=== PATIENT | female | born 1955 | race Caucasian/White ===

== ENCOUNTER 2016-10-14 13:31 | Inpatient (IN) ==
[2016-10-14] MEDS ORDERED: methylPREDNISolone 125 MG/2 ML VIAL IVP ONE (14:06)
[2016-10-14] MEDS ORDERED: Ipratropium/Albuterol Neb 3 ML IH ONE (14:06)
--- NOTE | 2016-10-14 14:07 | Emergency Department Note ---
Disposition Clinical Impression: Acute exacerbation of chronic obstructive airways disease, Hilar mass Disposition: Admitted As Inpatient Referrals: Lilibeth Templeton CNP [Primary Care Provider] - Forms: ED Satisfaction Letter SOB HPI - General Chief Complaint: ED Shortness of Breath/Dyspnea Stated Complaint: NOHELIA Time Seen by Provider: 10/14/16 13:41 Source: patient Limitations: no limitations Nursing Notes Reviewed: Yes Vital Signs Reviewed: Yes - History of Present Illness Patient is a 60-year-old female with a history of severe COPD chronic oxygen dependency is coming in for increased shortness of breath. She has had multiple episodes of acute bronchitis this year already she recently saw her PCP a week ago. She has oxygen at home nebulizer she still complaining of wheezing and shortness of breath. She has difficulty ambulating due to the dyspnea. She does continue to smoke minimally. She follows with pulmonology Dr. Corbin. She denies any fevers chills or productive sputum or hemoptysis. Nebulizers and rest oxygen all help exertion makes symptoms worse - Related Data Home Medications Medication Instructions Recorded Confirmed Cymbalta 02/15/16 02/15/16 TraZODone 02/15/16 Melatonin 05/02/16 Previous Rx's Medication Instructions Recorded Albuterol Neb [Proventil Neb] 2.5 mg IH QID 2 Days 05/02/16 Albuterol Sulfate [Albuterol 2 puff IH QID 2 Days 05/02/16 Inhaler] Levofloxacin [Levaquin] 750 mg PO DAILY #10 tablet 05/02/16 levoFLOXacin [Levaquin] 500 mg PO DAILY #7 tablet 05/22/16 predniSONE [PredniSONE] 20 mg PO TID #20 tablet 05/22/16 HYDROcodone/Acet 5/325 mg [Coldiron 1 - 2 tab PO Q6H PRN #15 tab 09/23/16 5-325 mg] Allergies Allergy/AdvReac Type Severity Reaction Status Date / Time No Known Allergies Allergy Verified 10/14/16 13:33 All systems ED: reviewed and negative except as stated. Constitutional: Reports: weakness. Denies: fever, chills Respiratory: Reports: dyspnea Past Medical History - Past Medical History Source: patient, old records reviewed, obtained from family, nursing notes reviewed Medical history: Reports: COPD Psychiatric history: Reports: anxiety, depression - Social History Smoking Status: Current every day smoker Smokeless Tobacco Status: No Alcohol use: Reports: none Drug use: Reports: none Physical Exam - General Limitations: no limitations General appearance: alert - Head Head exam: atraumatic, normocephalic, normal inspection - Eye Eye exam: Present: normal appearance, PERRL, EOMI - Expanded Eye Exam Pupils: Left: reactive - ENT ENT exam: normal exam, normal oropharynx, mucous membranes moist - Expanded ENT Exam External ear exam: Present: normal external inspection Mouth exam: Present: normal external inspection Teeth exam: Present: normal inspection Throat exam: Present: normal inspection - Neck Neck exam: Present: normal inspection, full ROM, trachea midline - Chest Chest inspection: Present: normal inspection, symmetric chest wall rise - Respiratory Respiratory exam: Present: respiratory distress (Mild tachypneic), wheezes ( Standard end expiratory), accessory muscle use, prolonged expiratory phase - Cardiovascular Cardiovascular exam: Present: regular rate, normal rhythm, normal heart sounds - Abdominal Exam Abdominal exam: Present: soft, Non-Tender. Absent: tenderness, distention, guarding, rebound, rigidity - Extremities Exam Extremities exam: Present: normal inspection, full ROM. Absent: tenderness, pedal edema - Expanded Upper Extremity Exam Shoulder exam: Present: normal inspection, full ROM Arm exam: Present: normal inspection, full ROM Elbow exam: Present: normal inspection, full ROM Forearm/Wrist exam: Present: normal inspection, full ROM Hand exam: Present: normal inspection, full ROM Vascular exam: Normal: capillary refill, radial pulse - Expanded Lower Extremity Exam Hip/Pelvis exam: Present: normal inspection, full ROM Upper leg exam: Present: normal inspection, full ROM Knee exam: Present: normal inspection, full ROM Lower leg exam: Present: normal inspection, full ROM Ankle exam: Present: normal inspection, full ROM Foot/toe exam: Present: normal inspection, full ROM Neurovascular/Tendon exam: Absent: motor deficit, sensory deficit, tendon deficit - Back Exam Back exam: Present: normal inspection, full ROM. Absent: tenderness - Neurological Exam Neurological exam: Present: alert, oriented X3 - Expanded Neurological Exam Patient oriented to: Present: person, place, time Coma Scale Eye Opening: Spontaneous Coma Scale Motor Response: Obeys Commands Coma Scale Verbal Response: Oriented Coma Scale Total: 15 - Psychiatric Psychiatric exam: Present: normal affect, normal mood - Skin Skin exam: Present: warm, dry, intact, normal color Course - Reevaluation(s) Reevaluation #1: Patient has a moderate response to nebulizers she is resting more comfortable at this time she is not And is able to speak in full sentences. He reviewed her CT scan for lung cancer screening 01/16/2016 which was negative. She had a persistent area in the right hilum. A CT scan today which does show a mass. I discussed with the patient this will need a biopsy. Time: 16:00 Vital Signs Temperature 98.2 F 10/14/16 13:33 Pulse Rate 106 10/14/16 13:33 Respiratory Rate 20 10/14/16 13:33 Blood Pressure 139/75 10/14/16 13:33 O2 Sat by Pulse Oximetry 95 10/14/16 13:33 Temperature 98.2 F 10/14/16 13:33 Pulse Rate 106 10/14/16 13:33 Respiratory Rate 24 10/14/16 14:14 Blood Pressure 164/94 10/14/16 14:14 O2 Sat by Pulse Oximetry 97 10/14/16 14:14 Oxygen Delivery Oxygen Delivery Room Air Shortness of Breath/Dyspnea - Lab Data Result diagrams: 10/14/16 14:26 10/14/16 14:26 Lab Results 10/14/16 10/14/16 10/14/16 Range/Units 14:26 14:26 14:26 WBC 15.5 H (4.3-11.1) K/mcL RBC 4.49 (3.82-4.97) M/mcL Hgb 13.3 (11.5-15.4) g/dL Hct 39.4 (35.3-44.9) % MCV 87.8 (83.0-100.0) fL MCH 29.6 (28.0-33.3) pg MCHC 33.8 (31.6-35.5) g/dL RDW 12.6 (11.5-14.5) % Plt Count 393 (140-400) K/mcL MPV 8.7 L (9.4-12.4) fL Immature Gran % 0.4 (0-4) % Seg Neutrophils % 67.8 % Lymphocytes % 23.7 % Monocytes % 7.0 % Eosinophils % 1.0 % Basophils % 0.1 % Neutrophils # 10.5 H (1.6-8.9) K/mcL Lymphocytes # 3.7 (0.6-4.6) K/mcL Monocytes # 1.1 (0.0-1.3) K/mcL Eosinophils # 0.2 (0.0-0.6) K/mcL Basophils # 0.0 (0.0-0.2) K/mcL Immature Plt Fraction 2.1 (1.1-6.1) % PT 10.1 (9.4-12.1) Seconds INR 0.9 APTT 22.9 L (26.0-36.0) Seconds Sodium 127 L (136-145) mEq/L Potassium 3.3 L (3.5-4.5) mEq/L Chloride 93 L (98-109) mEq/L Carbon Dioxide 25 (19-29) mEq/L BUN 7 (7-20) mg/dL Creatinine 0.64 (0.57-1.11) mg/dL Est GFR ( Amer) > 60 (> 60) Est GFR (Non-Af Amer) > 60 (> 60) BUN/Creatinine Ratio 11 (6-26) Glucose 95 (70-99) mg/dL Calculated Osmolality 262 L (280-300) Lactic Acid (0.5-2.2) mmol/L Calcium 8.8 (8.6-10.8) mg/dL Troponin I (0-0.03) ng/mL B-Natriuretic Peptide (0-100) pg/mL 10/14/16 10/14/16 10/14/16 Range/Units 14:26 14:26 14:26 WBC (4.3-11.1) K/mcL RBC (3.82-4.97) M/mcL Hgb (11.5-15.4) g/dL Hct (35.3-44.9) % MCV (83.0-100.0) fL MCH (28.0-33.3) pg MCHC (31.6-35.5) g/dL RDW (11.5-14.5) % Plt Count (140-400) K/mcL MPV (9.4-12.4) fL Immature Gran % (0-4) % Seg Neutrophils % % Lymphocytes % % Monocytes % % Eosinophils % % Basophils % % Neutrophils # (1.6-8.9) K/mcL Lymphocytes # (0.6-4.6) K/mcL Monocytes # (0.0-1.3) K/mcL Eosinophils # (0.0-0.6) K/mcL Basophils # (0.0-0.2) K/mcL Immature Plt Fraction (1.1-6.1) % PT (9.4-12.1) Seconds INR APTT (26.0-36.0) Seconds Sodium (136-145) mEq/L Potassium (3.5-4.5) mEq/L Chloride (98-109) mEq/L Carbon Dioxide (19-29) mEq/L BUN (7-20) mg/dL Creatinine (0.57-1.11) mg/dL Est GFR ( Amer) (> 60) Est GFR (Non-Af Amer) (> 60) BUN/Creatinine Ratio (6-26) Glucose (70-99) mg/dL Calculated Osmolality (280-300) Lactic Acid 0.7 (0.5-2.2) mmol/L Calcium (8.6-10.8) mg/dL Troponin I 0.00 (0-0.03) ng/mL B-Natriuretic Peptide 15 (0-100) pg/mL
[2016-10-14 14:38] LABS: Basophils % 0.1 %; Eosinophils # 0.2 K/mcL (0.0-0.6); Hematocrit 39.4 % (35.3-44.9); Hemoglobin 13.3 g/dL (11.5-15.4); Immature Granulocytes % 0.4 % (0-4); Immature Platelets 2.1 % (1.1-6.1); Lymphocytes # 3.7 K/mcL (0.6-4.6); Lymphocytes % 23.7 %; Mean Corpuscular HGB Conc 33.8 g/dL (31.6-35.5); Mean Corpuscular Hemoglobin 29.6 pg (28.0-33.3); Mean Corpuscular Volume 87.8 fL (83.0-100.0); Mean Platelet Volume 8.7 fL (9.4-12.4); Monocytes # 1.1 K/mcL (0.0-1.3); Neutrophils # 10.5 K/mcL (1.6-8.9); Platelet Count 393 K/mcL (140-400); Red Blood Count 4.49 M/mcL (3.82-4.97); Red Cell Distribution Width 12.6 % (11.5-14.5); Segmented Neutrophils % 67.8 %
[2016-10-14 14:42] LABS: INR 0.9; Prothrombin Time 10.1 Seconds (9.4-12.1)
[2016-10-14 14:45] LABS: Activated Partial Thrombo Time 22.9 Seconds (26.0-36.0)
[2016-10-14 14:49] LABS: BUN/Creatinine Ratio 11 (6-26); Blood Urea Nitrogen 7 mg/dL (7-20); Calcium 8.8 mg/dL (8.6-10.8); Carbon Dioxide 25 mEq/L (19-29); Chloride 93 mEq/L (98-109); Glucose 95 mg/dL (70-99); Osmolality,Calculated 262 (280-300); Potassium 3.3 mEq/L (3.5-4.5); Sodium 127 mEq/L (136-145); eGFR For African Americans > 60 (> 60); eGFR For Non-African Americans > 60 (> 60)
[2016-10-14] MEDS ORDERED: Levofloxacin 750 MG/150 ML 750 MG/150 ML BAG IVPB ONE (15:42)
[2016-10-14] MEDS ORDERED: Acetaminophen 325 MG TABLET PO PRN (17:04)
[2016-10-14] MEDS ORDERED: Naloxone 0.4 MG/ML INJ IVP PRN (17:04)
[2016-10-14] MEDS ORDERED: Nicotine 21 MG PATCH.TD24 TD STA (17:21)
--- NOTE | 2016-10-14 17:45 | Internal Med History&Physical ---
<Kylah Salinas M - Last Filed: 10/14/16 19:20> Date of Encounter: 10/14/16 Time of Encounter: 17:43 Assessment and Plan (1) Acute exacerbation of chronic obstructive airways disease Current visit: Yes Status: Acute Patient reports she's been having breathing trouble for several weeks now, and she's been treated with Levaquin for pneumonia as an outpatient. Yesterday she had increased shortness of breath. CXR shows right hilar enlargement progressed from May. CT Chest shows large right hilar mass. WBC elevated at 15.5. On exam, she is tachypnic with increased work of breathing. Solumedrol 125mg IVP given in ED, continue with 60mg IVP TID Levaquin daily duonebs QID albuterol nebulizer Q2hr PRN Budesonide/formotorol BID continue home dose of Spiriva Bipap and titrate O2 to maintain saturation > 92% (2) Acute and chronic respiratory failure Current visit: Yes Status: Acute Patient wears 2L oxygen at night and prn at home, she has increased oxygen requirements, and we are placing her on bipap for her increased work of breathing and tachypnea. ABG does not demonstrate significant abnormality. Treat her COPD exacerbation with steroids, breathing treatments and antibiotics. Titrate oxygen. Qualifiers: Respiratory failure complication: hypoxia Qualified Code(s): J96.21 - Acute and chronic respiratory failure with hypoxia (3) Hyponatremia Current visit: Yes Status: Acute sodium of 127, which is new for her. With new hilar mass seen on CT concern that hyponatremia is caused by malignancy. Will get urine chemistry to further evaluate. (4) Hilar mass Current visit: Yes Status: Acute CXR showed right hilar enlargement progressed from previous study in May. CT of the chest showed large right hilar mass measuring 5.3 x 3.6 concerning for malignancy with subcarinal adenopathy. Consult to pulmonology for possible biopsy, will need to be called in the morning. (5) Smoking Current visit: Yes Status: Acute Patient continues to smoke despite COPD diagnosis. Discussed smoking cessation and offered encouragement. Smoking cessation education and nicotine patch ordered. (6) DVT prophylaxis Current visit: Yes Status: Acute Internal Medicine - H&P: HPI Chief complaint: shortness of breath Admitted From: Emergency Dept Plans for Post Hospital Care: Home History of present illness: Ms. Strausbaugh is a 60 year old female pe, who presents to the emergency department today with worsening shortness of breath. Patient reports she has been having breathing troubles for several weeks now, and despite on nebulizer treatments she continues to feel worse today which prompted her to come to the emergency department. She reports occasional lightheadedness, occasional coughing, not very productive, occasional nausea. She denies any headache, chest pain, palpitations, vomiting, abdominal pain, diarrhea. She reports chills and sweats. Evaluation in emergency department revealed elevated white blood cell count of 15.5. Hyponatremia with sodium of 127 which is new. Lactate was normal at 0.7, troponin was normal 0.00, BNP was normal at 15. Chest x-ray showed right hilar enlargement which has progressed from May. CT of the chest showed large right hilar mass measuring 5.3 x 3.6 concerning for malignancy with subcarinal adenopathy. On exam, patient is tachypneic with increased work of breathing. She is alert and oriented, her lungs have scattered wheezes and rhonchi. Heart has regular rate and rhythm. Abdomen soft nontender positive bowel sounds. No peripheral edema. Past Med Surg Social Fam HX - Past Medical History Medical history: COPD Psychiatric history: anxiety, depression - Social History Smoking Status: Current every day smoker Smokeless Tobacco Status: No Alcohol use: none Drug use: none - Family History Sister Living Status: Still Living Hx Family Cancer: Yes (cervical cancer) Internal Medicine - H&P: Meds DULoxetine [Cymbalta] 30 mg PO HS 02/15/16 [History] Trazodone HCl 200 mg PO HS 02/15/16 [History] Melatonin/Pyridoxine HCl (B6) [Melatonin 3 mg Tablet] 3 mg PO HS 05/02/16 [ History] Albuterol Neb [Proventil Neb] 2.5 mg IH Q6H PRN 10/14/16 [History] Albuterol Sulfate [Albuterol Inhaler] 2 puff IH Q6H PRN 10/14/16 [History] BuPROPion XL (24 HR) [Wellbutrin XL] 150 mg PO DAILY 10/14/16 [History] Budesonide/Formoterol 160/4.5 [Symbicort 160/4.5] 2 puff IH BIDR 10/14/16 [ History] Oxygen 2 l .ROUTE AD 10/14/16 [History] Tiotropium [Spiriva] 18 mcg IH DAILY 10/14/16 [History] 3 Allergy/AdvReac Type Severity Reaction Status Date / Time No Known Allergies Allergy Verified 10/14/16 13:33 All Systems PM: A 10-system review of systems was performed and is negative for pertinent findings except as documented above in the HPI. - Constitutional Constitutional: chills, night sweats, no fever(s) - EENT Eyes: no change in vision, no discharge, no pain, no photophobia Ears: no ear discharge, no ear pain, no tinnitus Nose, mouth and throat: no dysphagia, no nasal discharge, no neck pain, no sore throat - Cardiovascular Cardiovascular ROS IM: dyspnea, lightheadedness, no chest pain, no diaphoresis, no palpitations, no syncope - Respiratory Respiratory: cough, dyspnea, wheezing, no excessive phlegm production - Gastrointestinal Gastrointestinal: nausea, no abdominal pain, no diarrhea, no hematemesis, no hematochezia, no melena, no vomiting - Genitourinary Genitourinary: no change in urinary stream, no dysuria, no flank pain, no hematuria - Musculoskeletal Musculoskeletal ROS IM: no numbness, no tingling - Integumentary Integumentary IM: no rash, no unusual bruising - Neurological Neurological ROS: no confusion, no convulsions, no focal weakness, no numbness, no tingling, no tremor(s) - Hematologic/Lymphatic Hematologic/Lymphatic: no easy bruising - Constitutional Vitals: Temp Pulse Resp BP Pulse Ox 98.2 F 91 18 158/85 93 10/14/16 13:33 10/14/16 16:30 10/14/16 17:13 10/14/16 17:13 10/14/16 16:30 General appearance: Present: mild distress, A&O X 3 - Head Head exam: Present: atraumatic, normocephalic - Eye Eye exam: Present: PERRL, conjuntiva pink, sclera anicteric Pupils: Present: PERRL - Neck Neck exam general surgery: Present: supple, trachea midline. Absent: lymphadenopathy - Respiratory Respiratory exam: Present: accessory muscle use, rhonchi, wheezes, tachypnea. Absent: rales - Cardiovascular Cardiovascular exam: Present: RRR, +S1, +S2. Absent: diastolic murmur, gallop, rubs, systolic murmur - GI/Abdominal GI/Abdominal exam: Present: normal bowel sounds, soft, no peritoneal signs. Absent: distended, tenderness - Extremities Exam Extremities exam: Present: warm, radial pulses palpable and symmetrical. Absent : calf tenderness, cyanotic, pedal edema - Neurological Exam Neurological exam: Present: CN II-XII intact, oriented X3, no focal deficits. Absent: facial droop, speech deficit - Skin Skin exam: Present: dry, intact Internal Med - H&P Results - Labs CBC & Chem 7: 10/14/16 14:26 10/14/16 14:26 Labs: All Lab Results (24 Hours) 10/14/16 10/14/16 10/14/16 Range/Units 14:26 14:26 14:26 WBC 15.5 H (4.3-11.1) K/mcL RBC 4.49 (3.82-4.97) M/mcL Hgb 13.3 (11.5-15.4) g/dL Hct 39.4 (35.3-44.9) % MCV 87.8 (83.0-100.0) fL MCH 29.6 (28.0-33.3) pg MCHC 33.8 (31.6-35.5) g/dL RDW 12.6 (11.5-14.5) % Plt Count 393 (140-400) K/mcL MPV 8.7 L (9.4-12.4) fL Immature Gran % 0.4 (0-4) % Seg Neutrophils % 67.8 % Lymphocytes % 23.7 % Monocytes % 7.0 % Eosinophils % 1.0 % Basophils % 0.1 % Neutrophils # 10.5 H (1.6-8.9) K/mcL Lymphocytes # 3.7 (0.6-4.6) K/mcL Monocytes # 1.1 (0.0-1.3) K/mcL Eosinophils # 0.2 (0.0-0.6) K/mcL Basophils # 0.0 (0.0-0.2) K/mcL Immature Plt Fraction 2.1 (1.1-6.1) % PT 10.1 (9.4-12.1) Seconds INR 0.9 APTT 22.9 L (26.0-36.0) Seconds Sodium 127 L (136-145) mEq/L Potassium 3.3 L (3.5-4.5) mEq/L Chloride 93 L (98-109) mEq/L Carbon Dioxide 25 (19-29) mEq/L BUN 7 (7-20) mg/dL Creatinine 0.64 (0.57-1.11) mg/dL Est GFR ( Amer) > 60 (> 60) Est GFR (Non-Af Amer) > 60 (> 60) BUN/Creatinine Ratio 11 (6-26) Glucose 95 (70-99) mg/dL Calculated Osmolality 262 L (280-300) Lactic Acid (0.5-2.2) mmol/L Calcium 8.8 (8.6-10.8) mg/dL Troponin I (0-0.03) ng/mL B-Natriuretic Peptide (0-100) pg/mL 10/14/16 10/14/16 10/14/16 Range/Units 14:26 14:26 14:26 WBC (4.3-11.1) K/mcL RBC (3.82-4.97) M/mcL Hgb (11.5-15.4) g/dL Hct (35.3-44.9) % MCV (83.0-100.0) fL MCH (28.0-33.3) pg MCHC (31.6-35.5) g/dL RDW (11.5-14.5) % Plt Count (140-400) K/mcL MPV (9.4-12.4) fL Immature Gran % (0-4) % Seg Neutrophils % % Lymphocytes % % Monocytes % % Eosinophils % % Basophils % % Neutrophils # (1.6-8.9) K/mcL Lymphocytes # (0.6-4.6) K/mcL Monocytes # (0.0-1.3) K/mcL Eosinophils # (0.0-0.6) K/mcL Basophils # (0.0-0.2) K/mcL Immature Plt Fraction (1.1-6.1) % PT (9.4-12.1) Seconds INR APTT (26.0-36.0) Seconds Sodium (136-145) mEq/L Potassium (3.5-4.5) mEq/L Chloride (98-109) mEq/L Carbon Dioxide (19-29) mEq/L BUN (7-20) mg/dL Creatinine (0.57-1.11) mg/dL Est GFR ( Amer) (> 60) Est GFR (Non-Af Amer) (> 60) BUN/Creatinine Ratio (6-26) Glucose (70-99) mg/dL Calculated Osmolality (280-300) Lactic Acid 0.7 (0.5-2.2) mmol/L Calcium (8.6-10.8) mg/dL Troponin I 0.00 (0-0.03) ng/mL B-Natriuretic Peptide 15 (0-100) pg/mL 10/14/16 Range/Units 17:18 WBC (4.3-11.1) K/mcL RBC (3.82-4.97) M/mcL Hgb (11.5-15.4) g/dL Hct (35.3-44.9) % MCV (83.0-100.0) fL MCH (28.0-33.3) pg MCHC (31.6-35.5) g/dL RDW (11.5-14.5) % Plt Count (140-400) K/mcL MPV (9.4-12.4) fL Immature Gran % (0-4) % Seg Neutrophils % % Lymphocytes % % Monocytes % % Eosinophils % % Basophils % % Neutrophils # (1.6-8.9) K/mcL Lymphocytes # (0.6-4.6) K/mcL Monocytes # (0.0-1.3) K/mcL Eosinophils # (0.0-0.6) K/mcL Basophils # (0.0-0.2) K/mcL Immature Plt Fraction (1.1-6.1) % PT (9.4-12.1) Seconds INR APTT (26.0-36.0) Seconds Sodium (136-145) mEq/L Potassium (3.5-4.5) mEq/L Chloride (98-109) mEq/L Carbon Dioxide (19-29) mEq/L BUN (7-20) mg/dL Creatinine (0.57-1.11) mg/dL Est GFR ( Amer) (> 60) Est GFR (Non-Af Amer) (> 60) BUN/Creatinine Ratio (6-26) Glucose (70-99) mg/dL Calculated Osmolality (280-300) Lactic Acid 0.7 (0.5-2.2) mmol/L Calcium (8.6-10.8) mg/dL Troponin I (0-0.03) ng/mL B-Natriuretic Peptide (0-100) pg/mL - Diagnostic Studies Chest x-ray Additional comments: Chest X-Ray 10/14/16 14:06 IMPRESSION: Right hilar enlargement progressed from 05/22/2016. RECOMMENDATION: Further evaluation with CT chest. D/ / Eduard Gutiérrez MD / Eduard Gutiérrez MD Interpreting Provider: Eduard Gutiérrez MD CT scan - chest Additional comments: Chest CT 10/14/16 14:55 IMPRESSION: Large right hilar mass measuring approximately 5.3 cm x 3.6 cm concerning for malignancy with subcarinal adenopathy. Linear mass seen extending away from the right hilar region into the right middle lobe measuring 3.2 cm x 1.1 cm. COPD. D/ / 10/14/2016 15:31:57 Eduard Lee MD / fili Interpreting Provider: Eduard Lee MD <Marisa New - Last Filed: 10/15/16 07:50> Date of Encounter: 10/14/16 Time of Encounter: 18:20 Internal Medicine - H&P: HPI History of present illness: Ms. Keenan is a 60 year old female All Systems PM: A 10-system review of systems was performed and is negative for pertinent findings except as documented above in the HPI. - Constitutional Vitals: Temp Pulse Resp BP Pulse Ox 97.8 F 95 18 177/83 96 10/15/16 07:11 10/15/16 07:11 10/15/16 07:11 10/15/16 07:11 10/15/16 07:11 Internal Med - H&P Results - Labs CBC & Chem 7: 10/15/16 05:06 10/15/16 05:06 Labs: Short CBC 10/15/16 Range/Units 05:06 WBC 4.1 L D (4.3-11.1) K/mcL Hgb 13.0 (11.5-15.4) g/dL Hct 36.9 (35.3-44.9) % Plt Count 318 (140-400) K/mcL Neutrophils # 3.4 (1.6-8.9) K/mcL BMP 10/15/16 05:06 Sodium 123 L Potassium 4.0 Chloride 90 L Carbon Dioxide 23 BUN 7 Creatinine 0.65 Glucose 123 H Calcium 8.9 Urine 10/14/16 Range/Units 18:40 Urine Color Yellow (Yellow) Urine Clarity Cloudy A (Clear) Urine pH 7.5 (5.0-8.0) pH Units Ur Specific [place] 1.020 (1.010-1.025) Urine Protein Negative (Neg-Trace) mg/dL Urine Glucose (UA) Normal (Normal) mg/dL - ABG Interpretation ABG results: 10/14/16 18:54 ABG pH 7.43 ABG pCO2 40 ABG pO2 88 ABG HCO3 26.5 ABG Total CO2 27.7 H ABG O2 Saturation 97 ABG Base Excess 2.0 - Attending Attestation Pt independently seen and examined at bedside. Admitted for acute exacerbation of COPD. Noted to have new right hilar mass concerning for malignancy and with associated Hyponatremia. Will obtain pulmonary evaluation for further evaluation and possible biopsy. continue systemic steroids, bronchodilator support, O2 supplementation, bipap support as needed. IV fluids, closely monitor hyponatremia. Case discussed with OMA Salinas, I agree with her documented findings, assessment, and plan except as listed above.
[2016-10-14] MEDS: Albuterol 2.5 MG/3 ML NEBULIZER IH PRN (18:05)
[2016-10-14 18:51] LABS: Bilirubin,Urine Negative (Negative); Blood,Urine Negative (Negative); Clarity,Urine Cloudy (Clear); Color,Urine Yellow (Yellow); Glucose,Urine (UA) Normal (Normal); Ketones,Urine Trace mg/dL (Negative); Leukocyte Esterase,Urine Negative (Negative); Nitrite,Urine Negative (Negative); PH,Urine 7.5 pH Units (5.0-8.0); Protein,Urine Negative (Neg-Trace); Urobilinogen,Urine Normal (Normal)
[2016-10-14 18:58] LABS: Amorphous Sediment,Urine Few (Few); Bacteria,Urine Many per hpf (None-Few); Squamous Epithelial Cell,Urine Few per lpf (None-Few); WBC,Urine 0-3 per hpf (0-3)
[2016-10-14 19:01] LABS: ABG HCO3 26.5 mEQ/L (21-27); ABG Oxygen Saturation 97 % (95-98); ABG PCO2 40 mmHg (35-45); ABG PH 7.43 pH Units (7.32-7.45); ABG PO2 88 mmHg (85-104); ABG TCO2 27.7 mEq/L (20-26); Blood Gas FiO2 30 %
[2016-10-14] MEDS ORDERED: *HR* LORazepam 2 MG/ML VIAL IVP PRN (19:19)
[2016-10-14] MEDS: traZODone 50 MG TABLET PO SCH (20:04)
[2016-10-14] MEDS: Budesonide/Formoterol 160/4.5 MDI IH SCH (22:01)
[2016-10-14] MEDS: Ipratropium/Albuterol Neb 3 ML IH SCH (22:01)
[2016-10-14] MEDS: methylPREDNISolone 125 MG/2 ML VIAL IVP SCH (23:43)
[2016-10-14] MEDS: *HR* Heparin 5,000 UNIT/ML VIAL SQ SCH (23:43)
[2016-10-15] MEDS: Ipratropium/Albuterol Neb 3 ML IH SCH ×5 (04:08→23:53)
[2016-10-15 05:20] LABS: Hematocrit 36.9 % (35.3-44.9); Immature Granulocytes % 0.2 % (0-4); Lymphocytes # 0.6 K/mcL (0.6-4.6); Lymphocytes % 13.8 %; Mean Corpuscular HGB Conc 35.2 g/dL (31.6-35.5); Mean Corpuscular Hemoglobin 30.8 pg (28.0-33.3); Mean Corpuscular Volume 87.4 fL (83.0-100.0); Mean Platelet Volume 8.7 fL (9.4-12.4); Monocytes # 0.1 K/mcL (0.0-1.3); Monocytes % 2.2 %; Neutrophils # 3.4 K/mcL (1.6-8.9); Platelet Count 318 K/mcL (140-400); Red Blood Count 4.22 M/mcL (3.82-4.97); Red Cell Distribution Width 12.4 % (11.5-14.5); Segmented Neutrophils % 83.8 %
[2016-10-15 05:38] LABS: BUN/Creatinine Ratio 11 (6-26); Blood Urea Nitrogen 7 mg/dL (7-20); Calcium 8.9 mg/dL (8.6-10.8); Carbon Dioxide 23 mEq/L (19-29); Chloride 90 mEq/L (98-109); Glucose 123 mg/dL (70-99); Osmolality,Calculated 255 (280-300); Sodium 123 mEq/L (136-145); eGFR For African Americans > 60 (> 60); eGFR For Non-African Americans > 60 (> 60)
[2016-10-15] MEDS: 0.9 % Sodium Chloride 1,000 ML IVC SCH (08:23)
[2016-10-15] MEDS: methylPREDNISolone 125 MG/2 ML VIAL IVP SCH ×2 (08:23→16:07)
[2016-10-15] MEDS: Levofloxacin 750 MG/150 ML 750 MG/150 ML BAG IVPB SCH (08:24)
[2016-10-15] MEDS: BuPROPion XL (24 HR) 150 MG TABLET PO SCH (08:24)
[2016-10-15] MEDS: *HR* Heparin 5,000 UNIT/ML VIAL SQ SCH ×2 (08:24→16:07)
[2016-10-15] MEDS ORDERED: Tiotropium 18 MCG inhalation IH SCH (09:00)
[2016-10-15] MEDS: Budesonide/Formoterol 160/4.5 MDI IH SCH ×2 (10:57→20:12)
--- NOTE | 2016-10-15 11:14 | Pulmonology Consult Note ---
Date of Encounter: 10/15/16 Time of Encounter: 10:45 Assessment and Plan (1) Acute exacerbation of chronic obstructive airways disease Current Visit: Yes Status: Acute Patient is being treated with COPD exacerbation and needs systemic steroid to be continued with empiric antibiotics and bronchodilators. Keep SPO2 around 90% . (2) Hilar mass Current Visit: Yes Status: Acute Patient stated this is first time she knows about the lung mass which is very suspicious for malignancies due to her strong history of smoking tobacco. I have discussed with primary team due to the COPD exacerbation it is recommended not to do any procedures and once her symptoms under control then it can be done even as outpatient. Please call when patient is ready to be discharged home to arrange this for her as outpatient. (3) Smoking Current Visit: Yes Status: Chronic Patient stated she will quit smoking. (4) Acute and chronic respiratory failure Current Visit: Yes Status: Acute Qualifiers: Respiratory failure complication: hypoxia Qualified Code(s): J96.21 - Acute and chronic respiratory failure with hypoxia History of Present Illness Consult date: 10/15/16 Requesting physician: Marisa New Reason for consult: COPD, lung mass Chief complaint: Shortness of breath History of present illness: This is a very pleasant 60-year-old female with significant history of advanced COPD and she is on long-term oxygen therapy at home, unfortunately should continue to smoke tobacco and she was having more shortness of breath with productive cough and sputum, but denies the any weight loss or fever or chills. She also denies any hemoptysis and was found to have a hilar mass and pulmonary was consulted. Patient also has broken her right upper extremity after she tripped on her oxygen think according to the patient. Past Med Surg Social Fam HX - Past Medical History Medical history: COPD Psychiatric history: anxiety, depression - Past Surgical History Surgical History: hysterectomy - Social History Smoking Status: Current every day smoker Packs per day: 1.5 Smokeless Tobacco Status: No Alcohol use: none Drug use: none - Family History Sister Living Status: Still Living Hx Family Cancer: Yes (cervical cancer) Medications and Allergies DULoxetine [Cymbalta] 30 mg PO HS 02/15/16 [History] Trazodone HCl 200 mg PO HS 02/15/16 [History] Melatonin/Pyridoxine HCl (B6) [Melatonin 3 mg Tablet] 3 mg PO HS 05/02/16 [ History] Albuterol Neb [Proventil Neb] 2.5 mg IH Q6H PRN 10/14/16 [History] Albuterol Sulfate [Albuterol Inhaler] 2 puff IH Q6H PRN 10/14/16 [History] BuPROPion XL (24 HR) [Wellbutrin XL] 150 mg PO DAILY 10/14/16 [History] Budesonide/Formoterol 160/4.5 [Symbicort 160/4.5] 2 puff IH BIDR 10/14/16 [ History] Oxygen 2 l .ROUTE AD 10/14/16 [History] Tiotropium [Spiriva] 18 mcg IH DAILY 10/14/16 [History] 3 Allergy/AdvReac Type Severity Reaction Status Date / Time No Known Allergies Allergy Verified 10/14/16 13:33 All Systems: A 10-system review of systems was performed and is negative for pertinent findings except as documented above in the HPI. Physical Examination Vital Signs: Vital Signs, Last 4 Hours Temp Pulse Resp BP Pulse Ox 10/15/16 11:05 97.0 F L 100 16 161/83 98 10/15/16 11:00 22 95 10/15/16 08:15 96 General appearance: other (Patient looks chronically ill) Eyes: nonicteric ENT: oropharynx dry Mallampati (class): 2 Neck: supple, no lymphadenopathy Effort: mildly labored Inspection: hyperextended Auscultation: bilateral: rales Percussion: bilateral: not dull Cardiovascular: regular rate and rhythm Gastrointestinal: normoactive bowel sounds, non-distended Integumentary: rash, erythema Extremities: no edema, other (Right lower extremity with limited range of motion from fracture) normal mental status, non-focal exam mood appropriate Results - Laboratory Findings CBC and BMP: 10/15/16 05:06 10/15/16 05:06 ABG ABG pH 7.43 pH Units (7.32-7.45) 10/14/16 18:54 ABG pCO2 40 mmHg (35-45) 10/14/16 18:54 ABG pO2 88 mmHg (85-104) 10/14/16 18:54 ABG O2 Saturation 97 % (95-98) 10/14/16 18:54 PT/INR, D-dimer PT 10.1 Seconds (9.4-12.1) 10/14/16 14:26 Abnormal lab findings: Abnormal lab results WBC 4.1 K/mcL (4.3-11.1) L D 10/15/16 05:06 MPV 8.7 fL (9.4-12.4) L 10/15/16 05:06 APTT 22.9 Seconds (26.0-36.0) L 10/14/16 14:26 ABG Total CO2 27.7 mEq/L (20-26) H 10/14/16 18:54 Sodium 123 mEq/L (136-145) L 10/15/16 05:06 Chloride 90 mEq/L (98-109) L 10/15/16 05:06 Glucose 123 mg/dL (70-99) H 10/15/16 05:06 Calculated Osmolality 255 (280-300) L 10/15/16 05:06 Urine Clarity Cloudy (Clear) A 10/14/16 18:40 Urine Ketones Trace mg/dL (Negative) H 10/14/16 18:40 Urine Bacteria Many per hpf (None-Few) H 10/14/16 18:40 - Diagnostic Findings CT scan - chest: report reviewed, image reviewed - Clinical Findings Intake & Output: Intake & Output 10/14/16 10/15/16 10/15/16 23:59 07:59 15:59 Intake Total 0 / 0 120 / 120 Output Total 100 / 100 Balance 0 / 0 20 / 20 Weight 66.723 kg Consult Discharge Plan - Plan Referrals: Lilibeth Templeton, CYBER ANALYST [Primary Care Provider] -
--- NOTE | 2016-10-15 14:18 | Internal Med Progress Note ---
Date of Encounter: 10/15/16 Time of Encounter: 09:30 - Assessment and plan (1) Hilar mass Current Visit: Yes Status: Acute Assessment and plan: Imaging consistent with 2 new lung masses-strongly suspicious for lung cancer. Right hilar mass 5.3 cm x 3.6 cm and right middle lobe mass 3.2 cm x 1.1 cm. Of note, chest CT from 01/16/16 unremarkable for masses. Pulmonology was brought on board recommended treating the patient for COPD exacerbation. She will follow up closely outpatient with pulmonology for biopsy at that time. ITS Impressions Chest X-Ray 10/14/16 14:06 IMPRESSION: Right hilar enlargement progressed from 05/22/2016. RECOMMENDATION: Further evaluation with CT chest. D/ / Eduard Gutiérrez MD / Eduard Gutiérrez MD Interpreting Provider: Eduard Gutiérrez MD Chest CT 10/14/16 14:55 IMPRESSION: Large right hilar mass measuring approximately 5.3 cm x 3.6 cm concerning for malignancy with subcarinal adenopathy. Linear mass seen extending away from the right hilar region into the right middle lobe measuring 3.2 cm x 1.1 cm. COPD. D/ / 10/14/2016 15:31:57 Eduard Lee MD / fili Interpreting Provider: Eduard Lee MD (2) Acute exacerbation of chronic obstructive airways disease Current Visit: Yes Status: Acute Assessment and plan: Patient's shortness of breath has improved slightly. She states that for the 2- 3 weeks prior to presentation, she had increased oxygen need at home. Continue bronchodilators, methylprednisolone, home Symbicort. Holding Spiriva at this time secondary to DuoNeb. Levofloxacin. Will add mucolytics given that she has a coarse, unproductive cough. ABGs unremarkable. She was offered BiPAP overnight but was intolerant. We even offered her IV benzos to try again but she refused stating she is extremely claustrophobic. (3) Acute and chronic respiratory failure Current Visit: Yes Status: Acute Assessment and plan: Patient sitting at home, she was on 2 L per nasal cannula at bedtime only but she states over the past 2-3 weeks prior to presentation, she has had the use 2- 3 L continuously at home. Currently, patient is on 2.5 L continuously. We attempted to apply BIPAP to her she was intolerant. Qualifiers: Respiratory failure complication: hypoxia Qualified Code(s): J96.21 - Acute and chronic respiratory failure with hypoxia (4) Hypertension Current Visit: Yes Status: Acute Assessment and plan: It does not appear as if the patient has a history of hypertension. She is not on antihypertensive medications at home. She has been hypertensive since arrival. Still treating COPD exacerbation, but will add amlodipine and evaluate her response (5) Leukocytosis Current Visit: Yes Status: Resolved Qualifiers: Leukocytosis type: unspecified Qualified Code(s): D72.829 - Elevated white blood cell count, unspecified (6) Hypokalemia Current Visit: Yes Status: Resolved (7) Hyponatremia Current Visit: Yes Status: Acute Assessment and plan: Improving. Associated with hypo-osmolarity likely related to decreased by mouth intake. We will continue to trend. (8) Smoking Current Visit: Yes Status: Chronic Assessment and plan: Patient stating she has stopped smoking. She appears anxious at this time regarding possible new diagnosis of lung cancer. She declined nicotine replacement therapy (9) DVT prophylaxis Current Visit: Yes Status: Acute Assessment and plan: Subcutaneous heparin - Subjective Interval history: Patient seen and examined. On examination, patient is sitting upright in bed conversing with her daughter and her . Patient stating she is still more short of breath than usual but states she is starting to feel better. She is endorsing a normal appetite. - Constitutional Vitals: Temp Pulse Resp BP Pulse Ox 97.0 F L 100 16 161/83 98 10/15/16 11:05 10/15/16 11:05 10/15/16 11:05 10/15/16 11:05 10/15/16 11:05 General appearance: Present: mild distress, A&O X 3, pleasant, answers questions appropriately - Head Head exam: Present: atraumatic, normocephalic - Eye Eye exam: Present: PERRL, conjuntiva pink, sclera anicteric Pupils: Present: PERRL - Neck Neck exam general surgery: Present: supple, trachea midline. Absent: lymphadenopathy - Respiratory Respiratory exam: Present: accessory muscle use, decreased breath sounds, prolonged expiratory phase, respiratory distress (Mild), rhonchi, wheezes. Absent: rales - Cardiovascular Cardiovascular exam: Present: RRR, +S1, +S2. Absent: diastolic murmur, gallop, rubs, systolic murmur - GI/Abdominal GI/Abdominal exam: Present: normal bowel sounds, soft, no peritoneal signs. Absent: distended, tenderness - Extremities Exam Extremities exam: Present: warm, radial pulses palpable and symmetrical. Absent : calf tenderness, cyanotic, pedal edema - Neurological Exam Neurological exam: Present: alert, CN II-XII intact, normal gait, oriented X3, no focal deficits, strengths equal and symetr throughout. Absent: pronater drift, facial droop, speech deficit - Skin Skin exam: Present: dry, intact, pallor, warm Internal Medicine: Result - Labs CBC & Chem 7: 10/15/16 05:06 10/15/16 05:06 Labs: Short CBC 10/15/16 Range/Units 05:06 WBC 4.1 L D (4.3-11.1) K/mcL Hgb 13.0 (11.5-15.4) g/dL Hct 36.9 (35.3-44.9) % Plt Count 318 (140-400) K/mcL Neutrophils # 3.4 (1.6-8.9) K/mcL BMP 10/15/16 05:06 Sodium 123 L Potassium 4.0 Chloride 90 L Carbon Dioxide 23 BUN 7 Creatinine 0.65 Glucose 123 H Calcium 8.9 Urine 10/14/16 Range/Units 18:40 Urine Color Yellow (Yellow) Urine Clarity Cloudy A (Clear) Urine pH 7.5 (5.0-8.0) pH Units Ur Specific Fence 1.020 (1.010-1.025) Urine Protein Negative (Neg-Trace) mg/dL Urine Glucose (UA) Normal (Normal) mg/dL - ABG Interpretation ABG results: ABG ABG pH 7.43 pH Units (7.32-7.45) 10/14/16 18:54 ABG pCO2 40 mmHg (35-45) 10/14/16 18:54 ABG pO2 88 mmHg (85-104) 10/14/16 18:54 ABG O2 Saturation 97 % (95-98) 10/14/16 18:54 PT/INR, D-dimer PT 10.1 Seconds (9.4-12.1) 10/14/16 14:26 - VTE Documentation of Mechanical Device: Graduated compression elastic hosiery Consult Discharge Plan - Plan Referrals: Lilibeth Templeton, STAKE SETTER [Primary Care Provider] -
[2016-10-15] MEDS: amLODIPine 5 MG TABLET PO SCH (16:08)
--- NOTE | 2016-10-15 17:11 | Electrocardiograph Report ---
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
[2016-10-15] MEDS: traZODone 50 MG TABLET PO SCH (20:21)
[2016-10-15] MEDS ORDERED: Simethicone 80 MG TAB.CHEW PO PRN (21:30)
[2016-10-16] MEDS: methylPREDNISolone 125 MG/2 ML VIAL IVP SCH ×4 (00:24→23:14)
[2016-10-16] MEDS: 0.9 % Sodium Chloride 1,000 ML IVC SCH ×2 (00:24→12:00)
[2016-10-16] MEDS: *HR* Heparin 5,000 UNIT/ML VIAL SQ SCH ×4 (00:24→23:14)
[2016-10-16] MEDS: Ipratropium/Albuterol Neb 3 ML IH SCH ×6 (03:24→23:29)
[2016-10-16 06:21] LABS: Hematocrit 37.2 % (35.3-44.9); Hemoglobin 12.7 g/dL (11.5-15.4); Immature Granulocytes % 0.3 % (0-4); Lymphocytes # 0.4 K/mcL (0.6-4.6); Lymphocytes % 5.8 %; Mean Corpuscular HGB Conc 34.1 g/dL (31.6-35.5); Mean Corpuscular Hemoglobin 29.9 pg (28.0-33.3); Mean Corpuscular Volume 87.5 fL (83.0-100.0); Mean Platelet Volume 8.9 fL (9.4-12.4); Monocytes # 0.3 K/mcL (0.0-1.3); Monocytes % 3.4 %; Platelet Count 367 K/mcL (140-400); Red Blood Count 4.25 M/mcL (3.82-4.97); Red Cell Distribution Width 12.4 % (11.5-14.5); Segmented Neutrophils % 90.5 %
[2016-10-16 06:27] LABS: Neutrophils # 6.9 K/mcL (1.6-8.9)
[2016-10-16 06:33] LABS: BUN/Creatinine Ratio 16 (6-26); Blood Urea Nitrogen 10 mg/dL (7-20); Calcium 8.7 mg/dL (8.6-10.8); Carbon Dioxide 24 mEq/L (19-29); Chloride 98 mEq/L (98-109); Glucose 133 mg/dL (70-99); Osmolality,Calculated 271 (280-300); eGFR For African Americans > 60 (> 60); eGFR For Non-African Americans > 60 (> 60)
[2016-10-16 06:34] LABS: Sodium 130 mEq/L (136-145)
[2016-10-16] MEDS: Levofloxacin 750 MG/150 ML 750 MG/150 ML BAG IVPB SCH (07:47)
[2016-10-16] MEDS: BuPROPion XL (24 HR) 150 MG TABLET PO SCH (07:48)
[2016-10-16] MEDS: amLODIPine 5 MG TABLET PO SCH (07:48)
[2016-10-16] MEDS: Budesonide/Formoterol 160/4.5 MDI IH SCH ×2 (08:14→20:04)
[2016-10-16] MEDS: Albuterol 2.5 MG/3 ML NEBULIZER IH PRN (14:16)
--- NOTE | 2016-10-16 15:26 | Internal Med Progress Note ---
Date of Encounter: 10/16/16 Time of Encounter: 15:23 - Assessment and plan (1) Acute exacerbation of chronic obstructive airways disease Current Visit: Yes Status: Acute Assessment and plan: Acute on chronic hypoxic respiratory failure secondary to acute COPD exacerbation likely secondary to acute bacterial bronchitis Continue Solu-Medrol IV, DuoNeb nebs, oxygen therapy Levaquin day 3 (2) Hilar mass Current Visit: Yes Status: Acute Assessment and plan: Imaging consistent with 2 new lung masses-strongly suspicious for lung cancer. Right hilar mass 5.3 cm x 3.6 cm and right middle lobe mass 3.2 cm x 1.1 cm. Of note, chest CT from 01/16/16 unremarkable for masses. Pulmonary recommended follow-up as an outpatient to consider biopsying one COPD exacerbation is properly controlled ITS Impressions Chest X-Ray 10/14/16 14:06 IMPRESSION: Right hilar enlargement progressed from 05/22/2016. RECOMMENDATION: Further evaluation with CT chest. D/ / Eduard Gutiérrez MD / Eduard Gutiérrez MD Interpreting Provider: Eduadr Gutiérrez MD Chest CT 10/14/16 14:55 IMPRESSION: Large right hilar mass measuring approximately 5.3 cm x 3.6 cm concerning for malignancy with subcarinal adenopathy. Linear mass seen extending away from the right hilar region into the right middle lobe measuring 3.2 cm x 1.1 cm. COPD. D/ / 10/14/2016 15:31:57 Eduard Lee MD / fili Interpreting Provider: Eduard Lee MD (3) Hyponatremia Current Visit: Yes Status: Acute Assessment and plan: Improving. Associated with hypo-osmolarity likely related to decreased by mouth intake. We will continue to trend. (4) Smoking Current Visit: Yes Status: Chronic Assessment and plan: Patient stating she has stopped smoking. She appears anxious at this time regarding possible new diagnosis of lung cancer. She declined nicotine replacement therapy (5) Acute and chronic respiratory failure Current Visit: Yes Status: Acute Assessment and plan: on 2 L per nasal cannula at bedtime only Qualifiers: Respiratory failure complication: hypoxia Qualified Code(s): J96.21 - Acute and chronic respiratory failure with hypoxia (6) Hypertension Current Visit: Yes Status: Acute Assessment and plan: added amlodipine a Qualifiers: Hypertension type: unspecified Qualified Code(s): I10 - Essential (primary ) hypertension (7) Leukocytosis Current Visit: Yes Status: Resolved Qualifiers: Leukocytosis type: unspecified Qualified Code(s): D72.829 - Elevated white blood cell count, unspecified (8) Hypokalemia Current Visit: Yes Status: Resolved Assessment and plan: repleted - Subjective Interval history: still feeling SOB, denies any CP, no fever, no abdominal pain , no dysuria, no diarrhea - Constitutional Vitals: Temp Pulse Resp BP Pulse Ox 98.3 F 61 16 156/68 96 10/16/16 14:52 10/16/16 14:52 10/16/16 14:52 10/16/16 14:52 10/16/16 14:52 General appearance: Present: mild distress, A&O X 3, pleasant, answers questions appropriately - Head Head exam: Present: atraumatic, normocephalic - Eye Eye exam: Present: PERRL, conjuntiva pink, sclera anicteric Pupils: Present: PERRL - Neck Neck exam general surgery: Present: supple, trachea midline. Absent: lymphadenopathy - Respiratory Respiratory exam: Present: decreased breath sounds (Very diminished breath sounds with mild diffuse wheezing), CTAB. Absent: accessory muscle use, rales, rhonchi, wheezes - Cardiovascular Cardiovascular exam: Present: RRR, +S1, +S2. Absent: diastolic murmur, gallop, rubs, systolic murmur - GI/Abdominal GI/Abdominal exam: Present: normal bowel sounds, soft, no peritoneal signs. Absent: distended, tenderness - Extremities Exam Extremities exam: Present: warm, radial pulses palpable and symmetrical. Absent : calf tenderness, cyanotic, pedal edema - Neurological Exam Neurological exam: Present: CN II-XII intact, oriented X3, no focal deficits. Absent: pronater drift, facial droop, speech deficit - Skin Skin exam: Present: dry, intact Internal Medicine: Result - Labs CBC & Chem 7: 10/16/16 05:49 10/16/16 05:49 Labs: Short CBC 10/16/16 Range/Units 05:49 WBC 7.6 D (4.3-11.1) K/mcL Hgb 12.7 (11.5-15.4) g/dL Hct 37.2 (35.3-44.9) % Plt Count 367 (140-400) K/mcL Neutrophils # 6.9 (1.6-8.9) K/mcL BMP 10/16/16 05:49 Sodium 130 L D Potassium 4.0 Chloride 98 Carbon Dioxide 24 BUN 10 Creatinine 0.64 Glucose 133 H Calcium 8.7 - ABG Interpretation ABG results: ABG ABG pH 7.43 pH Units (7.32-7.45) 10/14/16 18:54 ABG pCO2 40 mmHg (35-45) 10/14/16 18:54 ABG pO2 88 mmHg (85-104) 10/14/16 18:54 ABG O2 Saturation 97 % (95-98) 10/14/16 18:54 PT/INR, D-dimer PT 10.1 Seconds (9.4-12.1) 10/14/16 14:26 - VTE Documentation of Mechanical Device: Graduated compression elastic hosiery Consult Discharge Plan - Plan Referrals: Lilibeth Templeton, REGIONAL TELECOMMUNICATIONS SPECIALIST [Primary Care Provider] -
[2016-10-16] MEDS: traZODone 50 MG TABLET PO SCH (19:39)
[2016-10-17] MEDS: Ipratropium/Albuterol Neb 3 ML IH SCH ×2 (03:44→07:29)
[2016-10-17 06:15] LABS: BUN/Creatinine Ratio 13 (6-26); Blood Urea Nitrogen 9 mg/dL (7-20); Calcium 9.2 mg/dL (8.6-10.8); Carbon Dioxide 29 mEq/L (19-29); Chloride 96 mEq/L (98-109); Glucose 145 mg/dL (70-99); Osmolality,Calculated 273 (280-300); Potassium 3.8 mEq/L (3.5-4.5); Sodium 131 mEq/L (136-145); eGFR For African Americans > 60 (> 60); eGFR For Non-African Americans > 60 (> 60)
[2016-10-17 07:22] VITALS: BP 139/75
[2016-10-17] MEDS: Budesonide/Formoterol 160/4.5 MDI IH SCH (07:27)
[2016-10-17] MEDS: Levofloxacin 750 MG/150 ML 750 MG/150 ML BAG IVPB SCH (07:53)
[2016-10-17] MEDS: methylPREDNISolone 125 MG/2 ML VIAL IVP SCH (07:54)
[2016-10-17] MEDS: *HR* Heparin 5,000 UNIT/ML VIAL SQ SCH (07:54)
[2016-10-17] MEDS: BuPROPion XL (24 HR) 150 MG TABLET PO SCH (07:55)
[2016-10-17] MEDS: amLODIPine 5 MG TABLET PO SCH (07:55)
--- NOTE | 2016-10-17 08:08 | Discharge Summary ---
Date of Encounter: 10/17/16 Time of Encounter: 08:04 - Discharge Diagnosis (1) Acute exacerbation of chronic obstructive airways disease Priority: Primary Status: Acute Comments: Acute on chronic hypoxic respiratory failure secondary to acute COPD exacerbation likely secondary to acute bacterial bronchitis (2) Hilar mass Priority: Primary Status: Acute (3) Hyponatremia Priority: Secondary Status: Acute (4) Smoking Priority: Secondary Status: Chronic (5) Acute and chronic respiratory failure Priority: Primary Status: Acute Qualifiers: Respiratory failure complication: hypoxia Qualified Code(s): J96.21 - Acute and chronic respiratory failure with hypoxia (6) Hypertension Priority: Secondary Status: Acute Qualifiers: Hypertension type: unspecified Qualified Code(s): I10 - Essential (primary ) hypertension (7) Leukocytosis Priority: Secondary Status: Resolved Qualifiers: Leukocytosis type: unspecified Qualified Code(s): D72.829 - Elevated white blood cell count, unspecified (8) Hypokalemia Priority: Secondary Status: Resolved - Discharge Medications Prescriptions: amLODIPine [Norvasc] 5 mg PO DAILY #30 tab levoFLOXacin [Levaquin] 750 mg PO DAILY #3 tablet predniSONE [PredniSONE] 10 mg PO DAILY 20 Days Home Medications: DULoxetine [Cymbalta] 30 mg PO HS 02/15/16 [History] Trazodone HCl 200 mg PO HS 02/15/16 [History] Melatonin/Pyridoxine HCl (B6) [Melatonin 3 mg Tablet] 3 mg PO HS 05/02/16 [ History] Albuterol Neb [Proventil Neb] 2.5 mg IH Q6H PRN 10/14/16 [History] Albuterol Sulfate [Albuterol Inhaler] 2 puff IH Q6H PRN 10/14/16 [History] BuPROPion XL (24 HR) [Wellbutrin Xl] 150 mg PO DAILY 10/14/16 [History] Budesonide/Formoterol 160/4.5 [Symbicort 160/4.5] 2 puff IH BIDR 10/14/16 [ History] Oxygen 2 l .ROUTE AD 10/14/16 [History] Tiotropium [Spiriva] 18 mcg IH DAILY 10/14/16 [History] amLODIPine [Norvasc] 5 mg PO DAILY #30 tab 10/17/16 [Rx] levoFLOXacin [Levaquin] 750 mg PO DAILY #3 tablet 10/17/16 [Rx] predniSONE [PredniSONE] 10 mg PO DAILY 20 Days 10/17/16 [Rx] Allergies/Adverse Reactions: 3 Allergy/AdvReac Type Severity Reaction Status Date / Time No Known Allergies Allergy Verified 10/14/16 13:33 Date of admission: 10/14/16 18:14 Primary care physician: Lilibeth Templeton CNP - Patient Status Disposition: Home, Self-Care Condition: Fair Overall status at discharge: patient is progressing back to baseline - Discharge Instructions Follow Up With: Lilibeth Templeton CNP [Primary Care Provider] - Additional Instructions: Follow-up with primary care physician within the next 7 days. Complete prednisone taper, completed 3 more doses of Levaquin, continue oxygen therapy. Follow-up with pulmonary services within the next 2-3 weeks. Quit smoking - Diet and Activity Activity: increase activity as tolerated, wear oxygen at all times Diet: low fat, low cholesterol Hospital course: Ms. Keenan is a 60 year old female with a past medical history of chronic respiratory failure, COPD oxygen dependent using 2 L at home, tobacco use, depression and anxiety who presented to the emergency department with worsening shortness of breath. Patient reported she has been having breathing troubles for several weeks , and despite on nebulizer treatments she continued to feel worse which prompted her to come to the emergency department. She reported occasional lightheadedness, occasional coughing, not very productive, occasional nausea. Evaluation in emergency department revealed elevated white blood cell count of 15.5. Hyponatremia with sodium of 127 which is new. Lactate was normal at 0.7 , troponin was normal 0.00. Chest x-ray showed right hilar enlargement which has progressed from May. Imaging consistent with 2 new lung masses-strongly suspicious for lung cancer. Right hilar mass 5.3 cm x 3.6 cm and right middle lobe mass 3.2 cm x 1.1 cm. Of note, chest CT from 01/16/16 unremarkable for masses. The patient was started on Solu-Medrol and Levaquin. He improved clinically. Pulmonary consult was ordered. Pulmonary recommended follow-up as an outpatient to consider biopsy once COPD exacerbation is properly controlled. Time spent discussing smoking cessation with patient: 3 to 10 minutes - Time Spent with Patient Total time spent providing and/or coordinating discharge services: Greater than 30 minutes (40 min) - Constitutional Vitals: Temp Pulse Resp BP Pulse Ox 99.0 F 88 16 139/75 96 10/17/16 07:19 10/17/16 07:19 10/17/16 07:27 10/17/16 07:19 10/17/16 07:27 General appearance: Present: mild distress, A&O X 3, pleasant, answers questions appropriately - Head Head exam: Present: atraumatic, normocephalic - Eye Eye exam: Present: PERRL, conjuntiva pink, sclera anicteric Pupils: Present: PERRL - Neck Neck exam general surgery: Present: supple, trachea midline. Absent: lymphadenopathy - Respiratory Respiratory exam: Present: decreased breath sounds, CTAB. Absent: accessory muscle use, rales, rhonchi, wheezes - Cardiovascular Cardiovascular exam: Present: RRR, +S1, +S2. Absent: diastolic murmur, gallop, rubs, systolic murmur - GI/Abdominal GI/Abdominal exam: Present: normal bowel sounds, soft, no peritoneal signs. Absent: distended, tenderness - Extremities Exam Extremities exam: Present: warm, radial pulses palpable and symmetrical. Absent : calf tenderness, cyanotic, pedal edema - Neurological Exam Neurological exam: Present: CN II-XII intact, oriented X3, no focal deficits. Absent: pronater drift, facial droop, speech deficit - Skin Skin exam: Present: dry, intact - VTE Documentation of Mechanical Device: Graduated compression elastic hosiery
[2016-10-17] MEDS ORDERED: Nicotine 21 MG PATCH.TD24 TD SCH (10:15)
== END 2016-10-17 10:44 | disposition home or self-care (01) | DRG 190 ==
LOC: EMEROO 13:31 → 3BNU 13:31 → SUATTDRO 18:14
PROVIDERS: ADMIT Internal Medicine; ATTEND Internal Medicine

== ENCOUNTER 2016-11-06 12:13 | Observation (INO) ==
[~2016-11-06 12:13] MED LIST: *HR* Propofol 200 MG/20 ML VIAL IVP ONE; EPHEDrine 50 MG/ML VIAL IVP ONE; Lidocaine -MPF 2% 5 ML VIAL INFILT ONE; Ondansetron 4 MG/2 ML VIAL IVP ONE
--- NOTE | 2016-11-06 13:13 | History & Physical Report ---
Date of Encounter: 11/06/16 Time of Encounter: 13:00 24 Hour HP Update - Instructions Instructions: If the History and Physical is less than 30 days old and was completed prior to A.M. admission and or procedure and has NOT been updated on calendar day of procedure please complete this update prior to performing procedure. - Update Patient reports changes in Medical Condition: No Changes in examination, assessment, or condition: No Changes in Medication: No Preop tests/diagnostics Reviewed: Yes Surgery Remains Indicated: Yes Consent for Planned Operative Procedure(s) Verified: Yes
--- NOTE | 2016-11-06 13:29 | Anesthesia Evaluation PreOp ---
Date of Encounter: 11/06/16 Time of Encounter: 13:28 - Past History Planned Operation: EBUS Cardiac History: HTN Pulmonary History: Smoker, Pack/yr (1.5 ppd x 47 years), COPD (2 L NC), Other ( Hilar Mass, chronic resp failure with hypoxia) [employer] History: Other (Anxiety/depression) Other Medical History: Other (Chronic lumbar pain, ddd) : No Alcohol Use: none Drug use: opiates, other (Benzodiazapenes) Medications and Allergies DULoxetine [Cymbalta] 30 mg PO HS 02/15/16 [History] Trazodone HCl 200 mg PO HS 02/15/16 [History] Melatonin/Pyridoxine HCl (B6) [Melatonin 3 mg Tablet] 3 mg PO HS 05/02/16 [ History] Albuterol Neb [Proventil Neb] 2.5 mg IH Q6H PRN 10/14/16 [History] Albuterol Sulfate [Albuterol Inhaler] 2 puff IH Q6H PRN 10/14/16 [History] BuPROPion XL (24 HR) [Wellbutrin Xl] 150 mg PO DAILY 10/14/16 [History] Budesonide/Formoterol 160/4.5 [Symbicort 160/4.5] 2 puff IH BIDR 10/14/16 [ History] Oxygen 2 l .ROUTE AD 10/14/16 [History] Tiotropium [Spiriva] 18 mcg IH DAILY 10/14/16 [History] Nicotine Patch [Nicoderm] 21 mg TD DAILY #30 patch.td24 10/17/16 [Rx] amLODIPine [Norvasc] 5 mg PO DAILY #30 tab 10/17/16 [Rx] levoFLOXacin [Levaquin] 750 mg PO DAILY #3 tablet 10/17/16 [Rx] GuaiFENesin ER [Mucinex] 1,200 mg PO BID #20 tbbp.12hr 10/21/16 [Rx] predniSONE [PredniSONE] 10 mg PO DAILY #41 tablet 10/21/16 [Rx] 3 Allergy/AdvReac Type Severity Reaction Status Date / Time No Known Allergies Allergy Verified 10/14/16 13:33 - Meds/Allergy Pre-op Review Medications Reviewed: Yes Allergies Reviewed: Yes Beta Blockers on Current Med List: No Anesthesia Results - Labs Laboratory Tests 10/14/16 10/20/16 14:26 02:59 WBC 11.5 H Hgb 12.1 Hct 37.1 Plt Count 352 INR 0.9 - Imaging EKG: image reviewed (ST) Anesthesia Exam O2 Sat Height 1.55 m Weight 49.555 kg O2 Sat by Pulse Oximetry 99 Vital Signs Temp Pulse Resp BP Pulse Ox 98.7 F 106 22 131/84 99 11/06/16 13:24 11/06/16 13:24 11/06/16 13:24 11/06/16 13:11/06/16 13:24 Height: 5'1'' Weight: 109# NPO (# of Hours): > 8 hrs Pain Scale: 0 Pain Scale Used: Numeric (1 - 10) - HEENT Pupil (Motor): Pupils equal, EOMI Mallampati: II Teeth: Normal Oral Opening: Greater than 3 - [employer] LOC: Oriented [employer] Motor: Normal RUE, Normal LUE, Normal RLE, Normal LLE, Normal Face [employer] Sensory: Normal: RUE, LUE, RLE, LLE, Face - Cardiac Rhythm: Regular Murmur: None JVD: No Carotid Bruit: No - Pulmonary Breath Sounds: bilateral Clear Respiratory Effort: Symmetrical Anesthesia Assess/Plan ASA Score: 3 Modified Crystal Scale for Level of Consciousness: Cooperative, oriented, and tranquil Anesthetic Plan: General Autologous Blood: Yes Monitoring Plan: Standard Monitors Recovery Plan: PACU
[2016-11-06] MEDS ORDERED: Ringers Solution, Lactated 1,000 ML IVC SCH ×2 (13:45→15:15)
[2016-11-06] MEDS ORDERED: *HR* Midazolam HCl 2 MG/2 ML VIAL ONE (14:40)
[2016-11-06] MEDS ORDERED: *HR* FentaNYL (PF) 100 MCG/2 ML VIAL ONE (14:40)
[2016-11-06] MEDS ORDERED: *HR* EPINEPHrine 1 MG/10 ML SYRINGE INTRATRACH PRN (15:10)
[2016-11-06] MEDS ORDERED: *HR* EPINEPHrine 1 MG/10 ML SYRINGE ONE (15:10)
[2016-11-06] MEDS ORDERED: *HR* Promethazine 25 MG/ML VIAL IVP PRN (15:14)
[2016-11-06] MEDS ORDERED: Albuterol 2.5 MG/3 ML NEBULIZER IH ONE (15:14)
[2016-11-06] MEDS ORDERED: *HR* HYDROmorphone (PF) 1 MG/ML SYRINGE IVP PRN (15:14)
[2016-11-06] MEDS ORDERED: *HR* Labetalol 20 MG/4 ML SYRINGE IVP PRN (15:14)
[2016-11-06] MEDS ORDERED: Ondansetron 4 MG/2 ML VIAL IVP ONE (15:14)
--- NOTE | 2016-11-06 16:40 | Anesthesia Evaluation Post Op ---
Date of Encounter: 11/06/16 Time of Encounter: 16:34 - Vital Signs Vital Signs: Vital Signs/O2 Sat, Most Current Temp Pulse Resp BP Pulse Ox 98.1 F 64 20 166/88 94 11/06/16 16:00 11/06/16 16:00 11/06/16 16:00 11/06/16 16:00 11/06/16 16:00 - Lungs Lungs: Wheezes (patient being admitted by Dr. Corbin for SOB, hypoxia) - Airway Airway: Non-obstructed - Cardiovascular Regular Rate - Mental Status Mental Status: Alert & Oriented, Answers Appropriately - Pain Pain Scale: 0 Pain Scale used: Numeric (1 - 10) - Nausea Vomiting Nausea Vomiting: Not Present - Hydration Hydration: Tolerates oral liquids, Has not voided - Discharge PostOp Status: Transfer Patient to floor
[2016-11-06] MEDS ORDERED: *HR* HYDROcodone/Acet 5/325 mg TABLET PO PRN (18:43)
[2016-11-06] MEDS ORDERED: Naloxone 0.4 MG/ML INJ IVP PRN (18:43)
[2016-11-06] MEDS ORDERED: Ondansetron 4 MG/2 ML VIAL IVP PRN (18:43)
[2016-11-06] MEDS ORDERED: Acetaminophen 325 MG TABLET PO PRN (18:43)
[2016-11-06] MEDS ORDERED: Albuterol 2.5 MG/3 ML NEBULIZER IH PRN (18:46)
[2016-11-06] MEDS ORDERED: methylPREDNISolone 125 MG/2 ML VIAL IVP ONE (19:29)
[2016-11-06] MEDS: Ipratropium/Albuterol Neb 3 ML IH SCH ×2 (20:02→23:43)
[2016-11-06] MEDS: Budesonide/Formoterol 160/4.5 MDI IH SCH (20:07)
--- NOTE | 2016-11-06 20:41 | Internal Med History&Physical ---
<Kylah Salinas M - Last Filed: 11/06/16 20:34> Date of Encounter: 11/06/16 Time of Encounter: 20:34 Assessment and Plan (1) Shortness of breath Current visit: Yes Status: Acute Patient had shortness of breath following bronchoscopy. She is feeling better now, but does have wheezing and rhonchi on auscultation. Duonebs Q4hr, albuterol Q2hr PRN. titrate oxygen to maintain saturation > 92%. continuous pulse oximetry and telemetry. (2) COPD (chronic obstructive pulmonary disease) Current visit: Yes Status: Acute Patient with history of COPD and multiple recent admissions for exacerbations. Duoneb treatments Q4hr, albuterol nebulizer Q2hr PRN, continue home doses of COPD medications. titrate oxygen to maintain saturation > 92%. Qualifiers: COPD type: unspecified COPD Qualified Code(s): J44.9 - Chronic obstructive pulmonary disease, unspecified (3) Hilar mass Current visit: Yes Status: Chronic Patient had bronchoscopy and biopsy of hilar mass today by Dr. Corbin. Will have follow up with him as outpatient once pathology and cytology is back. (4) DVT prophylaxis Current visit: Yes Status: Acute sequential compression devices. Internal Medicine - H&P: HPI Chief complaint: bronchoscopy Admitted From: Direct Admit Plans for Post Hospital Care: Home History of present illness: Ms. Keenan is a 61 year old female with COPD, HTN, anxiety and hilar mass who was here today for planned bonchoscopy and biopsy of the hilar mass, and experienced shortness of breath post-procedure. She is being admitted for observation. On my exam, she reports feeling much better, with mild headache, but denies chest pain, palpitations, increased shortness of breath, cough, numbness or tingling, chills or sweats. On exam, she is alert and oriented, in no acute distress, lungs with wheezes bilaterally, heart with regular rate and rhythm. no peripheral edema. Past Med Surg Social Fam HX - Past Medical History Medical history: COPD, hypertension Psychiatric history: anxiety, depression - Past Surgical History Surgical History: hysterectomy - Social History Smoking Status: Former smoker Smokeless Tobacco Status: No Alcohol use: none Drug use: opiates, other - Family History Sister Living Status: Still Living Hx Family Cancer: Yes (cervical cancer) Internal Medicine - H&P: Meds DULoxetine [Cymbalta] 30 mg PO HS 02/15/16 [History] Trazodone HCl 200 mg PO HS 02/15/16 [History] Melatonin/Pyridoxine HCl (B6) [Melatonin 3 mg Tablet] 3 mg PO HS 05/02/16 [ History] Albuterol Neb [Proventil Neb] 2.5 mg IH Q6H PRN 10/14/16 [History] Albuterol Sulfate [Albuterol Inhaler] 2 puff IH Q6H PRN 10/14/16 [History] BuPROPion XL (24 HR) [Wellbutrin Xl] 150 mg PO DAILY 10/14/16 [History] Budesonide/Formoterol 160/4.5 [Symbicort 160/4.5] 2 puff IH BIDR 10/14/16 [ History] Oxygen 2 l .ROUTE AD 10/14/16 [History] Tiotropium [Spiriva] 18 mcg IH DAILY 10/14/16 [History] Nicotine Patch [Nicoderm] 21 mg TD DAILY #30 patch.td24 10/17/16 [Rx] amLODIPine [Norvasc] 5 mg PO DAILY #30 tab 10/17/16 [Rx] 3 Allergy/AdvReac Type Severity Reaction Status Date / Time No Known Allergies Allergy Verified 10/14/16 13:33 All Systems PM: A 10-system review of systems was performed and is negative for pertinent findings except as documented above in the HPI. - Constitutional Constitutional: no chills, no fever(s), no night sweats - EENT Eyes: no change in vision, no discharge, no pain, no photophobia Ears: no ear discharge, no ear pain, no tinnitus Nose, mouth and throat: no dysphagia, no nasal discharge, no neck pain, no sore throat - Cardiovascular Cardiovascular ROS IM: dyspnea, no chest pain, no diaphoresis, no lightheadedness, no palpitations, no syncope - Respiratory Respiratory: dyspnea, wheezing, no cough, no excessive phlegm production - Gastrointestinal Gastrointestinal: no abdominal pain, no diarrhea, no hematemesis, no hematochezia, no melena, no nausea, no vomiting - Genitourinary Genitourinary: no change in urinary stream, no dysuria, no flank pain, no hematuria - Musculoskeletal Musculoskeletal ROS IM: no numbness, no tingling - Integumentary Integumentary IM: no rash, no unusual bruising - Neurological Neurological ROS: headache(s), no confusion, no convulsions, no focal weakness, no numbness, no tingling, no tremor(s) - Hematologic/Lymphatic Hematologic/Lymphatic: no easy bruising - Constitutional Vitals: Temp Pulse Resp BP Pulse Ox 97.6 F 115 21 137/72 93 11/06/16 19:28 11/06/16 19:28 11/06/16 19:28 11/06/16 19:28 11/06/16 19:28 General appearance: Present: A&O X 3, pleasant, no acute distress - Head Head exam: Present: atraumatic, normocephalic - Eye Eye exam: Present: PERRL, conjuntiva pink, sclera anicteric Pupils: Present: PERRL - Neck Neck exam general surgery: Present: supple, trachea midline. Absent: lymphadenopathy - Respiratory Respiratory exam: Present: rhonchi, wheezes. Absent: accessory muscle use, rales - Cardiovascular Cardiovascular exam: Present: RRR, +S1, +S2. Absent: diastolic murmur, gallop, rubs, systolic murmur - GI/Abdominal GI/Abdominal exam: Present: normal bowel sounds, soft, no peritoneal signs. Absent: distended, tenderness - Extremities Exam Extremities exam: Present: warm, radial pulses palpable and symmetrical. Absent : calf tenderness, cyanotic, pedal edema - Neurological Exam Neurological exam: Present: CN II-XII intact, oriented X3, no focal deficits. Absent: pronater drift, facial droop, speech deficit - Skin Skin exam: Present: dry, intact Internal Med - H&P Results - Impressions ITS Impressions Chest X-Ray 11/06/16 15:55 IMPRESSION: 1. Known right hilar mass which appears to have increased over the interval. Otherwise, stable chest x-ray. D/ / Mark Wallace MD / Mark Wallace MD Interpreting Provider: Mark Wallace MD - Diagnostic Studies Chest x-ray Additional comments: Chest X-Ray 11/06/16 15:55 IMPRESSION: 1. Known right hilar mass which appears to have increased over the interval. Otherwise, stable chest x-ray. D/ / Mark Wallace MD / Mark Wallace MD Interpreting Provider: Mark Wallace MD <Marisa New - Last Filed: 11/06/16 23:23> Date of Encounter: 11/06/16 Time of Encounter: 23:20 Internal Medicine - H&P: HPI History of present illness: Ms. Keenan is a 61 year old female All Systems PM: A 10-system review of systems was performed and is negative for pertinent findings except as documented above in the HPI. - Constitutional Vitals: Temp Pulse Resp BP Pulse Ox 97.9 F 105 16 119/72 94 11/06/16 23:11 11/06/16 23:11 11/06/16 23:11 11/06/16 23:11 11/06/16 23:11 Internal Med - H&P Results - Impressions ITS Impressions Chest X-Ray 11/06/16 15:55 IMPRESSION: 1. Known right hilar mass which appears to have increased over the interval. Otherwise, stable chest x-ray. D/ / Mark Wallace MD / Mark Wallace MD Interpreting Provider: Mark Wallace MD - Attending Attestation Patient independently seen and examined at bedside. Admitted for observation s/p bronchoscopy for hilar mass. Patient has severe COPD and was noted to be in respiratory distress after her bronchoscopy which prompted her overnight observation. Patient reports of feeling better at this time and resting comfortably in bed. Will titrate oxygen therapy to maintain O2 saturation: 88%-92%. Case discussed with OMA Salinas, I agree with her documented findings, assessment, and plan except as listed above.
[2016-11-06] MEDS ORDERED: traZODone 50 MG TABLET PO SCH (21:00)
[2016-11-07] MEDS: Ipratropium/Albuterol Neb 3 ML IH SCH ×2 (03:52→07:45)
[2016-11-07 07:40] VITALS: BP 112/76
[2016-11-07] MEDS: Budesonide/Formoterol 160/4.5 MDI IH SCH (07:45)
[2016-11-07] MEDS ORDERED: Ipratropium/Albuterol Neb 3 ML IH SCH (08:00)
[2016-11-07 08:33] LABS: BUN/Creatinine Ratio 17 (6-26); Blood Urea Nitrogen 11 mg/dL (7-20); Carbon Dioxide 24 mEq/L (19-29); Chloride 98 mEq/L (98-109); Glucose 154 mg/dL (70-99); Osmolality,Calculated 274 (280-300); Potassium 4.3 mEq/L (3.5-4.5); Sodium 131 mEq/L (136-145); eGFR For African Americans > 60 (> 60); eGFR For Non-African Americans > 60 (> 60)
[2016-11-07] MEDS ORDERED: Tiotropium 18 MCG inhalation IH SCH (09:00)
[2016-11-07] MEDS ORDERED: Nicotine 21 MG PATCH.TD24 TD SCH (09:00)
[2016-11-07] MEDS ORDERED: BuPROPion XL (24 HR) 150 MG TABLET PO SCH (09:00)
[2016-11-07] MEDS ORDERED: amLODIPine 5 MG TABLET PO SCH (09:00)
--- NOTE | 2016-11-07 09:15 | Discharge Summary ---
Date of Encounter: 11/07/16 Time of Encounter: 09:12 - Discharge Diagnosis (1) Acute and chronic respiratory failure ([id number]) Priority: Primary Status: Acute Comments: with increased shortness of breath and O2 requirements following bronchoscopy. Symptoms significantly improved after receiving one-time dose Solu-Medrol and duo nebs. Clinically improved and back to baseline O2 requirements on day of discharge. Discussed with Dr. Aragon (Pulmonology) and okay to discharge with outpatient palm follow-up. Discharge home on steroid burst. Qualifiers: Respiratory failure complication: hypoxia Qualified Code(s): J96.21 - Acute and chronic respiratory failure with hypoxia (2) COPD (chronic obstructive pulmonary disease) Priority: Primary Status: Acute Comments: per hx. with acute on chronic respiratory failure after bronchoscopy as noted above. Continue home inhalers, nebs. Can follow up outpatient with PCP, pulmonology. Steroid burst at discharge. Qualifiers: COPD type: COPD with acute exacerbation Qualified Code(s): J44.1 - Chronic obstructive pulmonary disease with (acute) exacerbation (3) Hilar mass Priority: Primary Status: Acute Comments: s/p bronchoscopy and biopsy of hilar mass on 11/06/[address] Corbin. Plan for outpatient follow-up once pathology and cytology is back. - Discharge Medications Prescriptions: predniSONE [PredniSONE] 40 mg PO DAILY 5 Days #10 tablet Home Medications: DULoxetine [Cymbalta] 30 mg PO HS 02/15/16 [History] Trazodone HCl 200 mg PO HS 02/15/16 [History] Melatonin/Pyridoxine HCl (B6) [Melatonin 3 mg Tablet] 3 mg PO HS 05/02/16 [ History] Albuterol Neb [Proventil Neb] 2.5 mg IH Q6H PRN 10/14/16 [History] Albuterol Sulfate [Albuterol Inhaler] 2 puff IH Q6H PRN 10/14/16 [History] BuPROPion XL (24 HR) [Wellbutrin Xl] 150 mg PO DAILY 10/14/16 [History] Budesonide/Formoterol 160/4.5 [Symbicort 160/4.5] 2 puff IH BIDR 10/14/16 [ History] Oxygen 2 l .ROUTE AD 10/14/16 [History] Tiotropium [Spiriva] 18 mcg IH DAILY 10/14/16 [History] Nicotine Patch [Nicoderm] 21 mg TD DAILY #30 patch.td24 10/17/16 [Rx] amLODIPine [Norvasc] 5 mg PO DAILY #30 tab 10/17/16 [Rx] predniSONE [PredniSONE] 40 mg PO DAILY 5 Days #10 tablet 11/07/16 [Rx] Allergies/Adverse Reactions: 3 Allergy/AdvReac Type Severity Reaction Status Date / Time No Known Allergies Allergy Verified 10/14/16 13:33 Date of admission: 11/06/16 17:33 Primary care physician: Lilibeth Templeton CNP Discharging clinician: Heaven Perkins Anticipated date of discharge: 11/07/16 (38 minutes spent on discharge ) - Patient Status Disposition: Home, Self-Care Condition: Fair Functional capacity at discharge: independent ambulation Overall status at discharge: patient is back to baseline - Discharge Instructions Follow Up With: Lilibeth Templeton CNP [Primary Care Provider] - - Diet and Activity Activity: increase activity as tolerated Diet: advance to your usual diet Interval History: Seen and examined at bedside, patient is new to me information obtained from chart review and patient report. Patient says she feels much better this morning, she is back down to home O2 requirements at 2 L. Says she is short of breath but nothing worse than baseline. She is requesting to go home. Discussed case with on-call shoe parts caser who is okay with discharge and outpatient follow-up. Denies chest pain, no fevers or chills, after little throughout the night but none this morning. Hospital course: Ms. Keenan is a 61 year old female - Time Spent with Patient Total time spent providing and/or coordinating discharge services: Greater than 30 minutes (38 minutes) - Constitutional Vitals: Temp Pulse Resp BP Pulse Ox 98.4 F 98 16 112/76 95 11/07/16 07:37 11/07/16 07:37 11/07/16 07:47 11/07/16 07:37 11/07/16 07:47 General appearance: Present: A&O X 3, pleasant, no acute distress - Head Head exam: Present: atraumatic, normocephalic - Eye Eye exam: Present: PERRL, conjuntiva pink, sclera anicteric Pupils: Present: PERRL - Neck Neck exam general surgery: Present: supple, trachea midline. Absent: lymphadenopathy - Respiratory Respiratory exam: Present: decreased breath sounds, wheezes (Slight scattered wheezing and mild dyspnea when speaking). Absent: accessory muscle use, rales, rhonchi - Cardiovascular Cardiovascular exam: Present: RRR, +S1, +S2. Absent: diastolic murmur, gallop, rubs, systolic murmur - GI/Abdominal GI/Abdominal exam: Present: normal bowel sounds, soft, no peritoneal signs. Absent: distended, tenderness - Extremities Exam Extremities exam: Present: warm, radial pulses palpable and symmetrical. Absent : calf tenderness, cyanotic, pedal edema - Neurological Exam Neurological exam: Present: CN II-XII intact, oriented X3, no focal deficits. Absent: pronater drift, facial droop, speech deficit - Skin Skin exam: Present: dry, intact
[2016-11-07 09:16] LABS: Hematocrit 37.2 % (35.3-44.9); Hemoglobin 12.1 g/dL (11.5-15.4); Immature Granulocytes % 0.5 % (0-4); Lymphocytes # 0.7 K/mcL (0.6-4.6); Lymphocytes % 10.8 %; Mean Corpuscular HGB Conc 32.5 g/dL (31.6-35.5); Mean Corpuscular Hemoglobin 29.2 pg (28.0-33.3); Mean Corpuscular Volume 89.6 fL (83.0-100.0); Mean Platelet Volume 9.3 fL (9.4-12.4); Monocytes # 0.3 K/mcL (0.0-1.3); Neutrophils # 5.4 K/mcL (1.6-8.9); Platelet Count 324 K/mcL (140-400); Red Blood Count 4.15 M/mcL (3.82-4.97); Red Cell Distribution Width 12.6 % (11.5-14.5); Segmented Neutrophils % 84.7 %
[2016-11-07 12:20] LABS: Appearance of Body Fluid Cloudy (Clear); Source of Body Fluid RIGHT MIDDLE LOBE LU; Volume of Body Fluid 15 mL
== END 2016-11-07 10:45 | disposition home or self-care (01) ==
LOC: ENDPAV 12:13 → 3BNU 12:13
PROVIDERS: ADMIT Family Medicine; ATTEND Registered Nurse

== ENCOUNTER 2016-11-08 16:12 | Inpatient (IN) ==
[2016-11-08] MEDS ORDERED: Ipratropium/Albuterol Neb 3 ML IH ONE (16:21)
[2016-11-08] MEDS ORDERED: predniSONE 20 MG TABLET PO ONE (16:22)
[2016-11-08 16:40] LABS: Basophils % 0.1 %; Hematocrit 39.9 % (35.3-44.9); Hemoglobin 13.4 g/dL (11.5-15.4); Immature Granulocytes % 0.7 % (0-4); Lymphocytes # 0.6 K/mcL (0.6-4.6); Lymphocytes % 3.5 %; Mean Corpuscular HGB Conc 33.6 g/dL (31.6-35.5); Mean Corpuscular Hemoglobin 29.6 pg (28.0-33.3); Mean Corpuscular Volume 88.1 fL (83.0-100.0); Mean Platelet Volume 8.8 fL (9.4-12.4); Monocytes % 3.5 %; Platelet Count 354 K/mcL (140-400); Red Blood Count 4.53 M/mcL (3.82-4.97); Red Cell Distribution Width 12.7 % (11.5-14.5); Segmented Neutrophils % 92.2 %; VBG PH 7.45 pH Units (7.32-7.42)
[2016-11-08 16:41] LABS: Monocytes # 0.6 K/mcL (0.0-1.3)
[2016-11-08] MEDS ORDERED: Azithromycin 250 MG TABLET PO ONE (16:41)
--- NOTE | 2016-11-08 16:42 | Emergency Department Note ---
Disposition Clinical Impression: Acute exacerbation of chronic obstructive airways disease Pneumonia Qualifiers: Pneumonia type: due to unspecified organism Laterality: right Lung location: lower lobe of lung Qualified Code(s): J18.1 - Lobar pneumonia, unspecified organism Disposition: Admitted As Inpatient Condition: Undetermined Time of Disposition: 17:25 SOB HPI - General Chief Complaint: ED Shortness of Breath/Dyspnea Stated Complaint: NOHELIA Time Seen by Provider: 11/08/16 16:20 Source: patient Mode of arrival: wheelchair Limitations: no limitations Nursing Notes Reviewed: Yes Vital Signs Reviewed: Yes - History of Present Illness 61-year-old female with extensive history of COPD arrives to [facility] emergency department complaining of shortness of breath. The patient states this occurred roughly 3-4 days ago and is progressively worsened. The patient states she has been utilizing her nebulizer treatments at home and last used albuterol just prior to arrival. The patient states that she was recently discharged from [address] The patient states that she felt much better prior to discharge but began to complaining of dyspnea just as soon as she got home. The patient denies any associated chest pain but does admit to a large amount of coughing and sputum production. Pt Subjective Complaint: shortness of breath Onset (ago): day(s) (2) Severity: moderate Consistency/Duration: constant, gradually worsening Improves with: bronchodilators Worsens with: nothing Known history of: COPD Associated symptoms: Reports: cough, wheezing, sputum production Treatment prior to arrival: bronchodilator Cough present: Yes Cough Description: Involuntary, Productive Sputum production: Yes Sputum Amount: Small Sputum Color: White, Cream - Related Data Home oxygen amount: 2 liters Home Medications Medication Instructions Recorded Confirmed DULoxetine [Cymbalta] 30 mg PO HS 02/15/16 11/08/16 Trazodone HCl 200 mg PO HS 02/15/16 11/08/16 Melatonin/Pyridoxine HCl (B6) 3 mg PO HS 05/02/16 11/08/16 [Melatonin 3 mg Tablet] Albuterol Neb [Proventil Neb] 2.5 mg IH Q6H PRN 10/14/16 11/08/16 Albuterol Sulfate [Albuterol 2 puff IH Q6H PRN 10/14/16 11/08/16 Inhaler] Budesonide/Formoterol 160/4.5 2 puff IH BIDR 10/14/16 11/08/16 [Symbicort 160/4.5] Oxygen 2 l .ROUTE AD 10/14/16 11/08/16 Tiotropium [Spiriva] 18 mcg IH DAILY 10/14/16 11/08/16 Previous Rx's Medication Instructions Recorded Nicotine Patch [Nicoderm] 21 mg TD DAILY #30 patch.td24 10/17/16 amLODIPine [Norvasc] 5 mg PO DAILY #30 tab 10/17/16 predniSONE [PredniSONE] 40 mg PO DAILY 5 Days #10 tablet 11/07/16 Allergies Allergy/AdvReac Type Severity Reaction Status Date / Time No Known Allergies Allergy Verified 10/14/16 13:33 All systems ED: reviewed and negative except as stated. Constitutional: Denies: fever, chills, weakness, weight change Cardiovascular: Denies: chest pain, palpitations, dyspnea on exertion, edema, syncope Respiratory: Reports: dyspnea, wheezes, sputum production. Denies: cough, hemoptysis, stridor Gastrointestinal: Denies: abdominal pain, nausea, vomiting, diarrhea, constipation, hematemesis, melena, hematochezia Genitourinary: Denies: dysuria, frequency, hematuria, discharge Musculoskeletal: Denies: back pain, neck pain, arthralgia, myalgia Integumentary: Denies: rash, abrasion, lesions Past Medical History - Past Medical History Attestation: Yes The following information was validated with the patient. Source: patient Medical history: Reports: COPD, hypertension Surgical history: Reports: hysterectomy Psychiatric history: Reports: anxiety, depression - Social History Smoking Status: Former smoker Smokeless Tobacco Status: No Alcohol use: Reports: none Drug use: Reports: opiates, other Physical Exam - General Limitations: no limitations General appearance: alert, in distress (In moderate respiratory) - Head Head exam: atraumatic, normocephalic, normal inspection - ENT ENT exam: normal exam, normal oropharynx, mucous membranes moist - Neck Neck exam: Present: normal inspection, full ROM, trachea midline - Chest Chest inspection: Present: normal inspection, symmetric chest wall rise - Respiratory Respiratory exam: Present: wheezes (Mild bilateral with poor air movement), accessory muscle use - Cardiovascular Cardiovascular exam: Present: normal rhythm, tachycardia, normal heart sounds - Abdominal Exam Abdominal exam: Present: soft, Non-Tender. Absent: tenderness, distention, guarding, rebound, rigidity - Extremities Exam Extremities exam: Present: normal inspection, full ROM. Absent: tenderness, pedal edema - Back Exam Back exam: Present: normal inspection, full ROM. Absent: tenderness - Neurological Exam Neurological exam: Present: alert, oriented X3 - Skin Skin exam: Present: warm, dry, intact, normal color Course - Reevaluation(s) Reevaluation #1: Reevaluation after patient received breathing treatment with better lung movement and mild wheezing still noted. Patient is not as tachypneic and is well-appearing on visualization. She is answering all portions appropriately and speaking in full sentences at this time. Time: 16:48 Vital Signs Temperature 98.4 F 11/08/16 16:33 Pulse Rate 104 11/08/16 16:33 Respiratory Rate 20 11/08/16 16:33 Blood Pressure 151/104 11/08/16 16:33 O2 Sat by Pulse Oximetry 96 11/08/16 16:33 Temperature 97.4 F L 11/08/16 23:08 Pulse Rate 106 11/08/16 23:08 Respiratory Rate 18 11/08/16 23:08 Blood Pressure 115/69 11/08/16 23:08 O2 Sat by Pulse Oximetry 96 11/08/16 23:08 Oxygen Delivery Oxygen Delivery Nasal Cannula Shortness of Breath/Dyspnea - MDM Narrative Medical decision making narrative: Patient feeling much better after receiving aerosol nebulizer treatments. In addition the patient was given prednisone. The patient does have leukocytosis which is likely reactive associative prednisone but she does have a right opacity in the right lung base. We will begin the patient on cefepime as well as vancomycin with concern for possible age Given the fact that she was recently admitted to the hospital. We will admit the patient to the hospital at this time. Patient agrees to plan. Accepted by hospitalist CAR SALTER. - Lab Data Lab results reviewed: Yes I reviewed the patient's lab results. Result diagrams: 11/08/16 16:36 11/08/16 16:36 Lab Results 11/08/16 11/08/16 11/08/16 Range/Units 16:36 16:36 16:36 WBC 18.4 H D (4.3-11.1) K/mcL RBC 4.53 (3.82-4.97) M/mcL Hgb 13.4 (11.5-15.4) g/dL Hct 39.9 (35.3-44.9) % MCV 88.1 (83.0-100.0) fL MCH 29.6 (28.0-33.3) pg MCHC 33.6 (31.6-35.5) g/dL RDW 12.7 (11.5-14.5) % Plt Count 354 (140-400) K/mcL MPV 8.8 L (9.4-12.4) fL Immature Gran % 0.7 (0-4) % Seg Neutrophils % 92.2 % Lymphocytes % 3.5 % Monocytes % 3.5 % Eosinophils % 0.0 % Basophils % 0.1 % Neutrophils # 17.0 H (1.6-8.9) K/mcL Lymphocytes # 0.6 (0.6-4.6) K/mcL Monocytes # 0.6 (0.0-1.3) K/mcL Eosinophils # 0.0 (0.0-0.6) K/mcL Basophils # 0.0 (0.0-0.2) K/mcL VBG pH (7.32-7.42) pH Units VBG pCO2 (41-51) mmHg VBG pO2 (25-40) mmHg VBG HCO3 (21-27) mEq/L Sodium 128 L (136-145) mEq/L Potassium 4.0 (3.5-4.5) mEq/L Chloride 94 L (98-109) mEq/L Carbon Dioxide 23 (19-29) mEq/L BUN 11 (7-20) mg/dL Creatinine 0.65 (0.57-1.11) mg/dL Est GFR ( Amer) > 60 (> 60) Est GFR (Non-Af Amer) > 60 (> 60) BUN/Creatinine Ratio 17 (6-26) Glucose 113 H (70-99) mg/dL Calculated Osmolality 266 L (280-300) Calcium 9.2 (8.6-10.8) mg/dL Troponin I 0.01 (0-0.03) ng/mL 11/08/16 Range/Units 16:36 WBC (4.3-11.1) K/mcL RBC (3.82-4.97) M/mcL Hgb (11.5-15.4) g/dL Hct (35.3-44.9) % MCV (83.0-100.0) fL MCH (28.0-33.3) pg MCHC (31.6-35.5) g/dL RDW (11.5-14.5) % Plt Count (140-400) K/mcL MPV (9.4-12.4) fL Immature Gran % (0-4) % Seg Neutrophils % % Lymphocytes % % Monocytes % % Eosinophils % % Basophils % % Neutrophils # (1.6-8.9) K/mcL Lymphocytes # (0.6-4.6) K/mcL Monocytes # (0.0-1.3) K/mcL Eosinophils # (0.0-0.6) K/mcL Basophils # (0.0-0.2) K/mcL VBG pH 7.45 H (7.32-7.42) pH Units VBG pCO2 39 L (41-51) mmHg VBG pO2 60 H (25-40) mmHg VBG HCO3 27 (21-27) mEq/L Sodium (136-145) mEq/L Potassium (3.5-4.5) mEq/L Chloride (98-109) mEq/L Carbon Dioxide (19-29) mEq/L BUN (7-20) mg/dL Creatinine (0.57-1.11) mg/dL Est GFR ( Amer) (> 60) Est GFR (Non-Af Amer) (> 60) BUN/Creatinine Ratio (6-26) Glucose (70-99) mg/dL Calculated Osmolality (280-300) Calcium (8.6-10.8) mg/dL Troponin I (0-0.03) ng/mL - Radiology Data Radiology results reviewed: Yes I reviewed the patient's radiology results. - EKG Data EKG attestation: Yes I reviewed and interpreted this EKG. EKG results narrative: Heart rate 10 8 bpm. SD interval 150 ms. QTC 364. Normal axis. Sinus tachycardia. No ST elevation or ST depression noted. EKG similar in appearance to EKG from 10/18/2016. No acute changes noted. Attestation Statement - Attestation Attestation: I examined this patient and my medical decision-making was reviewed with the Resident Physician. I agree with the documented findings, disposition and treatment plan as described except to the extent set forth below. Female patient with COPD. Now with concern for COPD exacerbation. She is dyspneic on arrival. She is refusing BiPAP. She does have evidence of pneumonia. There is concern for hcap, antibiotics were initiated. Cultures were obtained. The patient was given bronchodilators and steroids. She will be admitted for further evaluation. I spent greater than 35 minutes of critical care time resuscitating this acutely ill patient suffering hypoxia and dyspnea. This is explained elbow procedures.
[2016-11-08 16:53] LABS: BUN/Creatinine Ratio 17 (6-26); Blood Urea Nitrogen 11 mg/dL (7-20); Calcium 9.2 mg/dL (8.6-10.8); Carbon Dioxide 23 mEq/L (19-29); Chloride 94 mEq/L (98-109); Glucose 113 mg/dL (70-99); Osmolality,Calculated 266 (280-300); Sodium 128 mEq/L (136-145); eGFR For African Americans > 60 (> 60); eGFR For Non-African Americans > 60 (> 60)
[2016-11-08] MEDS ORDERED: 0.9 % Sodium Chloride 500 ML IVC ONE ×2 (17:10→20:11)
[2016-11-08] MEDS ORDERED: Vancomycin 1,000 MG in D5% in Water 250 ML IVPB ONE (17:14)
[2016-11-08] MEDS ORDERED: Cefepime HCl 1,000 MG in D5% in Water (Mini-Bag+) 100 ML IVPB STA (17:15)
[2016-11-08] MEDS ORDERED: Albuterol Neb 1.25 MG/3 ML VIAL IH ONE (17:23)
[2016-11-08] MEDS ORDERED: Albuterol 2.5 MG/3 ML NEBULIZER ONE (17:55)
[2016-11-08] MEDS ORDERED: Albuterol 2.5 MG/3 ML NEBULIZER AER ONE (18:00)
[2016-11-08] MEDS ORDERED: Naloxone 0.4 MG/ML INJ IVP PRN (19:19)
[2016-11-08] MEDS ORDERED: traZODone 50 MG TABLET PO SCH (21:00)
--- NOTE | 2016-11-08 21:32 | Internal Med History&Physical ---
<Kylah Salinas M - Last Filed: 11/08/16 21:26> Date of Encounter: 11/08/16 Time of Encounter: 21:26 Assessment and Plan (1) Healthcare-associated pneumonia Current visit: Yes Status: Acute Patient recently hospitalized for bronchoscopy and biopsy of hilar mass, discharged yesterday. She presents today with increased shortness of breath, productive cough, chills, sweats. WBC up to 18.4 from 6 yesterday. CXR shows new opacity in right lung base. Treating as HCAP due to recent admission with Cefepime and Vanc. Sputum and blood cultures ordered. Legionella Ag ordered. IV fluids 0.9NS at 100mL/hr. Duoneb treatments QID. Albuterol nebulizer Q2hr PRN. Titrate O2 to maintain saturation. (2) Sepsis Current visit: Yes Status: Acute Patient with pneumonia, elevated WBC count of 18.4, tachypnea and tachycardia, meeting criteria for sepsis. Blood cultures, sputum cultures, legionella Ag ordered. Lactate ordered Patient given 1L bolus in ED. Will continue with another 500mL bolus followed by 0.9NS at 100mL/hr Broad spectrum antibiotics initiated with vanc and cefepime. Qualifiers: Sepsis type: sepsis due to unspecified organism Qualified Code(s): A41.9 - Sepsis, unspecified organism (3) Acute exacerbation of COPD with asthma Current visit: Yes Status: Acute Patient with increased shortness of breath and productive cough. She has baseline COPD. She has pneumonia, but also COPD exacerbation today. Duoneb treatments QID Albuterol nebulizer Q2PRN continue home doses of COPD medications Prednisone 60mg daily titrate oxygen to maintain saturation. (4) Acute and chronic respiratory failure ([id number]) Current visit: Yes Status: Acute Patient wears 2L of oxygen PRN and home, but has needed 24/7 oxygen and increased to 2.5 or 3 in order to feel comfortable. She has pneumonia and COPD exacerbation today. Will treat with antibiotics, duoneb treatments, steroids. Titrate oxygen to maintain saturation. Qualifiers: Respiratory failure complication: hypoxia Qualified Code(s): J96.21 - Acute and chronic respiratory failure with hypoxia (5) Hyponatremia Current visit: Yes Status: Acute Sodium of 128. She appears to be chronically hyponatremic, but this is worse than baseline. Concern for malignant cause given right hilar mass. Biopsy completed on Saturday, results are pending. Normal saline given, will recheck chemistry with morning labs. (6) DVT prophylaxis Current visit: Yes Status: Acute anti-embolic stockings Heparin SQ TID Internal Medicine - H&P: HPI Chief complaint: shortness of breath, cough Admitted From: Emergency Dept Plans for Post Hospital Care: Home History of present illness: Ms. Keenan is a 61 year old female with hypertension, COPD presents to emergency department today with complaints of increased shortness of breath and sputum production. She was discharged yesterday after having a bronchoscopy for a hilar mass. She reports that since her discharge she had increasing shortness of breath, increased oxygen requirements, productive cough, chills and sweats. She denies any nausea, vomiting, abdominal pain or diarrhea. She denies any chest pain, palpitations, headache or lightheadedness. Evaluation in the emergency department included a chest x-ray showed new opacity in the right lung base. EKG showed sinus tachycardia. White blood cell count was elevated at 18.4, while patient is on steroids her blood cell count yesterday was normal and this represents a significant increase. She was hyponatremic with sodium of 128 as well. Was negative at 0.01. She was tachypnic and tachycardic. On exam, patient alert and oriented. Heart has regular rhythm with tachycardic rate. lungs with scattered bilateral rhonchi and rales. She is mildly diaphoretic. Past Med Surg Social Fam HX - Past Medical History Medical history: COPD, hypertension Psychiatric history: anxiety, depression - Past Surgical History Surgical History: hysterectomy - Social History Smoking Status: Former smoker Smokeless Tobacco Status: No Alcohol use: none Drug use: opiates, other - Family History Sister Living Status: Still Living Hx Family Cardiac Disorders: Yes (HTN) Hx Family Cancer: Yes (cervical) Mother Living Status: Cause of : AAA Father Living Status: Cause of : HI Hx Family Cardiac Disorders: Yes Internal Medicine - H&P: Meds DULoxetine [Cymbalta] 30 mg PO HS 02/15/16 [History] Trazodone HCl 200 mg PO HS 02/15/16 [History] Melatonin/Pyridoxine HCl (B6) [Melatonin 3 mg Tablet] 3 mg PO HS 05/02/16 [ History] Albuterol Neb [Proventil Neb] 2.5 mg IH Q6H PRN 10/14/16 [History] Albuterol Sulfate [Albuterol Inhaler] 2 puff IH Q6H PRN 10/14/16 [History] Budesonide/Formoterol 160/4.5 [Symbicort 160/4.5] 2 puff IH BIDR 10/14/16 [ History] Oxygen 2 l .ROUTE AD 10/14/16 [History] Tiotropium [Spiriva] 18 mcg IH DAILY 10/14/16 [History] Nicotine Patch [Nicoderm] 21 mg TD DAILY #30 patch.td24 10/17/16 [Rx] amLODIPine [Norvasc] 5 mg PO DAILY #30 tab 10/17/16 [Rx] predniSONE [PredniSONE] 40 mg PO DAILY 5 Days #10 tablet 11/07/16 [Rx] 3 Allergy/AdvReac Type Severity Reaction Status Date / Time No Known Allergies Allergy Verified 10/14/16 13:33 All Systems PM: A 10-system review of systems was performed and is negative for pertinent findings except as documented above in the HPI. - Constitutional Constitutional: chills, no fever(s), no night sweats - EENT Eyes: no change in vision, no discharge, no pain, no photophobia Ears: no ear discharge, no ear pain, no tinnitus Nose, mouth and throat: no dysphagia, no nasal discharge, no neck pain, no sore throat - Cardiovascular Cardiovascular ROS IM: diaphoresis, dyspnea, dyspnea on exertion, no chest pain , no lightheadedness, no palpitations, no syncope - Respiratory Respiratory: cough, dyspnea, wheezing, chest congestion, excessive phlegm production - Gastrointestinal Gastrointestinal: no abdominal pain, no diarrhea, no hematemesis, no hematochezia, no melena, no nausea, no vomiting - Genitourinary Genitourinary: no change in urinary stream, no dysuria, no flank pain, no hematuria - Musculoskeletal Musculoskeletal ROS IM: no numbness, no tingling - Integumentary Integumentary IM: no rash, no unusual bruising - Neurological Neurological ROS: no confusion, no convulsions, no focal weakness, no numbness, no tingling, no tremor(s) - Hematologic/Lymphatic Hematologic/Lymphatic: no easy bruising - Constitutional Vitals: Temp Pulse Resp BP Pulse Ox 98.4 F 114 18 135/75 93 11/08/16 20:30 11/08/16 20:30 11/08/16 20:30 11/08/16 20:30 11/08/16 20:30 General appearance: Present: mild distress, A&O X 3, pleasant - Head Head exam: Present: atraumatic, normocephalic - Eye Eye exam: Present: PERRL, conjuntiva pink, sclera anicteric Pupils: Present: PERRL - Neck Neck exam general surgery: Present: supple, trachea midline. Absent: lymphadenopathy - Respiratory Respiratory exam: Present: rales, rhonchi, tachypnea. Absent: accessory muscle use, wheezes - Cardiovascular Cardiovascular exam: Present: RRR, +S1, +S2, tachycardia. Absent: diastolic murmur, gallop, rubs, systolic murmur - GI/Abdominal GI/Abdominal exam: Present: normal bowel sounds, soft, no peritoneal signs. Absent: distended, tenderness - Extremities Exam Extremities exam: Present: warm, radial pulses palpable and symmetrical. Absent : calf tenderness, cyanotic, pedal edema - Neurological Exam Neurological exam: Present: CN II-XII intact, oriented X3, no focal deficits. Absent: pronater drift, facial droop, speech deficit - Skin Skin exam: Present: diaphoretic, intact Internal Med - H&P Results - Labs CBC & Chem 7: 11/08/16 16:36 11/08/16 16:36 Labs: All Lab Results (24 Hours) 11/08/16 11/08/16 11/08/16 Range/Units 16:36 16:36 16:36 WBC 18.4 H D (4.3-11.1) K/mcL RBC 4.53 (3.82-4.97) M/mcL Hgb 13.4 (11.5-15.4) g/dL Hct 39.9 (35.3-44.9) % MCV 88.1 (83.0-100.0) fL MCH 29.6 (28.0-33.3) pg MCHC 33.6 (31.6-35.5) g/dL RDW 12.7 (11.5-14.5) % Plt Count 354 (140-400) K/mcL MPV 8.8 L (9.4-12.4) fL Immature Gran % 0.7 (0-4) % Seg Neutrophils % 92.2 % Lymphocytes % 3.5 % Monocytes % 3.5 % Eosinophils % 0.0 % Basophils % 0.1 % Neutrophils # 17.0 H (1.6-8.9) K/mcL Lymphocytes # 0.6 (0.6-4.6) K/mcL Monocytes # 0.6 (0.0-1.3) K/mcL Eosinophils # 0.0 (0.0-0.6) K/mcL Basophils # 0.0 (0.0-0.2) K/mcL VBG pH (7.32-7.42) pH Units VBG pCO2 (41-51) mmHg VBG pO2 (25-40) mmHg VBG HCO3 (21-27) mEq/L Sodium 128 L (136-145) mEq/L Potassium 4.0 (3.5-4.5) mEq/L Chloride 94 L (98-109) mEq/L Carbon Dioxide 23 (19-29) mEq/L BUN 11 (7-20) mg/dL Creatinine 0.65 (0.57-1.11) mg/dL Est GFR ( Amer) > 60 (> 60) Est GFR (Non-Af Amer) > 60 (> 60) BUN/Creatinine Ratio 17 (6-26) Glucose 113 H (70-99) mg/dL Calculated Osmolality 266 L (280-300) Calcium 9.2 (8.6-10.8) mg/dL Troponin I 0.01 (0-0.03) ng/mL 11/08/16 Range/Units 16:36 WBC (4.3-11.1) K/mcL RBC (3.82-4.97) M/mcL Hgb (11.5-15.4) g/dL Hct (35.3-44.9) % MCV (83.0-100.0) fL MCH (28.0-33.3) pg MCHC (31.6-35.5) g/dL RDW (11.5-14.5) % Plt Count (140-400) K/mcL MPV (9.4-12.4) fL Immature Gran % (0-4) % Seg Neutrophils % % Lymphocytes % % Monocytes % % Eosinophils % % Basophils % % Neutrophils # (1.6-8.9) K/mcL Lymphocytes # (0.6-4.6) K/mcL Monocytes # (0.0-1.3) K/mcL Eosinophils # (0.0-0.6) K/mcL Basophils # (0.0-0.2) K/mcL VBG pH 7.45 H (7.32-7.42) pH Units VBG pCO2 39 L (41-51) mmHg VBG pO2 60 H (25-40) mmHg VBG HCO3 27 (21-27) mEq/L Sodium (136-145) mEq/L Potassium (3.5-4.5) mEq/L Chloride (98-109) mEq/L Carbon Dioxide (19-29) mEq/L BUN (7-20) mg/dL Creatinine (0.57-1.11) mg/dL Est GFR ( Amer) (> 60) Est GFR (Non-Af Amer) (> 60) BUN/Creatinine Ratio (6-26) Glucose (70-99) mg/dL Calculated Osmolality (280-300) Calcium (8.6-10.8) mg/dL Troponin I (0-0.03) ng/mL - Diagnostic Studies Chest x-ray Additional comments: Chest X-Ray 11/08/16 16:21 IMPRESSION: Names as above concerning for infection. Recommend short interval follow-up. D/ / Lidya Armando MD / Lidya Armando MD Interpreting Provider: Lidya Armando MD <Everette Dick T - Last Filed: 11/08/16 23:43> Date of Encounter: 11/08/16 Internal Medicine - H&P: HPI History of present illness: Ms. Keenan is a 61 year old female All Systems PM: A 10-system review of systems was performed and is negative for pertinent findings except as documented above in the HPI. - Constitutional Vitals: Temp Pulse Resp BP Pulse Ox 97.4 F L 106 18 115/69 96 11/08/16 23:08 11/08/16 23:08 11/08/16 23:08 11/08/16 23:08 11/08/16 23:08 Internal Med - H&P Results - Labs CBC & Chem 7: 11/08/16 16:36 11/08/16 16:36 - Attending Attestation I have independently seen and examined this patient on 11/08/16 and reviewed plan of care with the [employer]/resident physician and the patient 61 F with COPD, Lung mass suspicious for CA< heavy tobacco use, recently discharged after management for COPDE and biopsy for lung mass represents with worsening cough with sputum production, shortness of breath. Exam; Afebrile, tachycardic, tachypneic, able to complete sentences, alert, awake and oriented X3. Chets exam revealed bilateral rhonchi. HS S1, S2, tachycardic, abdomen is soft and not tender, no pedal edema, she has a R arm sling. Labs and Imaging reviewed: leukocytosis with left shift, hypo-osmolar hyponatremia 128. CXR with new L and R opacities Assessment Presumed sepsis secondary to HCAP HCAP COPDE Hilar mass HTN Tobacco abuse Plan Continue cefepime/vancomycin Monitor Na q6h, patient received lots of saline in ER Duonebs/Prednisone po Send sputum culture, urine legionella/strep Ag Rest of details as in [facility] documentation
[2016-11-08] MEDS: 0.9 % Sodium Chloride 1,000 ML IVC SCH (21:41)
[2016-11-08] MEDS: Nicotine 21 MG PATCH.TD24 TD SCH (21:46)
[2016-11-08] MEDS ORDERED: Vancomycin 750 MG in D5% in Water 250 ML IVPB SCH (22:00)
[2016-11-08] MEDS: Ipratropium/Albuterol Neb 3 ML IH SCH (22:54)
[2016-11-08] MEDS: Budesonide/Formoterol 160/4.5 MDI IH SCH (22:54)
[2016-11-09] MEDS: *HR* Heparin 5,000 UNIT/ML VIAL SQ SCH ×3 (01:03→17:30)
[2016-11-09] MEDS: Cefepime HCl 1,000 MG in D5% in Water (Mini-Bag+) 100 ML IVPB SCH ×3 (03:41→21:40)
[2016-11-09] MEDS: Ipratropium/Albuterol Neb 3 ML IH SCH ×4 (04:03→23:12)
[2016-11-09 05:14] LABS: Basophils % 0.1 %; Hematocrit 35.1 % (35.3-44.9); Immature Granulocytes % 0.4 % (0-4); Lymphocytes # 1.1 K/mcL (0.6-4.6); Lymphocytes % 8.5 %; Mean Corpuscular Hemoglobin 29.5 pg (28.0-33.3); Mean Corpuscular Volume 89.3 fL (83.0-100.0); Mean Platelet Volume 9.7 fL (9.4-12.4); Monocytes # 0.7 K/mcL (0.0-1.3); Monocytes % 5.3 %; Neutrophils # 10.8 K/mcL (1.6-8.9); Platelet Count 308 K/mcL (140-400); Red Blood Count 3.93 M/mcL (3.82-4.97); Red Cell Distribution Width 12.6 % (11.5-14.5); Segmented Neutrophils % 85.7 %
[2016-11-09 05:25] LABS: Hemoglobin 11.6 g/dL (11.5-15.4)
[2016-11-09 05:29] LABS: BUN/Creatinine Ratio 14 (6-26); Blood Urea Nitrogen 8 mg/dL (7-20); Calcium 8.4 mg/dL (8.6-10.8); Carbon Dioxide 23 mEq/L (19-29); Chloride 97 mEq/L (98-109); Glucose 146 mg/dL (70-99); Osmolality,Calculated 269 (280-300); Potassium 3.7 mEq/L (3.5-4.5); Sodium 129 mEq/L (136-145); eGFR For African Americans > 60 (> 60); eGFR For Non-African Americans > 60 (> 60)
[2016-11-09] MEDS: Vancomycin 750 MG in D5% in Water 250 ML IVPB SCH ×2 (06:00→17:27)
[2016-11-09] MEDS: predniSONE 20 MG TABLET PO SCH (08:06)
[2016-11-09] MEDS: Nicotine 21 MG PATCH.TD24 TD SCH (08:07)
[2016-11-09] MEDS: amLODIPine 5 MG TABLET PO SCH (08:07)
[2016-11-09] MEDS: Albuterol 2.5 MG/3 ML NEBULIZER IH PRN ×2 (08:29→19:49)
[2016-11-09] MEDS: Budesonide/Formoterol 160/4.5 MDI IH SCH ×2 (08:29→19:49)
[2016-11-09] MEDS: Tiotropium 18 MCG inhalation IH SCH (08:34)
--- NOTE | 2016-11-09 09:48 | Internal Med Progress Note ---
<Julien Marsh - Last Filed: 11/09/16 14:12> Date of Encounter: 11/09/16 Time of Encounter: 09:15 - Assessment and plan (1) Healthcare-associated pneumonia Current Visit: Yes Status: Acute Assessment and plan: Present upon admission. Likely HCAP as patient has several admissions in the last month. Unknown pathogen at this point. Likely bacterial in origin. Patient was just discharged on 11/07 after broncoscopy to biopsy R hilar mass. CXR shows new opacity. WBC trending down to 12.6 from 18.4 yesterday. Legionella Ag pending. Sputum, blood cultures pending. Continue Vanc and Cefepime. (2) Sepsis Current Visit: Yes Status: Acute Assessment and plan: Secondary to HCAP Pt had elevated WBC, tachycardia, tachypnea. Continue abx Continue IV fluids lactic acid negative. Qualifiers: Sepsis type: sepsis due to unspecified organism Qualified Code(s): A41.9 - Sepsis, unspecified organism (3) Acute exacerbation of COPD with asthma Current Visit: Yes Status: Acute Assessment and plan: Hx of COPD Exacerbation likely secondary to pneumonia continue duonebs, nebulizer, Prednisone, home COPD meds titrate Oxygen to maintain saturation 88-92%. (4) Acute and chronic respiratory failure ([id number]) Current Visit: Yes Status: Acute Assessment and plan: Pt on 2L of oxygen PRn at home. has needed oxygen time clerk since admission. Pneumonia and COPD exacerbation causing respiratory failure. continue oxygen, treat underlyign cuase. Qualifiers: Respiratory failure complication: hypoxia Qualified Code(s): J96.21 - Acute and chronic respiratory failure with hypoxia (5) Hyponatremia Current Visit: Yes Status: Acute Assessment and plan: Some element of chronic hyponatremia concern for malignant cause with Hilar mass. continue normal saline. continue to monitor - Subjective Interval history: Patient reports feeling SOB. She was recently hospitalized 11/06 for broncoscopy for biopsy of hilar mass first noted on x ray on 05/22/16. Found to be enlarged on admission on 10/14. - Constitutional Vitals: Temp Pulse Resp BP Pulse Ox 98.4 F 91 18 146/76 92 11/09/16 06:53 11/09/16 06:53 11/09/16 08:32 11/09/16 06:53 11/09/16 08:32 General appearance: Present: A&O X 3, pleasant - Head Head exam: Present: atraumatic, normocephalic - Eye Eye exam: Present: PERRL, conjuntiva pink, sclera anicteric Pupils: Present: PERRL - Neck Neck exam general surgery: Present: supple, trachea midline - Respiratory Respiratory exam: Present: rales (basilar), rhonchi (corse throughout). Absent : accessory muscle use, wheezes - Cardiovascular Cardiovascular exam: Present: RRR, +S1, +S2. Absent: diastolic murmur, gallop, rubs, systolic murmur - GI/Abdominal GI/Abdominal exam: Present: normal bowel sounds, soft, no peritoneal signs. Absent: distended, tenderness - Extremities Exam Extremities exam: Present: warm. Absent: calf tenderness, cyanotic, pedal edema - Neurological Exam Neurological exam: Present: alert, oriented X3, no focal deficits. Absent: facial droop, speech deficit - Skin Skin exam: Present: dry, intact Internal Medicine: Result - Labs CBC & Chem 7: 11/09/16 04:15 11/09/16 04:15 Labs: Short CBC 11/09/16 Range/Units 04:15 WBC 12.6 H (4.3-11.1) K/mcL Hgb 11.6 D (11.5-15.4) g/dL Hct 35.1 L (35.3-44.9) % Plt Count 308 (140-400) K/mcL Neutrophils # 10.8 H (1.6-8.9) K/mcL BMP 11/09/16 04:15 Sodium 129 L Potassium 3.7 Chloride 97 L Carbon Dioxide 23 BUN 8 Creatinine 0.59 Glucose 146 H Calcium 8.4 L Consult Discharge Plan - Plan Referrals: Lilibeth Templeton, [employer] REPAIR SUPERVISOR [Primary Care Provider] - 11/12/16 9:45 am <Inderjit Wade - Last Filed: 11/09/16 16:52> Date of Encounter: 11/09/16 - Constitutional Vitals: Temp Pulse Resp BP Pulse Ox 98.6 F 102 22 135/62 90 11/09/16 15:22 11/09/16 15:22 11/09/16 15:53 11/09/16 15:22 11/09/16 15:53 Internal Medicine: Result - Labs CBC & Chem 7: 11/09/16 04:15 11/09/16 04:15 Labs: Short CBC 11/09/16 Range/Units 04:15 WBC 12.6 H (4.3-11.1) K/mcL Hgb 11.6 D (11.5-15.4) g/dL Hct 35.1 L (35.3-44.9) % Plt Count 308 (140-400) K/mcL Neutrophils # 10.8 H (1.6-8.9) K/mcL BMP 11/09/16 04:15 Sodium 129 L Potassium 3.7 Chloride 97 L Carbon Dioxide 23 BUN 8 Creatinine 0.59 Glucose 146 H Calcium 8.4 L - Attending Attestation I examined this patient and my medical decision-making was reviewed with the Resident Physician. I agree with the documented findings, disposition and treatment plan as described except to the extent set forth below. cont present management.
[2016-11-09] MEDS: 0.9 % Sodium Chloride 1,000 ML IVC SCH (12:27)
[2016-11-09] MEDS: Levofloxacin 750 MG/150 ML 750 MG/150 ML BAG IVPB SCH (18:55)
[2016-11-09] MEDS: traZODone 50 MG TABLET PO SCH (21:40)
[2016-11-10] MEDS: 0.9 % Sodium Chloride 1,000 ML IVC SCH ×3 (00:38→22:13)
[2016-11-10] MEDS: *HR* Heparin 5,000 UNIT/ML VIAL SQ SCH ×3 (00:38→18:17)
[2016-11-10] MEDS: Ipratropium/Albuterol Neb 3 ML IH SCH ×4 (03:39→23:18)
[2016-11-10] MEDS: Cefepime HCl 1,000 MG in D5% in Water (Mini-Bag+) 100 ML IVPB SCH ×3 (05:24→20:05)
[2016-11-10] MEDS: Vancomycin 750 MG in D5% in Water 250 ML IVPB SCH (05:26)
[2016-11-10 05:47] LABS: Basophils % 0.2 %; Eosinophils % 0.2 %; Hematocrit 36.5 % (35.3-44.9); Hemoglobin 12.4 g/dL (11.5-15.4); Lymphocytes # 1.8 K/mcL (0.6-4.6); Lymphocytes % 14.6 %; Mean Corpuscular Hemoglobin 30.2 pg (28.0-33.3); Mean Corpuscular Volume 88.8 fL (83.0-100.0); Mean Platelet Volume 10.1 fL (9.4-12.4); Monocytes # 0.8 K/mcL (0.0-1.3); Monocytes % 6.3 %; Neutrophils # 9.7 K/mcL (1.6-8.9); Platelet Count 319 K/mcL (140-400); Red Blood Count 4.11 M/mcL (3.82-4.97); Red Cell Distribution Width 12.8 % (11.5-14.5); Segmented Neutrophils % 77.7 %
[2016-11-10 05:57] LABS: BUN/Creatinine Ratio 12 (6-26); Blood Urea Nitrogen 7 mg/dL (7-20); Calcium 8.8 mg/dL (8.6-10.8); Carbon Dioxide 22 mEq/L (19-29); Chloride 98 mEq/L (98-109); Glucose 73 mg/dL (70-99); Osmolality,Calculated 269 (280-300); Potassium 3.5 mEq/L (3.5-4.5); Sodium 131 mEq/L (136-145); eGFR For African Americans > 60 (> 60); eGFR For Non-African Americans > 60 (> 60)
[2016-11-10] MEDS: Albuterol 2.5 MG/3 ML NEBULIZER IH PRN ×2 (08:09→19:41)
[2016-11-10] MEDS: Budesonide/Formoterol 160/4.5 MDI IH SCH ×2 (08:09→19:41)
[2016-11-10] MEDS: Tiotropium 18 MCG inhalation IH SCH (08:12)
--- NOTE | 2016-11-10 08:41 | Internal Med Progress Note ---
Date of Encounter: 11/10/16 Time of Encounter: 08:36 - Assessment and plan (1) Healthcare-associated pneumonia Current Visit: Yes Status: Acute Assessment and plan: Present upon admission. Likely HCAP as patient has several admissions in the last month. Unknown pathogen at this point. Likely bacterial in origin. Patient was just discharged on 11/07 after broncoscopy to biopsy R hilar mass. CXR shows new opacity. WBC trending down to 12.6 from 18.4 yesterday. Legionella Ag pending. Sputum, blood cultures pending. Continue Vanc and Cefepime. 11/10/2016. Date of antibiotics. Presently on vancomycin/cefepime/levofloxacin. Vancomycin trough level is subtherapeutic. 48 Hours of blood culture negative for MRSA. Plan: -We will discontinue vancomycin. -We will continue cefepime/levofloxacin -We will keep close observation. (2) Sepsis Current Visit: Yes Status: Acute Assessment and plan: Secondary to HCAP Pt had elevated WBC, tachycardia, tachypnea. Continue abx Continue IV fluids lactic acid negative. 11/10/2016. Sepsis is resolving. White count improvement. Patient underwent bronchoscopy/bronchoalveolar lavage/E because of a right hilar mass. Preliminary examination of the right hilar mass bronchoscopy was suggestive of malignancy. This with the reason why patient is having daily in response in her treatment. Qualifiers: Sepsis type: sepsis due to unspecified organism Qualified Code(s): A41.9 - Sepsis, unspecified organism (3) Hypertension Current Visit: No Status: Acute Assessment and plan: Blood pressure is very well controlled and will continue same medication. Qualifiers: Hypertension type: unspecified Qualified Code(s): I10 - Essential (primary ) hypertension (4) Smoking Current Visit: No Status: Chronic Assessment and plan: Patient is an active smoker. State that she is still smoking. Extensive smoking cessation counseling was done. Patient is not willing to quit smoking. (5) DVT prophylaxis Current Visit: Yes Status: Acute Assessment and plan: Heparin Medical decision making: This patient has a possibility of worsening in spite of being on appropriate medication due to the underlying comorbid conditions. - Subjective Interval history: Patient seen and examined. Chart reviewed. Patient is comfortably lying in the bed. Patient denies chest pain but complains of occasional shortness of breath. Patient is very breathless even upon in a sitting up position. - Constitutional Vitals: Temp Pulse Resp BP Pulse Ox 98.0 F 107 20 148/80 98 11/10/16 06:47 11/10/16 06:47 11/10/16 08:09 11/10/16 06:47 11/10/16 08:09 General appearance: Present: A&O X 3, pleasant - Head Head exam: Present: atraumatic, normocephalic - Eye Eye exam: Present: PERRL, conjuntiva pink, sclera anicteric Pupils: Present: PERRL - Neck Neck exam general surgery: Present: supple, trachea midline. Absent: lymphadenopathy - Respiratory Respiratory exam: Present: CTAB, rhonchi. Absent: accessory muscle use, rales, wheezes - Cardiovascular Cardiovascular exam: Present: RRR, +S1, +S2. Absent: diastolic murmur, gallop, rubs, systolic murmur - GI/Abdominal GI/Abdominal exam: Present: normal bowel sounds, soft, no peritoneal signs. Absent: distended, tenderness - Extremities Exam Extremities exam: Present: warm, radial pulses palpable and symmetrical. Absent : calf tenderness, cyanotic, pedal edema - Neurological Exam Neurological exam: Present: CN II-XII intact, oriented X3, no focal deficits. Absent: pronater drift, facial droop, speech deficit - Skin Skin exam: Present: dry, intact Internal Medicine: Result - Labs CBC & Chem 7: 11/10/16 04:43 11/10/16 04:43 Labs: Short CBC 11/10/16 Range/Units 04:43 WBC 12.5 H (4.3-11.1) K/mcL Hgb 12.4 (11.5-15.4) g/dL Hct 36.5 (35.3-44.9) % Plt Count 319 (140-400) K/mcL Neutrophils # 9.7 H (1.6-8.9) K/mcL BMP 11/10/16 04:43 Sodium 131 L Potassium 3.5 Chloride 98 Carbon Dioxide 22 BUN 7 Creatinine 0.60 Glucose 73 Calcium 8.8 Consult Discharge Plan - Plan Referrals: Lilibeth Templeton, YAM CURER [Primary Care Provider] - 11/12/16 9:45 am
[2016-11-10 10:27] LABS: ABG Base Excess 7.4 mEq/L (-2.0 to 3.0); ABG HCO3 31 mEq/L (21-27); ABG Oxygen Saturation 97 % (95-98); ABG PCO2 40 mmHg (35-45); ABG PO2 84 mmHg (85-104); ABG TCO2 32 mEq/L (20-26)
[2016-11-10 10:28] LABS: Blood Gas Modality NC
[2016-11-10] MEDS: Nicotine 21 MG PATCH.TD24 TD SCH (10:38)
[2016-11-10] MEDS: Levofloxacin 750 MG/150 ML 750 MG/150 ML BAG IVPB SCH (10:39)
[2016-11-10] MEDS: predniSONE 20 MG TABLET PO SCH (10:39)
[2016-11-10] MEDS: amLODIPine 5 MG TABLET PO SCH (10:40)
[2016-11-10] MEDS ORDERED: Aminoglycoside Consult 1 EACH MC ONE (13:13)
[2016-11-10] MEDS ORDERED: Vancomycin 1,000 MG in D5% in Water 250 ML IVPB SCH (16:00)
[2016-11-10] MEDS: traZODone 50 MG TABLET PO SCH (20:06)
[2016-11-11] MEDS: *HR* Heparin 5,000 UNIT/ML VIAL SQ SCH ×4 (00:42→23:29)
[2016-11-11] MEDS: Ipratropium/Albuterol Neb 3 ML IH SCH ×4 (04:01→22:47)
[2016-11-11] MEDS: Cefepime HCl 1,000 MG in D5% in Water (Mini-Bag+) 100 ML IVPB SCH ×3 (05:12→20:00)
[2016-11-11 06:49] LABS: Basophils % 0.2 %; Eosinophils % 0.2 %; Hematocrit 35.7 % (35.3-44.9); Hemoglobin 12.2 g/dL (11.5-15.4); Immature Granulocytes % 0.5 % (0-4); Lymphocytes # 1.8 K/mcL (0.6-4.6); Lymphocytes % 16.7 %; Mean Corpuscular HGB Conc 34.2 g/dL (31.6-35.5); Mean Corpuscular Hemoglobin 29.8 pg (28.0-33.3); Mean Corpuscular Volume 87.3 fL (83.0-100.0); Mean Platelet Volume 9.4 fL (9.4-12.4); Monocytes # 0.8 K/mcL (0.0-1.3); Neutrophils # 7.8 K/mcL (1.6-8.9); Platelet Count 358 K/mcL (140-400); Red Blood Count 4.09 M/mcL (3.82-4.97); Red Cell Distribution Width 12.5 % (11.5-14.5); Segmented Neutrophils % 74.4 %
[2016-11-11 07:06] LABS: Alanine Aminotransferase 13 Units/L (0-55); Albumin 2.5 g/dL (3.5-5.0); Albumin/Globulin Ratio 0.8 (1.1-2.2); Alkaline Phosphatase 70 Units/L (38-126); Aspartate Amino Transferase 10 Units/L (5-34); BUN/Creatinine Ratio 14 (6-26); Bilirubin,Total 0.5 mg/dL (0.2-1.2); Blood Urea Nitrogen 8 mg/dL (7-20); Calcium 8.8 mg/dL (8.6-10.8); Carbon Dioxide 28 mEq/L (19-29); Chloride 96 mEq/L (98-109); Globulin 3.1 g/dL (2.4-3.5); Glucose 91 mg/dL (70-99); Osmolality,Calculated 268 (280-300); Sodium 130 mEq/L (136-145); Total Protein 5.6 g/dL (6.0-8.3); eGFR For African Americans > 60 (> 60); eGFR For Non-African Americans > 60 (> 60)
[2016-11-11] MEDS: Tiotropium 18 MCG inhalation IH SCH (07:23)
[2016-11-11] MEDS: Albuterol 2.5 MG/3 ML NEBULIZER IH PRN ×2 (07:36→20:52)
[2016-11-11] MEDS: Budesonide/Formoterol 160/4.5 MDI IH SCH ×2 (07:36→20:53)
[2016-11-11] MEDS: 0.9 % Sodium Chloride 1,000 ML IVC SCH (08:13)
[2016-11-11] MEDS: Levofloxacin 750 MG/150 ML 750 MG/150 ML BAG IVPB SCH (08:14)
[2016-11-11] MEDS: Nicotine 21 MG PATCH.TD24 TD SCH (08:14)
[2016-11-11] MEDS: predniSONE 20 MG TABLET PO SCH (08:15)
[2016-11-11] MEDS: amLODIPine 5 MG TABLET PO SCH (08:15)
--- NOTE | 2016-11-11 16:19 | Internal Med Progress Note ---
Date of Encounter: 11/11/16 Time of Encounter: 16:16 - Assessment and plan (1) Healthcare-associated pneumonia Current Visit: Yes Status: Acute Assessment and plan: Present upon admission. Likely HCAP as patient has several admissions in the last month. Unknown pathogen at this point. Likely bacterial in origin. Patient was just discharged on 11/07 after broncoscopy to biopsy R hilar mass. CXR shows new opacity. WBC trending down to 12.6 from 18.4 yesterday. Legionella Ag pending. Sputum, blood cultures pending. Continue Vanc and Cefepime. 11/10/2016. Date of antibiotics. Presently on vancomycin/cefepime/levofloxacin. Vancomycin trough level is subtherapeutic. 48 Hours of blood culture negative for MRSA. Plan: -We will discontinue vancomycin. -We will continue cefepime/levofloxacin -We will keep close observation. 11/11/2016 Day 3 antibiotics. Presently on cefepime/levofloxacin. Blood culture still negative so far. We will continue present treatment. Close observation. We will get pulmonology opinion tomorrow. (2) Sepsis Current Visit: Yes Status: Acute Assessment and plan: Secondary to HCAP Pt had elevated WBC, tachycardia, tachypnea. Continue abx Continue IV fluids lactic acid negative. 11/10/2016. Sepsis is resolving. White count improvement. Patient underwent bronchoscopy/bronchoalveolar lavage/E because of a right hilar mass. Preliminary examination of the right hilar mass bronchoscopy was suggestive of malignancy. This with the reason why patient is having daily in response in her treatment. 11/11/2016 Likely source the source of sepsis is lung. Presently on antibiotics. Will continue same treatment. Qualifiers: Sepsis type: sepsis due to unspecified organism Qualified Code(s): A41.9 - Sepsis, unspecified organism (3) Hypertension Current Visit: No Status: Acute Assessment and plan: Blood pressure is very well controlled and will continue same medication. Qualifiers: Hypertension type: unspecified Qualified Code(s): I10 - Essential (primary ) hypertension (4) Smoking Current Visit: No Status: Chronic Assessment and plan: Patient is an active smoker. State that she is still smoking. Extensive smoking cessation counseling was done. Patient is not willing to quit smoking. (5) DVT prophylaxis Current Visit: Yes Status: Acute Assessment and plan: Heparin Medical decision making: This patient has a possibility of worsening in spite of being on appropriate medication due to the underlying comorbid conditions. - Subjective Interval history: Patient seen and examined. Chart reviewed. Patient is comfortably lying in the bed. Patient denies chest pain but complains of occasional shortness of breath. Patient is very breathless even upon in a sitting up position. 11/11/2016 Patient seen and examined. Chart reviewed. Multiple family members at the bedside. Discussed with them and get them updated regarding patient's condition. patient feels much better as compared to yesterday. - Constitutional Vitals: Temp Pulse Resp BP Pulse Ox 97.5 F L 81 20 141/72 94 11/11/16 15:47 11/11/16 15:47 11/11/16 15:47 11/11/16 15:47 11/11/16 15:47 General appearance: Present: A&O X 3, pleasant - Head Head exam: Present: atraumatic, normocephalic - Eye Eye exam: Present: PERRL, conjuntiva pink, sclera anicteric Pupils: Present: PERRL - Neck Neck exam general surgery: Present: supple, trachea midline. Absent: lymphadenopathy - Respiratory Respiratory exam: Present: CTAB. Absent: accessory muscle use, rales, rhonchi, wheezes - Cardiovascular Cardiovascular exam: Present: RRR, +S1, +S2. Absent: diastolic murmur, gallop, rubs, systolic murmur - GI/Abdominal GI/Abdominal exam: Present: normal bowel sounds, soft, no peritoneal signs. Absent: distended, tenderness - Extremities Exam Extremities exam: Present: warm, radial pulses palpable and symmetrical. Absent : calf tenderness, cyanotic, pedal edema - Neurological Exam Neurological exam: Present: CN II-XII intact, oriented X3, no focal deficits. Absent: pronater drift, facial droop, speech deficit - Skin Skin exam: Present: dry, intact Internal Medicine: Result - Labs CBC & Chem 7: 11/11/16 06:31 11/11/16 06:31 Labs: Short CBC 11/11/16 Range/Units 06:31 WBC 10.5 (4.3-11.1) K/mcL Hgb 12.2 (11.5-15.4) g/dL Hct 35.7 (35.3-44.9) % Plt Count 358 (140-400) K/mcL Neutrophils # 7.8 (1.6-8.9) K/mcL BMP 11/11/16 06:31 Sodium 130 L Potassium 3.0 L Chloride 96 L Carbon Dioxide 28 BUN 8 Creatinine 0.56 L Glucose 91 Calcium 8.8 Liver Function 11/11/16 Range/Units 06:31 Total Bilirubin 0.5 (0.2-1.2) mg/dL AST 10 (5-34) Units/L ALT 13 (0-55) Units/L Alkaline Phosphatase 70 (38-126) Units/L Albumin 2.5 L (3.5-5.0) g/dL - ABG Interpretation ABG results: ABG ABG pH 7.50 pH Units (7.32-7.45) H 11/10/16 10:22 ABG pCO2 40 mmHg (35-45) 11/10/16 10:22 ABG pO2 84 mmHg (85-104) L 11/10/16 10:22 ABG O2 Saturation 97 % (95-98) 11/10/16 10:22 Consult Discharge Plan - Plan Referrals: Lilibeth Templeton, SUPERVISING ARCHITECT [Primary Care Provider] - 11/12/16 9:45 am
[2016-11-11] MEDS: traZODone 50 MG TABLET PO SCH (19:59)
[2016-11-11] MEDS: Lactobacillus 1 EACH CAP.SPRINK PO SCH (19:59)
[2016-11-12] MEDS: Ipratropium/Albuterol Neb 3 ML IH SCH ×6 (00:14→20:32)
[2016-11-12] MEDS: Cefepime HCl 1,000 MG in D5% in Water (Mini-Bag+) 100 ML IVPB SCH ×3 (03:06→20:16)
[2016-11-12 04:10] LABS: Alanine Aminotransferase 13 Units/L (0-55); Albumin 2.6 g/dL (3.5-5.0); Albumin/Globulin Ratio 0.8 (1.1-2.2); Alkaline Phosphatase 70 Units/L (38-126); Aspartate Amino Transferase 9 Units/L (5-34); BUN/Creatinine Ratio 14 (6-26); Bilirubin,Total 0.4 mg/dL (0.2-1.2); Blood Urea Nitrogen 8 mg/dL (7-20); Calcium 8.9 mg/dL (8.6-10.8); Carbon Dioxide 28 mEq/L (19-29); Chloride 95 mEq/L (98-109); Globulin 3.1 g/dL (2.4-3.5); Glucose 116 mg/dL (70-99); Osmolality,Calculated 273 (280-300); Potassium 2.8 mEq/L (3.5-4.5); Sodium 132 mEq/L (136-145); Total Protein 5.7 g/dL (6.0-8.3); eGFR For African Americans > 60 (> 60); eGFR For Non-African Americans > 60 (> 60)
[2016-11-12 04:13] LABS: Basophils % 0.1 %; Eosinophils # 0.1 K/mcL (0.0-0.6); Eosinophils % 0.5 %; Hematocrit 36.9 % (35.3-44.9); Hemoglobin 12.3 g/dL (11.5-15.4); Lymphocytes # 2.1 K/mcL (0.6-4.6); Lymphocytes % 20.6 %; Mean Corpuscular HGB Conc 33.3 g/dL (31.6-35.5); Mean Corpuscular Hemoglobin 29.6 pg (28.0-33.3); Mean Corpuscular Volume 88.9 fL (83.0-100.0); Mean Platelet Volume 9.3 fL (9.4-12.4); Monocytes # 0.8 K/mcL (0.0-1.3); Monocytes % 7.9 %; Neutrophils # 7.3 K/mcL (1.6-8.9); Platelet Count 393 K/mcL (140-400); Red Blood Count 4.15 M/mcL (3.82-4.97); Red Cell Distribution Width 12.5 % (11.5-14.5); Segmented Neutrophils % 69.9 %
[2016-11-12] MEDS: Budesonide/Formoterol 160/4.5 MDI IH SCH ×2 (08:13→20:32)
[2016-11-12] MEDS ORDERED: Potassium Chloride Elixir 20 MEQ/15 ML UDC PO ONE ×2 (08:16→14:46)
[2016-11-12] MEDS: Tiotropium 18 MCG inhalation IH SCH (08:16)
[2016-11-12 08:27] LABS: Magnesium 1.7 mg/dL (1.6-2.6)
[2016-11-12] MEDS: Nicotine 21 MG PATCH.TD24 TD SCH (08:34)
[2016-11-12] MEDS: Levofloxacin 750 MG/150 ML 750 MG/150 ML BAG IVPB SCH (08:35)
[2016-11-12] MEDS: predniSONE 20 MG TABLET PO SCH (08:35)
[2016-11-12] MEDS: amLODIPine 5 MG TABLET PO SCH (08:35)
[2016-11-12] MEDS: Lactobacillus 1 EACH CAP.SPRINK PO SCH ×2 (08:35→20:16)
[2016-11-12] MEDS: *HR* Heparin 5,000 UNIT/ML VIAL SQ SCH ×3 (08:35→23:50)
--- NOTE | 2016-11-12 08:35 | Electrocardiograph Report ---
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
--- NOTE | 2016-11-12 08:41 | Pulmonology Consult Note ---
Date of Encounter: 11/12/16 Time of Encounter: 08:00 Assessment and Plan (1) Acute and chronic respiratory failure ([id number]) Current Visit: Yes Status: Acute Patient clinically is feeling much better and the acute component is improving and wean off FiO2 to keep SPO2 around 90%. Qualifiers: Respiratory failure complication: hypoxia Qualified Code(s): J96.21 - Acute and chronic respiratory failure with hypoxia (2) Acute exacerbation of chronic obstructive airways disease Current Visit: Yes Status: Resolved Patient is improving and from pulmonary standpoint she can be discharged home on taper steroid and Levaquin for 7-10 days. (3) Pneumonia Current Visit: Yes Status: Acute This is improving, however with underlying malignancy from the hilar mass there is evidence of postobstructive pneumonia and suspect without treatment for the malignancy, she will have recurrent problem. Qualifiers: Pneumonia type: due to Haemophilus influenzae Laterality: right Lung location: lower lobe of lung Qualified Code(s): J14 - Pneumonia due to Hemophilus influenzae (4) Hilar mass Current Visit: No Status: Acute I called the pathology department and cytology still pending immunostain and hopefully either later today or most likely tomorrow it will be finalized. History of Present Illness Consult date: 11/12/16 Requesting physician: Inderjit Wade Reason for consult: COPD, pneumonia History of present illness: This is a pleasant 61-year-old female with advanced COPD who recently had bronchoscopy for the lung mass, which is preliminary malignant and final pathology still pending immunostain. Patient stated she was having more shortness of breath and productive cough which needed to increase her baseline oxygen. After bronchoscopy she was hospitalized for observation and then returned to emergency department which showed by x-ray opacity in the right side of the lung. Patient is feeling much better today and she is asking if she can go home. She has improved on current antibiotics and treatment. She Past Med Surg Social Fam HX - Past Medical History Medical history: COPD, hypertension Psychiatric history: anxiety, depression - Past Surgical History Surgical History: hysterectomy - Social History Smoking Status: Former smoker Smokeless Tobacco Status: No Alcohol use: none Drug use: opiates, other - Family History Sister Living Status: Still Living Hx Family Cardiac Disorders: Yes (HTN) Hx Family Cancer: Yes (cervical) Mother Living Status: Cause of : AAA Father Living Status: Cause of : [place] Hx Family Cardiac Disorders: Yes Medications and Allergies DULoxetine [Cymbalta] 30 mg PO HS 02/15/16 [History] Trazodone HCl 200 mg PO HS 02/15/16 [History] Melatonin/Pyridoxine HCl (B6) [Melatonin 3 mg Tablet] 3 mg PO HS 05/02/16 [ History] Albuterol Neb [Proventil Neb] 2.5 mg IH Q6H PRN 10/14/16 [History] Albuterol Sulfate [Albuterol Inhaler] 2 puff IH Q6H PRN 10/14/16 [History] Budesonide/Formoterol 160/4.5 [Symbicort 160/4.5] 2 puff IH BIDR 10/14/16 [ History] Oxygen 2 l .ROUTE AD 10/14/16 [History] Tiotropium [Spiriva] 18 mcg IH DAILY 10/14/16 [History] Nicotine Patch [Nicoderm] 21 mg TD DAILY #30 patch.td24 10/17/16 [Rx] amLODIPine [Norvasc] 5 mg PO DAILY #30 tab 10/17/16 [Rx] predniSONE [PredniSONE] 40 mg PO DAILY 5 Days #10 tablet 11/07/16 [Rx] 3 Allergy/AdvReac Type Severity Reaction Status Date / Time No Known Allergies Allergy Verified 10/14/16 13:33 All Systems: A 10-system review of systems was performed and is negative for pertinent findings except as documented above in the HPI. Physical Examination Vital Signs: Vital Signs, Last 4 Hours Temp Pulse Resp BP Pulse Ox 11/12/16 08:13 18 95 11/12/16 06:24 98.3 F 106 18 134/78 91 11/12/16 05:13 98.2 F 102 17 142/74 94 General appearance: no acute distress, other (She looks chronically ill) Eyes: nonicteric ENT: oropharynx moist Mallampati (class): 2 Neck: supple, no lymphadenopathy Effort: mildly labored (On exertion) Inspection: hyperextended Auscultation: right: rales, bilateral: diminished breath sounds Percussion: bilateral: not dull Tactile fremitus: bilateral: normal Cardiovascular: regular rate and rhythm Gastrointestinal: normoactive bowel sounds, non-distended Extremities: no cyanosis, no edema normal mental status, non-focal exam mood appropriate Results - Laboratory Findings CBC and BMP: 11/12/16 03:39 11/12/16 03:39 ABG ABG pH 7.50 pH Units (7.32-7.45) H 11/10/16 10:22 ABG pCO2 40 mmHg (35-45) 11/10/16 10:22 ABG pO2 84 mmHg (85-104) L 11/10/16 10:22 ABG O2 Saturation 97 % (95-98) 11/10/16 10:22 Abnormal lab findings: Abnormal lab results MPV 9.3 fL (9.4-12.4) L 11/12/16 03:39 ABG pH 7.50 pH Units (7.32-7.45) H 11/10/16 10:22 ABG pO2 84 mmHg (85-104) L 11/10/16 10:22 ABG HCO3 31 mEq/L (21-27) H 11/10/16 10:22 ABG Total CO2 32 mEq/L (20-26) H 11/10/16 10:22 ABG Base Excess 7.4 mEq/L (-2.0 to 3.0) H 11/10/16 10:22 VBG pH 7.45 pH Units (7.32-7.42) H 11/08/16 16:36 VBG pCO2 39 mmHg (41-51) L 11/08/16 16:36 VBG pO2 60 mmHg (25-40) H 11/08/16 16:36 Sodium 132 mEq/L (136-145) L 11/12/16 03:39 Potassium 2.8 mEq/L (3.5-4.5) L 11/12/16 03:39 Chloride 95 mEq/L (98-109) L 11/12/16 03:39 Glucose 116 mg/dL (70-99) H 11/12/16 03:39 Calculated Osmolality 273 (280-300) L 11/12/16 03:39 Serum Total Protein 5.7 g/dL (6.0-8.3) L 11/12/16 03:39 Albumin 2.6 g/dL (3.5-5.0) L 11/12/16 03:39 Albumin/Globulin Ratio 0.8 (1.1-2.2) L 11/12/16 03:39 Vancomycin Trough 5.2 mcg/mL (10-20) L 11/10/16 04:43 - Microbiology Findings Microbiology Findings: Microbiology, Last 48 Hours 11/09/16 03:50 Sputum Culture - Final Sputum Haemophilus influenzae 11/08/16 19:48 Blood Culture - Preliminary Peripheral Venipuncture No growth. 11/08/16 19:42 Blood Culture - Preliminary Peripheral Venipuncture No growth. - Diagnostic Findings CT scan - chest: report reviewed, image reviewed - Clinical Findings Intake & Output: Intake & Output 11/11/16 11/12/16 11/12/16 23:59 07:59 15:59 Intake Total 600 / 600 100 / 100 Output Total 550 / 550 250 / 250 Balance 50 / 50 -150 / -150 Consult Discharge Plan - Plan Referrals: Lilibeth Templeton CNP [Primary Care Provider] - 11/19/16 1:45 pm
--- NOTE | 2016-11-12 08:49 | Electrocardiograph Report ---
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
--- NOTE | 2016-11-12 09:26 | Internal Med Progress Note ---
<Roberto Cardoso - Last Filed: 11/12/16 14:23> Date of Encounter: 11/12/16 Time of Encounter: 14:23 - Assessment and plan (1) Healthcare-associated pneumonia Current Visit: Yes Status: Acute Assessment and plan: Continue cefepime/levofloxacin day 4. sputum culture: Haemophilus Influenzae awaiting sensitivities. Blood culture negative continue to monitor respiratory status continue prednisone (2) Hilar mass Current Visit: Yes Status: Acute Assessment and plan: s/p bronchoscopy awaiting pathology results right hilar mass preliminary cytology of the lesion in suggests malignancy. (3) Sepsis Current Visit: Yes Status: Acute Assessment and plan: Secondary to HCAP Pt had elevated WBC, tachycardia, tachypnea. sputum positive for Haemophilus influenza continue current antibiotics Qualifiers: Sepsis type: sepsis due to unspecified organism Qualified Code(s): A41.9 - Sepsis, unspecified organism (4) Smoking Current Visit: Yes Status: Chronic Assessment and plan: patient states that she has stopped smoking and is on nicotine patches. continue nicotine patches. (5) DVT prophylaxis Current Visit: Yes Status: Acute Assessment and plan: Heparin (6) Hypertension Current Visit: Yes Status: Acute Assessment and plan: Blood pressure is very well controlled and will continue same medication. Qualifiers: Hypertension type: unspecified Qualified Code(s): I10 - Essential (primary ) hypertension - Subjective Interval history: Patient states her breathing has improved since admission. she denies chest pain , abdominal pain, nausea, vomiting. Patient reports cough with productive sputum. - Constitutional Vitals: Temp Pulse Resp BP Pulse Ox 98.3 F 106 18 134/78 95 11/12/16 06:24 11/12/16 06:24 11/12/16 08:13 11/12/16 06:24 11/12/16 08:13 General appearance: Present: A&O X 3, pleasant - Respiratory Additional comments: diminished breath sounds bilaterally, diffuse crackles bilaterally - Cardiovascular Cardiovascular exam: Present: RRR - GI/Abdominal GI/Abdominal exam: Present: normal bowel sounds, soft. Absent: distended, tenderness - Extremities Exam Extremities exam: Present: warm, radial pulses palpable and symmetrical. Absent : calf tenderness, cyanotic, pedal edema Internal Medicine: Result - Labs CBC & Chem 7: 11/12/16 03:39 11/12/16 03:39 Labs: Short CBC 11/12/16 Range/Units 03:39 WBC 10.4 (4.3-11.1) K/mcL Hgb 12.3 (11.5-15.4) g/dL Hct 36.9 (35.3-44.9) % Plt Count 393 (140-400) K/mcL Neutrophils # 7.3 (1.6-8.9) K/mcL BMP 11/12/16 03:39 Sodium 132 L Potassium 2.8 L Chloride 95 L Carbon Dioxide 28 BUN 8 Creatinine 0.57 Glucose 116 H Calcium 8.9 Liver Function 11/12/16 Range/Units 03:39 Total Bilirubin 0.4 (0.2-1.2) mg/dL AST 9 (5-34) Units/L ALT 13 (0-55) Units/L Alkaline Phosphatase 70 (38-126) Units/L Albumin 2.6 L (3.5-5.0) g/dL - ABG Interpretation ABG results: ABG ABG pH 7.50 pH Units (7.32-7.45) H 11/10/16 10:22 ABG pCO2 40 mmHg (35-45) 11/10/16 10:22 ABG pO2 84 mmHg (85-104) L 11/10/16 10:22 ABG O2 Saturation 97 % (95-98) 11/10/16 10:22 Consult Discharge Plan - Plan Referrals: Lilibeth Templeton CNP [Primary Care Provider] - 11/19/16 1:45 pm <Inderjit Wade - Last Filed: 11/12/16 19:17> Date of Encounter: 11/12/16 - Assessment and plan (1) Healthcare-associated pneumonia Current Visit: Yes Status: Acute (2) Sepsis Current Visit: Yes Status: Acute Qualifiers: Sepsis type: sepsis due to unspecified organism Qualified Code(s): A41.9 - Sepsis, unspecified organism (3) Hypertension Current Visit: Yes Status: Acute Qualifiers: Hypertension type: unspecified Qualified Code(s): I10 - Essential (primary ) hypertension (4) Smoking Current Visit: Yes Status: Chronic (5) DVT prophylaxis Current Visit: Yes Status: Acute - Constitutional Vitals: Temp Pulse Resp BP Pulse Ox 97.8 F 108 20 132/73 93 11/12/16 14:32 11/12/16 14:32 11/12/16 16:01 11/12/16 14:32 11/12/16 16:01 Internal Medicine: Result - Labs CBC & Chem 7: 11/12/16 03:39 11/12/16 15:50 Labs: Short CBC 11/12/16 Range/Units 03:39 WBC 10.4 (4.3-11.1) K/mcL Hgb 12.3 (11.5-15.4) g/dL Hct 36.9 (35.3-44.9) % Plt Count 393 (140-400) K/mcL Neutrophils # 7.3 (1.6-8.9) K/mcL BMP 11/12/16 11/12/16 03:39 15:50 Sodium 132 L Potassium 2.8 L 4.3 D Chloride 95 L Carbon Dioxide 28 BUN 8 Creatinine 0.57 Glucose 116 H Calcium 8.9 Liver Function 11/12/16 Range/Units 03:39 Total Bilirubin 0.4 (0.2-1.2) mg/dL AST 9 (5-34) Units/L ALT 13 (0-55) Units/L Alkaline Phosphatase 70 (38-126) Units/L Albumin 2.6 L (3.5-5.0) g/dL - ABG Interpretation ABG results: ABG ABG pH 7.50 pH Units (7.32-7.45) H 11/10/16 10:22 ABG pCO2 40 mmHg (35-45) 11/10/16 10:22 ABG pO2 84 mmHg (85-104) L 11/10/16 10:22 ABG O2 Saturation 97 % (95-98) 11/10/16 10:22 - Attending Attestation I examined this patient and my medical decision-making was reviewed with the Resident Physician. I agree with the documented findings, disposition and treatment plan as described except to the extent set forth below. We will follow recommendations from pulmonary.
--- NOTE | 2016-11-12 10:02 | Electrocardiograph Report ---
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
--- NOTE | 2016-11-12 10:02 | Electrocardiograph Report ---
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
[2016-11-12] MEDS: traZODone 50 MG TABLET PO SCH (20:16)
[2016-11-13] MEDS: Ipratropium/Albuterol Neb 3 ML IH SCH ×7 (00:11→23:40)
[2016-11-13 05:10] LABS: Basophils # 0.1 K/mcL (0.0-0.2); Basophils % 0.6 %; Eosinophils # 0.1 K/mcL (0.0-0.6); Eosinophils % 0.7 %; Hematocrit 42.8 % (35.3-44.9); Immature Granulocytes % 2.2 % (0-4); Lymphocytes # 3.1 K/mcL (0.6-4.6); Lymphocytes % 25.9 %; Mean Corpuscular HGB Conc 33.4 g/dL (31.6-35.5); Mean Corpuscular Hemoglobin 29.6 pg (28.0-33.3); Mean Corpuscular Volume 88.6 fL (83.0-100.0); Mean Platelet Volume 9.3 fL (9.4-12.4); Monocytes # 1.1 K/mcL (0.0-1.3); Monocytes % 9.2 %; Neutrophils # 7.4 K/mcL (1.6-8.9); Platelet Count 482 K/mcL (140-400); Red Blood Count 4.83 M/mcL (3.82-4.97); Red Cell Distribution Width 12.6 % (11.5-14.5); Segmented Neutrophils % 61.4 %
[2016-11-13 05:13] LABS: Hemoglobin 14.3 g/dL (11.5-15.4)
[2016-11-13 05:24] LABS: Alanine Aminotransferase 15 Units/L (0-55); Albumin 2.9 g/dL (3.5-5.0); Albumin/Globulin Ratio 0.8 (1.1-2.2); Alkaline Phosphatase 78 Units/L (38-126); Aspartate Amino Transferase 12 Units/L (5-34); BUN/Creatinine Ratio 12 (6-26); Bilirubin,Total 0.4 mg/dL (0.2-1.2); Blood Urea Nitrogen 7 mg/dL (7-20); Calcium 9.5 mg/dL (8.6-10.8); Carbon Dioxide 26 mEq/L (19-29); Chloride 94 mEq/L (98-109); Globulin 3.5 g/dL (2.4-3.5); Glucose 79 mg/dL (70-99); Osmolality,Calculated 267 (280-300); Potassium 4.2 mEq/L (3.5-4.5); Sodium 130 mEq/L (136-145); Total Protein 6.4 g/dL (6.0-8.3); eGFR For African Americans > 60 (> 60); eGFR For Non-African Americans > 60 (> 60)
[2016-11-13] MEDS: Budesonide/Formoterol 160/4.5 MDI IH SCH ×2 (07:42→20:29)
[2016-11-13] MEDS: Tiotropium 18 MCG inhalation IH SCH (07:43)
[2016-11-13] MEDS: *HR* Heparin 5,000 UNIT/ML VIAL SQ SCH ×2 (08:31→16:34)
[2016-11-13] MEDS: Lactobacillus 1 EACH CAP.SPRINK PO SCH ×2 (08:32→20:48)
[2016-11-13] MEDS: Nicotine 21 MG PATCH.TD24 TD SCH (08:32)
[2016-11-13] MEDS: predniSONE 20 MG TABLET PO SCH (08:32)
[2016-11-13] MEDS: amLODIPine 5 MG TABLET PO SCH (08:32)
[2016-11-13] MEDS: Cefepime HCl 1,000 MG in D5% in Water (Mini-Bag+) 100 ML IVPB SCH ×2 (08:33→16:35)
[2016-11-13] MEDS: Levofloxacin 750 MG/150 ML 750 MG/150 ML BAG IVPB SCH (08:33)
--- NOTE | 2016-11-13 18:12 | Internal Med Progress Note ---
Date of Encounter: 11/13/16 Time of Encounter: 12:00 - Assessment and plan (1) Healthcare-associated pneumonia Current Visit: Yes Status: Acute Assessment and plan: -Continue cefepime/levofloxacin day 5. -Sputum culture: Haemophilus Influenzae awaiting sensitivities. -Blood culture negative (2) Acute exacerbation of chronic obstructive airways disease Current Visit: Yes Status: Resolved Assessment and plan: -Secondary to the above. -Patient has completed a 5 day course of oral prednisone and will now be discontinued. (3) Hilar mass Current Visit: Yes Status: Acute Assessment and plan: -s/p bronchoscopy awaiting pathology results right hilar mass -preliminary cytology of the lesion in suggests malignancy. (4) Sepsis Current Visit: Yes Status: Resolved Assessment and plan: Secondary to HCAP; resolved. Qualifiers: Sepsis type: sepsis due to unspecified organism Qualified Code(s): A41.9 - Sepsis, unspecified organism (5) Hypertension Current Visit: Yes Status: Acute Assessment and plan: Blood pressure is very well controlled and will continue same medication. Qualifiers: Hypertension type: unspecified Qualified Code(s): I10 - Essential (primary ) hypertension (6) Smoking Current Visit: Yes Status: Chronic Assessment and plan: patient states that she has stopped smoking and is on nicotine patches. continue nicotine patches. (7) DVT prophylaxis Current Visit: Yes Status: Acute Assessment and plan: Subcutaneous heparin. - Subjective Interval history: Patient with no issues or complaints morning and no acute events overnight. - Constitutional Vitals: Temp Pulse Resp BP Pulse Ox 97.9 F 110 18 120/74 92 11/13/16 14:27 11/13/16 14:27 11/13/16 15:40 11/13/16 14:27 11/13/16 15:40 General appearance: Present: A&O X 3, pleasant - Respiratory Respiratory exam: Present: CTAB. Absent: accessory muscle use, rales, rhonchi, wheezes - Cardiovascular Cardiovascular exam: Present: RRR, +S1, +S2. Absent: diastolic murmur, gallop, rubs, systolic murmur Internal Medicine: Result - Labs CBC & Chem 7: 11/13/16 04:33 11/13/16 04:33 Labs: Short CBC 11/13/16 Range/Units 04:33 WBC 12.0 H (4.3-11.1) K/mcL Hgb 14.3 D (11.5-15.4) g/dL Hct 42.8 (35.3-44.9) % Plt Count 482 H (140-400) K/mcL Neutrophils # 7.4 (1.6-8.9) K/mcL BMP 11/13/16 04:33 Sodium 130 L Potassium 4.2 Chloride 94 L Carbon Dioxide 26 BUN 7 Creatinine 0.59 Glucose 79 Calcium 9.5 Liver Function 11/13/16 Range/Units 04:33 Total Bilirubin 0.4 (0.2-1.2) mg/dL AST 12 (5-34) Units/L ALT 15 (0-55) Units/L Alkaline Phosphatase 78 (38-126) Units/L Albumin 2.9 L (3.5-5.0) g/dL - ABG Interpretation ABG results: ABG ABG pH 7.50 pH Units (7.32-7.45) H 11/10/16 10:22 ABG pCO2 40 mmHg (35-45) 11/10/16 10:22 ABG pO2 84 mmHg (85-104) L 11/10/16 10:22 ABG O2 Saturation 97 % (95-98) 11/10/16 10:22 Consult Discharge Plan - Plan Referrals: Lilibeth Templeton CNP [Primary Care Provider] - 11/19/16 1:45 pm
[2016-11-13] MEDS: traZODone 50 MG TABLET PO SCH (20:47)
[2016-11-14] MEDS: *HR* Heparin 5,000 UNIT/ML VIAL SQ SCH ×3 (01:51→16:34)
[2016-11-14] MEDS: Cefepime HCl 1,000 MG in D5% in Water (Mini-Bag+) 100 ML IVPB SCH ×2 (01:51→08:51)
[2016-11-14] MEDS: Ipratropium/Albuterol Neb 3 ML IH SCH ×6 (04:12→23:29)
[2016-11-14] MEDS: Budesonide/Formoterol 160/4.5 MDI IH SCH ×2 (07:42→20:15)
[2016-11-14] MEDS: Tiotropium 18 MCG inhalation IH SCH (07:43)
[2016-11-14] MEDS: Nicotine 21 MG PATCH.TD24 TD SCH (08:52)
[2016-11-14] MEDS: Lactobacillus 1 EACH CAP.SPRINK PO SCH ×2 (08:52→20:29)
[2016-11-14] MEDS: amLODIPine 5 MG TABLET PO SCH (08:52)
[2016-11-14] MEDS: Levofloxacin 750 MG/150 ML 750 MG/150 ML BAG IVPB SCH (08:54)
[2016-11-14] MEDS: 0.9 % Sodium Chloride 1,000 ML IVC SCH (09:24)
[2016-11-14 09:32] LABS: Hematocrit 39.1 % (35.3-44.9); Hemoglobin 13.3 g/dL (11.5-15.4); Mean Corpuscular Hemoglobin 30.2 pg (28.0-33.3); Mean Corpuscular Volume 88.7 fL (83.0-100.0); Platelet Count 443 K/mcL (140-400); Red Blood Count 4.41 M/mcL (3.82-4.97); Red Cell Distribution Width 12.8 % (11.5-14.5)
[2016-11-14 09:44] LABS: BUN/Creatinine Ratio 15 (6-26); Blood Urea Nitrogen 9 mg/dL (7-20); Calcium 9.1 mg/dL (8.6-10.8); Carbon Dioxide 29 mEq/L (19-29); Chloride 93 mEq/L (98-109); Glucose 124 mg/dL (70-99); Osmolality,Calculated 266 (280-300); Potassium 3.6 mEq/L (3.5-4.5); Sodium 128 mEq/L (136-145); eGFR For African Americans > 60 (> 60); eGFR For Non-African Americans > 60 (> 60)
[2016-11-14 09:59] LABS: Lymphocytes # 2.5 K/mcL (0.6-4.6); Neutrophils # 12.4 K/mcL (1.6-8.9)
--- NOTE | 2016-11-14 17:34 | Internal Med Progress Note ---
Date of Encounter: 11/14/16 Time of Encounter: 10:00 - Assessment and plan (1) Healthcare-associated pneumonia Current Visit: Yes Status: Acute Assessment and plan: -Sputum culture: Haemophilus Influenzae. -Blood culture negative. -Cefepime/levofloxacin discontinued on day 5. -Patient has been started on Augmentin. (2) Acute exacerbation of chronic obstructive airways disease Current Visit: Yes Status: Resolved Assessment and plan: -Secondary to the above. (3) Hilar mass Current Visit: Yes Status: Acute Assessment and plan: -Patient found to have small cell carcinoma s/p pathology results of bronchoscopy of right hilar mass -Will consult hematology/oncology. (4) Sepsis Current Visit: Yes Status: Resolved Assessment and plan: Secondary to HCAP; resolved. Qualifiers: Sepsis type: Haemophilus influenzae Qualified Code(s): A41.3 - Sepsis due to Hemophilus influenzae (5) Hypertension Current Visit: Yes Status: Acute Assessment and plan: Blood pressure is very well controlled and will continue same medication. Qualifiers: Hypertension type: unspecified Qualified Code(s): I10 - Essential (primary ) hypertension (6) Smoking Current Visit: Yes Status: Chronic Assessment and plan: patient states that she has stopped smoking and is on nicotine patches. continue nicotine patches. (7) DVT prophylaxis Current Visit: Yes Status: Acute Assessment and plan: Subcutaneous heparin. - Subjective Interval history: Patient with no issues or complaints morning and no acute events overnight. - Constitutional Vitals: Temp Pulse Resp BP Pulse Ox 97.8 F 102 18 124/78 93 11/14/16 15:16 11/14/16 15:16 11/14/16 15:35 11/14/16 15:16 11/14/16 15:35 General appearance: Present: A&O X 3, pleasant - Respiratory Respiratory exam: Present: CTAB. Absent: accessory muscle use, rales, rhonchi, wheezes - Cardiovascular Cardiovascular exam: Present: RRR, +S1, +S2. Absent: diastolic murmur, gallop, rubs, systolic murmur Internal Medicine: Result - Labs CBC & Chem 7: 11/14/16 09:22 11/14/16 09:22 Labs: Short CBC 11/14/16 Range/Units 09:22 WBC 15.9 H (4.3-11.1) K/mcL Hgb 13.3 (11.5-15.4) g/dL Hct 39.1 (35.3-44.9) % Plt Count 443 H (140-400) K/mcL Neutrophils # 12.4 H (1.6-8.9) K/mcL BMP 11/14/16 09:22 Sodium 128 L Potassium 3.6 Chloride 93 L Carbon Dioxide 29 BUN 9 Creatinine 0.62 Glucose 124 H Calcium 9.1 - ABG Interpretation ABG results: ABG ABG pH 7.50 pH Units (7.32-7.45) H 11/10/16 10:22 ABG pCO2 40 mmHg (35-45) 11/10/16 10:22 ABG pO2 84 mmHg (85-104) L 11/10/16 10:22 ABG O2 Saturation 97 % (95-98) 11/10/16 10:22 - Impressions Impressions Chest X-Ray 11/14/16 11:29 IMPRESSION: 1. Slight increase in the right basilar lung infiltrate, with an associated right pleural effusion. This is likely related to atelectasis versus pneumonia. 2. There is a right hilar mass, concerning for malignancy until proven otherwise. D/ / 11/14/2016 12:17:12 Blu Avendano MD / Julieta Akins Interpreting Provider: Blu Avendano MD Consult Discharge Plan - Plan Referrals: Lilibeth Templeton CNP [Primary Care Provider] - 11/19/16 1:45 pm
[2016-11-14] MEDS: traZODone 50 MG TABLET PO SCH (20:29)
[2016-11-15] MEDS: *HR* Heparin 5,000 UNIT/ML VIAL SQ SCH ×3 (00:44→18:06)
[2016-11-15] MEDS: Ipratropium/Albuterol Neb 3 ML IH SCH ×6 (03:30→23:17)
[2016-11-15] MEDS: Budesonide/Formoterol 160/4.5 MDI IH SCH ×2 (07:31→19:28)
[2016-11-15] MEDS: Tiotropium 18 MCG inhalation IH SCH (07:33)
[2016-11-15] MEDS: Nicotine 21 MG PATCH.TD24 TD SCH (08:13)
[2016-11-15] MEDS: Lactobacillus 1 EACH CAP.SPRINK PO SCH ×2 (08:13→20:13)
[2016-11-15] MEDS: amLODIPine 5 MG TABLET PO SCH (08:13)
[2016-11-15 09:44] LABS: Hematocrit 39.2 % (35.3-44.9); Hemoglobin 13.2 g/dL (11.5-15.4); Mean Corpuscular HGB Conc 33.7 g/dL (31.6-35.5); Mean Corpuscular Hemoglobin 30.1 pg (28.0-33.3); Mean Corpuscular Volume 89.3 fL (83.0-100.0); Mean Platelet Volume 9.2 fL (9.4-12.4); Platelet Count 420 K/mcL (140-400); Red Blood Count 4.39 M/mcL (3.82-4.97)
[2016-11-15 09:57] LABS: BUN/Creatinine Ratio 14 (6-26); Blood Urea Nitrogen 9 mg/dL (7-20); Calcium 9.1 mg/dL (8.6-10.8); Carbon Dioxide 28 mEq/L (19-29); Chloride 92 mEq/L (98-109); Glucose 132 mg/dL (70-99); Osmolality,Calculated 269 (280-300); Sodium 129 mEq/L (136-145); eGFR For African Americans > 60 (> 60); eGFR For Non-African Americans > 60 (> 60)
[2016-11-15 10:27] LABS: Monocytes # 0.9 K/mcL (0.0-1.3); Neutrophils # 8.2 K/mcL (1.6-8.9)
[2016-11-15 10:30] LABS: Platelet Estimate Normal (Normal); Reactive Lymphocytes Present (Not Present)
--- NOTE | 2016-11-15 15:31 | Oncology Inp Consult Note ---
Date of Encounter: 11/15/16 Time of Encounter: 15:31 Assessment and Plan (1) Small cell 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 Status: Acute Assessment and plan: I personally reviewed Ms. Keenan's CT scans from 10/14/16, 11/10/16 as well as pathology report (bronchoscopy with FNA ) that is consistent with small cell lung cancer. I explained her and her family ( present at bedside) that the findings were consistent with extensive disease- SCLC based on the presence of multiple liver lesions consistent with metastatic disease. I explained her that her disease was not curable but treatable. Emotional support was provided. I explained her that the primary management of SCLC consist of combination chemotherapy ([place] based chemotherapy: carboplatinum-etoposide), and we briefly discussed options for second line such as immunotherapy ( ipi +- Nivolumab). I explained her that this is a very aggressive cancer, but usually responsive the chemotherapy, although unfortunately always recurs. I inquired whether or not she would be interested to hear more detail prognostic information, but she said that she was not sure and would like to think about it. She was instructed to let me know if at some point she is interested in discussing prognosis in more detailed. Family were present at the room during the discussion. She was pleasant, and looked calmed, although she anticipate that her mind would be racing over the night and wonder if she could get something to help her sleep tonight ( she reports that trazadone has been working well so far). - She expressed interest in pursuing treatment with chemotherapy. As per her request, I contacted Dr. Bird, from whom she has hear excellent recommendations. I discussed her case with Dr. Bird, and tentatively we plan to start chemotherapy tomorrow in the afternoon. - Labs reviewed. Renal function within normal parameters. Recommendations: - Planning to start palliative chemotherapy tomorrow afternoon. - Please start gentle IVF with NS 75-100 cc/h - Check serum uric acid - Start prophylactically Allopurinol 300 mg BID - Complete staging work up with brain MRI and CT abdomen/pelvis ( consider ativan PRN prior to brain MRI in view of reported history of severe anxiety during MRI done years ago) - May consider to increase trazodone to 250 mg QHS for management of anxiety/ insomnia - Will follow (2) Acute and chronic respiratory failure Status: Acute Assessment and plan: - Probably due to a combination of post obstructive PNA and small cell lung cancer. - Respiratory status still not back to baseline, still requiring continues supplemental oxygen. - Continue management of post obstructive PNA with antibiotics, as per primary team. Qualifiers: Respiratory failure complication: hypoxia Qualified Code(s): J96.21 - Acute and chronic respiratory failure with hypoxia - Data of Consult Requesting Physician: Ethan Batista Primary Care Provider: Lilibeth Templeton CNP - Consult Narrative Reason for consult: newly diagnosed SCLC History of present illness: Ms. Keenan is a 61 year old female with history of COPD on home oxygen, former smoker admitted due to respiratory complaints, and diagnosed with post- obstructive pna following outpatient bronchoscopy on 11/07/16. History was taken from the patient herself and her who were at bedside. Patient reports that she has been in the hospital 4 times during the last 2 months due to recurrent pneumonia. She reports a long history of COPD for what she used to require oxygen supplementation only at nights, but for the last couple of months has noticed worsening shortness of breath, requiring continues use of oxygen ( 2 LPM), worse with activity, with acute exacerbations in the course of the last 2 months that required hospital care for PNA. She reports improvement of her respiratory complaints at home with the use of nebs. On 05/22/16 she underwent a CXR due to shortness of breath that showed a new small right mid lung infiltrate thought to be due to PNA. A follow up XR showed interval decrease, but persistent abnormal findings. Subsequent a CT completed the same day ( 10/14/16) revealed a large right hilar mass measuring approximately 5.3 x 3.6 cm concerning for malignancy, along with a linear mass extending away from the right hilar region in the right middle lobe measuring 3.2 x 1.1 cm. There was not reported upper abdominal abnormalities. She was seen at the pulmonology department on 11/07 for a bronchoscopy, then stayed briefly under observation due to worsening respiratory distress. She had to return back to the ED after a short stay at home in view of worsening respirarory distress, and low grade fever. 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 CT findings were thought to be due to malignant post obstructive pneumonia. At that time, her CT ( 11/10) showed too liver lesions in both lobes consistent with metastatic disease. Her pathology from 11/07 from the right hilar mass (FNA) was reported as small cell lung cancer. She reports improvement of her constitutional symptoms, but still not back to her baseline. She is currently in [place] 3 LPM ( but used to use oxygen only at nights 2 months ago). Today she ambulate a few feet in her room. She denies chest pain, nausea, vomiting, diarrhea, constipation, recurrent fever , headaches, double vision, episodes of blindness, focal weakness, urinary complaints, or new bone/joint pain. Past Med Surg Social Fam HX - Past Medical History Medical history: COPD, hypertension Psychiatric history: anxiety, depression - Past Surgical History Surgical History: hysterectomy - Social History Smoking Status: Former smoker Smokeless Tobacco Status: No Alcohol use: none Drug use: opiates, other - Family History Sister Living Status: Still Living Hx Family Cardiac Disorders: Yes (HTN) Hx Family Cancer: Yes (cervical) Mother Living Status: Cause of : AAA Father Living Status: Cause of : [place] Hx Family Cardiac Disorders: Yes Medications and Allergies DULoxetine [Cymbalta] 30 mg PO HS 02/15/16 [History] Trazodone HCl 200 mg PO HS 02/15/16 [History] Melatonin/Pyridoxine HCl (B6) [Melatonin 3 mg Tablet] 3 mg PO HS 05/02/16 [ History] Albuterol Neb [Proventil Neb] 2.5 mg IH Q6H PRN 10/14/16 [History] Albuterol Sulfate [Albuterol Inhaler] 2 puff IH Q6H PRN 10/14/16 [History] Budesonide/Formoterol 160/4.5 [Symbicort 160/4.5] 2 puff IH BIDR 10/14/16 [ History] Oxygen 2 l .ROUTE AD 10/14/16 [History] Tiotropium [Spiriva] 18 mcg IH DAILY 10/14/16 [History] Nicotine Patch [Nicoderm] 21 mg TD DAILY #30 patch.td24 10/17/16 [Rx] amLODIPine [Norvasc] 5 mg PO DAILY #30 tab 10/17/16 [Rx] predniSONE [PredniSONE] 40 mg PO DAILY 5 Days #10 tablet 11/07/16 [Rx] 3 Allergy/AdvReac Type Severity Reaction Status Date / Time No Known Allergies Allergy Verified 10/14/16 13:33 Constitutional: Present: fatigue, malaise, weight loss. Absent: chills, headache(s), lethargy, weakness Eyes: Absent: blind spots, change in vision, diplopia, discharge Cardiovascular: Present: dyspnea, dyspnea on exertion. Absent: chest pain with activity, diaphoresis Respiratory: Present: dyspnea, dyspnea on exertion. Absent: hemoptysis, pain on inspiration Gastrointestinal: Absent: abdominal pain, constipation, hematemesis, hematochezia Genitourinary: Absent: breast pain Musculoskeletal: Absent: arthralgias, back pain, numbness Integumentary: Absent: photosensitivity, pruritus Neurological: Absent: abnormal hearing, behavioral changes, disequilibrium, focal weakness Psychiatric: Present: anxiety. Absent: behavioral changes, confusion Endocrine: Present: fatigue Hematologic/Lymphatic: Present: as per HPI Oncology - Exam - Constitutional Vitals: Temp Pulse Resp BP Pulse Ox 98.0 F 106 18 123/78 91 11/15/16 15:07 11/15/16 15:07 11/15/16 15:07 11/15/16 15:07 11/15/16 15:07 - Head Head exam: Present: normal inspection, normocephalic - Eye Eye exam: Present: EOMI, PERRL - ENT ENT exam: Present: normal exam, normal oropharynx - Neck Neck exam: Present: normal inspection. Absent: lymphadenopathy, tenderness, thyromegaly - Respiratory Respiratory exam: Present: prolonged expiratory phase, rales (bibasilar rales) - Cardiovascular Cardiovascular exam: Present: RRR. Absent: systolic murmur - GI/Abdominal GI/Abdominal exam: Present: soft. Absent: normal bowel sounds, organomegaly, rebound, rigid - Extremities Exam Extremities exam: Present: normal inspection. Absent: pedal edema, tenderness - Back Exam Back exam: Present: normal inspection. Absent: paraspinal tenderness - Neurological Exam Neurological exam: Present: alert, CN II-XII intact, oriented X3 - Psychiatric Psychiatric exam: Present: normal affect, normal mood. Absent: flat affect - Skin Skin exam: Present: normal color. Absent: cyanosis, diaphoretic Oncology - Results Labs: Short CBC 11/15/16 Range/Units 08:52 WBC 14.2 H (4.3-11.1) K/mcL Hgb 13.2 (11.5-15.4) g/dL Hct 39.2 (35.3-44.9) % Plt Count 420 H (140-400) K/mcL Neutrophils # 8.2 (1.6-8.9) K/mcL BMP 11/15/16 08:52 Sodium 129 L Potassium 4.0 Chloride 92 L Carbon Dioxide 28 BUN 9 Creatinine 0.65 Glucose 132 H Calcium 9.1 Consult Discharge Plan - Plan Referrals: Lilibeth Templeton, [employer] [Primary Care Provider] - 11/19/16 1:45 pm
--- NOTE | 2016-11-15 18:32 | Internal Med Progress Note ---
Date of Encounter: 11/15/16 Time of Encounter: 10:00 - Assessment and plan (1) Healthcare-associated pneumonia Current Visit: Yes Status: Acute Assessment and plan: -Sputum culture: Haemophilus Influenzae. -Blood culture negative. -Cefepime/levofloxacin discontinued on day 5. -Patient has been started on Augmentin. (2) Acute exacerbation of chronic obstructive airways disease Current Visit: Yes Status: Resolved Assessment and plan: -Secondary to the above. (3) Hilar mass Current Visit: Yes Status: Acute Assessment and plan: -Findings were consistent with extensive disease- SCLC based on the presence of multiple liver lesions consistent with metastatic disease -She expressed interest in pursuing treatment with chemotherapy; start chemotherapy tomorrow in the afternoon. Recommendations: - Planning to start palliative chemotherapy tomorrow afternoon. - Please start gentle IVF with NS 75-100 cc/h - Check serum uric acid - Start prophylactically Allopurinol 300 mg BID - Complete staging work up with brain MRI and CT abdomen/pelvis (4) Sepsis Current Visit: Yes Status: Resolved Assessment and plan: Secondary to HCAP; resolved. Qualifiers: Sepsis type: Haemophilus influenzae Qualified Code(s): A41.3 - Sepsis due to Hemophilus influenzae (5) Hypertension Current Visit: Yes Status: Acute Assessment and plan: Blood pressure is very well controlled and will continue same medication. Qualifiers: Hypertension type: unspecified Qualified Code(s): I10 - Essential (primary ) hypertension (6) Smoking Current Visit: Yes Status: Chronic Assessment and plan: patient states that she has stopped smoking and is on nicotine patches. continue nicotine patches. (7) DVT prophylaxis Current Visit: Yes Status: Acute Assessment and plan: Subcutaneous heparin. - Subjective Interval history: Patient with no issues or complaints morning and no acute events overnight. - Constitutional Vitals: Temp Pulse Resp BP Pulse Ox 98.0 F 106 16 123/78 92 11/15/16 15:07 11/15/16 15:07 11/15/16 15:13 11/15/16 15:07 11/15/16 15:13 General appearance: Present: A&O X 3, pleasant - Respiratory Respiratory exam: Present: CTAB. Absent: accessory muscle use, rales, rhonchi, wheezes - Cardiovascular Cardiovascular exam: Present: RRR, +S1, +S2. Absent: diastolic murmur, gallop, rubs, systolic murmur Internal Medicine: Result - Labs CBC & Chem 7: 11/15/16 08:52 11/15/16 08:52 Labs: Short CBC 11/15/16 Range/Units 08:52 WBC 14.2 H (4.3-11.1) K/mcL Hgb 13.2 (11.5-15.4) g/dL Hct 39.2 (35.3-44.9) % Plt Count 420 H (140-400) K/mcL Neutrophils # 8.2 (1.6-8.9) K/mcL BMP 11/15/16 08:52 Sodium 129 L Potassium 4.0 Chloride 92 L Carbon Dioxide 28 BUN 9 Creatinine 0.65 Glucose 132 H Calcium 9.1 - ABG Interpretation ABG results: ABG ABG pH 7.50 pH Units (7.32-7.45) H 11/10/16 10:22 ABG pCO2 40 mmHg (35-45) 11/10/16 10:22 ABG pO2 84 mmHg (85-104) L 11/10/16 10:22 ABG O2 Saturation 97 % (95-98) 11/10/16 10:22 - VTE Documentation of Mechanical Device: Graduated compression elastic hosiery Consult Discharge Plan - Plan Referrals: Lilibeth Templeton, OMA [Primary Care Provider] - 11/19/16 1:45 pm
[2016-11-15] MEDS: 0.9 % Sodium Chloride 1,000 ML IVC SCH (19:27)
[2016-11-15] MEDS: traZODone 50 MG TABLET PO SCH (20:13)
[2016-11-16] MEDS ORDERED: Famotidine 20 MG/2 ML VIAL IV PRN
[2016-11-16] MEDS ORDERED: Dexamethasone 10 MG/ML VIAL IV ONE
[2016-11-16] MEDS ORDERED: *HR* LORazepam 2 MG/ML VIAL IV PRN
[2016-11-16] MEDS ORDERED: Dexamethasone 10 MG/ML VIAL IV PRN
[2016-11-16] MEDS ORDERED: SODIUM CHLORIDE 0.9% IV SCH ×3
[2016-11-16] MEDS ORDERED: ETOPOSIDE IV SCH ×2
[2016-11-16] MEDS ORDERED: Prochlorperazine 10 MG/2 ML VIAL IV PRN
[2016-11-16] MEDS ORDERED: CARBOPLATIN IV SCH
[2016-11-16] MEDS: *HR* Heparin 5,000 UNIT/ML VIAL SQ SCH ×4 (00:47→23:07)
[2016-11-16] MEDS: Ipratropium/Albuterol Neb 3 ML IH SCH ×5 (04:02→20:28)
[2016-11-16] MEDS: Budesonide/Formoterol 160/4.5 MDI IH SCH ×2 (07:46→20:28)
[2016-11-16] MEDS: Lactobacillus 1 EACH CAP.SPRINK PO SCH ×2 (08:07→19:41)
[2016-11-16] MEDS: amLODIPine 5 MG TABLET PO SCH (08:07)
[2016-11-16] MEDS: Nicotine 21 MG PATCH.TD24 TD SCH (08:08)
[2016-11-16 09:34] LABS: Hematocrit 36.4 % (35.3-44.9); Hemoglobin 12.4 g/dL (11.5-15.4); Mean Corpuscular HGB Conc 34.1 g/dL (31.6-35.5); Mean Corpuscular Hemoglobin 29.7 pg (28.0-33.3); Mean Corpuscular Volume 87.1 fL (83.0-100.0); Mean Platelet Volume 8.7 fL (9.4-12.4); Platelet Count 370 K/mcL (140-400); Red Blood Count 4.18 M/mcL (3.82-4.97); Red Cell Distribution Width 12.7 % (11.5-14.5)
[2016-11-16 10:33] LABS: BUN/Creatinine Ratio 12 (6-26); Blood Urea Nitrogen 7 mg/dL (7-20); Calcium 8.8 mg/dL (8.6-10.8); Carbon Dioxide 25 mEq/L (19-29); Chloride 89 mEq/L (98-109); Glucose 103 mg/dL (70-99); Osmolality,Calculated 252 (280-300); Potassium 4.6 mEq/L (3.5-4.5); eGFR For African Americans > 60 (> 60); eGFR For Non-African Americans > 60 (> 60)
[2016-11-16 11:16] LABS: Sodium 122 mEq/L (136-145)
[2016-11-16 11:26] LABS: Lymphocytes # 2.2 K/mcL (0.6-4.6); Monocytes # 2.5 K/mcL (0.0-1.3); Platelet Clumps Few (Not Present); Platelet Estimate Normal (Normal); Reactive Lymphocytes Present (Not Present)
[2016-11-16] MEDS ORDERED: Ondansetron 4 MG/2 ML VIAL IVP PRN (11:49)
[2016-11-16] MEDS: Acetaminophen 325 MG TABLET PO PRN (12:03)
[2016-11-16] MEDS ORDERED: Lidocaine -MPF 1% 5 ML AMPUL INFILT ONE ×2 (13:10→13:18)
--- NOTE | 2016-11-16 14:18 | Oncology Inp Progress Note ---
Date of Encounter: 11/16/16 Time of Encounter: 14:10 (1) Small cell 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 Current Visit: Yes Status: Acute Assessment and plan: - There were not significant overnight events. Remains requiring supplemental oxygen. Hopefully her respiratory failure will improve with palliative chemotherapy that will be started today . Labs reviewed. Ok to proced with C1D1 of carbo and etoposide, next doses on Saturday and Sunday 11/19 and 11/20 respectively. - Continue IVF. - Monitor electrolytes and CBC daily. - Uric acid 1.9 mg/dl. Prophylactic allopurinol. - Start dexamethasone 8 mg daily for nausea prophylaxis, as well as Zofran PRN. (2) Acute and chronic respiratory failure Current Visit: No Status: Acute Assessment and plan: - Still requiring supplemental oxygen, not at her baseline. Probably due to a combination of obstructive PNA and underlying lung cancer. - I expect to see some improvement with the administration of chemotherapy. - Continue management of post obstructive PNA as per primary team. Qualifiers: Respiratory failure complication: hypoxia Qualified Code(s): J96.21 - Acute and chronic respiratory failure with hypoxia Oncology: Subj Interval history: Patient seen with at bedside. Denies significant overnight events or acute complaints. Still in supplemental oxygen. Planning for day 1 cycle 1 of chemotherapy today. Denies nausea, diarrhea, fever, chills. - Constitutional Vitals: Vital Signs Temp Pulse Resp BP Pulse Ox 11/16/16 11:41 20 95 11/16/16 10:35 98.2 F 108 18 113/73 95 11/16/16 07:45 18 96 11/16/16 07:09 98.4 F 104 18 125/75 96 11/16/16 04:04 98.3 F 109 18 127/81 94 11/16/16 04:02 19 96 11/15/16 23:43 98.6 F 110 16 110/66 94 11/15/16 23:17 18 94 11/15/16 19:30 18 95 11/15/16 19:12 98.0 F 101 18 121/76 95 11/15/16 15:13 16 92 11/15/16 15:07 98.0 F 106 18 123/78 91 Intake and Output 11/15/16 11/16/16 11/16/16 23:59 07:59 15:59 Intake Total 0 / 0 600 / 600 240 / 240 Output Total 1000 / 1000 Balance 0 / 0 600 / 600 -760 / -760 Intake: Oral 0 / 0 600 / 600 240 / 240 Output: Urine 1000 / 1000 Other: Meal Dinner Breakfast Percent of Meal Consumed 100% 75% Stool Size Small Moderate Stool Consistency formed formed Stool Color Brown Brown # Voids 2 Weight 50.439 kg Patient Weight 11/16/16 23:59 Weight 50.439 kg - Head Head exam: Present: normal inspection - Respiratory Respiratory exam: Present: prolonged expiratory phase. Absent: wheezes - Cardiovascular Cardiovascular exam: Present: +S1 - GI/Abdominal GI/Abdominal exam: Present: normal bowel sounds Oncology: Obj Data - Labs CBC & Chem 7: 11/16/16 09:19 11/16/16 09:19 Labs: Laboratory Results - last 24 hr 11/15/16 11/16/16 11/16/16 18:57 09:19 09:19 WBC 15.7 H RBC 4.18 Hgb 12.4 Hct 36.4 MCV 87.1 MCH 29.7 MCHC 34.1 RDW 12.7 Plt Count 370 MPV 8.7 L Seg Neutrophils % 66.0 Band Neutrophils % 4.0 Lymphocytes % 14.0 Monocytes % 16.0 Neutrophils # 11.0 H Lymphocytes # 2.2 Monocytes # 2.5 H Reactive Lymphocytes Present A Platelet Estimate Normal Clumped Platelets Few A Sodium 122 L D Potassium 4.6 H Chloride 89 L Carbon Dioxide 25 BUN 7 Creatinine 0.59 Est GFR ( Amer) > 60 Est GFR (Non-Af Amer) > 60 BUN/Creatinine Ratio 12 Glucose 103 H Calculated Osmolality 252 L Uric Acid 1.9 L Calcium 8.8 - Impressions Impressions Brain MRI 11/15/16 18:36 IMPRESSION: No intracranial metastases identified. Mild chronic white matter microvascular ischemic disease. D/ / Arnie Marrero MD / Arnie Marrero MD Interpreting Provider: Arnie Marrero MD Abdomen/Pelvis CT 11/15/16 23:45 IMPRESSION: 1. Motion artifact limits evaluation of the upper abdomen. 2. Innumerable low-density hepatic lesions are identified, largest measuring 3.4 cm in segment 4B, most compatible with metastatic disease. 3. Joanna hepatis and gastrohepatic lymphadenopathy, largest measuring 2.9 cm. 4. Nonspecific 13 mm left internal iliac lymph node. 5. Low-density filling defects are in noted in the gastric lumen and distal small bowel, possibly representing polypoid lesions. 6. Large stool burden noted throughout the colon. 7. Partial visualization of right hilar/mediastinal mass and right middle lobe/right lower lobe airspace opacities. D/ / 11/16/2016 07:19:16 Migel Armstrong MD / ang Interpreting Provider: Migel Armstrong MD - ABG Interpretation ABG results: ABG ABG pH 7.50 pH Units (7.32-7.45) H 11/10/16 10:22 ABG pCO2 40 mmHg (35-45) 11/10/16 10:22 ABG pO2 84 mmHg (85-104) L 11/10/16 10:22 ABG O2 Saturation 97 % (95-98) 11/10/16 10:22 Consult Discharge Plan - Plan Referrals: Lilibeth Templeton CNP [Primary Care Provider] - 11/19/16 1:45 pm
--- NOTE | 2016-11-16 15:36 | Event Note ---
Date of Encounter: 11/16/16 Time of Encounter: 08:00 Patient with small cell lung cancer with distant metastatic disease, recurrent infections and symptomatic with SOB in between episodes-planned to start C1 in- patient. She apperas clinically stable this AM on oxygen. Mild tachycardia with min exertion. bx diagnostics reviewed and Rx plan reviewed with patient and family in detail. She will begin C1 today in the hospital with carboplatin/ etoposide. Antiemetics for wkend written and day 2,3 early next wk. Monitor labs /tumor lysis through wkend. Discussed with hospital/oncologist Dr Mahajan
[2016-11-16] MEDS: 0.9 % Sodium Chloride 500 ML IVC SCH ×2 (15:48→22:52)
[2016-11-16] MEDS: 0.9 % Sodium Chloride 1,000 ML IVC SCH (16:37)
--- NOTE | 2016-11-16 17:31 | Internal Med Progress Note ---
Date of Encounter: 11/16/16 Time of Encounter: 10:00 - Assessment and plan (1) Small cell 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 Current Visit: Yes Status: Acute Assessment and plan: -Heme-Onc recommendations to start C1D1 of carbo and etoposide today; next doses on Saturday and Sunday 11/19 and 11/20 respectively. - Continue IVF, prophylactic allopurinol and to start dexamethasone 8 mg daily for nausea prophylaxis, as well as Zofran PRN. (2) Healthcare-associated pneumonia Current Visit: Yes Status: Acute Assessment and plan: -Sputum culture: Haemophilus Influenzae. -Blood culture negative. -Cefepime/levofloxacin discontinued on day 5. -Patient has also completed a 4 day course of Augmentin. (3) Acute exacerbation of chronic obstructive airways disease Current Visit: Yes Status: Resolved Assessment and plan: -Secondary to the above. -On baseline oxygen supplementation requirements. (4) Sepsis Current Visit: Yes Status: Resolved Qualifiers: Sepsis type: Haemophilus influenzae Qualified Code(s): A41.3 - Sepsis due to Hemophilus influenzae (5) Hypertension Current Visit: Yes Status: Acute Assessment and plan: Blood pressure is very well controlled and will continue same medication. Qualifiers: Hypertension type: unspecified Qualified Code(s): I10 - Essential (primary ) hypertension (6) Smoking Current Visit: Yes Status: Chronic Assessment and plan: patient states that she has stopped smoking and is on nicotine patches. continue nicotine patches. (7) DVT prophylaxis Current Visit: Yes Status: Acute Assessment and plan: Subcutaneous heparin. - Subjective Interval history: Patient with no issues or complaints morning and no acute events overnight. - Constitutional Vitals: Temp Pulse Resp BP Pulse Ox 98.2 F 103 20 146/78 96 11/16/16 14:48 11/16/16 14:48 11/16/16 16:09 11/16/16 14:48 11/16/16 16:09 General appearance: Present: A&O X 3, pleasant - Respiratory Respiratory exam: Present: CTAB. Absent: accessory muscle use, rales, rhonchi, wheezes - Cardiovascular Cardiovascular exam: Present: RRR, +S1, +S2. Absent: diastolic murmur, gallop, rubs, systolic murmur Internal Medicine: Result - Labs CBC & Chem 7: 11/16/16 09:19 11/16/16 09:19 Labs: Short CBC 11/16/16 Range/Units 09:19 WBC 15.7 H (4.3-11.1) K/mcL Hgb 12.4 (11.5-15.4) g/dL Hct 36.4 (35.3-44.9) % Plt Count 370 (140-400) K/mcL Neutrophils # 11.0 H (1.6-8.9) K/mcL BMP 11/16/16 09:19 Sodium 122 L D Potassium 4.6 H Chloride 89 L Carbon Dioxide 25 BUN 7 Creatinine 0.59 Glucose 103 H Calcium 8.8 - ABG Interpretation ABG results: ABG ABG pH 7.50 pH Units (7.32-7.45) H 11/10/16 10:22 ABG pCO2 40 mmHg (35-45) 11/10/16 10:22 ABG pO2 84 mmHg (85-104) L 11/10/16 10:22 ABG O2 Saturation 97 % (95-98) 11/10/16 10:22 - Impressions Impressions Brain MRI 11/15/16 18:36 IMPRESSION: No intracranial metastases identified. Mild chronic white matter microvascular ischemic disease. D/ / Arnie Marrero MD / Arnie Marrero MD Interpreting Provider: Arnie Marrero MD Abdomen/Pelvis CT 11/15/16 23:45 IMPRESSION: 1. Motion artifact limits evaluation of the upper abdomen. 2. Innumerable low-density hepatic lesions are identified, largest measuring 3.4 cm in segment 4B, most compatible with metastatic disease. 3. Joanna hepatis and gastrohepatic lymphadenopathy, largest measuring 2.9 cm. 4. Nonspecific 13 mm left internal iliac lymph node. 5. Low-density filling defects are in noted in the gastric lumen and distal small bowel, possibly representing polypoid lesions. 6. Large stool burden noted throughout the colon. 7. Partial visualization of right hilar/mediastinal mass and right middle lobe/right lower lobe airspace opacities. D/ / 11/16/2016 07:19:16 Migle Armstrong MD / ang Interpreting Provider: Migel Armstrong MD - VTE Documentation of Mechanical Device: Graduated compression elastic hosiery Consult Discharge Plan - Plan Referrals: Lilibeth Templeton, OMA [Primary Care Provider] - 11/19/16 1:45 pm
[2016-11-16] MEDS: traZODone 50 MG TABLET PO SCH (19:41)
[2016-11-16] MEDS ORDERED: Furosemide 40 MG/4 ML VIAL IVP ONE (20:29)
[2016-11-17] MEDS: Ipratropium/Albuterol Neb 3 ML IH SCH ×6 (00:06→20:19)
[2016-11-17] MEDS: 0.9 % Sodium Chloride 1,000 ML IVC SCH ×3 (06:08→19:57)
[2016-11-17] MEDS: Acetaminophen 325 MG TABLET PO PRN (06:50)
[2016-11-17] MEDS: Budesonide/Formoterol 160/4.5 MDI IH SCH ×2 (07:54→20:20)
[2016-11-17 09:00] LABS: Basophils % 0.2 %; Eosinophils % 0.1 %; Hematocrit 32.8 % (35.3-44.9); Hemoglobin 11.5 g/dL (11.5-15.4); Immature Platelets 2.2 % (1.1-6.1); Lymphocytes # 1.4 K/mcL (0.6-4.6); Lymphocytes % 12.6 %; Mean Corpuscular HGB Conc 35.1 g/dL (31.6-35.5); Mean Corpuscular Hemoglobin 30.5 pg (28.0-33.3); Mean Platelet Volume 8.9 fL (9.4-12.4); Monocytes # 0.8 K/mcL (0.0-1.3); Monocytes % 7.3 %; Neutrophils # 8.7 K/mcL (1.6-8.9); Platelet Count 376 K/mcL (140-400); Red Blood Count 3.77 M/mcL (3.82-4.97); Red Cell Distribution Width 12.6 % (11.5-14.5); Segmented Neutrophils % 75.8 %
[2016-11-17] MEDS: *HR* Heparin 5,000 UNIT/ML VIAL SQ SCH ×2 (09:00→16:08)
[2016-11-17] MEDS: Lactobacillus 1 EACH CAP.SPRINK PO SCH ×2 (09:00→19:56)
[2016-11-17] MEDS: Nicotine 21 MG PATCH.TD24 TD SCH (09:00)
[2016-11-17] MEDS: amLODIPine 5 MG TABLET PO SCH (09:00)
[2016-11-17 09:11] LABS: BUN/Creatinine Ratio 13 (6-26); Blood Urea Nitrogen 7 mg/dL (7-20); Calcium 8.6 mg/dL (8.6-10.8); Carbon Dioxide 25 mEq/L (19-29); Chloride 93 mEq/L (98-109); Glucose 121 mg/dL (70-99); Osmolality,Calculated 257 (280-300); Potassium 3.9 mEq/L (3.5-4.5); Sodium 124 mEq/L (136-145); eGFR For African Americans > 60 (> 60); eGFR For Non-African Americans > 60 (> 60)
--- NOTE | 2016-11-17 14:49 | Internal Med Progress Note ---
Date of Encounter: 11/17/16 Time of Encounter: 10:00 - Assessment and plan (1) Small cell 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 Current Visit: Yes Status: Acute Assessment and plan: -Heme-Onc recommendations to start C1D1 of carbo and etoposide 11/16; next doses on 11/18 and Sunday 11/19 and 11/20 respectively. - Continue IVF, prophylactic allopurinol and to start dexamethasone 8 mg daily for nausea prophylaxis, as well as Zofran PRN. (2) Healthcare-associated pneumonia Current Visit: Yes Status: Acute Assessment and plan: -Sputum culture: Haemophilus Influenzae. -Blood culture negative. -Patient completed a total of a 9 day course of IV and oral antibiotics. -Patient is now at baseline supplemental oxygen requirements. (3) Acute exacerbation of chronic obstructive airways disease Current Visit: Yes Status: Resolved Assessment and plan: -Secondary to the above. -On baseline oxygen supplementation requirements. (4) Sepsis Current Visit: Yes Status: Resolved Assessment and plan: Secondary to HCAP; resolved. Qualifiers: Sepsis type: Haemophilus influenzae Qualified Code(s): A41.3 - Sepsis due to Hemophilus influenzae (5) Hypertension Current Visit: Yes Status: Acute Assessment and plan: Blood pressure is very well controlled and will continue same medication. Qualifiers: Hypertension type: unspecified Qualified Code(s): I10 - Essential (primary ) hypertension (6) Smoking Current Visit: Yes Status: Chronic Assessment and plan: patient states that she has stopped smoking and is on nicotine patches. continue nicotine patches. (7) DVT prophylaxis Current Visit: Yes Status: Acute Assessment and plan: Subcutaneous heparin. - Subjective Interval history: Patient with no issues or complaints morning and no acute events overnight. - Constitutional Vitals: Temp Pulse Resp BP Pulse Ox 98.3 F 103 18 172/92 90 11/17/16 10:19 11/17/16 10:11/17/16 11:47 11/17/16 10:11/17/16 11:47 General appearance: Present: A&O X 3, pleasant - Respiratory Respiratory exam: Present: CTAB. Absent: accessory muscle use, rales, rhonchi, wheezes - Cardiovascular Cardiovascular exam: Present: RRR, +S1, +S2. Absent: diastolic murmur, gallop, rubs, systolic murmur Internal Medicine: Result - Labs CBC & Chem 7: 11/17/16 08:32 11/17/16 08:32 Labs: Short CBC 11/17/16 Range/Units 08:32 WBC 11.4 H (4.3-11.1) K/mcL Hgb 11.5 (11.5-15.4) g/dL Hct 32.8 L (35.3-44.9) % Plt Count 376 (140-400) K/mcL Neutrophils # 8.7 (1.6-8.9) K/mcL BMP 11/17/16 08:32 Sodium 124 L Potassium 3.9 Chloride 93 L Carbon Dioxide 25 BUN 7 Creatinine 0.54 L Glucose 121 H Calcium 8.6 - ABG Interpretation ABG results: ABG ABG pH 7.50 pH Units (7.32-7.45) H 11/10/16 10:22 ABG pCO2 40 mmHg (35-45) 11/10/16 10:22 ABG pO2 84 mmHg (85-104) L 11/10/16 10:22 ABG O2 Saturation 97 % (95-98) 11/10/16 10:22 - Impressions Impressions Abdomen/Pelvis CT 11/15/16 23:45 IMPRESSION: 1. Motion artifact limits evaluation of the upper abdomen. 2. Innumerable low-density hepatic lesions are identified, largest measuring 3.4 cm in segment 4B, most compatible with metastatic disease. 3. Joanna hepatis and gastrohepatic lymphadenopathy, largest measuring 2.9 cm. 4. Nonspecific 13 mm left internal iliac lymph node. 5. Indeterminate low-density filling defects are in noted in the gastric lumen and distal small bowel, possibly representing polypoid lesions. 6. Large stool burden noted throughout the colon. 7. Partial visualization of right hilar/mediastinal mass and right middle lobe/right lower lobe airspace opacities. D/ / 11/16/2016 07:19:16 Migel Armstrong MD / ang Interpreting Provider: Migel Armstrong MD - VTE Documentation of Mechanical Device: Graduated compression elastic hosiery Consult Discharge Plan - Plan Referrals: Lilibeth Templeton BRAILLE DUPLICATING MACHINE OPERATOR [Primary Care Provider] - 11/19/16 1:45 pm
[2016-11-17] MEDS: traZODone 50 MG TABLET PO SCH (19:56)
[2016-11-18] MEDS: *HR* Heparin 5,000 UNIT/ML VIAL SQ SCH ×3 (00:02→16:30)
[2016-11-18] MEDS: Ipratropium/Albuterol Neb 3 ML IH SCH ×7 (00:05→23:28)
[2016-11-18] MEDS: 0.9 % Sodium Chloride 1,000 ML IVC SCH ×2 (08:22→22:25)
[2016-11-18] MEDS: amLODIPine 5 MG TABLET PO SCH (08:23)
[2016-11-18] MEDS: Nicotine 21 MG PATCH.TD24 TD SCH (08:23)
[2016-11-18] MEDS: Lactobacillus 1 EACH CAP.SPRINK PO SCH ×2 (08:23→20:03)
[2016-11-18] MEDS: Budesonide/Formoterol 160/4.5 MDI IH SCH ×2 (09:05→20:19)
[2016-11-18] MEDS: ALPRAZolam 0.5 MG TABLET PO PRN (16:31)
--- NOTE | 2016-11-18 18:22 | Internal Med Progress Note ---
Date of Encounter: 11/18/16 Time of Encounter: 11:00 - Assessment and plan (1) Small cell 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 Current Visit: Yes Status: Acute Assessment and plan: -Heme-Onc recommendations to start C1D1 of carbo and etoposide 11/16; next doses on 11/18 and Sunday 11/19 and 11/20 respectively. - Continue IVF, prophylactic allopurinol and to start dexamethasone 8 mg daily for nausea prophylaxis, as well as Zofran PRN. (2) Healthcare-associated pneumonia Current Visit: Yes Status: Acute Assessment and plan: -Sputum culture: Haemophilus Influenzae. -Blood culture negative. -Patient completed a total of a 9 day course of IV and oral antibiotics. -Patient is now at baseline supplemental oxygen requirements. (3) Acute exacerbation of chronic obstructive airways disease Current Visit: Yes Status: Resolved Assessment and plan: -Secondary to the above. -On baseline oxygen supplementation requirements. (4) Sepsis Current Visit: Yes Status: Resolved Assessment and plan: Secondary to HCAP; resolved. Qualifiers: Sepsis type: Haemophilus influenzae Qualified Code(s): A41.3 - Sepsis due to Hemophilus influenzae (5) Hypertension Current Visit: Yes Status: Acute Assessment and plan: Blood pressure is very well controlled and will continue same medication. Qualifiers: Hypertension type: unspecified Qualified Code(s): I10 - Essential (primary ) hypertension (6) Smoking Current Visit: Yes Status: Chronic Assessment and plan: patient states that she has stopped smoking and is on nicotine patches. continue nicotine patches. (7) DVT prophylaxis Current Visit: Yes Status: Acute Assessment and plan: Subcutaneous heparin. - Subjective Interval history: Patient with no issues or complaints morning and no acute events overnight. - Constitutional Vitals: Temp Pulse Resp BP Pulse Ox 97.9 F 106 15 134/80 93 11/18/16 17:02 11/18/16 17:02 11/18/16 17:02 11/18/16 17:02 11/18/16 17:02 General appearance: Present: A&O X 3, pleasant - Respiratory Respiratory exam: Present: CTAB. Absent: accessory muscle use, rales, rhonchi, wheezes - Cardiovascular Cardiovascular exam: Present: RRR, +S1, +S2. Absent: diastolic murmur, gallop, rubs, systolic murmur Internal Medicine: Result - Labs CBC & Chem 7: 11/17/16 08:32 11/17/16 08:32 - ABG Interpretation ABG results: ABG ABG pH 7.50 pH Units (7.32-7.45) H 11/10/16 10:22 ABG pCO2 40 mmHg (35-45) 11/10/16 10:22 ABG pO2 84 mmHg (85-104) L 11/10/16 10:22 ABG O2 Saturation 97 % (95-98) 11/10/16 10:22 - VTE Documentation of Mechanical Device: Graduated compression elastic hosiery Consult Discharge Plan - Plan Referrals: Lilibeth Templeton, STRATEGIC ADVISOR [Primary Care Provider] - 11/19/16 1:45 pm
[2016-11-18] MEDS: traZODone 50 MG TABLET PO SCH (20:02)
[2016-11-19] MEDS ORDERED: Prochlorperazine 10 MG/2 ML VIAL IV PRN
[2016-11-19] MEDS ORDERED: Dexamethasone 10 MG/ML VIAL IV PRN
[2016-11-19] MEDS ORDERED: Famotidine 20 MG/2 ML VIAL IV PRN
[2016-11-19] MEDS ORDERED: *HR* LORazepam 2 MG/ML VIAL IV PRN
[2016-11-19] MEDS: *HR* Heparin 5,000 UNIT/ML VIAL SQ SCH ×4 (00:21→23:13)
[2016-11-19] MEDS: Ipratropium/Albuterol Neb 3 ML IH SCH ×6 (03:51→23:18)
[2016-11-19 05:36] LABS: Basophils % 0.2 %; Eosinophils % 0.1 %; Hemoglobin 10.7 g/dL (11.5-15.4); Immature Granulocytes % 1.1 % (0-4); Lymphocytes # 1.8 K/mcL (0.6-4.6); Lymphocytes % 16.5 %; Mean Corpuscular HGB Conc 33.4 g/dL (31.6-35.5); Mean Corpuscular Hemoglobin 30.1 pg (28.0-33.3); Mean Corpuscular Volume 90.1 fL (83.0-100.0); Mean Platelet Volume 9.1 fL (9.4-12.4); Monocytes # 0.3 K/mcL (0.0-1.3); Monocytes % 3.1 %; Neutrophils # 8.4 K/mcL (1.6-8.9); Platelet Count 320 K/mcL (140-400); Red Blood Count 3.55 M/mcL (3.82-4.97)
[2016-11-19 05:49] LABS: BUN/Creatinine Ratio 18 (6-26); Blood Urea Nitrogen 11 mg/dL (7-20); Calcium 8.5 mg/dL (8.6-10.8); Carbon Dioxide 23 mEq/L (19-29); Chloride 100 mEq/L (98-109); Glucose 165 mg/dL (70-99); Osmolality,Calculated 275 (280-300); Potassium 3.8 mEq/L (3.5-4.5); eGFR For African Americans > 60 (> 60); eGFR For Non-African Americans > 60 (> 60)
[2016-11-19 05:51] LABS: Sodium 131 mEq/L (136-145)
[2016-11-19] MEDS: ALPRAZolam 0.5 MG TABLET PO PRN (06:01)
[2016-11-19] MEDS: Budesonide/Formoterol 160/4.5 MDI IH SCH ×2 (08:06→19:49)
[2016-11-19] MEDS: Lactobacillus 1 EACH CAP.SPRINK PO SCH ×2 (08:31→20:22)
[2016-11-19] MEDS: Nicotine 21 MG PATCH.TD24 TD SCH (08:32)
[2016-11-19] MEDS: amLODIPine 5 MG TABLET PO SCH (08:32)
[2016-11-19] MEDS ORDERED: Dexamethasone 10 MG/ML VIAL IV SCH (13:00)
[2016-11-19] MEDS ORDERED: SODIUM CHLORIDE 0.9% IV SCH (13:30)
[2016-11-19] MEDS ORDERED: ETOPOSIDE IV SCH (13:30)
--- NOTE | 2016-11-19 18:33 | Internal Med Progress Note ---
Date of Encounter: 11/19/16 Time of Encounter: 10:00 - Assessment and plan (1) Small cell 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 Current Visit: Yes Status: Acute Assessment and plan: -Heme-Onc recommendations to start C1D1 of carbo and etoposide 11/16; next doses on 11/18 and Sunday 11/19 and 11/20 respectively. - Continue IVF, prophylactic allopurinol and to start dexamethasone 8 mg daily for nausea prophylaxis, as well as Zofran PRN. (2) Healthcare-associated pneumonia Current Visit: Yes Status: Acute Assessment and plan: -Sputum culture: Haemophilus Influenzae. -Blood culture negative. -Patient completed a total of a 9 day course of IV and oral antibiotics. -Patient is now at baseline supplemental oxygen requirements. (3) Acute exacerbation of chronic obstructive airways disease Current Visit: Yes Status: Resolved Assessment and plan: -Secondary to the above. -On baseline oxygen supplementation requirements. (4) Sepsis Current Visit: Yes Status: Resolved Assessment and plan: Secondary to HCAP; resolved. Qualifiers: Sepsis type: Haemophilus influenzae Qualified Code(s): A41.3 - Sepsis due to Hemophilus influenzae (5) Hypertension Current Visit: Yes Status: Acute Assessment and plan: Blood pressure is very well controlled and will continue same medication. Qualifiers: Hypertension type: unspecified Qualified Code(s): I10 - Essential (primary ) hypertension (6) Smoking Current Visit: Yes Status: Chronic Assessment and plan: patient states that she has stopped smoking and is on nicotine patches. continue nicotine patches. (7) DVT prophylaxis Current Visit: Yes Status: Acute Assessment and plan: Subcutaneous heparin. - Subjective Interval history: Patient with no issues or complaints morning and no acute events overnight. - Constitutional Vitals: Temp Pulse Resp BP Pulse Ox 97.4 F L 108 20 173/92 92 11/19/16 14:52 11/19/16 14:52 11/19/16 16:14 11/19/16 14:52 11/19/16 16:14 General appearance: Present: A&O X 3, pleasant - Respiratory Respiratory exam: Present: CTAB, wheezes (Expiratory wheezes). Absent: accessory muscle use, rales, rhonchi - Cardiovascular Cardiovascular exam: Present: RRR, +S1, +S2. Absent: diastolic murmur, gallop, rubs, systolic murmur Internal Medicine: Result - Labs CBC & Chem 7: 11/19/16 05:03 11/19/16 05:03 Labs: Short CBC 11/19/16 Range/Units 05:03 WBC 10.7 (4.3-11.1) K/mcL Hgb 10.7 L (11.5-15.4) g/dL Hct 32.0 L (35.3-44.9) % Plt Count 320 (140-400) K/mcL Neutrophils # 8.4 (1.6-8.9) K/mcL BMP 11/19/16 05:03 Sodium 131 L D Potassium 3.8 Chloride 100 Carbon Dioxide 23 BUN 11 Creatinine 0.62 Glucose 165 H Calcium 8.5 L - ABG Interpretation ABG results: ABG ABG pH 7.50 pH Units (7.32-7.45) H 11/10/16 10:22 ABG pCO2 40 mmHg (35-45) 11/10/16 10:22 ABG pO2 84 mmHg (85-104) L 11/10/16 10:22 ABG O2 Saturation 97 % (95-98) 11/10/16 10:22 - VTE Documentation of Mechanical Device: Graduated compression elastic hosiery Consult Discharge Plan - Plan Referrals: Lilibeth Templeton, IT RISK AND ASSURANCE SENIOR MANAGER [Primary Care Provider] -
[2016-11-19] MEDS: traZODone 50 MG TABLET PO SCH (20:33)
[2016-11-20] MEDS ORDERED: Dexamethasone 10 MG/ML VIAL IV PRN
[2016-11-20] MEDS ORDERED: SODIUM CHLORIDE 0.9% IV SCH
[2016-11-20] MEDS ORDERED: *HR* LORazepam 2 MG/ML VIAL IV PRN
[2016-11-20] MEDS ORDERED: Famotidine 20 MG/2 ML VIAL IV PRN
[2016-11-20] MEDS ORDERED: ETOPOSIDE IV SCH
[2016-11-20] MEDS ORDERED: Prochlorperazine 10 MG/2 ML VIAL IV PRN
[2016-11-20] MEDS: 0.9 % Sodium Chloride 1,000 ML IVC SCH (02:37)
[2016-11-20] MEDS: Ipratropium/Albuterol Neb 3 ML IH SCH ×3 (03:35→11:12)
[2016-11-20 04:12] LABS: Basophils % 0.1 %; Hematocrit 32.5 % (35.3-44.9); Hemoglobin 10.8 g/dL (11.5-15.4); Immature Granulocytes % 0.8 % (0-4); Lymphocytes # 1.1 K/mcL (0.6-4.6); Lymphocytes % 10.8 %; Mean Corpuscular HGB Conc 33.2 g/dL (31.6-35.5); Mean Corpuscular Hemoglobin 29.8 pg (28.0-33.3); Mean Corpuscular Volume 89.8 fL (83.0-100.0); Monocytes # 0.2 K/mcL (0.0-1.3); Neutrophils # 8.5 K/mcL (1.6-8.9); Platelet Count 327 K/mcL (140-400); Red Blood Count 3.62 M/mcL (3.82-4.97); Segmented Neutrophils % 86.3 %
[2016-11-20 04:25] LABS: BUN/Creatinine Ratio 19 (6-26); Blood Urea Nitrogen 10 mg/dL (7-20); Calcium 8.8 mg/dL (8.6-10.8); Carbon Dioxide 27 mEq/L (19-29); Chloride 99 mEq/L (98-109); Glucose 83 mg/dL (70-99); Osmolality,Calculated 272 (280-300); Potassium 4.3 mEq/L (3.5-4.5); Sodium 132 mEq/L (136-145); eGFR For African Americans > 60 (> 60); eGFR For Non-African Americans > 60 (> 60)
[2016-11-20] MEDS: Nicotine 21 MG PATCH.TD24 TD SCH (08:19)
[2016-11-20] MEDS: Lactobacillus 1 EACH CAP.SPRINK PO SCH (08:20)
[2016-11-20] MEDS: amLODIPine 5 MG TABLET PO SCH (08:20)
[2016-11-20] MEDS: *HR* Heparin 5,000 UNIT/ML VIAL SQ SCH (08:20)
[2016-11-20] MEDS: Budesonide/Formoterol 160/4.5 MDI IH SCH (08:50)
[2016-11-20 10:18] VITALS: BP 171/80
--- NOTE | 2016-11-20 11:35 | Discharge Summary ---
Date of Encounter: 11/20/16 Time of Encounter: 11:34 - Discharge Diagnosis (1) Acute exacerbation of chronic obstructive airways disease Priority: Primary Status: Resolved (2) Hyponatremia Priority: Secondary Status: Chronic (3) Smoking Priority: Secondary Status: Chronic (4) Acute and chronic respiratory failure Priority: Primary Status: Resolved Qualifiers: Respiratory failure complication: hypoxia Qualified Code(s): J96.21 - Acute and chronic respiratory failure with hypoxia (5) Hypertension Priority: Secondary Status: Chronic Qualifiers: Hypertension type: essential hypertension Qualified Code(s): I10 - Essential (primary) hypertension (6) Healthcare-associated pneumonia Priority: Primary Status: Resolved (7) Sepsis Priority: Primary Status: Resolved Qualifiers: Sepsis type: Haemophilus influenzae Qualified Code(s): A41.3 - Sepsis due to Hemophilus influenzae (8) Small cell 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 Priority: Primary Status: Acute - Discharge Medications Prescriptions: Ondansetron [Zofran ODT] 8 mg SL Q4HR PRN #20 tab.rapdis PRN Reason: Nausea Allopurinol [Zyloprim 300 MG] 300 mg PO DAILY #10 tablet ALPRAZolam [Xanax 0.5 MG Tablet] 0.5 mg PO BID PRN #10 tablet PRN Reason: Anxiety HydrOXYzine 25 mg PO HS #30 tablet Home Medications: DULoxetine [Cymbalta] 30 mg PO HS 02/15/16 [History] Trazodone HCl 200 mg PO HS 02/15/16 [History] Melatonin/Pyridoxine HCl (B6) [Melatonin 3 mg Tablet] 3 mg PO HS 05/02/16 [ History] Albuterol Neb [Proventil Neb] 2.5 mg IH Q6H PRN 10/14/16 [History] Albuterol Sulfate [Albuterol Inhaler] 2 puff IH Q6H PRN 10/14/16 [History] Budesonide/Formoterol 160/4.5 [Symbicort 160/4.5] 2 puff IH BIDR 10/14/16 [ History] Oxygen 2 l .ROUTE AD 10/14/16 [History] Tiotropium [Spiriva] 18 mcg IH DAILY 10/14/16 [History] Nicotine Patch [Nicoderm] 21 mg TD DAILY #30 patch.td24 10/17/16 [Rx] amLODIPine [Norvasc] 5 mg PO DAILY #30 tab 10/17/16 [Rx] ALPRAZolam [Xanax 0.5 MG Tablet] 0.5 mg PO BID PRN #10 tablet 11/20/16 [Rx] Allopurinol [Zyloprim 300 MG] 300 mg PO DAILY #10 tablet 11/20/16 [Rx] HydrOXYzine 25 mg PO HS #30 tablet 11/20/16 [Rx] Ondansetron [Zofran ODT] 8 mg SL Q4HR PRN #20 tab.rapdis 11/20/16 [Rx] Allergies/Adverse Reactions: 3 Allergy/AdvReac Type Severity Reaction Status Date / Time No Known Allergies Allergy Verified 10/14/16 13:33 Date of admission: 11/08/16 19:19 Primary care physician: Lilibeth Templeton CNP Consults: 11/15/16 11:03 Consult to Oncology [CONS] Routine Consulting Provider: [facility] Reason for Consult: New small cell carcenoma Call Completed: Yes 11/16/16 13:10 Consult to Invasive Line Access Team [CONS] Routine Reason for Consult: Picc Line Insertion Line Type: PICC 11/16/16 13:18 Consult to Invasive Line Access Team [CONS] Routine Reason for Consult: Picc Line Insertion Line Type: PICC Discharging clinician: Everette Dick Anticipated date of discharge: 11/20/16 - Patient Status Disposition: Home, Self-Care Condition: Fair Functional capacity at discharge: independent ambulation Overall status at discharge: patient is progressing back to baseline - Discharge Instructions Follow Up With: Linda Bird MD [Partnered Physician] - 12/13/16 2:40 pm Lilibeth Templeton CNP [Primary Care Provider] - 11/26/16 1:30 pm - Diet and Activity Activity: resume usual activities as tolerated, wear oxygen at all times Diet: low salt diet Interval History: See below Hospital course: Ms. Keenan is a 61 year old female who was admitted for management of sepsis secondary to healthcare associated pneumonia, acute on chronic hypoxic respiratory failure secondary to COPD exacerbation, pneumonia and newly diagnosed small cell carcinoma. She has a past medical history of hypertension , tobacco abuse and COPD. She is seen and evaluated at the bedside this morning. She denies new complaints and is requesting to be discharged home after having last dose of chemotherapy this morning. Her oxygen requirement is back to her baseline, and has sepsis has resolved. Today he started a on the first cycle of chemotherapy. I discussed with the oncologist, and they have an appointment to see the patient in 2 days time. Her blood pressure is a bit uncontrolled possibly secondary to high doses of dexamethasone which she received prior to her chemotherapy. Otherwise patient denies new complaints and is clinically stable to be discharged home. She has completed the 9 days course of IV antibiotics for pneumonia in-patient. She was also started on anxiolytics. She will be discharged home with family, follow up with Oncologist and PCP Resume all home meds 3 mins of tobacco cessation counseling done, NRT provided Time spent discussing smoking cessation with patient: 3 to 10 minutes - Time Spent with Patient Total time spent providing and/or coordinating discharge services: Greater than 30 minutes - Constitutional Vitals: Temp Pulse Resp BP Pulse Ox 98.0 F 107 16 171/80 96 11/20/16 10:17 11/20/16 10:17 11/20/16 11:14 11/20/16 10:11/20/16 11:14 General appearance: Present: A&O X 3, pleasant, no acute distress, answers questions appropriately - Head Head exam: Present: atraumatic, normocephalic - Eye Eye exam: Present: PERRL, conjuntiva pink, sclera anicteric Pupils: Present: PERRL - Neck Neck exam general surgery: Present: supple, trachea midline. Absent: lymphadenopathy - Respiratory Respiratory exam: Present: rhonchi - Cardiovascular Cardiovascular exam: Present: RRR, +S1, +S2. Absent: diastolic murmur, gallop, rubs, systolic murmur - GI/Abdominal GI/Abdominal exam: Present: normal bowel sounds, soft, no peritoneal signs. Absent: distended, tenderness - Extremities Exam Extremities exam: Present: warm, radial pulses palpable and symmetrical. Absent : calf tenderness, cyanotic, pedal edema - Neurological Exam Neurological exam: Present: alert, CN II-XII intact, oriented X3, no focal deficits. Absent: pronater drift, facial droop, speech deficit - Skin Skin exam: Present: dry, intact - VTE Documentation of Mechanical Device: Graduated compression elastic hosiery
[2016-11-20] MEDS ORDERED: Dexamethasone 10 MG/ML VIAL IV SCH (13:00)
== END 2016-11-20 15:30 | disposition home or self-care (01) | DRG 871 ==
LOC: 3ANU 16:12 → EMEROO 16:12 → 3ANU 18:35 → SUATTDRO 19:19
PROVIDERS: ADMIT Internal Medicine; ATTEND Internal Medicine

== ENCOUNTER 2016-12-14 17:47 | Inpatient (IN) ==
[2016-12-14] MEDS ORDERED: *HR* HYDROmorphone (PF) 1 MG/ML SYRINGE IVP ONE ×2 (18:16→20:46)
[2016-12-14] MEDS ORDERED: Ondansetron 4 MG/2 ML VIAL IVP ONE ×2 (18:16→20:46)
[2016-12-14 18:32] LABS: Eosinophils % 0.3 %; Hematocrit 28.4 % (35.3-44.9); Hemoglobin 9.3 g/dL (11.5-15.4); Immature Granulocytes % 0.7 % (0-4); Immature Platelets 1.8 % (1.1-6.1); Lymphocytes # 1.7 K/mcL (0.6-4.6); Lymphocytes % 15.8 %; Mean Corpuscular HGB Conc 32.7 g/dL (31.6-35.5); Mean Corpuscular Hemoglobin 30.2 pg (28.0-33.3); Mean Corpuscular Volume 92.2 fL (83.0-100.0); Mean Platelet Volume 8.8 fL (9.4-12.4); Monocytes % 0.3 %; Neutrophils # 8.7 K/mcL (1.6-8.9); Platelet Count 318 K/mcL (140-400); Red Blood Count 3.08 M/mcL (3.82-4.97); Red Cell Distribution Width 13.8 % (11.5-14.5); Segmented Neutrophils % 82.9 %
[2016-12-14 18:38] LABS: INR 1.1; Prothrombin Time 11.4 Seconds (9.4-12.1)
[2016-12-14 18:40] LABS: Activated Partial Thrombo Time 22.8 Seconds (26.0-36.0)
[2016-12-14] MEDS ORDERED: Ipratropium/Albuterol Neb 3 ML IH ONE ×2 (18:44→21:59)
[2016-12-14] MEDS ORDERED: methylPREDNISolone 125 MG/2 ML VIAL IVP ONE (18:44)
[2016-12-14 18:47] LABS: BUN/Creatinine Ratio 19 (6-26); Blood Urea Nitrogen 10 mg/dL (7-20); Calcium 8.3 mg/dL (8.6-10.8); Carbon Dioxide 27 mEq/L (19-29); Chloride 99 mEq/L (98-109); Glucose 91 mg/dL (70-99); Osmolality,Calculated 273 (280-300); Potassium 3.7 mEq/L (3.5-4.5); Sodium 132 mEq/L (136-145); eGFR For African Americans > 60 (> 60); eGFR For Non-African Americans > 60 (> 60)
--- NOTE | 2016-12-14 18:47 | Emergency Department Note ---
START Narrative - START START: I examined this patient and my medical decision-making was reviewed with the CAUSTIC STRENGTH INSPECTOR/PA/Advanced Practice Nurse/Resident Physician. I agree with the documented findings, disposition and treatment plan as described except to the extent set forth below. ED attending note: Patient seen with emergency medicine resident Dr. MADERA. We independently evaluated the patient. We independently had [id number] contact with the patient. Please see a copy of his note for details of the history and physical, evaluation, management and disposition of this emergency Department patient. Briefly: A 61-year-old female recently diagnosed 2 months ago with lung cancer presents tachycardic And hypotensive systolic of 95/77 with right basilar anterior lung pain patient has some shortness of breath she says that is different from her COPD worse with deep breaths sharp in her right lower rib cage. She is a smoker as well. Aside from acute coronary syndrome pulmonary embolism is needs to be ruled out patient will get a CT angiogram of her chest to exclude pulmonary embolism. Providing 45 minutes of critical care service for this patient. Disposition pending, admission anticipated. Patient was also given DuoNeb treatments for bilateral expiratory wheezes.
[2016-12-14 18:57] LABS: Platelet Estimate Normal (Normal)
--- NOTE | 2016-12-14 20:34 | Emergency Department Note ---
Disposition Clinical Impression: COPD exacerbation Chest pain Qualifiers: Chest pain type: chest pain on breathing Qualified Code(s): R07.1 - Chest pain on breathing Disposition: Admitted As Inpatient Condition: Fair Time of Disposition: 22:07 General Adult HPI - General Chief complaint: ED Abdominal Pain Stated complaint: right abdominal and flank pain Time Seen by Provider: 12/14/16 17:51 Source: patient, EMS Limitations: no limitations Nursing Notes Reviewed: Yes Vital Signs Reviewed: Yes - History of Present Illness HPI Narrative: Patient is a 61-year-old female who presents to [facility] ED with a chief complaint of right lower chest discomfort. States it started yesterday and has been worsening today. She has been a little more short of breath. Pain is worse with deep breaths. Patient diagnosed with lung cancer approximately 2 months ago. She has completed her second dose of chemotherapy which was administered on Saturday, Saturday, Saturday. Denies any nausea, vomiting, fever or chills. No recent cough. Patient does have COPD and has been using her nebulizer at home. States she gave herself a breathing treatment just prior to arrival. Onset (ago): day(s) Location: chest Radiation: non-radiation Pain Severity: moderate Pain Scale: 2 Consistency: constant Improves with: nothing Worsens with: nothing Associated symptoms: Reports: chest pain, shortness of breath, weakness. Denies : fever/chills Treatments Prior to Arrival: none - Related Data Home Medications Medication Instructions Recorded Confirmed DULoxetine [Cymbalta] 30 mg PO HS 02/15/16 12/14/16 Trazodone HCl 200 mg PO HS 02/15/16 12/14/16 Melatonin/Pyridoxine HCl (B6) 3 mg PO HS 05/02/16 12/14/16 [Melatonin 3 mg Tablet] Albuterol Neb [Proventil Neb] 2.5 mg IH Q6H PRN 10/14/16 12/14/16 Albuterol Sulfate [Albuterol 2 puff IH Q6H PRN 10/14/16 12/14/16 Inhaler] Budesonide/Formoterol 160/4.5 2 puff IH BIDR 10/14/16 12/14/16 [Symbicort 160/4.5] Oxygen 2 l .ROUTE AD 10/14/16 12/14/16 Tiotropium [Spiriva] 1 puff IH DAILY 10/14/16 12/14/16 Ascorbate Calcium [Vitamin C] 500 mg PO DAILY 12/14/16 12/14/16 predniSONE [PredniSONE] See Taper PO DAILY 12/14/16 12/14/16 Previous Rx's Medication Instructions Recorded HydrOXYzine 25 mg PO HS #30 tablet 11/20/16 Ondansetron [Zofran ODT] 8 mg SL Q4HR PRN #20 tab.rapdis 11/20/16 Dexamethasone [Decadron] 4 mg PO BID #30 tab 11/27/16 Magic Mouthwash [Magic Mouthwash 10 ml PO QID PRN #240 ml 11/27/16 BLM] LORazepam [Ativan] 0.5 mg PO BID #60 tablet 11/29/16 Allergies Allergy/AdvReac Type Severity Reaction Status Date / Time No Known Allergies Allergy Verified 12/14/16 17:49 All systems ED: reviewed and negative except as stated. Past Medical History - Past Medical History Attestation: Yes The following information was validated with the patient. Source: patient Medical history: Reports: cancer, COPD, hypertension Surgical history: Reports: hysterectomy Psychiatric history: Reports: anxiety, depression [employer]PERVISOR [employer] history: Reports: no SUPERVISOR [employer] history - Social History Smoking Status: Former smoker Smokeless Tobacco Status: No Alcohol use: Reports: none Drug use: Reports: none, opiates, other Physical Exam - General Limitations: no limitations General appearance: alert - Head Head exam: atraumatic, normocephalic, normal inspection - Eye Eye exam: Present: normal appearance, PERRL, EOMI - ENT ENT exam: normal exam, normal oropharynx, mucous membranes moist - Neck Neck exam: Present: normal inspection, full ROM, trachea midline - Chest Chest inspection: Present: normal inspection, symmetric chest wall rise - Respiratory Respiratory exam: Present: wheezes (Decreased breath sounds throughout with diffuse wheezes) - Cardiovascular Cardiovascular exam: Present: normal rhythm, tachycardia - Abdominal Exam Abdominal exam: Present: soft, Non-Tender. Absent: tenderness, distention, guarding, rebound, rigidity - Extremities Exam Extremities exam: Present: normal inspection, full ROM. Absent: tenderness, pedal edema - Back Exam Back exam: Present: normal inspection, full ROM. Absent: tenderness - Neurological Exam Neurological exam: Present: alert, oriented X3 - Psychiatric Psychiatric exam: Present: normal affect, normal mood - Skin Skin exam: Present: warm, dry, intact, normal color Course Course Narrative: Patient seen and examined. Right lower chest discomfort. Cardiopulmonary workup initiated. We will go ahead and do a CTA of the chest since patient is at high risk of having a pulmonary embolus and is tachycardic and hypoxemic. - Reevaluation(s) Reevaluation #1: Patient's lab work appears unremarkable. Her CTA of the chest negative for any acute abnormalities including pulmonary embolus. However due to patient's continued tachycardia and hypoxemia as well as diffuse wheezes, we will go ahead and admit for COPD exacerbation. Patient currently saturating 85-88% on 2 L. I discussed patient with hospitalist Dr. Haas and patient has been admitted. Time: 22:07 Vital Signs Temperature 98.4 F 12/14/16 17:51 Pulse Rate 104 12/14/16 17:51 Respiratory Rate 28 12/14/16 17:51 Blood Pressure 97/83 12/14/16 17:51 O2 Sat by Pulse Oximetry 93 12/14/16 17:51 Temperature 98.4 F 12/14/16 17:51 Pulse Rate 107 12/14/16 19:21 Respiratory Rate 19 12/14/16 19:37 Blood Pressure 129/74 12/14/16 19:37 O2 Sat by Pulse Oximetry 90 12/14/16 19:37 Oxygen Delivery Oxygen Delivery Nasal Cannula Medical Decision Making - Medical Records Medical records reviewed: Yes I reviewed the patient's medical records. - Lab Data Lab results reviewed: Yes I reviewed the patient's lab results. Result diagrams: 12/14/16 18:22 12/14/16 18:22 Lab Results 12/14/16 12/14/16 12/14/16 Range/Units 18:22 18:22 18:22 WBC 10.5 (4.3-11.1) K/mcL RBC 3.08 L (3.82-4.97) M/mcL Hgb 9.3 L (11.5-15.4) g/dL Hct 28.4 L (35.3-44.9) % MCV 92.2 (83.0-100.0) fL MCH 30.2 (28.0-33.3) pg MCHC 32.7 (31.6-35.5) g/dL RDW 13.8 (11.5-14.5) % Plt Count 318 (140-400) K/mcL MPV 8.8 L (9.4-12.4) fL Immature Gran % 0.7 (0-4) % Seg Neutrophils % 82.9 % Lymphocytes % 15.8 % Monocytes % 0.3 % Eosinophils % 0.3 % Basophils % 0.0 % Neutrophils # 8.7 (1.6-8.9) K/mcL Lymphocytes # 1.7 (0.6-4.6) K/mcL Monocytes # 0.0 (0.0-1.3) K/mcL Eosinophils # 0.0 (0.0-0.6) K/mcL Basophils # 0.0 (0.0-0.2) K/mcL Platelet Estimate Normal (Normal) Immature Plt Fraction 1.8 (1.1-6.1) % PT 11.4 (9.4-12.1) Seconds INR 1.1 APTT 22.8 L (26.0-36.0) Seconds Sodium 132 L (136-145) mEq/L Potassium 3.7 (3.5-4.5) mEq/L Chloride 99 (98-109) mEq/L Carbon Dioxide 27 (19-29) mEq/L BUN 10 (7-20) mg/dL Creatinine 0.53 L (0.57-1.11) mg/dL Est GFR ( Amer) > 60 (> 60) Est GFR (Non-Af Amer) > 60 (> 60) BUN/Creatinine Ratio 19 (6-26) Glucose 91 (70-99) mg/dL Calculated Osmolality 273 L (280-300) Calcium 8.3 L (8.6-10.8) mg/dL Troponin I (0-0.03) ng/mL 12/14/16 Range/Units 18:22 WBC (4.3-11.1) K/mcL RBC (3.82-4.97) M/mcL Hgb (11.5-15.4) g/dL Hct (35.3-44.9) % MCV (83.0-100.0) fL MCH (28.0-33.3) pg MCHC (31.6-35.5) g/dL RDW (11.5-14.5) % Plt Count (140-400) K/mcL MPV (9.4-12.4) fL Immature Gran % (0-4) % Seg Neutrophils % % Lymphocytes % % Monocytes % % Eosinophils % % Basophils % % Neutrophils # (1.6-8.9) K/mcL Lymphocytes # (0.6-4.6) K/mcL Monocytes # (0.0-1.3) K/mcL Eosinophils # (0.0-0.6) K/mcL Basophils # (0.0-0.2) K/mcL Platelet Estimate (Normal) Immature Plt Fraction (1.1-6.1) % PT (9.4-12.1) Seconds INR APTT (26.0-36.0) Seconds Sodium (136-145) mEq/L Potassium (3.5-4.5) mEq/L Chloride (98-109) mEq/L Carbon Dioxide (19-29) mEq/L BUN (7-20) mg/dL Creatinine (0.57-1.11) mg/dL Est GFR ( Amer) (> 60) Est GFR (Non-Af Amer) (> 60) BUN/Creatinine Ratio (6-26) Glucose (70-99) mg/dL Calculated Osmolality (280-300) Calcium (8.6-10.8) mg/dL Troponin I 0.00 (0-0.03) ng/mL - Radiology Data Radiology results reviewed: Yes I reviewed the patient's radiology results. Chest CTA 12/14/16 18:08 IMPRESSION: No evidence of acute pulmonary embolism. Mediastinal adenopathy and right hilar mass as detailed above. These appear to be slightly decreased in size from prior examination. New irregular nodular opacity in the right apex adjacent to a cystic space. This could represent acute airspace disease or possibly a metastatic lesion. Follow-up is recommended. The right lower lobe airway is now patent with significantly improved aeration in the right lower lobe. Compression fractures at T8 and T12 which are new from the prior examination performed 11/10/2016. Further evaluation with MRI is recommended. D/ / 12/14/2016 19:46:34 Alexander Damon MD / bcarter Interpreting Provider: Alexander Damon MD - EKG Data EKG #1 EKG attestation: Yes I reviewed and interpreted this EKG. EKG results narrative: EKG done at 1841 shows sinus tachycardia with a rate of [address] elevation or depression. Normal axis.
[2016-12-14] MEDS ORDERED: *HR* Morphine 2 MG/ML SYRINGE IVP ONE (23:39)
[2016-12-14] MEDS ORDERED: *HR* Morphine 2 MG/ML SYRINGE ONE (23:45)
[2016-12-15] MEDS ORDERED: Ondansetron 4 MG/2 ML VIAL IVP PRN (00:56)
[2016-12-15] MEDS ORDERED: Magic Mouthwash 10 ML UD Cup PO PRN (00:58)
[2016-12-15] MEDS ORDERED: NON-FORMULARY MEDICATION 1 EACH EACH (Oxygen [Oxygen] 2 L) SCH (01:00)
--- NOTE | 2016-12-15 01:20 | Internal Med History&Physical ---
Date of Encounter: 12/15/16 Time of Encounter: 01:18 Assessment and Plan (1) Chest pain Current visit: Yes Status: Acute muskloskletal in origin. Will check right side rib Xray to r/o rib fracture. lidoderm patch. Pain control with opiates. No PE on ct. Qualifiers: Qualified Code(s): R07.9 - Chest pain, unspecified (2) Lung cancer Current visit: Yes Status: Acute Small cell lung cancer, chemotherapy. Qualifiers: Qualified Code(s): C34.90 - Malignant neoplasm of unspecified part of unspecified bronchus or lung (3) Acute exacerbation of chronic obstructive airways disease Current visit: No Status: Resolved COPD with some increasing baseline cough. Will keep Patient on smolders of PO steroids and nebulizer treatment. Internal Medicine - H&P: HPI Chief complaint: chest pain History of present illness: Ms. Keenan is a 61 year old female with history of COPD on home oxygen, recently diagnosed small cell lung cancer presents to the emergency room today with a main component of chest pain. Since yesterday patient started having right to search chest pain worsens with movement coughing or deep inspiration. She does not recall any trauma. She denies any hemoptysis leg pain or tenderness. No prior history of DVD or pulmonary embolism. She has some increased cough but denies purulent sputum production. She has low-grade fever at home. CT scan in the emergency room showed no evidence of pulmonary embolism. Patient requiring large doses of opiate medications intravenously so has been admitted to hospital for pain control. Past Med Surg Social Fam HX - Past Medical History Medical history: cancer, COPD, hypertension Psychiatric history: anxiety, depression - Past Surgical History Surgical History: hysterectomy - Social History Smoking Status: Former smoker Smokeless Tobacco Status: No Alcohol use: none Drug use: none - Family History Sister Living Status: Still Living Hx Family Cardiac Disorders: Yes (HTN) Hx Family Cancer: Yes (cervical) Mother Living Status: Father Living Status: Hx Family Cardiac Disorders: Yes Internal Medicine - H&P: Meds DULoxetine [Cymbalta] 30 mg PO HS 02/15/16 [History] Trazodone HCl 200 mg PO HS 02/15/16 [History] Melatonin/Pyridoxine HCl (B6) [Melatonin 3 mg Tablet] 3 mg PO HS 05/02/16 [ History] Albuterol Neb [Proventil Neb] 2.5 mg IH Q6H PRN 10/14/16 [History] Albuterol Sulfate [Albuterol Inhaler] 2 puff IH Q6H PRN 10/14/16 [History] Budesonide/Formoterol 160/4.5 [Symbicort 160/4.5] 2 puff IH BIDR 10/14/16 [ History] Oxygen 2 l .ROUTE AD 10/14/16 [History] Tiotropium [Spiriva] 1 puff IH DAILY 10/14/16 [History] HydrOXYzine 25 mg PO HS #30 tablet 11/20/16 [Rx] Ondansetron [Zofran ODT] 8 mg SL Q4HR PRN #20 tab.rapdis 11/20/16 [Rx] Dexamethasone [Decadron] 4 mg PO BID #30 tab 11/27/16 [Rx] Magic Mouthwash [Magic Mouthwash BLM] 10 ml PO QID PRN #240 ml 11/27/16 [Rx] LORazepam [Ativan] 0.5 mg PO BID #60 tablet 11/29/16 [Rx] Ascorbate Calcium [Vitamin C] 500 mg PO DAILY 12/14/16 [History] predniSONE [PredniSONE] See Taper PO DAILY 12/14/16 [History] 3 Allergy/AdvReac Type Severity Reaction Status Date / Time No Known Allergies Allergy Verified 12/14/16 17:49 All Systems PM: A 10-system review of systems was performed and is negative for pertinent findings except as documented above in the HPI. Review of systems: 10 point review of systems is negative except for HPI - Constitutional Vitals: Temp Pulse Resp BP Pulse Ox 97.9 F 113 18 115/62 91 12/14/16 23:19 12/14/16 23:19 12/14/16 23:19 12/14/16 23:19 12/14/16 23:19 Exam: Gen.: patient is alert oriented times 3 not in distress cardiac: Normal S1, S2, no additional sounds or murmurs chest: slightly diminished air entry Abdomen: Soft, non-tender, non distended. No rebound lower extremity Lax calf muscles no swelling Neuro: no focal deficits Internal Med - H&P Results - Labs CBC & Chem 7: 12/14/16 18:22 12/14/16 18:22
[2016-12-15] MEDS: *HR* Morphine 2 MG/ML SYRINGE IVP PRN ×6 (02:44→19:02)
[2016-12-15] MEDS ORDERED: Ipratropium/Albuterol Neb 3 ML IH SCH (04:00)
[2016-12-15] MEDS ORDERED: Ipratropium/Albuterol Neb 3 ML IH PRN (04:43)
[2016-12-15] MEDS: *HR* Heparin 5,000 UNIT/ML VIAL SQ SCH ×2 (05:49→18:33)
[2016-12-15] MEDS: Famotidine 20 MG/2 ML VIAL IVP SCH ×2 (05:49→18:34)
[2016-12-15 06:10] LABS: Hematocrit 29.8 % (35.3-44.9); Hemoglobin 9.7 g/dL (11.5-15.4); Immature Granulocytes % 0.5 % (0-4); Lymphocytes # 0.2 K/mcL (0.6-4.6); Lymphocytes % 3.4 %; Mean Corpuscular HGB Conc 32.6 g/dL (31.6-35.5); Mean Corpuscular Hemoglobin 30.1 pg (28.0-33.3); Mean Corpuscular Volume 92.5 fL (83.0-100.0); Monocytes % 0.2 %; Platelet Count 339 K/mcL (140-400); Red Blood Count 3.22 M/mcL (3.82-4.97); Red Cell Distribution Width 13.6 % (11.5-14.5); Segmented Neutrophils % 95.9 %
[2016-12-15 06:23] LABS: BUN/Creatinine Ratio 21 (6-26); Blood Urea Nitrogen 12 mg/dL (7-20); Carbon Dioxide 31 mEq/L (19-29); Chloride 100 mEq/L (98-109); Glucose 129 mg/dL (70-99); Osmolality,Calculated 285 (280-300); Potassium 4.3 mEq/L (3.5-4.5); Sodium 137 mEq/L (136-145); eGFR For African Americans > 60 (> 60); eGFR For Non-African Americans > 60 (> 60)
[2016-12-15] MEDS ORDERED: GuaiFENesin Liq 200 MG/10 ML UDC PO PRN (07:33)
[2016-12-15] MEDS: Ipratropium/Albuterol Neb 3 ML IH SCH ×5 (08:02→23:53)
[2016-12-15] MEDS: Budesonide/Formoterol 160/4.5 MDI IH SCH ×2 (08:03→20:57)
--- NOTE | 2016-12-15 08:19 | Internal Med Progress Note ---
Date of Encounter: 12/15/16 Time of Encounter: 07:30 - Assessment and plan (1) Small cell 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 Current Visit: No Status: Acute Assessment and plan: Per patient history. She is undergoing chemotherapy. Follow up outpatient after discharge. (2) COPD exacerbation Current Visit: Yes Status: Acute Assessment and plan: Possible mild acute exacerbation. Lungs with wheezing and rhonchi throughout. Patient denies any change in her baseline need for oxygen. O2 sats are in the mid to high 90s on 2 L. Patient with moist sounding sometimes productive cough. Chest CTA without evidence for PE, mediastinal adenopathy and right hilar mass slightly decreased from prior exam, new irregular nodular opacity noted, possibly metastatic. Follow-up is recommended. Right lower lobe now patent significantly improved aeration. Compression fractures at T8 and T12 which are new from prior exam. Recommend further evaluation with MRI. Pt denies any known injury. DuoNeb nebs every 4 hours scheduled Symbicort inhaler 2 puffs twice daily Robitussin every 6 hours as needed Prednisone 40 mg daily Albuterol nebulizer treatments every 2 hours as needed Incentive spirometry (3) Chest pain Current Visit: Yes Status: Acute Assessment and plan: Pt with R lateral rib pain, worse with inspiration and movement. Right rib xray ordered and pending. Pt with 10/10 pain with movement. T8 and T10 compression fx noted on CTA. MRI ordered stat and pending. Compression fx could be cause of pts pain. Continue with pain medication MRI and rib xray ordered and pending. Incentive spirometry Plan as above. Qualifiers: Chest pain type: chest pain on breathing Qualified Code(s): R07.1 - Chest pain on breathing; R07.81 - Pleurodynia (4) DVT prophylaxis Current Visit: No Status: Acute Assessment and plan: Heparin SQ. - Time Spent With Patient less than 15 minutes - Subjective Interval history: Patient was seen and assessed at 7:30 AM. She is awake and alert and in good spirits. She reports feeling significantly better today. She is getting adequate pain control. Patient is concerned about going home today due to the very good possibility of increasing pain at home, as well as difficulty breathing. Patient most likely will stay overnight for pain control, breathing treatments, steroids etc. and will look at discharging her tomorrow. - Constitutional Vitals: Temp Pulse Resp BP Pulse Ox 98.6 F 110 18 145/78 95 12/15/16 07:27 12/15/16 07:27 12/15/16 07:27 12/15/16 07:27 12/15/16 07:27 General appearance: Present: mild distress, A&O X 3, pleasant, answers questions appropriately - Head Head exam: Present: atraumatic, normal inspection, normocephalic - Eye Eye exam: Present: normal appearance, conjuntiva pink, sclera anicteric - Neck Neck exam general surgery: Present: normal inspection, supple, trachea midline. Absent: lymphadenopathy, tenderness - Respiratory Respiratory exam: Present: chest wall tenderness, CTAB, rhonchi, wheezes. Absent: accessory muscle use, rales - Cardiovascular Cardiovascular exam: Present: RRR, +S1, +S2. Absent: diastolic murmur, gallop, rubs, systolic murmur - GI/Abdominal GI/Abdominal exam: Present: normal bowel sounds, soft, no peritoneal signs. Absent: distended, hepatomegaly, tenderness - Extremities Exam Extremities exam: Present: normal capillary refill, warm, radial pulses palpable and symmetrical. Absent: calf tenderness, cyanotic, pedal edema, tenderness - Neurological Exam Neurological exam: Present: alert, oriented X3, no focal deficits. Absent: facial droop, speech deficit - Skin Skin exam: Present: dry, intact, normal color, warm. Absent: rash Internal Medicine: Result - Labs CBC & Chem 7: 12/15/16 06:03 12/15/16 06:03 Labs: Short CBC 12/15/16 Range/Units 06:03 WBC 6.2 (4.3-11.1) K/mcL Hgb 9.7 L (11.5-15.4) g/dL Hct 29.8 L (35.3-44.9) % Plt Count 339 (140-400) K/mcL Neutrophils # 6.0 (1.6-8.9) K/mcL BMP 12/15/16 06:03 Sodium 137 Potassium 4.3 Chloride 100 Carbon Dioxide 31 H BUN 12 Creatinine 0.56 L Glucose 129 H Calcium 9.0 Cardiac Enzymes 12/15/16 Range/Units 06:03 Troponin I 0.00 (0-0.03) ng/mL - ABG Interpretation ABG results: PT/INR, D-dimer PT 11.4 Seconds (9.4-12.1) 12/14/16 18:22 Consult Discharge Plan - Plan Referrals: Lilibeth Templeton, OMA [Primary Care Provider] -
[2016-12-15] MEDS: *HR* LORazepam 0.5 MG TABLET PO SCH ×2 (08:43→20:21)
[2016-12-15] MEDS: predniSONE 20 MG TABLET PO SCH (08:43)
[2016-12-15] MEDS ORDERED: *HR* LORazepam 2 MG/ML VIAL IVP ONE (09:04)
[2016-12-15] MEDS ORDERED: *HR* HYDROmorphone (PF) 1 MG/ML SYRINGE IVP ONE ×2 (10:24→10:25)
[2016-12-15] MEDS: Nicotine 14 MG PATCH.TD24 TD SCH (12:46)
[2016-12-15] MEDS: Melatonin 3 MG TABLET PO SCH (20:21)
[2016-12-15] MEDS: traZODone 50 MG TABLET PO SCH (20:21)
[2016-12-16] MEDS: *HR* Morphine 2 MG/ML SYRINGE IVP PRN ×3 (03:41→11:24)
[2016-12-16] MEDS: Ipratropium/Albuterol Neb 3 ML IH SCH ×6 (03:54→23:10)
[2016-12-16] MEDS: *HR* Heparin 5,000 UNIT/ML VIAL SQ SCH ×2 (05:57→20:17)
[2016-12-16] MEDS: Famotidine 20 MG/2 ML VIAL IVP SCH ×2 (05:57→17:56)
[2016-12-16 06:15] LABS: Basophils % 0.1 %; Eosinophils % 0.1 %; Hematocrit 28.7 % (35.3-44.9); Hemoglobin 9.2 g/dL (11.5-15.4); Immature Granulocytes % 0.6 % (0-4); Lymphocytes # 1.6 K/mcL (0.6-4.6); Lymphocytes % 14.3 %; Mean Corpuscular HGB Conc 32.1 g/dL (31.6-35.5); Mean Corpuscular Volume 93.5 fL (83.0-100.0); Mean Platelet Volume 9.1 fL (9.4-12.4); Monocytes % 0.3 %; Neutrophils # 9.3 K/mcL (1.6-8.9); Platelet Count 284 K/mcL (140-400); Red Blood Count 3.07 M/mcL (3.82-4.97); Red Cell Distribution Width 13.7 % (11.5-14.5); Segmented Neutrophils % 84.6 %
[2016-12-16 06:19] LABS: BUN/Creatinine Ratio 21 (6-26); Blood Urea Nitrogen 12 mg/dL (7-20); Calcium 8.5 mg/dL (8.6-10.8); Carbon Dioxide 29 mEq/L (19-29); Chloride 104 mEq/L (98-109); Glucose 100 mg/dL (70-99); Osmolality,Calculated 292 (280-300); Potassium 3.7 mEq/L (3.5-4.5); Sodium 141 mEq/L (136-145); eGFR For African Americans > 60 (> 60); eGFR For Non-African Americans > 60 (> 60)
[2016-12-16] MEDS: Budesonide/Formoterol 160/4.5 MDI IH SCH ×2 (08:27→19:58)
[2016-12-16] MEDS ORDERED: Ibuprofen 600 MG TABLET PO PRN (08:53)
[2016-12-16 09:32] LABS: % Iron Saturation 23 % (15-50); Iron 50 mcg/dL (50-170); Transferrin 158 mg/dL (180-382)
[2016-12-16] MEDS ORDERED: *HR* Morphine Sulfate SR (12 HR) 15 MG TABLET.ER PO SCH ×2 (10:03→18:00)
--- NOTE | 2016-12-16 10:08 | Internal Med Progress Note ---
Date of Encounter: 12/16/16 Time of Encounter: 08:30 - Assessment and plan (1) Chest pain Current Visit: Yes Status: Acute Assessment and plan: Pt with R lateral rib pain, worse with inspiration and movement. Right rib xray ordered and pending. Pt with 10/10 pain with movement. T8 and T12 compression fractures noted on MRI, abnormality on T11. Compression fx could be cause of pts pain. Right rib xray negative for acute fracture, but there is a healed right 7th rib fx. Right lateral ribs blacking wheel tender to palpation, pt has lidoderm patch in place. Continue with lidoderm patch Medication added: MS Contin 15mg bid and Ibuprofen 600mg po TID. Palliative consult completed Pain management consult Chest CTA 12/14/16 18:08 IMPRESSION: No evidence of acute pulmonary embolism. Mediastinal adenopathy and right hilar mass as detailed above. These appear to be slightly decreased in size from prior examination. New irregular nodular opacity in the right apex adjacent to a cystic space. This could represent acute airspace disease or possibly a metastatic lesion. Follow-up is recommended. The right lower lobe airway is now patent with significantly improved aeration in the right lower lobe. Compression fractures at T8 and T12 which are new from the prior examination performed 11/10/2016. Further evaluation with MRI is recommended. D/ / 12/14/2016 19:46:34 Alexander Damon MD / bcarter Interpreting Provider: Alexander Damon MD Ribs X-Ray 12/15/16 00:56 IMPRESSION: No acute osseous abnormality of the right ribs. Healed right 7th rib fracture. D/ / Jah Hare MD / Jah Hare MD Interpreting Provider: Jah Hare MD Thoracic Spine MRI 12/15/16 09:01 IMPRESSION: Subacute benign fractures of T8 and T12. Enhancement within the T11 spinous process. This could represent a metastasis but is not associated with any fracture. D/ / 12/15/2016 11:43:41 Jose Alfredo Aguiar MD / harry Interpreting Provider: Jose Alfredo Aguiar MD Incentive spirometry Plan as above. Qualifiers: Chest pain type: chest pain on breathing Qualified Code(s): R07.1 - Chest pain on breathing; R07.81 - Pleurodynia (2) Small cell 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 Current Visit: No Status: Acute Assessment and plan: Per patient history. She is undergoing chemotherapy. Follow up outpatient after discharge. (3) COPD exacerbation Current Visit: Yes Status: Acute Assessment and plan: Possible mild acute exacerbation. Lungs with wheezing and rhonchi throughout. Patient denies any change in her baseline need for oxygen. O2 sats are in the mid to high 90s on 2 L. Patient with moist sounding sometimes productive cough. Chest CTA without evidence for PE, mediastinal adenopathy and right hilar mass slightly decreased from prior exam, new irregular nodular opacity noted, possibly metastatic. Follow-up is recommended. Right lower lobe now patent significantly improved aeration. Pt reports that she is at her baseline for breathing and the only time that it gets bad is when her back pain gets really high, not receiving adequate pain relief today. DuoNeb nebs every 4 hours scheduled Symbicort inhaler 2 puffs twice daily Robitussin every 6 hours as needed Prednisone 40 mg daily Albuterol nebulizer treatments every 2 hours as needed Incentive spirometry (4) DVT prophylaxis Current Visit: No Status: Acute Assessment and plan: Heparin SQ. Pt is ambulatory in room. - Time Spent With Patient less than 15 minutes - Subjective Interval history: Patient was seen and assessed at 8:30 AM. She is awake and alert and in good spirits. She reports feeling worse today and intractable pain. Patient is concerned about going home today due to the very good possibility of increasing pain at home, as well as difficulty breathing. Yesterday, pt stated that she wanted to go home today because she was sick of being in the hospital and stated that she would see ortho in the office. This am, pt states that she is in severe pain and can't go home. We agreed on a palliative consult and a change in medication. Pt is agreeable to staying for treatment. - Constitutional Vitals: Temp Pulse Resp BP Pulse Ox 97.6 F 99 18 144/69 99 12/16/16 08:31 12/16/16 08:31 12/16/16 08:31 12/16/16 08:31 12/16/16 08:31 General appearance: Present: cooperative, A&O X 3, pleasant, severe distress, answers questions appropriately - Head Head exam: Present: atraumatic, normal inspection, normocephalic - Eye Eye exam: Present: normal appearance, conjuntiva pink, sclera anicteric - Neck Neck exam general surgery: Present: supple, trachea midline. Absent: lymphadenopathy - Respiratory Respiratory exam: Present: chest wall tenderness, decreased breath sounds, CTAB , respiratory distress, rhonchi, wheezes. Absent: accessory muscle use, rales - Cardiovascular Cardiovascular exam: Present: RRR, +S1, +S2. Absent: diastolic murmur, gallop, rubs, systolic murmur - GI/Abdominal GI/Abdominal exam: Present: normal bowel sounds, soft, no peritoneal signs. Absent: distended, hepatomegaly, tenderness - Extremities Exam Extremities exam: Present: normal capillary refill, normal inspection, warm, radial pulses palpable and symmetrical. Absent: calf tenderness, cyanotic, pedal edema - Neurological Exam Neurological exam: Present: alert, oriented X3, no focal deficits. Absent: facial droop, speech deficit - Skin Skin exam: Present: dry, intact, normal color, warm. Absent: rash Internal Medicine: Result - Labs CBC & Chem 7: 12/16/16 06:00 12/16/16 06:00 Labs: Short CBC 12/16/16 Range/Units 06:00 WBC 11.0 D (4.3-11.1) K/mcL Hgb 9.2 L (11.5-15.4) g/dL Hct 28.7 L (35.3-44.9) % Plt Count 284 (140-400) K/mcL Neutrophils # 9.3 H (1.6-8.9) K/mcL BMP 12/16/16 06:00 Sodium 141 Potassium 3.7 Chloride 104 Carbon Dioxide 29 BUN 12 Creatinine 0.58 Glucose 100 H Calcium 8.5 L - ABG Interpretation ABG results: PT/INR, D-dimer PT 11.4 Seconds (9.4-12.1) 12/14/16 18:22 - Impressions Impressions Ribs X-Ray 12/15/16 00:56 IMPRESSION: No acute osseous abnormality of the right ribs. Healed right 7th rib fracture. D/ / Jah Hare MD / Jah Hare MD Interpreting Provider: Jah Hare MD Thoracic Spine MRI 12/15/16 09:01 IMPRESSION: Subacute benign fractures of T8 and T12. Enhancement within the T11 spinous process. This could represent a metastasis but is not associated with any fracture. D/ / 12/15/2016 11:43:41 Jose Alfredo Aguiar MD / harry Interpreting Provider: Jose Alfredo Aguiar MD Consult Discharge Plan - Plan Referrals: Lilibeth Templeton, [employer] [Primary Care Provider] -
[2016-12-16] MEDS: predniSONE 20 MG TABLET PO SCH (10:20)
[2016-12-16] MEDS: *HR* LORazepam 0.5 MG TABLET PO SCH ×2 (10:20→19:58)
[2016-12-16 10:23] LABS: Folate 7.2 ng/mL (7.0-31.4)
[2016-12-16] MEDS: Nicotine 14 MG PATCH.TD24 TD SCH (10:25)
--- NOTE | 2016-12-16 13:03 | Palliative - Consult Note ---
Date of Encounter: 12/16/16 Time of Encounter: 12:00 - Assessment and Plan (1) Compression fracture of body of thoracic vertebra Current Visit: Yes Status: Acute Assessment and plan: Patient MRI revealed subacute T8 and T12 fracture and T11 abnormality. Patient reports pain to sight that is constant and stabbing. Intensity 10/10. Patient is opioid naive. Intractable pain. Pending consult to Pain Management (2) Pain Current Visit: Yes Status: Acute Assessment and plan: Thoracic fractures at T8 and T12. Patient OARRS reports reviewed and patient not on prescribed opioids at present. Patient is naive and will begin Morphine LACROSSE COACH at continuous rate of 1mg/hr and add demand dose of 1 mg for BTP. Educated patient on pain plan and she agrees. Carlos at bedside is aware of plan. Explained that LACROSSE COACH can be adjusted for response. (3) Goals of care, counseling/discussion Current Visit: Yes Status: Acute Assessment and plan: Patient is FULL Code. Patient agrees to CPR and intubation. Hasn't completed advanced directives but is interested. Once she is more comfortable will revisit. Goals are for comfort and assess any options for additional interventions for compression fractures. Patient with O2 dependent COPD which limits surgical interventions. Case discussed with Nasir Bond CNP. Patient in process of chemo for small cell lung Ca and desires to continue treatment. (4) Constipation Current Visit: Yes Status: Acute Assessment and plan: Add Miralax to POC and follow. Qualifiers: Constipation type: unspecified constipation type Qualified Code(s): K59.00 - Constipation, unspecified (5) Lung cancer Current Visit: Yes Status: Acute Qualifiers: Qualified Code(s): C34.90 - Malignant neoplasm of unspecified part of unspecified bronchus or lung (6) COPD (chronic obstructive pulmonary disease) Current Visit: No Status: Acute Qualifiers: COPD type: COPD with acute exacerbation Qualified Code(s): J44.1 - Chronic obstructive pulmonary disease with (acute) exacerbation Palliative-CN HPI - Data of Consult Patient: new to practice Consult date: 12/16/16 Requesting Physician: Jacki Schwab CNP Primary Care Provider: Lilibeth Templeton CNP - Consult Narrative Palliative Care/Comfort Measures: Palliative care Reason for consult: Pain management History of present illness: Ms. Keenan is a 61 year old female admitted from home with c/o chest pain. Initial ER work-up reveals negative troponins and negative for PE. Patient recently diagnosed with small cell lung cancer and has completed 2 chemotherapy sessions with the 3rd one scheduled in 3 weeks. History of COPD with home O2 at all times at 2L. Patient is alert and oriented at the time of consult. Carlos at bedside. Patient reports having pain 10/10 to anterior and posterior thoracic area. MRI revealed new subacute fracture T8 and T12 with noted abnormality at T11. Patient reports constant stabbing pain that worsens with coughing. This palliative care consult is for pain and symptom management. CC: Jacki Schwab, OMA Past Med Surg Social Fam HX - Past Medical History Source: patient, old records reviewed, obtained from family, nursing notes reviewed Medical history: cancer, COPD, hypertension Psychiatric history: anxiety, depression - Past Surgical History Surgical History: hysterectomy - Social History Smoking Status: Former smoker Smokeless Tobacco Status: No Alcohol use: none Drug use: none - Family History Sister Living Status: Still Living Hx Family Cardiac Disorders: Yes (HTN) Hx Family Cancer: Yes (cervical) Mother Living Status: Father Living Status: Hx Family Cardiac Disorders: Yes Medications and Allergies DULoxetine [Cymbalta] 30 mg PO HS 02/15/16 [History] Trazodone HCl 200 mg PO HS 02/15/16 [History] Melatonin/Pyridoxine HCl (B6) [Melatonin 3 mg Tablet] 3 mg PO HS 05/02/16 [ History] Albuterol Neb [Proventil Neb] 2.5 mg IH Q6H PRN 10/14/16 [History] Albuterol Sulfate [Albuterol Inhaler] 2 puff IH Q6H PRN 10/14/16 [History] Budesonide/Formoterol 160/4.5 [Symbicort 160/4.5] 2 puff IH BIDR 10/14/16 [ History] Oxygen 2 l .ROUTE AD 10/14/16 [History] Tiotropium [Spiriva] 1 puff IH DAILY 10/14/16 [History] HydrOXYzine 25 mg PO HS #30 tablet 11/20/16 [Rx] Ondansetron [Zofran ODT] 8 mg SL Q4HR PRN #20 tab.rapdis 11/20/16 [Rx] Dexamethasone [Decadron] 4 mg PO BID #30 tab 11/27/16 [Rx] Magic Mouthwash [Magic Mouthwash BLM] 10 ml PO QID PRN #240 ml 11/27/16 [Rx] LORazepam [Ativan] 0.5 mg PO BID #60 tablet 11/29/16 [Rx] Ascorbate Calcium [Vitamin C] 500 mg PO DAILY 12/14/16 [History] predniSONE [PredniSONE] See Taper PO DAILY 12/14/16 [History] 3 Allergy/AdvReac Type Severity Reaction Status Date / Time No Known Allergies Allergy Verified 12/14/16 17:49 All systems: reviewed and no additional remarkable complaints except as stated ( back and chest pain, and constipation) - Constitutional Constitutional ROS PAL: decreased appetite - EENT Eyes: requires corrective lenses - Cardiovascular Cardiovascular ROS: chest pain - Respiratory Respiratory: cough (loose, nonproductive) - Gastrointestinal Gastrointestinal: constipation - Musculoskeletal Musculoskeletal ROS IM: back pain Palliative Care-Exam - Constitutional Vitals: Temp Pulse Resp BP Pulse Ox 98.4 F 105 18 128/77 94 12/16/16 12:48 12/16/16 12:48 12/16/16 12:48 12/16/16 12:48 12/16/16 12:48 General appearance: Present: cooperative, severe distress Exam: c/o severe pain to back and chest. Constant stabbing and rates 10/10. - Head Head Exam: Present: atraumatic, normal inspection, normocephalic - Eye Eye exam: Present: PERRL - ENT ENT exam: Present: mucous membranes moist - Neck Neck exam: Present: full ROM - Respiratory Respiratory exam: Present: decreased breath sounds, prolonged expiratory phase - Expanded Respiratory Exam Location: decreased breath sounds: Left, Right, Lower - Cardiovascular Cardiovascular exam: Present: +S1, +S2 - Expanded Cardiovascular Exam Peripheral pulses: 1+: Femoral (L) PM, Femoral (R) PM, Posterior Tibialis (L), Posterior Tibialis (R), 2+: Carotid (L) PM, Carotid (R) PM, Radial (L), Radial ( R), Dorsalis Pedis (L) PM, Dorsalis Pedis (R) PM - GI/Abdominal Exam GI/Abdominal exam: Present: normal bowel sounds, soft - Additional comments: per bathroom - Expanded Upper Extremities Exam Shoulder exam: Present: full ROM Upper Arm exam: Present: full ROM Elbow exam: Present: full ROM Hand wrist exam: Present: full ROM Vascular: Present: normal capillary refill - Expanded Lower Extremities Exam Hip exam: Present: full ROM Upper Leg exam: Present: full ROM Knee exam: Present: full ROM Lower Leg exam: Present: full ROM - Back Exam Back exam: Present: paraspinal tenderness, vertebral tenderness (T8, T12) - Neurological Exam Neurological exam: Present: alert, oriented X3 - Expanded Neurological Exam Coma Scale Eye Opening: Spontaneous Coma Scale Motor Response: Obeys Commands Coma Scale Verbal Response: Oriented Coma Scale Total: 15 - Psychiatric Psychiatric exam: Present: normal affect - Skin Skin exam: Present: pallor, warm Internal Medicine - CN: Reslt - Labs CBC & Chem 7: 12/16/16 06:00 12/16/16 06:00 Labs: Short CBC 12/16/16 Range/Units 06:00 WBC 11.0 D (4.3-11.1) K/mcL Hgb 9.2 L (11.5-15.4) g/dL Hct 28.7 L (35.3-44.9) % Plt Count 284 (140-400) K/mcL Neutrophils # 9.3 H (1.6-8.9) K/mcL BMP 12/16/16 06:00 Sodium 141 Potassium 3.7 Chloride 104 Carbon Dioxide 29 BUN 12 Creatinine 0.58 Glucose 100 H Calcium 8.5 L - ABG Interpretation ABG results: PT/INR, D-dimer PT 11.4 Seconds (9.4-12.1) 12/14/16 18:22 - Impressions Impressions Thoracic Spine MRI 12/15/16 09:01 IMPRESSION: Subacute benign fractures of T8 and T12. Enhancement within the T11 spinous process. This could represent a metastasis but is not associated with any fracture. D/ / 12/15/2016 11:43:41 Jose Alfredo Aguiar MD / harry Interpreting Provider: Jose Alfredo Aguiar MD Consult Discharge Plan - Plan Referrals: Lilibeth Templeton [facility] [Primary Care Provider] - Palliative Quality Palliative Quality: Screen for Code Status: Yes, Screen for Goals of Care: Yes, Screen for Pain: Yes, If Pain Regimen Started, Initiate Bowel Regimen: Yes, Screen for Nausea/Vomitting: Yes
[2016-12-16] MEDS ORDERED: 0.9 % Sodium Chloride 1,000 ML ONE (14:41)
[2016-12-16] MEDS: *HR* Morphine 30 MG/ 30 ML PCA IVC PRN (14:59)
[2016-12-16] MEDS: Benzonatate 100 MG CAPSULE PO SCH ×2 (15:00→19:58)
[2016-12-16] MEDS: Ibuprofen 600 MG TABLET PO SCH (17:58)
[2016-12-16] MEDS: traZODone 50 MG TABLET PO SCH (19:58)
[2016-12-16] MEDS: Melatonin 3 MG TABLET PO SCH (19:58)
[2016-12-17] MEDS: Ibuprofen 600 MG TABLET PO SCH ×4 (01:53→18:18)
[2016-12-17] MEDS: Ipratropium/Albuterol Neb 3 ML IH SCH ×5 (04:15→20:16)
[2016-12-17] MEDS: *HR* Heparin 5,000 UNIT/ML VIAL SQ SCH ×2 (06:10→18:19)
[2016-12-17] MEDS: Famotidine 20 MG/2 ML VIAL IVP SCH ×2 (06:10→18:19)
--- NOTE | 2016-12-17 09:39 | Pain Management Consultation ---
Date of Encounter: 12/17/16 Time of Encounter: 09:32 Assessment and Plan (1) Burst fracture of thoracic vertebra Current Visit: Yes Status: Acute The patient seems to have developed a relatively acute burst fracture at T8. The MRI images were reviewed with the patient. I talked to her about her options for pain control, explaining that she has both conservative as well as interventional options. Because her examination is highly consistent for pain emanating from the T8 vertebral body, my recommendation is to have orthopedic spine surgery evaluate the patient. Her fracture is uniquely characterized as a "burst fracture" which makes kyphoplasty intervention more risky and in many cases contraindicated. If the T8 fracture or a simpler compression fracture, kyphoplasty under mild sedation would be an option. Given the situation, any surgical interventions would be extensive and probably not acceptable given her overall medical situation. However, I think that she would benefit from a discussion with orthopedic spine surgery. I plan to follow up with the patient again to understand how she would like to approach pain control. I will be available to assist if needed with finding an analgesic medical treatment plan that works for her. Agree with EXHIBIT BUILDER for now. The assessment and plan as outlined above was discussed with the patient and/or family members who expressed understanding and agreement. All questions were answered. Qualifiers: Encounter type: initial encounter Fracture type: closed Qualified Code(s) : S22.001A - Stable burst fracture of unspecified thoracic vertebra, initial encounter for closed fracture History of Present Illness Chief complaint: back pain HPI: Ms. Keenan is a 61 year old female suffering with 10/10 pain in the middle back that has been present or the past 3 days. The patient says that since last Saturday, she has been having stabbing pain in the middle of her back. She points to an area just below the lower aspect of both shoulder blades directly in the middle of her back along her spine as the most painful spot. She describes the pain as a stabbing sensation. She denies radiation of pain around her chest wall to the front of her body. There is no pain traveling into her legs. She denies falls as a cause of the pain. She does not routinely have pain in this area or low back pain in general. She understands that she has been diagnosed with lung cancer and is currently enrolled in chemotherapy. She has a long history of smoking although she recently stopped. Past Med Surg Social Fam HX - Past Medical History Medical history: cancer, COPD, hypertension Psychiatric history: anxiety, depression - Past Surgical History Surgical History: hysterectomy - Social History Smoking Status: Former smoker Smokeless Tobacco Status: No Alcohol use: none Drug use: none - Family History Sister Living Status: Still Living Hx Family Cardiac Disorders: Yes (HTN) Hx Family Cancer: Yes (cervical) Mother Living Status: Father Living Status: Hx Family Cardiac Disorders: Yes Medications and Allergies DULoxetine [Cymbalta] 30 mg PO HS 02/15/16 [History] Trazodone HCl 200 mg PO HS 02/15/16 [History] Melatonin/Pyridoxine HCl (B6) [Melatonin 3 mg Tablet] 3 mg PO HS 05/02/16 [ History] Albuterol Neb [Proventil Neb] 2.5 mg IH Q6H PRN 10/14/16 [History] Albuterol Sulfate [Albuterol Inhaler] 2 puff IH Q6H PRN 10/14/16 [History] Budesonide/Formoterol 160/4.5 [Symbicort 160/4.5] 2 puff IH BIDR 10/14/16 [ History] Oxygen 2 l .ROUTE AD 10/14/16 [History] Tiotropium [Spiriva] 1 puff IH DAILY 10/14/16 [History] HydrOXYzine 25 mg PO HS #30 tablet 11/20/16 [Rx] Ondansetron [Zofran ODT] 8 mg SL Q4HR PRN #20 tab.rapdis 11/20/16 [Rx] Dexamethasone [Decadron] 4 mg PO BID #30 tab 11/27/16 [Rx] Magic Mouthwash [Magic Mouthwash BLM] 10 ml PO QID PRN #240 ml 11/27/16 [Rx] LORazepam [Ativan] 0.5 mg PO BID #60 tablet 11/29/16 [Rx] Ascorbate Calcium [Vitamin C] 500 mg PO DAILY 12/14/16 [History] predniSONE [PredniSONE] See Taper PO DAILY 12/14/16 [History] 3 Allergy/AdvReac Type Severity Reaction Status Date / Time No Known Allergies Allergy Verified 12/14/16 17:49 Review of Systems - Constitutional Constitutional ROS IM: no photophobia, no phonophobia, no daytime sleepiness, no fever(s), no stops breathing during sleep - EENT Nose, mouth and throat: no headache(s), no neck pain, no neck trauma - Cardiovascular Cardiovascular ROS: no chest pain, no leg edema, no lightheadedness - Respiratory Respiratory: no pain on inspiration, no pain with cough - Gastrointestinal Gastrointestinal: no abdominal pain, no constipation, no diarrhea, no heartburn - Genitourinary Genitourinary ROS: no difficulty urinating, no flank pain, no urinary hesitancy - Musculoskeletal Musculoskeletal ROS: no muscle weakness, no numbness, no radiating pain into limb, no tingling - Integumentary Integumentary: no erythema, no lesions, no swelling - Neurological Neurological ROS: no abnormal gait, no behavioral changes, no focal weakness, no radicular pain - Psychiatric Psychiatric general: no anxiety, no confusion, no depression - Hematologic/Lymphatic Hematologic/Lymphatic pediatric: no easy bleeding, no easy bruising Physical Exam Initial Vital Signs Temp Pulse Resp BP Pulse Ox 98.4 F 104 28 97/83 93 12/14/16 17:51 12/14/16 17:51 12/14/16 17:51 12/14/16 17:51 12/14/16 17:51 - Additional Findings EYES:: pupils equal and round, no myosis. SKIN:: areas of echymoses on forearms CARDIOVASCULAR:: regular rate and rhythm PULMONARY:: Quiet, normal respiratory pattern. Nasal oxygen in place. GASTROINTESTINAL:: active bowel sounds. MUSCULOSKELETAL GAIT:: not antalgic. INSPECTION:: no surgical scarring in thoracic spine PALPATION:: Unable to identify spinal levels by palpation of the inferior border of the scapula. The T8 spinous process is exquisitely tender and there is no tenderness moving cephalad or inferior from this spot. ROM:: Active flexion and extension are reduced in the lumbar area. Active Rotation is reduced in the lumbar area. STRENGTH:: RIGHT hip flexors: 5/5 :: LEFT hip flexors: 5/5 RIGHT hip adduction 5/5 :: LEFT hip adduction 5/5 RIGHT hip abduction 5/5 :: LEFT hip abduction 5/5 RIGHT knee extension 5/5 :: LEFT knee extension 5/5 RIGHT knee flexion 5/5 :: LEFT knee flexion 5/5 RIGHT ankle dorsiflexion 5/5 :: LEFT ankle dorsiflexion 5/5 RIGHT ankle plantarflexion 5/5 :: LEFT ankle plantarflexion 5/5 NEUROLOGIC SENSATION:: hypesthesia is not noted in thoracic dermatomes. SIGNS OF NEUROVASCULAR COMPRESSION Atrophy:: not present in UE or LE musculature Fasciculation:: not present in UE or LE musculature PSYCHIATRIC:: ORIENTATION:: awake and alert. INSIGHT:: good awareness of illness. AFFECT:: pleasant. Radiology Images Viewed By Me:: 12/15/2016 MRI study of the thoracic spine shows a T8 burst fracture. There is also a mild T12 inferior endplate fracture. The spinous process of T11 is enhancing on the T2-weighted images. I have reviewed and agree with information documented in the scribed documentation, ROS, patient medications, allergies, medical history, surgical history, social history, and family history. Results - Labs 12/16/16 06:00 12/16/16 06:00 Abnormal lab results RBC 3.07 M/mcL (3.82-4.97) L 12/16/16 06:00 Hgb 9.2 g/dL (11.5-15.4) L 12/16/16 06:00 Hct 28.7 % (35.3-44.9) L 12/16/16 06:00 MPV 9.1 fL (9.4-12.4) L 12/16/16 06:00 Neutrophils # 9.3 K/mcL (1.6-8.9) H 12/16/16 06:00 APTT 22.8 Seconds (26.0-36.0) L 12/14/16 18:22 Glucose 100 mg/dL (70-99) H 12/16/16 06:00 Calcium 8.5 mg/dL (8.6-10.8) L 12/16/16 06:00 Transferrin 158 mg/dL (180-382) L 12/16/16 09:03 Vitamin B12 818 pg/mL (213-816) H 12/16/16 09:03 All other labs normal. Consult Discharge Plan - Plan Referrals: Lilibeth Templeton, [employer] [facility] [Primary Care Provider] -
[2016-12-17] MEDS: *HR* LORazepam 0.5 MG TABLET PO SCH ×2 (09:40→20:30)
[2016-12-17] MEDS: Nicotine 14 MG PATCH.TD24 TD SCH (09:40)
[2016-12-17] MEDS: predniSONE 20 MG TABLET PO SCH (09:40)
[2016-12-17] MEDS: Benzonatate 100 MG CAPSULE PO SCH ×3 (09:40→20:30)
[2016-12-17] MEDS: *HR* Morphine 30 MG/ 30 ML PCA IVC PRN (10:32)
[2016-12-17] MEDS: Budesonide/Formoterol 160/4.5 MDI IH SCH ×2 (10:53→20:16)
--- NOTE | 2016-12-17 11:45 | Palliative Progress Note ---
Date of Encounter: 12/17/16 Time of Encounter: 09:10 - Assessment and plan (1) Back pain Current Visit: Yes Status: Acute Assessment and plan: Very comfortable at this point with Morphine OVER SHORT AND DAMAGE CLERK. Will continue until evaluation from ortho is complete in case of any procedure. If not, will transition to po pain medication in am. Daughter expresses much anxiety with pt becoming "addicted" to narcotics, - we discussed at length. (2) Constipation Current Visit: Yes Status: Acute Assessment and plan: Will add Senokot 2 tabs BID. She is not fond of Miralax. MOnitor Educated her that she will need to be on bowel regimen with opioids Qualifiers: Constipation type: unspecified constipation type Qualified Code(s): K59.00 - Constipation, unspecified (3) Goals of care, counseling/discussion Current Visit: Yes Status: Acute Assessment and plan: Awaiting further consultation r/t compression fractures. Patient desires full code. DEsires to continue chemotherapy when able. - Time Spent With Patient Total time spent is greater than 50% in coordination of care (as documented) at patient's floor/unit and/or counseling patient: 25 - 35 minutes - Subjective Interval history: Patient up on side of bed. Family at bedside. States Morphine OVER SHORT AND DAMAGE CLERK has been very effective abril controlling pain ,and she rested well last night. Stated Dr. Hannah was already in this am, and will be discussing with ortho surgeon. Denies any other complaint except for constipation. - Constitutional Vitals: Abnormal lab results RBC 3.07 M/mcL (3.82-4.97) L 12/16/16 06:00 Hgb 9.2 g/dL (11.5-15.4) L 12/16/16 06:00 Hct 28.7 % (35.3-44.9) L 12/16/16 06:00 MPV 9.1 fL (9.4-12.4) L 12/16/16 06:00 Neutrophils # 9.3 K/mcL (1.6-8.9) H 12/16/16 06:00 APTT 22.8 Seconds (26.0-36.0) L 12/14/16 18:22 Glucose 100 mg/dL (70-99) H 12/16/16 06:00 Calcium 8.5 mg/dL (8.6-10.8) L 12/16/16 06:00 Transferrin 158 mg/dL (180-382) L 12/16/16 09:03 Vitamin B12 818 pg/mL (213-816) H 12/16/16 09:03 General appearance: Present: no acute distress - Respiratory Respiratory exam: Present: decreased breath sounds, CTAB - Cardiovascular Cardiovascular exam: Present: +S1, +S2 - GI/Abdominal GI/Abdominal exam: Present: normal bowel sounds, soft - Extremities Exam Extremities exam: Present: normal capillary refill, normal inspection - Neurological Exam Neurological exam: Present: alert, oriented X3, strengths equal and symetr throughout - Skin Skin exam: Present: dry, warm Palliative Quality Palliative Quality: Screen for Code Status: Yes, Screen for Goals of Care: Yes, Screen for Pain: Yes, If Pain Regimen Started, Initiate Bowel Regimen: Yes, Screen for Nausea/Vomitting: Yes Code Status: 12/16/16 13:20 DNR [Resuscitation Status: Active] [RES] Routine Comment: Resuscitation Status: Full Code - Labs CBC & Chem 7: 12/16/16 06:00 12/16/16 06:00 - ABG Interpretation ABG results: PT/INR, D-dimer PT 11.4 Seconds (9.4-12.1) 12/14/16 18:22 Consult Discharge Plan - Plan Referrals: Lilibeth Templeton CNP [Primary Care Provider] -
[2016-12-17] MEDS: Sennosides/Docusate Sodium TABLET PO SCH ×2 (13:43→20:29)
[2016-12-17 15:12] LABS: CK-MB (CK isoenzymes) 0 % (0-4); CK-MM (CK-isoenzymes) 100 % (96-100)
--- NOTE | 2016-12-17 16:31 | Internal Med Progress Note ---
Date of Encounter: 12/17/16 Time of Encounter: 08:30 - Assessment and plan (1) Chest pain Current Visit: Yes Status: Acute Assessment and plan: Pt with R lateral rib pain, worse with inspiration and movement. Right rib xray ordered and pending. Pt with 10/10 pain with movement. T8 and T12 compression fractures noted on MRI, abnormality on T11. Compression fx could be cause of pts pain. Right rib xray negative for acute fracture, but there is a healed right 7th rib fx. Right lateral ribs paper machine back tender to palpation, pt has lidoderm patch in place. Continue with lidoderm patch Medication added: Morphine WASH DRILLER Palliative consult completed, I appreciate their consultation and recommendations Pain management on board, will discuss with ortho. Chest CTA 12/14/16 18:08 IMPRESSION: No evidence of acute pulmonary embolism. Mediastinal adenopathy and right hilar mass as detailed above. These appear to be slightly decreased in size from prior examination. New irregular nodular opacity in the right apex adjacent to a cystic space. This could represent acute airspace disease or possibly a metastatic lesion. Follow-up is recommended. The right lower lobe airway is now patent with significantly improved aeration in the right lower lobe. Compression fractures at T8 and T12 which are new from the prior examination performed 11/10/2016. Further evaluation with MRI is recommended. D/ / 12/14/2016 19:46:34 Alexander Damon MD / [employer] Interpreting Provider: Alexander Damon MD Ribs X-Ray 12/15/16 00:56 IMPRESSION: No acute osseous abnormality of the right ribs. Healed right 7th rib fracture. D/ / Jah Hare MD / Jah Hare MD Interpreting Provider: Jah Hare MD Thoracic Spine MRI 12/15/16 09:01 IMPRESSION: Subacute benign fractures of T8 and T12. Enhancement within the T11 spinous process. This could represent a metastasis but is not associated with any fracture. D/ / 12/15/2016 11:43:41 Jose Alfredo Aguiar MD / [facility] Interpreting Provider: Jose Alfredo Aguiar MD Incentive spirometry Plan as above. Qualifiers: Chest pain type: chest pain on breathing Qualified Code(s): R07.1 - Chest pain on breathing; R07.81 - Pleurodynia (2) Small cell 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 Current Visit: No Status: Acute Assessment and plan: Per patient history. She is undergoing chemotherapy. Follow up outpatient after discharge. CTA shows possible new metastatic lesion in right apex, pt will need to follow up with oncology for continued evaluation and monitoring. Chest CTA 12/14/16 18:08 IMPRESSION: No evidence of acute pulmonary embolism. Mediastinal adenopathy and right hilar mass as detailed above. These appear to be slightly decreased in size from prior examination. New irregular nodular opacity in the right apex adjacent to a cystic space. This could represent acute airspace disease or possibly a metastatic lesion. Follow-up is recommended. The right lower lobe airway is now patent with significantly improved aeration in the right lower lobe. Compression fractures at T8 and T12 which are new from the prior examination performed 11/10/2016. Further evaluation with MRI is recommended. D/ / 12/14/2016 19:46:34 Alexander Damon MD / [facility] Interpreting Provider: Alexander Damon MD (3) COPD exacerbation Current Visit: Yes Status: Acute Assessment and plan: Possible mild acute exacerbation. Lungs with wheezing and rhonchi throughout. Patient denies any change in her baseline need for oxygen. O2 sats are in the mid to high 90s on 2 L. Patient with moist sounding sometimes productive cough. she reports that cough has improved with Tessalon pearls. Chest CTA without evidence for PE, mediastinal adenopathy and right hilar mass slightly decreased from prior exam, new irregular nodular opacity noted, possibly metastatic. Follow-up is recommended. Right lower lobe now patent significantly improved aeration. Pt reports that she is at her baseline for breathing and the only time that it gets bad is when her back pain gets out of control. DuoNeb nebs every 4 hours scheduled Symbicort inhaler 2 puffs twice daily Tessalon Pearls for cough Prednisone 40 mg daily Albuterol nebulizer treatments every 2 hours as needed Incentive spirometry (4) Thoracic compression fracture Current Visit: Yes Status: Acute Assessment and plan: Pt with burst fracture to T8, irregularity to T11, compression fx to T12. Pt has WASH DRILLER pump for pain control, as well as po medication for BTP. Pt is being followed by pain management as well as ortho and palliative care. I appreciate the collaboration and recommendations from all. Plan as above. Qualifiers: Encounter type: initial encounter Fracture type: closed Qualified Code(s) : S22.000A - Wedge compression fracture of unspecified thoracic vertebra, initial encounter for closed fracture (5) DVT prophylaxis Current Visit: No Status: Acute Assessment and plan: Heparin SQ. Pt is ambulatory in room. - Time Spent With Patient less than 15 minutes - Subjective Interval history: Patient was seen and assessed at 8:30 AM. She is awake and alert and in good spirits. She reports improved pain, states that it is about 3/10. She is receiving adequate pain relief from WASH DRILLER. pt was seen by pain management, as well as palliative care today. She denies fuentes, abd pain,n/v/d, constipation, or dizziness. Further consultation is required with ortho to assess for options. Pt is aware and agreeable. - Constitutional Vitals: Temp Pulse Resp BP Pulse Ox 98.2 F 111 18 124/67 95 12/17/16 15:26 12/17/16 15:26 12/17/16 15:26 12/17/16 15:26 12/17/16 15:26 General appearance: Present: cooperative, mild distress, A&O X 3, pleasant, severe distress, answers questions appropriately - Head Head exam: Present: atraumatic, normal inspection, normocephalic - Eye Eye exam: Present: normal appearance, conjuntiva pink, sclera anicteric - Neck Neck exam general surgery: Present: normal inspection, supple, trachea midline. Absent: lymphadenopathy, tenderness - Respiratory Respiratory exam: Present: chest wall tenderness, CTAB. Absent: accessory muscle use, rales, rhonchi, wheezes - Cardiovascular Cardiovascular exam: Present: RRR, +S1, +S2. Absent: diastolic murmur, gallop, rubs, systolic murmur - GI/Abdominal GI/Abdominal exam: Present: normal bowel sounds, soft, no peritoneal signs. Absent: distended, tenderness - Extremities Exam Extremities exam: Present: warm, radial pulses palpable and symmetrical. Absent : calf tenderness, cyanotic, normal capillary refill, normal inspection, pedal edema, tenderness - Neurological Exam Neurological exam: Present: alert, oriented X3, no focal deficits. Absent: facial droop, speech deficit - Skin Skin exam: Present: dry, intact, normal color, warm. Absent: rash Internal Medicine: Result - Labs CBC & Chem 7: 12/16/16 06:00 12/16/16 06:00 - ABG Interpretation ABG results: PT/INR, D-dimer PT 11.4 Seconds (9.4-12.1) 12/14/16 18:22 Consult Discharge Plan - Plan Referrals: Lilibeth Templeton CNP [Primary Care Provider] -
[2016-12-17] MEDS: traZODone 50 MG TABLET PO SCH (20:30)
[2016-12-17] MEDS: Melatonin 3 MG TABLET PO SCH (20:30)
[2016-12-18] MEDS: Ibuprofen 600 MG TABLET PO SCH ×5 (00:05→23:10)
[2016-12-18] MEDS: Ipratropium/Albuterol Neb 3 ML IH SCH ×5 (00:49→15:08)
[2016-12-18] MEDS ORDERED: 0.9 % Sodium Chloride 1,000 ML ONE (00:51)
[2016-12-18] MEDS: *HR* Morphine 30 MG/ 30 ML PCA IVC PRN (01:10)
[2016-12-18] MEDS: *HR* Heparin 5,000 UNIT/ML VIAL SQ SCH ×2 (05:14→23:11)
[2016-12-18] MEDS: Famotidine 20 MG/2 ML VIAL IVP SCH ×2 (05:15→19:22)
[2016-12-18 07:16] LABS: CK Total (Ck Isoenzymes) 32 U/L (20-180); CK-BB (CK isoenzymes) 0 % (0-0)
[2016-12-18] MEDS: Budesonide/Formoterol 160/4.5 MDI IH SCH ×2 (07:54→19:41)
--- NOTE | 2016-12-18 08:07 | Pain Management Consultation ---
Date of Encounter: 12/18/16 Time of Encounter: 08:04 Assessment and Plan (1) Burst fracture of thoracic vertebra Current Visit: Yes Status: Acute Awaiting with [facility] surgery opinion on MRI and clinical presentation. I think that she is doing well enough on IV morphine and the dose is reasonable enough that we could convert this to an oral formulation and sent her home. She should follow up with myself or Dr. Wagner as an outpatient to make sure she is doing well. We can coordinate care with the [facility]. Recommend oral oxycodone for the next 2-4 weeks to allow for some healing of the fracture site. Do not anticipate long-term use of narcotic given her current situation. The assessment and plan as outlined above was discussed with the patient and/or family members who expressed understanding and agreement. All questions were answered. Qualifiers: Encounter type: subsequent encounter Fracture type: closed Fracture healing: with routine healing Qualified Code(s): S22.001D - Stable burst fracture of unspecified thoracic vertebra, subsequent encounter for fracture with routine healing History of Present Illness Chief complaint: back pain HPI: Ms. Keenan is a 61 year old female suffering with deep aching pain in her back. She states that through the night she was able to sleep entirely through the night without using her POWER GENERATING PLANT OPERATOR button. In the morning, the pain is at its most severe since she has not used the button throughout the night. She says that she is still able to sit up out of bed, walk in her room, use the bathroom , and even cough with little or very well-controlled pain thank to the POWER GENERATING PLANT OPERATOR. Nurse in the room during this examination states that the use of her working POWER GENERATING PLANT OPERATOR has been 40-50 mg approximately the past 24 hours. The pain is still located in her middle back between her shoulder blades. She describes it as sharp and stabbing. The pain is 10/10 in the morning but decreases throughout the day. The pain still does not radiate into her lower back or legs as well as into the front of her chest. Past Med Surg Social Fam HX - Past Medical History Medical history: cancer, COPD, hypertension Psychiatric history: anxiety, depression - Past Surgical History Surgical History: hysterectomy - Social History Smoking Status: Former smoker Smokeless Tobacco Status: No Alcohol use: none Drug use: none - Family History Sister Living Status: Still Living Hx Family Cardiac Disorders: Yes (HTN) Hx Family Cancer: Yes (cervical) Mother Living Status: Father Living Status: Hx Family Cardiac Disorders: Yes Medications and Allergies DULoxetine [Cymbalta] 30 mg PO HS 02/15/16 [History] Trazodone HCl 200 mg PO HS 02/15/16 [History] Melatonin/Pyridoxine HCl (B6) [Melatonin 3 mg Tablet] 3 mg PO HS 05/02/16 [ History] Albuterol Neb [Proventil Neb] 2.5 mg IH Q6H PRN 10/14/16 [History] Albuterol Sulfate [Albuterol Inhaler] 2 puff IH Q6H PRN 10/14/16 [History] Budesonide/Formoterol 160/4.5 [Symbicort 160/4.5] 2 puff IH BIDR 10/14/16 [ History] Oxygen 2 l .ROUTE AD 10/14/16 [History] Tiotropium [Spiriva] 1 puff IH DAILY 10/14/16 [History] HydrOXYzine 25 mg PO HS #30 tablet 11/20/16 [Rx] Ondansetron [Zofran ODT] 8 mg SL Q4HR PRN #20 tab.rapdis 11/20/16 [Rx] Dexamethasone [Decadron] 4 mg PO BID #30 tab 11/27/16 [Rx] Magic Mouthwash [Magic Mouthwash BLM] 10 ml PO QID PRN #240 ml 11/27/16 [Rx] LORazepam [Ativan] 0.5 mg PO BID #60 tablet 11/29/16 [Rx] Ascorbate Calcium [Vitamin C] 500 mg PO DAILY 12/14/16 [History] predniSONE [PredniSONE] See Taper PO DAILY 12/14/16 [History] 3 Allergy/AdvReac Type Severity Reaction Status Date / Time No Known Allergies Allergy Verified 12/14/16 17:49 Review of Systems - Constitutional Constitutional ROS IM: no photophobia, no phonophobia, no daytime sleepiness, no fever(s), no stops breathing during sleep - EENT Nose, mouth and throat: no headache(s), no neck pain, no neck trauma - Cardiovascular Cardiovascular ROS: no chest pain, no leg edema, no lightheadedness - Respiratory Respiratory: no pain on inspiration, no pain with cough - Gastrointestinal Gastrointestinal: no abdominal pain, no constipation, no diarrhea, no heartburn - Genitourinary Genitourinary ROS: no difficulty urinating, no flank pain, no urinary hesitancy - Musculoskeletal Musculoskeletal ROS: no muscle weakness, no numbness, no radiating pain into limb, no tingling - Integumentary Integumentary: no erythema, no lesions, no swelling - Neurological Neurological ROS: no abnormal gait, no behavioral changes, no focal weakness, no radicular pain - Psychiatric Psychiatric general: no anxiety, no confusion, no depression - Hematologic/Lymphatic Hematologic/Lymphatic pediatric: no easy bleeding, no easy bruising Physical Exam Initial Vital Signs Temp Pulse Resp BP Pulse Ox 98.4 F 104 28 97/83 93 12/14/16 17:51 12/14/16 17:51 12/14/16 17:51 12/14/16 17:51 12/14/16 17:51 - Additional Findings EYES:: pupils equal and round, no myosis. SKIN:: no areas of echymoses or petechiae MUSCULOSKELETAL INSPECTION:: no surgical scarring in storage and backup administrator in middle back at T8. STRENGTH:: RIGHT hip flexors: 5/5 :: LEFT hip flexors: 5/5 RIGHT hip adduction 5/5 :: LEFT hip adduction 5/5 RIGHT hip abduction 5/5 :: LEFT hip abduction 5/5 RIGHT knee extension 5/5 :: LEFT knee extension 5/5 RIGHT knee flexion 5/5 :: LEFT knee flexion 5/5 RIGHT ankle dorsiflexion 5/5 :: LEFT ankle dorsiflexion 5/5 RIGHT ankle plantarflexion 5/5 :: LEFT ankle plantarflexion 5/5 NEUROLOGIC SENSATION:: no hypesthesia in thoracic dermatomes. SIGNS OF NEUROVASCULAR COMPRESSION Clonus: none found bilateral with passive ROM at ankle joint Spasticity:: none Atrophy:: not present in UE or LE musculature Fasciculation:: not present in UE or LE musculature PSYCHIATRIC:: ORIENTATION:: awake and alert. INSIGHT:: good awareness of illness. AFFECT:: pleasant. Radiology Images Viewed By Me:: [default value] I have reviewed and agree with information documented in the scribed documentation, ROS, patient medications, allergies, medical history, surgical history, social history, and family history. Results - Labs 12/16/16 06:00 12/16/16 06:00 Abnormal lab results RBC 3.07 M/mcL (3.82-4.97) L 12/16/16 06:00 Hgb 9.2 g/dL (11.5-15.4) L 12/16/16 06:00 Hct 28.7 % (35.3-44.9) L 12/16/16 06:00 MPV 9.1 fL (9.4-12.4) L 12/16/16 06:00 Neutrophils # 9.3 K/mcL (1.6-8.9) H 12/16/16 06:00 APTT 22.8 Seconds (26.0-36.0) L 12/14/16 18:22 Glucose 100 mg/dL (70-99) H 12/16/16 06:00 Calcium 8.5 mg/dL (8.6-10.8) L 12/16/16 06:00 Transferrin 158 mg/dL (180-382) L 12/16/16 09:03 Vitamin B12 818 pg/mL (213-816) H 12/16/16 09:03 All other labs normal. Consult Discharge Plan - Plan Referrals: Belle Farrell MD [Partnered Physician] - 12/27/16 3:15 pm Lilibeth Templeton CNP [Primary Care Provider] - 12/31/16 3:45 pm
--- NOTE | 2016-12-18 08:58 | Palliative Progress Note ---
Date of Encounter: 12/18/16 Time of Encounter: 08:50 - Assessment and plan (1) Back pain Current Visit: Yes Status: Acute Assessment and plan: Desiring to go home. She has utilized 42.7mg IV morphine last 24 hours equivalent to 1281mg OME/day. Conversion to Oral oxycodone with 50% reduction for cross tolerance is 64mg Oxycodone/day. Will D/C [employer] and order Oxycodone 15mg every 4 hours PRN. Prescription written. D/W Hospitalist (2) Constipation Current Visit: Yes Status: Acute Assessment and plan: Continue Senokot. Qualifiers: Constipation type: unspecified constipation type Qualified Code(s): K59.00 - Constipation, unspecified (3) Goals of care, counseling/discussion Current Visit: Yes Status: Acute Assessment and plan: Anticipate d/c home today. DPOA was completed yesterday. Social service setting up home health and walker for pt to utilize at home. - Time Spent With Patient Total time spent is greater than 50% in coordination of care (as documented) at patient's floor/unit and/or counseling patient: 25 - 35 minutes - Subjective Interval history: Patient up on side of bed. States Morphine [employer] has been very effective abril controlling pain ,and she rested well last night. Hoping for ortho consult this am, and desiring to go home. - Constitutional Vitals: Abnormal lab results RBC 3.07 M/mcL (3.82-4.97) L 12/16/16 06:00 Hgb 9.2 g/dL (11.5-15.4) L 12/16/16 06:00 Hct 28.7 % (35.3-44.9) L 12/16/16 06:00 MPV 9.1 fL (9.4-12.4) L 12/16/16 06:00 Neutrophils # 9.3 K/mcL (1.6-8.9) H 12/16/16 06:00 APTT 22.8 Seconds (26.0-36.0) L 12/14/16 18:22 Glucose 100 mg/dL (70-99) H 12/16/16 06:00 Calcium 8.5 mg/dL (8.6-10.8) L 12/16/16 06:00 Transferrin 158 mg/dL (180-382) L 12/16/16 09:03 Vitamin B12 818 pg/mL (213-816) H 12/16/16 09:03 General appearance: Present: no acute distress - Respiratory Respiratory exam: Present: decreased breath sounds, CTAB - Cardiovascular Cardiovascular exam: Present: +S1, +S2 - GI/Abdominal GI/Abdominal exam: Present: normal bowel sounds, soft - Extremities Exam Extremities exam: Present: normal capillary refill, normal inspection - Neurological Exam Neurological exam: Present: alert, oriented X3, strengths equal and symetr throughout - Skin Skin exam: Present: dry, warm Palliative Quality Palliative Quality: Screen for Code Status: Yes, Screen for Goals of Care: Yes, Screen for Pain: Yes, If Pain Regimen Started, Initiate Bowel Regimen: Yes, Screen for Nausea/Vomitting: Yes - Labs CBC & Chem 7: 12/16/16 06:00 12/16/16 06:00 - ABG Interpretation ABG results: PT/INR, D-dimer PT 11.4 Seconds (9.4-12.1) 12/14/16 18:22 Consult Discharge Plan - Plan Referrals: Belle Farrell MD [Partnered Physician] - 12/27/16 3:15 pm Lilibeth Templeton CNP [Primary Care Provider] - 12/31/16 3:45 pm Prescriptions: OxyCODONE Immed Rel [Roxicodone 15 MG] 15 mg PO Q4H PRN #84 tablet PRN Reason: back pain Sennosides/Docusate Sodium [Senna-S Tablet] 2 each PO BID #90 tablet
[2016-12-18] MEDS: Benzonatate 100 MG CAPSULE PO SCH ×3 (09:59→20:05)
[2016-12-18] MEDS: *HR* LORazepam 0.5 MG TABLET PO SCH ×2 (09:59→20:04)
[2016-12-18] MEDS: Nicotine 14 MG PATCH.TD24 TD SCH (09:59)
[2016-12-18] MEDS: predniSONE 20 MG TABLET PO SCH (09:59)
[2016-12-18] MEDS: Sennosides/Docusate Sodium TABLET PO SCH ×2 (09:59→20:04)
--- NOTE | 2016-12-18 10:55 | Spinal Consult Note ---
Date of Encounter: 12/18/16 Time of Encounter: 10:53 Assessment and Plan (1) Osteopenia Current Visit: Yes Status: Chronic She is lying in bed in moderate distress secondary to back pain. She is on nasal oxygen and has a productive cough throughout the examination. Afebrile vital signs stable. She is neurovascularly intact with regard to her bilateral upper and lower extremities. She has no clonus. She has tenderness to palpation over the mid thoracic and thoracic a lumbar region. MRI of the thoracic spine reveals subacute vertebral compression fractures at T8 and T12 with 50% loss of height at T8. There is no significant retropulsion of fragments into the canal with either fracture Impression: 1) history of lung cancer 2) history of COPD on nasal oxygen 3 ) osteopenia 4) vertebral compression fractures T8 and T12 Plan: Due to her pulmonary issues including productive cough which she states has worsened recently I do not think she is a good candidate for surgical intervention in the form of a kyphoplasty. She can follow-up in office in 2 weeks to see if her pulmonary status improves and to assess her clinical improvement. At this time I would agree that analgesics may be the best option at this time. Bracing was also considered but declined which is reasonable. I suggest follow-up in the [facility] in my office in 2 weeks Qualifiers: Osteopenia location: spine Qualified Code(s): M85.88 - Other specified disorders of bone density and structure, other site History of Present Illness Chief complaint: Back pain HPI: Ms. Keenan is a 61 year old female Who complains of severe back pain for approximately 1 week without any known antecedent trauma. She was evaluated in the emergency department due to severe pain in admitted for pain control and management. She has a known history of COPD and is on home oxygen. We are asked to see regarding potential surgical management of her fractures. She is seen pain management was recommended oral analgesics and follow-up. She denies any fevers or chills. Past Med Surg Social Fam HX - Past Medical History Medical history: cancer, COPD, hypertension Psychiatric history: anxiety, depression - Past Surgical History Surgical History: hysterectomy - Social History Smoking Status: Former smoker Smokeless Tobacco Status: No Alcohol use: none Drug use: none - Family History Sister Living Status: Still Living Hx Family Cardiac Disorders: Yes (HTN) Hx Family Cancer: Yes (cervical) Mother Living Status: Father Living Status: Hx Family Cardiac Disorders: Yes Medications and Allergies DULoxetine [Cymbalta] 30 mg PO HS 02/15/16 [History] Trazodone HCl 200 mg PO HS 02/15/16 [History] Melatonin/Pyridoxine HCl (B6) [Melatonin 3 mg Tablet] 3 mg PO HS 05/02/16 [ History] Albuterol Neb [Proventil Neb] 2.5 mg IH Q6H PRN 10/14/16 [History] Albuterol Sulfate [Albuterol Inhaler] 2 puff IH Q6H PRN 10/14/16 [History] Budesonide/Formoterol 160/4.5 [Symbicort 160/4.5] 2 puff IH BIDR 10/14/16 [ History] Oxygen 2 l .ROUTE AD 10/14/16 [History] Tiotropium [Spiriva] 1 puff IH DAILY 10/14/16 [History] HydrOXYzine 25 mg PO HS #30 tablet 11/20/16 [Rx] Ondansetron [Zofran ODT] 8 mg SL Q4HR PRN #20 tab.rapdis 11/20/16 [Rx] Dexamethasone [Decadron] 4 mg PO BID #30 tab 11/27/16 [Rx] Magic Mouthwash [Magic Mouthwash BLM] 10 ml PO QID PRN #240 ml 11/27/16 [Rx] LORazepam [Ativan] 0.5 mg PO BID #60 tablet 11/29/16 [Rx] Ascorbate Calcium [Vitamin C] 500 mg PO DAILY 12/14/16 [History] predniSONE [PredniSONE] See Taper PO DAILY 12/14/16 [History] OxyCODONE Immed Rel [Roxicodone 15 MG] 15 mg PO Q4H PRN #84 tablet 12/18/16 [Rx] Sennosides/Docusate Sodium [Senna-S Tablet] 2 each PO BID #90 tablet 12/18/16 [ Rx] 3 Allergy/AdvReac Type Severity Reaction Status Date / Time No Known Allergies Allergy Verified 12/14/16 17:49 Results - Labs Result Diagrams: 12/16/16 06:00 12/16/16 06:00 Labs: Abnormal lab results RBC 3.07 M/mcL (3.82-4.97) L 12/16/16 06:00 Hgb 9.2 g/dL (11.5-15.4) L 12/16/16 06:00 Hct 28.7 % (35.3-44.9) L 12/16/16 06:00 MPV 9.1 fL (9.4-12.4) L 12/16/16 06:00 Neutrophils # 9.3 K/mcL (1.6-8.9) H 12/16/16 06:00 APTT 22.8 Seconds (26.0-36.0) L 12/14/16 18:22 Glucose 100 mg/dL (70-99) H 12/16/16 06:00 Calcium 8.5 mg/dL (8.6-10.8) L 12/16/16 06:00 Transferrin 158 mg/dL (180-382) L 12/16/16 09:03 Vitamin B12 818 pg/mL (213-816) H 12/16/16 09:03 All other labs normal. Consult Discharge Plan - Plan Referrals: Belle Farrell MD [Partnered Physician] - 12/27/16 3:15 pm Lilibeth Templeton CNP [Primary Care Provider] - 12/31/16 3:45 pm Prescriptions: OxyCODONE Immed Rel [Roxicodone 15 MG] 15 mg PO Q4H PRN #84 tablet PRN Reason: back pain Sennosides/Docusate Sodium [Senna-S Tablet] 2 each PO BID #90 tablet
[2016-12-18] MEDS: *HR* OxyCODONE Immed Rel 15 MG TABLET PO PRN ×3 (11:07→20:04)
--- NOTE | 2016-12-18 14:22 | Internal Med Progress Note ---
Date of Encounter: 12/18/16 Time of Encounter: 08:33 - Assessment and plan (1) Lung cancer Current Visit: Yes Status: Acute Assessment and plan: Domi Woods is a 61-year-old female with past medical history COPD, osteopenia and lung cancer who presented to [facility] on with complaints of chest and back pain. She was found to have an acute thoracic lumbar fracture and was admitted for IV pain control. 1. Vertebral compression fractures T8 and T12: Presented with right-sided chest pain that was worse with inspiration and movement. Pain uncontrolled on admission and required COPY PREPARER. Thoracic MRI with subacute T8 and T12 compression fractures. Evaluated by Dr. Wagner who did not feel patient was an appropriate candidate for surgical intervention at this time. She will need to follow-up with Dr. Wagner in 2 weeks. Continue with analgesics at this time. Evaluated by palliative care who transitioned from COPY PREPARER to PO pain regimen. Monitor overnight, his pain controlled on oral regimen complaint to discharge home 12/19 2. Acute COPD exacerbation: Has known history of underlying COPD. With increasing cough and wheezing on admission. Afebrile, no elevated WBC. No indication for respiratory ATB at this time Continue PO steroids, nebulizers. 3. Lung cancer: hx small cell lung cancer. Currently on chemotherapy. Follow up outpatient as previously planned. 4. DVT prophylaxis: Heparin Qualifiers: Qualified Code(s): C34.90 - Malignant neoplasm of unspecified part of unspecified bronchus or lung (2) Osteopenia Current Visit: Yes Status: Chronic Qualifiers: Osteopenia location: spine Qualified Code(s): M85.88 - Other specified disorders of bone density and structure, other site - Subjective Interval history: Seen and examined at bedside. Patient is due to be, information obtained from chart review and patient report. Patient says she overall feels better, pain is well controlled with COPY PREPARER pump. Patient initially had wanted to go home today but then later changed her mind and wanted to wait until tomorrow to evaluate effectiveness of oral pain medication. She denies chest pain, no shortness of breath. - Constitutional Vitals: Temp Pulse Resp BP Pulse Ox 97.8 F 112 20 125/77 91 12/18/16 10:36 12/18/16 10:36 12/18/16 11:09 12/18/16 10:36 12/18/16 11:09 General appearance: Present: cachectic, cooperative, mild distress, A&O X 3, pleasant, answers questions appropriately - Head Head exam: Present: atraumatic, normocephalic - Eye Eye exam: Present: PERRL, conjuntiva pink, sclera anicteric Pupils: Present: PERRL - Neck Neck exam general surgery: Present: supple, trachea midline. Absent: lymphadenopathy - Respiratory Respiratory exam: Present: CTAB. Absent: accessory muscle use, rales, rhonchi, wheezes - Cardiovascular Cardiovascular exam: Present: RRR, +S1, +S2. Absent: diastolic murmur, gallop, rubs, systolic murmur - GI/Abdominal GI/Abdominal exam: Present: normal bowel sounds, soft, no peritoneal signs. Absent: distended, tenderness - Extremities Exam Extremities exam: Present: warm, radial pulses palpable and symmetrical. Absent : calf tenderness, cyanotic, pedal edema - Neurological Exam Neurological exam: Present: CN II-XII intact, oriented X3, no focal deficits. Absent: pronater drift, facial droop, speech deficit - Skin Skin exam: Present: dry, intact Internal Medicine: Result - Labs CBC & Chem 7: 12/16/16 06:00 12/16/16 06:00 - ABG Interpretation ABG results: PT/INR, D-dimer PT 11.4 Seconds (9.4-12.1) 12/14/16 18:22 Consult Discharge Plan - Plan Referrals: Belle Farrell MD [Partnered Physician] - 12/27/16 3:15 pm Lilibeth Templeton CNP [Primary Care Provider] - 12/31/16 3:45 pm Prescriptions: OxyCODONE Immed Rel [Roxicodone 15 MG] 15 mg PO Q4H PRN #84 tablet PRN Reason: back pain Sennosides/Docusate Sodium [Senna-S Tablet] 2 each PO BID #90 tablet
[2016-12-18] MEDS: Levalbuterol Neb 1.25 MG/3 ML IH SCH (19:41)
[2016-12-18] MEDS: Ipratropium Neb 0.5 MG NEBULIZER IH SCH (19:50)
[2016-12-18] MEDS: traZODone 50 MG TABLET PO SCH (20:04)
[2016-12-18] MEDS: Melatonin 3 MG TABLET PO SCH (20:04)
[2016-12-18] MEDS ORDERED: *HR* Morphine 2 MG/ML SYRINGE IVP PRN (20:29)
[2016-12-18] MEDS ORDERED: *HR* Morphine 2 MG/ML SYRINGE ONE (20:32)
--- NOTE | 2016-12-18 23:08 | Event Note ---
Date of Encounter: 12/18/16 Time of Encounter: 23:07 The patient spiked a fever 102, CT scan of the chest from 12/14/2016 shows possible airspace disease. *Cefepime and Levaquin for possible healthcare associated pneumonia possibly present upon admission Chest x-ray will be ordered stat, Chek UA
[2016-12-18] MEDS ORDERED: Cefepime HCl 1,000 MG in D5% in Water (Mini-Bag+) 100 ML IVPB SCH (23:45)
[2016-12-18] MEDS: Cefepime HCl 1,000 MG in Water for inj. (sterile) 10 ML IVP SCH (23:52)
[2016-12-18] MEDS: Levofloxacin 750 MG/150 ML 750 MG/150 ML BAG IVPB SCH (23:53)
[2016-12-19] MEDS: Levalbuterol Neb 1.25 MG/3 ML IH SCH ×7 (00:13→23:33)
[2016-12-19] MEDS: Ipratropium Neb 0.5 MG NEBULIZER IH SCH ×7 (00:13→23:32)
[2016-12-19] MEDS: *HR* OxyCODONE Immed Rel 15 MG TABLET PO PRN ×4 (00:46→23:35)
[2016-12-19 02:16] LABS: Bilirubin,Urine Negative (Negative); Blood,Urine Negative (Negative); Clarity,Urine Clear (Clear); Color,Urine Yellow (Yellow); Glucose,Urine (UA) 250 mg/dL (Normal); Ketones,Urine Negative (Negative); Leukocyte Esterase,Urine Negative (Negative); Nitrite,Urine Negative (Negative); PH,Urine 6.5 pH Units (5.0-8.0); Protein,Urine Negative (Neg-Trace); Specific Gravity,Urine 1.019 (1.010-1.025); Urobilinogen,Urine Normal (Normal)
[2016-12-19] MEDS ORDERED: 0.9 % Sodium Chloride 1,000 ML IVC SCH (04:00)
[2016-12-19] MEDS ORDERED: 0.9 % Sodium Chloride 1,000 ML ONE (04:29)
[2016-12-19] MEDS: 0.9 % Sodium Chloride 1,000 ML IVC SCH ×3 (04:46→19:50)
[2016-12-19] MEDS: Ibuprofen 600 MG TABLET PO SCH ×4 (05:11→23:35)
[2016-12-19] MEDS: *HR* Heparin 5,000 UNIT/ML VIAL SQ SCH ×3 (05:11→23:35)
[2016-12-19] MEDS: Famotidine 20 MG/2 ML VIAL IVP SCH (05:11)
[2016-12-19] MEDS: Budesonide/Formoterol 160/4.5 MDI IH SCH ×2 (07:55→20:03)
[2016-12-19] MEDS: predniSONE 20 MG TABLET PO SCH (08:28)
[2016-12-19] MEDS: Sennosides/Docusate Sodium TABLET PO SCH ×2 (08:29→19:51)
[2016-12-19] MEDS: Nicotine 14 MG PATCH.TD24 TD SCH (08:29)
[2016-12-19] MEDS: *HR* LORazepam 0.5 MG TABLET PO SCH ×2 (08:29→19:50)
[2016-12-19] MEDS: Benzonatate 100 MG CAPSULE PO SCH ×3 (08:29→19:50)
[2016-12-19] MEDS: Levofloxacin 750 MG/150 ML 750 MG/150 ML BAG IVPB SCH (08:31)
--- NOTE | 2016-12-19 10:31 | Palliative Progress Note ---
Date of Encounter: 12/19/16 Time of Encounter: 09:40 - Assessment and plan (1) Back pain Current Visit: Yes Status: Acute Assessment and plan: Continue po Oxycodone if systolic pressure at least 90. MOnitor. 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 Had one additional Morphine 4m IVP dose last night. Will D/C this r/t hypotension and Monitor (2) Constipation Current Visit: Yes Status: Acute Assessment and plan: Continue Miralax and Senokot. Still no BM, but states she is not uncomfortable. Desires to wait until tomorrow prior to adding another laxative or suppository. Qualifiers: Qualified Code(s): K59.00 - Constipation, unspecified (3) Goals of care, counseling/discussion Current Visit: Yes Status: Acute Assessment and plan: I had another long discussion with patient regarding goals of care and code status. She still desires to remain full code. We discussed that with her severe lung disease and lung cancer, weaning off the ventilator may be challenging, and she needs to discuss with her and family, if should would want prison ventilatory support, tracheostomy, etc. She verbalized understanding. We also discussed again that heroics such as CPR may be traumatizing to her body r/t risk for further fractures and the pain this may cause. She again verbalized understanding. I again encouraged Domi to discuss with her . Will continue to follow. - Time Spent With Patient Total time spent is greater than 50% in coordination of care (as documented) at patient's floor/unit and/or counseling patient: - Subjective Interval history: Patient with fever, hypotension last pm. CXR demonstrated pneumonia. She does not recall many events from last night. On 2N. This am, states she feels short of breath and very weak. States pain a "4" at this time, but becoming more uncomfortable. Has not had pain medication in about 8 hours. B/P still marginal. - Constitutional Vitals: Abnormal lab results RBC 3.07 M/mcL (3.82-4.97) L 12/16/16 06:00 Hgb 9.2 g/dL (11.5-15.4) L 12/16/16 06:00 Hct 28.7 % (35.3-44.9) L 12/16/16 06:00 MPV 9.1 fL (9.4-12.4) L 12/16/16 06:00 Neutrophils # 9.3 K/mcL (1.6-8.9) H 12/16/16 06:00 APTT 22.8 Seconds (26.0-36.0) L 12/14/16 18:22 Glucose 100 mg/dL (70-99) H 12/16/16 06:00 Calcium 8.5 mg/dL (8.6-10.8) L 12/16/16 06:00 Transferrin 158 mg/dL (180-382) L 12/16/16 09:03 Vitamin B12 818 pg/mL (213-816) H 12/16/16 09:03 Urine Glucose (UA) 250 mg/dL (Normal) H 12/19/16 00:36 General appearance: Present: mild distress - Respiratory Additional comments: Rhonchi noted throughout lung putnam. Moist cough. - Cardiovascular Cardiovascular exam: Present: +S1, +S2 - GI/Abdominal GI/Abdominal exam: Present: normal bowel sounds, soft - Extremities Exam Extremities exam: Present: normal capillary refill, normal inspection - Neurological Exam Neurological exam: Present: alert, oriented X3, strengths equal and symetr throughout Additional comments: generalized weakness - Skin Skin exam: Present: dry, pallor, warm Palliative Quality Palliative Quality: Screen for Code Status: Yes, Screen for Goals of Care: Yes, Screen for Pain: Yes, If Pain Regimen Started, Initiate Bowel Regimen: Yes, Screen for Nausea/Vomitting: Yes - Labs CBC & Chem 7: 12/16/16 06:00 12/16/16 06:00 Labs: Laboratory Results - last 24 hr 12/19/16 00:36 Urine Color Yellow Urine Clarity Clear Urine pH 6.5 Ur Specific [place] 1.019 Urine Protein Negative Urine Glucose (UA) 250 H Urine Ketones Negative Urine Blood Negative Urine Nitrite Negative Urine Bilirubin Negative Urine Urobilinogen Normal Ur Leukocyte Esterase Negative Ur Culture Indicated? NO - Impressions Impressions Chest X-Ray 12/18/16 23:05 IMPRESSION: Accounting for differences in technique, there is no significant change compared to prior CT, where these findings are better evaluated. Age-indeterminate severe compression deformity mid thoracic spine vertebral body, better evaluated on comparison CT. D/ 12/19/2016 07:02:14 James Resendez MD / [email or web address] Interpreting Provider: James Resendez MD - ABG Interpretation ABG results: PT/INR, D-dimer PT 11.4 Seconds (9.4-12.1) 12/14/16 18:22 Consult Discharge Plan - Plan Referrals: Belle Farrell MD [Partnered Physician] - 12/27/16 3:15 pm Carlos Wagner Jr, MD [Partnered Physician] - 12/27/16 10:15 am Lilibeth Templeton CNP [Primary Care Provider] - 12/31/16 3:45 pm Prescriptions: OxyCODONE Immed Rel [Roxicodone 15 MG] 15 mg PO Q4H PRN #84 tablet PRN Reason: back pain Sennosides/Docusate Sodium [Senna-S Tablet] 2 each PO BID #90 tablet
--- NOTE | 2016-12-19 10:36 | Internal Med Progress Note ---
Date of Encounter: 12/19/16 Time of Encounter: 09:57 - Assessment and plan (1) Lung cancer Current Visit: Yes Status: Acute Assessment and plan: Domi Woods is a 61-year-old female with past medical history COPD, osteopenia and lung cancer who presented to [facility] on with complaints of chest and back pain. She was found to have an acute thoracic lumbar fracture and was admitted for IV pain control. Hospital course prolonged due to pneumonia and sepsis. 1. Healthcare associated pneumonia secondary to gram negative bacteria: suspected; recently admitted for COPD exacerbation. Admission CTA with right sided opacity concerning for airspace disease or metastatic lesion. ATB initially held as clinically did not appear to be pneumonia. Spiked fever of 102 overnight on 12/18. Cefepime and Levaquin started. Repeat CXR with with right upper lobe opacities. Cont IV Levaquin, cefepime. CBC, respiratory PCR, urinary antigens, sputum culture pending. 2. Severe sepsis: Tmax 102.9, HR 132, BP 80/48; likely secondary to suspected gram-negative pneumonia. BP and heart rate improved with IV fluids. Continue treating with IV fluids, IV Levaquin and IV cefepime. Blood cultures, sputum culture lactic acid pending. 3. Acute on chronic respiratory failure: With hypoxia. Has underlying COPD, lung cancer and now pneumonia. Wears O2 around the clock at home. With intermittent desaturations to 88% on 4 L. Continue treating underlying causes, nebulizers, aggressive IS. 4. Vertebral compression fractures T8 and T12: Presented with right-sided chest pain that was worse with inspiration and movement. Pain uncontrolled on admission and required CREATIVE DESIGNER. Thoracic MRI with subacute T8 and T12 compression fractures. Evaluated by Dr. Wagner who did not feel patient was an appropriate candidate for surgical intervention at this time. She will need to follow-up with Dr. Wagner in 2 weeks. Continue with analgesics at this time. Evaluated by palliative care who transitioned from CREATIVE DESIGNER to PO pain regimen. Patient initially tolerating pain regimen however now with increased drowsiness and lethargy on 12/19 exam. Judicious pain control as she is at risk for respiratory depression with compromised pulmonary function. Palliative care following to assist with pain control. 5. Acute COPD exacerbation: Has known history of underlying COPD. With increasing cough and wheezing on admission. Continue steroids, ATB, nebulizers. 6. Lung cancer: hx small cell lung cancer. Completed 2 rounds of chemotherapy. Oncology consulted 7. DVT prophylaxis: Heparin 8. Status: Full code verified with patient on 12/19/2016 Qualifiers: Qualified Code(s): C34.90 - Malignant neoplasm of unspecified part of unspecified bronchus or lung (2) Osteopenia Current Visit: Yes Status: Chronic Qualifiers: Osteopenia location: spine Qualified Code(s): M85.88 - Other specified disorders of bone density and structure, other site - Subjective Interval history: Seen and examined at bedside. She was transferred to [facility] overnight for fever and hypotension. Patient says she feels about the same, still in a lot of pain and requesting pain medicine. She does have a nonproductive cough, has shortness of breath but at baseline per patient. No chest pain. - Constitutional Vitals: Temp Pulse Resp BP Pulse Ox 98.9 F 107 20 96/59 100 12/19/16 03:30 12/19/16 03:30 12/19/16 03:30 12/19/16 07:55 12/19/16 07:55 General appearance: Present: cachectic, cooperative, mild distress, A&O X 3, pleasant, answers questions appropriately - Head Head exam: Present: atraumatic, normocephalic - Eye Eye exam: Present: PERRL, conjuntiva pink, sclera anicteric Pupils: Present: PERRL - Neck Neck exam general surgery: Present: supple, trachea midline. Absent: lymphadenopathy - Respiratory Respiratory exam: Present: accessory muscle use, rhonchi, wheezes. Absent: rales - Cardiovascular Cardiovascular exam: Present: RRR, +S1, +S2. Absent: diastolic murmur, gallop, rubs, systolic murmur - GI/Abdominal GI/Abdominal exam: Present: normal bowel sounds, soft, no peritoneal signs. Absent: distended, tenderness - Extremities Exam Extremities exam: Present: warm, radial pulses palpable and symmetrical. Absent : calf tenderness, cyanotic, pedal edema - Neurological Exam Neurological exam: Present: CN II-XII intact, oriented X3, no focal deficits. Absent: pronater drift, facial droop, speech deficit - Skin Skin exam: Present: dry, intact Internal Medicine: Result - Labs CBC & Chem 7: 12/16/16 06:00 12/16/16 06:00 Labs: Urine 12/19/16 Range/Units 00:36 Urine Color Yellow (Yellow) Urine Clarity Clear (Clear) Urine pH 6.5 (5.0-8.0) pH Units Ur Specific [place] 1.019 (1.010-1.025) Urine Protein Negative (Neg-Trace) mg/dL Urine Glucose (UA) 250 H (Normal) mg/dL - ABG Interpretation ABG results: PT/INR, D-dimer PT 11.4 Seconds (9.4-12.1) 12/14/16 18:22 - Impressions Impressions Chest X-Ray 12/18/16 23:05 IMPRESSION: Accounting for differences in technique, there is no significant change compared to prior CT, where these findings are better evaluated. Age-indeterminate severe compression deformity mid thoracic spine vertebral body, better evaluated on comparison CT. D/ / 12/19/2016 07:02:14 James Resendez MD / [email or web address] Interpreting Provider: James Resendez MD Consult Discharge Plan - Plan Referrals: Belle Farrell MD [Partnered Physician] - 12/27/16 3:15 pm Carlos Wagner Jr, MD [Partnered Physician] - 12/27/16 10:15 am Lilibeth Templeton CNP [Primary Care Provider] - 12/31/16 3:45 pm Prescriptions: OxyCODONE Immed Rel [Roxicodone 15 MG] 15 mg PO Q4H PRN #84 tablet PRN Reason: back pain Sennosides/Docusate Sodium [Senna-S Tablet] 2 each PO BID #90 tablet
[2016-12-19] MEDS: Cefepime HCl 1,000 MG in Water for inj. (sterile) 10 ML IVP SCH ×2 (12:01→23:34)
[2016-12-19 12:39] LABS: Hematocrit 24.3 % (35.3-44.9); Hemoglobin 7.9 g/dL (11.5-15.4); Lymphocytes # 0.3 K/mcL (0.6-4.6); Mean Corpuscular HGB Conc 32.5 g/dL (31.6-35.5); Mean Corpuscular Hemoglobin 30.3 pg (28.0-33.3); Mean Corpuscular Volume 93.1 fL (83.0-100.0); Mean Platelet Volume 9.1 fL (9.4-12.4); Monocytes # 0.2 K/mcL (0.0-1.3); Platelet Count 189 K/mcL (140-400); Red Blood Count 2.61 M/mcL (3.82-4.97); Red Cell Distribution Width 13.5 % (11.5-14.5)
[2016-12-19 12:45] LABS: Adenovirus Not Detected (Not Detect); Bordetella Pertussis Not Detected (Not Detect); Chlamydophila pneumoniae Not Detected (Not Detect); Coronavirus 229E Not Detected (Not Detect); Coronavirus HKU1 Not Detected (Not Detect); Coronavirus NL63 Not Detected (Not Detect); Coronavirus OC43 Not Detected (Not Detect); Human Metapneumovirus Not Detected (Not Detect); Human Rhinovirus/Enterovirus Not Detected (Not Detect); Influenza A Subtype 2009 H1 Not Detected (Not Detect); Influenza A Untypeable Not Detected (Not Detect); Influenza B Not Detected (Not Detect); Mycoplasma pneumoniae Not Detected (Not Detect); Parainfluenza Virus 1 Not Detected (Not Detect); Parainfluenza Virus 2 Not Detected (Not Detect); Parainfluenza Virus 3 Not Detected (Not Detect); Parainfluenza Virus 4 Not Detected (Not Detect); Respiratory Syncytial Virus Not Detected (Not Detect)
[2016-12-19 13:10] LABS: Alanine Aminotransferase 15 Units/L (0-55); Albumin/Globulin Ratio 0.7 (1.1-2.2); Alkaline Phosphatase 66 Units/L (38-126); Aspartate Amino Transferase 16 Units/L (5-34); BUN/Creatinine Ratio 24 (6-26); Bilirubin,Total 0.5 mg/dL (0.2-1.2); Blood Urea Nitrogen 20 mg/dL (7-20); Calcium 8.2 mg/dL (8.6-10.8); Carbon Dioxide 26 mEq/L (19-29); Chloride 99 mEq/L (98-109); Globulin 2.8 g/dL (2.4-3.5); Glucose 117 mg/dL (70-99); Osmolality,Calculated 280 (280-300); Potassium 3.6 mEq/L (3.5-4.5); Sodium 133 mEq/L (136-145); Total Protein 4.7 g/dL (6.0-8.3); eGFR For African Americans > 60 (> 60); eGFR For Non-African Americans > 60 (> 60)
[2016-12-19 13:11] LABS: Albumin 1.9 g/dL (3.5-5.0)
[2016-12-19 13:53] LABS: Dohle Bodies Present (Not Present); Neutrophils # 1.5 K/mcL (1.6-8.9); Platelet Estimate Normal (Normal)
--- NOTE | 2016-12-19 14:22 | Oncology Inp Consult Note ---
<Scarlet Laureano - Last Filed: 12/19/16 14:12> Date of Encounter: 12/19/16 Time of Encounter: 13:30 Assessment and Plan (1) Small cell 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 Status: Acute Assessment and plan: Patient of Dr. Bird'tung. Stage IV. Treatment plan consists of Carboplatin and Etoposide, cycle 1 inpatient followed with neulasta, cycle 2 completed. After speaking with patient she is interested in continuing treatments once acute pneumonia symptoms improve. I discussed the MRI spine findings with her which may be consistent with metastasis to T11 spinous process. Dr. Beltrán reviewed MRI and CTA findings, plan for patient to continue same treatment once discharged and follow up with further imaging. May consider radiation therapy to spine if needed once discharged. Follow up already scheduled with Dr. Beltrán December 27. (2) Compression fracture of body of thoracic vertebra Status: Acute Assessment and plan: Evaluated by Dr. Wagner and determined not a surgical candidate at this time. Follow up outpatient as already planned. Transitioned to PO pain medication, pain control as managed by palliative team. (3) Pain Status: Acute Assessment and plan: Patient reports pain under control at this time. Managed per palliative team (4) Anemia Status: Acute Assessment and plan: Hgb 7.9 today, dropped from 9.2 on 12/16. Plan to continue to monitor with daily CBC, no need for transfusion at this time. Denies chest pain, reports SOB related to pneumonia/COPD/SCLC, denies symptoms of bleeding such as hemoptysis, hematuria, hematochezia. Qualifiers: Other causes of anemia: other cause, not classified Qualified Code(s): D64.89 - Other specified anemias (5) Healthcare-associated pneumonia Status: Resolved Assessment and plan: Sepsis. HR and BP now improved. Managed by hospitalist team with IV Levaquin, Cefepime and IV fluids. Respiratory PCR and urine antigens negative. - Data of Consult Patient: known to practice within the last 3 years Requesting Physician: Jacki Schwab CNP Primary Care Provider: Lilibeth Templeton CNP - Consult Narrative History of present illness: Ms. Keenan is a 61 year old female who presented to the ER on 12/14/2016 with complaints of back pain. MRI spine shows subacute benign fractures at T8 and T12 along with enhancement within the T11 spinous process which could represent metastasis. CTA chest on 12/14/16 shows slight decrease in mediastinal adenopathy and right hilar mass along with new, irregular nodular opacity in right apex which could represent airspace disease or metastatic lesion. She was admitted inpatient for pain control and further consult for management of spinal fractures. Evaluated by Dr. Wagner who did not feel as though patient is a surgical candidate at this time and will follow up on an outpatient basis. She has now transitioned from ASSEMBLY LOADER to PO pain medication which appears to be managing her pain appropriately. Patient was planned to be discharged, however developed tachycardia, hypotension and temperature of 102.9 , worsening respiratory status and her hospital course is now prolonged due to development of pneumonia and sepsis. Oncologic history Ms. Keenan underwent chest x-ray in October 2016 when she presented with pneumonia which found large right hilar mass. CT abdomen showed 4 cm lesion in liver along with innumerable low-density hepatic lesions, howard hepatitis and gastrohepatic lymphadenopathy. Pathology from 11/07/2016 of right hilar mass consistent with small cell lung cancer. She received inpatient chemo cycle 1 with carboplatin and etoposide with nuelasta. She received cycle 2 at the cancer center and has tolerated treatments well. Past Med Surg Social Fam HX - Past Medical History Medical history: cancer (Small cell lung cancer), COPD, hypertension Psychiatric history: anxiety, depression - Past Surgical History Surgical History: hysterectomy - Social History Smoking Status: Former smoker Smokeless Tobacco Status: No Alcohol use: none Drug use: none - Family History Sister Living Status: Still Living Hx Family Cardiac Disorders: Yes (HTN) Hx Family Cancer: Yes (cervical) Mother Living Status: Father Living Status: Hx Family Cardiac Disorders: Yes Medications and Allergies DULoxetine [Cymbalta] 30 mg PO HS 02/15/16 [History] Trazodone HCl 200 mg PO HS 02/15/16 [History] Melatonin/Pyridoxine HCl (B6) [Melatonin 3 mg Tablet] 3 mg PO HS 05/02/16 [ History] Albuterol Neb [Proventil Neb] 2.5 mg IH Q6H PRN 10/14/16 [History] Albuterol Sulfate [Albuterol Inhaler] 2 puff IH Q6H PRN 10/14/16 [History] Budesonide/Formoterol 160/4.5 [Symbicort 160/4.5] 2 puff IH BIDR 10/14/16 [ History] Oxygen 2 l .ROUTE AD 10/14/16 [History] Tiotropium [Spiriva] 1 puff IH DAILY 10/14/16 [History] HydrOXYzine 25 mg PO HS #30 tablet 11/20/16 [Rx] Ondansetron [Zofran ODT] 8 mg SL Q4HR PRN #20 tab.rapdis 11/20/16 [Rx] Dexamethasone [Decadron] 4 mg PO BID #30 tab 11/27/16 [Rx] Magic Mouthwash [Magic Mouthwash BLM] 10 ml PO QID PRN #240 ml 11/27/16 [Rx] LORazepam [Ativan] 0.5 mg PO BID #60 tablet 11/29/16 [Rx] Ascorbate Calcium [Vitamin C] 500 mg PO DAILY 12/14/16 [History] predniSONE [PredniSONE] See Taper PO DAILY 12/14/16 [History] OxyCODONE Immed Rel [Roxicodone 15 MG] 15 mg PO Q4H PRN #84 tablet 12/18/16 [Rx] Sennosides/Docusate Sodium [Senna-S Tablet] 2 each PO BID #90 tablet 12/18/16 [ Rx] 3 Allergy/AdvReac Type Severity Reaction Status Date / Time No Known Allergies Allergy Verified 12/14/16 17:49 Constitutional: Present: fatigue, fever(s), weakness. Absent: frequent falls, headache(s) Eyes: Absent: change in vision Ears: Absent: tinnitus Nose, mouth and throat: Absent: abnormal hearing, bleeding gums, epistaxis Cardiovascular: Present: dyspnea on exertion. Absent: chest pain, irregular heart rhythm, palpitations Respiratory: Present: cough, dyspnea on exertion Additional comments: O2 dependent Gastrointestinal: Present: constipation. Absent: abdominal pain, nausea, vomiting Genitourinary: Absent: difficulty urinating, hematuria Musculoskeletal: Present: back pain, limited range of motion. Absent: numbness , tingling Integumentary: Absent: bleeding lesions, swelling Neurological: Absent: dizziness, focal weakness Psychiatric: Present: anxiety. Absent: depression Hematologic/Lymphatic: Absent: lymphadenopathy Oncology - Exam - Constitutional Vitals: Temp Pulse Resp BP Pulse Ox 98.9 F 107 20 96/59 100 12/19/16 03:30 12/19/16 03:30 12/19/16 03:30 12/19/16 07:55 12/19/16 07:55 General appearance: cooperative, no acute distress - Head Head exam: Present: atraumatic, normocephalic - Eye Eye exam: Present: EOMI - Neck Neck exam: Absent: lymphadenopathy - Respiratory Respiratory exam: Present: rhonchi, wheezes - Cardiovascular Cardiovascular exam: Present: RRR, tachycardia. Absent: diastolic murmur, systolic murmur - GI/Abdominal GI/Abdominal exam: Present: distended, soft, tenderness - Extremities Exam Extremities exam: Absent: pedal edema, tenderness - Back Exam Back exam: Present: tenderness, vertebral tenderness - Neurological Exam Neurological exam: Present: alert, oriented X3 - Psychiatric Psychiatric exam: Present: normal affect - Skin Skin exam: Present: normal color Oncology - Results Labs: Short CBC 12/19/16 Range/Units 12:02 WBC 2.2 L D (4.3-11.1) K/mcL Hgb 7.9 L (11.5-15.4) g/dL Hct 24.3 L (35.3-44.9) % Plt Count 189 (140-400) K/mcL Neutrophils # 1.5 L (1.6-8.9) K/mcL BMP 12/19/16 10:33 Sodium 133 L Potassium 3.6 Chloride 99 Carbon Dioxide 26 BUN 20 Creatinine 0.83 Glucose 117 H Calcium 8.2 L Liver Function 12/19/16 Range/Units 10:33 Total Bilirubin 0.5 (0.2-1.2) mg/dL AST 16 (5-34) Units/L ALT 15 (0-55) Units/L Alkaline Phosphatase 66 (38-126) Units/L Albumin 1.9 L (3.5-5.0) g/dL Urine 12/19/16 Range/Units 00:36 Urine Color Yellow (Yellow) Urine Clarity Clear (Clear) Urine pH 6.5 (5.0-8.0) pH Units Ur Specific [place] 1.019 (1.010-1.025) Urine Protein Negative (Neg-Trace) mg/dL Urine Glucose (UA) 250 H (Normal) mg/dL Consult Discharge Plan - Plan Referrals: Belle Farrell MD [Partnered Physician] - 12/27/16 3:15 pm Carlos Wagner Jr, MD [Partnered Physician] - 12/27/16 10:15 am Lilibeth Templeton CNP [Primary Care Provider] - 12/31/16 3:45 pm Prescriptions: OxyCODONE Immed Rel [Roxicodone 15 MG] 15 mg PO Q4H PRN #84 tablet PRN Reason: back pain Sennosides/Docusate Sodium [Senna-S Tablet] 2 each PO BID #90 tablet <Linda Bird - Last Filed: 12/20/16 10:42> Date of Encounter: 12/20/16 - Data of Consult Requesting Physician: Jacki Schwab CNP Primary Care Provider: Lilibeth Templeton CNP - Consult Narrative History of present illness: Ms. Keenan is a 61 year old female Oncology - Exam - Constitutional Vitals: Temp Pulse Resp BP Pulse Ox 97.9 F 96 18 125/71 96 12/20/16 07:20 12/20/16 07:20 12/20/16 07:51 12/20/16 07:20 12/20/16 07:51 Oncology - Results Labs: Short CBC 12/19/16 12/19/16 12/20/16 Range/Units 12:02 21:34 05:05 WBC 2.2 L D 2.5 L 2.5 L (4.3-11.1) K/mcL Hgb 7.9 L 7.6 L 8.2 L (11.5-15.4) g/dL Hct 24.3 L 23.2 L 25.0 L (35.3-44.9) % Plt Count 189 185 186 (140-400) K/mcL Neutrophils # 1.5 L 1.9 (1.6-8.9) K/mcL BMP 12/19/16 12/20/16 10:33 05:05 Sodium 133 L 142 D Potassium 3.6 3.3 L Chloride 99 112 H Carbon Dioxide 26 25 BUN 20 10 D Creatinine 0.83 0.60 Glucose 117 H 105 H Calcium 8.2 L 8.8 Liver Function 12/19/16 12/20/16 Range/Units 10:33 05:05 Total Bilirubin 0.5 0.4 (0.2-1.2) mg/dL AST 16 13 (5-34) Units/L ALT 15 14 (0-55) Units/L Alkaline Phosphatase 66 62 (38-126) Units/L Albumin 1.9 L 1.7 L (3.5-5.0) g/dL - Attending Attestation I examined this patient and my medical decision-making was reviewed with the Advanced Practice Nurse, Scarlet Laureano CNP. Discussed findings nad plan in detail with patient and family I agree with the documented findings, disposition and treatment plan as described except to the extent set forth below.
[2016-12-19] MEDS: Famotidine 20 MG TABLET PO SCH (17:51)
[2016-12-19] MEDS: traZODone 50 MG TABLET PO SCH (19:50)
[2016-12-19] MEDS: Melatonin 3 MG TABLET PO SCH (19:50)
[2016-12-19 22:01] LABS: Hematocrit 23.2 % (35.3-44.9); Hemoglobin 7.6 g/dL (11.5-15.4); Immature Granulocytes % 1.6 % (0-4); Lymphocytes % 13.9 %; Mean Corpuscular HGB Conc 32.8 g/dL (31.6-35.5); Mean Corpuscular Hemoglobin 30.3 pg (28.0-33.3); Mean Corpuscular Volume 92.4 fL (83.0-100.0); Mean Platelet Volume 9.5 fL (9.4-12.4); Monocytes # 0.2 K/mcL (0.0-1.3); Neutrophils # 1.9 K/mcL (1.6-8.9); Platelet Count 185 K/mcL (140-400); Red Blood Count 2.51 M/mcL (3.82-4.97); Red Cell Distribution Width 13.6 % (11.5-14.5); Segmented Neutrophils % 75.5 %
[2016-12-19 22:04] LABS: Lymphocytes # 0.4 K/mcL (0.6-4.6)
[2016-12-19 22:23] LABS: Platelet Estimate Normal (Normal)
[2016-12-19 22:24] LABS: Hypochromasia Present (Not Present)
[2016-12-20] MEDS ORDERED: 0.9 % Sodium Chloride 250 ML ONE (00:25)
[2016-12-20] MEDS: 0.9 % Sodium Chloride 1,000 ML IVC SCH ×2 (03:15→05:51)
[2016-12-20] MEDS: Ipratropium Neb 0.5 MG NEBULIZER IH SCH ×6 (04:33→23:35)
[2016-12-20] MEDS: Levalbuterol Neb 1.25 MG/3 ML IH SCH ×7 (04:33→23:35)
[2016-12-20] MEDS: Famotidine 20 MG TABLET PO SCH ×2 (05:51→17:26)
[2016-12-20] MEDS: Ibuprofen 600 MG TABLET PO SCH ×2 (05:51→11:24)
[2016-12-20] MEDS: *HR* Heparin 5,000 UNIT/ML VIAL SQ SCH ×2 (05:51→14:58)
[2016-12-20 05:56] LABS: Hemoglobin 8.2 g/dL (11.5-15.4); Mean Corpuscular HGB Conc 32.8 g/dL (31.6-35.5); Mean Corpuscular Volume 91.6 fL (83.0-100.0); Mean Platelet Volume 9.5 fL (9.4-12.4); Platelet Count 186 K/mcL (140-400); Red Blood Count 2.73 M/mcL (3.82-4.97); Red Cell Distribution Width 14.1 % (11.5-14.5)
[2016-12-20 06:10] LABS: Alanine Aminotransferase 14 Units/L (0-55); Albumin 1.7 g/dL (3.5-5.0); Albumin/Globulin Ratio 0.6 (1.1-2.2); Alkaline Phosphatase 62 Units/L (38-126); Aspartate Amino Transferase 13 Units/L (5-34); BUN/Creatinine Ratio 17 (6-26); Bilirubin,Total 0.4 mg/dL (0.2-1.2); Blood Urea Nitrogen 10 mg/dL (7-20); Calcium 8.8 mg/dL (8.6-10.8); Carbon Dioxide 25 mEq/L (19-29); Chloride 112 mEq/L (98-109); Glucose 105 mg/dL (70-99); Osmolality,Calculated 293 (280-300); Potassium 3.3 mEq/L (3.5-4.5); Sodium 142 mEq/L (136-145); Total Protein 4.7 g/dL (6.0-8.3); eGFR For African Americans > 60 (> 60); eGFR For Non-African Americans > 60 (> 60)
[2016-12-20] MEDS: *HR* OxyCODONE Immed Rel 15 MG TABLET PO PRN ×3 (06:43→14:58)
[2016-12-20] MEDS: Budesonide/Formoterol 160/4.5 MDI IH SCH ×2 (07:51→20:24)
[2016-12-20] MEDS: Levofloxacin 750 MG/150 ML 750 MG/150 ML BAG IVPB SCH (08:28)
[2016-12-20] MEDS: Sennosides/Docusate Sodium TABLET PO SCH ×2 (08:29→19:47)
[2016-12-20] MEDS: Benzonatate 100 MG CAPSULE PO SCH ×3 (08:29→19:46)
[2016-12-20] MEDS: predniSONE 20 MG TABLET PO SCH (08:29)
[2016-12-20] MEDS: Nicotine 14 MG PATCH.TD24 TD SCH (08:29)
[2016-12-20] MEDS: *HR* LORazepam 0.5 MG TABLET PO SCH ×2 (08:29→19:47)
--- NOTE | 2016-12-20 09:45 | Electrocardiograph Report ---
[place] [id number] Test Date: 2016-12-14 Pat Name: Domi Keenan Department: 102 Room: 2N06 Gender: F Special Event Assistant: Manolo : 1955 Requested By: Hakeem Chapman Order Number: [id number] Reading MD: Alexa Gama Measurements Intervals [place] Rate: 105 P: 69 ME: 152 QRS: 7 QRSD: 74 T: 50 QT: 310 QTc: 371 Interpretive Statements SINUS TACHYCARDIA ABNORMAL RHYTHM ECG Electronically Signed On 12-20-2016 9:43:47 EDT by Alexa Gama
--- NOTE | 2016-12-20 10:34 | Internal Med Progress Note ---
Date of Encounter: 12/20/16 Time of Encounter: 10:29 - Assessment and plan (1) Sepsis Current Visit: No Status: Resolved Assessment and plan: Pt did meet sepsis criteria with fever, leukopenia, source of as PNA Improving BP stable today Cont empirical abx Cefepime and Levaquin blood cx, sputum cx - P so far negative Legionella and Strep PNA Qualifiers: Sepsis type: Haemophilus influenzae Qualified Code(s): A41.3 - Sepsis due to Hemophilus influenzae (2) Acute and chronic respiratory failure Current Visit: No Status: Resolved Assessment and plan: She does have acute on chronic hypoxic resp failure triggered by PNA Cont duoneb and O2 Qualifiers: Respiratory failure complication: hypoxia Qualified Code(s): J96.21 - Acute and chronic respiratory failure with hypoxia (3) Acute exacerbation of chronic obstructive airways disease Current Visit: No Status: Resolved Assessment and plan: She does have diffuse wheezing will inc systemic steroids cont duoneb and O2 (4) Pneumonia Current Visit: No Status: Acute Assessment and plan: mostly bacterial infection cont broad spec abx Qualifiers: Pneumonia type: due to Haemophilus influenzae Laterality: right Lung location: lower lobe of lung Qualified Code(s): J14 - Pneumonia due to Hemophilus influenzae (5) Small cell 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 Current Visit: No Status: Acute Assessment and plan: need to f/u with heme onc as an out pt (6) Thoracic compression fracture Current Visit: Yes Status: Acute Assessment and plan: Pt with burst fracture to T8, irregularity to T11, compression fx to T12.. Pt is being followed by pain management as well as ortho and palliative care. I appreciate the collaboration and recommendations from all. Qualifiers: Encounter type: initial encounter Fracture type: closed Qualified Code(s) : S22.000A - Wedge compression fracture of unspecified thoracic vertebra, initial encounter for closed fracture (7) Smoking Current Visit: No Status: Chronic Assessment and plan: quit smoking 3 weeks ago - Subjective Interval history: Ms. Keenan is a 61 year old female with history of COPD on home oxygen, recently diagnosed small cell lung cancer presents to the emergency room wityh progressively worsening SOB and CP. CT scan in the emergency room showed Rt sided opacity and concerning for airspace disease and no evidence of pulmonary embolism. Pt went into severe sepsis with T max 102.9 and source of inf as pneumonia. She was transferred to step down unit for further care. Pt stated she is feeling little better today. Denied any CP. Still has some SOB and moderate [place]. currently on 4 lit O2. She does use 2 lit O2 at home - Constitutional Vitals: Temp Pulse Resp BP Pulse Ox 97.9 F 96 18 125/71 96 12/20/16 07:20 12/20/16 07:20 12/20/16 07:51 12/20/16 07:20 12/20/16 07:51 General appearance: Present: cachectic, A&O X 3, answers questions appropriately - Head Head exam: Present: atraumatic, normal inspection - Respiratory Respiratory exam: Present: decreased breath sounds, respiratory distress (mild) , wheezes (moderate to severe). Absent: rales, rhonchi - Cardiovascular Cardiovascular exam: Present: RRR, +S1, +S2. Absent: tachycardia - GI/Abdominal GI/Abdominal exam: Present: normal bowel sounds, soft. Absent: rebound, rigid, tenderness - Extremities Exam Extremities exam: Absent: calf tenderness, pedal edema, tenderness - Neurological Exam Neurological exam: Present: alert, oriented X3 - Psychiatric Psychiatric exam: Present: normal affect, normal mood Internal Medicine: Result - Labs CBC & Chem 7: 12/20/16 05:05 12/20/16 05:05 Labs: Short CBC 12/19/16 12/19/16 12/20/16 Range/Units 12:02 21:34 05:05 WBC 2.2 L D 2.5 L 2.5 L (4.3-11.1) K/mcL Hgb 7.9 L 7.6 L 8.2 L (11.5-15.4) g/dL Hct 24.3 L 23.2 L 25.0 L (35.3-44.9) % Plt Count 189 185 186 (140-400) K/mcL Neutrophils # 1.5 L 1.9 (1.6-8.9) K/mcL BMP 12/19/16 12/20/16 10:33 05:05 Sodium 133 L 142 D Potassium 3.6 3.3 L Chloride 99 112 H Carbon Dioxide 26 25 BUN 20 10 D Creatinine 0.83 0.60 Glucose 117 H 105 H Calcium 8.2 L 8.8 Liver Function 12/19/16 12/20/16 Range/Units 10:33 05:05 Total Bilirubin 0.5 0.4 (0.2-1.2) mg/dL AST 16 13 (5-34) Units/L ALT 15 14 (0-55) Units/L Alkaline Phosphatase 66 62 (38-126) Units/L Albumin 1.9 L 1.7 L (3.5-5.0) g/dL - ABG Interpretation ABG results: PT/INR, D-dimer PT 11.4 Seconds (9.4-12.1) 12/14/16 18:22 Consult Discharge Plan - Plan Referrals: Belle Farrell MD [Partnered Physician] - 12/27/16 3:15 pm Carlos Wagner Jr, MD [Partnered Physician] - 12/27/16 10:15 am Lilibeth Templeton CNP [Primary Care Provider] - 12/31/16 3:45 pm Prescriptions: OxyCODONE Immed Rel [Roxicodone 15 MG] 15 mg PO Q4H PRN #84 tablet PRN Reason: back pain Sennosides/Docusate Sodium [Senna-S Tablet] 2 each PO BID #90 tablet
--- NOTE | 2016-12-20 11:15 | Palliative Progress Note ---
Date of Encounter: 12/20/16 Time of Encounter: 09:45 - Assessment and plan (1) Back pain Current Visit: Yes Status: Acute Assessment and plan: Continue Oxycodone 15mg every 4 hours PRN. Has utilized x4 last 24 hours. Monitor. (2) Constipation Current Visit: Yes Status: Acute Assessment and plan: Continue Senokot and Miralax. Will add one time dose Dulcolax today and monitor Qualifiers: Constipation type: unspecified constipation type Qualified Code(s): K59.00 - Constipation, unspecified (3) Goals of care, counseling/discussion Current Visit: Yes Status: Acute Assessment and plan: Refer to goals of care discussion from yesterday. Patient remains full code. POA is completed. Desires aggressive treatment. - Time Spent With Patient Total time spent is greater than 50% in coordination of care (as documented) at patient's floor/unit and/or counseling patient: 25 - 35 minutes - Subjective Interval history: Patient with no fever overnight, and states she feels much better and feels her breathing is better. States back pain is well controlled. Oncology stopped by yesterday and discussed plan with patient which she greatly appreciated. Still no BM. - Constitutional Vitals: Abnormal lab results WBC 2.5 K/mcL (4.3-11.1) L 12/20/16 05:05 RBC 2.73 M/mcL (3.82-4.97) L 12/20/16 05:05 Hgb 8.2 g/dL (11.5-15.4) L 12/20/16 05:05 Hct 25.0 % (35.3-44.9) L 12/20/16 05:05 Band Neutrophils % 44.0 % (0-4) H 12/19/16 12:02 Metamyelocytes % 9.0 % (0) H 12/19/16 12:02 Lymphocytes # 0.4 K/mcL (0.6-4.6) L 12/19/16 21:34 Dohle Bodies Present (Not Present) A 12/19/16 12:02 Hypochromasia Present (Not Present) A 12/19/16 21:34 APTT 22.8 Seconds (26.0-36.0) L 12/14/16 18:22 Potassium 3.3 mEq/L (3.5-4.5) L 12/20/16 05:05 Chloride 112 mEq/L (98-109) H 12/20/16 05:05 Glucose 105 mg/dL (70-99) H 12/20/16 05:05 Transferrin 158 mg/dL (180-382) L 12/16/16 09:03 Serum Total Protein 4.7 g/dL (6.0-8.3) L 12/20/16 05:05 Albumin 1.7 g/dL (3.5-5.0) L 12/20/16 05:05 Albumin/Globulin Ratio 0.6 (1.1-2.2) L 12/20/16 05:05 Vitamin B12 818 pg/mL (213-816) H 12/16/16 09:03 Urine Glucose (UA) 250 mg/dL (Normal) H 12/19/16 00:36 General appearance: Present: no acute distress - Respiratory Additional comments: Wheezes and scattered rhonchi throughout - Cardiovascular Cardiovascular exam: Present: +S1, +S2 - GI/Abdominal GI/Abdominal exam: Present: normal bowel sounds, soft - Extremities Exam Extremities exam: Present: normal capillary refill, normal inspection - Neurological Exam Neurological exam: Present: alert, oriented X3, strengths equal and symetr throughout - Skin Skin exam: Present: dry, warm Palliative Quality Palliative Quality: Screen for Code Status: Yes, Screen for Goals of Care: Yes, Screen for Pain: Yes, If Pain Regimen Started, Initiate Bowel Regimen: Yes, Screen for Nausea/Vomitting: Yes - Labs CBC & Chem 7: 12/20/16 05:05 12/20/16 05:05 Labs: Laboratory Results - last 24 hr 12/19/16 12/19/16 12/19/16 10:33 10:33 11:10 WBC RBC Hgb Hct MCV MCH MCHC RDW Plt Count MPV Immature Gran % Seg Neutrophils % Band Neutrophils % Lymphocytes % Monocytes % Eosinophils % Basophils % Metamyelocytes % Neutrophils # Lymphocytes # Monocytes # Eosinophils # Basophils # Dohle Bodies Platelet Estimate Hypochromasia Sodium 133 L Potassium 3.6 Chloride 99 Carbon Dioxide 26 BUN 20 Creatinine 0.83 Est GFR ( Amer) > 60 Est GFR (Non-Af Amer) > 60 BUN/Creatinine Ratio 24 Glucose 117 H Calculated Osmolality 280 Calcium 8.2 L Total Bilirubin 0.5 AST 16 ALT 15 Alkaline Phosphatase 66 B-Natriuretic Peptide 76 Serum Total Protein 4.7 L Albumin 1.9 L Globulin 2.8 Albumin/Globulin Ratio 0.7 L Chlamy pneumoniae PCR Not Detected Adenovirus (PCR) Not Detected B. pertussis DNA (PCR) Not Detected Coronavirus OC43 (PCR) Not Detected Coronavirus HKU1 (PCR) Not Detected Coronavirus 229E (PCR) Not Detected Coronavirus NL63 (PCR) Not Detected Human Metapneumovir PCR Not Detected Influenza A (H1) PCR Not Detected Influ A (H1N1/09) PCR Not Detected Influenza A (H3) PCR Not Detected Influenza A Untype (PCR) Not Detected Influenza Type B (PCR) Not Detected M.pneumoniae DNA (PCR) Not Detected Parainfluenza 1 (PCR) Not Detected Parainfluenza 2 (PCR) Not Detected Parainfluenza 3 (PCR) Not Detected Parainfluenza 4 (PCR) Not Detected RSV (PCR) Not Detected Entero/Rhino (PCR) Not Detected Blood Type Antibody Screen Crossmatch 12/19/16 12/19/16 12/19/16 12:02 14:19 21:34 WBC 2.2 L D 2.5 L RBC 2.61 L 2.51 L Hgb 7.9 L 7.6 L Hct 24.3 L 23.2 L MCV 93.1 92.4 MCH 30.3 30.3 MCHC 32.5 32.8 RDW 13.5 13.6 Plt Count 189 185 MPV 9.1 L 9.5 Immature Gran % 1.6 Seg Neutrophils % 25.0 75.5 Band Neutrophils % 44.0 H Lymphocytes % 13.0 13.9 Monocytes % 9.0 9.0 Eosinophils % 0.0 Basophils % 0.0 Metamyelocytes % 9.0 H Neutrophils # 1.5 L 1.9 Lymphocytes # 0.3 L 0.4 L Monocytes # 0.2 0.2 Eosinophils # 0.0 Basophils # 0.0 Dohle Bodies Present A Platelet Estimate Normal Normal Hypochromasia Present A Sodium Potassium Chloride Carbon Dioxide BUN Creatinine Est GFR ( Amer) Est GFR (Non-Af Amer) BUN/Creatinine Ratio Glucose Calculated Osmolality Calcium Total Bilirubin AST ALT Alkaline Phosphatase B-Natriuretic Peptide Serum Total Protein Albumin Globulin Albumin/Globulin Ratio Chlamy pneumoniae PCR Adenovirus (PCR) B. pertussis DNA (PCR) Coronavirus OC43 (PCR) Coronavirus HKU1 (PCR) Coronavirus 229E (PCR) Coronavirus NL63 (PCR) Human Metapneumovir PCR Influenza A (H1) PCR Influ A (H1N1/) PCR Influenza A (H3) PCR Influenza A Untype (PCR) Influenza Type B (PCR) M.pneumoniae DNA (PCR) Parainfluenza 1 (PCR) Parainfluenza 2 (PCR) Parainfluenza 3 (PCR) Parainfluenza 4 (PCR) RSV (PCR) Entero/Rhino (PCR) Blood Type B POSITIVE Antibody Screen NEGATIVE Crossmatch See Detail 12/20/16 12/20/16 05:05 05:05 WBC 2.5 L RBC 2.73 L Hgb 8.2 L Hct 25.0 L MCV 91.6 MCH 30.0 MCHC 32.8 RDW 14.1 Plt Count 186 MPV 9.5 Immature Gran % Seg Neutrophils % Band Neutrophils % Lymphocytes % Monocytes % Eosinophils % Basophils % Metamyelocytes % Neutrophils # Lymphocytes # Monocytes # Eosinophils # Basophils # Dohle Bodies Platelet Estimate Hypochromasia Sodium 142 D Potassium 3.3 L Chloride 112 H Carbon Dioxide 25 BUN 10 D Creatinine 0.60 Est GFR ( Amer) > 60 Est GFR (Non-Af Amer) > 60 BUN/Creatinine Ratio 17 Glucose 105 H Calculated Osmolality 293 Calcium 8.8 Total Bilirubin 0.4 AST 13 ALT 14 Alkaline Phosphatase 62 B-Natriuretic Peptide Serum Total Protein 4.7 L Albumin 1.7 L Globulin 3.0 Albumin/Globulin Ratio 0.6 L Chlamy pneumoniae PCR Adenovirus (PCR) B. pertussis DNA (PCR) Coronavirus OC43 (PCR) Coronavirus HKU1 (PCR) Coronavirus 229E (PCR) Coronavirus NL63 (PCR) Human Metapneumovir PCR Influenza A (H1) PCR Influ A (H1N1/) PCR Influenza A (H3) PCR Influenza A Untype (PCR) Influenza Type B (PCR) M.pneumoniae DNA (PCR) Parainfluenza 1 (PCR) Parainfluenza 2 (PCR) Parainfluenza 3 (PCR) Parainfluenza 4 (PCR) RSV (PCR) Entero/Rhino (PCR) Blood Type Antibody Screen Crossmatch - ABG Interpretation ABG results: PT/INR, D-dimer PT 11.4 Seconds (9.4-12.1) 12/14/16 18:22 Consult Discharge Plan - Plan Referrals: Belle Farrell MD [Partnered Physician] - 12/27/16 3:15 pm Carlos Wagner Jr, MD [Partnered Physician] - 12/27/16 10:15 am Lilibeth Templeton CNP [Primary Care Provider] - 12/31/16 3:45 pm Prescriptions: OxyCODONE Immed Rel [Roxicodone 15 MG] 15 mg PO Q4H PRN #84 tablet PRN Reason: back pain Sennosides/Docusate Sodium [Senna-S Tablet] 2 each PO BID #90 tablet
[2016-12-20] MEDS: Cefepime HCl 1,000 MG in Water for inj. (sterile) 10 ML IVP SCH (11:23)
[2016-12-20] MEDS ORDERED: Levalbuterol Neb 1.25 MG/3 ML AER PRN (14:36)
[2016-12-20] MEDS ORDERED: *HR* OxyCODONE Immed Rel 15 MG TABLET PO PRN (17:10)
[2016-12-20] MEDS: MethylPREDNISolone 40 MG/ML VIAL IVP SCH (17:26)
[2016-12-20 17:31] LABS: ABG Base Excess 4 mEq/L (-2 to 3); ABG HCO3 28 mEq/L (21-27); ABG Oxygen Saturation 96 % (95-98); ABG PCO2 39 mmHg (35-45); ABG PH 7.46 pH Units (7.32-7.45); ABG PO2 80 mmHg (85-104); ABG TCO2 29 mEq/L (20-26)
[2016-12-20] MEDS: Lactulose Oral Soln 20 GM/30 ML UDC PO PRN (18:30)
[2016-12-20] MEDS: traZODone 50 MG TABLET PO SCH (19:46)
[2016-12-20] MEDS: Melatonin 3 MG TABLET PO SCH (19:46)
[2016-12-21] MEDS: Cefepime HCl 1,000 MG in Water for inj. (sterile) 10 ML IVP SCH ×2 (00:10→11:17)
[2016-12-21] MEDS: *HR* Heparin 5,000 UNIT/ML VIAL SQ SCH ×4 (00:10→20:59)
[2016-12-21] MEDS: MethylPREDNISolone 40 MG/ML VIAL IVP SCH ×3 (00:11→17:29)
[2016-12-21] MEDS: *HR* OxyCODONE Immed Rel 5 MG TABLET PO PRN ×6 (00:15→21:12)
[2016-12-21] MEDS: Levalbuterol Neb 1.25 MG/3 ML IH SCH ×5 (04:02→20:42)
[2016-12-21] MEDS: Ipratropium Neb 0.5 MG NEBULIZER IH SCH ×5 (04:02→20:42)
[2016-12-21 04:45] LABS: Hematocrit 26.3 % (35.3-44.9); Hemoglobin 8.6 g/dL (11.5-15.4); Mean Corpuscular HGB Conc 32.7 g/dL (31.6-35.5); Mean Corpuscular Hemoglobin 29.7 pg (28.0-33.3); Mean Corpuscular Volume 90.7 fL (83.0-100.0); Mean Platelet Volume 9.7 fL (9.4-12.4); Platelet Count 198 K/mcL (140-400); Red Cell Distribution Width 14.4 % (11.5-14.5)
[2016-12-21 04:46] LABS: Nucleated Red Blood Cells 1.9 /100 WBC (0)
[2016-12-21 04:58] LABS: Alanine Aminotransferase 16 Units/L (0-55); Albumin/Globulin Ratio 0.5 (1.1-2.2); Alkaline Phosphatase 67 Units/L (38-126); Aspartate Amino Transferase 10 Units/L (5-34); BUN/Creatinine Ratio 13 (6-26); Bilirubin,Total 0.2 mg/dL (0.2-1.2); Blood Urea Nitrogen 8 mg/dL (7-20); Calcium 9.3 mg/dL (8.6-10.8); Carbon Dioxide 28 mEq/L (19-29); Chloride 107 mEq/L (98-109); Globulin 3.4 g/dL (2.4-3.5); Glucose 171 mg/dL (70-99); Osmolality,Calculated 294 (280-300); Sodium 141 mEq/L (136-145); Total Protein 5.2 g/dL (6.0-8.3); eGFR For African Americans > 60 (> 60); eGFR For Non-African Americans > 60 (> 60)
[2016-12-21 05:01] LABS: Albumin 1.8 g/dL (3.5-5.0)
[2016-12-21 05:28] LABS: Lymphocytes # 0.2 K/mcL (0.6-4.6); Monocytes # 0.1 K/mcL (0.0-1.3); Neutrophils # 1.8 K/mcL (1.6-8.9); Platelet Estimate Normal (Normal); Toxic Granulation Present (Not Present)
[2016-12-21 05:29] LABS: Hypochromasia Present (Not Present); Polychromasia 1+ (Not Present)
[2016-12-21] MEDS: Famotidine 20 MG TABLET PO SCH ×2 (06:18→17:29)
[2016-12-21] MEDS ORDERED: Ibuprofen 600 MG TABLET PO PRN (07:22)
[2016-12-21] MEDS: Budesonide/Formoterol 160/4.5 MDI IH SCH ×2 (07:38→20:42)
[2016-12-21] MEDS: Nicotine 14 MG PATCH.TD24 TD SCH (07:56)
[2016-12-21] MEDS: Sennosides/Docusate Sodium TABLET PO SCH ×2 (07:56→20:58)
[2016-12-21] MEDS: *HR* LORazepam 0.5 MG TABLET PO SCH ×2 (07:56→20:58)
[2016-12-21] MEDS: Benzonatate 100 MG CAPSULE PO SCH ×3 (07:56→20:58)
[2016-12-21] MEDS: Levofloxacin 750 MG/150 ML 750 MG/150 ML BAG IVPB SCH (07:57)
[2016-12-21] MEDS: Lactulose Oral Soln 20 GM/30 ML UDC PO PRN (07:57)
--- NOTE | 2016-12-21 09:31 | Palliative Progress Note ---
Date of Encounter: 12/21/16 Time of Encounter: 09:30 - Assessment and plan (1) Back pain Current Visit: Yes Status: Acute Assessment and plan: Oxycodone was decreased yesterday afternoon r/t drowsiness. She states 10mg has been effective and she is comfortable. D/W Hospitalist - I placed my old script in shred box and Hospitalist will address and order if needed upon discharge. (2) Constipation Current Visit: Yes Status: Acute Assessment and plan: Continue Laxatives - lactulose has also been ordered. Will add fleets enema PRN. States she does not feel constipation and is not in any discomfort. Feels she can have BM when she gets home. Again stressed the risk of opioid induced constipation. Qualifiers: Constipation type: unspecified constipation type Qualified Code(s): K59.00 - Constipation, unspecified (3) Goals of care, counseling/discussion Current Visit: Yes Status: Acute Assessment and plan: PT/OT consult to [facility] for rehab. It is likely she will refuse. If she goes home, will be renewal to [facility]. Palliative will f/u Saturday if pt remains in hospital. - Time Spent With Patient Total time spent is greater than 50% in coordination of care (as documented) at patient's floor/unit and/or counseling patient: 25 - 35 minutes - Subjective Interval history: Patient up on side of bed. States feeling well. Oxycodone was decreased yesterday r/t pt with some signs of oversedation. She stated she had severe pain once during night, and was too early for medication, but better this am. Still no BM despite Senna, Miralax, Dulcolax dose yesterday and Lactulose. - Constitutional Vitals: Abnormal lab results WBC 2.1 K/mcL (4.3-11.1) L 12/21/16 04:20 RBC 2.90 M/mcL (3.82-4.97) L 12/21/16 04:20 Hgb 8.6 g/dL (11.5-15.4) L 12/21/16 04:20 Hct 26.3 % (35.3-44.9) L 12/21/16 04:20 Band Neutrophils % 8.0 % (0-4) H 12/21/16 04:20 Metamyelocytes % 9.0 % (0) H 12/19/16 12:02 Lymphocytes # 0.2 K/mcL (0.6-4.6) L 12/21/16 04:20 Nucleated RBCs/100 WBC 1.9 /100 WBC (0) H 12/21/16 04:20 Toxic Granulation Present (Not Present) A 12/21/16 04:20 Dohle Bodies Present (Not Present) A 12/19/16 12:02 Polychromasia 1+ (Not Present) A 12/21/16 04:20 Hypochromasia Present (Not Present) A 12/21/16 04:20 APTT 22.8 Seconds (26.0-36.0) L 12/14/16 18:22 ABG pH 7.46 pH Units (7.32-7.45) H 12/20/16 17:28 ABG pO2 80 mmHg (85-104) L 12/20/16 17:28 ABG HCO3 28 mEq/L (21-27) H 12/20/16 17:28 ABG Total CO2 29 mEq/L (20-26) H 12/20/16 17:28 ABG Base Excess 4 mEq/L (-2 to 3) H 12/20/16 17:28 Glucose 171 mg/dL (70-99) H 12/21/16 04:20 Transferrin 158 mg/dL (180-382) L 12/16/16 09:03 Serum Total Protein 5.2 g/dL (6.0-8.3) L 12/21/16 04:20 Albumin 1.8 g/dL (3.5-5.0) L 12/21/16 04:20 Albumin/Globulin Ratio 0.5 (1.1-2.2) L 12/21/16 04:20 Vitamin B12 818 pg/mL (213-816) H 12/16/16 09:03 Urine Glucose (UA) 250 mg/dL (Normal) H 12/19/16 00:36 General appearance: Present: no acute distress - Respiratory Respiratory exam: Present: decreased breath sounds, CTAB, wheezes - Cardiovascular Cardiovascular exam: Present: +S1, +S2 - GI/Abdominal GI/Abdominal exam: Present: normal bowel sounds, soft - Extremities Exam Extremities exam: Present: normal capillary refill, normal inspection - Neurological Exam Neurological exam: Present: alert, oriented X3, strengths equal and symetr throughout Palliative Quality Palliative Quality: Screen for Code Status: Yes, Screen for Goals of Care: Yes, Screen for Pain: Yes, If Pain Regimen Started, Initiate Bowel Regimen: Yes, Screen for Nausea/Vomitting: Yes - Labs CBC & Chem 7: 12/21/16 04:20 12/21/16 04:20 Labs: Laboratory Results - last 24 hr 12/20/16 12/21/16 12/21/16 17:28 04:20 04:20 WBC 2.1 L RBC 2.90 L Hgb 8.6 L Hct 26.3 L MCV 90.7 MCH 29.7 MCHC 32.7 RDW 14.4 Plt Count 198 MPV 9.7 Seg Neutrophils % 78.0 Band Neutrophils % 8.0 H Lymphocytes % 10.0 Monocytes % 4.0 Neutrophils # 1.8 Lymphocytes # 0.2 L Monocytes # 0.1 Nucleated RBCs/100 WBC 1.9 H Toxic Granulation Present A Platelet Estimate Normal Polychromasia 1+ A Hypochromasia Present A Sample Site L Radial ABG pH 7.46 H ABG pCO2 39 ABG pO2 80 L ABG HCO3 28 H ABG Total CO2 29 H ABG O2 Saturation 96 ABG Base Excess 4 H Reji Test Positive O2 Delivery Device Cannula Inspired O2 4.0 Sodium 141 Potassium 4.0 Chloride 107 Carbon Dioxide 28 BUN 8 Creatinine 0.60 Est GFR ( Amer) > 60 Est GFR (Non-Af Amer) > 60 BUN/Creatinine Ratio 13 Glucose 171 H Calculated Osmolality 294 Calcium 9.3 Total Bilirubin 0.2 AST 10 ALT 16 Alkaline Phosphatase 67 Serum Total Protein 5.2 L Albumin 1.8 L Globulin 3.4 Albumin/Globulin Ratio 0.5 L - ABG Interpretation ABG results: ABG ABG pH 7.46 pH Units (7.32-7.45) H 12/20/16 17:28 ABG pCO2 39 mmHg (35-45) 12/20/16 17:28 ABG pO2 80 mmHg (85-104) L 12/20/16 17:28 ABG O2 Saturation 96 % (95-98) 12/20/16 17:28 PT/INR, D-dimer PT 11.4 Seconds (9.4-12.1) 12/14/16 18:22 Consult Discharge Plan - Plan Referrals: Belle Farrell MD [Partnered Physician] - 12/27/16 3:15 pm Carlos Wagner Jr, MD [Partnered Physician] - 12/27/16 10:15 am Lilibeth Templeton CNP [Primary Care Provider] - 12/31/16 3:45 pm Prescriptions: OxyCODONE Immed Rel [Roxicodone 15 MG] 15 mg PO Q4H PRN #84 tablet PRN Reason: back pain Sennosides/Docusate Sodium [Senna-S Tablet] 2 each PO BID #90 tablet
--- NOTE | 2016-12-21 14:43 | Internal Med Progress Note ---
Date of Encounter: 12/21/16 Time of Encounter: 14:39 - Assessment and plan (1) Sepsis Current Visit: No Status: Resolved Assessment and plan: Pt did meet sepsis criteria with fever, leukopenia, source of as PNA Improving Cont empirical abx Cefepime and Levaquin blood cx - no growth so far negative Legionella and Strep PNA Qualifiers: Sepsis type: Haemophilus influenzae Qualified Code(s): A41.3 - Sepsis due to Hemophilus influenzae (2) Acute and chronic respiratory failure Current Visit: No Status: Acute Assessment and plan: She does have acute on chronic hypoxic resp failure triggered by PNA Cont duoneb and O2 Cont steroids Qualifiers: Respiratory failure complication: hypoxia Qualified Code(s): J96.21 - Acute and chronic respiratory failure with hypoxia (3) Acute exacerbation of chronic obstructive airways disease Current Visit: No Status: Resolved Assessment and plan: Improving wheezing will start taperin her systemic steroids cont duoneb and O2 (4) Pneumonia Current Visit: No Status: Acute Assessment and plan: mostly bacterial infection cont broad spec abx Qualifiers: Pneumonia type: due to Haemophilus influenzae Laterality: right Lung location: lower lobe of lung Qualified Code(s): J14 - Pneumonia due to Hemophilus influenzae (5) Small cell 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 Current Visit: No Status: Acute Assessment and plan: need to f/u with heme onc as an out pt (6) Sinus tachycardia Current Visit: Yes Status: Acute Assessment and plan: Multi factorial - anxiety + Resp distress cont close monitoring started on Metoprolol 25mg PO Daily (7) Thoracic compression fracture Current Visit: Yes Status: Acute Assessment and plan: Pt with burst fracture to T8, irregularity to T11, compression fx to T12.. Pt is being followed by pain management as well as ortho and palliative care. I appreciate the collaboration and recommendations from all. Qualifiers: Encounter type: initial encounter Fracture type: closed Qualified Code(s) : S22.000A - Wedge compression fracture of unspecified thoracic vertebra, initial encounter for closed fracture (8) Smoking Current Visit: No Status: Chronic Assessment and plan: quit smoking 3 weeks ago - Subjective Interval history: Ms. Keenan is a 61 year old female with history of COPD on home oxygen, recently diagnosed small cell lung cancer presents to the emergency room wityh progressively worsening SOB and CP. CT scan in the emergency room showed Rt sided opacity and concerning for airspace disease and no evidence of pulmonary embolism. Pt went into severe sepsis with T max 102.9 and source of inf as pneumonia. She was transferred to step down unit for further care. Pt stated she is feeling much better today. Denied any CP. Still has some SOB and moderate [place]. currently on 4 lit O2. She does use 2 lit O2 at home - Constitutional Vitals: Temp Pulse Resp BP Pulse Ox 97.7 F 113 24 137/94 95 12/21/16 10:11 12/21/16 10:11 12/21/16 11:04 12/21/16 10:11 12/21/16 11:04 General appearance: Present: cachectic, A&O X 3, answers questions appropriately - Head Head exam: Present: atraumatic, normal inspection - Respiratory Respiratory exam: Present: decreased breath sounds, wheezes (moderate). Absent : rales, respiratory distress, rhonchi - Cardiovascular Cardiovascular exam: Present: +S1, +S2, tachycardia - GI/Abdominal GI/Abdominal exam: Present: normal bowel sounds, soft. Absent: rebound, rigid, tenderness - Extremities Exam Extremities exam: Absent: calf tenderness, pedal edema, tenderness - Back Exam Back exam: Absent: CVA tenderness (L), CVA tenderness (R) - Neurological Exam Neurological exam: Present: alert, oriented X3. Absent: no focal deficits - Psychiatric Psychiatric exam: Present: normal affect, normal mood Internal Medicine: Result - Labs CBC & Chem 7: 12/21/16 04:20 12/21/16 04:20 Labs: Short CBC 12/21/16 Range/Units 04:20 WBC 2.1 L (4.3-11.1) K/mcL Hgb 8.6 L (11.5-15.4) g/dL Hct 26.3 L (35.3-44.9) % Plt Count 198 (140-400) K/mcL Neutrophils # 1.8 (1.6-8.9) K/mcL BMP 12/21/16 04:20 Sodium 141 Potassium 4.0 Chloride 107 Carbon Dioxide 28 BUN 8 Creatinine 0.60 Glucose 171 H Calcium 9.3 Liver Function 12/21/16 Range/Units 04:20 Total Bilirubin 0.2 (0.2-1.2) mg/dL AST 10 (5-34) Units/L ALT 16 (0-55) Units/L Alkaline Phosphatase 67 (38-126) Units/L Albumin 1.8 L (3.5-5.0) g/dL - ABG Interpretation ABG results: ABG ABG pH 7.46 pH Units (7.32-7.45) H 12/20/16 17:28 ABG pCO2 39 mmHg (35-45) 12/20/16 17:28 ABG pO2 80 mmHg (85-104) L 12/20/16 17:28 ABG O2 Saturation 96 % (95-98) 12/20/16 17:28 PT/INR, D-dimer PT 11.4 Seconds (9.4-12.1) 12/14/16 18:22 Consult Discharge Plan - Plan Referrals: Belle Farrell MD [Partnered Physician] - 12/27/16 3:15 pm Carlos Wagner Jr, MD [Partnered Physician] - 12/27/16 10:15 am Lilibeth Templeton CNP [Primary Care Provider] - 12/31/16 3:45 pm Prescriptions: OxyCODONE Immed Rel [Roxicodone 15 MG] 15 mg PO Q4H PRN #84 tablet PRN Reason: back pain Sennosides/Docusate Sodium [Senna-S Tablet] 2 each PO BID #90 tablet
[2016-12-21] MEDS: Metoprolol XL (24 HR) Succ 25 MG TAB.ER.24H PO SCH (15:12)
--- NOTE | 2016-12-21 16:50 | Oncology Inp Progress Note ---
<Scarlet Constantino L - Last Filed: 12/23/16 11:03> Date of Encounter: 12/23/16 Time of Encounter: 15:00 (1) Small cell 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 Status: Acute Assessment and plan: Patient of Dr. Bird'tung. Metastatic Stage IV. Treatment plan consists of Carboplatin and Etoposide, cycle 1 inpatient followed with neulasta, cycle 2 was not completed fully. After speaking with patient she is interested in continuing treatments once acute pneumonia symptoms improve. MRI spine may be consistent with metastasis to T11 spinous process[address] Dr. Beltrán reviewed MRI and CTA findings, plan for patient to continue same treatment once discharged and follow up with further imaging. May consider radiation therapy to spine if needed once discharged. Discussed follow up with patient, she prefers to have the week to recover from her acute illness. Plan to arrange follow up with Dr. Beltrán within the next week and schedule next treatment at that time. (2) Compression fracture of body of thoracic vertebra Status: Acute Assessment and plan: Evaluated by Dr. Wagner and determined not a surgical candidate at this time. Follow up outpatient as already planned. Transitioned to PO pain medication, pain control as managed by palliative team. No bracing due to COPD. She will receive PT with . (3) Pain Status: Acute Assessment and plan: Patient reports pain under control at this time. Managed per palliative team (4) Anemia Status: Acute Assessment and plan: Improving, hgb today 8.6. Plan to continue to monitor with daily CBC, no need for transfusion at this time. Denies chest pain, reports SOB related to pneumonia/COPD/SCLC, denies symptoms of bleeding such as hemoptysis, hematuria, hematochezia. Qualifiers: Other causes of anemia: other cause, not classified Qualified Code(s): D64.89 - Other specified anemias Oncology: Subj Interval history: Ms. Keenan reports feeling much better. Her need for O2 has decreased from 4L to 2 L NC which is her baseline. SOB continues to improve. Oral pain medication effective for pain. Constipation has began to resolve. - Constitutional Vitals: Vital Signs Temp Pulse Resp BP Pulse Ox 12/21/16 11:04 24 95 12/21/16 10:11 97.7 F 113 24 137/94 95 12/21/16 07:40 22 93 12/21/16 07:11 97.8 F 99 22 149/84 93 12/21/16 04:02 24 91 12/21/16 03:02 97.8 F 105 25 165/96 92 12/20/16 23:37 97.9 F 108 18 146/88 12/20/16 20:25 19 90 12/20/16 18:54 97.1 F L 109 18 141/91 94 12/20/16 17:05 22 95 Intake and Output 12/21/16 12/21/16 12/21/16 07:59 15:59 23:59 Intake Total 150 / 150 250 / 250 Output Total 1100 / 1100 525 / 525 Balance -950 / -950 -275 / -275 Intake: IV Fluids Maxipime 1,000 MG In Water for inj. (sterile) 10 ML @ 150 mls/ hr IVP Q12H [facility] Rx#:[id number] Oral 150 / 150 240 / 240 Output: Urine 1100 / 1100 525 / 525 Other: Meal Lunch Percent of Meal Consumed 50% Stool Size Large # Bowel Movements 2 Weight 52.8 kg 52.8 kg Patient Weight 12/21/16 23:59 Weight 52.8 kg General appearance: cooperative, no acute distress - Head Head exam: Present: atraumatic, normocephalic - ENT ENT exam: Present: mucous membranes moist - Neck Neck exam: Present: full ROM. Absent: lymphadenopathy, tenderness - Respiratory Respiratory exam: Present: rhonchi, wheezes. Absent: respiratory distress - Cardiovascular Cardiovascular exam: Present: RRR, tachycardia. Absent: diastolic murmur, systolic murmur - GI/Abdominal GI/Abdominal exam: Present: normal bowel sounds, soft. Absent: tenderness - Extremities Exam Extremities exam: Present: normal inspection. Absent: pedal edema, tenderness - Back Exam Back exam: Present: tenderness - Neurological Exam Neurological exam: Present: alert, oriented X3, strengths equal and symetr throughout - Psychiatric Psychiatric exam: Present: normal affect, normal mood - Skin Skin exam: Present: normal color Oncology: Obj Data - Labs CBC & Chem 7: 12/22/16 07:00 12/22/16 07:00 Labs: Laboratory Results - last 24 hr 12/20/16 12/21/16 12/21/16 17:28 04:20 04:20 WBC 2.1 L RBC 2.90 L Hgb 8.6 L Hct 26.3 L MCV 90.7 MCH 29.7 MCHC 32.7 RDW 14.4 Plt Count 198 MPV 9.7 Seg Neutrophils % 78.0 Band Neutrophils % 8.0 H Lymphocytes % 10.0 Monocytes % 4.0 Neutrophils # 1.8 Lymphocytes # 0.2 L Monocytes # 0.1 Nucleated RBCs/100 WBC 1.9 H Toxic Granulation Present A Platelet Estimate Normal Polychromasia 1+ A Hypochromasia Present A Sample Site L Radial ABG pH 7.46 H ABG pCO2 39 ABG pO2 80 L ABG HCO3 28 H ABG Total CO2 29 H ABG O2 Saturation 96 ABG Base Excess 4 H Reji Test Positive O2 Delivery Device Cannula Inspired O2 4.0 Sodium 141 Potassium 4.0 Chloride 107 Carbon Dioxide 28 BUN 8 Creatinine 0.60 Est GFR ( Amer) > 60 Est GFR (Non-Af Amer) > 60 BUN/Creatinine Ratio 13 Glucose 171 H Calculated Osmolality 294 Calcium 9.3 Total Bilirubin 0.2 AST 10 ALT 16 Alkaline Phosphatase 67 Serum Total Protein 5.2 L Albumin 1.8 L Globulin 3.4 Albumin/Globulin Ratio 0.5 L - ABG Interpretation ABG results: ABG ABG pH 7.46 pH Units (7.32-7.45) H 12/20/16 17:28 ABG pCO2 39 mmHg (35-45) 12/20/16 17:28 ABG pO2 80 mmHg (85-104) L 12/20/16 17:28 ABG O2 Saturation 96 % (95-98) 12/20/16 17:28 PT/INR, D-dimer PT 11.4 Seconds (9.4-12.1) 12/14/16 18:22 Consult Discharge Plan - Plan Instructions: Sepsis (DC), Pneumonia (DC) Referrals: Belle Farrell MD [Partnered Physician] - 12/27/16 3:15 pm Carlos Wagner Jr, MD [Partnered Physician] - 12/27/16 10:15 am Lilibeth Templeton CNP [Primary Care Provider] - 12/31/16 3:45 pm Prescriptions: Oxycodone HCl/Acetaminophen [Endocet 10-325 mg Tablet] 1 each PO Q6HR PRN #20 tablet PRN Reason: Pain Amoxicillin/Clavulanate [Augmentin] 875 mg PO BIDWM #8 tablet Furosemide [Lasix] 20 mg PO DAILY PRN #15 tablet PRN Reason: Edema Metoprolol XL (24 HR) Succ [Toprol Xl] 25 mg PO DAILY #30 tab.er.24h Nicotine Patch [Nicoderm] 14 mg TD DAILY #30 patch.td24 Polyethylene Glycol 3350 [MiraLAX] 17 gm PO DAILY PRN #30 powd.pack PRN Reason: Constipation predniSONE [PredniSONE] 40 mg PO BIDWM #18 tablet Sennosides/Docusate Sodium [Senna-Docusate Sodium Tablet] 2 each PO BID PRN #60 tablet PRN Reason: Constipation <Jagruti Angelapathy S - Last Filed: 12/24/16 11:46> Date of Encounter: 12/24/16 - Constitutional Vitals: Vital Signs Temp Pulse Resp BP Pulse Ox 12/21/16 16:50 24 95 12/21/16 11:04 24 95 12/21/16 10:11 97.7 F 113 24 137/94 95 12/21/16 07:40 22 93 12/21/16 07:11 97.8 F 99 22 149/84 93 12/21/16 04:02 24 91 12/21/16 03:02 97.8 F 105 25 165/96 92 12/20/16 23:37 97.9 F 108 18 146/88 12/20/16 20:25 19 90 12/20/16 18:54 97.1 F L 109 18 141/91 94 Intake and Output 12/21/16 12/21/16 12/21/16 07:59 15:59 23:59 Intake Total 150 / 150 250 / 250 Output Total 1100 / 1100 525 / 525 Balance -950 / -950 -275 / -275 Intake: IV Fluids Maxipime 1,000 MG In Water for inj. (sterile) 10 ML @ 150 mls/ hr IVP Q12H [facility] Rx#:[id number] Oral 150 / 150 240 / 240 Output: Urine 1100 / 1100 525 / 525 Other: Meal Lunch Percent of Meal Consumed 50% Stool Size Large # Bowel Movements 2 Weight 52.8 kg 52.8 kg Patient Weight 12/21/16 23:59 Weight 52.8 kg Oncology: Obj Data - Labs CBC & Chem 7: 12/22/16 07:00 11/04/17 07:00 Labs: Laboratory Results - last 24 hr 12/20/16 12/21/16 12/21/16 17:28 04:20 04:20 WBC 2.1 L RBC 2.90 L Hgb 8.6 L Hct 26.3 L MCV 90.7 MCH 29.7 MCHC 32.7 RDW 14.4 Plt Count 198 MPV 9.7 Seg Neutrophils % 78.0 Band Neutrophils % 8.0 H Lymphocytes % 10.0 Monocytes % 4.0 Neutrophils # 1.8 Lymphocytes # 0.2 L Monocytes # 0.1 Nucleated RBCs/100 WBC 1.9 H Toxic Granulation Present A Platelet Estimate Normal Polychromasia 1+ A Hypochromasia Present A Sample Site L Radial ABG pH 7.46 H ABG pCO2 39 ABG pO2 80 L ABG HCO3 28 H ABG Total CO2 29 H ABG O2 Saturation 96 ABG Base Excess 4 H Reji Test Positive O2 Delivery Device Cannula Inspired O2 4.0 Sodium 141 Potassium 4.0 Chloride 107 Carbon Dioxide 28 BUN 8 Creatinine 0.60 Est GFR ( Amer) > 60 Est GFR (Non-Af Amer) > 60 BUN/Creatinine Ratio 13 Glucose 171 H Calculated Osmolality 294 Calcium 9.3 Total Bilirubin 0.2 AST 10 ALT 16 Alkaline Phosphatase 67 Serum Total Protein 5.2 L Albumin 1.8 L Globulin 3.4 Albumin/Globulin Ratio 0.5 L - ABG Interpretation ABG results: ABG ABG pH 7.46 pH Units (7.32-7.45) H 12/20/16 17:28 ABG pCO2 39 mmHg (35-45) 12/20/16 17:28 ABG pO2 80 mmHg (85-104) L 12/20/16 17:28 ABG O2 Saturation 96 % (95-98) 12/20/16 17:28 PT/INR, D-dimer PT 11.4 Seconds (9.4-12.1) 12/14/16 18:22 - Attending Attestation I examined this patient and my medical decision-making was reviewed with the Advanced Practice Nurse. I agree with the documented findings, disposition and treatment plan as described except to the extent set forth below. 1 . Extensive stage small cell lung cancer with a right hilar mass and mild right effusion. Multiple liver metastasis. Cycle one chemotherapy cisplatin etoposide starting 11/16/2016. He received cycle 2 starting 12/10/2016. She already had a good response with reduction in the right hilar mass and liver metastasis 2. Hospitalized with back pain and she has a compression fracture at T12. I am not sure if it is metastatic 3. High fever. She has small airspace disease right upper lobe but no dense infiltrates. She does have significant emphysema. She is getting IV antibiotics. Blood cultures no growth Code 3 chemotherapy scheduled for 12/31/2016
[2016-12-21] MEDS: Melatonin 3 MG TABLET PO SCH (20:58)
[2016-12-21] MEDS: traZODone 50 MG TABLET PO SCH (20:59)
[2016-12-22] MEDS: Ipratropium Neb 0.5 MG NEBULIZER IH SCH ×4 (00:49→11:37)
[2016-12-22] MEDS: Levalbuterol Neb 1.25 MG/3 ML IH SCH ×4 (00:49→11:37)
[2016-12-22] MEDS: Cefepime HCl 1,000 MG in Water for inj. (sterile) 10 ML IVP SCH (01:24)
[2016-12-22] MEDS: *HR* OxyCODONE Immed Rel 5 MG TABLET PO PRN ×3 (04:45→12:29)
[2016-12-22] MEDS: *HR* Heparin 5,000 UNIT/ML VIAL SQ SCH (04:46)
[2016-12-22] MEDS: Famotidine 20 MG TABLET PO SCH (04:46)
[2016-12-22] MEDS: MethylPREDNISolone 40 MG/ML VIAL IVP SCH (04:46)
[2016-12-22 07:21] LABS: Hematocrit 30.1 % (35.3-44.9); Hemoglobin 9.8 g/dL (11.5-15.4); Mean Corpuscular HGB Conc 32.6 g/dL (31.6-35.5); Mean Corpuscular Hemoglobin 29.9 pg (28.0-33.3); Mean Corpuscular Volume 91.8 fL (83.0-100.0); Mean Platelet Volume 9.6 fL (9.4-12.4); Platelet Count 253 K/mcL (140-400); Red Blood Count 3.28 M/mcL (3.82-4.97); Red Cell Distribution Width 13.9 % (11.5-14.5)
[2016-12-22 07:23] LABS: Alanine Aminotransferase 19 Units/L (0-55); Albumin/Globulin Ratio 0.5 (1.1-2.2); Alkaline Phosphatase 73 Units/L (38-126); Aspartate Amino Transferase 10 Units/L (5-34); BUN/Creatinine Ratio 19 (6-26); Bilirubin,Total 0.3 mg/dL (0.2-1.2); Blood Urea Nitrogen 13 mg/dL (7-20); Calcium 9.4 mg/dL (8.6-10.8); Carbon Dioxide 27 mEq/L (19-29); Chloride 105 mEq/L (98-109); Globulin 3.8 g/dL (2.4-3.5); Glucose 89 mg/dL (70-99); Osmolality,Calculated 290 (280-300); Sodium 140 mEq/L (136-145); Total Protein 5.8 g/dL (6.0-8.3); eGFR For African Americans > 60 (> 60); eGFR For Non-African Americans > 60 (> 60)
[2016-12-22] MEDS: Levofloxacin 750 MG/150 ML 750 MG/150 ML BAG IVPB SCH (07:43)
[2016-12-22] MEDS: *HR* LORazepam 0.5 MG TABLET PO SCH (07:44)
[2016-12-22] MEDS: Metoprolol XL (24 HR) Succ 25 MG TAB.ER.24H PO SCH (07:44)
[2016-12-22] MEDS: Sennosides/Docusate Sodium TABLET PO SCH (07:44)
[2016-12-22] MEDS: Nicotine 14 MG PATCH.TD24 TD SCH (07:44)
[2016-12-22] MEDS: Budesonide/Formoterol 160/4.5 MDI IH SCH (07:47)
[2016-12-22 08:04] VITALS: BP 148/94
--- NOTE | 2016-12-22 10:14 | Discharge Summary ---
Date of Encounter: 12/22/16 Time of Encounter: 09:56 - Discharge Diagnosis (1) Sepsis Priority: Primary Status: Resolved Qualifiers: Sepsis type: Haemophilus influenzae Qualified Code(s): A41.3 - Sepsis due to Hemophilus influenzae (2) Acute and chronic respiratory failure Priority: Primary Status: Acute Qualifiers: Respiratory failure complication: hypoxia Qualified Code(s): J96.21 - Acute and chronic respiratory failure with hypoxia (3) Acute exacerbation of chronic obstructive airways disease Priority: Primary Status: Resolved (4) Pneumonia Priority: Primary Status: Acute Qualifiers: Pneumonia type: due to Haemophilus influenzae Laterality: right Lung location: lower lobe of lung Qualified Code(s): J14 - Pneumonia due to Hemophilus influenzae (5) Small cell 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 Priority: Secondary Status: Acute (6) Sinus tachycardia Priority: Secondary Status: Acute (7) Thoracic compression fracture Priority: Secondary Status: Acute Qualifiers: Encounter type: initial encounter Fracture type: closed Qualified Code(s) : S22.000A - Wedge compression fracture of unspecified thoracic vertebra, initial encounter for closed fracture (8) Smoking Priority: Secondary Status: Chronic - Discharge Medications Prescriptions: Oxycodone HCl/Acetaminophen [Endocet 10-325 mg Tablet] 1 each PO Q6HR PRN #20 tablet PRN Reason: Pain Amoxicillin/Clavulanate [Augmentin] 875 mg PO BIDWM #8 tablet Metoprolol XL (24 HR) Succ [Toprol Xl] 25 mg PO DAILY #30 tab.er.24h Nicotine Patch [Nicoderm] 14 mg TD DAILY #30 patch.td24 Polyethylene Glycol 3350 [MiraLAX] 17 gm PO DAILY PRN #30 powd.pack PRN Reason: Constipation Sennosides/Docusate Sodium [Senna-Docusate Sodium Tablet] 2 each PO BID PRN #60 tablet PRN Reason: Constipation Home Medications: DULoxetine [Cymbalta] 30 mg PO HS 02/15/16 [History] Trazodone HCl 200 mg PO HS 02/15/16 [History] Melatonin/Pyridoxine HCl (B6) [Melatonin 3 mg Tablet] 3 mg PO HS 05/02/16 [ History] Albuterol Neb [Proventil Neb] 2.5 mg IH Q6H PRN 10/14/16 [History] Albuterol Sulfate [Albuterol Inhaler] 2 puff IH Q6H PRN 10/14/16 [History] Budesonide/Formoterol 160/4.5 [Symbicort 160/4.5] 2 puff IH BIDR 10/14/16 [ History] Oxygen 2 l .ROUTE AD 10/14/16 [History] Tiotropium [Spiriva] 1 puff IH DAILY 10/14/16 [History] HydrOXYzine 25 mg PO HS #30 tablet 11/20/16 [Rx] Ondansetron [Zofran ODT] 8 mg SL Q4HR PRN #20 tab.rapdis 11/20/16 [Rx] Dexamethasone [Decadron] 4 mg PO BID #30 tab 11/27/16 [Rx] Magic Mouthwash [Magic Mouthwash BLM] 10 ml PO QID PRN #240 ml 11/27/16 [Rx] LORazepam [Ativan] 0.5 mg PO BID #60 tablet 11/29/16 [Rx] Ascorbate Calcium [Vitamin C] 500 mg PO DAILY 12/14/16 [History] Amoxicillin/Clavulanate [Augmentin] 875 mg PO BIDWM #8 tablet 12/22/16 [Rx] Metoprolol XL (24 HR) Succ [Toprol Xl] 25 mg PO DAILY #30 tab.er.24h 12/22/16 [ Rx] Nicotine Patch [Nicoderm] 14 mg TD DAILY #30 patch.td24 12/22/16 [Rx] Oxycodone HCl/Acetaminophen [Endocet 10-325 mg Tablet] 1 each PO Q6HR PRN #20 tablet 12/22/16 [Rx] Polyethylene Glycol 3350 [MiraLAX] 17 gm PO DAILY PRN #30 powd.pack 12/22/16 [Rx ] Sennosides/Docusate Sodium [Senna-Docusate Sodium Tablet] 2 each PO BID PRN #60 tablet 12/22/16 [Rx] Allergies/Adverse Reactions: 3 Allergy/AdvReac Type Severity Reaction Status Date / Time No Known Allergies Allergy Verified 12/14/16 17:49 Date of admission: 12/17/16 09:32 Primary care physician: Lilibeth Templeton CNP Consults: 12/17/16 19:48 Consult to Physician [CONS] Routine Consulting Provider: Carlos Wagner Jr Reason for Consult: T8 and T12 compression fx. T8 burst fracture. T11 abnormality which may be mets from lung ca. I have spoken with pain management,who said he would speak with you, so you may already be aware. She is currently undergoing chemo for lung ca. she is tired of being in the hospital and wants to be discharged in the am. If surgery is an option, she will need pulmonology consult. Call Completed: No 12/19/16 10:43 Consult to Oncology [CONS] Routine Consulting Provider: [facility] Reason for Consult: Lung cancer status post recent chemotherapy now with sepsis Call Completed: Yes - Patient Status Disposition: Home Health Service Condition: Good Overall status at discharge: patient is back to baseline - Discharge Instructions Follow Up With: Belle Farrell MD [Partnered Physician] - 12/27/16 3:15 pm Carlos Wagner Jr, MD [Partnered Physician] - 12/27/16 10:15 am Lilibeth Templeton CNP [Primary Care Provider] - 12/31/16 3:45 pm - Diet and Activity Activity: as per physical therapy, increase activity as tolerated Diet: low salt diet Hospital course: Ms. Keenan is a 61 year old female with history of COPD on home oxygen, recently diagnosed small cell lung cancer presents to the emergency room wityh progressively worsening SOB and CP. CT scan in the emergency room showed Rt sided opacity and concerning for airspace disease and no evidence of pulmonary embolism. Pt was admitted to regular telemetry with COPD exacerbation and pain control for her thorasic compression fracture. Apparently tt went into severe sepsis with T max 102.9 and source of inf as pneumonia. She was transferred to step down unit for further care. She was placed on empirical abx Cefepime + Levaquin and IV steroids. Pt symptoms started improving slowly. She is back to baseline regarding her SOB bruce. She is currently on 2 lit home O2 and doing well. Pt was seen by PT / OT who recommend home PT / OT. So will arrange for home health services. Her pain is also well controlled with current regimen. - Time Spent with Patient Total time spent providing and/or coordinating discharge services: - Constitutional Vitals: Temp Pulse Resp BP Pulse Ox 98.0 F 97 18 148/94 93 12/22/16 07:59 12/22/16 07:59 12/22/16 07:59 12/22/16 07:59 12/22/16 07:59 General appearance: Present: cachectic, A&O X 3, answers questions appropriately - Head Head exam: Present: atraumatic, normal inspection - Respiratory Respiratory exam: Present: decreased breath sounds, wheezes (mild to mdoerate). Absent: chest wall tenderness, rales, respiratory distress, rhonchi - Cardiovascular Cardiovascular exam: Present: RRR, +S1, +S2. Absent: systolic murmur - GI/Abdominal GI/Abdominal exam: Present: normal bowel sounds, soft. Absent: rebound, rigid, tenderness - Extremities Exam Extremities exam: Absent: calf tenderness, pedal edema, tenderness - Back Exam Back exam: Absent: CVA tenderness (L), CVA tenderness (R) - Neurological Exam Neurological exam: Present: alert, oriented X3 - Psychiatric Psychiatric exam: Present: normal affect, normal mood
--- NOTE | 2016-12-22 10:16 | Physician Discharge Referral ---
Home Health/Hosp Referral Info Transfer to: Home Health Provider in Charge Post Discharge: PCP - Diagnosis (1) Sepsis Status: Resolved (2) Acute and chronic respiratory failure Status: Acute (3) Acute exacerbation of chronic obstructive airways disease Status: Resolved (4) Pneumonia Status: Acute (5) Small cell 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 Status: Acute (6) Sinus tachycardia Status: Acute (7) Thoracic compression fracture Status: Acute (8) Smoking Status: Chronic - Respiratory Orders Smoking Cessation: Smoking cessation has been advised. For more information, call the [place] Tobacco Quit Line at 3-868-YHTI-NOW. - Services Needed Following services are medically necessary services: Nursing, Physical Therapy, Occupational Therapy - Transfer Medications Prescriptions: Oxycodone HCl/Acetaminophen [Endocet 10-325 mg Tablet] 1 each PO Q6HR PRN #20 tablet PRN Reason: Pain Amoxicillin/Clavulanate [Augmentin] 875 mg PO BIDWM #8 tablet Metoprolol XL (24 HR) Succ [Toprol Xl] 25 mg PO DAILY #30 tab.er.24h Nicotine Patch [Nicoderm] 14 mg TD DAILY #30 patch.td24 Polyethylene Glycol 3350 [MiraLAX] 17 gm PO DAILY PRN #30 powd.pack PRN Reason: Constipation Sennosides/Docusate Sodium [Senna-Docusate Sodium Tablet] 2 each PO BID PRN #60 tablet PRN Reason: Constipation Home Medications: DULoxetine [Cymbalta] 30 mg PO HS 02/15/16 [History] Trazodone HCl 200 mg PO HS 02/15/16 [History] Melatonin/Pyridoxine HCl (B6) [Melatonin 3 mg Tablet] 3 mg PO HS 05/02/16 [ History] Albuterol Neb [Proventil Neb] 2.5 mg IH Q6H PRN 10/14/16 [History] Albuterol Sulfate [Albuterol Inhaler] 2 puff IH Q6H PRN 10/14/16 [History] Budesonide/Formoterol 160/4.5 [Symbicort 160/4.5] 2 puff IH BIDR 10/14/16 [ History] Oxygen 2 l .ROUTE AD 10/14/16 [History] Tiotropium [Spiriva] 1 puff IH DAILY 10/14/16 [History] HydrOXYzine 25 mg PO HS #30 tablet 11/20/16 [Rx] Ondansetron [Zofran ODT] 8 mg SL Q4HR PRN #20 tab.rapdis 11/20/16 [Rx] Dexamethasone [Decadron] 4 mg PO BID #30 tab 11/27/16 [Rx] Magic Mouthwash [Magic Mouthwash BLM] 10 ml PO QID PRN #240 ml 11/27/16 [Rx] LORazepam [Ativan] 0.5 mg PO BID #60 tablet 11/29/16 [Rx] Ascorbate Calcium [Vitamin C] 500 mg PO DAILY 12/14/16 [History] Amoxicillin/Clavulanate [Augmentin] 875 mg PO BIDWM #8 tablet 12/22/16 [Rx] Metoprolol XL (24 HR) Succ [Toprol Xl] 25 mg PO DAILY #30 tab.er.24h 12/22/16 [ Rx] Nicotine Patch [Nicoderm] 14 mg TD DAILY #30 patch.td24 12/22/16 [Rx] Oxycodone HCl/Acetaminophen [Endocet 10-325 mg Tablet] 1 each PO Q6HR PRN #20 tablet 12/22/16 [Rx] Polyethylene Glycol 3350 [MiraLAX] 17 gm PO DAILY PRN #30 powd.pack 12/22/16 [Rx ] Sennosides/Docusate Sodium [Senna-Docusate Sodium Tablet] 2 each PO BID PRN #60 tablet 12/22/16 [Rx] Allergies/Adverse Reactions: 3 Allergy/AdvReac Type Severity Reaction Status Date / Time No Known Allergies Allergy Verified 12/14/16 17:49 Certification: Further, I certify that my clinical findings support that this patient is homebound (i.e. absences from home require considerable and taxing effort and are for medical reasons or [employer] services or infrequently or short duration when for other reasons) because: Homebound Reason: Patient requires assistance of a person or device to safely leave home Attestation: My signature below is to certify that this patient is under my care and that I, or nurse practitioner, or a physician's emergency veterinary assistant working with me, has a face-to -face encounter with this patient.
== END 2016-12-22 14:50 | disposition home health service (06) | DRG 871 ==
LOC: 3BNU 17:47 → EMEROO 17:47 → 3BNU 22:49 → SUATTDRO 12-17 09:32 → 2NNU 12-19 06:25
PROVIDERS: ADMIT Family Medicine; ATTEND Family Medicine

== ENCOUNTER 2017-01-08 20:07 | Inpatient (IN) ==
--- NOTE | 2017-01-08 20:45 | Emergency Department Note ---
Disposition Clinical Impression: HCAP (healthcare-associated pneumonia) Sepsis Qualifiers: Sepsis type: sepsis due to unspecified organism Qualified Code(s): A41.9 - Sepsis, unspecified organism Disposition: Admitted As Inpatient Condition: Good Time of Disposition: 23:07 SOB HPI - General Chief Complaint: ED Shortness of Breath/Dyspnea Stated Complaint: SHORTNESS OF BREATH Time Seen by Provider: 01/08/17 20:10 Source: patient Limitations: no limitations Nursing Notes Reviewed: Yes Vital Signs Reviewed: Yes - History of Present Illness 61-year-old female history of lung cancer currently undergoing chemotherapy and COPD on 2 L home oxygen supplementation presents to the ED complaining of a coffin difficulty breathing. Reports increase shortness of breath and cough worse over the past 24 hours. She had contacted her oncologist Dr. Beltrán who instructed her to come to the emergency department for further evaluation. She denies any chest pain. She was recently hospitalized a few weeks ago. She has had a history of pneumonia as well. She has gone through 3 rounds of chemotherapy. Denies any other complaints such as abdominal pain, nausea, vomiting. She does admit to some constipation as she is on a lot of pain medications which she attributes to. Denies any history of blood clots, recent long-distance travel or surgery. Pt Subjective Complaint: cough - Related Data Home Medications Medication Instructions Recorded Confirmed DULoxetine [Cymbalta] 30 mg PO HS 02/15/16 01/08/17 Trazodone HCl 200 mg PO HS 02/15/16 01/08/17 Melatonin/Pyridoxine HCl (B6) 3 mg PO HS 05/02/16 01/08/17 [Melatonin 3 mg Tablet] Albuterol Neb [Proventil Neb] 2.5 mg IH Q6H PRN 10/14/16 01/08/17 Albuterol Sulfate [Albuterol 2 puff IH Q6H PRN 10/14/16 01/08/17 Inhaler] Budesonide/Formoterol 160/4.5 2 puff IH BIDR 10/14/16 01/08/17 [Symbicort 160/4.5] Oxygen 2 l NS AD 10/14/16 01/08/17 Tiotropium [Spiriva] 18 mcg IH DAILY 10/14/16 01/08/17 Ascorbate Calcium [Vitamin C] 500 mg PO DAILY 12/14/16 01/08/17 Oxycodone HCl/Acetaminophen 1 each PO Q8H 01/08/17 01/08/17 [Endocet 10-325 mg Tablet] Previous Rx's Medication Instructions Recorded Ondansetron [Zofran ODT] 8 mg SL Q4HR PRN #20 tab.rapdis 11/20/16 Dexamethasone [Decadron] 4 mg PO BID #30 tab 11/27/16 Magic Mouthwash [Magic Mouthwash 10 ml PO QID PRN #240 ml 11/27/16 BLM] LORazepam [Ativan] 0.5 mg PO BID #60 tablet 11/29/16 Furosemide [Lasix] 20 mg PO DAILY PRN #15 tablet 12/22/16 Metoprolol XL (24 HR) Succ [Toprol 25 mg PO DAILY #30 tab.er.24h 12/22/16 Xl] Nicotine Patch [Nicoderm] 14 mg TD DAILY #30 patch.td24 12/22/16 Polyethylene Glycol 3350 [MiraLAX] 17 gm PO DAILY PRN #30 powd.pack 12/22/16 Sennosides/Docusate Sodium 2 each PO BID PRN #60 tablet 12/22/16 [Senna-Docusate Sodium Tablet] Calcium Carbonate/Vitamin D3 2 each PO DAILY #60 tablet 12/26/16 [Calcium 500 + Vit D Caplet] Oxycodone HCl 10 mg PO TID #90 tab 12/26/16 Azithromycin [Azithromycin 6-Tab 250 mg PO PER PKG DI #6 tab 01/07/17 Pack] Allergies Allergy/AdvReac Type Severity Reaction Status Date / Time No Known Allergies Allergy Verified 12/14/16 17:49 All systems ED: reviewed and negative except as stated. Review of Systems: As Per HPI Constitutional: Reports: fever. Denies: chills Eyes: Denies: eye pain, vision change ENT ED: Reports: congestion. Denies: dysphagia Cardiovascular: Denies: chest pain, dyspnea on exertion Respiratory: Reports: cough, dyspnea Gastrointestinal: Reports: constipation. Denies: abdominal pain, nausea, vomiting Genitourinary: Denies: urgency, dysuria Musculoskeletal: Denies: back pain, neck pain Integumentary: Denies: rash, abrasion Neurological: Denies: headache Past Medical History - Past Medical History Attestation: Yes The following information was validated with the patient. Source: patient Medical history: Reports: cancer, COPD, hypertension Surgical history: Reports: hysterectomy Psychiatric history: Reports: anxiety, depression MANAGING PARTNER history: Reports: no MANAGING PARTNER history - Social History Smoking Status: Former smoker Smokeless Tobacco Status: No Alcohol use: Reports: none Drug use: Reports: none Physical Exam - General Limitations: no limitations General appearance: alert, in no apparent distress, other (2L nasal cannula) - Head Head exam: atraumatic, normocephalic, normal inspection - Eye Eye exam: Present: normal appearance, PERRL, EOMI. Absent: scleral icterus - ENT ENT exam: normal exam, normal oropharynx, mucous membranes moist, TM's normal bilaterally - Neck Neck exam: Present: normal inspection, full ROM, trachea midline - Chest Chest inspection: Present: normal inspection, symmetric chest wall rise - Respiratory Respiratory exam: Present: other (coarse breath sounds bilaterally). Absent: respiratory distress - Cardiovascular Cardiovascular exam: Present: regular rate, normal rhythm, normal heart sounds - Abdominal Exam Abdominal exam: Present: soft, Non-Tender, normal bowel sounds. Absent: tenderness, distention, guarding, rebound, rigidity - Extremities Exam Extremities exam: Present: normal inspection, full ROM, normal capillary refill. Absent: tenderness, pedal edema, calf tenderness - Back Exam Back exam: Present: normal inspection, full ROM. Absent: tenderness - Neurological Exam Neurological exam: Present: alert, oriented X3 - Skin Skin exam: Present: warm, dry, intact, normal color Course - Reevaluation(s) Reevaluation #1: She has a leukocytosis of 13 with neutrophilia. Lactate is normal 1.6. Labs or otherwise unremarkable. Chest x-ray shows infiltrates in the right upper lobe and right middle lobe concerning for ammonia. She meets 3 of 4 criteria for sepsis. She received a 30 mL per kilogram fluid bolus of 1.5 L. She remains mildly tachycardic 120s with a stable blood pressure systolic greater than 120. Patient will be admitted for healthcare acquired pneumonia. Started on Zosyn and vancomycin for empiric antibiotic coverage. Patients in agreement with plan for admission to hospital for further treatment and management. - Consultations Consultation #1: Spoke with on-call hospitalist nina Matthews to admit for healthcare acquired pneumonia and sepsis. No further orders at this time. No additional antibiotics at this time only vancomycin and Zosyn. Time: 23:06 Vital Signs Temperature 99.7 F H 01/08/17 20:09 Pulse Rate 112 01/08/17 20:09 Respiratory Rate 22 01/08/17 20:09 Blood Pressure 136/73 01/08/17 20:09 O2 Sat by Pulse Oximetry 96 01/08/17 20:09 Temperature 98.0 F 01/09/17 06:44 Pulse Rate 94 01/09/17 06:44 Respiratory Rate 15 01/09/17 06:44 Blood Pressure 114/73 01/09/17 06:44 O2 Sat by Pulse Oximetry 96 01/09/17 06:44 Oxygen Delivery Oxygen Delivery Nasal Cannula Shortness of Breath/Dyspnea - Medical Records Medical records reviewed: Yes I reviewed the patient's medical records. - Lab Data Lab results reviewed: Yes I reviewed the patient's lab results. Result diagrams: 01/09/17 04:30 01/09/17 04:30 Lab Results 01/08/17 01/08/17 01/08/17 Range/Units 20:45 20:49 20:49 WBC 13.5 H (4.3-11.1) K/mcL RBC 3.27 L (3.82-4.97) M/mcL Hgb 9.7 L (11.5-15.4) g/dL Hct 30.9 L (35.3-44.9) % MCV 94.5 (83.0-100.0) fL MCH 29.7 (28.0-33.3) pg MCHC 31.4 L (31.6-35.5) g/dL RDW 13.7 (11.5-14.5) % Plt Count 273 (140-400) K/mcL MPV 9.2 L (9.4-12.4) fL Immature Gran % 0.4 (0-4) % Seg Neutrophils % 79.8 % Lymphocytes % 11.5 % Monocytes % 7.6 % Eosinophils % 0.3 % Basophils % 0.4 % Neutrophils # 10.8 H (1.6-8.9) K/mcL Lymphocytes # 1.6 (0.6-4.6) K/mcL Monocytes # 1.0 (0.0-1.3) K/mcL Eosinophils # 0.0 (0.0-0.6) K/mcL Basophils # 0.1 (0.0-0.2) K/mcL Toxic Granulation Present A (Not Present) Dohle Bodies Present A (Not Present) Sodium 138 (136-145) mEq/L Potassium 3.8 (3.5-4.5) mEq/L Chloride 103 (98-109) mEq/L Carbon Dioxide 26 (19-29) mEq/L BUN 11 (7-20) mg/dL Creatinine 0.61 (0.57-1.11) mg/dL Est GFR ( Amer) > 60 (> 60) Est GFR (Non-Af Amer) > 60 (> 60) BUN/Creatinine Ratio 18 (6-26) Glucose 111 H (70-99) mg/dL Calculated Osmolality 286 (280-300) Lactic Acid (0.5-2.2) mmol/L Calcium 9.1 (8.6-10.8) mg/dL Phosphorus 1.9 L (2.3-4.7) mg/dL Magnesium 1.5 L (1.6-2.6) mg/dL Total Bilirubin 0.4 (0.2-1.2) mg/dL Direct Bilirubin 0.2 (0.0-0.5) mg/dL Indirect Bilirubin 0.2 (0.0-1.2) mg/dL AST 11 (5-34) Units/L ALT 16 (0-55) Units/L Alkaline Phosphatase 195 H (38-126) Units/L Troponin I (0-0.03) ng/mL Serum Total Protein 6.3 (6.0-8.3) g/dL Albumin 2.8 L (3.5-5.0) g/dL Globulin 3.5 (2.4-3.5) g/dL Albumin/Globulin Ratio 0.8 L (1.1-2.2) Urine Color Yellow (Yellow) Urine Clarity Clear (Clear) Urine pH 6.0 (5.0-8.0) pH Units Ur Specific [place] 1.024 (1.010-1.025) Urine Protein Negative (Neg-Trace) mg/dL Urine Glucose (UA) 250 H (Normal) mg/dL Urine Ketones Negative (Negative) mg/dL Urine Blood Negative (Negative) Urine Nitrite Negative (Negative) Urine Bilirubin Negative (Negative) Urine Urobilinogen Normal (Normal) mg/dL Ur Leukocyte Esterase Negative (Negative) Ur Culture Indicated? NO (NO) 01/08/17 01/08/17 Range/Units 20:49 20:49 WBC (4.3-11.1) K/mcL RBC (3.82-4.97) M/mcL Hgb (11.5-15.4) g/dL Hct (35.3-44.9) % MCV (83.0-100.0) fL MCH (28.0-33.3) pg MCHC (31.6-35.5) g/dL RDW (11.5-14.5) % Plt Count (140-400) K/mcL MPV (9.4-12.4) fL Immature Gran % (0-4) % Seg Neutrophils % % Lymphocytes % % Monocytes % % Eosinophils % % Basophils % % Neutrophils # (1.6-8.9) K/mcL Lymphocytes # (0.6-4.6) K/mcL Monocytes # (0.0-1.3) K/mcL Eosinophils # (0.0-0.6) K/mcL Basophils # (0.0-0.2) K/mcL Toxic Granulation (Not Present) Dohle Bodies (Not Present) Sodium (136-145) mEq/L Potassium (3.5-4.5) mEq/L Chloride (98-109) mEq/L Carbon Dioxide (19-29) mEq/L BUN (7-20) mg/dL Creatinine (0.57-1.11) mg/dL Est GFR ( Amer) (> 60) Est GFR (Non-Af Amer) (> 60) BUN/Creatinine Ratio (6-26) Glucose (70-99) mg/dL Calculated Osmolality (280-300) Lactic Acid 1.6 (0.5-2.2) mmol/L Calcium (8.6-10.8) mg/dL Phosphorus (2.3-4.7) mg/dL Magnesium (1.6-2.6) mg/dL Total Bilirubin (0.2-1.2) mg/dL Direct Bilirubin (0.0-0.5) mg/dL Indirect Bilirubin (0.0-1.2) mg/dL AST (5-34) Units/L ALT (0-55) Units/L Alkaline Phosphatase (38-126) Units/L Troponin I 0.00 (0-0.03) ng/mL Serum Total Protein (6.0-8.3) g/dL Albumin (3.5-5.0) g/dL Globulin (2.4-3.5) g/dL Albumin/Globulin Ratio (1.1-2.2) Urine Color (Yellow) Urine Clarity (Clear) Urine pH (5.0-8.0) pH Units Ur Specific [place] (1.010-1.025) Urine Protein (Neg-Trace) mg/dL Urine Glucose (UA) (Normal) mg/dL Urine Ketones (Negative) mg/dL Urine Blood (Negative) Urine Nitrite (Negative) Urine Bilirubin (Negative) Urine Urobilinogen (Normal) mg/dL Ur Leukocyte Esterase (Negative) Ur Culture Indicated? (NO) - Radiology Data Radiology results reviewed: Yes I reviewed the patient's radiology results. Chest X-Ray 01/08/17 20:33 IMPRESSION: Scattered right lung opacities suspicious for pneumonia. Well-positioned left PICC. D/ / 01/08/2017 21:31:53 Nelson Cabrales MD / ang Interpreting Provider: Nelson Cabrales MD - EKG Data EKG attestation: Yes I reviewed and interpreted this EKG. EKG results narrative: EKG performed 2011 sinus tachycardia 1 13 bpm normal axis, intervals are within normal limits, no ST elevations or depression, no T wave inversion, good R wave progression. Compared to old EKG performed 12/14/2016 shows consistent findings sinus tachycardia 10 5 bpm. No acute ischemic changes. Critical Care Time Critical Care Time: Yes Total Critical Care Time: 35 Attestation: Critical care performed: Time is exclusive of separately billable procedures. Time includes: direct patient care, patient reassessment, coordination of patient care, interpretation of data (laboratory data, radiology data, and respiratory data), review of patient's medical records, medical consultation and documentation of patient care. Procedures included in critical care time: Procedures excluded from critical care time: Attestation Statement - Attestation Attestation: Branodn Watkins MD, personally evaluated this patient and discussed their management with the resident physician. I reviewed the resident's note and agree with the documented findings, medical decision making, and plan of care. 61-year-old female with history of lung cancer on chemotherapy presents to the emergency department complaining that she thinks she has pneumonia again. She was last in the hospital about 3 weeks ago. She complains of increased shortness of breath and increased cough with yellow sputum production and subjective fever. She thinks these symptoms started a little bit yesterday but became acutely worse this afternoon. No chest pain. She is on home oxygen at 2 L/m by nasal cannula continuously. On examination patient is a well-developed thin female in no acute distress. She is alert and oriented 3. There is no cyanosis or diaphoresis. Breath sounds are equal bilaterally with some coarse bilateral rales and rhonchi. No expiratory wheezes noted. Heart regular rate and rhythm. Abdomen is soft and nontender with normal bowel sounds. No pedal edema. Chest x-ray shows right upper lobe and right mid lung opacities consistent with pneumonia. Labs reviewed. Lactic acid normal. Blood cultures obtained and IV fluids initiated. Antibiotics initiated. We will consult the hospitalist for admission. The hospitalist, Dr. Cassidy, was consulted and accepted admission of the patient. Sepsis Reassessment Note - Evaluation Sepsis Screen: Sepsis Risk Current Stage of Sepsis: sepsis Reason for ruling out sepsis: Immuno compromised currently undergoing chemotherapy for lung cancer, tachycardic mild elevation in temperature and tachypneic Possible Source of Sepsis: pulmonary - Focused Exam Date of Encounter: 01/08/17 Time of Encounter: 20:33 Vital Signs: Vital Signs Temp Pulse Resp BP Pulse Ox 01/08/17 21:43 106 20 127/74 97 01/08/17 20:09 99.7 F H 112 22 136/73 96 Respiratory Exam: Present: rhonchi, crackles. Absent: respiratory distress Cardiovascular Exam: Present: RRR Capillary Refill: < 2 seconds Peripheral Pulse Strength: 3+ normal Peripheral Pulse Location: Radial Skin Exam: normal turgor
[2017-01-08 21:03] LABS: Bilirubin,Urine Negative (Negative); Blood,Urine Negative (Negative); Clarity,Urine Clear (Clear); Color,Urine Yellow (Yellow); Glucose,Urine (UA) 250 mg/dL (Normal); Ketones,Urine Negative (Negative); Leukocyte Esterase,Urine Negative (Negative); Nitrite,Urine Negative (Negative); Protein,Urine Negative (Neg-Trace); Specific Gravity,Urine 1.024 (1.010-1.025); Urobilinogen,Urine Normal (Normal)
[2017-01-08 21:03] LABS: Basophils # 0.1 K/mcL (0.0-0.2); Basophils % 0.4 %; Eosinophils % 0.3 %; Hematocrit 30.9 % (35.3-44.9); Hemoglobin 9.7 g/dL (11.5-15.4); Immature Granulocytes % 0.4 % (0-4); Lymphocytes # 1.6 K/mcL (0.6-4.6); Lymphocytes % 11.5 %; Mean Corpuscular HGB Conc 31.4 g/dL (31.6-35.5); Mean Corpuscular Hemoglobin 29.7 pg (28.0-33.3); Mean Corpuscular Volume 94.5 fL (83.0-100.0); Mean Platelet Volume 9.2 fL (9.4-12.4); Monocytes % 7.6 %; Platelet Count 273 K/mcL (140-400); Red Blood Count 3.27 M/mcL (3.82-4.97); Red Cell Distribution Width 13.7 % (11.5-14.5); Segmented Neutrophils % 79.8 %
[2017-01-08] MEDS ORDERED: 0.9 % Sodium Chloride 500 ML IVC ONE (21:03)
[2017-01-08] MEDS ORDERED: 0.9 % Sodium Chloride 1,000 ML IVC ONE (21:03)
[2017-01-08 21:05] LABS: Neutrophils # 10.8 K/mcL (1.6-8.9)
[2017-01-08 21:22] LABS: Alanine Aminotransferase 16 Units/L (0-55); Albumin 2.8 g/dL (3.5-5.0); Albumin/Globulin Ratio 0.8 (1.1-2.2); Alkaline Phosphatase 195 Units/L (38-126); Aspartate Amino Transferase 11 Units/L (5-34); BUN/Creatinine Ratio 18 (6-26); Bilirubin,Direct 0.2 mg/dL (0.0-0.5); Bilirubin,Indirect 0.2 mg/dL (0.0-1.2); Bilirubin,Total 0.4 mg/dL (0.2-1.2); Blood Urea Nitrogen 11 mg/dL (7-20); Calcium 9.1 mg/dL (8.6-10.8); Carbon Dioxide 26 mEq/L (19-29); Chloride 103 mEq/L (98-109); Globulin 3.5 g/dL (2.4-3.5); Glucose 111 mg/dL (70-99); Magnesium 1.5 mg/dL (1.6-2.6); Osmolality,Calculated 286 (280-300); Phosphorous 1.9 mg/dL (2.3-4.7); Potassium 3.8 mEq/L (3.5-4.5); Sodium 138 mEq/L (136-145); Total Protein 6.3 g/dL (6.0-8.3); eGFR For African Americans > 60 (> 60); eGFR For Non-African Americans > 60 (> 60)
[2017-01-08 21:23] LABS: Dohle Bodies Present (Not Present); Toxic Granulation Present (Not Present)
[2017-01-08] MEDS ORDERED: Piperacillin/Tazobactam 3.375 GM in D5% in Water 50 ML IVPB ONE (21:58)
[2017-01-08] MEDS ORDERED: Vancomycin 750 MG in D5% in Water 250 ML IVPB ONE (21:58)
[2017-01-08] MEDS ORDERED: Ipratropium/Albuterol Neb 3 ML ONE (22:31)
[2017-01-08] MEDS ORDERED: Ipratropium/Albuterol Neb 3 ML IH ONE (22:47)
[2017-01-08] MEDS ORDERED: *HR* OxyCODONE/APAP 10/325 TABLET PO ONE (23:04)
[2017-01-08] MEDS ORDERED: Naloxone 0.4 MG/ML INJ IVP PRN (23:23)
[2017-01-08] MEDS ORDERED: Ondansetron 4 MG/2 ML VIAL IVP PRN (23:23)
[2017-01-08] MEDS ORDERED: Acetaminophen 325 MG TABLET PO PRN (23:23)
[2017-01-08] MEDS ORDERED: Magic Mouthwash 10 ML UD Cup PO PRN (23:25)
[2017-01-08] MEDS ORDERED: Furosemide 20 MG TABLET PO PRN (23:25)
[2017-01-08] MEDS ORDERED: Magnesium Sulfate 2 GM in D5% in Water 100 ML IVPB ONE (23:30)
[2017-01-08] MEDS ORDERED: Nicotine 14 MG PATCH.TD24 TD SCH (23:30)
[2017-01-08] MEDS ORDERED: NON-FORMULARY MEDICATION 1 EACH EACH (Oxygen [Oxygen] 2 L) NS SCH (23:30)
--- NOTE | 2017-01-08 23:31 | Internal Med History&Physical ---
Date of Encounter: 01/08/17 Time of Encounter: 23:20 Assessment and Plan (1) HCAP (healthcare-associated pneumonia) Current visit: Yes Status: Acute Healthcare associated pneumonia present on admission, possible gram-negative bacilli, secondary to small cell lung cancer - causing shortness of breath and cough Continue empiric IV Levaquin, IV Zosyn, IV Vancomycin, O2 via NC, DuoNeb breathing treatment Continue all home medications Chest x-ray - scattered right lung opacity suspicious for pneumonia EKG - sinus tachycardia with no acute ST-T changes Lactic acid - 1.6 WBC - 13.5 Troponin - 0.00 Oncology consult Cardiac telemetry, intake and output, continuous pulse ox, labs in a.m., monitor closely (2) Small cell 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 Current visit: Yes Status: Acute 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, stage IV Patient currently undergoing chemotherapy Oncology consult (3) COPD (chronic obstructive pulmonary disease) Current visit: Yes Status: Acute Acute COPD exacerbation, mild Continue DuoNeb breathing treatment, Symbicort, Spiriva, O2 via NC, empiric IV antibiotics Pulse ox, cardiac telemetry, monitor closely Qualifiers: COPD type: COPD with acute exacerbation Qualified Code(s): J44.1 - Chronic obstructive pulmonary disease with (acute) exacerbation (4) Hypertension Current visit: Yes Status: Chronic Essential hypertension, controlled, monitor Continue home dose of Toprol-XL Qualifiers: Hypertension type: essential hypertension Qualified Code(s): I10 - Essential (primary) hypertension (5) Smoking Current visit: Yes Status: Chronic Patient states she quit smoking about 2 months ago when she was diagnosed with lung cancer (6) DVT prophylaxis Current visit: Yes Status: Acute Lovenox subcutaneous Internal Medicine - H&P: HPI Chief complaint: Shortness of breath Admitted From: Emergency Dept Plans for Post Hospital Care: Home History of present illness: Ms. Keenan is a 61 year old female with past medical history of COPD oxygen dependent, hypertension, lung cancer undergoing chemotherapy, anxiety and depression. Patient presents to the ED with complaints of shortness of breath. Examined in the room. Patient is awake and alert. Not in any distress. Able to provide all history. No family members at bedside. Patient states she noticed that she was not feeling well yesterday. This afternoon she developed shortness of breath and productive cough with yellow colored sputum. Symptoms are gradually worsening. Shortness of breath is worse with exertion. No alleviating factors. Denies chest pain or palpitations. Denies headache or dizziness or abdominal pain or nausea or vomiting. Denies diarrhea. Patient complains of chills and subjective fever. No other associated symptoms. No other acute complaints. She was recently discharged after being treated for COPD exacerbation and pneumonia. Patient does have recurrent episodes of pneumonia. Initial workup in the ED is significant for elevated white count and scattered right lung opacities suspicious for pneumonia. Lactic acid is 1.6. O2 saturation is 98% on 2 L nasal cannula. Patient is being admitted for healthcare associated pneumonia. She will need IV antibiotics and breathing treatment. Continue all home medications. Patient has been explained about her condition and plan of care in detail. Understood and agreed. No unanswered questions. CODE STATUS full code. Past Med Surg Social Fam HX - Past Medical History Medical history: cancer, COPD, hypertension Psychiatric history: anxiety, depression - Past Surgical History Surgical History: hysterectomy - Social History Smoking Status: Former smoker Smokeless Tobacco Status: No Alcohol use: none Drug use: none - Family History Sister Living Status: Still Living Hx Family Cardiac Disorders: Yes (HTN) Hx Family Cancer: Yes (cervical) Mother Living Status: Father Living Status: Hx Family Cardiac Disorders: Yes Internal Medicine - H&P: Meds RX: DULoxetine [Cymbalta] 30 mg PO HS 02/15/16 [History] RX: Trazodone HCl 200 mg PO HS 02/15/16 [History] RX: Melatonin/Pyridoxine HCl (B6) [Melatonin 3 mg Tablet] 3 mg PO HS 05/02/16 [ History] RX: Albuterol Neb [Proventil Neb] 2.5 mg IH Q6H PRN 10/14/16 [History] RX: Albuterol Sulfate [Albuterol Inhaler] 2 puff IH Q6H PRN 10/14/16 [History] RX: Budesonide/Formoterol 160/4.5 [Symbicort 160/4.5] 2 puff IH BIDR 10/14/16 [ History] RX: Oxygen 2 l NS AD 10/14/16 [History] RX: Tiotropium [Spiriva] 18 mcg IH DAILY 10/14/16 [History] RX: Ondansetron [Zofran ODT] 8 mg SL Q4HR PRN #20 tab.rapdis 11/20/16 [Rx] RX: Dexamethasone [Decadron] 4 mg PO BID #30 tab 11/27/16 [Rx] RX: Magic Mouthwash [Magic Mouthwash BLM] 10 ml PO QID PRN #240 ml 11/27/16 [Rx] RX: LORazepam [Ativan] 0.5 mg PO BID #60 tablet 11/29/16 [Rx] RX: Ascorbate Calcium [Vitamin C] 500 mg PO DAILY 12/14/16 [History] Furosemide [Lasix] 20 mg PO DAILY PRN #15 tablet 12/22/16 [Rx] RX: Metoprolol XL (24 HR) Succ [Toprol Xl] 25 mg PO DAILY #30 tab.er.24h [Rx] RX: Nicotine Patch [Nicoderm] 14 mg TD DAILY #30 patch.td24 12/22/16 [Rx] RX: Polyethylene Glycol 3350 [MiraLAX] 17 gm PO DAILY PRN #30 powd.pack [Rx] Sennosides/Docusate Sodium [Senna-Docusate Sodium Tablet] 2 each PO BID PRN #60 tablet 12/22/16 [Rx] Calcium Carbonate/Vitamin D3 [Calcium 500 + Vit D Caplet] 2 each PO DAILY #60 tablet 12/26/16 [Rx] RX: Oxycodone HCl 10 mg PO TID #90 tab 12/26/16 [Rx] Azithromycin [Azithromycin 6-Tab Pack] 250 mg PO PER PKG DI #6 tab 01/07/17 [Rx] Oxycodone HCl/Acetaminophen [Endocet 10-325 mg Tablet] 1 each PO Q8H 01/08/17 [ History] 3 Allergy/AdvReac Type Severity Reaction Status Date / Time No Known Allergies Allergy Verified 12/14/16 17:49 All Systems PM: A 10-system review of systems was performed and is negative for pertinent findings except as documented above in the HPI. - Constitutional Constitutional: chills, fatigue, fever(s), weakness, no excessive sweating - EENT Eyes: no blurry vision - Cardiovascular Cardiovascular ROS IM: dyspnea, dyspnea on exertion, no chest pain, no claudication, no diaphoresis, no edema, no lightheadedness, no orthopnea, no palpitations, no paroxysmal nocturnal dyspnea, no syncope - Respiratory Respiratory: cough, dyspnea, dyspnea on exertion, wheezing, chest congestion, no hemoptysis - Gastrointestinal Gastrointestinal: no abdominal pain, no belching, no bloating, no diarrhea, no nausea, no vomiting - Genitourinary Genitourinary: no dysuria - Musculoskeletal Musculoskeletal ROS IM: no arthralgias, no back pain - Neurological Neurological ROS: no abnormal gait, no confusion, no dizziness, no numbness, no tingling - Constitutional Vitals: Temp Pulse Resp BP Pulse Ox 99.7 F H 106 20 127/74 97 01/08/17 20:09 01/08/17 21:43 01/08/17 21:43 01/08/17 21:43 01/08/17 21:43 General appearance: Present: cachectic, cooperative, A&O X 3, pleasant, no acute distress, underweight, answers questions appropriately - Head Head exam: Present: atraumatic - Eye Eye exam: Present: EOMI - ENT ENT exam: Present: mucous membranes dry - Respiratory Respiratory exam: Present: rhonchi (Mild bilateral), wheezes (Mild bilateral), tachypnea. Absent: accessory muscle use, rales, respiratory distress - Cardiovascular Cardiovascular exam: Present: RRR, +S1, +S2, tachycardia - GI/Abdominal GI/Abdominal exam: Present: soft. Absent: distended, firm, guarding, tenderness - Extremities Exam Extremities exam: Present: radial pulses palpable and symmetrical. Absent: calf tenderness, cyanotic, pedal edema - Neurological Exam Neurological exam: Present: alert, oriented X3, no focal deficits. Absent: facial droop, speech deficit Internal Med - H&P Results - Labs CBC & Chem 7: 01/08/17 20:49 01/08/17 20:49
[2017-01-08] MEDS: Ipratropium/Albuterol Neb 3 ML IH SCH (23:54)
[2017-01-09] MEDS: 0.9 % Sodium Chloride 1,000 ML IVC SCH ×2 (00:10→20:13)
[2017-01-09] MEDS: Levofloxacin 750 MG/150 ML 750 MG/150 ML BAG IVPB SCH ×2 (01:49→23:58)
[2017-01-09] MEDS: *HR* Morphine 2 MG/ML SYRINGE IVP PRN ×5 (03:01→23:47)
[2017-01-09] MEDS: Ipratropium/Albuterol Neb 3 ML IH SCH ×6 (04:31→23:32)
[2017-01-09 04:51] LABS: Hematocrit 25.6 % (35.3-44.9); Lymphocytes # 1.5 K/mcL (0.6-4.6); Mean Corpuscular HGB Conc 31.3 g/dL (31.6-35.5); Mean Corpuscular Hemoglobin 29.5 pg (28.0-33.3); Mean Corpuscular Volume 94.5 fL (83.0-100.0); Mean Platelet Volume 9.2 fL (9.4-12.4); Platelet Count 244 K/mcL (140-400); Red Blood Count 2.71 M/mcL (3.82-4.97); Red Cell Distribution Width 13.7 % (11.5-14.5)
[2017-01-09] MEDS: Sennosides/Docusate Sodium TABLET PO PRN (04:55)
[2017-01-09 05:03] LABS: BUN/Creatinine Ratio 13 (6-26); Blood Urea Nitrogen 7 mg/dL (7-20); Calcium 7.9 mg/dL (8.6-10.8); Carbon Dioxide 26 mEq/L (19-29); Chloride 108 mEq/L (98-109); Glucose 81 mg/dL (70-99); Magnesium 2.3 mg/dL (1.6-2.6); Osmolality,Calculated 283 (280-300); Potassium 3.7 mEq/L (3.5-4.5); Sodium 138 mEq/L (136-145); eGFR For African Americans > 60 (> 60); eGFR For Non-African Americans > 60 (> 60)
[2017-01-09 05:24] LABS: Monocytes # 0.4 K/mcL (0.0-1.3); Neutrophils # 8.8 K/mcL (1.6-8.9); Platelet Estimate Normal (Normal)
[2017-01-09] MEDS ORDERED: Vancomycin 1,000 MG in D5% in Water 250 ML IVPB SCH (06:00)
[2017-01-09] MEDS ORDERED: *HR* Enoxaparin 30 MG/0.3 ML SYRINGE SQ SCH (06:00)
[2017-01-09] MEDS ORDERED: Famotidine 20 MG/2 ML VIAL IVP SCH (06:00)
[2017-01-09] MEDS: Budesonide/Formoterol 160/4.5 MDI IH SCH ×2 (07:58→19:57)
[2017-01-09] MEDS: Tiotropium 18 MCG inhalation IH SCH (08:00)
[2017-01-09] MEDS ORDERED: Calcium 500 + Vit D PO SCH (09:00)
[2017-01-09] MEDS: Ascorbic Acid 500 MG TABLET PO SCH (09:40)
[2017-01-09] MEDS: *HR* LORazepam 0.5 MG TABLET PO SCH ×2 (09:40→20:13)
[2017-01-09] MEDS: Cholecalciferol (D-3) 1,000 UNIT TABLET PO SCH (09:40)
[2017-01-09] MEDS: Piperacillin/Tazobactam 3.375 GM in D5% in Water 50 ML IVPB SCH ×3 (09:41→23:59)
[2017-01-09] MEDS: *HR* OxyCODONE Immed Rel 5 MG TABLET PO SCH ×3 (09:41→20:12)
[2017-01-09] MEDS: Vancomycin 750 MG in D5% in Water 250 ML IVPB SCH ×2 (09:42→23:47)
--- NOTE | 2017-01-09 14:48 | Oncology Inp Consult Note ---
<Scarlet Laureano - Last Filed: 01/09/17 16:08> Date of Encounter: 01/09/17 Time of Encounter: 11:30 Assessment and Plan (1) Lung cancer Status: Acute Assessment and plan: Currently receiving treatment with Dr. 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 She was to receive repeat CT imaging following previous appointment with Dr. Betlrán but did not attend planned appointment. CT of the chest abdomen and pelvis today shows significant interval improvement of infiltrative right hilar mass, hepatic metastatic disease, and upper abdominal metastatic lymphadenopathy consistent with response to therapy, emphysema with new patchy multifocal right lung consolidative changes which may represent posttreatment pneumonitis, new trace right pleural effusion and signs of acute inflammation and stable mediastinal lymphadenopathy. We will continue treatment for suspected pneumonia, she is feeling better with first doses of antibiotics, appreciate assistance with hospitalist group in patients treatment plan of care. She is mildly anemic with hemoglobin 8, we will continue to monitor and consider transfusion for progressive drop in hemoglobin to 8 or less or if she becomes increasingly symptomatic. Her progressive worsening shortness of breath could be secondary to emphysema, infectious process, lung cancer, anemia, or the weight of these factors combined. Her neutrophilia may be secondary to Neulasta that she received following chemotherapy last week versus infectious process. Pain currently controlled with oral pain medication. Please refer to Dr. Beltrán's attestation below for additional details. Qualifiers: Qualified Code(s): C34.01 - Malignant neoplasm of right main bronchus - Data of Consult Requesting Physician: Ethan Batista Primary Care Provider: Lilibeth Templeton CNP - Consult Narrative Reason for consult: Stage IV small cell lung cancer History of present illness: Ms. Keenan is a 61 year old female with a past medical history of COPD, osteoporosis, small cell lung cancer, emphysema, pneumonia and a former smoker. She has been hospitalized multiple times with recurrent episodes of pneumonia. She is currently receiving chemotherapy treatment with carboplatin and etoposide and has completed 2 cycles treatment thus far. She was hospitalized in November 2016 for subacute compression fractures and enhancement of T11 process. She was scheduled to follow-up with [facility] but did not make it to her appointment. She will be receiving probably with chemotherapy. May consider possible consolidative radiation therapy at a later date. Following treatment on 01/03/2017 she began to experience worsening shortness of breath and a productive cough when she presented to the ER with concern for pneumonia. Denies recent fever, chest pain, nausea, vomiting or diarrhea. Past Med Surg Social Fam HX - Past Medical History Medical history: cancer, COPD, hypertension Psychiatric history: anxiety, depression - Past Surgical History Surgical History: hysterectomy - Social History Smoking Status: Former smoker Smokeless Tobacco Status: No Alcohol use: none Drug use: none - Family History Sister Living Status: Still Living Hx Family Cardiac Disorders: Yes (HTN) Hx Family Cancer: Yes (cervical) Mother Living Status: Age at : 68 Cause of : anureysm Father Living Status: Age at : 75 Hx Family Cardiac Disorders: Yes Medications and Allergies DULoxetine [Cymbalta] 30 mg PO HS 02/15/16 [History] Trazodone HCl 200 mg PO HS 02/15/16 [History] Melatonin/Pyridoxine HCl (B6) [Melatonin 3 mg Tablet] 3 mg PO HS 05/02/16 [ History] Albuterol Neb [Proventil Neb] 2.5 mg IH Q6H PRN 10/14/16 [History] Albuterol Sulfate [Albuterol Inhaler] 2 puff IH Q6H PRN 10/14/16 [History] Budesonide/Formoterol 160/4.5 [Symbicort 160/4.5] 2 puff IH BIDR 10/14/16 [ History] Oxygen 2 l NS AD 10/14/16 [History] Tiotropium [Spiriva] 18 mcg IH DAILY 10/14/16 [History] Ondansetron [Zofran ODT] 8 mg SL Q4HR PRN #20 tab.rapdis 11/20/16 [Rx] Dexamethasone [Decadron] 4 mg PO BID #30 tab 11/27/16 [Rx] Magic Mouthwash [Magic Mouthwash BLM] 10 ml PO QID PRN #240 ml 11/27/16 [Rx] LORazepam [Ativan] 0.5 mg PO BID #60 tablet 11/29/16 [Rx] Ascorbate Calcium [Vitamin C] 500 mg PO DAILY 12/14/16 [History] Furosemide [Lasix] 20 mg PO DAILY PRN #15 tablet 12/22/16 [Rx] Metoprolol XL (24 HR) Succ [Toprol Xl] 25 mg PO DAILY #30 tab.er.24h 12/22/16 [ Rx] Nicotine Patch [Nicoderm] 14 mg TD DAILY #30 patch.td24 12/22/16 [Rx] Polyethylene Glycol 3350 [MiraLAX] 17 gm PO DAILY PRN #30 powd.pack 12/22/16 [Rx ] Sennosides/Docusate Sodium [Senna-Docusate Sodium Tablet] 2 each PO BID PRN #60 tablet 12/22/16 [Rx] Calcium Carbonate/Vitamin D3 [Calcium 500 + Vit D Caplet] 2 each PO DAILY #60 tablet 12/26/16 [Rx] Oxycodone HCl 10 mg PO TID #90 tab 12/26/16 [Rx] Azithromycin [Azithromycin 6-Tab Pack] 250 mg PO PER PKG DI #6 tab 01/07/17 [Rx] Oxycodone HCl/Acetaminophen [Endocet 10-325 mg Tablet] 1 each PO Q8H 01/08/17 [ History] 3 Allergy/AdvReac Type Severity Reaction Status Date / Time No Known Allergies Allergy Verified 12/14/16 17:49 Constitutional: Present: anorexia, weakness. Absent: fever(s), frequent falls, night sweats Eyes: Absent: change in vision Nose, mouth and throat: Absent: change in voice, epistaxis Cardiovascular: Present: dyspnea on exertion. Absent: chest pain, edema Respiratory: Present: cough, dyspnea on exertion Gastrointestinal: Present: constipation. Absent: abdominal pain, dysphagia, hematochezia, nausea, vomiting Genitourinary: Absent: dysuria, hematuria Musculoskeletal: Present: back pain, muscle weakness Neurological: Absent: confusion Endocrine: Absent: palpitations Hematologic/Lymphatic: Absent: lymphadenopathy Oncology - Exam - Constitutional Vitals: Temp Pulse Resp BP Pulse Ox 98.1 F 96 18 126/64 97 01/09/17 11:08 01/09/17 11:08 01/09/17 11:26 01/09/17 11:08 01/09/17 11:26 - Head Head exam: Present: normal inspection - Eye Eye exam: Present: normal appearance - ENT ENT exam: Present: mucous membranes moist - Neck Neck exam: Absent: lymphadenopathy - Respiratory Respiratory exam: Present: wheezes - Cardiovascular Cardiovascular exam: Present: RRR. Absent: diastolic murmur, systolic murmur - GI/Abdominal GI/Abdominal exam: Present: normal bowel sounds, soft. Absent: tenderness - Extremities Exam Extremities exam: Absent: calf tenderness, pedal edema - Back Exam Back exam: Present: tenderness - Neurological Exam Neurological exam: Present: alert, oriented X3, strengths equal and symetr throughout - Skin Skin exam: Present: normal color Oncology - Results Labs: Short CBC 01/09/17 Range/Units 04:30 WBC 10.7 (4.3-11.1) K/mcL Hgb 8.0 L D (11.5-15.4) g/dL Hct 25.6 L (35.3-44.9) % Plt Count 244 (140-400) K/mcL Neutrophils # 8.8 (1.6-8.9) K/mcL BMP 01/09/17 04:30 Sodium 138 Potassium 3.7 Chloride 108 Carbon Dioxide 26 BUN 7 Creatinine 0.52 L Glucose 81 Calcium 7.9 L Consult Discharge Plan - Plan Referrals: Lilibeth Templeton CNP [Primary Care Provider] - 01/16/17 10:00 am <iLnda Bird - Last Filed: 01/09/17 16:57> Date of Encounter: 01/09/17 - Data of Consult Requesting Physician: Ethan Batista Primary Care Provider: Lilibeth Templeton CNP - Consult Narrative History of present illness: Ms. Keenan is a 61 year old female with hx SCLC on chemo with carbo/VP16, hospitalized for COPD exacerbation/pneumonia. CXR CT findings reviewed-- suspicion for pneumonia/pneumonitis on antibiotics. She is continuing to havve response in the chest and abd metastatic disease. Plan to continue Rx as out patient once she is discharged and stable as scheduled. I examined this patient and my medical decision-making was reviewed with the Advanced Practice Nurse, Scarlet Laureano CNP. I agree with the documented findings , disposition and treatment plan as described except to the extent set forth below. Oncology - Exam - Constitutional Vitals: Temp Pulse Resp BP Pulse Ox 98.1 F 106 18 135/67 98 01/09/17 15:58 01/09/17 15:58 01/09/17 15:58 01/09/17 15:58 01/09/17 15:58 Oncology - Results Labs: Short CBC 01/09/17 Range/Units 04:30 WBC 10.7 (4.3-11.1) K/mcL Hgb 8.0 L D (11.5-15.4) g/dL Hct 25.6 L (35.3-44.9) % Plt Count 244 (140-400) K/mcL Neutrophils # 8.8 (1.6-8.9) K/mcL BMP 01/09/17 04:30 Sodium 138 Potassium 3.7 Chloride 108 Carbon Dioxide 26 BUN 7 Creatinine 0.52 L Glucose 81 Calcium 7.9 L
--- NOTE | 2017-01-09 19:11 | Internal Med Progress Note ---
Date of Encounter: 01/09/17 Time of Encounter: 11:00 - Assessment and plan (1) Healthcare-associated pneumonia Current Visit: No Status: Resolved Assessment and plan: -Patient improving so will continue current medical management with IV Levaquin , IV Zosyn and IV vancomycin. (2) Acute exacerbation of chronic obstructive airways disease Current Visit: No Status: Resolved Assessment and plan: -Will continue scheduled DuoNeb's (3) Small cell 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 Current Visit: Yes Status: Acute Assessment and plan: -Hematology/oncology consulted and appreciate recommendations. (4) Anemia Current Visit: No Status: Acute Assessment and plan: -Hemoglobin 8.0 this morning. -Continue to monitor and transfuse if below 8 per hematology/oncology recommendations. Qualifiers: Other causes of anemia: antineoplastic chemotherapy Qualified Code(s): D64.81 - Anemia due to antineoplastic chemotherapy; T45.1X5A - Adverse effect of antineoplastic and immunosuppressive drugs, initial encounter; T45.1X5A - Adverse effect of antineoplastic and immunosuppressive drugs, initial encounter - Subjective Interval history: No acute events overnight - Constitutional Vitals: Temp Pulse Resp BP Pulse Ox 98.1 F 106 18 135/67 98 01/09/17 15:58 01/09/17 15:58 01/09/17 15:58 01/09/17 15:58 01/09/17 15:58 General appearance: Present: cachectic, cooperative, A&O X 3, pleasant, no acute distress, underweight, answers questions appropriately - Respiratory Respiratory exam: Present: CTAB. Absent: accessory muscle use, rales, rhonchi, wheezes - Cardiovascular Cardiovascular exam: Present: RRR, +S1, +S2. Absent: diastolic murmur, gallop, rubs, systolic murmur Internal Medicine: Result - Labs CBC & Chem 7: 01/09/17 04:30 01/09/17 04:30 Labs: Short CBC 01/09/17 Range/Units 04:30 WBC 10.7 (4.3-11.1) K/mcL Hgb 8.0 L D (11.5-15.4) g/dL Hct 25.6 L (35.3-44.9) % Plt Count 244 (140-400) K/mcL Neutrophils # 8.8 (1.6-8.9) K/mcL BMP 01/09/17 04:30 Sodium 138 Potassium 3.7 Chloride 108 Carbon Dioxide 26 BUN 7 Creatinine 0.52 L Glucose 81 Calcium 7.9 L - Impressions Impressions Abdomen/Pelvis CT 01/09/17 15:30 IMPRESSION: 1. Significant interval improvement of infiltrative right hilar mass, hepatic metastatic disease, and upper abdominal metastatic lymphadenopathy consistent with response to therapy. 2. Stable mediastinal lymphadenopathy. 3. Emphysema with new patchy multifocal right lung consolidative changes which may represent post-treatment pneumonitis. Disease progression cannot be excluded and attention on follow-up exams. 4. New trace right pleural effusion. 5. New presacral and perirectal fat induration which may represent acute inflammation. No abscess, obstruction, or perforation. D/ /09/2017 16:21:23 Philip Pinto MD / harry Interpreting Provider: Philip Pinto MD Chest CT 01/09/17 15:30 IMPRESSION: 1. Significant interval improvement of infiltrative right hilar mass, hepatic metastatic disease, and upper abdominal metastatic lymphadenopathy consistent with response to therapy. 2. Stable mediastinal lymphadenopathy. 3. Emphysema with new patchy multifocal right lung consolidative changes which may represent post-treatment pneumonitis. Disease progression cannot be excluded and attention on follow-up exams. 4. New trace right pleural effusion. 5. New presacral and perirectal fat induration which may represent acute inflammation. No abscess, obstruction, or perforation. D/ /09/2017 16:21:23 Philip Pinto MD / harry Interpreting Provider: Philip Pinto MD Consult Discharge Plan - Plan Referrals: Lilibeth Templeton CNP [Primary Care Provider] - 01/16/17 10:00 am
--- NOTE | 2017-01-09 20:10 | Electrocardiograph Report ---
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
[2017-01-09] MEDS: traZODone 50 MG TABLET PO SCH (20:13)
[2017-01-09] MEDS: Melatonin 3 MG TABLET PO SCH (20:13)
[2017-01-09] MEDS: Famotidine 20 MG TABLET PO SCH (20:13)
[2017-01-10] MEDS: Ipratropium/Albuterol Neb 3 ML IH SCH ×5 (04:18→20:21)
[2017-01-10] MEDS: *HR* Morphine 2 MG/ML SYRINGE IVP PRN ×5 (04:47→23:48)
[2017-01-10] MEDS: *HR* Enoxaparin 40 MG/0.4 ML SYRINGE SQ SCH (04:48)
[2017-01-10] MEDS: Sennosides/Docusate Sodium TABLET PO PRN ×2 (04:56→23:48)
[2017-01-10] MEDS: Budesonide/Formoterol 160/4.5 MDI IH SCH ×2 (07:42→20:21)
[2017-01-10] MEDS: Tiotropium 18 MCG inhalation IH SCH (07:42)
[2017-01-10] MEDS: Famotidine 20 MG TABLET PO SCH ×2 (08:37→20:09)
[2017-01-10] MEDS: *HR* OxyCODONE Immed Rel 5 MG TABLET PO SCH ×3 (08:37→20:09)
[2017-01-10] MEDS: Cholecalciferol (D-3) 1,000 UNIT TABLET PO SCH (08:37)
[2017-01-10] MEDS: *HR* LORazepam 0.5 MG TABLET PO SCH ×2 (08:38→20:09)
[2017-01-10] MEDS: Ascorbic Acid 500 MG TABLET PO SCH (08:38)
[2017-01-10] MEDS: Piperacillin/Tazobactam 3.375 GM in D5% in Water 50 ML IVPB SCH ×2 (08:38→15:46)
[2017-01-10] MEDS: Vancomycin 750 MG in D5% in Water 250 ML IVPB SCH ×2 (12:02→22:32)
[2017-01-10] MEDS: traZODone 50 MG TABLET PO SCH (20:09)
[2017-01-10] MEDS: Melatonin 3 MG TABLET PO SCH (20:09)
--- NOTE | 2017-01-10 20:18 | Internal Med Progress Note ---
Date of Encounter: 01/10/17 Time of Encounter: 11:00 - Assessment and plan (1) Healthcare-associated pneumonia Current Visit: No Status: Resolved Assessment and plan: -Patient improving so will continue current medical management with IV Levaquin , IV Zosyn and IV vancomycin. (2) Acute exacerbation of chronic obstructive airways disease Current Visit: No Status: Resolved Assessment and plan: -Will continue scheduled DuoNeb's (3) Small cell 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 Current Visit: Yes Status: Acute Assessment and plan: -Hematology/oncology consulted and appreciate recommendations. (4) Anemia Current Visit: No Status: Acute Assessment and plan: -Hemoglobin 8.0 this morning. -Continue to monitor and transfuse if below 8 per hematology/oncology recommendations. Qualifiers: Other causes of anemia: antineoplastic chemotherapy Qualified Code(s): D64.81 - Anemia due to antineoplastic chemotherapy; T45.1X5A - Adverse effect of antineoplastic and immunosuppressive drugs, initial encounter; T45.1X5A - Adverse effect of antineoplastic and immunosuppressive drugs, initial encounter - Subjective Interval history: No acute events overnight - Constitutional Vitals: Temp Pulse Resp BP Pulse Ox 98.1 F 109 16 129/71 96 01/10/17 20:13 01/10/17 20:13 01/10/17 20:13 01/10/17 20:13 01/10/17 20:13 General appearance: Present: cachectic, cooperative, A&O X 3, pleasant, no acute distress, underweight, answers questions appropriately - Respiratory Respiratory exam: Present: wheezes - Cardiovascular Cardiovascular exam: Present: RRR, +S1, +S2. Absent: diastolic murmur, gallop, rubs, systolic murmur Internal Medicine: Result - Labs CBC & Chem 7: 01/09/17 04:30 01/09/17 04:30 Consult Discharge Plan - Plan Referrals: Lilibeth Templeton CNP [Primary Care Provider] - 01/16/17 10:00 am
[2017-01-10] MEDS: Levofloxacin 750 MG/150 ML 750 MG/150 ML BAG IVPB SCH (22:33)
[2017-01-10] MEDS: Piperacillin/Tazobactam 3.375 GM in 0.9 % Sodium Chloride Mini Bag 100 ML IVPB SCH (23:44)
[2017-01-11] MEDS: Ipratropium/Albuterol Neb 3 ML IH SCH ×7 (00:06→23:31)
[2017-01-11] MEDS: *HR* Enoxaparin 40 MG/0.4 ML SYRINGE SQ SCH (05:07)
[2017-01-11] MEDS: *HR* Morphine 2 MG/ML SYRINGE IVP PRN ×3 (05:08→16:26)
[2017-01-11] MEDS: Budesonide/Formoterol 160/4.5 MDI IH SCH ×2 (07:59→19:37)
[2017-01-11] MEDS: Tiotropium 18 MCG inhalation IH SCH (08:00)
[2017-01-11] MEDS: Ascorbic Acid 500 MG TABLET PO SCH (09:02)
[2017-01-11] MEDS: Cholecalciferol (D-3) 1,000 UNIT TABLET PO SCH (09:02)
[2017-01-11] MEDS: Famotidine 20 MG TABLET PO SCH ×2 (09:02→20:48)
[2017-01-11] MEDS: *HR* LORazepam 0.5 MG TABLET PO SCH ×2 (09:03→20:48)
[2017-01-11] MEDS: *HR* OxyCODONE Immed Rel 5 MG TABLET PO SCH ×3 (10:37→20:48)
[2017-01-11] MEDS: Piperacillin/Tazobactam 3.375 GM in 0.9 % Sodium Chloride Mini Bag 100 ML IVPB SCH (10:38)
[2017-01-11] MEDS: Sennosides/Docusate Sodium TABLET PO PRN (16:26)
--- NOTE | 2017-01-11 18:17 | Internal Med Progress Note ---
Date of Encounter: 01/11/17 Time of Encounter: 11:00 - Assessment and plan (1) Healthcare-associated pneumonia Current Visit: No Status: Resolved Assessment and plan: -Patient improving so will continue current medical management with IV Levaquin , IV Zosyn and IV vancomycin. (2) Acute exacerbation of chronic obstructive airways disease Current Visit: No Status: Resolved Assessment and plan: -Will continue scheduled DuoNeb's (3) Small cell 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 Current Visit: Yes Status: Acute Assessment and plan: -Hematology/oncology consulted and appreciate recommendations. (4) Anemia Current Visit: No Status: Acute Assessment and plan: -Hemoglobin 8.0 this morning. -Continue to monitor and transfuse if below 8 per hematology/oncology recommendations. Qualifiers: Anemia type: other cause Other causes of anemia: antineoplastic chemotherapy Qualified Code(s): D64.81 - Anemia due to antineoplastic chemotherapy; T45.1X5A - Adverse effect of antineoplastic and immunosuppressive drugs, initial encounter; T45.1X5A - Adverse effect of antineoplastic and immunosuppressive drugs, initial encounter - Subjective Interval history: No acute events overnight - Constitutional Vitals: Temp Pulse Resp BP Pulse Ox 97.8 F 109 20 127/75 95 01/11/17 15:00 01/11/17 15:00 01/11/17 16:23 01/11/17 15:00 01/11/17 16:23 General appearance: Present: cachectic, cooperative, A&O X 3, pleasant, no acute distress, underweight, answers questions appropriately - Respiratory Respiratory exam: Present: CTAB. Absent: accessory muscle use, rales, rhonchi, wheezes - Cardiovascular Cardiovascular exam: Present: RRR, +S1, +S2. Absent: diastolic murmur, gallop, rubs, systolic murmur Internal Medicine: Result - Labs CBC & Chem 7: 01/09/17 04:30 01/09/17 04:30 Consult Discharge Plan - Plan Referrals: Lilibeth Templeton CNP [Primary Care Provider] - 01/16/17 10:00 am
[2017-01-11 18:47] LABS: Hemoglobin 8.4 g/dL (11.5-15.4); Mean Corpuscular HGB Conc 31.1 g/dL (31.6-35.5); Mean Corpuscular Hemoglobin 29.4 pg (28.0-33.3); Mean Corpuscular Volume 94.4 fL (83.0-100.0); Mean Platelet Volume 9.3 fL (9.4-12.4); Nucleated Red Blood Cells 0.7 /100 WBC (0); Platelet Count 246 K/mcL (140-400); Red Blood Count 2.86 M/mcL (3.82-4.97); Red Cell Distribution Width 14.6 % (11.5-14.5)
[2017-01-11 18:58] LABS: BUN/Creatinine Ratio 6 (6-26); Calcium 8.9 mg/dL (8.6-10.8); Carbon Dioxide 27 mEq/L (19-29); Chloride 104 mEq/L (98-109); Glucose 105 mg/dL (70-99); Osmolality,Calculated 283 (280-300); Potassium 3.9 mEq/L (3.5-4.5); Sodium 138 mEq/L (136-145); eGFR For African Americans > 60 (> 60); eGFR For Non-African Americans > 60 (> 60)
[2017-01-11 18:59] LABS: Blood Urea Nitrogen 4 mg/dL (7-20)
[2017-01-11 19:06] LABS: Eosinophils # 0.2 K/mcL (0.0-0.6); Lymphocytes # 4.8 K/mcL (0.6-4.6); Platelet Estimate Normal (Normal); Reactive Lymphocytes Present (Not Present); Smudge Cells Present (Not Present); Toxic Granulation Present (Not Present)
[2017-01-11] MEDS: traZODone 50 MG TABLET PO SCH (20:48)
[2017-01-11] MEDS: Melatonin 3 MG TABLET PO SCH (20:48)
[2017-01-11] MEDS: Levofloxacin 750 MG/150 ML 750 MG/150 ML BAG IVPB SCH (23:14)
[2017-01-12] MEDS: *HR* Morphine 2 MG/ML SYRINGE IVP PRN ×4 (01:18→18:55)
[2017-01-12] MEDS: Ipratropium/Albuterol Neb 3 ML IH SCH ×6 (03:43→23:59)
[2017-01-12] MEDS: *HR* Enoxaparin 40 MG/0.4 ML SYRINGE SQ SCH (05:31)
[2017-01-12] MEDS: Tiotropium 18 MCG inhalation IH SCH (07:42)
[2017-01-12] MEDS: Budesonide/Formoterol 160/4.5 MDI IH SCH ×2 (07:42→20:39)
[2017-01-12 08:51] LABS: Basophils % 0.3 %; Eosinophils % 0.2 %; Hemoglobin 8.6 g/dL (11.5-15.4); Immature Granulocytes % 15.2 % (0-4); Lymphocytes # 1.9 K/mcL (0.6-4.6); Lymphocytes % 14.8 %; Mean Corpuscular HGB Conc 30.7 g/dL (31.6-35.5); Mean Corpuscular Hemoglobin 29.3 pg (28.0-33.3); Mean Corpuscular Volume 95.2 fL (83.0-100.0); Mean Platelet Volume 9.4 fL (9.4-12.4); Monocytes # 1.2 K/mcL (0.0-1.3); Monocytes % 9.4 %; Nucleated Red Blood Cells 0.6 /100 WBC (0); Platelet Count 250 K/mcL (140-400); Red Blood Count 2.94 M/mcL (3.82-4.97); Red Cell Distribution Width 14.8 % (11.5-14.5); Segmented Neutrophils % 60.1 %
[2017-01-12] MEDS: Ascorbic Acid 500 MG TABLET PO SCH (08:56)
[2017-01-12] MEDS: Cholecalciferol (D-3) 1,000 UNIT TABLET PO SCH (08:56)
[2017-01-12] MEDS: *HR* OxyCODONE Immed Rel 5 MG TABLET PO SCH ×3 (08:57→20:58)
[2017-01-12] MEDS: Famotidine 20 MG TABLET PO SCH ×2 (08:57→20:58)
[2017-01-12] MEDS: *HR* LORazepam 0.5 MG TABLET PO SCH ×2 (08:57→20:58)
[2017-01-12 08:59] LABS: BUN/Creatinine Ratio 8 (6-26); Calcium 8.5 mg/dL (8.6-10.8); Carbon Dioxide 27 mEq/L (19-29); Chloride 104 mEq/L (98-109); Glucose 111 mg/dL (70-99); Osmolality,Calculated 288 (280-300); Potassium 4.2 mEq/L (3.5-4.5); Sodium 140 mEq/L (136-145); eGFR For African Americans > 60 (> 60); eGFR For Non-African Americans > 60 (> 60)
[2017-01-12 09:00] LABS: Blood Urea Nitrogen 5 mg/dL (7-20)
[2017-01-12 09:02] LABS: Neutrophils # 7.9 K/mcL (1.6-8.9)
[2017-01-12] MEDS ORDERED: Lactulose 200 GM, Sodium Chloride IRRigation 700 ML RC ONE (15:44)
--- NOTE | 2017-01-12 15:56 | Internal Med Progress Note ---
Date of Encounter: 01/12/17 Time of Encounter: 09:00 - Assessment and plan (1) Healthcare-associated pneumonia Current Visit: No Status: Resolved Assessment and plan: -Patient improving so will continue current medical management with IV Levaquin , IV Zosyn and IV vancomycin. (2) Acute exacerbation of chronic obstructive airways disease Current Visit: No Status: Resolved Assessment and plan: -Will continue scheduled DuoNeb's (3) Constipation Current Visit: No Status: Acute Assessment and plan: -Patient with no relief of constipation with enemas and stool softeners. -Will give lactulose enema. Qualifiers: Constipation type: unspecified constipation type Qualified Code(s): K59.00 - Constipation, unspecified (4) Urinary retention Current Visit: Yes Status: Acute Assessment and plan: -Speck secondary to constipation -Couch catheter has been inserted. -Will consult urology and appreciate recommendations. (5) Small cell 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 Current Visit: Yes Status: Acute Assessment and plan: -Hematology/oncology consulted and appreciate recommendations. (6) Anemia Current Visit: No Status: Acute Assessment and plan: -Hemoglobin 8.6 this morning. -Continue to monitor and transfuse if below 8 per hematology/oncology recommendations. Qualifiers: Anemia type: other cause Other causes of anemia: antineoplastic chemotherapy Qualified Code(s): D64.81 - Anemia due to antineoplastic chemotherapy; T45.1X5A - Adverse effect of antineoplastic and immunosuppressive drugs, initial encounter; T45.1X5A - Adverse effect of antineoplastic and immunosuppressive drugs, initial encounter - Subjective Interval history: No acute events overnight - Constitutional Vitals: Temp Pulse Resp BP Pulse Ox 98.0 F 99 16 115/52 95 01/12/17 10:53 01/12/17 10:53 01/12/17 11:15 01/12/17 10:53 01/12/17 11:15 General appearance: Present: cachectic, cooperative, A&O X 3, pleasant, no acute distress, underweight, answers questions appropriately - Respiratory Respiratory exam: Present: CTAB. Absent: accessory muscle use, rales, rhonchi, wheezes - Cardiovascular Cardiovascular exam: Present: RRR, +S1, +S2. Absent: diastolic murmur, gallop, rubs, systolic murmur Internal Medicine: Result - Labs CBC & Chem 7: 01/12/17 08:40 01/12/17 08:40 Labs: Short CBC 01/10/17 01/12/17 Range/Units 18:35 08:40 WBC 12.1 H 13.1 H (4.3-11.1) K/mcL Hgb 8.4 L 8.6 L (11.5-15.4) g/dL Hct 27.0 L 28.0 L (35.3-44.9) % Plt Count 246 250 (140-400) K/mcL Neutrophils # 7.0 7.9 (1.6-8.9) K/mcL BMP 01/10/17 01/12/17 18:35 08:40 Sodium 138 140 Potassium 3.9 4.2 Chloride 104 104 Carbon Dioxide 27 27 BUN 4 L 5 L Creatinine 0.65 0.63 Glucose 105 H 111 H Calcium 8.9 8.5 L Consult Discharge Plan - Plan Referrals: Lilibeth Templeton, FURNITURE INSPECTOR [Primary Care Provider] - 01/16/17 10:00 am
[2017-01-12] MEDS: Sennosides/Docusate Sodium TABLET PO PRN (16:02)
[2017-01-12] MEDS: traZODone 50 MG TABLET PO SCH (20:58)
[2017-01-12] MEDS: Melatonin 3 MG TABLET PO SCH (20:59)
[2017-01-13] MEDS: Levofloxacin 750 MG/150 ML 750 MG/150 ML BAG IVPB SCH (00:07)
[2017-01-13] MEDS: Ipratropium/Albuterol Neb 3 ML IH SCH ×6 (03:49→23:26)
[2017-01-13] MEDS: *HR* Morphine 2 MG/ML SYRINGE IVP PRN ×3 (04:17→17:10)
[2017-01-13] MEDS: *HR* Enoxaparin 40 MG/0.4 ML SYRINGE SQ SCH (07:00)
[2017-01-13] MEDS: Sennosides/Docusate Sodium TABLET PO PRN ×2 (07:04→08:55)
[2017-01-13] MEDS: Tiotropium 18 MCG inhalation IH SCH (07:54)
[2017-01-13] MEDS: Budesonide/Formoterol 160/4.5 MDI IH SCH ×2 (07:54→19:58)
[2017-01-13] MEDS ORDERED: SODIUM CHLORIDE/NAHCO3/KCL/PEG 4,000 ML SOLN.RECON PO ONE (08:46)
[2017-01-13] MEDS: Famotidine 20 MG TABLET PO SCH ×2 (08:54→20:38)
[2017-01-13] MEDS: *HR* LORazepam 0.5 MG TABLET PO SCH ×2 (08:54→20:38)
[2017-01-13] MEDS: Ascorbic Acid 500 MG TABLET PO SCH (08:54)
[2017-01-13] MEDS: *HR* OxyCODONE Immed Rel 5 MG TABLET PO SCH ×3 (08:54→20:38)
[2017-01-13] MEDS: Cholecalciferol (D-3) 1,000 UNIT TABLET PO SCH (08:55)
[2017-01-13 10:01] LABS: Hematocrit 31.8 % (35.3-44.9); Hemoglobin 9.6 g/dL (11.5-15.4); Mean Corpuscular HGB Conc 30.2 g/dL (31.6-35.5); Mean Corpuscular Hemoglobin 29.1 pg (28.0-33.3); Mean Corpuscular Volume 96.4 fL (83.0-100.0); Mean Platelet Volume 9.2 fL (9.4-12.4); Nucleated Red Blood Cells 0.4 /100 WBC (0); Platelet Count 238 K/mcL (140-400); Red Cell Distribution Width 15.1 % (11.5-14.5)
[2017-01-13 10:04] LABS: BUN/Creatinine Ratio 6 (6-26); Calcium 8.8 mg/dL (8.6-10.8); Carbon Dioxide 27 mEq/L (19-29); Chloride 102 mEq/L (98-109); Glucose 173 mg/dL (70-99); Osmolality,Calculated 287 (280-300); Sodium 138 mEq/L (136-145); eGFR For African Americans > 60 (> 60); eGFR For Non-African Americans > 60 (> 60)
[2017-01-13 10:08] LABS: Blood Urea Nitrogen 5 mg/dL (7-20)
[2017-01-13 11:04] LABS: Lymphocytes # 3.4 K/mcL (0.6-4.6); Monocytes # 0.5 K/mcL (0.0-1.3); Neutrophils # 6.4 K/mcL (1.6-8.9)
[2017-01-13 11:05] LABS: Platelet Estimate Normal (Normal); Reactive Lymphocytes Present (Not Present)
[2017-01-13] MEDS ORDERED: *HR* Alteplase (Cathflo) 2 MG VIAL IVP ONE (11:36)
--- NOTE | 2017-01-13 12:42 | Urology - Consult Note ---
Date of Encounter: 01/13/17 Time of Encounter: 12:39 - Assessment and Plan (1) Urinary retention Current Visit: Yes Status: Acute Assessment and plan: Most likely a consequence of her profound constipation. Her constipation has improved per the patient. At this point recommend for the patient to continue with her catheter. She should follow up with me next morning for voiding trial. Appointment has been made at 9 AM. Please call with any questions. Urology CN:HPI Consult date: 01/13/17 Reason for consult Urology: Other (urinary retention) Requesting physician: Ethan Batista History of present illness: Domi is a 61-year-old female with metastatic lung cancer. Patient states that she had problems with constipation which started prior to admission but continue with admission. She subsequently went into urinary retention. Urinary catheter was placed with what appears to be 1 L of urine returned. Patient states that she was not in significant pain prior to catheter be in place. She is tolerating the catheter at this point. Past Med Surg Social Fam HX - Past Medical History Medical history: cancer, COPD, hypertension Psychiatric history: anxiety, depression - Past Surgical History Surgical History: hysterectomy - Social History Smoking Status: Former smoker Smokeless Tobacco Status: No Alcohol use: none Drug use: none - Family History Sister Living Status: Still Living Hx Family Cardiac Disorders: Yes (HTN) Hx Family Cancer: Yes (cervical) Mother Living Status: Age at : 68 Cause of : anureysm Father Living Status: Age at : 75 Hx Family Cardiac Disorders: Yes Medications and Allergies DULoxetine [Cymbalta] 30 mg PO HS 02/15/16 [History] Trazodone HCl 200 mg PO HS 02/15/16 [History] Melatonin/Pyridoxine HCl (B6) [Melatonin 3 mg Tablet] 3 mg PO HS 05/02/16 [ History] Albuterol Neb [Proventil Neb] 2.5 mg IH Q6H PRN 10/14/16 [History] Albuterol Sulfate [Albuterol Inhaler] 2 puff IH Q6H PRN 10/14/16 [History] Budesonide/Formoterol 160/4.5 [Symbicort 160/4.5] 2 puff IH BIDR 10/14/16 [ History] Oxygen 2 l NS AD 10/14/16 [History] Tiotropium [Spiriva] 18 mcg IH DAILY 10/14/16 [History] Ondansetron [Zofran ODT] 8 mg SL Q4HR PRN #20 tab.rapdis 11/20/16 [Rx] Dexamethasone [Decadron] 4 mg PO BID #30 tab 11/27/16 [Rx] Magic Mouthwash [Magic Mouthwash BLM] 10 ml PO QID PRN #240 ml 11/27/16 [Rx] LORazepam [Ativan] 0.5 mg PO BID #60 tablet 11/29/16 [Rx] Ascorbate Calcium [Vitamin C] 500 mg PO DAILY 12/14/16 [History] Furosemide [Lasix] 20 mg PO DAILY PRN #15 tablet 12/22/16 [Rx] Metoprolol XL (24 HR) Succ [Toprol Xl] 25 mg PO DAILY #30 tab.er.24h 12/22/16 [ Rx] Nicotine Patch [Nicoderm] 14 mg TD DAILY #30 patch.td24 12/22/16 [Rx] Polyethylene Glycol 3350 [MiraLAX] 17 gm PO DAILY PRN #30 powd.pack 12/22/16 [Rx ] Sennosides/Docusate Sodium [Senna-Docusate Sodium Tablet] 2 each PO BID PRN #60 tablet 12/22/16 [Rx] Calcium Carbonate/Vitamin D3 [Calcium 500 + Vit D Caplet] 2 each PO DAILY #60 tablet 12/26/16 [Rx] Oxycodone HCl 10 mg PO TID #90 tab 12/26/16 [Rx] Azithromycin [Azithromycin 6-Tab Pack] 250 mg PO PER PKG DI #6 tab 01/07/17 [Rx] Oxycodone HCl/Acetaminophen [Endocet 10-325 mg Tablet] 1 each PO Q8H 01/08/17 [ History] 3 Allergy/AdvReac Type Severity Reaction Status Date / Time No Known Allergies Allergy Verified 12/14/16 17:49 Review of Systems - Constitutional no chills - EENT Nose, mouth and throat: no dizziness - Cardiovascular no chest pain - Gastrointestinal abdominal pain Exam Initial Vital Signs Temp Pulse Resp BP Pulse Ox 99.7 F H 112 22 136/73 96 01/08/17 20:09 01/08/17 20:09 01/08/17 20:09 01/08/17 20:09 01/08/17 20:09 - General physical appearance Present: well developed - Eyes Present: PERRL - Cardiovascular Cardiovascular exam IM: RRR - Abdomen Abdomen: Present: soft - Integumentary Present: no rash Urology Results - Labs 01/13/17 09:22 01/13/17 09:22 Abnormal lab results WBC 11.4 K/mcL (4.3-11.1) H 01/13/17 09:22 RBC 3.30 M/mcL (3.82-4.97) L 01/13/17 09:22 Hgb 9.6 g/dL (11.5-15.4) L 01/13/17 09:22 Hct 31.8 % (35.3-44.9) L 01/13/17 09:22 MCHC 30.2 g/dL (31.6-35.5) L 01/13/17 09:22 RDW 15.1 % (11.5-14.5) H 01/13/17 09:22 MPV 9.2 fL (9.4-12.4) L 01/13/17 09:22 Immature Gran % 15.2 % (0-4) H 01/12/17 08:40 Band Neutrophils % 8.0 % (0-4) H 01/13/17 09:22 Metamyelocytes % 4.0 % (0) H 01/13/17 09:22 Myelocytes % 6.0 % (0) H 01/13/17 09:22 Nucleated RBCs/100 WBC 0.4 /100 WBC (0) H 01/13/17 09:22 Reactive Lymphocytes Present (Not Present) A 01/13/17 09:22 Smudge Cells Present (Not Present) A 01/10/17 18:35 Toxic Granulation Present (Not Present) A 01/10/17 18:35 Dohle Bodies Present (Not Present) A 01/08/17 20:49 BUN 5 mg/dL (7-20) L 01/13/17 09:22 Glucose 173 mg/dL (70-99) H 01/13/17 09:22 POC Glucose 104 (58-89) H 01/12/17 07:17 Phosphorus 1.9 mg/dL (2.3-4.7) L 01/08/17 20:49 Alkaline Phosphatase 195 Units/L (38-126) H 01/08/17 20:49 Albumin 2.8 g/dL (3.5-5.0) L 01/08/17 20:49 Albumin/Globulin Ratio 0.8 (1.1-2.2) L 01/08/17 20:49 Urine Glucose (UA) 250 mg/dL (Normal) H 01/08/17 20:45 Diabetes panel 01/13/17 Range/Units 09:22 Sodium 138 (136-145) mEq/L Potassium 4.0 (3.5-4.5) mEq/L Chloride 102 (98-109) mEq/L Carbon Dioxide 27 (19-29) mEq/L BUN 5 L (7-20) mg/dL Creatinine 0.79 (0.57-1.11) mg/dL Glucose 173 H (70-99) mg/dL Calcium 8.8 (8.6-10.8) mg/dL Calcium panel 01/13/17 Range/Units 09:22 Calcium 8.8 (8.6-10.8) mg/dL Pituitary panel 01/13/17 Range/Units 09:22 Sodium 138 (136-145) mEq/L Potassium 4.0 (3.5-4.5) mEq/L Chloride 102 (98-109) mEq/L Carbon Dioxide 27 (19-29) mEq/L BUN 5 L (7-20) mg/dL Creatinine 0.79 (0.57-1.11) mg/dL Glucose 173 H (70-99) mg/dL Calcium 8.8 (8.6-10.8) mg/dL Adrenal panel 01/13/17 Range/Units 09:22 Sodium 138 (136-145) mEq/L Potassium 4.0 (3.5-4.5) mEq/L Chloride 102 (98-109) mEq/L Carbon Dioxide 27 (19-29) mEq/L BUN 5 L (7-20) mg/dL Creatinine 0.79 (0.57-1.11) mg/dL Glucose 173 H (70-99) mg/dL Calcium 8.8 (8.6-10.8) mg/dL All other labs normal. - Imaging CT scan - abdomen: image reviewed CT scan - pelvis: image reviewed Consult Discharge Plan - Plan Referrals: Lilibeth Templeton, OMA [Primary Care Provider] - 11/29/17 10:00 am
--- NOTE | 2017-01-13 18:20 | Internal Med Progress Note ---
Date of Encounter: 01/13/17 Time of Encounter: 11:00 - Assessment and plan (1) Healthcare-associated pneumonia Current Visit: No Status: Resolved Assessment and plan: -Patient improving so will continue current medical management with IV Levaquin , IV Zosyn and IV vancomycin. (2) Acute exacerbation of chronic obstructive airways disease Current Visit: No Status: Resolved Assessment and plan: -Will continue scheduled DuoNeb's (3) Constipation Current Visit: No Status: Acute Assessment and plan: -Patient with no relief of constipation with enemas/stool softeners or lactulose enema. -GoLYTELY initiated today. -Acute abdominal series did not show obstruction but did show moderate colonic stool burden Qualifiers: Constipation type: unspecified constipation type Qualified Code(s): K59.00 - Constipation, unspecified (4) Urinary retention Current Visit: Yes Status: Acute Assessment and plan: -Speck secondary to constipation -Couch catheter has been inserted. -Urology recommendations are continued Couch catheter and to follow-up as outpatient for voiding trial. (5) Small cell 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 Current Visit: Yes Status: Acute Assessment and plan: -Hematology/oncology consulted and appreciate recommendations. (6) Anemia Current Visit: No Status: Acute Assessment and plan: -Hemoglobin 8.6 this morning. -Continue to monitor and transfuse if below 8 per hematology/oncology recommendations. Qualifiers: Anemia type: other cause Other causes of anemia: antineoplastic chemotherapy Qualified Code(s): D64.81 - Anemia due to antineoplastic chemotherapy; T45.1X5A - Adverse effect of antineoplastic and immunosuppressive drugs, initial encounter; T45.1X5A - Adverse effect of antineoplastic and immunosuppressive drugs, initial encounter - Subjective Interval history: Patient with minimum improvement in constipation. - Constitutional Vitals: Temp Pulse Resp BP Pulse Ox 98 F 104 16 131/86 90 01/13/17 15:04 01/13/17 15:04 01/13/17 15:48 01/13/17 15:04 01/13/17 15:48 General appearance: Present: cachectic, cooperative, A&O X 3, pleasant, no acute distress, underweight, answers questions appropriately - Respiratory Respiratory exam: Present: CTAB. Absent: accessory muscle use, rales, rhonchi, wheezes - Cardiovascular Cardiovascular exam: Present: RRR, +S1, +S2. Absent: diastolic murmur, gallop, rubs, systolic murmur - GI/Abdominal GI/Abdominal exam: Present: distended, soft, no peritoneal signs. Absent: normal bowel sounds (High-pitched bowel sounds), tenderness Internal Medicine: Result - Labs CBC & Chem 7: 01/13/17 09:22 01/13/17 09:22 Labs: Short CBC 01/13/17 Range/Units 09:22 WBC 11.4 H (4.3-11.1) K/mcL Hgb 9.6 L (11.5-15.4) g/dL Hct 31.8 L (35.3-44.9) % Plt Count 238 (140-400) K/mcL Neutrophils # 6.4 (1.6-8.9) K/mcL BMP 01/13/17 09:22 Sodium 138 Potassium 4.0 Chloride 102 Carbon Dioxide 27 BUN 5 L Creatinine 0.79 Glucose 173 H Calcium 8.8 - Impressions Impressions Chest/Abdomen X-ray 01/13/17 08:48 IMPRESSION: Moderate colonic stool burden. D/ / Beto Rao MD / Beto Rao MD Interpreting Provider: Beto Rao MD Consult Discharge Plan - Plan Referrals: Lilibeth Templeton CNP [Primary Care Provider] - 01/16/17 10:00 am
[2017-01-13] MEDS: Melatonin 3 MG TABLET PO SCH (20:38)
[2017-01-13] MEDS: traZODone 50 MG TABLET PO SCH (20:38)
[2017-01-14] MEDS: Levofloxacin 750 MG/150 ML 750 MG/150 ML BAG IVPB SCH (01:07)
[2017-01-14] MEDS: *HR* Morphine 2 MG/ML SYRINGE IVP PRN ×3 (01:12→14:45)
[2017-01-14] MEDS: Ipratropium/Albuterol Neb 3 ML IH SCH ×3 (03:25→11:13)
[2017-01-14] MEDS: Sennosides/Docusate Sodium TABLET PO PRN (06:53)
[2017-01-14] MEDS: *HR* Enoxaparin 40 MG/0.4 ML SYRINGE SQ SCH (06:54)
[2017-01-14] MEDS: Tiotropium 18 MCG inhalation IH SCH (07:40)
[2017-01-14] MEDS: Budesonide/Formoterol 160/4.5 MDI IH SCH (07:40)
[2017-01-14 07:46] VITALS: BP 120/75
[2017-01-14] MEDS: *HR* LORazepam 0.5 MG TABLET PO SCH (09:36)
[2017-01-14] MEDS: *HR* OxyCODONE Immed Rel 5 MG TABLET PO SCH ×2 (09:36→16:02)
[2017-01-14] MEDS: Famotidine 20 MG TABLET PO SCH (09:36)
[2017-01-14] MEDS: Cholecalciferol (D-3) 1,000 UNIT TABLET PO SCH (09:37)
[2017-01-14] MEDS: Ascorbic Acid 500 MG TABLET PO SCH (09:37)
--- NOTE | 2017-01-14 14:49 | Discharge Summary ---
Date of Encounter: 01/14/17 Time of Encounter: 11:00 - Discharge Diagnosis (1) Healthcare-associated pneumonia Priority: Primary Status: Resolved (2) Acute exacerbation of chronic obstructive airways disease Priority: Primary Status: Resolved (3) Constipation Priority: Secondary Status: Acute Qualifiers: Constipation type: unspecified constipation type Qualified Code(s): K59.00 - Constipation, unspecified (4) Urinary retention Priority: Secondary Status: Acute (5) Small cell 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 Priority: Secondary Status: Acute (6) Anemia Priority: Secondary Status: Acute Qualifiers: Anemia type: other cause Other causes of anemia: antineoplastic chemotherapy Qualified Code(s): D64.81 - Anemia due to antineoplastic chemotherapy; T45.1X5A - Adverse effect of antineoplastic and immunosuppressive drugs, initial encounter; T45.1X5A - Adverse effect of antineoplastic and immunosuppressive drugs, initial encounter - Discharge Medications Home Medications: DULoxetine [Cymbalta] 30 mg PO HS 02/15/16 [History] Trazodone HCl 200 mg PO HS 02/15/16 [History] Melatonin/Pyridoxine HCl (B6) [Melatonin 3 mg Tablet] 3 mg PO HS 05/02/16 [ History] Albuterol Neb [Proventil Neb] 2.5 mg IH Q6H PRN 10/14/16 [History] Albuterol Sulfate [Albuterol Inhaler] 2 puff IH Q6H PRN 10/14/16 [History] Budesonide/Formoterol 160/4.5 [Symbicort 160/4.5] 2 puff IH BIDR 10/14/16 [ History] Oxygen 2 l NS AD 10/14/16 [History] Tiotropium [Spiriva] 18 mcg IH DAILY 10/14/16 [History] Ondansetron [Zofran ODT] 8 mg SL Q4HR PRN #20 tab.rapdis 11/20/16 [Rx] Dexamethasone [Decadron] 4 mg PO BID #30 tab 11/27/16 [Rx] Magic Mouthwash [Magic Mouthwash BLM] 10 ml PO QID PRN #240 ml 11/27/16 [Rx] LORazepam [Ativan] 0.5 mg PO BID #60 tablet 11/29/16 [Rx] Ascorbate Calcium [Vitamin C] 500 mg PO DAILY 12/14/16 [History] Furosemide [Lasix] 20 mg PO DAILY PRN #15 tablet 12/22/16 [Rx] Metoprolol XL (24 HR) Succ [Toprol Xl] 25 mg PO DAILY #30 tab.er.24h 12/22/16 [ Rx] Nicotine Patch [Nicoderm] 14 mg TD DAILY #30 patch.td24 12/22/16 [Rx] Polyethylene Glycol 3350 [MiraLAX] 17 gm PO DAILY PRN #30 powd.pack 12/22/16 [Rx ] Sennosides/Docusate Sodium [Senna-Docusate Sodium Tablet] 2 each PO BID PRN #60 tablet 12/22/16 [Rx] Calcium Carbonate/Vitamin D3 [Calcium 500 + Vit D Caplet] 2 each PO DAILY #60 tablet 12/26/16 [Rx] Oxycodone HCl 10 mg PO TID #90 tab 12/26/16 [Rx] Oxycodone HCl/Acetaminophen [Endocet 10-325 mg Tablet] 1 each PO Q8H 01/08/17 [ History] Allergies/Adverse Reactions: 3 Allergy/AdvReac Type Severity Reaction Status Date / Time No Known Allergies Allergy Verified 12/14/16 17:49 Date of admission: 01/08/17 23:23 Primary care physician: Lilibeth Templeton CNP Consults: 01/08/17 23:30 Consult to Oncology [CONS] Routine Consulting Provider: Oncology [facility] Reason for Consult: lung cancer Call Completed: No 01/12/17 15:52 Consult to Urology [CONS] Routine Consulting Provider: Urology [facility] Reason for Consult: urinary retention Call Completed: No - Patient Status Disposition: Home, Self-Care Condition: Good - Ambulatory Orders Ambulatory Orders: Do Not Remove Couch Catheter Time Frame: 3 Days, Facility: [facility], Location: Hospitalist Do Not Remove Couch Catheter Time Frame: 01/17/17, Facility: [facility], Location: Hospitalist - Discharge Instructions Follow Up With: Nathan Durand MD [Partnered Physician] - 01/21/17 9:30 am Linda Bird MD [Partnered Physician] - (when you go to your injection on 01-21 remind them to make you an appointment because they didn't have anything available when i called) Lilibeth Templeton CNP [Primary Care Provider] - 01/16/17 10:00 am Hospital course: Patient is a 61-year-old female with past medical history significant for COPD oxygen dependent, hypertension, lung cancer undergoing chemotherapy, anxiety and depression who presents to the ER on 01/08/17 with complaints of shortness of breath. Patient stated she noticed that she was not feeling well the day prior to admission. The afternoon of admission, she developed shortness of breath and productive cough with yellow colored sputum. In the ER, patient was found to have an elevated white count and chest x-ray showed scattered right lung opacities suspicious for pneumonia. Patient was admitted to the medical floor for management of hospital-acquired pneumonia and COPD exacerbation. During the patients hospital stay her symptoms of shortness of breath and productive cough resolved after treatment for hospital-acquired pneumonia with IV Levaquin, IV Zosyn and IV vancomycin. Patients COPD exacerbation resolved as well after treatment with DuoNebs. Patient however developed severe constipation with urinary retention during hospital stay and was given multiple laxatives and enemas and finally had a bowel movement with GoLYTELY. Urology was consulted for new onset of urinary retention that was suspected to be secondary to constipation and recommendation for Couch catheter and to follow -up with urology as outpatient for voiding trial. - Time Spent with Patient Total time spent providing and/or coordinating discharge services: Less than 30 minutes - Constitutional Vitals: Temp Pulse Resp BP Pulse Ox 97.6 F 94 16 120/75 98 01/14/17 07:45 01/14/17 07:45 01/14/17 11:16 01/14/17 07:45 01/14/17 11:16 General appearance: Present: cachectic, cooperative, A&O X 3, pleasant, no acute distress, underweight, answers questions appropriately - Respiratory Respiratory exam: Present: CTAB. Absent: accessory muscle use, rales, rhonchi, wheezes - Cardiovascular Cardiovascular exam: Present: RRR, +S1, +S2. Absent: diastolic murmur, gallop, rubs, systolic murmur
--- NOTE | 2017-01-14 15:05 | Physician Discharge Referral ---
Home Health/Hosp Referral Info Transfer to: Home Health - Diagnosis (1) Healthcare-associated pneumonia Priority: Primary Status: Resolved (2) Acute exacerbation of chronic obstructive airways disease Priority: Primary Status: Resolved (3) Constipation Priority: Secondary Status: Acute (4) Urinary retention Priority: Secondary Status: Acute (5) Small cell 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 Priority: Secondary Status: Acute (6) Anemia Priority: Secondary Status: Acute - Respiratory Orders Smoking Cessation: Smoking cessation has been advised. For more information, call the [place] Tobacco Quit Line at 2-822-GENR-NOW. Other Treatments: Couch catheter care - Transfer Medications Home Medications: DULoxetine [Cymbalta] 30 mg PO HS 02/15/16 [History] Trazodone HCl 200 mg PO HS 02/15/16 [History] Melatonin/Pyridoxine HCl (B6) [Melatonin 3 mg Tablet] 3 mg PO HS 05/02/16 [ History] Albuterol Neb [Proventil Neb] 2.5 mg IH Q6H PRN 10/14/16 [History] Albuterol Sulfate [Albuterol Inhaler] 2 puff IH Q6H PRN 10/14/16 [History] Budesonide/Formoterol 160/4.5 [Symbicort 160/4.5] 2 puff IH BIDR 10/14/16 [ History] Oxygen 2 l NS AD 10/14/16 [History] Tiotropium [Spiriva] 18 mcg IH DAILY 10/14/16 [History] Ondansetron [Zofran ODT] 8 mg SL Q4HR PRN #20 tab.rapdis 11/20/16 [Rx] Dexamethasone [Decadron] 4 mg PO BID #30 tab 11/27/16 [Rx] Magic Mouthwash [Magic Mouthwash BLM] 10 ml PO QID PRN #240 ml 11/27/16 [Rx] LORazepam [Ativan] 0.5 mg PO BID #60 tablet 11/29/16 [Rx] Ascorbate Calcium [Vitamin C] 500 mg PO DAILY 12/14/16 [History] Furosemide [Lasix] 20 mg PO DAILY PRN #15 tablet 12/22/16 [Rx] Metoprolol XL (24 HR) Succ [Toprol Xl] 25 mg PO DAILY #30 tab.er.24h 12/22/16 [ Rx] Nicotine Patch [Nicoderm] 14 mg TD DAILY #30 patch.td24 12/22/16 [Rx] Polyethylene Glycol 3350 [MiraLAX] 17 gm PO DAILY PRN #30 powd.pack 12/22/16 [Rx ] Sennosides/Docusate Sodium [Senna-Docusate Sodium Tablet] 2 each PO BID PRN #60 tablet 12/22/16 [Rx] Calcium Carbonate/Vitamin D3 [Calcium 500 + Vit D Caplet] 2 each PO DAILY #60 tablet 12/26/16 [Rx] Oxycodone HCl 10 mg PO TID #90 tab 12/26/16 [Rx] Oxycodone HCl/Acetaminophen [Endocet 10-325 mg Tablet] 1 each PO Q8H 01/08/17 [ History] Allergies/Adverse Reactions: 3 Allergy/AdvReac Type Severity Reaction Status Date / Time No Known Allergies Allergy Verified 12/14/16 17:49 Certification: Further, I certify that my clinical findings support that this patient is homebound (i.e. absences from home require considerable and taxing effort and are for medical reasons or [facility] or infrequently or short duration when for other reasons) because: Homebound Reason: Patient requires assistance of a person or device to safely leave home Attestation: My signature below is to certify that this patient is under my care and that I, or nurse practitioner, or a physician's assistant boiler operator working with me, has a face-to -face encounter with this patient.
[2017-01-14] MEDS ORDERED: Ipratropium/Albuterol Neb 3 ML IH ONE (17:17)
[2017-01-14] MEDS ORDERED: Sennosides/Docusate Sodium TABLET PO SCH (21:00)
== END 2017-01-14 18:55 | disposition home or self-care (01) | DRG 194 ==
LOC: 2NENU 20:07 → EMEROO 20:07 → SUATTDRO 23:23 → 2NENU 23:39
PROVIDERS: ADMIT Internal Medicine; ATTEND Hospitalist

== ENCOUNTER 2017-01-24 17:08 | Inpatient (IN) ==
[2017-01-24] MEDS ORDERED: Ipratropium/Albuterol Neb 3 ML IH ONE ×2 (17:34→20:14)
[2017-01-24] MEDS ORDERED: 0.9 % Sodium Chloride 1,000 ML IVC ONE (17:34)
--- NOTE | 2017-01-24 17:51 | Emergency Department Note ---
Disposition Clinical Impression: Acute exacerbation of chronic obstructive airways disease Pneumonia Qualifiers: Pneumonia type: due to unspecified organism Laterality: unspecified laterality Lung location: unspecified part of lung Qualified Code(s): J18.9 - Pneumonia, unspecified organism Lung cancer Qualifiers: Laterality: unspecified laterality Lung location: unspecified part of lung Qualified Code(s): C34.90 - Malignant neoplasm of unspecified part of unspecified bronchus or lung Disposition: Admitted As Inpatient Condition: Fair Referrals: Ron Ward MD [Primary Care Provider] - Time of Disposition: 20:30 SOB HPI - General Stated Complaint: NOHELIA, Lung Ca Pt. Time Seen by Provider: 01/24/17 17:31 Nursing Notes Reviewed: Yes Vital Signs Reviewed: Yes - History of Present Illness Presents with shortness of breath which began after she woke up from a nap today and it is severe and worse with exertion and she did have a home health nurse came to the house today and said that her lungs sounded worse. She does have COPD and stop smoking 3 or 4 months ago and she does have a history of metastatic lung cancer with metastases to the liver. She did receive chemotherapy yesterday. Does have a cough which is minimally productive at times and other times is dry. No hemoptysis. No rhinorrhea or sneezing. No fever or blurred vision. No blood in the urine or stool, no pain or numbness or swelling of the lower extremities. No skin rash. Does have intermittent bruising of the skin. Social history: No smoking. Is here with her . The patient has had multiple episodes of pneumonia in the past - Related Data Home Medications Medication Instructions Recorded Confirmed DULoxetine [Cymbalta] 30 mg PO HS 02/15/16 01/08/17 Trazodone HCl 200 mg PO HS 02/15/16 01/08/17 Melatonin/Pyridoxine HCl (B6) 3 mg PO HS 05/02/16 01/08/17 [Melatonin 3 mg Tablet] Albuterol Neb [Proventil Neb] 2.5 mg IH Q6H PRN 10/14/16 01/08/17 Albuterol Sulfate [Albuterol 2 puff IH Q6H PRN 10/14/16 01/08/17 Inhaler] Budesonide/Formoterol 160/4.5 2 puff IH BIDR 10/14/16 01/08/17 [Symbicort 160/4.5] Oxygen 2 l NS AD 10/14/16 01/08/17 Tiotropium [Spiriva] 18 mcg IH DAILY 10/14/16 01/08/17 Ascorbate Calcium [Vitamin C] 500 mg PO DAILY 12/14/16 01/08/17 Oxycodone HCl/Acetaminophen 1 each PO Q8H 01/08/17 01/08/17 [Endocet 10-325 mg Tablet] Previous Rx's Medication Instructions Recorded Ondansetron [Zofran ODT] 8 mg SL Q4HR PRN #20 tab.rapdis 11/20/16 Dexamethasone [Decadron] 4 mg PO BID #30 tab 11/27/16 Magic Mouthwash [Magic Mouthwash 10 ml PO QID PRN #240 ml 11/27/16 BLM] LORazepam [Ativan] 0.5 mg PO BID #60 tablet 11/29/16 Furosemide [Lasix] 20 mg PO DAILY PRN #15 tablet 12/22/16 Metoprolol XL (24 HR) Succ [Toprol 25 mg PO DAILY #30 tab.er.24h 12/22/16 Xl] Nicotine Patch [Nicoderm] 14 mg TD DAILY #30 patch.td24 12/22/16 Polyethylene Glycol 3350 [MiraLAX] 17 gm PO DAILY PRN #30 powd.pack 12/22/16 Sennosides/Docusate Sodium 2 each PO BID PRN #60 tablet 12/22/16 [Senna-Docusate Sodium Tablet] Calcium Carbonate/Vitamin D3 2 each PO DAILY #60 tablet 12/26/16 [Calcium 500 + Vit D Caplet] Oxycodone HCl 10 mg PO TID #90 tab 12/26/16 Levofloxacin [Levaquin] 500 mg PO DAILY #7 tablet 01/21/17 Allergies Allergy/AdvReac Type Severity Reaction Status Date / Time No Known Allergies Allergy Verified 12/14/16 17:49 Review of Systems: As Per HPI Past Medical History - Past Medical History Medical history: Reports: cancer, COPD, hypertension Surgical history: Reports: hysterectomy Psychiatric history: Reports: anxiety, depression [employer] history: Reports: no [employer] history - Social History Smoking Status: Former smoker Smokeless Tobacco Status: No Alcohol use: Reports: none Drug use: Reports: none Physical Exam CONSTITUTIONAL: Alert and oriented X3, well-nourished, well appearing, in no apparent distress HEAD: Normocephalic; atraumatic. EYES: PERRL, no scleral icterus. NOSE: The nose is normal in appearance without rhinorrhea RESP: Normal chest excursion with respiration; breath sounds with bilateral wheezing and rhonchi which is symmetric CARD: Regular rhythm, without murmurs, rub or gallop ABD: Non-distended; non-tender, soft,without rigidity, rebound or guarding SKIN: Normal for age and race; warm and dry; no apparent lesions , scattered rare bruising of the skin EXTREMITIES: Pulses are 2 plus and equal times 4 extremities, no peripheral edema or calf muscle pain. Course Vital Signs Pulse Rate 106 01/24/17 17:32 Respiratory Rate 18 01/24/17 17:32 Blood Pressure 122/75 01/24/17 17:32 O2 Sat by Pulse Oximetry 99 01/24/17 17:32 Temperature 97.9 F 01/24/17 17:42 Pulse Rate 113 01/24/17 17:42 Respiratory Rate 20 01/24/17 17:43 Blood Pressure 119/80 01/24/17 17:42 O2 Sat by Pulse Oximetry 96 01/24/17 17:43 Oxygen Delivery Oxygen Delivery Nasal Cannula Shortness of Breath/Dyspnea - [facility] Narrative Medical decision making narrative: Patient's symptoms are concerning for COPD exacerbation however other considerations such as pneumonia, pulmonary embolism are considerations the patient will have evaluation with laboratory testing, chest x-ray as well as a CTA of the chest and the patient will be given IV steroids, DuoNeb and started on antibiotics for possible hospital acquired pneumonia with vancomycin and Zosyn. The patient denies any fevers but has had some myalgias 1750 Patient does have a significantly elevated white blood cell count. The labs have been reviewed. Patient will be admitted to the hospital. I did review the EKG showing sinus tachycardia with rate of 107 without acute ischemic change 1831 We did speak with Dr. Haas who is the hospitalist who accepted the patient for admission. I did review the CT scan results. The patient likely has an infectious exacerbation of her COPD and started on medications including antibiotics, Decadron, DuoNeb will be admitted. 1955 I did to see the patient again and explained the admission process. She did become extremely dyspneic after returning from the bathroom, I did review with her the CT results 2027 - Medical Records Medical records reviewed: Yes I reviewed the patient's medical records. - Lab Data Lab results reviewed: Yes I reviewed the patient's lab results. Result diagrams: 01/24/17 17:53 01/24/17 17:53 Lab Results 01/24/17 01/24/17 01/24/17 Range/Units 17:53 17:53 17:53 WBC 46.7 H* D (4.3-11.1) K/mcL RBC 3.22 L (3.82-4.97) M/mcL Hgb 9.5 L (11.5-15.4) g/dL Hct 30.6 L (35.3-44.9) % MCV 95.0 (83.0-100.0) fL MCH 29.5 (28.0-33.3) pg MCHC 31.0 L (31.6-35.5) g/dL RDW 15.6 H (11.5-14.5) % Plt Count 491 H (140-400) K/mcL MPV 8.8 L (9.4-12.4) fL Immature Gran % 1.7 (0-4) % Seg Neutrophils % 90.6 % Lymphocytes % 6.0 % Monocytes % 1.5 % Eosinophils % 0.0 % Basophils % 0.2 % Neutrophils # 42.3 H (1.6-8.9) K/mcL Lymphocytes # 2.8 (0.6-4.6) K/mcL Monocytes # 0.7 (0.0-1.3) K/mcL Eosinophils # 0.0 (0.0-0.6) K/mcL Basophils # 0.1 (0.0-0.2) K/mcL Platelet Estimate Increased H (Normal) Hypochromasia Present A (Not Present) Sodium 141 (136-145) mEq/L Potassium 3.5 (3.5-4.5) mEq/L Chloride 105 (98-109) mEq/L Carbon Dioxide 28 (19-29) mEq/L BUN 15 (7-20) mg/dL Creatinine 0.64 (0.57-1.11) mg/dL Est GFR ( Amer) > 60 (> 60) Est GFR (Non-Af Amer) > 60 (> 60) BUN/Creatinine Ratio 23 (6-26) Glucose 107 H (70-99) mg/dL Calculated Osmolality 293 (280-300) Lactic Acid 1.9 (0.5-2.2) mmol/L Calcium 9.3 (8.6-10.8) mg/dL Total Bilirubin 0.2 (0.2-1.2) mg/dL Direct Bilirubin 0.1 (0.0-0.5) mg/dL Indirect Bilirubin 0.1 (0.0-1.2) mg/dL AST 12 (5-34) Units/L ALT 14 (0-55) Units/L Alkaline Phosphatase 123 (38-126) Units/L Troponin I (0-0.03) ng/mL Serum Total Protein 6.2 (6.0-8.3) g/dL Albumin 3.0 L (3.5-5.0) g/dL Globulin 3.2 (2.4-3.5) g/dL Albumin/Globulin Ratio 0.9 L (1.1-2.2) Urine Color (Yellow) Urine Clarity (Clear) Urine pH (5.0-8.0) pH Units Ur Specific [place] (1.010-1.025) Urine Protein (Neg-Trace) mg/dL Urine Glucose (UA) (Normal) mg/dL Urine Ketones (Negative) mg/dL Urine Blood (Negative) Urine Nitrite (Negative) Urine Bilirubin (Negative) Urine Urobilinogen (Normal) mg/dL Ur Leukocyte Esterase (Negative) Ur Culture Indicated? (NO) 01/24/17 01/24/17 Range/Units 17:53 19:20 WBC (4.3-11.1) K/mcL RBC (3.82-4.97) M/mcL Hgb (11.5-15.4) g/dL Hct (35.3-44.9) % MCV (83.0-100.0) fL MCH (28.0-33.3) pg MCHC (31.6-35.5) g/dL RDW (11.5-14.5) % Plt Count (140-400) K/mcL MPV (9.4-12.4) fL Immature Gran % (0-4) % Seg Neutrophils % % Lymphocytes % % Monocytes % % Eosinophils % % Basophils % % Neutrophils # (1.6-8.9) K/mcL Lymphocytes # (0.6-4.6) K/mcL Monocytes # (0.0-1.3) K/mcL Eosinophils # (0.0-0.6) K/mcL Basophils # (0.0-0.2) K/mcL Platelet Estimate (Normal) Hypochromasia (Not Present) Sodium (136-145) mEq/L Potassium (3.5-4.5) mEq/L Chloride (98-109) mEq/L Carbon Dioxide (19-29) mEq/L BUN (7-20) mg/dL Creatinine (0.57-1.11) mg/dL Est GFR ( Amer) (> 60) Est GFR (Non-Af Amer) (> 60) BUN/Creatinine Ratio (6-26) Glucose (70-99) mg/dL Calculated Osmolality (280-300) Lactic Acid (0.5-2.2) mmol/L Calcium (8.6-10.8) mg/dL Total Bilirubin (0.2-1.2) mg/dL Direct Bilirubin (0.0-0.5) mg/dL Indirect Bilirubin (0.0-1.2) mg/dL AST (5-34) Units/L ALT (0-55) Units/L Alkaline Phosphatase (38-126) Units/L Troponin I 0.00 (0-0.03) ng/mL Serum Total Protein (6.0-8.3) g/dL Albumin (3.5-5.0) g/dL Globulin (2.4-3.5) g/dL Albumin/Globulin Ratio (1.1-2.2) Urine Color Yellow (Yellow) Urine Clarity Clear (Clear) Urine pH 6.5 (5.0-8.0) pH Units Ur Specific [place] 1.022 (1.010-1.025) Urine Protein Negative (Neg-Trace) mg/dL Urine Glucose (UA) Normal (Normal) mg/dL Urine Ketones Negative (Negative) mg/dL Urine Blood Negative (Negative) Urine Nitrite Negative (Negative) Urine Bilirubin Negative (Negative) Urine Urobilinogen Normal (Normal) mg/dL Ur Leukocyte Esterase Negative (Negative) Ur Culture Indicated? NO (NO) Critical Care Time Critical Care Time: Yes Total Critical Care Time: 30 Attestation: 30 minutes of critical care time was constipation acute respiratory distress, infesting some aspiration of COPD, recurrent episodes of albuterol aerosols, Decadron, advanced line antibiotics
[2017-01-24] MEDS ORDERED: Dexamethasone 4 MG/ML VIAL IVP ONE (17:52)
[2017-01-24] MEDS ORDERED: Vancomycin 750 MG in D5% in Water 250 ML IVPB ONE (17:52)
[2017-01-24] MEDS ORDERED: Piperacillin/Tazobactam 3.375 GM in 0.9 % Sodium Chloride Mini Bag 100 ML IVPB ONE (17:52)
[2017-01-24 18:08] LABS: Basophils # 0.1 K/mcL (0.0-0.2); Basophils % 0.2 %; Hematocrit 30.6 % (35.3-44.9); Hemoglobin 9.5 g/dL (11.5-15.4); Immature Granulocytes % 1.7 % (0-4); Lymphocytes # 2.8 K/mcL (0.6-4.6); Mean Corpuscular Hemoglobin 29.5 pg (28.0-33.3); Mean Platelet Volume 8.8 fL (9.4-12.4); Monocytes # 0.7 K/mcL (0.0-1.3); Monocytes % 1.5 %; Neutrophils # 42.3 K/mcL (1.6-8.9); Platelet Count 491 K/mcL (140-400); Red Blood Count 3.22 M/mcL (3.82-4.97); Red Cell Distribution Width 15.6 % (11.5-14.5); Segmented Neutrophils % 90.6 %
[2017-01-24] MEDS ORDERED: Piperacillin/Tazobactam 3.375 GM in Water for inj. (sterile) 20 ML IVPB ONE (18:15)
[2017-01-24 18:18] LABS: Alanine Aminotransferase 14 Units/L (0-55); Albumin/Globulin Ratio 0.9 (1.1-2.2); Alkaline Phosphatase 123 Units/L (38-126); Aspartate Amino Transferase 12 Units/L (5-34); BUN/Creatinine Ratio 23 (6-26); Bilirubin,Direct 0.1 mg/dL (0.0-0.5); Bilirubin,Indirect 0.1 mg/dL (0.0-1.2); Bilirubin,Total 0.2 mg/dL (0.2-1.2); Blood Urea Nitrogen 15 mg/dL (7-20); Calcium 9.3 mg/dL (8.6-10.8); Carbon Dioxide 28 mEq/L (19-29); Chloride 105 mEq/L (98-109); Globulin 3.2 g/dL (2.4-3.5); Glucose 107 mg/dL (70-99); Osmolality,Calculated 293 (280-300); Potassium 3.5 mEq/L (3.5-4.5); Sodium 141 mEq/L (136-145); Total Protein 6.2 g/dL (6.0-8.3); eGFR For African Americans > 60 (> 60); eGFR For Non-African Americans > 60 (> 60)
[2017-01-24 18:54] LABS: Hypochromasia Present (Not Present); Platelet Estimate Increased (Normal)
[2017-01-24 19:30] LABS: Bilirubin,Urine Negative (Negative); Blood,Urine Negative (Negative); Clarity,Urine Clear (Clear); Color,Urine Yellow (Yellow); Glucose,Urine (UA) Normal (Normal); Ketones,Urine Negative (Negative); Leukocyte Esterase,Urine Negative (Negative); Nitrite,Urine Negative (Negative); PH,Urine 6.5 pH Units (5.0-8.0); Protein,Urine Negative (Neg-Trace); Specific Gravity,Urine 1.022 (1.010-1.025); Urobilinogen,Urine Normal (Normal)
[2017-01-24] MEDS ORDERED: *HR* Morphine 2 MG/ML SYRINGE IVP ONE (19:50)
[2017-01-24] MEDS ORDERED: Ondansetron 4 MG/2 ML VIAL IVP ONE (19:50)
--- NOTE | 2017-01-24 21:08 | Internal Med History&Physical ---
<OlivierGab chan - Last Filed: 01/25/17 01:08> Date of Encounter: 01/25/17 Time of Encounter: 20:30 Assessment and Plan (1) Acute exacerbation of chronic obstructive airways disease Current visit: Yes Status: Acute Patient has history of multiple hospitalizations secondary to COPD exacerbation. She has at least a 48 pack year history of smoking. She presents with a productive cough and SOB. O2 sat was at 96%. Her WBC was elevated ay 46.7. CT shows masslike consolidations in the right upper lobe, mildly improved from the previous chest CT. Her exacerbation was most likely triggered by PNA due to recent chemotherapy treatment. - Duonebs. - Prednisone 40 mg PO daily. - IVF with KCL. (2) HCAP (healthcare-associated pneumonia) Current visit: No Status: Acute Patient was recently hospitalized last month for PNA. Her WBC is elevated at 45.7. She was given a dose of zosyn and vanc in the ED. - Blood cultures pending. - Continue zosyn + vanc. (3) SIRS (systemic inflammatory response syndrome) Current visit: Yes Status: Acute Patient meets SIRS criteria with an elevated WBC count at 46.7 and elvated hr at 113. - Trend WBC count. - Continue zosyn + vanc. - Blood cultures pending. (4) Small cell 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 Current visit: No Status: Chronic CT shows 2.2 x 2.3 cm right hilar/central lung mass, which is the site of the patient's primary lung cancer, which is stable. (5) Compression fracture of body of thoracic vertebra Current visit: No Status: Chronic CT shows inferior endplate fracture of T8, new since the previous MRI, but stable from the most recent CT. This fracture is subacute. - Pain control with ibuprofen, percocets, and morphine as needed per pain scale. (6) DVT prophylaxis Current visit: No Status: Acute - Lovenox 40 mg SQ qd. Internal Medicine - H&P: HPI Chief complaint: SOB Admitted From: Emergency Dept History of present illness: Ms. Keenan is a 61 year old female with a PMH of metastatic Small Cell Carcinoma of R lung with metastasis to liver and COPD that presents for shortness of breath. Patient says that she had completed her chemotherapy round yesterday and started to feel short of breath this afternoon. She says that she always becomes this way after completing her chemotherapy sessions and that she has been hospitalized multiple times for PNA (last hospitalization was last month). She was given levaquin by her oncologist to take if she started to experience symptoms after her chemotherapy. She took one dose earlier today. She was diagnosed with CA in 10/2016 and has been undergoing chemotherapy since. She currently admits to a productive cough with yellow sputum. She denies any fever, nausea, vomiting, hematemesis, chest pain, or FROST. She has quit smoking for the past 3-4 months. She has a 48 pack year history of smoking. She is currently on oxygen at home. Past Med Surg Social Fam HX - Past Medical History Medical history: cancer, COPD, hypertension Psychiatric history: anxiety, depression - Past Surgical History Surgical History: hysterectomy - Social History Smoking Status: Former smoker Smokeless Tobacco Status: No Alcohol use: none Drug use: none - Family History Sister Living Status: Still Living Hx Family Cardiac Disorders: Yes (HTN) Hx Family Cancer: Yes (cervical) Mother Living Status: Father Living Status: Hx Family Cardiac Disorders: Yes Internal Medicine - H&P: Meds DULoxetine [Cymbalta] 30 mg PO HS 02/15/16 [History] Trazodone HCl 200 mg PO HS 02/15/16 [History] Melatonin/Pyridoxine HCl (B6) [Melatonin 3 mg Tablet] 3 mg PO HS 05/02/16 [ History] Albuterol Neb [Proventil Neb] 2.5 mg IH Q6H PRN 10/14/16 [History] Albuterol Sulfate [Albuterol Inhaler] 2 puff IH Q6H PRN 10/14/16 [History] Budesonide/Formoterol 160/4.5 [Symbicort 160/4.5] 2 puff IH BIDR 10/14/16 [ History] Oxygen 2 l NS AD 10/14/16 [History] Tiotropium [Spiriva] 18 mcg IH DAILY 10/14/16 [History] Ondansetron [Zofran ODT] 8 mg SL Q4HR PRN #20 tab.rapdis 11/20/16 [Rx] Dexamethasone [Decadron] 4 mg PO BID #30 tab 11/27/16 [Rx] Magic Mouthwash [Magic Mouthwash BLM] 10 ml PO QID PRN #240 ml 11/27/16 [Rx] LORazepam [Ativan] 0.5 mg PO BID #60 tablet 11/29/16 [Rx] Ascorbate Calcium [Vitamin C] 500 mg PO DAILY 12/14/16 [History] Furosemide [Lasix] 20 mg PO DAILY PRN #15 tablet 12/22/16 [Rx] Metoprolol XL (24 HR) Succ [Toprol Xl] 25 mg PO DAILY #30 tab.er.24h 12/22/16 [ Rx] Nicotine Patch [Nicoderm] 14 mg TD DAILY #30 patch.td24 12/22/16 [Rx] Polyethylene Glycol 3350 [MiraLAX] 17 gm PO DAILY PRN #30 powd.pack 12/22/16 [Rx ] Sennosides/Docusate Sodium [Senna-Docusate Sodium Tablet] 2 each PO BID PRN #60 tablet 12/22/16 [Rx] Calcium Carbonate/Vitamin D3 [Calcium 500 + Vit D Caplet] 2 each PO DAILY #60 tablet 12/26/16 [Rx] Oxycodone HCl 10 mg PO TID #90 tab 12/26/16 [Rx] Oxycodone HCl/Acetaminophen [Endocet 10-325 mg Tablet] 1 each PO Q8H 01/08/17 [ History] Levofloxacin [Levaquin] 500 mg PO DAILY #7 tablet 01/21/17 [Rx] 3 Allergy/AdvReac Type Severity Reaction Status Date / Time No Known Allergies Allergy Verified 12/14/16 17:49 All Systems PM: A 10-system review of systems was performed and is negative for pertinent findings except as documented above in the HPI. - Constitutional Constitutional: weakness, no chills, no fever(s) - Cardiovascular Cardiovascular ROS IM: dyspnea, lightheadedness, no chest pain, no palpitations - Respiratory Respiratory: cough, dyspnea, wheezing, chest congestion, change in phlegm color , no hemoptysis - Gastrointestinal Gastrointestinal: constipation (Due to pain medications), diarrhea (Due to laxatives. ), no abdominal pain, no hematemesis, no nausea, no vomiting - Genitourinary Genitourinary: no dysuria, no hematuria - Musculoskeletal Musculoskeletal ROS IM: back pain, myalgias - Neurological Neurological ROS: no headache(s) - Constitutional Vitals: Temp Pulse Resp BP Pulse Ox 97.9 F 113 18 119/80 98 01/24/17 17:42 01/24/17 17:42 01/24/17 20:45 01/24/17 17:42 01/24/17 20:45 General appearance: Present: mild distress, A&O X 3, pleasant, underweight, answers questions appropriately - Respiratory Respiratory exam: Present: wheezes (Bilaterally in posterior lung putnam. ). Absent: tachypnea - Cardiovascular Cardiovascular exam: Present: RRR, +S1, +S2 - GI/Abdominal GI/Abdominal exam: Present: distended, normal bowel sounds, soft. Absent: guarding, rebound, tenderness - Extremities Exam Extremities exam: Present: full ROM, normal capillary refill, normal inspection , radial pulses palpable and symmetrical. Absent: pedal edema, tenderness - Back Exam Back exam: Present: vertebral tenderness (Lower thoracic region). Absent: CVA tenderness (L), CVA tenderness (R) Internal Med - H&P Results - Labs CBC & Chem 7: 01/24/17 17:53 01/24/17 17:53 Labs: Short CBC 01/24/17 Range/Units 17:53 WBC 46.7 H* D (4.3-11.1) K/mcL Hgb 9.5 L (11.5-15.4) g/dL Hct 30.6 L (35.3-44.9) % Plt Count 491 H (140-400) K/mcL Neutrophils # 42.3 H (1.6-8.9) K/mcL BMP 01/24/17 17:53 Sodium 141 Potassium 3.5 Chloride 105 Carbon Dioxide 28 BUN 15 Creatinine 0.64 Glucose 107 H Calcium 9.3 Cardiac Enzymes 01/24/17 Range/Units 17:53 Troponin I 0.00 (0-0.03) ng/mL Liver Function 01/24/17 Range/Units 17:53 Total Bilirubin 0.2 (0.2-1.2) mg/dL Direct Bilirubin 0.1 (0.0-0.5) mg/dL AST 12 (5-34) Units/L ALT 14 (0-55) Units/L Alkaline Phosphatase 123 (38-126) Units/L Albumin 3.0 L (3.5-5.0) g/dL Urine 01/24/17 Range/Units 19:20 Urine Color Yellow (Yellow) Urine Clarity Clear (Clear) Urine pH 6.5 (5.0-8.0) pH Units Ur Specific [place] 1.022 (1.010-1.025) Urine Protein Negative (Neg-Trace) mg/dL Urine Glucose (UA) Normal (Normal) mg/dL - Impressions ITS Impressions Chest CTA 01/24/17 17:33 IMPRESSION: 1. No pulmonary embolism. 2. 2.2 x 2.3 cm right hilar/central lung mass, which is the site of the patient's primary lung cancer, which is stable. 3. Masslike consolidations in the right upper lobe, mildly improved from the previous chest CT. These are more likely infectious or inflammatory, although, metastatic disease is not excluded. Continued CT follow-up is suggested. 4. Moderate emphysema. 5. Inferior endplate fracture of T8, new since the previous MRI, but stable from the most recent CT. This fracture is subacute. The other thoracic fractures are subacute to chronic. D/ / 01/24/2017 19:41:10 Edouard Currie MD / [facility] Interpreting Provider: Edouard Currie MD <Esther Kelley - Last Filed: 01/25/17 02:50> Date of Encounter: 01/24/17 Internal Medicine - H&P: HPI History of present illness: Ms. Keenan is a 61 year old female All Systems PM: A 10-system review of systems was performed and is negative for pertinent findings except as documented above in the HPI. - Constitutional Vitals: Temp Pulse Resp BP Pulse Ox 98.3 F 110 16 119/70 95 01/25/17 00:50 01/25/17 00:50 01/25/17 00:50 01/25/17 00:50 01/25/17 00:50 Internal Med - H&P Results - Labs CBC & Chem 7: 01/24/17 17:53 01/24/17 17:53 - Attending Attestation Patient was seen on January 24 however note was dictated later. Patient was seen independently and personally by myself along with resident. She is presented with cough shortness of breath for the last few days and her white cell count is noted elevated and she is diagnosed with right-sided pneumonia as well as COPD exacerbation. She has a right upper lobe mass which needs further workup and probably morning hospitalist may involve pulmonology for that. She will be started on IV steroid Menest Mucinex and antibiotics. Her examination showed shallow breath sounds and wheezing.
[2017-01-24] MEDS ORDERED: Ondansetron 4 MG/2 ML VIAL IVP PRN (21:56)
[2017-01-24] MEDS ORDERED: Naloxone 0.4 MG/ML INJ IVP PRN (21:56)
[2017-01-24] MEDS ORDERED: Ibuprofen 400 MG TABLET PO PRN (21:56)
[2017-01-24] MEDS ORDERED: *HR* Morphine 2 MG/ML SYRINGE IVP PRN (21:56)
[2017-01-24] MEDS ORDERED: Sennosides/Docusate Sodium TABLET PO PRN (22:05)
[2017-01-24] MEDS ORDERED: 0.9 % Sodium Chloride w KCl 20 MEQ/1,000 ML MLS IVC SCH (23:00)
[2017-01-24] MEDS: Nicotine 14 MG PATCH.TD24 TD SCH (23:49)
[2017-01-24] MEDS: predniSONE 20 MG TABLET PO SCH (23:51)
[2017-01-24] MEDS: Melatonin 3 MG TABLET PO SCH (23:51)
[2017-01-24] MEDS: Ascorbic Acid 500 MG TABLET PO SCH (23:51)
[2017-01-25] MEDS: *HR* HYDROcodone/Acet 5/325 mg TABLET PO PRN ×5 (00:02→18:48)
[2017-01-25] MEDS: Piperacillin/Tazobactam 3.375 GM/200 ML BAG IVPB SCH ×3 (01:10→15:28)
[2017-01-25] MEDS: traZODone 50 MG TABLET PO SCH ×2 (01:22→20:08)
[2017-01-25] MEDS: Ipratropium/Albuterol Neb 3 ML IH SCH ×6 (03:22→23:24)
[2017-01-25 04:13] LABS: Hemoglobin 8.4 g/dL (11.5-15.4); Mean Corpuscular Hemoglobin 29.7 pg (28.0-33.3); Red Blood Count 2.83 M/mcL (3.82-4.97)
[2017-01-25 04:15] LABS: Hematocrit 27.1 % (35.3-44.9); Mean Corpuscular Volume 95.8 fL (83.0-100.0); Platelet Count 409 K/mcL (140-400); Red Cell Distribution Width 15.7 % (11.5-14.5)
[2017-01-25 04:24] LABS: BUN/Creatinine Ratio 20 (6-26); Blood Urea Nitrogen 12 mg/dL (7-20); Calcium 8.2 mg/dL (8.6-10.8); Carbon Dioxide 24 mEq/L (19-29); Chloride 109 mEq/L (98-109); Glucose 152 mg/dL (70-99); Osmolality,Calculated 299 (280-300); Potassium 4.3 mEq/L (3.5-4.5); Sodium 143 mEq/L (136-145); eGFR For African Americans > 60 (> 60); eGFR For Non-African Americans > 60 (> 60)
[2017-01-25 04:36] LABS: Neutrophils # 90.4 K/mcL (1.6-8.9); Platelet Estimate Increased (Normal)
[2017-01-25 04:37] LABS: Dohle Bodies Present (Not Present)
[2017-01-25] MEDS: *HR* Enoxaparin 40 MG/0.4 ML SYRINGE SQ SCH (05:20)
[2017-01-25] MEDS: Vancomycin 750 MG in D5% in Water 250 ML IVPB SCH ×2 (05:23→17:55)
[2017-01-25] MEDS ORDERED: Vancomycin 750 MG in D5% in Water 250 ML IVPB SCH (06:00)
[2017-01-25] MEDS ORDERED: Ipratropium/Albuterol Neb 3 ML IH PRN (09:18)
[2017-01-25] MEDS: predniSONE 20 MG TABLET PO SCH (09:50)
[2017-01-25] MEDS: Nicotine 14 MG PATCH.TD24 TD SCH (09:50)
[2017-01-25] MEDS: Ascorbic Acid 500 MG TABLET PO SCH (09:59)
[2017-01-25] MEDS ORDERED: Piperacillin/Tazobactam 3.375 GM/200 ML BAG IVPB SCH (14:00)
[2017-01-25] MEDS: Metoprolol XL (24 HR) Succ 25 MG TAB.ER.24H PO SCH (14:30)
--- NOTE | 2017-01-25 16:21 | Oncology Inp Consult Note ---
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 Recurrent hospitalizations with COPD/HCAP. Carboplatin day 1 and etoposide day 1-3 started 11/16/16, cycle 4 given 01/21-01/23 with neulasta day 4 on 01/24/17 (6 cycles planned). She has tolerated treatments well. CT imaging had shown clinical response after 2 cycles. Recent imaging 01/09/17 Recurrent hospitalization for pneumonia during treatment. She is admitted again today. Neulasta with chemo may contribute to leukocytosis, as well as superimposed infection. Patient states she is feeling better, and "wants to go home:' patinet still wheezing. Continue ATBs and prednisone. I advisded patinet she needs to stay. New orders: Mucinex 600 BID, change nebulizers to q 4 hour, as this is her home dose. Also, miralax BID until BM, then daily. Add lactobacillus. She was placed on levaquin recently as outpatient. We want to prevent C-diff. Chest CTA on 01/24 showed no pulmonary embolism, with stable primary 2.2 x 2.3 cm right hilar/central lung mass. Mass-like consolidations in the right upper lobe, mildly improved from the previous chest CT in December. These are more likely infectious or inflammatory, Continue to treat COPD/HCAP. She will need to see Dr Bird within [address] Angel occupational health and safety adviser, and will assess patient as well. We appreciate participating in your patient's care. (2) Acute exacerbation of chronic obstructive airways disease Status: Resolved (3) Acute and chronic respiratory failure ([id number]) Status: Acute Qualifiers: Respiratory failure complication: hypoxia Qualified Code(s): J96.21 - Acute and chronic respiratory failure with hypoxia (4) Leukocytosis Status: Resolved Qualifiers: Leukocytosis type: unspecified Qualified Code(s): D72.829 - Elevated white blood cell count, unspecified (5) HCAP (healthcare-associated pneumonia) Status: Acute - Data of Consult Patient: known to practice within the last 3 years Consult date: 01/25/17 Requesting Physician: Marisa New MD Primary Care Provider: Ron Ward MD - Consult Narrative Reason for consult: COPD/HCAP with small cell lung cancer History of present illness: Ms. Keenan is a 61 year old female with history of COPD on home oxygen, former smoker was seen initially in the hospital in October 2016 when she presented with pneumonia. She has been hospitalized multiple times with recurrent episodes of pneumonia. She underwent a chest x-ray, CT scan that showed large right hilar mass measuring approximately 5.3 x 3.6 cm concerning for malignancy, along with a linear mass extending away from the right hilar region in the right middle lobe measuring 3.2 x 1.1 cm. She was seen at the pulmonology department on 11/07 for a bronchoscopy. She was readmitted after a short stay at home due to respirarory distress. 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 CT ( 11/10) showed too liver lesions in both lobes consistent with metastatic disease. Her pathology from 11/07 from the right hilar mass (FNA) was reported as small cell lung cancer. She had MRI of the brain that was negative for any metastatic disease. CT scan of the abdomen showed a 4 cm lesion in the liver along with innumerable low-density hepatic lesions, howard hepatis and gastrohepatic lymphadenopathy measuring the largest 2.9 cm. Received inpatient chemotherapy cycle 1 with carboplatin, etoposide days in a row, with Neulasta support cycle 1 day 1 on 11/16/2016. She has been hospitalized with acute pain in the back and COPD exacerbation in November 2016. She underwent MRI of the thoracic spine that showed subacute compression fractures at T8, T12 enhancement of spinous processes of T11 also noted. Patient with stage IV small cell lung cancer with distant metastatic disease-- liver, recurrent infections and symptomatic with SOB in between episodes- started C1 11/16/16 of carboplatin day 1 and etoposide days 1-[address] imaging had shown clinical response after 2 cycles. Recent imaging 01/09/17. Cycle 4 given 01/21 tthrough 01/23/17, neulasta injection on 01/24/18. Recurrent hospitalization for pneumonia/COPD Prolia 60mg 01/01/17 for osteopenia/fractures Admitted to [facility] 01/25/17 with COPD/HCAP. Oncology consulted for recommendations Past Med Surg Social Fam HX - Past Medical History Medical history: cancer, COPD, hypertension Psychiatric history: anxiety, depression - Past Surgical History Surgical History: hysterectomy - Social History Smoking Status: Former smoker Smokeless Tobacco Status: No Alcohol use: none Drug use: none - Family History Sister Living Status: Still Living Hx Family Cardiac Disorders: Yes (HTN) Hx Family Cancer: Yes (cervical) Mother Living Status: Father Adopted: No Living Status: Hx Family Cardiac Disorders: Yes Hx Family Respiratory Disorders: Yes (mother copd) Hx Family Cancer: No Hx Family GI Disorders: No Hx Family Genitourinary Disorders: No Hx Family Endocrine Disorder: No Hx Family Musculoskeletal Disorders: No Hx Family Neuromuscular Disorders: No Hx Family Neurologic Disorders: No Hx Family HEENT Disorders: No Hx Family Autoimmune Disorders: No Hx Family Reproductive Disorders: No Hx Family Psychosocial Disorders: No Hx Family Medical Disorders: No Medications and Allergies DULoxetine [Cymbalta] 30 mg PO HS 02/15/16 [History] Trazodone HCl 200 mg PO HS 02/15/16 [History] Melatonin/Pyridoxine HCl (B6) [Melatonin 3 mg Tablet] 3 mg PO HS 05/02/16 [ History] Albuterol Neb [Proventil Neb] 2.5 mg IH Q6H PRN 10/14/16 [History] Albuterol Sulfate [Albuterol Inhaler] 2 puff IH Q6H PRN 10/14/16 [History] Budesonide/Formoterol 160/4.5 [Symbicort 160/4.5] 2 puff IH BIDR 10/14/16 [ History] Oxygen 2 l NS AD 10/14/16 [History] Tiotropium [Spiriva] 18 mcg IH DAILY 10/14/16 [History] Ondansetron [Zofran ODT] 8 mg SL Q4HR PRN #20 tab.rapdis 11/20/16 [Rx] Dexamethasone [Decadron] 4 mg PO BID #30 tab 11/27/16 [Rx] Magic Mouthwash [Magic Mouthwash BLM] 10 ml PO QID PRN #240 ml 11/27/16 [Rx] LORazepam [Ativan] 0.5 mg PO BID #60 tablet 11/29/16 [Rx] Ascorbate Calcium [Vitamin C] 500 mg PO DAILY 12/14/16 [History] Furosemide [Lasix] 20 mg PO DAILY PRN #15 tablet 12/22/16 [Rx] Metoprolol XL (24 HR) Succ [Toprol Xl] 25 mg PO DAILY #30 tab.er.24h 12/22/16 [ Rx] Nicotine Patch [Nicoderm] 14 mg TD DAILY #30 patch.td24 12/22/16 [Rx] Polyethylene Glycol 3350 [MiraLAX] 17 gm PO DAILY PRN #30 powd.pack 12/22/16 [Rx ] Sennosides/Docusate Sodium [Senna-Docusate Sodium Tablet] 2 each PO BID PRN #60 tablet 12/22/16 [Rx] Calcium Carbonate/Vitamin D3 [Calcium 500 + Vit D Caplet] 2 each PO DAILY #60 tablet 12/26/16 [Rx] Oxycodone HCl 10 mg PO TID #90 tab 12/26/16 [Rx] Oxycodone HCl/Acetaminophen [Endocet 10-325 mg Tablet] 1 each PO Q8H 01/08/17 [ History] Levofloxacin [Levaquin] 500 mg PO DAILY #7 tablet 01/21/17 [Rx] 3 Allergy/AdvReac Type Severity Reaction Status Date / Time No Known Allergies Allergy Verified 12/14/16 17:49 Respiratory: Present: cough, dyspnea, dyspnea on exertion Musculoskeletal: Present: back pain Oncology - Exam - Constitutional Vitals: Temp Pulse Resp BP Pulse Ox 98.2 F 99 16 156/97 92 01/25/17 15:31 01/25/17 15:31 01/25/17 15:31 01/25/17 15:31 01/25/17 15:31 General appearance: cooperative, no acute distress - Head Head exam: Present: atraumatic, normal inspection - Eye Eye exam: Present: normal appearance Pupils: Present: PERRL - ENT ENT exam: Present: mucous membranes moist - Neck Neck exam: Present: full ROM, normal inspection - Respiratory Respiratory exam: Present: decreased breath sounds, wheezes - Cardiovascular Cardiovascular exam: Present: RRR, +S1, +S2 - GI/Abdominal GI/Abdominal exam: Present: normal bowel sounds, soft - Extremities Exam Extremities exam: Present: full ROM, normal inspection - Back Exam Back exam: Present: vertebral tenderness - Neurological Exam Neurological exam: Present: alert, oriented X3, no focal deficits - Psychiatric Psychiatric exam: Present: normal affect, normal mood - Skin Skin exam: Present: dry, intact, warm Oncology - Results Labs: Laboratory Last Values WBC 90.4 K/mcL (4.3-11.1) H* D 01/25/17 03:55 RBC 2.83 M/mcL (3.82-4.97) L 01/25/17 03:55 Hgb 8.4 g/dL (11.5-15.4) L 01/25/17 03:55 Hct 27.1 % (35.3-44.9) L 01/25/17 03:55 MCV 95.8 fL (83.0-100.0) 01/25/17 03:55 MCH 29.7 pg (28.0-33.3) 01/25/17 03:55 MCHC 31.0 g/dL (31.6-35.5) L 01/25/17 03:55 RDW 15.7 % (11.5-14.5) H 01/25/17 03:55 Plt Count 409 K/mcL (140-400) H 01/25/17 03:55 MPV 9.0 fL (9.4-12.4) L 01/25/17 03:55 Immature Gran % 1.7 % (0-4) 01/24/17 17:53 Seg Neutrophils % 94.0 % 01/25/17 03:55 Band Neutrophils % 6.0 % (0-4) H 01/25/17 03:55 Lymphocytes % 6.0 % 01/24/17 17:53 Monocytes % 1.5 % 01/24/17 17:53 Eosinophils % 0.0 % 01/24/17 17:53 Basophils % 0.2 % 01/24/17 17:53 Neutrophils # 90.4 K/mcL (1.6-8.9) H 01/25/17 03:55 Lymphocytes # 2.8 K/mcL (0.6-4.6) 01/24/17 17:53 Monocytes # 0.7 K/mcL (0.0-1.3) 01/24/17 17:53 Eosinophils # 0.0 K/mcL (0.0-0.6) 01/24/17 17:53 Basophils # 0.1 K/mcL (0.0-0.2) 01/24/17 17:53 Dohle Bodies Present (Not Present) A 01/25/17 03:55 Platelet Estimate Increased (Normal) H 01/25/17 03:55 Hypochromasia Present (Not Present) A 01/24/17 17:53 Sodium 143 mEq/L (136-145) 01/25/17 03:55 Potassium 4.3 mEq/L (3.5-4.5) 01/25/17 03:55 Chloride 109 mEq/L (98-109) 01/25/17 03:55 Carbon Dioxide 24 mEq/L (19-29) 01/25/17 03:55 BUN 12 mg/dL (7-20) 01/25/17 03:55 Creatinine 0.59 mg/dL (0.57-1.11) 01/25/17 03:55 Est GFR ( Amer) > 60 (> 60) 01/25/17 03:55 Est GFR (Non-Af Amer) > 60 (> 60) 01/25/17 03:55 BUN/Creatinine Ratio 20 (6-26) 01/25/17 03:55 Glucose 152 mg/dL (70-99) H 01/25/17 03:55 Calculated Osmolality 299 (280-300) 01/25/17 03:55 Lactic Acid 1.9 mmol/L (0.5-2.2) 01/24/17 17:53 Calcium 8.2 mg/dL (8.6-10.8) L 01/25/17 03:55 Total Bilirubin 0.2 mg/dL (0.2-1.2) 01/24/17 17:53 Direct Bilirubin 0.1 mg/dL (0.0-0.5) 01/24/17 17:53 Indirect Bilirubin 0.1 mg/dL (0.0-1.2) 01/24/17 17:53 AST 12 Units/L (5-34) 01/24/17 17:53 ALT 14 Units/L (0-55) 01/24/17 17:53 Alkaline Phosphatase 123 Units/L (38-126) 01/24/17 17:53 Troponin I 0.00 ng/mL (0-0.03) 01/24/17 17:53 Serum Total Protein 6.2 g/dL (6.0-8.3) 01/24/17 17:53 Albumin 3.0 g/dL (3.5-5.0) L 01/24/17 17:53 Globulin 3.2 g/dL (2.4-3.5) 01/24/17 17:53 Albumin/Globulin Ratio 0.9 (1.1-2.2) L 01/24/17 17:53 Urine Color Yellow (Yellow) 01/24/17 19:20 Urine Clarity Clear (Clear) 01/24/17 19:20 Urine pH 6.5 pH Units (5.0-8.0) 01/24/17 19:20 Ur Specific [place] 1.022 (1.010-1.025) 01/24/17 19:20 Urine Protein Negative mg/dL (Neg-Trace) 01/24/17 19:20 Urine Glucose (UA) Normal mg/dL (Normal) 01/24/17 19:20 Urine Ketones Negative mg/dL (Negative) 01/24/17 19:20 Urine Blood Negative (Negative) 01/24/17 19:20 Urine Nitrite Negative (Negative) 01/24/17 19:20 Urine Bilirubin Negative (Negative) 01/24/17 19:20 Urine Urobilinogen Normal mg/dL (Normal) 01/24/17 19:20 Ur Leukocyte Esterase Negative (Negative) 01/24/17 19:20 Ur Culture Indicated? NO (NO) 01/24/17 19:20 Consult Discharge Plan - Plan Referrals: Ron Ward MD [Primary Care Provider] - 02/01/17 2:00 pm Linda Bird MD [Partnered Physician] - <James Angel - Last Filed: 01/25/17 18:15> Date of Encounter: 01/25/17 - Data of Consult Requesting Physician: Marisa New MD Primary Care Provider: Ron Ward MD - Consult Narrative History of present illness: Ms. Keenan is a 61 year old female Oncology - Exam - Constitutional Vitals: Temp Pulse Resp BP Pulse Ox 98.2 F 99 16 156/97 92 01/25/17 15:31 01/25/17 15:31 01/25/17 15:31 01/25/17 15:31 01/25/17 15:31 - Attending Attestation 1. Stage IV small cell carcinoma from lung with liver metastasis. She is getting palliative chemotherapy with carboplatin and etoposide Plan is to give 6 cycles Carboplatin dose reduced to AUC 4 on day 1 and etoposide 80 mg/m day 1-3 Cycle one 11/16/2016 and she finished cycle 3 on 01/21/2017. She received Neulasta on 01/24/2017 She has shown improvement chemotherapy 2. Community-acquired pneumonia angiogram chest 01/24/2017 right lung nodule 2.3 cm stable right upper lobe infiltrate likely pneumonia. She was hospitalized recently for that and readmitted now. Blood cultures have been negative December 2016. She is currently receiving Zosyn IV and vancomycin IV Also on prednisone 40 mg he would daily 3. Leukocytosis with neutrophil count 90,000. Likely this is combination of sepsis and Neulasta. Steroids may have contributed to neutropenia as well
--- NOTE | 2017-01-25 17:07 | Internal Med Progress Note ---
Date of Encounter: 01/25/17 Time of Encounter: 15:10 - Assessment and plan (1) Acute exacerbation of chronic obstructive airways disease Current Visit: No Status: Resolved Assessment and plan: likely secondary to HCAP continue IV abx, systemic steroids, bronchodilator support O2 supplementation will closely monitor resp status noted to have inc WBC due to recent administration of neulasta f/u blood cultures (2) Healthcare-associated pneumonia Current Visit: No Status: Resolved Assessment and plan: as listed above (3) DVT prophylaxis Current Visit: No Status: Acute Assessment and plan: Lovenox SQ (4) Hypertension Current Visit: No Status: Chronic Assessment and plan: BP within acceptable range continue home meds Qualifiers: Hypertension type: essential hypertension Qualified Code(s): I10 - Essential (primary) hypertension (5) Small cell 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 Current Visit: No Status: Chronic Assessment and plan: oncology on board and consultation appreciated continue home pain meds stool softeners added for bowel regimen s/p chemotherapy on 01/24/17 - Subjective Interval history: Patient seen and examined at bedside. Resting in bed and reports of feeling significantly better compared to previous day. Noted to have bilateral expiratory wheezing on auscultation. Noted to have sinus tachycardia however reported of not receiving her home dose of Metoprolol. restarted home dose of Metoprolol with better rate control Pt received Neulasta prior to her hospitalization - Constitutional Vitals: Temp Pulse Resp BP Pulse Ox 98.2 F 99 16 156/97 92 01/25/17 15:31 01/25/17 15:31 01/25/17 15:31 01/25/17 15:31 01/25/17 15:31 General appearance: Present: cooperative, A&O X 3, pleasant, no acute distress, answers questions appropriately - Head Head exam: Present: atraumatic, normocephalic - Eye Eye exam: Present: conjuntiva pink, sclera anicteric - Respiratory Respiratory exam: Present: wheezes (b/l expiratory wheezing ). Absent: respiratory distress - Cardiovascular Cardiovascular exam: Present: +S1, +S2, tachycardia. Absent: diastolic murmur, systolic murmur - GI/Abdominal GI/Abdominal exam: Present: normal bowel sounds, soft, no peritoneal signs. Absent: distended, tenderness - Extremities Exam Extremities exam: Present: warm, radial pulses palpable and symmetrical. Absent : calf tenderness, cyanotic, pedal edema - Neurological Exam Neurological exam: Present: alert, oriented X3 - Psychiatric Psychiatric exam: Present: normal affect, normal mood Internal Medicine: Result - Labs CBC & Chem 7: 01/25/17 03:55 01/25/17 03:55 Consult Discharge Plan - Plan Referrals: Ron Ward MD [Primary Care Provider] - 02/01/17 2:00 pm Linda Bird MD [Partnered Physician] -
[2017-01-25] MEDS: Melatonin 3 MG TABLET PO SCH (20:08)
[2017-01-25] MEDS: *HR* LORazepam 0.5 MG TABLET PO SCH (20:11)
[2017-01-25] MEDS: Lactobacillus 1 EACH CAP.SPRINK PO SCH (20:11)
[2017-01-26] MEDS: Piperacillin/Tazobactam 3.375 GM/200 ML BAG IVPB SCH ×4 (00:26→23:17)
[2017-01-26] MEDS: *HR* HYDROcodone/Acet 5/325 mg TABLET PO PRN ×4 (02:22→18:49)
[2017-01-26] MEDS: Ipratropium/Albuterol Neb 3 ML IH SCH ×6 (03:34→23:38)
[2017-01-26] MEDS: *HR* Enoxaparin 40 MG/0.4 ML SYRINGE SQ SCH (04:59)
[2017-01-26 05:08] LABS: Red Cell Distribution Width 15.7 % (11.5-14.5)
[2017-01-26 05:09] LABS: Hematocrit 25.6 % (35.3-44.9); Hemoglobin 7.9 g/dL (11.5-15.4); Mean Corpuscular HGB Conc 30.9 g/dL (31.6-35.5); Mean Corpuscular Hemoglobin 29.7 pg (28.0-33.3); Mean Corpuscular Volume 96.2 fL (83.0-100.0); Platelet Count 388 K/mcL (140-400); Red Blood Count 2.66 M/mcL (3.82-4.97)
[2017-01-26 05:18] LABS: BUN/Creatinine Ratio 17 (6-26); Blood Urea Nitrogen 10 mg/dL (7-20); Carbon Dioxide 28 mEq/L (19-29); Chloride 111 mEq/L (98-109); Glucose 87 mg/dL (70-99); Magnesium 1.6 mg/dL (1.6-2.6); Osmolality,Calculated 300 (280-300); Phosphorous 2.2 mg/dL (2.3-4.7); Potassium 3.4 mEq/L (3.5-4.5); Sodium 146 mEq/L (136-145); eGFR For African Americans > 60 (> 60); eGFR For Non-African Americans > 60 (> 60)
[2017-01-26 05:39] LABS: Hypersegmented Neutrophils Present (Not Present); Lymphocytes # 3.6 K/mcL (0.6-4.6); Monocytes # 8.9 K/mcL (0.0-1.3); Neutrophils # 76.6 K/mcL (1.6-8.9); Platelet Estimate Normal (Normal); Reactive Lymphocytes Present (Not Present)
[2017-01-26 05:40] LABS: Anisocytosis 1+ (Not Present)
[2017-01-26] MEDS ORDERED: Vancomycin 1,250 MG in D5% in Water 250 ML IVPB ONE (06:45)
[2017-01-26] MEDS: predniSONE 20 MG TABLET PO SCH (09:35)
[2017-01-26] MEDS: *HR* LORazepam 0.5 MG TABLET PO SCH ×2 (09:35→20:33)
[2017-01-26] MEDS: Lactobacillus 1 EACH CAP.SPRINK PO SCH ×2 (09:35→20:33)
[2017-01-26] MEDS: Nicotine 14 MG PATCH.TD24 TD SCH (09:35)
[2017-01-26] MEDS: Ascorbic Acid 500 MG TABLET PO SCH (09:36)
[2017-01-26] MEDS: Metoprolol XL (24 HR) Succ 25 MG TAB.ER.24H PO SCH (09:36)
--- NOTE | 2017-01-26 13:56 | Electrocardiograph Report ---
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
--- NOTE | 2017-01-26 14:26 | Internal Med Progress Note ---
Date of Encounter: 01/26/17 Time of Encounter: 12:55 - Assessment and plan (1) Acute exacerbation of chronic obstructive airways disease Current Visit: No Status: Resolved Assessment and plan: likely secondary to HCAP continue IV abx, systemic steroids, bronchodilator support O2 supplementation will closely monitor resp status noted to have inc WBC due to recent administration of neulasta prelim blood cultures: No growth (2) Healthcare-associated pneumonia Current Visit: No Status: Resolved Assessment and plan: as listed above (3) DVT prophylaxis Current Visit: No Status: Acute Assessment and plan: Lovenox SQ (4) Hypertension Current Visit: No Status: Chronic Assessment and plan: BP within acceptable range continue home meds Qualifiers: Hypertension type: essential hypertension Qualified Code(s): I10 - Essential (primary) hypertension (5) Small cell 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 Current Visit: No Status: Chronic Assessment and plan: oncology on board and consultation appreciated continue home pain meds stool softeners as needed s/p chemotherapy on 01/24/17 (6) Electrolyte abnormality Current Visit: Yes Status: Acute Assessment and plan: Hypokalemia and Hypophosphatemia K and Phos supplemented continue to monitor electrolytes and replace as needed - Subjective Interval history: Patient seen and examined with family present at bedside. Pt reports of improvement in her breathing and no overnight issues reported given patient's immunocompromised status, will continue IV abx for another night and wait for the blood cultures to be negative for atleast 48 hours. If patient remains clinically stable, likely d/c in am with PO abx. - Constitutional Vitals: Temp Pulse Resp BP Pulse Ox 98.9 F 91 18 119/67 95 01/26/17 10:59 01/26/17 10:59 01/26/17 11:15 01/26/17 10:59 01/26/17 11:15 General appearance: Present: cooperative, A&O X 3, pleasant, no acute distress, answers questions appropriately - Head Head exam: Present: atraumatic, normocephalic - Eye Eye exam: Present: conjuntiva pink, sclera anicteric - Respiratory Respiratory exam: Absent: respiratory distress, wheezes (coarse breath sounds on bilateral bases) - Cardiovascular Cardiovascular exam: Present: RRR, +S1, +S2. Absent: diastolic murmur, gallop, rubs, systolic murmur - GI/Abdominal GI/Abdominal exam: Present: normal bowel sounds, soft, no peritoneal signs. Absent: distended, tenderness - Extremities Exam Extremities exam: Present: warm, radial pulses palpable and symmetrical. Absent : calf tenderness, cyanotic, pedal edema - Neurological Exam Neurological exam: Present: alert, oriented X3 Internal Medicine: Result - Labs CBC & Chem 7: 01/26/17 04:48 01/26/17 04:48 Labs: Short CBC 01/26/17 Range/Units 04:48 WBC 89.1 H* (4.3-11.1) K/mcL Hgb 7.9 L (11.5-15.4) g/dL Hct 25.6 L (35.3-44.9) % Plt Count 388 (140-400) K/mcL Neutrophils # 76.6 H (1.6-8.9) K/mcL BMP 01/26/17 04:48 Sodium 146 H Potassium 3.4 L Chloride 111 H Carbon Dioxide 28 BUN 10 Creatinine 0.60 Glucose 87 Calcium 8.0 L Consult Discharge Plan - Plan Referrals: Ron Ward MD [Primary Care Provider] - 02/01/17 2:00 pm Linda Bird MD [Partnered Physician] -
[2017-01-26] MEDS: Vancomycin 1,000 MG in D5% in Water 250 ML IVPB SCH (18:41)
[2017-01-26] MEDS: traZODone 50 MG TABLET PO SCH (20:33)
[2017-01-26] MEDS: Melatonin 3 MG TABLET PO SCH (20:33)
[2017-01-27] MEDS: *HR* HYDROcodone/Acet 5/325 mg TABLET PO PRN ×2 (03:24→11:52)
[2017-01-27] MEDS: Ipratropium/Albuterol Neb 3 ML IH SCH ×3 (03:45→11:35)
[2017-01-27 04:30] LABS: BUN/Creatinine Ratio 17 (6-26); Blood Urea Nitrogen 10 mg/dL (7-20); Calcium 8.6 mg/dL (8.6-10.8); Carbon Dioxide 29 mEq/L (19-29); Chloride 109 mEq/L (98-109); Glucose 87 mg/dL (70-99); Magnesium 1.6 mg/dL (1.6-2.6); Osmolality,Calculated 294 (280-300); Phosphorous 2.6 mg/dL (2.3-4.7); Potassium 3.5 mEq/L (3.5-4.5); Sodium 143 mEq/L (136-145); eGFR For African Americans > 60 (> 60); eGFR For Non-African Americans > 60 (> 60)
[2017-01-27 04:36] LABS: Basophils % 0.1 %; Hemoglobin 8.1 g/dL (11.5-15.4)
[2017-01-27 04:38] LABS: Basophils # 0.1 K/mcL (0.0-0.2); Hematocrit 26.4 % (35.3-44.9); Immature Granulocytes % 21.5 % (0-4); Lymphocytes % 6.2 %; Mean Corpuscular HGB Conc 30.7 g/dL (31.6-35.5); Mean Corpuscular Hemoglobin 29.3 pg (28.0-33.3); Mean Corpuscular Volume 95.7 fL (83.0-100.0); Mean Platelet Volume 9.1 fL (9.4-12.4); Platelet Count 379 K/mcL (140-400); Red Blood Count 2.76 M/mcL (3.82-4.97); Red Cell Distribution Width 15.7 % (11.5-14.5); Segmented Neutrophils % 71.2 %
[2017-01-27 05:20] LABS: Lymphocytes # 5.4 K/mcL (0.6-4.6); Monocytes # 0.9 K/mcL (0.0-1.3); Neutrophils # 61.5 K/mcL (1.6-8.9)
[2017-01-27 05:27] LABS: Platelet Estimate Normal (Normal); Toxic Granulation Present (Not Present)
[2017-01-27] MEDS: *HR* Enoxaparin 40 MG/0.4 ML SYRINGE SQ SCH (06:20)
[2017-01-27] MEDS: Vancomycin 1,000 MG in D5% in Water 250 ML IVPB SCH (06:21)
[2017-01-27] MEDS: Piperacillin/Tazobactam 3.375 GM/200 ML BAG IVPB SCH (06:28)
[2017-01-27] MEDS: Nicotine 14 MG PATCH.TD24 TD SCH (09:00)
[2017-01-27] MEDS: *HR* LORazepam 0.5 MG TABLET PO SCH (09:02)
[2017-01-27] MEDS: Lactobacillus 1 EACH CAP.SPRINK PO SCH (09:02)
[2017-01-27] MEDS: predniSONE 20 MG TABLET PO SCH (09:03)
[2017-01-27] MEDS: Ascorbic Acid 500 MG TABLET PO SCH (09:03)
[2017-01-27] MEDS: Metoprolol XL (24 HR) Succ 25 MG TAB.ER.24H PO SCH (09:03)
--- NOTE | 2017-01-27 09:36 | Discharge Summary ---
Date of Encounter: 01/27/17 Time of Encounter: 08:50 - Discharge Diagnosis (1) Acute exacerbation of chronic obstructive airways disease Priority: Primary Status: Resolved (2) Healthcare-associated pneumonia Priority: Primary Status: Resolved (3) DVT prophylaxis Priority: Secondary Status: Acute (4) Hypertension Priority: Secondary Status: Chronic Qualifiers: Hypertension type: essential hypertension Qualified Code(s): I10 - Essential (primary) hypertension (5) Small cell 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 Priority: Secondary Status: Chronic (6) Electrolyte abnormality Priority: Secondary Status: Resolved - Discharge Medications Prescriptions: levoFLOXacin [Levofloxacin] 750 mg PO DAILY #7 tablet predniSONE [PredniSONE] 40 mg PO DAILY #3 tablet Home Medications: DULoxetine [Cymbalta] 30 mg PO HS 02/15/16 [History] Trazodone HCl 200 mg PO HS 02/15/16 [History] Melatonin/Pyridoxine HCl (B6) [Melatonin 3 mg Tablet] 3 mg PO HS 05/02/16 [ History] Albuterol Neb [Proventil Neb] 2.5 mg IH Q6H PRN 10/14/16 [History] Albuterol Sulfate [Albuterol Inhaler] 2 puff IH Q6H PRN 10/14/16 [History] Budesonide/Formoterol 160/4.5 [Symbicort 160/4.5] 2 puff IH BIDR 10/14/16 [ History] Oxygen 2 l NS AD 10/14/16 [History] Tiotropium [Spiriva] 18 mcg IH DAILY 10/14/16 [History] Ondansetron [Zofran ODT] 8 mg SL Q4HR PRN #20 tab.rapdis 11/20/16 [Rx] Dexamethasone [Decadron] 4 mg PO BID #30 tab 11/27/16 [Rx] Magic Mouthwash [Magic Mouthwash BLM] 10 ml PO QID PRN #240 ml 11/27/16 [Rx] LORazepam [Ativan] 0.5 mg PO BID #60 tablet 11/29/16 [Rx] Ascorbate Calcium [Vitamin C] 500 mg PO DAILY 12/14/16 [History] Furosemide [Lasix] 20 mg PO DAILY PRN #15 tablet 12/22/16 [Rx] Metoprolol XL (24 HR) Succ [Toprol Xl] 25 mg PO DAILY #30 tab.er.24h 11/04/17 [ Rx] Nicotine Patch [Nicoderm] 14 mg TD DAILY #30 patch.td24 12/22/16 [Rx] Polyethylene Glycol 3350 [MiraLAX] 17 gm PO DAILY PRN #30 powd.pack 12/22/16 [Rx ] Sennosides/Docusate Sodium [Senna-Docusate Sodium Tablet] 2 each PO BID PRN #60 tablet 12/22/16 [Rx] Calcium Carbonate/Vitamin D3 [Calcium 500 + Vit D Caplet] 2 each PO DAILY #60 tablet 12/26/16 [Rx] Oxycodone HCl 10 mg PO TID #90 tab 12/26/16 [Rx] Oxycodone HCl/Acetaminophen [Endocet 10-325 mg Tablet] 1 each PO Q8H 01/08/17 [ History] Levofloxacin [Levaquin] 500 mg PO DAILY #7 tablet 01/21/17 [Rx] levoFLOXacin [Levofloxacin] 750 mg PO DAILY #7 tablet 01/27/17 [Rx] predniSONE [PredniSONE] 40 mg PO DAILY #3 tablet 01/27/17 [Rx] Allergies/Adverse Reactions: 3 Allergy/AdvReac Type Severity Reaction Status Date / Time No Known Allergies Allergy Verified 12/14/16 17:49 Date of admission: 01/25/17 06:57 Primary care physician: Ron Ward MD Consults: oncology:Dr. Angel Discharging clinician: Marisa New Anticipated date of discharge: 01/27/17 - Patient Status Disposition: Home Health Service Condition: Good Functional capacity at discharge: independent ambulation Overall status at discharge: patient is back to baseline - Discharge Instructions Follow Up With: Ron Ward MD [Primary Care Provider] - 02/01/17 2:00 pm Linda Bird MD [Partnered Physician] - Forms: ED Satisfaction Letter Additional Instructions: Please follow up with your primary care physician within five days after your discharge from the hospital. Please continue oral antibiotics and prednisone as prescribed. Please continue your home dose of Metoprolol in addition to all of your home medications as prescribed by your primary care physician. - Diet and Activity Activity: increase activity as tolerated Diet: low salt diet Hospital course: Ms. 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 She was started on systemic steroids, bronchodilators, and empiric IV abx therapy. Patient responded appropriately to therapy. At this time, she is hemodynamically stable, respiratory status back to baseline. She will be discharged to home with follow up with PCP and oncology. - Time Spent with Patient Total time spent providing and/or coordinating discharge services: Less than 30 minutes - Constitutional Vitals: Temp Pulse Resp BP Pulse Ox 98.1 F 90 16 125/83 96 01/27/17 06:45 01/27/17 06:45 01/27/17 06:45 01/27/17 06:45 01/27/17 06:45 General appearance: Present: cooperative, A&O X 3, pleasant, no acute distress, answers questions appropriately - Head Head exam: Present: atraumatic, normocephalic - Eye Eye exam: Present: conjuntiva pink, sclera anicteric - Respiratory Respiratory exam: Present: CTAB. Absent: accessory muscle use, rales, respiratory distress, wheezes - Cardiovascular Cardiovascular exam: Present: RRR, +S1, +S2. Absent: diastolic murmur, gallop, rubs, systolic murmur - GI/Abdominal GI/Abdominal exam: Present: normal bowel sounds, soft, no peritoneal signs. Absent: distended, tenderness - Extremities Exam Extremities exam: Present: warm, radial pulses palpable and symmetrical. Absent : calf tenderness, cyanotic, pedal edema - Neurological Exam Neurological exam: Present: alert, oriented X3 - Psychiatric Psychiatric exam: Present: normal affect, normal mood
--- NOTE | 2017-01-27 09:42 | Physician Discharge Referral ---
Home Health/Hosp Referral Info Transfer to: Home Health Provider in Charge Post Discharge: PCP - Diagnosis (1) Acute exacerbation of chronic obstructive airways disease Priority: Primary Status: Resolved (2) Healthcare-associated pneumonia Priority: Primary Status: Resolved (3) DVT prophylaxis Priority: Secondary Status: Acute (4) Hypertension Priority: Secondary Status: Chronic (5) Small cell 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 Priority: Secondary Status: Chronic (6) Electrolyte abnormality Priority: Secondary Status: Resolved - Respiratory Orders Smoking Cessation: Smoking cessation has been advised. For more information, call the [place] Tobacco Quit Line at 8-720-VJNDNOW. - Services Needed Following services are medically necessary services: Nursing, Home Health Aide - Transfer Medications Home Medications: DULoxetine [Cymbalta] 30 mg PO HS 02/15/16 [History] Trazodone HCl 200 mg PO HS 02/15/16 [History] Melatonin/Pyridoxine HCl (B6) [Melatonin 3 mg Tablet] 3 mg PO HS 05/02/16 [ History] Albuterol Neb [Proventil Neb] 2.5 mg IH Q6H PRN 10/14/16 [History] Albuterol Sulfate [Albuterol Inhaler] 2 puff IH Q6H PRN 10/14/16 [History] Budesonide/Formoterol 160/4.5 [Symbicort 160/4.5] 2 puff IH BIDR 10/14/16 [ History] Oxygen 2 l NS AD 10/14/16 [History] Tiotropium [Spiriva] 18 mcg IH DAILY 10/14/16 [History] Ondansetron [Zofran ODT] 8 mg SL Q4HR PRN #20 tab.rapdis 11/20/16 [Rx] Dexamethasone [Decadron] 4 mg PO BID #30 tab 11/27/16 [Rx] Magic Mouthwash [Magic Mouthwash BLM] 10 ml PO QID PRN #240 ml 11/27/16 [Rx] LORazepam [Ativan] 0.5 mg PO BID #60 tablet 11/29/16 [Rx] Ascorbate Calcium [Vitamin C] 500 mg PO DAILY 12/14/16 [History] Furosemide [Lasix] 20 mg PO DAILY PRN #15 tablet 12/22/16 [Rx] Metoprolol XL (24 HR) Succ [Toprol Xl] 25 mg PO DAILY #30 tab.er.24h 11/04/17 [ Rx] Nicotine Patch [Nicoderm] 14 mg TD DAILY #30 patch.td24 12/22/16 [Rx] Polyethylene Glycol 3350 [MiraLAX] 17 gm PO DAILY PRN #30 powd.pack 12/22/16 [Rx ] Sennosides/Docusate Sodium [Senna-Docusate Sodium Tablet] 2 each PO BID PRN #60 tablet 12/22/16 [Rx] Calcium Carbonate/Vitamin D3 [Calcium 500 + Vit D Caplet] 2 each PO DAILY #60 tablet 12/26/16 [Rx] Oxycodone HCl 10 mg PO TID #90 tab 12/26/16 [Rx] Oxycodone HCl/Acetaminophen [Endocet 10-325 mg Tablet] 1 each PO Q8H 01/08/17 [ History] Levofloxacin [Levaquin] 500 mg PO DAILY #7 tablet 01/21/17 [Rx] Allergies/Adverse Reactions: 3 Allergy/AdvReac Type Severity Reaction Status Date / Time No Known Allergies Allergy Verified 12/14/16 17:49 Certification: Further, I certify that my clinical findings support that this patient is homebound (i.e. absences from home require considerable and taxing effort and are for medical reasons or congregational services or infrequently or short duration when for other reasons) because: Homebound Reason: Patient requires assistance of a person or device to safely leave home Attestation: My signature below is to certify that this patient is under my care and that I, or nurse practitioner, or a physician's assistant fitness manager working with me, has a face-to -face encounter with this patient.
[2017-01-27 11:12] VITALS: BP 135/79
[2017-01-27] MEDS ORDERED: Aminoglycoside Consult 1 EACH MC ONE (12:59)
== END 2017-01-27 13:00 | disposition home health service (06) | DRG 190 ==
LOC: 2NENU 17:08 → EMEROO 17:08 → 2NENU 21:46
PROVIDERS: ADMIT Internal Medicine; ATTEND Internal Medicine

== ENCOUNTER 2017-02-02 15:13 | Inpatient (IN) ==
[2017-02-02] MEDS ORDERED: Ipratropium/Albuterol Neb 3 ML IH ONE (15:30)
[2017-02-02] MEDS ORDERED: methylPREDNISolone 125 MG/2 ML VIAL IVP ONE (15:30)
[2017-02-02] MEDS ORDERED: Levofloxacin 750 MG/150 ML 750 MG/150 ML BAG IVPB ONE (15:30)
[2017-02-02] MEDS ORDERED: Piperacillin/Tazobactam 3.375 GM in D5% in Water (Mini-Bag+) 100 ML IVPB ONE (15:30)
[2017-02-02] MEDS ORDERED: Vancomycin (wt based) 1,000 MG VIAL IVPB ONE (15:32)
--- NOTE | 2017-02-02 15:36 | Emergency Department Note ---
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 Patient's been taking these with acute worsening 2 days ago of her dyspnea. Patient presents tachycardic with increased respiratory rate. Patient has diffuse wheezing and rhonchi at the right base. Patient will undergo sepsis workup and he placed on DuoNeb's and steroids. Antibiotics ordered for healthcare acquired pneumonia. The patient had chemotherapy last Saturday approximately 10 days ago. Primary care doctor is Dr. Ward Oncologist is Dr. Beltrán [employer] Ship is Dr. Bryson - Related Data Home Medications Medication Instructions Recorded Confirmed DULoxetine [Cymbalta] 30 mg PO HS 02/15/16 02/02/17 Trazodone HCl 200 mg PO HS 02/15/16 02/02/17 Albuterol Neb [Proventil Neb] 2.5 mg IH Q6H PRN 10/14/16 02/02/17 Albuterol Sulfate [Albuterol 2 puff IH Q6H PRN 10/14/16 02/02/17 Inhaler] Budesonide/Formoterol 160/4.5 2 puff IH BIDR 10/14/16 02/02/17 [Symbicort 160/4.5] Oxygen 2 l NS AD 10/14/16 02/02/17 Tiotropium [Spiriva] 18 mcg IH DAILY 10/14/16 02/02/17 Ascorbate Calcium [Vitamin C] 500 mg PO DAILY 12/14/16 02/02/17 Cholecalciferol (D-3) [Vitamin D] 5,000 unit PO DAILY 02/02/17 02/02/17 Melatonin [Melatin] 3 mg PO HS 02/02/17 02/02/17 Previous Rx's Medication Instructions Recorded Ondansetron [Zofran ODT] 8 mg SL Q4HR PRN #20 tab.rapdis 11/20/16 Dexamethasone [Decadron] 4 mg PO BID #30 tab 11/27/16 Magic Mouthwash [Magic Mouthwash 10 ml PO QID PRN #240 ml 11/27/16 BLM] LORazepam [Ativan] 0.5 mg PO BID #60 tablet 11/29/16 Furosemide [Lasix] 20 mg PO DAILY PRN #15 tablet 12/22/16 Metoprolol XL (24 HR) Succ [Toprol 25 mg PO DAILY #30 tab.er.24h 12/22/16 Xl] Polyethylene Glycol 3350 [MiraLAX] 17 gm PO DAILY PRN #30 powd.pack 12/22/16 Sennosides/Docusate Sodium 2 each PO BID PRN #60 tablet 12/22/16 [Senna-Docusate Sodium Tablet] Calcium Carbonate/Vitamin D3 2 each PO DAILY #60 tablet 12/26/16 [Calcium 500 + Vit D Caplet] Oxycodone HCl 10 mg PO TID #90 tab 12/26/16 levoFLOXacin [Levofloxacin] 750 mg PO DAILY #7 tablet 01/27/17 Allergies Allergy/AdvReac Type Severity Reaction Status Date / Time No Known Allergies Allergy Verified 02/02/17 15:16 Review of Systems: CONSTITUTIONAL: Chills, fatigue, weakness No weight loss, fever HEENT: Eyes: No visual changes. Ears, Nose, Throat: No hearing loss, difficulty talking or unable to swallow. SKIN: No rash or itching. CARDIOVASCULAR: No chest pain, chest pressure or chest discomfort. No palpitations or edema. RESPIRATORY: Shortness of breath with productive cough GASTROINTESTINAL: No anorexia, nausea, vomiting or diarrhea. No abdominal pain or blood. GENITOURINARY: No burning on urination or hematuria. NEUROLOGICAL: No headache, dizziness, syncope, paralysis, ataxia, numbness or tingling in the extremities. No change in bowel or bladder control. MUSCULOSKELETAL: No muscle pain, back pain, joint pain or stiffness. 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 Cardiac: Regular rate and rhythm, no murmurs, rubs or gallops Abdomen: soft, nontender, nondistended; no guarding, rebound, or tenderness to percussion Musculoskeletal: Calves symmetric, nontender, no palpable cord Skin: No rash, normal skin tone Neuro: Alert and Oriented to person, place, and time; No focal deficit, CN 2-12 symmetric and intact - General Limitations: no limitations General appearance: alert Course - Reevaluation(s) Reevaluation #1: Discussed with hospitalist, Hunter Luque, patient accepted for admission. Vital Signs Temperature 98.1 F 02/02/17 15:16 Pulse Rate 111 02/02/17 15:16 Respiratory Rate 28 02/02/17 15:16 Blood Pressure 102/66 02/02/17 15:16 O2 Sat by Pulse Oximetry 97 02/02/17 15:16 Temperature 98.1 F 02/02/17 15:16 Pulse Rate 114 02/02/17 17:18 Respiratory Rate 24 02/02/17 17:18 Blood Pressure 113/79 02/02/17 17:18 O2 Sat by Pulse Oximetry 98 02/02/17 17:18 Oxygen Delivery Oxygen Delivery Nasal Cannula Shortness of Breath/Dyspnea - Medical Records Medical records reviewed: Yes I reviewed the patient's medical records. - Lab Data Lab results reviewed: Yes I reviewed the patient's lab results. Result diagrams: 02/02/17 15:43 02/02/17 15:43 Lab Results 02/02/17 02/02/17 02/02/17 Range/Units 15:43 15:43 15:43 WBC 10.9 D (4.3-11.1) K/mcL RBC 3.62 L (3.82-4.97) M/mcL Hgb 10.4 L D (11.5-15.4) g/dL Hct 34.5 L (35.3-44.9) % MCV 95.3 (83.0-100.0) fL MCH 28.7 (28.0-33.3) pg MCHC 30.1 L (31.6-35.5) g/dL RDW 16.4 H (11.5-14.5) % Plt Count 236 (140-400) K/mcL MPV 9.9 (9.4-12.4) fL Immature Gran % 4.0 (0-4) % Seg Neutrophils % 71.4 % Lymphocytes % 16.9 % Monocytes % 6.7 % Eosinophils % 0.4 % Basophils % 0.6 % Neutrophils # 7.8 (1.6-8.9) K/mcL Lymphocytes # 1.8 (0.6-4.6) K/mcL Monocytes # 0.7 (0.0-1.3) K/mcL Eosinophils # 0.0 (0.0-0.6) K/mcL Basophils # 0.1 (0.0-0.2) K/mcL Sodium 141 (136-145) mEq/L Potassium 3.6 (3.5-4.5) mEq/L Chloride 106 (98-109) mEq/L Carbon Dioxide 27 (19-29) mEq/L BUN 9 (7-20) mg/dL Creatinine 0.56 L (0.57-1.11) mg/dL Est GFR ( Amer) > 60 (> 60) Est GFR (Non-Af Amer) > 60 (> 60) BUN/Creatinine Ratio 16 (6-26) Glucose 88 (70-99) mg/dL Calculated Osmolality 290 (280-300) Lactic Acid 1.3 (0.5-2.2) mmol/L Calcium 9.0 (8.6-10.8) mg/dL Magnesium 1.9 (1.6-2.6) mg/dL Troponin I (0-0.03) ng/mL Urine Color (Yellow) Urine Clarity (Clear) Urine pH (5.0-8.0) pH Units Ur Specific [place] (1.010-1.025) Urine Protein (Neg-Trace) mg/dL Urine Glucose (UA) (Normal) mg/dL Urine Ketones (Negative) mg/dL Urine Blood (Negative) Urine Nitrite (Negative) Urine Bilirubin (Negative) Urine Urobilinogen (Normal) mg/dL Ur Leukocyte Esterase (Negative) Urine Microscopic RBC (0-3) per hpf Urine Microscopic WBC (0-3) per hpf Ur Squamous Epith Cells (None-Few) per lpf Urine Bacteria (None-Few) per hpf Hyaline Casts (None-Few) per lpf Ur Culture Indicated? (NO) 02/02/17 02/02/17 02/02/17 Range/Units 15:43 16:29 16:48 WBC (4.3-11.1) K/mcL RBC (3.82-4.97) M/mcL Hgb (11.5-15.4) g/dL Hct (35.3-44.9) % MCV (83.0-100.0) fL MCH (28.0-33.3) pg MCHC (31.6-35.5) g/dL RDW (11.5-14.5) % Plt Count (140-400) K/mcL MPV (9.4-12.4) fL Immature Gran % (0-4) % Seg Neutrophils % % Lymphocytes % % Monocytes % % Eosinophils % % Basophils % % Neutrophils # (1.6-8.9) K/mcL Lymphocytes # (0.6-4.6) K/mcL Monocytes # (0.0-1.3) K/mcL Eosinophils # (0.0-0.6) K/mcL Basophils # (0.0-0.2) K/mcL Sodium (136-145) mEq/L Potassium (3.5-4.5) mEq/L Chloride (98-109) mEq/L Carbon Dioxide (19-29) mEq/L BUN (7-20) mg/dL Creatinine (0.57-1.11) mg/dL Est GFR ( Amer) (> 60) Est GFR (Non-Af Amer) (> 60) BUN/Creatinine Ratio (6-26) Glucose (70-99) mg/dL Calculated Osmolality (280-300) Lactic Acid 1.8 (0.5-2.2) mmol/L Calcium (8.6-10.8) mg/dL Magnesium (1.6-2.6) mg/dL Troponin I 0.01 (0-0.03) ng/mL Urine Color Yellow (Yellow) Urine Clarity Clear (Clear) Urine pH 6.0 (5.0-8.0) pH Units Ur Specific [place] > 1.030 H (1.010-1.025) Urine Protein 30 H (Neg-Trace) mg/dL Urine Glucose (UA) Normal (Normal) mg/dL Urine Ketones Trace H (Negative) mg/dL Urine Blood Negative (Negative) Urine Nitrite Negative (Negative) Urine Bilirubin Negative (Negative) Urine Urobilinogen Normal (Normal) mg/dL Ur Leukocyte Esterase Negative (Negative) Urine Microscopic RBC 0-3 (0-3) per hpf Urine Microscopic WBC 3-5 H (0-3) per hpf Ur Squamous Epith Cells Many H (None-Few) per lpf Urine Bacteria None Seen (None-Few) per hpf Hyaline Casts None Seen (None-Few) per lpf Ur Culture Indicated? NO (NO) - Radiology Data Radiology results reviewed: Yes I reviewed the patient's radiology results. - EKG Data EKG attestation: Yes I reviewed and interpreted this EKG. EKG results narrative: EKG shows sinus tachycardia with ventricular rate of 109. RI 124. QRS 86. QTC 384. No significant ST elevations. Patient has mild depressions in the anterior lateral leads. No old EKG at this time for comparison.
--- NOTE | 2017-02-02 15:39 | Emergency Department Note ---
START Narrative - START START: I examined this patient and my medical decision-making was reviewed with the Resident Physician. I agree with the documented findings, disposition and treatment plan as described except to the extent set forth below. Patient was independently seen and evaluated by myself. Patient was seen with the emergency medicine resident Will Zhong. Please see copy of her notes for details of this ED encounter management and disposition. Briefly: 61-year-old female with history of lung cancer recently discharged from [facility] for healthcare facility acquired pneumonia presents with cough and increasing shortness of breath. Despite a diagnosis of cancer and no active treatment patient is still smoking. She comes in with a raspy cough shortness breath expiratory wheezing and tachycardia. Patient will undergo the sepsis protocol with 2 nebs x-ray screening labs IV antibiotics blood cultures and admission. Providing 35 minutes critical care service this patient. Admission disposition pending
[2017-02-02] MEDS ORDERED: Vancomycin 750 MG in D5% in Water 250 ML IVPB ONE (15:50)
[2017-02-02 15:55] LABS: Basophils # 0.1 K/mcL (0.0-0.2); Basophils % 0.6 %; Eosinophils % 0.4 %; Hematocrit 34.5 % (35.3-44.9); Hemoglobin 10.4 g/dL (11.5-15.4); Lymphocytes # 1.8 K/mcL (0.6-4.6); Lymphocytes % 16.9 %; Mean Corpuscular HGB Conc 30.1 g/dL (31.6-35.5); Mean Corpuscular Hemoglobin 28.7 pg (28.0-33.3); Mean Corpuscular Volume 95.3 fL (83.0-100.0); Mean Platelet Volume 9.9 fL (9.4-12.4); Monocytes # 0.7 K/mcL (0.0-1.3); Monocytes % 6.7 %; Neutrophils # 7.8 K/mcL (1.6-8.9); Platelet Count 236 K/mcL (140-400); Red Blood Count 3.62 M/mcL (3.82-4.97); Red Cell Distribution Width 16.4 % (11.5-14.5); Segmented Neutrophils % 71.4 %
[2017-02-02 16:08] LABS: BUN/Creatinine Ratio 16 (6-26); Blood Urea Nitrogen 9 mg/dL (7-20); Carbon Dioxide 27 mEq/L (19-29); Chloride 106 mEq/L (98-109); Glucose 88 mg/dL (70-99); Magnesium 1.9 mg/dL (1.6-2.6); Osmolality,Calculated 290 (280-300); Potassium 3.6 mEq/L (3.5-4.5); Sodium 141 mEq/L (136-145); eGFR For African Americans > 60 (> 60); eGFR For Non-African Americans > 60 (> 60)
[2017-02-02] MEDS ORDERED: Piperacillin/Tazobactam 3.375 GM in Water for inj. (sterile) 20 ML IVP ONE (16:22)
[2017-02-02 17:00] LABS: Bilirubin,Urine Negative (Negative); Blood,Urine Negative (Negative); Clarity,Urine Clear (Clear); Color,Urine Yellow (Yellow); Glucose,Urine (UA) Normal (Normal); Ketones,Urine Trace mg/dL (Negative); Leukocyte Esterase,Urine Negative (Negative); Nitrite,Urine Negative (Negative); Protein,Urine 30 mg/dL (Neg-Trace); Specific Gravity,Urine > 1.030 (1.010-1.025); Urobilinogen,Urine Normal (Normal)
[2017-02-02 17:02] LABS: Bacteria,Urine None Seen per hpf (None-Few); Hyaline Casts,Urine None Seen per lpf (None-Few); RBC,Urine 0-3 per hpf (0-3); Squamous Epithelial Cell,Urine Many per lpf (None-Few)
[2017-02-02] MEDS ORDERED: 0.9 % Sodium Chloride 1,000 ML IVC ONE (17:18)
[2017-02-02] MEDS ORDERED: *HR* Morphine 2 MG/ML SYRINGE IVP PRN (17:53)
[2017-02-02] MEDS ORDERED: Acetaminophen 325 MG TABLET PO PRN (17:53)
[2017-02-02] MEDS ORDERED: Ondansetron 4 MG/2 ML VIAL IVP PRN (17:53)
[2017-02-02] MEDS ORDERED: Naloxone 0.4 MG/ML INJ IVP PRN (17:53)
[2017-02-02] MEDS ORDERED: 0.9 % Sodium Chloride 500 ML IVC ONE (17:56)
[2017-02-02] MEDS ORDERED: Sennosides/Docusate Sodium TABLET PO PRN (18:02)
[2017-02-02] MEDS ORDERED: Magic Mouthwash 10 ML UD Cup PO PRN (18:02)
[2017-02-02] MEDS ORDERED: NON-FORMULARY MEDICATION 1 EACH EACH (Ondansetron [Zofran Odt] 8 MG) SL PRN (18:02)
[2017-02-02] MEDS ORDERED: Albuterol 2.5 MG/3 ML NEBULIZER IH PRN (18:02)
--- NOTE | 2017-02-02 18:24 | Internal Med History&Physical ---
<LeodanhajayennyHunter mckeon - Last Filed: 02/02/17 19:06> Date of Encounter: 02/02/17 Time of Encounter: 17:00 Assessment and Plan (1) Sepsis Current visit: Yes Status: Acute Pt. meets sepsis criteria based on previous pneumonia dx w/o resolution, HR of 111 bpm, and RR of 28. WBC is currently 10.8 but pt. recently finished round of PO levaquin. Initial lactic acid 1.3 w/second @ 1.8. Pt. received 1L bolus of 0.9 NS in ED with f/u of 500 mL bolus and continuation @ 100 mL/HR. Timed lactic acids ordered. Blood cultures x2. Sputum culture. Pt. given IVPB levaquin , vancomycin, and Zosyn in ED. Will discontinue levaquin d/t pt. failing OP therapy on levaquin and continue IVPB vancomycin w/pharmacy dosing and Zosyn 3.375 gm Q8 for infection coverage. Will adjust abx coverage based on culture results. Pt. is currently afebrile. Monitor pt. and f/u labs. Pt. discussed w/ Dr. Sanchez who is in agreement w/plan of care. Pt. is at high risk for further morbidity, infection, and sepsis d/t current sx, failure of OP therapy, and hx. Inpatient. Qualifiers: Sepsis type: sepsis due to unspecified organism Qualified Code(s): A41.9 - Sepsis, unspecified organism (2) HCAP (healthcare-associated pneumonia) Current visit: Yes Status: Acute Acute HCAP. Pt. treated for pneumonia one week ago and discharged on PO levaquin which she almost completed and states she began feeling worse. IVPB vancomycin w/pharmacy dosing and Zosyn 3.375 gm Q8 for infection coverage. Blood cultures x2 and sputum culture ordered. Will adjust abx coverage based on culture results. Current WBC 10.8. Pt. currently meets sepsis criteria. Supplemental O2, SpO2 monitoring, DuoNebs Q4, Solumedrol 40 mg Q8, and Mucinex for cough. Monitor pt. and f/u labs. (3) Tachycardia Current visit: Yes Status: Acute Acute tachycardia d/t current SOB/dyspnea and unresolved pneumonia. Continuous cardiac telemetry. Supplemental O2 and SpO2 monitoring. (4) Shortness of breath Current visit: Yes Status: Acute Acute SOB and dyspnea for the past two weeks that pt. states has worsened over the past two days. Reports home O2 @ 2L and having to increase to 3L. Denies BiPap or CPAP use. Supplemental O2 w/titration and SpO2 monitoring. DuoNebs Q4 scheduled. Solumedrol 40 mg Q8. Mucinex ordered for cough. Falls/safety precautions. (5) HTN (hypertension) Current visit: Yes Status: Chronic Hx of chronic HTN. Monitor pt. and VS. Continue pts. Metoprolol. Qualifiers: Hypertension type: essential hypertension Qualified Code(s): I10 - Essential (primary) hypertension (6) Anemia Current visit: Yes Status: Chronic Hx of chronic anemia. Hgb is 10.4 and Hgb is 34.5 on admission which is higher than pts. recent baseline and highest since 11/20/16. Monitor H/H in a.m. labs. Qualifiers: Anemia type: other cause Other causes of anemia: antineoplastic chemotherapy Qualified Code(s): D64.81 - Anemia due to antineoplastic chemotherapy; T45.1X5A - Adverse effect of antineoplastic and immunosuppressive drugs, initial encounter; T45.1X5A - Adverse effect of antineoplastic and immunosuppressive drugs, initial encounter (7) COPD (chronic obstructive pulmonary disease) Current visit: Yes Status: Chronic Hx of chronic COPD. Pt. reports long-term tobacco use smoking 1.5 PPD and quitting in October 2016. Solumedrol 40 mg Q8 ordered. Pt. reports using home O2 @ 2L daily but having to increase to 3L yesterday. Supplemental O2 w/ titration and SpO2 monitoring. DuoNebs Q4 scheduled. 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 Pt. reports last chemotherapy tx was 10 days ago. Pt. to f/u with her oncologist on OP basis. Qualifiers: Laterality: unspecified laterality Lung location: unspecified part of lung Qualified Code(s): C34.90 - Malignant neoplasm of unspecified part of unspecified bronchus or lung (9) Compression fracture of body of thoracic vertebra Current visit: Yes Status: Chronic Chronic back pain r/t compression fracture of the body of thoracic vertebra. Stair-step pain medications for pain mgmt. Air mattress ordered. Falls/safety precautions. (10) DVT prophylaxis Current visit: Yes Status: Acute Heparin 5,000 units SQ Q8 for DVT prophylaxis. Monitor pt. for signs of bleeding. Internal Medicine - H&P: HPI Chief complaint: SOB/Dyspnea Admitted From: Emergency Dept Plans for Post Hospital Care: Home History of present illness: Ms. 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 Pt. was admitted for pneumonia and discharged on Saturday on PO levaquin ( pt. reports she took all abx but one) and steroids but states she began feeling much worse over the past two days. Pt. uses 2L O2 @ home and states she had to use 3L today. Pt. also reports productive cough, weakness, fatigue, and chills but denies nausea, vomiting, known fever, chest pain, palpitations, abdominal pain, diarrhea, constipation, changes in vision, unusual bleeding, headache, numbness, tingling, dizziness, lightheadedness, pre-syncope, or syncope. Past Med Surg Social Fam HX - Past Medical History Source: patient, old records reviewed, obtained from family Medical history: cancer (Small cell carcinoma of the right lung w/metastatsis to the liver), COPD, hypertension Psychiatric history: anxiety, depression - Past Surgical History Surgical History: hysterectomy (Partial) - Social History Smoking Status: Former smoker Packs per day: 1.5 PPD - Reports quitting in October 2016 Smokeless Tobacco Status: No Alcohol use: none Drug use: none Current living situation: Home, With Family Activity Level: Independent ambulation Recent Out of Country Travel Within the Last 8 Weeks: No Exposure or Possible Exposure to Illness During Travel: No - Family History Sister Race: Family Member Ethnicity: Non- Living Status: Still Living Hx Family Medical Disorders: No Mother Race: Family Member Ethnicity: Non- Living Status: Age at : 73 Cause of : COPD Hx Family Cardiac Disorders: Yes (HTN) Hx Family Respiratory Disorders: Yes (COPD) Father Adopted: No Race: Family Member Ethnicity: Non- Living Status: Age at : 75 Cause of : CHF Hx Family Cardiac Disorders: Yes (CHF, CAD, [place]) Internal Medicine - H&P: Meds DULoxetine [Cymbalta] 30 mg PO HS 02/15/16 [History] Trazodone HCl 200 mg PO HS 02/15/16 [History] Albuterol Neb [Proventil Neb] 2.5 mg IH Q6H PRN 10/14/16 [History] Albuterol Sulfate [Albuterol Inhaler] 2 puff IH Q6H PRN 10/14/16 [History] Budesonide/Formoterol 160/4.5 [Symbicort 160/4.5] 2 puff IH BIDR 10/14/16 [ History] Oxygen 2 l NS AD 10/14/16 [History] Tiotropium [Spiriva] 18 mcg IH DAILY 10/14/16 [History] Ondansetron [Zofran ODT] 8 mg SL Q4HR PRN #20 tab.rapdis 11/20/16 [Rx] Dexamethasone [Decadron] 4 mg PO BID #30 tab 11/27/16 [Rx] Magic Mouthwash [Magic Mouthwash BLM] 10 ml PO QID PRN #240 ml 11/27/16 [Rx] LORazepam [Ativan] 0.5 mg PO BID #60 tablet 11/29/16 [Rx] Ascorbate Calcium [Vitamin C] 500 mg PO DAILY 12/14/16 [History] Furosemide [Lasix] 20 mg PO DAILY PRN #15 tablet 12/22/16 [Rx] Metoprolol XL (24 HR) Succ [Toprol Xl] 25 mg PO DAILY #30 tab.er.24h 12/22/16 [ Rx] Polyethylene Glycol 3350 [MiraLAX] 17 gm PO DAILY PRN #30 powd.pack 12/22/16 [Rx ] Sennosides/Docusate Sodium [Senna-Docusate Sodium Tablet] 2 each PO BID PRN #60 tablet 12/22/16 [Rx] Calcium Carbonate/Vitamin D3 [Calcium 500 + Vit D Caplet] 2 each PO DAILY #60 tablet 12/26/16 [Rx] Oxycodone HCl 10 mg PO TID #90 tab 12/26/16 [Rx] levoFLOXacin [Levofloxacin] 750 mg PO DAILY #7 tablet 01/27/17 [Rx] Cholecalciferol (D-3) [Vitamin D] 5,000 unit PO DAILY 02/02/17 [History] Melatonin [Melatin] 3 mg PO HS 02/02/17 [History] 3 Allergy/AdvReac Type Severity Reaction Status Date / Time No Known Allergies Allergy Verified 02/02/17 15:16 All Systems PM: A 10-system review of systems was performed and is negative for pertinent findings except as documented above in the HPI. - Constitutional Constitutional: as per HPI, chills, fatigue, weakness, no fever(s), no night sweats - EENT Eyes: no change in vision, no discharge, no pain, no photophobia Ears: no ear discharge, no ear pain, no tinnitus Nose, mouth and throat: no dysphagia, no nasal discharge, no neck pain, no sore throat - Breasts Breasts: as per HPI - Cardiovascular Cardiovascular ROS IM: as per HPI, irregular heart rhythm (Tachycardia), no chest pain, no diaphoresis, no dyspnea, no lightheadedness, no palpitations, no syncope - Respiratory Respiratory: as per HPI, cough, dyspnea, dyspnea on exertion, wheezing, other ( Tachypnea), no excessive phlegm production - Gastrointestinal Gastrointestinal: no abdominal pain, no diarrhea, no hematemesis, no hematochezia, no melena, no nausea, no vomiting - Genitourinary Genitourinary: no change in urinary stream, no dysuria, no flank pain, no hematuria Menstruation: as per HPI, post hysterectomy - Musculoskeletal Musculoskeletal ROS IM: as per HPI, back pain, no numbness, no tingling - Integumentary Integumentary IM: no rash, no unusual bruising - Neurological Neurological ROS: as per HPI, weakness, no confusion, no convulsions, no focal weakness, no numbness, no tingling, no tremor(s) - Psychiatric Psychiatric: as per HPI, anxiety, depression - Endocrine Endocrine IM: as per HPI - Hematologic/Lymphatic Hematologic/Lymphatic: no easy bruising - Allergic/Immunologic Allergic/Immunologic: as per HPI - Constitutional Vitals: Temp Pulse Resp BP Pulse Ox 98.1 F 114 22 112/79 98 02/02/17 15:16 02/02/17 17:18 02/02/17 18:12 02/02/17 18:12 02/02/17 17:18 General appearance: Present: cooperative, A&O X 3, pleasant, severe distress, underweight, answers questions appropriately - Head Head exam: Present: atraumatic, normocephalic - Eye Eye exam: Present: PERRL, conjuntiva pink, sclera anicteric Pupils: Present: PERRL - ENT ENT exam: Present: normal exam, normal external ear exam - Neck Neck exam general surgery: Present: normal inspection, supple, trachea midline. Absent: lymphadenopathy - Respiratory Respiratory exam: Present: rhonchi, wheezes, tachypnea - Cardiovascular Cardiovascular exam: Present: +S1, +S2, tachycardia - GI/Abdominal GI/Abdominal exam: Present: normal bowel sounds, soft, no peritoneal signs. Absent: distended, tenderness - Rectal Rectal exam: Present: deferred - Additional comments: exam deferred. - Extremities Exam Extremities exam: Present: warm, radial pulses palpable and symmetrical. Absent : calf tenderness, cyanotic, pedal edema - Back Exam Back exam: Present: normal inspection - Neurological Exam Neurological exam: Present: CN II-XII intact, oriented X3, no focal deficits. Absent: pronater drift, facial droop, speech deficit - Psychiatric Psychiatric exam: Present: normal affect, normal mood - Skin Skin exam: Present: dry, intact Internal Med - H&P Results - Labs CBC & Chem 7: 02/02/17 15:43 02/02/17 15:43 - EKG Data EKG shows normal: sinus rhythm Rate: tachycardia - EKG Data Prior EKG available for review: no EKG comments: 02/02/17 18:35 EKG dated 02/02/17 shows sinus tachycardia and abnormal rhythm ECG. Motor 9 bpm , 124 IL interval, 86 QRS duratiuon, 320/384 QT/QTc, 70 -5 55 P-R-T axes. - Diagnostic Studies Chest x-ray Additional comments: Impressions Chest X-Ray 02/02/17 16:14 IMPRESSION: Moderate to severe bullous changes. Clearing of the right upper lobe pneumonia evident on the prior study. Mild interstitial lung disease. No definite acute abnormality. Minimal vascular congestion possible. D/ / Mainor Jackson MD / Mainor Jackson MD Interpreting Provider: Mainor Jackson MD <Tod Sanchez - Last Filed: 02/03/17 13:24> Date of Encounter: 02/03/17 Internal Medicine - H&P: HPI History of present illness: Ms. Keenan is a 61 year old female All Systems PM: A 10-system review of systems was performed and is negative for pertinent findings except as documented above in the HPI. - Constitutional Vitals: Temp Pulse Resp BP Pulse Ox 98 F 99 18 136/66 98 02/03/17 11:29 02/03/17 11:29 02/03/17 11:29 02/03/17 11:29 02/03/17 11:29 Internal Med - H&P Results - Labs CBC & Chem 7: 02/03/17 03:42 02/03/17 03:42 Labs: Short CBC 02/03/17 Range/Units 03:42 WBC 6.5 (4.3-11.1) K/mcL Hgb 9.8 L (11.5-15.4) g/dL Hct 32.7 L (35.3-44.9) % Plt Count 205 (140-400) K/mcL Neutrophils # 5.5 (1.6-8.9) K/mcL BMP 02/03/17 03:42 Sodium 145 Potassium 4.1 Chloride 112 H Carbon Dioxide 23 BUN 8 Creatinine 0.59 Glucose 129 H Calcium 8.2 L Liver Function 02/03/17 Range/Units 03:42 Total Bilirubin 0.2 (0.2-1.2) mg/dL AST 10 (5-34) Units/L ALT 11 (0-55) Units/L Alkaline Phosphatase 137 H (38-126) Units/L Albumin 3.0 L (3.5-5.0) g/dL - Attending Attestation I examined this patient and my medical decision-making was reviewed with the Resident Physician. I agree with the documented findings, disposition and treatment plan as described except to the extent set forth below.
[2017-02-02 18:47] LABS: INR 1.1; Prothrombin Time 12.3 Seconds (9.4-12.1)
[2017-02-02 18:49] LABS: Activated Partial Thrombo Time 25.9 Seconds (26.0-36.0)
[2017-02-02] MEDS ORDERED: Vancomycin 750 MG in D5% in Water 250 ML IVPB SCH (19:00)
[2017-02-02] MEDS: *HR* HYDROcodone/Acet 5/325 mg TABLET PO PRN (19:56)
[2017-02-02] MEDS: GuaiFENesin/Dextromethorphan TABLET PO SCH (19:56)
[2017-02-02] MEDS: Melatonin 3 MG TABLET PO SCH (19:56)
[2017-02-02] MEDS: *HR* LORazepam 0.5 MG TABLET PO SCH (19:56)
[2017-02-02] MEDS: traZODone 50 MG TABLET PO SCH (19:57)
[2017-02-02] MEDS: 0.9 % Sodium Chloride 1,000 ML IVC SCH (19:59)
[2017-02-02] MEDS: Budesonide/Formoterol 160/4.5 MDI IH SCH (20:35)
[2017-02-02] MEDS: Ipratropium/Albuterol Neb 3 ML IH SCH ×2 (20:35→23:40)
[2017-02-02] MEDS ORDERED: NON-FORMULARY MEDICATION 1 EACH EACH (Oxycodone Hcl [Oxycodone Hcl] 10 MG) PO SCH (21:00)
[2017-02-02] MEDS: *HR* Heparin 5,000 UNIT/ML VIAL SQ SCH (21:46)
[2017-02-02] MEDS: Piperacillin/Tazobactam 3.375 GM/200 ML BAG IVPB SCH (21:46)
[2017-02-03] MEDS: MethylPREDNISolone 40 MG/ML VIAL IVP SCH ×3 (00:19→16:48)
[2017-02-03] MEDS: Ipratropium/Albuterol Neb 3 ML IH SCH ×6 (04:11→22:56)
[2017-02-03] MEDS: *HR* HYDROcodone/Acet 5/325 mg TABLET PO PRN ×3 (04:44→16:50)
[2017-02-03 04:54] LABS: Basophils % 0.5 %; Hematocrit 32.7 % (35.3-44.9); Hemoglobin 9.8 g/dL (11.5-15.4); Immature Granulocytes % 3.9 % (0-4); Lymphocytes # 0.6 K/mcL (0.6-4.6); Lymphocytes % 9.7 %; Mean Corpuscular Hemoglobin 29.1 pg (28.0-33.3); Mean Platelet Volume 9.8 fL (9.4-12.4); Monocytes # 0.1 K/mcL (0.0-1.3); Monocytes % 1.5 %; Neutrophils # 5.5 K/mcL (1.6-8.9); Platelet Count 205 K/mcL (140-400); Red Blood Count 3.37 M/mcL (3.82-4.97); Red Cell Distribution Width 16.4 % (11.5-14.5); Segmented Neutrophils % 84.4 %
[2017-02-03 05:07] LABS: Hemoglobin A1C 5.3 %
[2017-02-03 05:24] LABS: Alanine Aminotransferase 11 Units/L (0-55); Alkaline Phosphatase 137 Units/L (38-126); Aspartate Amino Transferase 10 Units/L (5-34); BUN/Creatinine Ratio 14 (6-26); Bilirubin,Total 0.2 mg/dL (0.2-1.2); Blood Urea Nitrogen 8 mg/dL (7-20); Calcium 8.2 mg/dL (8.6-10.8); Carbon Dioxide 23 mEq/L (19-29); Chloride 112 mEq/L (98-109); Chol/HDL Ratio 3.9 (0-4.9); Cholesterol 150 mg/dL (< 200); Globulin 2.9 g/dL (2.4-3.5); Glucose 129 mg/dL (70-99); HDL Cholesterol 38 mg/dL (40-59); LDL Cholesterol,Calculated 98 mg/dL (0-99); Magnesium 1.9 mg/dL (1.6-2.6); Osmolality,Calculated 300 (280-300); Potassium 4.1 mEq/L (3.5-4.5); Sodium 145 mEq/L (136-145); Total Protein 5.9 g/dL (6.0-8.3); Triglycerides 70 mg/dL (< 150); eGFR For African Americans > 60 (> 60); eGFR For Non-African Americans > 60 (> 60)
[2017-02-03 05:26] LABS: Platelet Estimate Normal (Normal)
[2017-02-03] MEDS: Piperacillin/Tazobactam 3.375 GM/200 ML BAG IVPB SCH ×2 (05:43→16:48)
[2017-02-03] MEDS: *HR* Heparin 5,000 UNIT/ML VIAL SQ SCH ×3 (05:44→20:50)
[2017-02-03] MEDS: 0.9 % Sodium Chloride 1,000 ML IVC SCH (06:46)
[2017-02-03] MEDS: Metoprolol XL (24 HR) Succ 25 MG TAB.ER.24H PO SCH (08:02)
[2017-02-03] MEDS: Cholecalciferol (D-3) 1,000 UNIT TABLET PO SCH (08:04)
[2017-02-03] MEDS: Ascorbic Acid 500 MG TABLET PO SCH (08:04)
[2017-02-03] MEDS: *HR* LORazepam 0.5 MG TABLET PO SCH ×2 (08:04→20:50)
[2017-02-03] MEDS: GuaiFENesin/Dextromethorphan TABLET PO SCH ×2 (08:04→20:50)
[2017-02-03] MEDS: Vancomycin 750 MG in D5% in Water 250 ML IVPB SCH ×2 (08:05→20:50)
[2017-02-03] MEDS: Budesonide/Formoterol 160/4.5 MDI IH SCH ×2 (08:27→19:59)
[2017-02-03] MEDS: Tiotropium 18 MCG inhalation IH SCH (08:28)
[2017-02-03] MEDS ORDERED: 0.9 % Sodium Chloride 1,000 ML IVC SCH (09:05)
--- NOTE | 2017-02-03 14:24 | Internal Med Progress Note ---
Date of Encounter: 02/03/17 Time of Encounter: 13:25 - Assessment and plan (1) Sepsis Current Visit: No Status: Resolved Assessment and plan: Secondary to HCAP continue empiric IV abx therapy f/u blood culture reports Qualifiers: Sepsis type: Haemophilus influenzae Qualified Code(s): A41.3 - Sepsis due to Hemophilus influenzae (2) Acute exacerbation of chronic obstructive airways disease Current Visit: No Status: Resolved Assessment and plan: continue systemic steroids (solumedrol 40mg IV q8h) bronchodilator support pt will benefit from a long steroid taper O2 supplementation monitor O2 sat, goal O2 sat: 88-92% will closely monitor respiratory status (3) Healthcare-associated pneumonia Current Visit: No Status: Acute Assessment and plan: CXR reports clearing of PNA compared to previous study will continue abx duration for total of 14 days, as today was day 10 of Levaquin that the patient was taking at home therefore, will continue abx for four more days will repeat CXR prior to discharge will extend abx duration if needed depending on clinical response (4) Anemia Current Visit: Yes Status: Chronic Assessment and plan: H&H low but acceptable no acute bleeding reported at this time continue to closely monitor will transfuse as needed Qualifiers: Anemia type: other cause Other causes of anemia: antineoplastic chemotherapy Qualified Code(s): D64.81 - Anemia due to antineoplastic chemotherapy; T45.1X5A - Adverse effect of antineoplastic and immunosuppressive drugs, initial encounter; T45.1X5A - Adverse effect of antineoplastic and immunosuppressive drugs, initial encounter (5) Compression fracture of body of thoracic vertebra Current Visit: Yes Status: Chronic Assessment and plan: continue home pain meds (6) DVT prophylaxis Current Visit: Yes Status: Acute Assessment and plan: Heparin SQ (7) Small cell 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 Current Visit: No Status: Chronic - Subjective Interval history: Patient seen and examined with family present at bedside. Pt reports of feeling better since hospitalization. Given pt's clinical presentation and xray findings , it appears that her current hospitalization is mainly due to COPD exacerbation with the underlying PNA that she was already on treatment for. She reports of taking 9/10 days of Levaquin and cxray reported clearing of right upper lobe pneumonia compared to previous study. - Constitutional Vitals: Temp Pulse Resp BP Pulse Ox 98 F 99 18 136/66 98 02/03/17 11:29 02/03/17 11:29 02/03/17 11:29 02/03/17 11:29 02/03/17 11:29 General appearance: Present: cooperative, A&O X 3, pleasant, no acute distress, underweight, answers questions appropriately - Head Head exam: Present: atraumatic, normocephalic - Eye Eye exam: Present: conjuntiva pink, sclera anicteric - Respiratory Respiratory exam: Absent: respiratory distress, wheezes (coarse breath sounds diffusely) - Cardiovascular Cardiovascular exam: Present: +S1, +S2, tachycardia. Absent: diastolic murmur, gallop, rubs, systolic murmur - GI/Abdominal GI/Abdominal exam: Present: normal bowel sounds, soft, no peritoneal signs. Absent: distended, tenderness - Extremities Exam Extremities exam: Present: warm, radial pulses palpable and symmetrical. Absent : calf tenderness, cyanotic, pedal edema - Neurological Exam Neurological exam: Present: alert, oriented X3 - Psychiatric Psychiatric exam: Present: normal affect, normal mood Internal Medicine: Result - Labs CBC & Chem 7: 02/03/17 03:42 02/03/17 03:42 Labs: Short CBC 02/03/17 Range/Units 03:42 WBC 6.5 (4.3-11.1) K/mcL Hgb 9.8 L (11.5-15.4) g/dL Hct 32.7 L (35.3-44.9) % Plt Count 205 (140-400) K/mcL Neutrophils # 5.5 (1.6-8.9) K/mcL BMP 02/03/17 03:42 Sodium 145 Potassium 4.1 Chloride 112 H Carbon Dioxide 23 BUN 8 Creatinine 0.59 Glucose 129 H Calcium 8.2 L Liver Function 02/03/17 Range/Units 03:42 Total Bilirubin 0.2 (0.2-1.2) mg/dL AST 10 (5-34) Units/L ALT 11 (0-55) Units/L Alkaline Phosphatase 137 H (38-126) Units/L Albumin 3.0 L (3.5-5.0) g/dL - ABG Interpretation ABG results: PT/INR, D-dimer PT 12.3 Seconds (9.4-12.1) H 02/02/17 18:35 Consult Discharge Plan - Plan Referrals: Ron Ward MD [Primary Care Provider] -
[2017-02-03] MEDS: Melatonin 3 MG TABLET PO SCH (20:50)
[2017-02-03] MEDS: traZODone 50 MG TABLET PO SCH (20:50)
[2017-02-04] MEDS: Piperacillin/Tazobactam 3.375 GM/200 ML BAG IVPB SCH ×4 (00:16→23:03)
[2017-02-04] MEDS: MethylPREDNISolone 40 MG/ML VIAL IVP SCH ×3 (00:16→20:16)
[2017-02-04] MEDS: *HR* HYDROcodone/Acet 5/325 mg TABLET PO PRN ×3 (03:34→17:29)
[2017-02-04] MEDS: Ipratropium/Albuterol Neb 3 ML IH SCH ×6 (03:48→23:33)
[2017-02-04] MEDS: *HR* Heparin 5,000 UNIT/ML VIAL SQ SCH ×3 (05:37→23:03)
[2017-02-04 05:58] LABS: Basophils % 0.3 %; Hematocrit 30.8 % (35.3-44.9); Hemoglobin 9.2 g/dL (11.5-15.4); Immature Granulocytes % 2.5 % (0-4); Lymphocytes # 1.1 K/mcL (0.6-4.6); Lymphocytes % 10.2 %; Mean Corpuscular HGB Conc 29.9 g/dL (31.6-35.5); Mean Corpuscular Hemoglobin 28.4 pg (28.0-33.3); Mean Corpuscular Volume 95.1 fL (83.0-100.0); Mean Platelet Volume 9.7 fL (9.4-12.4); Monocytes # 0.3 K/mcL (0.0-1.3); Monocytes % 3.2 %; Platelet Count 189 K/mcL (140-400); Red Blood Count 3.24 M/mcL (3.82-4.97); Red Cell Distribution Width 16.1 % (11.5-14.5); Segmented Neutrophils % 83.8 %
[2017-02-04 06:14] LABS: Magnesium 1.7 mg/dL (1.6-2.6); Phosphorous 2.1 mg/dL (2.3-4.7)
[2017-02-04 06:15] LABS: Alanine Aminotransferase 12 Units/L (0-55); Albumin 2.8 g/dL (3.5-5.0); Alkaline Phosphatase 120 Units/L (38-126); Aspartate Amino Transferase 10 Units/L (5-34); BUN/Creatinine Ratio 13 (6-26); Bilirubin,Total 0.2 mg/dL (0.2-1.2); Blood Urea Nitrogen 7 mg/dL (7-20); Calcium 8.4 mg/dL (8.6-10.8); Carbon Dioxide 28 mEq/L (19-29); Chloride 109 mEq/L (98-109); Globulin 2.8 g/dL (2.4-3.5); Glucose 139 mg/dL (70-99); Osmolality,Calculated 296 (280-300); Potassium 3.9 mEq/L (3.5-4.5); Sodium 143 mEq/L (136-145); Total Protein 5.6 g/dL (6.0-8.3); eGFR For African Americans > 60 (> 60); eGFR For Non-African Americans > 60 (> 60)
[2017-02-04 06:16] LABS: Neutrophils # 8.6 K/mcL (1.6-8.9)
[2017-02-04] MEDS: Budesonide/Formoterol 160/4.5 MDI IH SCH ×2 (07:59→19:52)
[2017-02-04] MEDS: Tiotropium 18 MCG inhalation IH SCH (08:18)
[2017-02-04] MEDS: Vancomycin 1,000 MG in D5% in Water 250 ML IVPB SCH ×2 (09:42→20:14)
[2017-02-04] MEDS: *HR* LORazepam 0.5 MG TABLET PO SCH ×2 (09:43→20:17)
[2017-02-04] MEDS: Ascorbic Acid 500 MG TABLET PO SCH (09:44)
[2017-02-04] MEDS: Cholecalciferol (D-3) 1,000 UNIT TABLET PO SCH (09:44)
[2017-02-04] MEDS: Metoprolol XL (24 HR) Succ 25 MG TAB.ER.24H PO SCH (09:44)
[2017-02-04] MEDS: GuaiFENesin/Dextromethorphan TABLET PO SCH ×2 (09:44→20:17)
--- NOTE | 2017-02-04 10:04 | Internal Med Progress Note ---
Date of Encounter: 02/04/17 Time of Encounter: 10:00 - Assessment and plan (1) Sepsis Current Visit: No Status: Resolved Assessment and plan: Secondary to HCAP continue empiric IV abx therapy f/u blood culture reports Qualifiers: Sepsis type: Haemophilus influenzae Qualified Code(s): A41.3 - Sepsis due to Hemophilus influenzae (2) Acute exacerbation of chronic obstructive airways disease Current Visit: No Status: Acute Assessment and plan: continue systemic steroids (solumedrol 40mg IV q12h) bronchodilator support pt will benefit from a long steroid taper O2 supplementation monitor O2 sat, goal O2 sat: 88-92% will closely monitor respiratory status will repeat CXR in am (3) Healthcare-associated pneumonia Current Visit: No Status: Acute Assessment and plan: CXR reports clearing of PNA compared to previous study will continue abx duration for total of 14 days, as today was day 10 of Levaquin that the patient was taking at home therefore, will continue abx four three more days (Day 14) will repeat CXR prior to discharge will extend abx duration if needed depending on clinical response (4) Anemia Current Visit: Yes Status: Chronic Assessment and plan: H&H low but acceptable no acute bleeding reported at this time continue to closely monitor will transfuse as needed Qualifiers: Anemia type: other cause Other causes of anemia: antineoplastic chemotherapy Qualified Code(s): D64.81 - Anemia due to antineoplastic chemotherapy; T45.1X5A - Adverse effect of antineoplastic and immunosuppressive drugs, initial encounter; T45.1X5A - Adverse effect of antineoplastic and immunosuppressive drugs, initial encounter (5) Compression fracture of body of thoracic vertebra Current Visit: Yes Status: Chronic Assessment and plan: continue home pain meds (6) DVT prophylaxis Current Visit: Yes Status: Acute Assessment and plan: Heparin SQ (7) Small cell 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 Current Visit: No Status: Chronic (8) Hypophosphatemia Current Visit: Yes Status: Acute Assessment and plan: Phos supplemented continue to monitor electrolytes and replace as needed - Subjective Interval history: Patient seen and examined at bedside.Currently resting in bed and reports of feeling better compared to previous day. Back to baseline home oxygen, however given the recurrent hospitalization, will continue IV abx and IV steroids at this time. - Constitutional Vitals: Temp Pulse Resp BP Pulse Ox 97.9 F 79 18 144/77 95 12/18/17 07:00 02/04/17 07:00 02/04/17 08:00 02/04/17 07:00 02/04/17 08:00 General appearance: Present: cooperative, A&O X 3, pleasant, no acute distress, underweight, answers questions appropriately - Head Head exam: Present: atraumatic, normocephalic - Eye Eye exam: Present: conjuntiva pink, sclera anicteric - Respiratory Respiratory exam: Present: decreased breath sounds. Absent: respiratory distress, wheezes - Cardiovascular Cardiovascular exam: Present: RRR, +S1, +S2. Absent: diastolic murmur, gallop, rubs, systolic murmur - GI/Abdominal GI/Abdominal exam: Present: normal bowel sounds, soft, no peritoneal signs. Absent: distended, tenderness - Extremities Exam Extremities exam: Present: warm, radial pulses palpable and symmetrical. Absent : calf tenderness - Neurological Exam Neurological exam: Present: alert, oriented X3 Internal Medicine: Result - Labs CBC & Chem 7: 02/04/17 05:49 02/04/17 05:49 Labs: Short CBC 02/04/17 Range/Units 05:49 WBC 10.3 D (4.3-11.1) K/mcL Hgb 9.2 L (11.5-15.4) g/dL Hct 30.8 L (35.3-44.9) % Plt Count 189 (140-400) K/mcL Neutrophils # 8.6 (1.6-8.9) K/mcL BMP 02/04/17 05:49 Sodium 143 Potassium 3.9 Chloride 109 Carbon Dioxide 28 BUN 7 Creatinine 0.55 L Glucose 139 H Calcium 8.4 L Liver Function 02/04/17 Range/Units 05:49 Total Bilirubin 0.2 (0.2-1.2) mg/dL AST 10 (5-34) Units/L ALT 12 (0-55) Units/L Alkaline Phosphatase 120 (38-126) Units/L Albumin 2.8 L (3.5-5.0) g/dL - ABG Interpretation ABG results: PT/INR, D-dimer PT 12.3 Seconds (9.4-12.1) H 02/02/17 18:35 Consult Discharge Plan - Plan Referrals: Ron Ward MD [Primary Care Provider] -
--- NOTE | 2017-02-04 10:38 | Electrocardiograph Report ---
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
[2017-02-04] MEDS: traZODone 50 MG TABLET PO SCH (20:16)
[2017-02-04] MEDS: Melatonin 3 MG TABLET PO SCH (20:17)
[2017-02-05] MEDS: Ipratropium/Albuterol Neb 3 ML IH SCH ×6 (03:58→23:35)
[2017-02-05] MEDS: Piperacillin/Tazobactam 3.375 GM/200 ML BAG IVPB SCH ×3 (05:20→23:10)
[2017-02-05] MEDS: *HR* HYDROcodone/Acet 5/325 mg TABLET PO PRN ×3 (05:21→18:05)
[2017-02-05] MEDS: *HR* Heparin 5,000 UNIT/ML VIAL SQ SCH ×3 (05:21→21:26)
[2017-02-05 06:08] LABS: Basophils # 0.1 K/mcL (0.0-0.2); Basophils % 0.7 %; Hematocrit 30.5 % (35.3-44.9); Hemoglobin 9.2 g/dL (11.5-15.4); Immature Granulocytes % 8.6 % (0-4); Lymphocytes # 1.9 K/mcL (0.6-4.6); Lymphocytes % 18.3 %; Mean Corpuscular HGB Conc 30.2 g/dL (31.6-35.5); Mean Corpuscular Hemoglobin 28.8 pg (28.0-33.3); Mean Corpuscular Volume 95.3 fL (83.0-100.0); Mean Platelet Volume 9.8 fL (9.4-12.4); Monocytes # 0.6 K/mcL (0.0-1.3); Monocytes % 5.8 %; Nucleated Red Blood Cells 0.2 /100 WBC (0); Platelet Count 201 K/mcL (140-400); Red Cell Distribution Width 15.9 % (11.5-14.5); Segmented Neutrophils % 66.6 %
[2017-02-05 06:21] LABS: Magnesium 1.7 mg/dL (1.6-2.6)
[2017-02-05 06:22] LABS: BUN/Creatinine Ratio 14 (6-26); Blood Urea Nitrogen 8 mg/dL (7-20); Carbon Dioxide 31 mEq/L (19-29); Chloride 103 mEq/L (98-109); Glucose 119 mg/dL (70-99); Phosphorous 3.4 mg/dL (2.3-4.7); Potassium 3.9 mEq/L (3.5-4.5); Sodium 142 mEq/L (136-145); eGFR For African Americans > 60 (> 60); eGFR For Non-African Americans > 60 (> 60)
[2017-02-05 06:23] LABS: Alanine Aminotransferase 9 Units/L (0-55); Albumin 2.8 g/dL (3.5-5.0); Albumin/Globulin Ratio 1.1 (1.1-2.2); Alkaline Phosphatase 117 Units/L (38-126); Aspartate Amino Transferase 10 Units/L (5-34); Bilirubin,Total 0.3 mg/dL (0.2-1.2); Calcium 8.9 mg/dL (8.6-10.8); Globulin 2.6 g/dL (2.4-3.5); Osmolality,Calculated 293 (280-300); Total Protein 5.4 g/dL (6.0-8.3)
[2017-02-05 06:24] LABS: Neutrophils # 7.1 K/mcL (1.6-8.9)
[2017-02-05 06:25] LABS: Platelet Estimate Normal (Normal)
[2017-02-05] MEDS: Budesonide/Formoterol 160/4.5 MDI IH SCH ×2 (07:55→19:32)
[2017-02-05] MEDS: Tiotropium 18 MCG inhalation IH SCH (07:55)
[2017-02-05] MEDS ORDERED: Aminoglycoside Consult 1 EACH MC ONE (08:28)
[2017-02-05] MEDS: Vancomycin 1,000 MG in D5% in Water 250 ML IVPB SCH ×2 (08:56→21:27)
[2017-02-05] MEDS: GuaiFENesin/Dextromethorphan TABLET PO SCH ×2 (08:58→21:27)
[2017-02-05] MEDS: Metoprolol XL (24 HR) Succ 25 MG TAB.ER.24H PO SCH (08:58)
[2017-02-05] MEDS: Ascorbic Acid 500 MG TABLET PO SCH (08:58)
[2017-02-05] MEDS: *HR* LORazepam 0.5 MG TABLET PO SCH ×2 (08:58→21:27)
[2017-02-05] MEDS: MethylPREDNISolone 40 MG/ML VIAL IVP SCH (08:58)
[2017-02-05] MEDS: Cholecalciferol (D-3) 1,000 UNIT TABLET PO SCH (08:58)
[2017-02-05] MEDS ORDERED: Furosemide 20 MG TABLET PO PRN (10:09)
--- NOTE | 2017-02-05 10:36 | Internal Med Progress Note ---
Date of Encounter: 02/05/17 Time of Encounter: 10:20 - Assessment and plan (1) Sepsis Current Visit: No Status: Resolved Assessment and plan: Secondary to HCAP continue empiric IV abx therapy (Will de-escalate to PO therapy in am) f/u blood culture reports Qualifiers: Sepsis type: Haemophilus influenzae Qualified Code(s): A41.3 - Sepsis due to Hemophilus influenzae (2) Acute exacerbation of chronic obstructive airways disease Current Visit: No Status: Acute Assessment and plan: continue systemic steroids (d/c IV steroids and start Slow prednisone taper, starting with Prednisone 60mg PO qd (start date: 02/05/17)) bronchodilator support O2 supplementation monitor O2 sat, goal O2 sat: 88-92% will closely monitor respiratory status repeat CXR reported patchy opacification of the right upper lung, findings compatible with COPD (3) Healthcare-associated pneumonia Current Visit: No Status: Acute Assessment and plan: CXR reports clearing of PNA compared to previous study will continue abx duration for total of 14 days, as today was day 10 of Levaquin that the patient was taking at home therefore, will continue abx for three more days (Day 01/31) will extend abx duration if needed depending on clinical response (4) Anemia Current Visit: Yes Status: Chronic Assessment and plan: H&H low but acceptable no acute bleeding reported at this time continue to closely monitor will transfuse as needed Qualifiers: Anemia type: other cause Other causes of anemia: antineoplastic chemotherapy Qualified Code(s): D64.81 - Anemia due to antineoplastic chemotherapy; T45.1X5A - Adverse effect of antineoplastic and immunosuppressive drugs, initial encounter; T45.1X5A - Adverse effect of antineoplastic and immunosuppressive drugs, initial encounter (5) Compression fracture of body of thoracic vertebra Current Visit: Yes Status: Chronic Assessment and plan: continue home pain meds (6) DVT prophylaxis Current Visit: Yes Status: Acute Assessment and plan: Heparin SQ (7) Small cell 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 Current Visit: No Status: Chronic (8) Hypophosphatemia Current Visit: Yes Status: Resolved - Subjective Interval history: Patient seen and examined at bedside. Noted to have bibasilar crackles on auscultation, states she feels better since her hospitalization. will continue IV abx and start Prednisone 60mg PO qd x 3 days followed by a slow steroid taper will restart pt's home dose of lasix. - Constitutional Vitals: Temp Pulse Resp BP Pulse Ox 97.6 F 91 16 136/83 100 02/05/17 07:24 02/05/17 07:24 02/05/17 07:55 02/05/17 07:24 02/05/17 07:55 General appearance: Present: cooperative, A&O X 3, pleasant, no acute distress, underweight, answers questions appropriately - Head Head exam: Present: atraumatic, normocephalic - Eye Eye exam: Present: conjuntiva pink, sclera anicteric - Respiratory Respiratory exam: Absent: respiratory distress, wheezes (bibasilar rales) - Cardiovascular Cardiovascular exam: Present: RRR, +S1, +S2. Absent: diastolic murmur, gallop, rubs, systolic murmur - GI/Abdominal GI/Abdominal exam: Present: normal bowel sounds, soft, no peritoneal signs. Absent: distended, tenderness - Extremities Exam Extremities exam: Present: warm, radial pulses palpable and symmetrical. Absent : calf tenderness, tenderness - Neurological Exam Neurological exam: Present: alert, oriented X3 - Psychiatric Psychiatric exam: Present: normal affect, normal mood Internal Medicine: Result - Labs CBC & Chem 7: 02/05/17 05:20 02/05/17 05:20 Labs: Short CBC 02/05/17 Range/Units 05:20 WBC 10.6 (4.3-11.1) K/mcL Hgb 9.2 L (11.5-15.4) g/dL Hct 30.5 L (35.3-44.9) % Plt Count 201 (140-400) K/mcL Neutrophils # 7.1 (1.6-8.9) K/mcL BMP 02/05/17 05:20 Sodium 142 Potassium 3.9 Chloride 103 Carbon Dioxide 31 H BUN 8 Creatinine 0.58 Glucose 119 H Calcium 8.9 Liver Function 02/05/17 Range/Units 05:20 Total Bilirubin 0.3 (0.2-1.2) mg/dL AST 10 (5-34) Units/L ALT 9 (0-55) Units/L Alkaline Phosphatase 117 (38-126) Units/L Albumin 2.8 L (3.5-5.0) g/dL - ABG Interpretation ABG results: PT/INR, D-dimer PT 12.3 Seconds (9.4-12.1) H 02/02/17 18:35 - Impressions Impressions Chest X-Ray 02/05/17 07:00 IMPRESSION: 1. Left-sided PICC line is unchanged in position. 2. There is persistent patchy opacification of the right upper lung. 3. Findings compatible with COPD. D/ / Franki Nickerson MD / Franki Nickerson MD Interpreting Provider: Franki Nickerson MD Consult Discharge Plan - Plan Referrals: Ron Ward MD [Primary Care Provider] -
[2017-02-05] MEDS: predniSONE 20 MG TABLET PO SCH (16:30)
[2017-02-05] MEDS: traZODone 50 MG TABLET PO SCH (21:26)
[2017-02-05] MEDS: Melatonin 3 MG TABLET PO SCH (21:27)
[2017-02-06] MEDS: Ipratropium/Albuterol Neb 3 ML IH SCH ×5 (04:38→21:13)
[2017-02-06] MEDS: *HR* Heparin 5,000 UNIT/ML VIAL SQ SCH ×3 (05:24→21:10)
[2017-02-06] MEDS: *HR* HYDROcodone/Acet 5/325 mg TABLET PO PRN ×5 (05:26→22:03)
[2017-02-06 06:01] LABS: Basophils # 0.1 K/mcL (0.0-0.2); Basophils % 0.5 %; Hematocrit 32.6 % (35.3-44.9); Hemoglobin 10.1 g/dL (11.5-15.4); Immature Granulocytes % 4.6 % (0-4); Lymphocytes # 2.5 K/mcL (0.6-4.6); Lymphocytes % 22.6 %; Mean Corpuscular Hemoglobin 29.2 pg (28.0-33.3); Mean Corpuscular Volume 94.2 fL (83.0-100.0); Mean Platelet Volume 9.7 fL (9.4-12.4); Monocytes # 0.8 K/mcL (0.0-1.3); Monocytes % 7.2 %; Neutrophils # 7.1 K/mcL (1.6-8.9); Nucleated Red Blood Cells 0.4 /100 WBC (0); Platelet Count 211 K/mcL (140-400); Red Blood Count 3.46 M/mcL (3.82-4.97); Red Cell Distribution Width 15.9 % (11.5-14.5); Segmented Neutrophils % 65.1 %
[2017-02-06 06:15] LABS: Alanine Aminotransferase 10 Units/L (7-52); Albumin 3.5 g/dL (3.5-5.7); Albumin/Globulin Ratio 1.7 (1.1-2.2); Alkaline Phosphatase 108 Units/L (34-104); Aspartate Amino Transferase 9 Units/L (13-39); BUN/Creatinine Ratio 19 (6-26); Bilirubin,Total 0.3 mg/dL (0.3-1.0); Blood Urea Nitrogen 10 mg/dL (8-23); Calcium 8.9 mg/dL (8.6-10.3); Carbon Dioxide 35 mEq/L (23-29); Chloride 103 mEq/L (98-107); Globulin 2.1 g/dL (2.4-3.5); Glucose 86 mg/dL (70-105); Magnesium 1.9 mg/dL (1.6-2.6); Osmolality,Calculated 294 (280-300); Potassium 3.8 mEq/L (3.5-5.1); Sodium 143 mEq/L (136-145); Total Protein 5.6 g/dL (6.4-8.9); eGFR For African Americans > 60 (> 60); eGFR For Non-African Americans > 60 (> 60)
[2017-02-06] MEDS: Budesonide/Formoterol 160/4.5 MDI IH SCH ×2 (08:19→21:14)
[2017-02-06] MEDS: Tiotropium 18 MCG inhalation IH SCH (08:26)
[2017-02-06] MEDS: Ascorbic Acid 500 MG TABLET PO SCH (08:51)
[2017-02-06] MEDS: GuaiFENesin/Dextromethorphan TABLET PO SCH ×2 (08:51→21:11)
[2017-02-06] MEDS: *HR* LORazepam 0.5 MG TABLET PO SCH ×2 (08:51→21:12)
[2017-02-06] MEDS: Cholecalciferol (D-3) 1,000 UNIT TABLET PO SCH (08:51)
[2017-02-06] MEDS: predniSONE 20 MG TABLET PO SCH (08:51)
[2017-02-06] MEDS: levoFLOXacin 750 MG TABLET PO SCH (08:51)
[2017-02-06] MEDS: Metoprolol XL (24 HR) Succ 25 MG TAB.ER.24H PO SCH (08:52)
--- NOTE | 2017-02-06 09:17 | Internal Med Progress Note ---
Date of Encounter: 02/06/17 Time of Encounter: 09:01 - Assessment and plan (1) Sepsis Current Visit: No Status: Resolved Assessment and plan: Secondary to HCAP started PO levaquin todau continue empiric IV abx therapy (Will de-escalate to PO therapy in am) blood cultures preliminary report has remained negative Qualifiers: Sepsis type: Haemophilus influenzae Qualified Code(s): A41.3 - Sepsis due to Hemophilus influenzae (2) Acute exacerbation of chronic obstructive airways disease Current Visit: No Status: Acute Assessment and plan: continue systemic steroids (continue Slow prednisone taper, Prednisone 60mg PO qd (start date: 02/05/17)) bronchodilator support O2 supplementation monitor O2 sat, goal O2 sat: 88-92% will closely monitor respiratory status repeat CXR reported patchy opacification of the right upper lung, findings compatible with COPD Likely d/c in am if continues to clinically improve (3) Healthcare-associated pneumonia Current Visit: No Status: Acute Assessment and plan: CXR reports clearing of PNA compared to previous study will continue abx duration for total of 14 days therefore, will continue abx for three more days (Day 13/14) will extend abx duration if needed depending on clinical response (4) Anemia Current Visit: Yes Status: Chronic Assessment and plan: H&H low but acceptable no acute bleeding reported at this time continue to closely monitor will transfuse as needed Qualifiers: Anemia type: other cause Other causes of anemia: antineoplastic chemotherapy Qualified Code(s): D64.81 - Anemia due to antineoplastic chemotherapy; T45.1X5A - Adverse effect of antineoplastic and immunosuppressive drugs, initial encounter; T45.1X5A - Adverse effect of antineoplastic and immunosuppressive drugs, initial encounter (5) Compression fracture of body of thoracic vertebra Current Visit: Yes Status: Chronic Assessment and plan: continue home pain meds (6) DVT prophylaxis Current Visit: Yes Status: Acute Assessment and plan: Heparin SQ (7) Small cell 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 Current Visit: No Status: Chronic (8) Hypophosphatemia Current Visit: Yes Status: Resolved - Subjective Interval history: Patient seen and examined at bedside. reports of feeling better however still continues to get short of breath with exertion. Pt noted to have worsening hypercapnia however saturating well on baseline nasal cannula. Pt encouraged to use bipap support however she states she is unable to tolerate bipap and refuses to use bipap during this hospitalization. - Constitutional Vitals: Temp Pulse Resp BP Pulse Ox 97.4 F L 83 16 140/78 96 02/06/17 06:48 02/06/17 06:48 02/06/17 06:48 02/06/17 06:48 02/06/17 06:48 General appearance: Present: cooperative, A&O X 3, pleasant, no acute distress, underweight, answers questions appropriately - Head Head exam: Present: atraumatic, normocephalic - Eye Eye exam: Present: conjuntiva pink, sclera anicteric - Respiratory Respiratory exam: Present: decreased breath sounds. Absent: respiratory distress, wheezes - Cardiovascular Cardiovascular exam: Present: RRR, +S1, +S2. Absent: diastolic murmur, gallop, rubs, systolic murmur - GI/Abdominal GI/Abdominal exam: Present: normal bowel sounds, soft, no peritoneal signs. Absent: distended, tenderness - Extremities Exam Extremities exam: Present: warm, radial pulses palpable and symmetrical. Absent : calf tenderness, pedal edema - Neurological Exam Neurological exam: Present: alert, oriented X3 - Psychiatric Psychiatric exam: Present: normal affect, normal mood Internal Medicine: Result - Labs CBC & Chem 7: 02/06/17 05:30 02/06/17 05:30 Labs: Short CBC 02/06/17 Range/Units 05:30 WBC 10.9 (4.3-11.1) K/mcL Hgb 10.1 L (11.5-15.4) g/dL Hct 32.6 L (35.3-44.9) % Plt Count 211 (140-400) K/mcL Neutrophils # 7.1 (1.6-8.9) K/mcL BMP 02/06/17 05:30 Sodium 143 Potassium 3.8 Chloride 103 Carbon Dioxide 35 H BUN 10 Creatinine 0.53 L Glucose 86 Calcium 8.9 Liver Function 02/06/17 Range/Units 05:30 Total Bilirubin 0.3 (0.3-1.0) mg/dL AST 9 L (13-39) Units/L ALT 10 (7-52) Units/L Alkaline Phosphatase 108 H (34-104) Units/L Albumin 3.5 (3.5-5.7) g/dL - ABG Interpretation ABG results: PT/INR, D-dimer PT 12.3 Seconds (9.4-12.1) H 02/02/17 18:35 Consult Discharge Plan - Plan Referrals: Ron Ward MD [Primary Care Provider] -
[2017-02-06] MEDS: Melatonin 3 MG TABLET PO SCH (21:11)
[2017-02-06] MEDS: traZODone 50 MG TABLET PO SCH (21:11)
[2017-02-06] MEDS: Sennosides/Docusate Sodium TABLET PO SCH (21:11)
[2017-02-07] MEDS: Ipratropium/Albuterol Neb 3 ML IH SCH ×7 (00:29→23:05)
[2017-02-07] MEDS: *HR* Heparin 5,000 UNIT/ML VIAL SQ SCH ×3 (05:09→22:57)
[2017-02-07] MEDS: *HR* HYDROcodone/Acet 5/325 mg TABLET PO PRN ×4 (05:09→22:56)
[2017-02-07 06:28] LABS: Hematocrit 32.6 % (35.3-44.9); Hemoglobin 10.1 g/dL (11.5-15.4); Mean Corpuscular Hemoglobin 29.5 pg (28.0-33.3); Mean Corpuscular Volume 95.3 fL (83.0-100.0); Mean Platelet Volume 9.6 fL (9.4-12.4); Nucleated Red Blood Cells 0.2 /100 WBC (0); Platelet Count 257 K/mcL (140-400); Red Blood Count 3.42 M/mcL (3.82-4.97); Red Cell Distribution Width 15.9 % (11.5-14.5)
[2017-02-07 06:52] LABS: Lymphocytes # 2.1 K/mcL (0.6-4.6); Monocytes # 0.6 K/mcL (0.0-1.3); Neutrophils # 7.9 K/mcL (1.6-8.9); Platelet Estimate Normal (Normal); Reactive Lymphocytes Present (Not Present)
[2017-02-07 06:59] LABS: BUN/Creatinine Ratio 27 (6-26); Blood Urea Nitrogen 13 mg/dL (8-23); Calcium 8.4 mg/dL (8.6-10.3); Carbon Dioxide 34 mEq/L (23-29); Chloride 105 mEq/L (98-107); Glucose 89 mg/dL (70-105); Magnesium 2.1 mg/dL (1.6-2.6); Osmolality,Calculated 300 (280-300); Phosphorous 2.9 mg/dL (2.7-4.5); Potassium 3.5 mEq/L (3.5-5.1); Sodium 145 mEq/L (136-145); eGFR For African Americans > 60 (> 60); eGFR For Non-African Americans > 60 (> 60)
[2017-02-07] MEDS: Budesonide/Formoterol 160/4.5 MDI IH SCH ×2 (08:17→20:24)
[2017-02-07] MEDS: Tiotropium 18 MCG inhalation IH SCH (08:18)
[2017-02-07] MEDS: *HR* LORazepam 0.5 MG TABLET PO SCH ×2 (09:35→20:56)
[2017-02-07] MEDS: Sennosides/Docusate Sodium TABLET PO SCH ×2 (09:35→20:56)
[2017-02-07] MEDS: Ascorbic Acid 500 MG TABLET PO SCH (09:36)
[2017-02-07] MEDS: predniSONE 20 MG TABLET PO SCH (09:36)
[2017-02-07] MEDS: GuaiFENesin/Dextromethorphan TABLET PO SCH ×2 (09:36→20:56)
[2017-02-07] MEDS: Metoprolol XL (24 HR) Succ 25 MG TAB.ER.24H PO SCH (09:36)
[2017-02-07] MEDS: levoFLOXacin 750 MG TABLET PO SCH (09:36)
[2017-02-07] MEDS: Cholecalciferol (D-3) 1,000 UNIT TABLET PO SCH (09:36)
--- NOTE | 2017-02-07 10:40 | Internal Med Progress Note ---
Date of Encounter: 02/07/17 Time of Encounter: 10:15 - Assessment and plan (1) Sepsis Current Visit: No Status: Resolved Assessment and plan: Secondary to HCAP PO levaquin blood cultures preliminary report has remained negative Qualifiers: Sepsis type: Haemophilus influenzae Qualified Code(s): A41.3 - Sepsis due to Hemophilus influenzae (2) Acute exacerbation of chronic obstructive airways disease Current Visit: No Status: Acute Assessment and plan: continue systemic steroids (continue Slow prednisone taper, Prednisone 60mg PO qd (start date: 02/05/17)) bronchodilator support O2 supplementation monitor O2 sat, goal O2 sat: 88-92% will closely monitor respiratory status repeat CXR reported patchy opacification of the right upper lung, findings compatible with COPD Pt clinically worsened from previous day, even though her O2 saturation has remained above 90%, she is in significant respiratory discomfort with minimal exertion Will obtain 2D echo to rule out cardiac etiology contributing to her dyspnea (3) Healthcare-associated pneumonia Current Visit: No Status: Acute Assessment and plan: CXR reports clearing of PNA compared to previous study will continue abx duration for total of 14 days therefore, will continue abx for three more days (Day 14) will extend abx duration if needed depending on clinical response (4) Anemia Current Visit: Yes Status: Chronic Assessment and plan: H&H low but acceptable no acute bleeding reported at this time continue to closely monitor will transfuse as needed Qualifiers: Anemia type: other cause Other causes of anemia: antineoplastic chemotherapy Qualified Code(s): D64.81 - Anemia due to antineoplastic chemotherapy; T45.1X5A - Adverse effect of antineoplastic and immunosuppressive drugs, initial encounter; T45.1X5A - Adverse effect of antineoplastic and immunosuppressive drugs, initial encounter (5) Compression fracture of body of thoracic vertebra Current Visit: Yes Status: Chronic Assessment and plan: continue home pain meds (6) DVT prophylaxis Current Visit: Yes Status: Acute Assessment and plan: Heparin SQ (7) Small cell 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 Current Visit: No Status: Chronic (8) Hypophosphatemia Current Visit: Yes Status: Resolved - Subjective Interval history: Patient seen and examined at bedside. Patient states even with minimal exertion she gets severely short of breath. I evaluated the patient shortly after she had used the beside commode, and she was noted to be in acute respiratory distress. Even though her O2 sat remained above 90%, she was noted be tachypneic , use of accessory muscle. She was noted to have conversational dyspnea. Pt has noted history of lung ca and currently undergoing chemotherapy. Her last CT chest was in Jan 2017 which reported: 1. 2.2 x 2.3 cm right hilar/central lung mass, which is the site of the patient's primary lung cancer, which is stable. 2. Masslike consolidations in the right upper lobe, mildly improved from the previous chest CT. These are more likely infectious or inflammatory, although, metastatic disease is not excluded. Continued CT follow-up is suggested. 3. Moderate emphysema. No prior 2D echo on file Will monitor overnight on present treatment and obtain 2D echo to rule out any cardiac etiology contributing to her present symptoms - Constitutional Vitals: Temp Pulse Resp BP Pulse Ox 98.2 F 92 16 125/87 96 02/07/17 06:49 02/07/17 06:49 02/07/17 08:18 02/07/17 06:49 02/07/17 09:49 General appearance: Present: cooperative, A&O X 3, pleasant, no acute distress, underweight, answers questions appropriately - Head Head exam: Present: atraumatic, normocephalic - Eye Eye exam: Present: conjuntiva pink, sclera anicteric - Respiratory Respiratory exam: Present: accessory muscle use, respiratory distress (mild respiratory distress). Absent: wheezes (equal air entry bilaterally ) - Cardiovascular Cardiovascular exam: Present: RRR, +S1, +S2. Absent: diastolic murmur, gallop, rubs, systolic murmur - GI/Abdominal GI/Abdominal exam: Present: normal bowel sounds, soft, no peritoneal signs. Absent: distended, tenderness - Extremities Exam Extremities exam: Present: warm, radial pulses palpable and symmetrical. Absent : calf tenderness - Neurological Exam Neurological exam: Present: alert, oriented X3 Internal Medicine: Result - Labs CBC & Chem 7: 02/07/17 06:00 02/07/17 06:00 Labs: Short CBC 02/07/17 Range/Units 06:00 WBC 10.7 (4.3-11.1) K/mcL Hgb 10.1 L (11.5-15.4) g/dL Hct 32.6 L (35.3-44.9) % Plt Count 257 (140-400) K/mcL Neutrophils # 7.9 (1.6-8.9) K/mcL BMP 02/07/17 06:00 Sodium 145 Potassium 3.5 Chloride 105 Carbon Dioxide 34 H BUN 13 Creatinine 0.49 L Glucose 89 Calcium 8.4 L - ABG Interpretation ABG results: PT/INR, D-dimer PT 12.3 Seconds (9.4-12.1) H 02/02/17 18:35 Consult Discharge Plan - Plan Instructions: Cigarette Smoking and Your Health (GEN), Chronic Obstructive Pulmonary Disease (DC), Sepsis (DC), Pneumonia (DC), Cigarette Smoking and Your Health, 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
[2017-02-07] MEDS: traZODone 50 MG TABLET PO SCH (20:56)
[2017-02-07] MEDS: Melatonin 3 MG TABLET PO SCH (20:58)
[2017-02-08] MEDS: Ipratropium/Albuterol Neb 3 ML IH SCH ×3 (03:51→11:31)
[2017-02-08] MEDS: *HR* Heparin 5,000 UNIT/ML VIAL SQ SCH ×2 (05:37→13:48)
[2017-02-08 06:07] LABS: Basophils # 0.1 K/mcL (0.0-0.2); Basophils % 0.7 %; Eosinophils % 0.1 %; Hematocrit 32.6 % (35.3-44.9); Hemoglobin 9.9 g/dL (11.5-15.4); Immature Granulocytes % 6.8 % (0-4); Lymphocytes # 3.4 K/mcL (0.6-4.6); Lymphocytes % 30.3 %; Mean Corpuscular HGB Conc 30.4 g/dL (31.6-35.5); Mean Corpuscular Hemoglobin 28.9 pg (28.0-33.3); Mean Corpuscular Volume 95.3 fL (83.0-100.0); Mean Platelet Volume 9.6 fL (9.4-12.4); Monocytes # 0.9 K/mcL (0.0-1.3); Monocytes % 7.6 %; Neutrophils # 6.1 K/mcL (1.6-8.9); Nucleated Red Blood Cells 0.2 /100 WBC (0); Platelet Count 287 K/mcL (140-400); Red Blood Count 3.42 M/mcL (3.82-4.97); Segmented Neutrophils % 54.5 %
[2017-02-08 06:16] LABS: BUN/Creatinine Ratio 24 (6-26); Blood Urea Nitrogen 12 mg/dL (8-23); Calcium 8.7 mg/dL (8.6-10.3); Carbon Dioxide 33 mEq/L (23-29); Chloride 105 mEq/L (98-107); Glucose 90 mg/dL (70-105); Magnesium 2.1 mg/dL (1.6-2.6); Osmolality,Calculated 291 (280-300); Potassium 3.6 mEq/L (3.5-5.1); Sodium 141 mEq/L (136-145); eGFR For African Americans > 60 (> 60); eGFR For Non-African Americans > 60 (> 60)
[2017-02-08 07:01] LABS: Platelet Estimate Normal (Normal)
[2017-02-08] MEDS: *HR* LORazepam 0.5 MG TABLET PO SCH (08:09)
[2017-02-08] MEDS: Metoprolol XL (24 HR) Succ 25 MG TAB.ER.24H PO SCH (08:09)
[2017-02-08] MEDS: GuaiFENesin/Dextromethorphan TABLET PO SCH (08:09)
[2017-02-08] MEDS: Cholecalciferol (D-3) 1,000 UNIT TABLET PO SCH (08:09)
[2017-02-08] MEDS: predniSONE 20 MG TABLET PO SCH (08:09)
[2017-02-08] MEDS: levoFLOXacin 750 MG TABLET PO SCH (08:09)
[2017-02-08] MEDS: Sennosides/Docusate Sodium TABLET PO SCH (08:09)
[2017-02-08] MEDS: Ascorbic Acid 500 MG TABLET PO SCH (08:09)
[2017-02-08] MEDS: Tiotropium 18 MCG inhalation IH SCH (08:18)
[2017-02-08] MEDS: Budesonide/Formoterol 160/4.5 MDI IH SCH (08:18)
[2017-02-08 11:29] VITALS: BP 138/72
--- NOTE | 2017-02-08 12:36 | Discharge Summary ---
Date of Encounter: 02/08/17 Time of Encounter: 12:05 - Discharge Diagnosis (1) Sepsis Priority: Primary Status: Resolved Qualifiers: Sepsis type: Haemophilus influenzae Qualified Code(s): A41.3 - Sepsis due to Hemophilus influenzae (2) Acute exacerbation of chronic obstructive airways disease Priority: Primary Status: Acute (3) Healthcare-associated pneumonia Priority: Secondary Status: Resolved (4) Anemia Priority: Secondary Status: Chronic Qualifiers: Anemia type: other cause Other causes of anemia: antineoplastic chemotherapy Qualified Code(s): D64.81 - Anemia due to antineoplastic chemotherapy; T45.1X5A - Adverse effect of antineoplastic and immunosuppressive drugs, initial encounter; T45.1X5A - Adverse effect of antineoplastic and immunosuppressive drugs, initial encounter (5) Compression fracture of body of thoracic vertebra Priority: Secondary Status: Chronic (6) DVT prophylaxis Priority: Secondary Status: Acute (7) Small cell 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 Priority: Secondary Status: Chronic (8) Hypophosphatemia Priority: Secondary Status: Resolved - Discharge Medications Home Medications: DULoxetine [Cymbalta] 30 mg PO HS 02/15/16 [History] Trazodone HCl 200 mg PO HS 02/15/16 [History] Albuterol Neb [Proventil Neb] 2.5 mg IH Q6H PRN 10/14/16 [History] Albuterol Sulfate [Albuterol Inhaler] 2 puff IH Q6H PRN 10/14/16 [History] Budesonide/Formoterol 160/4.5 [Symbicort 160/4.5] 2 puff IH BIDR 10/14/16 [ History] Oxygen 2 l NS AD 10/14/16 [History] Tiotropium [Spiriva] 18 mcg IH DAILY 10/14/16 [History] Ondansetron [Zofran ODT] 8 mg SL Q4HR PRN #20 tab.rapdis 11/20/16 [Rx] Dexamethasone [Decadron] 4 mg PO BID #30 tab 11/27/16 [Rx] Magic Mouthwash [Magic Mouthwash BLM] 10 ml PO QID PRN #240 ml 11/27/16 [Rx] LORazepam [Ativan] 0.5 mg PO BID #60 tablet 11/29/16 [Rx] Ascorbate Calcium [Vitamin C] 500 mg PO DAILY 12/14/16 [History] Furosemide [Lasix] 20 mg PO DAILY PRN #15 tablet 12/22/16 [Rx] Metoprolol XL (24 HR) Succ [Toprol Xl] 25 mg PO DAILY #30 tab.er.24h 12/22/16 [ Rx] Polyethylene Glycol 3350 [MiraLAX] 17 gm PO DAILY PRN #30 powd.pack 12/22/16 [Rx ] Sennosides/Docusate Sodium [Senna-Docusate Sodium Tablet] 2 each PO BID PRN #60 tablet 12/22/16 [Rx] Calcium Carbonate/Vitamin D3 [Calcium 500 + Vit D Caplet] 2 each PO DAILY #60 tablet 12/26/16 [Rx] Oxycodone HCl 10 mg PO TID #90 tab 12/26/16 [Rx] Cholecalciferol (D-3) [Vitamin D] 5,000 unit PO DAILY 02/02/17 [History] Melatonin [Melatin] 3 mg PO HS 02/02/17 [History] Allergies/Adverse Reactions: 3 Allergy/AdvReac Type Severity Reaction Status Date / Time No Known Allergies Allergy Verified 02/02/17 15:16 Procedures/tests Complete & Pending: Procedures Performed prior 72 hours Category Date Time Status EV echocardiogram Stat Y 02/07/17 10:33 Completed Date of admission: 02/02/17 17:37 Primary care physician: Ron Ward MD Consults: 02/02/17 17:55 Consult to Charge Poster [CONS] Routine Reason for SW Consult: Please assess pt. for possible home needs for post- discharge planning. 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 Please follow up with pulmonology within 1-2 weeks after your discharge from the hospital. Please continue the prednisone taper as prescribed, starting with 60 mg of prednisone once a day Continue all other home medications as prescribed by your primary care physician - Diet and Activity Activity: as per physical therapy, wear oxygen at all times, wear oxygen at night Diet: low fat, low cholesterol, low salt diet Hospital course: Ms. 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 She was recently discharged from the hospital after being managing for the same. She was started on broad-spectrum IV antibiotics, IV steroids, and O2 support. Patient's antibiotics were de-escalated as the imaging findings reported clearing of previously reported pneumonia. Patient has finished 14 days of antibiotic therapy for her pneumonia. Her current exacerbation appeared to be more COPD without any worsening of prior pneumonia. She was started on by mouth steroids to which she responded appropriately. She is currently back to her baseline respiratory status. 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 Patient is medically stable for discharge to home today. Patient demonstrates understanding of her diagnosis, and agrees with the discharge care and plan. - Time Spent with Patient Total time spent providing and/or coordinating discharge services: Greater than 30 minutes - Constitutional Vitals: Temp Pulse Resp BP Pulse Ox 98.3 F 92 16 138/72 98 02/08/17 11:24 02/08/17 11:24 02/08/17 11:32 02/08/17 11:24 02/08/17 11:32 General appearance: Present: cooperative, A&O X 3, pleasant, no acute distress, underweight, answers questions appropriately - Head Head exam: Present: atraumatic, normocephalic - Eye Eye exam: Present: conjuntiva pink, sclera anicteric - Respiratory Respiratory exam: Present: CTAB. Absent: accessory muscle use, rales, rhonchi, wheezes - Cardiovascular Cardiovascular exam: Present: RRR, +S1, +S2. Absent: diastolic murmur, gallop, rubs, systolic murmur - GI/Abdominal GI/Abdominal exam: Present: normal bowel sounds, soft, no peritoneal signs. Absent: distended, tenderness - Extremities Exam Extremities exam: Present: warm, radial pulses palpable and symmetrical. Absent : calf tenderness, cyanotic, pedal edema - Neurological Exam Neurological exam: Present: alert, oriented X3 - Psychiatric Psychiatric exam: Present: normal affect, normal mood
--- NOTE | 2017-02-08 12:40 | Physician Discharge Referral ---
Home Health/Hosp Referral Info Transfer to: Home Health Provider in Charge Post Discharge: PCP - Diagnosis (1) Sepsis Priority: Primary Status: Resolved (2) Acute exacerbation of chronic obstructive airways disease Priority: Primary Status: Acute (3) Healthcare-associated pneumonia Priority: Secondary Status: Resolved (4) Anemia Priority: Secondary Status: Chronic (5) Compression fracture of body of thoracic vertebra Priority: Secondary Status: Chronic (6) DVT prophylaxis Priority: Secondary Status: Acute (7) Small cell 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 Priority: Secondary Status: Chronic (8) Hypophosphatemia Priority: Secondary Status: Resolved - Respiratory Orders Smoking Cessation: Smoking cessation has been advised. For more information, call the [place] Tobacco Quit Line at 0-255-TUCY-NOW. - Services Needed Following services are medically necessary services: Nursing, Home Health Aide, Physical Therapy, Occupational Therapy - Transfer Medications Home Medications: DULoxetine [Cymbalta] 30 mg PO HS 02/15/16 [History] Trazodone HCl 200 mg PO HS 02/15/16 [History] Albuterol Neb [Proventil Neb] 2.5 mg IH Q6H PRN 10/14/16 [History] Albuterol Sulfate [Albuterol Inhaler] 2 puff IH Q6H PRN 10/14/16 [History] Budesonide/Formoterol 160/4.5 [Symbicort 160/4.5] 2 puff IH BIDR 10/14/16 [ History] Oxygen 2 l NS AD 10/14/16 [History] Tiotropium [Spiriva] 18 mcg IH DAILY 10/14/16 [History] Ondansetron [Zofran ODT] 8 mg SL Q4HR PRN #20 tab.rapdis 11/20/16 [Rx] Dexamethasone [Decadron] 4 mg PO BID #30 tab 11/27/16 [Rx] Magic Mouthwash [Magic Mouthwash BLM] 10 ml PO QID PRN #240 ml 11/27/16 [Rx] LORazepam [Ativan] 0.5 mg PO BID #60 tablet 11/29/16 [Rx] Ascorbate Calcium [Vitamin C] 500 mg PO DAILY 12/14/16 [History] Furosemide [Lasix] 20 mg PO DAILY PRN #15 tablet 12/22/16 [Rx] Metoprolol XL (24 HR) Succ [Toprol Xl] 25 mg PO DAILY #30 tab.er.24h 12/22/16 [ Rx] Polyethylene Glycol 3350 [MiraLAX] 17 gm PO DAILY PRN #30 powd.pack 12/22/16 [Rx ] Sennosides/Docusate Sodium [Senna-Docusate Sodium Tablet] 2 each PO BID PRN #60 tablet 12/22/16 [Rx] Calcium Carbonate/Vitamin D3 [Calcium 500 + Vit D Caplet] 2 each PO DAILY #60 tablet 12/26/16 [Rx] Oxycodone HCl 10 mg PO TID #90 tab 12/26/16 [Rx] Cholecalciferol (D-3) [Vitamin D] 5,000 unit PO DAILY 02/02/17 [History] Melatonin [Melatin] 3 mg PO HS 02/02/17 [History] Allergies/Adverse Reactions: 3 Allergy/AdvReac Type Severity Reaction Status Date / Time No Known Allergies Allergy Verified 02/02/17 15:16 Certification: Further, I certify that my clinical findings support that this patient is homebound (i.e. absences from home require considerable and taxing effort and are for medical reasons or mandaen services or infrequently or short duration when for other reasons) because: Homebound Reason: Patient requires assistance of a person or device to safely leave home Attestation: My signature below is to certify that this patient is under my care and that I, or nurse practitioner, or a physician's nurse practitioner physicians assistant working with me, has a face-to -face encounter with this patient.
== END 2017-02-08 14:30 | disposition home health service (06) | DRG 871 ==
LOC: EMEROO 15:13 → 2NENU 17:37 → SUATTDRO 17:37 → 2NENU 18:42
PROVIDERS: ADMIT Nurse Practitioner Family; ATTEND Internal Medicine

== ENCOUNTER 2017-03-05 13:53 | Inpatient (IN) ==
[2017-03-05] MEDS ORDERED: methylPREDNISolone 125 MG/2 ML VIAL IVP ONE (14:33)
[2017-03-05] MEDS ORDERED: Ipratropium/Albuterol Neb 3 ML IH ONE (14:33)
[2017-03-05 14:44] LABS: Basophils % 0.1 %; Eosinophils % 0.1 %; Hematocrit 36.9 % (35.3-44.9); Hemoglobin 11.3 g/dL (11.5-15.4); Immature Granulocytes % 0.5 % (0-4); Lymphocytes # 2.6 K/mcL (0.6-4.6); Mean Corpuscular HGB Conc 30.6 g/dL (31.6-35.5); Mean Corpuscular Hemoglobin 28.8 pg (28.0-33.3); Mean Corpuscular Volume 93.9 fL (83.0-100.0); Mean Platelet Volume 9.1 fL (9.4-12.4); Monocytes # 0.7 K/mcL (0.0-1.3); Monocytes % 4.5 %; Neutrophils # 12.6 K/mcL (1.6-8.9); Platelet Count 319 K/mcL (140-400); Red Blood Count 3.93 M/mcL (3.82-4.97); Red Cell Distribution Width 13.8 % (11.5-14.5); Segmented Neutrophils % 78.8 %
--- NOTE | 2017-03-05 14:51 | Emergency Department Note ---
Disposition Clinical Impression: Bronchial obstruction, HCAP (healthcare-associated pneumonia) Lung cancer Qualifiers: Laterality: right Lung location: hilum of lung Qualified Code(s): C34.01 - Malignant neoplasm of right main bronchus Sepsis Qualifiers: Sepsis type: sepsis due to unspecified organism Qualified Code(s): A41.9 - Sepsis, unspecified organism Disposition: Admitted As Inpatient Condition: Fair Time of Disposition: 17:38 SOB HPI - General Chief Complaint: ED Shortness of Breath/Dyspnea Stated Complaint: NOHELIA Time Seen by Provider: 03/05/17 14:08 Source: patient Mode of arrival: ambulatory Limitations: no limitations Nursing Notes Reviewed: Yes Vital Signs Reviewed: Yes - History of Present Illness 61-year-old female with shortness of breath, history of mediastinal mass recent lung cancer, she had chemotherapy yesterday. She woke up this morning feeling acutely short of breath. Patient's had trouble catching her breath. She has no hemoptysis no history of pulmonary embolus. Patient denies chest pain or pressure, she states this is trouble breathing. She does have a history of COPD as well, she states that she is on oxygen at all 2 L, she said no fever chills or productive sputum, which is alert chronic cough. Pt Subjective Complaint: shortness of breath Onset (ago): hour(s) Context: other (cancer diagnosis and COPD) Severity: moderate Improves with: nothing Worsens with: nothing Known history of: COPD, asthma Associated symptoms: Reports: cough, wheezing. Denies: chest pain, pain with inspiration, fever, sputum production, orthopnea, lower extremity pain, polyuria , polydipsia Treatment prior to arrival: oxygen Cough present: Yes Cough Description: Voluntary Cough Frequency: Continuous Sputum production: Yes - Related Data Home Medications Medication Instructions Recorded Confirmed DULoxetine [Cymbalta] 30 mg PO HS 02/15/16 03/05/17 Trazodone HCl 200 mg PO HS 02/15/16 03/05/17 Albuterol Neb [Proventil Neb] 2.5 mg IH Q6H PRN 10/14/16 03/05/17 Albuterol Sulfate [Albuterol 2 puff IH Q6H PRN 10/14/16 03/05/17 Inhaler] Budesonide/Formoterol 160/4.5 2 puff IH BIDR 10/14/16 03/05/17 [Symbicort 160/4.5] Oxygen 2 l NS AD 10/14/16 03/05/17 Tiotropium [Spiriva] 18 mcg IH DAILY 10/14/16 03/05/17 Ascorbate Calcium [Vitamin C] 500 mg PO DAILY 12/14/16 03/05/17 Cholecalciferol (D-3) [Vitamin D] 5,000 unit PO DAILY 02/02/17 03/05/17 Melatonin [Melatin] 3 mg PO HS 02/02/17 03/05/17 GuaiFENesin/Dextromethorphan 1 each PO BID 02/19/17 03/05/17 [Mucinex DM] Previous Rx's Medication Instructions Recorded Ondansetron [Zofran ODT] 8 mg SL Q4HR PRN #20 tab.rapdis 11/20/16 Dexamethasone [Decadron] 4 mg PO BID #30 tab 11/27/16 Magic Mouthwash [Magic Mouthwash 10 ml PO QID PRN #240 ml 11/27/16 BLM] LORazepam [Ativan] 0.5 mg PO BID #60 tablet 11/29/16 Polyethylene Glycol 3350 [MiraLAX] 17 gm PO DAILY PRN #30 powd.pack 12/22/16 Sennosides/Docusate Sodium 2 each PO BID PRN #60 tablet 12/22/16 [Senna-Docusate Sodium Tablet] Calcium Carbonate/Vitamin D3 2 each PO DAILY #60 tablet 12/26/16 [Calcium 500 + Vit D Caplet] OxyCODONE Immed Rel [Roxicodone 10 10 mg PO TID #90 tab 02/19/17 MG] predniSONE [Prednisone] 10 mg PO DAILY #30 tab.ds.pk 02/19/17 Allergies Allergy/AdvReac Type Severity Reaction Status Date / Time No Known Allergies Allergy Verified 03/05/17 14:00 All systems ED: reviewed and negative except as stated. Review of Systems: As Per HPI Constitutional: Denies: fever, chills Eyes: Denies: eye pain, eye discharge ENT ED: Denies: ear pain Cardiovascular: Denies: chest pain, palpitations Respiratory: Reports: as per HPI, cough, dyspnea, sputum production. Denies: hemoptysis Gastrointestinal: Denies: abdominal pain, nausea, vomiting Genitourinary: Denies: urgency, dysuria Musculoskeletal: Denies: back pain Integumentary: Denies: rash Neurological: Denies: headache Psychiatric: Denies: anxiety Past Medical History - Past Medical History Attestation: Yes The following information was validated with the patient. Source: nursing notes reviewed Medical history: Reports: cancer, COPD, hypertension Surgical history: Reports: hysterectomy (Partial) Psychiatric history: Reports: anxiety, depression CROZE CUTTER history: Reports: no CROZE CUTTER history - Social History Smoking Status: Never smoker Smokeless Tobacco Status: No Alcohol use: Reports: none Drug use: Reports: none Physical Exam - General Limitations: no limitations General appearance: alert, in distress (mild) - Head Head exam: atraumatic - Eye Eye exam: Present: normal appearance, PERRL - ENT ENT exam: mucous membranes dry - Neck Neck exam: Present: normal inspection, full ROM - Chest Chest inspection: Present: normal inspection - Respiratory Respiratory exam: Present: respiratory distress, wheezes - Expanded Respiratory Exam Location: wheezes: Left, Right - Cardiovascular Cardiovascular exam: Present: tachycardia - Abdominal Exam Abdominal exam: Present: soft, Non-Tender - Extremities Exam Extremities exam: Present: normal inspection, full ROM - Neurological Exam Neurological exam: Present: alert, oriented X3, CN II-XII intact Course Course Narrative: 61-year-old female with shortness of breath was acutely this morning, she has markedly diminished air movement, with expiratory wheezes and prolonged expiration phase, she appears have a COPD exacerbation given cancer malignancy concern is for PE as well given acute onset hypoxia, plan for CCA PE to evaluate for PE, duonebs and steroids ordered as well. - Reevaluation(s) Reevaluation #1: Evidence of new bronchus intermedius's collapse, also patient has evidence of pneumonia with white count 16,000, tachycardic is septic, does not meet severe sepsis criteria or septic shock, was given fluids, broad-spectrum antibiotics to cover for HCAP associated pneumonia, plan is for admission to hospitalist service, the patient was admitted to Dr. Guillermo Time: 17:30 Vital Signs Temperature 98.2 F 03/05/17 13:58 Pulse Rate 105 03/05/17 13:58 Respiratory Rate 24 03/05/17 13:58 Blood Pressure 152/82 03/05/17 13:58 O2 Sat by Pulse Oximetry 93 03/05/17 13:58 Temperature 98 F 03/05/17 20:25 Pulse Rate 104 03/05/17 20:25 Respiratory Rate 22 03/05/17 20:25 Blood Pressure 124/66 03/05/17 20:25 O2 Sat by Pulse Oximetry 97 03/05/17 20:25 Oxygen Delivery Oxygen Delivery Nasal Cannula Shortness of Breath/Dyspnea - Differential Diagnosis Likely: acute exacerbation of chronic obstructive airways disease, congestive heart failure, pneumonia, pulmonary embolism - Medical Records Medical records reviewed: Yes I reviewed the patient's medical records. - Lab Data Lab results reviewed: Yes I reviewed the patient's lab results. Result diagrams: 03/05/17 14:31 03/05/17 14:31 Lab Results 03/05/17 03/05/17 03/05/17 Range/Units 14:31 14:31 14:31 WBC 16.0 H (4.3-11.1) K/mcL RBC 3.93 (3.82-4.97) M/mcL Hgb 11.3 L (11.5-15.4) g/dL Hct 36.9 (35.3-44.9) % MCV 93.9 (83.0-100.0) fL MCH 28.8 (28.0-33.3) pg MCHC 30.6 L (31.6-35.5) g/dL RDW 13.8 (11.5-14.5) % Plt Count 319 (140-400) K/mcL MPV 9.1 L (9.4-12.4) fL Immature Gran % 0.5 (0-4) % Seg Neutrophils % 78.8 % Lymphocytes % 16.0 % Monocytes % 4.5 % Eosinophils % 0.1 % Basophils % 0.1 % Neutrophils # 12.6 H (1.6-8.9) K/mcL Lymphocytes # 2.6 (0.6-4.6) K/mcL Monocytes # 0.7 (0.0-1.3) K/mcL Eosinophils # 0.0 (0.0-0.6) K/mcL Basophils # 0.0 (0.0-0.2) K/mcL Sodium 142 (136-145) mEq/L Potassium 3.2 L (3.5-5.1) mEq/L Chloride 107 (98-107) mEq/L Carbon Dioxide 29 (23-29) mEq/L BUN 7 L (8-23) mg/dL Creatinine 0.56 L (0.60-1.20) mg/dL Est GFR ( Amer) > 60 (> 60) Est GFR (Non-Af Amer) > 60 (> 60) BUN/Creatinine Ratio 13 (6-26) Glucose 99 (70-105) mg/dL Calculated Osmolality 292 (280-300) Lactic Acid 1.1 (0.5-2.2) mmol/L Calcium 8.7 (8.6-10.3) mg/dL Troponin I (< 0.04) ng/mL B-Natriuretic Peptide (Less than 100) pg/mL 03/05/17 03/05/17 Range/Units 14:31 14:31 WBC (4.3-11.1) K/mcL RBC (3.82-4.97) M/mcL Hgb (11.5-15.4) g/dL Hct (35.3-44.9) % MCV (83.0-100.0) fL MCH (28.0-33.3) pg MCHC (31.6-35.5) g/dL RDW (11.5-14.5) % Plt Count (140-400) K/mcL MPV (9.4-12.4) fL Immature Gran % (0-4) % Seg Neutrophils % % Lymphocytes % % Monocytes % % Eosinophils % % Basophils % % Neutrophils # (1.6-8.9) K/mcL Lymphocytes # (0.6-4.6) K/mcL Monocytes # (0.0-1.3) K/mcL Eosinophils # (0.0-0.6) K/mcL Basophils # (0.0-0.2) K/mcL Sodium (136-145) mEq/L Potassium (3.5-5.1) mEq/L Chloride (98-107) mEq/L Carbon Dioxide (23-29) mEq/L BUN (8-23) mg/dL Creatinine (0.60-1.20) mg/dL Est GFR ( Amer) (> 60) Est GFR (Non-Af Amer) (> 60) BUN/Creatinine Ratio (6-26) Glucose (70-105) mg/dL Calculated Osmolality (280-300) Lactic Acid (0.5-2.2) mmol/L Calcium (8.6-10.3) mg/dL Troponin I < 0.03 (< 0.04) ng/mL B-Natriuretic Peptide 54 (Less than 100) pg/mL - Radiology Data Radiology results reviewed: Yes I reviewed the patient's radiology results. Chest X-Ray 03/05/17 14:00 IMPRESSION: COPD. New, patchy right lower lung airspace opacity may reflect pneumonia in the correct clinical setting. D/ / 03/05/2017 15:10:05 Vishal Burris MD / ang Interpreting Provider: Vishla Burris MD Chest X-Ray 03/05/17 14:00 IMPRESSION: COPD. New, patchy right lower lung airspace opacity may reflect pneumonia in the correct clinical setting. D/ / 03/05/2017 15:10:05 Vishal Burris MD / ang Interpreting Provider: Vishal Burris MD Chest CTA 03/05/17 14:34 IMPRESSION: Enlargement of the right hilar mass with new complete obstruction of the bronchus intermedius and postobstructive bronchiolitis. Left lower lobe bronchiolitis is also likely infectious. New sclerotic lesion in the left 6th rib concerning for bone metastasis. Subacute healing bilateral rib fractures. No evidence of pulmonary embolus. D/ / 03/05/2017 16:14:56 Jose Alfredo Aguiar MD / zaid Interpreting Provider: Jose Alfredo Aguiar MD - EKG Data EKG attestation: Yes I reviewed and interpreted this EKG. EKG shows normal: Reports: sinus rhythm (10 3 bpm VA 163 QRS 82 QTC [address] segment elevations or depressions.) Attestation Statement - Attestation Attestation: I examined this patient and my medical decision-making was reviewed with the Resident Physician. I agree with the documented findings, disposition and treatment plan as described except to the extent set forth below. 61 yo F presents with concerns of chest pain and shortness of breath. Pt has a history of mediastinal mass which metastasis. Pt states symptoms started this morning, they have resolved with observation in the ED. CT chest shows mass causing obstruction to bronchus which has likely caused post-obstructive bronchiolitis. Pt started on Abx in the ED and pt will be admitted to the hospital for futher care and evaluation.
[2017-03-05 14:59] LABS: BUN/Creatinine Ratio 13 (6-26); Blood Urea Nitrogen 7 mg/dL (8-23); Calcium 8.7 mg/dL (8.6-10.3); Carbon Dioxide 29 mEq/L (23-29); Chloride 107 mEq/L (98-107); Glucose 99 mg/dL (70-105); Osmolality,Calculated 292 (280-300); Potassium 3.2 mEq/L (3.5-5.1); Sodium 142 mEq/L (136-145); eGFR For African Americans > 60 (> 60); eGFR For Non-African Americans > 60 (> 60)
[2017-03-05] MEDS ORDERED: Ondansetron 4 MG/2 ML VIAL IVP ONE (15:04)
[2017-03-05] MEDS ORDERED: *HR* Morphine 2 MG/ML SYRINGE IVP ONE (15:04)
[2017-03-05] MEDS ORDERED: Levofloxacin 750 MG/150 ML 750 MG/150 ML BAG IVPB ONE (15:15)
[2017-03-05] MEDS ORDERED: Piperacillin/Tazobactam 3.375 GM in D5% in Water (Mini-Bag+) 100 ML IVPB ONE (15:15)
[2017-03-05] MEDS ORDERED: Vancomycin 1,000 MG in D5% in Water 250 ML IVPB ONE (15:15)
[2017-03-05] MEDS ORDERED: Piperacillin/Tazobactam 3.375 GM in Water for inj. (sterile) 20 ML IVP ONE (17:41)
[2017-03-05] MEDS ORDERED: Naloxone 0.4 MG/ML INJ IVP PRN (18:28)
[2017-03-05] MEDS ORDERED: *HR* Morphine 2 MG/ML SYRINGE IVP PRN (18:28)
[2017-03-05] MEDS ORDERED: 0.9 % Sodium Chloride 1,000 ML IVC SCH (18:30)
[2017-03-05] MEDS ORDERED: Ondansetron 4 MG/2 ML VIAL IVP PRN (18:34)
[2017-03-05] MEDS ORDERED: Ipratropium/Albuterol Neb 3 ML IH PRN (18:38)
--- NOTE | 2017-03-05 19:06 | Internal Med History&Physical ---
Addendum entered and electronically signed by Kelly Gonzalez 03/05/17 22:03: check resp viral panel, continue levaquin Original Note: <Kelly Gonzalez - Last Filed: 03/05/17 18:44> Date of Encounter: 03/05/17 Time of Encounter: 18:45 Assessment and Plan (1) Acute exacerbation of chronic obstructive airways disease Current visit: Yes Status: Acute Solu-Medrol Duo nebs O2 to maintain sats greater than 80% (2) Hypertension Current visit: No Status: Chronic Continue home meds Qualifiers: Hypertension type: essential hypertension Qualified Code(s): I10 - Essential (primary) hypertension (3) Shortness of breath Current visit: No Status: Acute (4) Healthcare-associated pneumonia Current visit: No Status: Resolved Was given Levaquin and Zosyn and vancomycin in the emergency room Continue Zosyn and vancomycin with pharmacological dosing (5) Hypokalemia Current visit: Yes Status: Acute Replace and recheck (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 Keenan is a 61 year old female who awoke this morning with shortness of breath and continue to get worse throughout the morning. She was scheduled for chemotherapy treatment #2 today from a series of 3 and called the clinic to tell them how she felt. They told her to come to the emergency room for evaluation. She states that her chemotherapy treatment are not on schedule because she has been so sick over the past month or so. She had a treatment yesterday was scheduled for one today and then another tomorrow. She is a history of mediastinal mass positive and is positive for stage IV lung cancer of the right main bronchus small cell type. She has history significant for COPD and tobacco abuse, quit smoking in October. She denied any fevers, chills, chest pain, hemoptysis, dizziness, sputum production. nausea, vomiting, or sick contacts. She states she has poor oral intake and is generally feeling run down. She has lost 15-20 pounds. She has no changes in her bowel movements and is voiding without any difficulty. She does utilize 2 L nasal. CTA did show a new bronchus intermedius collapse. Her white count is 16 and she is tachycardic. She was given Levaquin and Zosyn and vancomycin as well as DuoNeb and Solu-Medrol in the ER. She is lying in a stretcher in the ER waiting for bed placement. She and her have no questions at this time. Past Med Surg Social Fam HX - Past Medical History Medical history: cancer, COPD, hypertension Psychiatric history: anxiety, depression - Past Surgical History Surgical History: hysterectomy (Partial) - Social History Smoking Status: Former smoker Smokeless Tobacco Status: No Alcohol use: none Drug use: none Current living situation: Home, With Family Activity Level: Independent ambulation - Family History Sister Family Member Ethnicity: Non- Living Status: Still Living Hx Family Cardiac Disorders: Yes (HTN) Hx Family Cancer: Yes (cervical) Mother Family Member Ethnicity: Non- Living Status: Hx Family Cardiac Disorders: Yes (HTN) Hx Family Respiratory Disorders: Yes (COPD) Father Adopted: No Family Member Ethnicity: Non- Living Status: Hx Family Cardiac Disorders: Yes (CHF, CAD, CT) Hx Family Respiratory Disorders: Yes (mother copd) Hx Family Cancer: No Hx Family GI Disorders: No Hx Family Endocrine Disorder: No Hx Family Neuromuscular Disorders: No Hx Family Neurologic Disorders: No Hx Family HEENT Disorders: No Hx Family Autoimmune Disorders: No - Additional Family History Additional family history: Reviewed and noncontributory to this event Internal Medicine - H&P: Meds DULoxetine [Cymbalta] 30 mg PO HS 02/15/16 [History] Trazodone HCl 200 mg PO HS 02/15/16 [History] Albuterol Neb [Proventil Neb] 2.5 mg IH Q6H PRN 10/14/16 [History] Albuterol Sulfate [Albuterol Inhaler] 2 puff IH Q6H PRN 10/14/16 [History] Budesonide/Formoterol 160/4.5 [Symbicort 160/4.5] 2 puff IH BIDR 10/14/16 [ History] Oxygen 2 l NS AD 10/14/16 [History] Tiotropium [Spiriva] 18 mcg IH DAILY 10/14/16 [History] Ondansetron [Zofran ODT] 8 mg SL Q4HR PRN #20 tab.rapdis 11/20/16 [Rx] Dexamethasone [Decadron] 4 mg PO BID #30 tab 11/27/16 [Rx] Magic Mouthwash [Magic Mouthwash BLM] 10 ml PO QID PRN #240 ml 11/27/16 [Rx] LORazepam [Ativan] 0.5 mg PO BID #60 tablet 11/29/16 [Rx] Ascorbate Calcium [Vitamin C] 500 mg PO DAILY 12/14/16 [History] Polyethylene Glycol 3350 [MiraLAX] 17 gm PO DAILY PRN #30 powd.pack 12/22/16 [Rx ] Sennosides/Docusate Sodium [Senna-Docusate Sodium Tablet] 2 each PO BID PRN #60 tablet 12/22/16 [Rx] Calcium Carbonate/Vitamin D3 [Calcium 500 + Vit D Caplet] 2 each PO DAILY #60 tablet 12/26/16 [Rx] Cholecalciferol (D-3) [Vitamin D] 5,000 unit PO DAILY 02/02/17 [History] Melatonin [Melatin] 3 mg PO HS 02/02/17 [History] GuaiFENesin/Dextromethorphan [Mucinex DM] 1 each PO BID 02/19/17 [History] OxyCODONE Immed Rel [Roxicodone 10 MG] 10 mg PO TID #90 tab 02/19/17 [Rx] predniSONE [Prednisone] 10 mg PO DAILY #30 tab.ds.pk 02/19/17 [Rx] 3 Allergy/AdvReac Type Severity Reaction Status Date / Time No Known Allergies Allergy Verified 03/05/17 14:00 All Systems PM: A 10-system review of systems was performed and is negative for pertinent findings except as documented above in the HPI. - Constitutional Constitutional: anorexia, fatigue, weakness, weight loss, no chills, no fever(s) , no night sweats - EENT Eyes: no change in vision, no discharge, no pain, no photophobia Ears: no ear discharge, no ear pain, no tinnitus Nose, mouth and throat: no dysphagia, no nasal discharge, no neck pain, no sore throat - Cardiovascular Cardiovascular ROS IM: dyspnea on exertion, no chest pain, no diaphoresis, no dyspnea, no lightheadedness, no palpitations, no syncope - Respiratory Respiratory: dyspnea on exertion, wheezing, chest congestion, no cough, no dyspnea, no hemoptysis, no excessive phlegm production - Gastrointestinal Gastrointestinal: no abdominal pain, no diarrhea, no hematemesis, no hematochezia, no melena, no nausea, no vomiting - Genitourinary Genitourinary: no change in urinary stream, no dysuria, no flank pain, no hematuria - Musculoskeletal Musculoskeletal ROS IM: no numbness, no tingling - Integumentary Integumentary IM: no rash, no unusual bruising - Neurological Neurological ROS: no confusion, no convulsions, no focal weakness, no numbness, no tingling, no tremor(s) - Hematologic/Lymphatic Hematologic/Lymphatic: no easy bruising - Constitutional Vitals: Temp Pulse Resp BP Pulse Ox 98.2 F 110 18 140/81 95 03/05/17 13:58 03/05/17 17:30 03/05/17 17:30 03/05/17 17:30 03/05/17 17:30 General appearance: Present: A&O X 3, pleasant, no acute distress, underweight, loss of weight, answers questions appropriately - Head Head exam: Present: atraumatic, normocephalic - Eye Eye exam: Present: conjuntiva pink, sclera anicteric - Neck Neck exam general surgery: Present: supple, trachea midline. Absent: tenderness - Respiratory Respiratory exam: Present: decreased breath sounds, wheezes. Absent: accessory muscle use, rales, rhonchi - Cardiovascular Cardiovascular exam: Present: RRR, +S1, +S2, tachycardia. Absent: diastolic murmur, gallop, rubs, systolic murmur - GI/Abdominal GI/Abdominal exam: Present: normal bowel sounds, soft, no peritoneal signs. Absent: distended, tenderness - Extremities Exam Extremities exam: Present: warm, radial pulses palpable and symmetrical. Absent : calf tenderness, cyanotic, pedal edema - Neurological Exam Neurological exam: Present: alert, oriented X3, no focal deficits. Absent: pronater drift, facial droop, speech deficit - Skin Skin exam: Present: dry, intact, warm Additional comments: picc line Internal Med - H&P Results - Labs CBC & Chem 7: 03/05/17 14:31 03/05/17 14:31 Labs: Short CBC 03/05/17 Range/Units 14:31 WBC 16.0 H (4.3-11.1) K/mcL Hgb 11.3 L (11.5-15.4) g/dL Hct 36.9 (35.3-44.9) % Plt Count 319 (140-400) K/mcL Neutrophils # 12.6 H (1.6-8.9) K/mcL BMP 03/05/17 14:31 Sodium 142 Potassium 3.2 L Chloride 107 Carbon Dioxide 29 BUN 7 L Creatinine 0.56 L Glucose 99 Calcium 8.7 Cardiac Enzymes 03/05/17 Range/Units 14:31 Troponin I < 0.03 (< 0.04) ng/mL - Impressions ITS Impressions Chest X-Ray 03/05/17 14:00 IMPRESSION: COPD. New, patchy right lower lung airspace opacity may reflect pneumonia in the correct clinical setting. D/ / 03/05/2017 15:10:05 Vishal Burris MD / ang Interpreting Provider: Vishal Burris MD Chest CTA 03/05/17 14:34 IMPRESSION: Enlargement of the right hilar mass with new complete obstruction of the bronchus intermedius and postobstructive bronchiolitis. Left lower lobe bronchiolitis is also likely infectious. New sclerotic lesion in the left 6th rib concerning for bone metastasis. Subacute healing bilateral rib fractures. No evidence of pulmonary embolus. D/ / 03/05/2017 16:14:56 Jose Alfredo Aguiar MD / zaid Interpreting Provider: Jose Alfredo Aguiar MD <Sukhdev Sweeney - Last Filed: 03/06/17 01:23> Date of Encounter: 03/06/17 Internal Medicine - H&P: HPI History of present illness: Ms. Keenan is a 61 year old female All Systems PM: A 10-system review of systems was performed and is negative for pertinent findings except as documented above in the HPI. - Constitutional Vitals: Temp Pulse Resp BP Pulse Ox 98.7 F 110 20 117/71 91 03/06/17 00:14 03/06/17 00:14 03/06/17 00:14 03/06/17 00:14 03/06/17 00:14 Internal Med - H&P Results - Labs CBC & Chem 7: 03/05/17 14:31 03/05/17 14:31 - Attending Attestation I have seen and examined pt independently. I have discussed with [employer] FITTER Carlos regarding the management plan. Agree with the documentation.
[2017-03-05] MEDS ORDERED: Magic Mouthwash 10 ML UD Cup PO PRN (19:52)
[2017-03-05] MEDS ORDERED: Sennosides/Docusate Sodium TABLET PO PRN (19:52)
[2017-03-05] MEDS ORDERED: NON-FORMULARY MEDICATION 1 EACH EACH (Oxycodone Hcl 10 MG) PO SCH (21:00)
[2017-03-05] MEDS ORDERED: Potassium Citrate 10 MEQ TABLET.ER PO ONE (21:00)
[2017-03-05] MEDS: Budesonide/Formoterol 160/4.5 MDI IH SCH (22:51)
[2017-03-05] MEDS: Ipratropium/Albuterol Neb 3 ML IH SCH (22:51)
[2017-03-05] MEDS: methylPREDNISolone 125 MG/2 ML VIAL IVP SCH (23:03)
[2017-03-05] MEDS: *HR* LORazepam 0.5 MG TABLET PO SCH (23:04)
[2017-03-05] MEDS: GuaiFENesin/Dextromethorphan TABLET PO SCH (23:04)
[2017-03-05] MEDS: traZODone 50 MG TABLET PO SCH (23:05)
[2017-03-05] MEDS: Melatonin 3 MG TABLET PO SCH (23:05)
[2017-03-06] MEDS: Piperacillin/Tazobactam 3.375 GM/200 ML BAG IVPB SCH ×4 (01:20→23:43)
[2017-03-06] MEDS: Ipratropium/Albuterol Neb 3 ML IH SCH ×6 (04:20→23:19)
[2017-03-06] MEDS ORDERED: Vancomycin 500 MG in D5% in Water (Mini-Bag+) 100 ML IVPB SCH (05:00)
[2017-03-06] MEDS ORDERED: Vancomycin 500 MG in 0.9 % Sodium Chloride Mini Bag 100 ML IVPB SCH ×2 (06:00→18:00)
[2017-03-06] MEDS: methylPREDNISolone 125 MG/2 ML VIAL IVP SCH (06:16)
[2017-03-06 06:30] LABS: Hematocrit 33.5 % (35.3-44.9); Hemoglobin 10.2 g/dL (11.5-15.4); Immature Granulocytes % 0.4 % (0-4); Lymphocytes # 0.4 K/mcL (0.6-4.6); Lymphocytes % 6.5 %; Mean Corpuscular HGB Conc 30.4 g/dL (31.6-35.5); Mean Corpuscular Volume 95.2 fL (83.0-100.0); Mean Platelet Volume 9.4 fL (9.4-12.4); Monocytes # 0.1 K/mcL (0.0-1.3); Monocytes % 1.3 %; Platelet Count 268 K/mcL (140-400); Red Blood Count 3.52 M/mcL (3.82-4.97); Segmented Neutrophils % 91.8 %
[2017-03-06 06:38] LABS: Prothrombin Time 11.2 Seconds (9.4-12.1)
[2017-03-06 06:41] LABS: Activated Partial Thrombo Time 23.5 Seconds (26.0-36.0)
[2017-03-06 06:56] LABS: BUN/Creatinine Ratio 17 (6-26); Blood Urea Nitrogen 9 mg/dL (8-23); Calcium 8.3 mg/dL (8.6-10.3); Carbon Dioxide 30 mEq/L (23-29); Chloride 111 mEq/L (98-107); Glucose 132 mg/dL (70-105); Magnesium 1.9 mg/dL (1.6-2.6); Osmolality,Calculated 297 (280-300); Phosphorous 2.6 mg/dL (2.7-4.5); Potassium 4.4 mEq/L (3.5-5.1); Sodium 143 mEq/L (136-145); eGFR For African Americans > 60 (> 60); eGFR For Non-African Americans > 60 (> 60)
[2017-03-06 08:03] LABS: Adenovirus Not Detected (Not Detect); Bordetella Pertussis Not Detected (Not Detect); Chlamydophila pneumoniae Not Detected (Not Detect); Coronavirus 229E Not Detected (Not Detect); Coronavirus HKU1 Not Detected (Not Detect); Coronavirus NL63 Not Detected (Not Detect); Coronavirus OC43 Not Detected (Not Detect); Human Metapneumovirus Not Detected (Not Detect); Human Rhinovirus/Enterovirus Not Detected (Not Detect); Influenza A Subtype 2009 H1 Not Detected (Not Detect); Influenza A Untypeable Not Detected (Not Detect); Influenza B Not Detected (Not Detect); Mycoplasma pneumoniae Not Detected (Not Detect); Parainfluenza Virus 1 Not Detected (Not Detect); Parainfluenza Virus 2 Not Detected (Not Detect); Parainfluenza Virus 3 Not Detected (Not Detect); Parainfluenza Virus 4 Not Detected (Not Detect); Respiratory Syncytial Virus Not Detected (Not Detect)
[2017-03-06] MEDS ORDERED: Tiotropium 18 MCG inhalation IH SCH (09:00)
[2017-03-06] MEDS: Budesonide/Formoterol 160/4.5 MDI IH SCH ×2 (10:02→19:46)
[2017-03-06] MEDS: Ascorbic Acid 500 MG TABLET PO SCH (10:08)
[2017-03-06] MEDS: *HR* LORazepam 0.5 MG TABLET PO SCH ×2 (10:08→20:02)
[2017-03-06] MEDS: Cholecalciferol (D-3) 1,000 UNIT TABLET PO SCH (10:09)
[2017-03-06] MEDS: Levofloxacin 750 MG/150 ML 750 MG/150 ML BAG IVPB SCH (10:09)
[2017-03-06] MEDS: GuaiFENesin/Dextromethorphan TABLET PO SCH ×2 (10:09→20:02)
--- NOTE | 2017-03-06 11:40 | Electrocardiograph Report ---
[place] [id number] Test Date: 2017-03-05 Pat Name: Domi Keenan Department: 104 Room: [id number] Gender: F [employer] Teacher: YUMIKO : 1955 Requested By: Ayan Linares Order Number: [id number] Reading MD: Tj Singh MD Measurements Intervals [place] Rate: 103 P: 73 [place]: 163 QRS: 67 QRSD: 82 T: 85 QT: 316 QTc: 376 Interpretive Statements SINUS TACHYCARDIA BASELINE ARTIFACT Electronically Signed On 03-06-2017 11:38:49 EST by Tj Singh MD
[2017-03-06] MEDS: Ibuprofen 400 MG TABLET PO PRN (12:27)
--- NOTE | 2017-03-06 17:00 | Oncology Inp Consult Note ---
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 poon and etoposide, cycle #6 status post day 1 hospitalized prior to day 2 of chemotherapy with worsening shortness of breath acute in onset. She has baseline COPD on home oxygen with minimal shortness of breath. CT imaging showing slight increase in hilar adenopathy and collapse bronchiolitis postobstructive changes, on antibiotics with vancomycin and Zosyn. She is not neutropenic afebrile. She is symptomatically improved, continue treatment for ac COPD exacerbation. Her treatment is rescheduled for next week to complete day 2 and day 3 of chemotherapy. Plan was reviewed with patient bedside. Outpt f/u with chemotherapy once d/charla. Discussed with medicine attending. - Data of Consult Requesting Physician: Juliano Pepe DO Primary Care Provider: Ron Ward MD - Consult Narrative Reason for consult: lungcancer on chemotherapy History of present illness: Ms. Keenan is a 61 year old female with medical history significant as noted above, COPD, home oxygen dependence, diagnosis of small cell lung cancer, extensive stage with liver metastatic disease, on palliative chemotherapy with carboplatin and etoposide with a good response of lymphadenopathy, liver lesions in interim CT imaging, patient recently received her day 1 off carboplatin and etoposide on 03/04 2017. Prior to receiving day 2 of chemotherapy on 03/05 2017 she called in with shortness of breath chest discomfort patient was recommended to go to the emergency room where she completed a CT angiogram that showed enlargement of the right hilar mass with new complete obstruction of the bronchus intermedius and postobstructive bronchiolitis, bronchioliitis, sclerotic lesion in the left 6th rib healing bilateral rib fractures. No evidence of pulmonary embolus. She started on antibiotics vancomycin, Zosyn and treatment for COPD exacerbation. Patient relatively looks well today on exam. She denies any pain or cough is under control and shortness of breath at rest. Past Med Surg Social Fam HX - Past Medical History Medical history: cancer, COPD, hypertension Psychiatric history: anxiety, depression - Past Surgical History Surgical History: hysterectomy (Partial) - Social History Smoking Status: Never smoker Smokeless Tobacco Status: No Alcohol use: none Drug use: none - Family History Sister Family Member Ethnicity: Non- Living Status: Still Living Hx Family Cardiac Disorders: Yes (HTN) Hx Family Cancer: Yes (cervical) Mother Family Member Ethnicity: Non- Living Status: Hx Family Cardiac Disorders: Yes (HTN) Hx Family Respiratory Disorders: Yes (COPD) Father Adopted: No Family Member Ethnicity: Non- Living Status: Hx Family Cardiac Disorders: Yes (CHF, CAD, VA) Hx Family Respiratory Disorders: Yes (mother copd) Hx Family Cancer: No Hx Family GI Disorders: No Hx Family Endocrine Disorder: No Hx Family Neuromuscular Disorders: No Hx Family Neurologic Disorders: No Hx Family HEENT Disorders: No Hx Family Autoimmune Disorders: No Medications and Allergies DULoxetine [Cymbalta] 30 mg PO HS 02/15/16 [History] Trazodone HCl 200 mg PO HS 02/15/16 [History] Albuterol Neb [Proventil Neb] 2.5 mg IH Q6H PRN 10/14/16 [History] Albuterol Sulfate [Albuterol Inhaler] 2 puff IH Q6H PRN 10/14/16 [History] Budesonide/Formoterol 160/4.5 [Symbicort 160/4.5] 2 puff IH BIDR 10/14/16 [ History] Oxygen 2 l NS AD 10/14/16 [History] Tiotropium [Spiriva] 18 mcg IH DAILY 10/14/16 [History] Ondansetron [Zofran ODT] 8 mg SL Q4HR PRN #20 tab.rapdis 11/20/16 [Rx] Dexamethasone [Decadron] 4 mg PO BID #30 tab 11/27/16 [Rx] Magic Mouthwash [Magic Mouthwash BLM] 10 ml PO QID PRN #240 ml 11/27/16 [Rx] LORazepam [Ativan] 0.5 mg PO BID #60 tablet 11/29/16 [Rx] Ascorbate Calcium [Vitamin C] 500 mg PO DAILY 12/14/16 [History] Polyethylene Glycol 3350 [MiraLAX] 17 gm PO DAILY PRN #30 powd.pack 12/22/16 [Rx ] Sennosides/Docusate Sodium [Senna-Docusate Sodium Tablet] 2 each PO BID PRN #60 tablet 12/22/16 [Rx] Calcium Carbonate/Vitamin D3 [Calcium 500 + Vit D Caplet] 2 each PO DAILY #60 tablet 12/26/16 [Rx] Cholecalciferol (D-3) [Vitamin D] 5,000 unit PO DAILY 02/02/17 [History] Melatonin [Melatin] 3 mg PO HS 02/02/17 [History] GuaiFENesin/Dextromethorphan [Mucinex DM] 1 each PO BID 02/19/17 [History] OxyCODONE Immed Rel [Roxicodone 10 MG] 10 mg PO TID #90 tab 02/19/17 [Rx] predniSONE [Prednisone] 10 mg PO DAILY #30 tab.ds.pk 02/19/17 [Rx] 3 Allergy/AdvReac Type Severity Reaction Status Date / Time No Known Allergies Allergy Verified 03/05/17 14:00 Review of systems: as in hpi Oncology - Exam - Constitutional Vitals: Temp Pulse Resp BP Pulse Ox 98.2 F 98 14 129/78 96 03/06/17 14:39 03/06/17 14:39 03/06/17 14:39 03/06/17 14:39 03/06/17 14:39 General appearance: mild distress - Head Head exam: Present: atraumatic, normal inspection - Eye Eye exam: Present: sclera anicteric - ENT ENT exam: Present: mucous membranes moist - Respiratory Respiratory exam: Present: wheezes - Cardiovascular Cardiovascular exam: Present: +S1, +S2 - GI/Abdominal GI/Abdominal exam: Present: normal bowel sounds, soft - Extremities Exam Extremities exam: Present: normal inspection - Neurological Exam Neurological exam: Present: alert, CN II-XII intact, oriented X3 Oncology - Results Labs: Short CBC 03/06/17 Range/Units 06:14 WBC 5.4 D (4.3-11.1) K/mcL Hgb 10.2 L (11.5-15.4) g/dL Hct 33.5 L (35.3-44.9) % Plt Count 268 (140-400) K/mcL Neutrophils # 5.0 (1.6-8.9) K/mcL BMP 03/06/17 06:14 Sodium 143 Potassium 4.4 D Chloride 111 H Carbon Dioxide 30 H BUN 9 Creatinine 0.53 L Glucose 132 H Calcium 8.3 L Consult Discharge Plan - Plan Referrals: Ron Ward MD [Primary Care Provider] -
--- NOTE | 2017-03-06 17:14 | Internal Med Progress Note ---
<Edouard Post - Last Filed: 03/06/17 17:11> Date of Encounter: 03/06/17 Time of Encounter: 09:30 - Assessment and plan (1) Acute exacerbation of chronic obstructive airways disease Current Visit: Yes Status: Acute Assessment and plan: - Likely secondary to healthcare acquired pneumonia as demonstrated on chest x- ray in emergency department showing right lower lobe consolidation - Admission in January 2017 this facility - White blood cell count of 16.0 with left shift on admission, currently WNL - As been afebrile, however has been tachycardic during this admission - Flu and respiratory panel negative - Blood cultures pending Plan - Scheduled dual nebs every 4 hours, continue home inhalers of Symbicort - Decrease steroids to 40 mg of prednisone daily - Treatment of underlying pneumonia as below - Supplemental oxygen as needed (2) Healthcare-associated pneumonia Current Visit: Yes Status: Acute Assessment and plan: - Above for COPD exacerbation - Hospitalization in January - As demonstrated on chest x-ray in emergency department - Blood cultures pending Plan - Continue Vancomycin, Zosyn, Levaquin (3) Hilar mass Current Visit: Yes Status: Acute Assessment and plan: Per management as outpatient Consults oncology (4) Smoking Current Visit: Yes Status: Resolved Assessment and plan: Patient has been tobacco free since October when she was diagnosed with lung cancer She was congratulated and encouraged to keep up good work (5) Acute and chronic respiratory failure Current Visit: Yes Status: Resolved Assessment and plan: Resolved - Was hypoxic on presentation - Currently tolerating home oxygen requirement of 2 L Qualifiers: Respiratory failure complication: hypoxia Qualified Code(s): J96.21 - Acute and chronic respiratory failure with hypoxia (6) Sepsis Current Visit: Yes Status: Resolved Assessment and plan: - no Longer meeting sepsis criteria secondary to healthcare associated pneumonia - Afebrile, no white count, respirations within normal limits - Further management as above for healthcare associated pneumonia Qualifiers: Sepsis type: sepsis due to unspecified organism Qualified Code(s): A41.9 - Sepsis, unspecified organism (7) DVT prophylaxis Current Visit: Yes Status: Acute Assessment and plan: Heparin 5000 units every q12 - Time Spent With Patient 25 - 35 minutes - Subjective Interval history: She was seen and examined at bedside this morning. She states she is feeling much better compared to admission. Her shortness of breath has resolved but she still experiencing a productive cough with thick green sputum which is near her baseline. She is oxygen dependent at home requiring 2 L. She states she has been diagnosed with stage IV lung cancer, unsure on location but received her first dose of chemotherapy on Saturday. Denies any symptoms of extremity swelling, orthopnea, PND. No wheezing, no fevers or chills. - Constitutional Vitals: Temp Pulse Resp BP Pulse Ox 98.2 F 98 14 129/78 96 03/06/17 14:39 03/06/17 14:39 03/06/17 14:39 03/06/17 14:39 03/06/17 14:39 General appearance: Present: A&O X 3, pleasant, no acute distress, underweight, loss of weight, answers questions appropriately Exam: Gen.: Vitals noted. No acute distress. AAOx3 HEENT: PERRL/EOMI, oropharynx clear, Normocephalic, atraumatic Cardiac: RRR, no murmur, +S1/S2 Pulmonary: Bi basilar Rales, mild wheezing in lower lobes. equal chest expansion Abdomen: soft, nontender, BS noted, no guarding MSK: ROM intact, no joint swelling noted Extremities: no BLE edema, nontender calf, no cyanosis or clubbing Neuro: A&Ox3, moves all extremities, no focal deficits Psych: Appropriate mood and behavior Internal Medicine: Result - Labs CBC & Chem 7: 03/06/17 06:14 03/06/17 06:14 Labs: Short CBC 03/06/17 Range/Units 06:14 WBC 5.4 D (4.3-11.1) K/mcL Hgb 10.2 L (11.5-15.4) g/dL Hct 33.5 L (35.3-44.9) % Plt Count 268 (140-400) K/mcL Neutrophils # 5.0 (1.6-8.9) K/mcL BMP 03/06/17 06:14 Sodium 143 Potassium 4.4 D Chloride 111 H Carbon Dioxide 30 H BUN 9 Creatinine 0.53 L Glucose 132 H Calcium 8.3 L - ABG Interpretation ABG results: PT/INR, D-dimer PT 11.2 Seconds (9.4-12.1) 03/06/17 06:14 Consult Discharge Plan - Plan Referrals: Ron Ward MD [Primary Care Provider] - <Juliano Pepe - Last Filed: 03/06/17 19:11> Date of Encounter: 03/06/17 - Assessment and plan (1) Acute and chronic respiratory failure ([id number]) Current Visit: No Status: Acute Qualifiers: Respiratory failure complication: hypoxia Qualified Code(s): J96.21 - Acute and chronic respiratory failure with hypoxia (2) Acute exacerbation of chronic obstructive airways disease Current Visit: No Status: Acute (3) Sepsis Current Visit: Yes Status: Resolved Qualifiers: Sepsis type: sepsis due to unspecified organism Qualified Code(s): A41.9 - Sepsis, unspecified organism (4) Pneumonia Current Visit: Yes Status: Suspected Qualifiers: Pneumonia type: due to other aerobic Gram-negative bacteria Laterality: right Lung location: middle lobe of lung Qualified Code(s): J15.6 - Pneumonia due to other Gram-negative bacteria (5) Hilar mass Current Visit: Yes Status: Acute (6) Lung cancer Current Visit: Yes Status: Chronic Qualifiers: Laterality: right Lung location: hilum of lung Qualified Code(s): C34.01 - Malignant neoplasm of right main bronchus - Constitutional Vitals: Temp Pulse Resp BP Pulse Ox 98.2 F 98 20 129/78 96 03/06/17 14:39 03/06/17 14:39 03/06/17 15:35 03/06/17 14:39 03/06/17 15:35 Internal Medicine: Result - Labs CBC & Chem 7: 03/06/17 06:14 03/06/17 06:14 Labs: Short CBC 03/06/17 Range/Units 06:14 WBC 5.4 D (4.3-11.1) K/mcL Hgb 10.2 L (11.5-15.4) g/dL Hct 33.5 L (35.3-44.9) % Plt Count 268 (140-400) K/mcL Neutrophils # 5.0 (1.6-8.9) K/mcL BMP 03/06/17 06:14 Sodium 143 Potassium 4.4 D Chloride 111 H Carbon Dioxide 30 H BUN 9 Creatinine 0.53 L Glucose 132 H Calcium 8.3 L - ABG Interpretation ABG results: PT/INR, D-dimer PT 11.2 Seconds (9.4-12.1) 03/06/17 06:14 - Attending Attestation I examined this patient and my medical decision-making was reviewed with the Resident Physician on 03/06/17. I agree with the documented findings, disposition and treatment plan as described except to the extent set forth below. Ms Goff is currently admitted for acute resp failure due to pneumonia. She remains moderate to high risk due to potential for worsening respiratory status. Ms Keeann is feeling a little better. She is coughing less. Tolerating IV abx. No fever or chills. No CP at this time. Exam Alert. Comfortable Mucus membranes dry Heart distant Rhonchi present bilaterally I/P 1. Resp failure 2. a fib Further diagnoses and plan as above.
[2017-03-06] MEDS: *HR* Heparin 5,000 UNIT/ML VIAL SQ SCH (17:42)
[2017-03-06] MEDS ORDERED: Vancomycin 750 MG in D5% in Water 250 ML IVPB SCH (19:00)
[2017-03-06] MEDS: Melatonin 3 MG TABLET PO SCH (20:02)
[2017-03-06] MEDS: traZODone 50 MG TABLET PO SCH (20:02)
[2017-03-07 03:50] LABS: Basophils % 0.1 %; Hematocrit 32.5 % (35.3-44.9); Hemoglobin 9.8 g/dL (11.5-15.4); Immature Granulocytes % 0.5 % (0-4); Immature Platelets 1.7 % (1.1-6.1); Lymphocytes # 2.3 K/mcL (0.6-4.6); Lymphocytes % 22.4 %; Mean Corpuscular HGB Conc 30.2 g/dL (31.6-35.5); Mean Corpuscular Volume 96.2 fL (83.0-100.0); Mean Platelet Volume 9.1 fL (9.4-12.4); Monocytes # 0.3 K/mcL (0.0-1.3); Monocytes % 3.4 %; Neutrophils # 7.4 K/mcL (1.6-8.9); Nucleated Red Blood Cells 0.2 /100 WBC (0); Platelet Count 274 K/mcL (140-400); Red Blood Count 3.38 M/mcL (3.82-4.97); Red Cell Distribution Width 13.9 % (11.5-14.5); Segmented Neutrophils % 73.6 %
[2017-03-07] MEDS: Ipratropium/Albuterol Neb 3 ML IH SCH ×6 (04:09→23:37)
[2017-03-07 04:29] LABS: BUN/Creatinine Ratio 16 (6-26); Blood Urea Nitrogen 9 mg/dL (8-23); Calcium 8.1 mg/dL (8.6-10.3); Carbon Dioxide 31 mEq/L (23-29); Chloride 111 mEq/L (98-107); Glucose 106 mg/dL (70-105); Osmolality,Calculated 297 (280-300); Potassium 3.7 mEq/L (3.5-5.1); Sodium 144 mEq/L (136-145); eGFR For African Americans > 60 (> 60); eGFR For Non-African Americans > 60 (> 60)
[2017-03-07] MEDS: *HR* Heparin 5,000 UNIT/ML VIAL SQ SCH ×2 (05:01→19:29)
[2017-03-07] MEDS: Budesonide/Formoterol 160/4.5 MDI IH SCH ×2 (07:37→19:49)
[2017-03-07] MEDS: Piperacillin/Tazobactam 3.375 GM/200 ML BAG IVPB SCH ×2 (09:27→17:00)
[2017-03-07] MEDS: Ascorbic Acid 500 MG TABLET PO SCH (09:28)
[2017-03-07] MEDS: Levofloxacin 750 MG/150 ML 750 MG/150 ML BAG IVPB SCH (09:28)
[2017-03-07] MEDS: Cholecalciferol (D-3) 1,000 UNIT TABLET PO SCH (09:28)
[2017-03-07] MEDS: GuaiFENesin/Dextromethorphan TABLET PO SCH ×2 (09:28→20:26)
[2017-03-07] MEDS: *HR* LORazepam 0.5 MG TABLET PO SCH ×2 (09:29→20:26)
[2017-03-07] MEDS: predniSONE 20 MG TABLET PO SCH (09:29)
[2017-03-07] MEDS ORDERED: Vancomycin 500 MG in 0.9 % Sodium Chloride Mini Bag 100 ML IVPB SCH (12:15)
[2017-03-07] MEDS ORDERED: Aminoglycoside Consult 1 EACH MC ONE (15:03)
[2017-03-07] MEDS: Ibuprofen 400 MG TABLET PO PRN (15:39)
--- NOTE | 2017-03-07 16:12 | Internal Med Progress Note ---
<Edouard Post - Last Filed: 03/07/17 16:09> Date of Encounter: 03/07/17 Time of Encounter: 11:05 - Assessment and plan (1) Acute exacerbation of chronic obstructive airways disease Current Visit: Yes Status: Acute Assessment and plan: - Likely secondary to healthcare acquired pneumonia as demonstrated on chest x- ray in emergency department showing right lower lobe consolidation - Admission in January 2017 this facility - White blood cell count of 16.0 with left shift on admission. WBC today of 10.1, mildly uptrending from 5.4 - Has been afebrile, however has been mildly tachycardic during this admission - Flu and respiratory panel negative - Blood cultures pending Plan - Scheduled duo nebs every 4 hours, continue home inhalers of Symbicort - Decrease steroids to 40 mg of prednisone daily - Treatment of underlying pneumonia as below - Supplemental oxygen as needed (2) Healthcare-associated pneumonia Current Visit: Yes Status: Acute Assessment and plan: - Above for COPD exacerbation - Hospitalization in January - As demonstrated on chest x-ray in emergency department - Blood cultures pending Plan - Continue Zosyn, Levaquin - Discontinue vancomycin today (3) Hilar mass Current Visit: Yes Status: Acute Assessment and plan: Per management as outpatient Consults oncology Plan to resume chemotherapy upon discharge (4) Smoking Current Visit: Yes Status: Resolved Assessment and plan: Patient has been tobacco free since October when she was diagnosed with lung cancer She was congratulated and encouraged to keep up good work (5) Acute and chronic respiratory failure Current Visit: Yes Status: Resolved Assessment and plan: Resolved - Was hypoxic on presentation - Currently tolerating home oxygen requirement of 2 L Qualifiers: Respiratory failure complication: hypoxia Qualified Code(s): J96.21 - Acute and chronic respiratory failure with hypoxia (6) Sepsis Current Visit: Yes Status: Resolved Assessment and plan: - no Longer meeting sepsis criteria secondary to healthcare associated pneumonia - Afebrile, no white count, respirations within normal limits - Further management as above for healthcare associated pneumonia Qualifiers: Sepsis type: sepsis due to unspecified organism Qualified Code(s): A41.9 - Sepsis, unspecified organism (7) DVT prophylaxis Current Visit: Yes Status: Acute Assessment and plan: Heparin 5000 units every q12 - Subjective Interval history: She was seen and examined at bedside this morning. She states she is feeling much better compared to admission. Her shortness of breath has resolved but she still experiencing a productive cough with thick green sputum which is near her baseline. She is oxygen dependent at home requiring 2 L, currently at baseline. No wheezing, no fevers or chills. - Constitutional Vitals: Temp Pulse Resp BP Pulse Ox 97.9 F 102 18 145/91 95 03/07/17 11:00 03/07/17 11:00 03/07/17 11:51 03/07/17 11:00 03/07/17 11:51 General appearance: Present: A&O X 3, pleasant, no acute distress, underweight, loss of weight, answers questions appropriately Exam: Gen.: Vitals noted. No acute distress. AAOx3 HEENT: PERRL/EOMI, oropharynx clear, Normocephalic, atraumatic Cardiac: RRR, no murmur, +S1/S2 Pulmonary: Rales in the lower left lobe. Mild Wheezes diffusely. equal chest expansion Abdomen: soft, nontender, BS noted, no guarding MSK: ROM intact, no joint swelling noted Extremities: no BLE edema, nontender calf, no cyanosis or clubbing Neuro: A&Ox3, moves all extremities, no focal deficits Psych: Appropriate mood and behavior Internal Medicine: Result - Labs CBC & Chem 7: 03/07/17 03:15 03/07/17 03:15 Labs: Short CBC 03/07/17 Range/Units 03:15 WBC 10.1 D (4.3-11.1) K/mcL Hgb 9.8 L (11.5-15.4) g/dL Hct 32.5 L (35.3-44.9) % Plt Count 274 (140-400) K/mcL Neutrophils # 7.4 (1.6-8.9) K/mcL BMP 03/07/17 03:15 Sodium 144 Potassium 3.7 Chloride 111 H Carbon Dioxide 31 H BUN 9 Creatinine 0.56 L Glucose 106 H Calcium 8.1 L - ABG Interpretation ABG results: PT/INR, D-dimer PT 11.2 Seconds (9.4-12.1) 03/06/17 06:14 Consult Discharge Plan - Plan Referrals: Ron aWrd MD [Primary Care Provider] - <Juliano Pepe - Last Filed: 03/07/17 19:54> Date of Encounter: 03/07/17 - Assessment and plan (1) Acute and chronic respiratory failure ([id number]) Current Visit: No Status: Acute Qualifiers: Respiratory failure complication: hypoxia Qualified Code(s): J96.21 - Acute and chronic respiratory failure with hypoxia (2) Acute exacerbation of chronic obstructive airways disease Current Visit: No Status: Acute (3) Sepsis Current Visit: Yes Status: Resolved Qualifiers: Sepsis type: sepsis due to unspecified organism Qualified Code(s): A41.9 - Sepsis, unspecified organism (4) Pneumonia Current Visit: Yes Status: Suspected Qualifiers: Pneumonia type: due to other aerobic Gram-negative bacteria Laterality: right Lung location: middle lobe of lung Qualified Code(s): J15.6 - Pneumonia due to other Gram-negative bacteria (5) Hilar mass Current Visit: Yes Status: Acute (6) Lung cancer Current Visit: Yes Status: Chronic Qualifiers: Laterality: right Lung location: hilum of lung Qualified Code(s): C34.01 - Malignant neoplasm of right main bronchus - Constitutional Vitals: Temp Pulse Resp BP Pulse Ox 98.8 F 111 17 148/79 99 03/07/17 19:40 03/07/17 19:40 03/07/17 19:40 03/07/17 19:40 03/07/17 19:40 Internal Medicine: Result - Labs CBC & Chem 7: 03/07/17 03:15 03/07/17 03:15 Labs: Short CBC 03/07/17 Range/Units 03:15 WBC 10.1 D (4.3-11.1) K/mcL Hgb 9.8 L (11.5-15.4) g/dL Hct 32.5 L (35.3-44.9) % Plt Count 274 (140-400) K/mcL Neutrophils # 7.4 (1.6-8.9) K/mcL BMP 03/07/17 03:15 Sodium 144 Potassium 3.7 Chloride 111 H Carbon Dioxide 31 H BUN 9 Creatinine 0.56 L Glucose 106 H Calcium 8.1 L - ABG Interpretation ABG results: PT/INR, D-dimer PT 11.2 Seconds (9.4-12.1) 03/06/17 06:14 - Attending Attestation I examined this patient and my medical decision-making was reviewed with the Resident Physician on 03/07/17. I agree with the documented findings, disposition and treatment plan as described except to the extent set forth below. Ms Keenan is currently admitted for pneumonia and lung cancer. She remains moderate to high risk due to potential for worsening respiratory status. Ms Keenan is feeling somewhat better but still dsypneic. She has no new issues. No fever. Exam Alert. Comfortable Heart distant Lungs with scattered rhonchi. Abd soft I/P 1. Pneumonia 2. Lung cancer
[2017-03-07] MEDS: Melatonin 3 MG TABLET PO SCH (20:26)
[2017-03-07] MEDS: traZODone 50 MG TABLET PO SCH (20:26)
[2017-03-08] MEDS: *HR* OxyCODONE Immed Rel 5 MG TABLET PO PRN ×2 (00:06→10:11)
[2017-03-08] MEDS: Piperacillin/Tazobactam 3.375 GM/200 ML BAG IVPB SCH ×2 (00:06→11:04)
[2017-03-08] MEDS: Ipratropium/Albuterol Neb 3 ML IH SCH ×3 (03:51→11:41)
[2017-03-08] MEDS: *HR* Heparin 5,000 UNIT/ML VIAL SQ SCH (06:04)
[2017-03-08 06:18] LABS: Basophils % 0.1 %; Eosinophils % 0.3 %; Hemoglobin 10.2 g/dL (11.5-15.4); Immature Granulocytes % 0.3 % (0-4); Lymphocytes # 2.5 K/mcL (0.6-4.6); Lymphocytes % 33.4 %; Mean Corpuscular HGB Conc 30.9 g/dL (31.6-35.5); Mean Corpuscular Hemoglobin 29.4 pg (28.0-33.3); Mean Corpuscular Volume 95.1 fL (83.0-100.0); Mean Platelet Volume 9.3 fL (9.4-12.4); Monocytes # 0.2 K/mcL (0.0-1.3); Monocytes % 2.5 %; Neutrophils # 4.8 K/mcL (1.6-8.9); Platelet Count 251 K/mcL (140-400); Red Blood Count 3.47 M/mcL (3.82-4.97); Segmented Neutrophils % 63.4 %
[2017-03-08 06:35] LABS: BUN/Creatinine Ratio 14 (6-26); Blood Urea Nitrogen 7 mg/dL (8-23); Calcium 8.2 mg/dL (8.6-10.3); Carbon Dioxide 34 mEq/L (23-29); Chloride 108 mEq/L (98-107); Glucose 81 mg/dL (70-105); Osmolality,Calculated 293 (280-300); Potassium 3.5 mEq/L (3.5-5.1); Sodium 143 mEq/L (136-145); eGFR For African Americans > 60 (> 60); eGFR For Non-African Americans > 60 (> 60)
[2017-03-08] MEDS: Budesonide/Formoterol 160/4.5 MDI IH SCH (07:50)
--- NOTE | 2017-03-08 08:41 | Discharge Summary ---
<SejalEdouard - Last Filed: 03/08/17 16:33> Date of Encounter: 03/08/17 Time of Encounter: 08:37 - Discharge Diagnosis (1) Acute exacerbation of chronic obstructive airways disease Priority: Secondary Status: Acute (2) Healthcare-associated pneumonia Priority: Primary Status: Acute (3) Hilar mass Priority: Secondary Status: Chronic (4) Acute and chronic respiratory failure Priority: Secondary Status: Resolved Qualifiers: Respiratory failure complication: hypoxia Qualified Code(s): J96.21 - Acute and chronic respiratory failure with hypoxia (5) Sepsis Priority: Secondary Status: Resolved Qualifiers: Sepsis type: sepsis due to unspecified organism Qualified Code(s): A41.9 - Sepsis, unspecified organism (6) DVT prophylaxis Priority: Secondary Status: Acute - Discharge Medications Prescriptions: Levofloxacin [Levaquin] 750 mg PO DAILY #3 tablet Metoprolol [Lopressor] 12.5 mg PO BID #30 tablet Home Medications: DULoxetine [Cymbalta] 30 mg PO HS 02/15/16 [History] Trazodone HCl 200 mg PO HS 02/15/16 [History] Albuterol Neb [Proventil Neb] 2.5 mg IH Q6H PRN 10/14/16 [History] Albuterol Sulfate [Albuterol Inhaler] 2 puff IH Q6H PRN 10/14/16 [History] Budesonide/Formoterol 160/4.5 [Symbicort 160/4.5] 2 puff IH BIDR 10/14/16 [ History] Oxygen 2 l NS AD 10/14/16 [History] Tiotropium [Spiriva] 18 mcg IH DAILY 10/14/16 [History] Ondansetron [Zofran ODT] 8 mg SL Q4HR PRN #20 tab.rapdis 11/20/16 [Rx] Dexamethasone [Decadron] 4 mg PO BID #30 tab 11/27/16 [Rx] Magic Mouthwash [Magic Mouthwash BLM] 10 ml PO QID PRN #240 ml 11/27/16 [Rx] LORazepam [Ativan] 0.5 mg PO BID #60 tablet 11/29/16 [Rx] Ascorbate Calcium [Vitamin C] 500 mg PO DAILY 12/14/16 [History] Polyethylene Glycol 3350 [MiraLAX] 17 gm PO DAILY PRN #30 powd.pack 12/22/16 [Rx ] Sennosides/Docusate Sodium [Senna-Docusate Sodium Tablet] 2 each PO BID PRN #60 tablet 12/22/16 [Rx] Calcium Carbonate/Vitamin D3 [Calcium 500 + Vit D Caplet] 2 each PO DAILY #60 tablet 12/26/16 [Rx] Cholecalciferol (D-3) [Vitamin D] 5,000 unit PO DAILY 02/02/17 [History] Melatonin [Melatin] 3 mg PO HS 02/02/17 [History] GuaiFENesin/Dextromethorphan [Mucinex Dm] 1 each PO BID 02/19/17 [History] OxyCODONE Immed Rel [Roxicodone 10 MG] 10 mg PO TID #90 tab 02/19/17 [Rx] predniSONE [Prednisone] 10 mg PO DAILY #30 tab.ds.pk 02/19/17 [Rx] Levofloxacin [Levaquin] 750 mg PO DAILY #3 tablet 03/08/17 [Rx] Metoprolol [Lopressor] 12.5 mg PO BID #30 tablet 03/08/17 [Rx] Allergies/Adverse Reactions: 3 Allergy/AdvReac Type Severity Reaction Status Date / Time No Known Allergies Allergy Verified 03/05/17 14:00 Date of admission: 03/05/17 19:34 Primary care physician: Ron Ward MD Consults: 03/05/17 23:31 Consult to Nutrition [CONS] Routine Comment: Consulting Provider: NUTRITION Reason for Dietary Consult: MST Score Consult to Professor Of Languages [CONS] Routine Reason for SW Consult: patient has [facility] home oxygen and [facility] 03/06/17 17:05 Consult to Oncology Hematology [CONS] Routine Consulting Provider: Linda Bird Reason for Consult: Lung cancer Time Notified: 17:05 Call Completed: Yes Discharging clinician: Edouard Post Anticipated date of discharge: 03/08/17 - Patient Status Disposition: Home, Self-Care Condition: Fair Functional capacity at discharge: independent ambulation Overall status at discharge: patient is back to baseline - Discharge Instructions Instructions: Metoprolol (By mouth), Levofloxacin (By mouth), Acute Respiratory Distress Syndrome (DC), Pneumonia (DC) Follow Up With: Ron Ward MD [Primary Care Provider] - 03/11/17 3:00 pm Additional Instructions: Please follow up with your oncologist after discharge for further management and take all medications as prescribed. We are sending an antibiotic, levaquin, for 3 more days and adding a heart medication, metoprolol to take twice per day. Continue [facility] and Home O2 through [facility], [place]. - Diet and Activity Activity: increase activity as tolerated, resume usual activities as tolerated Diet: advance to your usual diet Hospital course: Ms. Keenan is a 61 year old female who presented to the emergency department with a chief complaint of shortness of breath. She has a past medical history of hilar lung cancer stage IV as well as COPD. She states that she woke up on the morning of admission and felt acutely short of breath. She is oxygen dependent at home using 2 L. Denies any fevers or chills however did admit to a productive cough. On presentation, patient was noted to be tachycardic with a rate in the low 100s as well as mildly elevated blood pressure 152/82. She was tolerating 2 L nasal cannula in mid 90s. Labs were significant for an elevated WBC at 16.0 with left shift as well as hypokalemia 3.2. No lactic acidosis. Respiratory panel was negative. Chest x-ray was concerning for a right lower lobe consolidation suggestive of pneumonia. He was admitted to hospital for further evaluation and management of hospital- acquired pneumonia. During course of hospital stay, patient gradually improved. She was treated with vancomycin, Zosyn, Levaquin as well as steroid therapy for her COPD. She tolerated these medications well and her breathing was much improved. She was De escalated to Zosyn and Levaquin on the second day. Day of discharge, patient was medically stable with vital signs within normal limits aside from mild tachycardia. Physical exam was benign. Her oncologist did see her inpatient and he recommended continuing her chemotherapy upon discharge. Leukocytosis resolved. Patient was at baseline oxygen requirements and will be sent home with a prescription for an additional 3 days of Levaquin as well as metoprolol for mild tachycardia. She was instructed take her medications as prescribed as well as to follow-up with her oncologist upon discharge. Her questions were answered - Time Spent with Patient Total time spent providing and/or coordinating discharge services: - Constitutional Vitals: Temp Pulse Resp BP Pulse Ox 98.4 F 102 18 126/80 97 03/08/17 06:25 03/08/17 06:25 03/08/17 07:52 03/08/17 06:25 03/08/17 07:52 General appearance: Present: A&O X 3, pleasant, no acute distress, underweight, loss of weight, answers questions appropriately Exam: Gen.: Vitals noted. No acute distress. AAOx3 HEENT: PERRL/EOMI, oropharynx clear, Normocephalic, atraumatic Neck: Supple. No adenopathy. Cardiac: RRR, no murmur, +S1/S2 Pulmonary: Very mild left lower lobe rales, otherwise CTA bilaterally, no wheezes, rales or rhonchi, equal chest expansion Abdomen: soft, nontender, BS noted, no guarding MSK: ROM intact, no joint swelling noted Extremities: no BLE edema, nontender calf, no cyanosis or clubbing Neuro: A&Ox3, moves all extremities, no focal deficits Psych: Appropriate mood and behavior <Juliano Pepe - Last Filed: 03/08/17 18:38> Date of Encounter: 03/08/17 - Discharge Diagnosis (1) Acute and chronic respiratory failure ([id number]) Priority: Primary Status: Resolved Qualifiers: Respiratory failure complication: hypoxia Qualified Code(s): J96.21 - Acute and chronic respiratory failure with hypoxia (2) Acute exacerbation of chronic obstructive airways disease Priority: Primary Status: Resolved (3) Sepsis Priority: Secondary Status: Resolved Qualifiers: Sepsis type: sepsis due to unspecified organism Qualified Code(s): A41.9 - Sepsis, unspecified organism (4) Pneumonia Priority: Secondary Status: Suspected Qualifiers: Pneumonia type: due to other aerobic Gram-negative bacteria Laterality: right Lung location: middle lobe of lung Qualified Code(s): J15.6 - Pneumonia due to other Gram-negative bacteria (5) Hilar mass Status: Chronic (6) Lung cancer Priority: Secondary Status: Chronic Qualifiers: Laterality: right Lung location: hilum of lung Qualified Code(s): C34.01 - Malignant neoplasm of right main bronchus Date of admission: 03/05/17 19:34 Primary care physician: Ron Ward MD Consults: 03/05/17 23:31 Consult to Nutrition [CONS] Routine Comment: Consulting Provider: NUTRITION Reason for Dietary Consult: MST Score Consult to Professor Of Languages [CONS] Routine Reason for SW Consult: patient has [facility] and [facility] 03/06/17 17:05 Consult to Oncology Hematology [CONS] Routine Consulting Provider: Linda Bird Reason for Consult: Lung cancer Time Notified: 17:05 Call Completed: Yes Hospital course: Ms. Keenan is a 61 year old female - Time Spent with Patient Total time spent providing and/or coordinating discharge services: 38min - Constitutional Vitals: Temp Pulse Resp BP Pulse Ox 98.5 F 100 14 133/89 96 03/08/17 10:41 03/08/17 10:41 03/08/17 11:41 03/08/17 10:41 03/08/17 11:41 - Attending Attestation I examined this patient and my medical decision-making was reviewed with the Resident Physician on 03/08/17. I agree with the documented findings, disposition and treatment plan as described except to the extent set forth below. Ms Keenan has been admitted for pneumonia and lung cancer. She has improved with IV abx. She is now afebrile and ready for discharge home on PO meds. Exam alert. Comfortable Mucus membranes dry Heart reg Rhonchi heard Plan D/C home today.
[2017-03-08 10:44] VITALS: BP 133/89
[2017-03-08] MEDS: Ascorbic Acid 500 MG TABLET PO SCH (11:03)
[2017-03-08] MEDS: *HR* LORazepam 0.5 MG TABLET PO SCH (11:03)
[2017-03-08] MEDS: predniSONE 20 MG TABLET PO SCH (11:03)
[2017-03-08] MEDS: Cholecalciferol (D-3) 1,000 UNIT TABLET PO SCH (11:03)
[2017-03-08] MEDS: GuaiFENesin/Dextromethorphan TABLET PO SCH (11:03)
--- NOTE | 2017-03-08 16:33 | Physician Discharge Referral ---
Home Health/Hosp Referral Info Transfer to: Home Health Provider in Charge Post Discharge: PCP - Diagnosis (1) Acute exacerbation of chronic obstructive airways disease Priority: Secondary Status: Acute (2) Healthcare-associated pneumonia Priority: Primary Status: Acute (3) Hilar mass Priority: Secondary Status: Chronic (4) Smoking Priority: Secondary Status: Resolved (5) Acute and chronic respiratory failure Priority: Secondary Status: Resolved (6) Sepsis Priority: Secondary Status: Resolved (7) DVT prophylaxis Priority: Secondary Status: Acute - Respiratory Orders Oxygen / L per min (2) Smoking Cessation: Smoking cessation has been advised. For more information, call the [place] [employer] Quit Line at 4-376-RXHYNOW. - Diet/Nutrition Diet/Nutrition Orders: Regular - Activity Activity Orders: Ambulate - Transfer Medications Prescriptions: Levofloxacin [Levaquin] 750 mg PO DAILY #3 tablet Metoprolol [Lopressor] 12.5 mg PO BID #30 tablet Home Medications: DULoxetine [Cymbalta] 30 mg PO HS 02/15/16 [History] Trazodone HCl 200 mg PO HS 02/15/16 [History] Albuterol Neb [Proventil Neb] 2.5 mg IH Q6H PRN 10/14/16 [History] Albuterol Sulfate [Albuterol Inhaler] 2 puff IH Q6H PRN 10/14/16 [History] Budesonide/Formoterol 160/4.5 [Symbicort 160/4.5] 2 puff IH BIDR 10/14/16 [ History] Oxygen 2 l NS AD 10/14/16 [History] Tiotropium [Spiriva] 18 mcg IH DAILY 10/14/16 [History] Ondansetron [Zofran ODT] 8 mg SL Q4HR PRN #20 tab.rapdis 11/20/16 [Rx] Dexamethasone [Decadron] 4 mg PO BID #30 tab 11/27/16 [Rx] Magic Mouthwash [Magic Mouthwash BLM] 10 ml PO QID PRN #240 ml 11/27/16 [Rx] LORazepam [Ativan] 0.5 mg PO BID #60 tablet 11/29/16 [Rx] Ascorbate Calcium [Vitamin C] 500 mg PO DAILY 12/14/16 [History] Polyethylene Glycol 3350 [MiraLAX] 17 gm PO DAILY PRN #30 powd.pack 12/22/16 [Rx ] Sennosides/Docusate Sodium [Senna-Docusate Sodium Tablet] 2 each PO BID PRN #60 tablet 12/22/16 [Rx] Calcium Carbonate/Vitamin D3 [Calcium 500 + Vit D Caplet] 2 each PO DAILY #60 tablet 12/26/16 [Rx] Cholecalciferol (D-3) [Vitamin D] 5,000 unit PO DAILY 02/02/17 [History] Melatonin [Melatin] 3 mg PO HS 02/02/17 [History] GuaiFENesin/Dextromethorphan [Mucinex Dm] 1 each PO BID 02/19/17 [History] OxyCODONE Immed Rel [Roxicodone 10 MG] 10 mg PO TID #90 tab 02/19/17 [Rx] predniSONE [Prednisone] 10 mg PO DAILY #30 tab.ds.pk 02/19/17 [Rx] Levofloxacin [Levaquin] 750 mg PO DAILY #3 tablet 03/08/17 [Rx] Metoprolol [Lopressor] 12.5 mg PO BID #30 tablet 03/08/17 [Rx] Allergies/Adverse Reactions: 3 Allergy/AdvReac Type Severity Reaction Status Date / Time No Known Allergies Allergy Verified 03/05/17 14:00 Certification: Further, I certify that my clinical findings support that this patient is homebound (i.e. absences from home require considerable and taxing effort and are for medical reasons or [facility] or infrequently or short duration when for other reasons) because: Homebound Reason: Leaving home requires considerable and taxing effort due to condition Attestation: My signature below is to certify that this patient is under my care and that I, or nurse practitioner, or a physician's assistant food service manager working with me, has a face-to -face encounter with this patient.
[2017-03-09] MEDS ORDERED: levoFLOXacin 750 MG TABLET PO SCH (09:00)
== END 2017-03-08 15:04 | disposition home or self-care (01) | DRG 871 ==
LOC: EMEROO 13:53 → 2NENU 19:34
PROVIDERS: ADMIT Hospitalist; ATTEND Internal Medicine

== ENCOUNTER 2017-03-14 11:35 | Observation (INO) ==
[2017-03-14] MEDS ORDERED: Ipratropium/Albuterol Neb 3 ML IH ONE ×2 (12:02)
[2017-03-14] MEDS ORDERED: Dexamethasone 4 MG/ML VIAL IVP ONE (12:03)
[2017-03-14 12:27] LABS: Basophils % 0.1 %; Hematocrit 36.4 % (35.3-44.9); Immature Granulocytes % 0.6 % (0-4); Lymphocytes # 3.1 K/mcL (0.6-4.6); Lymphocytes % 13.2 %; Mean Corpuscular HGB Conc 30.2 g/dL (31.6-35.5); Mean Corpuscular Hemoglobin 28.7 pg (28.0-33.3); Monocytes # 0.7 K/mcL (0.0-1.3); Monocytes % 3.2 %; Platelet Count 300 K/mcL (140-400); Red Blood Count 3.83 M/mcL (3.82-4.97); Red Cell Distribution Width 14.3 % (11.5-14.5); Segmented Neutrophils % 82.9 %
[2017-03-14 12:28] LABS: Neutrophils # 19.2 K/mcL (1.6-8.9)
--- NOTE | 2017-03-14 12:34 | Emergency Department Note ---
Disposition Clinical Impression: Acute respiratory disease Emphysema lung Qualifiers: Emphysema type: other Qualified Code(s): J43.8 - Other emphysema Lung cancer Qualifiers: Laterality: right Lung location: hilum of lung Qualified Code(s): C34.01 - Malignant neoplasm of right main bronchus Disposition: Admitted As Inpatient Condition: Fair General Adult HPI - General Chief complaint: ED Shortness of Breath/Dyspnea Stated complaint: SOB Time Seen by Provider: 03/14/17 11:44 Source: patient Limitations: no limitations Nursing Notes Reviewed: Yes Vital Signs Reviewed: Yes - History of Present Illness HPI Narrative: I did review the previous records and the patient does have a history of lung cancer as well as emphysema and she presents with an exacerbation of her chronic shortness of breath and it did worsen at home this morning and is constant and severe and worse with exertion and not improved with breathing treatments. She denies any chest pain or tightness or discomfort or pressure. No abdominal or back pain. She does have a cough productive of yellow sputum which is unchanged from baseline. No hemoptysis and no complaint of fever. No pain or swelling of the lower extremities. Social history: She has stopped smoking Pain Scale: 7 - Related Data Home Medications Medication Instructions Recorded Confirmed DULoxetine [Cymbalta] 30 mg PO HS 02/15/16 03/14/17 Trazodone HCl 200 mg PO HS 02/15/16 03/14/17 Albuterol Neb [Proventil Neb] 2.5 mg IH Q6H PRN 10/14/16 03/14/17 Albuterol Sulfate [Albuterol 2 puff IH Q6H PRN 10/14/16 03/14/17 Inhaler] Budesonide/Formoterol 160/4.5 2 puff IH BIDR 10/14/16 03/14/17 [Symbicort 160/4.5] Oxygen 2 l NS AD 10/14/16 03/14/17 Tiotropium [Spiriva] 18 mcg IH DAILY 10/14/16 03/14/17 Ascorbate Calcium [Vitamin C] 500 mg PO DAILY 12/14/16 03/14/17 Cholecalciferol (D-3) [Vitamin D] 5,000 unit PO DAILY 02/02/17 03/14/17 Melatonin [Melatin] 3 mg PO HS 02/02/17 03/14/17 GuaiFENesin/Dextromethorphan 1 each PO BID 02/19/17 03/14/17 [Mucinex Dm] OxyCODONE Immed Rel [Roxicodone 10 10 mg PO TID PRN 03/14/17 03/14/17 MG] Previous Rx's Medication Instructions Recorded Polyethylene Glycol 3350 [MiraLAX] 17 gm PO DAILY PRN #30 powd.pack 12/22/16 Sennosides/Docusate Sodium 2 each PO BID PRN #60 tablet 12/22/16 [Senna-Docusate Sodium Tablet] Calcium Carbonate/Vitamin D3 2 each PO DAILY #60 tablet 12/26/16 [Calcium 500 + Vit D Caplet] predniSONE [Prednisone] 10 mg PO DAILY #30 tab.ds.pk 02/19/17 Allergies Allergy/AdvReac Type Severity Reaction Status Date / Time No Known Allergies Allergy Verified 03/05/17 14:00 Review of Systems: Constitutional: No fever Vision: No blurred vision ENT: No rhinorrhea Respiratory: + cough Allergic: No allergies : No blood in urine GI: No blood in stool Hematologic: No bruising Dermatologic: No skin rash Musculoskeletal: No pain in the extremities Neuro: No numbness of the extremities Past Medical History - Past Medical History Medical history: Reports: cancer, COPD, hypertension Surgical history: Reports: hysterectomy (Partial) Psychiatric history: Reports: anxiety, depression PHYSICAL EDUCATION SPECIALIST history: Reports: no PHYSICAL EDUCATION SPECIALIST history - Social History Smoking Status: Never smoker Smokeless Tobacco Status: No Alcohol use: Reports: none Drug use: Reports: none Physical Exam CONSTITUTIONAL: Alert and oriented X3, well-nourished, well appearing, in no apparent distress HEAD: Normocephalic; atraumatic. EYES: PERRL, no scleral icterus. NOSE: The nose is normal in appearance without rhinorrhea RESP: Normal chest excursion with respiration; breath sounds with bilateral wheezing which is symmetric CARD: Regular rhythm, without murmurs, rub or gallop ABD: Non-distended; non-tender, soft,without rigidity, rebound or guarding SKIN: Normal for age and race; warm and dry; no apparent lesions EXTREMITIES: Pulses are 2 plus and equal times 4 extremities, no peripheral edema or calf muscle pain. - General Limitations: no limitations General appearance: alert Course Vital Signs Temperature 98.8 F 03/14/17 11:39 Pulse Rate 113 03/14/17 11:39 Respiratory Rate 22 03/14/17 11:39 Blood Pressure 139/78 03/14/17 11:39 O2 Sat by Pulse Oximetry 95 03/14/17 11:39 Temperature 98.4 F 03/14/17 16:05 Pulse Rate 97 03/14/17 16:05 Respiratory Rate 18 03/14/17 16:16 Blood Pressure 119/70 03/14/17 16:05 O2 Sat by Pulse Oximetry 98 03/14/17 16:16 Oxygen Delivery Oxygen Delivery Nasal Cannula Medical Decision Making - MDM Narrative Medical decision making narrative: patient does have respiratory distress however she is on steroids, I did give her 3 duo nebs as well as IV Decadron 10 mg and chest x-ray as well as labs are ordered and these results are pending. The patient will be admitted due to her significant respiratory distress 1235 I did review the patient's EKG shows sinus tachycardia with a rate of 110 bpm without acute ischemic change. I did review the initial labs. Patient will be admitted to the hospital. This is due to worsening respiratory distress and significant overlying illness including COPD and lung cancer. 1308 - Medical Records Medical records reviewed: Yes I reviewed the patient's medical records. - Lab Data Lab results reviewed: Yes I reviewed the patient's lab results. Result diagrams: 03/14/17 12:18 03/14/17 12:18 Lab Results 03/14/17 03/14/17 03/14/17 Range/Units 12:18 12:18 12:18 WBC 23.1 H D (4.3-11.1) K/mcL RBC 3.83 (3.82-4.97) M/mcL Hgb 11.0 L (11.5-15.4) g/dL Hct 36.4 (35.3-44.9) % MCV 95.0 (83.0-100.0) fL MCH 28.7 (28.0-33.3) pg MCHC 30.2 L (31.6-35.5) g/dL RDW 14.3 (11.5-14.5) % Plt Count 300 (140-400) K/mcL MPV 9.0 L (9.4-12.4) fL Immature Gran % 0.6 (0-4) % Seg Neutrophils % 82.9 % Lymphocytes % 13.2 % Monocytes % 3.2 % Eosinophils % 0.0 % Basophils % 0.1 % Neutrophils # 19.2 H (1.6-8.9) K/mcL Lymphocytes # 3.1 (0.6-4.6) K/mcL Monocytes # 0.7 (0.0-1.3) K/mcL Eosinophils # 0.0 (0.0-0.6) K/mcL Basophils # 0.0 (0.0-0.2) K/mcL Sodium 141 (136-145) mEq/L Potassium 3.4 L (3.5-5.1) mEq/L Chloride 106 (98-107) mEq/L Carbon Dioxide 32 H (23-29) mEq/L BUN 9 (8-23) mg/dL Creatinine 0.51 L (0.60-1.20) mg/dL Est GFR ( Amer) > 60 (> 60) Est GFR (Non-Af Amer) > 60 (> 60) BUN/Creatinine Ratio 18 (6-26) Glucose 142 H (70-105) mg/dL Calculated Osmolality 293 (280-300) Calcium 9.4 (8.6-10.3) mg/dL Troponin I < 0.03 (< 0.04) ng/mL
[2017-03-14 12:42] LABS: BUN/Creatinine Ratio 18 (6-26); Blood Urea Nitrogen 9 mg/dL (8-23); Calcium 9.4 mg/dL (8.6-10.3); Carbon Dioxide 32 mEq/L (23-29); Chloride 106 mEq/L (98-107); Glucose 142 mg/dL (70-105); Osmolality,Calculated 293 (280-300); Potassium 3.4 mEq/L (3.5-5.1); Sodium 141 mEq/L (136-145); eGFR For African Americans > 60 (> 60); eGFR For Non-African Americans > 60 (> 60)
[2017-03-14] MEDS ORDERED: *HR* OxyCODONE/APAP 5/325 TABLET PO ONE ×2 (13:14→15:24)
[2017-03-14] MEDS ORDERED: Sennosides/Docusate Sodium TABLET PO PRN (15:11)
[2017-03-14] MEDS ORDERED: Naloxone 0.4 MG/ML INJ IVP PRN (15:18)
--- NOTE | 2017-03-14 15:31 | Internal Med History&Physical ---
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 mainstem bronchus Does not appear to be HCAP, was recently treated for HCAP with levaquin; finished course Leukocytosis; but I suspect this is d/t chronic steroid use She denies any URI symptoms; reporting only dyspnea, non-productive cough, and wheezing She has been using her nebulizers more frequently; on home o2 2L, remains on 2l and stable Per auscultation she has moderate expiratory wheezing in BL lobes anterior and posterior, tachycardic and regular -Duonebs Q4hr maura -Stop 10mg home Prednisone dose and start Prednisone 40mg daily -Respiratory support per nasal cannula titrate to maintain SPO2 greater than 92% -Continuous telemetry and continuous SPO2 monitoring (2) Leukocytosis Current visit: Yes Status: Resolved Leukocytosis which I suspect is due to chronic steroid use. She does present today with dyspnea and an acute exacerbation of COPD. However, chest x-ray negative for acute coronary pulmonary process. CBC D in the morning Qualifiers: Leukocytosis type: unspecified Qualified Code(s): D72.829 - Elevated white blood cell count, unspecified (3) Tachycardia Current visit: Yes Status: Acute In the setting of an acute exacerbation of COPD. See plan above (4) SIRS (systemic inflammatory response syndrome) Current visit: Yes Status: Acute Meats 3 SIRS criteria with tachycardia, tachypnea and leukocytosis. However, I do not believe she is septic. She is afebrile and hemodynamically stable. I believe his leukocytosis is caused by chronic steroid use and that the tachycardia and tachypnea as a result of an acute exacerbation of COPD. Continue to closely monitor hemodynamic status, CBC and BMP in the morning. I will hold off on antibiotic therapy for now. If she was just recently treated for HCAP and was given a course of Levaquin which she has finished. (5) DVT prophylaxis Current visit: Yes Status: Acute Heprin 5000 units SC BID Internal Medicine - H&P: HPI Chief complaint: dyspnea Admitted From: Home Plans for Post Hospital Care: Home History of present illness: Ms. Keenan is a 61 year old female with a PMH of stage 4 small cell right mainstem bronchus, COPD, HTN, anxiety and depression. She is taking chemotherapy palliatively for her cancer and her last treatment was yesterday. She reports that she always has dyspnea the day after a treatment. She has been admitted multiple times for COPD exacerbation and most recently for HCAP. For the HCAP admission in early February she was discharged home on oral Levaquin and has completed the entire course. She states that as of this morning she has had an increase in dyspnea, non-productive cough and wheezing. She denies any fevers, chills, URI symptoms, hemoptysis, chest pain, nausea vomiting diarrhea. CXR in ED negative for PNA only showing COPD. She does have leukocytosis but has been on a 10-day steroid taper. Past Med Surg Social Fam HX - Past Medical History Medical history: cancer, COPD, hypertension Psychiatric history: anxiety, depression - Past Surgical History Surgical History: hysterectomy (Partial) - Social History Smoking Status: Never smoker Smokeless Tobacco Status: No Alcohol use: none Drug use: none - Family History Sister Family Member Ethnicity: Non- Living Status: Still Living Hx Family Cardiac Disorders: Yes (HTN) Hx Family Cancer: Yes (cervical) Mother Family Member Ethnicity: Non- Living Status: Hx Family Cardiac Disorders: Yes (HTN) Hx Family Respiratory Disorders: Yes (COPD) Father Adopted: No Family Member Ethnicity: Non- Living Status: Hx Family Cardiac Disorders: Yes (CHF, CAD, [place]) Hx Family Respiratory Disorders: Yes (mother copd) Hx Family Cancer: No Hx Family GI Disorders: No Hx Family Endocrine Disorder: No Hx Family Neuromuscular Disorders: No Hx Family Neurologic Disorders: No Hx Family HEENT Disorders: No Hx Family Autoimmune Disorders: No Internal Medicine - H&P: Meds DULoxetine [Cymbalta] 30 mg PO HS 02/15/16 [History] Trazodone HCl 200 mg PO HS 02/15/16 [History] Albuterol Neb [Proventil Neb] 2.5 mg IH Q6H PRN 10/14/16 [History] Albuterol Sulfate [Albuterol Inhaler] 2 puff IH Q6H PRN 10/14/16 [History] Budesonide/Formoterol 160/4.5 [Symbicort 160/4.5] 2 puff IH BIDR 10/14/16 [ History] Oxygen 2 l NS AD 10/14/16 [History] Tiotropium [Spiriva] 18 mcg IH DAILY 10/14/16 [History] Ascorbate Calcium [Vitamin C] 500 mg PO DAILY 12/14/16 [History] Polyethylene Glycol 3350 [MiraLAX] 17 gm PO DAILY PRN #30 powd.pack 12/22/16 [Rx ] Sennosides/Docusate Sodium [Senna-Docusate Sodium Tablet] 2 each PO BID PRN #60 tablet 12/22/16 [Rx] Calcium Carbonate/Vitamin D3 [Calcium 500 + Vit D Caplet] 2 each PO DAILY #60 tablet 12/26/16 [Rx] Cholecalciferol (D-3) [Vitamin D] 5,000 unit PO DAILY 02/02/17 [History] Melatonin [Melatin] 3 mg PO HS 02/02/17 [History] GuaiFENesin/Dextromethorphan [Mucinex Dm] 1 each PO BID 02/19/17 [History] predniSONE [Prednisone] 10 mg PO DAILY #30 tab.ds.pk 02/19/17 [Rx] OxyCODONE Immed Rel [Roxicodone 10 MG] 10 mg PO TID PRN 03/14/17 [History] 3 Allergy/AdvReac Type Severity Reaction Status Date / Time No Known Allergies Allergy Verified 03/05/17 14:00 All Systems PM: A 10-system review of systems was performed and is negative for pertinent findings except as documented above in the HPI. - Constitutional Constitutional: as per HPI - EENT Eyes: as per HPI Ears: as per HPI Nose, mouth and throat: as per HPI - Cardiovascular Cardiovascular ROS IM: dyspnea, dyspnea on exertion, no chest pain, no diaphoresis, no lightheadedness, no palpitations, no syncope - Respiratory Respiratory: as per HPI, cough, dyspnea, dyspnea on exertion, wheezing, no hemoptysis, no pain on inspiration, no chest congestion, no excessive phlegm production, no pain with cough - Gastrointestinal Gastrointestinal: no abdominal pain, no diarrhea, no hematemesis, no hematochezia, no melena, no nausea, no vomiting - Genitourinary Genitourinary: no change in urinary stream, no dysuria, no flank pain, no hematuria - Musculoskeletal Musculoskeletal ROS IM: no numbness, no tingling - Integumentary Integumentary IM: no rash, no unusual bruising - Neurological Neurological ROS: no confusion, no convulsions, no focal weakness, no numbness, no tingling, no tremor(s) - Hematologic/Lymphatic Hematologic/Lymphatic: no easy bruising - Constitutional Vitals: Temp Pulse Resp BP Pulse Ox 98.8 F 118 24 138/85 96 03/14/17 11:39 03/14/17 13:16 03/14/17 13:16 03/14/17 13:16 03/14/17 13:16 General appearance: Present: cooperative, mild distress, A&O X 3, answers questions appropriately - Head Head exam: Present: atraumatic, normocephalic - Neck Neck exam general surgery: Present: supple, trachea midline. Absent: lymphadenopathy - Respiratory Respiratory exam: Present: prolonged expiratory phase, wheezes (Expiratory; Bilateral lobes anterior and posterior), tachypnea. Absent: accessory muscle use, chest wall tenderness, rales, rhonchi, stridor - Cardiovascular Cardiovascular exam: Present: +S1, +S2, tachycardia. Absent: diastolic murmur, gallop, irregular rhythm, rubs, systolic murmur - GI/Abdominal GI/Abdominal exam: Present: normal bowel sounds, soft, no peritoneal signs. Absent: distended, tenderness - Extremities Exam Extremities exam: Present: warm, radial pulses palpable and symmetrical. Absent : calf tenderness, cyanotic, pedal edema - Neurological Exam Neurological exam: Present: alert, oriented X3. Absent: facial droop, speech deficit - Skin Skin exam: Present: dry, intact Internal Med - H&P Results - Labs CBC & Chem 7: 03/15/17 03:55 03/15/17 03:55 - EKG Data -: EKG Interpreted by Myself EKG shows normal: sinus rhythm Rate: tachycardia - EKG Data Prior EKG available for review: yes When compared to previous EKG: there is no significant change - Impressions Impressions Chest X-Ray 03/14/17 12:02 IMPRESSION: No radiographic evidence of acute cardiopulmonary process. Findings suggestive of COPD. Known right hilar mass is not well seen. D/ / 03/14/2017 14:01:37 Natan Burris MD / nirmala Interpreting Provider: Natan Burris MD
[2017-03-14] MEDS ORDERED: Ipratropium/Albuterol Neb 3 ML ONE (16:01)
[2017-03-14] MEDS: Ipratropium/Albuterol Neb 3 ML IH SCH ×3 (16:10→23:15)
[2017-03-14] MEDS: *HR* Heparin 5,000 UNIT/ML VIAL SQ SCH (19:37)
[2017-03-14] MEDS: Melatonin 3 MG TABLET PO SCH (19:49)
[2017-03-14] MEDS: traZODone 50 MG TABLET PO SCH (19:49)
[2017-03-14] MEDS: GuaiFENesin/Dextromethorphan TABLET PO SCH (19:49)
[2017-03-15] MEDS: Ipratropium/Albuterol Neb 3 ML IH SCH ×5 (03:34→20:02)
[2017-03-15 04:45] LABS: Basophils % 0.2 %
[2017-03-15 04:46] LABS: Basophils # 0.1 K/mcL (0.0-0.2); Hematocrit 34.9 % (35.3-44.9); Hemoglobin 10.5 g/dL (11.5-15.4); Immature Granulocytes % 10.1 % (0-4); Lymphocytes # 1.5 K/mcL (0.6-4.6); Lymphocytes % 3.1 %; Mean Corpuscular HGB Conc 30.1 g/dL (31.6-35.5); Mean Corpuscular Hemoglobin 29.2 pg (28.0-33.3); Mean Corpuscular Volume 96.9 fL (83.0-100.0); Mean Platelet Volume 9.8 fL (9.4-12.4); Monocytes # 0.9 K/mcL (0.0-1.3); Monocytes % 1.8 %; Platelet Count 271 K/mcL (140-400); Red Cell Distribution Width 14.4 % (11.5-14.5); Segmented Neutrophils % 84.8 %
[2017-03-15 04:51] LABS: BUN/Creatinine Ratio 25 (6-26); Blood Urea Nitrogen 15 mg/dL (8-23); Calcium 8.7 mg/dL (8.6-10.3); Carbon Dioxide 30 mEq/L (23-29); Chloride 108 mEq/L (98-107); Glucose 89 mg/dL (70-105); Neutrophils # 41.6 K/mcL (1.6-8.9); Osmolality,Calculated 294 (280-300); Potassium 3.9 mEq/L (3.5-5.1); Sodium 142 mEq/L (136-145); eGFR For African Americans > 60 (> 60); eGFR For Non-African Americans > 60 (> 60)
[2017-03-15 05:15] LABS: Platelet Estimate Normal (Normal); Reactive Lymphocytes Present (Not Present); Toxic Granulation Present (Not Present); Toxic Vacuolation Present (Not Present)
[2017-03-15] MEDS: *HR* Heparin 5,000 UNIT/ML VIAL SQ SCH ×2 (05:49→17:38)
[2017-03-15] MEDS: Tiotropium 18 MCG inhalation IH SCH (07:48)
[2017-03-15] MEDS: Ascorbic Acid 500 MG TABLET PO SCH (08:32)
[2017-03-15] MEDS: Cholecalciferol (D-3) 1,000 UNIT TABLET PO SCH (08:32)
[2017-03-15] MEDS: GuaiFENesin/Dextromethorphan TABLET PO SCH ×2 (08:32→19:34)
[2017-03-15] MEDS: PrednisoLONE Oral Soln 15 MG/5 ML UDC PO SCH (08:35)
[2017-03-15] MEDS: *HR* OxyCODONE/APAP 5/325 TABLET PO PRN (10:28)
[2017-03-15] MEDS ORDERED: *HR* LORazepam 0.5 MG TABLET PO PRN (12:00)
--- NOTE | 2017-03-15 12:00 | Internal Med Progress Note ---
Date of Encounter: 03/15/17 Time of Encounter: 10:20 - Assessment and plan (1) Acute exacerbation of chronic obstructive airways disease Current Visit: Yes Status: Acute Assessment and plan: She does have mild COPD exacerbation Seems to be better today she feels like she is at her baseline pt claims that every time she gets Chemo , she is falling sick and develops severe dyspnea / SOB Will talk to Heme Onc about this cont supportive and symptomatic care for now (2) Anxiety Current Visit: Yes Status: Acute Assessment and plan: SHe does have significant anxiety will start her on Ativan PRN (3) Hypertension Current Visit: Yes Status: Chronic Assessment and plan: resumed home meds Qualifiers: Hypertension type: essential hypertension Qualified Code(s): I10 - Essential (primary) hypertension (4) Leukocytosis Current Visit: Yes Status: Resolved Assessment and plan: reviewed her previous labs.. she does have few incidents of short burst of leukocytosis wondering could be due to chronic s steroids + Chemo therapy no signs of infection no need of abx will talk to Heme Onc Qualifiers: Leukocytosis type: unspecified Qualified Code(s): D72.829 - Elevated white blood cell count, unspecified (5) Sinus tachycardia Current Visit: No Status: Acute Assessment and plan: due to resp failure + anxiety cont supportive care also started her on Metoprolol 25mg BID (6) SIRS (systemic inflammatory response syndrome) Current Visit: Yes Status: Acute Assessment and plan: She did meet SIRS criteria..but no signs of infection no need of abx cont close monitoring (7) Small cell 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 Current Visit: No Status: Chronic (8) Chronic respiratory failure with hypoxia Current Visit: Yes Status: Acute (9) Failure to thrive Current Visit: Yes Status: Acute Assessment and plan: due to lung cancer 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 Keenan is a 61 year old female with a PMH of stage 4 small cell right mainstem bronchus, COPD, HTN, anxiety and depression. She is taking chemotherapy palliatively for her cancer and her last treatment was yesterday. She reports that she always has dyspnea the day after a treatment. She has been admitted multiple times for COPD exacerbation and most recently for HCAP. For the HCAP admission in early February she was discharged home on oral Levaquin and has completed the entire course. Pt states she feeling lot better today. Denied any CP / SOB . Still has some JACKSON. Denied any cough / expectoration. No fever. No URI symptoms. - Constitutional Vitals: Temp Pulse Resp BP Pulse Ox 98.9 F 122 17 117/83 92 03/15/17 11:43 03/15/17 11:43 03/15/17 11:43 03/15/17 11:43 03/15/17 11:43 General appearance: Present: cooperative, A&O X 3, answers questions appropriately - Head Head exam: Present: atraumatic, normal inspection - Neck Neck exam general surgery: Present: supple - Respiratory Respiratory exam: Present: decreased breath sounds, wheezes (mild). Absent: rales, respiratory distress, rhonchi - Cardiovascular Cardiovascular exam: Present: +S1, +S2, systolic murmur, tachycardia - GI/Abdominal GI/Abdominal exam: Present: normal bowel sounds, soft. Absent: rebound, rigid, tenderness - Extremities Exam Extremities exam: Absent: calf tenderness, pedal edema, tenderness - Back Exam Back exam: Absent: CVA tenderness (L), CVA tenderness (R) - Neurological Exam Neurological exam: Present: alert, oriented X3 - Psychiatric Psychiatric exam: Present: anxious Internal Medicine: Result - Labs CBC & Chem 7: 03/15/17 03:55 03/15/17 03:55 Labs: Short CBC 03/15/17 Range/Units 03:55 WBC 49.1 H* D (4.3-11.1) K/mcL Hgb 10.5 L (11.5-15.4) g/dL Hct 34.9 L (35.3-44.9) % Plt Count 271 (140-400) K/mcL Neutrophils # 41.6 H (1.6-8.9) K/mcL BMP 03/15/17 03:55 Sodium 142 Potassium 3.9 Chloride 108 H Carbon Dioxide 30 H BUN 15 Creatinine 0.59 L Glucose 89 Calcium 8.7 Consult Discharge Plan - Plan Referrals: Ron Ward MD [Primary Care Provider] -
--- NOTE | 2017-03-15 13:38 | Oncology Inp Consult Note ---
<Scarlet Constantino - Last Filed: 03/15/17 15:18> Date of Encounter: 03/15/17 Time of Encounter: 13:33 Assessment and Plan (1) Leukocytosis Status: Resolved Assessment and plan: Leukocytosis with neutrophilia. Secondary to Neulasta received on 03/13/2017 and steroids. Afebrile. CXR suggestive of COPD. No sign of infection or role for ATB therapy at this time. Qualifiers: Leukocytosis type: unspecified Qualified Code(s): D72.829 - Elevated white blood cell count, unspecified (2) 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 Assessment and plan: S/P carbo/etoposide, last received on 03/13. She states she tolerates treatments exceptionally well other than mild fatigue for a day or two following treatment. CT angiogram on 03/05/17 that showed enlargement of the right hilar mass with new complete obstruction of the bronchus intermedius and postobstructive bronchiolitis, bronchioliitis, sclerotic lesion in the left 6th rib healing bilateral rib fractures. Patient has outpatient follow up scheduled with Dr. Beltrán on 03/21/17 to discuss further treatment options, may consider other treatment options given the radiographic progression described above, Dr. Beltrán treating oncologist to discuss treatment options at next appointment. She reports sudden attacks of increase in work of breathing and SOB which result in her presentation and most recent presentation to ER. This could be due to neulasta causing inflammatory like response. COPD exacerbation symptoms have resolved at this time and patients respiratory status has returned back to baseline. Currently on 2L per nasal cannula, this is patients O2 requirement at home as well. She continues Proair, Symbicort, Spiriva and requires albuterol nebulizer treatments about every 4 hours at home. Please refer to Dr. Rincon's attestation below for further details - Data of Consult Requesting Physician: Bam Schaefer Primary Care Provider: Ron Ward MD - Consult Narrative Reason for consult: Small cell lung cancer stage IV History of present illness: Ms. Keenan is a 61 year old female with medical history significant for COPD, home oxygen dependence, diagnosis of small cell lung cancer, extensive stage with liver metastatic disease, on palliative chemotherapy with carboplatin and etoposide, liver lesions in interim CT imaging. She has had multiple hospitalizations for PNA and COPD exacerbations since beginning treatment. Was hospitalized with acute pain in the back and COPD exacerbation in November 2016. She underwent MRI of the thoracic spine that showed subacute compression fractures at T8, T12 enhancement of spinous processes of T11 also noted. Prior to receiving day 2 of chemotherapy on 03/05 2017 she called in with shortness of breath chest discomfort patient was recommended to go to the emergency room where she completed a CT angiogram that showed enlargement of the right hilar mass with new complete obstruction of the bronchus intermedius and postobstructive bronchiolitis, bronchioliitis, sclerotic lesion in the left 6th rib healing bilateral rib fractures. No evidence of pulmonary embolus. She started on antibiotics vancomycin, Zosyn and treatment for COPD exacerbation. Patient most recently presented to the ER with c/o worsening SOB, non productive cough, wheezing and JACKSON. She denies any fevers, chills, URI symptoms , hemoptysis, chest pain, nausea vomiting diarrhea. CXR in ED negative for PNA only showing COPD. Past Med Surg Social Fam HX - Past Medical History Medical history: cancer, COPD, hypertension Psychiatric history: anxiety, depression - Past Surgical History Surgical History: hysterectomy (Partial) - Social History Smoking Status: Never smoker Smokeless Tobacco Status: No Alcohol use: none Drug use: none - Family History Sister Family Member Ethnicity: Non- Living Status: Still Living Hx Family Cardiac Disorders: Yes (HTN) Hx Family Cancer: Yes (cervical) Mother Family Member Ethnicity: Non- Living Status: Hx Family Cardiac Disorders: Yes (HTN) Hx Family Respiratory Disorders: Yes (COPD) Father Adopted: No Family Member Ethnicity: Non- Living Status: Hx Family Cardiac Disorders: Yes (CHF, CAD, [place]) Hx Family Respiratory Disorders: Yes (mother copd) Hx Family Cancer: No Hx Family GI Disorders: No Hx Family Endocrine Disorder: No Hx Family Neuromuscular Disorders: No Hx Family Neurologic Disorders: No Hx Family HEENT Disorders: No Hx Family Autoimmune Disorders: No Medications and Allergies DULoxetine [Cymbalta] 30 mg PO HS 02/15/16 [History] Trazodone HCl 200 mg PO HS 02/15/16 [History] Albuterol Neb [Proventil Neb] 2.5 mg IH Q6H PRN 10/14/16 [History] Albuterol Sulfate [Albuterol Inhaler] 2 puff IH Q6H PRN 10/14/16 [History] Budesonide/Formoterol 160/4.5 [Symbicort 160/4.5] 2 puff IH BIDR 10/14/16 [ History] Oxygen 2 l NS AD 10/14/16 [History] Tiotropium [Spiriva] 18 mcg IH DAILY 10/14/16 [History] Ascorbate Calcium [Vitamin C] 500 mg PO DAILY 12/14/16 [History] Polyethylene Glycol 3350 [MiraLAX] 17 gm PO DAILY PRN #30 powd.pack 12/22/16 [Rx ] Sennosides/Docusate Sodium [Senna-Docusate Sodium Tablet] 2 each PO BID PRN #60 tablet 12/22/16 [Rx] Calcium Carbonate/Vitamin D3 [Calcium 500 + Vit D Caplet] 2 each PO DAILY #60 tablet 12/26/16 [Rx] Cholecalciferol (D-3) [Vitamin D] 5,000 unit PO DAILY 02/02/17 [History] Melatonin [Melatin] 3 mg PO HS 02/02/17 [History] GuaiFENesin/Dextromethorphan [Mucinex Dm] 1 each PO BID 02/19/17 [History] predniSONE [Prednisone] 10 mg PO DAILY #30 tab.ds.pk 02/19/17 [Rx] OxyCODONE Immed Rel [Roxicodone 10 MG] 10 mg PO TID PRN 03/14/17 [History] 3 Allergy/AdvReac Type Severity Reaction Status Date / Time No Known Allergies Allergy Verified 03/05/17 14:00 Constitutional: Present: weakness. Absent: chills, fever(s), weight loss Cardiovascular: Absent: chest pain, irregular heart rhythm, palpitations Respiratory: Present: cough, dyspnea on exertion. Absent: hemoptysis, chest congestion Gastrointestinal: Absent: abdominal pain, melena, nausea, vomiting Genitourinary: Absent: dysuria Musculoskeletal: Present: muscle weakness Integumentary: Absent: skin ulcer, wounds Neurological: Absent: numbness, syncope, tingling, tremor(s), vertigo Hematologic/Lymphatic: Absent: easy bleeding, lymphadenopathy Oncology - Exam - Constitutional Vitals: Temp Pulse Resp BP Pulse Ox 98.9 F 122 17 117/83 92 03/15/17 11:43 03/15/17 11:43 03/15/17 11:43 03/15/17 11:43 03/15/17 11:43 General appearance: cooperative, no acute distress, thin, no febrile - Head Head exam: Present: atraumatic - Respiratory Respiratory exam: Present: decreased breath sounds, wheezes. Absent: respiratory distress - Cardiovascular Cardiovascular exam: Present: RRR, +S1, +S2, tachycardia - GI/Abdominal GI/Abdominal exam: Present: normal bowel sounds, soft. Absent: guarding, tenderness - Extremities Exam Extremities exam: Present: normal inspection. Absent: calf tenderness - Neurological Exam Neurological exam: Present: alert, oriented X3, no focal deficits, strengths equal and symetr throughout - Psychiatric Psychiatric exam: Present: normal affect, normal mood - Skin Skin exam: Present: normal color, warm Oncology - Results Labs: Short CBC 03/15/17 Range/Units 03:55 WBC 49.1 H* D (4.3-11.1) K/mcL Hgb 10.5 L (11.5-15.4) g/dL Hct 34.9 L (35.3-44.9) % Plt Count 271 (140-400) K/mcL Neutrophils # 41.6 H (1.6-8.9) K/mcL BMP 03/15/17 03:55 Sodium 142 Potassium 3.9 Chloride 108 H Carbon Dioxide 30 H BUN 15 Creatinine 0.59 L Glucose 89 Calcium 8.7 Consult Discharge Plan - Plan Referrals: Ron Ward MD [Primary Care Provider] - <Jonh Rincon - Last Filed: 03/15/17 15:50> Date of Encounter: 03/15/17 - Data of Consult Requesting Physician: Bam Schaefer Primary Care Provider: Ron Ward MD - Consult Narrative History of present illness: Ms. Keenan is a 61 year old female Oncology - Exam - Constitutional Vitals: Temp Pulse Resp BP Pulse Ox 98.9 F 122 17 117/83 92 03/15/17 11:43 03/15/17 11:43 03/15/17 11:43 03/15/17 11:43 03/15/17 11:43 Oncology - Results Labs: Short CBC 03/15/17 Range/Units 03:55 WBC 49.1 H* D (4.3-11.1) K/mcL Hgb 10.5 L (11.5-15.4) g/dL Hct 34.9 L (35.3-44.9) % Plt Count 271 (140-400) K/mcL Neutrophils # 41.6 H (1.6-8.9) K/mcL BMP 03/15/17 03:55 Sodium 142 Potassium 3.9 Chloride 108 H Carbon Dioxide 30 H BUN 15 Creatinine 0.59 L Glucose 89 Calcium 8.7 - Attending Attestation seen and examined patient and agree with plan. Patient is 61 y.o. F w/ extensive stage SCLC. She has been admitted literally every time she has had chemotherapy on the day of or after neulasta treatment. I suspect that neulasta causes just a slight pulmonary inflammatory response/ leukostatic response in her that she tips over into a COPD exacerbation. The last admission prior to this one occurred without the neulasta. However, at that time CT scan demonsrated collapses of part of the R lung from complete occlusion of one of the bronchi by progressive cancer. that was likely the etiology for that admission. I discussed the findings of the CT with her and that she is nos refractory to the [place] doublet. We discussed briefly that topotecan would be an option. Given her reaction to neulasta, weekly administration may be more appropriate. However, if the 5 day regimen is so elected the patient could benefit from high dose steroids with the dose of neulasta with prednsione 60 mg or 100 mg daily x 5 days to prevent the COPD exacerbation and the admission.
--- NOTE | 2017-03-15 13:40 | Electrocardiograph Report ---
[address] [place] [address] Test Date: 2017-03-14 Pat Name: Domi Keenan Department: 104 Room: [facility] Gender: F Postal Clerk: YUMIKO : 1955 Requested By: Srinivas Andrew Order Number: [id number] Reading MD: Tj Singh MD Measurements Intervals [place] Rate: 110 P: 63 DC: 137 QRS: 15 QRSD: 82 T: 57 QT: 318 QTc: 383 Interpretive Statements SINUS TACHYCARDIA BASELINE ARTIFACT Electronically Signed On 03-15-2017 13:38:39 EST by Tj Singh MD
[2017-03-15] MEDS: traZODone 50 MG TABLET PO SCH (19:34)
[2017-03-15] MEDS: Melatonin 3 MG TABLET PO SCH (19:34)
[2017-03-16] MEDS: Ipratropium/Albuterol Neb 3 ML IH SCH ×4 (00:01→11:20)
[2017-03-16] MEDS: *HR* OxyCODONE/APAP 5/325 TABLET PO PRN (04:50)
[2017-03-16] MEDS: *HR* Heparin 5,000 UNIT/ML VIAL SQ SCH (04:52)
[2017-03-16 07:43] VITALS: BP 125/80
[2017-03-16] MEDS: Tiotropium 18 MCG inhalation IH SCH (07:47)
[2017-03-16] MEDS: PrednisoLONE Oral Soln 15 MG/5 ML UDC PO SCH (09:10)
[2017-03-16] MEDS: Ascorbic Acid 500 MG TABLET PO SCH (09:10)
[2017-03-16] MEDS: GuaiFENesin/Dextromethorphan TABLET PO SCH (09:10)
[2017-03-16] MEDS: Cholecalciferol (D-3) 1,000 UNIT TABLET PO SCH (09:10)
--- NOTE | 2017-03-16 10:44 | Discharge Summary ---
Date of Encounter: 03/16/17 Time of Encounter: 10:36 - Discharge Diagnosis (1) Acute exacerbation of chronic obstructive airways disease Priority: Primary Status: Acute (2) Anxiety Priority: Primary Status: Acute (3) Hypertension Priority: Secondary Status: Chronic Qualifiers: Hypertension type: essential hypertension Qualified Code(s): I10 - Essential (primary) hypertension (4) Leukocytosis Priority: Secondary Status: Resolved Qualifiers: Leukocytosis type: unspecified Qualified Code(s): D72.829 - Elevated white blood cell count, unspecified (5) Sinus tachycardia Priority: Secondary Status: Acute (6) SIRS (systemic inflammatory response syndrome) Priority: Secondary Status: Acute (7) Small cell 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 Priority: Secondary Status: Chronic (8) Chronic respiratory failure with hypoxia Priority: Secondary Status: Acute (9) Failure to thrive Priority: Secondary Status: Acute Qualifiers: Failure to thrive age range: in adult Qualified Code(s): R62.7 - Adult failure to thrive (10) Protein-calorie malnutrition, severe Priority: Secondary Status: Acute - Discharge Medications Prescriptions: Amoxicillin/Clavulanate [Augmentin] 875 mg PO BIDWM #10 tablet LORazepam [Ativan] 0.5 mg PO BID PRN #20 tablet PRN Reason: Anxiety Metoprolol [Lopressor] 25 mg PO BID #60 tablet predniSONE [PredniSONE] 40 mg PO DAILY #10 tablet Home Medications: DULoxetine [Cymbalta] 30 mg PO HS 02/15/16 [History] Trazodone HCl 200 mg PO HS 02/15/16 [History] Albuterol Neb [Proventil Neb] 2.5 mg IH Q6H PRN 10/14/16 [History] Albuterol Sulfate [Albuterol Inhaler] 2 puff IH Q6H PRN 10/14/16 [History] Budesonide/Formoterol 160/4.5 [Symbicort 160/4.5] 2 puff IH BIDR 10/14/16 [ History] Oxygen 2 l NS AD 10/14/16 [History] Tiotropium [Spiriva] 18 mcg IH DAILY 10/14/16 [History] Ascorbate Calcium [Vitamin C] 500 mg PO DAILY 12/14/16 [History] Polyethylene Glycol 3350 [MiraLAX] 17 gm PO DAILY PRN #30 powd.pack 12/22/16 [Rx ] Sennosides/Docusate Sodium [Senna-Docusate Sodium Tablet] 2 each PO BID PRN #60 tablet 12/22/16 [Rx] Calcium Carbonate/Vitamin D3 [Calcium 500 + Vit D Caplet] 2 each PO DAILY #60 tablet 12/26/16 [Rx] Cholecalciferol (D-3) [Vitamin D] 5,000 unit PO DAILY 02/02/17 [History] Melatonin [Melatin] 3 mg PO HS 02/02/17 [History] GuaiFENesin/Dextromethorphan [Mucinex Dm] 1 each PO BID 02/19/17 [History] predniSONE [Prednisone] 10 mg PO DAILY #30 tab.ds.pk 02/19/17 [Rx] OxyCODONE Immed Rel [Roxicodone 10 MG] 10 mg PO TID PRN 03/14/17 [History] Amoxicillin/Clavulanate [Augmentin] 875 mg PO BIDWM #10 tablet 03/16/17 [Rx] LORazepam [Ativan] 0.5 mg PO BID PRN #20 tablet 03/16/17 [Rx] Metoprolol [Lopressor] 25 mg PO BID #60 tablet 03/16/17 [Rx] predniSONE [PredniSONE] 40 mg PO DAILY #10 tablet 03/16/17 [Rx] Allergies/Adverse Reactions: 3 Allergy/AdvReac Type Severity Reaction Status Date / Time No Known Allergies Allergy Verified 03/05/17 14:00 Procedures/tests Complete & Pending: Procedures Performed prior 72 hours Category Date Time Status CT abd pelvis w iv and oral [CT] Routine Cat Scan 03/15/17 15:42 Completed Date of admission: 03/14/17 14:48 Primary care physician: Ron Ward MD Consults: 03/14/17 16:41 Consult to Nutrition [CONS] Routine Comment: Consulting Provider: NUTRITION Reason for Dietary Consult: MST Score 03/15/17 12:12 Consult to Oncology Hematology [CONS] Routine Consulting Provider: Linda Bird Reason for Consult: small cell lung cancer.. leukocytosis - ?? chemo induced Call Completed: Yes - Patient Status Disposition: Home, Self-Care Condition: Good Overall status at discharge: patient is back to baseline - Discharge Instructions Follow Up With: Ron Ward MD [Primary Care Provider] - - Diet and Activity Activity: increase activity as tolerated Diet: low salt diet Hospital course: Ms. 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 She is taking chemotherapy palliatively for her cancer and her last treatment was yesterday. She reports that she always has dyspnea the day after a treatment. She has been admitted multiple times for COPD exacerbation and most recently for HCAP. For the HCAP admission in early February she was discharged home on oral Levaquin and has completed the entire course. Pt was admitted in the hospital started on PO staeroids. Her symptoms improved on the following day. pt claims that every time she gets Chemo , she is falling sick and develops severe dyspnea / SOB. I talked to Heme Onc who suggested mostly due to Neulasta she developed inflammatory reaction including severe leukocytosis. Recommend to f/u with Heme Onc as an out pt, they may change the chemo medication or frequency of Neulasta. Her CT scan showed RLL PNA , however she denied any cough with expectoration, no fever.. Due to her immunocompromised state I sent her home on PO Augmentin for 5 days course. She does have Sinus tachcyardia due to anxiety and Resp distress which improved with Metoprolol and Ativan PRN. So will d/c her home in stable condition today. - Time Spent with Patient Total time spent providing and/or coordinating discharge services: - Constitutional Vitals: Temp Pulse Resp BP Pulse Ox 97.8 F 83 16 125/80 99 03/16/17 07:37 03/16/17 07:37 03/16/17 07:37 03/16/17 07:37 03/16/17 07:37 General appearance: Present: cooperative, A&O X 3, answers questions appropriately - Head Head exam: Present: atraumatic, normal inspection - Neck Neck exam general surgery: Present: supple - Respiratory Respiratory exam: Present: decreased breath sounds, wheezes (mild). Absent: rales, respiratory distress, rhonchi - Cardiovascular Cardiovascular exam: Present: +S1, +S2. Absent: tachycardia - GI/Abdominal GI/Abdominal exam: Present: normal bowel sounds, soft. Absent: rebound, rigid, tenderness - Extremities Exam Extremities exam: Absent: calf tenderness, pedal edema, tenderness - Back Exam Back exam: Absent: CVA tenderness (L), CVA tenderness (R) - Psychiatric Psychiatric exam: Present: normal affect, normal mood
[2017-03-16 10:53] LABS: Mean Corpuscular Volume 95.4 fL (83.0-100.0)
[2017-03-16 10:55] LABS: Hematocrit 35.3 % (35.3-44.9); Hemoglobin 10.8 g/dL (11.5-15.4); Mean Corpuscular HGB Conc 30.6 g/dL (31.6-35.5); Mean Corpuscular Hemoglobin 29.2 pg (28.0-33.3); Mean Platelet Volume 9.7 fL (9.4-12.4); Platelet Count 217 K/mcL (140-400); Red Cell Distribution Width 14.5 % (11.5-14.5)
[2017-03-16 11:19] LABS: Lymphocytes # 3.6 K/mcL (0.6-4.6); Neutrophils # 41.1 K/mcL (1.6-8.9)
[2017-03-16 11:20] LABS: Reactive Lymphocytes Present (Not Present); Toxic Granulation Present (Not Present)
== END 2017-03-16 12:18 | disposition home or self-care (01) ==
LOC: 3NENU 11:35 → EMEROO 11:35 → 3NENU 15:46
PROVIDERS: ADMIT Nurse Practitioner; ATTEND Internal Medicine

== ENCOUNTER 2017-04-18 15:21 | Observation (INO) ==
[2017-04-18 16:13] LABS: Basophils # 0.1 K/mcL (0.0-0.2); Basophils % 0.6 %; Eosinophils % 0.1 %; Hematocrit 39.5 % (35.3-44.9); Immature Granulocytes % 4.4 % (0-4); Lymphocytes % 20.3 %; Mean Corpuscular HGB Conc 31.1 g/dL (31.6-35.5); Mean Corpuscular Hemoglobin 28.3 pg (28.0-33.3); Mean Platelet Volume 9.7 fL (9.4-12.4); Monocytes # 1.1 K/mcL (0.0-1.3); Monocytes % 5.6 %; Neutrophils # 13.5 K/mcL (1.6-8.9); Nucleated Red Blood Cells 0.2 /100 WBC (0); Platelet Count 321 K/mcL (140-400); Red Blood Count 4.34 M/mcL (3.82-4.97); Red Cell Distribution Width 14.7 % (11.5-14.5)
[2017-04-18 16:15] LABS: Hemoglobin 12.3 g/dL (11.5-15.4)
[2017-04-18] MEDS ORDERED: Ipratropium/Albuterol Neb 3 ML IH ONE (16:18)
[2017-04-18] MEDS ORDERED: 0.9 % Sodium Chloride 1,000 ML IVC ONE (16:18)
[2017-04-18] MEDS ORDERED: methylPREDNISolone 125 MG/2 ML VIAL IVP ONE (16:18)
[2017-04-18 16:21] LABS: BUN/Creatinine Ratio 16 (6-26); Blood Urea Nitrogen 9 mg/dL (8-23); Calcium 9.6 mg/dL (8.6-10.3); Carbon Dioxide 30 mEq/L (23-29); Chloride 102 mEq/L (98-107); Glucose 96 mg/dL (70-105); Osmolality,Calculated 287 (280-300); Potassium 3.5 mEq/L (3.5-5.1); Sodium 139 mEq/L (136-145); eGFR For African Americans > 60 (> 60); eGFR For Non-African Americans > 60 (> 60)
--- NOTE | 2017-04-18 16:24 | Emergency Department Note ---
Disposition Clinical Impression: Pneumonia Qualifiers: Pneumonia type: due to unspecified organism Laterality: right Lung location: unspecified part of lung Qualified Code(s): J18.9 - Pneumonia, unspecified organism COPD (chronic obstructive pulmonary disease) Qualifiers: COPD type: unspecified COPD Qualified Code(s): J44.9 - Chronic obstructive pulmonary disease, unspecified Sepsis Qualifiers: Sepsis type: sepsis due to unspecified organism Qualified Code(s): A41.9 - Sepsis, unspecified organism Small cell lung cancer Qualifiers: Laterality: unspecified laterality Qualified Code(s): C34.90 - Malignant neoplasm of unspecified part of unspecified bronchus or lung Disposition: Admitted As Inpatient Condition: Fair Referrals: Ron Ward MD [Partnered Physician] - Forms: ED Satisfaction Letter Time of Disposition: 19:04 SOB HPI - General Chief Complaint: ED Shortness of Breath/Dyspnea Stated Complaint: NOHELIA Time Seen by Provider: 04/18/17 15:42 Source: patient Mode of arrival: ambulatory Limitations: no limitations Nursing Notes Reviewed: Yes Vital Signs Reviewed: Yes - History of Present Illness 61-year-old female history of small cell lung cancer, COPD oxygen dependent on 2 L with a recent hospitalization for COPD and pneumonia presents for evaluation of dyspnea. Patient states that she was recently discharged. Patient had an approximate 4-5 day hospital stay was discharged on Levaquin. Patient notes a operative cough. Worsening dyspnea since discharge. Patient denies any chest pain. No notable fevers. She states she completes chemotherapy approximately 2 weeks ago. Patient denies any nausea or vomiting. States she has been using her inhaler at home without significant improvement in her breathing. Patient is still a full code. Patient refuses BiPAP or noninvasive positive pressure ventilation. - Related Data Home Medications Medication Instructions Recorded Confirmed DULoxetine [Cymbalta] 30 mg PO HS 02/15/16 04/18/17 Trazodone HCl 200 mg PO HS 02/15/16 04/18/17 Albuterol Neb [Proventil Neb] 2.5 mg IH Q6H PRN 10/14/16 04/18/17 Albuterol Sulfate [Albuterol 2 puff IH Q6H PRN 10/14/16 04/18/17 Inhaler] Budesonide/Formoterol 160/4.5 2 puff IH BIDR 10/14/16 04/18/17 [Symbicort 160/4.5] Oxygen 2 l NS AD 10/14/16 04/18/17 Tiotropium [Spiriva] 18 mcg IH DAILY 10/14/16 04/18/17 Ascorbate Calcium [Vitamin C] 500 mg PO DAILY 12/14/16 04/18/17 Cholecalciferol (D-3) [Vitamin D] 5,000 unit PO DAILY 02/02/17 04/18/17 Melatonin [Melatin] 3 mg PO HS 02/02/17 04/18/17 GuaiFENesin/Dextromethorphan 1 each PO BID 02/19/17 04/18/17 [Mucinex Dm] OxyCODONE Immed Rel [Roxicodone 10 10 mg PO TID PRN 03/14/17 04/18/17 MG] Previous Rx's Medication Instructions Recorded Polyethylene Glycol 3350 [MiraLAX] 17 gm PO DAILY PRN #30 powd.pack 12/22/16 Sennosides/Docusate Sodium 2 each PO BID PRN #60 tablet 12/22/16 [Senna-Docusate Sodium Tablet] Calcium Carbonate/Vitamin D3 2 each PO DAILY #60 tablet 12/26/16 [Calcium 500 + Vit D Caplet] LORazepam [Ativan] 0.5 mg PO BID PRN 30 Days #60 03/21/17 tablet Magic Mouthwash [Magic Mouthwash 10 ml PO QID PRN #240 ml 04/02/17 BLM] Levofloxacin [Levaquin] 750 mg PO DAILY #8 tablet 04/17/17 predniSONE [PredniSONE] 10 mg PO DAILY #28 tablet 04/17/17 Allergies Allergy/AdvReac Type Severity Reaction Status Date / Time No Known Allergies Allergy Verified 03/21/17 11:10 All systems ED: reviewed and negative except as stated. Constitutional: Denies: fever Cardiovascular: Denies: chest pain Respiratory: Reports: cough, dyspnea. 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 - Social History Smoking Status: Former smoker Smokeless Tobacco Status: No Alcohol use: Reports: none Drug use: Reports: none Physical Exam - General Limitations: no limitations General appearance: alert, in no apparent distress - Head Head exam: atraumatic, normocephalic, normal inspection - Eye Eye exam: Present: normal appearance, PERRL, EOMI - ENT ENT exam: normal exam, normal oropharynx, mucous membranes moist - Neck Neck exam: Present: normal inspection, full ROM - Chest Chest inspection: Present: normal inspection, symmetric chest wall rise - Respiratory Respiratory exam: Present: respiratory distress, wheezes (Diffuse expiratory exophoria wheezes), accessory muscle use, prolonged expiratory phase - Cardiovascular Cardiovascular exam: Present: normal rhythm, tachycardia. Absent: systolic murmur - Abdominal Exam Abdominal exam: Present: soft, Non-Tender - Extremities Exam Extremities exam: Present: normal inspection. Absent: pedal edema - Back Exam Back exam: Present: normal inspection - Neurological Exam Neurological exam: Present: alert, oriented X3 - Skin Skin exam: Present: warm, dry, intact, normal color Course Course Narrative: Patient seen and examined patient appears to be in respiratory distress with increased work of breathing. Patient will get basic labs, EKG, Nebs steroids patient is a full code. Patient declines noninvasive positive ventilation at this time. Disposition admission Vital Signs Temperature 98.1 F 04/18/17 15:22 Pulse Rate 123 04/18/17 15:22 Respiratory Rate 28 04/18/17 15:22 Blood Pressure 116/76 04/18/17 15:22 O2 Sat by Pulse Oximetry 89 04/18/17 15:22 Temperature 98.1 F 04/18/17 15:22 Pulse Rate 112 04/18/17 18:33 Respiratory Rate 20 04/18/17 18:33 Blood Pressure 154/83 04/18/17 18:33 O2 Sat by Pulse Oximetry 94 04/18/17 18:33 Oxygen Delivery Oxygen Delivery Nasal Cannula Shortness of Breath/Dyspnea - [facility] Narrative Medical decision making narrative: Patient seen and examined. She had a recent discharge from the hospital first COPD pneumonia. Patient was on Levaquin. Patient did have increased work of breathing as well as increased O2 requirement at triage. Patient was treated with nebs and steroids. Patient would like to be intubated if it came down to that. Patient did not want any positive pressure ventilation. Patient's workup reveals resolving pneumonia however given the patient's clinical exam with increasing white count as well as increasing O2 requirement the patient would likely need admitted for respiratory support and IV antibiotics. - Lab Data Lab results reviewed: Yes I reviewed the patient's lab results. Result diagrams: 04/18/17 15:27 04/18/17 15:27 Lab Results 04/18/17 04/18/17 04/18/17 Range/Units 15:27 15:27 15:27 WBC 19.5 H (4.3-11.1) K/mcL RBC 4.34 (3.82-4.97) M/mcL Hgb 12.3 D (11.5-15.4) g/dL Hct 39.5 (35.3-44.9) % MCV 91.0 (83.0-100.0) fL MCH 28.3 (28.0-33.3) pg MCHC 31.1 L (31.6-35.5) g/dL RDW 14.7 H (11.5-14.5) % Plt Count 321 (140-400) K/mcL MPV 9.7 (9.4-12.4) fL Immature Gran % 4.4 H (0-4) % Seg Neutrophils % 69.0 % Lymphocytes % 20.3 % Monocytes % 5.6 % Eosinophils % 0.1 % Basophils % 0.6 % Neutrophils # 13.5 H (1.6-8.9) K/mcL Lymphocytes # 4.0 (0.6-4.6) K/mcL Monocytes # 1.1 (0.0-1.3) K/mcL Eosinophils # 0.0 (0.0-0.6) K/mcL Basophils # 0.1 (0.0-0.2) K/mcL Nucleated RBCs/100 WBC 0.2 H (0) /100 WBC VBG pH (7.32-7.42) pH Units VBG pCO2 (41-51) mmHg VBG pO2 (25-50) mmHg VBG HCO3 (21-27) mEq/L Sodium 139 (136-145) mEq/L Potassium 3.5 (3.5-5.1) mEq/L Chloride 102 (98-107) mEq/L Carbon Dioxide 30 H (23-29) mEq/L BUN 9 (8-23) mg/dL Creatinine 0.58 L (0.60-1.20) mg/dL Est GFR ( Amer) > 60 (> 60) Est GFR (Non-Af Amer) > 60 (> 60) BUN/Creatinine Ratio 16 (6-26) Glucose 96 (70-105) mg/dL Calculated Osmolality 287 (280-300) Lactic Acid (0.5-2.2) mmol/L Calcium 9.6 (8.6-10.3) mg/dL Troponin I 0.06 H* (< 0.04) ng/mL B-Natriuretic Peptide (Less than 100) pg/mL 04/18/17 04/18/17 04/18/17 Range/Units 15:28 16:12 17:09 WBC (4.3-11.1) K/mcL RBC (3.82-4.97) M/mcL Hgb (11.5-15.4) g/dL Hct (35.3-44.9) % MCV (83.0-100.0) fL MCH (28.0-33.3) pg MCHC (31.6-35.5) g/dL RDW (11.5-14.5) % Plt Count (140-400) K/mcL MPV (9.4-12.4) fL Immature Gran % (0-4) % Seg Neutrophils % % Lymphocytes % % Monocytes % % Eosinophils % % Basophils % % Neutrophils # (1.6-8.9) K/mcL Lymphocytes # (0.6-4.6) K/mcL Monocytes # (0.0-1.3) K/mcL Eosinophils # (0.0-0.6) K/mcL Basophils # (0.0-0.2) K/mcL Nucleated RBCs/100 WBC (0) /100 WBC VBG pH 7.38 (7.32-7.42) pH Units VBG pCO2 54 H (41-51) mmHg VBG pO2 48 (25-50) mmHg VBG HCO3 32 H (21-27) mEq/L Sodium (136-145) mEq/L Potassium (3.5-5.1) mEq/L Chloride (98-107) mEq/L Carbon Dioxide (23-29) mEq/L BUN (8-23) mg/dL Creatinine (0.60-1.20) mg/dL Est GFR ( Amer) (> 60) Est GFR (Non-Af Amer) (> 60) BUN/Creatinine Ratio (6-26) Glucose (70-105) mg/dL Calculated Osmolality (280-300) Lactic Acid 1.1 (0.5-2.2) mmol/L Calcium (8.6-10.3) mg/dL Troponin I (< 0.04) ng/mL B-Natriuretic Peptide 94 (Less than 100) pg/mL - Radiology Data Radiology results reviewed: Yes I reviewed the patient's radiology results. Chest X-Ray 04/18/17 15:27 IMPRESSION: Redemonstration of mildly improving right lower lobe infiltrate. Hyperinflation with COPD. Chronic compression injury with kyphotic deformity in the mid thoracic spine. D/ / 04/18/2017 16:06:39 [facility] Interpreting Provider: July Carrion MD - EKG Data EKG attestation: Yes I reviewed and interpreted this EKG. EKG shows normal: Reports: sinus rhythm Rate: Reports: tachycardia Rhythm: Reports: NSR Interpretation: Reports: no acute changes, nonspecific ST-T wave changes S.B.A.R. - S.B.A.Lisa Situation: Demographics Background: Presenting Complaint Assessment: Vital Signs, Course and respsone to treatment, Patient/Family Expectation Recommendation: Barrier(s) to disposition, Recommendation based on pending studies, treatments, or consults S.B.A.R. Report Given to: Hunter Issa Repor Time: 19:02 Attestation Statement - Attestation Attestation: I examined this patient and my medical decision-making was reviewed with the Resident Physician. I agree with the documented findings, disposition and treatment plan as described except to the extent set forth below. Patient to the ED with a chief complaint of shortness of breath. Patient just finished recent chemotherapy for small cell lung cancer. Recent pneumonia as well. She has diffuse wheezing and rhonchi on examination. She is in no respiratory distress. Plan. Patient was improving infiltrate. She is short of breath. Mildly improved with nebs. We will start antibiotic and admit.
[2017-04-18] MEDS ORDERED: 0.9 % Sodium Chloride 250 ML ONE (16:42)
[2017-04-18] MEDS ORDERED: Aspirin 81 MG TAB.CHEW PO ONE (16:53)
[2017-04-18 17:11] LABS: VBG HCO3 32 mEq/L (21-27); VBG PCO2 54 mmHg (41-51); VBG PH 7.38 pH Units (7.32-7.42); VBG PO2 48 mmHg (25-50)
[2017-04-18] MEDS ORDERED: Acetaminophen 325 MG TABLET PO PRN (23:24)
[2017-04-18] MEDS ORDERED: Naloxone 0.4 MG/ML INJ IVP PRN (23:24)
[2017-04-18] MEDS ORDERED: Sennosides/Docusate Sodium TABLET PO PRN (23:29)
[2017-04-18] MEDS ORDERED: Albuterol 2.5 MG/3 ML NEBULIZER IH PRN (23:29)
[2017-04-18] MEDS ORDERED: Magic Mouthwash 10 ML UD Cup PO PRN (23:29)
[2017-04-18] MEDS ORDERED: Ipratropium/Albuterol Neb 3 ML IH PRN (23:31)
--- NOTE | 2017-04-18 23:36 | Internal Med History&Physical ---
Date of Encounter: 04/18/17 Time of Encounter: 21:00 Assessment and Plan (1) Elevated troponin Current visit: Yes Status: Acute Mild elevated troponin with acute respiratory distress, patient denies chest pain. Consider demand ischemia. However, patient has shortness of breath, need to rule out ACS. - We will place this patient on continuous cardiac monitoring - 3 sets of troponin (2) Pneumonia Current visit: Yes Status: Acute Patient has just finished IV antibiotic treatment in hospital. Chest x-ray shows improving right lower lobe infiltrate. Will continue by mouth Levaquin to finish the scheduled course. Qualifiers: Pneumonia type: due to unspecified organism Laterality: right Lung location: unspecified part of lung Qualified Code(s): J18.9 - Pneumonia, unspecified organism (3) Small cell lung cancer Current visit: Yes Status: Acute Continue follow oncology as outpatient Qualifiers: Laterality: unspecified laterality Qualified Code(s): C34.90 - Malignant neoplasm of unspecified part of unspecified bronchus or lung (4) COPD exacerbation Current visit: No Status: Acute Patient has increased shortness of breath, respond to steroid and bronchodilator. - Continue by mouth antibiotic, steroid, and bronchodilator - Continue nasal cannula oxygen (5) DVT prophylaxis Current visit: No Status: Acute Lovenox SC (6) Acute and chronic respiratory failure Current visit: No Status: Resolved Improved after treatment. Continue oxygen supportive treatment Qualifiers: Respiratory failure complication: hypoxia Qualified Code(s): J96.21 - Acute and chronic respiratory failure with hypoxia (7) Leukocytosis Current visit: No Status: Resolved Most likely due to recent steroid use. Continue close monitoring Qualifiers: Leukocytosis type: unspecified Qualified Code(s): D72.829 - Elevated white blood cell count, unspecified Internal Medicine - H&P: HPI Chief complaint: SOB Admitted From: Home Plans for Post Hospital Care: Home History of present illness: Ms. Keenan is a 61 year old female with history of COPD, stage IV small cell lung cancer, recent pneumonia just discharged the from hospital yesterday, presented to ER for shortness of breath since this morning. Patient said shortness of breath gradually getting worse. Patient denies chest pain, nausea , or vomiting, or fever. Patient has mild cough with yellowish sputum which is about the same level with when she was discharged. In emergency room, she was treated with Solu-Medrol and DuoNeb, her shortness of breath has improved after treatment. Patient was admitted for further management. Past Med Surg Social Fam HX - Past Medical History Medical history: cancer, COPD, hypertension Psychiatric history: anxiety, depression - Past Surgical History Surgical History: hysterectomy - Social History Smoking Status: Former smoker Smokeless Tobacco Status: No Alcohol use: none Drug use: none - Family History Sister Family Member Ethnicity: Non- Living Status: Still Living Hx Family Cardiac Disorders: Yes (HTN) Hx Family Cancer: Yes (cervical) Mother Family Member Ethnicity: Non- Living Status: Hx Family Cardiac Disorders: Yes (HTN) Hx Family Respiratory Disorders: Yes (COPD) Father Adopted: No Family Member Ethnicity: Non- Living Status: Hx Family Cardiac Disorders: Yes (CHF, CAD, MD) Hx Family Respiratory Disorders: Yes (mother copd) Hx Family Cancer: No Hx Family GI Disorders: No Hx Family Endocrine Disorder: No Hx Family Neuromuscular Disorders: No Hx Family Neurologic Disorders: No Hx Family HEENT Disorders: No Hx Family Autoimmune Disorders: No Internal Medicine - H&P: Meds DULoxetine [Cymbalta] 30 mg PO HS 02/15/16 [History] Trazodone HCl 200 mg PO HS 02/15/16 [History] Albuterol Neb [Proventil Neb] 2.5 mg IH Q6H PRN 10/14/16 [History] Albuterol Sulfate [Albuterol Inhaler] 2 puff IH Q6H PRN 10/14/16 [History] Budesonide/Formoterol 160/4.5 [Symbicort 160/4.5] 2 puff IH BIDR 10/14/16 [ History] Oxygen 2 l NS AD 10/14/16 [History] Tiotropium [Spiriva] 18 mcg IH DAILY 10/14/16 [History] Ascorbate Calcium [Vitamin C] 500 mg PO DAILY 12/14/16 [History] Polyethylene Glycol 3350 [MiraLAX] 17 gm PO DAILY PRN #30 powd.pack 12/22/16 [Rx ] Sennosides/Docusate Sodium [Senna-Docusate Sodium Tablet] 2 each PO BID PRN #60 tablet 12/22/16 [Rx] Calcium Carbonate/Vitamin D3 [Calcium 500 + Vit D Caplet] 2 each PO DAILY #60 tablet 12/26/16 [Rx] Cholecalciferol (D-3) [Vitamin D] 5,000 unit PO DAILY 02/02/17 [History] Melatonin [Melatin] 3 mg PO HS 02/02/17 [History] GuaiFENesin/Dextromethorphan [Mucinex Dm] 1 each PO BID 02/19/17 [History] OxyCODONE Immed Rel [Roxicodone 10 MG] 10 mg PO TID PRN 03/14/17 [History] LORazepam [Ativan] 0.5 mg PO BID PRN 30 Days #60 tablet 03/21/17 [Rx] Magic Mouthwash [Magic Mouthwash BLM] 10 ml PO QID PRN #240 ml 04/02/17 [Rx] Levofloxacin [Levaquin] 750 mg PO DAILY #8 tablet 04/17/17 [Rx] predniSONE [PredniSONE] 10 mg PO DAILY #28 tablet 04/17/17 [Rx] 3 Allergy/AdvReac Type Severity Reaction Status Date / Time No Known Allergies Allergy Verified 03/21/17 11:10 All Systems PM: A 10-system review of systems was performed and is negative for pertinent findings except as documented above in the HPI. - Constitutional Vitals: Temp Pulse Resp BP Pulse Ox 98.1 F 105 16 136/83 96 04/18/17 21:35 04/18/17 21:35 04/18/17 21:35 04/18/17 21:35 04/18/17 21:35 General appearance: Present: A&O X 3, no acute distress, answers questions appropriately - Head Head exam: Present: atraumatic, normocephalic - Eye Eye exam: Present: PERRL, conjuntiva pink, sclera anicteric Pupils: Present: PERRL - Neck Neck exam general surgery: Present: supple, trachea midline. Absent: lymphadenopathy - Respiratory Respiratory exam: Present: CTAB. Absent: accessory muscle use, rales, rhonchi, wheezes Additional comments: Coarse breath sounds bilaterally - Cardiovascular Cardiovascular exam: Present: RRR, +S1, +S2. Absent: diastolic murmur, gallop, rubs, systolic murmur - GI/Abdominal GI/Abdominal exam: Present: normal bowel sounds, soft, no peritoneal signs. Absent: distended, tenderness - Extremities Exam Extremities exam: Present: warm, radial pulses palpable and symmetrical. Absent : calf tenderness, cyanotic, pedal edema - Neurological Exam Neurological exam: Present: CN II-XII intact, oriented X3, no focal deficits. Absent: pronater drift, facial droop, speech deficit - Skin Skin exam: Present: dry, intact Internal Med - H&P Results - Labs CBC & Chem 7: 04/18/17 15:27 04/18/17 15:27 - EKG Data -: EKG Interpreted by Myself EKG shows normal: sinus rhythm Rate: normal
[2017-04-18] MEDS: Melatonin 3 MG TABLET PO SCH (23:51)
[2017-04-18] MEDS: traZODone 50 MG TABLET PO SCH (23:51)
[2017-04-18] MEDS: 0.9 % Sodium Chloride 1,000 ML IVC SCH (23:51)
[2017-04-18] MEDS: *HR* LORazepam 0.5 MG TABLET PO PRN (23:53)
[2017-04-19 00:51] LABS: Basophils # 0.1 K/mcL (0.0-0.2); Basophils % 0.4 %; Immature Granulocytes % 4.3 % (0-4); Lymphocytes # 0.6 K/mcL (0.6-4.6); Lymphocytes % 5.2 %; Mean Corpuscular HGB Conc 30.6 g/dL (31.6-35.5); Mean Corpuscular Hemoglobin 28.4 pg (28.0-33.3); Mean Platelet Volume 9.8 fL (9.4-12.4); Monocytes # 0.1 K/mcL (0.0-1.3); Monocytes % 0.9 %; Neutrophils # 10.4 K/mcL (1.6-8.9); Platelet Count 295 K/mcL (140-400); Red Blood Count 3.87 M/mcL (3.82-4.97); Red Cell Distribution Width 14.8 % (11.5-14.5); Segmented Neutrophils % 89.2 %
[2017-04-19 01:24] LABS: BUN/Creatinine Ratio 22 (6-26); Blood Urea Nitrogen 14 mg/dL (8-23); Calcium 8.8 mg/dL (8.6-10.3); Carbon Dioxide 28 mEq/L (23-29); Chloride 106 mEq/L (98-107); Glucose 230 mg/dL (70-105); Osmolality,Calculated 302 (280-300); Potassium 4.5 mEq/L (3.5-5.1); Sodium 142 mEq/L (136-145); eGFR For African Americans > 60 (> 60); eGFR For Non-African Americans > 60 (> 60)
[2017-04-19] MEDS: Ipratropium/Albuterol Neb 3 ML IH SCH ×6 (03:57→23:42)
[2017-04-19] MEDS ORDERED: Ipratropium/Albuterol Neb 3 ML IH SCH (04:00)
[2017-04-19] MEDS: *HR* Enoxaparin 40 MG/0.4 ML SYRINGE SQ SCH (05:03)
[2017-04-19] MEDS: Budesonide/Formoterol 160/4.5 MDI IH SCH ×2 (07:44→20:14)
[2017-04-19] MEDS ORDERED: Albuterol 2.5 MG/3 ML NEBULIZER IH PRN (08:05)
[2017-04-19] MEDS: levoFLOXacin 750 MG TABLET PO SCH (08:50)
[2017-04-19] MEDS: predniSONE 20 MG TABLET PO SCH (08:50)
[2017-04-19] MEDS: GuaiFENesin/Dextromethorphan TABLET PO SCH ×2 (08:50→20:01)
[2017-04-19] MEDS: Ascorbic Acid 500 MG TABLET PO SCH (08:50)
[2017-04-19] MEDS ORDERED: Tiotropium 18 MCG inhalation IH SCH (10:00)
--- NOTE | 2017-04-19 11:28 | Internal Med Progress Note ---
Date of Encounter: 04/19/17 Time of Encounter: 11:24 - Assessment and plan (1) Elevated troponin Current Visit: Yes Status: Acute Assessment and plan: Mild elevated troponin with acute respiratory distress, patient denies chest pain. Consider demand ischemia. 2 trop < 0.03 (2) HTN (hypertension) Current Visit: No Status: Chronic Assessment and plan: continue home meds Qualifiers: Hypertension type: essential hypertension Qualified Code(s): I10 - Essential (primary) hypertension (3) Pneumonia Current Visit: No Status: Suspected Assessment and plan: contineu levaquin Qualifiers: Pneumonia type: due to other aerobic Gram-negative bacteria Laterality: right Lung location: middle lobe of lung Qualified Code(s): J15.6 - Pneumonia due to other Gram-negative bacteria (4) Chronic respiratory failure with hypoxia Current Visit: No Status: Acute Assessment and plan: on 2 L NC at home from COPD and lung cancer (5) Failure to thrive Current Visit: No Status: Chronic Assessment and plan: BMI 17.8 Qualifiers: Failure to thrive age range: in adult Qualified Code(s): R62.7 - Adult failure to thrive (6) Small cell lung cancer Current Visit: Yes Status: Acute Assessment and plan: Continue follow oncology as outpatient Qualifiers: Laterality: unspecified laterality Qualified Code(s): C34.90 - Malignant neoplasm of unspecified part of unspecified bronchus or lung (7) Acute exacerbation of chronic obstructive airways disease Current Visit: No Status: Resolved Assessment and plan: continue preddnisone, wheezing improved - Time Spent With Patient 25 - 35 minutes - Subjective Interval history: Ms. Keenan is a 61 year old female with history of COPD, stage IV small cell lung cancer, recent pneumonia just discharged the from hospital on 04/17, presented to ER for shortness of breath since this morning. Patient said shortness of breath gradually getting worse. Patient denies chest pain, nausea , or vomiting, or fever. Patient has mild cough with yellowish sputum which is about the same level with when she was discharged. In emergency room, she was treated with Solu-Medrol and DuoNeb, her shortness of breath has improved after treatment. Patient was admitted for further management. Patient is doing better, shortness of breath improved, she is on 2 L nasal cannula which is her home level of oxygen. No significant wheezing. She lives at home with her independently. Wears 2 L nasal cannula continuously. She denies chest pain no exertional shortness of breasts. Her troponin was 0.06 down to 0.032. - Constitutional Vitals: Temp Pulse Resp BP Pulse Ox 98.2 F 94 16 123/71 96 04/19/17 11:17 04/19/17 11:17 04/19/17 11:21 04/19/17 11:17 04/19/17 11:21 General appearance: Present: A&O X 3, no acute distress, answers questions appropriately Exam: CONSTITUTIONAL: patient appears as an age appropriate female in no acute distress. EYES Clear sclerae, bilateral pupils are equal, reactive to light. EMOI. RESPIRATORY: No accessory muscle use, bilateral scant wheezing to auscultation, no wheezing, no crackles/rales. CARDIOVASCULAR: Regular heart rate, normal S1 and S2, no murmurs GASTROINTESTINAL: bowel sounds present, soft, no tenderness. MUSCULOSKELETAL: Joints in normal range of motion, no clubbing, no edema, no cyanosis. Bilateral peripheral pulses 2+. NEUROLOGIC: CN II to XII are grossly intact, no focal neurological deficit. Internal Medicine: Result - Labs CBC & Chem 7: 04/18/17 23:58 04/18/17 23:58 Labs: Short CBC 04/18/17 Range/Units 23:58 WBC 11.6 H (4.3-11.1) K/mcL Hgb 11.0 L (11.5-15.4) g/dL Hct 36.0 (35.3-44.9) % Plt Count 295 (140-400) K/mcL Neutrophils # 10.4 H (1.6-8.9) K/mcL BMP 04/18/17 23:58 Sodium 142 Potassium 4.5 D Chloride 106 Carbon Dioxide 28 BUN 14 Creatinine 0.64 Glucose 230 H Calcium 8.8 Cardiac Enzymes 04/18/17 04/19/17 Range/Units 23:58 05:24 Troponin I < 0.03 < 0.03 (< 0.04) ng/mL Consult Discharge Plan - Plan Referrals: Ron Ward MD [Primary Care Provider] -
[2017-04-19] MEDS: *HR* OxyCODONE Immed Rel 5 MG TABLET PO PRN ×2 (12:11→18:55)
[2017-04-19] MEDS: 0.9 % Sodium Chloride 1,000 ML IVC SCH (12:12)
[2017-04-19] MEDS ORDERED: Ondansetron 4 MG/2 ML VIAL IVP PRN (13:35)
[2017-04-19] MEDS ORDERED: Piperacillin/Tazobactam 3.375 GM in 0.9 % Sodium Chloride Mini Bag 100 ML IVPB ONE (16:20)
[2017-04-19] MEDS: Melatonin 3 MG TABLET PO SCH (20:01)
[2017-04-19] MEDS: traZODone 50 MG TABLET PO SCH (20:01)
--- NOTE | 2017-04-19 20:02 | Electrocardiograph Report ---
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
[2017-04-19] MEDS: *HR* LORazepam 0.5 MG TABLET PO PRN (20:05)
--- NOTE | 2017-04-19 20:19 | Electrocardiograph Report ---
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
[2017-04-20] MEDS: Ipratropium/Albuterol Neb 3 ML IH SCH ×3 (03:27→11:18)
[2017-04-20] MEDS: Budesonide/Formoterol 160/4.5 MDI IH SCH (07:25)
[2017-04-20] MEDS: Ascorbic Acid 500 MG TABLET PO SCH (08:09)
[2017-04-20] MEDS: GuaiFENesin/Dextromethorphan TABLET PO SCH (08:09)
[2017-04-20] MEDS: levoFLOXacin 750 MG TABLET PO SCH (08:09)
[2017-04-20] MEDS: *HR* Enoxaparin 40 MG/0.4 ML SYRINGE SQ SCH (08:09)
[2017-04-20] MEDS: predniSONE 20 MG TABLET PO SCH (08:10)
[2017-04-20] MEDS: *HR* OxyCODONE Immed Rel 5 MG TABLET PO PRN (08:11)
[2017-04-20 10:47] VITALS: BP 128/77
--- NOTE | 2017-04-20 12:20 | Discharge Summary ---
Date of Encounter: 04/20/17 Time of Encounter: 12:15 - Discharge Diagnosis (1) Elevated troponin Priority: Secondary Status: Resolved (2) HTN (hypertension) Priority: Secondary Status: Chronic Qualifiers: Hypertension type: essential hypertension Qualified Code(s): I10 - Essential (primary) hypertension (3) Pneumonia Priority: Secondary Status: Resolved Qualifiers: Pneumonia type: due to other aerobic Gram-negative bacteria Laterality: right Lung location: middle lobe of lung Qualified Code(s): J15.6 - Pneumonia due to other Gram-negative bacteria (4) Chronic respiratory failure with hypoxia Priority: Secondary Status: Chronic (5) Failure to thrive Priority: Secondary Status: Chronic Qualifiers: Failure to thrive age range: in adult Qualified Code(s): R62.7 - Adult failure to thrive (6) Small cell lung cancer Priority: Secondary Status: Chronic Qualifiers: Laterality: unspecified laterality Qualified Code(s): C34.90 - Malignant neoplasm of unspecified part of unspecified bronchus or lung (7) Acute exacerbation of chronic obstructive airways disease Priority: Primary Status: Acute Hospital course: Ms. Keenan is a 61 year old female Ms. Keenan is a 61 year old female with history of COPD, stage IV small cell lung cancer, recent pneumonia just discharged the from hospital yesterday, presented to ER for shortness of breath since this morning. Patient said shortness of breath gradually getting worse. Patient denies chest pain, nausea , or vomiting, or fever. Patient has mild cough with yellowish sputum which is about the same level with when she was discharged. In emergency room, she was treated with Solu-Medrol and DuoNeb, her shortness of breath has improved after treatment. Patient was admitted for further management. Patient was treated for COPD exacerbation and pneumonia. She improved overnight, shortness of breath improved and no wheezings. Back to 2 L nasal cannula home O2 level. She is ready to go home Discharge on tapering steroids and the Levaquin for 8 days Discharge discussed with: patient Time spent discussing smoking cessation with patient: more than 10 minutes - Time Spent with Patient Total time spent providing and/or coordinating discharge services: Less than 30 minutes - Discharge Medications Prescriptions: Levofloxacin [Levaquin] 750 mg PO DAILY #8 tablet predniSONE [Prednisone] 10 mg PO DAILY #30 tab.ds.pk Home Medications: DULoxetine [Cymbalta] 30 mg PO HS 02/15/16 [History] Trazodone HCl 200 mg PO HS 02/15/16 [History] Albuterol Neb [Proventil Neb] 2.5 mg IH Q6H PRN 10/14/16 [History] Albuterol Sulfate [Albuterol Inhaler] 2 puff IH Q6H PRN 10/14/16 [History] Budesonide/Formoterol 160/4.5 [Symbicort 160/4.5] 2 puff IH BIDR 10/14/16 [ History] Oxygen 2 l NS AD 10/14/16 [History] Tiotropium [Spiriva] 18 mcg IH DAILY 10/14/16 [History] Ascorbate Calcium [Vitamin C] 500 mg PO DAILY 12/14/16 [History] Polyethylene Glycol 3350 [MiraLAX] 17 gm PO DAILY PRN #30 powd.pack 12/22/16 [Rx ] Sennosides/Docusate Sodium [Senna-Docusate Sodium Tablet] 2 each PO BID PRN #60 tablet 12/22/16 [Rx] Calcium Carbonate/Vitamin D3 [Calcium 500 + Vit D Caplet] 2 each PO DAILY #60 tablet 12/26/16 [Rx] Cholecalciferol (D-3) [Vitamin D] 5,000 unit PO DAILY 02/02/17 [History] Melatonin [Melatin] 3 mg PO HS 02/02/17 [History] GuaiFENesin/Dextromethorphan [Mucinex Dm] 1 each PO BID 02/19/17 [History] OxyCODONE Immed Rel [Roxicodone 10 MG] 10 mg PO TID PRN 03/14/17 [History] LORazepam [Ativan] 0.5 mg PO BID PRN 30 Days #60 tablet 03/21/17 [Rx] Magic Mouthwash [Magic Mouthwash BLM] 10 ml PO QID PRN #240 ml 04/02/17 [Rx] Levofloxacin [Levaquin] 750 mg PO DAILY #8 tablet 04/20/17 [Rx] predniSONE [Prednisone] 10 mg PO DAILY #30 tab.ds.pk 04/20/17 [Rx] Allergies/Adverse Reactions: 3 Allergy/AdvReac Type Severity Reaction Status Date / Time No Known Allergies Allergy Verified 03/21/17 11:10 Date of admission: 04/18/17 20:39 Primary care physician: Ron Ward MD Consults: 04/18/17 21:13 Consult to Nutrition [CONS] Routine Comment: Consulting Provider: NUTRITION Reason for Dietary Consult: MST Score Discharging clinician: Dayna Sabillon Anticipated date of discharge: 04/20/17 - Constitutional Vitals: Temp Pulse Resp BP Pulse Ox 98.0 F 103 22 128/77 94 04/20/17 10:44 04/20/17 10:44 04/20/17 11:18 04/20/17 10:44 04/20/17 11:18 General appearance: Present: A&O X 3, no acute distress, answers questions appropriately Exam: CONSTITUTIONAL: patient appears as an age appropriate female in no acute distress. EYES Clear sclerae, bilateral pupils are equal, reactive to light. EMOI. RESPIRATORY: No accessory muscle use, bilateral clear to auscultation, no wheezing, no crackles/rales. CARDIOVASCULAR: Regular heart rate, normal S1 and S2, no murmurs GASTROINTESTINAL: bowel sounds present, soft, no tenderness. MUSCULOSKELETAL: Joints in normal range of motion, no clubbing, no edema, no cyanosis. Bilateral peripheral pulses 2+. NEUROLOGIC: CN II to XII are grossly intact, no focal neurological deficit. - Patient Status Disposition: Home, Self-Care Functional capacity at discharge: independent ambulation Overall status at discharge: patient is back to baseline - Discharge Instructions Follow Up With: Ron Ward MD [Primary Care Provider] - - Diet and Activity Diet: advance to your usual diet
--- NOTE | 2017-04-20 12:47 | Physician Discharge Referral ---
Home Health/Hosp Referral Info Transfer to: Home Health Attending Provider: yuliya Provider in Charge Post Discharge: PCP - Diagnosis (1) Elevated troponin Priority: Secondary Status: Resolved (2) HTN (hypertension) Priority: Secondary Status: Chronic (3) Pneumonia Priority: Secondary Status: Resolved (4) Chronic respiratory failure with hypoxia Priority: Secondary Status: Chronic (5) Failure to thrive Priority: Secondary Status: Chronic (6) Small cell lung cancer Priority: Secondary Status: Chronic (7) Acute exacerbation of chronic obstructive airways disease Priority: Primary Status: Acute - Respiratory Orders Oxygen / L per min (2 L NC) Smoking Cessation: Smoking cessation has been advised. For more information, call the [place] Tobacco Quit Line at 5-047-OEVU-NOW. - Diet/Nutrition Diet/Nutrition Orders: Regular - Activity Activity Orders: Up ad em - Services Needed Following services are medically necessary services: Home Health Aide, Physical Therapy - Transfer Medications Prescriptions: Levofloxacin [Levaquin] 750 mg PO DAILY #8 tablet predniSONE [Prednisone] 10 mg PO DAILY #30 tab.ds.pk Home Medications: DULoxetine [Cymbalta] 30 mg PO HS 02/15/16 [History] Trazodone HCl 200 mg PO HS 02/15/16 [History] Albuterol Neb [Proventil Neb] 2.5 mg IH Q6H PRN 10/14/16 [History] Albuterol Sulfate [Albuterol Inhaler] 2 puff IH Q6H PRN 10/14/16 [History] Budesonide/Formoterol 160/4.5 [Symbicort 160/4.5] 2 puff IH BIDR 10/14/16 [ History] Oxygen 2 l NS AD 10/14/16 [History] Tiotropium [Spiriva] 18 mcg IH DAILY 10/14/16 [History] Ascorbate Calcium [Vitamin C] 500 mg PO DAILY 12/14/16 [History] Polyethylene Glycol 3350 [MiraLAX] 17 gm PO DAILY PRN #30 powd.pack 12/22/16 [Rx ] Sennosides/Docusate Sodium [Senna-Docusate Sodium Tablet] 2 each PO BID PRN #60 tablet 12/22/16 [Rx] Calcium Carbonate/Vitamin D3 [Calcium 500 + Vit D Caplet] 2 each PO DAILY #60 tablet 12/26/16 [Rx] Cholecalciferol (D-3) [Vitamin D] 5,000 unit PO DAILY 02/02/17 [History] Melatonin [Melatin] 3 mg PO HS 02/02/17 [History] GuaiFENesin/Dextromethorphan [Mucinex Dm] 1 each PO BID 02/19/17 [History] OxyCODONE Immed Rel [Roxicodone 10 MG] 10 mg PO TID PRN 03/14/17 [History] LORazepam [Ativan] 0.5 mg PO BID PRN 30 Days #60 tablet 03/21/17 [Rx] Magic Mouthwash [Magic Mouthwash BLM] 10 ml PO QID PRN #240 ml 04/02/17 [Rx] Levofloxacin [Levaquin] 750 mg PO DAILY #8 tablet 04/20/17 [Rx] predniSONE [Prednisone] 10 mg PO DAILY #30 tab.ds.pk 04/20/17 [Rx] Allergies/Adverse Reactions: 3 Allergy/AdvReac Type Severity Reaction Status Date / Time No Known Allergies Allergy Verified 03/21/17 11:10 Certification: Further, I certify that my clinical findings support that this patient is homebound (i.e. absences from home require considerable and taxing effort and are for medical reasons or [facility] or infrequently or short duration when for other reasons) because: Homebound Reason: Patient requires assistance of a person or device to safely leave home Attestation: My signature below is to certify that this patient is under my care and that I, or nurse practitioner, or a physician's assistant professor of physics working with me, has a face-to -face encounter with this patient.
== END 2017-04-20 12:52 | disposition home or self-care (01) ==
LOC: 2ANU 15:21 → EMEROO 15:21 → SUATTDRO 20:39 → 2ANU 21:01
PROVIDERS: ADMIT Hospitalist; ATTEND Hospitalist

== ENCOUNTER 2017-05-02 16:43 | Inpatient (IN) ==
[2017-05-02 17:44] LABS: Basophils % 0.3 %; Eosinophils # 0.1 K/mcL (0.0-0.6); Eosinophils % 0.9 %; Hematocrit 40.8 % (35.3-44.9); Hemoglobin 12.5 g/dL (11.5-15.4); Immature Granulocytes % 0.4 % (0-4); Lymphocytes # 4.1 K/mcL (0.6-4.6); Lymphocytes % 25.8 %; Mean Corpuscular HGB Conc 30.6 g/dL (31.6-35.5); Mean Corpuscular Hemoglobin 28.5 pg (28.0-33.3); Mean Corpuscular Volume 93.2 fL (83.0-100.0); Mean Platelet Volume 9.2 fL (9.4-12.4); Monocytes # 1.2 K/mcL (0.0-1.3); Monocytes % 7.6 %; Neutrophils # 10.4 K/mcL (1.6-8.9); Platelet Count 382 K/mcL (140-400); Red Blood Count 4.38 M/mcL (3.82-4.97); Red Cell Distribution Width 15.6 % (11.5-14.5)
[2017-05-02 17:56] LABS: BUN/Creatinine Ratio 22 (6-26); Blood Urea Nitrogen 11 mg/dL (8-23); Calcium 9.1 mg/dL (8.6-10.3); Carbon Dioxide 24 mEq/L (23-29); Chloride 106 mEq/L (98-107); Glucose 93 mg/dL (70-105); Osmolality,Calculated 285 (280-300); Potassium 3.9 mEq/L (3.5-5.1); Sodium 138 mEq/L (136-145); eGFR For African Americans > 60 (> 60); eGFR For Non-African Americans > 60 (> 60)
[2017-05-02 17:57] LABS: Troponin I < 0.03 ng/mL (< 0.04)
[2017-05-02] MEDS ORDERED: Levofloxacin 750 MG/150 ML 750 MG/150 ML BAG IVPB ONE (18:07)
[2017-05-02] MEDS ORDERED: Ipratropium/Albuterol Neb 3 ML IH ONE (18:08)
[2017-05-02] MEDS ORDERED: *HR* OxyCODONE/APAP 5/325 TABLET PO ONE (18:08)
[2017-05-02] MEDS ORDERED: methylPREDNISolone 125 MG/2 ML VIAL IVP ONE (18:09)
--- NOTE | 2017-05-02 18:13 | Emergency Department Note ---
Disposition Clinical Impression: Community acquired pneumonia Qualifiers: Laterality: right Lung location: lower lobe of lung Qualified Code(s): J18.1 - Lobar pneumonia, unspecified organism Disposition: Admitted As Inpatient Condition: Good Referrals: Ron Ward MD [Primary Care Provider] - Forms: ED Satisfaction Letter Time of Disposition: 19:11 General Adult HPI - General Chief complaint: ED Shortness of Breath/Dyspnea Stated complaint: "sob" Time Seen by Provider: 05/02/17 17:26 Source: patient, family Limitations: physical limitation Nursing Notes Reviewed: Yes Vital Signs Reviewed: Yes - History of Present Illness HPI Narrative: Patient was of chronic shortness of breath that has gotten worse today. She is recently treated for pneumonia with no resolution. She does have a productive cough with yellow sputum. Complaining of lower back pain that is chronic. She does have a history of lung cancer that she is undergoing treatment at this time for. Denies any fevers. Pain Scale: 0 - Related Data Home Medications Medication Instructions Recorded Confirmed DULoxetine [Cymbalta] 30 mg PO HS 02/15/16 05/02/17 Trazodone HCl 200 mg PO HS 02/15/16 05/02/17 Albuterol Neb [Proventil Neb] 2.5 mg IH Q6H PRN 10/14/16 05/02/17 Albuterol Sulfate [Albuterol 2 puff IH Q6H PRN 10/14/16 05/02/17 Inhaler] Budesonide/Formoterol 160/4.5 2 puff IH BIDR 10/14/16 05/02/17 [Symbicort 160/4.5] Oxygen 2 l NS AD 10/14/16 05/02/17 Tiotropium [Spiriva] 18 mcg IH DAILY 10/14/16 05/02/17 Ascorbate Calcium [Vitamin C] 500 mg PO DAILY 12/14/16 05/02/17 Cholecalciferol (D-3) [Vitamin D] 5,000 unit PO DAILY 02/02/17 05/02/17 Melatonin [Melatin] 3 mg PO HS 02/02/17 05/02/17 GuaiFENesin/Dextromethorphan 1 each PO BID 02/19/17 05/02/17 [Mucinex Dm] Previous Rx's Medication Instructions Recorded Polyethylene Glycol 3350 [MiraLAX] 17 gm PO DAILY PRN #30 powd.pack 12/22/16 Sennosides/Docusate Sodium 2 each PO BID PRN #60 tablet 12/22/16 [Senna-Docusate Sodium Tablet] Calcium Carbonate/Vitamin D3 2 each PO DAILY #60 tablet 12/26/16 [Calcium 500 + Vit D Caplet] LORazepam [Ativan] 0.5 mg PO BID PRN 30 Days #60 03/21/17 tablet Magic Mouthwash [Magic Mouthwash 10 ml PO QID PRN #240 ml 04/02/17 BLM] OxyCODONE Immed Rel [Roxicodone 10 10 mg PO TID PRN 30 Days #90 tablet 04/22/17 MG] Allergies Allergy/AdvReac Type Severity Reaction Status Date / Time No Known Allergies Allergy Verified 05/02/17 17:01 All systems ED: reviewed and negative except as stated. Constitutional: Denies: fever, chills Cardiovascular: Denies: chest pain, palpitations, syncope Respiratory: Reports: cough, dyspnea, wheezes, sputum production (Yellow-green) Gastrointestinal: Denies: abdominal pain, nausea, vomiting, diarrhea, hematemesis Genitourinary: Denies: urgency Musculoskeletal: Reports: back pain (Chronic) Integumentary: Denies: rash Neurological: Denies: headache, weakness Past Medical History - Past Medical History Attestation: Yes The following information was validated with the patient. Source: patient Medical history: Reports: cancer, COPD, hypertension Surgical history: Reports: hysterectomy Psychiatric history: Reports: anxiety, depression SENIOR RADIATION THERAPIST history: Reports: no SENIOR RADIATION THERAPIST history - Social History Smoking Status: Former smoker Smokeless Tobacco Status: No Alcohol use: Reports: none Drug use: Reports: none Physical Exam - General Limitations: physical limitation General appearance: alert, in no apparent distress - Head Head exam: atraumatic, normocephalic, normal inspection - Eye Eye exam: Present: normal appearance, PERRL, EOMI - ENT ENT exam: normal exam, normal oropharynx, mucous membranes moist - Neck Neck exam: Present: normal inspection, full ROM, trachea midline - Chest Chest inspection: Present: normal inspection, symmetric chest wall rise. Absent : tenderness - Respiratory Respiratory exam: Present: normal lung sounds bilaterally, respiratory distress , wheezes (Throughout) - Cardiovascular Cardiovascular exam: Present: regular rate, normal rhythm, normal heart sounds - Abdominal Exam Abdominal exam: Present: soft, Non-Tender. Absent: distention, rigidity - Extremities Exam Extremities exam: Present: normal inspection, full ROM. Absent: tenderness, pedal edema - Back Exam Back exam: Present: normal inspection, full ROM - Neurological Exam Neurological exam: Present: alert, oriented X3 - Psychiatric Psychiatric exam: Present: normal affect, normal mood - Skin Skin exam: Present: warm, dry, intact, normal color. Absent: rash Course Course Narrative: Female patient presenting to the emergency department complaining of shortness of breath. She does have COPD and lung cancer. She states she is generally short of breath however she has been significantly more short of breath today. She states she is just recently finished antibiotics for pneumonia as well as steroids yesterday. She has a right lower lobe pneumonia on chest x-ray. Her lung sounds are wheezing throughout. We will give her a DuoNeb while she is here. She is also requesting pain medication she has chronic lower back compression fractures. Her coughing has exacerbated pain. She states that she has a yellow to green sputum. She denies any fevers. She has no other complaints at this time. We will admit patient for failed outpatient therapy for her pneumonia. She is agreeable to this. - Consultations Consultation #1: Dr Perkins accepted patient in stable condition. Time: 19:12 Vital Signs Temperature 97.9 F 05/02/17 17:02 Pulse Rate 96 05/02/17 17:02 Respiratory Rate 24 05/02/17 17:02 Blood Pressure 98/67 05/02/17 17:02 O2 Sat by Pulse Oximetry 94 05/02/17 17:02 Temperature 97.9 F 05/02/17 17:02 Pulse Rate 96 05/02/17 17:02 Respiratory Rate 24 05/02/17 17:02 Blood Pressure 98/67 05/02/17 17:02 O2 Sat by Pulse Oximetry 94 05/02/17 17:02 Oxygen Delivery Oxygen Delivery Nasal Cannula Medical Decision Making - Medical Records Medical records reviewed: Yes I reviewed the patient's medical records. - Lab Data Lab results reviewed: Yes I reviewed the patient's lab results. Result diagrams: 05/02/17 17:21 05/02/17 17:21 Lab Results 05/02/17 05/02/17 05/02/17 Range/Units 17:21 17:21 17:21 WBC 16.0 H (4.3-11.1) K/mcL RBC 4.38 (3.82-4.97) M/mcL Hgb 12.5 (11.5-15.4) g/dL Hct 40.8 (35.3-44.9) % MCV 93.2 (83.0-100.0) fL MCH 28.5 (28.0-33.3) pg MCHC 30.6 L (31.6-35.5) g/dL RDW 15.6 H (11.5-14.5) % Plt Count 382 (140-400) K/mcL MPV 9.2 L (9.4-12.4) fL Immature Gran % 0.4 (0-4) % Seg Neutrophils % 65.0 % Lymphocytes % 25.8 % Monocytes % 7.6 % Eosinophils % 0.9 % Basophils % 0.3 % Neutrophils # 10.4 H (1.6-8.9) K/mcL Lymphocytes # 4.1 (0.6-4.6) K/mcL Monocytes # 1.2 (0.0-1.3) K/mcL Eosinophils # 0.1 (0.0-0.6) K/mcL Basophils # 0.0 (0.0-0.2) K/mcL Sodium 138 (136-145) mEq/L Potassium 3.9 (3.5-5.1) mEq/L Chloride 106 (98-107) mEq/L Carbon Dioxide 24 (23-29) mEq/L BUN 11 (8-23) mg/dL Creatinine 0.50 L (0.60-1.20) mg/dL Est GFR ( Amer) > 60 (> 60) Est GFR (Non-Af Amer) > 60 (> 60) BUN/Creatinine Ratio 22 (6-26) Glucose 93 (70-105) mg/dL Calculated Osmolality 285 (280-300) Lactic Acid (0.5-2.2) mmol/L Calcium 9.1 (8.6-10.3) mg/dL Troponin I < 0.03 (< 0.04) ng/mL B-Natriuretic Peptide 9 (Less than 100) pg/mL 05/02/17 Range/Units 17:26 WBC (4.3-11.1) K/mcL RBC (3.82-4.97) M/mcL Hgb (11.5-15.4) g/dL Hct (35.3-44.9) % MCV (83.0-100.0) fL MCH (28.0-33.3) pg MCHC (31.6-35.5) g/dL RDW (11.5-14.5) % Plt Count (140-400) K/mcL MPV (9.4-12.4) fL Immature Gran % (0-4) % Seg Neutrophils % % Lymphocytes % % Monocytes % % Eosinophils % % Basophils % % Neutrophils # (1.6-8.9) K/mcL Lymphocytes # (0.6-4.6) K/mcL Monocytes # (0.0-1.3) K/mcL Eosinophils # (0.0-0.6) K/mcL Basophils # (0.0-0.2) K/mcL Sodium (136-145) mEq/L Potassium (3.5-5.1) mEq/L Chloride (98-107) mEq/L Carbon Dioxide (23-29) mEq/L BUN (8-23) mg/dL Creatinine (0.60-1.20) mg/dL Est GFR ( Amer) (> 60) Est GFR (Non-Af Amer) (> 60) BUN/Creatinine Ratio (6-26) Glucose (70-105) mg/dL Calculated Osmolality (280-300) Lactic Acid 1.1 (0.5-2.2) mmol/L Calcium (8.6-10.3) mg/dL Troponin I (< 0.04) ng/mL B-Natriuretic Peptide (Less than 100) pg/mL - Radiology Data Radiology results reviewed: Yes I reviewed the patient's radiology results. Chest X-Ray 05/02/17 17:07 IMPRESSION: Right lower lobe infiltrate. Follow up to resolution is suggested. Healing right-sided rib fracture. D/ / 05/02/2017 17:40:06 Nicole Verma MD / [facility] Interpreting Provider: Nicole Verma MD - EKG Data EKG #1 EKG attestation: Yes I reviewed and interpreted this EKG. EKG results narrative: normal sinus rhythm at a rate of 96. NE interval is 136. QRS duration is 74. QT is 341. QTC Is 395. No signs of acute ischemia Attestation Statement - Attestation Attestation: I examined this patient and my medical decision-making was reviewed with the Resident Physician. I agree with the documented findings, disposition and treatment plan as described except to the extent set forth below. I dr luna saw and evaluated the patient. She does have evidence of a right- sided pneumonia. Her symptoms are consistent with that. We have ordered blood cultures as well as lab work as well as and vancomycin DuoNeb treatments. Zosyn
[2017-05-02] MEDS ORDERED: Piperacillin/Tazobactam 3.375 GM in 0.9 % Sodium Chloride Mini Bag 100 ML IVPB ONE (18:35)
[2017-05-02] MEDS ORDERED: 0.9 % Sodium Chloride Mini Bag 100 ML ONE (19:05)
[2017-05-02] MEDS ORDERED: Naloxone 0.4 MG/ML INJ IVP PRN (19:46)
[2017-05-02] MEDS ORDERED: Acetaminophen 325 MG TABLET PO PRN (19:46)
[2017-05-02] MEDS ORDERED: Ipratropium/Albuterol Neb 3 ML IH PRN (19:51)
[2017-05-02] MEDS ORDERED: Sennosides/Docusate Sodium TABLET PO PRN (19:52)
[2017-05-02] MEDS ORDERED: Magic Mouthwash 10 ML UD Cup PO PRN (19:52)
--- NOTE | 2017-05-02 19:57 | Internal Med History&Physical ---
Date of Encounter: 05/02/17 Time of Encounter: 19:00 Assessment and Plan (1) Acute exacerbation of COPD with asthma Current visit: No Status: Acute Patient has increased shortness of breath. History of COPD. Shortness of breath has improved after steroid and bronchodilator treatment in ER. Patient said she is taking prednisone at home but does not know the exact dose. - Place patient on antibiotic, steroid, and bronchodilator treatment. - Continue oxygen supportive treatment - Continue closely monitor patient (2) Healthcare-associated pneumonia Current visit: No Status: Acute Chest x-ray shows a right lower lobar pneumonia. Will treat patient with Vanco , Zosyn, and Levaquin. Follow-up of blood and sputum culture (3) Small cell 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 Current visit: No Status: Chronic Continue follow-up with oncology as outpatient (4) DVT prophylaxis Current visit: No Status: Acute Lovenox subcutaneously Internal Medicine - H&P: HPI Chief complaint: Shortness of breath Admitted From: Home Plans for Post Hospital Care: Home History of present illness: Ms. Keenan is a 61 year old female with history of COPD, tobacco abuse, small cell lung cancer with liver, bone metastasis and possible brain metastasis , presented to ER for increased shortness of breath. Patient uses home oxygen 2 L/m at home. Patient complaining of increased shortness of breath since yesterday. The shortness of breath is even worsen today. Patient has cough with greenish sputum. Patient denies fever, chest pain, nausea, or vomiting. In emergency room, chest x-ray shows right lower lobe pneumonia. Patient was admitted for healthcare associated pneumonia because of recent hospitalization. Past Med Surg Social Fam HX - Past Medical History Medical history: cancer, COPD, hypertension Psychiatric history: anxiety, depression - Past Surgical History Surgical History: hysterectomy - Social History Smoking Status: Former smoker Smokeless Tobacco Status: No Alcohol use: none Drug use: none - Family History Sister Family Member Ethnicity: Non- Living Status: Still Living Hx Family Cardiac Disorders: Yes (HTN) Hx Family Cancer: Yes (cervical) Mother Family Member Ethnicity: Non- Living Status: Hx Family Cardiac Disorders: Yes (HTN) Hx Family Respiratory Disorders: Yes (COPD) Father Adopted: No Family Member Ethnicity: Non- Living Status: Hx Family Cardiac Disorders: Yes (CHF, CAD, [place]) Hx Family Respiratory Disorders: Yes (mother copd) Hx Family Cancer: No Hx Family GI Disorders: No Hx Family Endocrine Disorder: No Hx Family Neuromuscular Disorders: No Hx Family Neurologic Disorders: No Hx Family HEENT Disorders: No Hx Family Autoimmune Disorders: No Internal Medicine - H&P: Meds DULoxetine [Cymbalta] 30 mg PO HS 02/15/16 [History] Trazodone HCl 200 mg PO HS 02/15/16 [History] Albuterol Neb [Proventil Neb] 2.5 mg IH Q6H PRN 10/14/16 [History] Albuterol Sulfate [Albuterol Inhaler] 2 puff IH Q6H PRN 10/14/16 [History] Budesonide/Formoterol 160/4.5 [Symbicort 160/4.5] 2 puff IH BIDR 10/14/16 [ History] Oxygen 2 l NS AD 10/14/16 [History] Tiotropium [Spiriva] 18 mcg IH DAILY 10/14/16 [History] Ascorbate Calcium [Vitamin C] 500 mg PO DAILY 12/14/16 [History] Polyethylene Glycol 3350 [MiraLAX] 17 gm PO DAILY PRN #30 powd.pack 12/22/16 [Rx ] Sennosides/Docusate Sodium [Senna-Docusate Sodium Tablet] 2 each PO BID PRN #60 tablet 12/22/16 [Rx] Calcium Carbonate/Vitamin D3 [Calcium 500 + Vit D Caplet] 2 each PO DAILY #60 tablet 12/26/16 [Rx] Cholecalciferol (D-3) [Vitamin D] 5,000 unit PO DAILY 02/02/17 [History] Melatonin [Melatin] 3 mg PO HS 02/02/17 [History] GuaiFENesin/Dextromethorphan [Mucinex Dm] 1 each PO BID 02/19/17 [History] LORazepam [Ativan] 0.5 mg PO BID PRN 30 Days #60 tablet 03/21/17 [Rx] Magic Mouthwash [Magic Mouthwash BLM] 10 ml PO QID PRN #240 ml 04/02/17 [Rx] OxyCODONE Immed Rel [Roxicodone 10 MG] 10 mg PO TID PRN 30 Days #90 tablet 04/22 [Rx] 3 Allergy/AdvReac Type Severity Reaction Status Date / Time No Known Allergies Allergy Verified 05/02/17 17:01 All Systems PM: A 10-system review of systems was performed and is negative for pertinent findings except as documented above in the HPI. - Constitutional Vitals: Temp Pulse Resp BP Pulse Ox 97.9 F 96 24 98/67 94 05/02/17 17:02 05/02/17 17:02 05/02/17 17:02 05/02/17 17:02 05/02/17 17:02 General appearance: Present: mild distress, A&O X 3, answers questions appropriately - Head Head exam: Present: atraumatic, normocephalic - Eye Eye exam: Present: PERRL, conjuntiva pink, sclera anicteric Pupils: Present: PERRL - Neck Neck exam general surgery: Present: supple, trachea midline. Absent: lymphadenopathy - Respiratory Respiratory exam: Present: CTAB. Absent: accessory muscle use, rales, rhonchi, wheezes Additional comments: Coarse breath sounds bilaterally. - Cardiovascular Cardiovascular exam: Present: RRR, +S1, +S2, tachycardia. Absent: diastolic murmur, gallop, rubs, systolic murmur - GI/Abdominal GI/Abdominal exam: Present: normal bowel sounds, soft, no peritoneal signs. Absent: distended, tenderness - Extremities Exam Extremities exam: Present: warm, radial pulses palpable and symmetrical. Absent : calf tenderness, cyanotic, pedal edema - Neurological Exam Neurological exam: Present: CN II-XII intact, oriented X3, no focal deficits. Absent: pronater drift, facial droop, speech deficit - Skin Skin exam: Present: dry, intact Internal Med - H&P Results - Labs CBC & Chem 7: 05/02/17 17:21 05/02/17 17:21 Labs: Short CBC 05/02/17 Range/Units 17:21 WBC 16.0 H (4.3-11.1) K/mcL Hgb 12.5 (11.5-15.4) g/dL Hct 40.8 (35.3-44.9) % Plt Count 382 (140-400) K/mcL Neutrophils # 10.4 H (1.6-8.9) K/mcL BMP 05/02/17 17:21 Sodium 138 Potassium 3.9 Chloride 106 Carbon Dioxide 24 BUN 11 Creatinine 0.50 L Glucose 93 Calcium 9.1 Cardiac Enzymes 05/02/17 Range/Units 17:21 Troponin I < 0.03 (< 0.04) ng/mL - Impressions ITS Impressions Chest X-Ray 05/02/17 17:07 IMPRESSION: Right lower lobe infiltrate. Follow up to resolution is suggested. Healing right-sided rib fracture. D/ / 05/02/2017 17:40:06 Nicole Verma MD / [facility] Interpreting Provider: Nicole Verma MD
[2017-05-02] MEDS: Ipratropium/Albuterol Neb 3 ML IH SCH ×2 (21:35→23:08)
[2017-05-02] MEDS: Nicotine 21 MG PATCH.TD24 TD SCH (22:57)
[2017-05-02] MEDS: GuaiFENesin/Dextromethorphan TABLET PO SCH (23:02)
[2017-05-02] MEDS: traZODone 50 MG TABLET PO SCH (23:02)
[2017-05-02] MEDS: Melatonin 3 MG TABLET PO SCH (23:02)
[2017-05-02] MEDS: *HR* LORazepam 0.5 MG TABLET PO PRN (23:02)
[2017-05-02] MEDS: Budesonide/Formoterol 160/4.5 MDI IH SCH (23:08)
[2017-05-03] MEDS ORDERED: Piperacillin/Tazobactam 3.375 GM in 0.9 % Sodium Chloride Mini Bag 100 ML IVPB SCH
[2017-05-03] MEDS: Piperacillin/Tazobactam 3.375 GM in 0.9 % Sodium Chloride Mini Bag 100 ML IVPB SCH ×3 (03:16→20:44)
[2017-05-03 04:08] LABS: Hematocrit 35.7 % (35.3-44.9); Immature Granulocytes % 0.3 % (0-4); Lymphocytes # 0.4 K/mcL (0.6-4.6); Lymphocytes % 9.9 %; Mean Corpuscular HGB Conc 30.8 g/dL (31.6-35.5); Mean Corpuscular Hemoglobin 28.6 pg (28.0-33.3); Mean Platelet Volume 9.2 fL (9.4-12.4); Monocytes # 0.1 K/mcL (0.0-1.3); Monocytes % 1.3 %; Neutrophils # 3.5 K/mcL (1.6-8.9); Platelet Count 295 K/mcL (140-400); Red Blood Count 3.84 M/mcL (3.82-4.97); Red Cell Distribution Width 15.6 % (11.5-14.5); Segmented Neutrophils % 88.5 %
[2017-05-03] MEDS: Ipratropium/Albuterol Neb 3 ML IH SCH ×6 (04:15→23:44)
[2017-05-03 04:29] LABS: BUN/Creatinine Ratio 25 (6-26); Blood Urea Nitrogen 14 mg/dL (8-23); Calcium 9.1 mg/dL (8.6-10.3); Carbon Dioxide 26 mEq/L (23-29); Chloride 109 mEq/L (98-107); Glucose 216 mg/dL (70-105); Magnesium 2.1 mg/dL (1.6-2.6); Osmolality,Calculated 293 (280-300); Potassium 4.7 mEq/L (3.5-5.1); Sodium 138 mEq/L (136-145); eGFR For African Americans > 60 (> 60); eGFR For Non-African Americans > 60 (> 60)
[2017-05-03] MEDS: *HR* Enoxaparin 40 MG/0.4 ML SYRINGE SQ SCH (05:08)
[2017-05-03] MEDS: Budesonide/Formoterol 160/4.5 MDI IH SCH ×2 (07:53→20:07)
[2017-05-03] MEDS: GuaiFENesin/Dextromethorphan TABLET PO SCH ×2 (09:21→20:44)
[2017-05-03] MEDS: Ascorbic Acid 500 MG TABLET PO SCH (09:21)
[2017-05-03] MEDS: Cholecalciferol (D-3) 1,000 UNIT TABLET PO SCH (09:21)
[2017-05-03] MEDS: Nicotine 21 MG PATCH.TD24 TD SCH (09:21)
[2017-05-03] MEDS: predniSONE 20 MG TABLET PO SCH (09:21)
[2017-05-03] MEDS: *HR* OxyCODONE Immed Rel 5 MG TABLET PO PRN ×2 (09:22→17:10)
[2017-05-03] MEDS ORDERED: Tiotropium 18 MCG inhalation IH SCH (10:00)
[2017-05-03] MEDS: *HR* LORazepam 0.5 MG TABLET PO PRN ×2 (13:22→20:44)
[2017-05-03] MEDS ORDERED: Levofloxacin 750 MG/150 ML 750 MG/150 ML BAG IVPB SCH (18:00)
[2017-05-03] MEDS: Melatonin 3 MG TABLET PO SCH (20:44)
[2017-05-03] MEDS: traZODone 50 MG TABLET PO SCH (20:44)
--- NOTE | 2017-05-03 23:53 | Internal Med Progress Note ---
Date of Encounter: 05/03/17 Time of Encounter: 23:53 - Assessment and plan (1) Acute exacerbation of chronic obstructive airways disease Current Visit: Yes Status: Acute Assessment and plan: Looks to be getting close to baseline. Continue steroids and nebs. Continue antibiotics as per below. Continue supplemental oxygen. Monitor closely. (2) HCAP (healthcare-associated pneumonia) Current Visit: Yes Status: Acute Assessment and plan: Chest x-ray shows a right lower lobar pneumonia. Continue IV Zosyn and IV Levaquin. Follow-up on blood and sputum cultures. (3) Small cell 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 Current Visit: Yes Status: Chronic Assessment and plan: Spoke with oncologist [employer] Scarlet Constantino given evidence of new metastasis to brain. She advised that patient has oncology appointment as outpatient on Saturday to discuss radiation. They will update her on her prognosis and treatment options at that time. (4) Chronic respiratory failure with hypoxia Current Visit: Yes Status: Chronic Assessment and plan: Treating as per above. Continue home supplemental O2. (5) DVT prophylaxis Current Visit: Yes Status: Acute Assessment and plan: Continue SC lovenox. - Time Spent With Patient less than 15 minutes - Subjective Interval history: Patient had no acute events overnight after admission. She is feeling better today; almost back to baseline. She denies fever, chills, chest pain, or SOB. She would like to keep oncology appointment to discuss radiation as scheduled as outpatient this Saturday. I advised her that we would try to get her home as soon as she is medically stable. She is on home O2 2L by [place]. She has no new complaints. - Constitutional Vitals: Temp Pulse Resp BP Pulse Ox 97.9 F 106 18 96/54 95 05/03/17 21:16 05/03/17 21:16 05/03/17 21:16 05/03/17 21:16 05/03/17 21:16 General appearance: Present: cooperative, A&O X 3, pleasant, no acute distress, answers questions appropriately - Respiratory Respiratory exam: Present: CTAB. Absent: accessory muscle use, rales, rhonchi, wheezes Additional comments: Normal WOB - Cardiovascular Cardiovascular exam: Present: RRR, +S1, +S2. Absent: diastolic murmur, gallop, rubs, systolic murmur Additional comments: No BLE edema - GI/Abdominal GI/Abdominal exam: Present: normal bowel sounds, soft. Absent: distended, hepatomegaly, mass, splenomegaly, tenderness - Psychiatric Psychiatric exam: Present: normal affect, normal mood. Absent: anxious, depressed - Skin Skin exam: Present: dry, intact, warm. Absent: cyanosis, rash Internal Medicine: Result - Labs CBC & Chem 7: 05/03/17 03:53 05/03/17 03:53 Labs: Short CBC 05/03/17 Range/Units 03:53 WBC 3.9 L D (4.3-11.1) K/mcL Hgb 11.0 L D (11.5-15.4) g/dL Hct 35.7 (35.3-44.9) % Plt Count 295 (140-400) K/mcL Neutrophils # 3.5 (1.6-8.9) K/mcL BMP 05/03/17 03:53 Sodium 138 Potassium 4.7 Chloride 109 H Carbon Dioxide 26 BUN 14 Creatinine 0.57 L Glucose 216 H Calcium 9.1 Consult Discharge Plan - Plan Referrals: Ron Ward MD [Primary Care Provider] -
[2017-05-04] MEDS: Piperacillin/Tazobactam 3.375 GM in 0.9 % Sodium Chloride Mini Bag 100 ML IVPB SCH ×2 (03:39→12:02)
[2017-05-04] MEDS: *HR* OxyCODONE Immed Rel 5 MG TABLET PO PRN ×2 (03:42→16:19)
[2017-05-04] MEDS: Ipratropium/Albuterol Neb 3 ML IH SCH ×4 (04:00→15:49)
[2017-05-04] MEDS: *HR* Enoxaparin 40 MG/0.4 ML SYRINGE SQ SCH (05:00)
[2017-05-04] MEDS: Budesonide/Formoterol 160/4.5 MDI IH SCH (07:48)
[2017-05-04] MEDS: GuaiFENesin/Dextromethorphan TABLET PO SCH (08:42)
[2017-05-04] MEDS: Cholecalciferol (D-3) 1,000 UNIT TABLET PO SCH (08:43)
[2017-05-04] MEDS: Nicotine 21 MG PATCH.TD24 TD SCH (08:43)
[2017-05-04] MEDS: predniSONE 20 MG TABLET PO SCH (08:43)
[2017-05-04] MEDS: Ascorbic Acid 500 MG TABLET PO SCH (08:43)
[2017-05-04 10:12] LABS: Basophils % 0.2 %; Eosinophils % 0.3 %; Hematocrit 34.8 % (35.3-44.9); Immature Granulocytes % 0.3 % (0-4); Lymphocytes # 2.6 K/mcL (0.6-4.6); Lymphocytes % 29.6 %; Mean Corpuscular HGB Conc 31.6 g/dL (31.6-35.5); Mean Corpuscular Hemoglobin 29.2 pg (28.0-33.3); Mean Corpuscular Volume 92.3 fL (83.0-100.0); Mean Platelet Volume 9.6 fL (9.4-12.4); Monocytes # 0.5 K/mcL (0.0-1.3); Neutrophils # 5.5 K/mcL (1.6-8.9); Platelet Count 274 K/mcL (140-400); Red Blood Count 3.77 M/mcL (3.82-4.97); Red Cell Distribution Width 15.9 % (11.5-14.5); Segmented Neutrophils % 63.6 %
[2017-05-04 10:36] LABS: BUN/Creatinine Ratio 18 (6-26); Blood Urea Nitrogen 12 mg/dL (8-23); Calcium 8.7 mg/dL (8.6-10.3); Carbon Dioxide 28 mEq/L (23-29); Chloride 107 mEq/L (98-107); Glucose 154 mg/dL (70-105); Osmolality,Calculated 293 (280-300); Potassium 3.2 mEq/L (3.5-5.1); Sodium 140 mEq/L (136-145); eGFR For African Americans > 60 (> 60); eGFR For Non-African Americans > 60 (> 60)
[2017-05-04] MEDS: *HR* LORazepam 0.5 MG TABLET PO PRN (12:02)
[2017-05-04 15:10] VITALS: BP 122/79
--- NOTE | 2017-05-04 16:04 | Discharge Summary ---
- NOTES TO OUTPATIENT PROVIDER Notes to Outpatient Provider: Follow up with new PCP in 2-3 days after discharge. Recheck BMP at follow up to ensure resolution of hypokalemia. Follow up with oncology on 05/06/17 as scheduled. Date of Encounter: 05/04/17 Time of Encounter: 16:02 - Discharge Diagnosis (1) Acute exacerbation of chronic obstructive airways disease Priority: Primary Status: Acute (2) HCAP (healthcare-associated pneumonia) Priority: Secondary Status: Acute (3) Small cell 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 Priority: Secondary Status: Chronic (4) Chronic respiratory failure with hypoxia Priority: Secondary Status: Chronic (5) Hypokalemia Priority: Secondary Status: Acute Comments: K = 3.2 this AM. Give KCl 40 mEq PO once. Recheck BMP at hospital follow up appointment with PCP in 2-3 days after discharge. (6) DVT prophylaxis Priority: Secondary Status: Acute Hospital course: Ms. Keenan is a 61 year old female with history of small cell lung cancer with metastasis and chronic respiratory failure who was admitted for acute exacerbation of COPD and HCAP. She was admitted to general medical floor with telemetry. She was started on prednisone 40 mg PO QD. She was started on duonebs scheduled Q6H. She was started on IV levaquin and IV zosyn. She was placed on supplemental oxygen and remained on her home level of 3 L by NM throughout admission. The day after admission, patient was continuing to have symptoms of SOB, but no wheezing or hypoxemia. Blood cultures x 2 were no growth preliminary on day of discharge. Oncology was consulted due to new metastases to the brain found during this admission. They advised me to tell patient to keep outpatient appointment already scheduled on 05/06/17, and they will discuss further prognosis and treatment options at that time. She had mild hypokalemia on day of discharge to K = 3.2. She will be given 40 mEq KCl PO once. Repeat BMP can be obtain when she sees her PCP for follow up in 2-3 days after discharge. On the day of discharge, she states that she is back to her baseline respiratory status, and she wants to go home. She will be discharged home today on levaquin 750 mg PO QD x 5 days and prednisone taper. Patient has met maximum benefit of this hospitalization and will be discharged home in stable condition. Discharge discussed with: patient, family, nurse - Time Spent with Patient Total time spent providing and/or coordinating discharge services: Greater than 30 minutes - Discharge Medications Prescriptions: Albuterol Neb [Proventil Neb] 2.5 mg IH Q6H PRN 7 Days #30 vial PRN Reason: Shortness Of Breath levoFLOXacin [Levaquin] 750 mg PO DAILY 5 Days #5 tablet predniSONE [PredniSONE] See Taper PO DAILY 12 Days #30 tablet Home Medications: DULoxetine [Cymbalta] 30 mg PO HS 02/15/16 [History] Trazodone HCl 200 mg PO HS 02/15/16 [History] Albuterol Sulfate [Albuterol Inhaler] 2 puff IH Q6H PRN 10/14/16 [History] Budesonide/Formoterol 160/4.5 [Symbicort 160/4.5] 2 puff IH BIDR 10/14/16 [ History] Oxygen 2 l NS AD 10/14/16 [History] Tiotropium [Spiriva] 18 mcg IH DAILY 10/14/16 [History] Ascorbate Calcium [Vitamin C] 500 mg PO DAILY 12/14/16 [History] Polyethylene Glycol 3350 [MiraLAX] 17 gm PO DAILY PRN #30 powd.pack 12/22/16 [Rx ] Sennosides/Docusate Sodium [Senna-Docusate Sodium Tablet] 2 each PO BID PRN #60 tablet 12/22/16 [Rx] Calcium Carbonate/Vitamin D3 [Calcium 500 + Vit D Caplet] 2 each PO DAILY #60 tablet 12/26/16 [Rx] Cholecalciferol (D-3) [Vitamin D] 5,000 unit PO DAILY 02/02/17 [History] Melatonin [Melatin] 3 mg PO HS 02/02/17 [History] GuaiFENesin/Dextromethorphan [Mucinex Dm] 1 each PO BID 02/19/17 [History] LORazepam [Ativan] 0.5 mg PO BID PRN 30 Days #60 tablet 03/21/17 [Rx] Magic Mouthwash [Magic Mouthwash BLM] 10 ml PO QID PRN #240 ml 04/02/17 [Rx] OxyCODONE Immed Rel [Roxicodone 10 MG] 10 mg PO TID PRN 30 Days #90 tablet 04/22 [Rx] Albuterol Neb [Proventil Neb] 2.5 mg IH Q6H PRN 7 Days #30 vial 05/04/17 [Rx] levoFLOXacin [Levaquin] 750 mg PO DAILY 5 Days #5 tablet 05/04/17 [Rx] predniSONE [PredniSONE] See Taper PO DAILY 12 Days #30 tablet 05/04/17 [Rx] Allergies/Adverse Reactions: 3 Allergy/AdvReac Type Severity Reaction Status Date / Time No Known Allergies Allergy Verified 05/02/17 17:01 Date of admission: 05/03/17 00:16 Primary care physician: Ron Ward MD Consults: 05/04/17 00:28 Consult to Oncology [CONS] Routine Consulting Provider: Scarlet Constantino Reason for Consult: Small Cell Lung Cancer with Metastases. New metastasis to brain. Time Notified: 12:00 Call Completed: Yes Discharging clinician: Antoine Zheng Anticipated date of discharge: 05/04/17 - Constitutional Vitals: Temp Pulse Resp BP Pulse Ox 97.9 F 116 14 122/79 94 05/04/17 15:00 05/04/17 15:00 05/04/17 15:00 05/04/17 15:00 05/04/17 15:00 General appearance: Present: cooperative, A&O X 3, pleasant, no acute distress, answers questions appropriately - Respiratory Respiratory exam: Present: CTAB. Absent: accessory muscle use, rales, rhonchi, wheezes Additional comments: Normal WOB - Cardiovascular Cardiovascular exam: Present: RRR, +S1, +S2. Absent: diastolic murmur, gallop, rubs, systolic murmur - GI/Abdominal GI/Abdominal exam: Present: normal bowel sounds, soft. Absent: distended, hepatomegaly, mass, splenomegaly, tenderness - Psychiatric Psychiatric exam: Present: normal affect, normal mood. Absent: anxious, depressed - Skin Skin exam: Present: dry, intact, warm. Absent: cyanosis, rash - Patient Status Disposition: Home Health Service Condition: Good Overall status at discharge: patient is progressing back to baseline - Discharge Instructions Follow Up With: Ron Ward MD [Primary Care Provider] - Additional Instructions: Follow up with new PCP in 2-3 days after discharge. Recheck BMP at follow up to ensure resolution of hypokalemia. Follow up with oncology on 05/06/17 as scheduled. - Diet and Activity Activity: resume usual activities as tolerated Diet: advance to your usual diet
--- NOTE | 2017-05-04 16:37 | Physician Discharge Referral ---
Home Health/Hosp Referral Info Transfer to: Home Health Provider in Charge Post Discharge: PCP - Diagnosis (1) Acute exacerbation of chronic obstructive airways disease Priority: Primary Status: Acute (2) HCAP (healthcare-associated pneumonia) Priority: Secondary Status: Acute (3) Small cell 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 Priority: Secondary Status: Chronic (4) Chronic respiratory failure with hypoxia Priority: Secondary Status: Chronic (5) Hypokalemia Priority: Secondary Status: Acute (6) DVT prophylaxis Priority: Secondary Status: Acute - Respiratory Orders Oxygen / L per min (2 L by NC continuously.) Smoking Cessation: Smoking cessation has been advised. For more information, call the [place] Tobacco Quit Line at 0-862-CLRT-NOW. - Diet/Nutrition Diet/Nutrition Orders: Regular - Activity Activity Orders: Up ad em - Services Needed Following services are medically necessary services: Nursing - Transfer Medications Prescriptions: Albuterol Neb [Proventil Neb] 2.5 mg IH Q6H PRN 7 Days #30 vial PRN Reason: Shortness Of Breath levoFLOXacin [Levaquin] 750 mg PO DAILY 5 Days #5 tablet predniSONE [PredniSONE] See Taper PO DAILY 12 Days #30 tablet Home Medications: DULoxetine [Cymbalta] 30 mg PO HS 02/15/16 [History] Trazodone HCl 200 mg PO HS 02/15/16 [History] Albuterol Sulfate [Albuterol Inhaler] 2 puff IH Q6H PRN 10/14/16 [History] Budesonide/Formoterol 160/4.5 [Symbicort 160/4.5] 2 puff IH BIDR 10/14/16 [ History] Oxygen 2 l NS AD 10/14/16 [History] Tiotropium [Spiriva] 18 mcg IH DAILY 10/14/16 [History] Ascorbate Calcium [Vitamin C] 500 mg PO DAILY 12/14/16 [History] Polyethylene Glycol 3350 [MiraLAX] 17 gm PO DAILY PRN #30 powd.pack 12/22/16 [Rx ] Sennosides/Docusate Sodium [Senna-Docusate Sodium Tablet] 2 each PO BID PRN #60 tablet 12/22/16 [Rx] Calcium Carbonate/Vitamin D3 [Calcium 500 + Vit D Caplet] 2 each PO DAILY #60 tablet 12/26/16 [Rx] Cholecalciferol (D-3) [Vitamin D] 5,000 unit PO DAILY 02/02/17 [History] Melatonin [Melatin] 3 mg PO HS 02/02/17 [History] GuaiFENesin/Dextromethorphan [Mucinex Dm] 1 each PO BID 02/19/17 [History] LORazepam [Ativan] 0.5 mg PO BID PRN 30 Days #60 tablet 03/21/17 [Rx] Magic Mouthwash [Magic Mouthwash BLM] 10 ml PO QID PRN #240 ml 04/02/17 [Rx] OxyCODONE Immed Rel [Roxicodone 10 MG] 10 mg PO TID PRN 30 Days #90 tablet 04/22 [Rx] Albuterol Neb [Proventil Neb] 2.5 mg IH Q6H PRN 7 Days #30 vial 05/04/17 [Rx] levoFLOXacin [Levaquin] 750 mg PO DAILY 5 Days #5 tablet 05/04/17 [Rx] predniSONE [PredniSONE] See Taper PO DAILY 12 Days #30 tablet 05/04/17 [Rx] Allergies/Adverse Reactions: 3 Allergy/AdvReac Type Severity Reaction Status Date / Time No Known Allergies Allergy Verified 05/02/17 17:01 Certification: Further, I certify that my clinical findings support that this patient is homebound (i.e. absences from home require considerable and taxing effort and are for medical reasons or rastafarian services or infrequently or short duration when for other reasons) because: COPD, small cell lung cancer, chronic respiratory failure. Homebound Reason: Patient requires assistance of a person or device to safely leave home, Leaving home requires considerable and taxing effort due to condition, Severity of cardiac or pulmonary status limits activity tolerance Attestation: My signature below is to certify that this patient is under my care and that I, or nurse practitioner, or a physician's assistant child care teacher working with me, has a face-to -face encounter with this patient.
[2017-05-05] MEDS ORDERED: levoFLOXacin 750 MG TABLET PO SCH (09:00)
--- NOTE | 2017-05-07 21:21 | Electrocardiograph Report ---
[place] [id number] Test Date: 2017-05-02 Pat Name: Domi Keenan Department: 104 Room: 2NE35 Gender: F Machine Operator Assistant: GAUDENCIO : 1955 Requested By: Halima Matt Order Number: [id number] Reading MD: Damian Shane DO Measurements Intervals [place] Rate: 96 P: 82 MS: 136 QRS: 7 QRSD: 74 T: 64 QT: 341 QTc: 395 Interpretive Statements SINUS RHYTHM Electronically Signed On 05-07-2017 21:19:51 EDT by Damian Shane DO
== END 2017-05-04 17:50 | disposition home health service (06) | DRG 190 ==
LOC: EMEROO 16:43 → 2NENU 16:43
PROVIDERS: ADMIT Family Medicine; ATTEND Family Medicine

== ENCOUNTER 2017-05-05 14:03 | Inpatient (IN) ==
[2017-05-05] MEDS ORDERED: Ipratropium/Albuterol Neb 3 ML IH ONE (14:28)
[2017-05-05] MEDS ORDERED: methylPREDNISolone 125 MG/2 ML VIAL IVP ONE (14:28)
[2017-05-05] MEDS ORDERED: 0.9 % Sodium Chloride 1,000 ML IVC ONE (14:28)
[2017-05-05] MEDS ORDERED: 0.9 % Sodium Chloride 1,000 ML ONE (14:29)
--- NOTE | 2017-05-05 14:35 | Emergency Department Note ---
Disposition Clinical Impression: HCAP (healthcare-associated pneumonia), Small cell lung cancer COPD (chronic obstructive pulmonary disease) Qualifiers: COPD type: unspecified COPD Qualified Code(s): J44.9 - Chronic obstructive pulmonary disease, unspecified Disposition: Admitted As Inpatient Condition: Fair Referrals: Ron Ward MD [Primary Care Provider] - Forms: ED Satisfaction Letter Time of Disposition: 15:28 SOB HPI - General Chief Complaint: ED Shortness of Breath/Dyspnea Stated Complaint: NOHELIA Time Seen by Provider: 05/05/17 14:09 Source: patient Mode of arrival: ambulatory Limitations: no limitations Nursing Notes Reviewed: Yes Vital Signs Reviewed: Yes - History of Present Illness 61-year-old female history of COPD, small cell lung cancer, recent hospitalization for exacerbation HCAP presents for evaluation of dyspnea. Patient states she was admitted on of last week and had a 48 hour hospitalization with antibiotics and respiratory support. Patient states she was discharged on Levaquin and prednisone. Patient states she has been continuing to take those medications but is felt increasingly short of breath. Patient denies any fevers. Patient denies any cough. Patient denies any chest pain. Patient states that she has increasing dyspnea that is not able to perform activities of daily living. Patient denies any nausea vomiting or abdominal pain. Patient states that she was recently diagnosed with small cell lung cancer in October of last year. Patient finished her first round of chemotherapy therapy possibly 4 weeks ago. - Related Data Home Medications Medication Instructions Recorded Confirmed DULoxetine [Cymbalta] 30 mg PO HS 02/15/16 05/05/17 Trazodone HCl 200 mg PO HS 02/15/16 05/05/17 Albuterol Sulfate [Albuterol 2 puff IH Q6H PRN 10/14/16 05/05/17 Inhaler] Budesonide/Formoterol 160/4.5 2 puff IH BIDR 10/14/16 05/05/17 [Symbicort 160/4.5] Oxygen 2 l NS AD 10/14/16 05/05/17 Tiotropium [Spiriva] 18 mcg IH DAILY 10/14/16 05/05/17 Ascorbate Calcium [Vitamin C] 500 mg PO DAILY 12/14/16 05/05/17 Cholecalciferol (D-3) [Vitamin D] 5,000 unit PO DAILY 02/02/17 05/05/17 Melatonin [Melatin] 3 mg PO HS 02/02/17 05/05/17 GuaiFENesin/Dextromethorphan 1 each PO BID 02/19/17 05/05/17 [Mucinex Dm] Previous Rx's Medication Instructions Recorded Polyethylene Glycol 3350 [MiraLAX] 17 gm PO DAILY PRN #30 powd.pack 12/22/16 Sennosides/Docusate Sodium 2 each PO BID PRN #60 tablet 12/22/16 [Senna-Docusate Sodium Tablet] Calcium Carbonate/Vitamin D3 2 each PO DAILY #60 tablet 12/26/16 [Calcium 500 + Vit D Caplet] LORazepam [Ativan] 0.5 mg PO BID PRN 30 Days #60 03/21/17 tablet Magic Mouthwash [Magic Mouthwash 10 ml PO QID PRN #240 ml 04/02/17 BLM] OxyCODONE Immed Rel [Roxicodone 10 10 mg PO TID PRN 30 Days #90 tablet 04/22/17 MG] Albuterol Neb [Proventil Neb] 2.5 mg IH Q6H PRN 7 Days #30 vial 05/04/17 levoFLOXacin [Levaquin] 750 mg PO DAILY 5 Days #5 tablet 05/04/17 predniSONE [PredniSONE] See Taper PO DAILY 12 Days #30 05/04/17 tablet Allergies Allergy/AdvReac Type Severity Reaction Status Date / Time No Known Allergies Allergy Verified 05/05/17 15:30 All systems ED: reviewed and negative except as stated. Constitutional: Denies: fever Cardiovascular: Denies: chest pain Respiratory: Reports: dyspnea. Denies: cough, wheezes, sputum production Gastrointestinal: Denies: abdominal pain, nausea, vomiting Past Medical History - Past Medical History Source: patient Medical history: Reports: cancer, COPD, hypertension Surgical history: Reports: hysterectomy Psychiatric history: Reports: anxiety, depression [employer] history: Reports: no [employer] history - Social History Smoking Status: Former smoker Smokeless Tobacco Status: No Alcohol use: Reports: none Drug use: Reports: none Physical Exam - General Limitations: no limitations General appearance: alert, in distress - Head Head exam: atraumatic, normocephalic, normal inspection - Eye Eye exam: Present: normal appearance, PERRL, EOMI - ENT ENT exam: normal exam - Neck Neck exam: Present: normal inspection, trachea midline - Chest Chest inspection: Present: normal inspection, symmetric chest wall rise - Respiratory Respiratory exam: Present: respiratory distress, wheezes (ESPIRATORY EXPIRATORY WHEEZES THROUGHOUT), accessory muscle use, prolonged expiratory phase - Cardiovascular Cardiovascular exam: Present: normal rhythm, tachycardia. Absent: systolic murmur - Abdominal Exam Abdominal exam: Present: soft, Non-Tender - Extremities Exam Extremities exam: Present: normal inspection. Absent: pedal edema - Back Exam Back exam: Present: normal inspection - Neurological Exam Neurological exam: Present: alert, CN II-XII intact - Skin Skin exam: Present: warm, dry, intact, normal color Course Course Narrative: Patient seen and examined. Patient does have increased work of breathing. Patient declines any use of BiPAP or positive pressure ventilation. Patient denies a history of intubations. Patient will get triple nebs, steroids, cardiopulmonary evaluation. Disposition admission. - Reevaluation(s) Reevaluation #1: Chest XRY shows infiltrate. Time: 15:27 Reevaluation #2: patient's breathing has improved. Time: 15:57 Vital Signs Temperature 99.3 F 05/05/17 14:05 Pulse Rate 112 05/05/17 14:05 Respiratory Rate 22 05/05/17 14:05 Blood Pressure 113/70 05/05/17 14:05 O2 Sat by Pulse Oximetry 95 05/05/17 14:05 Temperature 99.3 F 05/05/17 14:05 Pulse Rate 114 05/05/17 17:01 Respiratory Rate 18 05/05/17 17:01 Blood Pressure 116/73 05/05/17 17:01 O2 Sat by Pulse Oximetry 95 05/05/17 17:01 Oxygen Delivery Oxygen Delivery Nasal Cannula Shortness of Breath/Dyspnea - [facility] Narrative Medical decision making narrative: Patient presents after recent hospitalization for pneumonia. Patient does have history of lung cancer. Patient notes worsening dyspnea. Patient was in acute respiratory distress which he arrived. Patient's respiratory symptoms improved with nebs and steroids. Patient was resting more comfortably. Given the patient's recent diagnosis of pneumonia patient was on antibiotics. Patient received basic labs. EKG and troponin. Given the patient's history of lung cancer CT PE study was obtained. Patient likely benefit from further respiratory support monitoring. Likely discharge planning and goals of care discussion during this hospitalization. - Lab Data Lab results reviewed: Yes I reviewed the patient's lab results. Result diagrams: 05/05/17 14:27 05/05/17 14:27 Lab Results 05/05/17 05/05/17 05/05/17 Range/Units 14:27 14:27 14:27 WBC 14.0 H D (4.3-11.1) K/mcL RBC 4.14 (3.82-4.97) M/mcL Hgb 11.9 (11.5-15.4) g/dL Hct 38.6 (35.3-44.9) % MCV 93.2 (83.0-100.0) fL MCH 28.7 (28.0-33.3) pg MCHC 30.8 L (31.6-35.5) g/dL RDW 15.6 H (11.5-14.5) % Plt Count 323 (140-400) K/mcL MPV 9.4 (9.4-12.4) fL Immature Gran % 0.3 (0-4) % Seg Neutrophils % 92.0 % Lymphocytes % 5.5 % Monocytes % 1.9 % Eosinophils % 0.2 % Basophils % 0.1 % Neutrophils # 12.9 H (1.6-8.9) K/mcL Lymphocytes # 0.8 (0.6-4.6) K/mcL Monocytes # 0.3 (0.0-1.3) K/mcL Eosinophils # 0.0 (0.0-0.6) K/mcL Basophils # 0.0 (0.0-0.2) K/mcL VBG pH (7.32-7.42) pH Units VBG pCO2 (41-51) mmHg VBG pO2 (25-50) mmHg VBG HCO3 (21-27) mEq/L Sodium 138 (136-145) mEq/L Potassium 3.9 (3.5-5.1) mEq/L Chloride 103 (98-107) mEq/L Carbon Dioxide 29 (23-29) mEq/L BUN 12 (8-23) mg/dL Creatinine 0.58 L (0.60-1.20) mg/dL Est GFR ( Amer) > 60 (> 60) Est GFR (Non-Af Amer) > 60 (> 60) BUN/Creatinine Ratio 21 (6-26) Glucose 121 H (70-105) mg/dL Calculated Osmolality 287 (280-300) Lactic Acid (0.5-2.2) mmol/L Calcium 9.7 (8.6-10.3) mg/dL Magnesium (1.6-2.6) mg/dL Troponin I < 0.03 (< 0.04) ng/mL B-Natriuretic Peptide 33 (Less than 100) pg/mL 05/05/17 05/05/17 05/05/17 Range/Units 14:27 14:52 15:01 WBC (4.3-11.1) K/mcL RBC (3.82-4.97) M/mcL Hgb (11.5-15.4) g/dL Hct (35.3-44.9) % MCV (83.0-100.0) fL MCH (28.0-33.3) pg MCHC (31.6-35.5) g/dL RDW (11.5-14.5) % Plt Count (140-400) K/mcL MPV (9.4-12.4) fL Immature Gran % (0-4) % Seg Neutrophils % % Lymphocytes % % Monocytes % % Eosinophils % % Basophils % % Neutrophils # (1.6-8.9) K/mcL Lymphocytes # (0.6-4.6) K/mcL Monocytes # (0.0-1.3) K/mcL Eosinophils # (0.0-0.6) K/mcL Basophils # (0.0-0.2) K/mcL VBG pH 7.48 H (7.32-7.42) pH Units VBG pCO2 38 L (41-51) mmHg VBG pO2 90 H (25-50) mmHg VBG HCO3 28 H (21-27) mEq/L Sodium (136-145) mEq/L Potassium (3.5-5.1) mEq/L Chloride (98-107) mEq/L Carbon Dioxide (23-29) mEq/L BUN (8-23) mg/dL Creatinine (0.60-1.20) mg/dL Est GFR ( Amer) (> 60) Est GFR (Non-Af Amer) (> 60) BUN/Creatinine Ratio (6-26) Glucose (70-105) mg/dL Calculated Osmolality (280-300) Lactic Acid 1.2 (0.5-2.2) mmol/L Calcium (8.6-10.3) mg/dL Magnesium 1.8 (1.6-2.6) mg/dL Troponin I (< 0.04) ng/mL B-Natriuretic Peptide (Less than 100) pg/mL - Radiology Data Radiology results reviewed: Yes I reviewed the patient's radiology results. Chest X-Ray 05/05/17 14:28 IMPRESSION: 1. Slightly improved appearance of right lower lobe opacities when compared with previous exam. D/ / Bang Keith MD / Bang Keith MD Interpreting Provider: Bang Keith MD Chest X-Ray 05/05/17 14:28 IMPRESSION: 1. Slightly improved appearance of right lower lobe opacities when compared with previous exam. D/ / Bang Keith MD / Bang Keith MD Interpreting Provider: Bang Keith MD Chest CTA 05/05/17 16:10 IMPRESSION: 1. No findings of pulmonary embolism. 2. No significant change in the right perihilar mass likely due to confluent lymphadenopathy, resulting in persistent complete occlusion of the bronchus intermedius. The right middle and right lower lobe bronchi remain completely opacified likely rib by mucous secretions, although superimposed endobronchial tumor spread is not excluded. 3. Slightly increased volume loss and tree-in-bud opacities in the right middle and right lower lobes. The appearance is most likely due to infectious bronchiolitis, although lymphangitic carcinomatosis is not excluded. 4. Unchanged right upper paratracheal, right lower paratracheal, right retrocrural, and gastrohepatic metastatic lymphadenopathy. Unchanged hepatic metastatic disease. 5. Unchanged fractures involving thoracic and lumbar vertebrae and bilateral ribs, potentially pathologic due to unseen skeletal metastases versus osteoporosis. 6. Minimal central bronchial wall thickening potentially due to reactive airways disease or bronchitis. 7. Mild to moderate centrilobular and minimal paraseptal emphysema. D/ / Srinivas Vergara MD / Srinivas Vergara MD Interpreting Provider: Srinivas Vergara MD - EKG Data EKG attestation: Yes I reviewed and interpreted this EKG. EKG shows normal: Reports: sinus rhythm Rate: Reports: tachycardia Rhythm: Reports: NSR [place]/QRS: Reports: normal P waves: Reports: CHIRAG T wave inversions noted in: Reports: v1 (flattened) Interpretation: Reports: no acute changes, nonspecific ST-T wave changes Critical Care Time Critical Care Time: Yes Total Critical Care Time: 35 Attestation: Critical care time 35 minutes managing patient's pneumonia and difficulty breathing. SGenevieve - Luis Manuel Situation: Demographics Background: Presenting Complaint Assessment: Vital Signs, Patient/Family Expectation Recommendation: Barrier(s) to disposition, Recommendation based on pending studies, treatments, or consults SGenevieve Report Given to: Dr. Stephenie Issa Repor Time: 16:13 Attestation Statement - Attestation Attestation: Patient was seen with resident physician. I reviewed the history, physical, assessment and plan, and agree with the findings. I also personally evaluated this patient and had [id number] time with this patient. 61-year-old female presents to the emergency department with chief complaint of shortness of breath. She was discharged from the hospital yesterday on antibiotics and steroids for pneumonia. She has a history of small cell cancer to the lungs. She said that she has progressively gotten worse for the last couple hours in particular today. She said she woke up not feeling great and just rapidly has declined. Denies fevers or chills she does have cough. She does have worsening shortness of breath. No diarrhea. Review of systems as above remained reviewed and negative area Physical exam vital signs patient has low-grade temperature and mild tachycardia. Blood pressure stable. ENT is unremarkable. Heart tachycardic regular rhythm. Lungs diffuse wheezing throughout with poor air exchange. Abdomen soft nontender. Extremities unremarkable with no swelling. Neurologically intact. Skin no rashes. Psych normal. ED course. We will do workup for pneumonia again will start on breathing treatments. I anticipate we will need to admit the patient to the hospital secondary to her worsening symptoms. We will also rescan the chest to ensure there is no PE or worsening of her pneumonia. CT scan ruled out pulmonary embolism. There are multiple findings however they could be consistent with worsening cancer. We opted to admit the patient to the hospitalist service for additional evaluation and treatment. We also restarted IV antibiotics to potentially treat any unresolved pneumonia. I agree with resident physician assessment and plan. Critical care time 35 minutes.
[2017-05-05 14:42] LABS: Basophils % 0.1 %; Eosinophils % 0.2 %; Hematocrit 38.6 % (35.3-44.9); Hemoglobin 11.9 g/dL (11.5-15.4); Immature Granulocytes % 0.3 % (0-4); Lymphocytes # 0.8 K/mcL (0.6-4.6); Lymphocytes % 5.5 %; Mean Corpuscular HGB Conc 30.8 g/dL (31.6-35.5); Mean Corpuscular Hemoglobin 28.7 pg (28.0-33.3); Mean Corpuscular Volume 93.2 fL (83.0-100.0); Mean Platelet Volume 9.4 fL (9.4-12.4); Monocytes # 0.3 K/mcL (0.0-1.3); Monocytes % 1.9 %; Neutrophils # 12.9 K/mcL (1.6-8.9); Platelet Count 323 K/mcL (140-400); Red Blood Count 4.14 M/mcL (3.82-4.97); Red Cell Distribution Width 15.6 % (11.5-14.5)
[2017-05-05 15:06] LABS: VBG HCO3 28 mEq/L (21-27); VBG PCO2 38 mmHg (41-51); VBG PH 7.48 pH Units (7.32-7.42); VBG PO2 90 mmHg (25-50)
[2017-05-05 15:12] LABS: BUN/Creatinine Ratio 21 (6-26); Blood Urea Nitrogen 12 mg/dL (8-23); Calcium 9.7 mg/dL (8.6-10.3); Carbon Dioxide 29 mEq/L (23-29); Chloride 103 mEq/L (98-107); Glucose 121 mg/dL (70-105); Osmolality,Calculated 287 (280-300); Potassium 3.9 mEq/L (3.5-5.1); Sodium 138 mEq/L (136-145); eGFR For African Americans > 60 (> 60); eGFR For Non-African Americans > 60 (> 60)
[2017-05-05 15:13] LABS: Troponin I < 0.03 ng/mL (< 0.04)
[2017-05-05] MEDS ORDERED: Acetaminophen 325 MG TABLET PO ONE (15:15)
[2017-05-05] MEDS ORDERED: Piperacillin/Tazobactam 3.375 GM in 0.9 % Sodium Chloride Mini Bag 100 ML IVPB ONE (15:25)
[2017-05-05] MEDS ORDERED: *HR* OxyCODONE/APAP 5/325 TABLET PO ONE (16:20)
[2017-05-05] MEDS ORDERED: Naloxone 0.4 MG/ML INJ IVP PRN (18:16)
[2017-05-05] MEDS ORDERED: Magic Mouthwash 10 ML UD Cup PO PRN (18:25)
[2017-05-05] MEDS ORDERED: Sennosides/Docusate Sodium TABLET PO PRN (18:25)
[2017-05-05] MEDS ORDERED: Albuterol 2.5 MG/3 ML NEBULIZER IH PRN (18:25)
[2017-05-05] MEDS ORDERED: NON-FORMULARY MEDICATION 1 EACH EACH (Oxygen [Oxygen] 2 L) NS SCH (18:30)
[2017-05-05] MEDS ORDERED: Acetaminophen 325 MG TABLET PO PRN (18:39)
--- NOTE | 2017-05-05 19:58 | Internal Med History&Physical ---
<Hunter Beebe - Last Filed: 05/05/17 21:39> Date of Encounter: 05/05/17 Time of Encounter: 18:00 Assessment and Plan (1) HCAP (healthcare-associated pneumonia) Current visit: Yes Status: Acute Unresolved HCAP. Pt. admitted on for pneumonia and discharged yesterday on PO levaquin and prednisone. Pt. states she became worse yesterday. 1-View CXR today is slightly improved appearance of right lower lobe bases when compared to previous exam. CTA shows no findings for PE. Blood cultures x2 ordered. Sputum culture ordered. Legionella and strep pneumoniae antigens ordered. DuoNebs Q4HR scheduled. Mucinex for cough. IVPB vancomycin w/pharmacy dosing and Zosyn 3.375 gm Q8HR for infection coverage. Will adjust abx coverage based on culture results. Supplemental O2 w/titration and SpO2 monitoring. Falls /safety precautions. Pt. discussed w/Dr. Casiano who agrees w/plan of care. Pt. is high risk for further morbidity d/t current sepsis criteria, unresolved pneumonia, acute exacerbation of COPD, lung cancer dx, hx, and risk factors. Inpatient. (2) Sepsis Current visit: Yes Status: Acute Sepsis criteria based on WBC of 14.0, HR of 112, and RR of 22. Blood cultures x2 ordered. Legionella and strep pneumoniae antigens ordered. Sputum culture ordered. Pt. received bolus 0.9 NS IV fluids in ED followed by 100 mL/HR. Lactic acid 1.2. Will repeat. Temp 98.0F. Continuous cardiac telemetry. IVPB vancomycin w/pharmacy dosing and Zosyn 3.375 gm Q8HR for infection coverage. Will adjust abx coverage based on culture results. Pt. and f/u labs to be monitored closely for signs of increasing infection. Qualifiers: Sepsis type: sepsis due to unspecified organism Qualified Code(s): A41.9 - Sepsis, unspecified organism (3) Acute exacerbation of COPD with asthma Current visit: Yes Status: Acute Acute exacerbation of COPD complicated by HCAP. Pt. has bilateral wheezes on auscultation w/SOB and dyspnea. Solumedrol 60 mg. Q8HR IVP. Supplemental O2 w/ titration and SpO2 monitoring. DuoNebs Q4HR scheduled. Continue pts. inhalers. Consult to Pulmonology ordered and to be followed up on by a.m. team. (4) Weakness Current visit: Yes Status: Acute Acute weakness from current pneumonia complicated by acute exacerbation of COPD. Falls/safety precautions, up with assist, bed rest w/bedside commode w/ assist only. PT/OT consults ordered. (5) Small cell lung cancer Current visit: Yes Status: Chronic Hx of chronic small cell lung cancer w/dx in 11/04. Pt. reports LT hx of tobacco abuse, smoking 1.5-2 PPD and quitting when dx. Oncology consult ordered and should be followed up on by a.m. team. (6) Failure to thrive Current visit: Yes Status: Chronic Acute on chronic failure to thrive. Pt. dx w/lung cancer in 11/04. Pts. current weight is 44.3 kg and BMI is 17.9. Pt. reports that she has been experiencing reduced appetite recently. Nutrition consult ordered for PO supplementation. Oncology consult ordered and should be followed up on in a.m. for possible recommendations for appetite stimulants. Monitor I&O and daily weight. Qualifiers: Failure to thrive age range: in adult Qualified Code(s): R62.7 - Adult failure to thrive (7) HTN (hypertension) Current visit: Yes Status: Chronic Hx of chronic HTN. Monitor pt. and VS. Pt. does not currently take HTN medication. Will add hydralazine 10 mg Q6HR PRN IVP to be administered if SBP > 170 and/or DBP >100. Qualifiers: Hypertension type: essential hypertension Qualified Code(s): I10 - Essential (primary) hypertension (8) DVT prophylaxis Current visit: Yes Status: Acute Heparin 5,000 units SQ Q8 for DVT prophylaxis. Monitor pt. for signs of bleeding. Internal Medicine - H&P: HPI Chief complaint: SOB/Dyspnea Admitted From: Emergency Dept Plans for Post Hospital Care: Home History of present illness: Ms. Keenan is a 61 year old female w/PMH of lung cancer diagnosed in 11/04 , COPD, and hypertension presents in the ED with chief complaint of increasing shortness of breath and dyspnea since yesterday. Patient reports being hospitalized at [facility] on for pneumonia and discharged yesterday. States sx worsened w/SOB, dyspnea, and cough. Reports being discharged on PO Levaquin and prednisone but states she worsened. Pt. denies fever, chills, nausea, vomiting, headache, changes in vision, unusual bleeding, chest pain, palpitations, diarrhea, constipation, pre-syncope, or syncope. Past Med Surg Social Fam HX - Past Medical History Source: patient, old records reviewed, obtained from family Medical history: cancer (Lung cancer dx in 10/2016), COPD, hypertension Psychiatric history: anxiety, depression - Past Surgical History Surgical History: hysterectomy - Social History Smoking Status: Former smoker Packs per day: 1.5 - 2 PPD. Reports quitting in 10/2016 Smokeless Tobacco Status: No Alcohol use: none Drug use: none Current living situation: Home, With Family Activity Level: Independent ambulation Recent Out of Country Travel Within the Last 8 Weeks: No Exposure or Possible Exposure to Illness During Travel: No - Family History Sister Race: Family Member Ethnicity: Non- Living Status: Still Living Hx Family Cardiac Disorders: Yes (HTN) Hx Family Cancer: Yes (Lymphoma) Mother Race: Family Member Ethnicity: Non- Living Status: Age at : 77 Cause of : Aneurysm Hx Family Cardiac Disorders: Yes (Aneurysm, HTN) Hx Family Respiratory Disorders: Yes (COPD) Father Adopted: No Race: Family Member Ethnicity: Non- Living Status: Age at : 74 Cause of : CHF Hx Family Cardiac Disorders: Yes (CHF, CAD, [place]) Hx Family Respiratory Disorders: Yes (mother copd) Internal Medicine - H&P: Meds DULoxetine [Cymbalta] 30 mg PO HS 02/15/16 [History] Trazodone HCl 200 mg PO HS 02/15/16 [History] Albuterol Sulfate [Albuterol Inhaler] 2 puff IH Q6H PRN 10/14/16 [History] Budesonide/Formoterol 160/4.5 [Symbicort 160/4.5] 2 puff IH BIDR 10/14/16 [ History] Oxygen 2 l NS AD 10/14/16 [History] Tiotropium [Spiriva] 18 mcg IH DAILY 10/14/16 [History] Ascorbate Calcium [Vitamin C] 500 mg PO DAILY 12/14/16 [History] Polyethylene Glycol 3350 [MiraLAX] 17 gm PO DAILY PRN #30 powd.pack 12/22/16 [Rx ] Sennosides/Docusate Sodium [Senna-Docusate Sodium Tablet] 2 each PO BID PRN #60 tablet 12/22/16 [Rx] Calcium Carbonate/Vitamin D3 [Calcium 500 + Vit D Caplet] 2 each PO DAILY #60 tablet 12/26/16 [Rx] Cholecalciferol (D-3) [Vitamin D] 5,000 unit PO DAILY 02/02/17 [History] Melatonin [Melatin] 3 mg PO HS 02/02/17 [History] GuaiFENesin/Dextromethorphan [Mucinex Dm] 1 each PO BID 02/19/17 [History] LORazepam [Ativan] 0.5 mg PO BID PRN 30 Days #60 tablet 03/21/17 [Rx] Magic Mouthwash [Magic Mouthwash BLM] 10 ml PO QID PRN #240 ml 04/02/17 [Rx] OxyCODONE Immed Rel [Roxicodone 10 MG] 10 mg PO TID PRN 30 Days #90 tablet 04/22 [Rx] Albuterol Neb [Proventil Neb] 2.5 mg IH Q6H PRN 7 Days #30 vial 05/04/17 [Rx] levoFLOXacin [Levaquin] 750 mg PO DAILY 5 Days #5 tablet 05/04/17 [Rx] predniSONE [PredniSONE] See Taper PO DAILY 12 Days #30 tablet 05/04/17 [Rx] 3 Allergy/AdvReac Type Severity Reaction Status Date / Time No Known Allergies Allergy Verified 05/05/17 15:30 All Systems PM: A 10-system review of systems was performed and is negative for pertinent findings except as documented above in the HPI. - Constitutional Constitutional: as per HPI, fatigue, weakness, no chills, no fever(s), no night sweats - EENT Eyes: no change in vision, no discharge, no pain, no photophobia Ears: no ear discharge, no ear pain, no tinnitus Nose, mouth and throat: no dysphagia, no nasal discharge, no neck pain, no sore throat - Breasts Breasts: as per HPI - Cardiovascular Cardiovascular ROS IM: as per HPI, dyspnea, dyspnea on exertion, no chest pain, no diaphoresis, no lightheadedness, no palpitations, no syncope - Respiratory Respiratory: as per HPI, cough, dyspnea, dyspnea on exertion, wheezing, no excessive phlegm production - Gastrointestinal Gastrointestinal: no abdominal pain, no diarrhea, no hematemesis, no hematochezia, no melena, no nausea, no vomiting - Genitourinary Genitourinary: no change in urinary stream, no dysuria, no flank pain, no hematuria Menstruation: as per HPI, post hysterectomy - Musculoskeletal Musculoskeletal ROS IM: no numbness, no tingling - Integumentary Integumentary IM: no rash, no unusual bruising - Neurological Neurological ROS: as per HPI, weakness, no confusion, no convulsions, no focal weakness, no numbness, no tingling, no tremor(s) - Psychiatric Psychiatric: as per HPI, anxiety, depression - Endocrine Endocrine IM: as per HPI - Hematologic/Lymphatic Hematologic/Lymphatic: no easy bruising - Allergic/Immunologic Allergic/Immunologic: as per HPI - Constitutional Vitals: Temp Pulse Resp BP Pulse Ox 98.0 F 109 19 119/73 97 05/05/17 19:02 05/05/17 19:02 05/05/17 19:02 05/05/17 19:02 05/05/17 19:02 General appearance: Present: cooperative, mild distress (Respiratory), A&O X 3, pleasant, underweight, answers questions appropriately - Head Head exam: Present: atraumatic, normocephalic - Eye Eye exam: Present: PERRL, conjuntiva pink, sclera anicteric Pupils: Present: PERRL - ENT ENT exam: Present: normal exam - Neck Neck exam general surgery: Present: normal inspection, supple, trachea midline. Absent: lymphadenopathy - Respiratory Respiratory exam: Present: decreased breath sounds, wheezes. Absent: accessory muscle use, rales, rhonchi - Cardiovascular Cardiovascular exam: Present: +S1, +S2, tachycardia. Absent: diastolic murmur, gallop, rubs, systolic murmur - GI/Abdominal GI/Abdominal exam: Present: normal bowel sounds, soft, no peritoneal signs. Absent: distended, tenderness - Rectal Rectal exam: Present: deferred - Additional comments: exam deferred. - Extremities Exam Extremities exam: Present: warm, radial pulses palpable and symmetrical. Absent : calf tenderness, cyanotic, pedal edema - Back Exam Back exam: Present: normal inspection - Neurological Exam Neurological exam: Present: CN II-XII intact, oriented X3, no focal deficits. Absent: pronater drift, facial droop, speech deficit - Psychiatric Psychiatric exam: Present: normal affect, normal mood - Skin Skin exam: Present: dry, intact Internal Med - H&P Results - Labs CBC & Chem 7: 05/05/17 14:27 05/05/17 14:27 - EKG Data EKG shows normal: sinus rhythm Rate: tachycardia - EKG Data Prior EKG available for review: no EKG comments: 05/05/17 20:07 EKG dated 05/05/17 shows sinus tachycardia. - Diagnostic Studies Chest x-ray Additional comments: Impressions Chest X-Ray 05/05/17 14:28 IMPRESSION: 1. Slightly improved appearance of right lower lobe opacities when compared with previous exam. D/ / Bang Keith MD / Bang Keith MD Interpreting Provider: Bang Keith MD Other Images Additional comments: Impressions Chest CTA 05/05/17 16:10 IMPRESSION: 1. No findings of pulmonary embolism. 2. No significant change in the right perihilar mass likely due to confluent lymphadenopathy, resulting in persistent complete occlusion of the bronchus intermedius. The right middle and right lower lobe bronchi remain completely opacified likely rib by mucous secretions, although superimposed endobronchial tumor spread is not excluded. 3. Slightly increased volume loss and tree-in-bud opacities in the right middle and right lower lobes. The appearance is most likely due to infectious bronchiolitis, although lymphangitic carcinomatosis is not excluded. 4. Unchanged right upper paratracheal, right lower paratracheal, right retrocrural, and gastrohepatic metastatic lymphadenopathy. Unchanged hepatic metastatic disease. 5. Unchanged fractures involving thoracic and lumbar vertebrae and bilateral ribs, potentially pathologic due to unseen skeletal metastases versus osteoporosis. 6. Minimal central bronchial wall thickening potentially due to reactive airways disease or bronchitis. 7. Mild to moderate centrilobular and minimal paraseptal emphysema. D/ / Srinivas Vergara MD / Srinivas Vergara MD Interpreting Provider: Srinivas Vergara MD <Luna Casiano - Last Filed: 05/06/17 11:08> Date of Encounter: 05/06/17 Internal Medicine - H&P: HPI History of present illness: Ms. Keenan is a 61 year old female All Systems PM: A 10-system review of systems was performed and is negative for pertinent findings except as documented above in the HPI. - Constitutional Vitals: Temp Pulse Resp BP Pulse Ox 97.9 F 95 18 125/74 98 05/06/17 07:00 05/06/17 07:00 05/06/17 08:14 05/06/17 07:00 05/06/17 08:14 Internal Med - H&P Results - Labs CBC & Chem 7: 05/06/17 05:58 05/05/17 14:27 Labs: Short CBC 05/06/17 Range/Units 05:58 WBC 6.3 D (4.3-11.1) K/mcL Hgb 10.5 L (11.5-15.4) g/dL Hct 34.3 L (35.3-44.9) % Plt Count 288 (140-400) K/mcL Neutrophils # 5.8 (1.6-8.9) K/mcL Attestation: My signature below is to certify that this patient is under my care and that I, or nurse practitioner, or a physician's assistant media planner working with me, has a face-to -face encounter with this patient.
[2017-05-05] MEDS: Ipratropium/Albuterol Neb 3 ML IH SCH ×2 (20:12→23:57)
[2017-05-05] MEDS: Budesonide/Formoterol 160/4.5 MDI IH SCH (20:12)
[2017-05-05] MEDS: GuaiFENesin/Dextromethorphan TABLET PO SCH (20:23)
[2017-05-05] MEDS: traZODone 50 MG TABLET PO SCH (20:23)
[2017-05-05] MEDS: Melatonin 3 MG TABLET PO SCH (20:23)
[2017-05-05] MEDS: *HR* LORazepam 0.5 MG TABLET PO PRN (20:24)
[2017-05-05] MEDS: 0.9 % Sodium Chloride 1,000 ML IVC SCH (20:34)
[2017-05-06] MEDS: *HR* Heparin 5,000 UNIT/ML VIAL SQ SCH ×3 (00:33→16:34)
[2017-05-06] MEDS: methylPREDNISolone 125 MG/2 ML VIAL IVP SCH ×3 (00:33→16:35)
[2017-05-06] MEDS: Ipratropium/Albuterol Neb 3 ML IH SCH ×6 (03:31→23:07)
[2017-05-06] MEDS: Piperacillin/Tazobactam 3.375 GM in 0.9 % Sodium Chloride Mini Bag 100 ML IVPB SCH ×4 (04:19→21:08)
[2017-05-06 06:32] LABS: Hematocrit 34.3 % (35.3-44.9); Hemoglobin 10.5 g/dL (11.5-15.4); Immature Granulocytes % 0.8 % (0-4); Immature Platelets 2.3 % (1.1-6.1); Lymphocytes # 0.4 K/mcL (0.6-4.6); Mean Corpuscular HGB Conc 30.6 g/dL (31.6-35.5); Mean Corpuscular Hemoglobin 28.7 pg (28.0-33.3); Mean Corpuscular Volume 93.7 fL (83.0-100.0); Mean Platelet Volume 9.8 fL (9.4-12.4); Monocytes # 0.1 K/mcL (0.0-1.3); Monocytes % 1.7 %; Neutrophils # 5.8 K/mcL (1.6-8.9); Platelet Count 288 K/mcL (140-400); Red Blood Count 3.66 M/mcL (3.82-4.97); Red Cell Distribution Width 15.6 % (11.5-14.5); Segmented Neutrophils % 91.5 %
[2017-05-06 07:14] LABS: Vancomycin,Trough 10.9 mcg/mL (10-20)
[2017-05-06 07:17] LABS: Adenovirus Not Detected (Not Detect); Bordetella Pertussis Not Detected (Not Detect); Chlamydophila pneumoniae Not Detected (Not Detect); Coronavirus 229E Not Detected (Not Detect); Coronavirus HKU1 Not Detected (Not Detect); Coronavirus NL63 Not Detected (Not Detect); Coronavirus OC43 Not Detected (Not Detect); Human Metapneumovirus Not Detected (Not Detect); Human Rhinovirus/Enterovirus Not Detected (Not Detect); Influenza A Subtype 2009 H1 Not Detected (Not Detect); Influenza A Untypeable Not Detected (Not Detect); Influenza B Not Detected (Not Detect); Mycoplasma pneumoniae Not Detected (Not Detect); Parainfluenza Virus 1 Not Detected (Not Detect); Parainfluenza Virus 2 Not Detected (Not Detect); Parainfluenza Virus 3 Not Detected (Not Detect); Parainfluenza Virus 4 Not Detected (Not Detect); Respiratory Syncytial Virus Not Detected (Not Detect)
[2017-05-06] MEDS: Budesonide/Formoterol 160/4.5 MDI IH SCH ×2 (08:12→19:30)
[2017-05-06] MEDS: *HR* OxyCODONE Immed Rel 5 MG TABLET PO PRN ×2 (08:55→15:08)
[2017-05-06] MEDS: GuaiFENesin/Dextromethorphan TABLET PO SCH ×2 (08:55→21:07)
[2017-05-06] MEDS: Ascorbic Acid 500 MG TABLET PO SCH (08:55)
[2017-05-06] MEDS: Cholecalciferol (D-3) 1,000 UNIT TABLET PO SCH (08:55)
[2017-05-06] MEDS ORDERED: CALCIUM CARBONATE PO SCH (09:00)
[2017-05-06] MEDS: Nicotine 21 MG PATCH.TD24 TD SCH (09:00)
[2017-05-06] MEDS ORDERED: VITAMIN D3 PO SCH (09:00)
[2017-05-06 10:31] LABS: Estimated Average Glucose 128 mg/dl; Hemoglobin A1C 6.1 %
--- NOTE | 2017-05-06 10:49 | Internal Med Progress Note ---
<Gab Mackey - Last Filed: 05/06/17 17:54> Date of Encounter: 05/06/17 Time of Encounter: 09:35 - Assessment and plan (1) HCAP (healthcare-associated pneumonia) Current Visit: Yes Status: Acute Assessment and plan: Unresolved HCAP. Pt. admitted on for pneumonia and discharged 05/04/17 on PO levaquin and prednisone. Pt. states she became worse day before admission. 1-View CXR shows slightly improved appearance of right lower lobe bases when compared to previous exam. CTA shows no findings for PE. Blood cultures x2 pending. Sputum culture negative. Legionella and strep pneumoniae antigens pending. White blood cell count has improved from 14 down to 6.3 since yesterday. Patient's afebrile, respiratory rate normal, pulse rate normal , and blood pressure is normotensive. Patient's recurrent hospitalizations with pneumonia can possibly be secondary to tumor near right bronchus that predisposes her to ongoing postobstructive infectious complications. Oncology currently recommending radiation therapy. We will also need to follow up with oncology to discuss possibility of stenting patient in outpatient. Recommend patient be put on high-dose prednisone upon discharge to prevent any further bronchus inflammation until patient can receive proper therapy from oncology. - On day #2 of vancomycin and Zosyn. - Continue scheduled duo nebs every 4 hours. - Continue Mucinex for cough. - Continue Supplemental O2 w/titration and SpO2 monitoring. - Falls/safety precautions. (2) Sepsis Current Visit: Yes Status: Resolved Assessment and plan: Patient's white blood cell count has decreased from 14 down to 6.3. Patient is no longer tachycardic.Respiratory rate has normalized.Blood cultures still pending. Legionella and strep pneumoniae antigens pending. - Day #2 of vancomycin and Zosyn. - Continue cardiac telemetry. Qualifiers: Sepsis type: sepsis due to unspecified organism Qualified Code(s): A41.9 - Sepsis, unspecified organism (3) Acute exacerbation of chronic obstructive airways disease Current Visit: No Status: Acute Assessment and plan: Acute exacerbation of COPD complicated by HCAP. Patient currently displayed no wheezing on exam today. Pulmonology consult ordered. - Patient seems to be breathing better. Improved cough. No wheezing on exam. Reduced Solu-Medrol to 60 mg IV daily. - Continue supplemental O2 w/titration and SpO2 monitoring. - Continue duo nebs every 4 scheduled. (4) Weakness Current Visit: Yes Status: Acute Assessment and plan: Acute weakness from current pneumonia complicated by acute exacerbation of COPD. Falls/safety precautions, up with assist, bed rest w/bedside commode w/ assist only. PT/OT consults ordered. (5) Small cell lung cancer Current Visit: Yes Status: Chronic Assessment and plan: Hx of chronic small cell lung cancer w/dx in 11/04. Pt. reports LT hx of tobacco abuse, smoking 1.5-2 PPD and quitting when dx. Oncology consult ordered. (6) Failure to thrive Current Visit: Yes Status: Chronic Assessment and plan: Acute on chronic failure to thrive. Pt. dx w/lung cancer in 11/04. Patient's weight has decreased from 45 kg to 44 kg since admission. Nutrition consult ordered for PO supplementation. Oncology consult ordered for possible recommendations for appetite stimulants. - Continue to monitor I/O and daily weight. Qualifiers: Failure to thrive age range: in adult Qualified Code(s): R62.7 - Adult failure to thrive (7) HTN (hypertension) Current Visit: Yes Status: Chronic Assessment and plan: Hx of chronic HTN. Monitor pt. and VS. Pt. does not currently take HTN medication. Blood pressure currently normotensive at 125/74. - Hydralazine 10 mg Q6HR PRN IVP to be administered if SBP >170 and/or DBP > 100. Qualifiers: Hypertension type: essential hypertension Qualified Code(s): I10 - Essential (primary) hypertension (8) DVT prophylaxis Current Visit: Yes Status: Acute Assessment and plan: Heparin 5,000 units SQ Q8 for DVT prophylaxis. Monitor pt. for signs of bleeding. - Subjective Interval history: Ms. Keenan is a 61 year old female w/PMH of lung cancer diagnosed in 11/04 , COPD, and hypertension presents in the ED with chief complaint of increasing shortness of breath and dyspnea. When seen today, space patient says that her breathing has improved since yesterday.She still has a cough with green sputum production but says that has improved since yesterday. She denies any fever, chest pain, swelling, abdominal pain, dysuria, or hematuria. - Constitutional Vitals: Temp Pulse Resp BP Pulse Ox 97.9 F 95 18 125/74 98 05/06/17 07:00 05/06/17 07:00 05/06/17 08:14 05/06/17 07:00 05/06/17 08:14 General appearance: Present: cooperative, mild distress (Respiratory), A&O X 3, pleasant, underweight, answers questions appropriately - Respiratory Respiratory exam: Present: CTAB. Absent: accessory muscle use, rales, rhonchi, wheezes - Cardiovascular Cardiovascular exam: Present: RRR, +S1, +S2. Absent: diastolic murmur, gallop, rubs, systolic murmur - GI/Abdominal GI/Abdominal exam: Present: normal bowel sounds, soft, no peritoneal signs. Absent: distended, tenderness - Extremities Exam Extremities exam: Present: warm, radial pulses palpable and symmetrical. Absent : calf tenderness, cyanotic, pedal edema Internal Medicine: Result - Labs CBC & Chem 7: 05/06/17 05:58 05/06/17 05:58 Labs: Short CBC 05/06/17 Range/Units 05:58 WBC 6.3 D (4.3-11.1) K/mcL Hgb 10.5 L (11.5-15.4) g/dL Hct 34.3 L (35.3-44.9) % Plt Count 288 (140-400) K/mcL Neutrophils # 5.8 (1.6-8.9) K/mcL Consult Discharge Plan - Plan Referrals: Ron Ward MD [Primary Care Provider] - 05/16/17 10:15 am <Jareth Sorto - Last Filed: 05/10/17 11:06> Date of Encounter: 05/10/17 - Constitutional Vitals: Temp Pulse Resp BP Pulse Ox 98.1 F 91 18 141/88 96 05/10/17 06:36 05/10/17 06:36 05/10/17 11:02 05/10/17 06:36 05/10/17 11:02 Internal Medicine: Result - Labs CBC & Chem 7: 05/10/17 04:20 05/10/17 04:20 Labs: Short CBC 05/10/17 Range/Units 04:20 WBC 11.1 (4.3-11.1) K/mcL Hgb 11.3 L (11.5-15.4) g/dL Hct 37.1 (35.3-44.9) % Plt Count 310 (140-400) K/mcL Neutrophils # 9.1 H (1.6-8.9) K/mcL BMP 05/10/17 04:20 Sodium 141 Potassium 4.1 Chloride 104 Carbon Dioxide 31 H BUN 15 Creatinine 0.59 L Glucose 114 H Calcium 9.2 Liver Function 05/10/17 Range/Units 04:20 Total Bilirubin 0.3 (0.3-1.0) mg/dL AST 11 L (13-39) Units/L ALT 13 (7-52) Units/L Alkaline Phosphatase 43 (34-104) Units/L Albumin 3.4 L (3.5-5.7) g/dL - ABG Interpretation ABG results: PT/INR, D-dimer PT 10.8 Seconds (9.4-12.1) 05/08/17 08:52 - Attending Attestation I examined this patient and my medical decision-making was reviewed with the Resident Physician. I agree with the documented findings, disposition and treatment plan as described except to the extent set forth below.
[2017-05-06] MEDS: 0.9 % Sodium Chloride 1,000 ML IVC SCH (11:19)
[2017-05-06] MEDS: Tiotropium 18 MCG inhalation IH SCH (11:37)
[2017-05-06 13:15] LABS: Alanine Aminotransferase 9 Units/L (7-52); Albumin 3.2 g/dL (3.5-5.7); Alkaline Phosphatase 41 Units/L (34-104); Aspartate Amino Transferase 9 Units/L (13-39); BUN/Creatinine Ratio 28 (6-26); Bilirubin,Total 0.3 mg/dL (0.3-1.0); Blood Urea Nitrogen 13 mg/dL (8-23); Calcium 8.4 mg/dL (8.6-10.3); Carbon Dioxide 26 mEq/L (23-29); Chloride 112 mEq/L (98-107); Chol/HDL Ratio 2.6 (0-4.9); Cholesterol 160 mg/dL (< 200); Globulin 1.6 g/dL (2.4-3.5); Glucose 126 mg/dL (70-105); HDL Cholesterol 61 mg/dL (40-59); LDL Cholesterol,Calculated 91 mg/dL (0-99); Osmolality,Calculated 296 (280-300); Potassium 3.9 mEq/L (3.5-5.1); Sodium 142 mEq/L (136-145); Total Protein 4.8 g/dL (6.4-8.9); Triglycerides 41 mg/dL (< 150); eGFR For African Americans > 60 (> 60); eGFR For Non-African Americans > 60 (> 60)
--- NOTE | 2017-05-06 14:17 | Oncology Inp Consult Note ---
Date of Encounter: 05/06/17 Time of Encounter: 14:13 Assessment and Plan (1) Acute and chronic respiratory failure Status: Resolved Assessment and plan: Likely exacerbation of her postobstructive process. Until the R bronchus can be opened up she will likely continue to have repeated admissions for respiratory issues. Qualifiers: Respiratory failure complication: hypoxia Qualified Code(s): J96.21 - Acute and chronic respiratory failure with hypoxia (2) 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 Assessment and plan: Patient appears to have had mixed response based on scans in February with progression in the lungs but significant improvement in the liver. however, she has had multiple admissions for respiratory issues since that admission when I saw her last. Most recent CT does not show significant change compared to CT in February. The R bronchus is still occluded predisposing her to ongoing post-obstructive infectious complications. her MRI brain appears to also be positive highlighting another area of metastatic involvement. Thus, radiation may rather need to be therapeutic rather than prophylactic. - Data of Consult Requesting Physician: Antoine Zheng Primary Care Provider: Ron Ward MD - Consult Narrative Reason for consult: ScLc History of present illness: Ms. Keenan is a 61 year old female w/ SCLC and had her last chemotherapy treatment with carboplatin/etoposide about 4 weeks ago. she had MRI in between that suggested metastatic disease. She was then in [facility] until about 5 days ago when she had trouble breathing. She was admitted for COPD exacberation and discharged abotu 2 days later. she felt quite wel. Then yesterday,the difficulty breathing hit her again all at once and she was readmitted. She is feeling much better. She is unsure what triggered the difficulty breathing yesterday. We are consulted because the patient has a diagnosis of cancer. Past Med Surg Social Fam HX - Past Medical History Medical history: cancer (Lung cancer dx in 10/2016), COPD, hypertension Psychiatric history: anxiety, depression - Past Surgical History Surgical History: hysterectomy - Social History Smoking Status: Former smoker Packs per day: 1.5 - 2 PPD. Reports quitting in 10/2016 Smokeless Tobacco Status: No Alcohol use: none Drug use: none - Family History Sister Race: Family Member Ethnicity: Non- Living Status: Still Living Hx Family Cardiac Disorders: Yes (HTN) Hx Family Cancer: Yes (Lymphoma) Mother Race: Family Member Ethnicity: Non- Living Status: Age at : 77 Cause of : Aneurysm Hx Family Cardiac Disorders: Yes (Aneurysm, HTN) Hx Family Respiratory Disorders: Yes (COPD) Father Adopted: No Race: Family Member Ethnicity: Non- Living Status: Age at : 74 Cause of : CHF Hx Family Cardiac Disorders: Yes (CHF, CAD, [place]) Hx Family Respiratory Disorders: Yes (mother copd) Hx Family Cancer: No Hx Family GI Disorders: No Hx Family Endocrine Disorder: No Hx Family Neuromuscular Disorders: No Hx Family Neurologic Disorders: No Hx Family HEENT Disorders: No Hx Family Autoimmune Disorders: No Medications and Allergies DULoxetine [Cymbalta] 30 mg PO HS 02/15/16 [History] Trazodone HCl 200 mg PO HS 02/15/16 [History] Albuterol Sulfate [Albuterol Inhaler] 2 puff IH Q6H PRN 10/14/16 [History] Budesonide/Formoterol 160/4.5 [Symbicort 160/4.5] 2 puff IH BIDR 10/14/16 [ History] Oxygen 2 l NS AD 10/14/16 [History] Tiotropium [Spiriva] 18 mcg IH DAILY 10/14/16 [History] Ascorbate Calcium [Vitamin C] 500 mg PO DAILY 12/14/16 [History] Polyethylene Glycol 3350 [MiraLAX] 17 gm PO DAILY PRN #30 powd.pack 12/22/16 [Rx ] Sennosides/Docusate Sodium [Senna-Docusate Sodium Tablet] 2 each PO BID PRN #60 tablet 12/22/16 [Rx] Calcium Carbonate/Vitamin D3 [Calcium 500 + Vit D Caplet] 2 each PO DAILY #60 tablet 12/26/16 [Rx] Cholecalciferol (D-3) [Vitamin D] 5,000 unit PO DAILY 02/02/17 [History] Melatonin [Melatin] 3 mg PO HS 02/02/17 [History] GuaiFENesin/Dextromethorphan [Mucinex Dm] 1 each PO BID 02/19/17 [History] LORazepam [Ativan] 0.5 mg PO BID PRN 30 Days #60 tablet 03/21/17 [Rx] Magic Mouthwash [Magic Mouthwash BLM] 10 ml PO QID PRN #240 ml 04/02/17 [Rx] OxyCODONE Immed Rel [Roxicodone 10 MG] 10 mg PO TID PRN 30 Days #90 tablet 04/22 [Rx] Albuterol Neb [Proventil Neb] 2.5 mg IH Q6H PRN 7 Days #30 vial 05/04/17 [Rx] levoFLOXacin [Levaquin] 750 mg PO DAILY 5 Days #5 tablet 05/04/17 [Rx] predniSONE [PredniSONE] See Taper PO DAILY 12 Days #30 tablet 05/04/17 [Rx] 3 Allergy/AdvReac Type Severity Reaction Status Date / Time No Known Allergies Allergy Verified 05/05/17 15:30 Constitutional: Present: weight gain, weight loss. Absent: frequent falls, night sweats Cardiovascular: Absent: chest pain Respiratory: Present: as per HPI Gastrointestinal: Absent: nausea, vomiting Genitourinary: Absent: urinary frequency Neurological: Absent: dizziness, headache(s), tingling Psychiatric: Absent: mood swings Oncology - Exam - Constitutional Vitals: Temp Pulse Resp BP Pulse Ox 97.9 F 110 20 131/85 98 05/06/17 07:00 05/06/17 11:00 05/06/17 11:00 05/06/17 11:00 05/06/17 11:00 Oncology - Results Labs: Short CBC 05/06/17 Range/Units 05:58 WBC 6.3 D (4.3-11.1) K/mcL Hgb 10.5 L (11.5-15.4) g/dL Hct 34.3 L (35.3-44.9) % Plt Count 288 (140-400) K/mcL Neutrophils # 5.8 (1.6-8.9) K/mcL BMP 05/06/17 05:58 Sodium 142 Potassium 3.9 Chloride 112 H Carbon Dioxide 26 BUN 13 Creatinine 0.46 L Glucose 126 H Calcium 8.4 L Liver Function 05/06/17 Range/Units 05:58 Total Bilirubin 0.3 (0.3-1.0) mg/dL AST 9 L (13-39) Units/L ALT 9 (7-52) Units/L Alkaline Phosphatase 41 (34-104) Units/L Albumin 3.2 L (3.5-5.7) g/dL Consult Discharge Plan - Plan Referrals: Ron Ward MD [Primary Care Provider] -
[2017-05-06] MEDS: traZODone 50 MG TABLET PO SCH (21:07)
[2017-05-06] MEDS: *HR* LORazepam 0.5 MG TABLET PO PRN (21:07)
[2017-05-06] MEDS: Melatonin 3 MG TABLET PO SCH (21:08)
[2017-05-07] MEDS: *HR* Heparin 5,000 UNIT/ML VIAL SQ SCH ×3 (01:46→16:31)
[2017-05-07] MEDS: Ipratropium/Albuterol Neb 3 ML IH SCH ×6 (03:18→23:46)
[2017-05-07] MEDS: Piperacillin/Tazobactam 3.375 GM in 0.9 % Sodium Chloride Mini Bag 100 ML IVPB SCH (04:57)
[2017-05-07 05:40] LABS: Basophils % 0.1 %; Hematocrit 33.1 % (35.3-44.9); Immature Granulocytes % 0.4 % (0-4); Lymphocytes # 1.4 K/mcL (0.6-4.6); Lymphocytes % 13.3 %; Mean Corpuscular HGB Conc 30.2 g/dL (31.6-35.5); Mean Corpuscular Hemoglobin 28.6 pg (28.0-33.3); Mean Corpuscular Volume 94.6 fL (83.0-100.0); Mean Platelet Volume 9.8 fL (9.4-12.4); Monocytes # 0.7 K/mcL (0.0-1.3); Monocytes % 6.2 %; Neutrophils # 8.4 K/mcL (1.6-8.9); Platelet Count 285 K/mcL (140-400); Red Cell Distribution Width 15.5 % (11.5-14.5)
[2017-05-07 05:57] LABS: Alanine Aminotransferase 10 Units/L (7-52); Albumin/Globulin Ratio 1.7 (1.1-2.2); Alkaline Phosphatase 39 Units/L (34-104); Aspartate Amino Transferase 8 Units/L (13-39); BUN/Creatinine Ratio 25 (6-26); Bilirubin,Total 0.2 mg/dL (0.3-1.0); Blood Urea Nitrogen 11 mg/dL (8-23); Calcium 8.5 mg/dL (8.6-10.3); Carbon Dioxide 28 mEq/L (23-29); Chloride 111 mEq/L (98-107); Globulin 1.8 g/dL (2.4-3.5); Glucose 108 mg/dL (70-105); Osmolality,Calculated 296 (280-300); Potassium 3.3 mEq/L (3.5-5.1); Sodium 143 mEq/L (136-145); Total Protein 4.8 g/dL (6.4-8.9); eGFR For African Americans > 60 (> 60); eGFR For Non-African Americans > 60 (> 60)
[2017-05-07] MEDS: Budesonide/Formoterol 160/4.5 MDI IH SCH ×2 (07:30→20:09)
[2017-05-07] MEDS ORDERED: Aminoglycoside Consult 1 EACH MC ONE (07:31)
[2017-05-07] MEDS: methylPREDNISolone 125 MG/2 ML VIAL IVP SCH (09:00)
[2017-05-07] MEDS: Ascorbic Acid 500 MG TABLET PO SCH (09:02)
[2017-05-07] MEDS: Nicotine 21 MG PATCH.TD24 TD SCH (09:03)
[2017-05-07] MEDS: Cholecalciferol (D-3) 1,000 UNIT TABLET PO SCH (09:03)
[2017-05-07] MEDS: *HR* OxyCODONE Immed Rel 5 MG TABLET PO PRN ×2 (09:03→16:28)
[2017-05-07] MEDS: GuaiFENesin/Dextromethorphan TABLET PO SCH ×2 (09:03→20:33)
[2017-05-07] MEDS: Potassium Chloride Elixir 20 MEQ/15 ML UDC PO ONE ×2 (09:11→10:49)
[2017-05-07] MEDS ORDERED: levoFLOXacin 750 MG TABLET PO SCH (10:30)
[2017-05-07] MEDS: Tiotropium 18 MCG inhalation IH SCH (11:10)
--- NOTE | 2017-05-07 14:51 | Pulmonology Consult Note ---
Date of Encounter: 05/07/17 Time of Encounter: 14:49 Assessment and Plan (1) Bronchial obstruction Current Visit: No Status: Acute In conclusion Mr. Schneider is a pleasant 61-year-old woman who suffers from small cell lung cancer who is undergoing chemotherapy she has CT chest findings of right hilar mass with obstruction of the bronchus intermedius and postobstructive pneumonic changes. She suffers from underlying COPD and appears to have acute exacerbation. She has frequent hospitalizations for AECOPD and pneumonia. Difficult to conclude entirely if recurrent admissions to the hospital actually represent an infectious process or is this just a degree of symptomatic dyspnea that she suffers with that has been inadequately controlled. I discussed the case at length with the patient and explained to her that it looks like she has extrinsic compression of the bronchus intermedius which is generally not amenable to stenting/debulking and the primary treatment would be radiation which she is scheduled to undergo but has been hospitalized with such regularity that she has been and able to pursue this. I spent is reasonable to proceed with bronchoscopy at this time for evaluation of the airway to ascertain if indeed there is any endobronchial lesion that could be amenable to debulking or possibly dilation. A bronchoscopy is recommended. The procedure , risks, benefits, complications, and expected outcomes have been reviewed. Benefits of diagnosis, as well as risks to include bleeding, infection, pneumothorax which may require surgical intervention, and in a small population. The patient is aware that sometimes test is nondiagnostic. Discussed with patient and agrees to proceed. Keep patient nothing by mouth at midnight for this Bronchoscopy will also afford us an opportunity to take bronchoalveolar lavage to see if the persistence of pneumonia is related to a resistant organism. With regard antimicrobial selection I will defer to the primary medicine service but it would be reasonable to switch oral agent at the time of discharge to something other than respiratory fluoroquinolone as that is what she was discharged on previously and was readmitted shortly thereafter. Can follow-up bronchoscopy results and further identify optimal agent but Augmentin to 7-10 days may be a reasonable place to start unless resistant organism identified Additionally if the postobstructive changes represent lymphangitic spread this is notorious for causing significant dyspnea and with her underlying obstructive lung disease would cause persistent severe symptoms. With regard to COPD agree with schedule bronchodilators patient should be discharged home on DuoNeb breathing treatment every 6 hours (currently she is only using albuterol) continue Symbicort 2 puffs twice daily and I would recommend a prolonged redness around taper starting at 40 mg with plan to decrease by 5 mg every week. She will also need close follow-up in pulmonary clinic within 1-2 weeks at the time of discharge PTOT if not already ordered Continue full DVT prophylaxis Overall prognosis is poor given advanced lung disease extensive stage small cell lung cancer and frequent readmissions to the hospital I have discussed my findings with the primary medicine service including the Senior warehouse record clerk and Steven warehouse record clerk (2) Acute and chronic respiratory failure ([id number]) Current Visit: No Status: Resolved Qualifiers: Respiratory failure complication: hypoxia Qualified Code(s): J96.21 - Acute and chronic respiratory failure with hypoxia (3) Acute exacerbation of chronic obstructive airways disease Current Visit: No Status: Acute (4) Pneumonia Current Visit: No Status: Resolved Qualifiers: Pneumonia type: due to other aerobic Gram-negative bacteria Laterality: right Lung location: middle lobe of lung Qualified Code(s): J15.6 - Pneumonia due to other Gram-negative bacteria (5) DVT prophylaxis Current Visit: Yes Status: Acute (6) Goals of care, counseling/discussion Current Visit: No Status: Acute History of Present Illness Consult date: 05/07/17 Requesting physician: Antoine Zheng Reason for consult: pneumonia Chief complaint: Shortness of breath History of present illness: This is a pleasant 61-year-old woman with a past medical history of advanced COPD complicated by chronic hypoxia on long-term oxygen therapy. Unfortunately she was also diagnosed with small cell lung cancer last October after EBUS was performed for a right hilar lung mass. She has been undergoing chemotherapy with last course about a month ago she follows at the [facility] for this. She has had multiple readmissions to the hospital for COPD exacerbation and "pneumonia" most recently a few days ago where she was discharged on Levaquin and oral prednisone she came back because of significant shortness of breath. She denies cough fevers chills. She had a CT scan that was done in the emergency room but see CT angiogram) which is negative for filling defect but notable for obstructing right hilar lesion primarily closing of the bronchus intermedius with postobstructive pneumonia versus lymphangitic change. She was started on IV antibiotics but has been transitioned back to Levaquin. Pulmonary was consulted to evaluate this right hilar lesion with recurrent postobstructive pneumonia and frequent hospitalizations. Past Med Surg Social Fam HX - Past Medical History Medical history: cancer (Lung cancer dx in 10/2016), COPD, hypertension Psychiatric history: anxiety, depression - Past Surgical History Surgical History: hysterectomy - Social History Smoking Status: Former smoker Packs per day: 1.5 - 2 PPD. Reports quitting in 10/2016 Smokeless Tobacco Status: No Alcohol use: none Drug use: none - Family History Sister Race: Family Member Ethnicity: Non- Living Status: Still Living Hx Family Cardiac Disorders: Yes (HTN) Hx Family Cancer: Yes (Lymphoma) Mother Race: Family Member Ethnicity: Non- Living Status: Age at : 77 Cause of : Aneurysm Hx Family Cardiac Disorders: Yes (Aneurysm, HTN) Hx Family Respiratory Disorders: Yes (COPD) Father Adopted: No Race: Family Member Ethnicity: Non- Living Status: Age at : 74 Cause of : CHF Hx Family Cardiac Disorders: Yes (CHF, CAD, [place]) Hx Family Respiratory Disorders: Yes (mother copd) Hx Family Cancer: No Hx Family GI Disorders: No Hx Family Endocrine Disorder: No Hx Family Neuromuscular Disorders: No Hx Family Neurologic Disorders: No Hx Family HEENT Disorders: No Hx Family Autoimmune Disorders: No Medications and Allergies DULoxetine [Cymbalta] 30 mg PO HS 02/15/16 [History] Trazodone HCl 200 mg PO HS 02/15/16 [History] Albuterol Sulfate [Albuterol Inhaler] 2 puff IH Q6H PRN 10/14/16 [History] Budesonide/Formoterol 160/4.5 [Symbicort 160/4.5] 2 puff IH BIDR 10/14/16 [ History] Oxygen 2 l NS AD 10/14/16 [History] Tiotropium [Spiriva] 18 mcg IH DAILY 10/14/16 [History] Ascorbate Calcium [Vitamin C] 500 mg PO DAILY 12/14/16 [History] Polyethylene Glycol 3350 [MiraLAX] 17 gm PO DAILY PRN #30 powd.pack 12/22/16 [Rx ] Sennosides/Docusate Sodium [Senna-Docusate Sodium Tablet] 2 each PO BID PRN #60 tablet 12/22/16 [Rx] Calcium Carbonate/Vitamin D3 [Calcium 500 + Vit D Caplet] 2 each PO DAILY #60 tablet 12/26/16 [Rx] Cholecalciferol (D-3) [Vitamin D] 5,000 unit PO DAILY 02/02/17 [History] Melatonin [Melatin] 3 mg PO HS 02/02/17 [History] GuaiFENesin/Dextromethorphan [Mucinex Dm] 1 each PO BID 02/19/17 [History] LORazepam [Ativan] 0.5 mg PO BID PRN 30 Days #60 tablet 03/21/17 [Rx] Magic Mouthwash [Magic Mouthwash BLM] 10 ml PO QID PRN #240 ml 04/02/17 [Rx] OxyCODONE Immed Rel [Roxicodone 10 MG] 10 mg PO TID PRN 30 Days #90 tablet 04/22 [Rx] Albuterol Neb [Proventil Neb] 2.5 mg IH Q6H PRN 7 Days #30 vial 05/04/17 [Rx] levoFLOXacin [Levaquin] 750 mg PO DAILY 5 Days #5 tablet 05/04/17 [Rx] predniSONE [PredniSONE] See Taper PO DAILY 12 Days #30 tablet 05/04/17 [Rx] 3 Allergy/AdvReac Type Severity Reaction Status Date / Time No Known Allergies Allergy Verified 05/05/17 15:30 All Systems: The remainder of the systems were reviewed and are negative Physical Examination Vital Signs: Vital Signs, Last 4 Hours Pulse Resp BP Pulse Ox 05/07/17 14:20 111 18 140/94 97 05/07/17 11:10 18 96 05/07/17 11:09 96 General appearance: no acute distress Eyes: nonicteric ENT: oropharynx moist Neck: supple, no JVD Effort: normal Auscultation: bilateral: wheezes (Faint expiratory wheeze with prolonged expiratory phase) Cardiovascular: regular rate and rhythm Gastrointestinal: normoactive bowel sounds Integumentary: normal Extremities: no cyanosis, no edema, no clubbing Musculoskeletal: no deformities normal mental status, non-focal exam Results - Laboratory Findings CBC and BMP: 05/07/17 05:11 05/07/17 05:11 Abnormal lab findings: Abnormal lab results RBC 3.50 M/mcL (3.82-4.97) L 05/07/17 05:11 Hgb 10.0 g/dL (11.5-15.4) L 05/07/17 05:11 Hct 33.1 % (35.3-44.9) L 05/07/17 05:11 MCHC 30.2 g/dL (31.6-35.5) L 05/07/17 05:11 RDW 15.5 % (11.5-14.5) H 05/07/17 05:11 VBG pH 7.48 pH Units (7.32-7.42) H 05/05/17 15:01 VBG pCO2 38 mmHg (41-51) L 05/05/17 15:01 VBG pO2 90 mmHg (25-50) H 05/05/17 15:01 VBG HCO3 28 mEq/L (21-27) H 05/05/17 15:01 Potassium 3.3 mEq/L (3.5-5.1) L 05/07/17 05:11 Chloride 111 mEq/L (98-107) H 05/07/17 05:11 Creatinine 0.44 mg/dL (0.60-1.20) L 05/07/17 05:11 Glucose 108 mg/dL (70-105) H 05/07/17 05:11 POC Glucose 193 (58-89) H 05/06/17 11:38 Hemoglobin A1c 6.1 % (-5.6) H 05/06/17 05:58 Lactic Acid 3.1 mmol/L (0.5-2.2) H 05/05/17 21:34 Calcium 8.5 mg/dL (8.6-10.3) L 05/07/17 05:11 Total Bilirubin 0.2 mg/dL (0.3-1.0) L 05/07/17 05:11 AST 8 Units/L (13-39) L 05/07/17 05:11 Serum Total Protein 4.8 g/dL (6.4-8.9) L 05/07/17 05:11 Albumin 3.0 g/dL (3.5-5.7) L 05/07/17 05:11 Globulin 1.8 g/dL (2.4-3.5) L 05/07/17 05:11 HDL Cholesterol 61 mg/dL (40-59) H 05/06/17 05:58 Vancomycin Trough 7.1 mcg/mL (10-20) L 05/07/17 12:55 - Microbiology Findings Microbiology Findings: Microbiology, Last 48 Hours 05/06/17 08:55 Sputum Culture - Preliminary Sputum 05/06/17 06:45 Streptococcus pneumoniae Antigen (M - Final Urine,Clean Catch 05/06/17 06:45 Legionella Antigen - Final Urine,Clean Catch - Diagnostic Findings Chest x-ray: report reviewed, image reviewed CT scan - chest: report reviewed, image reviewed - Clinical Findings Intake & Output: Intake & Output 05/06/17 05/07/17 05/07/17 23:59 07:59 15:59 Intake Total 940 / 940 350 / 350 380 / 380 Balance 940 / 940 350 / 350 380 / 380 Consult Discharge Plan - Plan Referrals: Ron Ward MD [Primary Care Provider] - 05/16/17 10:15 am
--- NOTE | 2017-05-07 16:49 | Internal Med Progress Note ---
<Gab Mackey - Last Filed: 05/07/17 16:42> Date of Encounter: 05/07/17 Time of Encounter: 10:00 - Assessment and plan (1) HCAP (healthcare-associated pneumonia) Current Visit: Yes Status: Acute Assessment and plan: Unresolved HCAP. Pt. admitted on for pneumonia and discharged 05/04/17 on PO levaquin and prednisone. Pt. states she became worse day before admission. 1-View CXR shows slightly improved appearance of right lower lobe bases when compared to previous exam. CTA shows no findings for PE. Blood cultures x2 pending. Sputum culture negative. Legionella and strep pneumoniae antigens negative. White blood cell count normal at 10.3. Patient's afebrile, respiratory rate normal, pulse rate normal, and blood pressure is normotensive. Patient's recurrent hospitalizations with pneumonia can possibly be secondary to tumor near right bronchus that predisposes her to ongoing postobstructive infectious complications. Oncology currently recommending radiation therapy. Blood cultures were negative. Recommend patient be put on high-dose prednisone taper upon discharge to prevent any further bronchus inflammation until patient can receive proper therapy from oncology. Patient seen by pulmonology today. She will undergo a bronchoscopy tomorrow to determine evaluation of the airway to ascertain if indeed there is any endobronchial lesion that could be amenable to debulking or possibly dilation. - On day #3 of antibiotics. Switched to levaquin 750 mg PO qd. Will adjust medication pending bronchoalveolar lavage results. - Continue scheduled duo nebs every 4 hours. - Continue Mucinex for cough. - Continue Supplemental O2 w/titration and SpO2 monitoring. - Falls/safety precautions. - NPO after midnight for bronchoscopy. (2) Acute exacerbation of chronic obstructive airways disease Current Visit: No Status: Acute (3) Weakness Current Visit: Yes Status: Acute Assessment and plan: Acute weakness from current pneumonia complicated by acute exacerbation of COPD. Falls/safety precautions, up with assist, bed rest w/bedside commode w/ assist only. PT/OT consults ordered. (4) Small cell lung cancer Current Visit: Yes Status: Chronic Assessment and plan: Hx of chronic small cell lung cancer w/dx in 11/04. Pt. reports LT hx of tobacco abuse, smoking 1.5-2 PPD and quitting when dx. Oncology recommends radiation therapy. (5) Failure to thrive Current Visit: Yes Status: Chronic Assessment and plan: Acute on chronic failure to thrive. Pt. dx w/lung cancer in 11/04. Nutrition consult ordered for PO supplementation. - Continue to monitor I/O and daily weight. Qualifiers: Failure to thrive age range: in adult Qualified Code(s): R62.7 - Adult failure to thrive (6) HTN (hypertension) Current Visit: Yes Status: Chronic Assessment and plan: Hx of chronic HTN. Monitor pt. and VS. Pt. does not currently take HTN medication. Blood pressure currently normotensive at 127/88. - Hydralazine 10 mg Q6HR PRN IVP to be administered if SBP >170 and/or DBP > 100. Qualifiers: Hypertension type: essential hypertension Qualified Code(s): I10 - Essential (primary) hypertension (7) DVT prophylaxis Current Visit: Yes Status: Acute Assessment and plan: Heparin 5,000 units SQ Q8 for DVT prophylaxis. Monitor pt. for signs of bleeding. - Subjective Interval history: Ms. Keenan is a 61 year old female w/PMH of lung cancer diagnosed in 11/04 , COPD, and hypertension presents in the ED with chief complaint of increasing shortness of breath and dyspnea. When seen today, patient says that her cough has become dry and improved since yesterday. She denies any fever, chills, nausea, vomiting, diarrhea, abdominal pain, shortness of breath, wheezing, dysuria, or hematuria. - Constitutional Vitals: Temp Pulse Resp BP Pulse Ox 97.8 F 111 18 140/94 97 05/07/17 07:00 05/07/17 14:20 05/07/17 15:58 05/07/17 14:20 05/07/17 15:58 General appearance: Present: cooperative, mild distress (Respiratory), A&O X 3, pleasant, underweight, answers questions appropriately - Respiratory Respiratory exam: Present: wheezes (Minor inspiratory wheezing bilaterally). Absent: rales, rhonchi, tachypnea - Cardiovascular Cardiovascular exam: Present: RRR, +S1, +S2. Absent: diastolic murmur, gallop, rubs, systolic murmur - GI/Abdominal GI/Abdominal exam: Present: normal bowel sounds, soft, no peritoneal signs. Absent: distended, tenderness - Extremities Exam Extremities exam: Present: warm, radial pulses palpable and symmetrical. Absent : calf tenderness, cyanotic, pedal edema Internal Medicine: Result - Labs CBC & Chem 7: 05/07/17 05:11 05/07/17 05:11 Labs: Short CBC 05/07/17 Range/Units 05:11 WBC 10.5 D (4.3-11.1) K/mcL Hgb 10.0 L (11.5-15.4) g/dL Hct 33.1 L (35.3-44.9) % Plt Count 285 (140-400) K/mcL Neutrophils # 8.4 (1.6-8.9) K/mcL BMP 05/07/17 05:11 Sodium 143 Potassium 3.3 L Chloride 111 H Carbon Dioxide 28 BUN 11 Creatinine 0.44 L Glucose 108 H Calcium 8.5 L Liver Function 05/07/17 Range/Units 05:11 Total Bilirubin 0.2 L (0.3-1.0) mg/dL AST 8 L (13-39) Units/L ALT 10 (7-52) Units/L Alkaline Phosphatase 39 (34-104) Units/L Albumin 3.0 L (3.5-5.7) g/dL Consult Discharge Plan - Plan Referrals: Ron Ward MD [Primary Care Provider] - 05/16/17 10:15 am <Carlos Cox - Last Filed: 05/08/17 10:02> Date of Encounter: 05/08/17 - Constitutional Vitals: Temp Pulse Resp BP Pulse Ox 98.2 F 104 97 141/88 94 05/08/17 06:47 05/08/17 09:25 05/08/17 09:25 05/08/17 09:25 05/08/17 09:25 Internal Medicine: Result - Labs CBC & Chem 7: 05/08/17 06:48 05/08/17 06:48 Labs: Short CBC 05/08/17 Range/Units 06:48 WBC 8.6 (4.3-11.1) K/mcL Hgb 10.9 L (11.5-15.4) g/dL Hct 36.2 (35.3-44.9) % Plt Count 293 (140-400) K/mcL Neutrophils # 4.9 (1.6-8.9) K/mcL BMP 05/08/17 06:48 Sodium 141 Potassium 3.8 Chloride 105 Carbon Dioxide 33 H BUN 12 Creatinine 0.57 L Glucose 82 Calcium 8.6 Liver Function 05/08/17 Range/Units 06:48 Total Bilirubin 0.3 (0.3-1.0) mg/dL AST 14 (13-39) Units/L ALT 13 (7-52) Units/L Alkaline Phosphatase 41 (34-104) Units/L Albumin 3.3 L (3.5-5.7) g/dL - ABG Interpretation ABG results: PT/INR, D-dimer PT 10.8 Seconds (9.4-12.1) 05/08/17 08:52 - Attending Attestation I performed an independent interview and exam of this pt. i agree wiht the findings, assessment and plan of Dr. Mackey, internal medicine regulatory affairs internship. Awaiting bronchoscopy. Suspected post obx pna. Await BAL culture data to r/o resistant organism in this pt with recurrent pna.
[2017-05-07] MEDS: Melatonin 3 MG TABLET PO SCH (20:33)
[2017-05-07] MEDS: traZODone 50 MG TABLET PO SCH (20:33)
[2017-05-07] MEDS: *HR* LORazepam 0.5 MG TABLET PO PRN (20:35)
--- NOTE | 2017-05-08 | Electrocardiograph Report ---
[place] [id number] Test Date: 2017-05-05 Pat Name: Domi Keenan Department: 104 Room: 2NE31 Gender: F Modeling Teacher: GAUDENCIO : 1955 Requested By: Bola Vivas Order Number: [id number] Reading MD: Damian Shane DO Measurements Intervals [place] Rate: 110 P: 63 FL: 148 QRS: -6 QRSD: 78 T: 65 QT: 327 QTc: 392 Interpretive Statements SINUS TACHYCARDIA Electronically Signed On 05-07-2017 23:58:43 EDT by Damian Shane DO
[2017-05-08] MEDS: *HR* Heparin 5,000 UNIT/ML VIAL SQ SCH ×3 (00:58→16:17)
[2017-05-08] MEDS: Ipratropium/Albuterol Neb 3 ML IH SCH ×6 (03:51→22:41)
[2017-05-08] MEDS: Budesonide/Formoterol 160/4.5 MDI IH SCH ×2 (07:36→19:56)
[2017-05-08] MEDS: Tiotropium 18 MCG inhalation IH SCH (07:39)
[2017-05-08 07:53] LABS: Alanine Aminotransferase 13 Units/L (7-52); Albumin 3.3 g/dL (3.5-5.7); Albumin/Globulin Ratio 1.8 (1.1-2.2); Alkaline Phosphatase 41 Units/L (34-104); Aspartate Amino Transferase 14 Units/L (13-39); BUN/Creatinine Ratio 21 (6-26); Bilirubin,Total 0.3 mg/dL (0.3-1.0); Blood Urea Nitrogen 12 mg/dL (8-23); Calcium 8.6 mg/dL (8.6-10.3); Carbon Dioxide 33 mEq/L (23-29); Chloride 105 mEq/L (98-107); Globulin 1.8 g/dL (2.4-3.5); Glucose 82 mg/dL (70-105); Osmolality,Calculated 291 (280-300); Potassium 3.8 mEq/L (3.5-5.1); Sodium 141 mEq/L (136-145); Total Protein 5.1 g/dL (6.4-8.9); eGFR For African Americans > 60 (> 60); eGFR For Non-African Americans > 60 (> 60)
--- NOTE | 2017-05-08 08:08 | Pre-Sedation Evaluation ---
Pre-sedation evaluation - Pre-sedation checklist Date of procedure: 05/08/17 Procedure: Bronchoscopy Recent Vitals: Last Vital Signs Temp 98.2 F 05/08/17 06:47 Pulse 86 05/08/17 06:47 Resp 18 05/08/17 07:36 BP 133/80 05/08/17 06:47 Pulse Ox 98 05/08/17 07:36 H&P (including ROS) documented in medical record: Yes Previous reaction to sedatives/anesthetics: No Dietary Status: NPO after Midnight Airway Assessment: Patient can open mouth completely, TMJ function normal Dentition: No loose teeth or bridges Possible difficult airway: No ASA Classification *see protocol: CLASS III-Severe systemic disease
[2017-05-08] MEDS ORDERED: *HR* EPINEPHrine 1 MG/10 ML SYRINGE INTRATRACH PRN (08:10)
[2017-05-08] MEDS ORDERED: *HR* FentaNYL (PF) 100 MCG/2 ML VIAL IVP ONE (08:10)
[2017-05-08] MEDS ORDERED: Tetracaine/Benzocaine/Butamben 200MG/SPRAY (100SPY/BOT) MM ONE (08:10)
[2017-05-08] MEDS ORDERED: *HR* Midazolam HCl 2 MG/2 ML VIAL IVP ONE (08:10)
[2017-05-08] MEDS ORDERED: Ringers Solution, Lactated 1,000 ML IVC SCH (08:15)
[2017-05-08 08:28] LABS: Basophils % 0.1 %; Eosinophils % 0.3 %; Hematocrit 36.2 % (35.3-44.9); Hemoglobin 10.9 g/dL (11.5-15.4); Immature Granulocytes % 0.3 % (0-4); Lymphocytes # 2.9 K/mcL (0.6-4.6); Lymphocytes % 33.8 %; Mean Corpuscular HGB Conc 30.1 g/dL (31.6-35.5); Mean Corpuscular Hemoglobin 28.5 pg (28.0-33.3); Mean Corpuscular Volume 94.5 fL (83.0-100.0); Mean Platelet Volume 10.2 fL (9.4-12.4); Monocytes # 0.7 K/mcL (0.0-1.3); Monocytes % 7.9 %; Neutrophils # 4.9 K/mcL (1.6-8.9); Nucleated Red Blood Cells 0.3 /100 WBC (0); Platelet Count 293 K/mcL (140-400); Red Blood Count 3.83 M/mcL (3.82-4.97); Red Cell Distribution Width 15.8 % (11.5-14.5); Segmented Neutrophils % 57.6 %
[2017-05-08] MEDS ORDERED: Lidocaine Viscous Oral Soln 15 ML SOLUTION ONE (08:57)
[2017-05-08] MEDS ORDERED: *HR* Midazolam HCl 5 MG/5 ML VIAL IVP ONE (08:57)
[2017-05-08] MEDS ORDERED: *HR* FentaNYL (PF) 100 MCG/2 ML VIAL ONE (08:57)
--- NOTE | 2017-05-08 09:25 | Internal Med Progress Note ---
<Carlos Cox R - Last Filed: 05/08/17 15:43> Date of Encounter: 05/08/17 - Constitutional Vitals: Temp Pulse Resp BP Pulse Ox 98.5 F 114 16 127/82 94 05/08/17 15:14 05/08/17 15:14 05/08/17 11:27 05/08/17 15:14 05/08/17 11:27 Internal Medicine: Result - Labs CBC & Chem 7: 05/08/17 06:48 05/08/17 06:48 Labs: Short CBC 05/08/17 Range/Units 06:48 WBC 8.6 (4.3-11.1) K/mcL Hgb 10.9 L (11.5-15.4) g/dL Hct 36.2 (35.3-44.9) % Plt Count 293 (140-400) K/mcL Neutrophils # 4.9 (1.6-8.9) K/mcL BMP 05/08/17 06:48 Sodium 141 Potassium 3.8 Chloride 105 Carbon Dioxide 33 H BUN 12 Creatinine 0.57 L Glucose 82 Calcium 8.6 Liver Function 05/08/17 Range/Units 06:48 Total Bilirubin 0.3 (0.3-1.0) mg/dL AST 14 (13-39) Units/L ALT 13 (7-52) Units/L Alkaline Phosphatase 41 (34-104) Units/L Albumin 3.3 L (3.5-5.7) g/dL - ABG Interpretation ABG results: PT/INR, D-dimer PT 10.8 Seconds (9.4-12.1) 05/08/17 08:52 Consult Discharge Plan - Plan Referrals: Ron Ward MD [Primary Care Provider] - 05/16/17 10:15 am - Attending Attestation I performed an independent interview and exam of this pt. I discussed the case with Pulm Medicine as well. note plans for bronchoscopy tomorrow with intervention into Right bronchial obx. I discussed the case with the pt and family. Furture XRT as well. All else as above. Add Nystatin for thrush noted on bronchosopy. I agree with the findings, assessment and plan of Dr. Parish, Internal Medicine Resident. <Anatoly Parish - Last Filed: 03/21/18 17:09> Date of Encounter: 05/08/17 Time of Encounter: 08:45 - Assessment and plan (1) HCAP (healthcare-associated pneumonia) Current Visit: Yes Status: Acute Assessment and plan: - Admitted for pneumonia with recent discharge on 05/04/17 with PO levofloxacin. - CTA chest on 05/05/17 showed right perihilar mass and opacities in the right middle and right lower lobe. - Likely postobstructive pneumonia. - Clinically improves compared to on admission. - Bronchoscopy today showed an endobronchial mass in the bronchus intermedius and BAL was performed. BAL culture pending. Thrush was also noted. - Pulmonology plans to have another bronscopy tomorrow morning for possible stenting. NPO after midnight. - Given patient was discharged home with levofloxacin last time but came back in few days with worsening respiratory status, will switch from levofloxacin to Augmentin as recommended per pulmonology. Also add nystatin for thrush. (2) Thrush Current Visit: Yes Status: Acute Assessment and plan: - Thrush noted on bronchoscopy. - Start nystatin. (3) Acute exacerbation of chronic obstructive airways disease Current Visit: No Status: Acute Assessment and plan: - Continue steroid, antibiotic, bronchodilators and supplemental oxygen. (4) Small cell lung cancer Current Visit: Yes Status: Chronic Assessment and plan: Hx of chronic small cell lung cancer diagnosed in 10/2016. Known history of tobacco abuse with smoking 1.5-2 PPD and quitted upon diagnosis of lung cancer. Oncology recommends radiation therapy. (5) Failure to thrive Current Visit: Yes Status: Chronic Assessment and plan: Acute on chronic failure to thrive in the setting of lung cancer diagnosed since 10/2016. - Playground Equipment Erector consulted for PO supplementation. - Continue to monitor I/O and daily weight. Qualifiers: Failure to thrive age range: in adult Qualified Code(s): R62.7 - Adult failure to thrive (6) HTN (hypertension) Current Visit: No Status: Chronic Assessment and plan: - BP 133/80 this morning. - Continue current antihypertensive regimen. Qualifiers: Hypertension type: essential hypertension Qualified Code(s): I10 - Essential (primary) hypertension (7) DVT prophylaxis Current Visit: Yes Status: Acute Assessment and plan: - Continue SQ heparin. - Subjective Interval history: Patient was seen and examined this morning before patient heads for bronchoscopy. Patient still has some non-productive cough but feels breathing well. Patient denies fever, chills, chest pain. - Constitutional Vitals: Temp Pulse Resp BP Pulse Ox 98.2 F 96 18 136/82 94 05/08/17 06:47 05/08/17 09:20 05/08/17 09:20 05/08/17 09:20 05/08/17 09:20 General appearance: Present: cooperative, mild distress (Respiratory), A&O X 3, pleasant, underweight, answers questions appropriately - Head Head exam: Present: normal inspection - Eye Eye exam: Present: EOMI - Neck Neck exam general surgery: Present: normal inspection, trachea midline - Respiratory Respiratory exam: Present: wheezes - Cardiovascular Cardiovascular exam: Present: RRR, +S1, +S2 - GI/Abdominal GI/Abdominal exam: Present: normal bowel sounds, soft. Absent: tenderness - Extremities Exam Extremities exam: Absent: cyanotic, pedal edema - Neurological Exam Neurological exam: Present: alert, no focal deficits. Absent: facial droop, speech deficit - Skin Skin exam: Present: dry, warm Internal Medicine: Result - Labs CBC & Chem 7: 05/08/17 06:48 05/08/17 06:48 Labs: Short CBC 05/08/17 Range/Units 06:48 WBC 8.6 (4.3-11.1) K/mcL Hgb 10.9 L (11.5-15.4) g/dL Hct 36.2 (35.3-44.9) % Plt Count 293 (140-400) K/mcL Neutrophils # 4.9 (1.6-8.9) K/mcL BMP 05/08/17 06:48 Sodium 141 Potassium 3.8 Chloride 105 Carbon Dioxide 33 H BUN 12 Creatinine 0.57 L Glucose 82 Calcium 8.6 Liver Function 05/08/17 Range/Units 06:48 Total Bilirubin 0.3 (0.3-1.0) mg/dL AST 14 (13-39) Units/L ALT 13 (7-52) Units/L Alkaline Phosphatase 41 (34-104) Units/L Albumin 3.3 L (3.5-5.7) g/dL
[2017-05-08 09:28] LABS: Prothrombin Time 10.8 Seconds (9.4-12.1)
--- NOTE | 2017-05-08 11:19 | Discharge Summary ---
- NOTES TO OUTPATIENT PROVIDER Notes to Outpatient Provider: Ms. Keenan was admitted on 05/05/17 for sepsis secondary to pneumonia. Patient received IV Zosyn and Levaquin and then switch to PO Augmentin. Bronchodscopy found significant endobronchial mass and BAL was obtained. BAL culture pending. Orders not resulted at time of discharge: Pending orders 05/05/17 18:37 Culture,Sputum with Gram Stain [RM] Stat 05/08/17 10:01 Cell Count w Diff, Body Fluid [BF] Routine Culture,Respiratory [RM] Routine 05/08/17 10:02 AFB Culture, Respiratory [TB] Routine Fungal Culture [MYC] Routine Gram Stain [RM] Routine Date of Encounter: 05/08/17 Time of Encounter: 10:00 Hospital course: Ms. Keenan is a 61 year old female - Time Spent with Patient Total time spent providing and/or coordinating discharge services: - Discharge Medications Home Medications: DULoxetine [Cymbalta] 30 mg PO HS 02/15/16 [History] Trazodone HCl 200 mg PO HS 02/15/16 [History] Albuterol Sulfate [Albuterol Inhaler] 2 puff IH Q6H PRN 10/14/16 [History] Budesonide/Formoterol 160/4.5 [Symbicort 160/4.5] 2 puff IH BIDR 10/14/16 [ History] Oxygen 2 l NS AD 10/14/16 [History] Tiotropium [Spiriva] 18 mcg IH DAILY 10/14/16 [History] Ascorbate Calcium [Vitamin C] 500 mg PO DAILY 12/14/16 [History] Polyethylene Glycol 3350 [MiraLAX] 17 gm PO DAILY PRN #30 powd.pack 12/22/16 [Rx ] Sennosides/Docusate Sodium [Senna-Docusate Sodium Tablet] 2 each PO BID PRN #60 tablet 12/22/16 [Rx] Calcium Carbonate/Vitamin D3 [Calcium 500 + Vit D Caplet] 2 each PO DAILY #60 tablet 12/26/16 [Rx] Cholecalciferol (D-3) [Vitamin D] 5,000 unit PO DAILY 02/02/17 [History] Melatonin [Melatin] 3 mg PO HS 02/02/17 [History] GuaiFENesin/Dextromethorphan [Mucinex Dm] 1 each PO BID 02/19/17 [History] LORazepam [Ativan] 0.5 mg PO BID PRN 30 Days #60 tablet 03/21/17 [Rx] Magic Mouthwash [Magic Mouthwash BLM] 10 ml PO QID PRN #240 ml 04/02/17 [Rx] OxyCODONE Immed Rel [Roxicodone 10 MG] 10 mg PO TID PRN 30 Days #90 tablet 04/22 [Rx] Albuterol Neb [Proventil Neb] 2.5 mg IH Q6H PRN 7 Days #30 vial 05/04/17 [Rx] levoFLOXacin [Levaquin] 750 mg PO DAILY 5 Days #5 tablet 05/04/17 [Rx] predniSONE [PredniSONE] See Taper PO DAILY 12 Days #30 tablet 05/04/17 [Rx] Allergies/Adverse Reactions: 3 Allergy/AdvReac Type Severity Reaction Status Date / Time No Known Allergies Allergy Verified 05/05/17 15:30 Date of admission: 05/05/17 18:16 Primary care physician: Ron Ward MD Consults: 05/05/17 18:29 Consult to Pulmonology [CONS] Routine Consulting Provider: [facility] Reason for Consult: Patient has hx of lung cancer dx and was admitted for pneumonia on 05/02 and discharged on 05/04. Now returns w/worsening respiratory sx. Hx of COPD and previous tobacco abuse w/1.5-2 PPD. Abx, solumedrol, and DuoNebs ordered. Call Completed: No 05/05/17 18:32 Consult to Oncology [CONS] Routine Consulting Provider: [facility] Reason for Consult: Pt. has hx of lung cancer and is now admitted w/HCAP dx. Cancer dx in October 2016. Reports finishing first round of chemo tx approx. 4 weeks ago. Call Completed: No 05/05/17 19:58 Consult to Nutrition [CONS] Routine Comment: Consulting Provider: NUTRITION Reason for Dietary Consult: PO Supplementation Discharging clinician: Anatoly Parish - Constitutional Vitals: Temp Pulse Resp BP Pulse Ox 98.2 F 104 97 141/88 94 05/08/17 06:47 05/08/17 09:25 05/08/17 09:25 05/08/17 09:25 05/08/17 09:25 General appearance: Present: cooperative, mild distress (Respiratory), A&O X 3, pleasant, underweight, answers questions appropriately - Patient Status Condition: Fair - Discharge Instructions Follow Up With: Ron Ward MD [Primary Care Provider] - 05/16/17 10:15 am
[2017-05-08] MEDS: methylPREDNISolone 125 MG/2 ML VIAL IVP SCH (12:13)
[2017-05-08] MEDS: *HR* OxyCODONE Immed Rel 5 MG TABLET PO PRN (12:16)
--- NOTE | 2017-05-08 12:16 | Event Note ---
Date of Encounter: 05/08/17 Time of Encounter: 12:14 Airway inspection performed via bronchoscopy. Notable for endobronchial lesion that could be amenable to balloon dilation and/or tumor debulking. Plan to proceed with procedure tomorrow under general anesthesia discussed risk with patient and family including airway damage/rupture hemorrhage hypoxia pneumothorax infection and and patient agrees to proceed please keep nothing by mouth at midnight
[2017-05-08] MEDS: GuaiFENesin/Dextromethorphan TABLET PO SCH ×2 (12:30→20:22)
[2017-05-08] MEDS: Nicotine 21 MG PATCH.TD24 TD SCH (12:31)
[2017-05-08] MEDS: Ascorbic Acid 500 MG TABLET PO SCH (12:31)
[2017-05-08] MEDS: Cholecalciferol (D-3) 1,000 UNIT TABLET PO SCH (12:31)
[2017-05-08] MEDS: Nystatin SUSP 5 ML UD.LIQ PO SCH ×3 (14:09→20:22)
[2017-05-08] MEDS: Melatonin 3 MG TABLET PO SCH (20:22)
[2017-05-08] MEDS: *HR* LORazepam 0.5 MG TABLET PO PRN (20:22)
[2017-05-08] MEDS: traZODone 50 MG TABLET PO SCH (20:22)
[2017-05-09] MEDS: *HR* Heparin 5,000 UNIT/ML VIAL SQ SCH ×3 (00:09→16:21)
[2017-05-09 01:52] LABS: Hematocrit 34.6 % (35.3-44.9); Hemoglobin 10.6 g/dL (11.5-15.4); Immature Granulocytes % 0.4 % (0-4); Lymphocytes # 1.1 K/mcL (0.6-4.6); Lymphocytes % 13.8 %; Mean Corpuscular HGB Conc 30.6 g/dL (31.6-35.5); Mean Corpuscular Hemoglobin 28.6 pg (28.0-33.3); Mean Corpuscular Volume 93.3 fL (83.0-100.0); Mean Platelet Volume 9.7 fL (9.4-12.4); Monocytes # 0.6 K/mcL (0.0-1.3); Monocytes % 7.2 %; Neutrophils # 6.5 K/mcL (1.6-8.9); Platelet Count 287 K/mcL (140-400); Red Blood Count 3.71 M/mcL (3.82-4.97); Red Cell Distribution Width 15.6 % (11.5-14.5); Segmented Neutrophils % 78.6 %
[2017-05-09 02:14] LABS: Alanine Aminotransferase 13 Units/L (7-52); Albumin 3.3 g/dL (3.5-5.7); Albumin/Globulin Ratio 1.8 (1.1-2.2); Alkaline Phosphatase 42 Units/L (34-104); Aspartate Amino Transferase 9 Units/L (13-39); BUN/Creatinine Ratio 26 (6-26); Bilirubin,Total 0.2 mg/dL (0.3-1.0); Blood Urea Nitrogen 17 mg/dL (8-23); Carbon Dioxide 32 mEq/L (23-29); Chloride 105 mEq/L (98-107); Globulin 1.8 g/dL (2.4-3.5); Glucose 145 mg/dL (70-105); Osmolality,Calculated 296 (280-300); Potassium 4.3 mEq/L (3.5-5.1); Sodium 141 mEq/L (136-145); Total Protein 5.1 g/dL (6.4-8.9); eGFR For African Americans > 60 (> 60); eGFR For Non-African Americans > 60 (> 60)
[2017-05-09] MEDS: Ipratropium/Albuterol Neb 3 ML IH SCH ×6 (04:09→23:06)
[2017-05-09] MEDS: *HR* OxyCODONE Immed Rel 5 MG TABLET PO PRN ×2 (07:50→16:22)
[2017-05-09] MEDS: Budesonide/Formoterol 160/4.5 MDI IH SCH ×2 (07:59→20:16)
[2017-05-09] MEDS: Tiotropium 18 MCG inhalation IH SCH (08:03)
[2017-05-09] MEDS: Nicotine 21 MG PATCH.TD24 TD SCH (08:17)
[2017-05-09] MEDS: GuaiFENesin/Dextromethorphan TABLET PO SCH ×2 (08:17→21:08)
[2017-05-09] MEDS: Cholecalciferol (D-3) 1,000 UNIT TABLET PO SCH (08:17)
[2017-05-09] MEDS: methylPREDNISolone 125 MG/2 ML VIAL IVP SCH (08:17)
[2017-05-09] MEDS: Nystatin SUSP 5 ML UD.LIQ PO SCH ×4 (08:18→21:08)
[2017-05-09] MEDS: Ascorbic Acid 500 MG TABLET PO SCH (08:18)
[2017-05-09] MEDS ORDERED: *HR* FentaNYL (PF) 100 MCG/2 ML VIAL ONE (10:50)
[2017-05-09] MEDS ORDERED: Ondansetron 4 MG/2 ML VIAL ONE (10:50)
[2017-05-09] MEDS ORDERED: Lidocaine -MPF 2% 2 ML VIAL ONE (10:50)
[2017-05-09] MEDS ORDERED: *HR* Propofol 200 MG/20 ML VIAL IVP ONE (10:50)
[2017-05-09] MEDS ORDERED: Dexamethasone 4 MG/ML VIAL ONE (10:50)
[2017-05-09] MEDS ORDERED: *HR* Succinylcholine 200 MG/10 ML VIAL IVP ONE (11:09)
[2017-05-09] MEDS ORDERED: *HR* Rocuronium Bromide 50 MG/5 ML VIAL ONE (11:13)
--- NOTE | 2017-05-09 11:21 | Anesthesia Evaluation PreOp ---
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 History: Other (Anxiety) Other Medical History: Other (Chronic lumbar pain, ddd) Anesthesia History: No Prior Anesthetic Complications, Past Anesthesia (EBUS) : No Alcohol Use: none Drug use: none Medications and Allergies DULoxetine [Cymbalta] 30 mg PO HS 02/15/16 [History] Trazodone HCl 200 mg PO HS 02/15/16 [History] Albuterol Sulfate [Albuterol Inhaler] 2 puff IH Q6H PRN 10/14/16 [History] Budesonide/Formoterol 160/4.5 [Symbicort 160/4.5] 2 puff IH BIDR 10/14/16 [ History] Oxygen 2 l NS AD 10/14/16 [History] Tiotropium [Spiriva] 18 mcg IH DAILY 10/14/16 [History] Ascorbate Calcium [Vitamin C] 500 mg PO DAILY 12/14/16 [History] Polyethylene Glycol 3350 [MiraLAX] 17 gm PO DAILY PRN #30 powd.pack 12/22/16 [Rx ] Sennosides/Docusate Sodium [Senna-Docusate Sodium Tablet] 2 each PO BID PRN #60 tablet 12/22/16 [Rx] Calcium Carbonate/Vitamin D3 [Calcium 500 + Vit D Caplet] 2 each PO DAILY #60 tablet 12/26/16 [Rx] Cholecalciferol (D-3) [Vitamin D] 5,000 unit PO DAILY 02/02/17 [History] Melatonin [Melatin] 3 mg PO HS 02/02/17 [History] GuaiFENesin/Dextromethorphan [Mucinex Dm] 1 each PO BID 02/19/17 [History] LORazepam [Ativan] 0.5 mg PO BID PRN 30 Days #60 tablet 03/21/17 [Rx] Magic Mouthwash [Magic Mouthwash BLM] 10 ml PO QID PRN #240 ml 04/02/17 [Rx] OxyCODONE Immed Rel [Roxicodone 10 MG] 10 mg PO TID PRN 30 Days #90 tablet 04/22 [Rx] Albuterol Neb [Proventil Neb] 2.5 mg IH Q6H PRN 7 Days #30 vial 05/04/17 [Rx] levoFLOXacin [Levaquin] 750 mg PO DAILY 5 Days #5 tablet 05/04/17 [Rx] predniSONE [PredniSONE] See Taper PO DAILY 12 Days #30 tablet 05/04/17 [Rx] 3 Allergy/AdvReac Type Severity Reaction Status Date / Time No Known Allergies Allergy Verified 05/05/17 15:30 - Meds/Allergy Pre-op Review Medications Reviewed: Yes Allergies Reviewed: Yes Beta Blockers on Current Med List: No Anesthesia Results - Labs 05/09/17 01:28 05/09/17 01:28 02/07/2017 Date: 1955 Ht: 62.0 in echocardiogram Impressions: LVEF 70%. Normal LV chamber size, wall thickness and function. Moderate left ventricular diastolic dysfunction. Normal right ventricular structure and function. Unable to estimate RVSP due to lack of TR jet. No significant valvular dysfunction. - Imaging EKG: report reviewed (ST) Anesthesia Exam Vital Signs/O2 Sat, Most Current Temp Pulse Resp BP Pulse Ox 97.9 F 86 16 134/85 96 05/09/17 06:38 05/09/17 06:38 05/09/17 10:29 05/09/17 10:29 05/09/17 10:29 NPO (# of Hours): > 8 hrs Pain Scale: 0 Pain Scale Used: Numeric (1 - 10) - HEENT Pupil (Motor): Pupils equal, EOMI Mallampati: II Teeth: Normal Oral Opening: Greater than 3 - IMAGE ARCHIVIST LOC: Oriented IMAGE ARCHIVIST Motor: Normal RUE, Normal LUE, Normal RLE, Normal LLE, Normal Face IMAGE ARCHIVIST Sensory: Normal: RUE, LUE, RLE, LLE, Face - Cardiac Rhythm: Regular Murmur: None JVD: No Carotid Bruit: No - Pulmonary Breath Sounds: bilateral Clear Respiratory Effort: Symmetrical Anesthesia Assess/Plan ASA Score: 3 Modified [place] Scale for Level of Consciousness: Cooperative, oriented, and tranquil Anesthetic Plan: General Autologous Blood: Yes Monitoring Plan: Standard Monitors Recovery Plan: PACU
[2017-05-09] MEDS ORDERED: *HR* Phenylephrine 10 MG/ML VIAL ONE (11:39)
[2017-05-09] MEDS ORDERED: Albuterol 2.5 MG/3 ML NEBULIZER IH ONE (11:48)
[2017-05-09 11:58] LABS: Source of Body Fluid RLL BAL
[2017-05-09] MEDS ORDERED: Ringers Solution, Lactated 1,000 ML IVC SCH (12:00)
[2017-05-09] MEDS ORDERED: *HR* EPINEPHrine 1 MG/10 ML SYRINGE ONE ×2 (13:09→14:03)
[2017-05-09 13:34] LABS: Volume of Body Fluid 11 mL
[2017-05-09] MEDS ORDERED: *HR* EPINEPHrine 30 MG/30 ML MDV TP ONE (13:40)
[2017-05-09 13:41] LABS: Appearance of Body Fluid Hazy (Clear)
--- NOTE | 2017-05-09 13:51 | Anesthesia Evaluation Post Op ---
Date of Encounter: 05/09/17 Time of Encounter: 13:51 - Vital Signs Vital Signs: Vital Signs/O2 Sat, Most Current Temp Pulse Resp BP Pulse Ox 98.9 F 85 15 141/80 97 05/09/17 13:20 05/09/17 13:40 05/09/17 13:40 05/09/17 13:40 05/09/17 13:40 - Lungs Lungs: Clear Ascult./Percussion - Airway Airway: Non-obstructed - Cardiovascular Regular Rate - Mental Status Mental Status: Alert & Oriented, Answers Appropriately - Pain Pain Scale: 0 Pain Scale used: Numeric (1 - 10) - Nausea Vomiting Nausea Vomiting: Not Present - Hydration Hydration: NPO, Has not voided - Discharge PostOp Status: Transfer Patient to floor
--- NOTE | 2017-05-09 15:09 | Internal Med Progress Note ---
<Gab Mackey - Last Filed: 05/09/17 15:06> Date of Encounter: 05/09/17 Time of Encounter: 09:40 - Assessment and plan (1) HCAP (healthcare-associated pneumonia) Current Visit: Yes Status: Acute Assessment and plan: - Admitted for pneumonia with recent discharge on 05/04/17 with PO levofloxacin. - CTA chest on 05/05/17 showed right perihilar mass and opacities in the right middle and right lower lobe. - Likely postobstructive pneumonia. - Clinically improves compared to on admission. - BAL was performed. BAL culture pending. - Bronchoscopy perfromed and shows right lower lobe pneumonia with suspicious bronchus intermedius lesion. Balloon dilation was performed. - Currently on day #5 of antibiotics. Currently on amoxicillin. White blood cell count normal at 8.2. Patient afebrile. (2) Weakness Current Visit: Yes Status: Acute Assessment and plan: Acute weakness from current pneumonia complicated by acute exacerbation of COPD. Falls/safety precautions, up with assist, bed rest w/bedside commode w/ assist only. PT/OT consults ordered. (3) Acute exacerbation of chronic obstructive airways disease Current Visit: No Status: Acute Assessment and plan: Acute exacerbation of COPD complicated by HCAP. Patient currently displayed no wheezing on exam today. Pulmonology consult ordered. - Switched patient to 40 mg by mouth prednisone. Patient will benefit from being on a long-term tapering schedule with a decrease in prednisone 10 mg every 5 days - Continue supplemental O2 w/titration and SpO2 monitoring. - Continue duo nebs every 4 scheduled. (4) Thrush Current Visit: Yes Status: Acute Assessment and plan: On day #2 of nystatin. (5) Small cell lung cancer Current Visit: Yes Status: Chronic Assessment and plan: Hx of chronic small cell lung cancer w/dx in 11/04. Pt. reports LT hx of tobacco abuse, smoking 1.5-2 PPD and quitting when dx. Oncology recommends radiation therapy. (6) Failure to thrive Current Visit: Yes Status: Chronic Assessment and plan: Acute on chronic failure to thrive. Pt. dx w/lung cancer in 11/04. Nutrition consult ordered for PO supplementation. - Continue to monitor I/O and daily weight. Qualifiers: Failure to thrive age range: in adult Qualified Code(s): R62.7 - Adult failure to thrive (7) HTN (hypertension) Current Visit: Yes Status: Chronic Assessment and plan: Hx of chronic HTN. Monitor pt. and VS. Pt. does not currently take HTN medication. Blood pressure currently normotensive at 134/85. - Hydralazine 10 mg Q6HR PRN IVP to be administered if SBP >170 and/or DBP > 100. Qualifiers: Hypertension type: essential hypertension Qualified Code(s): I10 - Essential (primary) hypertension (8) DVT prophylaxis Current Visit: Yes Status: Acute Assessment and plan: Heparin 5,000 units SQ Q8 for DVT prophylaxis. Monitor pt. for signs of bleeding. - Subjective Interval history: Ms. Keenan is a 61 year old female w/PMH of lung cancer diagnosed in 11/04 , COPD, and hypertension presents in the ED with chief complaint of increasing shortness of breath and dyspnea. When seen today, patient denies any cough, wheezing, or SOB. She denies any fever, chills, nausea, vomiting, diarrhea, abdominal pain, shortness of breath, wheezing, dysuria, or hematuria. Overall she says she is feeling better then yesterday. - Constitutional Vitals: Temp Pulse Resp BP Pulse Ox 98.3 F 83 12 141/77 97 05/09/17 13:50 05/09/17 13:50 05/09/17 13:50 05/09/17 13:50 05/09/17 13:50 General appearance: Present: cooperative, mild distress (Respiratory), A&O X 3, pleasant, underweight, answers questions appropriately - Respiratory Respiratory exam: Present: CTAB. Absent: accessory muscle use, rales, rhonchi, wheezes - Cardiovascular Cardiovascular exam: Present: RRR, +S1, +S2. Absent: diastolic murmur, gallop, rubs, systolic murmur - GI/Abdominal GI/Abdominal exam: Present: normal bowel sounds, soft, no peritoneal signs. Absent: distended, tenderness - Extremities Exam Extremities exam: Present: warm, radial pulses palpable and symmetrical. Absent : calf tenderness, cyanotic, pedal edema Internal Medicine: Result - Labs CBC & Chem 7: 05/09/17 01:28 05/09/17 01:28 Labs: Short CBC 05/09/17 Range/Units 01:28 WBC 8.2 (4.3-11.1) K/mcL Hgb 10.6 L (11.5-15.4) g/dL Hct 34.6 L (35.3-44.9) % Plt Count 287 (140-400) K/mcL Neutrophils # 6.5 (1.6-8.9) K/mcL BMP 05/09/17 01:28 Sodium 141 Potassium 4.3 Chloride 105 Carbon Dioxide 32 H BUN 17 Creatinine 0.65 Glucose 145 H Calcium 9.0 Liver Function 05/09/17 Range/Units 01:28 Total Bilirubin 0.2 L (0.3-1.0) mg/dL AST 9 L (13-39) Units/L ALT 13 (7-52) Units/L Alkaline Phosphatase 42 (34-104) Units/L Albumin 3.3 L (3.5-5.7) g/dL - ABG Interpretation ABG results: PT/INR, D-dimer PT 10.8 Seconds (9.4-12.1) 05/08/17 08:52 Consult Discharge Plan - Plan Referrals: Ron Ward MD [Primary Care Provider] - 05/16/17 10:15 am <Carlos Cox - Last Filed: 05/09/17 15:59> Date of Encounter: 05/09/17 - Constitutional Vitals: Temp Pulse Resp BP Pulse Ox 98.3 F 83 12 141/77 97 05/09/17 13:50 05/09/17 13:50 05/09/17 13:50 05/09/17 13:50 05/09/17 13:50 Internal Medicine: Result - Labs CBC & Chem 7: 05/09/17 01:28 05/09/17 01:28 Labs: Short CBC 05/09/17 Range/Units 01:28 WBC 8.2 (4.3-11.1) K/mcL Hgb 10.6 L (11.5-15.4) g/dL Hct 34.6 L (35.3-44.9) % Plt Count 287 (140-400) K/mcL Neutrophils # 6.5 (1.6-8.9) K/mcL BMP 05/09/17 01:28 Sodium 141 Potassium 4.3 Chloride 105 Carbon Dioxide 32 H BUN 17 Creatinine 0.65 Glucose 145 H Calcium 9.0 Liver Function 05/09/17 Range/Units 01:28 Total Bilirubin 0.2 L (0.3-1.0) mg/dL AST 9 L (13-39) Units/L ALT 13 (7-52) Units/L Alkaline Phosphatase 42 (34-104) Units/L Albumin 3.3 L (3.5-5.7) g/dL - ABG Interpretation ABG results: PT/INR, D-dimer PT 10.8 Seconds (9.4-12.1) 05/08/17 08:52 - Attending Attestation I performed an independent interview and examine this patient. I agree with the findings, assessment, and plan of , internal medicine programming internship. Patient underwent bronchoscopy with dilation today. She was feeling well this morning prior to procedure. Patient otherwise will be with awaiting culture data. Continue amoxicillin antibiotics, likely for 10-14 days total. Reassess tomorrow morning. If she is doing well, may potentially be ready for discharge. Ultimate plan is also to receive radiation to hopefully shrink tumor size.
[2017-05-09] MEDS ORDERED: methylPREDNISolone 125 MG/2 ML VIAL IVP SCH (16:00)
[2017-05-09] MEDS: predniSONE 20 MG TABLET PO SCH (16:20)
[2017-05-09] MEDS: Melatonin 3 MG TABLET PO SCH (21:08)
[2017-05-09] MEDS: traZODone 50 MG TABLET PO SCH (21:13)
[2017-05-09] MEDS: *HR* LORazepam 0.5 MG TABLET PO PRN (21:13)
[2017-05-10] MEDS: *HR* Heparin 5,000 UNIT/ML VIAL SQ SCH ×2 (02:30→08:54)
[2017-05-10] MEDS: Ipratropium/Albuterol Neb 3 ML IH SCH ×3 (04:27→11:02)
[2017-05-10] MEDS: *HR* OxyCODONE Immed Rel 5 MG TABLET PO PRN (04:28)
[2017-05-10 04:59] LABS: Basophils % 0.1 %; Eosinophils % 0.1 %; Hematocrit 37.1 % (35.3-44.9); Hemoglobin 11.3 g/dL (11.5-15.4); Immature Granulocytes % 0.4 % (0-4); Lymphocytes # 1.3 K/mcL (0.6-4.6); Lymphocytes % 11.6 %; Mean Corpuscular HGB Conc 30.5 g/dL (31.6-35.5); Mean Corpuscular Hemoglobin 28.5 pg (28.0-33.3); Mean Corpuscular Volume 93.7 fL (83.0-100.0); Monocytes # 0.7 K/mcL (0.0-1.3); Monocytes % 6.5 %; Neutrophils # 9.1 K/mcL (1.6-8.9); Platelet Count 310 K/mcL (140-400); Red Blood Count 3.96 M/mcL (3.82-4.97); Red Cell Distribution Width 15.4 % (11.5-14.5); Segmented Neutrophils % 81.3 %
[2017-05-10 05:14] LABS: Alanine Aminotransferase 13 Units/L (7-52); Albumin 3.4 g/dL (3.5-5.7); Albumin/Globulin Ratio 1.8 (1.1-2.2); Alkaline Phosphatase 43 Units/L (34-104); Aspartate Amino Transferase 11 Units/L (13-39); BUN/Creatinine Ratio 25 (6-26); Bilirubin,Total 0.3 mg/dL (0.3-1.0); Blood Urea Nitrogen 15 mg/dL (8-23); Calcium 9.2 mg/dL (8.6-10.3); Carbon Dioxide 31 mEq/L (23-29); Chloride 104 mEq/L (98-107); Globulin 1.9 g/dL (2.4-3.5); Glucose 114 mg/dL (70-105); Osmolality,Calculated 294 (280-300); Potassium 4.1 mEq/L (3.5-5.1); Sodium 141 mEq/L (136-145); Total Protein 5.3 g/dL (6.4-8.9); eGFR For African Americans > 60 (> 60); eGFR For Non-African Americans > 60 (> 60)
[2017-05-10] MEDS: Budesonide/Formoterol 160/4.5 MDI IH SCH (07:57)
[2017-05-10] MEDS: Tiotropium 18 MCG inhalation IH SCH (07:58)
[2017-05-10] MEDS: Cholecalciferol (D-3) 1,000 UNIT TABLET PO SCH (08:54)
[2017-05-10] MEDS: predniSONE 20 MG TABLET PO SCH (08:54)
[2017-05-10] MEDS: Ascorbic Acid 500 MG TABLET PO SCH (08:54)
[2017-05-10] MEDS: Nicotine 21 MG PATCH.TD24 TD SCH (08:54)
[2017-05-10] MEDS: GuaiFENesin/Dextromethorphan TABLET PO SCH (08:54)
[2017-05-10] MEDS: Nystatin SUSP 5 ML UD.LIQ PO SCH (08:54)
--- NOTE | 2017-05-10 09:13 | Pulmonology Progress Note ---
Date of Encounter: 05/10/17 Time of Encounter: 09:09 Assessment and Plan (1) Bronchial obstruction Current Visit: No Status: Acute 61-year-old woman with advanced COPD with frequent exacerbations, lung cancer complicated by recurrent postobstructive pneumonia secondary to endobronchial obstruction of right bronchus intermedius from extrinsic and intrinsic tumor. She had successful balloon dilation APC and debulking of this area. Recommend steroids 40 mg to be tapered by 5 mg weekly Antimicrobials pending microbiological sensitivity believe Augmentin's reasonable choice and I would plan on 10 day course given chronicity of symptoms if resistant organism identified antimicrobials would have to be modified Resume home COPD medications make sure patient has ipratropium/albuterol for nebulizer treatment Follow-up pulmonary clinic one to 2 weeks at time of discharge Supplemental oxygen to keep saturation greater than 88% around 92% Pulmonary will sign off thank you for this consultation (2) Acute and chronic respiratory failure ([id number]) Current Visit: No Status: Resolved Qualifiers: Respiratory failure complication: hypoxia Qualified Code(s): J96.21 - Acute and chronic respiratory failure with hypoxia (3) Acute exacerbation of chronic obstructive airways disease Current Visit: No Status: Acute (4) Pneumonia Current Visit: No Status: Resolved Qualifiers: Pneumonia type: due to other aerobic Gram-negative bacteria Laterality: right Lung location: middle lobe of lung Qualified Code(s): J15.6 - Pneumonia due to other Gram-negative bacteria (5) DVT prophylaxis Current Visit: Yes Status: Acute (6) Goals of care, counseling/discussion Current Visit: No Status: Acute Subjective Principal diagnosis: PNeumonia Interval history: Patient underwent tumor debulking balloon dilation and APC yesterday with successful opening of right bronchus intermedius. No untoward complications status post bronchoscopy feels great today anxious to go home to his breathing has improved post procedure. Denies hemoptysis Objective PUL Vital signs: Last Vital Signs Temp 98.1 F 05/10/17 06:36 Pulse 91 05/10/17 06:36 Resp 18 05/10/17 07:59 BP 141/88 05/10/17 06:36 Pulse Ox 99 05/10/17 07:59 Results - Laboratory Findings CBC and BMP: 05/10/17 04:20 05/10/17 04:20 PT/INR, D-dimer PT 10.8 Seconds (9.4-12.1) 05/08/17 08:52 Abnormal lab findings: Abnormal lab results Hgb 11.3 g/dL (11.5-15.4) L 05/10/17 04:20 MCHC 30.5 g/dL (31.6-35.5) L 05/10/17 04:20 RDW 15.4 % (11.5-14.5) H 05/10/17 04:20 Neutrophils # 9.1 K/mcL (1.6-8.9) H 05/10/17 04:20 Nucleated RBCs/100 WBC 0.3 /100 WBC (0) H 05/08/17 06:48 VBG pH 7.48 pH Units (7.32-7.42) H 05/05/17 15:01 VBG pCO2 38 mmHg (41-51) L 05/05/17 15:01 VBG pO2 90 mmHg (25-50) H 05/05/17 15:01 VBG HCO3 28 mEq/L (21-27) H 05/05/17 15:01 Carbon Dioxide 31 mEq/L (23-29) H 05/10/17 04:20 Creatinine 0.59 mg/dL (0.60-1.20) L 05/10/17 04:20 Glucose 114 mg/dL (70-105) H 05/10/17 04:20 POC Glucose 193 (58-89) H 05/06/17 11:38 Hemoglobin A1c 6.1 % (-5.6) H 05/06/17 05:58 Lactic Acid 3.1 mmol/L (0.5-2.2) H 05/05/17 21:34 AST 11 Units/L (13-39) L 05/10/17 04:20 Serum Total Protein 5.3 g/dL (6.4-8.9) L 05/10/17 04:20 Albumin 3.4 g/dL (3.5-5.7) L 05/10/17 04:20 Globulin 1.9 g/dL (2.4-3.5) L 05/10/17 04:20 HDL Cholesterol 61 mg/dL (40-59) H 05/06/17 05:58 Fluid Appearance Hazy (Clear) A 05/08/17 11:57 Vancomycin Trough 7.1 mcg/mL (10-20) L 05/07/17 12:55 - Microbiology Findings Microbiology Findings: Microbiology, Last 48 Hours 05/08/17 11:57 Acid Fast Stain - Final Right Lower Lobe Lung 05/08/17 11:57 Gram Stain - Final Right Lower Lobe Lung 05/06/17 14:46 Blood Culture - Preliminary Peripheral Venipuncture No growth. 05/06/17 08:55 Sputum Culture - Final Sputum - Clinical Findings Intake & Output: Intake & Output 05/09/17 05/10/17 05/10/17 23:59 07:59 15:59 Intake Total 290 / 290 50 / 50 240 / 240 Balance 290 / 290 50 / 50 240 / 240 Weight 45.6 kg Consult Discharge Plan - Plan Referrals: Ron Ward MD [Primary Care Provider] - 05/16/17 10:15 am
[2017-05-10 11:17] VITALS: BP 142/78
[2017-05-10] MEDS: *HR* LORazepam 0.5 MG TABLET PO PRN (11:18)
--- NOTE | 2017-05-10 13:41 | Discharge Summary ---
<Gab Mackey - Last Filed: 05/10/17 13:52> Orders not resulted at time of discharge: Pending orders 05/08/17 11:57 AFB Culture, Respiratory [TB] Routine AFB Smear [TB] Routine Culture,Respiratory [RM] Routine Fungal Culture [MYC] Routine 05/09/17 13:12 AFB Culture, Respiratory [TB] Routine AFB Smear [TB] Routine Culture,Respiratory [RM] Routine Fungal Culture [MYC] Routine Gram Stain [RM] Routine Cytology [PTH] Routine Date of Encounter: 05/10/17 Time of Encounter: 09:40 - Discharge Diagnosis (1) HCAP (healthcare-associated pneumonia) Priority: Primary Status: Acute (2) Weakness Priority: Primary Status: Acute (3) Acute exacerbation of chronic obstructive airways disease Priority: Primary Status: Acute (4) Thrush Priority: Primary Status: Acute (5) 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 Keenan is a 61 year old female with PMH of lung cancer diagnosed in , COPD, and hypertension with a chief complaint of shortness of breath and dyspnea for the past day. Patient was recently hospitalized on 05/02/17 for pneumonia and discharged 2 days later on by mouth Levaquin and prednisone. Respiratory status continued to improve since admission. Recurrent PNA likely secondary to lung cancer causing obstruction. Oncology on board. Status post bronchoscopy with BAL but no biopsy. Switched to Augmentin and started nystatin for thrush. Bronchoscopy performed yesterday with no stent was placed. On day 6 of antibiotics and day 3 of augmentin. Will continue for 7 more days. Pulmonology recommending tapering 40 mg prednisone 5 mg every week. Patient should resume home COPD medications and use ipratropium/albuterol for nebulizer treatment. Supplemental oxygen to keep saturation greater than 88% around 92% Follow-up with pulmonology in 2 week. When seen today, patient denies any chest pain, SOB, fever, chills, abdominal pain, nausea, or vomiting. Admits to minor cough that has improved considerably since admission. Patient to be discharged today to continue home health aide. - Time Spent with Patient Total time spent providing and/or coordinating discharge services: Less than 30 minutes - Discharge Medications Prescriptions: Amoxicillin/Clavulanate [Augmentin] 875 mg PO BIDWM 7 Days #14 tablet Nystatin 500,000 unit PO TID 7 Days #1 bottle predniSONE [PredniSONE] 10 mg PO DAILY 48 Days #118 tablet Home Medications: DULoxetine [Cymbalta] 30 mg PO HS 02/15/16 [History] Trazodone HCl 200 mg PO HS 02/15/16 [History] Albuterol Sulfate [Albuterol Inhaler] 2 puff IH Q6H PRN 10/14/16 [History] Budesonide/Formoterol 160/4.5 [Symbicort 160/4.5] 2 puff IH BIDR 10/14/16 [ History] Oxygen 2 l NS AD 10/14/16 [History] Tiotropium [Spiriva] 18 mcg IH DAILY 10/14/16 [History] Ascorbate Calcium [Vitamin C] 500 mg PO DAILY 12/14/16 [History] Polyethylene Glycol 3350 [MiraLAX] 17 gm PO DAILY PRN #30 powd.pack 12/22/16 [Rx ] Sennosides/Docusate Sodium [Senna-Docusate Sodium Tablet] 2 each PO BID PRN #60 tablet 12/22/16 [Rx] Calcium Carbonate/Vitamin D3 [Calcium 500 + Vit D Caplet] 2 each PO DAILY #60 tablet 12/26/16 [Rx] Cholecalciferol (D-3) [Vitamin D] 5,000 unit PO DAILY 02/02/17 [History] Melatonin [Melatin] 3 mg PO HS 02/02/17 [History] GuaiFENesin/Dextromethorphan [Mucinex Dm] 1 each PO BID 02/19/17 [History] LORazepam [Ativan] 0.5 mg PO BID PRN 30 Days #60 tablet 03/21/17 [Rx] OxyCODONE Immed Rel [Roxicodone 10 MG] 10 mg PO TID PRN 30 Days #90 tablet 04/22 [Rx] Albuterol Neb [Proventil Neb] 2.5 mg IH Q6H PRN 7 Days #30 vial 05/04/17 [Rx] Amoxicillin/Clavulanate [Augmentin] 875 mg PO BIDWM 7 Days #14 tablet 05/10/17 [ Rx] Nystatin 500,000 unit PO TID 7 Days #1 bottle 05/10/17 [Rx] predniSONE [PredniSONE] 10 mg PO DAILY 48 Days #118 tablet 05/10/17 [Rx] Allergies/Adverse Reactions: 3 Allergy/AdvReac Type Severity Reaction Status Date / Time No Known Allergies Allergy Verified 05/05/17 15:30 Date of admission: 05/05/17 18:16 Primary care physician: Ron Ward MD Consults: 05/05/17 18:29 Consult to Pulmonology [CONS] Routine Consulting Provider: [facility] Reason for Consult: Patient has hx of lung cancer dx and was admitted for pneumonia on 05/02 and discharged on 05/04. Now returns w/worsening respiratory sx. Hx of COPD and previous tobacco abuse w/1.5-2 PPD. Abx, solumedrol, and DuoNebs ordered. Call Completed: No 05/05/17 18:32 Consult to Oncology [CONS] Routine Consulting Provider: [facility] Reason for Consult: Pt. has hx of lung cancer and is now admitted w/HCAP dx. Cancer dx in October 2016. Reports finishing first round of chemo tx approx. 4 weeks ago. Call Completed: No 05/05/17 19:58 Consult to Nutrition [CONS] Routine Comment: Consulting Provider: NUTRITION Reason for Dietary Consult: PO Supplementation Discharging clinician: Gab Mackey Anticipated date of discharge: 05/10/17 - Constitutional Vitals: Temp Pulse Resp BP Pulse Ox 98.3 F 103 16 142/78 95 05/10/17 11:15 05/10/17 11:15 05/10/17 11:15 05/10/17 11:15 05/10/17 11:15 General appearance: Present: cooperative, mild distress (Respiratory), A&O X 3, pleasant, underweight, answers questions appropriately - Respiratory Respiratory exam: Present: CTAB. Absent: accessory muscle use, rales, rhonchi, wheezes - Cardiovascular Cardiovascular exam: Present: RRR, +S1, +S2. Absent: diastolic murmur, gallop, rubs, systolic murmur - GI/Abdominal GI/Abdominal exam: Present: normal bowel sounds, soft, no peritoneal signs. Absent: distended, tenderness - Extremities Exam Extremities exam: Present: warm, radial pulses palpable and symmetrical. Absent : calf tenderness, cyanotic, pedal edema - Patient Status Disposition: Home Health Service Condition: Good Functional capacity at discharge: wheelchair bound Overall status at discharge: patient is progressing back to baseline - Discharge Instructions Instructions: Chronic Obstructive Pulmonary Disease (DC) Follow Up With: Ron Ward MD [Primary Care Provider] - 05/16/17 10:15 am - Diet and Activity Activity: as per physical therapy Diet: advance to your usual diet <Carlos Cox - Last Filed: 05/10/17 15:10> Orders not resulted at time of discharge: Pending orders 05/08/17 11:57 AFB Culture, Respiratory [TB] Routine AFB Smear [TB] Routine Culture,Respiratory [RM] Routine Fungal Culture [MYC] Routine 05/09/17 13:12 AFB Culture, Respiratory [TB] Routine AFB Smear [TB] Routine Culture,Respiratory [RM] Routine Fungal Culture [MYC] Routine Gram Stain [RM] Routine Cytology [PTH] Routine Date of Encounter: 05/10/17 Hospital course: Ms. Keenan is a 61 year old female - Time Spent with Patient Total time spent providing and/or coordinating discharge services: Date of admission: 05/05/17 18:16 Primary care physician: Ron Ward MD Consults: 05/05/17 18:29 Consult to Pulmonology [CONS] Routine Consulting Provider: [facility] Reason for Consult: Patient has hx of lung cancer dx and was admitted for pneumonia on 05/02 and discharged on 05/04. Now returns w/worsening respiratory sx. Hx of COPD and previous tobacco abuse w/1.5-2 PPD. Abx, solumedrol, and DuoNebs ordered. Call Completed: No 05/05/17 18:32 Consult to Oncology [CONS] Routine Consulting Provider: [facility] Reason for Consult: Pt. has hx of lung cancer and is now admitted w/HCAP dx. Cancer dx in October 2016. Reports finishing first round of chemo tx approx. 4 weeks ago. Call Completed: No 05/05/17 19:58 Consult to Nutrition [CONS] Routine Comment: Consulting Provider: NUTRITION Reason for Dietary Consult: PO Supplementation - Constitutional Vitals: Temp Pulse Resp BP Pulse Ox 98.3 F 103 16 142/78 95 05/10/17 11:15 05/10/17 11:15 05/10/17 11:15 05/10/17 11:15 05/10/17 11:15 - Attending Attestation I performede an independent interview and exam of this pt. I agree with the findings, assessment and plan of Dr. Mackey, internal medicine web design intern. Patient will continue with Augmentin for a total 10 day course. She will have a prolonged steroid taper as outlined. She will need close follow-up with her oncologist and will likely need radiation to help shrink tumor burden to assist in maintaining patency of her airway. She otherwise was doing well and deemed stable for discharge. 46 minutes was spent on discharge and coordination of care.
--- NOTE | 2017-05-10 13:50 | Physician Discharge Referral ---
Home Health/Hosp Referral Info Transfer to: Home Health Provider in Charge Post Discharge: PCP - Diagnosis (1) HCAP (healthcare-associated pneumonia) Priority: Primary Status: Acute (2) Weakness Priority: Primary Status: Acute (3) Acute exacerbation of chronic obstructive airways disease Priority: Primary Status: Acute (4) Thrush Priority: Primary Status: Acute (5) Small cell lung cancer Priority: Secondary Status: Chronic (6) Failure to thrive Priority: Primary Status: Chronic (7) HTN (hypertension) Priority: Primary Status: Chronic (8) DVT prophylaxis Priority: Primary Status: Acute - Respiratory Orders Oxygen / L per min (2 L) Smoking Cessation: Smoking cessation has been advised. For more information, call the [place] Tobacco Quit Line at 1-717-HJMI-NOW. - Diet/Nutrition Diet/Nutrition Orders: Regular - Activity Activity Orders: Ambulate - Services Needed Following services are medically necessary services: Home Health Aide - Transfer Medications Prescriptions: Amoxicillin/Clavulanate [Augmentin] 875 mg PO BIDWM 7 Days #14 tablet Nystatin 500,000 unit PO TID 7 Days #1 bottle predniSONE [PredniSONE] 10 mg PO DAILY 48 Days #118 tablet Home Medications: DULoxetine [Cymbalta] 30 mg PO HS 02/15/16 [History] Trazodone HCl 200 mg PO HS 02/15/16 [History] Albuterol Sulfate [Albuterol Inhaler] 2 puff IH Q6H PRN 10/14/16 [History] Budesonide/Formoterol 160/4.5 [Symbicort 160/4.5] 2 puff IH BIDR 10/14/16 [ History] Oxygen 2 l NS AD 10/14/16 [History] Tiotropium [Spiriva] 18 mcg IH DAILY 10/14/16 [History] Ascorbate Calcium [Vitamin C] 500 mg PO DAILY 12/14/16 [History] Polyethylene Glycol 3350 [MiraLAX] 17 gm PO DAILY PRN #30 powd.pack 12/22/16 [Rx ] Sennosides/Docusate Sodium [Senna-Docusate Sodium Tablet] 2 each PO BID PRN #60 tablet 12/22/16 [Rx] Calcium Carbonate/Vitamin D3 [Calcium 500 + Vit D Caplet] 2 each PO DAILY #60 tablet 12/26/16 [Rx] Cholecalciferol (D-3) [Vitamin D] 5,000 unit PO DAILY 02/02/17 [History] Melatonin [Melatin] 3 mg PO HS 02/02/17 [History] GuaiFENesin/Dextromethorphan [Mucinex Dm] 1 each PO BID 02/19/17 [History] LORazepam [Ativan] 0.5 mg PO BID PRN 30 Days #60 tablet 03/21/17 [Rx] OxyCODONE Immed Rel [Roxicodone 10 MG] 10 mg PO TID PRN 30 Days #90 tablet 04/22 [Rx] Albuterol Neb [Proventil Neb] 2.5 mg IH Q6H PRN 7 Days #30 vial 05/04/17 [Rx] Amoxicillin/Clavulanate [Augmentin] 875 mg PO BIDWM 7 Days #14 tablet 05/10/17 [ Rx] Nystatin 500,000 unit PO TID 7 Days #1 bottle 05/10/17 [Rx] predniSONE [PredniSONE] 10 mg PO DAILY 48 Days #118 tablet 05/10/17 [Rx] Allergies/Adverse Reactions: 3 Allergy/AdvReac Type Severity Reaction Status Date / Time No Known Allergies Allergy Verified 05/05/17 15:30 Certification: Further, I certify that my clinical findings support that this patient is homebound (i.e. absences from home require considerable and taxing effort and are for medical reasons or scientologist services or infrequently or short duration when for other reasons) because: Homebound Reason: Patient requires assistance of a person or device to safely leave home, Post-surgery restriction and or conditions limit ability to leave home, Leaving home requires considerable and taxing effort due to condition Attestation: My signature below is to certify that this patient is under my care and that I, or nurse practitioner, or a physician's title assistant working with me, has a face-to -face encounter with this patient.
== END 2017-05-10 14:43 | disposition home health service (06) | DRG 853 ==
LOC: EMEROO 14:03 → 2NENU 14:03
PROVIDERS: ADMIT Nurse Practitioner Family; ATTEND Family Medicine
PROC: ENDOBRF (2017-05-09 12:00)

== ENCOUNTER 2017-05-12 15:53 | Inpatient (IN) ==
[2017-05-12] MEDS ORDERED: Ipratropium/Albuterol Neb 3 ML IH ONE ×3 (16:21→17:55)
[2017-05-12] MEDS ORDERED: MethylPREDNISolone 40 MG/ML VIAL IVP ONE ×2 (16:38→17:55)
--- NOTE | 2017-05-12 16:49 | Emergency Department Note ---
Disposition Clinical Impression: Acute exacerbation of COPD with asthma, Shortness of breath, Pain Lung cancer Qualifiers: Laterality: right Lung location: hilum of lung Qualified Code(s): C34.01 - Malignant neoplasm of right main bronchus Disposition: Admitted As Inpatient Condition: Fair Referrals: Ron Ward MD [Primary Care Provider] - Time of Disposition: 19:59 SOB HPI - General Chief Complaint: ED Shortness of Breath/Dyspnea Stated Complaint: NOHELIA Time Seen by Provider: 05/12/17 16:04 Source: patient Mode of arrival: wheelchair Limitations: no limitations Nursing Notes Reviewed: Yes Vital Signs Reviewed: Yes - History of Present Illness Domi Keenan is a 61 year old female who presents with shortness of breath just prior to arrival. She was recently discharged 2 days ago 05/10 for PNA/COPD exacerbation. Her history is significant for small cell lung cancer diagnosed October 2016. Patient reports shortness of breath, worsened with exertion, she has continued to take her home nebulizer, 2L home O2, she was taking outpatient Augmentin as continuation of her treatment for PNA. She denies chest pain, hemoptysis, syncope, fever, nausea/vomiting, or diaphoresis. Pt Subjective Complaint: shortness of breath Onset (ago): hour(s) - Related Data Home Medications Medication Instructions Recorded Confirmed DULoxetine [Cymbalta] 30 mg PO HS 02/15/16 05/05/17 Trazodone HCl 200 mg PO HS 02/15/16 05/05/17 Albuterol Sulfate [Albuterol 2 puff IH Q6H PRN 10/14/16 05/05/17 Inhaler] Budesonide/Formoterol 160/4.5 2 puff IH BIDR 10/14/16 05/05/17 [Symbicort 160/4.5] Oxygen 2 l NS AD 10/14/16 05/05/17 Tiotropium [Spiriva] 18 mcg IH DAILY 10/14/16 05/05/17 Ascorbate Calcium [Vitamin C] 500 mg PO DAILY 12/14/16 05/05/17 Cholecalciferol (D-3) [Vitamin D] 5,000 unit PO DAILY 02/02/17 05/05/17 Melatonin [Melatin] 3 mg PO HS 02/02/17 05/05/17 GuaiFENesin/Dextromethorphan 1 each PO BID 02/19/17 05/05/17 [Mucinex Dm] Previous Rx's Medication Instructions Recorded Polyethylene Glycol 3350 [MiraLAX] 17 gm PO DAILY PRN #30 powd.pack 12/22/16 Sennosides/Docusate Sodium 2 each PO BID PRN #60 tablet 12/22/16 [Senna-Docusate Sodium Tablet] Calcium Carbonate/Vitamin D3 2 each PO DAILY #60 tablet 12/26/16 [Calcium 500 + Vit D Caplet] LORazepam [Ativan] 0.5 mg PO BID PRN 30 Days #60 03/21/17 tablet OxyCODONE Immed Rel [Roxicodone 10 10 mg PO TID PRN 30 Days #90 tablet 04/22/17 MG] Albuterol Neb [Proventil Neb] 2.5 mg IH Q6H PRN 7 Days #30 vial 05/04/17 Amoxicillin/Clavulanate [Augmentin] 875 mg PO BIDWM 7 Days #14 tablet 05/10/17 Nystatin 500,000 unit PO TID 7 Days #1 05/10/17 bottle predniSONE [PredniSONE] 10 mg PO DAILY 48 Days #118 tablet 05/10/17 Allergies Allergy/AdvReac Type Severity Reaction Status Date / Time No Known Allergies Allergy Verified 05/05/17 15:30 Constitutional: Denies: fever ENT ED: Denies: congestion Cardiovascular: Denies: chest pain, palpitations Respiratory: Reports: dyspnea, wheezes. 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 Absent: respiratory distress, stridor, accessory muscle use - Cardiovascular Cardiovascular exam: Present: tachycardia. Absent: systolic murmur, diastolic murmur, rubs, gallop - Abdominal Exam Abdominal exam: Present: soft, Non-Tender. Absent: distention, guarding, pulsatile mass - Back Exam Back exam: Absent: vertebral tenderness - Neurological Exam Neurological exam: Present: alert, oriented X3 - Psychiatric Psychiatric exam: Present: normal affect, normal mood - Skin Skin exam: Present: warm. Absent: cyanosis Course Course Narrative: Onset of nohelia prior to arrival, patient recently discharged from [facility] 05/10 for PNA/COPD exacerbation. On Augmentin since before discharge. Patient is conversant on exam on 2L O2, she is tachycardic, there is diffuse wheeze, no cyanosis. CXR shows improved R lower lobe opacity compared to prior study. Troponin negative. D-dimer 728. ECG unremarkable. Duoneb therapy, solumedrol has provided moderate relief, saturating in the low- mid 90s. CTA was planned, however due to new MASOUD, decision made for patient to be stabilized prior to possible CTA. This was discussed with the admitting hospitalist who agreed to admit for evaluation of dyspnea/COPD exacerbation. Vital Signs Temperature 98 F 05/12/17 15:59 Pulse Rate 110 05/12/17 15:59 Respiratory Rate 24 05/12/17 15:59 Blood Pressure 149/81 05/12/17 15:59 O2 Sat by Pulse Oximetry 96 05/12/17 15:59 Temperature 98 F 05/12/17 15:59 Pulse Rate 104 05/12/17 19:21 Respiratory Rate 24 05/12/17 19:21 Blood Pressure 143/83 05/12/17 19:21 O2 Sat by Pulse Oximetry 93 05/12/17 19:21 Oxygen Delivery Oxygen Delivery Nasal Cannula Shortness of Breath/Dyspnea - Medical Records Medical records reviewed: Yes I reviewed the patient's medical records. - Lab Data Lab results reviewed: Yes I reviewed the patient's lab results. Result diagrams: 05/12/17 16:40 05/12/17 16:40 Lab Results 05/12/17 05/12/17 05/12/17 Range/Units 16:40 16:40 16:40 WBC 9.7 (4.3-11.1) K/mcL RBC 3.92 (3.82-4.97) M/mcL Hgb 11.4 L (11.5-15.4) g/dL Hct 37.1 (35.3-44.9) % MCV 94.6 (83.0-100.0) fL MCH 29.1 (28.0-33.3) pg MCHC 30.7 L (31.6-35.5) g/dL RDW 15.9 H (11.5-14.5) % Plt Count 259 (140-400) K/mcL MPV 9.4 (9.4-12.4) fL Immature Gran % 0.5 (0-4) % Seg Neutrophils % 93.4 % Lymphocytes % 4.7 % Monocytes % 1.3 % Eosinophils % 0.1 % Basophils % 0.0 % Neutrophils # 9.0 H (1.6-8.9) K/mcL Lymphocytes # 0.5 L (0.6-4.6) K/mcL Monocytes # 0.1 (0.0-1.3) K/mcL Eosinophils # 0.0 (0.0-0.6) K/mcL Basophils # 0.0 (0.0-0.2) K/mcL D-Dimer 728 H (0-500) ng/mLFEU Sodium 139 (136-145) mEq/L Potassium 3.8 (3.5-5.1) mEq/L Chloride 108 H (98-107) mEq/L Carbon Dioxide 28 (23-29) mEq/L BUN 19 (8-23) mg/dL Creatinine 1.43 H (0.60-1.20) mg/dL Est GFR ( Amer) 45 L (> 60) Est GFR (Non-Af Amer) 37 L (> 60) BUN/Creatinine Ratio 13 (6-26) Glucose 147 H (70-105) mg/dL Calculated Osmolality 293 (280-300) Calcium 8.8 (8.6-10.3) mg/dL Troponin I < 0.03 (< 0.04) ng/mL Urine Color (Yellow) Urine Clarity (Clear) Urine pH (5.0-8.0) pH Units Ur Specific [place] (1.010-1.025) Urine Protein (Neg-Trace) mg/dL Urine Glucose (UA) (Normal) mg/dL Urine Ketones (Negative) mg/dL Urine Blood (Negative) Urine Nitrite (Negative) Urine Bilirubin (Negative) Urine Urobilinogen (Normal) mg/dL Ur Leukocyte Esterase (Negative) Urine Microscopic RBC (0-3) per hpf Urine Microscopic WBC (0-3) per hpf Ur Squamous Epith Cells (None-Few) per lpf Urine Bacteria (None-Few) per hpf Hyaline Casts (None-Few) per lpf Ur Culture Indicated? (NO) 05/12/17 Range/Units 18:42 WBC (4.3-11.1) K/mcL RBC (3.82-4.97) M/mcL Hgb (11.5-15.4) g/dL Hct (35.3-44.9) % MCV (83.0-100.0) fL MCH (28.0-33.3) pg MCHC (31.6-35.5) g/dL RDW (11.5-14.5) % Plt Count (140-400) K/mcL MPV (9.4-12.4) fL Immature Gran % (0-4) % Seg Neutrophils % % Lymphocytes % % Monocytes % % Eosinophils % % Basophils % % Neutrophils # (1.6-8.9) K/mcL Lymphocytes # (0.6-4.6) K/mcL Monocytes # (0.0-1.3) K/mcL Eosinophils # (0.0-0.6) K/mcL Basophils # (0.0-0.2) K/mcL D-Dimer (0-500) ng/mLFEU Sodium (136-145) mEq/L Potassium (3.5-5.1) mEq/L Chloride (98-107) mEq/L Carbon Dioxide (23-29) mEq/L BUN (8-23) mg/dL Creatinine (0.60-1.20) mg/dL Est GFR ( Amer) (> 60) Est GFR (Non-Af Amer) (> 60) BUN/Creatinine Ratio (6-26) Glucose (70-105) mg/dL Calculated Osmolality (280-300) Calcium (8.6-10.3) mg/dL Troponin I (< 0.04) ng/mL Urine Color Yellow (Yellow) Urine Clarity Turbid A (Clear) Urine pH 7.5 (5.0-8.0) pH Units Ur Specific [place] 1.021 (1.010-1.025) Urine Protein Trace (Neg-Trace) mg/dL Urine Glucose (UA) Normal (Normal) mg/dL Urine Ketones Negative (Negative) mg/dL Urine Blood Negative (Negative) Urine Nitrite Negative (Negative) Urine Bilirubin Negative (Negative) Urine Urobilinogen Normal (Normal) mg/dL Ur Leukocyte Esterase Negative (Negative) Urine Microscopic RBC 5-15 H (0-3) per hpf Urine Microscopic WBC 0-3 (0-3) per hpf Ur Squamous Epith Cells Many H (None-Few) per lpf Urine Bacteria None Seen (None-Few) per hpf Hyaline Casts None Seen (None-Few) per lpf Ur Culture Indicated? NO (NO) - Radiology Data Radiology results reviewed: Yes I reviewed the patient's radiology results. Chest X-Ray 05/12/17 16:20 IMPRESSION: Improved but persistent right lower lobe opacity. No new focal consolidation. D/ / 05/12/2017 17:21:17 Vishal Burris MD / [facility] Interpreting Provider: Vishal Burris MD Chest CT 05/12/17 18:01 IMPRESSION: No significant interval change in right hilar mass with occlusion of bronchus intermedius and filling defects within lower lobe and middle lobe airways, compatible with known neoplasm. Persistent findings of manjeet and hepatic metastatic disease. Nodular infiltrate within the right middle lobe and right lower lobe again noted, which can reflect infection or lymphangitic carcinomatosis. Possible osseous metastatic disease. Nuclear medicine bone scan may be helpful for further assessment. D/ / Sathish Patel MD / Sathish Patel MD Interpreting Provider: Sathish Patel MD Attestation Statement - Attestation Attestation: I, Jerod Barfield DO, examined this patient [id number] and my medical decision-making was reviewed with Jaun Eagle PGY-1, Resident Physician. I agree with the documented findings, disposition and treatment plan as described except to the extent set forth below. Please see my progress notes for details.
[2017-05-12 16:55] LABS: Eosinophils % 0.1 %; Hematocrit 37.1 % (35.3-44.9); Hemoglobin 11.4 g/dL (11.5-15.4); Immature Granulocytes % 0.5 % (0-4); Lymphocytes # 0.5 K/mcL (0.6-4.6); Lymphocytes % 4.7 %; Mean Corpuscular HGB Conc 30.7 g/dL (31.6-35.5); Mean Corpuscular Hemoglobin 29.1 pg (28.0-33.3); Mean Corpuscular Volume 94.6 fL (83.0-100.0); Mean Platelet Volume 9.4 fL (9.4-12.4); Monocytes # 0.1 K/mcL (0.0-1.3); Monocytes % 1.3 %; Platelet Count 259 K/mcL (140-400); Red Blood Count 3.92 M/mcL (3.82-4.97); Red Cell Distribution Width 15.9 % (11.5-14.5); Segmented Neutrophils % 93.4 %
[2017-05-12 17:10] LABS: BUN/Creatinine Ratio 13 (6-26); Blood Urea Nitrogen 19 mg/dL (8-23); Calcium 8.8 mg/dL (8.6-10.3); Carbon Dioxide 28 mEq/L (23-29); Chloride 108 mEq/L (98-107); Glucose 147 mg/dL (70-105); Osmolality,Calculated 293 (280-300); Potassium 3.8 mEq/L (3.5-5.1); Sodium 139 mEq/L (136-145); eGFR For African Americans 45 (> 60); eGFR For Non-African Americans 37 (> 60)
[2017-05-12 17:18] LABS: Troponin I < 0.03 ng/mL (< 0.04)
[2017-05-12] MEDS ORDERED: 0.9 % Sodium Chloride 1,000 ML IVC ONE (17:26)
[2017-05-12] MEDS ORDERED: *HR* HYDROcodone/Acet 5/325 mg TABLET PO ONE (17:40)
--- NOTE | 2017-05-12 18:39 | Emergency Department Note ---
Disposition Clinical Impression: Acute exacerbation of COPD with asthma, Shortness of breath, Pain Lung cancer Qualifiers: Laterality: right Lung location: lower lobe of lung Qualified Code(s): C34.31 - Malignant neoplasm of lower lobe, right bronchus or lung Disposition: Admitted As Inpatient Condition: Fair Referrals: Ron Ward MD [Primary Care Provider] - Time of Disposition: 19:54 General Adult HPI - General Chief complaint: ED Shortness of Breath/Dyspnea Stated complaint: NOHELIA Time Seen by Provider: 05/12/17 16:04 Source: patient Mode of arrival: wheelchair Limitations: no limitations - History of Present Illness Pain Scale: 7 - Related Data Home Medications Medication Instructions Recorded Confirmed DULoxetine [Cymbalta] 30 mg PO HS 02/15/16 05/05/17 Trazodone HCl 200 mg PO HS 02/15/16 05/05/17 Albuterol Sulfate [Albuterol 2 puff IH Q6H PRN 10/14/16 05/05/17 Inhaler] Budesonide/Formoterol 160/4.5 2 puff IH BIDR 10/14/16 05/05/17 [Symbicort 160/4.5] Oxygen 2 l NS AD 10/14/16 05/05/17 Tiotropium [Spiriva] 18 mcg IH DAILY 10/14/16 05/05/17 Ascorbate Calcium [Vitamin C] 500 mg PO DAILY 12/14/16 05/05/17 Cholecalciferol (D-3) [Vitamin D] 5,000 unit PO DAILY 02/02/17 05/05/17 Melatonin [Melatin] 3 mg PO HS 02/02/17 05/05/17 GuaiFENesin/Dextromethorphan 1 each PO BID 02/19/17 05/05/17 [Mucinex Dm] Previous Rx's Medication Instructions Recorded Polyethylene Glycol 3350 [MiraLAX] 17 gm PO DAILY PRN #30 powd.pack 12/22/16 Sennosides/Docusate Sodium 2 each PO BID PRN #60 tablet 12/22/16 [Senna-Docusate Sodium Tablet] Calcium Carbonate/Vitamin D3 2 each PO DAILY #60 tablet 12/26/16 [Calcium 500 + Vit D Caplet] LORazepam [Ativan] 0.5 mg PO BID PRN 30 Days #60 03/21/17 tablet OxyCODONE Immed Rel [Roxicodone 10 10 mg PO TID PRN 30 Days #90 tablet 04/22/17 MG] Albuterol Neb [Proventil Neb] 2.5 mg IH Q6H PRN 7 Days #30 vial 05/04/17 Amoxicillin/Clavulanate [Augmentin] 875 mg PO BIDWM 7 Days #14 tablet 05/10/17 Nystatin 500,000 unit PO TID 7 Days #1 05/10/17 bottle predniSONE [PredniSONE] 10 mg PO DAILY 48 Days #118 tablet 05/10/17 Allergies Allergy/AdvReac Type Severity Reaction Status Date / Time No Known Allergies Allergy Verified 05/05/17 15:30 Constitutional: Denies: fever ENT ED: Denies: congestion Cardiovascular: Denies: chest pain, palpitations Respiratory: Reports: dyspnea, wheezes. 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 history - Social History Smoking Status: Former smoker Smokeless Tobacco Status: No Alcohol use: Reports: none Drug use: Reports: none Physical Exam - General Limitations: no limitations General appearance: alert, in distress Course Vital Signs Temperature 98 F 05/12/17 15:59 Pulse Rate 110 05/12/17 15:59 Respiratory Rate 24 05/12/17 15:59 Blood Pressure 149/81 05/12/17 15:59 O2 Sat by Pulse Oximetry 96 05/12/17 15:59 Temperature 98 F 05/12/17 15:59 Pulse Rate 104 05/12/17 19:21 Respiratory Rate 24 05/12/17 19:21 Blood Pressure 143/83 05/12/17 19:21 O2 Sat by Pulse Oximetry 93 05/12/17 19:21 Oxygen Delivery Oxygen Delivery Nasal Cannula Medical Decision Making - Lab Data Result diagrams: 05/12/17 16:40 05/12/17 16:40 Lab Results 05/12/17 05/12/17 05/12/17 Range/Units 16:40 16:40 16:40 WBC 9.7 (4.3-11.1) K/mcL RBC 3.92 (3.82-4.97) M/mcL Hgb 11.4 L (11.5-15.4) g/dL Hct 37.1 (35.3-44.9) % MCV 94.6 (83.0-100.0) fL MCH 29.1 (28.0-33.3) pg MCHC 30.7 L (31.6-35.5) g/dL RDW 15.9 H (11.5-14.5) % Plt Count 259 (140-400) K/mcL MPV 9.4 (9.4-12.4) fL Immature Gran % 0.5 (0-4) % Seg Neutrophils % 93.4 % Lymphocytes % 4.7 % Monocytes % 1.3 % Eosinophils % 0.1 % Basophils % 0.0 % Neutrophils # 9.0 H (1.6-8.9) K/mcL Lymphocytes # 0.5 L (0.6-4.6) K/mcL Monocytes # 0.1 (0.0-1.3) K/mcL Eosinophils # 0.0 (0.0-0.6) K/mcL Basophils # 0.0 (0.0-0.2) K/mcL D-Dimer 728 H (0-500) ng/mLFEU Sodium 139 (136-145) mEq/L Potassium 3.8 (3.5-5.1) mEq/L Chloride 108 H (98-107) mEq/L Carbon Dioxide 28 (23-29) mEq/L BUN 19 (8-23) mg/dL Creatinine 1.43 H (0.60-1.20) mg/dL Est GFR ( Amer) 45 L (> 60) Est GFR (Non-Af Amer) 37 L (> 60) BUN/Creatinine Ratio 13 (6-26) Glucose 147 H (70-105) mg/dL Calculated Osmolality 293 (280-300) Calcium 8.8 (8.6-10.3) mg/dL Troponin I < 0.03 (< 0.04) ng/mL Urine Color (Yellow) Urine Clarity (Clear) Urine pH (5.0-8.0) pH Units Ur Specific [place] (1.010-1.025) Urine Protein (Neg-Trace) mg/dL Urine Glucose (UA) (Normal) mg/dL Urine Ketones (Negative) mg/dL Urine Blood (Negative) Urine Nitrite (Negative) Urine Bilirubin (Negative) Urine Urobilinogen (Normal) mg/dL Ur Leukocyte Esterase (Negative) Urine Microscopic RBC (0-3) per hpf Urine Microscopic WBC (0-3) per hpf Ur Squamous Epith Cells (None-Few) per lpf Urine Bacteria (None-Few) per hpf Hyaline Casts (None-Few) per lpf Ur Culture Indicated? (NO) 05/12/17 Range/Units 18:42 WBC (4.3-11.1) K/mcL RBC (3.82-4.97) M/mcL Hgb (11.5-15.4) g/dL Hct (35.3-44.9) % MCV (83.0-100.0) fL MCH (28.0-33.3) pg MCHC (31.6-35.5) g/dL RDW (11.5-14.5) % Plt Count (140-400) K/mcL MPV (9.4-12.4) fL Immature Gran % (0-4) % Seg Neutrophils % % Lymphocytes % % Monocytes % % Eosinophils % % Basophils % % Neutrophils # (1.6-8.9) K/mcL Lymphocytes # (0.6-4.6) K/mcL Monocytes # (0.0-1.3) K/mcL Eosinophils # (0.0-0.6) K/mcL Basophils # (0.0-0.2) K/mcL D-Dimer (0-500) ng/mLFEU Sodium (136-145) mEq/L Potassium (3.5-5.1) mEq/L Chloride (98-107) mEq/L Carbon Dioxide (23-29) mEq/L BUN (8-23) mg/dL Creatinine (0.60-1.20) mg/dL Est GFR ( Amer) (> 60) Est GFR (Non-Af Amer) (> 60) BUN/Creatinine Ratio (6-26) Glucose (70-105) mg/dL Calculated Osmolality (280-300) Calcium (8.6-10.3) mg/dL Troponin I (< 0.04) ng/mL Urine Color Yellow (Yellow) Urine Clarity Turbid A (Clear) Urine pH 7.5 (5.0-8.0) pH Units Ur Specific [place] 1.021 (1.010-1.025) Urine Protein Trace (Neg-Trace) mg/dL Urine Glucose (UA) Normal (Normal) mg/dL Urine Ketones Negative (Negative) mg/dL Urine Blood Negative (Negative) Urine Nitrite Negative (Negative) Urine Bilirubin Negative (Negative) Urine Urobilinogen Normal (Normal) mg/dL Ur Leukocyte Esterase Negative (Negative) Urine Microscopic RBC 5-15 H (0-3) per hpf Urine Microscopic WBC 0-3 (0-3) per hpf Ur Squamous Epith Cells Many H (None-Few) per lpf Urine Bacteria None Seen (None-Few) per hpf Hyaline Casts None Seen (None-Few) per lpf Ur Culture Indicated? NO (NO) Attestation Statement - Attestation Attestation: I, Jerod Barfield DO, examined this patient [id number] and my medical decision-making was reviewed with Jaun Eagle PGY-1, Resident Physician. I agree with the documented findings, disposition and treatment plan as described except to the extent set forth below. Please see my progress notes for details. 61-year-old female presents to the emergency room complaining of shortness of breath. Patient is currently being treated for bronchitis with Augmentin. Patient has known right lower lobe cancer. Is currently in chemoradiation. She has not had any of these issues in the last couple days. Patient denies any trauma or injury. Denies any fevers or chills nausea vomiting or diarrhea. Denies any headache or vision change. She does have mild discomfort with deep inspiration. She also has increased work of breathing tachypnea on presentation as well as tachycardia. Concern is noted for possible pulmonary emboli versus cardiac related issue versus pulmonary infection at this time. Patient will screening labs including CBC chemistry chest x-ray and urinalysis. D-dimer will be around as well as troponin and EKG. If any of these are abnormal we will review and discuss further intervention. Patient will be provided with breathing treatments and steroids. She started been on antibiotic. Physical exam shows a frail-appearing female with some increased work of breathing. Her lungs are diminished on the right side with intermittent wheezing. Patient was provided with 2 breathing treatments prior to my evaluation. She denies any chest pain fevers chills nausea vomiting or diarrhea. Denies any headache vision changes at this time. Patient will have pulmonary and cardiac evaluation completed and disposition will be determined. See detailed documentation the physical exam, medical intervention, medical decision-making and disposition in the resident physician's note. No critical care but this patient's treatment course at this time. 1725 Patient found to have persistent right lower lobe opacity consistent with her neoplasm. Patient's labs are abnormal but at baseline for her. She does have new acute renal insufficiency. Patient has elevated d-dimer which is concerning for possible pulmonary emboli despite her history of cancer as well as the tachycardia and tachypnea. Patient has renal insufficiency this time indicates inability to have CT angiography of the chest. Patient will be given a single dose of heparin here in the emergency room after discussion is had with the hospitalist. Patient will require admission. Plain CT scan of the chest is ordered at this time for further evaluation differentiation of the pulmonary related infection. Disposition will be admission the hospital. No other issues noted at this point. Labs EKG and troponin are unremarkable. 1915 Patient found to have what appears to be possible carcinomatosis. CT the chest is. Be stable. Discussion will be had about possible heparin infusion after hospitalist was contacted for admission. pain Medication was given. Patient will be admitted at this time.
[2017-05-12] MEDS ORDERED: *HR* FentaNYL (PF) 100 MCG/2 ML VIAL IVP ONE (18:41)
[2017-05-12 18:51] LABS: Bilirubin,Urine Negative (Negative); Blood,Urine Negative (Negative); Clarity,Urine Turbid (Clear); Color,Urine Yellow (Yellow); Glucose,Urine (UA) Normal (Normal); Ketones,Urine Negative (Negative); Leukocyte Esterase,Urine Negative (Negative); Nitrite,Urine Negative (Negative); PH,Urine 7.5 pH Units (5.0-8.0); Protein,Urine Trace mg/dL (Neg-Trace); Specific Gravity,Urine 1.021 (1.010-1.025); Urobilinogen,Urine Normal (Normal)
[2017-05-12 18:52] LABS: Bacteria,Urine None Seen per hpf (None-Few); Hyaline Casts,Urine None Seen per lpf (None-Few); Squamous Epithelial Cell,Urine Many per lpf (None-Few); WBC,Urine 0-3 per hpf (0-3)
[2017-05-12] MEDS ORDERED: *HR* Heparin 5,000 UNIT/ML VIAL SQ ONE (19:52)
--- NOTE | 2017-05-12 22:08 | Internal Med History&Physical ---
Date of Encounter: 05/12/17 Time of Encounter: 22:07 Assessment and Plan (1) Acute exacerbation of chronic obstructive airways disease Current visit: No Status: Acute IV steroids, DuoNeb's, add azithromycin send RVP tele, pulse ox (2) Pneumonia Current visit: No Status: Acute Was sent home on Augmentin. Given inpatient admission would continue IV Rocephin for now Qualifiers: Pneumonia type: due to unspecified organism Laterality: right Lung location: unspecified part of lung Qualified Code(s): J18.9 - Pneumonia, unspecified organism (3) Lung cancer Current visit: Yes Status: Chronic Extensive stage SCLC, follows with Oncology , long-term prognosis Limited Qualifiers: Laterality: right Lung location: lower lobe of lung Qualified Code(s): C34.31 - Malignant neoplasm of lower lobe, right bronchus or lung Internal Medicine - H&P: HPI Chief complaint: SOB History of present illness: Ms. Keenan is a 61 year old female with a history of extensive stage small cell lung cancer, COPD on baseline 2 L oxygen who presents with COPD exacerbation. Of note patient was recently discharged 2 days ago from [facility] for pneumonia and had been sent home on a course of prednisone and Augmentin. However symptoms did not improve in fact it worsened this afternoon with worsening shortness of breath, dyspnea on exertion around the house. At baseline she is independent and she has quit smoking since October 2016. She is established with oncology for small cell lung cancer. EKG personally reviewed with rate of 101, sinus tachycardia, nonspecific ST-T changes CT/CT chest wo con IMPRESSION: No significant interval change in right hilar mass with occlusion of bronchus intermedius and filling defects within lower lobe and middle lobe airways, compatible with known neoplasm. Persistent findings of manjeet and hepatic metastatic disease. Nodular infiltrate within the right middle lobe and right lower lobe again noted, which can reflect infection or lymphangitic carcinomatosis. Possible osseous metastatic disease. Nuclear medicine bone scan may be helpful for further assessment. XR/XR chest 1V portable IMPRESSION: Improved but persistent right lower lobe opacity. No new focal consolidation. Past Med Surg Social Fam HX - Past Medical History Medical history: cancer, COPD, hypertension Psychiatric history: anxiety, depression - Past Surgical History Surgical History: hysterectomy - Social History Smoking Status: Former smoker Smokeless Tobacco Status: No Alcohol use: none Drug use: none - Family History Sister Family Member Ethnicity: Non- Living Status: Still Living Hx Family Cardiac Disorders: Yes (HTN) Hx Family Cancer: Yes (Lymphoma) Mother Family Member Ethnicity: Non- Living Status: Hx Family Cardiac Disorders: Yes (Aneurysm, HTN) Hx Family Respiratory Disorders: Yes (COPD) Father Adopted: No Family Member Ethnicity: Non- Living Status: Hx Family Cardiac Disorders: Yes (CHF, CAD, CA) Hx Family Respiratory Disorders: Yes (mother copd) Hx Family Cancer: No Hx Family GI Disorders: No Hx Family Endocrine Disorder: No Hx Family Neuromuscular Disorders: No Hx Family Neurologic Disorders: No Hx Family HEENT Disorders: No Hx Family Autoimmune Disorders: No Internal Medicine - H&P: Meds DULoxetine [Cymbalta] 30 mg PO HS 02/15/16 [History] Trazodone HCl 200 mg PO HS 02/15/16 [History] Albuterol Sulfate [Albuterol Inhaler] 2 puff IH Q6H PRN 10/14/16 [History] Budesonide/Formoterol 160/4.5 [Symbicort 160/4.5] 2 puff IH BIDR 10/14/16 [ History] Oxygen 2 l NS AD 10/14/16 [History] Tiotropium [Spiriva] 18 mcg IH DAILY 10/14/16 [History] Ascorbate Calcium [Vitamin C] 500 mg PO DAILY 12/14/16 [History] Polyethylene Glycol 3350 [MiraLAX] 17 gm PO DAILY PRN #30 powd.pack 12/22/16 [Rx ] Sennosides/Docusate Sodium [Senna-Docusate Sodium Tablet] 2 each PO BID PRN #60 tablet 12/22/16 [Rx] Calcium Carbonate/Vitamin D3 [Calcium 500 + Vit D Caplet] 2 each PO DAILY #60 tablet 12/26/16 [Rx] Cholecalciferol (D-3) [Vitamin D] 5,000 unit PO DAILY 02/02/17 [History] Melatonin [Melatin] 3 mg PO HS 02/02/17 [History] GuaiFENesin/Dextromethorphan [Mucinex Dm] 1 each PO BID 02/19/17 [History] LORazepam [Ativan] 0.5 mg PO BID PRN 30 Days #60 tablet 03/21/17 [Rx] OxyCODONE Immed Rel [Roxicodone 10 MG] 10 mg PO TID PRN 30 Days #90 tablet 04/22 [Rx] Albuterol Neb [Proventil Neb] 2.5 mg IH Q6H PRN 7 Days #30 vial 05/04/17 [Rx] Amoxicillin/Clavulanate [Augmentin] 875 mg PO BIDWM 7 Days #14 tablet 05/10/17 [ Rx] Nystatin 500,000 unit PO TID 7 Days #1 bottle 05/10/17 [Rx] predniSONE [PredniSONE] 10 mg PO DAILY 48 Days #118 tablet 05/10/17 [Rx] 3 Allergy/AdvReac Type Severity Reaction Status Date / Time No Known Allergies Allergy Verified 05/05/17 15:30 All Systems PM: A 10-system review of systems was performed and is negative for pertinent findings except as documented above in the HPI. Review of systems: ROS 14 point review of systems reviewed as best as possible given presentation. Pertinent positive or negative as per HPI or otherwise reviewed as negative - Constitutional Vitals: Temp Pulse Resp BP Pulse Ox 98 F 113 16 132/75 94 05/12/17 15:59 05/12/17 20:29 05/12/17 20:29 05/12/17 20:29 05/12/17 20:29 Exam: General - AAO x 3 Psych - Appropriate affect/speech. No agitation Eyes - CAIT. Eye lids intact. No scleral icterus Neuro - No gross peripheral or central neuro deficits on inspection Heart - Sinus. RRR. S1 and S2 present. No added HS/murmurs appreciated. No elevated JVD appreciated. Lung - Adequate air entry b/l, diffuse wheezes throughout, scattered bibasilar crackles GI - Soft, non-tender. No hepatosplenomegaly/ascites. BS+ - No CVA/suprapubic tenderness or palpable bladder distension Skin - Intact. No rash/petechiae/ecchymosis. Warm extremities Internal Med - H&P Results - Labs CBC & Chem 7: 05/12/17 16:40 05/12/17 16:40
[2017-05-12] MEDS ORDERED: *HR* LORazepam 0.5 MG TABLET PO PRN (22:13)
[2017-05-12] MEDS ORDERED: Sennosides/Docusate Sodium TABLET PO PRN (22:13)
[2017-05-12] MEDS ORDERED: Ipratropium/Albuterol Neb 3 ML IH PRN (22:15)
[2017-05-12] MEDS ORDERED: Naloxone 0.4 MG/ML INJ IVP PRN ×2 (22:20→22:21)
[2017-05-12] MEDS: Ipratropium/Albuterol Neb 3 ML IH SCH (22:37)
[2017-05-12] MEDS ORDERED: Azithromycin 500 MG in D5% in Water 250 ML IVPB SCH (23:00)
[2017-05-13] MEDS: 0.9 % Sodium Chloride 1,000 ML IVC SCH ×2 (00:17→23:02)
[2017-05-13] MEDS: MethylPREDNISolone 40 MG/ML VIAL IVP SCH ×5 (00:18→23:43)
[2017-05-13] MEDS: Melatonin 3 MG TABLET PO SCH ×2 (01:05→20:55)
[2017-05-13] MEDS: traZODone 50 MG TABLET PO SCH ×2 (01:05→20:55)
[2017-05-13 03:56] LABS: Basophils % 0.1 %; Hematocrit 33.6 % (35.3-44.9); Hemoglobin 10.4 g/dL (11.5-15.4); Immature Granulocytes % 0.5 % (0-4); Lymphocytes # 0.4 K/mcL (0.6-4.6); Lymphocytes % 4.4 %; Mean Corpuscular Hemoglobin 29.1 pg (28.0-33.3); Mean Corpuscular Volume 93.9 fL (83.0-100.0); Mean Platelet Volume 9.5 fL (9.4-12.4); Monocytes # 0.2 K/mcL (0.0-1.3); Monocytes % 1.9 %; Neutrophils # 7.5 K/mcL (1.6-8.9); Platelet Count 230 K/mcL (140-400); Red Blood Count 3.58 M/mcL (3.82-4.97); Red Cell Distribution Width 15.4 % (11.5-14.5); Segmented Neutrophils % 93.1 %
[2017-05-13 04:19] LABS: BUN/Creatinine Ratio 28 (6-26); Blood Urea Nitrogen 17 mg/dL (8-23); Carbon Dioxide 26 mEq/L (23-29); Chloride 109 mEq/L (98-107); Glucose 144 mg/dL (70-105); Osmolality,Calculated 290 (280-300); Potassium 4.2 mEq/L (3.5-5.1); Sodium 138 mEq/L (136-145); eGFR For African Americans > 60 (> 60); eGFR For Non-African Americans > 60 (> 60)
[2017-05-13] MEDS: Ipratropium/Albuterol Neb 3 ML IH SCH ×6 (05:05→23:36)
[2017-05-13] MEDS ORDERED: *HR* Enoxaparin 30 MG/0.3 ML SYRINGE SQ SCH (06:00)
[2017-05-13] MEDS: Budesonide/Formoterol 160/4.5 MDI IH SCH ×2 (08:55→19:44)
[2017-05-13] MEDS ORDERED: Tiotropium 18 MCG inhalation IH SCH (09:00)
[2017-05-13] MEDS ORDERED: cefTRIAXone 1,000 MG in Water for inj. (sterile) 20 ML 10 ML IVPB SCH (09:00)
[2017-05-13] MEDS ORDERED: Calcium 500 + Vit D PO SCH (09:00)
[2017-05-13] MEDS: Cholecalciferol (D-3) 1,000 UNIT TABLET PO SCH (09:04)
[2017-05-13] MEDS: GuaiFENesin/Dextromethorphan TABLET PO SCH ×2 (09:04→20:56)
[2017-05-13] MEDS: Ascorbic Acid 500 MG TABLET PO SCH (09:04)
[2017-05-13] MEDS: Nystatin SUSP 5 ML UD.LIQ PO SCH ×3 (09:04→20:56)
[2017-05-13] MEDS: Nicotine 21 MG PATCH.TD24 TD SCH (09:28)
[2017-05-13] MEDS: *HR* LORazepam 0.5 MG TABLET PO PRN ×2 (09:29→20:58)
[2017-05-13] MEDS: *HR* OxyCODONE Immed Rel 5 MG TABLET PO PRN ×2 (09:29→16:28)
--- NOTE | 2017-05-13 09:35 | Internal Med Progress Note ---
<Carlos Cox Maik - Last Filed: 05/13/17 12:34> Date of Encounter: 05/13/17 - Constitutional Vitals: Temp Pulse Resp BP Pulse Ox 98.8 F 114 16 148/82 100 05/13/17 11:16 05/13/17 11:16 05/13/17 11:16 05/13/17 11:16 05/13/17 11:16 Internal Medicine: Result - Labs CBC & Chem 7: 05/13/17 03:32 05/13/17 03:32 Labs: Short CBC 05/13/17 Range/Units 03:32 WBC 8.0 (4.3-11.1) K/mcL Hgb 10.4 L (11.5-15.4) g/dL Hct 33.6 L (35.3-44.9) % Plt Count 230 (140-400) K/mcL Neutrophils # 7.5 (1.6-8.9) K/mcL BMP 05/13/17 03:32 Sodium 138 Potassium 4.2 Chloride 109 H Carbon Dioxide 26 BUN 17 Creatinine 0.60 Glucose 144 H Calcium 8.0 L - ABG Interpretation ABG results: PT/INR, D-dimer D-Dimer 728 ng/mLFEU (0-500) H 05/12/17 16:40 Consult Discharge Plan - Plan Referrals: Ron Ward MD [Primary Care Provider] - - Attending Attestation I performed an independent interview and examine this patient. I agree with the findings, assessment, and plan of Dr. Greene, internal medicine sales intern. Patient will be returned to Augmentin antibiotics. Concern for worsening of her malignancy as opposed to new infection. We will discuss with pulmonary medicine who recently performed a dilatation procedure for her bronchial obstruction. Patient is feeling better today. She is hematologically stable. We will also need to discuss the case with her oncologist. All else as outlined above. <Joe Greene - Last Filed: 05/13/17 13:23> Date of Encounter: 05/13/17 Time of Encounter: 09:28 - Assessment and plan (1) Acute exacerbation of chronic obstructive airways disease Current Visit: No Status: Acute Assessment and plan: -IV steroids, DuoNeb's, add azithromycin -Respiratory infection panel -DuoNeb nebs 3 mL inhaled every 4 when necessary -Mucinex DM by mouth twice a day -Augmentin -Continuous telemetry (2) Pneumonia Current Visit: No Status: Resolved Assessment and plan: -Was sent home on Augmentin -Augmentin will be resumed today. Qualifiers: Pneumonia type: due to other aerobic Gram-negative bacteria Laterality: right Lung location: middle lobe of lung Qualified Code(s): J15.6 - Pneumonia due to other Gram-negative bacteria (3) Lung cancer Current Visit: Yes Status: Chronic Assessment and plan: -Extensive stage SCLC, follows with Oncology, long-term prognosis limited -Oncology consult Qualifiers: Laterality: right Lung location: lower lobe of lung Qualified Code(s): C34.31 - Malignant neoplasm of lower lobe, right bronchus or lung (4) DVT prophylaxis Current Visit: No Status: Acute Assessment and plan: -Lovenox 30 mg subcutaneous 0600 - Subjective Interval history: 61 female. Presented with shortness of breath. Was recently discharged for pneumonia/COPD exacerbation. Known history of small cell lung cancer diagnosed October 2016. Reported having shortness breath, worse with exertion; has been taking home nebulizer, 2 L of home oxygen, and outpatient Augmentin as continuation of treatment for pneumonia. Mild discomfort with deep inspiration. Was also tachycardic on presentation. Was admitted for likely COPD exacerbation. Started on IV steroids, DuoNebs, azithromycin, ceftriaxone. CT scan demonstrated the following: No significant changes in the right lower lobe mass. Nodular infiltrate within the right middle lobe and right lower lobe , possibly reflective of infection or lymphangitic carcinomatosis. Possible osseous metastatic disease. Nuclear medicine bone scan may be helpful for further assessment. Patient was seen and examined at bedside this morning. Patient reports that she is feeling much better today. Denies having any significant respiratory distress. Denies fever, chills, nausea, vomiting, productive sputum, or increased work of breathing. Currently on 2 L of oxygen via nasal cannula. Satting well. We will switch antibiotics to oral Augmentin. Patient is resting comfortably in bed and has no complaints at this time. - Constitutional Vitals: Temp Pulse Resp BP Pulse Ox 98.9 F 99 15 119/77 94 05/13/17 06:35 05/13/17 06:35 05/13/17 08:57 05/13/17 06:35 05/13/17 08:57 General appearance: Present: A&O X 3, answers questions appropriately - Head Head exam: Present: atraumatic, normocephalic - Eye Eye exam: Present: PERRL, conjuntiva pink, sclera anicteric Pupils: Present: PERRL - Neck Neck exam general surgery: Present: supple, trachea midline. Absent: lymphadenopathy - Respiratory Respiratory exam: Present: rhonchi, wheezes. Absent: accessory muscle use, rales - Cardiovascular Cardiovascular exam: Present: RRR, +S1, +S2. Absent: diastolic murmur, gallop, rubs, systolic murmur - Extremities Exam Extremities exam: Present: warm, radial pulses palpable and symmetrical. Absent : calf tenderness, cyanotic, pedal edema - Neurological Exam Neurological exam: Present: oriented X3, no focal deficits - Skin Skin exam: Present: dry, intact Internal Medicine: Result - Labs CBC & Chem 7: 05/13/17 03:32 05/13/17 03:32 Labs: Short CBC 05/13/17 Range/Units 03:32 WBC 8.0 (4.3-11.1) K/mcL Hgb 10.4 L (11.5-15.4) g/dL Hct 33.6 L (35.3-44.9) % Plt Count 230 (140-400) K/mcL Neutrophils # 7.5 (1.6-8.9) K/mcL BMP 05/13/17 03:32 Sodium 138 Potassium 4.2 Chloride 109 H Carbon Dioxide 26 BUN 17 Creatinine 0.60 Glucose 144 H Calcium 8.0 L - ABG Interpretation ABG results: PT/INR, D-dimer D-Dimer 728 ng/mLFEU (0-500) H 05/12/17 16:40
[2017-05-13] MEDS ORDERED: cefTRIAXone 1,000 MG in Water for inj. (sterile) 20 ML 10 ML IVP SCH (10:00)
[2017-05-14] MEDS: Ipratropium/Albuterol Neb 3 ML IH SCH ×6 (03:46→23:27)
[2017-05-14] MEDS: *HR* OxyCODONE Immed Rel 5 MG TABLET PO PRN ×2 (05:50→12:19)
[2017-05-14] MEDS: *HR* Enoxaparin 40 MG/0.4 ML SYRINGE SQ SCH (05:50)
[2017-05-14] MEDS: MethylPREDNISolone 40 MG/ML VIAL IVP SCH ×3 (05:50→17:40)
[2017-05-14 06:41] LABS: Basophils % 0.1 %; Hematocrit 34.7 % (35.3-44.9); Hemoglobin 10.8 g/dL (11.5-15.4); Immature Granulocytes % 0.5 % (0-4); Lymphocytes # 0.5 K/mcL (0.6-4.6); Lymphocytes % 4.3 %; Mean Corpuscular HGB Conc 31.1 g/dL (31.6-35.5); Mean Corpuscular Hemoglobin 29.5 pg (28.0-33.3); Mean Corpuscular Volume 94.8 fL (83.0-100.0); Monocytes # 0.5 K/mcL (0.0-1.3); Neutrophils # 10.7 K/mcL (1.6-8.9); Platelet Count 234 K/mcL (140-400); Red Blood Count 3.66 M/mcL (3.82-4.97); Red Cell Distribution Width 15.5 % (11.5-14.5); Segmented Neutrophils % 91.1 %
[2017-05-14 07:03] LABS: BUN/Creatinine Ratio 25 (6-26); Blood Urea Nitrogen 14 mg/dL (8-23); Calcium 8.3 mg/dL (8.6-10.3); Carbon Dioxide 24 mEq/L (23-29); Chloride 113 mEq/L (98-107); Glucose 116 mg/dL (70-105); Osmolality,Calculated 293 (280-300); Potassium 4.3 mEq/L (3.5-5.1); Sodium 141 mEq/L (136-145); eGFR For African Americans > 60 (> 60); eGFR For Non-African Americans > 60 (> 60)
--- NOTE | 2017-05-14 07:31 | Internal Med Progress Note ---
<oJe Greene - Last Filed: 05/14/17 14:21> Date of Encounter: 05/14/17 Time of Encounter: 09:30 - Assessment and plan (1) Acute exacerbation of chronic obstructive airways disease Current Visit: No Status: Acute Assessment and plan: -IV steroids, DuoNeb's, add azithromycin -Respiratory infection panel -DuoNeb nebs 3 mL inhaled every 4 when necessary -Mucinex DM by mouth twice a day -Augmentin -Continuous telemetry (2) Pneumonia Current Visit: No Status: Resolved Assessment and plan: -Was sent home on Augmentin -Augmentin -CT scan demonstrates possible lymphangitic carcinomatosis. -Oncology has been consulted Qualifiers: Pneumonia type: due to other aerobic Gram-negative bacteria Laterality: right Lung location: middle lobe of lung Qualified Code(s): J15.6 - Pneumonia due to other Gram-negative bacteria (3) Lung cancer Current Visit: Yes Status: Chronic Assessment and plan: -Extensive stage SCLC, follows with Oncology, long-term prognosis limited -Oncology consult Qualifiers: Laterality: right Lung location: lower lobe of lung Qualified Code(s): C34.31 - Malignant neoplasm of lower lobe, right bronchus or lung (4) DVT prophylaxis Current Visit: No Status: Acute Assessment and plan: -Lovenox 30 mg subcutaneous 0600 - Subjective Interval history: Patient was seen and examined at bedside this morning. Patient reports that she is feeling much better today. Denies having any significant respiratory distress. Denies fever, chills, nausea, vomiting, productive sputum, or increased work of breathing. Currently on 2 L of oxygen via nasal cannula. Satting well. We will switch antibiotics to oral Augmentin. Patient is resting comfortably in bed and has no complaints at this time. - Constitutional Vitals: Temp Pulse Resp BP Pulse Ox 97.9 F 90 15 149/96 99 05/14/17 06:41 05/14/17 06:41 05/14/17 06:41 05/14/17 06:41 05/14/17 06:41 General appearance: Present: A&O X 3, answers questions appropriately - Head Head exam: Present: atraumatic, normocephalic - Eye Eye exam: Present: PERRL, conjuntiva pink, sclera anicteric Pupils: Present: PERRL - Neck Neck exam general surgery: Present: supple, trachea midline. Absent: lymphadenopathy - Respiratory Respiratory exam: Present: decreased breath sounds. Absent: accessory muscle use, rales, rhonchi, wheezes - Cardiovascular Cardiovascular exam: Present: RRR, +S1, +S2. Absent: diastolic murmur, gallop, rubs, systolic murmur - GI/Abdominal GI/Abdominal exam: Present: normal bowel sounds, soft, no peritoneal signs. Absent: distended, tenderness - Extremities Exam Extremities exam: Present: warm, radial pulses palpable and symmetrical. Absent : calf tenderness, cyanotic, pedal edema - Neurological Exam Neurological exam: Present: CN II-XII intact, oriented X3, no focal deficits. Absent: pronater drift, facial droop, speech deficit - Skin Skin exam: Present: dry, intact Internal Medicine: Result - Labs CBC & Chem 7: 05/14/17 05:45 05/14/17 05:45 Labs: Short CBC 05/14/17 Range/Units 05:45 WBC 11.7 H (4.3-11.1) K/mcL Hgb 10.8 L (11.5-15.4) g/dL Hct 34.7 L (35.3-44.9) % Plt Count 234 (140-400) K/mcL Neutrophils # 10.7 H (1.6-8.9) K/mcL BMP 05/14/17 05:45 Sodium 141 Potassium 4.3 Chloride 113 H Carbon Dioxide 24 BUN 14 Creatinine 0.55 L Glucose 116 H Calcium 8.3 L - ABG Interpretation ABG results: PT/INR, D-dimer D-Dimer 728 ng/mLFEU (0-500) H 05/12/17 16:40 Consult Discharge Plan - Plan Referrals: Ron Ward MD [Primary Care Provider] - <Bam Schaefer H - Last Filed: 05/14/17 15:51> Date of Encounter: 05/14/17 - Constitutional Vitals: Temp Pulse Resp BP Pulse Ox 97.9 F 90 16 149/96 95 05/14/17 06:41 05/14/17 06:41 05/14/17 15:31 05/14/17 06:41 05/14/17 15:31 Internal Medicine: Result - Labs CBC & Chem 7: 05/14/17 05:45 05/14/17 05:45 Labs: Short CBC 05/14/17 Range/Units 05:45 WBC 11.7 H (4.3-11.1) K/mcL Hgb 10.8 L (11.5-15.4) g/dL Hct 34.7 L (35.3-44.9) % Plt Count 234 (140-400) K/mcL Neutrophils # 10.7 H (1.6-8.9) K/mcL BMP 05/14/17 05:45 Sodium 141 Potassium 4.3 Chloride 113 H Carbon Dioxide 24 BUN 14 Creatinine 0.55 L Glucose 116 H Calcium 8.3 L - ABG Interpretation ABG results: PT/INR, D-dimer D-Dimer 728 ng/mLFEU (0-500) H 05/12/17 16:40 - Attending Attestation Acute hypoxic respiratory failure secondary to acute COPD exacerbation from possible lymphangitic carcinomatosis, unclear whether the patient has persistent pneumonia as she has been improving only on azithromycin and now Augmentin Continue IV steroids, oncology recommendations appreciated Acute renal failure, improving possibly secondary to dehydration Hyperglycemia Hypertension, stable I examined this patient and my medical decision-making was reviewed with the Resident Physician. I agree with the documented findings, disposition and treatment plan as described except to the extent set forth below.
[2017-05-14] MEDS: Budesonide/Formoterol 160/4.5 MDI IH SCH ×2 (07:55→19:50)
[2017-05-14] MEDS: Nicotine 21 MG PATCH.TD24 TD SCH (08:25)
[2017-05-14] MEDS: Cholecalciferol (D-3) 1,000 UNIT TABLET PO SCH (08:25)
[2017-05-14] MEDS: Ascorbic Acid 500 MG TABLET PO SCH (08:25)
[2017-05-14] MEDS: GuaiFENesin/Dextromethorphan TABLET PO SCH ×2 (08:25→20:00)
[2017-05-14] MEDS: Nystatin SUSP 5 ML UD.LIQ PO SCH ×3 (08:26→20:01)
[2017-05-14] MEDS: *HR* LORazepam 0.5 MG TABLET PO PRN ×2 (08:26→20:01)
[2017-05-14] MEDS: 0.9 % Sodium Chloride 1,000 ML IVC SCH (08:35)
--- NOTE | 2017-05-14 15:44 | Oncology Inp Consult Note ---
<Scarlet Constantino Harpal - Last Filed: 05/15/17 08:59> Date of Encounter: 05/14/17 Time of Encounter: 15:44 Assessment and Plan (1) Small cell lung cancer Status: Chronic Assessment and plan: Unable to attend oncology follow ups this week to discuss recent imaging results and treatment option discussion. She has had multiple hospitalizations since the beginning of her treatment for PNA and COPD exacerbation which has complicated her course of treatment. CT CAP in February 2017 had shown mixed response with enlarged right hilar LN and significantly decr hepatic lesions. Dr. Beltrán recently decreased VP16 dosing, she completed C6 April 05. Most recent imaging detailed in HPI. During her prior hospitalization she had successful bronchoscopy with balloon dilation APC and debulking of this area. Pathology report for endobronchial lesion shows small cell lung carcinoma, IHC staining for Ki-67 pending. RLL BAL micro report shows negative for WBC, epithelial cell, bacteria or yeast. AFB culture with No acid fast bacilli observed. Presently she continues augmentin and nystain along with 40 mg IV solu-cortef. Respiratory symptoms improved at this time. She wishes to have further treatment option discussions with her treating oncologist Dr. Beltrán, she may be a candidate for immunotherapy, ultimate treatment options to be determined by Dr. Beltrán. She wishes to continue to pursue aggressive therapy. She has an appointment with rad onc 05/15 at 1 pm to discuss possible radiotherapy to right hilar mass and to discuss recent role for radiotherapy in recent brain MRI findings. I have arranged for a follow up with Dr. Beltrán this day as well at 2:20 pm. Please refer to Dr[address] Angel's attestation below for additional details - Data of Consult Patient: known to practice within the last 3 years Consult date: 05/14/17 Requesting Physician: Carlos Cox Primary Care Provider: Ron Ward MD - Consult Narrative Reason for consult: Small cell lung cancer, stage IV History of present illness: Ms. Keenna is a 61 year old female with medical history significant for COPD, home O2 dependance, small cell lung cancer with extensive stage liver metastatic disease a (and new demonstration of multiple new foci of increased FLAIR signal and increased diffusion signal with associated enhancement- concerning for small foci of metastatic disease on brain MRI), on palliative chemotherapy with carboplatin and etoposide. She has had multiple hospitalizations since the beginning of her treatment for PNA and COPD exacerbation which has complicated her course of treatment. She presented to ER on 05/12/17 with report of COPD exacerbation, acute SOB. During her prior hospitalization she had successful bronchoscopy with balloon dilation APC and debulking of this area. She reported relief in her symptoms. She was discharged home with Augmentin, nystatin and prednisone with f/u with pulmonology. She was not able to attend follow ups with radiation/medical oncology this week due to her symptoms and re-admission. Imaging Chest CT 05/12/2017 No significant interval change in right hilar mass with occlusion of bronchus intermedius and filling defects within lower lobe and middle lobe airways, compatible with known neoplasm. Persistent findings of manjeet and hepatic metastatic disease. Nodular infiltrate within the right middle lobe and right lower lobe again noted, which can reflect infection or lymphangitic carcinomatosis. Possible osseous metastatic disease. Nuclear medicine bone scan may be helpful for further assessment. Chest CTA 05/05/17 1. No findings of pulmonary embolism. 2. No significant change in the right perihilar mass likely due to confluent lymphadenopathy, resulting in persistent complete occlusion of the bronchus intermedius. The right middle and right lower lobe bronchi remain completely opacified likely rib by mucous secretions, although superimposed endobronchial tumor spread is not excluded. 3. Slightly increased volume loss and tree-in-bud opacities in the right middle and right lower lobes. The appearance is most likely due to infectious bronchiolitis, although lymphangitic carcinomatosis is not excluded. 4. Unchanged right upper paratracheal, right lower paratracheal, right retrocrural, and gastrohepatic metastatic lymphadenopathy. Unchanged hepatic metastatic disease. 5. Unchanged fractures involving thoracic and lumbar vertebrae and bilateral ribs, potentially pathologic due to unseen skeletal metastases versus osteoporosis. 6. Minimal central bronchial wall thickening potentially due to reactive airways disease or bronchitis. 7. Mild to moderate centrilobular and minimal paraseptal emphysema. Brain MRI 04/30/17 Multiple new foci of increased FLAIR signal and increased diffusion signal with associated enhancement. Findings are concerning for small foci of metastatic disease. Small foci of recent ischemia less likely Past Med Surg Social Fam HX - Past Medical History Medical history: cancer, COPD, hypertension Psychiatric history: anxiety, depression - Past Surgical History Surgical History: hysterectomy - Social History Smoking Status: Former smoker Smokeless Tobacco Status: No Alcohol use: none Drug use: none - Family History Sister Family Member Ethnicity: Non- Living Status: Still Living Hx Family Cardiac Disorders: Yes (HTN) Hx Family Cancer: Yes (Lymphoma) Mother Family Member Ethnicity: Non- Living Status: Hx Family Cardiac Disorders: Yes (Aneurysm, HTN) Hx Family Respiratory Disorders: Yes (COPD) Father Adopted: No Family Member Ethnicity: Non- Living Status: Hx Family Cardiac Disorders: Yes (CHF, CAD, PA) Hx Family Respiratory Disorders: Yes (mother copd) Hx Family Cancer: No Hx Family GI Disorders: No Hx Family Endocrine Disorder: No Hx Family Neuromuscular Disorders: No Hx Family Neurologic Disorders: No Hx Family HEENT Disorders: No Hx Family Autoimmune Disorders: No Medications and Allergies DULoxetine [Cymbalta] 30 mg PO HS 02/15/16 [History] Trazodone HCl 200 mg PO HS 02/15/16 [History] Albuterol Sulfate [Albuterol Inhaler] 2 puff IH Q6H PRN 10/14/16 [History] Budesonide/Formoterol 160/4.5 [Symbicort 160/4.5] 2 puff IH BIDR 10/14/16 [ History] Oxygen 2 l NS AD 10/14/16 [History] Tiotropium [Spiriva] 18 mcg IH DAILY 10/14/16 [History] Ascorbate Calcium [Vitamin C] 500 mg PO DAILY 12/14/16 [History] Polyethylene Glycol 3350 [MiraLAX] 17 gm PO DAILY PRN #30 powd.pack 12/22/16 [Rx ] Sennosides/Docusate Sodium [Senna-Docusate Sodium Tablet] 2 each PO BID PRN #60 tablet 12/22/16 [Rx] Calcium Carbonate/Vitamin D3 [Calcium 500 + Vit D Caplet] 2 each PO DAILY #60 tablet 12/26/16 [Rx] Cholecalciferol (D-3) [Vitamin D] 5,000 unit PO DAILY 02/02/17 [History] Melatonin [Melatin] 3 mg PO HS 02/02/17 [History] LORazepam [Ativan] 0.5 mg PO BID PRN 30 Days #60 tablet 03/21/17 [Rx] OxyCODONE Immed Rel [Roxicodone 10 MG] 10 mg PO TID PRN 30 Days #90 tablet 04/22 [Rx] Albuterol Neb [Proventil Neb] 2.5 mg IH Q6H PRN 7 Days #30 vial 05/04/17 [Rx] predniSONE [PredniSONE] 10 mg PO DAILY 48 Days #118 tablet 05/10/17 [Rx] Amoxicillin/Clavulanate [Augmentin] 875 mg PO BIDWM #12 tablet 05/15/17 [Rx] Ipratropium/Albuterol Neb [Duoneb] 3 ml IH Q4HR 30 Days vial.neb 05/15/17 [Rx] predniSONE [PredniSONE] See Taper PO BIDWM #105 tablet 05/15/17 [Rx] 3 Allergy/AdvReac Type Severity Reaction Status Date / Time No Known Allergies Allergy Verified 05/13/17 09:03 Constitutional: Present: fatigue, headache(s), weakness. Absent: chills, fever( s), frequent falls, weight loss Eyes: Absent: blurry vision Nose, mouth and throat: Absent: mouth lesions Cardiovascular: Absent: chest pain, irregular heart rhythm, palpitations Respiratory: Present: as per HPI, cough, dyspnea. Absent: hemoptysis Gastrointestinal: Absent: abdominal pain, change in bowel habits, nausea, vomiting Genitourinary: Absent: dysuria Musculoskeletal: Present: muscle weakness Integumentary: Absent: wounds Neurological: Absent: focal weakness, frequent falls Hematologic/Lymphatic: Present: as per HPI Oncology - Exam - Constitutional Vitals: Temp Pulse Resp BP Pulse Ox 97.9 F 90 16 149/96 95 05/14/17 06:41 05/14/17 06:41 05/14/17 15:31 05/14/17 06:41 05/14/17 15:31 General appearance: cooperative, no acute distress, thin, no febrile Exam: cachectic, frail and chronically ill appearing - Head Head exam: Present: atraumatic - ENT ENT exam: Present: mucous membranes moist - Respiratory Respiratory exam: Present: decreased breath sounds, wheezes. Absent: respiratory distress - Cardiovascular Cardiovascular exam: Present: RRR, +S1, +S2 - GI/Abdominal GI/Abdominal exam: Present: normal bowel sounds, soft. Absent: tenderness - Extremities Exam Extremities exam: Absent: calf tenderness - Neurological Exam Neurological exam: Present: alert, oriented X3, no focal deficits, strengths equal and symetr throughout - Psychiatric Psychiatric exam: Present: normal affect, normal mood - Skin Skin exam: Present: dry, intact, normal color, warm Oncology - Results Labs: Short CBC 05/14/17 Range/Units 05:45 WBC 11.7 H (4.3-11.1) K/mcL Hgb 10.8 L (11.5-15.4) g/dL Hct 34.7 L (35.3-44.9) % Plt Count 234 (140-400) K/mcL Neutrophils # 10.7 H (1.6-8.9) K/mcL BMP 05/14/17 05:45 Sodium 141 Potassium 4.3 Chloride 113 H Carbon Dioxide 24 BUN 14 Creatinine 0.55 L Glucose 116 H Calcium 8.3 L Consult Discharge Plan - Plan Instructions: Ipratropium (By breathing), Prednisone (By mouth), Amoxicillin/ Clavulanate Potassium (By mouth), Chronic Obstructive Pulmonary Disease (DC), Pneumonia (DC) Referrals: Ron Ward MD [Primary Care Provider] - (refferal sent to PCP for appointment ) Prescriptions: Ipratropium/Albuterol Neb [Duoneb] 3 ml IH Q4HR 30 Days vial.neb Amoxicillin/Clavulanate [Augmentin] 875 mg PO BIDWM #12 tablet predniSONE [PredniSONE] See Taper PO BIDWM #105 tablet <James Angel S - Last Filed: 05/15/17 17:54> Date of Encounter: 05/15/17 - Data of Consult Requesting Physician: Carlos Cox Primary Care Provider: Ron Ward MD - Consult Narrative History of present illness: Ms. Keenan is a 61 year old female Oncology - Exam - Constitutional Vitals: Temp Pulse Resp BP Pulse Ox 98.3 F 94 16 153/90 97 05/14/17 19:14 05/14/17 19:14 05/14/17 19:14 05/14/17 19:14 05/14/17 19:14 Oncology - Results Labs: Short CBC 05/14/17 Range/Units 05:45 WBC 11.7 H (4.3-11.1) K/mcL Hgb 10.8 L (11.5-15.4) g/dL Hct 34.7 L (35.3-44.9) % Plt Count 234 (140-400) K/mcL Neutrophils # 10.7 H (1.6-8.9) K/mcL BMP 05/14/17 05:45 Sodium 141 Potassium 4.3 Chloride 113 H Carbon Dioxide 24 BUN 14 Creatinine 0.55 L Glucose 116 H Calcium 8.3 L - Attending Attestation Extensive stage small cell lung cancer to multiple liver metastasis Stage IV She completed 6 cycles of carboplatin and etoposide from 11/16/2016 to 2017. I reviewed Dr. BELTRÁN's notes. Its hard to tell how many cycles really got Restaging CT chest without contrast 05/12/2017 showed 8 hilar mass lotion of bronchus intermedius size 4 x 3.7 cm. Bronchoscopy showed suspicious lesion in right bronchus intermedius 05/05/2017 and biopsy positive for small cell carcinoma MRI brain 04/30/2017 showed multiple new fosi of increased FLAIR signal concerning for small foci of metastasis Treatment recommendation May consider palliative radiation to right hilar mass. I am not sure how much breathing it may improve Also radiation consult for MRI brain findings Further systemic treatment options include immunotherapy with combination of ipilimumab and nivolumab for residual/recurrent small cell carcinoma Follow-up with as an outpatient Also discussed with Dr. Roberto about radiation
--- NOTE | 2017-05-14 19:35 | Electrocardiograph Report ---
[place] [id number] Test Date: 2017-05-12 Pat Name: Domi Keenan Department: 104 Room: 2NE22 Gender: F Chief Security Officer: [facility] : 1955 Requested By: Hunter Souza Order Number: [id number] Reading MD: Tj Singh MD Measurements Intervals [place] Rate: 101 P: 53 AK: 128 QRS: -30 QRSD: 70 T: 58 QT: 312 QTc: 370 Interpretive Statements SINUS TACHYCARDIA BORDERLINE LEFT AXIS DEVIATION BASELINE ARTIFACT Electronically Signed On 05-14-2017 19:33:51 EDT by Tj Singh MD
[2017-05-14] MEDS: traZODone 50 MG TABLET PO SCH (20:00)
[2017-05-14] MEDS: Melatonin 3 MG TABLET PO SCH (20:01)
[2017-05-15] MEDS: MethylPREDNISolone 40 MG/ML VIAL IVP SCH ×3 (01:16→12:23)
[2017-05-15] MEDS: Ipratropium/Albuterol Neb 3 ML IH SCH ×4 (03:34→15:31)
[2017-05-15 04:56] LABS: Basophils % 0.2 %; Hematocrit 35.9 % (35.3-44.9); Hemoglobin 11.2 g/dL (11.5-15.4); Immature Granulocytes % 0.9 % (0-4); Lymphocytes # 0.4 K/mcL (0.6-4.6); Lymphocytes % 3.2 %; Mean Corpuscular HGB Conc 31.2 g/dL (31.6-35.5); Mean Corpuscular Hemoglobin 28.9 pg (28.0-33.3); Mean Corpuscular Volume 92.8 fL (83.0-100.0); Mean Platelet Volume 9.9 fL (9.4-12.4); Monocytes # 0.4 K/mcL (0.0-1.3); Monocytes % 3.8 %; Platelet Count 231 K/mcL (140-400); Red Blood Count 3.87 M/mcL (3.82-4.97); Red Cell Distribution Width 15.7 % (11.5-14.5); Segmented Neutrophils % 91.9 %
[2017-05-15 05:10] LABS: BUN/Creatinine Ratio 26 (6-26); Blood Urea Nitrogen 15 mg/dL (8-23); Calcium 8.7 mg/dL (8.6-10.3); Carbon Dioxide 28 mEq/L (23-29); Chloride 109 mEq/L (98-107); Glucose 208 mg/dL (70-105); Osmolality,Calculated 299 (280-300); Potassium 4.2 mEq/L (3.5-5.1); Sodium 141 mEq/L (136-145); eGFR For African Americans > 60 (> 60); eGFR For Non-African Americans > 60 (> 60)
[2017-05-15] MEDS: *HR* Enoxaparin 40 MG/0.4 ML SYRINGE SQ SCH (06:52)
[2017-05-15] MEDS: Budesonide/Formoterol 160/4.5 MDI IH SCH (07:16)
--- NOTE | 2017-05-15 08:49 | Internal Med Progress Note ---
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 -Oncology has been consulted; recommends the addition of 2 cancer drugs and outpatient follow up. Qualifiers: Pneumonia type: due to other aerobic Gram-negative bacteria Laterality: right Lung location: middle lobe of lung Qualified Code(s): J15.6 - Pneumonia due to other Gram-negative bacteria (3) Lung cancer Current Visit: Yes Status: Chronic Assessment and plan: -Extensive stage SCLC, follows with Oncology, long-term prognosis limited -Oncology has been consulted; recommends the addition of 2 cancer drugs and outpatient follow up. Qualifiers: Laterality: right Lung location: lower lobe of lung Qualified Code(s): C34.31 - Malignant neoplasm of lower lobe, right bronchus or lung (4) DVT prophylaxis Current Visit: No Status: Acute Assessment and plan: -Lovenox 30 mg subcutaneous 0600 - Subjective Interval history: Patient was seen and examined at bedside this morning. Patient reports that she is feeling much better today. Denies having any significant respiratory distress. Denies fever, chills, nausea, vomiting, productive sputum, or increased work of breathing. Currently on 2 L of oxygen via nasal cannula. Satting well. We will switch antibiotics to oral Augmentin. Patient is resting comfortably in bed and has no complaints at this time. - Constitutional Vitals: Temp Pulse Resp BP Pulse Ox 98.0 F 87 16 147/98 94 05/15/17 07:09 05/15/17 07:09 05/15/17 07:15 05/15/17 07:09 05/15/17 07:15 General appearance: Present: A&O X 3, answers questions appropriately - Head Head exam: Present: atraumatic, normocephalic - Eye Eye exam: Present: PERRL, conjuntiva pink, sclera anicteric Pupils: Present: PERRL - Neck Neck exam general surgery: Present: supple, trachea midline. Absent: lymphadenopathy - Respiratory Respiratory exam: Present: decreased breath sounds, rales. Absent: accessory muscle use, rhonchi, wheezes - Cardiovascular Cardiovascular exam: Present: RRR, +S1, +S2. Absent: diastolic murmur, gallop, rubs, systolic murmur - Extremities Exam Extremities exam: Present: warm, radial pulses palpable and symmetrical. Absent : calf tenderness, cyanotic, pedal edema - Neurological Exam Neurological exam: Present: CN II-XII intact, oriented X3, no focal deficits. Absent: pronater drift, facial droop, speech deficit - Skin Skin exam: Present: dry, intact Internal Medicine: Result - Labs CBC & Chem 7: 05/15/17 04:37 05/15/17 04:37 Labs: Short CBC 05/15/17 Range/Units 04:37 WBC 10.8 (4.3-11.1) K/mcL Hgb 11.2 L (11.5-15.4) g/dL Hct 35.9 (35.3-44.9) % Plt Count 231 (140-400) K/mcL Neutrophils # 10.0 H (1.6-8.9) K/mcL BMP 05/15/17 04:37 Sodium 141 Potassium 4.2 Chloride 109 H Carbon Dioxide 28 BUN 15 Creatinine 0.58 L Glucose 208 H Calcium 8.7 - ABG Interpretation ABG results: PT/INR, D-dimer D-Dimer 728 ng/mLFEU (0-500) H 05/12/17 16:40 - VTE Documentation of Mechanical Device: Graduated compression elastic hosiery Consult Discharge Plan - Plan Instructions: Chronic Obstructive Pulmonary Disease (DC), Pneumonia (DC) Referrals: Ron Ward MD [Primary Care Provider] -
[2017-05-15] MEDS: Ascorbic Acid 500 MG TABLET PO SCH (09:06)
[2017-05-15] MEDS: GuaiFENesin/Dextromethorphan TABLET PO SCH (09:06)
[2017-05-15] MEDS: Nicotine 21 MG PATCH.TD24 TD SCH (09:06)
[2017-05-15] MEDS: *HR* OxyCODONE Immed Rel 5 MG TABLET PO PRN (09:06)
[2017-05-15] MEDS: Cholecalciferol (D-3) 1,000 UNIT TABLET PO SCH (09:06)
[2017-05-15] MEDS: Nystatin SUSP 5 ML UD.LIQ PO SCH (09:10)
[2017-05-15] MEDS: *HR* LORazepam 0.5 MG TABLET PO PRN (10:14)
[2017-05-15 11:43] VITALS: BP 156/97
--- NOTE | 2017-05-15 13:24 | Discharge Summary ---
<Joe Greene - Last Filed: 05/15/17 13:39> Orders not resulted at time of discharge: Pending orders 05/16/17 04:00 Basic Metabolic Panel AM 0400 Complete Blood Count [HEME] AM 0400 Date of Encounter: 05/15/17 Time of Encounter: 13:20 - Discharge Diagnosis (1) Acute exacerbation of chronic obstructive airways disease Priority: Primary Status: Acute (2) Pneumonia Priority: Secondary Status: Resolved Qualifiers: Pneumonia type: due to other aerobic Gram-negative bacteria Laterality: right Lung location: middle lobe of lung Qualified Code(s): J15.6 - Pneumonia due to other Gram-negative bacteria (3) Lung cancer Priority: Secondary Status: Chronic Qualifiers: Laterality: right Lung location: lower lobe of lung Qualified Code(s): C34.31 - Malignant neoplasm of lower lobe, right bronchus or lung (4) DVT prophylaxis Priority: Secondary Status: Acute Hospital course: Ms. Keenan is a 61 year old female who presented to the hospital with chief complaint of shortness of breath. She had recently been diagnosed with pneumonia and COPD exacerbation, and was discharged from the hospital. She has a known history of small cell lung cancer that was diagnosed in October 2016. Upon admission, patient reported having shortness of breath that was worse with exertion. She admitted that she had not been taking her home nebulizer, 2 L of home oxygen, and Augmentin as prescribed as continuation for her treatment for pneumonia. She had mild discomfort with deep inspiration. She was also tachycardic on presentation. She was admitted for likely COPD exacerbation. Patient was started on IV steroids, DuoNeb nebs, azithromycin, and ceftriaxone. CT scan of the chest was obtained and demonstrated the following: No significant changes in the right lower lobe mass of the lung. Nodular infiltrate within the right middle lobe and the right lower lobe, possibly reflective of infection or lymphangitic carcinomatosis. It also demonstrated possible osseous metastatic disease. Oncology was consulted for further recommendations. Per the recommendations of oncology, may consider palliative radiation to the right hilar mass. Further systemic treatment options including immunotherapy with combination of ipilimumab and nivolumab for residual/recurrent small cell carcinoma. Patient will follow-up with Dr. Beltrán as an outpatient. Patient will be discharged on 6 more days of Augmentin, prednisone taper, and DuoNeb's. Patient was seen and examined at bedside on date of discharge. She reports feeling well. Denies having any respiratory distress. No cough, fever, chills, shortness of breath, or chest pain. - Time Spent with Patient Total time spent providing and/or coordinating discharge services: Greater than 30 minutes (42 minutes) - Discharge Medications Prescriptions: Ipratropium/Albuterol Neb [Duoneb] 3 ml IH Q4HR 30 Days vial.neb Amoxicillin/Clavulanate [Augmentin] 875 mg PO BIDWM #12 tablet predniSONE [PredniSONE] See Taper PO BIDWM #105 tablet Home Medications: DULoxetine [Cymbalta] 30 mg PO HS 02/15/16 [History] Trazodone HCl 200 mg PO HS 02/15/16 [History] Albuterol Sulfate [Albuterol Inhaler] 2 puff IH Q6H PRN 10/14/16 [History] Budesonide/Formoterol 160/4.5 [Symbicort 160/4.5] 2 puff IH BIDR 10/14/16 [ History] Oxygen 2 l NS AD 10/14/16 [History] Tiotropium [Spiriva] 18 mcg IH DAILY 10/14/16 [History] Ascorbate Calcium [Vitamin C] 500 mg PO DAILY 12/14/16 [History] Polyethylene Glycol 3350 [MiraLAX] 17 gm PO DAILY PRN #30 powd.pack 12/22/16 [Rx ] Sennosides/Docusate Sodium [Senna-Docusate Sodium Tablet] 2 each PO BID PRN #60 tablet 12/22/16 [Rx] Calcium Carbonate/Vitamin D3 [Calcium 500 + Vit D Caplet] 2 each PO DAILY #60 tablet 12/26/16 [Rx] Cholecalciferol (D-3) [Vitamin D] 5,000 unit PO DAILY 02/02/17 [History] Melatonin [Melatin] 3 mg PO HS 02/02/17 [History] LORazepam [Ativan] 0.5 mg PO BID PRN 30 Days #60 tablet 03/21/17 [Rx] OxyCODONE Immed Rel [Roxicodone 10 MG] 10 mg PO TID PRN 30 Days #90 tablet 04/22 [Rx] Albuterol Neb [Proventil Neb] 2.5 mg IH Q6H PRN 7 Days #30 vial 05/04/17 [Rx] predniSONE [PredniSONE] 10 mg PO DAILY 48 Days #118 tablet 05/10/17 [Rx] Amoxicillin/Clavulanate [Augmentin] 875 mg PO BIDWM #12 tablet 05/15/17 [Rx] Ipratropium/Albuterol Neb [Duoneb] 3 ml IH Q4HR 30 Days vial.neb 05/15/17 [Rx] predniSONE [PredniSONE] See Taper PO BIDWM #105 tablet 05/15/17 [Rx] Allergies/Adverse Reactions: 3 Allergy/AdvReac Type Severity Reaction Status Date / Time No Known Allergies Allergy Verified 05/13/17 09:03 Date of admission: 05/12/17 22:20 Primary care physician: Ron Ward MD Consults: 05/14/17 10:32 Consult to Oncology [CONS] Routine Consulting Provider: [facility] Reason for Consult: possibly worsening lung cancer; has missed multiple oncology appointments due to hospitalizations Call Completed: No Discharging clinician: Joe Greene Anticipated date of discharge: 05/15/17 - Constitutional Vitals: Temp Pulse Resp BP Pulse Ox 98.7 F 98 15 156/97 95 05/15/17 11:40 05/15/17 11:40 05/15/17 11:40 05/15/17 11:40 05/15/17 11:40 General appearance: Present: A&O X 3, answers questions appropriately - Head Head exam: Present: atraumatic, normocephalic - Eye Eye exam: Present: PERRL, conjuntiva pink, sclera anicteric Pupils: Present: PERRL - Neck Neck exam general surgery: Present: supple, trachea midline. Absent: lymphadenopathy - Respiratory Respiratory exam: Present: decreased breath sounds, prolonged expiratory phase, rales. Absent: accessory muscle use, rhonchi, wheezes - Cardiovascular Cardiovascular exam: Present: RRR, +S1, +S2. Absent: diastolic murmur, gallop, rubs, systolic murmur - GI/Abdominal GI/Abdominal exam: Absent: no peritoneal signs - Extremities Exam Extremities exam: Present: warm, radial pulses palpable and symmetrical. Absent : calf tenderness, cyanotic, pedal edema - Neurological Exam Neurological exam: Present: CN II-XII intact, oriented X3, no focal deficits. Absent: pronater drift, facial droop, speech deficit - Skin Skin exam: Present: dry, intact - Patient Status Disposition: Home, Self-Care Condition: Fair Overall status at discharge: patient is progressing back to baseline - Discharge Instructions Instructions: Ipratropium (By breathing), Prednisone (By mouth), Amoxicillin/ Clavulanate Potassium (By mouth), Chronic Obstructive Pulmonary Disease (DC), Pneumonia (DC) Follow Up With: Ron Ward MD [Primary Care Provider] - Forms: ED Satisfaction Letter - Diet and Activity Activity: increase activity as tolerated Diet: advance to your usual diet - VTE Documentation of Mechanical Device: Graduated compression elastic hosiery <Bam Schaefer H - Last Filed: 05/15/17 14:32> Orders not resulted at time of discharge: Pending orders 05/16/17 04:00 Basic Metabolic Panel AM 0400 Complete Blood Count [HEME] AM 0400 Date of Encounter: 05/15/17 Hospital course: Ms. Keenan is a 61 year old female - Time Spent with Patient Total time spent providing and/or coordinating discharge services: Date of admission: 05/12/17 22:20 Primary care physician: Ron Ward MD Consults: 05/14/17 10:32 Consult to Oncology [CONS] Routine Consulting Provider: [facility] Reason for Consult: possibly worsening lung cancer; has missed multiple oncology appointments due to hospitalizations Call Completed: No - Constitutional Vitals: Temp Pulse Resp BP Pulse Ox 98.7 F 98 15 156/97 95 05/15/17 11:40 05/15/17 11:40 05/15/17 11:40 05/15/17 11:40 05/15/17 11:40 - Attending Attestation Acute hypoxic respiratory failure secondary to acute COPD exacerbation from possible lymphangitic carcinomatosis, unclear whether the patient has persistent pneumonia as she has been improving only on azithromycin and Augmentin Continue steroids 60 mg for 5 days, 50 mg for 5 days, 40 mg for 5 days, 30 mg for 5 days, 20 mg for 5 days, 10 mg for 5 days Acute renal failure, improving possibly secondary to dehydration Hyperglycemia Hypertension, stable Follow up tomorrow with radiation oncology Oxygen therapy time spent 40 min I examined this patient and my medical decision-making was reviewed with the Resident Physician. I agree with the documented findings, disposition and treatment plan as described except to the extent set forth below.
--- NOTE | 2017-05-15 16:04 | Physician Discharge Referral ---
Home Health/Hosp Referral Info Transfer to: Home Health Provider in Charge Post Discharge: PCP - Diagnosis (1) Acute exacerbation of chronic obstructive airways disease Priority: Primary Status: Acute (2) Pneumonia Priority: Primary Status: Acute (3) Hypertension Priority: Secondary Status: Chronic (4) Small cell 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 Priority: Primary Status: Chronic (5) Acute and chronic respiratory failure ([id number]) Priority: Primary Status: Resolved - Respiratory Orders Oxygen / L per min (3) Smoking Cessation: Smoking cessation has been advised. For more information, call the [place] Tobacco Quit Line at 7-672-IATA-NOW. - Diet/Nutrition Diet/Nutrition Orders: Regular - Services Needed Following services are medically necessary services: Nursing, Home Health Aide, Physical Therapy, Occupational Therapy - Transfer Medications Prescriptions: Ipratropium/Albuterol Neb [Duoneb] 3 ml IH Q4HR 30 Days vial.neb Amoxicillin/Clavulanate [Augmentin] 875 mg PO BIDWM #12 tablet predniSONE [PredniSONE] See Taper PO BIDWM #105 tablet Home Medications: DULoxetine [Cymbalta] 30 mg PO HS 02/15/16 [History] Trazodone HCl 200 mg PO HS 02/15/16 [History] Albuterol Sulfate [Albuterol Inhaler] 2 puff IH Q6H PRN 10/14/16 [History] Budesonide/Formoterol 160/4.5 [Symbicort 160/4.5] 2 puff IH BIDR 10/14/16 [ History] Oxygen 2 l NS AD 10/14/16 [History] Tiotropium [Spiriva] 18 mcg IH DAILY 10/14/16 [History] Ascorbate Calcium [Vitamin C] 500 mg PO DAILY 12/14/16 [History] Polyethylene Glycol 3350 [MiraLAX] 17 gm PO DAILY PRN #30 powd.pack 12/22/16 [Rx ] Sennosides/Docusate Sodium [Senna-Docusate Sodium Tablet] 2 each PO BID PRN #60 tablet 12/22/16 [Rx] Calcium Carbonate/Vitamin D3 [Calcium 500 + Vit D Caplet] 2 each PO DAILY #60 tablet 12/26/16 [Rx] Cholecalciferol (D-3) [Vitamin D] 5,000 unit PO DAILY 02/02/17 [History] Melatonin [Melatin] 3 mg PO HS 02/02/17 [History] LORazepam [Ativan] 0.5 mg PO BID PRN 30 Days #60 tablet 03/21/17 [Rx] OxyCODONE Immed Rel [Roxicodone 10 MG] 10 mg PO TID PRN 30 Days #90 tablet 04/22 [Rx] Albuterol Neb [Proventil Neb] 2.5 mg IH Q6H PRN 7 Days #30 vial 05/04/17 [Rx] predniSONE [PredniSONE] 10 mg PO DAILY 48 Days #118 tablet 05/10/17 [Rx] Amoxicillin/Clavulanate [Augmentin] 875 mg PO BIDWM #12 tablet 05/15/17 [Rx] Ipratropium/Albuterol Neb [Duoneb] 3 ml IH Q4HR 30 Days vial.neb 05/15/17 [Rx] predniSONE [PredniSONE] See Taper PO BIDWM #105 tablet 05/15/17 [Rx] Allergies/Adverse Reactions: 3 Allergy/AdvReac Type Severity Reaction Status Date / Time No Known Allergies Allergy Verified 05/13/17 09:03 Certification: Further, I certify that my clinical findings support that this patient is homebound (i.e. absences from home require considerable and taxing effort and are for medical reasons or restorationism services or infrequently or short duration when for other reasons) because: Homebound Reason: Patient requires assistance of a person or device to safely leave home Attestation: My signature below is to certify that this patient is under my care and that I, or nurse practitioner, or a physician's administrative assistant receptionist working with me, has a face-to -face encounter with this patient.
== END 2017-05-15 16:20 | disposition home or self-care (01) | DRG 190 ==
LOC: 2NENU 15:53 → EMEROO 15:53 → 2NENU 22:21
PROVIDERS: ADMIT Internal Medicine Hematology & Oncology; ATTEND Internal Medicine

== ENCOUNTER 2017-05-18 17:33 | Observation (INO) ==
[2017-05-18] MEDS ORDERED: *HR* FentaNYL (PF) 100 MCG/2 ML VIAL IVP ONE (18:23)
[2017-05-18] MEDS ORDERED: Ipratropium/Albuterol Neb 3 ML IH ONE (18:23)
[2017-05-18] MEDS ORDERED: methylPREDNISolone 125 MG/2 ML VIAL IVP ONE (18:24)
--- NOTE | 2017-05-18 19:10 | Emergency Department Note ---
Disposition Clinical Impression: Shortness of breath Disposition: Still a Patient Condition: Good Referrals: Ron Ward MD [Primary Care Provider] - Forms: ED Satisfaction Letter Time of Disposition: 19:17 SOB HPI - General Chief Complaint: ED Shortness of Breath/Dyspnea Stated Complaint: sob Time Seen by Provider: 05/18/17 18:02 Source: patient, family Limitations: no limitations - History of Present Illness Domi Keenan is a 61 year old female with history of small cell lung cancer s/p chemotherapy, recent COPD exacerbation, and recent pneumonia who presents with worsening SOB at rest. The SOB became acutely worse at 2-3 pm. She took a breathing treatment at home without resolution. Patient was using home O2 at her regular rate of 2 LPM. She complains of cough, but denies fever, chills, nausea, vomiting, chest pain, and diaphoresis. She was discharged from her last hospital stay on Saturday, and has been on steroids and antibiotics since that time. Her oncologist is Dr. Beltrán at the [facility], and she was to see Dr. Roberto for radiation treatments starting next week. - Related Data Home Medications Medication Instructions Recorded Confirmed DULoxetine [Cymbalta] 30 mg PO HS 02/15/16 05/16/17 Trazodone HCl 200 mg PO HS 02/15/16 05/16/17 Albuterol Sulfate [Albuterol 2 puff IH Q6H PRN 10/14/16 05/16/17 Inhaler] Budesonide/Formoterol 160/4.5 2 puff IH BIDR 10/14/16 05/16/17 [Symbicort 160/4.5] Oxygen 2 l NS AD 10/14/16 05/16/17 Tiotropium [Spiriva] 18 mcg IH DAILY 10/14/16 05/16/17 Ascorbate Calcium [Vitamin C] 500 mg PO DAILY 12/14/16 05/16/17 Cholecalciferol (D-3) [Vitamin D] 5,000 unit PO DAILY 02/02/17 05/16/17 Melatonin [Melatin] 3 mg PO HS 02/02/17 05/16/17 Previous Rx's Medication Instructions Recorded Polyethylene Glycol 3350 [MiraLAX] 17 gm PO DAILY PRN #30 powd.pack 12/22/16 Sennosides/Docusate Sodium 2 each PO BID PRN #60 tablet 12/22/16 [Senna-Docusate Sodium Tablet] Calcium Carbonate/Vitamin D3 2 each PO DAILY #60 tablet 12/26/16 [Calcium 500 + Vit D Caplet] LORazepam [Ativan] 0.5 mg PO BID PRN 30 Days #60 03/21/17 tablet OxyCODONE Immed Rel [Roxicodone 10 10 mg PO TID PRN 30 Days #90 tablet 04/22/17 MG] Albuterol Neb [Proventil Neb] 2.5 mg IH Q6H PRN 7 Days #30 vial 05/04/17 Ipratropium/Albuterol Neb [Duoneb] 3 ml IH Q4HR 30 Days vial.neb 05/15/17 predniSONE [PredniSONE] See Taper PO BIDWM #105 tablet 05/15/17 Allergies Allergy/AdvReac Type Severity Reaction Status Date / Time No Known Allergies Allergy Verified 05/16/17 13:20 Constitutional: Denies: fever, chills, weakness Cardiovascular: Denies: chest pain, palpitations Respiratory: Reports: cough, dyspnea, wheezes Gastrointestinal: Denies: abdominal pain, nausea, vomiting Past Medical History - Past Medical History Medical history: Reports: cancer, COPD, hypertension Surgical history: Reports: hysterectomy Psychiatric history: Reports: anxiety, depression PEDIATRIC ORTHODONTIST history: Reports: no PEDIATRIC ORTHODONTIST history - Social History Smoking Status: Former smoker Smokeless Tobacco Status: No Alcohol use: Reports: none Drug use: Reports: none Physical Exam - General Limitations: no limitations General appearance: alert - Head Head exam: atraumatic, normocephalic - Respiratory Respiratory exam: Present: wheezes, prolonged expiratory phase, other ( tachypneic). Absent: respiratory distress, accessory muscle use - Cardiovascular Cardiovascular exam: Present: regular rate, normal rhythm, normal heart sounds, +S1, +S2 - Abdominal Exam Abdominal exam: Present: soft, Non-Tender - Neurological Exam Neurological exam: Present: alert, oriented X3 - Psychiatric Psychiatric exam: Present: normal affect, normal mood - Skin Skin exam: Present: warm, dry Course Course Narrative: Patient with recent admission for COPD exacerbation and pneumonia presents with worsening shortness of breath for 3-4 hours with increased home oxygen use. Workup was initiated with CBC, BMP, EKG, troponin, chest x-ray, lactic acid, and blood culture. Patient was administered 25 g fentanyl due to pain related to stress fractures in her back. Her oxygenation was stable on a flow of 3 L per minute. 125 mg of Solu-Medrol is administered. A breathing treatment was also administered. Patient reported mild subjective improvement in symptoms. Anticipate admission for COPDE. Case was discussed with the oncoming team. Vital Signs Temperature 98.3 F 05/18/17 17:37 Pulse Rate 111 05/18/17 17:37 Respiratory Rate 22 05/18/17 17:37 Blood Pressure 136/71 05/18/17 17:37 O2 Sat by Pulse Oximetry 96 05/18/17 17:37 Temperature 98.3 F 05/18/17 17:37 Pulse Rate 119 05/18/17 19:32 Respiratory Rate 20 05/18/17 19:32 Blood Pressure 144/94 05/18/17 19:32 O2 Sat by Pulse Oximetry 92 05/18/17 19:33 Oxygen Delivery Oxygen Delivery Nasal Cannula Shortness of Breath/Dyspnea - Lab Data Result diagrams: 05/18/17 18:47 05/18/17 18:47 Lab Results 05/18/17 05/18/17 05/18/17 Range/Units 18:47 18:47 18:47 WBC 11.3 H (4.3-11.1) K/mcL RBC 4.12 (3.82-4.97) M/mcL Hgb 12.3 (11.5-15.4) g/dL Hct 38.9 (35.3-44.9) % MCV 94.4 (83.0-100.0) fL MCH 29.9 (28.0-33.3) pg MCHC 31.6 (31.6-35.5) g/dL RDW 15.4 H (11.5-14.5) % Plt Count 234 (140-400) K/mcL MPV 9.7 (9.4-12.4) fL Immature Gran % 0.6 (0-4) % Seg Neutrophils % 89.1 % Lymphocytes % 4.9 % Monocytes % 5.2 % Eosinophils % 0.0 % Basophils % 0.2 % Neutrophils # 10.1 H (1.6-8.9) K/mcL Lymphocytes # 0.6 (0.6-4.6) K/mcL Monocytes # 0.6 (0.0-1.3) K/mcL Eosinophils # 0.0 (0.0-0.6) K/mcL Basophils # 0.0 (0.0-0.2) K/mcL Sodium 140 (136-145) mEq/L Potassium 3.5 (3.5-5.1) mEq/L Chloride 105 (98-107) mEq/L Carbon Dioxide 29 (23-29) mEq/L BUN 16 (8-23) mg/dL Creatinine 0.87 (0.60-1.20) mg/dL Est GFR ( Amer) > 60 (> 60) Est GFR (Non-Af Amer) > 60 (> 60) BUN/Creatinine Ratio 18 (6-26) Glucose 156 H (70-105) mg/dL Calculated Osmolality 294 (280-300) Lactic Acid 1.4 (0.5-2.2) mmol/L Calcium 8.7 (8.6-10.3) mg/dL Troponin I < 0.03 (< 0.04) ng/mL Attestation Statement - Attestation Attestation: I, Jerod Barfield DO, examined this patient [id number] and my medical decision-making was reviewed with Tai Long PGY-1, Resident Physician. I agree with the documented findings, disposition and treatment plan as described except to the extent set forth below. Please see my progress notes for details.
[2017-05-18 19:12] LABS: Basophils % 0.2 %; Hematocrit 38.9 % (35.3-44.9); Hemoglobin 12.3 g/dL (11.5-15.4); Immature Granulocytes % 0.6 % (0-4); Lymphocytes # 0.6 K/mcL (0.6-4.6); Lymphocytes % 4.9 %; Mean Corpuscular HGB Conc 31.6 g/dL (31.6-35.5); Mean Corpuscular Hemoglobin 29.9 pg (28.0-33.3); Mean Corpuscular Volume 94.4 fL (83.0-100.0); Mean Platelet Volume 9.7 fL (9.4-12.4); Monocytes # 0.6 K/mcL (0.0-1.3); Monocytes % 5.2 %; Neutrophils # 10.1 K/mcL (1.6-8.9); Platelet Count 234 K/mcL (140-400); Red Blood Count 4.12 M/mcL (3.82-4.97); Red Cell Distribution Width 15.4 % (11.5-14.5); Segmented Neutrophils % 89.1 %
[2017-05-18 19:20] LABS: BUN/Creatinine Ratio 18 (6-26); Blood Urea Nitrogen 16 mg/dL (8-23); Calcium 8.7 mg/dL (8.6-10.3); Carbon Dioxide 29 mEq/L (23-29); Chloride 105 mEq/L (98-107); Glucose 156 mg/dL (70-105); Osmolality,Calculated 294 (280-300); Potassium 3.5 mEq/L (3.5-5.1); Sodium 140 mEq/L (136-145); eGFR For African Americans > 60 (> 60); eGFR For Non-African Americans > 60 (> 60)
[2017-05-18 19:21] LABS: Troponin I < 0.03 ng/mL (< 0.04)
--- NOTE | 2017-05-18 19:42 | Emergency Department Note ---
Disposition Clinical Impression: Shortness of breath Disposition: Still a Patient Condition: Good Referrals: Ron Ward MD [Primary Care Provider] - Forms: ED Satisfaction Letter Time of Disposition: 19:42 General Adult HPI - General Chief complaint: ED Shortness of Breath/Dyspnea Stated complaint: sob Time Seen by Provider: 05/18/17 18:02 Source: patient, family Limitations: no limitations - History of Present Illness Pain Scale: 6 - Related Data Home Medications Medication Instructions Recorded Confirmed DULoxetine [Cymbalta] 30 mg PO HS 02/15/16 05/16/17 Trazodone HCl 200 mg PO HS 02/15/16 05/16/17 Albuterol Sulfate [Albuterol 2 puff IH Q6H PRN 10/14/16 05/16/17 Inhaler] Budesonide/Formoterol 160/4.5 2 puff IH BIDR 10/14/16 05/16/17 [Symbicort 160/4.5] Oxygen 2 l NS AD 10/14/16 05/16/17 Tiotropium [Spiriva] 18 mcg IH DAILY 10/14/16 05/16/17 Ascorbate Calcium [Vitamin C] 500 mg PO DAILY 12/14/16 05/16/17 Cholecalciferol (D-3) [Vitamin D] 5,000 unit PO DAILY 02/02/17 05/16/17 Melatonin [Melatin] 3 mg PO HS 02/02/17 05/16/17 Previous Rx's Medication Instructions Recorded Polyethylene Glycol 3350 [MiraLAX] 17 gm PO DAILY PRN #30 powd.pack 12/22/16 Sennosides/Docusate Sodium 2 each PO BID PRN #60 tablet 12/22/16 [Senna-Docusate Sodium Tablet] Calcium Carbonate/Vitamin D3 2 each PO DAILY #60 tablet 12/26/16 [Calcium 500 + Vit D Caplet] LORazepam [Ativan] 0.5 mg PO BID PRN 30 Days #60 03/21/17 tablet OxyCODONE Immed Rel [Roxicodone 10 10 mg PO TID PRN 30 Days #90 tablet 04/22/17 MG] Albuterol Neb [Proventil Neb] 2.5 mg IH Q6H PRN 7 Days #30 vial 05/04/17 Ipratropium/Albuterol Neb [Duoneb] 3 ml IH Q4HR 30 Days vial.neb 05/15/17 predniSONE [PredniSONE] See Taper PO BIDWM #105 tablet 05/15/17 Allergies Allergy/AdvReac Type Severity Reaction Status Date / Time No Known Allergies Allergy Verified 05/16/17 13:20 Constitutional: Denies: fever, chills, weakness Cardiovascular: Denies: chest pain, palpitations Respiratory: Reports: cough, dyspnea, wheezes Gastrointestinal: Denies: abdominal pain, nausea, vomiting Past Medical History - Past Medical History Medical history: Reports: cancer, COPD, hypertension Surgical history: Reports: hysterectomy Psychiatric history: Reports: anxiety, depression REGISTERED PHARMACY TECHNICIAN history: Reports: no REGISTERED PHARMACY TECHNICIAN history - Social History Smoking Status: Former smoker Smokeless Tobacco Status: No Alcohol use: Reports: none Drug use: Reports: none Physical Exam - General Limitations: no limitations General appearance: alert Course Vital Signs Temperature 98.3 F 05/18/17 17:37 Pulse Rate 111 05/18/17 17:37 Respiratory Rate 22 05/18/17 17:37 Blood Pressure 136/71 05/18/17 17:37 O2 Sat by Pulse Oximetry 96 05/18/17 17:37 Temperature 98.3 F 05/18/17 17:37 Pulse Rate 119 05/18/17 19:32 Respiratory Rate 20 05/18/17 19:32 Blood Pressure 144/94 05/18/17 19:32 O2 Sat by Pulse Oximetry 92 05/18/17 19:33 Oxygen Delivery Oxygen Delivery Nasal Cannula Medical Decision Making - Lab Data Result diagrams: 05/18/17 18:47 05/18/17 18:47 Lab Results 05/18/17 05/18/17 05/18/17 Range/Units 18:47 18:47 18:47 WBC 11.3 H (4.3-11.1) K/mcL RBC 4.12 (3.82-4.97) M/mcL Hgb 12.3 (11.5-15.4) g/dL Hct 38.9 (35.3-44.9) % MCV 94.4 (83.0-100.0) fL MCH 29.9 (28.0-33.3) pg MCHC 31.6 (31.6-35.5) g/dL RDW 15.4 H (11.5-14.5) % Plt Count 234 (140-400) K/mcL MPV 9.7 (9.4-12.4) fL Immature Gran % 0.6 (0-4) % Seg Neutrophils % 89.1 % Lymphocytes % 4.9 % Monocytes % 5.2 % Eosinophils % 0.0 % Basophils % 0.2 % Neutrophils # 10.1 H (1.6-8.9) K/mcL Lymphocytes # 0.6 (0.6-4.6) K/mcL Monocytes # 0.6 (0.0-1.3) K/mcL Eosinophils # 0.0 (0.0-0.6) K/mcL Basophils # 0.0 (0.0-0.2) K/mcL Sodium 140 (136-145) mEq/L Potassium 3.5 (3.5-5.1) mEq/L Chloride 105 (98-107) mEq/L Carbon Dioxide 29 (23-29) mEq/L BUN 16 (8-23) mg/dL Creatinine 0.87 (0.60-1.20) mg/dL Est GFR ( Amer) > 60 (> 60) Est GFR (Non-Af Amer) > 60 (> 60) BUN/Creatinine Ratio 18 (6-26) Glucose 156 H (70-105) mg/dL Calculated Osmolality 294 (280-300) Lactic Acid 1.4 (0.5-2.2) mmol/L Calcium 8.7 (8.6-10.3) mg/dL Troponin I < 0.03 (< 0.04) ng/mL Attestation Statement - Attestation Attestation: I, Jerod Barfield DO, examined this patient [id number] and my medical decision-making was reviewed with Tai Long PGY-1, Resident Physician. I agree with the documented findings, disposition and treatment plan as described except to the extent set forth below. Please see my progress notes for details. 61-year-old female with known lung cancer as well as COPD presents emergency room with increased work of breathing shortness of breath and chest wall discomfort. She is scheduled for radiation therapy starting the chest wall here within the next week. Patient denies any new trauma or injury. Denies any recent fevers or chills cough, congestion. She feels that this is exacerbation of her COPD. Patient's vital signs on presentation are stable except for tachycardia. Some of this is secondary to the increased work of breathing. Patient will have breathing treatments steroids provided at this time. Chest x-ray EKG labs including CBC chemistry troponin and BMP will also be resulted. Patient is otherwise stable. There is concern for cardiac versus pulmonary related issues secondary to her medical history as well as a presentation. We will continue to monitor as a treatment course and management are established and resulted. Patient will require further management inpatient setting once full workup and evaluation are completed. Patient will be signed out to the nighttime physicians Dr. Huang. Physical exam do show diminished breath sounds bilaterally worse on the right in comparison to left. Left-sided does have significant wheezing. She is tachycardic. Abdomen is soft. Patient is frail and thin. Patient will have stabilization treatment course completed during this hospital evaluation. See detailed documentation of the physical exam, medical intervention, medical decision-making, disposition and signout in the resident physician's note. No critical care provider this patient's treatment course at this time
--- NOTE | 2017-05-18 20:04 | Emergency Department Note ---
Disposition Clinical Impression: COPD exacerbation Disposition: Admitted As Inpatient Condition: Good Time of Disposition: 21:45 General Adult HPI - General Chief complaint: ED Shortness of Breath/Dyspnea Stated complaint: sob Time Seen by Provider: 05/18/17 18:02 Source: patient, family Limitations: no limitations Nursing Notes Reviewed: Yes Vital Signs Reviewed: Yes - History of Present Illness HPI Narrative: 61-year-old female presenting with shortness of breath. Signed out to us by the day team. Patient has known right-sided lung cancer and COPD. Patient stable on my evaluation. Please refer to previous history of present illness completed. Pain Scale: 6 - Related Data Home Medications Medication Instructions Recorded Confirmed DULoxetine [Cymbalta] 30 mg PO HS 02/15/16 05/16/17 Trazodone HCl 200 mg PO HS 02/15/16 05/16/17 Albuterol Sulfate [Albuterol 2 puff IH Q6H PRN 10/14/16 05/16/17 Inhaler] Budesonide/Formoterol 160/4.5 2 puff IH BIDR 10/14/16 05/16/17 [Symbicort 160/4.5] Oxygen 2 l NS AD 10/14/16 05/16/17 Tiotropium [Spiriva] 18 mcg IH DAILY 10/14/16 05/16/17 Ascorbate Calcium [Vitamin C] 500 mg PO DAILY 12/14/16 05/16/17 Cholecalciferol (D-3) [Vitamin D] 5,000 unit PO DAILY 02/02/17 05/16/17 Melatonin [Melatin] 3 mg PO HS 02/02/17 05/16/17 Previous Rx's Medication Instructions Recorded Polyethylene Glycol 3350 [MiraLAX] 17 gm PO DAILY PRN #30 powd.pack 12/22/16 Sennosides/Docusate Sodium 2 each PO BID PRN #60 tablet 12/22/16 [Senna-Docusate Sodium Tablet] Calcium Carbonate/Vitamin D3 2 each PO DAILY #60 tablet 12/26/16 [Calcium 500 + Vit D Caplet] LORazepam [Ativan] 0.5 mg PO BID PRN 30 Days #60 03/21/17 tablet OxyCODONE Immed Rel [Roxicodone 10 10 mg PO TID PRN 30 Days #90 tablet 03/05/18 MG] Albuterol Neb [Proventil Neb] 2.5 mg IH Q6H PRN 7 Days #30 vial 05/04/17 Ipratropium/Albuterol Neb [Duoneb] 3 ml IH Q4HR 30 Days vial.neb 05/15/17 predniSONE [PredniSONE] See Taper PO BIDWM #105 tablet 05/15/17 Allergies Allergy/AdvReac Type Severity Reaction Status Date / Time No Known Allergies Allergy Verified 05/16/17 13:20 All systems ED: reviewed and negative except as stated. Constitutional: Denies: fever, chills, weakness Cardiovascular: Denies: chest pain, palpitations Respiratory: Reports: cough, dyspnea, wheezes Gastrointestinal: Denies: abdominal pain, nausea, vomiting Past Medical History - Past Medical History Attestation: Yes The following information was validated with the patient. 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 Absent: scleral icterus, conjunctival injection - ENT ENT exam: normal exam, mucous membranes moist - Neck Neck exam: Present: normal inspection, full ROM. Absent: tenderness, meningismus - Chest Chest inspection: Present: normal inspection, symmetric chest wall rise. Absent : tenderness, rash - Respiratory Respiratory exam: Present: other (Decreased breath sounds throughout) - Cardiovascular Cardiovascular exam: Present: normal rhythm, tachycardia, normal heart sounds - Abdominal Exam Abdominal exam: Present: soft, Non-Tender. Absent: distention, guarding, rebound - Extremities Exam Extremities exam: Present: normal inspection, full ROM - Neurological Exam Neurological exam: Present: alert, oriented X3 - Psychiatric Psychiatric exam: Present: normal affect, normal mood - Skin Skin exam: Present: warm, intact Course Course Narrative: 61-year-old female signed out to me by the day team. Patient has a known right- sided lung cancer. Concern for COPD exacerbation at this time. Patient tachycardic with increased work of breathing upon examination. Decreased breath sounds throughout on examination. We will wait for labs and x-ray but disposition most likely admission at this time. Patient is alert and oriented 3 in the room. Agrees with this plan. - Reevaluation(s) Reevaluation #1: All patient's labs and imaging is comeback within normal limits. Patient still tachycardic with increased work of breathing in the room. We will plan to admit the patient at this time for COPD exacerbation. Patient is alert and oriented 3 in the room and agrees with this plan. I spoke with the hospitalist on-call who agrees to accept the patient at this time. Vital Signs Temperature 98.3 F 05/18/17 17:37 Pulse Rate 111 05/18/17 17:37 Respiratory Rate 22 05/18/17 17:37 Blood Pressure 136/71 05/18/17 17:37 O2 Sat by Pulse Oximetry 96 05/18/17 17:37 Temperature 98.3 F 05/18/17 17:37 Pulse Rate 110 05/18/17 21:36 Respiratory Rate 16 05/18/17 21:36 Blood Pressure 139/91 05/18/17 21:36 O2 Sat by Pulse Oximetry 94 05/18/17 21:36 Oxygen Delivery Oxygen Delivery Nasal Cannula Medical Decision Making - Lab Data Result diagrams: 05/18/17 18:47 05/18/17 18:47 Lab Results 05/18/17 05/18/17 05/18/17 Range/Units 18:47 18:47 18:47 WBC 11.3 H (4.3-11.1) K/mcL RBC 4.12 (3.82-4.97) M/mcL Hgb 12.3 (11.5-15.4) g/dL Hct 38.9 (35.3-44.9) % MCV 94.4 (83.0-100.0) fL MCH 29.9 (28.0-33.3) pg MCHC 31.6 (31.6-35.5) g/dL RDW 15.4 H (11.5-14.5) % Plt Count 234 (140-400) K/mcL MPV 9.7 (9.4-12.4) fL Immature Gran % 0.6 (0-4) % Seg Neutrophils % 89.1 % Lymphocytes % 4.9 % Monocytes % 5.2 % Eosinophils % 0.0 % Basophils % 0.2 % Neutrophils # 10.1 H (1.6-8.9) K/mcL Lymphocytes # 0.6 (0.6-4.6) K/mcL Monocytes # 0.6 (0.0-1.3) K/mcL Eosinophils # 0.0 (0.0-0.6) K/mcL Basophils # 0.0 (0.0-0.2) K/mcL Sodium 140 (136-145) mEq/L Potassium 3.5 (3.5-5.1) mEq/L Chloride 105 (98-107) mEq/L Carbon Dioxide 29 (23-29) mEq/L BUN 16 (8-23) mg/dL Creatinine 0.87 (0.60-1.20) mg/dL Est GFR ( Amer) > 60 (> 60) Est GFR (Non-Af Amer) > 60 (> 60) BUN/Creatinine Ratio 18 (6-26) Glucose 156 H (70-105) mg/dL Calculated Osmolality 294 (280-300) Lactic Acid 1.4 (0.5-2.2) mmol/L Calcium 8.7 (8.6-10.3) mg/dL Troponin I < 0.03 (< 0.04) ng/mL
[2017-05-18] MEDS ORDERED: *HR* OxyCODONE/APAP 5/325 TABLET PO ONE (21:20)
--- NOTE | 2017-05-18 21:47 | Emergency Department Note ---
Disposition Clinical Impression: Shortness of breath Disposition: Still a Patient Condition: Good General Adult HPI - General Chief complaint: ED Shortness of Breath/Dyspnea Stated complaint: sob Time Seen by Provider: 05/18/17 18:02 Source: patient, family Limitations: no limitations - History of Present Illness Pain Scale: 6 - Related Data Home Medications Medication Instructions Recorded Confirmed DULoxetine [Cymbalta] 30 mg PO HS 02/15/16 05/16/17 Trazodone HCl 200 mg PO HS 02/15/16 05/16/17 Albuterol Sulfate [Albuterol 2 puff IH Q6H PRN 10/14/16 05/16/17 Inhaler] Budesonide/Formoterol 160/4.5 2 puff IH BIDR 10/14/16 05/16/17 [Symbicort 160/4.5] Oxygen 2 l NS AD 10/14/16 05/16/17 Tiotropium [Spiriva] 18 mcg IH DAILY 10/14/16 05/16/17 Ascorbate Calcium [Vitamin C] 500 mg PO DAILY 12/14/16 05/16/17 Cholecalciferol (D-3) [Vitamin D] 5,000 unit PO DAILY 02/02/17 05/16/17 Melatonin [Melatin] 3 mg PO HS 02/02/17 05/16/17 Previous Rx's Medication Instructions Recorded Polyethylene Glycol 3350 [MiraLAX] 17 gm PO DAILY PRN #30 powd.pack 12/22/16 Sennosides/Docusate Sodium 2 each PO BID PRN #60 tablet 12/22/16 [Senna-Docusate Sodium Tablet] Calcium Carbonate/Vitamin D3 2 each PO DAILY #60 tablet 12/26/16 [Calcium 500 + Vit D Caplet] LORazepam [Ativan] 0.5 mg PO BID PRN 30 Days #60 03/21/17 tablet OxyCODONE Immed Rel [Roxicodone 10 10 mg PO TID PRN 30 Days #90 tablet 04/22/17 MG] Albuterol Neb [Proventil Neb] 2.5 mg IH Q6H PRN 7 Days #30 vial 05/04/17 Ipratropium/Albuterol Neb [Duoneb] 3 ml IH Q4HR 30 Days vial.neb 05/15/17 predniSONE [PredniSONE] See Taper PO BIDWM #105 tablet 05/15/17 Allergies Allergy/AdvReac Type Severity Reaction Status Date / Time No Known Allergies Allergy Verified 05/16/17 13:20 Constitutional: Denies: fever, chills, weakness Cardiovascular: Denies: chest pain, palpitations Respiratory: Reports: cough, dyspnea, wheezes Gastrointestinal: Denies: abdominal pain, nausea, vomiting Past Medical History - Past Medical History Medical history: Reports: cancer, COPD, hypertension Surgical history: Reports: hysterectomy Psychiatric history: Reports: anxiety, depression WAIST PLEATER history: Reports: no WAIST PLEATER history - Social History Smoking Status: Former smoker Smokeless Tobacco Status: No Alcohol use: Reports: none Drug use: Reports: none Physical Exam - General Limitations: no limitations General appearance: alert, in distress (respiratory) Course Vital Signs Temperature 98.3 F 05/18/17 17:37 Pulse Rate 111 05/18/17 17:37 Respiratory Rate 22 05/18/17 17:37 Blood Pressure 136/71 05/18/17 17:37 O2 Sat by Pulse Oximetry 96 05/18/17 17:37 Temperature 98.3 F 05/18/17 17:37 Pulse Rate 110 05/18/17 21:36 Respiratory Rate 16 05/18/17 21:36 Blood Pressure 139/91 05/18/17 21:36 O2 Sat by Pulse Oximetry 94 05/18/17 21:36 Oxygen Delivery Oxygen Delivery Nasal Cannula Medical Decision Making - Lab Data Result diagrams: 05/18/17 18:47 05/18/17 18:47 Lab Results 05/18/17 05/18/17 05/18/17 Range/Units 18:47 18:47 18:47 WBC 11.3 H (4.3-11.1) K/mcL RBC 4.12 (3.82-4.97) M/mcL Hgb 12.3 (11.5-15.4) g/dL Hct 38.9 (35.3-44.9) % MCV 94.4 (83.0-100.0) fL MCH 29.9 (28.0-33.3) pg MCHC 31.6 (31.6-35.5) g/dL RDW 15.4 H (11.5-14.5) % Plt Count 234 (140-400) K/mcL MPV 9.7 (9.4-12.4) fL Immature Gran % 0.6 (0-4) % Seg Neutrophils % 89.1 % Lymphocytes % 4.9 % Monocytes % 5.2 % Eosinophils % 0.0 % Basophils % 0.2 % Neutrophils # 10.1 H (1.6-8.9) K/mcL Lymphocytes # 0.6 (0.6-4.6) K/mcL Monocytes # 0.6 (0.0-1.3) K/mcL Eosinophils # 0.0 (0.0-0.6) K/mcL Basophils # 0.0 (0.0-0.2) K/mcL Sodium 140 (136-145) mEq/L Potassium 3.5 (3.5-5.1) mEq/L Chloride 105 (98-107) mEq/L Carbon Dioxide 29 (23-29) mEq/L BUN 16 (8-23) mg/dL Creatinine 0.87 (0.60-1.20) mg/dL Est GFR ( Amer) > 60 (> 60) Est GFR (Non-Af Amer) > 60 (> 60) BUN/Creatinine Ratio 18 (6-26) Glucose 156 H (70-105) mg/dL Calculated Osmolality 294 (280-300) Lactic Acid 1.4 (0.5-2.2) mmol/L Calcium 8.7 (8.6-10.3) mg/dL Troponin I < 0.03 (< 0.04) ng/mL Attestation Statement - Attestation Attestation: I, Brandon Huang MD, personally evaluated this patient and discussed their management with the resident physician. I reviewed the resident's note and agree with the documented findings, medical decision making, and plan of care. This patient was signed out at shift change from Dr. Farrell and Dr. Barfield. Please refer to their notes for complete details of the history and physical examination. Patient has a history of COPD as well as lung cancer. She is oxygen dependent and presented complaining of increased shortness of breath and oxygen demand today. On examination patient is a well-developed thin elderly female in mild respiratory distress. She is tachypneic and tachycardic at time of my exam which is posttreatment. She still has some scattered wheezes and decreased breath sounds bilaterally. Heart is tachycardic. Regular. Abdomen soft with normal bowel sounds. Labs and x-ray reviewed. The hospitalist, Dr. Acuña, was consulted and accepted admission of the patient.
--- NOTE | 2017-05-18 22:33 | Internal Med History&Physical ---
Date of Encounter: 05/18/17 Time of Encounter: 22:33 Assessment and Plan (1) COPD exacerbation Status: Acute - SOB due to *COPD exacerbation that is most likely secondary to her underlying malignancy of the lung however being exacerbated by URTI vs allergen exposure vs medication nonocompliance cannot be excluded PLAN: - Aerosols q 4 hr and PRN SOB - Solu-medrol 40 mg IV q 6 hr - O2 to keep SpO2 higher than 92% (SpO higher than 95% if CAD) - CBCD, BMP in AM - Sputum Gram stain, C+S - Tylenol 650 mg PO q 4-6 hr PRN pain/fever - Heparin 5000 U SQ BID - Home meds - check the list and restart - Azithromycine 500 po daily (2) Hyponatremia Status: Chronic 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 (3) 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 The patient follow up with oncology as an outpatient and she is about to start radiotherapy (4) Anemia Status: Chronic Most likely secondary to anemia of chronic disease, HGB is stable we will continue to monitor Qualifiers: Anemia type: other cause Other causes of anemia: antineoplastic chemotherapy Qualified Code(s): D64.81 - Anemia due to antineoplastic chemotherapy; T45.1X5A - Adverse effect of antineoplastic and immunosuppressive drugs, initial encounter; T45.1X5A - Adverse effect of antineoplastic and immunosuppressive drugs, initial encounter (5) DVT prophylaxis Status: Acute Heparin 5000 U SQ BID Internal Medicine - H&P: HPI Chief complaint: Shortness of breath Admitted From: Home Plans for Post Hospital Care: Home History of present illness: Ms. Keenan is a 61 year old female with history of small cell lung cancer s/p chemotherapy, recent COPD exacerbation, and recent pneumonia who presents with worsening SOB associated with cough that did not respond to breathing treatment at home without resolution. He is already on steroids and antibiotic treatment as an outpatient for a prior CABG exacerbation, however apparently she is having outpatient treatment which is most likely due to the underlying malignancy , she is under the care of oncology and scheduled for radiation treatment next week. CXR revealed The cardiomediastinal silhouette is grossly unchanged. Mild unchanged right basilar airspace opacities. No pneumothorax, vascular congestion, or pleural effusion. No acute osseous abnormality. The patient was admitted for further evaluation and management. Past Med Surg Social Fam HX - Past Medical History Medical history: cancer, COPD, hypertension Psychiatric history: anxiety, depression - Past Surgical History Surgical History: hysterectomy - Social History Smoking Status: Former smoker Smokeless Tobacco Status: No Alcohol use: none Drug use: none - Family History Sister Family Member Ethnicity: Non- Living Status: Still Living Hx Family Cardiac Disorders: Yes (HTN) Hx Family Cancer: Yes (Lymphoma) Mother Family Member Ethnicity: Non- Living Status: Hx Family Cardiac Disorders: Yes (Aneurysm, HTN) Hx Family Respiratory Disorders: Yes (COPD) Father Adopted: No Family Member Ethnicity: Non- Living Status: Hx Family Cardiac Disorders: Yes (CHF, CAD, DC) Hx Family Respiratory Disorders: Yes (mother copd) Hx Family Cancer: No Hx Family GI Disorders: No Hx Family Endocrine Disorder: No Hx Family Neuromuscular Disorders: No Hx Family Neurologic Disorders: No Hx Family HEENT Disorders: No Hx Family Autoimmune Disorders: No Internal Medicine - H&P: Meds DULoxetine [Cymbalta] 30 mg PO HS 02/15/16 [History] Trazodone HCl 200 mg PO HS 02/15/16 [History] Albuterol Sulfate [Albuterol Inhaler] 2 puff IH Q6H PRN 10/14/16 [History] Budesonide/Formoterol 160/4.5 [Symbicort 160/4.5] 2 puff IH BIDR 10/14/16 [ History] Oxygen 2 l NS AD 10/14/16 [History] Tiotropium [Spiriva] 18 mcg IH DAILY 10/14/16 [History] Ascorbate Calcium [Vitamin C] 500 mg PO DAILY 12/14/16 [History] Polyethylene Glycol 3350 [MiraLAX] 17 gm PO DAILY PRN #30 powd.pack 12/22/16 [Rx ] Sennosides/Docusate Sodium [Senna-Docusate Sodium Tablet] 2 each PO BID PRN #60 tablet 12/22/16 [Rx] Calcium Carbonate/Vitamin D3 [Calcium 500 + Vit D Caplet] 2 each PO DAILY #60 tablet 12/26/16 [Rx] Cholecalciferol (D-3) [Vitamin D] 5,000 unit PO DAILY 02/02/17 [History] Melatonin [Melatin] 3 mg PO HS 02/02/17 [History] Albuterol Neb [Proventil Neb] 2.5 mg IH Q6H PRN 7 Days #30 vial 05/04/17 [Rx] Ipratropium/Albuterol Neb [Duoneb] 3 ml IH Q4HR 30 Days vial.neb 05/15/17 [Rx] Carvedilol 12.5 mg PO BID #60 tab 05/23/17 [Rx] GuaiFENesin ER [Mucinex] 600 mg PO BID #60 tbbp.12hr 05/23/17 [Rx] LORazepam [Ativan] 0.5 mg PO BID PRN 7 Days #14 tablet 05/23/17 [Rx] OxyCODONE Immed Rel [Roxicodone 10 MG] 10 mg PO TID PRN 7 Days #21 tablet [Rx] hydrALAZINE [HydrALAZINE] 25 mg PO Q8HR #90 tablet 05/23/17 [Rx] Ciprofloxacin [Cipro] 500 mg PO BID #20 tablet 06/03/17 [Rx] Lidocaine Patch [Lidoderm 5% patch] 1 each TP DAILY #30 adh..patch 06/03/17 [Rx] Lisinopril [Zestril] 2.5 mg PO DAILY #30 tablet 06/03/17 [Rx] Omeprazole [PriLOSEC] 20 mg PO DAILY@0630 #30 capsule. 06/03/17 [Rx] Promethazine [Phenergan] 12.5 mg PO Q6HR PRN #30 tablet 06/03/17 [Rx] Sucralfate [Carafate] 1 gm PO QIDAC #40 udc 06/03/17 [Rx] predniSONE [PredniSONE] 10 mg PO DAILY #80 tablet 06/03/17 [Rx] predniSONE [PredniSONE] See Taper PO DAILY #126 tablet 06/03/17 [Rx] 3 Allergy/AdvReac Type Severity Reaction Status Date / Time No Known Allergies Allergy Verified 05/27/17 08:12 All Systems PM: A 10-system review of systems was performed and is negative for pertinent findings except as documented above in the HPI. - Constitutional Constitutional: fatigue, malaise, no chills, no fever(s), no night sweats - Cardiovascular Cardiovascular ROS IM: dyspnea, no chest pain, no diaphoresis, no lightheadedness, no palpitations, no syncope - Respiratory Respiratory: dyspnea, no cough, no wheezing, no excessive phlegm production - Gastrointestinal Gastrointestinal: no abdominal pain, no diarrhea, no hematemesis, no hematochezia, no melena, no nausea, no vomiting - Genitourinary Genitourinary: no change in urinary stream, no dysuria, no flank pain, no hematuria - Constitutional Vitals: Temp Pulse Resp BP Pulse Ox 98.3 F 110 16 139/91 94 05/18/17 17:37 05/18/17 21:36 05/18/17 21:36 05/18/17 21:36 05/18/17 21:36 General appearance: Present: A&O X 3 - Head Head exam: Present: atraumatic, normocephalic - Neck Neck exam general surgery: Present: supple, trachea midline. Absent: lymphadenopathy - Respiratory Respiratory exam: Present: decreased breath sounds, rhonchi, wheezes. Absent: accessory muscle use, rales - Cardiovascular Cardiovascular exam: Present: RRR, +S1, +S2. Absent: diastolic murmur, gallop, rubs, systolic murmur - GI/Abdominal GI/Abdominal exam: Present: normal bowel sounds, soft, no peritoneal signs. Absent: distended, tenderness - Extremities Exam Extremities exam: Present: warm, radial pulses palpable and symmetrical. Absent : calf tenderness, cyanotic, pedal edema Internal Med - H&P Results - Labs CBC & Chem 7: 05/22/17 05:50 05/22/17 05:50
[2017-05-18] MEDS ORDERED: Sennosides/Docusate Sodium TABLET PO PRN (23:37)
[2017-05-19] MEDS: *HR* LORazepam 0.5 MG TABLET PO PRN ×3 (00:46→19:30)
[2017-05-19] MEDS: MethylPREDNISolone 40 MG/ML VIAL IVP SCH ×4 (00:47→17:59)
[2017-05-19] MEDS: Albuterol 2.5 MG/3 ML NEBULIZER IH PRN (00:47)
[2017-05-19 01:06] LABS: Basophils % 0.1 %; Hematocrit 38.9 % (35.3-44.9); Hemoglobin 12.3 g/dL (11.5-15.4); Immature Granulocytes % 0.4 % (0-4); Lymphocytes # 0.3 K/mcL (0.6-4.6); Lymphocytes % 1.8 %; Mean Corpuscular HGB Conc 31.6 g/dL (31.6-35.5); Mean Corpuscular Volume 94.9 fL (83.0-100.0); Mean Platelet Volume 9.9 fL (9.4-12.4); Monocytes # 0.1 K/mcL (0.0-1.3); Monocytes % 0.8 %; Neutrophils # 13.3 K/mcL (1.6-8.9); Platelet Count 243 K/mcL (140-400); Red Cell Distribution Width 15.3 % (11.5-14.5); Segmented Neutrophils % 96.9 %
[2017-05-19 01:14] LABS: Alanine Aminotransferase 22 Units/L (7-52); Albumin 3.6 g/dL (3.5-5.7); Albumin/Globulin Ratio 1.7 (1.1-2.2); Alkaline Phosphatase 59 Units/L (34-104); Aspartate Amino Transferase 13 Units/L (13-39); BUN/Creatinine Ratio 31 (6-26); Bilirubin,Total 0.3 mg/dL (0.3-1.0); Blood Urea Nitrogen 22 mg/dL (8-23); Calcium 8.7 mg/dL (8.6-10.3); Carbon Dioxide 27 mEq/L (23-29); Chloride 105 mEq/L (98-107); Globulin 2.1 g/dL (2.4-3.5); Glucose 247 mg/dL (70-105); Osmolality,Calculated 302 (280-300); Potassium 4.1 mEq/L (3.5-5.1); Sodium 140 mEq/L (136-145); Total Protein 5.7 g/dL (6.4-8.9); eGFR For African Americans > 60 (> 60); eGFR For Non-African Americans > 60 (> 60)
[2017-05-19] MEDS: Melatonin 3 MG TABLET PO SCH ×2 (01:20→20:13)
[2017-05-19] MEDS: traZODone 50 MG TABLET PO SCH ×2 (01:21→20:13)
[2017-05-19] MEDS: Azithromycin 500 MG in D5% in Water 250 ML IVPB SCH (02:21)
[2017-05-19] MEDS: Ipratropium/Albuterol Neb 3 ML IH SCH ×6 (04:47→19:45)
[2017-05-19] MEDS ORDERED: Ipratropium/Albuterol Neb 3 ML IH SCH (05:00)
[2017-05-19] MEDS: *HR* Heparin 5,000 UNIT/ML VIAL SQ SCH ×2 (06:01→17:59)
[2017-05-19] MEDS: *HR* OxyCODONE Immed Rel 5 MG TABLET PO PRN ×2 (07:22→13:58)
[2017-05-19] MEDS: Budesonide/Formoterol 160/4.5 MDI IH SCH ×2 (07:32→19:53)
[2017-05-19] MEDS: Tiotropium 18 MCG inhalation IH SCH (07:34)
[2017-05-19] MEDS: Ascorbic Acid 500 MG TABLET PO SCH (10:34)
[2017-05-19] MEDS: Cholecalciferol (D-3) 1,000 UNIT TABLET PO SCH (10:34)
[2017-05-19] MEDS: Nicotine 14 MG PATCH.TD24 TD SCH (10:45)
--- NOTE | 2017-05-19 12:32 | Internal Med Progress Note ---
<Joe Greene - Last Filed: 05/19/17 12:54> Date of Encounter: 05/19/17 Time of Encounter: 12:30 - Assessment and plan (1) COPD exacerbation Current Visit: No Status: Acute Assessment and plan: COPD exacerbation that is most likely secondary to her underlying malignancy of the lung however being exacerbated by URTI vs allergen exposure vs medication nonocompliance cannot be excluded CXR demonstrated the following: -Mild unchanged right basilar airspace opacities may represent atelectasis versus scarring versus pneumonia. Plan: - Aerosols q 4 hr and PRN SOB - Solu-medrol 40 mg IV q 6 hr - O2 to keep SpO2 higher than 92% (SpO higher than 95% if CAD) - CBCD, BMP in AM - Sputum Gram stain, C+S - Tylenol 650 mg PO q 4-6 hr PRN pain/fever - Heparin 5000 U SQ BID - Home meds - check the list and restart - Azithromycin 500 PO daily (2) Small cell 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 Current Visit: No Status: Chronic Assessment and plan: The patient follow up with oncology as an outpatient and she is about to start radiotherapy (3) Anemia Current Visit: No Status: Chronic Assessment and plan: Most likely secondary to anemia of chronic disease, HGB is stable we will continue to monitor Qualifiers: Anemia type: other cause Other causes of anemia: antineoplastic chemotherapy Qualified Code(s): D64.81 - Anemia due to antineoplastic chemotherapy; T45.1X5A - Adverse effect of antineoplastic and immunosuppressive drugs, initial encounter; T45.1X5A - Adverse effect of antineoplastic and immunosuppressive drugs, initial encounter - Subjective Interval history: Patient seen and examined at bedside this afternoon. Reports that she came in with similar complaints to last visit. Denies having any cough, fever, chills, or shortness of breath right now. Currently on O2 via [place]. [place] excess sputum production. Reports that she felt better for a few days on release. Supposed to have an appointment with oncology in the outpatient setting on saturday. Will consult oncology for further recommendations. No further complaints at this time. - Constitutional Vitals: Temp Pulse Resp BP Pulse Ox 98.7 F 117 18 136/91 93 05/19/17 12:00 05/19/17 12:05/19/17 12:05/19/17 12:05/19/17 12:00 General appearance: Present: A&O X 3 - Head Head exam: Present: atraumatic, normocephalic - Eye Eye exam: Present: PERRL, conjuntiva pink, sclera anicteric Pupils: Present: PERRL - Neck Neck exam general surgery: Absent: lymphadenopathy - Respiratory Respiratory exam: Present: decreased breath sounds, rales, respiratory distress , wheezes. Absent: accessory muscle use, rhonchi - Cardiovascular Cardiovascular exam: Present: RRR, +S1, +S2. Absent: diastolic murmur, gallop, rubs, systolic murmur - Neurological Exam Neurological exam: Present: oriented X3. Absent: facial droop, speech deficit - Skin Skin exam: Present: dry, intact Internal Medicine: Result - Labs CBC & Chem 7: 05/19/17 00:41 05/19/17 00:41 Labs: Short CBC 05/19/17 Range/Units 00:41 WBC 13.7 H (4.3-11.1) K/mcL Hgb 12.3 (11.5-15.4) g/dL Hct 38.9 (35.3-44.9) % Plt Count 243 (140-400) K/mcL Neutrophils # 13.3 H (1.6-8.9) K/mcL BMP 05/19/17 00:41 Sodium 140 Potassium 4.1 Chloride 105 Carbon Dioxide 27 BUN 22 Creatinine 0.72 Glucose 247 H Calcium 8.7 Liver Function 05/19/17 Range/Units 00:41 Total Bilirubin 0.3 (0.3-1.0) mg/dL AST 13 (13-39) Units/L ALT 22 (7-52) Units/L Alkaline Phosphatase 59 (34-104) Units/L Albumin 3.6 (3.5-5.7) g/dL Consult Discharge Plan - Plan Referrals: Ron Ward MD [Primary Care Provider] - <Bam Schaefer H - Last Filed: 05/19/17 13:01> Date of Encounter: 05/19/17 - Constitutional Vitals: Temp Pulse Resp BP Pulse Ox 98.7 F 117 18 136/91 93 05/19/17 12:00 05/19/17 12:00 05/19/17 12:00 05/19/17 12:00 05/19/17 12:00 Internal Medicine: Result - Labs CBC & Chem 7: 05/19/17 00:41 05/19/17 00:41 Labs: Short CBC 05/19/17 05/19/17 05/19/17 Range/Units 00:41 00:41 05:40 WBC 13.7 H (4.3-11.1) K/mcL RBC 4.10 (3.82-4.97) M/mcL Hgb 12.3 (11.5-15.4) g/dL Hct 38.9 (35.3-44.9) % MCV 94.9 (83.0-100.0) fL MCH 30.0 (28.0-33.3) pg MCHC 31.6 (31.6-35.5) g/dL RDW 15.3 H (11.5-14.5) % Plt Count 243 (140-400) K/mcL MPV 9.9 (9.4-12.4) fL Immature Gran % 0.4 (0-4) % Seg Neutrophils % 96.9 % Lymphocytes % 1.8 % Monocytes % 0.8 % Eosinophils % 0.0 % Basophils % 0.1 % Neutrophils # 13.3 H (1.6-8.9) K/mcL Lymphocytes # 0.3 L (0.6-4.6) K/mcL Monocytes # 0.1 (0.0-1.3) K/mcL Eosinophils # 0.0 (0.0-0.6) K/mcL Basophils # 0.0 (0.0-0.2) K/mcL Sodium 140 (136-145) mEq/L Potassium 4.1 (3.5-5.1) mEq/L Chloride 105 (98-107) mEq/L Carbon Dioxide 27 (23-29) mEq/L BUN 22 (8-23) mg/dL Creatinine 0.72 (0.60-1.20) mg/dL Est GFR ( Amer) > 60 (> 60) Est GFR (Non-Af Amer) > 60 (> 60) BUN/Creatinine Ratio 31 H (6-26) Glucose 247 H (70-105) mg/dL POC Glucose 129 H (58-89) mg/dL Calculated Osmolality 302 H (280-300) Calcium 8.7 (8.6-10.3) mg/dL Total Bilirubin 0.3 (0.3-1.0) mg/dL AST 13 (13-39) Units/L ALT 22 (7-52) Units/L Alkaline Phosphatase 59 (34-104) Units/L Serum Total Protein 5.7 L (6.4-8.9) g/dL Albumin 3.6 (3.5-5.7) g/dL Globulin 2.1 L (2.4-3.5) g/dL Albumin/Globulin Ratio 1.7 (1.1-2.2) BMP 05/19/17 00:41 Sodium 140 Potassium 4.1 Chloride 105 Carbon Dioxide 27 BUN 22 Creatinine 0.72 Glucose 247 H Calcium 8.7 Liver Function 05/19/17 Range/Units 00:41 Total Bilirubin 0.3 (0.3-1.0) mg/dL AST 13 (13-39) Units/L ALT 22 (7-52) Units/L Alkaline Phosphatase 59 (34-104) Units/L Albumin 3.6 (3.5-5.7) g/dL - Attending Attestation Acute hypoxic respiratory failure secondary to acute COPD exacerbation 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 I agree with the documented findings, disposition and treatment plan as described except to the extent set forth below.
[2017-05-19] MEDS: Fluconazole 400 MG/200 ML 400 MG/200 ML BAG IVPB SCH (20:12)
[2017-05-19] MEDS ORDERED: Melatonin 3 MG TABLET PO SCH (21:00)
[2017-05-19] MEDS ORDERED: traZODone 50 MG TABLET PO SCH (21:00)
[2017-05-20] MEDS: Ipratropium/Albuterol Neb 3 ML IH SCH ×6 (00:36→20:54)
[2017-05-20] MEDS: Azithromycin 500 MG in D5% in Water 250 ML IVPB SCH (01:09)
[2017-05-20] MEDS: MethylPREDNISolone 40 MG/ML VIAL IVP SCH ×4 (01:09→17:32)
[2017-05-20 04:13] LABS: Basophils % 0.1 %; Hematocrit 34.7 % (35.3-44.9); Hemoglobin 10.8 g/dL (11.5-15.4); Immature Granulocytes % 0.5 % (0-4); Lymphocytes # 0.3 K/mcL (0.6-4.6); Lymphocytes % 1.9 %; Mean Corpuscular HGB Conc 31.1 g/dL (31.6-35.5); Mean Corpuscular Hemoglobin 29.2 pg (28.0-33.3); Mean Corpuscular Volume 93.8 fL (83.0-100.0); Monocytes # 0.3 K/mcL (0.0-1.3); Monocytes % 1.9 %; Neutrophils # 12.5 K/mcL (1.6-8.9); Platelet Count 212 K/mcL (140-400); Red Cell Distribution Width 15.2 % (11.5-14.5); Segmented Neutrophils % 95.6 %
[2017-05-20 04:29] LABS: BUN/Creatinine Ratio 28 (6-26); Blood Urea Nitrogen 17 mg/dL (8-23); Calcium 8.6 mg/dL (8.6-10.3); Carbon Dioxide 28 mEq/L (23-29); Chloride 107 mEq/L (98-107); Glucose 225 mg/dL (70-105); Osmolality,Calculated 301 (280-300); Potassium 4.1 mEq/L (3.5-5.1); Sodium 141 mEq/L (136-145); eGFR For African Americans > 60 (> 60); eGFR For Non-African Americans > 60 (> 60)
[2017-05-20] MEDS: *HR* Heparin 5,000 UNIT/ML VIAL SQ SCH ×2 (06:12→17:35)
[2017-05-20] MEDS: Budesonide/Formoterol 160/4.5 MDI IH SCH ×2 (07:44→20:54)
[2017-05-20] MEDS: Tiotropium 18 MCG inhalation IH SCH (07:47)
[2017-05-20] MEDS: Cholecalciferol (D-3) 1,000 UNIT TABLET PO SCH (09:12)
[2017-05-20] MEDS: Nicotine 14 MG PATCH.TD24 TD SCH (09:12)
[2017-05-20] MEDS: *HR* OxyCODONE Immed Rel 5 MG TABLET PO PRN ×2 (09:12→15:45)
[2017-05-20] MEDS: Ascorbic Acid 500 MG TABLET PO SCH (09:12)
[2017-05-20] MEDS: Fluconazole 400 MG/200 ML 400 MG/200 ML BAG IVPB SCH (09:14)
--- NOTE | 2017-05-20 11:16 | Pulmonology Consult Note ---
Date of Encounter: 05/20/17 Time of Encounter: 11:15 Assessment and Plan (1) Acute and chronic respiratory failure Current Visit: No Status: Resolved Continue supplemental oxygen to keep saturation greater than 88% around 92% this is multifactorial in secondary to advanced COPD lung cancer likely pneumonia and COPD exacerbation Qualifiers: Respiratory failure complication: hypoxia Qualified Code(s): J96.21 - Acute and chronic respiratory failure with hypoxia (2) Acute exacerbation of COPD with asthma Current Visit: No Status: Acute I agree with IV formulation of steroids she is currently at 40 3 times a day this can be increased to 60 3 times a day she may need a larger dose of home- going steroid at the time of discharge Continue bronchodilators and metered-dose inhalers (3) Lung cancer Current Visit: No Status: Chronic Qualifiers: Laterality: right Lung location: lower lobe of lung Qualified Code(s): C34.31 - Malignant neoplasm of lower lobe, right bronchus or lung (4) Bronchial obstruction Current Visit: No Status: Acute Patient has right bronchus intermedius obstruction which is a combination of endobronchial tumor and extrinsic compression from Mass. As far as interventional pulmonary procedures I do not feel there is much more to offer her at this time definitive treatment would have to be radiation. I have obtained a CT scan to further evaluate underlying degree of aeration of the right lower lobe. (5) Pneumonia Current Visit: No Status: Resolved Possibly recurrent pneumonia from post-obstruction. She is currently on azithromycin which appears to be more for COPD exacerbation she presents with a white count which certainly could be related to steroid use however I would have a low threshold for broadening out her antimicrobials to treat hospital associated organisms Qualifiers: Pneumonia type: due to other aerobic Gram-negative bacteria Laterality: right Lung location: middle lobe of lung Qualified Code(s): J15.6 - Pneumonia due to other Gram-negative bacteria (6) Thrush Current Visit: No Status: Acute Patient was noted to have thrush during bronchoscopy last visit and grew out Kirstin from bronchial cultures this is typically a contaminant however she has not done very poorly taking the nystatin swish and swallow is very reasonable to treat with fluconazole for thrush in general this would also treat any sort of lung involvement that may be contributing to her course which is unclear at this time but suspected to be minimal if any (7) DVT prophylaxis Current Visit: No Status: Acute Chemical DVT prophylaxis unless contraindication arises (8) Goals of care, counseling/discussion Current Visit: No Status: Acute I discussed with Domi last admission and during this admission her prognosis is very poor if she is unable to obtain radiation therapy at this point she has been able to started just because of how ill she is been and with recurrent hospitalizations. Every effort should be made to try to keep tomorrow's appointment with radiation oncology. I recommend formal discussion by her primary oncologist visit with her during this hospitalization History of Present Illness Consult date: 05/20/17 Requesting physician: Bam Schaefer Reason for consult: pneumonia Chief complaint: Difficulty in Breathing History of present illness: This is a very pleasant 61-year-old woman who unfortunately has advanced lung cancer. Course is further complicated by chronic respiratory failure and advanced COPD. She has had multiple admissions to the hospital on a monthly basis since her diagnosis in October. Unfortunately readmissions have become even more frequent every week or 2 over the last month to 6 weeks. She returns again today for COPD exacerbation and increased cough. At last admission was noted to have obstruction of the right mainstem bronchus for which she underwent significant debulking balloon dilation of that area with improvement in aeration into the right lower lung which was noted to have postobstructive pneumonia cultures from that visit were negative except for yeast species Kirstin that grew out. Unfortunately she has been hospitalized too frequently to undergo radiation therapy to the obstructing lesion which would be more of lasting/definitive treatment she was scheduled to start radiation tomorrow Pulmonary was consuled to make further recommendations on this complicated picture Past Med Surg Social Fam HX - Past Medical History Medical history: cancer, COPD, hypertension Psychiatric history: anxiety, depression - Past Surgical History Surgical History: hysterectomy - Social History Smoking Status: Former smoker Smokeless Tobacco Status: No Alcohol use: none Drug use: none - Family History Sister Family Member Ethnicity: Non- Living Status: Still Living Hx Family Cardiac Disorders: Yes (HTN) Hx Family Cancer: Yes (Lymphoma) Mother Family Member Ethnicity: Non- Living Status: Hx Family Cardiac Disorders: Yes (Aneurysm, HTN) Hx Family Respiratory Disorders: Yes (COPD) Father Adopted: No Family Member Ethnicity: Non- Living Status: Hx Family Cardiac Disorders: Yes (CHF, CAD, GA) Hx Family Respiratory Disorders: Yes (mother copd) Hx Family Cancer: No Hx Family GI Disorders: No Hx Family Endocrine Disorder: No Hx Family Neuromuscular Disorders: No Hx Family Neurologic Disorders: No Hx Family HEENT Disorders: No Hx Family Autoimmune Disorders: No Medications and Allergies DULoxetine [Cymbalta] 30 mg PO HS 02/15/16 [History] Trazodone HCl 200 mg PO HS 02/15/16 [History] Albuterol Sulfate [Albuterol Inhaler] 2 puff IH Q6H PRN 10/14/16 [History] Budesonide/Formoterol 160/4.5 [Symbicort 160/4.5] 2 puff IH BIDR 10/14/16 [ History] Oxygen 2 l NS AD 10/14/16 [History] Tiotropium [Spiriva] 18 mcg IH DAILY 10/14/16 [History] Ascorbate Calcium [Vitamin C] 500 mg PO DAILY 12/14/16 [History] Polyethylene Glycol 3350 [MiraLAX] 17 gm PO DAILY PRN #30 powd.pack 12/22/16 [Rx ] Sennosides/Docusate Sodium [Senna-Docusate Sodium Tablet] 2 each PO BID PRN #60 tablet 12/22/16 [Rx] Calcium Carbonate/Vitamin D3 [Calcium 500 + Vit D Caplet] 2 each PO DAILY #60 tablet 12/26/16 [Rx] Cholecalciferol (D-3) [Vitamin D] 5,000 unit PO DAILY 02/02/17 [History] Melatonin [Melatin] 3 mg PO HS 02/02/17 [History] LORazepam [Ativan] 0.5 mg PO BID PRN 30 Days #60 tablet 03/21/17 [Rx] OxyCODONE Immed Rel [Roxicodone 10 MG] 10 mg PO TID PRN 30 Days #90 tablet 04/22 [Rx] Albuterol Neb [Proventil Neb] 2.5 mg IH Q6H PRN 7 Days #30 vial 05/04/17 [Rx] Ipratropium/Albuterol Neb [Duoneb] 3 ml IH Q4HR 30 Days vial.neb 05/15/17 [Rx] predniSONE [PredniSONE] See Taper PO DAILY 05/18/17 [History] Amoxicillin/Clavulanate [Augmentin] 875 mg PO BID 05/19/17 [History] 3 Allergy/AdvReac Type Severity Reaction Status Date / Time No Known Allergies Allergy Verified 05/16/17 13:20 All Systems: The remainder of the systems were reviewed and are negative Physical Examination Vital Signs: Vital Signs, Last 4 Hours Resp BP Pulse Ox 05/20/17 09:46 98 05/20/17 07:45 18 136/92 98 General appearance: no acute distress Effort: mildly labored Auscultation: bilateral: wheezes Cardiovascular: regular rate and rhythm Gastrointestinal: soft, non-tender Integumentary: other (Thinning of skin consistent with chronic steroid use) Extremities: no edema Musculoskeletal: no deformities normal mental status, non-focal exam mood appropriate Results - Laboratory Findings CBC and BMP: 05/20/17 03:28 05/20/17 03:28 Abnormal lab findings: Abnormal lab results WBC 13.1 K/mcL (4.3-11.1) H 05/20/17 03:28 RBC 3.70 M/mcL (3.82-4.97) L 05/20/17 03:28 Hgb 10.8 g/dL (11.5-15.4) L D 05/20/17 03:28 Hct 34.7 % (35.3-44.9) L 05/20/17 03:28 MCHC 31.1 g/dL (31.6-35.5) L 05/20/17 03:28 RDW 15.2 % (11.5-14.5) H 05/20/17 03:28 Neutrophils # 12.5 K/mcL (1.6-8.9) H 05/20/17 03:28 Lymphocytes # 0.3 K/mcL (0.6-4.6) L 05/20/17 03:28 BUN/Creatinine Ratio 28 (6-26) H 05/20/17 03:28 Glucose 225 mg/dL (70-105) H 05/20/17 03:28 POC Glucose 129 mg/dL (58-89) H 05/19/17 05:40 Calculated Osmolality 301 (280-300) H 05/20/17 03:28 Serum Total Protein 5.7 g/dL (6.4-8.9) L 05/19/17 00:41 Globulin 2.1 g/dL (2.4-3.5) L 05/19/17 00:41 - Microbiology Findings Microbiology Findings: Microbiology, Last 48 Hours 05/19/17 14:20 Legionella Antigen - Final Urine,Kidney - Diagnostic Findings Chest x-ray: report reviewed, image reviewed - Clinical Findings Intake & Output: Intake & Output 05/19/17 05/20/17 05/20/17 23:59 07:59 15:59 Intake Total 680 / 680 790 / 790 Output Total 0 / 0 1400 / 1400 0 / 0 Balance 680 / 680 -1400 / -1400 790 / 790 Weight 47.2 kg Consult Discharge Plan - Plan Referrals: Ron Ward MD [Primary Care Provider] -
[2017-05-20] MEDS: *HR* LORazepam 0.5 MG TABLET PO PRN ×2 (12:02→20:35)
--- NOTE | 2017-05-20 12:28 | Internal Med Progress Note ---
Date of Encounter: 05/20/17 Time of Encounter: 12:24 - Assessment and plan (1) Acute exacerbation of chronic obstructive airways disease Current Visit: No Status: Acute Assessment and plan: Acute hypoxic respiratory failure secondary to acute COPD exacerbation from possible lymphangitic carcinomatosis, unclear whether the patient has persistent pneumonia (fungal?) Kirstin albicans growing on prior culture after bronchoscopy Fluconazole IV day #2 Pulmonary recommendations appreciated in order to continue or not antifungal therapy Continue IV Solu-Medrol, oxygen therapy, DuoNeb's Azithromycin day #2 Had first appointment last week to start radiotherapy as outpatient, first treatment was scheduled for 05/21/2017 Oncology recommendations appreciated (2) HTN (hypertension) Current Visit: No Status: Chronic Assessment and plan: Stable Qualifiers: Hypertension type: essential hypertension Qualified Code(s): I10 - Essential (primary) hypertension (3) Osteopenia Current Visit: No Status: Chronic Assessment and plan: Calcium and vitamin D Qualifiers: Osteopenia location: spine Qualified Code(s): M85.88 - Other specified disorders of bone density and structure, other site (4) Small cell 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 Current Visit: No Status: Chronic (5) Acute and chronic respiratory failure ([id number]) Current Visit: No Status: Resolved Qualifiers: Respiratory failure complication: hypoxia Qualified Code(s): J96.21 - Acute and chronic respiratory failure with hypoxia (6) Leukocytosis Current Visit: No Status: Resolved Qualifiers: Leukocytosis type: unspecified Qualified Code(s): D72.829 - Elevated white blood cell count, unspecified - Subjective Interval history: Still short of breath, denies any chest pain, no abdominal pain, fevers, no diarrhea or dysuria - Constitutional Vitals: Temp Pulse Resp BP Pulse Ox 97.8 F 102 18 136/92 98 05/20/17 06:40 05/20/17 06:40 05/20/17 11:18 05/20/17 07:45 05/20/17 11:18 General appearance: Present: A&O X 3 - Head Head exam: Present: atraumatic, normocephalic - Eye Eye exam: Present: PERRL, conjuntiva pink, sclera anicteric Pupils: Present: PERRL - Neck Neck exam general surgery: Present: supple, trachea midline. Absent: lymphadenopathy - Respiratory Respiratory exam: Present: CTAB, wheezes (Diffuse wheezing). Absent: accessory muscle use, rales, rhonchi - Cardiovascular Cardiovascular exam: Present: RRR, +S1, +S2. Absent: diastolic murmur, gallop, rubs, systolic murmur - GI/Abdominal GI/Abdominal exam: Present: normal bowel sounds, soft, no peritoneal signs. Absent: distended, tenderness - Extremities Exam Extremities exam: Present: warm, radial pulses palpable and symmetrical. Absent : calf tenderness, cyanotic, pedal edema - Neurological Exam Neurological exam: Present: CN II-XII intact, oriented X3, no focal deficits. Absent: pronater drift, facial droop, speech deficit - Skin Skin exam: Present: dry, intact Internal Medicine: Result - Labs CBC & Chem 7: 05/20/17 03:28 05/20/17 03:28 Labs: Short CBC 05/20/17 Range/Units 03:28 WBC 13.1 H (4.3-11.1) K/mcL Hgb 10.8 L D (11.5-15.4) g/dL Hct 34.7 L (35.3-44.9) % Plt Count 212 (140-400) K/mcL Neutrophils # 12.5 H (1.6-8.9) K/mcL BMP 05/20/17 03:28 Sodium 141 Potassium 4.1 Chloride 107 Carbon Dioxide 28 BUN 17 Creatinine 0.60 Glucose 225 H Calcium 8.6 Consult Discharge Plan - Plan Referrals: Ron Ward MD [Primary Care Provider] -
--- NOTE | 2017-05-20 12:36 | Electrocardiograph Report ---
[place] [id number] Test Date: 2017-05-18 Pat Name: Domi Keenan Department: 103 Room: 2NE17 Gender: F Spring Setter: : 1955 Requested By: Tai Long Order Number: [id number] Reading MD: Tj Singh Measurements Intervals [place] Rate: 104 P: 49 MD: 161 QRS: -28 QRSD: 73 T: 51 QT: 309 QTc: 370 Interpretive Statements SINUS TACHYCARDIA RIGHT ATRIAL ENLARGEMENT BORDERLINE LEFT AXIS DEVIATION BASELINE ARTIFACT Electronically Signed On 05-20-2017 12:34:42 EDT by Tj Singh
[2017-05-20] MEDS ORDERED: Dextrose Gel 15 GM/37.5 ML TUBE PO PRN ×2 (14:39)
[2017-05-20] MEDS ORDERED: D5% in Water 1,000 ML IVC PRN (14:39)
[2017-05-20] MEDS ORDERED: *HR* Dextrose 50 % in Water (Syg) 50 ML SYRINGE IVP PRN (14:39)
[2017-05-20] MEDS: Insulin LISPRO 300 UNITS/3 ML VIAL SQ SCH (17:36)
[2017-05-20] MEDS: traZODone 50 MG TABLET PO SCH (20:34)
[2017-05-20] MEDS: Melatonin 3 MG TABLET PO SCH (20:35)
[2017-05-21] MEDS: Ipratropium/Albuterol Neb 3 ML IH SCH ×6 (00:14→20:58)
[2017-05-21] MEDS: MethylPREDNISolone 40 MG/ML VIAL IVP SCH ×4 (00:27→16:39)
[2017-05-21] MEDS: Insulin LISPRO 300 UNITS/3 ML VIAL SQ SCH ×5 (00:28→21:28)
[2017-05-21] MEDS: Azithromycin 500 MG in D5% in Water 250 ML IVPB SCH (02:35)
[2017-05-21 04:50] LABS: Basophils % 0.1 %; Hematocrit 35.9 % (35.3-44.9); Hemoglobin 11.1 g/dL (11.5-15.4); Immature Granulocytes % 0.7 % (0-4); Lymphocytes # 0.3 K/mcL (0.6-4.6); Lymphocytes % 1.9 %; Mean Corpuscular HGB Conc 30.9 g/dL (31.6-35.5); Mean Corpuscular Hemoglobin 29.2 pg (28.0-33.3); Mean Corpuscular Volume 94.5 fL (83.0-100.0); Monocytes # 0.2 K/mcL (0.0-1.3); Monocytes % 1.6 %; Neutrophils # 12.9 K/mcL (1.6-8.9); Platelet Count 222 K/mcL (140-400); Red Cell Distribution Width 15.4 % (11.5-14.5); Segmented Neutrophils % 95.7 %
[2017-05-21] MEDS: *HR* Heparin 5,000 UNIT/ML VIAL SQ SCH ×2 (05:29→16:39)
[2017-05-21] MEDS: Budesonide/Formoterol 160/4.5 MDI IH SCH ×2 (07:37→20:58)
[2017-05-21] MEDS: Tiotropium 18 MCG inhalation IH SCH (07:38)
[2017-05-21] MEDS: Cholecalciferol (D-3) 1,000 UNIT TABLET PO SCH (07:51)
[2017-05-21] MEDS: Ascorbic Acid 500 MG TABLET PO SCH (07:51)
[2017-05-21] MEDS: Fluconazole 400 MG/200 ML 400 MG/200 ML BAG IVPB SCH (07:52)
[2017-05-21] MEDS: *HR* OxyCODONE Immed Rel 5 MG TABLET PO PRN ×2 (07:52→13:53)
[2017-05-21] MEDS: Nicotine 14 MG PATCH.TD24 TD SCH (07:53)
--- NOTE | 2017-05-21 10:10 | Internal Med Progress Note ---
<Anatoly Parish - Last Filed: 05/21/17 16:04> Date of Encounter: 05/21/17 Time of Encounter: 08:00 - Assessment and plan (1) Acute and chronic respiratory failure Current Visit: No Status: Resolved Assessment and plan: - Likely multifactorial including post-obstructive pneumonia (? fungal), AE COPD , possible lymphangitic carcinomatosis. - Improves as patient maintains O2 sat above 92% on 2L NC. - Continue azithromycin (Day 3) and fluconazole (Day 3) for pneumonia. Plan to treat for total 5-7 days. - Continue IV steroid, bronchodilators and supplemental oxygen for COPD. - Patient will have first radiation therapy today for her right lung mass. - Pulmonology on board and appreciate further recommendation. - Continue to monitor closely. Possible discharge tomorrow if patient's respiratory status continues to improve. Qualifiers: Respiratory failure complication: hypoxia Qualified Code(s): J96.21 - Acute and chronic respiratory failure with hypoxia (2) Postobstructive pneumonia Current Visit: Yes Status: Acute Assessment and plan: - Right Lower lobe lung BAL culture from 05/08/17 grew Kirstin albicans. - Continue azithromycin (Day 3) and fluconazole (Day 3) for pneumonia. Plan to treat for total 5-7 days. (3) Small cell lung cancer Current Visit: No Status: Chronic Assessment and plan: - Chest CT on 05/20/17 showd a right hilar mass which is mildly increased in size compared to the previous exam. - Patient will have first radiation therapy at [facility] today. (4) Acute exacerbation of chronic obstructive airways disease Current Visit: No Status: Acute Assessment and plan: - Continue IV steroid, bronchodilators and supplemental oxygen for COPD. (5) HTN (hypertension) Current Visit: No Status: Chronic Assessment and plan: - Continue to have high blood pressure. - Will increase Coreg to 6.25 mg PO BID and add hydralazine prn SBP > 160. Qualifiers: Hypertension type: essential hypertension Qualified Code(s): I10 - Essential (primary) hypertension (6) DVT prophylaxis Current Visit: No Status: Acute Assessment and plan: - Continue SQ heparin. - Subjective Interval history: Patient was seen and examined this morning. Patient feels her breathing is worse than yesterday and doesn't think she is ready to go home. Patient still has some non-productive cough. Patient denies chest pain, fever, chills. - Constitutional Vitals: Temp Pulse Resp BP Pulse Ox 98.6 F 99 15 128/84 96 05/21/17 06:41 05/21/17 06:41 05/21/17 07:39 05/21/17 06:41 05/21/17 08:04 General appearance: Present: A&O X 3 - Head Head exam: Present: normal inspection - Eye Eye exam: Present: EOMI - Neck Neck exam general surgery: Present: normal inspection, supple, trachea midline - Respiratory Respiratory exam: Present: wheezes (More frequent compared to yesterday.) - Cardiovascular Cardiovascular exam: Present: tachycardia - GI/Abdominal GI/Abdominal exam: Present: normal bowel sounds, soft. Absent: tenderness - Extremities Exam Extremities exam: Absent: cyanotic, pedal edema - Neurological Exam Neurological exam: Present: alert, no focal deficits. Absent: facial droop, speech deficit - Skin Skin exam: Present: dry, warm Internal Medicine: Result - Labs CBC & Chem 7: 05/21/17 04:08 05/20/17 03:28 Labs: Short CBC 05/21/17 Range/Units 04:08 WBC 13.5 H (4.3-11.1) K/mcL Hgb 11.1 L (11.5-15.4) g/dL Hct 35.9 (35.3-44.9) % Plt Count 222 (140-400) K/mcL Neutrophils # 12.9 H (1.6-8.9) K/mcL - Impressions Impressions Chest CT 05/20/17 17:00 IMPRESSION: 1. There is re- demonstration of a right hilar mass, which is mildly increased in size when compared to the previous exam. 2. There continues to be evidence of nodular opacity within the right lower lobe, mainly within a peribronchovascular distribution. Again, this probably represents some combination of bronchiolitis, bronchitis, and postobstructive pneumonitis. Having said that, it appears very similar when compared to the previous exam. No increased pneumonitis is detected. 3. Enlarged mediastinal lymph nodes, increased in size when compared to the previous exam. 4. Enlarged upper abdominal lymph nodes, also increased in size. 5. Stable sclerotic lesions within the ribs, most prominently laterally within the 6th rib. 6. Stable compression fractures within the thoracic spine. D/ / Jerry Bhardwaj MD / Jerry Bhardwaj MD Interpreting Provider: Jerry Bhardwaj MD Consult Discharge Plan - Plan Instructions: Chest Pain (DC), Acute Respiratory Distress Syndrome (DC), Lung Cancer (DC), Chronic Obstructive Pulmonary Disease (DC), Sepsis (DC), Chronic Hypertension (DC), Anemia (GEN), Anxiety (DC), Pneumonia (DC), Cigarette Smoking and Your Health, Director Of Nuclear Medicine (GEN) Referrals: Ron Ward MD [Primary Care Provider] - 05/27/17 2:00 pm <Juliano Pepe - Last Filed: 05/21/17 18:08> Date of Encounter: 05/21/17 - Assessment and plan (1) Acute and chronic respiratory failure ([id number]) Current Visit: No Status: Resolved Qualifiers: Respiratory failure complication: hypoxia Qualified Code(s): J96.21 - Acute and chronic respiratory failure with hypoxia (2) COPD exacerbation Current Visit: Yes Status: Acute (3) Pneumonia Current Visit: Yes Status: Acute Assessment and plan: Pt with recurrent postobstructive pneumonia. Currently on IV abx based on BAL. Qualifiers: Pneumonia type: due to other aerobic Gram-negative bacteria Laterality: right Lung location: lower lobe of lung Qualified Code(s): J15.6 - Pneumonia due to other Gram-negative bacteria (4) Small cell lung cancer Current Visit: No Status: Chronic (5) HTN (hypertension) Current Visit: No Status: Chronic Qualifiers: Hypertension type: essential hypertension Qualified Code(s): I10 - Essential (primary) hypertension - Constitutional Vitals: Temp Pulse Resp BP Pulse Ox 98.1 F 99 17 170/88 94 05/21/17 15:27 05/21/17 15:27 05/21/17 15:42 05/21/17 15:27 05/21/17 15:42 Internal Medicine: Result - Labs CBC & Chem 7: 05/21/17 04:08 05/20/17 03:28 Labs: Short CBC 05/21/17 Range/Units 04:08 WBC 13.5 H (4.3-11.1) K/mcL Hgb 11.1 L (11.5-15.4) g/dL Hct 35.9 (35.3-44.9) % Plt Count 222 (140-400) K/mcL Neutrophils # 12.9 H (1.6-8.9) K/mcL - Attending Attestation I examined this patient and my medical decision-making was reviewed with the Resident Physician on 05/21/17. I agree with the documented findings, disposition and treatment plan as described except to the extent set forth below. Ms Keenan is currently admitted for acute on chronic resp failure and COPD. She remains moderate to severe risk due to potential for worsening clinical and respiratory status. Ms Keenan is doing OK at this time. She is still dyspneic at rest. To have radiation treatment today. She feels too weak to go home at this time. Exam Alert Mod respiratory distress Mucus membranes dry Heart reg Diffuse wheeze at this time Abd soft I/P 1. Resp failure 2. COPD 3. Lung cancer Further diagnoses and plan as above.
[2017-05-21] MEDS: *HR* LORazepam 0.5 MG TABLET PO PRN ×3 (11:11→22:19)
--- NOTE | 2017-05-21 13:27 | Oncology Inp Consult Note ---
Date of Encounter: 05/22/17 Time of Encounter: 13:26 Assessment and Plan (1) Small cell lung cancer Status: Chronic Assessment and plan: Stage IV small cell carcinoma Treatment intent:palliative She has had partial response to systemic treatment with carboplain and etoposide. She is planned to begin consolidative thoracic radiotherapy in 10 fractions starting today. She is planned to transport the the radiation suite to start therapy today. She is planned for a total of 10 radiation treatments. It is hopeful that she will benefit from radiation which will help to prevent lung collapse and potentially open additional areas of her lung. She is planned to have an MRI of the brain 4 weeks after her last MRI to make sure the [id number] abnormalities on the last scan were not early brain metastases , further discussion on role for brain radiotherapy following MRI. Additionally, prognosis and natural history of small cell lung cancer were discussed in detail at this appointment with her treating radiation oncologist. At this time, she is not interested in hospice and wishes to continue to pursue aggressive treatment options, I again verified this in meeting with Ms. Keenan today. Appreciate pulmonology recommendations which were reviewed. She is receiving bronchodilators and metered-dose inhalers along with IV solu- medrol and fluconazole (Patient was noted to have thrush during bronchoscopy last visit and grew out Kirstin from bronchial cultures). Pneumonia likely related to obstruction treating with azithromycin. Recommend she continue to follow pulmonary on outpatient basis for COPD optimization. - Data of Consult Requesting Physician: Juliano Pepe DO Primary Care Provider: Ron Ward MD - Consult Narrative Reason for consult: Stage IV small cell lung cancer History of present illness: Ms. Keenan is a 61 year old female with medical history significant for COPD, home O2 dependence, small cell lung cancer with extensive stage liver metastatic disease, on palliative chemotherapy with carboplatin and etoposide. She has had recent multiple hospitalizations since the beginning of her treatment for pneumonia and COPD exacerbation which has complicated her course of treatment. She has had recent successful bronchoscopy with balloon dilation APC and debulking on 05/09/2017 for endobronchial lesion and reported relief in her symptoms following this she was discharged home with antibiotics, nystatin and prednisone with follow-up with pulmonology. However, since then she continues to experience worsening and respiratory symptoms which she has presented to the ER for. She most recently attended follow-up appointments with Dr. Roberto in radiation oncology and Dr. Beltrán treating oncologist. She has had a partial response to chemotherapy treatment. She is planned to begin thoracic radiotherapy to prevent lung collapse and potentially open additional areas of lung for her. She is planned to have an MRI of the brain 4 weeks after her last MRI to make sure the [id number] abnormalities on the last scan were not early brain metastases. Additionally, prognosis and natural history of small cell lung cancer were discussed in detail at this appointment with her treating radiation oncologist. Past Med Surg Social Fam HX - Past Medical History Medical history: cancer, COPD, hypertension Psychiatric history: anxiety, depression - Past Surgical History Surgical History: hysterectomy - Social History Smoking Status: Former smoker Smokeless Tobacco Status: No Alcohol use: none Drug use: none - Family History Sister Family Member Ethnicity: Non- Living Status: Still Living Hx Family Cardiac Disorders: Yes (HTN) Hx Family Cancer: Yes (Lymphoma) Mother Family Member Ethnicity: Non- Living Status: Hx Family Cardiac Disorders: Yes (Aneurysm, HTN) Hx Family Respiratory Disorders: Yes (COPD) Father Adopted: No Family Member Ethnicity: Non- Living Status: Hx Family Cardiac Disorders: Yes (CHF, CAD, NV) Hx Family Respiratory Disorders: Yes (mother copd) Hx Family Cancer: No Hx Family GI Disorders: No Hx Family Endocrine Disorder: No Hx Family Neuromuscular Disorders: No Hx Family Neurologic Disorders: No Hx Family HEENT Disorders: No Hx Family Autoimmune Disorders: No Medications and Allergies DULoxetine [Cymbalta] 30 mg PO HS 02/15/16 [History] Trazodone HCl 200 mg PO HS 02/15/16 [History] Albuterol Sulfate [Albuterol Inhaler] 2 puff IH Q6H PRN 10/14/16 [History] Budesonide/Formoterol 160/4.5 [Symbicort 160/4.5] 2 puff IH BIDR 10/14/16 [ History] Oxygen 2 l NS AD 10/14/16 [History] Tiotropium [Spiriva] 18 mcg IH DAILY 10/14/16 [History] Ascorbate Calcium [Vitamin C] 500 mg PO DAILY 12/14/16 [History] Polyethylene Glycol 3350 [MiraLAX] 17 gm PO DAILY PRN #30 powd.pack 12/22/16 [Rx ] Sennosides/Docusate Sodium [Senna-Docusate Sodium Tablet] 2 each PO BID PRN #60 tablet 12/22/16 [Rx] Calcium Carbonate/Vitamin D3 [Calcium 500 + Vit D Caplet] 2 each PO DAILY #60 tablet 12/26/16 [Rx] Cholecalciferol (D-3) [Vitamin D] 5,000 unit PO DAILY 02/02/17 [History] Melatonin [Melatin] 3 mg PO HS 02/02/17 [History] LORazepam [Ativan] 0.5 mg PO BID PRN 30 Days #60 tablet 03/21/17 [Rx] OxyCODONE Immed Rel [Roxicodone 10 MG] 10 mg PO TID PRN 30 Days #90 tablet 04/22 [Rx] Albuterol Neb [Proventil Neb] 2.5 mg IH Q6H PRN 7 Days #30 vial 05/04/17 [Rx] Ipratropium/Albuterol Neb [Duoneb] 3 ml IH Q4HR 30 Days vial.neb 05/15/17 [Rx] predniSONE [PredniSONE] See Taper PO DAILY 05/18/17 [History] Amoxicillin/Clavulanate [Augmentin] 875 mg PO BID 05/19/17 [History] 3 Allergy/AdvReac Type Severity Reaction Status Date / Time No Known Allergies Allergy Verified 05/16/17 13:20 Constitutional: Present: anorexia, fatigue, weakness. Absent: chills, fever(s) , weight loss Eyes: Absent: change in vision Nose, mouth and throat: Absent: dysphagia, mouth lesions, mouth pain Cardiovascular: Absent: chest pain, irregular heart rhythm, palpitations Respiratory: Present: cough, dyspnea. Absent: hemoptysis Gastrointestinal: Absent: abdominal pain, change in bowel habits, hematemesis, hematochezia, melena, nausea, vomiting Genitourinary: Absent: dysuria, hematuria Musculoskeletal: Present: muscle weakness Integumentary: Absent: wounds Neurological: Absent: focal weakness, frequent falls, numbness, tingling Hematologic/Lymphatic: Present: as per HPI Oncology - Exam - Constitutional Vitals: Temp Pulse Resp BP Pulse Ox 98.0 F 99 17 178/95 93 05/21/17 10:43 05/21/17 10:43 05/21/17 10:45 05/21/17 10:43 05/21/17 10:45 General appearance: cooperative, no acute distress, no febrile Exam: cachectic, chronically ill appearing - Head Head exam: Present: atraumatic - ENT ENT exam: Present: mucous membranes moist - Respiratory Respiratory exam: Present: wheezes. Absent: respiratory distress - Cardiovascular Cardiovascular exam: Present: RRR, +S1, +S2 - GI/Abdominal GI/Abdominal exam: Present: normal bowel sounds, soft. Absent: tenderness - Extremities Exam Extremities exam: Present: normal inspection. Absent: calf tenderness - Neurological Exam Neurological exam: Present: alert, oriented X3, no focal deficits, strengths equal and symetr throughout - Psychiatric Psychiatric exam: Present: normal affect, normal mood - Skin Skin exam: Present: dry, intact, normal color, warm Oncology - Results Labs: Short CBC 05/21/17 Range/Units 04:08 WBC 13.5 H (4.3-11.1) K/mcL Hgb 11.1 L (11.5-15.4) g/dL Hct 35.9 (35.3-44.9) % Plt Count 222 (140-400) K/mcL Neutrophils # 12.9 H (1.6-8.9) K/mcL Consult Discharge Plan - Plan Instructions: Chest Pain (DC), Acute Respiratory Distress Syndrome (DC), Lung Cancer (DC), Chronic Obstructive Pulmonary Disease (DC), Sepsis (DC), Chronic Hypertension (DC), Anemia (GEN), Anxiety (DC), Pneumonia (DC), Cigarette Smoking and Your Health, Explosive Operator Bomb (GEN) Referrals: Ron Ward MD [Primary Care Provider] - 05/27/17 2:00 pm
[2017-05-21] MEDS ORDERED: hydrALAZINE 10 MG TABLET PO PRN (16:00)
[2017-05-21] MEDS: traZODone 50 MG TABLET PO SCH (19:45)
[2017-05-21] MEDS: Melatonin 3 MG TABLET PO SCH (19:45)
[2017-05-22] MEDS: MethylPREDNISolone 40 MG/ML VIAL IVP SCH ×4 (00:14→17:36)
[2017-05-22] MEDS: Ipratropium/Albuterol Neb 3 ML IH SCH ×6 (00:34→20:17)
[2017-05-22] MEDS: Azithromycin 500 MG in D5% in Water 250 ML IVPB SCH (02:26)
[2017-05-22] MEDS: *HR* Heparin 5,000 UNIT/ML VIAL SQ SCH ×2 (06:06→20:21)
[2017-05-22 06:37] LABS: Basophils % 0.1 %; Hematocrit 35.2 % (35.3-44.9); Immature Granulocytes % 0.9 % (0-4); Lymphocytes # 0.4 K/mcL (0.6-4.6); Lymphocytes % 3.2 %; Mean Corpuscular HGB Conc 31.3 g/dL (31.6-35.5); Mean Corpuscular Hemoglobin 29.1 pg (28.0-33.3); Mean Corpuscular Volume 93.1 fL (83.0-100.0); Mean Platelet Volume 9.7 fL (9.4-12.4); Monocytes # 0.3 K/mcL (0.0-1.3); Monocytes % 2.6 %; Neutrophils # 11.3 K/mcL (1.6-8.9); Platelet Count 219 K/mcL (140-400); Red Blood Count 3.78 M/mcL (3.82-4.97); Red Cell Distribution Width 15.2 % (11.5-14.5); Segmented Neutrophils % 93.2 %
[2017-05-22 07:06] LABS: BUN/Creatinine Ratio 33 (6-26); Blood Urea Nitrogen 20 mg/dL (8-23); Calcium 8.5 mg/dL (8.6-10.3); Carbon Dioxide 34 mEq/L (23-29); Chloride 103 mEq/L (98-107); Glucose 155 mg/dL (70-105); Osmolality,Calculated 298 (280-300); Potassium 4.4 mEq/L (3.5-5.1); Sodium 141 mEq/L (136-145); eGFR For African Americans > 60 (> 60); eGFR For Non-African Americans > 60 (> 60)
[2017-05-22] MEDS: Tiotropium 18 MCG inhalation IH SCH (07:22)
[2017-05-22] MEDS: Budesonide/Formoterol 160/4.5 MDI IH SCH ×2 (07:24→20:17)
[2017-05-22] MEDS: Fluconazole 400 MG/200 ML 400 MG/200 ML BAG IVPB SCH (08:32)
[2017-05-22] MEDS: Cholecalciferol (D-3) 1,000 UNIT TABLET PO SCH (08:33)
[2017-05-22] MEDS: *HR* LORazepam 0.5 MG TABLET PO PRN ×3 (08:34→20:20)
[2017-05-22] MEDS: Nicotine 14 MG PATCH.TD24 TD SCH (08:34)
[2017-05-22] MEDS: Insulin LISPRO 300 UNITS/3 ML VIAL SQ SCH ×4 (08:36→20:21)
[2017-05-22] MEDS: *HR* OxyCODONE Immed Rel 5 MG TABLET PO PRN ×3 (08:36→20:20)
[2017-05-22] MEDS: Ascorbic Acid 500 MG TABLET PO SCH (08:48)
--- NOTE | 2017-05-22 10:32 | Internal Med Progress Note ---
<Anatoly Parish - Last Filed: 05/22/17 16:56> Date of Encounter: 05/22/17 Time of Encounter: 10:00 - Assessment and plan (1) Acute and chronic respiratory failure Current Visit: No Status: Resolved Assessment and plan: - Likely multifactorial including post-obstructive pneumonia (? fungal), AE COPD , possible lymphangitic carcinomatosis. - Stable as patient maintains O2 sat above 92% on 2L NC. - Continue azithromycin (Day 4) and fluconazole (Day 4) for pneumonia. Plan to treat for total 5-7 days. - Continue IV steroid, bronchodilators and supplemental oxygen for COPD. - Status post first radiation therapy on 05/21/17 for her right lung mass. - Pulmonology on board and appreciate further recommendation. - Continue to monitor closely. Possible discharge tomorrow if patient's respiratory status continues to improve. Qualifiers: Respiratory failure complication: hypoxia Qualified Code(s): J96.21 - Acute and chronic respiratory failure with hypoxia (2) Postobstructive pneumonia Current Visit: Yes Status: Acute Assessment and plan: - Right Lower lobe lung BAL culture from 05/08/17 grew Kirstin albicans. - Continue azithromycin (Day 4) and fluconazole (Day 4) for pneumonia. Plan to treat for total 5-7 days. (3) Small cell lung cancer Current Visit: No Status: Chronic Assessment and plan: - Chest CT on 05/20/17 showd a right hilar mass which is mildly increased in size compared to the previous exam. - Status post first radiation therapy at [facility] on 05/21/17. (4) Acute exacerbation of chronic obstructive airways disease Current Visit: No Status: Acute Assessment and plan: - Continue IV steroid, bronchodilators and supplemental oxygen for COPD. (5) HTN (hypertension) Current Visit: No Status: Chronic Assessment and plan: - Continue to have high blood pressure. - Will increase Coreg to 12.5 mg PO BID and continue hydralazine prn SBP > 160. Qualifiers: Hypertension type: essential hypertension Qualified Code(s): I10 - Essential (primary) hypertension (6) DVT prophylaxis Current Visit: No Status: Acute Assessment and plan: - Continue SQ heparin. - Subjective Interval history: Patient was seen and examined this morning. Patient still has some non- productive cough and feel her breathing worse compared to yesterday. Patient is open to go to facility. Patient denies chest pain, fever, chills. - Constitutional Vitals: Temp Pulse Resp BP Pulse Ox 98.2 F 90 16 157/94 93 05/22/17 06:51 05/22/17 06:51 05/22/17 07:26 05/22/17 06:51 05/22/17 07:26 General appearance: Present: A&O X 3 - Head Head exam: Present: normal inspection - Eye Eye exam: Present: EOMI - Neck Neck exam general surgery: Present: normal inspection, trachea midline - Respiratory Respiratory exam: Present: wheezes - Cardiovascular Cardiovascular exam: Present: RRR, +S1, +S2 - GI/Abdominal GI/Abdominal exam: Present: normal bowel sounds, soft. Absent: tenderness - Extremities Exam Extremities exam: Absent: cyanotic, pedal edema - Neurological Exam Neurological exam: Present: alert, no focal deficits. Absent: facial droop, speech deficit - Skin Skin exam: Present: dry, warm Internal Medicine: Result - Labs CBC & Chem 7: 05/22/17 05:50 05/22/17 05:50 Labs: Short CBC 05/22/17 Range/Units 05:50 WBC 12.1 H (4.3-11.1) K/mcL Hgb 11.0 L (11.5-15.4) g/dL Hct 35.2 L (35.3-44.9) % Plt Count 219 (140-400) K/mcL Neutrophils # 11.3 H (1.6-8.9) K/mcL BMP 05/22/17 05:50 Sodium 141 Potassium 4.4 Chloride 103 Carbon Dioxide 34 H BUN 20 Creatinine 0.60 Glucose 155 H Calcium 8.5 L - Impressions Impressions Chest X-Ray 05/22/17 09:46 IMPRESSION: Right lower lung airspace opacity has not significantly changed. 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) Referrals: Ron Ward MD [Primary Care Provider] - 05/27/17 2:00 pm <Juliano Pepe - Last Filed: 05/22/17 17:42> Date of Encounter: 05/22/17 - Assessment and plan (1) Acute and chronic respiratory failure ([id number]) Current Visit: No Status: Resolved Qualifiers: Respiratory failure complication: hypoxia Qualified Code(s): J96.21 - Acute and chronic respiratory failure with hypoxia (2) COPD exacerbation Current Visit: Yes Status: Acute (3) Pneumonia Current Visit: Yes Status: Acute Qualifiers: Pneumonia type: due to other aerobic Gram-negative bacteria Laterality: right Lung location: lower lobe of lung Qualified Code(s): J15.6 - Pneumonia due to other Gram-negative bacteria (4) Small cell lung cancer Current Visit: No Status: Chronic (5) HTN (hypertension) Current Visit: No Status: Chronic Qualifiers: Hypertension type: essential hypertension Qualified Code(s): I10 - Essential (primary) hypertension - Constitutional Vitals: Temp Pulse Resp BP Pulse Ox 97.9 F 101 16 172/109 97 05/22/17 15:46 05/22/17 15:46 05/22/17 16:02 05/22/17 15:46 05/22/17 16:02 Internal Medicine: Result - Labs CBC & Chem 7: 05/22/17 05:50 05/22/17 05:50 Labs: Short CBC 05/22/17 Range/Units 05:50 WBC 12.1 H (4.3-11.1) K/mcL Hgb 11.0 L (11.5-15.4) g/dL Hct 35.2 L (35.3-44.9) % Plt Count 219 (140-400) K/mcL Neutrophils # 11.3 H (1.6-8.9) K/mcL BMP 05/22/17 05:50 Sodium 141 Potassium 4.4 Chloride 103 Carbon Dioxide 34 H BUN 20 Creatinine 0.60 Glucose 155 H Calcium 8.5 L - Impressions Impressions Chest X-Ray 05/22/17 09:46 IMPRESSION: Right lower lung airspace opacity has not significantly changed. D/ 05/22/2017 10:36:24 Vishal Burris MD / ang Interpreting Provider: Vishal Burris MD - Attending Attestation I examined this patient and my medical decision-making was reviewed with the Resident Physician on 05/22/17. I agree with the documented findings, disposition and treatment plan as described except to the extent set forth below. Ms Keenan is currently admitted for acute exac COPD and pneumonia. She remains moderate to high risk due to potential for worsening clinical and respiratory status. Ms Keenan is seems to be more dyspneic today. Tolerated radiation. at bedside. His questions were answered. Blood pressure has been more elevated today. Meds adjusted. Lasix given once. Exam Alert Moderate resp distress Mucus membranes dry Heart reg Lungs with diffuse end exp wheeze Abd soft I/P 1. Resp failure 2. PNA Further diagnoses and plan as above. Anticipate discharge tomorrow.
[2017-05-22] MEDS: hydrALAZINE 25 MG TABLET PO SCH ×2 (12:18→19:14)
[2017-05-22] MEDS ORDERED: Furosemide 20 MG/2 ML VIAL IVP ONE (15:59)
[2017-05-22] MEDS: Melatonin 3 MG TABLET PO SCH (20:20)
[2017-05-22] MEDS: traZODone 50 MG TABLET PO SCH (20:20)
[2017-05-23] MEDS: Ipratropium/Albuterol Neb 3 ML IH SCH ×4 (00:05→11:24)
[2017-05-23] MEDS: hydrALAZINE 25 MG TABLET PO SCH ×2 (01:20→08:57)
[2017-05-23] MEDS: MethylPREDNISolone 40 MG/ML VIAL IVP SCH (06:06)
[2017-05-23] MEDS: *HR* Heparin 5,000 UNIT/ML VIAL SQ SCH (06:26)
[2017-05-23] MEDS: Budesonide/Formoterol 160/4.5 MDI IH SCH (07:57)
[2017-05-23] MEDS: Tiotropium 18 MCG inhalation IH SCH (08:11)
--- NOTE | 2017-05-23 08:31 | Discharge Summary ---
<Anatoly Parish - Last Filed: 05/23/17 17:36> Orders not resulted at time of discharge: Pending orders 05/18/17 23:39 Culture,Sputum with Gram Stain [RM] Routine Date of Encounter: 05/23/17 Time of Encounter: 07:45 - Discharge Diagnosis (1) Acute and chronic respiratory failure Priority: Primary Status: Resolved Qualifiers: Respiratory failure complication: hypoxia Qualified Code(s): J96.21 - Acute and chronic respiratory failure with hypoxia (2) Postobstructive pneumonia Priority: Primary Status: Acute (3) Small cell lung cancer Priority: Primary Status: Chronic (4) Acute exacerbation of chronic obstructive airways disease Priority: Primary Status: Acute (5) HTN (hypertension) Priority: Secondary Status: Chronic Qualifiers: Hypertension type: essential hypertension Qualified Code(s): I10 - Essential (primary) hypertension Hospital course: Ms. Keenan is a 61 year old female with PMH of small cell lung cancer s/p chemotherapy, COPD and recurrent hospitalizations for likely postobstructive pneumonia. Patient presented with complaint of worsening shortness of breath and was admitted on 05/18/17 for acute on chronic respiratory failure secondary to COPD exacerbation, postobstructive pneumonia and right lower lung cancer. Patient was started on IV Solu-Medrol, IV azithromycin, bronchodilators and supplemental oxygen Given patient's recurrent re-admissions despite of being discharged home with steroid will and antibiotic, IV fluconazole was also added as prior right lower lung BAL culture from 05/08/17 grew Kirstin albicans. Pulmonology was consulted and the goal is to ensure patient getting her first radiation therapy which patient did get on 05/21/17. Patient's respiratory status improves since admission as patient finishes 5-day course of azithromycin and fluconazole. Given patient improves clinically and remains hemodynamically stable, patient can be discharged to [facility] with prolonged prednisone taper (40 mg x 1 week, 35 mg x 1 week, 30 mg x 1 week, 25 mg x 1 week, 20 mg x 1 week, 15 mg x 1 week, 10 mg x 1 week, and finally 5 mg x 1 week). Patient can use prescribed Mucinex 600 mg oral twice a day as needed for chest congestion. Patient should continue prescribed carvedilol 12.5 mg oral twice a day and hydralazine 25 mg oral every 6 hours for her hypertension. Patient will need follow-up with her primary care physician within a week. Patient will likely also need follow-up with oncology and pulmonology. Patient expressed her understanding and agreement with the discharge plan. All questions were answered. Discharge discussed with: patient - Time Spent with Patient Total time spent providing and/or coordinating discharge services: Greater than 30 minutes (40 minutes) - Discharge Medications Prescriptions: hydrALAZINE [HydrALAZINE] 25 mg PO Q8HR #90 tablet Carvedilol 12.5 mg PO BID #60 tab GuaiFENesin ER [Mucinex] 600 mg PO BID #60 tbbp.12hr LORazepam [Ativan] 0.5 mg PO BID PRN 7 Days #14 tablet PRN Reason: Anxiety OxyCODONE Immed Rel [Roxicodone 10 MG] 10 mg PO TID PRN 7 Days #21 tablet PRN Reason: Pain predniSONE [PredniSONE] See Taper PO DAILY #126 tablet Home Medications: DULoxetine [Cymbalta] 30 mg PO HS 02/15/16 [History] Trazodone HCl 200 mg PO HS 02/15/16 [History] Albuterol Sulfate [Albuterol Inhaler] 2 puff IH Q6H PRN 10/14/16 [History] Budesonide/Formoterol 160/4.5 [Symbicort 160/4.5] 2 puff IH BIDR 10/14/16 [ History] Oxygen 2 l NS AD 10/14/16 [History] Tiotropium [Spiriva] 18 mcg IH DAILY 10/14/16 [History] Ascorbate Calcium [Vitamin C] 500 mg PO DAILY 12/14/16 [History] Polyethylene Glycol 3350 [MiraLAX] 17 gm PO DAILY PRN #30 powd.pack 12/22/16 [Rx ] Sennosides/Docusate Sodium [Senna-Docusate Sodium Tablet] 2 each PO BID PRN #60 tablet 12/22/16 [Rx] Calcium Carbonate/Vitamin D3 [Calcium 500 + Vit D Caplet] 2 each PO DAILY #60 tablet 12/26/16 [Rx] Cholecalciferol (D-3) [Vitamin D] 5,000 unit PO DAILY 02/02/17 [History] Melatonin [Melatin] 3 mg PO HS 02/02/17 [History] Albuterol Neb [Proventil Neb] 2.5 mg IH Q6H PRN 7 Days #30 vial 05/04/17 [Rx] Ipratropium/Albuterol Neb [Duoneb] 3 ml IH Q4HR 30 Days vial.neb 05/15/17 [Rx] Carvedilol 12.5 mg PO BID #60 tab 05/23/17 [Rx] GuaiFENesin ER [Mucinex] 600 mg PO BID #60 tbbp.12hr 05/23/17 [Rx] LORazepam [Ativan] 0.5 mg PO BID PRN 7 Days #14 tablet 05/23/17 [Rx] OxyCODONE Immed Rel [Roxicodone 10 MG] 10 mg PO TID PRN 7 Days #21 tablet [Rx] hydrALAZINE [HydrALAZINE] 25 mg PO Q8HR #90 tablet 05/23/17 [Rx] predniSONE [PredniSONE] See Taper PO DAILY #126 tablet 05/23/17 [Rx] Allergies/Adverse Reactions: 3 Allergy/AdvReac Type Severity Reaction Status Date / Time No Known Allergies Allergy Verified 05/16/17 13:20 Date of admission: 05/18/17 21:19 Primary care physician: Ron Ward MD Consults: 05/18/17 23:39 Consult to Nurse Navigator [CONS] Routine Comment: 05/19/17 18:57 Consult to Oncology [CONS] Routine Consulting Provider: [facility] Reason for Consult: Hx of small cell lung CA; is supposed to initiate MCAB therapy soon Call Completed: No 05/20/17 09:00 Consult to Pulmonology [CONS] Routine Consulting Provider: [facility] Reason for Consult: 61 F PMH of lung cancer having 5 admissions for shortness of breath this month despite of being discharged home with steroid and antibiotics. BAL from prior bronchoscopy grew Kirstin albicans. Currently on Solu-Medrol, bronchodilators, azithromycin and fluconazole. Respiratory status improved per pt. Appreciate pulmonology recommendation. Call Completed: Yes 05/20/17 13:11 Consult to Twister Tender Paper [CONS] Routine Reason for SW Consult: CURRENT [facility] WANT[facility] SOCIAL WORK TO CALL THEM RE: UNABLE TO ACCEPT PATIENT BACK TO THEIR SERVICE AT DISCHARGE DUE TO FREQUENT READMISSOINS 05/20/17 13:59 Consult to Physical Therapy [CONS] Routine Comment: Evaluate, develop and implement POC Reason for Consult: ASSESS FOR POTENTIAL SWING/INPATIENT REHAB UPON DISCHARGE Does patient have active BEDREST order?: No Is patient medically & hemodynamically stable?: Yes Patient assessed for mobility or mobilized this visit?: Yes Consult to Twister Tender Paper [CONS] Routine Reason for SW Consult: ASSESS FOR POTENTIAL DISCHARGE TO SWING BED/INPATIENT REHAB Discharging clinician: Anatoly Parish Anticipated date of discharge: 05/23/17 - Constitutional Vitals: Temp Pulse Resp BP Pulse Ox 98 F 98 16 140/94 97 05/23/17 07:00 05/23/17 07:00 05/23/17 07:57 05/23/17 07:00 05/23/17 07:57 General appearance: Present: A&O X 3 - Head Head exam: Present: normal inspection - Eye Eye exam: Present: EOMI - Neck Neck exam general surgery: Present: normal inspection, trachea midline - Respiratory Respiratory exam: Present: wheezes (few, improves compared to yesterday) - Cardiovascular Cardiovascular exam: Present: RRR, +S1, +S2 - GI/Abdominal GI/Abdominal exam: Present: normal bowel sounds, soft. Absent: tenderness - Extremities Exam Extremities exam: Absent: cyanotic, pedal edema - Neurological Exam Neurological exam: Present: alert, no focal deficits. Absent: facial droop, speech deficit - Skin Skin exam: Present: dry, warm - Patient Status Disposition: Transfer SNF Condition: Good Functional capacity at discharge: independent ambulation - Discharge Instructions Instructions: Chest Pain (DC), Acute Respiratory Distress Syndrome (DC), Lung Cancer (DC), Chronic Obstructive Pulmonary Disease (DC), Sepsis (DC), Chronic Hypertension (DC), Anemia (GEN), Anxiety (DC), Pneumonia (DC), Cigarette Smoking and Your Health, [employer] (GEN) Follow Up With: Ron Ward MD [Primary Care Provider] - 05/27/17 2:00 pm Linda Bird MD [Partnered Physician] - 06/14/17 10:20 am Additional Instructions: Please take prescribed prednisone taper (40 mg x 1 week, 35 mg x 1 week, 30 mg x 1 week, 25 mg x 1 week, 20 mg x 1 week, 15 mg x 1 week, 10 mg x 1 week, and finally 5 mg x 1 week. Please take prescribed carvedilol 12.5 mg oral twice a day and hydralazine 25 mg oral every 6 hours for your high blood pressure. You can use prescribed Mucinex 600 mg oral twice a day as needed for your chest congestion Please follow up with your primary care physician within a week. - Diet and Activity Activity: increase activity as tolerated Diet: low fat, low cholesterol <Juliano Pepe - Last Filed: 05/23/17 18:30> Orders not resulted at time of discharge: Pending orders 05/18/17 23:39 Culture,Sputum with Gram Stain [RM] Routine Date of Encounter: 05/23/17 - Discharge Diagnosis (1) Acute and chronic respiratory failure ([id number]) Priority: Primary Status: Resolved Qualifiers: Respiratory failure complication: hypoxia Qualified Code(s): J96.21 - Acute and chronic respiratory failure with hypoxia (2) COPD exacerbation Priority: Primary Status: Resolved (3) Pneumonia Priority: Primary Status: Resolved Qualifiers: Pneumonia type: due to other aerobic Gram-negative bacteria Laterality: right Lung location: lower lobe of lung Qualified Code(s): J15.6 - Pneumonia due to other Gram-negative bacteria (4) Small cell lung cancer Status: Chronic (5) HTN (hypertension) Status: Chronic Qualifiers: Hypertension type: essential hypertension Qualified Code(s): I10 - Essential (primary) hypertension Hospital course: Ms. Keenan is a 61 year old female - Time Spent with Patient Total time spent providing and/or coordinating discharge services: 41min Date of admission: 05/18/17 21:19 Primary care physician: Ron Ward MD Consults: 05/18/17 23:39 Consult to Nurse Navigator [CONS] Routine Comment: 05/19/17 18:57 Consult to Oncology [CONS] Routine Consulting Provider: [facility] Reason for Consult: Hx of small cell lung CA; is supposed to initiate MCAB therapy soon Call Completed: No 05/20/17 09:00 Consult to Pulmonology [CONS] Routine Consulting Provider: [facility] Reason for Consult: 61 F PMH of lung cancer having 5 admissions for shortness of breath this month despite of being discharged home with steroid and antibiotics. BAL from prior bronchoscopy grew Kirstin albicans. Currently on Solu-Medrol, bronchodilators, azithromycin and fluconazole. Respiratory status improved per pt. Appreciate pulmonology recommendation. Call Completed: Yes 05/20/17 13:11 Consult to Twister Tender Paper [CONS] Routine Reason for SW Consult: CURRENT [facility] WANTS SOCIAL WORK TO CALL THEM RE: UNABLE TO ACCEPT PATIENT BACK TO THEIR SERVICE AT DISCHARGE DUE TO FREQUENT READMISSOINS 05/20/17 13:59 Consult to Physical Therapy [CONS] Routine Comment: Evaluate, develop and implement POC Reason for Consult: ASSESS FOR POTENTIAL SWING/INPATIENT REHAB UPON DISCHARGE Does patient have active BEDREST order?: No Is patient medically & hemodynamically stable?: Yes Patient assessed for mobility or mobilized this visit?: Yes Consult to Twister Tender Paper [CONS] Routine Reason for SW Consult: ASSESS FOR POTENTIAL DISCHARGE TO SWING BED/INPATIENT REHAB - Constitutional Vitals: Temp Pulse Resp BP Pulse Ox 97.8 F 79 16 130/85 97 05/23/17 11:00 05/23/17 11:00 05/23/17 14:26 05/23/17 13:52 05/23/17 14:26 - Attending Attestation I examined this patient and my medical decision-making was reviewed with the Resident Physician on 05/23/17. I agree with the documented findings, disposition and treatment plan as described except to the extent set forth below. Ms Keenan has been in observation for acute resp failure. She has started radiation therapy. She is afebrile today. She overall seems to be doing better and is agreeable to rehab. She is to be discharged to SNF today Exam Alert Comfortable at this time. Mucus membranes dry Heart reg Diffuse wheeze but overall seems clearer. Abd soft Plan D/C to SNF today.
[2017-05-23] MEDS: Insulin LISPRO 300 UNITS/3 ML VIAL SQ SCH ×2 (08:56→11:51)
[2017-05-23] MEDS: Cholecalciferol (D-3) 1,000 UNIT TABLET PO SCH (08:56)
[2017-05-23] MEDS: Nicotine 14 MG PATCH.TD24 TD SCH (08:57)
[2017-05-23] MEDS: Ascorbic Acid 500 MG TABLET PO SCH (08:57)
[2017-05-23] MEDS ORDERED: Fluconazole 100 MG TABLET PO SCH (09:00)
[2017-05-23] MEDS ORDERED: Azithromycin 250 MG TABLET PO SCH (09:00)
[2017-05-23] MEDS: *HR* OxyCODONE Immed Rel 5 MG TABLET PO PRN (09:04)
[2017-05-23] MEDS: *HR* LORazepam 0.5 MG TABLET PO PRN (11:06)
--- NOTE | 2017-05-23 11:41 | Physician Discharge Referral ---
ExtendedCare Referral Info Transfer To: [facility] Provider in Charge after Transfer: PCP Institutional Level of Care: Skilled - Diagnosis (1) Acute and chronic respiratory failure Priority: Primary Status: Resolved (2) Postobstructive pneumonia Priority: Primary Status: Acute (3) Small cell lung cancer Priority: Primary Status: Chronic (4) Acute exacerbation of chronic obstructive airways disease Priority: Secondary Status: Acute (5) HTN (hypertension) Priority: Secondary Status: Chronic - Transfer Medications Prescriptions: hydrALAZINE [HydrALAZINE] 25 mg PO Q8HR #90 tablet Carvedilol 12.5 mg PO BID #60 tab GuaiFENesin ER [Mucinex] 600 mg PO BID #60 tbbp.12hr LORazepam [Ativan] 0.5 mg PO BID PRN 7 Days #14 tablet PRN Reason: Anxiety OxyCODONE Immed Rel [Roxicodone 10 MG] 10 mg PO TID PRN 7 Days #21 tablet PRN Reason: Pain predniSONE [PredniSONE] See Taper PO DAILY #126 tablet Home Medications: DULoxetine [Cymbalta] 30 mg PO HS 02/15/16 [History] Trazodone HCl 200 mg PO HS 02/15/16 [History] Albuterol Sulfate [Albuterol Inhaler] 2 puff IH Q6H PRN 10/14/16 [History] Budesonide/Formoterol 160/4.5 [Symbicort 160/4.5] 2 puff IH BIDR 10/14/16 [ History] Oxygen 2 l NS AD 10/14/16 [History] Tiotropium [Spiriva] 18 mcg IH DAILY 10/14/16 [History] Ascorbate Calcium [Vitamin C] 500 mg PO DAILY 12/14/16 [History] Polyethylene Glycol 3350 [MiraLAX] 17 gm PO DAILY PRN #30 powd.pack 12/22/16 [Rx ] Sennosides/Docusate Sodium [Senna-Docusate Sodium Tablet] 2 each PO BID PRN #60 tablet 12/22/16 [Rx] Calcium Carbonate/Vitamin D3 [Calcium 500 + Vit D Caplet] 2 each PO DAILY #60 tablet 12/26/16 [Rx] Cholecalciferol (D-3) [Vitamin D] 5,000 unit PO DAILY 02/02/17 [History] Melatonin [Melatin] 3 mg PO HS 02/02/17 [History] Albuterol Neb [Proventil Neb] 2.5 mg IH Q6H PRN 7 Days #30 vial 05/04/17 [Rx] Ipratropium/Albuterol Neb [Duoneb] 3 ml IH Q4HR 30 Days vial.neb 05/15/17 [Rx] Carvedilol 12.5 mg PO BID #60 tab 05/23/17 [Rx] GuaiFENesin ER [Mucinex] 600 mg PO BID #60 tbbp.12hr 05/23/17 [Rx] LORazepam [Ativan] 0.5 mg PO BID PRN 7 Days #14 tablet 05/23/17 [Rx] OxyCODONE Immed Rel [Roxicodone 10 MG] 10 mg PO TID PRN 7 Days #21 tablet [Rx] hydrALAZINE [HydrALAZINE] 25 mg PO Q8HR #90 tablet 05/23/17 [Rx] predniSONE [PredniSONE] See Taper PO DAILY #126 tablet 05/23/17 [Rx] Allergies/Adverse Reactions: 3 Allergy/AdvReac Type Severity Reaction Status Date / Time No Known Allergies Allergy Verified 05/16/17 13:20 - Respiratory Orders Oxygen / L per min (4L) Smoking Cessation: Smoking cessation has been advised. For more information, call the [place] Tobacco Quit Line at 2-212-DRLO-NOW. - Mobility Orders Ambulate - Diet Orders Cardiac CERTIFICATION: I certify that the transfer of the above named patient to an Extended Care Facility is necessary for the continuing treatment of the diagnosis listed. The above information is true and accurate reflection of patient's current condition. Confidential - Redisclosure prohibited without a patient's written consent.
[2017-05-23 13:52] VITALS: BP 130/85
[2017-05-23] MEDS ORDERED: predniSONE 20 MG TABLET PO ONE (13:55)
[2017-05-23] MEDS: Albuterol 2.5 MG/3 ML NEBULIZER IH PRN (14:26)
== END 2017-05-23 14:33 ==
LOC: 2NENU 17:33 → EMEROO 17:33 → SUATTDRO 21:19 → 2NENU 22:05
PROVIDERS: ADMIT Internal Medicine; ATTEND Internal Medicine

== ENCOUNTER 2017-05-25 18:23 | Inpatient (IN) ==
--- NOTE | 2017-05-25 18:28 | Emergency Department Note ---
START Narrative - START START: START NOTE: Patient evaluated upon arrival to the medical treatment area by EMS from home. She has a known history of COPD. She appears visibly dyspneic on exam. I will initiate duoneb and steroid therapy and further care will be undertaken by the oncoming physician
[2017-05-25] MEDS ORDERED: Ipratropium/Albuterol Neb 3 ML IH ONE (18:29)
[2017-05-25] MEDS ORDERED: methylPREDNISolone 125 MG/2 ML VIAL IVP ONE (18:29)
--- NOTE | 2017-05-25 18:52 | Emergency Department Note ---
Disposition Clinical Impression: HCAP (healthcare-associated pneumonia), SOB (shortness of breath), Small cell lung cancer, right lower lobe, Respiratory alkalosis, COPD exacerbation Sepsis Qualifiers: Sepsis type: sepsis due to unspecified organism Qualified Code(s): A41.9 - Sepsis, unspecified organism Disposition: Admitted As Inpatient Condition: Serious Time of Disposition: 20:34 SOB HPI - General Chief Complaint: ED Shortness of Breath/Dyspnea Stated Complaint: NOHELIA Time Seen by Provider: 05/25/17 18:25 Source: EMS Limitations: no limitations Nursing Notes Reviewed: Yes Vital Signs Reviewed: Yes - History of Present Illness Patient is a 61-year-old female comes in with shortness of breath has been getting worse over the past 3 days. Patient has a history of COPD, possible lung carcinoma and recent discharge from inpatient care for COPD exacerbation with pneumonia. She denies any chest pain or chest tightness. She has not increased her home O2 usage but 2 L has not been helping her. Patient had a first radiation treatment on May for her small cell carcinoma - Related Data Home Medications Medication Instructions Recorded Confirmed DULoxetine [Cymbalta] 30 mg PO HS 02/15/16 05/19/17 Trazodone HCl 200 mg PO HS 02/15/16 05/19/17 Albuterol Sulfate [Albuterol 2 puff IH Q6H PRN 10/14/16 05/19/17 Inhaler] Budesonide/Formoterol 160/4.5 2 puff IH BIDR 10/14/16 05/19/17 [Symbicort 160/4.5] Oxygen 2 l NS AD 10/14/16 05/19/17 Tiotropium [Spiriva] 18 mcg IH DAILY 10/14/16 05/19/17 Ascorbate Calcium [Vitamin C] 500 mg PO DAILY 12/14/16 05/19/17 Cholecalciferol (D-3) [Vitamin D] 5,000 unit PO DAILY 02/02/17 05/19/17 Melatonin [Melatin] 3 mg PO HS 02/02/17 05/19/17 Previous Rx's Medication Instructions Recorded Polyethylene Glycol 3350 [MiraLAX] 17 gm PO DAILY PRN #30 powd.pack 12/22/16 Sennosides/Docusate Sodium 2 each PO BID PRN #60 tablet 12/22/16 [Senna-Docusate Sodium Tablet] Calcium Carbonate/Vitamin D3 2 each PO DAILY #60 tablet 12/26/16 [Calcium 500 + Vit D Caplet] Albuterol Neb [Proventil Neb] 2.5 mg IH Q6H PRN 7 Days #30 vial 05/04/17 Ipratropium/Albuterol Neb [Duoneb] 3 ml IH Q4HR 30 Days vial.neb 05/15/17 Carvedilol 12.5 mg PO BID #60 tab 05/23/17 GuaiFENesin ER [Mucinex] 600 mg PO BID #60 tbbp.12hr 05/23/17 LORazepam [Ativan] 0.5 mg PO BID PRN 7 Days #14 tablet 05/23/17 OxyCODONE Immed Rel [Roxicodone 10 10 mg PO TID PRN 7 Days #21 tablet 05/23/17 MG] hydrALAZINE [HydrALAZINE] 25 mg PO Q8HR #90 tablet 05/23/17 predniSONE [PredniSONE] See Taper PO DAILY #126 tablet 05/23/17 Allergies Allergy/AdvReac Type Severity Reaction Status Date / Time No Known Allergies Allergy Verified 05/16/17 13:20 All systems ED: reviewed and negative except as stated. Review of Systems: As Per HPI Constitutional: Reports: weakness. Denies: fever, chills ENT ED: Reports: congestion Cardiovascular: Denies: chest pain, palpitations Respiratory: Reports: cough, dyspnea Gastrointestinal: Denies: abdominal pain, nausea, vomiting Genitourinary: Denies: urgency Past Medical History - Past Medical History Attestation: Yes The following information was validated with the patient. 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 - Social History Smoking Status: Current every day smoker Smokeless Tobacco Status: No Alcohol use: Reports: none Drug use: Reports: none Physical Exam Vital Signs Temperature 97.9 F 05/25/17 18:24 Pulse Rate 96 05/25/17 18:24 Respiratory Rate 24 05/25/17 18:24 Blood Pressure 128/84 05/25/17 18:24 O2 Sat by Pulse Oximetry 97 05/25/17 18:24 Temperature 97.9 F 05/25/17 18:24 Pulse Rate 96 05/25/17 18:24 Respiratory Rate 24 05/25/17 18:51 Blood Pressure 128/84 05/25/17 18:24 O2 Sat by Pulse Oximetry 97 05/25/17 18:51 Oxygen Delivery Oxygen Delivery Nasal Cannula CONSTITUTIONAL: Very thin cachectic small frame 61-year-old female who is tachypneic and has conversational dyspnea having to take a breath after 2-3 words; A&O X 3, in no apparent distress HEAD: Normocephalic; atraumatic EYES: PERRL, no scleral icterus NOSE: The nose is normal in appearance without rhinorrhea NECK: No JVD or distended neck veins RESP: Shallow chest excursion with respiration; breath sounds with bilateral wheezing but worse in right lower lung field CARD: Regular rhythm, without murmurs, rub or gallop ABD: Non-distended; non-tender, soft, without rigidity, rebound or guarding,no pulsatile mass CHEST: No pain with palpation SKIN: Normal for age and race; warm and dry without diaphoresis ; no apparent lesions EXTREMITIES: Pulses are 2 plus and equal times 4 extremities, no peripheral edema or calf muscle pain - General Limitations: no limitations General appearance: alert, in no apparent distress Course - Reevaluation(s) Reevaluation #1: DuoNeb's are being administered Time: 18:57 Reevaluation #2: Patient elevated white count 16.5 L makes SIRS positive with a source of infection or sepsis. Patient patient will be receiving IV normal saline aliquots of 500 mL to prevent fluid overload and worsening patient's respiratory system. All other labs and cultures have been initiated, and patient's being started on Vanc and Zosyn Time: 19:25 Reevaluation #3: Patient's lab work shows increasing WBC 16.5 from 12.1 on April 21. Patient still has some mild wheezing. Albuterol ordered 2 via neb, patient states she is in pain from having stress fractures or spine and given 25 mcg fentanyl for her 8/10 pain Time: 19:49 - Consultations Consultation #1: Dr. Horvath the hospitalist as accepted patient for admission. Time: 20:34 Vital Signs Temperature 97.9 F 05/25/17 18:24 Pulse Rate 96 05/25/17 18:24 Respiratory Rate 24 05/25/17 18:24 Blood Pressure 128/84 05/25/17 18:24 O2 Sat by Pulse Oximetry 97 05/25/17 18:24 Temperature 97.8 F 05/25/17 21:43 Pulse Rate 87 05/25/17 21:43 Respiratory Rate 18 05/25/17 21:43 Blood Pressure 117/68 05/25/17 21:43 O2 Sat by Pulse Oximetry 95 05/25/17 21:43 Oxygen Delivery Oxygen Delivery Nasal Cannula Shortness of Breath/Dyspnea - MDM Narrative Medical decision making narrative: Patient presents with COPD exacerbation underlying pneumonia and is SIRS positive for tachypnea and elevated white count 16.5 which is increased from 3 days ago showing 12 1. Patient has a history for small cell carcinoma along with recent radiation treatment for days ago and recent hospitalization for pneumonia. Pneumonia appears to be refractory to treatment and patient will require readmission. Patient started on Vanco and Zosyn. Fluid rehydration has been initiated and will continue on 500 mL of clots to prevent pulmonary edema and worsening patient's respiratory status. ABG shows the patient has a respiratory alkalosis, most likely from patient's continued treatment of supplemental O2 for COPD exacerbation, to correct metabolic acidosis. Chest x-ray shows no change from previous x-ray for right lower lobe pneumonia. Patient has HCAP, sepsis, COPD exacerbation requiring IV antibiotics and readmission. Patient understands agrees to treatment plan. Dr. Horvath the hospitalist as accepted patient for admission. - Lab Data Lab results reviewed: Yes I reviewed the patient's lab results. Lab results narrative: Short CBC 05/25/17 Range/Units 19:06 WBC 16.5 H (4.3-11.1) K/mcL Hgb 12.3 (11.5-15.4) g/dL Hct 38.7 (35.3-44.9) % Plt Count 237 (140-400) K/mcL Neutrophils # 15.8 H (1.6-8.9) K/mcL BMP 05/25/17 Range/Units 19:06 Sodium 132 L (136-145) mEq/L Potassium 4.1 (3.5-5.1) mEq/L Chloride 98 (98-107) mEq/L Carbon Dioxide 29 (23-29) mEq/L BUN 17 (8-23) mg/dL Creatinine 0.54 L (0.60-1.20) mg/dL Glucose 263 H (70-105) mg/dL Calcium 8.8 (8.6-10.3) mg/dL Cardiac Enzymes 05/25/17 Range/Units 19:06 Troponin I < 0.03 (< 0.04) ng/mL Liver Function 05/25/17 Range/Units 19:06 Total Bilirubin 0.3 (0.3-1.0) mg/dL AST 15 (13-39) Units/L ALT 25 (7-52) Units/L Alkaline Phosphatase 53 (34-104) Units/L Albumin 3.4 L (3.5-5.7) g/dL Result diagrams: 05/25/17 19:06 05/25/17 19:06 Lab Results 05/25/17 05/25/17 05/25/17 Range/Units 19: 19:06 19:06 WBC 16.5 H (4.3-11.1) K/mcL RBC 4.13 (3.82-4.97) M/mcL Hgb 12.3 (11.5-15.4) g/dL Hct 38.7 (35.3-44.9) % MCV 93.7 (83.0-100.0) fL MCH 29.8 (28.0-33.3) pg MCHC 31.8 (31.6-35.5) g/dL RDW 15.3 H (11.5-14.5) % Plt Count 237 (140-400) K/mcL MPV 9.9 (9.4-12.4) fL Immature Gran % 0.6 (0-4) % Seg Neutrophils % 95.6 % Lymphocytes % 1.9 % Monocytes % 1.8 % Eosinophils % 0.0 % Basophils % 0.1 % Neutrophils # 15.8 H (1.6-8.9) K/mcL Lymphocytes # 0.3 L (0.6-4.6) K/mcL Monocytes # 0.3 (0.0-1.3) K/mcL Eosinophils # 0.0 (0.0-0.6) K/mcL Basophils # 0.0 (0.0-0.2) K/mcL PT 10.0 (9.4-12.1) Seconds INR 0.9 VBG pH (7.32-7.42) pH Units VBG pCO2 (41-51) mmHg VBG pO2 (25-50) mmHg VBG HCO3 (21-27) mEq/L Sodium 132 L (136-145) mEq/L Potassium 4.1 (3.5-5.1) mEq/L Chloride 98 (98-107) mEq/L Carbon Dioxide 29 (23-29) mEq/L BUN 17 (8-23) mg/dL Creatinine 0.54 L (0.60-1.20) mg/dL Est GFR ( Amer) > 60 (> 60) Est GFR (Non-Af Amer) > 60 (> 60) BUN/Creatinine Ratio 31 H (6-26) Glucose 263 H (70-105) mg/dL Calculated Osmolality 285 (280-300) Lactic Acid (0.5-2.2) mmol/L Calcium 8.8 (8.6-10.3) mg/dL Total Bilirubin 0.3 (0.3-1.0) mg/dL AST 15 (13-39) Units/L ALT 25 (7-52) Units/L Alkaline Phosphatase 53 (34-104) Units/L Troponin I < 0.03 (< 0.04) ng/mL B-Natriuretic Peptide (Less than 100) pg/mL Serum Total Protein 5.3 L (6.4-8.9) g/dL Albumin 3.4 L (3.5-5.7) g/dL Globulin 1.9 L (2.4-3.5) g/dL Albumin/Globulin Ratio 1.8 (1.1-2.2) 05/25/17 05/25/17 05/25/17 Range/Units 19:06 19:21 19:33 WBC (4.3-11.1) K/mcL RBC (3.82-4.97) M/mcL Hgb (11.5-15.4) g/dL Hct (35.3-44.9) % MCV (83.0-100.0) fL MCH (28.0-33.3) pg MCHC (31.6-35.5) g/dL RDW (11.5-14.5) % Plt Count (140-400) K/mcL MPV (9.4-12.4) fL Immature Gran % (0-4) % Seg Neutrophils % % Lymphocytes % % Monocytes % % Eosinophils % % Basophils % % Neutrophils # (1.6-8.9) K/mcL Lymphocytes # (0.6-4.6) K/mcL Monocytes # (0.0-1.3) K/mcL Eosinophils # (0.0-0.6) K/mcL Basophils # (0.0-0.2) K/mcL PT (9.4-12.1) Seconds INR VBG pH 7.53 H (7.32-7.42) pH Units VBG pCO2 38 L (41-51) mmHg VBG pO2 188 H (25-50) mmHg VBG HCO3 32 H (21-27) mEq/L Sodium (136-145) mEq/L Potassium (3.5-5.1) mEq/L Chloride (98-107) mEq/L Carbon Dioxide (23-29) mEq/L BUN (8-23) mg/dL Creatinine (0.60-1.20) mg/dL Est GFR ( Amer) (> 60) Est GFR (Non-Af Amer) (> 60) BUN/Creatinine Ratio (6-26) Glucose (70-105) mg/dL Calculated Osmolality (280-300) Lactic Acid 1.3 (0.5-2.2) mmol/L Calcium (8.6-10.3) mg/dL Total Bilirubin (0.3-1.0) mg/dL AST (13-39) Units/L ALT (7-52) Units/L Alkaline Phosphatase (34-104) Units/L Troponin I (< 0.04) ng/mL B-Natriuretic Peptide 33 (Less than 100) pg/mL Serum Total Protein (6.4-8.9) g/dL Albumin (3.5-5.7) g/dL Globulin (2.4-3.5) g/dL Albumin/Globulin Ratio (1.1-2.2) - Radiology Data Radiology results reviewed: Yes I reviewed the patient's radiology results. Chest X-Ray 05/25/17 18:28 IMPRESSION: Unchanged atelectasis or infiltrate central lower right lung. Remainder of the chest appears unremarkable. D/ / Moisés Duncan / Moisés Duncan Interpreting Provider: Moisés Duncan - EKG Data EKG attestation: Yes I reviewed and interpreted this EKG. EKG results narrative: EKG taken 05/25/2017 at 1838 hrs. shows sinus rhythm at a rate of 96 beats minute with no acute ST elevations or depressions and he needs, no QRS widening or QT prolongation. EKG shows no change and waveform morphology from previous EKG taken 05/18/2017
[2017-05-25] MEDS ORDERED: Piperacillin/Tazobactam 3.375 GM in 0.9 % Sodium Chloride Mini Bag 100 ML IVPB ONE (19:05)
[2017-05-25 19:23] LABS: VBG HCO3 32 mEq/L (21-27); VBG PCO2 38 mmHg (41-51); VBG PH 7.53 pH Units (7.32-7.42); VBG PO2 188 mmHg (25-50)
[2017-05-25 19:24] LABS: Basophils % 0.1 %; Hematocrit 38.7 % (35.3-44.9); Hemoglobin 12.3 g/dL (11.5-15.4); Immature Granulocytes % 0.6 % (0-4); Lymphocytes # 0.3 K/mcL (0.6-4.6); Lymphocytes % 1.9 %; Mean Corpuscular HGB Conc 31.8 g/dL (31.6-35.5); Mean Corpuscular Hemoglobin 29.8 pg (28.0-33.3); Mean Corpuscular Volume 93.7 fL (83.0-100.0); Mean Platelet Volume 9.9 fL (9.4-12.4); Monocytes # 0.3 K/mcL (0.0-1.3); Monocytes % 1.8 %; Neutrophils # 15.8 K/mcL (1.6-8.9); Platelet Count 237 K/mcL (140-400); Red Blood Count 4.13 M/mcL (3.82-4.97); Red Cell Distribution Width 15.3 % (11.5-14.5); Segmented Neutrophils % 95.6 %
[2017-05-25 19:29] LABS: INR 0.9
--- NOTE | 2017-05-25 19:34 | Emergency Department Note ---
Disposition Clinical Impression: HCAP (healthcare-associated pneumonia), SOB (shortness of breath), Small cell lung cancer, right lower lobe, Sepsis, Respiratory alkalosis Disposition: Admitted As Inpatient Condition: Fair Referrals: Ron Ward MD [Primary Care Provider] - Forms: ED Satisfaction Letter General Adult HPI - General Chief complaint: ED Shortness of Breath/Dyspnea Stated complaint: NOHELIA Time Seen by Provider: 05/25/17 18:25 Source: EMS Limitations: no limitations - History of Present Illness Pain Scale: 0 - Related Data Home Medications Medication Instructions Recorded Confirmed DULoxetine [Cymbalta] 30 mg PO HS 02/15/16 05/19/17 Trazodone HCl 200 mg PO HS 02/15/16 05/19/17 Albuterol Sulfate [Albuterol 2 puff IH Q6H PRN 10/14/16 05/19/17 Inhaler] Budesonide/Formoterol 160/4.5 2 puff IH BIDR 10/14/16 05/19/17 [Symbicort 160/4.5] Oxygen 2 l NS AD 10/14/16 05/19/17 Tiotropium [Spiriva] 18 mcg IH DAILY 10/14/16 05/19/17 Ascorbate Calcium [Vitamin C] 500 mg PO DAILY 12/14/16 05/19/17 Cholecalciferol (D-3) [Vitamin D] 5,000 unit PO DAILY 02/02/17 05/19/17 Melatonin [Melatin] 3 mg PO HS 02/02/17 05/19/17 Previous Rx's Medication Instructions Recorded Polyethylene Glycol 3350 [MiraLAX] 17 gm PO DAILY PRN #30 powd.pack 12/22/16 Sennosides/Docusate Sodium 2 each PO BID PRN #60 tablet 12/22/16 [Senna-Docusate Sodium Tablet] Calcium Carbonate/Vitamin D3 2 each PO DAILY #60 tablet 12/26/16 [Calcium 500 + Vit D Caplet] Albuterol Neb [Proventil Neb] 2.5 mg IH Q6H PRN 7 Days #30 vial 05/04/17 Ipratropium/Albuterol Neb [Duoneb] 3 ml IH Q4HR 30 Days vial.neb 05/15/17 Carvedilol 12.5 mg PO BID #60 tab 05/23/17 GuaiFENesin ER [Mucinex] 600 mg PO BID #60 tbbp.12hr 05/23/17 LORazepam [Ativan] 0.5 mg PO BID PRN 7 Days #14 tablet 05/23/17 OxyCODONE Immed Rel [Roxicodone 10 10 mg PO TID PRN 7 Days #21 tablet 05/23/17 MG] hydrALAZINE [HydrALAZINE] 25 mg PO Q8HR #90 tablet 05/23/17 predniSONE [PredniSONE] See Taper PO DAILY #126 tablet 05/23/17 Allergies Allergy/AdvReac Type Severity Reaction Status Date / Time No Known Allergies Allergy Verified 05/16/17 13:20 Constitutional: Reports: weakness. 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 - Social History Smoking Status: Current every day smoker Smokeless Tobacco Status: No Alcohol use: Reports: none Drug use: Reports: none Physical Exam - General Limitations: no limitations General appearance: alert, in no apparent distress Course Vital Signs Temperature 97.9 F 05/25/17 18:24 Pulse Rate 96 05/25/17 18:24 Respiratory Rate 24 05/25/17 18:24 Blood Pressure 128/84 05/25/17 18:24 O2 Sat by Pulse Oximetry 97 05/25/17 18:24 Temperature 97.9 F 05/25/17 18:24 Pulse Rate 96 05/25/17 18:24 Respiratory Rate 24 05/25/17 18:51 Blood Pressure 128/84 05/25/17 18:24 O2 Sat by Pulse Oximetry 97 05/25/17 18:51 Oxygen Delivery Oxygen Delivery Nasal Cannula Medical Decision Making - Lab Data Result diagrams: 05/25/17 19:06 05/25/17 19:06 Lab Results 05/25/17 05/25/17 05/25/17 Range/Units 19:06 19:06 19:06 WBC 16.5 H (4.3-11.1) K/mcL RBC 4.13 (3.82-4.97) M/mcL Hgb 12.3 (11.5-15.4) g/dL Hct 38.7 (35.3-44.9) % MCV 93.7 (83.0-100.0) fL MCH 29.8 (28.0-33.3) pg MCHC 31.8 (31.6-35.5) g/dL RDW 15.3 H (11.5-14.5) % Plt Count 237 (140-400) K/mcL MPV 9.9 (9.4-12.4) fL Immature Gran % 0.6 (0-4) % Seg Neutrophils % 95.6 % Lymphocytes % 1.9 % Monocytes % 1.8 % Eosinophils % 0.0 % Basophils % 0.1 % Neutrophils # 15.8 H (1.6-8.9) K/mcL Lymphocytes # 0.3 L (0.6-4.6) K/mcL Monocytes # 0.3 (0.0-1.3) K/mcL Eosinophils # 0.0 (0.0-0.6) K/mcL Basophils # 0.0 (0.0-0.2) K/mcL PT 10.0 (9.4-12.1) Seconds INR 0.9 VBG pH (7.32-7.42) pH Units VBG pCO2 (41-51) mmHg VBG pO2 (25-50) mmHg VBG HCO3 (21-27) mEq/L Sodium 132 L (136-145) mEq/L Potassium 4.1 (3.5-5.1) mEq/L Chloride 98 (98-107) mEq/L Carbon Dioxide 29 (23-29) mEq/L BUN 17 (8-23) mg/dL Creatinine 0.54 L (0.60-1.20) mg/dL Est GFR ( Amer) > 60 (> 60) Est GFR (Non-Af Amer) > 60 (> 60) BUN/Creatinine Ratio 31 H (6-26) Glucose 263 H (70-105) mg/dL Calculated Osmolality 285 (280-300) Lactic Acid (0.5-2.2) mmol/L Calcium 8.8 (8.6-10.3) mg/dL Total Bilirubin 0.3 (0.3-1.0) mg/dL AST 15 (13-39) Units/L ALT 25 (7-52) Units/L Alkaline Phosphatase 53 (34-104) Units/L Troponin I < 0.03 (< 0.04) ng/mL B-Natriuretic Peptide (Less than 100) pg/mL Serum Total Protein 5.3 L (6.4-8.9) g/dL Albumin 3.4 L (3.5-5.7) g/dL Globulin 1.9 L (2.4-3.5) g/dL Albumin/Globulin Ratio 1.8 (1.1-2.2) 05/25/17 05/25/17 05/25/17 Range/Units 19:06 19:21 19:33 WBC (4.3-11.1) K/mcL RBC (3.82-4.97) M/mcL Hgb (11.5-15.4) g/dL Hct (35.3-44.9) % MCV (83.0-100.0) fL MCH (28.0-33.3) pg MCHC (31.6-35.5) g/dL RDW (11.5-14.5) % Plt Count (140-400) K/mcL MPV (9.4-12.4) fL Immature Gran % (0-4) % Seg Neutrophils % % Lymphocytes % % Monocytes % % Eosinophils % % Basophils % % Neutrophils # (1.6-8.9) K/mcL Lymphocytes # (0.6-4.6) K/mcL Monocytes # (0.0-1.3) K/mcL Eosinophils # (0.0-0.6) K/mcL Basophils # (0.0-0.2) K/mcL PT (9.4-12.1) Seconds INR VBG pH 7.53 H (7.32-7.42) pH Units VBG pCO2 38 L (41-51) mmHg VBG pO2 188 H (25-50) mmHg VBG HCO3 32 H (21-27) mEq/L Sodium (136-145) mEq/L Potassium (3.5-5.1) mEq/L Chloride (98-107) mEq/L Carbon Dioxide (23-29) mEq/L BUN (8-23) mg/dL Creatinine (0.60-1.20) mg/dL Est GFR ( Amer) (> 60) Est GFR (Non-Af Amer) (> 60) BUN/Creatinine Ratio (6-26) Glucose (70-105) mg/dL Calculated Osmolality (280-300) Lactic Acid 1.3 (0.5-2.2) mmol/L Calcium (8.6-10.3) mg/dL Total Bilirubin (0.3-1.0) mg/dL AST (13-39) Units/L ALT (7-52) Units/L Alkaline Phosphatase (34-104) Units/L Troponin I (< 0.04) ng/mL B-Natriuretic Peptide 33 (Less than 100) pg/mL Serum Total Protein (6.4-8.9) g/dL Albumin (3.5-5.7) g/dL Globulin (2.4-3.5) g/dL Albumin/Globulin Ratio (1.1-2.2) Attestation Statement - Attestation Attestation: I examined this patient and my medical decision-making was reviewed with the Resident Physician. I agree with the documented findings, disposition and treatment plan as described except to the extent set forth below. Patient presents to the ED with a chief complaint shortness of breath. Coughing up clear phlegm. Patient recently seen and admitted to the hospital for pneumonia. She was discharged home with prescription for a [place] and is still taking her steroid. On examination she is tachypneic but in no distress. Currently her breathing treatment. Diffuse exquisite Tory wheezing right greater than left. Plan. Chronic workup. Patient elevated white blood cell count of 16,000. Sepsis order set entered. Starting IV antibiotic and likely admission. Chest x-ray is unchanged from last admission.
[2017-05-25 19:46] LABS: Alanine Aminotransferase 25 Units/L (7-52); Albumin 3.4 g/dL (3.5-5.7); Albumin/Globulin Ratio 1.8 (1.1-2.2); Alkaline Phosphatase 53 Units/L (34-104); Aspartate Amino Transferase 15 Units/L (13-39); BUN/Creatinine Ratio 31 (6-26); Bilirubin,Total 0.3 mg/dL (0.3-1.0); Blood Urea Nitrogen 17 mg/dL (8-23); Calcium 8.8 mg/dL (8.6-10.3); Carbon Dioxide 29 mEq/L (23-29); Chloride 98 mEq/L (98-107); Globulin 1.9 g/dL (2.4-3.5); Glucose 263 mg/dL (70-105); Osmolality,Calculated 285 (280-300); Potassium 4.1 mEq/L (3.5-5.1); Sodium 132 mEq/L (136-145); Total Protein 5.3 g/dL (6.4-8.9); Troponin I < 0.03 ng/mL (< 0.04); eGFR For African Americans > 60 (> 60); eGFR For Non-African Americans > 60 (> 60)
[2017-05-25] MEDS ORDERED: Albuterol 2.5 MG/3 ML NEBULIZER IH ONE (19:55)
[2017-05-25] MEDS ORDERED: *HR* FentaNYL (PF) 100 MCG/2 ML VIAL IVP ONE (19:55)
[2017-05-25] MEDS ORDERED: 0.9 % Sodium Chloride 500 ML IVC ONE (19:58)
[2017-05-25] MEDS ORDERED: Naloxone 0.4 MG/ML INJ IVP PRN (20:58)
[2017-05-25] MEDS ORDERED: Acetaminophen 325 MG TABLET PO PRN (21:17)
[2017-05-25] MEDS ORDERED: Sennosides/Docusate Sodium TABLET PO PRN (22:31)
[2017-05-25] MEDS ORDERED: NON-FORMULARY MEDICATION 1 EACH EACH (Oxygen [Oxygen] 2 L) NS SCH (22:45)
--- NOTE | 2017-05-25 22:50 | Internal Med History&Physical ---
Date of Encounter: 05/25/17 Time of Encounter: 21:00 Internal Medicine - H&P: HPI Chief complaint: Shortness of breath Admitted From: Emergency Dept Plans for Post Hospital Care: Home History of present illness: Ms. Keenan is a 61 year old female with PMH of small cell lung cancer s/p chemotherapy, COPD, Chronic hypoxic resp failure on 2 lit home O2 and recurrent hospitalizations for likely post obstructive pneumonia pt who just discharged from our hospital on 05/23/17 to [facility] now she presented to ER with worsening shortness of breath since she left the hospital associated with cough. Pt states her SOB got worsened since y/d. She does have cough with clear sputum production. Denied any CP. Past Med Surg Social Fam HX - Past Medical History Medical history: cancer, COPD, hypertension Psychiatric history: anxiety, depression - Past Surgical History Surgical History: hysterectomy - Social History Smoking Status: Current every day smoker Smokeless Tobacco Status: No Alcohol use: none Drug use: none - Family History Sister Family Member Ethnicity: Non- Living Status: Still Living Hx Family Cardiac Disorders: Yes (HTN) Hx Family Cancer: Yes (Lymphoma) Mother Family Member Ethnicity: Non- Living Status: Hx Family Cardiac Disorders: Yes (Aneurysm, HTN) Hx Family Respiratory Disorders: Yes (COPD) Father Adopted: No Family Member Ethnicity: Non- Living Status: Hx Family Cardiac Disorders: Yes (CHF, CAD, IL) Hx Family Respiratory Disorders: Yes (mother copd) Hx Family Cancer: No Hx Family GI Disorders: No Hx Family Endocrine Disorder: No Hx Family Neuromuscular Disorders: No Hx Family Neurologic Disorders: No Hx Family HEENT Disorders: No Hx Family Autoimmune Disorders: No Internal Medicine - H&P: Meds DULoxetine [Cymbalta] 30 mg PO HS 02/15/16 [History] Trazodone HCl 200 mg PO HS 02/15/16 [History] Albuterol Sulfate [Albuterol Inhaler] 2 puff IH Q6H PRN 10/14/16 [History] Budesonide/Formoterol 160/4.5 [Symbicort 160/4.5] 2 puff IH BIDR 10/14/16 [ History] Oxygen 2 l NS AD 10/14/16 [History] Tiotropium [Spiriva] 18 mcg IH DAILY 10/14/16 [History] Ascorbate Calcium [Vitamin C] 500 mg PO DAILY 12/14/16 [History] Polyethylene Glycol 3350 [MiraLAX] 17 gm PO DAILY PRN #30 powd.pack 12/22/16 [Rx ] Sennosides/Docusate Sodium [Senna-Docusate Sodium Tablet] 2 each PO BID PRN #60 tablet 12/22/16 [Rx] Calcium Carbonate/Vitamin D3 [Calcium 500 + Vit D Caplet] 2 each PO DAILY #60 tablet 12/26/16 [Rx] Cholecalciferol (D-3) [Vitamin D] 5,000 unit PO DAILY 02/02/17 [History] Melatonin [Melatin] 3 mg PO HS 02/02/17 [History] Albuterol Neb [Proventil Neb] 2.5 mg IH Q6H PRN 7 Days #30 vial 05/04/17 [Rx] Ipratropium/Albuterol Neb [Duoneb] 3 ml IH Q4HR 30 Days vial.neb 05/15/17 [Rx] Carvedilol 12.5 mg PO BID #60 tab 05/23/17 [Rx] GuaiFENesin ER [Mucinex] 600 mg PO BID #60 tbbp.12hr 05/23/17 [Rx] LORazepam [Ativan] 0.5 mg PO BID PRN 7 Days #14 tablet 05/23/17 [Rx] OxyCODONE Immed Rel [Roxicodone 10 MG] 10 mg PO TID PRN 7 Days #21 tablet [Rx] hydrALAZINE [HydrALAZINE] 25 mg PO Q8HR #90 tablet 05/23/17 [Rx] predniSONE [PredniSONE] See Taper PO DAILY #126 tablet 05/23/17 [Rx] 3 Allergy/AdvReac Type Severity Reaction Status Date / Time No Known Allergies Allergy Verified 05/16/17 13:20 All Systems PM: A 10-system review of systems was performed and is negative for pertinent findings except as documented above in the HPI. Review of systems: All the systems are reviewed everything is benign except the systems and symptoms I mentioned in the history of present illness - Constitutional Vitals: Temp Pulse Resp BP Pulse Ox 97.8 F 87 18 117/68 95 05/25/17 21:43 05/25/17 21:43 05/25/17 21:43 05/25/17 21:43 05/25/17 21:43 General appearance: Present: cooperative, mild distress, A&O X 3, answers questions appropriately - Head Head exam: Present: atraumatic, normal inspection - Neck Neck exam general surgery: Present: supple - Respiratory Respiratory exam: Present: decreased breath sounds, rales (mild), respiratory distress (mild), wheezes (moderate). Absent: rhonchi - Cardiovascular Cardiovascular exam: Present: RRR, +S1, +S2. Absent: tachycardia - GI/Abdominal GI/Abdominal exam: Present: normal bowel sounds, soft. Absent: rebound, rigid, tenderness - Extremities Exam Extremities exam: Absent: calf tenderness, pedal edema, tenderness - Back Exam Back exam: Absent: CVA tenderness (L), CVA tenderness (R) - Neurological Exam Neurological exam: Present: alert, oriented X3 - Psychiatric Psychiatric exam: Present: normal affect, normal mood - Skin Skin exam: Absent: rash Internal Med - H&P Results - Labs CBC & Chem 7: 05/25/17 19:06 05/25/17 19:06 - Assessment and plan (1) SIRS (systemic inflammatory response syndrome) Current Visit: No Status: Acute Assessment and plan: Admit the pt into Tele Pt does meet SIRS criteria with elevated WBC, sinus tachycardia and source of inf as pneumonia started on empirical abx Cefepime + Levaquin Blood cx drawn in the ER (2) COPD exacerbation Current Visit: Yes Status: Acute Assessment and plan: started on high dose IV steroids Duonebs + o2 (3) HCAP (healthcare-associated pneumonia) Current Visit: Yes Status: Acute Assessment and plan: Reviewed CXr showed RLL PNA mostly bacterial cont empirical abx Cefepime + Levaquin One dose Vanco given in the ER I will check for sputum culture (4) Small cell lung cancer, right lower lobe Current Visit: Yes Status: Acute Assessment and plan: f/u with Heme Onc as an out pt (5) HTN (hypertension) Current Visit: No Status: Chronic Assessment and plan: stable with home meds resumed all home meds Qualifiers: Hypertension type: essential hypertension Qualified Code(s): I10 - Essential (primary) hypertension (6) Chronic respiratory failure with hypoxia Current Visit: No Status: Chronic Assessment and plan: Currently on 3 lit O2 which seems to be at her baseline - Time Spent With Patient Total time spent is greater than 50% in coordination of care (as documented) at patient's floor/unit and/or counseling patient:
[2017-05-26] MEDS: Ipratropium/Albuterol Neb 3 ML IH SCH ×7 (00:35→23:57)
[2017-05-26] MEDS: *HR* LORazepam 0.5 MG TABLET PO PRN ×4 (00:46→21:43)
[2017-05-26] MEDS: *HR* OxyCODONE Immed Rel 5 MG TABLET PO PRN ×4 (00:50→21:43)
[2017-05-26] MEDS: hydrALAZINE 25 MG TABLET PO SCH ×3 (00:50→17:27)
[2017-05-26] MEDS: MethylPREDNISolone 40 MG/ML VIAL IVP SCH ×4 (00:57→17:58)
[2017-05-26 06:03] LABS: Basophils % 0.1 %; Hematocrit 39.1 % (35.3-44.9); Hemoglobin 12.2 g/dL (11.5-15.4); Immature Granulocytes % 0.6 % (0-4); Lymphocytes # 0.1 K/mcL (0.6-4.6); Lymphocytes % 0.8 %; Mean Corpuscular HGB Conc 31.2 g/dL (31.6-35.5); Mean Corpuscular Hemoglobin 29.6 pg (28.0-33.3); Mean Corpuscular Volume 94.9 fL (83.0-100.0); Mean Platelet Volume 9.8 fL (9.4-12.4); Monocytes # 0.1 K/mcL (0.0-1.3); Monocytes % 0.8 %; Neutrophils # 12.1 K/mcL (1.6-8.9); Nucleated Red Blood Cells 0.2 /100 WBC (0); Platelet Count 258 K/mcL (140-400); Red Blood Count 4.12 M/mcL (3.82-4.97); Red Cell Distribution Width 15.4 % (11.5-14.5); Segmented Neutrophils % 97.7 %
[2017-05-26] MEDS: Cefepime HCl 1,000 MG in Water for inj. (sterile) 20 ML 10 ML IVPB SCH ×2 (06:06→17:44)
[2017-05-26] MEDS: *HR* Enoxaparin 40 MG/0.4 ML SYRINGE SQ SCH (06:10)
[2017-05-26 06:23] LABS: BUN/Creatinine Ratio 36 (6-26); Blood Urea Nitrogen 17 mg/dL (8-23); Calcium 8.6 mg/dL (8.6-10.3); Carbon Dioxide 31 mEq/L (23-29); Chloride 107 mEq/L (98-107); Glucose 171 mg/dL (70-105); Magnesium 2.2 mg/dL (1.6-2.6); Osmolality,Calculated 296 (280-300); Potassium 4.6 mEq/L (3.5-5.1); Sodium 140 mEq/L (136-145); eGFR For African Americans > 60 (> 60); eGFR For Non-African Americans > 60 (> 60)
[2017-05-26 06:29] LABS: Platelet Estimate Normal (Normal)
[2017-05-26] MEDS: Budesonide/Formoterol 160/4.5 MDI IH SCH ×2 (08:28→19:49)
[2017-05-26] MEDS: Tiotropium 18 MCG inhalation IH SCH (08:29)
[2017-05-26] MEDS: Ascorbic Acid 500 MG TABLET PO SCH (08:51)
[2017-05-26] MEDS: Levofloxacin 750 MG/150 ML 750 MG/150 ML BAG IVPB SCH (08:51)
[2017-05-26] MEDS: Cholecalciferol (D-3) 1,000 UNIT TABLET PO SCH (08:51)
[2017-05-26] MEDS: Calcium 500 + Vit D PO SCH (09:03)
--- NOTE | 2017-05-26 14:27 | Internal Med Progress Note ---
Date of Encounter: 05/26/17 Time of Encounter: 14:22 - Assessment and plan (1) HCAP (healthcare-associated pneumonia) Current Visit: Yes Status: Acute Assessment and plan: Reviewed CXR and revealed RLL PNA, bacterial cont empirical abx Cefepime and Levaquin One dose Vanco given in the ER sputum culture ordered (2) SIRS (systemic inflammatory response syndrome) Current Visit: No Status: Acute Assessment and plan: continue Tele Pt did meet SIRS criteria with elevated WBC, sinus tachycardia and source of infection as pneumonia Started on empirical abx Cefepime and Levaquin Blood cx obtained in the ER, pending Lactic acid 1.0 BP stable, HR 90s, low grade temp (3) HTN (hypertension) Current Visit: No Status: Chronic Assessment and plan: stable with home meds continuel home meds Qualifiers: Hypertension type: essential hypertension Qualified Code(s): I10 - Essential (primary) hypertension (4) Chronic respiratory failure with hypoxia Current Visit: No Status: Chronic Assessment and plan: remains on 3 lit O2 which seems to be at her baseline (5) Small cell lung cancer, right lower lobe Current Visit: Yes Status: Acute Assessment and plan: f/u with Heme Onc as an out pt To have radiation treatments daily saturday to saturday (6) COPD exacerbation Current Visit: Yes Status: Acute Assessment and plan: continue IV steroids at current dose and decrease in am Continue Duonebs Oxygen to maintain sats greater than 90% - Time Spent With Patient Total time spent is greater than 50% in coordination of care (as documented) at patient's floor/unit and/or counseling patient: - Subjective Interval history: Patient is lying in bed. Her is at the bedside. She stated she came in because she just could not breathe last night and she felt terrible. She states she feels a little better today. She is to get radiation Saturday through Saturday this week. She states it is harder on her than the chemotherapy was. - Constitutional Vitals: Temp Pulse Resp BP Pulse Ox 99.3 F 91 18 152/88 95 05/26/17 11:26 05/26/17 11:26 05/26/17 11:39 05/26/17 11:26 05/26/17 11:39 General appearance: Present: cachectic, cooperative, mild distress, A&O X 3, pleasant, underweight, answers questions appropriately - Head Head exam: Present: atraumatic, normocephalic - Eye Eye exam: Present: PERRL, conjuntiva pink, sclera anicteric Pupils: Present: PERRL - Neck Neck exam general surgery: Present: supple, trachea midline. Absent: lymphadenopathy - Respiratory Respiratory exam: Present: decreased breath sounds, prolonged expiratory phase, rhonchi, wheezes. Absent: accessory muscle use, rales - Cardiovascular Cardiovascular exam: Present: RRR, +S1, +S2. Absent: diastolic murmur, gallop, rubs, systolic murmur - GI/Abdominal GI/Abdominal exam: Present: normal bowel sounds, soft, no peritoneal signs. Absent: distended, tenderness - Extremities Exam Extremities exam: Present: warm, radial pulses palpable and symmetrical. Absent : calf tenderness, cyanotic, pedal edema - Neurological Exam Neurological exam: Present: alert, CN II-XII intact, oriented X3, no focal deficits. Absent: pronater drift, facial droop, speech deficit - Skin Skin exam: Present: dry, intact, pallor, warm Internal Medicine: Result - Labs CBC & Chem 7: 05/26/17 05:27 05/26/17 05:27 Labs: Short CBC 05/26/17 Range/Units 05:27 WBC 12.4 H (4.3-11.1) K/mcL Hgb 12.2 (11.5-15.4) g/dL Hct 39.1 (35.3-44.9) % Plt Count 258 (140-400) K/mcL Neutrophils # 12.1 H (1.6-8.9) K/mcL BMP 05/26/17 05:27 Sodium 140 Potassium 4.6 Chloride 107 Carbon Dioxide 31 H BUN 17 Creatinine 0.47 L Glucose 171 H Calcium 8.6 - ABG Interpretation ABG results: PT/INR, D-dimer PT 10.0 Seconds (9.4-12.1) 05/25/17 19:06 Consult Discharge Plan - Plan Referrals: Ron Ward MD [Primary Care Provider] -
[2017-05-26] MEDS: Melatonin 3 MG TABLET PO SCH (21:43)
[2017-05-26] MEDS: traZODone 50 MG TABLET PO SCH (21:43)
[2017-05-27] MEDS: Ipratropium/Albuterol Neb 3 ML IH SCH ×6 (04:14→23:41)
[2017-05-27 04:24] LABS: Hematocrit 34.9 % (35.3-44.9); Hemoglobin 10.9 g/dL (11.5-15.4); Mean Corpuscular HGB Conc 31.2 g/dL (31.6-35.5); Mean Corpuscular Hemoglobin 29.5 pg (28.0-33.3); Mean Corpuscular Volume 94.3 fL (83.0-100.0); Platelet Count 243 K/mcL (140-400); Red Cell Distribution Width 15.3 % (11.5-14.5)
[2017-05-27 04:41] LABS: BUN/Creatinine Ratio 38 (6-26); Blood Urea Nitrogen 18 mg/dL (8-23); Calcium 8.6 mg/dL (8.6-10.3); Carbon Dioxide 37 mEq/L (23-29); Chloride 104 mEq/L (98-107); Glucose 223 mg/dL (70-105); Osmolality,Calculated 299 (280-300); Sodium 140 mEq/L (136-145); eGFR For African Americans > 60 (> 60); eGFR For Non-African Americans > 60 (> 60)
[2017-05-27] MEDS: Cefepime HCl 1,000 MG in Water for inj. (sterile) 20 ML 10 ML IVPB SCH ×2 (06:21→17:06)
[2017-05-27] MEDS: *HR* Enoxaparin 40 MG/0.4 ML SYRINGE SQ SCH (06:28)
[2017-05-27] MEDS: MethylPREDNISolone 40 MG/ML VIAL IVP SCH ×4 (06:29→17:06)
[2017-05-27] MEDS: *HR* OxyCODONE Immed Rel 5 MG TABLET PO PRN ×3 (06:30→20:11)
[2017-05-27] MEDS: Budesonide/Formoterol 160/4.5 MDI IH SCH ×2 (08:02→19:35)
[2017-05-27] MEDS: Tiotropium 18 MCG inhalation IH SCH (08:11)
[2017-05-27] MEDS: Ascorbic Acid 500 MG TABLET PO SCH (09:00)
[2017-05-27] MEDS: Cholecalciferol (D-3) 1,000 UNIT TABLET PO SCH (09:00)
[2017-05-27] MEDS: hydrALAZINE 25 MG TABLET PO SCH ×3 (09:00→17:05)
[2017-05-27] MEDS: Calcium 500 + Vit D PO SCH (09:52)
[2017-05-27] MEDS: *HR* LORazepam 0.5 MG TABLET PO PRN ×2 (10:46→20:08)
[2017-05-27] MEDS: Levofloxacin 750 MG/150 ML 750 MG/150 ML BAG IVPB SCH (11:05)
[2017-05-27] MEDS: Albuterol 2.5 MG/3 ML NEBULIZER IH PRN (13:45)
--- NOTE | 2017-05-27 19:18 | Internal Med Progress Note ---
Date of Encounter: 05/27/17 Time of Encounter: 19:16 - Assessment and plan (1) HCAP (healthcare-associated pneumonia) Current Visit: Yes Status: Acute Assessment and plan: Reviewed CXR, revealed RLL PNA, bacterial cont empirical abx Cefepime and Levaquin One dose Vanco given in the ER sputum culture prelim with gram-positive cocci Blood cultures no growth on preliminary readings (2) SIRS (systemic inflammatory response syndrome) Current Visit: No Status: Acute Assessment and plan: continue Tele Pt did meet SIRS criteria with elevated WBC, sinus tachycardia and source of infection as pneumonia ontinue empirical abx Cefepime and Levaquin Blood cx obtained in the ER, pending Lactic acid 1.0 BP stable, HR 90s, low grade resolved (3) HTN (hypertension) Current Visit: No Status: Chronic Assessment and plan: stable continuel home meds Qualifiers: Hypertension type: essential hypertension Qualified Code(s): I10 - Essential (primary) hypertension (4) Chronic respiratory failure with hypoxia Current Visit: No Status: Chronic Assessment and plan: remains on 3 lit nc/O2 which seems to be at her baseline (5) Small cell lung cancer, right lower lobe Current Visit: Yes Status: Acute Assessment and plan: Oncology aware of admission and will see the patient outpatient To have radiation treatments daily saturday to saturday (6) COPD exacerbation Current Visit: Yes Status: Acute Assessment and plan: continue IV steroids at current dose Continue Duonebs Oxygen to maintain sats greater than 90% - Time Spent With Patient Total time spent is greater than 50% in coordination of care (as documented) at patient's floor/unit and/or counseling patient: - Subjective Interval history: Patient is lying in bed. She states she is more comfortable today. She denies any complaints of fever chills chest pain but remains with shortness of breath even at rest. - Constitutional Vitals: Temp Pulse Resp BP Pulse Ox 98.5 F 89 16 153/80 96 05/27/17 18:41 05/27/17 18:41 05/27/17 18:41 05/27/17 18:41 05/27/17 18:41 General appearance: Present: cachectic, cooperative, mild distress, A&O X 3, pleasant, underweight, answers questions appropriately - Head Head exam: Present: atraumatic, normocephalic - Eye Eye exam: Present: PERRL, conjuntiva pink, sclera anicteric Pupils: Present: PERRL - Neck Neck exam general surgery: Present: supple, trachea midline. Absent: lymphadenopathy - Respiratory Respiratory exam: Present: decreased breath sounds, prolonged expiratory phase, rhonchi, wheezes. Absent: accessory muscle use, rales - Cardiovascular Cardiovascular exam: Present: RRR, +S1, +S2. Absent: diastolic murmur, gallop, rubs, systolic murmur - GI/Abdominal GI/Abdominal exam: Present: normal bowel sounds, soft, no peritoneal signs. Absent: distended, tenderness - Extremities Exam Extremities exam: Present: warm, radial pulses palpable and symmetrical. Absent : calf tenderness, cyanotic, pedal edema - Neurological Exam Neurological exam: Present: CN II-XII intact, oriented X3, no focal deficits. Absent: pronater drift, facial droop, speech deficit - Skin Skin exam: Present: dry, intact, normal color, warm Internal Medicine: Result - Labs CBC & Chem 7: 05/27/17 03:21 05/27/17 03:21 Labs: Short CBC 05/27/17 Range/Units 03:21 WBC 13.7 H (4.3-11.1) K/mcL Hgb 10.9 L (11.5-15.4) g/dL Hct 34.9 L (35.3-44.9) % Plt Count 243 (140-400) K/mcL BMP 05/27/17 03:21 Sodium 140 Potassium 4.0 Chloride 104 Carbon Dioxide 37 H BUN 18 Creatinine 0.47 L Glucose 223 H Calcium 8.6 - ABG Interpretation ABG results: PT/INR, D-dimer PT 10.0 Seconds (9.4-12.1) 05/25/17 19:06 Consult Discharge Plan - Plan Referrals: Ron Ward MD [Primary Care Provider] -
[2017-05-27] MEDS: traZODone 50 MG TABLET PO SCH (20:06)
[2017-05-27] MEDS: Melatonin 3 MG TABLET PO SCH (20:06)
[2017-05-27] MEDS: *HR* Promethazine 25 MG/ML VIAL IVP PRN (22:14)
[2017-05-28] MEDS: hydrALAZINE 25 MG TABLET PO SCH ×3 (00:28→17:17)
[2017-05-28] MEDS: Ipratropium/Albuterol Neb 3 ML IH SCH ×6 (03:36→23:40)
[2017-05-28 05:59] LABS: Hematocrit 35.5 % (35.3-44.9); Hemoglobin 11.1 g/dL (11.5-15.4); Mean Corpuscular HGB Conc 31.3 g/dL (31.6-35.5); Mean Corpuscular Hemoglobin 29.3 pg (28.0-33.3); Mean Corpuscular Volume 93.7 fL (83.0-100.0); Mean Platelet Volume 9.9 fL (9.4-12.4); Platelet Count 258 K/mcL (140-400); Red Blood Count 3.79 M/mcL (3.82-4.97); Red Cell Distribution Width 15.3 % (11.5-14.5)
[2017-05-28 06:17] LABS: BUN/Creatinine Ratio 41 (6-26); Blood Urea Nitrogen 18 mg/dL (8-23); Calcium 8.4 mg/dL (8.6-10.3); Carbon Dioxide 29 mEq/L (23-29); Chloride 104 mEq/L (98-107); Glucose 152 mg/dL (70-105); Osmolality,Calculated 289 (280-300); Potassium 4.4 mEq/L (3.5-5.1); Sodium 137 mEq/L (136-145); eGFR For African Americans > 60 (> 60); eGFR For Non-African Americans > 60 (> 60)
[2017-05-28] MEDS: MethylPREDNISolone 40 MG/ML VIAL IVP SCH ×4 (06:50→17:17)
[2017-05-28] MEDS: Cefepime HCl 1,000 MG in Water for inj. (sterile) 20 ML 10 ML IVPB SCH ×2 (06:52→17:17)
[2017-05-28] MEDS: *HR* OxyCODONE Immed Rel 5 MG TABLET PO PRN (06:57)
[2017-05-28] MEDS: *HR* Enoxaparin 40 MG/0.4 ML SYRINGE SQ SCH (07:00)
[2017-05-28] MEDS: Budesonide/Formoterol 160/4.5 MDI IH SCH ×2 (07:27→20:04)
[2017-05-28] MEDS: Tiotropium 18 MCG inhalation IH SCH (07:29)
[2017-05-28] MEDS: Ascorbic Acid 500 MG TABLET PO SCH (09:16)
[2017-05-28] MEDS: Cholecalciferol (D-3) 1,000 UNIT TABLET PO SCH (09:16)
[2017-05-28] MEDS: Levofloxacin 750 MG/150 ML 750 MG/150 ML BAG IVPB SCH (09:16)
[2017-05-28] MEDS: Ondansetron 4 MG/2 ML VIAL IVP PRN (09:23)
[2017-05-28] MEDS: Calcium 500 + Vit D PO SCH (09:37)
[2017-05-28] MEDS: Albuterol 2.5 MG/3 ML NEBULIZER IH PRN ×3 (11:15→18:31)
[2017-05-28] MEDS: *HR* LORazepam 0.5 MG TABLET PO PRN ×2 (11:46→19:58)
[2017-05-28] MEDS: *HR* Promethazine 25 MG/ML VIAL IVP PRN ×2 (13:09→19:44)
[2017-05-28] MEDS: *HR* HYDROcodone/Acet 5/325 mg TABLET PO PRN (15:32)
--- NOTE | 2017-05-28 16:43 | Internal Med Progress Note ---
Date of Encounter: 05/28/17 Time of Encounter: 10:35 - Assessment and plan (1) HCAP (healthcare-associated pneumonia) Current Visit: Yes Status: Acute Assessment and plan: Bacterial. One dose Vanco given in the ER sputum culture prelim with gram-positive cocci, final still pending. Blood cultures negative 2. Patient is afebrile, normotensive, no signs of sirs or sepsis. Continue dual antibiotic therapy with cefepime and Levaquin. Oxygen as needed to maintain sats greater than 92% Continue nebulizer treatments, Symbicort, Mucinex, IV Solumedrol (2) SIRS (systemic inflammatory response syndrome) Current Visit: No Status: Acute Assessment and plan: Pt did meet SIRS criteria with elevated WBC, sinus tachycardia and source of infection as pneumonia. Patient now without tachycardia, no leukocytosis. Continue IV Cefepime and Levaquin Blood cx negative 2, lactic negative Continue to monitor labs and vital signs. (3) HTN (hypertension) Current Visit: No Status: Chronic Assessment and plan: Chronic. Continue home medications. Well controlled. Qualifiers: Hypertension type: essential hypertension Qualified Code(s): I10 - Essential (primary) hypertension (4) Chronic respiratory failure with hypoxia Current Visit: No Status: Chronic Assessment and plan: Patient currently at 2.5 L by nasal cannula. Maintain sats greater than 92%. This appears to be patient's baseline. (5) Small cell lung cancer, right lower lobe Current Visit: Yes Status: Acute Assessment and plan: Per patient history. Patient went to radiation today at 1415. Patient follows with [facility]. Follow outpatient. (6) COPD exacerbation Current Visit: Yes Status: Acute Assessment and plan: Plan as above. Patient's lungs are diminished throughout posterior [place]. Mild respiratory distress. Patient reports improvement with nebulizer treatments. - Time Spent With Patient Total time spent is greater than 50% in coordination of care (as documented) at patient's floor/unit and/or counseling patient: less than 15 minutes - Subjective Interval history: Patient was seen and assessed at 10:35 AM. She states that she is feeling some better, pressors are slightly labored. Patient reports needing frequent breathing treatments while she is here. She reports productive cough with yellow sputum. She also is to have radiation at the cancer Center today at 2: 15 PM. Patient reports that she does not want to go back to the snf, she would be willing to have PT/OT at home, she denies any need for home health. She denies chest pain, nausea, vomiting, diarrhea, abdominal pain, headache or dizziness. - Constitutional Vitals: Temp Pulse Resp BP Pulse Ox 97.8 F 101 15 150/81 94 05/28/17 15:02 05/28/17 15:02 05/28/17 15:02 05/28/17 15:02 05/28/17 15:02 General appearance: Present: cachectic, cooperative, mild distress, A&O X 3, pleasant, underweight, answers questions appropriately - Head Head exam: Present: atraumatic, normal inspection, normocephalic - Eye Eye exam: Present: normal appearance, conjuntiva pink, sclera anicteric - Neck Neck exam general surgery: Present: normal inspection, supple, trachea midline. Absent: lymphadenopathy, tenderness - Respiratory Respiratory exam: Present: decreased breath sounds, CTAB. Absent: accessory muscle use, chest wall tenderness, rales, respiratory distress, rhonchi, wheezes - Cardiovascular Cardiovascular exam: Present: RRR, +S1, +S2. Absent: diastolic murmur, gallop, rubs, systolic murmur - GI/Abdominal GI/Abdominal exam: Present: normal bowel sounds, soft. Absent: distended, tenderness - Extremities Exam Extremities exam: Present: normal capillary refill, warm, radial pulses palpable and symmetrical. Absent: calf tenderness, cyanotic, pedal edema, tenderness - Neurological Exam Neurological exam: Present: alert, oriented X3, no focal deficits. Absent: altered, facial droop, speech deficit - Skin Skin exam: Present: dry, intact, normal color, warm. Absent: rash Internal Medicine: Result - Labs CBC & Chem 7: 05/28/17 04:18 05/28/17 04:18 Labs: Short CBC 05/28/17 Range/Units 04:18 WBC 13.1 H (4.3-11.1) K/mcL Hgb 11.1 L (11.5-15.4) g/dL Hct 35.5 (35.3-44.9) % Plt Count 258 (140-400) K/mcL BMP 05/28/17 04:18 Sodium 137 Potassium 4.4 Chloride 104 Carbon Dioxide 29 BUN 18 Creatinine 0.44 L Glucose 152 H Calcium 8.4 L - ABG Interpretation ABG results: PT/INR, D-dimer PT 10.0 Seconds (9.4-12.1) 05/25/17 19:06 Consult Discharge Plan - Plan Referrals: Ron aWrd MD [Primary Care Provider] -
[2017-05-28] MEDS: Melatonin 3 MG TABLET PO SCH (19:44)
[2017-05-28] MEDS: traZODone 50 MG TABLET PO SCH (19:44)
--- NOTE | 2017-05-29 00:27 | Electrocardiograph Report ---
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
[2017-05-29] MEDS: MethylPREDNISolone 40 MG/ML VIAL IVP SCH ×4 (00:34→16:14)
[2017-05-29] MEDS: hydrALAZINE 25 MG TABLET PO SCH ×3 (00:35→15:27)
[2017-05-29] MEDS: Ipratropium/Albuterol Neb 3 ML IH SCH ×5 (04:10→19:55)
[2017-05-29] MEDS: Cefepime HCl 1,000 MG in Water for inj. (sterile) 20 ML 10 ML IVPB SCH ×2 (05:34→16:14)
[2017-05-29] MEDS: *HR* Enoxaparin 40 MG/0.4 ML SYRINGE SQ SCH (05:34)
[2017-05-29 07:07] LABS: BUN/Creatinine Ratio 45 (6-26); Blood Urea Nitrogen 19 mg/dL (8-23); Calcium 8.9 mg/dL (8.6-10.3); Carbon Dioxide 33 mEq/L (23-29); Chloride 101 mEq/L (98-107); Glucose 171 mg/dL (70-105); Osmolality,Calculated 294 (280-300); Potassium 4.3 mEq/L (3.5-5.1); Sodium 139 mEq/L (136-145); eGFR For African Americans > 60 (> 60); eGFR For Non-African Americans > 60 (> 60)
[2017-05-29] MEDS: Budesonide/Formoterol 160/4.5 MDI IH SCH ×2 (07:57→19:55)
[2017-05-29] MEDS: Tiotropium 18 MCG inhalation IH SCH (08:07)
[2017-05-29] MEDS: *HR* Promethazine 25 MG/ML VIAL IVP PRN ×2 (09:29→16:13)
[2017-05-29] MEDS: Levofloxacin 750 MG/150 ML 750 MG/150 ML BAG IVPB SCH (09:33)
[2017-05-29] MEDS: Cholecalciferol (D-3) 1,000 UNIT TABLET PO SCH (09:34)
[2017-05-29] MEDS: Ascorbic Acid 500 MG TABLET PO SCH (09:34)
[2017-05-29] MEDS: *HR* HYDROcodone/Acet 5/325 mg TABLET PO PRN ×2 (09:48→21:14)
[2017-05-29] MEDS: *HR* LORazepam 0.5 MG TABLET PO PRN ×2 (09:48→21:15)
--- NOTE | 2017-05-29 13:17 | Palliative - Consult Note ---
Date of Encounter: 05/29/17 Time of Encounter: 13:00 - Assessment and Plan (1) Anxiety Current Visit: No Status: Chronic Assessment and plan: Continues with Lorazepam 0.5 bid PRN. Has been taking this regularly. Monitor (2) Constipation Current Visit: No Status: Acute Assessment and plan: Patient currently receiving Senokot/Miralax PRN. States having good BM's. MOnitor Qualifiers: Constipation type: unspecified constipation type Qualified Code(s): K59.00 - Constipation, unspecified (3) Cancer associated pain Current Visit: Yes Status: Acute Assessment and plan: Has [place] for moderate pain and Oxycodone for more sever pain. Has utilized [place] x2 last 24 hours, Oxycodone x1 last 24 hours. MOnitor (4) Goals of care, counseling/discussion Current Visit: No Status: Acute Assessment and plan: Patient had previously completed POA with us, and Ki is primary agent, and daughter Halima is alternate. Long discussion regarding goals of care. Domi becomes very quiet and obviously makes her very uncomfortable discussing her prognosis. Ultimate fear is care of grandson who they have cared for since age 2, when his father . She understands that cancer is terminal, but states she wants to continue treatment to extend her life as long as possible. Discussed code status at length, she will consider but at this time remains full code and would desire short term intubation, but would not want sustained on life support alf or have trach. She is willing to have home health if her insurance will allow visit - would like to restart [facility]. Will call and discuss her care with them in am. She ultimately would benefit from home palliative, however, [facility] and [facility] who have strong home palliative programs, do not provide service to their area. Will f/u in am. (5) COPD (chronic obstructive pulmonary disease) Current Visit: No Status: Chronic Qualifiers: COPD type: unspecified COPD Qualified Code(s): J44.9 - Chronic obstructive pulmonary disease, unspecified (6) Healthcare-associated pneumonia Current Visit: No Status: Acute (7) Metastatic lung cancer (metastasis from lung to other site) Current Visit: Yes Status: Acute Assessment and plan: Followed by [facility] - currently received palliative thoracic radiation. Qualifiers: Qualified Code(s): C34.90 - Malignant neoplasm of unspecified part of unspecified bronchus or lung Palliative-CN HPI - Data of Consult Consult date: 05/29/17 Requesting Physician: Heaven Perkins CNP Primary Care Provider: Ron Ward MD - Consult Narrative History of present illness: Ms. Keenan is a 61 year old female known to me from previous visit last year, who has history of metastatic lung cancer, and was admitted for increasing shortness of breath. Patient has had multiple hospital visits (12 admissions in the past 6 months) for exacerbations of COPD, shortness of breath , and obstructive pneumonia. She was discharged to [facility] last week, but returned to hospital again after a few days. She was admitted and currently being treated for healthcare associated pneumonia and . Receiving IV atb/steroids/bronchodilators. States breathing has improved. Other medical history includes: hypertension, anxiety/depression. Palliative worked with pt last year, when she had burst fracture of thoracic vertebrae, and we assisted with her pain management at that visit. She lives at home with her Ki , and they are raising 12 y/o grandson after they had son that . Upon my visit, she is pleasant, slightly anxious, sitting up on side of bed. She states pain under good control with current medications, and is tolerating radiation. , Ki is present. Appetite good. + BM's. CC: Heaven Perkins CNP Past Med Surg Social Fam HX - Past Medical History Medical history: cancer, COPD, hypertension Psychiatric history: anxiety, depression - Past Surgical History Surgical History: hysterectomy - Social History Smoking Status: Current every day smoker Smokeless Tobacco Status: No Alcohol use: none Drug use: none - Family History Sister Adopted: No Family Member Ethnicity: Non- Living Status: Still Living Age at : 58 Hx Family Cardiac Disorders: Yes (HTN) Hx Family Respiratory Disorders: No Hx Family Cancer: Yes (Lymphoma) Hx Family GI Disorders: No Hx Family Genitourinary Disorders: No Hx Family Endocrine Disorder: No Hx Family Musculoskeletal Disorders: No Hx Family Neuromuscular Disorders: No Hx Family Neurologic Disorders: No Hx Family HEENT Disorders: No Hx Family Autoimmune Disorders: No Hx Family Reproductive Disorders: No Hx Family Psychosocial Disorders: No Hx Family Medical Disorders: No Mother Name: 2 sister Crystal/Queenie Family Member Ethnicity: Non- Living Status: Hx Family Cardiac Disorders: Yes (Aneurysm, HTN) Hx Family Respiratory Disorders: Yes (COPD) Hx Family Cancer: No Hx Family GI Disorders: No Hx Family Genitourinary Disorders: No Hx Family Endocrine Disorder: No Hx Family Musculoskeletal Disorders: No Hx Family Neuromuscular Disorders: No Hx Family Neurologic Disorders: No Hx Family HEENT Disorders: No Hx Family Reproductive Disorders: No Hx Family Psychosocial Disorders: No Father Adopted: [place]: Alexander Tafoya Family Member Ethnicity: Non- Living Status: Hx Family Cardiac Disorders: Yes (CHF, CAD, [place]) Hx Family Respiratory Disorders: Yes (mother copd) Hx Family Cancer: No Hx Family GI Disorders: No Hx Family Genitourinary Disorders: No Hx Family Endocrine Disorder: No Hx Family Musculoskeletal Disorders: Yes Hx Family Neuromuscular Disorders: No Hx Family Neurologic Disorders: No Hx Family HEENT Disorders: No Hx Family Autoimmune Disorders: No Hx Family Reproductive Disorders: No Hx Family Psychosocial Disorders: No Medications and Allergies DULoxetine [Cymbalta] 30 mg PO HS 02/15/16 [History] Trazodone HCl 200 mg PO HS 02/15/16 [History] Albuterol Sulfate [Albuterol Inhaler] 2 puff IH Q6H PRN 10/14/16 [History] Budesonide/Formoterol 160/4.5 [Symbicort 160/4.5] 2 puff IH BIDR 10/14/16 [ History] Oxygen 2 l NS AD 10/14/16 [History] Tiotropium [Spiriva] 18 mcg IH DAILY 10/14/16 [History] Ascorbate Calcium [Vitamin C] 500 mg PO DAILY 12/14/16 [History] Polyethylene Glycol 3350 [MiraLAX] 17 gm PO DAILY PRN #30 powd.pack 12/22/16 [Rx ] Sennosides/Docusate Sodium [Senna-Docusate Sodium Tablet] 2 each PO BID PRN #60 tablet 12/22/16 [Rx] Calcium Carbonate/Vitamin D3 [Calcium 500 + Vit D Caplet] 2 each PO DAILY #60 tablet 12/26/16 [Rx] Cholecalciferol (D-3) [Vitamin D] 5,000 unit PO DAILY 02/02/17 [History] Melatonin [Melatin] 3 mg PO HS 02/02/17 [History] Albuterol Neb [Proventil Neb] 2.5 mg IH Q6H PRN 7 Days #30 vial 05/04/17 [Rx] Ipratropium/Albuterol Neb [Duoneb] 3 ml IH Q4HR 30 Days vial.neb 05/15/17 [Rx] Carvedilol 12.5 mg PO BID #60 tab 05/23/17 [Rx] GuaiFENesin ER [Mucinex] 600 mg PO BID #60 tbbp.12hr 05/23/17 [Rx] LORazepam [Ativan] 0.5 mg PO BID PRN 7 Days #14 tablet 05/23/17 [Rx] OxyCODONE Immed Rel [Roxicodone 10 MG] 10 mg PO TID PRN 7 Days #21 tablet [Rx] hydrALAZINE [HydrALAZINE] 25 mg PO Q8HR #90 tablet 05/23/17 [Rx] predniSONE [PredniSONE] See Taper PO DAILY #126 tablet 05/23/17 [Rx] 3 Allergy/AdvReac Type Severity Reaction Status Date / Time No Known Allergies Allergy Verified 05/27/17 08:12 All systems: reviewed and no additional remarkable complaints except as stated ( anxiety, shortness of breath at rest, nonproductive cough, decreased appetite,) Palliative Care-Exam - Constitutional Vitals: Temp Pulse Resp BP Pulse Ox 98.6 F 109 16 139/75 98 05/29/17 10:44 05/29/17 10:44 05/29/17 11:33 05/29/17 10:44 05/29/17 11:33 General appearance: Present: no acute distress - Head Head Exam: Present: normal inspection, normocephalic - Eye Eye exam: Present: normal appearance, PERRL - Respiratory Respiratory exam: Present: decreased breath sounds, CTAB - Cardiovascular Cardiovascular exam: Present: +S1, +S2 - GI/Abdominal Exam GI/Abdominal exam: Present: normal bowel sounds, soft - Extremities Exam Extremities exam: Present: normal capillary refill, normal inspection - Psychiatric Psychiatric exam: Present: anxious - Skin Skin exam: Present: dry, pallor, warm Internal Medicine - CN: Reslt - Labs CBC & Chem 7: 05/28/17 04:18 05/29/17 04:07 Labs: BMP 05/29/17 04:07 Sodium 139 Potassium 4.3 Chloride 101 Carbon Dioxide 33 H BUN 19 Creatinine 0.42 L Glucose 171 H Calcium 8.9 - ABG Interpretation ABG results: PT/INR, D-dimer PT 10.0 Seconds (9.4-12.1) 05/25/17 19:06 Consult Discharge Plan - Plan Referrals: Ron Ward MD [Primary Care Provider] - Palliative Quality Palliative Quality: Screen for Code Status: Yes, Screen for Goals of Care: Yes, Screen for Pain: Yes, If Pain Regimen Started, Initiate Bowel Regimen: Yes, Screen for Nausea/Vomitting: Yes
[2017-05-29] MEDS: Albuterol 2.5 MG/3 ML NEBULIZER IH PRN (14:15)
[2017-05-29] MEDS: *HR* OxyCODONE Immed Rel 5 MG TABLET PO PRN (15:27)
[2017-05-29 16:14] LABS: Basophils % 0.4 %; Hematocrit 36.5 % (35.3-44.9); Hemoglobin 11.5 g/dL (11.5-15.4); Immature Granulocytes % 0.9 % (0-4); Lymphocytes # 0.1 K/mcL (0.6-4.6); Lymphocytes % 0.7 %; Mean Corpuscular HGB Conc 31.5 g/dL (31.6-35.5); Mean Corpuscular Hemoglobin 29.8 pg (28.0-33.3); Mean Corpuscular Volume 94.6 fL (83.0-100.0); Mean Platelet Volume 10.5 fL (9.4-12.4); Monocytes # 0.2 K/mcL (0.0-1.3); Monocytes % 2.3 %; Neutrophils # 9.4 K/mcL (1.6-8.9); Nucleated Red Blood Cells 0.2 /100 WBC (0); Platelet Count 230 K/mcL (140-400); Red Blood Count 3.86 M/mcL (3.82-4.97); Red Cell Distribution Width 15.3 % (11.5-14.5); Segmented Neutrophils % 95.7 %
--- NOTE | 2017-05-29 16:49 | Internal Med Progress Note ---
Date of Encounter: 05/29/17 Time of Encounter: 10:20 - Assessment and plan (1) HCAP (healthcare-associated pneumonia) Current Visit: Yes Status: Acute Assessment and plan: Bacterial. One dose Vanco given in the ER then discontinued. sputum culture prelim with gram-positive cocci, final still pending 05/29/17. Blood cultures negative 2. Patient is afebrile, normotensive, no signs of sirs or sepsis. Resps are labored, which is pretty normal for this pt. She is requiring supplemental 02 at her baseline demand. Continue dual antibiotic therapy with cefepime and Levaquin. Oxygen as needed to maintain sats greater than 92% Continue nebulizer treatments, Symbicort, Mucinex, IV Solumedrol (2) SIRS (systemic inflammatory response syndrome) Current Visit: No Status: Acute Assessment and plan: Pt did meet SIRS criteria with elevated WBC, sinus tachycardia and source of infection as pneumonia on admission. Patient now without tachycardia, no leukocytosis, pulse > 90. Resolved. (3) HTN (hypertension) Current Visit: Yes Status: Chronic Assessment and plan: Well-controlled. Continue home medications. Monitor vital signs per admission orders. Qualifiers: Hypertension type: essential hypertension Qualified Code(s): I10 - Essential (primary) hypertension (4) Chronic respiratory failure with hypoxia Current Visit: No Status: Chronic Assessment and plan: Patient currently at 2 L by nasal cannula. Titrate to maintain sats greater than 92%. This appears to be patient's baseline. Patient has home O2 at 2 L via nasal cannula continuous. (5) Small cell lung cancer, right lower lobe Current Visit: Yes Status: Chronic Assessment and plan: Per patient history. Patient went to radiation again today. Patient follows with [facility]. Follow outpatient. Discussed admission with oncology [employer], they do not feel this time there is need for consultation. (6) COPD exacerbation Current Visit: Yes Status: Acute Assessment and plan: Plan as above. Patient's lungs are diminished throughout posterior [place]. Mild respiratory distress at rest. Patient without wheezing, rhonchi, rales. Patient reports improvement with nebulizer treatments. - Time Spent With Patient Total time spent is greater than 50% in coordination of care (as documented) at patient's floor/unit and/or counseling patient: less than 15 minutes - Subjective Interval history: Patient was seen and assessed at 10:20 AM. She reports productive cough with yellow sputum. Pt was agreeable to speak with palliative care to see if she can spend more time at home than in the hospital. She also is to have radiation at the cancer Center again today at 1:15 PM. She denies chest pain, nausea, vomiting, diarrhea, abdominal pain, headache or dizziness. - Constitutional Vitals: Temp Pulse Resp BP Pulse Ox 98.6 F 96 18 150/85 96 05/29/17 10:44 05/29/17 16:19 05/29/17 16:00 05/29/17 16:19 05/29/17 16:19 General appearance: Present: cachectic, cooperative, mild distress, A&O X 3, pleasant, underweight, answers questions appropriately - Head Head exam: Present: atraumatic, normal inspection, normocephalic - Eye Eye exam: Present: normal appearance, conjuntiva pink, sclera anicteric - Neck Neck exam general surgery: Present: supple, trachea midline. Absent: lymphadenopathy - Respiratory Respiratory exam: Present: decreased breath sounds, CTAB, respiratory distress. Absent: accessory muscle use, rales, rhonchi, wheezes - Cardiovascular Cardiovascular exam: Present: RRR, +S1, +S2. Absent: diastolic murmur, gallop, rubs, systolic murmur - GI/Abdominal GI/Abdominal exam: Present: normal bowel sounds, soft. Absent: distended, hepatomegaly, tenderness - Extremities Exam Extremities exam: Present: normal capillary refill, normal inspection, warm, radial pulses palpable and symmetrical. Absent: calf tenderness, cyanotic, pedal edema, tenderness - Neurological Exam Neurological exam: Present: alert, oriented X3, no focal deficits. Absent: facial droop, speech deficit - Skin Skin exam: Present: dry, intact, normal color, warm. Absent: rash Internal Medicine: Result - Labs CBC & Chem 7: 05/29/17 04:07 05/29/17 04:07 Labs: Short CBC 05/29/17 Range/Units 04:07 WBC 9.8 (4.3-11.1) K/mcL Hgb 11.5 (11.5-15.4) g/dL Hct 36.5 (35.3-44.9) % Plt Count 230 (140-400) K/mcL BMP 05/29/17 04:07 Sodium 139 Potassium 4.3 Chloride 101 Carbon Dioxide 33 H BUN 19 Creatinine 0.42 L Glucose 171 H Calcium 8.9 - ABG Interpretation ABG results: PT/INR, D-dimer PT 10.0 Seconds (9.4-12.1) 05/25/17 19:06 Consult Discharge Plan - Plan Referrals: Ron Ward MD [Primary Care Provider] -
[2017-05-29 17:16] LABS: Platelet Clumps Few (Not Present); Platelet Estimate Normal (Normal)
[2017-05-29] MEDS: Ondansetron 4 MG/2 ML VIAL IVP PRN (21:14)
[2017-05-29] MEDS: Melatonin 3 MG TABLET PO SCH (21:15)
[2017-05-29] MEDS: traZODone 50 MG TABLET PO SCH (21:15)
[2017-05-30] MEDS: Ipratropium/Albuterol Neb 3 ML IH SCH ×6 (00:03→20:30)
[2017-05-30] MEDS: MethylPREDNISolone 40 MG/ML VIAL IVP SCH ×4 (01:04→16:33)
[2017-05-30] MEDS: hydrALAZINE 25 MG TABLET PO SCH ×3 (01:04→16:34)
[2017-05-30] MEDS: *HR* Enoxaparin 40 MG/0.4 ML SYRINGE SQ SCH (05:46)
[2017-05-30] MEDS: Cefepime HCl 1,000 MG in Water for inj. (sterile) 20 ML 10 ML IVPB SCH ×2 (05:47→16:33)
[2017-05-30 07:14] LABS: Hematocrit 36.7 % (35.3-44.9); Hemoglobin 11.4 g/dL (11.5-15.4); Mean Corpuscular HGB Conc 31.1 g/dL (31.6-35.5); Mean Corpuscular Hemoglobin 29.3 pg (28.0-33.3); Mean Corpuscular Volume 94.3 fL (83.0-100.0); Mean Platelet Volume 9.6 fL (9.4-12.4); Platelet Count 237 K/mcL (140-400); Red Blood Count 3.89 M/mcL (3.82-4.97); Red Cell Distribution Width 15.1 % (11.5-14.5)
[2017-05-30 07:28] LABS: BUN/Creatinine Ratio 32 (6-26); Blood Urea Nitrogen 14 mg/dL (8-23); Calcium 8.1 mg/dL (8.6-10.3); Carbon Dioxide 32 mEq/L (23-29); Chloride 101 mEq/L (98-107); Glucose 180 mg/dL (70-105); Osmolality,Calculated 289 (280-300); Potassium 4.4 mEq/L (3.5-5.1); Sodium 137 mEq/L (136-145); eGFR For African Americans > 60 (> 60); eGFR For Non-African Americans > 60 (> 60)
[2017-05-30] MEDS: Budesonide/Formoterol 160/4.5 MDI IH SCH ×2 (07:37→20:32)
[2017-05-30] MEDS: Tiotropium 18 MCG inhalation IH SCH (07:38)
[2017-05-30] MEDS: Cholecalciferol (D-3) 1,000 UNIT TABLET PO SCH (08:28)
[2017-05-30] MEDS: Ascorbic Acid 500 MG TABLET PO SCH (08:28)
[2017-05-30] MEDS: *HR* Promethazine 25 MG/ML VIAL IVP PRN ×3 (08:34→18:47)
[2017-05-30] MEDS: Levofloxacin 750 MG/150 ML 750 MG/150 ML BAG IVPB SCH (11:30)
[2017-05-30] MEDS: *HR* HYDROcodone/Acet 5/325 mg TABLET PO PRN (11:32)
[2017-05-30 11:35] LABS: Monocytes # 0.2 K/mcL (0.0-1.3); Neutrophils # 8.5 K/mcL (1.6-8.9); Platelet Estimate Normal (Normal); Toxic Granulation Present (Not Present)
[2017-05-30] MEDS: *HR* LORazepam 0.5 MG TABLET PO PRN ×2 (11:56→20:19)
[2017-05-30] MEDS: Ondansetron 4 MG/2 ML VIAL IVP PRN (13:30)
--- NOTE | 2017-05-30 14:14 | Palliative Progress Note ---
Date of Encounter: 05/30/17 Time of Encounter: 14:00 - Assessment and plan (1) Nausea Current Visit: Yes Status: Acute Assessment and plan: Continue antiemetics. Has utilized Ondanset[place] x2 last 24 hours. She feels some reflux is causing this - will add Omeprazole. (2) Anxiety Current Visit: No Status: Chronic (3) Constipation Current Visit: No Status: Acute Assessment and plan: Continue Senokot/Miralax as needed. Qualifiers: Constipation type: unspecified constipation type Qualified Code(s): K59.00 - Constipation, unspecified (4) Cancer associated pain Current Visit: Yes Status: Acute Assessment and plan: Patient continues with [place] for mod pain and Oxycodone for more severe pain. Has utilized [place] x2 and Oxycodone x1 last 24 hours. (5) Goals of care, counseling/discussion Current Visit: No Status: Acute Assessment and plan: Continue goals of care discussion and discharge planning today. I Spoke with Oksana case picker for [facility] regarding frequent admission and pt states that home health was recently discontinued. Oksana states that pt has only utilized 14 out of 180 visits, so home health would be covered. Spoke with [facility], stated that she was discharged at end of last benefit period but now eligible for more visits. She refuses to go back to rehab, but is agreeable to home health. However, had the discussion that support is limited, and that insurance does not cover home respiratory visits. There is no palliative home care program that services their area. Discussed code status again, and she states that she did not discuss this with her , but intends to. Remains to be full code at this time. There was no family present at this discussion. Unfortunately, not much else to offer - she does not want hospice at this time and wants to finish radiation and speak with oncologist about any further treatment. (6) COPD (chronic obstructive pulmonary disease) Current Visit: No Status: Chronic Qualifiers: COPD type: unspecified COPD Qualified Code(s): J44.9 - Chronic obstructive pulmonary disease, unspecified (7) Healthcare-associated pneumonia Current Visit: No Status: Acute (8) Metastatic lung cancer (metastasis from lung to other site) Current Visit: Yes Status: Acute - Time Spent With Patient Total time spent is greater than 50% in coordination of care (as documented) at patient's floor/unit and/or counseling patient: - Subjective Interval history: Patient awake and alert - c/o some heartburn and nausea. Has been to radiation already today. No visitors present. - Constitutional Vitals: Abnormal lab results Hgb 11.4 g/dL (11.5-15.4) L 05/30/17 06:32 MCHC 31.1 g/dL (31.6-35.5) L 05/30/17 06:32 RDW 15.1 % (11.5-14.5) H 05/30/17 06:32 Lymphocytes # 0.1 K/mcL (0.6-4.6) L 05/29/17 04:07 Nucleated RBCs/100 WBC 0.2 /100 WBC (0) H 05/29/17 04:07 Toxic Granulation Present (Not Present) A 05/30/17 06:32 Clumped Platelets Few (Not Present) A 05/29/17 04:07 VBG pH 7.53 pH Units (7.32-7.42) H 05/25/17 19:21 VBG pCO2 38 mmHg (41-51) L 05/25/17 19:21 VBG pO2 188 mmHg (25-50) H 05/25/17 19:21 VBG HCO3 32 mEq/L (21-27) H 05/25/17 19:21 Carbon Dioxide 32 mEq/L (23-29) H 05/30/17 06:32 Creatinine 0.44 mg/dL (0.60-1.20) L 05/30/17 06:32 BUN/Creatinine Ratio 32 (6-26) H 05/30/17 06:32 Glucose 180 mg/dL (70-105) H 05/30/17 06:32 Calcium 8.1 mg/dL (8.6-10.3) L 05/30/17 06:32 Serum Total Protein 5.3 g/dL (6.4-8.9) L 05/25/17 19:06 Albumin 3.4 g/dL (3.5-5.7) L 05/25/17 19:06 Globulin 1.9 g/dL (2.4-3.5) L 05/25/17 19:06 General appearance: Present: no acute distress - Respiratory Respiratory exam: Present: decreased breath sounds, CTAB - Cardiovascular Cardiovascular exam: Present: +S1, +S2 - GI/Abdominal GI/Abdominal exam: Present: distended, normal bowel sounds, soft - Extremities Exam Extremities exam: Present: normal capillary refill, normal inspection - Neurological Exam Neurological exam: Present: alert, oriented X3, strengths equal and symetr throughout - Psychiatric Psychiatric exam: Present: anxious - Skin Skin exam: Present: dry, pallor, warm Palliative Quality Palliative Quality: Screen for Code Status: Yes, Screen for Goals of Care: Yes, Screen for Pain: Yes, If Pain Regimen Started, Initiate Bowel Regimen: Yes, Screen for Nausea/Vomitting: Yes - Labs CBC & Chem 7: 05/30/17 06:32 05/30/17 06:32 Labs: Laboratory Results - last 24 hr 05/29/17 05/30/17 05/30/17 04:07 06:32 06:32 WBC 9.8 8.7 RBC 3.86 3.89 Hgb 11.5 11.4 L Hct 36.5 36.7 MCV 94.6 94.3 MCH 29.8 29.3 MCHC 31.5 L 31.1 L RDW 15.3 H 15.1 H Plt Count 230 237 MPV 10.5 9.6 Immature Gran % 0.9 Seg Neutrophils % 95.7 94.0 Band Neutrophils % 4.0 Lymphocytes % 0.7 Monocytes % 2.3 2.0 Eosinophils % 0.0 Basophils % 0.4 Neutrophils # 9.4 H 8.5 Lymphocytes # 0.1 L Monocytes # 0.2 0.2 Eosinophils # 0.0 Basophils # 0.0 Nucleated RBCs/100 WBC 0.2 H Toxic Granulation Present A Platelet Estimate Normal Normal Clumped Platelets Few A Sodium 137 Potassium 4.4 Chloride 101 Carbon Dioxide 32 H BUN 14 Creatinine 0.44 L Est GFR ( Amer) > 60 Est GFR (Non-Af Amer) > 60 BUN/Creatinine Ratio 32 H Glucose 180 H Calculated Osmolality 289 Calcium 8.1 L - ABG Interpretation ABG results: PT/INR, D-dimer PT 10.0 Seconds (9.4-12.1) 05/25/17 19:06 Consult Discharge Plan - Plan Referrals: Ron Ward MD [Primary Care Provider] -
[2017-05-30] MEDS: Albuterol 2.5 MG/3 ML NEBULIZER IH PRN ×2 (16:23→18:21)
[2017-05-30] MEDS ORDERED: Dextrose Gel 15 GM/37.5 ML TUBE PO PRN ×2 (18:26)
[2017-05-30] MEDS ORDERED: *HR* Dextrose 50 % in Water (Syg) 50 ML SYRINGE IVP PRN (18:26)
[2017-05-30] MEDS ORDERED: D5% in Water 1,000 ML IVC PRN (18:26)
[2017-05-30] MEDS ORDERED: Insulin LISPRO 300 UNITS/3 ML VIAL SQ SCH ×2 (18:30→21:00)
--- NOTE | 2017-05-30 18:40 | Internal Med Progress Note ---
Date of Encounter: 05/30/17 Time of Encounter: 12:35 - Assessment and plan (1) HCAP (healthcare-associated pneumonia) Current Visit: Yes Status: Acute Assessment and plan: Bacterial. One dose Vanco given in the ER then discontinued. sputum culture prelim with gram-positive cocci, final still pending 05/30/17. Blood cultures negative 2. Patient is afebrile, normotensive, no signs of sirs or sepsis. Resps are mildly labored, which is pretty normal for this pt. patient is at her baseline O2 demand of 2 L via nasal cannula. Patient is fearful that she is not getting better. Patient states she is ready go home, does not want to be re-admitted. Pulmonology has been consulted for recommendations. Continue dual antibiotic therapy with cefepime and Levaquin. Oxygen as needed to maintain sats greater than 92% Continue nebulizer treatments, Symbicort, Mucinex, IV Solumedrol (2) SIRS (systemic inflammatory response syndrome) Current Visit: No Status: Resolved (3) HTN (hypertension) Current Visit: Yes Status: Chronic Assessment and plan: Chronic. Mild hypertension noted. Continue home medications. Will add lisinopril. Continue to monitor vitals tomorrow. Qualifiers: Hypertension type: essential hypertension Qualified Code(s): I10 - Essential (primary) hypertension (4) Chronic respiratory failure with hypoxia Current Visit: No Status: Chronic Assessment and plan: Patient at baseline O2 use. Titrate to maintain sats greater than 92%. Patient has home O2 at 2 L via nasal cannula continuous. (5) Small cell lung cancer, right lower lobe Current Visit: Yes Status: Chronic Assessment and plan: Per patient history. Patient went to radiation again today, we will have radiation again tomorrow. Patient follows with [facility]. Follow outpatient. 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 Patient has also been evaluated by palliative care. Unfortunately, there are not many options as there is no respiratory home care in the area. Patient is still declining hospice. She is eligible for home health care visits. (6) COPD exacerbation Current Visit: Yes Status: Acute Assessment and plan: Plan as above. Patient's lungs are diminished throughout posterior putnam. Mild respiratory distress at rest. Patient without wheezing, rhonchi, rales. Patient reports improvement with nebulizer treatments. Patient's respiratory status is not improving. Pulmonology has been consulted for recommendations prior to discharge. - Time Spent With Patient Total time spent is greater than 50% in coordination of care (as documented) at patient's floor/unit and/or counseling patient: less than 15 minutes - Subjective Interval history: Patient was seen and assessed at 1235. She reports productive cough with yellow sputum. She also is to have radiation at the cancer Center again today at 0900. She denies chest pain, nausea, vomiting, diarrhea, abdominal pain, headache or dizziness. She does report new symptoms of burning intermittent chest with eating, emesis after eating, sometimes feels as if food is stuck. Omeprazole started. I stopped back in the room later in the evening, was at bedside. Had multiple questions about Nicotrol Inhaler, will write prescription prior to discharge. Patient also has MRI scheduled outpatient tomorrow, explained to them that they would not be able to get the MRI done and would have to reschedule after patient is out of the hospital for one day. Have discussed this with oncology and PE, she is in agreement. - Constitutional Vitals: Temp Pulse Resp BP Pulse Ox 98.2 F 95 20 162/98 96 05/30/17 15:23 05/30/17 15:23 05/30/17 18:22 05/30/17 15:23 05/30/17 18:22 General appearance: Present: cachectic, cooperative, mild distress, A&O X 3, pleasant, underweight, answers questions appropriately - Head Head exam: Present: atraumatic, normal inspection, normocephalic - Eye Eye exam: Present: normal appearance, conjuntiva pink, sclera anicteric - Neck Neck exam general surgery: Present: supple, trachea midline. Absent: lymphadenopathy - Respiratory Respiratory exam: Present: CTAB. Absent: accessory muscle use, rales, rhonchi, wheezes - Cardiovascular Cardiovascular exam: Present: RRR, +S1, +S2. Absent: diastolic murmur, gallop, rubs, systolic murmur - GI/Abdominal GI/Abdominal exam: Present: normal bowel sounds, soft, no peritoneal signs. Absent: distended, tenderness - Extremities Exam Extremities exam: Present: warm, radial pulses palpable and symmetrical. Absent : calf tenderness, cyanotic, pedal edema - Neurological Exam Neurological exam: Present: CN II-XII intact, oriented X3, no focal deficits. Absent: pronater drift, facial droop, speech deficit - Skin Skin exam: Present: dry, intact, normal color, warm. Absent: rash Internal Medicine: Result - Labs CBC & Chem 7: 05/30/17 06:32 05/30/17 06:32 Labs: Short CBC 05/30/17 Range/Units 06:32 WBC 8.7 (4.3-11.1) K/mcL Hgb 11.4 L (11.5-15.4) g/dL Hct 36.7 (35.3-44.9) % Plt Count 237 (140-400) K/mcL Neutrophils # 8.5 (1.6-8.9) K/mcL BMP 05/30/17 06:32 Sodium 137 Potassium 4.4 Chloride 101 Carbon Dioxide 32 H BUN 14 Creatinine 0.44 L Glucose 180 H Calcium 8.1 L - ABG Interpretation ABG results: PT/INR, D-dimer PT 10.0 Seconds (9.4-12.1) 05/25/17 19:06 Consult Discharge Plan - Plan Referrals: Ron Ward MD [Primary Care Provider] -
[2017-05-30] MEDS: traZODone 50 MG TABLET PO SCH (20:16)
[2017-05-30] MEDS: Melatonin 3 MG TABLET PO SCH (20:16)
[2017-05-31] MEDS: Ipratropium/Albuterol Neb 3 ML IH SCH ×6 (00:11→19:57)
[2017-05-31] MEDS: hydrALAZINE 25 MG TABLET PO SCH ×3 (00:14→16:07)
[2017-05-31] MEDS: MethylPREDNISolone 40 MG/ML VIAL IVP SCH ×3 (00:14→20:34)
[2017-05-31 05:05] LABS: Basophils % 0.1 %; Hematocrit 35.2 % (35.3-44.9); Hemoglobin 11.3 g/dL (11.5-15.4); Immature Granulocytes % 0.7 % (0-4); Lymphocytes # 0.1 K/mcL (0.6-4.6); Lymphocytes % 1.6 %; Mean Corpuscular HGB Conc 32.1 g/dL (31.6-35.5); Mean Corpuscular Hemoglobin 29.7 pg (28.0-33.3); Mean Corpuscular Volume 92.6 fL (83.0-100.0); Mean Platelet Volume 9.7 fL (9.4-12.4); Monocytes # 0.2 K/mcL (0.0-1.3); Monocytes % 2.7 %; Platelet Count 225 K/mcL (140-400); Red Cell Distribution Width 14.9 % (11.5-14.5); Segmented Neutrophils % 94.9 %
[2017-05-31 05:09] LABS: Neutrophils # 8.5 K/mcL (1.6-8.9)
[2017-05-31 05:20] LABS: BUN/Creatinine Ratio 35 (6-26); Blood Urea Nitrogen 15 mg/dL (8-23); Calcium 8.4 mg/dL (8.6-10.3); Carbon Dioxide 32 mEq/L (23-29); Chloride 98 mEq/L (98-107); Glucose 257 mg/dL (70-105); Osmolality,Calculated 292 (280-300); Potassium 4.1 mEq/L (3.5-5.1); Sodium 136 mEq/L (136-145); eGFR For African Americans > 60 (> 60); eGFR For Non-African Americans > 60 (> 60)
[2017-05-31] MEDS: Cefepime HCl 1,000 MG in Water for inj. (sterile) 20 ML 10 ML IVPB SCH ×2 (05:36→16:58)
[2017-05-31] MEDS: *HR* Enoxaparin 40 MG/0.4 ML SYRINGE SQ SCH (05:37)
[2017-05-31 05:42] LABS: Platelet Estimate Normal (Normal)
[2017-05-31] MEDS: Budesonide/Formoterol 160/4.5 MDI IH SCH ×2 (07:19→19:57)
[2017-05-31] MEDS: Tiotropium 18 MCG inhalation IH SCH (07:20)
--- NOTE | 2017-05-31 08:02 | Palliative Progress Note ---
Date of Encounter: 05/31/17 Time of Encounter: 07:35 - Assessment and plan (1) Acute and chronic respiratory failure Current Visit: No Status: Resolved Assessment and plan: Getting slowly better. Qualifiers: Respiratory failure complication: hypoxia Qualified Code(s): J96.21 - Acute and chronic respiratory failure with hypoxia (2) Constipation Current Visit: No Status: Acute Assessment and plan: No bowel movements are recorded. Patient has only gotten 1 when necessary dose of the N up. I will go ahead and schedule it. Qualifiers: Constipation type: unspecified constipation type Qualified Code(s): K59.00 - Constipation, unspecified (3) COPD (chronic obstructive pulmonary disease) Current Visit: No Status: Chronic Assessment and plan: Continue breathing treatments Qualifiers: COPD type: unspecified COPD Qualified Code(s): J44.9 - Chronic obstructive pulmonary disease, unspecified (4) Goals of care, counseling/discussion Current Visit: No Status: Acute Assessment and plan: Patient states that she has discussed with her wishes to remain a full code. As of care are recently to get home. Deal of effort has gone into trying to find a home palliative program for this patient that would allow her to get [facility] respiratory therapy when she needed to prevent rehospitalization. However these programs do not exist currently. Does not wish to have hospice , and this greatly reduces her capability to stay at home firmly. I am afraid that repeat hospitalizations are going to continue until the patient can no longer anticipating any form of answer therapy. (5) Pain Current Visit: No Status: Acute Assessment and plan: Under control at this time continue current meds (6) Small cell 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 Current Visit: No Status: Chronic Assessment and plan: Agent still interested in getting any in all therapies available from oncology. In per [facility]. - Time Spent With Patient Total time spent is greater than 50% in coordination of care (as documented) at patient's floor/unit and/or counseling patient: - Subjective Interval history: Breathing, is feeling a little bit better per the patient scattered breathing treatment. Patient states also doing a little bit of trouble with that feeling of things getting hung up in her chest. States she did have a discussion with her regarding CODE STATUS and it remains full. Please see the assessment and plan. - Constitutional Vitals: Abnormal lab results RBC 3.80 M/mcL (3.82-4.97) L 05/31/17 04:30 Hgb 11.3 g/dL (11.5-15.4) L 05/31/17 04:30 Hct 35.2 % (35.3-44.9) L 05/31/17 04:30 RDW 14.9 % (11.5-14.5) H 05/31/17 04:30 Lymphocytes # 0.1 K/mcL (0.6-4.6) L 05/31/17 04:30 Nucleated RBCs/100 WBC 0.2 /100 WBC (0) H 05/29/17 04:07 Toxic Granulation Present (Not Present) A 05/30/17 06:32 Clumped Platelets Few (Not Present) A 05/29/17 04:07 VBG pH 7.53 pH Units (7.32-7.42) H 05/25/17 19:21 VBG pCO2 38 mmHg (41-51) L 05/25/17 19:21 VBG pO2 188 mmHg (25-50) H 05/25/17 19:21 VBG HCO3 32 mEq/L (21-27) H 05/25/17 19:21 Carbon Dioxide 32 mEq/L (23-29) H 05/31/17 04:30 Creatinine 0.43 mg/dL (0.60-1.20) L 05/31/17 04:30 BUN/Creatinine Ratio 35 (6-26) H 05/31/17 04:30 Glucose 257 mg/dL (70-105) H 05/31/17 04:30 Calcium 8.4 mg/dL (8.6-10.3) L 05/31/17 04:30 Serum Total Protein 5.3 g/dL (6.4-8.9) L 05/25/17 19:06 Albumin 3.4 g/dL (3.5-5.7) L 05/25/17 19:06 Globulin 1.9 g/dL (2.4-3.5) L 05/25/17 19:06 General appearance: Present: no acute distress - Head Head exam: Present: atraumatic, normal inspection - Eye Eye exam: Present: normal appearance - Neck Neck exam: Present: normal inspection - Respiratory Respiratory exam: Present: decreased breath sounds - Cardiovascular Cardiovascular exam: Present: RRR - GI/Abdominal GI/Abdominal exam: Present: normal bowel sounds, soft. Absent: tenderness - Extremities Exam Extremities exam: Present: normal inspection. Absent: tenderness - Neurological Exam Neurological exam: Present: alert, oriented X3 - Psychiatric Psychiatric exam: Absent: agitated, anxious - Skin Skin exam: Present: dry, warm Palliative Quality Palliative Quality: Screen for Code Status: Yes, Screen for Goals of Care: Yes, Screen for Pain: Yes, If Pain Regimen Started, Initiate Bowel Regimen: Yes, Screen for Nausea/Vomitting: Yes - Labs CBC & Chem 7: 05/31/17 04:30 05/31/17 04:30 Labs: Laboratory Results - last 24 hr 05/30/17 05/31/17 05/31/17 06:32 04:30 04:30 WBC 8.7 9.0 RBC 3.89 3.80 L Hgb 11.4 L 11.3 L Hct 36.7 35.2 L MCV 94.3 92.6 MCH 29.3 29.7 MCHC 31.1 L 32.1 RDW 15.1 H 14.9 H Plt Count 237 225 MPV 9.6 9.7 Immature Gran % 0.7 Seg Neutrophils % 94.0 94.9 Band Neutrophils % 4.0 Lymphocytes % 1.6 Monocytes % 2.0 2.7 Eosinophils % 0.0 Basophils % 0.1 Neutrophils # 8.5 8.5 Lymphocytes # 0.1 L Monocytes # 0.2 0.2 Eosinophils # 0.0 Basophils # 0.0 Toxic Granulation Present A Platelet Estimate Normal Normal Sodium 136 Potassium 4.1 Chloride 98 Carbon Dioxide 32 H BUN 15 Creatinine 0.43 L Est GFR ( Amer) > 60 Est GFR (Non-Af Amer) > 60 BUN/Creatinine Ratio 35 H Glucose 257 H Calculated Osmolality 292 Calcium 8.4 L - ABG Interpretation ABG results: PT/INR, D-dimer PT 10.0 Seconds (9.4-12.1) 05/25/17 19:06 Consult Discharge Plan - Plan Referrals: Ron Ward MD [Primary Care Provider] -
[2017-05-31] MEDS: *HR* Promethazine 25 MG/ML VIAL IVP PRN ×2 (08:09→18:55)
[2017-05-31] MEDS: Levofloxacin 750 MG/150 ML 750 MG/150 ML BAG IVPB SCH (08:10)
[2017-05-31] MEDS: Ascorbic Acid 500 MG TABLET PO SCH (08:16)
[2017-05-31] MEDS: Cholecalciferol (D-3) 1,000 UNIT TABLET PO SCH (08:16)
[2017-05-31] MEDS: Sennosides/Docusate Sodium TABLET PO SCH ×2 (08:21→21:20)
[2017-05-31] MEDS: *HR* HYDROcodone/Acet 5/325 mg TABLET PO PRN (10:32)
[2017-05-31] MEDS: Albuterol 2.5 MG/3 ML NEBULIZER IH PRN ×4 (11:36→22:02)
[2017-05-31] MEDS: *HR* LORazepam 0.5 MG TABLET PO PRN ×2 (14:00→21:27)
[2017-05-31] MEDS ORDERED: MethylPREDNISolone 40 MG/ML VIAL IVP SCH (18:00)
--- NOTE | 2017-05-31 18:21 | Internal Med Progress Note ---
Date of Encounter: 05/31/17 Time of Encounter: 09:50 - Assessment and plan (1) HCAP (healthcare-associated pneumonia) Current Visit: Yes Status: Acute Assessment and plan: Bacterial. sputum culture prelim with gram-positive cocci, final still pending 05/31/17. Blood cultures negative 2. Patient is afebrile, normotensive, no signs of sirs or sepsis. Patient in mild respiratory distress, normal for her. Patient is at her baseline O2 demand of 2 L via nasal cannula. Pulmonology consult is in, I do not see a note from them regarding recommendations. Continue dual antibiotic therapy with cefepime and Levaquin. Oxygen as needed to maintain sats greater than 92% Continue nebulizer treatments, Symbicort, Mucinex, IV Solumedrol, decreasing to 20 mg daily IV. (2) SIRS (systemic inflammatory response syndrome) Current Visit: No Status: Resolved Assessment and plan: Resolved. Patient afebrile, tachycardia, which is normal for her. Patient normotensive. No leukocytosis. (3) HTN (hypertension) Current Visit: Yes Status: Chronic Assessment and plan: Chronic. Lisinopril added, patient appears to have better blood pressure control with it. We will continue. Continue to monitor vital signs. Qualifiers: Hypertension type: essential hypertension Qualified Code(s): I10 - Essential (primary) hypertension (4) Chronic respiratory failure with hypoxia Current Visit: No Status: Chronic Assessment and plan: Patient at baseline O2 use. Titrate to maintain sats greater than 92%. Patient has home O2, will continue after discharge. (5) Small cell lung cancer, right lower lobe Current Visit: Yes Status: Chronic Assessment and plan: Chronic. Patient has had radiation last 3 days. Patient follows with [facility]. Follow outpatient. Discussed admission with oncology RESIDENTIAL SOLAR CONSULTANT, they do not feel this time there is need for consultation. Patient has also been evaluated by palliative care. Unfortunately, there are not many options as there is no respiratory home care in the area. Patient is still declining hospice. She is eligible for home health care visits , will be discharged with [facility]. (6) COPD exacerbation Current Visit: Yes Status: Acute Assessment and plan: Plan as above. Patient's lungs are diminished throughout posterior putnam, wheezing noted in the upper anterior lung putnam this morning. Mild respiratory distress at rest. Patient reports improvement with nebulizer treatments. Patient's respiratory status is slowly improving. Pulmonology has been consulted for recommendations prior to discharge. I do not see a note from them today. (7) Dysphagia Current Visit: Yes Status: Acute Assessment and plan: Patient reports new symptom of dysphagia. She states that she feels like her food is stuck and she feels like she has to vomit to get it back up. Discussed with oncology nurse practitioner I suspected side effect of radiation. She agrees, discussed with oncologist. They recommend Carafate suspension 1 g 3 times daily. Patient has also been started on PPI. We will continue to monitor Qualifiers: Dysphagia type: unspecified Qualified Code(s): R13.10 - Dysphagia, unspecified - Time Spent With Patient Total time spent is greater than 50% in coordination of care (as documented) at patient's floor/unit and/or counseling patient: less than 15 minutes - Subjective Interval history: Patient was seen and assessed at 0950. Patient with cancer Center today for radiation again. She denies chest pain, nausea, vomiting, diarrhea, abdominal pain, headache or dizziness. Patient continues to report that she feels like her food stuck in her chest, discussed with oncology nurse practitioner who recommended Carafate in addition to the PPI. Patient appears slightly better today, she states she is feeling a little bit better, is requesting another day in the hospital. Patient states that he is afraid to take her home since she will just come right back. - Constitutional Vitals: Temp Pulse Resp BP Pulse Ox 98.5 F 104 16 149/91 94 05/31/17 15:40 05/31/17 15:40 05/31/17 15:40 05/31/17 15:40 05/31/17 15:40 General appearance: Present: cachectic, cooperative, mild distress, A&O X 3, pleasant, underweight, answers questions appropriately - Head Head exam: Present: atraumatic, normal inspection, normocephalic - Eye Eye exam: Present: normal appearance, conjuntiva pink, sclera anicteric - Neck Neck exam general surgery: Present: supple, trachea midline. Absent: lymphadenopathy - Respiratory Respiratory exam: Present: decreased breath sounds, CTAB, respiratory distress, wheezes. Absent: accessory muscle use, rales, rhonchi Additional comments: Mild respiratory distress - Cardiovascular Cardiovascular exam: Present: RRR, +S1, +S2. Absent: diastolic murmur, gallop, rubs, systolic murmur - GI/Abdominal GI/Abdominal exam: Present: normal bowel sounds, soft. Absent: distended, hepatomegaly, tenderness - Extremities Exam Extremities exam: Present: normal capillary refill, normal inspection, warm, radial pulses palpable and symmetrical. Absent: calf tenderness, cyanotic, pedal edema, tenderness - Neurological Exam Neurological exam: Present: alert, oriented X3, no focal deficits. Absent: facial droop, speech deficit - Skin Skin exam: Present: dry, intact, normal color, warm. Absent: rash Internal Medicine: Result - Labs CBC & Chem 7: 05/31/17 04:30 05/31/17 04:30 Labs: Short CBC 05/31/17 Range/Units 04:30 WBC 9.0 (4.3-11.1) K/mcL Hgb 11.3 L (11.5-15.4) g/dL Hct 35.2 L (35.3-44.9) % Plt Count 225 (140-400) K/mcL Neutrophils # 8.5 (1.6-8.9) K/mcL BMP 05/31/17 04:30 Sodium 136 Potassium 4.1 Chloride 98 Carbon Dioxide 32 H BUN 15 Creatinine 0.43 L Glucose 257 H Calcium 8.4 L - ABG Interpretation ABG results: PT/INR, D-dimer PT 10.0 Seconds (9.4-12.1) 05/25/17 19:06 - VTE Documentation of Mechanical Device: Intermittent pneumatic compression device Consult Discharge Plan - Plan Referrals: Ron Ward MD [Primary Care Provider] - 06/07/17 3:00 pm
[2017-05-31] MEDS: *HR* OxyCODONE Immed Rel 5 MG TABLET PO PRN (21:19)
[2017-05-31] MEDS: traZODone 50 MG TABLET PO SCH (21:20)
[2017-05-31] MEDS: Melatonin 3 MG TABLET PO SCH (21:21)
[2017-06-01] MEDS: Ipratropium/Albuterol Neb 3 ML IH SCH ×7 (00:05→23:18)
[2017-06-01] MEDS: hydrALAZINE 25 MG TABLET PO SCH ×4 (02:24→23:27)
[2017-06-01 03:46] LABS: Basophils % 0.1 %; Hematocrit 35.9 % (35.3-44.9); Hemoglobin 11.6 g/dL (11.5-15.4); Immature Granulocytes % 0.8 % (0-4); Lymphocytes # 0.3 K/mcL (0.6-4.6); Lymphocytes % 2.6 %; Mean Corpuscular HGB Conc 32.3 g/dL (31.6-35.5); Mean Corpuscular Volume 92.8 fL (83.0-100.0); Mean Platelet Volume 9.3 fL (9.4-12.4); Monocytes # 0.3 K/mcL (0.0-1.3); Monocytes % 2.9 %; Neutrophils # 9.5 K/mcL (1.6-8.9); Platelet Count 230 K/mcL (140-400); Red Blood Count 3.87 M/mcL (3.82-4.97); Red Cell Distribution Width 15.1 % (11.5-14.5); Segmented Neutrophils % 93.6 %
[2017-06-01 04:04] LABS: BUN/Creatinine Ratio 37 (6-26); Blood Urea Nitrogen 14 mg/dL (8-23); Calcium 8.4 mg/dL (8.6-10.3); Carbon Dioxide 32 mEq/L (23-29); Chloride 99 mEq/L (98-107); Glucose 207 mg/dL (70-105); Osmolality,Calculated 291 (280-300); Potassium 3.6 mEq/L (3.5-5.1); Sodium 137 mEq/L (136-145); eGFR For African Americans > 60 (> 60); eGFR For Non-African Americans > 60 (> 60)
[2017-06-01] MEDS: *HR* HYDROcodone/Acet 5/325 mg TABLET PO PRN ×2 (06:08→15:18)
[2017-06-01] MEDS: Cefepime HCl 1,000 MG in Water for inj. (sterile) 20 ML 10 ML IVPB SCH ×2 (06:09→17:34)
[2017-06-01] MEDS: Budesonide/Formoterol 160/4.5 MDI IH SCH ×2 (07:46→19:09)
[2017-06-01] MEDS: Ondansetron 4 MG/2 ML VIAL IVP PRN ×2 (08:35→17:35)
[2017-06-01] MEDS: MethylPREDNISolone 40 MG/ML VIAL IVP SCH (08:42)
[2017-06-01] MEDS: levoFLOXacin 750 MG TABLET PO SCH (08:43)
[2017-06-01] MEDS: Cholecalciferol (D-3) 1,000 UNIT TABLET PO SCH (08:43)
[2017-06-01] MEDS: Ascorbic Acid 500 MG TABLET PO SCH (08:43)
[2017-06-01] MEDS: Sennosides/Docusate Sodium TABLET PO SCH ×2 (08:43→21:25)
[2017-06-01] MEDS: Tiotropium 18 MCG inhalation IH SCH (10:00)
[2017-06-01] MEDS: *HR* LORazepam 0.5 MG TABLET PO PRN ×2 (10:57→21:25)
[2017-06-01] MEDS: *HR* Promethazine 25 MG/ML VIAL IVP PRN ×2 (12:15→21:21)
[2017-06-01] MEDS: Clindamycin 900 MG/50 ML 900 MG/50 ML IV.SOLN IVPB SCH ×2 (17:34→23:28)
[2017-06-01] MEDS: *HR* OxyCODONE Immed Rel 5 MG TABLET PO PRN (17:46)
--- NOTE | 2017-06-01 18:26 | Internal Med Progress Note ---
Date of Encounter: 06/01/17 Time of Encounter: 11:50 - Assessment and plan (1) HCAP (healthcare-associated pneumonia) Current Visit: Yes Status: Acute Assessment and plan: Bacterial. sputum culture prelim with gram-positive cocci, final showed Kokiahria Krdarlineae. After discussion with pharmacy, pt has been started on cipro and Clindamycin. Blood cultures negative 2. Patient is afebrile, normotensive, no signs of sirs or sepsis. Patient in mild respiratory distress, normal for her. Patient is at her baseline O2 demand of 2 L via nasal cannula. Pulmonology consult is in, he will see pt tomorrow. He feels that sputum culture could be contaminated, repeat culture is ordered. Original abx were stopped, IV Cipro and IV Clindamycin started in response to sputum culture. Oxygen as needed to maintain sats greater than 92% Continue nebulizer treatments, Symbicort, Mucinex, steroids have been transitioned to by mouth prednisone 40 mg daily (2) HTN (hypertension) Current Visit: Yes Status: Chronic Assessment and plan: Chronic. Blood pressure better controlled with addition of lisinopril. Continue to monitor vital signs. Qualifiers: Hypertension type: essential hypertension Qualified Code(s): I10 - Essential (primary) hypertension (3) Chronic respiratory failure with hypoxia Current Visit: Yes Status: Chronic Assessment and plan: Continuous pulse ox Titrate to maintain sats greater than 92%. Patient has home O2, will continue after discharge. (4) Small cell lung cancer, right lower lobe Current Visit: Yes Status: Chronic Assessment and plan: Chronic. Patient has completed course of radiation. Patient follows with [facility]. Follow outpatient. Patient has also been evaluated by palliative care. Unfortunately, there are not many options as there is no respiratory home care in the area. She is eligible for home health care visits, will be discharged with [facility]. (5) COPD exacerbation Current Visit: Yes Status: Acute Assessment and plan: Chronic. Plan as above. (6) Dysphagia Current Visit: Yes Status: Acute Assessment and plan: Patient reports symptoms are better today. Continue PPI and Carafate slurry Qualifiers: Dysphagia type: unspecified Qualified Code(s): R13.10 - Dysphagia, unspecified - Time Spent With Patient Total time spent is greater than 50% in coordination of care (as documented) at patient's floor/unit and/or counseling patient: less than 15 minutes - Subjective Interval history: Patient was seen and assessed at 1150. She denies chest pain, nausea, vomiting , diarrhea, abdominal pain, headache or dizziness. Patient appears slightly better today, she states she is feeling a little bit better, but reports fatigue. Patient, and I, as well as primary nurse discussed sputum culture today at length. Multiple questions were answered. Waiting on pulmonology evaluation. - Constitutional Vitals: Temp Pulse Resp BP Pulse Ox 98.5 F 101 16 119/74 93 06/01/17 15:28 06/01/17 15:28 06/01/17 15:28 06/01/17 15:28 06/01/17 15:28 General appearance: Present: cachectic, cooperative, mild distress, A&O X 3, pleasant, underweight, answers questions appropriately - Head Head exam: Present: atraumatic, normal inspection, normocephalic - Eye Eye exam: Present: conjuntiva pink, sclera anicteric - Neck Neck exam general surgery: Present: supple, trachea midline. Absent: lymphadenopathy - Respiratory Respiratory exam: Present: CTAB, respiratory distress, wheezes. Absent: accessory muscle use, chest wall tenderness, rales, rhonchi Additional comments: Moderate respiratory distress persists - Cardiovascular Cardiovascular exam: Present: RRR, +S1, +S2. Absent: diastolic murmur, gallop, rubs, systolic murmur - GI/Abdominal GI/Abdominal exam: Present: normal bowel sounds, soft. Absent: distended, hepatomegaly, tenderness - Extremities Exam Extremities exam: Present: normal capillary refill, normal inspection, warm, radial pulses palpable and symmetrical. Absent: calf tenderness, cyanotic, pedal edema, tenderness - Neurological Exam Neurological exam: Present: alert, oriented X3, no focal deficits. Absent: altered, facial droop, speech deficit - Skin Skin exam: Present: dry, intact, normal color, warm Internal Medicine: Result - Labs CBC & Chem 7: 06/01/17 03:34 06/01/17 03:34 Labs: Short CBC 06/01/17 Range/Units 03:34 WBC 10.2 (4.3-11.1) K/mcL Hgb 11.6 (11.5-15.4) g/dL Hct 35.9 (35.3-44.9) % Plt Count 230 (140-400) K/mcL Neutrophils # 9.5 H (1.6-8.9) K/mcL BMP 06/01/17 03:34 Sodium 137 Potassium 3.6 Chloride 99 Carbon Dioxide 32 H BUN 14 Creatinine 0.38 L Glucose 207 H Calcium 8.4 L - ABG Interpretation ABG results: PT/INR, D-dimer PT 10.0 Seconds (9.4-12.1) 05/25/17 19:06 - VTE Documentation of Mechanical Device: Intermittent pneumatic compression device Consult Discharge Plan - Plan Referrals: Ron Ward MD [Primary Care Provider] - 06/07/17 3:00 pm
[2017-06-01] MEDS: Melatonin 3 MG TABLET PO SCH (21:25)
[2017-06-01] MEDS: traZODone 50 MG TABLET PO SCH (21:26)
[2017-06-02] MEDS: Albuterol 2.5 MG/3 ML NEBULIZER IH PRN ×2 (01:26→12:33)
[2017-06-02] MEDS: Ondansetron 4 MG/2 ML VIAL IVP PRN ×2 (03:00→11:27)
[2017-06-02] MEDS: Ipratropium/Albuterol Neb 3 ML IH SCH ×6 (03:44→23:22)
[2017-06-02 06:13] LABS: Basophils % 0.2 %; Eosinophils % 0.2 %; Hematocrit 36.9 % (35.3-44.9); Hemoglobin 11.9 g/dL (11.5-15.4); Immature Granulocytes % 1.4 % (0-4); Lymphocytes # 0.5 K/mcL (0.6-4.6); Lymphocytes % 5.4 %; Mean Corpuscular HGB Conc 32.2 g/dL (31.6-35.5); Mean Corpuscular Hemoglobin 29.8 pg (28.0-33.3); Mean Corpuscular Volume 92.5 fL (83.0-100.0); Monocytes # 0.2 K/mcL (0.0-1.3); Monocytes % 2.1 %; Neutrophils # 8.1 K/mcL (1.6-8.9); Platelet Count 209 K/mcL (140-400); Red Blood Count 3.99 M/mcL (3.82-4.97); Segmented Neutrophils % 90.7 %
[2017-06-02 06:35] LABS: BUN/Creatinine Ratio 40 (6-26); Blood Urea Nitrogen 17 mg/dL (8-23); Calcium 8.3 mg/dL (8.6-10.3); Carbon Dioxide 31 mEq/L (23-29); Chloride 96 mEq/L (98-107); Glucose 111 mg/dL (70-105); Osmolality,Calculated 282 (280-300); Potassium 3.8 mEq/L (3.5-5.1); Sodium 135 mEq/L (136-145); eGFR For African Americans > 60 (> 60); eGFR For Non-African Americans > 60 (> 60)
[2017-06-02] MEDS: Budesonide/Formoterol 160/4.5 MDI IH SCH ×2 (07:28→19:51)
[2017-06-02] MEDS: Tiotropium 18 MCG inhalation IH SCH (07:29)
[2017-06-02] MEDS: Clindamycin 900 MG/50 ML 900 MG/50 ML IV.SOLN IVPB SCH ×2 (07:42→15:13)
[2017-06-02] MEDS: predniSONE 20 MG TABLET PO SCH (07:42)
[2017-06-02] MEDS: Sennosides/Docusate Sodium TABLET PO SCH ×2 (07:42→20:31)
[2017-06-02] MEDS: Ascorbic Acid 500 MG TABLET PO SCH (07:43)
[2017-06-02] MEDS: hydrALAZINE 25 MG TABLET PO SCH ×2 (07:43→16:30)
[2017-06-02] MEDS: Cholecalciferol (D-3) 1,000 UNIT TABLET PO SCH (07:43)
[2017-06-02] MEDS: *HR* Promethazine 25 MG/ML VIAL IVP PRN ×2 (07:43→15:13)
[2017-06-02] MEDS: levoFLOXacin 750 MG TABLET PO SCH (07:43)
[2017-06-02] MEDS: 0.9 % Sodium Chloride 1,000 ML IVC SCH ×2 (08:59→20:43)
--- NOTE | 2017-06-02 09:39 | Pulmonology Consult Note ---
Date of Encounter: 06/02/17 Time of Encounter: 09:10 Assessment and Plan (1) Hilar mass Current Visit: No Status: Chronic I have explained to the patient that her condition was likely is deteriorating secondary to her underlying malignancy and we did discuss different option regarding repeating bronchoscopy and another balloon dilatation versus attempting placing stent, however patient has one more radiation to do which I suspect might not be making a significant change since clinically she has not improved and have told that the patient. Patient will think about those options and will follow-up. This was discussed with the primary team and thank you for the consultation. (2) Acute and chronic respiratory failure Current Visit: No Status: Chronic Patient on the appropriate inhalers. Qualifiers: Respiratory failure complication: hypoxia Qualified Code(s): J96.21 - Acute and chronic respiratory failure with hypoxia (3) COPD (chronic obstructive pulmonary disease) Current Visit: No Status: Chronic Qualifiers: COPD type: unspecified COPD Qualified Code(s): J44.9 - Chronic obstructive pulmonary disease, unspecified (4) Pneumonia Current Visit: No Status: Suspected I have explained to the patient sputum culture is most likely contamination and I suspect this is postobstructive pneumonia and a half told primary team ciprofloxacin is reasonable. Qualifiers: Pneumonia type: due to unspecified organism Laterality: right Lung location: unspecified part of lung Qualified Code(s): J18.9 - Pneumonia, unspecified organism History of Present Illness Consult date: 06/02/17 Requesting physician: Jacki Schwab Reason for consult: pneumonia Chief complaint: Shortness of breath History of present illness: This is pleasant 61-year-old female with history of small cell lung cancer status post chemotherapy and also had radiation and she has underlying COPD on long-term oxygen therapy. Patient has had multiple hospitalization. Patient was recently hospitalized and she had bronchoscopy with balloon dilatation and she had some positive response with improvement in her shortness of breath after that, however unfortunately this is did not last and patient is being treated for pneumonia and also. She does have productive cough but denies any hemoptysis and she feels her dyspnea is worsening. She denies any chest pain. Past Med Surg Social Fam HX - Past Medical History Medical history: cancer, COPD, hypertension Psychiatric history: anxiety, depression - Past Surgical History Surgical History: hysterectomy - Social History Smoking Status: Current every day smoker Smokeless Tobacco Status: No Alcohol use: none Drug use: none - Family History Sister Adopted: No Family Member Ethnicity: Non- Living Status: Still Living Age at : 58 Hx Family Cardiac Disorders: Yes (HTN) Hx Family Respiratory Disorders: No Hx Family Cancer: Yes (Lymphoma) Hx Family GI Disorders: No Hx Family Genitourinary Disorders: No Hx Family Endocrine Disorder: No Hx Family Musculoskeletal Disorders: No Hx Family Neuromuscular Disorders: No Hx Family Neurologic Disorders: No Hx Family HEENT Disorders: No Hx Family Autoimmune Disorders: No Hx Family Reproductive Disorders: No Hx Family Psychosocial Disorders: No Hx Family Medical Disorders: No Mother Name: 2 sister Jasmina/Queenie Family Member Ethnicity: Non- Living Status: Hx Family Cardiac Disorders: Yes (Aneurysm, HTN) Hx Family Respiratory Disorders: Yes (COPD) Hx Family Cancer: No Hx Family GI Disorders: No Hx Family Genitourinary Disorders: No Hx Family Endocrine Disorder: No Hx Family Musculoskeletal Disorders: No Hx Family Neuromuscular Disorders: No Hx Family Neurologic Disorders: No Hx Family HEENT Disorders: No Hx Family Reproductive Disorders: No Hx Family Psychosocial Disorders: No Father Adopted: [place]: Alexander Tafoya Family Member Ethnicity: Non- Living Status: Hx Family Cardiac Disorders: Yes (CHF, CAD, IA) Hx Family Respiratory Disorders: Yes (mother copd) Hx Family Cancer: No Hx Family GI Disorders: No Hx Family Genitourinary Disorders: No Hx Family Endocrine Disorder: No Hx Family Musculoskeletal Disorders: Yes Hx Family Neuromuscular Disorders: No Hx Family Neurologic Disorders: No Hx Family HEENT Disorders: No Hx Family Autoimmune Disorders: No Hx Family Reproductive Disorders: No Hx Family Psychosocial Disorders: No Medications and Allergies DULoxetine [Cymbalta] 30 mg PO HS 02/15/16 [History] Trazodone HCl 200 mg PO HS 02/15/16 [History] Albuterol Sulfate [Albuterol Inhaler] 2 puff IH Q6H PRN 10/14/16 [History] Budesonide/Formoterol 160/4.5 [Symbicort 160/4.5] 2 puff IH BIDR 10/14/16 [ History] Oxygen 2 l NS AD 10/14/16 [History] Tiotropium [Spiriva] 18 mcg IH DAILY 10/14/16 [History] Ascorbate Calcium [Vitamin C] 500 mg PO DAILY 12/14/16 [History] Polyethylene Glycol 3350 [MiraLAX] 17 gm PO DAILY PRN #30 powd.pack 12/22/16 [Rx ] Sennosides/Docusate Sodium [Senna-Docusate Sodium Tablet] 2 each PO BID PRN #60 tablet 12/22/16 [Rx] Calcium Carbonate/Vitamin D3 [Calcium 500 + Vit D Caplet] 2 each PO DAILY #60 tablet 12/26/16 [Rx] Cholecalciferol (D-3) [Vitamin D] 5,000 unit PO DAILY 02/02/17 [History] Melatonin [Melatin] 3 mg PO HS 02/02/17 [History] Albuterol Neb [Proventil Neb] 2.5 mg IH Q6H PRN 7 Days #30 vial 05/04/17 [Rx] Ipratropium/Albuterol Neb [Duoneb] 3 ml IH Q4HR 30 Days vial.neb 05/15/17 [Rx] Carvedilol 12.5 mg PO BID #60 tab 05/23/17 [Rx] GuaiFENesin ER [Mucinex] 600 mg PO BID #60 tbbp.12hr 05/23/17 [Rx] LORazepam [Ativan] 0.5 mg PO BID PRN 7 Days #14 tablet 05/23/17 [Rx] OxyCODONE Immed Rel [Roxicodone 10 MG] 10 mg PO TID PRN 7 Days #21 tablet [Rx] hydrALAZINE [HydrALAZINE] 25 mg PO Q8HR #90 tablet 05/23/17 [Rx] predniSONE [PredniSONE] See Taper PO DAILY #126 tablet 05/23/17 [Rx] 3 Allergy/AdvReac Type Severity Reaction Status Date / Time No Known Allergies Allergy Verified 05/27/17 08:12 All Systems: The remainder of the systems were reviewed and are negative Physical Examination Vital Signs: Vital Signs, Last 4 Hours Temp Pulse Resp BP Pulse Ox 06/02/17 07:29 20 92 06/02/17 07:12 98.4 F 101 16 96/57 95 General appearance: appears uncomfortable Eyes: nonicteric ENT: oropharynx dry Neck: supple Effort: mildly labored Inspection: hyperextended Auscultation: right: diminished breath sounds, bilateral: rhonchi Percussion: right: dull Cardiovascular: regular rate and rhythm Gastrointestinal: normoactive bowel sounds, non-distended Extremities: no edema normal mental status, non-focal exam depressed Results - Laboratory Findings CBC and BMP: 06/02/17 05:54 06/02/17 05:54 PT/INR, D-dimer PT 10.0 Seconds (9.4-12.1) 05/25/17 19:06 Abnormal lab findings: Abnormal lab results RDW 15.0 % (11.5-14.5) H 06/02/17 05:54 MPV 9.0 fL (9.4-12.4) L 06/02/17 05:54 Lymphocytes # 0.5 K/mcL (0.6-4.6) L 06/02/17 05:54 Nucleated RBCs/100 WBC 0.2 /100 WBC (0) H 05/29/17 04:07 Toxic Granulation Present (Not Present) A 05/30/17 06:32 Clumped Platelets Few (Not Present) A 05/29/17 04:07 VBG pH 7.53 pH Units (7.32-7.42) H 05/25/17 19:21 VBG pCO2 38 mmHg (41-51) L 05/25/17 19:21 VBG pO2 188 mmHg (25-50) H 05/25/17 19:21 VBG HCO3 32 mEq/L (21-27) H 05/25/17 19:21 Sodium 135 mEq/L (136-145) L 06/02/17 05:54 Chloride 96 mEq/L (98-107) L 06/02/17 05:54 Carbon Dioxide 31 mEq/L (23-29) H 06/02/17 05:54 Creatinine 0.42 mg/dL (0.60-1.20) L 06/02/17 05:54 BUN/Creatinine Ratio 40 (6-26) H 06/02/17 05:54 Glucose 111 mg/dL (70-105) H 06/02/17 05:54 Calcium 8.3 mg/dL (8.6-10.3) L 06/02/17 05:54 Serum Total Protein 5.3 g/dL (6.4-8.9) L 05/25/17 19:06 Albumin 3.4 g/dL (3.5-5.7) L 05/25/17 19:06 Globulin 1.9 g/dL (2.4-3.5) L 05/25/17 19:06 - Microbiology Findings Microbiology Findings: Microbiology, Last 48 Hours 05/27/17 09:50 Sputum Culture - Preliminary Sputum Shahla aj - Diagnostic Findings CT scan - chest: report reviewed, image reviewed - Clinical Findings Intake & Output: Intake & Output 06/01/17 06/02/17 06/02/17 23:59 07:59 15:59 Intake Total 370 / 370 250 / 250 Output Total 150 / 150 500 / 500 Balance 220 / 220 -250 / -250 Weight 45.2 kg Consult Discharge Plan - Plan Referrals: Ron Ward MD [Primary Care Provider] - 06/07/17 3:00 pm
--- NOTE | 2017-06-02 09:46 | Palliative Progress Note ---
Date of Encounter: 06/01/17 Time of Encounter: 09:00 - Assessment and plan (1) Nausea Current Visit: Yes Status: Acute Assessment and plan: Continues to require intermittent antiemetic. She believes promethazine helping more than Ondansetron. Monitor. If nausea continues, she will need prescription for antiemetic on discharge as she states hers is quite old. (2) Anxiety Current Visit: No Status: Chronic (3) Constipation Current Visit: No Status: Acute Assessment and plan: Continues with Senokot BID and Miralax PRN. + BM today. Monitor Qualifiers: Constipation type: unspecified constipation type Qualified Code(s): K59.00 - Constipation, unspecified (4) Cancer associated pain Current Visit: Yes Status: Acute Assessment and plan: Continue [place]/Oxycodone as currently prescribed. Has utilized each x1 last 24 hours (5) Goals of care, counseling/discussion Current Visit: No Status: Acute Assessment and plan: [facility] upon discharge. (6) COPD (chronic obstructive pulmonary disease) Current Visit: No Status: Chronic Qualifiers: COPD type: unspecified COPD Qualified Code(s): J44.9 - Chronic obstructive pulmonary disease, unspecified (7) Healthcare-associated pneumonia Current Visit: No Status: Acute (8) Metastatic lung cancer (metastasis from lung to other site) Current Visit: Yes Status: Acute - Time Spent With Patient Total time spent is greater than 50% in coordination of care (as documented) at patient's floor/unit and/or counseling patient: - Subjective Interval history: Patient awake and alert - c/o some nausea and "food getting stuck". Oncology has recommended Carafate. at bedside. States they are waiting for Dr. Farrell for further recommendations. - Constitutional Vitals: Abnormal lab results RDW 15.0 % (11.5-14.5) H 06/02/17 05:54 MPV 9.0 fL (9.4-12.4) L 06/02/17 05:54 Lymphocytes # 0.5 K/mcL (0.6-4.6) L 06/02/17 05:54 Nucleated RBCs/100 WBC 0.2 /100 WBC (0) H 05/29/17 04:07 Toxic Granulation Present (Not Present) A 05/30/17 06:32 Clumped Platelets Few (Not Present) A 05/29/17 04:07 VBG pH 7.53 pH Units (7.32-7.42) H 05/25/17 19:21 VBG pCO2 38 mmHg (41-51) L 05/25/17 19:21 VBG pO2 188 mmHg (25-50) H 05/25/17 19:21 VBG HCO3 32 mEq/L (21-27) H 05/25/17 19:21 Sodium 135 mEq/L (136-145) L 06/02/17 05:54 Chloride 96 mEq/L (98-107) L 06/02/17 05:54 Carbon Dioxide 31 mEq/L (23-29) H 06/02/17 05:54 Creatinine 0.42 mg/dL (0.60-1.20) L 06/02/17 05:54 BUN/Creatinine Ratio 40 (6-26) H 06/02/17 05:54 Glucose 111 mg/dL (70-105) H 06/02/17 05:54 Calcium 8.3 mg/dL (8.6-10.3) L 06/02/17 05:54 Serum Total Protein 5.3 g/dL (6.4-8.9) L 05/25/17 19:06 Albumin 3.4 g/dL (3.5-5.7) L 05/25/17 19:06 Globulin 1.9 g/dL (2.4-3.5) L 05/25/17 19:06 General appearance: Present: no acute distress - Respiratory Respiratory exam: Present: decreased breath sounds, CTAB - Cardiovascular Cardiovascular exam: Present: +S1, +S2 - GI/Abdominal GI/Abdominal exam: Present: normal bowel sounds, soft - Extremities Exam Extremities exam: Present: normal capillary refill, normal inspection - Neurological Exam Neurological exam: Present: alert, oriented X3, strengths equal and symetr throughout - Skin Skin exam: Present: dry, pallor, warm Palliative Quality Palliative Quality: Screen for Code Status: Yes, Screen for Goals of Care: Yes, Screen for Pain: Yes, If Pain Regimen Started, Initiate Bowel Regimen: Yes, Screen for Nausea/Vomitting: Yes - Labs CBC & Chem 7: 06/02/17 05:54 06/02/17 05:54 Labs: Laboratory Results - last 24 hr 06/02/17 06/02/17 05:54 05:54 WBC 8.9 RBC 3.99 Hgb 11.9 Hct 36.9 MCV 92.5 MCH 29.8 MCHC 32.2 RDW 15.0 H Plt Count 209 MPV 9.0 L Immature Gran % 1.4 Seg Neutrophils % 90.7 Lymphocytes % 5.4 Monocytes % 2.1 Eosinophils % 0.2 Basophils % 0.2 Neutrophils # 8.1 Lymphocytes # 0.5 L Monocytes # 0.2 Eosinophils # 0.0 Basophils # 0.0 Sodium 135 L Potassium 3.8 Chloride 96 L Carbon Dioxide 31 H BUN 17 Creatinine 0.42 L Est GFR ( Amer) > 60 Est GFR (Non-Af Amer) > 60 BUN/Creatinine Ratio 40 H Glucose 111 H Calculated Osmolality 282 Calcium 8.3 L - ABG Interpretation ABG results: PT/INR, D-dimer PT 10.0 Seconds (9.4-12.1) 05/25/17 19:06 Consult Discharge Plan - Plan Referrals: Ron Ward MD [Primary Care Provider] - 06/07/17 3:00 pm
[2017-06-02] MEDS: *HR* LORazepam 0.5 MG TABLET PO PRN ×2 (12:34→20:31)
[2017-06-02] MEDS: *HR* HYDROcodone/Acet 5/325 mg TABLET PO PRN (13:20)
--- NOTE | 2017-06-02 15:14 | Internal Med Progress Note ---
Date of Encounter: 06/02/17 Time of Encounter: 08:55 - Assessment and plan (1) HCAP (healthcare-associated pneumonia) Current Visit: Yes Status: Acute Assessment and plan: Bacterial. Pulmonology has seen pt and suggests that sputum cx is contaminated, recommends that pt stay on Cipro and stop Clindamycin. Blood cultures negative 2. Patient is afebrile, normotensive, no signs of sirs or sepsis. Patient in mild respiratory distress, normal for her. Patient is at her baseline O2 demand of 2 L via nasal cannula. Lungs are clear today, no wheezing, rales, ronchi heard. Continue po Cipro Oxygen as needed to maintain sats greater than 92% Continue nebulizer treatments, Symbicort, Mucinex, steroids have been transitioned to by mouth prednisone 40 mg daily (2) HTN (hypertension) Current Visit: Yes Status: Chronic Assessment and plan: Chronic. Pt hypotensive today, Lisinopril decreased to 2.5mg po daily. Pt also getting [place] and phenergan. Qualifiers: Hypertension type: essential hypertension Qualified Code(s): I10 - Essential (primary) hypertension (3) Chronic respiratory failure with hypoxia Current Visit: Yes Status: Chronic Assessment and plan: Chronic. Titrate to maintain sats greater than 92%. Patient has home O2, will continue after discharge. (4) Small cell lung cancer, right lower lobe Current Visit: Yes Status: Chronic Assessment and plan: Chronic. Patient has completed course of radiation. Patient follows with [place] [facility]. Follow outpatient. Patient has also been evaluated by palliative care. Unfortunately, there are not many options as there is no respiratory home care in the area. She is eligible for home health care visits, will be discharged with [facility]. Pulmonology has discussed respiratory status with pt, they have explained her condition is clinically deteriorating secondary to malignancy. They discussed the option of repeating the bronchoscopy and another balloon dilatation versus attempting stents, however patient has 1 more radiation to do. Patient will discuss 3 options and pulmonology will follow-up with them as to their decision. (5) COPD exacerbation Current Visit: Yes Status: Acute Assessment and plan: Chronic. Plan as above for HCAP. (6) Dysphagia Current Visit: Yes Status: Acute Assessment and plan: Patient reports symptoms are better today. Continue PPI and Carafate slurry. Will discuss with oncology again tomorrow if not improved. Qualifiers: Dysphagia type: unspecified Qualified Code(s): R13.10 - Dysphagia, unspecified - Time Spent With Patient Total time spent is greater than 50% in coordination of care (as documented) at patient's floor/unit and/or counseling patient: less than 15 minutes - Subjective Interval history: Patient was seen and assessed at 0855. She denies chest pain, nausea, vomiting , diarrhea, abdominal pain, headache or dizziness. Patient's respiratory status seems better today, pt does not agree. Today she reports nausea that is controlled by phenergan, likely side effect of radiation. - Constitutional Vitals: Temp Pulse Resp BP Pulse Ox 97.7 F 114 20 94/61 93 06/02/17 11:39 06/02/17 11:39 06/02/17 15:01 06/02/17 11:39 06/02/17 15:01 General appearance: Present: cachectic, cooperative, mild distress, A&O X 3, pleasant, underweight, answers questions appropriately - Head Head exam: Present: atraumatic, normal inspection, normocephalic - Eye Eye exam: Present: normal appearance, conjuntiva pink, sclera anicteric - Neck Neck exam general surgery: Present: supple, trachea midline. Absent: lymphadenopathy - Respiratory Respiratory exam: Present: CTAB. Absent: accessory muscle use, chest wall tenderness, rales, respiratory distress, rhonchi, wheezes Additional comments: No wheezing, rails, rhonchi, respiratory distress. - Cardiovascular Cardiovascular exam: Present: RRR, +S1, +S2. Absent: diastolic murmur, gallop, rubs, systolic murmur - GI/Abdominal GI/Abdominal exam: Present: normal bowel sounds, soft. Absent: distended, hepatomegaly, tenderness - Extremities Exam Extremities exam: Present: normal capillary refill, normal inspection, warm, radial pulses palpable and symmetrical. Absent: calf tenderness, cyanotic, pedal edema, tenderness - Neurological Exam Neurological exam: Present: alert, oriented X3, no focal deficits. Absent: facial droop, speech deficit - Skin Skin exam: Present: dry, intact, normal color, warm. Absent: rash Internal Medicine: Result - Labs CBC & Chem 7: 06/02/17 05:54 06/02/17 05:54 Labs: Short CBC 06/02/17 Range/Units 05:54 WBC 8.9 (4.3-11.1) K/mcL Hgb 11.9 (11.5-15.4) g/dL Hct 36.9 (35.3-44.9) % Plt Count 209 (140-400) K/mcL Neutrophils # 8.1 (1.6-8.9) K/mcL BMP 06/02/17 05:54 Sodium 135 L Potassium 3.8 Chloride 96 L Carbon Dioxide 31 H BUN 17 Creatinine 0.42 L Glucose 111 H Calcium 8.3 L - ABG Interpretation ABG results: PT/INR, D-dimer PT 10.0 Seconds (9.4-12.1) 05/25/17 19:06 - VTE Documentation of Mechanical Device: Intermittent pneumatic compression device Consult Discharge Plan - Plan Referrals: Ron Ward MD [Primary Care Provider] - 06/07/17 3:00 pm
[2017-06-02] MEDS ORDERED: 0.9 % Sodium Chloride 500 ML IVC ONE (15:34)
[2017-06-02] MEDS: Melatonin 3 MG TABLET PO SCH (20:30)
[2017-06-02] MEDS: traZODone 50 MG TABLET PO SCH (20:31)
[2017-06-03] MEDS: hydrALAZINE 25 MG TABLET PO SCH ×4 (00:09→23:40)
[2017-06-03] MEDS: Ipratropium/Albuterol Neb 3 ML IH SCH ×6 (03:25→23:35)
[2017-06-03 04:52] LABS: Basophils % 0.2 %; Eosinophils % 0.2 %; Hematocrit 35.5 % (35.3-44.9); Hemoglobin 11.4 g/dL (11.5-15.4); Immature Granulocytes % 0.9 % (0-4); Lymphocytes # 0.3 K/mcL (0.6-4.6); Mean Corpuscular HGB Conc 32.1 g/dL (31.6-35.5); Mean Corpuscular Hemoglobin 29.3 pg (28.0-33.3); Mean Corpuscular Volume 91.3 fL (83.0-100.0); Mean Platelet Volume 9.5 fL (9.4-12.4); Monocytes # 0.1 K/mcL (0.0-1.3); Monocytes % 1.8 %; Neutrophils # 6.1 K/mcL (1.6-8.9); Platelet Count 189 K/mcL (140-400); Red Blood Count 3.89 M/mcL (3.82-4.97); Red Cell Distribution Width 15.1 % (11.5-14.5); Segmented Neutrophils % 91.9 %
[2017-06-03 05:12] LABS: BUN/Creatinine Ratio 26 (6-26); Blood Urea Nitrogen 8 mg/dL (8-23); Carbon Dioxide 32 mEq/L (23-29); Chloride 100 mEq/L (98-107); Glucose 91 mg/dL (70-105); Osmolality,Calculated 282 (280-300); Potassium 3.3 mEq/L (3.5-5.1); Sodium 137 mEq/L (136-145); eGFR For African Americans > 60 (> 60); eGFR For Non-African Americans > 60 (> 60)
--- NOTE | 2017-06-03 06:45 | Pulmonology Progress Note ---
Date of Encounter: 06/03/17 Time of Encounter: 06:45 Objective PUL Vital signs: Last Vital Signs Temp 98.1 F 06/03/17 03:44 Pulse 111 06/03/17 03:44 Resp 16 06/03/17 03:44 BP 132/81 06/03/17 03:44 Pulse Ox 95 06/03/17 03:44 Results - Laboratory Findings CBC and BMP: 06/03/17 04:21 06/03/17 04:21 PT/INR, D-dimer PT 10.0 Seconds (9.4-12.1) 05/25/17 19:06 Abnormal lab findings: Abnormal lab results Hgb 11.4 g/dL (11.5-15.4) L 06/03/17 04:21 RDW 15.1 % (11.5-14.5) H 06/03/17 04:21 Lymphocytes # 0.3 K/mcL (0.6-4.6) L 06/03/17 04:21 Nucleated RBCs/100 WBC 0.2 /100 WBC (0) H 05/29/17 04:07 Toxic Granulation Present (Not Present) A 05/30/17 06:32 Clumped Platelets Few (Not Present) A 05/29/17 04:07 VBG pH 7.53 pH Units (7.32-7.42) H 05/25/17 19:21 VBG pCO2 38 mmHg (41-51) L 05/25/17 19:21 VBG pO2 188 mmHg (25-50) H 05/25/17 19:21 VBG HCO3 32 mEq/L (21-27) H 05/25/17 19:21 Potassium 3.3 mEq/L (3.5-5.1) L 06/03/17 04:21 Carbon Dioxide 32 mEq/L (23-29) H 06/03/17 04:21 Creatinine 0.31 mg/dL (0.60-1.20) L 06/03/17 04:21 Calcium 8.0 mg/dL (8.6-10.3) L 06/03/17 04:21 Serum Total Protein 5.3 g/dL (6.4-8.9) L 05/25/17 19:06 Albumin 3.4 g/dL (3.5-5.7) L 05/25/17 19:06 Globulin 1.9 g/dL (2.4-3.5) L 05/25/17 19:06 - Microbiology Findings Microbiology Findings: Microbiology, Last 48 Hours 05/27/17 09:50 Sputum Culture - Preliminary Sputum Silvioarielle aj - Clinical Findings Intake & Output: Intake & Output 06/02/17 06/02/17 06/03/17 15:59 23:59 07:59 Intake Total 50 / 50 990 / 990 1100 / 1100 Output Total 600 / 600 2000 / 2000 Balance -550 / -550 990 / 990 -900 / -900 Weight 47.3 kg - VTE Documentation of Mechanical Device: Intermittent pneumatic compression device Consult Discharge Plan - Plan Referrals: Ron Ward MD [Primary Care Provider] - 06/07/17 3:00 pm
[2017-06-03] MEDS: Budesonide/Formoterol 160/4.5 MDI IH SCH ×2 (07:47→19:48)
[2017-06-03] MEDS: Sennosides/Docusate Sodium TABLET PO SCH ×2 (07:55→20:44)
[2017-06-03] MEDS: Cholecalciferol (D-3) 1,000 UNIT TABLET PO SCH (07:56)
[2017-06-03] MEDS: predniSONE 20 MG TABLET PO SCH (07:56)
[2017-06-03] MEDS: Ascorbic Acid 500 MG TABLET PO SCH (07:56)
[2017-06-03] MEDS: *HR* OxyCODONE Immed Rel 5 MG TABLET PO PRN (09:51)
[2017-06-03] MEDS: Tiotropium 18 MCG inhalation IH SCH (10:33)
--- NOTE | 2017-06-03 11:21 | Pulmonology Progress Note ---
Date of Encounter: 06/03/17 Time of Encounter: 11:21 Assessment and Plan (1) Postobstructive pneumonia Current Visit: No Status: Acute PICU is readmitted for presumed pneumonia with COPD exacerbation. Her sputum culture was positive for a generally commensal skin organism (Kocuria kristinae ) which can be associated with respiratory infections in chemotherapy patient's at least in a limited literature search. She has metastatic lung cancer with a hilar mass obstructing most of the right lower lobe she has undergone balloon dilation for this and debulking in the past however she has been admitted weekly since then for recurrence of pneumonia and COPD exacerbation. I had a jaime conversation with her and her sister at bedside and explained that bronchoscopy could be attempted again to see if there would be any improvement in her symptoms but I am dubious at this point that they would make much of a difference the rate limiting except her will be her response to radiation therapy which at least right now has been limited at best. She feels back to her baseline now and after weighing the risk and benefit she decided to hold off on further procedure which is very reasonable this could be reevaluated in the future. Overall prognosis is poor and agree with palliative care consultation they have seen her she wants to remain pursuing a aggressive treatment for now but again I reinforced that there is no doubt the cancer taken grave toll on her body and overall health/deconditioning She is currently on ciprofloxacin for pneumonia coverage and again I am unsure if this is a pathogen or commensal organism but is reasonable to wait and treat her for a prolonged course of 10-14 days with the fluoroquinolone She can be transitioned to oral prednisone at 40 mg to again taper by 10 mg weekly Continue home bronchodilator regimen. Thank your for this consultation (2) Acute and chronic respiratory failure Current Visit: No Status: Chronic Qualifiers: Respiratory failure complication: hypoxia Qualified Code(s): J96.21 - Acute and chronic respiratory failure with hypoxia (3) Small cell 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 Current Visit: No Status: Chronic (4) COPD exacerbation Current Visit: No Status: Acute (5) Goals of care, counseling/discussion Current Visit: No Status: Acute (6) Metastatic lung cancer (metastasis from lung to other site) Current Visit: Yes Status: Acute Qualifiers: Laterality: unspecified laterality Qualified Code(s): C34.90 - Malignant neoplasm of unspecified part of unspecified bronchus or lung Subjective Principal diagnosis: Pneumonia Interval history: Domi feels a little bit better today. She went to radiation without issue earlier today. Says that breathing difficulty is about 8 out of 10 when she was admitted and now is back to about a baseline of 5 or 6 out of 10 she is joined again by her sister at bedside Objective PUL Vital signs: Last Vital Signs Temp 98.9 F 06/03/17 07:00 Pulse 98 06/03/17 07:00 Resp 15 06/03/17 07:49 BP 130/70 06/03/17 07:00 Pulse Ox 93 06/03/17 07:49 General appearance: no acute distress Auscultation: bilateral: rhonchi Cardiovascular: regular rate and rhythm normal mental status, non-focal exam mood appropriate Results - Laboratory Findings CBC and BMP: 06/03/17 04:21 06/03/17 04:21 PT/INR, D-dimer PT 10.0 Seconds (9.4-12.1) 05/25/17 19:06 Abnormal lab findings: Abnormal lab results Hgb 11.4 g/dL (11.5-15.4) L 06/03/17 04:21 RDW 15.1 % (11.5-14.5) H 06/03/17 04:21 Lymphocytes # 0.3 K/mcL (0.6-4.6) L 06/03/17 04:21 Nucleated RBCs/100 WBC 0.2 /100 WBC (0) H 05/29/17 04:07 Toxic Granulation Present (Not Present) A 05/30/17 06:32 Clumped Platelets Few (Not Present) A 05/29/17 04:07 VBG pH 7.53 pH Units (7.32-7.42) H 05/25/17 19:21 VBG pCO2 38 mmHg (41-51) L 05/25/17 19:21 VBG pO2 188 mmHg (25-50) H 05/25/17 19:21 VBG HCO3 32 mEq/L (21-27) H 05/25/17 19:21 Potassium 3.3 mEq/L (3.5-5.1) L 06/03/17 04:21 Carbon Dioxide 32 mEq/L (23-29) H 06/03/17 04:21 Creatinine 0.31 mg/dL (0.60-1.20) L 06/03/17 04:21 Calcium 8.0 mg/dL (8.6-10.3) L 06/03/17 04:21 Serum Total Protein 5.3 g/dL (6.4-8.9) L 05/25/17 19:06 Albumin 3.4 g/dL (3.5-5.7) L 05/25/17 19:06 Globulin 1.9 g/dL (2.4-3.5) L 05/25/17 19:06 - Microbiology Findings Microbiology Findings: Microbiology, Last 48 Hours 05/27/17 09:50 Sputum Culture - Preliminary Sputum Shahla aj - Clinical Findings Intake & Output: Intake & Output 06/02/17 06/03/17 06/03/17 23:59 07:59 15:59 Intake Total 990 / 990 1100 / 1100 240 / 240 Output Total 2000 / 1999 500 / 500 Balance 990 / 990 -900 / -900 -260 / -260 Weight 47.3 kg - VTE Documentation of Mechanical Device: Intermittent pneumatic compression device Consult Discharge Plan - Plan Referrals: Ron Ward MD [Primary Care Provider] - 06/07/17 3:00 pm
[2017-06-03] MEDS: *HR* LORazepam 0.5 MG TABLET PO PRN ×2 (13:13→20:47)
--- NOTE | 2017-06-03 13:43 | Palliative Progress Note ---
Date of Encounter: 06/03/17 Time of Encounter: 07:45 - Assessment and plan (1) Acute and chronic respiratory failure Current Visit: No Status: Chronic Assessment and plan: Getting slowly better. This continues to be true Qualifiers: Respiratory failure complication: hypoxia Qualified Code(s): J96.21 - Acute and chronic respiratory failure with hypoxia (2) Constipation Current Visit: No Status: Acute Assessment and plan: Bowel movement as recently as the continue current regimen continue to watch, of note the patient has refused at least 2 doses. Qualifiers: Constipation type: unspecified constipation type Qualified Code(s): K59.00 - Constipation, unspecified (3) COPD (chronic obstructive pulmonary disease) Current Visit: No Status: Chronic Assessment and plan: Continue breathing treatments Changes today. Qualifiers: COPD type: unspecified COPD Qualified Code(s): J44.9 - Chronic obstructive pulmonary disease, unspecified (4) Goals of care, counseling/discussion Current Visit: No Status: Acute Assessment and plan: Patient states that she has discussed with her wishes to remain a full code. Continues to wish to be a full code. We did have a nice discussion regarding goals of care. Currently she would describe her goals of care is all revolving around her 12-year-old grandson. She wishes to spend as much time with him as his humanly possible. Therefore she will down all of her needs in favor of his. I pursue aggressive care at all costs for as long as it works for her in any way shape or form. Tans were hospice fits in that she can have hospice whenever she feels it is appropriate. (5) Pain Current Visit: No Status: Acute Assessment and plan: Under control at this time continue current meds (6) Small cell 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 Current Visit: No Status: Chronic - Time Spent With Patient Total time spent is greater than 50% in coordination of care (as documented) at patient's floor/unit and/or counseling patient: - Subjective Interval history: Breathing, is feeling a little bit better per the patient scattered breathing treatment. Patient states also doing a little bit of trouble with that feeling of things getting hung up in her chest he does however feel this is gotten a little bit better.. States she did have a discussion with her regarding CODE STATUS and it remains full. Please see the assessment and plan. - Constitutional Vitals: Abnormal lab results Hgb 11.4 g/dL (11.5-15.4) L 06/03/17 04:21 RDW 15.1 % (11.5-14.5) H 06/03/17 04:21 Lymphocytes # 0.3 K/mcL (0.6-4.6) L 06/03/17 04:21 Nucleated RBCs/100 WBC 0.2 /100 WBC (0) H 05/29/17 04:07 Toxic Granulation Present (Not Present) A 05/30/17 06:32 Clumped Platelets Few (Not Present) A 05/29/17 04:07 VBG pH 7.53 pH Units (7.32-7.42) H 05/25/17 19:21 VBG pCO2 38 mmHg (41-51) L 05/25/17 19:21 VBG pO2 188 mmHg (25-50) H 05/25/17 19:21 VBG HCO3 32 mEq/L (21-27) H 05/25/17 19:21 Potassium 3.3 mEq/L (3.5-5.1) L 06/03/17 04:21 Carbon Dioxide 32 mEq/L (23-29) H 06/03/17 04:21 Creatinine 0.31 mg/dL (0.60-1.20) L 06/03/17 04:21 Calcium 8.0 mg/dL (8.6-10.3) L 06/03/17 04:21 Serum Total Protein 5.3 g/dL (6.4-8.9) L 05/25/17 19:06 Albumin 3.4 g/dL (3.5-5.7) L 05/25/17 19:06 Globulin 1.9 g/dL (2.4-3.5) L 05/25/17 19:06 General appearance: Present: no acute distress - Head Head exam: Present: atraumatic, normal inspection - Eye Eye exam: Present: normal appearance - ENT ENT exam: Present: mucous membranes moist - Respiratory Respiratory exam: Present: decreased breath sounds - Cardiovascular Cardiovascular exam: Present: RRR - GI/Abdominal GI/Abdominal exam: Present: hypoactive bowel sounds, soft. Absent: tenderness - Extremities Exam Extremities exam: Absent: pedal edema, tenderness - Neurological Exam Neurological exam: Present: alert, oriented X3 - Psychiatric Psychiatric exam: Absent: agitated, anxious - Skin Skin exam: Present: dry, warm Palliative Quality Palliative Quality: Screen for Code Status: Yes, Screen for Goals of Care: Yes, Screen for Pain: Yes, If Pain Regimen Started, Initiate Bowel Regimen: Yes, Screen for Nausea/Vomitting: Yes - Labs CBC & Chem 7: 06/03/17 04:21 06/03/17 04:21 Labs: Laboratory Results - last 24 hr 06/03/17 06/03/17 04:21 04:21 WBC 6.6 RBC 3.89 Hgb 11.4 L Hct 35.5 MCV 91.3 MCH 29.3 MCHC 32.1 RDW 15.1 H Plt Count 189 MPV 9.5 Immature Gran % 0.9 Seg Neutrophils % 91.9 Lymphocytes % 5.0 Monocytes % 1.8 Eosinophils % 0.2 Basophils % 0.2 Neutrophils # 6.1 Lymphocytes # 0.3 L Monocytes # 0.1 Eosinophils # 0.0 Basophils # 0.0 Sodium 137 Potassium 3.3 L Chloride 100 Carbon Dioxide 32 H BUN 8 Creatinine 0.31 L Est GFR ( Amer) > 60 Est GFR (Non-Af Amer) > 60 BUN/Creatinine Ratio 26 Glucose 91 Calculated Osmolality 282 Calcium 8.0 L - ABG Interpretation ABG results: PT/INR, D-dimer PT 10.0 Seconds (9.4-12.1) 05/25/17 19:06 Consult Discharge Plan - Plan Referrals: Ron Ward MD [Primary Care Provider] - 06/07/17 3:00 pm
--- NOTE | 2017-06-03 14:30 | Discharge Summary ---
- NOTES TO OUTPATIENT PROVIDER Notes to Outpatient Provider: Pt is going home with home health, may need additional orders as time progresses. Pt is on Cipro for pna, pt had abnormal sputum culture that may have complicated her course vs normal roverto. Orders not resulted at time of discharge: Pending orders 06/01/17 14:59 Sputum Culture [Culture,Sputum with Gram Stain] [] Stat Date of Encounter: 06/03/17 Time of Encounter: 11:30 - Discharge Diagnosis (1) HCAP (healthcare-associated pneumonia) Priority: Primary Status: Acute Comments: Patient has been treated for healthcare acquired pneumonia. Patient has multiple readmissions for COPD, dyspnea, chronic respiratory failure. Patient had abnormal sputum culture, antibiotics were changed to Cipro and clindamycin. Pulmonology has recommended continuing Cipro for 10-14 days. Blood cultures are negative 2. She has no fever, chills, no leukocytosis. Patient is tachycardic, however they feel this is due to respiratory distress and is her baseline. No sirs or sepsis criteria. Patient appears to be significantly better today and states that is she is feeling better, better than since admission. Patient states that she is ready to go home. Lungs remain clear and diminished today. There is no wheezing, rales, or rhonchi. Continue Cipro by mouth Patient has home O2, use as needed. Continue home nebulizer treatments, Symbicort, Mucinex, by mouth prednisone taper. Will taper by 10 mg weekly. (2) HTN (hypertension) Priority: Secondary Status: Chronic Comments: Vital signs within normal limits. In addition to normal home medications, lisinopril 2.5 mg by mouth daily has been added. Qualifiers: Hypertension type: essential hypertension Qualified Code(s): I10 - Essential (primary) hypertension (3) Chronic respiratory failure with hypoxia Priority: Secondary Status: Chronic Comments: Patient is at baseline O2 use. Continue O2 as needed to maintain sats greater than 92%. (4) Small cell lung cancer, right lower lobe Priority: Secondary Status: Chronic Comments: Chronic. Disease is progressing. She has been getting radiation while she has been in the hospital. She follows with acute oncology will continue to follow outpatient. She has been evaluated by palliative care. She will go home with [facility]. Pulmonology has discussed options with patient and have been jaime that they do not feel there would be much benefit. Patient states she is not sure she wants to go through bronchoscopy again. Patient's goal is to spend as much time with her grandson and she can. She wishes to remain a full code. Continue oncology follow-up outpatient. (5) COPD exacerbation Priority: Secondary Status: Acute Comments: Chronic. Plan as above for pneumonia. (6) Dysphagia Priority: Secondary Status: Acute Comments: Patient's symptoms have resolved. Continue PPI and Carafate. Qualifiers: Dysphagia type: unspecified Qualified Code(s): R13.10 - Dysphagia, unspecified Hospital course: Ms. Keenan is a 61 year old female with past medical history of chronic respiratory failure with hypoxia, COPD, hypertension, hyperlipidemia, small cell lung cancer in the right lower lobe. Patient is a re-admission for COPD exacerbation at [facility]. Patient's been treated with IV antibiotics, she has been transitioned to by mouth Cipro for abnormal sputum culture. Patient will maintain her home O2 after discharge. She also will be sent home with new antihypertensive, Lisinopril 2.5mg po daily, Carafate suspension, and Prilosec for dysphagia, likely secondary to radiation. Pt has been evaluated by palliative care and she will go home with home health. She also has been seen by pulmonology and has decided to not undergo any further procedures now. Pt is stable, fair condition. Labs WNL, pt will be sent home with some potassium supplements for 3.3 K+. Pt is ready for discharge. Will have home health. Discharge discussed with: patient, nurse - Time Spent with Patient Total time spent providing and/or coordinating discharge services: Less than 30 minutes - Discharge Medications Prescriptions: Promethazine [Phenergan] 12.5 mg PO Q6HR PRN #30 tablet PRN Reason: Nausea And Vomiting Ciprofloxacin [Cipro] 500 mg PO BID #20 tablet Lidocaine Patch [Lidoderm 5% patch] 1 each TP DAILY #30 adh..patch Lisinopril [Zestril] 2.5 mg PO DAILY #30 tablet Omeprazole [PriLOSEC] 20 mg PO DAILY@0630 #30 capsule. predniSONE [PredniSONE] See Taper PO DAILY #126 tablet predniSONE [PredniSONE] 10 mg PO DAILY #80 tablet Sucralfate [Carafate] 1 gm PO QIDAC #40 udc Home Medications: DULoxetine [Cymbalta] 30 mg PO HS 02/15/16 [History] Trazodone HCl 200 mg PO HS 02/15/16 [History] Albuterol Sulfate [Albuterol Inhaler] 2 puff IH Q6H PRN 10/14/16 [History] Budesonide/Formoterol 160/4.5 [Symbicort 160/4.5] 2 puff IH BIDR 10/14/16 [ History] Oxygen 2 l NS AD 10/14/16 [History] Tiotropium [Spiriva] 18 mcg IH DAILY 10/14/16 [History] Ascorbate Calcium [Vitamin C] 500 mg PO DAILY 12/14/16 [History] Polyethylene Glycol 3350 [MiraLAX] 17 gm PO DAILY PRN #30 powd.pack 12/22/16 [Rx ] Sennosides/Docusate Sodium [Senna-Docusate Sodium Tablet] 2 each PO BID PRN #60 tablet 12/22/16 [Rx] Calcium Carbonate/Vitamin D3 [Calcium 500 + Vit D Caplet] 2 each PO DAILY #60 tablet 12/26/16 [Rx] Cholecalciferol (D-3) [Vitamin D] 5,000 unit PO DAILY 02/02/17 [History] Melatonin [Melatin] 3 mg PO HS 02/02/17 [History] Albuterol Neb [Proventil Neb] 2.5 mg IH Q6H PRN 7 Days #30 vial 05/04/17 [Rx] Ipratropium/Albuterol Neb [Duoneb] 3 ml IH Q4HR 30 Days vial.neb 05/15/17 [Rx] Carvedilol 12.5 mg PO BID #60 tab 05/23/17 [Rx] GuaiFENesin ER [Mucinex] 600 mg PO BID #60 tbbp.12hr 05/23/17 [Rx] LORazepam [Ativan] 0.5 mg PO BID PRN 7 Days #14 tablet 05/23/17 [Rx] OxyCODONE Immed Rel [Roxicodone 10 MG] 10 mg PO TID PRN 7 Days #21 tablet [Rx] hydrALAZINE [HydrALAZINE] 25 mg PO Q8HR #90 tablet 05/23/17 [Rx] Ciprofloxacin [Cipro] 500 mg PO BID #20 tablet 06/03/17 [Rx] Lidocaine Patch [Lidoderm 5% patch] 1 each TP DAILY #30 adh..patch 06/03/17 [Rx] Lisinopril [Zestril] 2.5 mg PO DAILY #30 tablet 06/03/17 [Rx] Omeprazole [PriLOSEC] 20 mg PO DAILY@0630 #30 capsule. 06/03/17 [Rx] Promethazine [Phenergan] 12.5 mg PO Q6HR PRN #30 tablet 06/03/17 [Rx] Sucralfate [Carafate] 1 gm PO QIDAC #40 udc 06/03/17 [Rx] predniSONE [PredniSONE] 10 mg PO DAILY #80 tablet 06/03/17 [Rx] predniSONE [PredniSONE] See Taper PO DAILY #126 tablet 06/03/17 [Rx] Allergies/Adverse Reactions: 3 Allergy/AdvReac Type Severity Reaction Status Date / Time No Known Allergies Allergy Verified 05/27/17 08:12 Date of admission: 05/25/17 20:58 Primary care physician: Ron Ward MD Consults: 05/25/17 23:07 Consult to Assistant Head Cashier [CONS] Routine Reason for SW Consult: In [place] 05/29/17 11:29 Consult to Palliative Care [CONS] Routine Comment: Consulting Provider: Palliative Care [place] Reason for Consult: recommendations for home care, please. Time Notified: 11:30 Call Completed: Yes 05/30/17 18:38 Consult to Pulmonology [CONS] Routine Consulting Provider: Pulm Crit Care [facility] Sleep [place] Reason for Consult: Continued worsening respiratory status. Lung cancer, pt undergoing radiation. Pt not improving, does not want Hospice yet. Looking for recommendations to improve pt for discharge and avoid readmits. Call Completed: No Discharging clinician: Jacki Schwab Anticipated date of discharge: 06/03/17 - Constitutional Vitals: Temp Pulse Resp BP Pulse Ox 98.4 F 97 16 99/67 93 06/03/17 12:07 06/03/17 12:07 06/03/17 12:07 06/03/17 12:07 06/03/17 12:07 General appearance: Present: cachectic, cooperative, A&O X 3, pleasant, no acute distress, underweight, answers questions appropriately - Head Head exam: Present: atraumatic, normal inspection, normocephalic - Eye Eye exam: Present: normal appearance, conjuntiva pink, sclera anicteric - Neck Neck exam general surgery: Present: supple, trachea midline - Respiratory Respiratory exam: Present: decreased breath sounds, CTAB. Absent: accessory muscle use, chest wall tenderness, rales, rhonchi, wheezes - Cardiovascular Cardiovascular exam: Present: RRR, +S1, +S2. Absent: diastolic murmur, gallop, rubs, systolic murmur - GI/Abdominal GI/Abdominal exam: Present: normal bowel sounds, soft. Absent: distended, hepatomegaly, tenderness - Extremities Exam Extremities exam: Present: normal capillary refill, normal inspection, warm, radial pulses palpable and symmetrical. Absent: calf tenderness, cyanotic, pedal edema, tenderness - Neurological Exam Neurological exam: Present: alert, oriented X3, no focal deficits. Absent: altered, facial droop, speech deficit - Skin Skin exam: Present: dry, intact, normal color, warm. Absent: rash - Patient Status Disposition: Home Health Service Condition: Good Functional capacity at discharge: wheelchair bound Overall status at discharge: patient is not back to baseline - Discharge Instructions Follow Up With: Ron Ward MD [Primary Care Provider] - 06/07/17 3:00 pm Additional Instructions: Follow up with PCP as scheduled. Follow up with oncology as scheduled. Return to the ER as needed for any other problems or concerns. Take your medications as directed. Your new prescriptions are at [facility]. Return to your normal diet and activities as tolerated. - Diet and Activity Activity: increase activity as tolerated, resume usual activities as tolerated, wear oxygen at all times Diet: advance to your usual diet - VTE Documentation of Mechanical Device: Intermittent pneumatic compression device
--- NOTE | 2017-06-03 15:03 | Physician Discharge Referral ---
Home Health/Hosp Referral Info Transfer to: Home Health Provider in Charge Post Discharge: PCP - Diagnosis (1) HCAP (healthcare-associated pneumonia) Priority: Primary Status: Acute (2) HTN (hypertension) Priority: Secondary Status: Chronic (3) Chronic respiratory failure with hypoxia Priority: Secondary Status: Chronic (4) Small cell lung cancer, right lower lobe Priority: Secondary Status: Chronic (5) COPD exacerbation Priority: Secondary Status: Acute (6) Dysphagia Priority: Secondary Status: Acute - Respiratory Orders Oxygen / L per min (2 liters via nasal canula, titrate as needed to maintain sats > 92%) Smoking Cessation: Smoking cessation has been advised. For more information, call the [place] Tobacco Quit Line at 8-843-XFQI-NOW. - Diet/Nutrition Diet/Nutrition Orders: Regular - Activity Activity Orders: Up ad em - Services Needed Following services are medically necessary services: Nursing, Home Health Aide, Physical Therapy, Occupational Therapy - Transfer Medications Prescriptions: Promethazine [Phenergan] 12.5 mg PO Q6HR PRN #30 tablet PRN Reason: Nausea And Vomiting Ciprofloxacin [Cipro] 500 mg PO BID #20 tablet Lidocaine Patch [Lidoderm 5% patch] 1 each TP DAILY #30 adh..patch Lisinopril [Zestril] 2.5 mg PO DAILY #30 tablet Omeprazole [PriLOSEC] 20 mg PO DAILY@0630 #30 capsule. predniSONE [PredniSONE] See Taper PO DAILY #126 tablet predniSONE [PredniSONE] 10 mg PO DAILY #80 tablet Sucralfate [Carafate] 1 gm PO QIDAC #40 udc Home Medications: DULoxetine [Cymbalta] 30 mg PO HS 02/15/16 [History] Trazodone HCl 200 mg PO HS 02/15/16 [History] Albuterol Sulfate [Albuterol Inhaler] 2 puff IH Q6H PRN 10/14/16 [History] Budesonide/Formoterol 160/4.5 [Symbicort 160/4.5] 2 puff IH BIDR 10/14/16 [ History] Oxygen 2 l NS AD 10/14/16 [History] Tiotropium [Spiriva] 18 mcg IH DAILY 10/14/16 [History] Ascorbate Calcium [Vitamin C] 500 mg PO DAILY 12/14/16 [History] Polyethylene Glycol 3350 [MiraLAX] 17 gm PO DAILY PRN #30 powd.pack 12/22/16 [Rx ] Sennosides/Docusate Sodium [Senna-Docusate Sodium Tablet] 2 each PO BID PRN #60 tablet 12/22/16 [Rx] Calcium Carbonate/Vitamin D3 [Calcium 500 + Vit D Caplet] 2 each PO DAILY #60 tablet 12/26/16 [Rx] Cholecalciferol (D-3) [Vitamin D] 5,000 unit PO DAILY 02/02/17 [History] Melatonin [Melatin] 3 mg PO HS 02/02/17 [History] Albuterol Neb [Proventil Neb] 2.5 mg IH Q6H PRN 7 Days #30 vial 05/04/17 [Rx] Ipratropium/Albuterol Neb [Duoneb] 3 ml IH Q4HR 30 Days vial.neb 05/15/17 [Rx] Carvedilol 12.5 mg PO BID #60 tab 05/23/17 [Rx] GuaiFENesin ER [Mucinex] 600 mg PO BID #60 tbbp.12hr 05/23/17 [Rx] LORazepam [Ativan] 0.5 mg PO BID PRN 7 Days #14 tablet 05/23/17 [Rx] OxyCODONE Immed Rel [Roxicodone 10 MG] 10 mg PO TID PRN 7 Days #21 tablet [Rx] hydrALAZINE [HydrALAZINE] 25 mg PO Q8HR #90 tablet 05/23/17 [Rx] Ciprofloxacin [Cipro] 500 mg PO BID #20 tablet 06/03/17 [Rx] Lidocaine Patch [Lidoderm 5% patch] 1 each TP DAILY #30 adh..patch 06/03/17 [Rx] Lisinopril [Zestril] 2.5 mg PO DAILY #30 tablet 06/03/17 [Rx] Omeprazole [PriLOSEC] 20 mg PO DAILY@0630 #30 capsule. 06/03/17 [Rx] Promethazine [Phenergan] 12.5 mg PO Q6HR PRN #30 tablet 06/03/17 [Rx] Sucralfate [Carafate] 1 gm PO QIDAC #40 udc 06/03/17 [Rx] predniSONE [PredniSONE] 10 mg PO DAILY #80 tablet 06/03/17 [Rx] predniSONE [PredniSONE] See Taper PO DAILY #126 tablet 06/03/17 [Rx] Allergies/Adverse Reactions: 3 Allergy/AdvReac Type Severity Reaction Status Date / Time No Known Allergies Allergy Verified 05/27/17 08:12 Certification: Further, I certify that my clinical findings support that this patient is homebound (i.e. absences from home require considerable and taxing effort and are for medical reasons or shinto services or infrequently or short duration when for other reasons) because: Homebound Reason: Patient requires assistance of a person or device to safely leave home, Leaving home requires considerable and taxing effort due to condition, Severity of cardiac or pulmonary status limits activity tolerance Attestation: My signature below is to certify that this patient is under my care and that I, or nurse practitioner, or a physician's household personal assistant working with me, has a face-to -face encounter with this patient.
[2017-06-03] MEDS: Ondansetron 4 MG/2 ML VIAL IVP PRN (16:55)
[2017-06-03] MEDS: Melatonin 3 MG TABLET PO SCH (20:44)
[2017-06-03] MEDS: traZODone 50 MG TABLET PO SCH (20:44)
[2017-06-04] MEDS: Ipratropium/Albuterol Neb 3 ML IH SCH ×6 (03:53→23:57)
[2017-06-04] MEDS: Tiotropium 18 MCG inhalation IH SCH (07:37)
[2017-06-04] MEDS: Budesonide/Formoterol 160/4.5 MDI IH SCH ×2 (07:48→19:30)
[2017-06-04] MEDS ORDERED: 0.9 % Sodium Chloride 1,000 ML IVC SCH (11:46)
[2017-06-04] MEDS: Cholecalciferol (D-3) 1,000 UNIT TABLET PO SCH (11:51)
[2017-06-04] MEDS: Sennosides/Docusate Sodium TABLET PO SCH ×2 (11:51→20:46)
[2017-06-04] MEDS: Ascorbic Acid 500 MG TABLET PO SCH (11:51)
[2017-06-04] MEDS: predniSONE 20 MG TABLET PO SCH (11:51)
[2017-06-04] MEDS: hydrALAZINE 25 MG TABLET PO SCH ×2 (11:52→16:08)
[2017-06-04] MEDS ORDERED: Isovue-370 500 ML INFUS..BTL IV ONE (13:08)
[2017-06-04] MEDS: *HR* Promethazine 25 MG/ML VIAL IVP PRN (16:04)
--- NOTE | 2017-06-04 16:56 | Event Note ---
Date of Encounter: 06/04/17 Time of Encounter: 16:54 Plan was for patient to discharge home today however she was found to be tachycardic with worsening shortness of breath this morning. Given her history of malignancy a chest CTA was ordered which showed new diffuse tree-in-bud and clustered nodularities concerning for aspiration along with partial occlusion of right lower lobe, segmental and subsegmental bronchi concerning for mucous plugging, aspiration. Discussed with pulmonology who felt CTA results most likely represent chronic aspiration. Of note patient does report coughing/ choking at times while eating. ST was consult and he did a bedside eval and did not note any signs/symptoms of aspiration. Start Unasyn to cover for aspiration pneumonia. Check sputum culture. Modified barium swallow/ esophagram ordered. Cancel discharge for now.
[2017-06-04] MEDS: Albuterol 2.5 MG/3 ML NEBULIZER IH PRN ×2 (17:28→21:26)
[2017-06-04] MEDS: Ampicillin/Sulbactam 3,000 MG in 0.9 % Sodium Chloride Mini Bag 100 ML IVPB SCH ×2 (17:59→23:22)
[2017-06-04] MEDS: *HR* LORazepam 0.5 MG TABLET PO PRN (18:23)
[2017-06-04] MEDS: traZODone 50 MG TABLET PO SCH (20:46)
[2017-06-04] MEDS: *HR* HYDROcodone/Acet 5/325 mg TABLET PO PRN (20:51)
[2017-06-04] MEDS: Melatonin 3 MG TABLET PO SCH (20:52)
[2017-06-04] MEDS: 0.9 % Sodium Chloride 1,000 ML IVC SCH ×2 (22:56→22:57)
[2017-06-05] MEDS: hydrALAZINE 25 MG TABLET PO SCH ×4 (00:06→23:43)
[2017-06-05] MEDS: Ipratropium/Albuterol Neb 3 ML IH SCH ×5 (03:13→19:35)
[2017-06-05 03:35] LABS: Hematocrit 31.8 % (35.3-44.9); Hemoglobin 10.3 g/dL (11.5-15.4); Mean Corpuscular HGB Conc 32.4 g/dL (31.6-35.5); Mean Corpuscular Hemoglobin 29.9 pg (28.0-33.3); Mean Corpuscular Volume 92.2 fL (83.0-100.0); Mean Platelet Volume 9.2 fL (9.4-12.4); Platelet Count 207 K/mcL (140-400); Red Blood Count 3.45 M/mcL (3.82-4.97); Red Cell Distribution Width 14.8 % (11.5-14.5)
[2017-06-05 03:55] LABS: BUN/Creatinine Ratio 27 (6-26); Blood Urea Nitrogen 8 mg/dL (8-23); Calcium 7.9 mg/dL (8.6-10.3); Carbon Dioxide 35 mEq/L (23-29); Chloride 100 mEq/L (98-107); Glucose 99 mg/dL (70-105); Osmolality,Calculated 282 (280-300); Potassium 3.3 mEq/L (3.5-5.1); Sodium 137 mEq/L (136-145); eGFR For African Americans > 60 (> 60); eGFR For Non-African Americans > 60 (> 60)
[2017-06-05] MEDS: Ampicillin/Sulbactam 3,000 MG in 0.9 % Sodium Chloride Mini Bag 100 ML IVPB SCH ×4 (05:41→23:50)
[2017-06-05] MEDS: Budesonide/Formoterol 160/4.5 MDI IH SCH ×2 (07:27→19:35)
[2017-06-05] MEDS: Tiotropium 18 MCG inhalation IH SCH (07:29)
[2017-06-05] MEDS: Sennosides/Docusate Sodium TABLET PO SCH ×2 (09:00→20:44)
[2017-06-05] MEDS: Cholecalciferol (D-3) 1,000 UNIT TABLET PO SCH (09:00)
[2017-06-05] MEDS: Ascorbic Acid 500 MG TABLET PO SCH (09:01)
[2017-06-05] MEDS: predniSONE 20 MG TABLET PO SCH (09:01)
--- NOTE | 2017-06-05 09:02 | Pulmonology Progress Note ---
Date of Encounter: 06/05/17 Time of Encounter: 08:50 Assessment and Plan (1) Postobstructive pneumonia Current Visit: No Status: Acute In conclusion mistrust by is a 61-year-old woman who unfortunately has metastatic and essentially terminal lung cancer. This is complicated by severe underlying COPD. She has had readmissions to the hospital on a near weekly basis over the last month and a monthly basis prior to that. Despite the use of chemotherapy and now radiation along with bronchoscopy with balloon dilation and debulking a obstructing right hilar mass continues to obstruct the right lower lobe with evidence of chronic postobstructive pneumonitis. In addition she has rated gravity evidence on this admission of diffuse lower lobe bronchiolitis. I had an extensive conversation with her and her at the bedside today by general impressions are this #1 she has terminal cancer. And I explained to her again that she has to have very realistic expectations for the short term. Her goals that she is outlined it to me would be to get home and spend as much time with her grandson is possible. It is unclear to me exactly what prompts admissions to the hospital as when she is admitted her vital signs and blood chemistry along with imaging seems to be underwhelming with regards to level of symptoms. And I suspect that is going on is that the patient has such severe underlying lung disease from COPD and now complicated by cancer that any small amount of inflammation can cause increased work entry breathing which sets off a cycle of panic within the patient which she confirms. This increases her respiratory rate further leading to further gas trapping and increased dyspnea resulting in admission to the hospital. She does admit to chronic anxiety she takes a small dose of a benzodiazepine for this but feels that it is not sufficient. In addition to the new CT angiogram that was performed yesterday this is shows evidence of broad lower lobe bronchiolitis which one of the top differentials is for chronic aspiration she does admit to choking on food and vomiting occasionally so I recommended a formal modified barium swallow results of this have not been printed as of yet but if there is any question she needs to have GI consultation for further management. And I would recommend treating empirically with antimicrobials for aspiration Pending further workup. The general recommendations would be as follows: 1. Maximize time out of the hospital with augmentation of control of anxiety and work of breathing. This can be done a couple of ways and I would also invite palliative care to weigh in on this matter. One option scheduling a low- dose benzodiazepine such as clonazepam twice daily. And start a medication such as BuSpar 7.5 mg twice daily which can be titrated up every 2-3 days by 2.5 mg 2 goal of 20-30 mg resolution of symptoms. Additionally the long-term use of oral opiates in this population can have benefit 2 recommend continuation of antimicrobials for aspiration she is currently on Unasyn which should be sufficient this can be transitioned to Augmentin to treat for 2 weeks 3. Need to continue current management of COPD including oral prednisone at 40 mg with plan to taper by 10 mg increments weekly continue bronchodilators 4. Continue to follow-up with oncology/radiation oncology for treatment of underlying lung malignancy unclear how much further response she will have with regards to right hilar tumor bronchoscopy could be reconsidered in this patient although I think that the benefits would be likely very short term if any she wants to hold off on this for right now. Unfortunately as outlined earlier her prognosis is very poor at had several ajime conversations with this patient and her at bedside although she is not ready to transition into a hospice type of care it is my impression were running out of options and will be helpful outside of the palliative setting (2) Acute and chronic respiratory failure Current Visit: No Status: Chronic Qualifiers: Respiratory failure complication: hypoxia Qualified Code(s): J96.21 - Acute and chronic respiratory failure with hypoxia (3) Small cell 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 Current Visit: No Status: Chronic (4) COPD exacerbation Current Visit: No Status: Acute (5) Goals of care, counseling/discussion Current Visit: No Status: Acute (6) Metastatic lung cancer (metastasis from lung to other site) Current Visit: Yes Status: Acute Qualifiers: Laterality: unspecified laterality Qualified Code(s): C34.90 - Malignant neoplasm of unspecified part of unspecified bronchus or lung Subjective Principal diagnosis: Pneumonia Interval history: Yesterday Domi had a episode of significant SOB and Tachycardia prompting CTA which was notable for bilateral tree-in-bud opacities consistent with bronchiolitis. She was started on coverage for aspiration pneumonia. Today she feels little bit better nearing her baseline. Objective PUL Vital signs: Last Vital Signs Temp 98.7 F 06/05/17 07:14 Pulse 120 06/05/17 07:14 Resp 20 06/05/17 07:27 BP 111/80 06/05/17 07:14 Pulse Ox 97 06/05/17 07:27 General appearance: no acute distress, other (Tired appearing) Eyes: nonicteric Auscultation: bilateral: wheezes, rhonchi Cardiovascular: regular rate and rhythm Extremities: no edema normal mental status, non-focal exam Results - Laboratory Findings CBC and BMP: 06/05/17 02:50 06/05/17 02:50 PT/INR, D-dimer PT 10.0 Seconds (9.4-12.1) 05/25/17 19:06 Abnormal lab findings: Abnormal lab results RBC 3.45 M/mcL (3.82-4.97) L 06/05/17 02:50 Hgb 10.3 g/dL (11.5-15.4) L 06/05/17 02:50 Hct 31.8 % (35.3-44.9) L 06/05/17 02:50 RDW 14.8 % (11.5-14.5) H 06/05/17 02:50 MPV 9.2 fL (9.4-12.4) L 06/05/17 02:50 Lymphocytes # 0.3 K/mcL (0.6-4.6) L 06/03/17 04:21 Nucleated RBCs/100 WBC 0.2 /100 WBC (0) H 05/29/17 04:07 Toxic Granulation Present (Not Present) A 05/30/17 06:32 Clumped Platelets Few (Not Present) A 05/29/17 04:07 VBG pH 7.53 pH Units (7.32-7.42) H 05/25/17 19:21 VBG pCO2 38 mmHg (41-51) L 05/25/17 19:21 VBG pO2 188 mmHg (25-50) H 05/25/17 19:21 VBG HCO3 32 mEq/L (21-27) H 05/25/17 19:21 Potassium 3.3 mEq/L (3.5-5.1) L 06/05/17 02:50 Carbon Dioxide 35 mEq/L (23-29) H 06/05/17 02:50 Creatinine 0.30 mg/dL (0.60-1.20) L 06/05/17 02:50 BUN/Creatinine Ratio 27 (6-26) H 06/05/17 02:50 Calcium 7.9 mg/dL (8.6-10.3) L 06/05/17 02:50 Serum Total Protein 5.3 g/dL (6.4-8.9) L 05/25/17 19:06 Albumin 3.4 g/dL (3.5-5.7) L 05/25/17 19:06 Globulin 1.9 g/dL (2.4-3.5) L 05/25/17 19:06 - Microbiology Findings Microbiology Findings: Microbiology, Last 48 Hours 06/03/17 18:35 Sputum Culture - Final Sputum Corynebacterium species - Clinical Findings Intake & Output: Intake & Output 06/04/17 06/05/17 06/05/17 23:59 07:59 15:59 Intake Total 420 / 420 100 / 100 Balance 420 / 420 100 / 100 Weight 46.8 kg - VTE Documentation of Mechanical Device: Intermittent pneumatic compression device Consult Discharge Plan - Plan Additional Instructions: Follow up with PCP as scheduled. Follow up with oncology as scheduled. Return to the ER as needed for any other problems or concerns. Take your medications as directed. Your new prescriptions are at [facility]. Return to your normal diet and activities as tolerated. Referrals: Ron Ward MD [Primary Care Provider] - 06/07/17 3:00 pm Prescriptions: Promethazine [Phenergan] 12.5 mg PO Q6HR PRN #30 tablet PRN Reason: Nausea And Vomiting Ciprofloxacin [Cipro] 500 mg PO BID #20 tablet Lidocaine Patch [Lidoderm 5% patch] 1 each TP DAILY #30 adh..patch Lisinopril [Zestril] 2.5 mg PO DAILY #30 tablet Omeprazole [PriLOSEC] 20 mg PO DAILY@0630 #30 capsule. predniSONE [PredniSONE] See Taper PO DAILY #126 tablet predniSONE [PredniSONE] 10 mg PO DAILY #80 tablet Sucralfate [Carafate] 1 gm PO QIDAC #40 [facility] [place]
--- NOTE | 2017-06-05 09:26 | Event Note ---
Date of Encounter: 06/05/17 Time of Encounter: 09:10 Patient d/c was cancelled yesterday r/t tachycardia and questionable aspiration. MBS demonstrated possible esophageal stricture. Patient resting quietly with at bedside. Waiting to hear if scope may be recommended. She is comfortable - pain medications effective. Despite the complications of her illness, she still desires aggressive care. Palliative will sign off, please reconsult if needed.
[2017-06-05] MEDS ORDERED: *HR* Propofol 200 MG/20 ML VIAL IVP ONE (13:32)
--- NOTE | 2017-06-05 13:35 | Anesthesia Evaluation PreOp ---
Date of Encounter: 06/05/17 Time of Encounter: 13:32 - Past History Planned Operation: EGD Cardiac History: HTN Pulmonary History: Smoker, Pack/yr (1.5 ppd x 47 years), COPD (2L O2 NC, chronic resp. failure), Other (Lung CA, Hilar mass) COLLATOR History: Other (Anxiety/Depression) Other Medical History: Other (Chronic Lumbar pain) Anesthesia History: Past Anesthesia (EBUS, Balloon diitation with debulking) Alcohol Use: none Drug use: none Medications and Allergies DULoxetine [Cymbalta] 30 mg PO HS 02/15/16 [History] Trazodone HCl 200 mg PO HS 02/15/16 [History] Albuterol Sulfate [Albuterol Inhaler] 2 puff IH Q6H PRN 10/14/16 [History] Budesonide/Formoterol 160/4.5 [Symbicort 160/4.5] 2 puff IH BIDR 10/14/16 [ History] Oxygen 2 l NS AD 10/14/16 [History] Tiotropium [Spiriva] 18 mcg IH DAILY 10/14/16 [History] Ascorbate Calcium [Vitamin C] 500 mg PO DAILY 12/14/16 [History] Polyethylene Glycol 3350 [MiraLAX] 17 gm PO DAILY PRN #30 powd.pack 12/22/16 [Rx ] Sennosides/Docusate Sodium [Senna-Docusate Sodium Tablet] 2 each PO BID PRN #60 tablet 12/22/16 [Rx] Calcium Carbonate/Vitamin D3 [Calcium 500 + Vit D Caplet] 2 each PO DAILY #60 tablet 12/26/16 [Rx] Cholecalciferol (D-3) [Vitamin D] 5,000 unit PO DAILY 02/02/17 [History] Melatonin [Melatin] 3 mg PO HS 02/02/17 [History] Albuterol Neb [Proventil Neb] 2.5 mg IH Q6H PRN 7 Days #30 vial 05/04/17 [Rx] Ipratropium/Albuterol Neb [Duoneb] 3 ml IH Q4HR 30 Days vial.neb 05/15/17 [Rx] Carvedilol 12.5 mg PO BID #60 tab 05/23/17 [Rx] GuaiFENesin ER [Mucinex] 600 mg PO BID #60 tbbp.12hr 04/05/18 [Rx] LORazepam [Ativan] 0.5 mg PO BID PRN 7 Days #14 tablet 05/23/17 [Rx] OxyCODONE Immed Rel [Roxicodone 10 MG] 10 mg PO TID PRN 7 Days #21 tablet [Rx] hydrALAZINE [HydrALAZINE] 25 mg PO Q8HR #90 tablet 05/23/17 [Rx] Ciprofloxacin [Cipro] 500 mg PO BID #20 tablet 06/03/17 [Rx] Lidocaine Patch [Lidoderm 5% patch] 1 each TP DAILY #30 adh..patch 06/03/17 [Rx] Lisinopril [Zestril] 2.5 mg PO DAILY #30 tablet 06/03/17 [Rx] Omeprazole [PriLOSEC] 20 mg PO DAILY@0630 #30 capsule. 06/03/17 [Rx] Promethazine [Phenergan] 12.5 mg PO Q6HR PRN #30 tablet 06/03/17 [Rx] Sucralfate [Carafate] 1 gm PO QIDAC #40 [facility] 06/03/17 [Rx] predniSONE [PredniSONE] 10 mg PO DAILY #80 tablet 06/03/17 [Rx] predniSONE [PredniSONE] See Taper PO DAILY #126 tablet 06/03/17 [Rx] 3 Allergy/AdvReac Type Severity Reaction Status Date / Time No Known Allergies Allergy Verified 05/27/17 08:12 - Meds/Allergy Pre-op Review Medications Reviewed: Yes Allergies Reviewed: Yes Beta Blockers on Current Med List: Yes If Beta Blockers taken, Date/Time (Last Dose taken): 09:00 06/05/17 Anesthesia Results - Labs 06/05/17 02:50 06/05/17 02:50 - Imaging EKG: report reviewed (SR) Anesthesia Exam Vital Signs/O2 Sat, Most Current Temp Pulse Resp BP Pulse Ox 99.7 F H 109 14 110/51 94 06/05/17 11:15 06/05/17 11:15 06/05/17 11:15 06/05/17 11:15 06/05/17 11:15 Weight: 46.8 Kg NPO (# of Hours): > 8 hrs Pain Scale: 0 Pain Scale Used: Numeric (1 - 10) - HEENT Pupil (Motor): Pupils equal, EOMI Mallampati: II Teeth: Normal Oral Opening: Greater than 3 - COLLATOR LOC: Oriented COLLATOR Motor: Normal RUE, Normal LUE, Normal RLE, Normal LLE, Normal Face COLLATOR Sensory: Normal: RUE, LUE, RLE, LLE, Face - Cardiac Rhythm: Regular Murmur: None JVD: No Carotid Bruit: No - Pulmonary Breath Sounds: bilateral Clear Respiratory Effort: Symmetrical Anesthesia Assess/Plan ASA Score: 3 Modified Dyana Scale for Level of Consciousness: Cooperative, oriented, and tranquil Anesthetic Plan: MAC Autologous Blood: Yes Monitoring Plan: Standard Monitors Recovery Plan: Other
[2017-06-05] MEDS ORDERED: Albuterol 2.5 MG/3 ML NEBULIZER ONE (13:52)
[2017-06-05] MEDS ORDERED: Albuterol 2.5 MG/3 ML NEBULIZER IH ONE (14:03)
[2017-06-05] MEDS: 0.9 % Sodium Chloride 1,000 ML IVC SCH (14:05)
--- NOTE | 2017-06-05 15:02 | Anesthesia Evaluation Post Op ---
Date of Encounter: 06/05/17 Time of Encounter: 15:01 - Vital Signs Vital Signs: 3 Vital Signs Time 1455 BP 80/47 Pulse 99 Resp 18 O2 Sat 96 - Lungs Lungs: Clear Ascult./Percussion - Airway Airway: Non-obstructed - Cardiovascular Regular Rate - Mental Status Mental Status: Alert & Oriented, Answers Appropriately - Nausea Vomiting Nausea Vomiting: Not Present - Hydration Hydration: NPO - Discharge PostOp Status: Discharge Patient to home
--- NOTE | 2017-06-05 15:44 | Internal Med Progress Note ---
Date of Encounter: 06/05/17 Time of Encounter: 15:32 - Assessment and plan (1) HCAP (healthcare-associated pneumonia) Current Visit: Yes Status: Acute Assessment and plan: Bacterial. Pulmonology saw again today Blood cultures negative 2. Patient is afebrile, normotensive, no signs of sirs or sepsis. Patient in mild respiratory distress which is her baseline. Oxygen as needed to maintain sats greater than 92% Continue nebulizer treatments, Symbicort, Mucinex, steroids have been transitioned to by mouth prednisone 40 mg daily Likely chronic aspiration with EGD pending S/P MBS Pulmonary wrote the following: The general recommendations would be as follows: 1. Maximize time out of the hospital with augmentation of control of anxiety and work of breathing. This can be done a couple of ways and I would also invite palliative care to weigh in on this matter. One option scheduling a low- dose benzodiazepine such as clonazepam twice daily. And start a medication such as BuSpar 7.5 mg twice daily which can be titrated up every 2-3 days by 2.5 mg 2 goal of 20-30 mg resolution of symptoms. Additionally the long-term use of oral opiates in this population can have benefit 2. Recommend continuation of antimicrobials for aspiration she is currently on Unasyn which should be sufficient this can be transitioned to Augmentin to treat for 2 weeks 3. Need to continue current management of COPD including oral prednisone at 40 mg with plan to taper by 10 mg increments weekly continue bronchodilators 4. Continue to follow-up with oncology/radiation oncology for treatment of underlying lung malignancy unclear how much further response she will have with regards to right hilar tumor, bronchoscopy could be reconsidered in this patient although I think that the benefits would be likely very short term if any she wants to hold off on this for right now. (2) HTN (hypertension) Current Visit: Yes Status: Chronic Assessment and plan: Chronic, was hypotensive and Lisinopril decreased to 2.5mg po daily. Stable today Qualifiers: Hypertension type: essential hypertension Qualified Code(s): I10 - Essential (primary) hypertension (3) Chronic respiratory failure with hypoxia Current Visit: Yes Status: Chronic Assessment and plan: Chronic. Titrate O2 to maintain sats greater than 92%. Patient has home O2, will continue after discharge. (4) Small cell lung cancer, right lower lobe Current Visit: Yes Status: Chronic Assessment and plan: Chronic. Patient has completed course of radiation. Patient follows with [facility]. Follow up outpatient. Patient has also been evaluated by palliative care. Unfortunately, there are not many options as there is no respiratory home care in the area. She is eligible for home health care visits, will be discharged with [facility] when stable Pulmonology has discussed respiratory status with pt, they have explained her condition is clinically deteriorating secondary to malignancy. They discussed the option of repeating the bronchoscopy and another balloon dilatation versus attempting stents, however patient has 1 more radiation to do. Patient will discuss 3 options and pulmonology will follow-up with them as to their decision. (5) COPD exacerbation Current Visit: Yes Status: Acute Assessment and plan: Chronic. Plan as above. (6) Dysphagia Current Visit: Yes Status: Acute Assessment and plan: Patient had a modified barium swallow completed which showed stricture versus mass pushing on esophagus. GI was consult it and she is undergoing an EGD today. Await results. She is on a modified soft diet at this time. Qualifiers: Dysphagia type: unspecified Qualified Code(s): R13.10 - Dysphagia, unspecified - Time Spent With Patient Total time spent is greater than 50% in coordination of care (as documented) at patient's floor/unit and/or counseling patient: - Subjective Interval history: Patient is sitting up in bed on a breathing treatment. She denies any complaints of fever chills chest pain but remains with shortness of breath. - Constitutional Vitals: Temp Pulse Resp BP Pulse Ox 98.0 F 108 14 107/69 91 06/05/17 13:59 06/05/17 15:11 06/05/17 15:11 06/05/17 13:59 06/05/17 15:11 General appearance: Present: cachectic, cooperative, A&O X 3, pleasant, underweight, answers questions appropriately - Head Head exam: Present: atraumatic, normocephalic - Eye Eye exam: Present: PERRL, conjuntiva pink, sclera anicteric Pupils: Present: PERRL - Neck Neck exam general surgery: Present: supple, trachea midline. Absent: lymphadenopathy - Respiratory Respiratory exam: Present: decreased breath sounds, rhonchi, wheezes. Absent: accessory muscle use, rales - Cardiovascular Cardiovascular exam: Present: RRR, +S1, +S2. Absent: diastolic murmur, gallop, rubs, systolic murmur - GI/Abdominal GI/Abdominal exam: Present: normal bowel sounds, soft, no peritoneal signs. Absent: distended, tenderness - Extremities Exam Extremities exam: Present: warm, radial pulses palpable and symmetrical. Absent : calf tenderness, cyanotic, pedal edema - Neurological Exam Neurological exam: Present: alert, CN II-XII intact, oriented X3, no focal deficits. Absent: pronater drift, facial droop, speech deficit - Skin Skin exam: Present: dry, intact, warm Internal Medicine: Result - Labs CBC & Chem 7: 06/05/17 02:50 06/05/17 02:50 Labs: Short CBC 06/05/17 Range/Units 02:50 WBC 6.7 (4.3-11.1) K/mcL Hgb 10.3 L (11.5-15.4) g/dL Hct 31.8 L (35.3-44.9) % Plt Count 207 (140-400) K/mcL BMP 06/05/17 02:50 Sodium 137 Potassium 3.3 L Chloride 100 Carbon Dioxide 35 H BUN 8 Creatinine 0.30 L Glucose 99 Calcium 7.9 L - ABG Interpretation ABG results: PT/INR, D-dimer PT 10.0 Seconds (9.4-12.1) 05/25/17 19:06 - Impressions Impressions Barium Swallow X-Ray 06/05/17 08:00 IMPRESSION: Narrowing of a relatively long segment of the mid esophagus and delayed passage of a 1/2 inch barium tablet. Findings are suspicious for stricture, with esophageal mass considered less likely due to length of this segment. Consider correlation with endoscopy. D/ / Afshin Ruiz MD / Afshin Ruiz MD Interpreting Provider: Afshin Ruiz MD - VTE Documentation of Mechanical Device: Intermittent pneumatic compression device Consult Discharge Plan - Plan Additional Instructions: Follow up with PCP as scheduled. Follow up with oncology as scheduled. Return to the ER as needed for any other problems or concerns. Take your medications as directed. Your new prescriptions are at [facility]. Return to your normal diet and activities as tolerated. Referrals: Ron Ward MD [Primary Care Provider] - 06/07/17 3:00 pm Prescriptions: Promethazine [Phenergan] 12.5 mg PO Q6HR PRN #30 tablet PRN Reason: Nausea And Vomiting Ciprofloxacin [Cipro] 500 mg PO BID #20 tablet Lidocaine Patch [Lidoderm 5% patch] 1 each TP DAILY #30 adh..patch Lisinopril [Zestril] 2.5 mg PO DAILY #30 tablet Omeprazole [PriLOSEC] 20 mg PO DAILY@0630 #30 capsule. predniSONE [PredniSONE] See Taper PO DAILY #126 tablet predniSONE [PredniSONE] 10 mg PO DAILY #80 tablet Sucralfate [Carafate] 1 gm PO QIDAC #40 [facility]
--- NOTE | 2017-06-05 17:35 | Gastroenterology Consult Note ---
<Mirian Chase - Last Filed: 06/05/17 17:28> Date of Encounter: 06/05/17 Time of Encounter: 11:45 - Assessment and plan (1) Dysphagia Status: Acute Assessment and plan: Barium swallow showed stricture vs mass. EGD was done and showed severe radiation esophagitis will start carafate suspension and viscous lidocaine. Qualifiers: Dysphagia type: unspecified Qualified Code(s): R13.10 - Dysphagia, unspecified - Time Spent With Patient Total time spent is greater than 50% in coordination of care (as documented) at patient's floor/unit and/or counseling patient: GI History of Present Illness - Data of Consult Patient: new to practice Consult date: 06/05/17 Requesting Physician: Heaven Perkins CNP - Consult Narrative Reason for consult: abnormal barium swallow History of present illness: Ms. Keenan is a 61 year old female with PMH of small cell lung cancer s/p chemotherapy (finished 5 weeks ago) finished XRT last week, COPD, Chronic hypoxic resp failure on 2 lit home O2 and recurrent hospitalizations for likely post obstructive pneumonia. She was just discharged from our hospital on to [facility]. She presented to ER with worsening shortness of breath. Barium swallow showed narrowing of a relatively long segment of the mid esophagus and delayed passage of a 1/2 inch barium tablet. Findings are suspicious for stricture, with esophageal mass considered less likely due to length of this segment. She admits to difficulty swallowing for the past 3-4 days. She has some increased Gerd. She denies abdominal pain, diarrhea, constipation, bloody or tarry stools. Past Med Surg Social Fam HX - Past Medical History Medical history: cancer, COPD, hypertension Psychiatric history: anxiety, depression - Past Surgical History Surgical History: hysterectomy - Social History Smoking Status: Current every day smoker Smokeless Tobacco Status: No Alcohol use: none Drug use: none - Family History Sister Adopted: No Family Member Ethnicity: Non- Living Status: Still Living Age at : 58 Hx Family Cardiac Disorders: Yes (HTN) Hx Family Respiratory Disorders: No Hx Family Cancer: Yes (Lymphoma) Hx Family GI Disorders: No Hx Family Genitourinary Disorders: No Hx Family Endocrine Disorder: No Hx Family Musculoskeletal Disorders: No Hx Family Neuromuscular Disorders: No Hx Family Neurologic Disorders: No Hx Family HEENT Disorders: No Hx Family Autoimmune Disorders: No Hx Family Reproductive Disorders: No Hx Family Psychosocial Disorders: No Hx Family Medical Disorders: No Mother Name: 2 sister Jasmina/Queenie Family Member Ethnicity: Non- Living Status: Hx Family Cardiac Disorders: Yes (Aneurysm, HTN) Hx Family Respiratory Disorders: Yes (COPD) Hx Family Cancer: No Hx Family GI Disorders: No Hx Family Genitourinary Disorders: No Hx Family Endocrine Disorder: No Hx Family Musculoskeletal Disorders: No Hx Family Neuromuscular Disorders: No Hx Family Neurologic Disorders: No Hx Family HEENT Disorders: No Hx Family Reproductive Disorders: No Hx Family Psychosocial Disorders: No Father Adopted: [place]: Alexander Tafoya Family Member Ethnicity: Non- Living Status: Hx Family Cardiac Disorders: Yes (CHF, CAD, [place]) Hx Family Respiratory Disorders: Yes (mother copd) Hx Family Cancer: No Hx Family GI Disorders: No Hx Family Genitourinary Disorders: No Hx Family Endocrine Disorder: No Hx Family Musculoskeletal Disorders: Yes Hx Family Neuromuscular Disorders: No Hx Family Neurologic Disorders: No Hx Family HEENT Disorders: No Hx Family Autoimmune Disorders: No Hx Family Reproductive Disorders: No Hx Family Psychosocial Disorders: No Review of Systems: GI: as per [facility]: denies fever, has some chills EYES: denies yellow discoloration ENT: pain with swallowing and difficulty swallowing CARDIO: denies chest pain, palpitations RESP: Shortness of breath with exertion and at rest : denies change in color of urine NEURO: weakness HEME: Denies any bruising MS: chronic back and joint pain. DERM: denies rash or itching PSYCH: Denies history of anxiety or depression - Constitutional Vitals: Temp Pulse Resp BP Pulse Ox 98.3 F 101 18 111/74 91 06/05/17 15:35 06/05/17 15:35 06/05/17 15:40 06/05/17 15:35 06/05/17 15:40 Exam: CONSTITUTIONAL:~alert, no acute distress.~HEAD:~normocephalic.~EYES:~no jaundice.~NECK:~no obvious swelling.~HEART:~regular rate and rhythm, no murmurs. ~LUNGS:~bilateral poor air entry, scattered rhochi bilaterally.~ABDOMEN:~non distended, soft, non tender, no masses palpable, no organomegaly.~RECTAL EXAM:~ Deferred.~EXTREMITIES:~no clubbing, cyanosis or edema.~SKIN:~no stigmata of chronic liver disease.~NEUROLOGIC:~no obvious focal defect.~~~~ Results - Labs CBC & Chem 7: 06/05/17 02:50 06/05/17 02:50 Labs: Last Result Calcium 7.9 mg/dL (8.6-10.3) L 06/05/17 02:50 Troponin I < 0.03 ng/mL (< 0.04) 05/25/17 19:06 Entire Visit Hgb 10.3 g/dL (11.5-15.4) L 06/05/17 02:50 Hct 31.8 % (35.3-44.9) L 06/05/17 02:50 PT 10.0 Seconds (9.4-12.1) 05/25/17 19:06 Total Bilirubin 0.3 mg/dL (0.3-1.0) 05/25/17 19:06 AST 15 Units/L (13-39) 05/25/17 19:06 ALT 25 Units/L (7-52) 05/25/17 19:06 - ABG ABG results: PT/INR, D-dimer PT 10.0 Seconds (9.4-12.1) 05/25/17 19:06 - Impressions Impressions Barium Swallow X-Ray 06/05/17 08:00 IMPRESSION: Narrowing of a relatively long segment of the mid esophagus and delayed passage of a 1/2 inch barium tablet. Findings are suspicious for stricture, with esophageal mass considered less likely due to length of this segment. Consider correlation with endoscopy. D/ / Afshin Ruiz MD / Afshin Ruiz MD Interpreting Provider: Afshin Ruiz MD Consult Discharge Plan - Plan Instructions: Lisinopril (By mouth), Sucralfate (By mouth), Buspirone (By mouth ), Clonazepam (By mouth), Promethazine (By mouth), Albuterol (By breathing), Nystatin (By mouth), Omeprazole (By mouth), Amoxicillin/Clavulanate Potassium ( By mouth), Ipratropium/Albuterol (By breathing), Polyethylene Glycol 3350 (By mouth), Lidocaine Patch (On the skin), Duloxetine (By mouth), Lung Cancer (DC), Low Fat Diet (DC), Soft Diet (DC), Chronic Obstructive Pulmonary Disease (DC), Sepsis (DC), Chronic Dysphagia (DC), Chronic Hypertension (DC), Pneumonia (DC) Additional Instructions: Follow up with PCP next week. Follow up with oncology as scheduled. Return to the ER as needed for any other problems or concerns. Take your medications as directed. Contact information given for [facility] oncology services as patient requesting second opinion Referrals: Ron Ward MD [Primary Care Provider] - 06/20/17 2:00 pm Prescriptions: Ipratropium/Albuterol Neb [Duoneb] 3 ml IH [id number] #160 inhsol Promethazine [Phenergan] 12.5 mg PO Q6HR PRN #30 tablet PRN Reason: Nausea And Vomiting Amoxicillin/Clavulanate [AUGMENTIN Susp] 875 mg PO Q12HR #20 udc Albuterol Neb [Proventil Neb] 2.5 mg IH Q2H PRN #120 inhsol PRN Reason: Shortness Of Breath/Wheezing Buspirone HCl [Buspar] 15 mg PO BID #60 tablet clonazePAM [Klonopin] 0.5 mg PO BID 30 Days #60 tablet DULoxetine [Cymbalta] 30 mg PO HS #30 capsule. Lidocaine Patch [Lidoderm 5% patch] 1 each TP DAILY #30 adh..patch Lidocaine Viscous Oral Soln 15 ml MM BID 10 Days #240 solution Lisinopril [Zestril] 2.5 mg PO DAILY #30 tablet Nystatin [Nystatin Suspension] 100,000 units PO QID #120 ml Omeprazole [PriLOSEC] 20 mg PO DAILY@0630 #30 capsule. Polyethylene Glycol 3350 [MiraLAX] 17 gm PO DAILY PRN #30 powd.pack PRN Reason: Constipation Potassium Chloride Elixir [Potassium Chloride] 40 meq PO DAILY 10 Days #150 udc predniSONE [PredniSONE] 10 mg PO DAILY #120 tablet Promethazine [Phenergan] 12.5 mg PO ACHS 20 Days #40 tablet Sucralfate [Carafate] 1 gm PO QIDAC #40 udc Sucralfate [Carafate] 1 gm PO ACHS #240 oral.susp <Brandt Ingram - Last Filed: 06/12/17 05:47> Date of Encounter: 06/05/17 - Time Spent With Patient Total time spent is greater than 50% in coordination of care (as documented) at patient's floor/unit and/or counseling patient: GI History of Present Illness - Data of Consult Requesting Physician: Heaven Perkins CNP - Consult Narrative History of present illness: Ms. Keenan is a 61 year old female - Constitutional Vitals: Temp Pulse Resp BP Pulse Ox 98.3 F 113 16 137/83 97 06/08/17 07:32 06/08/17 07:32 06/08/17 11:46 06/08/17 07:32 06/08/17 11:46 Results - Labs CBC & Chem 7: 06/07/17 06:29 06/07/17 06:29 Labs: Last Result Calcium 8.5 mg/dL (8.6-10.3) L 06/07/17 06:29 Troponin I < 0.03 ng/mL (< 0.04) 05/25/17 19:06 Entire Visit Hgb 9.6 g/dL (11.5-15.4) L 06/07/17 06:29 Hct 30.0 % (35.3-44.9) L 06/07/17 06:29 PT 10.0 Seconds (9.4-12.1) 05/25/17 19:06 Total Bilirubin 0.3 mg/dL (0.3-1.0) 05/25/17 19:06 AST 15 Units/L (13-39) 05/25/17 19:06 ALT 25 Units/L (7-52) 05/25/17 19:06 - ABG ABG results: PT/INR, D-dimer PT 10.0 Seconds (9.4-12.1) 05/25/17 19:06 - Attending Attestation Agree with plan. Proceed with EGD today. Suspect radiation esophagitis. I have personally performed a face to face evaluation on this patient. I have reviewed and agree with the care plan. History and Exam by me shows:
[2017-06-05] MEDS: *HR* HYDROcodone/Acet 5/325 mg TABLET PO PRN (19:43)
[2017-06-05] MEDS: traZODone 50 MG TABLET PO SCH (20:44)
[2017-06-05] MEDS: Melatonin 3 MG TABLET PO SCH (20:44)
[2017-06-05] MEDS: *HR* LORazepam 0.5 MG TABLET PO PRN (20:44)
[2017-06-06] MEDS: Ipratropium/Albuterol Neb 3 ML IH SCH ×7 (00:30→23:41)
[2017-06-06] MEDS: Ampicillin/Sulbactam 3,000 MG in 0.9 % Sodium Chloride Mini Bag 100 ML IVPB SCH ×2 (06:11→10:31)
--- NOTE | 2017-06-06 06:51 | Pulmonology Progress Note ---
Date of Encounter: 06/06/17 Time of Encounter: 06:51 Assessment and Plan (1) Postobstructive pneumonia Current Visit: No Status: Acute In conclusion Ms Keenan is a very pleasant 61-year-old woman with advanced lung cancer and end-stage COPD. She has had multiple admissions to the hospital for respiratory failure including near weekly admissions over the last month. She has a large right hilar tumor that obstructing large portion of the right lower lobe with recurrent episodes of postobstructive pneumonia. Current course complicated by aspiration related to radiation esophagitis/gastritis. Furthermore given the severity of underlying COPD even minor increases in work of breathing, severe dyspnea complicated by anxiety leading to recurrent hospitalizations. Recs: Start anxiety regimen as outlined in yesterday's note to help medicate effects of perception of dyspnea Continue Augmentin 2 weeks Continue steroids as outlined with plan for 10 mg taper every week Continue bronchodilators Nutrition/speech and swallow recommendations for diet given findings of endoscopy Management of esophagitis per the gastroenterology service Continue evaluation by oncology and radiation oncology as scheduled Agree with palliative care involvement in this case overall prognosis is poor in the short-term that had several jaime conversation with the patient regarding this Please call with any questions (2) Acute and chronic respiratory failure Current Visit: No Status: Chronic Qualifiers: Respiratory failure complication: hypoxia Qualified Code(s): J96.21 - Acute and chronic respiratory failure with hypoxia (3) Small cell 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 Current Visit: No Status: Chronic (4) COPD exacerbation Current Visit: No Status: Acute (5) Goals of care, counseling/discussion Current Visit: No Status: Acute (6) Metastatic lung cancer (metastasis from lung to other site) Current Visit: Yes Status: Acute Qualifiers: Laterality: unspecified laterality Qualified Code(s): C34.90 - Malignant neoplasm of unspecified part of unspecified bronchus or lung Subjective Principal diagnosis: Pneumonia Interval history: Underwent EGD yesterday which is notable for radiation inflammation/ esophagitis. She says breathings about the same no real change. Objective PUL Vital signs: Last Vital Signs Temp 98.1 F 06/06/17 06:33 Pulse 110 06/06/17 06:33 Resp 16 06/06/17 06:33 BP 119/70 06/06/17 06:33 Pulse Ox 92 06/06/17 06:33 General appearance: no acute distress Auscultation: bilateral: rhonchi Cardiovascular: regular rate and rhythm Gastrointestinal: normoactive bowel sounds normal mental status, non-focal exam Results - Laboratory Findings CBC and BMP: 06/05/17 02:50 06/05/17 02:50 PT/INR, D-dimer PT 10.0 Seconds (9.4-12.1) 05/25/17 19:06 Abnormal lab findings: Abnormal lab results RBC 3.45 M/mcL (3.82-4.97) L 06/05/17 02:50 Hgb 10.3 g/dL (11.5-15.4) L 06/05/17 02:50 Hct 31.8 % (35.3-44.9) L 06/05/17 02:50 RDW 14.8 % (11.5-14.5) H 06/05/17 02:50 MPV 9.2 fL (9.4-12.4) L 06/05/17 02:50 Lymphocytes # 0.3 K/mcL (0.6-4.6) L 06/03/17 04:21 Nucleated RBCs/100 WBC 0.2 /100 WBC (0) H 05/29/17 04:07 Toxic Granulation Present (Not Present) A 05/30/17 06:32 Clumped Platelets Few (Not Present) A 05/29/17 04:07 VBG pH 7.53 pH Units (7.32-7.42) H 05/25/17 19:21 VBG pCO2 38 mmHg (41-51) L 05/25/17 19:21 VBG pO2 188 mmHg (25-50) H 05/25/17 19:21 VBG HCO3 32 mEq/L (21-27) H 05/25/17 19:21 Potassium 3.3 mEq/L (3.5-5.1) L 06/05/17 02:50 Carbon Dioxide 35 mEq/L (23-29) H 06/05/17 02:50 Creatinine 0.30 mg/dL (0.60-1.20) L 06/05/17 02:50 BUN/Creatinine Ratio 27 (6-26) H 06/05/17 02:50 Calcium 7.9 mg/dL (8.6-10.3) L 06/05/17 02:50 Serum Total Protein 5.3 g/dL (6.4-8.9) L 05/25/17 19:06 Albumin 3.4 g/dL (3.5-5.7) L 05/25/17 19:06 Globulin 1.9 g/dL (2.4-3.5) L 05/25/17 19:06 - Microbiology Findings Microbiology Findings: Microbiology, Last 48 Hours 06/03/17 18:35 Sputum Culture - Final Sputum Corynebacterium species - Clinical Findings Intake & Output: Intake & Output 06/05/17 06/05/17 06/06/17 15:59 23:59 07:59 Intake Total 100 / 100 850 / 850 200 / 200 Output Total 400 / 400 Balance 100 / 100 450 / 450 200 / 200 Weight 46.72 kg - VTE Documentation of Mechanical Device: Intermittent pneumatic compression device Consult Discharge Plan - Plan Additional Instructions: Follow up with PCP as scheduled. Follow up with oncology as scheduled. Return to the ER as needed for any other problems or concerns. Take your medications as directed. Your new prescriptions are at [facility]. Return to your normal diet and activities as tolerated. Referrals: Ron Ward MD [Primary Care Provider] - 06/07/17 3:00 pm Prescriptions: Promethazine [Phenergan] 12.5 mg PO Q6HR PRN #30 tablet PRN Reason: Nausea And Vomiting Ciprofloxacin [Cipro] 500 mg PO BID #20 tablet Lidocaine Patch [Lidoderm 5% patch] 1 each TP DAILY #30 adh..patch Lisinopril [Zestril] 2.5 mg PO DAILY #30 tablet Omeprazole [PriLOSEC] 20 mg PO DAILY@0630 #30 capsule. predniSONE [PredniSONE] See Taper PO DAILY #126 tablet predniSONE [PredniSONE] 10 mg PO DAILY #80 tablet Sucralfate [Carafate] 1 gm PO QIDAC #40 [facility] [place]
[2017-06-06] MEDS: Ondansetron 4 MG/2 ML VIAL IVP PRN (07:36)
[2017-06-06] MEDS: Cholecalciferol (D-3) 1,000 UNIT TABLET PO SCH (07:37)
[2017-06-06] MEDS: Sennosides/Docusate Sodium TABLET PO SCH ×2 (07:37→21:37)
[2017-06-06] MEDS: predniSONE 20 MG TABLET PO SCH (07:37)
[2017-06-06] MEDS: Ascorbic Acid 500 MG TABLET PO SCH (07:37)
[2017-06-06] MEDS: Budesonide/Formoterol 160/4.5 MDI IH SCH ×2 (07:43→19:34)
[2017-06-06] MEDS: Tiotropium 18 MCG inhalation IH SCH (07:44)
[2017-06-06] MEDS: hydrALAZINE 25 MG TABLET PO SCH ×3 (07:44→23:28)
[2017-06-06] MEDS: 0.9 % Sodium Chloride 1,000 ML IVC SCH (07:45)
[2017-06-06] MEDS: clonazePAM 0.5 MG TABLET PO SCH ×2 (09:34→21:36)
[2017-06-06] MEDS: Potassium Chloride Elixir 20 MEQ/15 ML UDC PO SCH (09:34)
[2017-06-06] MEDS: *HR* Promethazine 25 MG/ML VIAL IVP PRN (10:32)
--- NOTE | 2017-06-06 13:54 | Internal Med Progress Note ---
Date of Encounter: 06/06/17 Time of Encounter: 13:52 - Assessment and plan (1) HCAP (healthcare-associated pneumonia) Current Visit: Yes Status: Acute Assessment and plan: Bacterial. Pulmonology following Blood cultures negative 2. Patient is afebrile, normotensive, no signs of sirs or sepsis. Patient in mild respiratory distress which is her normal baseline. Oxygen as needed to maintain sats greater than 92% Continue nebulizer treatments, Symbicort, Mucinex, steroids have been transitioned to by mouth prednisone 40 mg daily and will decrease by 10 mg every week Have ordered anti-anxiety regime as outlined by pulmonary. Discussed use of opioid with oncology. We will transition Unasyn to Augmentin and treat for 14 days. Likely chronic aspiration S/P MBS EGD completed 06/05/17 which revealed severe radiation esophagitis. Carafate suspension and viscous lidocaine were initiated. (2) HTN (hypertension) Current Visit: Yes Status: Chronic Assessment and plan: Chronic with some hypotensive, Lisinopril decreased to 2.5mg po daily. Stable Qualifiers: Hypertension type: essential hypertension Qualified Code(s): I10 - Essential (primary) hypertension (3) Chronic respiratory failure with hypoxia Current Visit: Yes Status: Chronic Assessment and plan: Chronic. Titrate O2 to maintain sats greater than 92%. Patient has home O2, will continue oxygen on discharge. (4) Small cell lung cancer, right lower lobe Current Visit: Yes Status: Chronic Assessment and plan: Patient has completed course of radiation. Patient follows with [facility]. Follow up outpatient. Patient has also been evaluated by palliative care. Unfortunately there are not many options as there is no respiratory home care in the area. She is eligible for home health care visits, will be discharged with [facility] when stable Pulmonology has discussed respiratory status with pt, they have explained her condition is clinically deteriorating secondary to malignancy. They discussed the option of repeating the bronchoscopy and another balloon dilatation versus attempting stents, however patient has 1 more radiation to do. Patient will discuss 3 options and pulmonology will follow-up with them as to their decision. (5) COPD exacerbation Current Visit: Yes Status: Acute Assessment and plan: Plan as above. (6) Dysphagia Current Visit: Yes Status: Acute Assessment and plan: Patient had a modified barium swallow completed which showed stricture versus mass pushing on esophagus. GI was consultedt and she underwent an EGD. EGD showed radiation esophagitis. She is on a modified soft diet at this time. Qualifiers: Dysphagia type: unspecified Qualified Code(s): R13.10 - Dysphagia, unspecified (7) Esophagitis, acute Current Visit: Yes Status: Acute Assessment and plan: add nystatin (8) Nausea & vomiting Current Visit: Yes Status: Acute Assessment and plan: continue zofran and phenergan Qualifiers: Vomiting type: unspecified Vomiting Intractability: unspecified Qualified Code(s): R11.2 - Nausea with vomiting, unspecified - Time Spent With Patient Total time spent is greater than 50% in coordination of care (as documented) at patient's floor/unit and/or counseling patient: - Subjective Interval history: Patient is sitting up in bed on a breathing treatment. She denies any complaints of fever, chills, or chest pain but remains with shortness of breath. She is also complaining of nausea and vomiting with poor response to Zofran. She is reluctant to take oral medication secondary to vomiting. Reviewed findings of the EGD and discussed treatment modalities to control the nausea including Phenergan before taking oral meds or food - Constitutional Vitals: Temp Pulse Resp BP Pulse Ox 98.6 F 111 20 127/75 95 06/06/17 10:19 06/06/17 10:19 06/06/17 11:17 06/06/17 10:19 06/06/17 11:17 General appearance: Present: cachectic, cooperative, disheveled, mild distress, A&O X 3, pleasant, underweight, answers questions appropriately - Head Head exam: Present: atraumatic, normocephalic - Eye Eye exam: Present: PERRL, conjuntiva pink, sclera anicteric Pupils: Present: PERRL - Neck Neck exam general surgery: Present: supple, trachea midline. Absent: lymphadenopathy - Respiratory Respiratory exam: Present: decreased breath sounds, prolonged expiratory phase, rhonchi. Absent: accessory muscle use, rales, wheezes - Cardiovascular Cardiovascular exam: Present: RRR, +S1, +S2. Absent: diastolic murmur, gallop, rubs, systolic murmur - GI/Abdominal GI/Abdominal exam: Present: normal bowel sounds, soft, no peritoneal signs. Absent: distended, tenderness - Extremities Exam Extremities exam: Present: warm, radial pulses palpable and symmetrical. Absent : calf tenderness, cyanotic, pedal edema - Neurological Exam Neurological exam: Present: alert, CN II-XII intact, oriented X3, no focal deficits. Absent: pronater drift, facial droop, speech deficit - Skin Skin exam: Present: dry, warm Internal Medicine: Result - Labs CBC & Chem 7: 06/05/17 02:50 06/05/17 02:50 - ABG Interpretation ABG results: PT/INR, D-dimer PT 10.0 Seconds (9.4-12.1) 05/25/17 19:06 - VTE Documentation of Mechanical Device: Intermittent pneumatic compression device Consult Discharge Plan - Plan Additional Instructions: Follow up with PCP as scheduled. Follow up with oncology as scheduled. Return to the ER as needed for any other problems or concerns. Take your medications as directed. Your new prescriptions are at [facility]. Return to your normal diet and activities as tolerated. Referrals: Ron Ward MD [Primary Care Provider] - 06/07/17 3:00 pm Prescriptions: Promethazine [Phenergan] 12.5 mg PO Q6HR PRN #30 tablet PRN Reason: Nausea And Vomiting Ciprofloxacin [Cipro] 500 mg PO BID #20 tablet Lidocaine Patch [Lidoderm 5% patch] 1 each TP DAILY #30 adh..patch Lisinopril [Zestril] 2.5 mg PO DAILY #30 tablet Omeprazole [PriLOSEC] 20 mg PO DAILY@0630 #30 capsule. predniSONE [PredniSONE] See Taper PO DAILY #126 tablet predniSONE [PredniSONE] 10 mg PO DAILY #80 tablet Sucralfate [Carafate] 1 gm PO QIDAC #40 udc
--- NOTE | 2017-06-06 15:08 | Palliative Progress Note ---
Date of Encounter: 06/06/17 Time of Encounter: 15:00 - Assessment and plan (1) Nausea Current Visit: Yes Status: Acute Assessment and plan: Still with intermittent nausea - antiemetics are helpful, but has difficulty at times getting administered in timely manner. She feels Promethazine is more helpful than Ondansetron. Discussed management and will schedule Promethazine before meals and at bedtime, continue Ondansetron PRN. Monitor (2) Anxiety Current Visit: No Status: Chronic Assessment and plan: Has been started on Clonazepam bid and has Lorazepam PRN. Monitor (3) Constipation Current Visit: No Status: Acute Assessment and plan: Continue Senokot BID and Miralax PRN. Monitor Qualifiers: Constipation type: unspecified constipation type Qualified Code(s): K59.00 - Constipation, unspecified (4) Cancer associated pain Current Visit: Yes Status: Acute Assessment and plan: Current pain regiment is working adequately. Monitor (5) Goals of care, counseling/discussion Current Visit: No Status: Acute Assessment and plan: D/W [facility] oncology. Dr. Roberto plans on meeting with pt in am re: further treatment options. Patient's Ki at bedside and notified him that oncology plans on coming in am to discuss clinical status and future options. D/W Kelly Gonzalez NP. Will f/u in am. (6) COPD (chronic obstructive pulmonary disease) Current Visit: No Status: Chronic Qualifiers: COPD type: unspecified COPD Qualified Code(s): J44.9 - Chronic obstructive pulmonary disease, unspecified (7) Healthcare-associated pneumonia Current Visit: No Status: Acute (8) Metastatic lung cancer (metastasis from lung to other site) Current Visit: Yes Status: Acute Qualifiers: Laterality: unspecified laterality Qualified Code(s): C34.90 - Malignant neoplasm of unspecified part of unspecified bronchus or lung - Time Spent With Patient Total time spent is greater than 50% in coordination of care (as documented) at patient's floor/unit and/or counseling patient: 25 - 35 minutes - Subjective Interval history: Patient awake and alert, Ki at bedside. She had nausea and vomiting this am, but was able to eat lunch and feels better this afternoon. EGD with esophageal ulcers. Currently treated with Omeprazole, Carafate, Vicous Lidocaine, and Nystatin was added today. Pain well controlled. Still short of breath with any exertion. - Constitutional Vitals: Abnormal lab results RBC 3.45 M/mcL (3.82-4.97) L 06/05/17 02:50 Hgb 10.3 g/dL (11.5-15.4) L 06/05/17 02:50 Hct 31.8 % (35.3-44.9) L 06/05/17 02:50 RDW 14.8 % (11.5-14.5) H 06/05/17 02:50 MPV 9.2 fL (9.4-12.4) L 06/05/17 02:50 Lymphocytes # 0.3 K/mcL (0.6-4.6) L 06/03/17 04:21 Nucleated RBCs/100 WBC 0.2 /100 WBC (0) H 05/29/17 04:07 Toxic Granulation Present (Not Present) A 05/30/17 06:32 Clumped Platelets Few (Not Present) A 05/29/17 04:07 VBG pH 7.53 pH Units (7.32-7.42) H 05/25/17 19:21 VBG pCO2 38 mmHg (41-51) L 05/25/17 19:21 VBG pO2 188 mmHg (25-50) H 05/25/17 19:21 VBG HCO3 32 mEq/L (21-27) H 05/25/17 19:21 Potassium 3.3 mEq/L (3.5-5.1) L 06/05/17 02:50 Carbon Dioxide 35 mEq/L (23-29) H 06/05/17 02:50 Creatinine 0.30 mg/dL (0.60-1.20) L 06/05/17 02:50 BUN/Creatinine Ratio 27 (6-26) H 06/05/17 02:50 Calcium 7.9 mg/dL (8.6-10.3) L 06/05/17 02:50 Serum Total Protein 5.3 g/dL (6.4-8.9) L 05/25/17 19:06 Albumin 3.4 g/dL (3.5-5.7) L 05/25/17 19:06 Globulin 1.9 g/dL (2.4-3.5) L 05/25/17 19:06 General appearance: Present: mild distress - Respiratory Respiratory exam: Present: decreased breath sounds, wheezes - Cardiovascular Cardiovascular exam: Present: +S1, +S2 - GI/Abdominal GI/Abdominal exam: Present: normal bowel sounds, soft - Extremities Exam Extremities exam: Present: normal capillary refill, normal inspection - Neurological Exam Neurological exam: Present: alert, oriented X3, strengths equal and symetr throughout - Psychiatric Psychiatric exam: Present: anxious - Skin Skin exam: Present: dry, warm Palliative Quality Palliative Quality: Screen for Code Status: Yes, Screen for Goals of Care: Yes, Screen for Pain: Yes, If Pain Regimen Started, Initiate Bowel Regimen: Yes, Screen for Nausea/Vomitting: Yes - Labs CBC & Chem 7: 06/05/17 02:50 06/05/17 02:50 - ABG Interpretation ABG results: PT/INR, D-dimer PT 10.0 Seconds (9.4-12.1) 05/25/17 19:06 Consult Discharge Plan - Plan Additional Instructions: Follow up with PCP as scheduled. Follow up with oncology as scheduled. Return to the ER as needed for any other problems or concerns. Take your medications as directed. Your new prescriptions are at [facility]. Return to your normal diet and activities as tolerated. Referrals: Ron Ward MD [Primary Care Provider] - 06/07/17 3:00 pm Prescriptions: Promethazine [Phenergan] 12.5 mg PO Q6HR PRN #30 tablet PRN Reason: Nausea And Vomiting Ciprofloxacin [Cipro] 500 mg PO BID #20 tablet Lidocaine Patch [Lidoderm 5% patch] 1 each TP DAILY #30 adh..patch Lisinopril [Zestril] 2.5 mg PO DAILY #30 tablet Omeprazole [PriLOSEC] 20 mg PO DAILY@0630 #30 capsule. predniSONE [PredniSONE] See Taper PO DAILY #126 tablet predniSONE [PredniSONE] 10 mg PO DAILY #80 tablet Sucralfate [Carafate] 1 gm PO QIDAC #40 udc
[2017-06-06] MEDS: Lidocaine Viscous Oral Soln 15 ML SOLUTION MM SCH ×2 (15:12→21:37)
[2017-06-06] MEDS: Nystatin SUSP 5 ML UD.LIQ PO SCH ×2 (17:30→21:37)
[2017-06-06] MEDS: Amoxicillin/Clavulanate 400 MG/5 ML UDC PO SCH (17:30)
[2017-06-06] MEDS: Melatonin 3 MG TABLET PO SCH (21:37)
[2017-06-06] MEDS: traZODone 50 MG TABLET PO SCH (21:37)
[2017-06-07] MEDS: Ipratropium/Albuterol Neb 3 ML IH SCH ×6 (03:36→23:59)
[2017-06-07] MEDS: Amoxicillin/Clavulanate 400 MG/5 ML UDC PO SCH ×2 (05:54→17:07)
[2017-06-07 07:07] LABS: Hemoglobin 9.6 g/dL (11.5-15.4); Mean Corpuscular Hemoglobin 29.6 pg (28.0-33.3); Mean Corpuscular Volume 92.6 fL (83.0-100.0); Mean Platelet Volume 9.2 fL (9.4-12.4); Platelet Count 245 K/mcL (140-400); Red Blood Count 3.24 M/mcL (3.82-4.97); Red Cell Distribution Width 14.7 % (11.5-14.5)
--- NOTE | 2017-06-07 07:08 | Rad Onc Consult Note ---
Radiation Oncology HPI - Oncology history Comments: 61-year-old female with extensive stage small cell and poor performance status status post systemic therapy and thoracic radiotherapy consolidation, now with esophagitis Date: 06/07/17 Primary Care Provider: Ron Ward MD History of present illness: Ms. Keenan is hospitalized today with esophagitis and shortness of breath. She has been hospitalized very frequently recently. She did not tolerate thoracic radiotherapy well. She is asking about brain MRI and further radiotherapy to the brain, as she is not currently a systemic therapy candidate due to her poor performance status. Code Status: Full Code Past Medical History: COPD, osteoporosis Other History: Small cell lung ca. emphazema Surgical History: hysterectomy Hospitalization facilities, dates and reasons: Pt. was hospitalized Dec 14 for 2 broken vertabraes Smoking Status: Current every day smoker Smokeless Tobacco Status: No Alcohol use: none Drug use: none Family History -Oncology: heart disease, hypertension Oncology - Medications Prescriptions: Promethazine [Phenergan] 12.5 mg PO Q6HR PRN #30 tablet PRN Reason: Nausea And Vomiting Ciprofloxacin [Cipro] 500 mg PO BID #20 tablet Lidocaine Patch [Lidoderm 5% patch] 1 each TP DAILY #30 adh..patch Lisinopril [Zestril] 2.5 mg PO DAILY #30 tablet Omeprazole [PriLOSEC] 20 mg PO DAILY@0630 #30 capsule. predniSONE [PredniSONE] See Taper PO DAILY #126 tablet predniSONE [PredniSONE] 10 mg PO DAILY #80 tablet Sucralfate [Carafate] 1 gm PO QIDAC #40 udc DULoxetine [Cymbalta] 30 mg PO HS 02/15/16 [History] Trazodone HCl 200 mg PO HS 02/15/16 [History] Albuterol Sulfate [Albuterol Inhaler] 2 puff IH Q6H PRN 10/14/16 [History] Budesonide/Formoterol 160/4.5 [Symbicort 160/4.5] 2 puff IH BIDR 10/14/16 [ History] Oxygen 2 l NS AD 10/14/16 [History] Tiotropium [Spiriva] 18 mcg IH DAILY 10/14/16 [History] Ascorbate Calcium [Vitamin C] 500 mg PO DAILY 12/14/16 [History] Polyethylene Glycol 3350 [MiraLAX] 17 gm PO DAILY PRN #30 powd.pack 12/22/16 [Rx ] Sennosides/Docusate Sodium [Senna-Docusate Sodium Tablet] 2 each PO BID PRN #60 tablet 12/22/16 [Rx] Calcium Carbonate/Vitamin D3 [Calcium 500 + Vit D Caplet] 2 each PO DAILY #60 tablet 12/26/16 [Rx] Cholecalciferol (D-3) [Vitamin D] 5,000 unit PO DAILY 02/02/17 [History] Melatonin [Melatin] 3 mg PO HS 02/02/17 [History] Albuterol Neb [Proventil Neb] 2.5 mg IH Q6H PRN 7 Days #30 vial 05/04/17 [Rx] Ipratropium/Albuterol Neb [Duoneb] 3 ml IH Q4HR 30 Days vial.neb 05/15/17 [Rx] Carvedilol 12.5 mg PO BID #60 tab 05/23/17 [Rx] GuaiFENesin ER [Mucinex] 600 mg PO BID #60 tbbp.12hr 05/23/17 [Rx] LORazepam [Ativan] 0.5 mg PO BID PRN 7 Days #14 tablet 05/23/17 [Rx] OxyCODONE Immed Rel [Roxicodone 10 MG] 10 mg PO TID PRN 7 Days #21 tablet [Rx] hydrALAZINE [HydrALAZINE] 25 mg PO Q8HR #90 tablet 05/23/17 [Rx] Ciprofloxacin [Cipro] 500 mg PO BID #20 tablet 06/03/17 [Rx] Lidocaine Patch [Lidoderm 5% patch] 1 each TP DAILY #30 adh..patch 06/03/17 [Rx] Lisinopril [Zestril] 2.5 mg PO DAILY #30 tablet 06/03/17 [Rx] Omeprazole [PriLOSEC] 20 mg PO DAILY@0630 #30 jade. 06/03/17 [Rx] Promethazine [Phenergan] 12.5 mg PO Q6HR PRN #30 tablet 06/03/17 [Rx] Sucralfate [Carafate] 1 gm PO QIDAC #40 udc 06/03/17 [Rx] predniSONE [PredniSONE] 10 mg PO DAILY #80 tablet 06/03/17 [Rx] predniSONE [PredniSONE] See Taper PO DAILY #126 tablet 06/03/17 [Rx] 3 Allergy/AdvReac Type Severity Reaction Status Date / Time No Known Allergies Allergy Verified 05/27/17 08:12 Review of Systems Provider Comments: A 12 point review of systems was performed. Pertinent positives and negatives are listed below and in the history of present illness. All other systems negative. General/Constitutional: Fatigue Cardio/Pulmonary: Cough, Dyspnea, Dyspnea at Night Physical Exam - Vitals Vital Signs: Last Vital Signs Temp 98.2 F 06/07/17 04:02 Pulse 104 06/07/17 04:02 Resp 22 06/07/17 04:02 BP 123/70 06/07/17 04:02 Pulse Ox 91 06/07/17 04:02 Weight: 45.7 kg ECO - Consciousness/Orientation Level Of Consciousness: Awake, Alert, Appropriate, Follows Commands Patient Orientation: Person, Place, Time, Name, Age, Date of , Day of Month , Day of Week, Month, Year, Time of Day Physical Exam: General: Alert and oriented, thin, in hospital bed, cachectic. Mental Status: Affect appropriate for circumstances HEENT: Sclerae anicteric. No mucositis or thrush. No other oral lesions or erythema. Skin: No rashes or petechiae. Lymph nodes: No cervical, supraclavicular, axillary, or inguinal adenopathy. Abdomen: Soft, nontender; no organomegaly or masses palpable. Extremities: No edema. No calf swelling or tenderness. No joint deformity. Neurologic: Alert, cranial nerves II-XII intact; no focal weakness or sensory abnormalities. Oncology- Results - Diagnostic Studies CT scans were reviewed and aided in recommendation for Hospice care. - Assessment Assessment: I have recommended Hospice care for Ms. Keenan. She and her were counseled on the benefits. She is not a candidate for brain radiotherapy or further systemic therapy. - Patient Problem List (1) COPD exacerbation Status: Acute Code(s): J44.1 - Chronic obstructive pulmonary disease with ( acute) exacerbation SNOMED Code(s): 578412992 (2) Metastatic lung cancer (metastasis from lung to other site) Status: Acute Code(s): C34.90 - Malignant neoplasm of unspecified part of unspecified bronchus or lung Qualifiers: Laterality: unspecified laterality Qualified Code(s): C34.90 - Malignant neoplasm of unspecified part of unspecified bronchus or lung SNOMED Code(s): 82253367
[2017-06-07] MEDS: Budesonide/Formoterol 160/4.5 MDI IH SCH ×2 (07:17→21:26)
[2017-06-07 07:22] LABS: BUN/Creatinine Ratio 29 (6-26); Blood Urea Nitrogen 8 mg/dL (8-23); Calcium 8.5 mg/dL (8.6-10.3); Carbon Dioxide 34 mEq/L (23-29); Chloride 101 mEq/L (98-107); Glucose 103 mg/dL (70-105); Osmolality,Calculated 287 (280-300); Potassium 2.9 mEq/L (3.5-5.1); Sodium 139 mEq/L (136-145); eGFR For African Americans > 60 (> 60); eGFR For Non-African Americans > 60 (> 60)
[2017-06-07] MEDS: Tiotropium 18 MCG inhalation IH SCH (08:00)
[2017-06-07] MEDS: 0.9 % Sodium Chloride 1,000 ML IVC SCH (09:34)
[2017-06-07] MEDS: Potassium Chloride Elixir 20 MEQ/15 ML UDC PO SCH ×2 (09:52→20:50)
[2017-06-07] MEDS: clonazePAM 0.5 MG TABLET PO SCH ×2 (09:52→20:53)
[2017-06-07] MEDS: Lidocaine Viscous Oral Soln 15 ML SOLUTION MM SCH ×2 (09:52→20:51)
[2017-06-07] MEDS: hydrALAZINE 25 MG TABLET PO SCH ×2 (09:52→17:07)
[2017-06-07] MEDS: Nystatin SUSP 5 ML UD.LIQ PO SCH ×4 (09:52→20:55)
[2017-06-07] MEDS: Cholecalciferol (D-3) 1,000 UNIT TABLET PO SCH (09:52)
[2017-06-07] MEDS: Sennosides/Docusate Sodium TABLET PO SCH ×2 (09:52→20:51)
[2017-06-07] MEDS: predniSONE 20 MG TABLET PO SCH (09:53)
[2017-06-07] MEDS: Ascorbic Acid 500 MG TABLET PO SCH (09:53)
[2017-06-07] MEDS: Albuterol 2.5 MG/3 ML NEBULIZER IH PRN ×2 (10:18→21:26)
--- NOTE | 2017-06-07 13:27 | Oncology Inp Consult Note ---
Date of Encounter: 06/07/17 Time of Encounter: 13:26 Assessment and Plan (1) Goals of care, counseling/discussion Status: Acute Assessment and plan: Met with patient alongside [facility]iative [facility] CRISIS CLINICIAN to discuss goals of care. This is following Dr. Roberto's meeting with patient yesterday, where hospice was recommended to patient and patients given patients poor performance status. The hospice philosophy was discussed. Patient agreeable that Hospice care would best serve her needs at this time. She understands that while enrolled in Hospice she will no longer receive further cancer treatment but instead supportive treatment of her symptoms. *Update- Following further discussion with Palliative Care team and patient, patient is now requesting consultation with [facility] to discuss any other treatment options available. If no other options recommended, she is agreeable to Hospice, and will plan to have a follow up following her [facility] appointment with Dr. Beltrán to discuss their recommendation or assist further with Hospice set up if needed at that time. Will update Nurse Navigator team and Dr. Beltrán on Saturday. (2) Metastatic lung cancer (metastasis from lung to other site) Status: Acute Assessment and plan: Stage IV, s/p palliative chemotherapy with carboplatin and etoposide and consolidative chest radiotherapy as detailed in HPI Qualifiers: Laterality: unspecified laterality Qualified Code(s): C34.90 - Malignant neoplasm of unspecified part of unspecified bronchus or lung - Data of Consult Patient: known to practice within the last 3 years Consult date: 06/07/17 Requesting Physician: Heaven Perkins CNP Primary Care Provider: Ron Ward MD - Consult Narrative Reason for consult: Small Cell Lung Cancer History of present illness: Ms. Keenan is a 61 year old female with medical history significant for COPD, home O2 dependence, small cell lung cancer with extensive stage liver metastatic disease, on palliative chemotherapy with carboplatin and etoposide. She has had recent multiple hospitalizations since the beginning of her treatment for pneumonia and COPD exacerbation which has complicated her course of treatment. Prior to starting chest radiotherapy, she had a partial response to chemotherapy treatment. She has partially finished consolidative thoracic radiotherapy to prevent lung collapse and potentially open additional areas of lung for her. According to record it looks as though she has completed 8/ radiotherapy treatments, this will need clarified with radiation. She has not had repeat MRI brain yet to date due to multiple hospitalizations to make sure the [id number] abnormalities on the last scan were not early brain metastases. She most recently met with Dr. Roberto, radiation oncologist, yesterday. Overall prognosis was discussed, hospice was recommended as she is not a good candidate for further brain radiotherapy or systemic treatment due to her poor performance status. Past Med Surg Social Fam HX - Past Medical History Medical history: cancer, COPD, hypertension Psychiatric history: anxiety, depression - Past Surgical History Surgical History: hysterectomy - Social History Smoking Status: Current every day smoker Smokeless Tobacco Status: No Alcohol use: none Drug use: none - Family History Sister Adopted: No Family Member Ethnicity: Non- Living Status: Still Living Age at : 58 Hx Family Cardiac Disorders: Yes (HTN) Hx Family Respiratory Disorders: No Hx Family Cancer: Yes (Lymphoma) Hx Family GI Disorders: No Hx Family Genitourinary Disorders: No Hx Family Endocrine Disorder: No Hx Family Musculoskeletal Disorders: No Hx Family Neuromuscular Disorders: No Hx Family Neurologic Disorders: No Hx Family HEENT Disorders: No Hx Family Autoimmune Disorders: No Hx Family Reproductive Disorders: No Hx Family Psychosocial Disorders: No Hx Family Medical Disorders: No Mother Name: 2 sister Jasmina/Queenie Family Member Ethnicity: Non- Living Status: Hx Family Cardiac Disorders: Yes (Aneurysm, HTN) Hx Family Respiratory Disorders: Yes (COPD) Hx Family Cancer: No Hx Family GI Disorders: No Hx Family Genitourinary Disorders: No Hx Family Endocrine Disorder: No Hx Family Musculoskeletal Disorders: No Hx Family Neuromuscular Disorders: No Hx Family Neurologic Disorders: No Hx Family HEENT Disorders: No Hx Family Reproductive Disorders: No Hx Family Psychosocial Disorders: No Father Adopted: Lena: Alexander Tafoya Family Member Ethnicity: Non- Living Status: Hx Family Cardiac Disorders: Yes (CHF, CAD, [place]) Hx Family Respiratory Disorders: Yes (mother copd) Hx Family Cancer: No Hx Family GI Disorders: No Hx Family Genitourinary Disorders: No Hx Family Endocrine Disorder: No Hx Family Musculoskeletal Disorders: Yes Hx Family Neuromuscular Disorders: No Hx Family Neurologic Disorders: No Hx Family HEENT Disorders: No Hx Family Autoimmune Disorders: No Hx Family Reproductive Disorders: No Hx Family Psychosocial Disorders: No Medications and Allergies Trazodone HCl 200 mg PO HS 02/15/16 [History] Albuterol Sulfate [Albuterol Inhaler] 2 puff IH Q6H PRN 10/14/16 [History] Budesonide/Formoterol 160/4.5 [Symbicort 160/4.5] 2 puff IH BIDR 10/14/16 [ History] Oxygen 2 l NS AD 10/14/16 [History] Tiotropium [Spiriva] 18 mcg IH DAILY 10/14/16 [History] Ascorbate Calcium [Vitamin C] 500 mg PO DAILY 12/14/16 [History] Sennosides/Docusate Sodium [Senna-Docusate Sodium Tablet] 2 each PO BID PRN #60 tablet 12/22/16 [Rx] Calcium Carbonate/Vitamin D3 [Calcium 500 + Vit D Caplet] 2 each PO DAILY #60 tablet 12/26/16 [Rx] Cholecalciferol (D-3) [Vitamin D] 5,000 unit PO DAILY 02/02/17 [History] Melatonin [Melatin] 3 mg PO HS 02/02/17 [History] Carvedilol 12.5 mg PO BID #60 tab 05/23/17 [Rx] GuaiFENesin ER [Mucinex] 600 mg PO BID #60 tbbp.12hr 05/23/17 [Rx] LORazepam [Ativan] 0.5 mg PO BID PRN 7 Days #14 tablet 05/23/17 [Rx] OxyCODONE Immed Rel [Roxicodone 10 MG] 10 mg PO TID PRN 7 Days #21 tablet [Rx] hydrALAZINE [HydrALAZINE] 25 mg PO Q8HR #90 tablet 05/23/17 [Rx] Lidocaine Patch [Lidoderm 5% patch] 1 each TP DAILY #30 adh..patch 06/03/17 [Rx] Lisinopril [Zestril] 2.5 mg PO DAILY #30 tablet 06/03/17 [Rx] Omeprazole [PriLOSEC] 20 mg PO DAILY@0630 #30 capsule.dr 06/03/17 [Rx] Promethazine [Phenergan] 12.5 mg PO Q6HR PRN #30 tablet 06/03/17 [Rx] Sucralfate [Carafate] 1 gm PO QIDAC #40 udc 06/03/17 [Rx] Albuterol Neb [Proventil Neb] 2.5 mg IH Q2H PRN #120 inhsol 06/08/17 [Rx] Amoxicillin/Clavulanate [AUGMENTIN Susp] 875 mg PO Q12HR #20 udc 06/08/17 [Rx] Buspirone HCl [Buspar] 15 mg PO BID #60 tablet 06/08/17 [Rx] DULoxetine [Cymbalta] 30 mg PO HS #30 capsule. 06/08/17 [Rx] Ipratropium/Albuterol Neb [Duoneb] 3 ml IH [id number] #160 inhsol 06/08/17 [Rx] Lidocaine Viscous Oral Soln 15 ml MM BID 10 Days #240 solution 06/08/17 [Rx] Nystatin [Nystatin Suspension] 100,000 units PO QID #120 ml 06/08/17 [Rx] Polyethylene Glycol 3350 [MiraLAX] 17 gm PO DAILY PRN #30 powd.pack 06/08/17 [Rx ] Potassium Chloride Elixir [Potassium Chloride] 40 meq PO DAILY 10 Days #150 udc 06/08/17 [Rx] Promethazine [Phenergan] 12.5 mg PO ACHS 20 Days #40 tablet 06/08/17 [Rx] Sucralfate [Carafate] 1 gm PO ACHS #240 oral.susp 06/08/17 [Rx] clonazePAM [Klonopin] 0.5 mg PO BID 30 Days #60 tablet 06/08/17 [Rx] predniSONE [PredniSONE] 10 mg PO DAILY #120 tablet 06/08/17 [Rx] 3 Allergy/AdvReac Type Severity Reaction Status Date / Time No Known Allergies Allergy Verified 05/27/17 08:12 Constitutional: Present: anorexia, chills, fatigue, weakness, weight loss. Absent: fever(s) Eyes: Absent: change in vision Nose, mouth and throat: Present: dysphagia, odynophagia Cardiovascular: Absent: chest pain, irregular heart rhythm Respiratory: Present: cough, dyspnea, wheezing Gastrointestinal: Absent: abdominal pain, change in bowel habits, nausea, vomiting Genitourinary: Absent: dysuria Musculoskeletal: Present: muscle weakness Integumentary: Absent: wounds Neurological: Absent: focal weakness, frequent falls, headache(s) Hematologic/Lymphatic: Present: as per HPI Oncology - Exam - Constitutional Vitals: Temp Pulse Resp BP Pulse Ox 97.8 F 105 14 116/77 95 06/07/17 11:34 04/20/18 11:34 06/07/17 11:34 06/07/17 11:34 06/07/17 11:34 General appearance: cooperative, no acute distress, thin, no febrile Exam: chronically ill appearing, cachectic - Head Head exam: Present: atraumatic - ENT ENT exam: Present: mucous membranes moist - Respiratory Respiratory exam: Present: decreased breath sounds, wheezes. Absent: respiratory distress - Cardiovascular Cardiovascular exam: Present: RRR, +S1, +S2 - GI/Abdominal GI/Abdominal exam: Present: normal bowel sounds, soft. Absent: tenderness - Extremities Exam Extremities exam: Absent: calf tenderness - Neurological Exam Neurological exam: Present: alert, oriented X3, no focal deficits, strengths equal and symetr throughout - Psychiatric Psychiatric exam: Present: normal affect, normal mood - Skin Skin exam: Present: dry, intact, normal color, warm Oncology - Results Labs: Short CBC 06/07/17 Range/Units 06:29 WBC 7.7 (4.3-11.1) K/mcL Hgb 9.6 L (11.5-15.4) g/dL Hct 30.0 L (35.3-44.9) % Plt Count 245 (140-400) K/mcL BMP 06/07/17 06:29 Sodium 139 Potassium 2.9 L Chloride 101 Carbon Dioxide 34 H BUN 8 Creatinine 0.28 L Glucose 103 Calcium 8.5 L Consult Discharge Plan - Plan Instructions: Lisinopril (By mouth), Sucralfate (By mouth), Buspirone (By mouth ), Clonazepam (By mouth), Promethazine (By mouth), Albuterol (By breathing), Nystatin (By mouth), Omeprazole (By mouth), Amoxicillin/Clavulanate Potassium ( By mouth), Ipratropium/Albuterol (By breathing), Polyethylene Glycol 3350 (By mouth), Lidocaine Patch (On the skin), Duloxetine (By mouth), Lung Cancer (DC), Low Fat Diet (DC), Soft Diet (DC), Chronic Obstructive Pulmonary Disease (DC), Sepsis (DC), Chronic Dysphagia (DC), Chronic Hypertension (DC), Pneumonia (DC) Additional Instructions: Follow up with PCP next week. Follow up with oncology as scheduled. Return to the ER as needed for any other problems or concerns. Take your medications as directed. Contact information given for [facility] oncology services as patient requesting second opinion Referrals: Ron Ward MD [Primary Care Provider] - 06/20/17 2:00 pm Prescriptions: Ipratropium/Albuterol Neb [Duoneb] 3 ml IH [id number] #160 inhsol Promethazine [Phenergan] 12.5 mg PO Q6HR PRN #30 tablet PRN Reason: Nausea And Vomiting Amoxicillin/Clavulanate [AUGMENTIN Susp] 875 mg PO Q12HR #20 udc Albuterol Neb [Proventil Neb] 2.5 mg IH Q2H PRN #120 inhsol PRN Reason: Shortness Of Breath/Wheezing Buspirone HCl [Buspar] 15 mg PO BID #60 tablet clonazePAM [Klonopin] 0.5 mg PO BID 30 Days #60 tablet DULoxetine [Cymbalta] 30 mg PO HS #30 capsule. Lidocaine Patch [Lidoderm 5% patch] 1 each TP DAILY #30 adh..patch Lidocaine Viscous Oral Soln 15 ml MM BID 10 Days #240 solution Lisinopril [Zestril] 2.5 mg PO DAILY #30 tablet Nystatin [Nystatin Suspension] 100,000 units PO QID #120 ml Omeprazole [PriLOSEC] 20 mg PO DAILY@0630 #30 capsule. Polyethylene Glycol 3350 [MiraLAX] 17 gm PO DAILY PRN #30 powd.pack PRN Reason: Constipation Potassium Chloride Elixir [Potassium Chloride] 40 meq PO DAILY 10 Days #150 udc predniSONE [PredniSONE] 10 mg PO DAILY #120 tablet Promethazine [Phenergan] 12.5 mg PO ACHS 20 Days #40 tablet Sucralfate [Carafate] 1 gm PO QIDAC #40 udc Sucralfate [Carafate] 1 gm PO ACHS #240 oral.susp
--- NOTE | 2017-06-07 15:22 | Palliative Progress Note ---
Date of Encounter: 06/07/17 Time of Encounter: 15:15 - Assessment and plan (1) Nausea Current Visit: Yes Status: Acute Assessment and plan: Patient's symptoms have improved with initiation of promethazine prior to meals. No vomiting today. Continue and monitor (2) Anxiety Current Visit: No Status: Chronic Assessment and plan: Improved with Clonazepam and Lorazepam PRN. Monitor (3) Constipation Current Visit: No Status: Acute Assessment and plan: Continue with Senokot and Miralax PRN. Qualifiers: Constipation type: unspecified constipation type Qualified Code(s): K59.00 - Constipation, unspecified (4) Cancer associated pain Current Visit: Yes Status: Acute Assessment and plan: Continue [place]/Oxycodone PRN. (5) Goals of care, counseling/discussion Current Visit: No Status: Acute Assessment and plan: Scarlet Constantino CHORAL TEACHER and I met with pt and discussed poor prognosis once again, and limited options for home care. Stressed that healthcare team recommending no life sustaining measures and hospice care, and pt stated that she was "ok" to go home with hospice care, but needed to discuss with when he returns. I went back to room approximately 30 min later, was present. I readdressed the pt situation and option of hospice. Patient and stated that she wants a second opinion at the [facility] just for peace of mind that they have "sought every option" for treatment. If the [facility] does not have anything else to offer, they will be agreeable to hospice referral. D/W Kelly Gonzalez, - call was made to the [facility], pt was informed that she would be responsible for cost of transport. Pt/ to calll [facility] on their own on Saturday and desire to stay with Home Health when discharged. Informed Dr. Leigh of the above - informed pt that they could f/u with oncology after [facility] visit, and hospice referral could be made from there if needed. (6) COPD (chronic obstructive pulmonary disease) Current Visit: No Status: Chronic Qualifiers: COPD type: unspecified COPD Qualified Code(s): J44.9 - Chronic obstructive pulmonary disease, unspecified (7) Healthcare-associated pneumonia Current Visit: No Status: Acute (8) Metastatic lung cancer (metastasis from lung to other site) Current Visit: Yes Status: Acute Qualifiers: Laterality: unspecified laterality Qualified Code(s): C34.90 - Malignant neoplasm of unspecified part of unspecified bronchus or lung - Time Spent With Patient Total time spent is greater than 50% in coordination of care (as documented) at patient's floor/unit and/or counseling patient: 25 - 35 minutes - Subjective Interval history: Patient awake and alert, Ki at bedside. Nausea /vomiting have improved. Pain is well managed. - Constitutional Vitals: Abnormal lab results RBC 3.24 M/mcL (3.82-4.97) L 06/07/17 06:29 Hgb 9.6 g/dL (11.5-15.4) L 06/07/17 06:29 Hct 30.0 % (35.3-44.9) L 06/07/17 06:29 RDW 14.7 % (11.5-14.5) H 06/07/17 06:29 MPV 9.2 fL (9.4-12.4) L 06/07/17 06:29 Lymphocytes # 0.3 K/mcL (0.6-4.6) L 06/03/17 04:21 Nucleated RBCs/100 WBC 0.2 /100 WBC (0) H 05/29/17 04:07 Toxic Granulation Present (Not Present) A 05/30/17 06:32 Clumped Platelets Few (Not Present) A 05/29/17 04:07 VBG pH 7.53 pH Units (7.32-7.42) H 05/25/17 19:21 VBG pCO2 38 mmHg (41-51) L 05/25/17 19:21 VBG pO2 188 mmHg (25-50) H 05/25/17 19:21 VBG HCO3 32 mEq/L (21-27) H 05/25/17 19:21 Potassium 2.9 mEq/L (3.5-5.1) L 06/07/17 06:29 Carbon Dioxide 34 mEq/L (23-29) H 06/07/17 06:29 Creatinine 0.28 mg/dL (0.60-1.20) L 06/07/17 06:29 BUN/Creatinine Ratio 29 (6-26) H 06/07/17 06:29 Calcium 8.5 mg/dL (8.6-10.3) L 06/07/17 06:29 Serum Total Protein 5.3 g/dL (6.4-8.9) L 05/25/17 19:06 Albumin 3.4 g/dL (3.5-5.7) L 05/25/17 19:06 Globulin 1.9 g/dL (2.4-3.5) L 05/25/17 19:06 General appearance: Present: no acute distress - Respiratory Respiratory exam: Present: decreased breath sounds, CTAB - Cardiovascular Cardiovascular exam: Present: +S1, +S2 - GI/Abdominal GI/Abdominal exam: Present: normal bowel sounds, soft - Extremities Exam Extremities exam: Present: normal capillary refill, normal inspection - Neurological Exam Neurological exam: Present: alert, oriented X3, strengths equal and symetr throughout - Skin Skin exam: Present: dry, pallor, warm Palliative Quality Palliative Quality: Screen for Code Status: Yes, Screen for Goals of Care: Yes, Screen for Pain: Yes, If Pain Regimen Started, Initiate Bowel Regimen: Yes, Screen for Nausea/Vomitting: Yes - Labs CBC & Chem 7: 06/07/17 06:29 06/07/17 06:29 Labs: Laboratory Results - last 24 hr 06/07/17 06/07/17 06:29 06:29 WBC 7.7 RBC 3.24 L Hgb 9.6 L Hct 30.0 L MCV 92.6 MCH 29.6 MCHC 32.0 RDW 14.7 H Plt Count 245 MPV 9.2 L Sodium 139 Potassium 2.9 L Chloride 101 Carbon Dioxide 34 H BUN 8 Creatinine 0.28 L Est GFR ( Amer) > 60 Est GFR (Non-Af Amer) > 60 BUN/Creatinine Ratio 29 H Glucose 103 Calculated Osmolality 287 Calcium 8.5 L - ABG Interpretation ABG results: PT/INR, D-dimer PT 10.0 Seconds (9.4-12.1) 05/25/17 19:06 Consult Discharge Plan - Plan Additional Instructions: Follow up with PCP as scheduled. Follow up with oncology as scheduled. Return to the ER as needed for any other problems or concerns. Take your medications as directed. Your new prescriptions are at [facility]. Return to your normal diet and activities as tolerated. Referrals: Ron Ward MD [Primary Care Provider] - 06/20/17 2:00 pm Prescriptions: Promethazine [Phenergan] 12.5 mg PO Q6HR PRN #30 tablet PRN Reason: Nausea And Vomiting Ciprofloxacin [Cipro] 500 mg PO BID #20 tablet Lidocaine Patch [Lidoderm 5% patch] 1 each TP DAILY #30 adh..patch Lisinopril [Zestril] 2.5 mg PO DAILY #30 tablet Omeprazole [PriLOSEC] 20 mg PO DAILY@0630 #30 capsule. predniSONE [PredniSONE] See Taper PO DAILY #126 tablet predniSONE [PredniSONE] 10 mg PO DAILY #80 tablet Sucralfate [Carafate] 1 gm PO QIDAC #40 udc
--- NOTE | 2017-06-07 15:38 | Internal Med Progress Note ---
Date of Encounter: 06/07/17 Time of Encounter: 15:35 - Assessment and plan (1) HCAP (healthcare-associated pneumonia) Current Visit: Yes Status: Acute Assessment and plan: Likely aspiration Pulmonology following Blood cultures negative 2. Patient is afebrile, normotensive, no signs of sirs or sepsis. Patient in mild respiratory distress which is her normal baseline. Oxygen as needed to maintain sats greater than 92% Continue nebulizer treatments, Symbicort, Mucinex, steroids have been transitioned to by mouth prednisone 40 mg daily and will decrease by 10 mg every week Continue anti-anxiety regime as outlined by pulmonary. Discussed use of opioid with oncology. Continue Augmentin and treat for 14 days. Likely chronic aspiration S/P MBS EGD completed 06/05/17 which revealed severe radiation esophagitis. Carafate suspension and viscous lidocaine were initiated. (2) HTN (hypertension) Current Visit: Yes Status: Chronic Assessment and plan: Chronic, Lisinopril decreased to 2.5mg po daily. Stable Qualifiers: Hypertension type: essential hypertension Qualified Code(s): I10 - Essential (primary) hypertension (3) Chronic respiratory failure with hypoxia Current Visit: Yes Status: Chronic Assessment and plan: Chronic. 4 liters Titrate O2 to maintain sats greater than 92%. Patient has home O2, will continue oxygen on discharge. (4) Small cell lung cancer, right lower lobe Current Visit: Yes Status: Chronic Assessment and plan: Patient has completed course of radiation. Patient follows with [facility]. Oncologist met with the patient today and told her there was no other treatment options for her at this time. Recommend hospice care Patient has also been evaluated by palliative care. Unfortunately there are not many options as there is no respiratory home care in the area. She is eligible for home health care visits, will be discharged with [facility] when stable Pulmonology has discussed respiratory status with pt, they have explained her condition is clinically deteriorating secondary to malignancy. They discussed the option of repeating the bronchoscopy and another balloon dilatation versus attempting stents, however patient has 1 more radiation to do. Patient will discuss 3 options and pulmonology will follow-up with them as to their decision. (5) COPD exacerbation Current Visit: Yes Status: Acute Assessment and plan: Treating exacerbation as above. (6) Dysphagia Current Visit: Yes Status: Acute Assessment and plan: Patient had a modified barium swallow completed which showed stricture versus mass pushing on esophagus. GI was consultedt and she underwent an EGD. EGD showed radiation esophagitis. She is on a modified soft diet at this time. Continue Carafate, nystatin, and lidocaine Qualifiers: Dysphagia type: unspecified Qualified Code(s): R13.10 - Dysphagia, unspecified (7) Esophagitis, acute Current Visit: Yes Status: Acute Assessment and plan: see above (8) Nausea & vomiting Current Visit: Yes Status: Acute Assessment and plan: Currently controlled, continue zofran and phenergan Qualifiers: Vomiting type: unspecified Vomiting Intractability: unspecified Qualified Code(s): R11.2 - Nausea with vomiting, unspecified - Time Spent With Patient Total time spent is greater than 50% in coordination of care (as documented) at patient's floor/unit and/or counseling patient: - Subjective Interval history: Patient is sitting up in bed on a breathing treatment. She denies any complaints of fever, chills, or chest pain but remains with shortness of breath. She states her nausea and vomiting is controlled today. Oncology had a long discussion with the patient regarding no further treatment options at this time. There are recommended hospice care. I had a long discussion with she and her regarding hospice therapy and quality of life at home with her grandson instead of being here in the hospital. Hospice has been suggested by multiple providers. Palliative team met with the patient and her and they wanted to go to [facility] for a second opinion. A phone call was made to arrange this but she would have to pay for transportation. The family and patient declined the transfer at this time and will decide if they are going to follow-up as an outpatient. Contact information was provided. After some discussion she will go home tomorrow with home health services. - Constitutional Vitals: Temp Pulse Resp BP Pulse Ox 98.3 F 88 16 116/76 94 06/07/17 15:10 06/07/17 15:10 06/07/17 15:10 06/07/17 15:10 06/07/17 15:10 General appearance: Present: cachectic, cooperative, disheveled, mild distress, A&O X 3, pleasant, underweight, answers questions appropriately - Head Head exam: Present: atraumatic, normocephalic - Eye Eye exam: Present: PERRL, conjuntiva pink, sclera anicteric Pupils: Present: PERRL - Neck Neck exam general surgery: Present: supple, trachea midline. Absent: lymphadenopathy - Respiratory Respiratory exam: Present: decreased breath sounds, prolonged expiratory phase, rhonchi, wheezes. Absent: accessory muscle use, rales - Cardiovascular Cardiovascular exam: Present: RRR, +S1, +S2. Absent: diastolic murmur, gallop, rubs, systolic murmur - GI/Abdominal GI/Abdominal exam: Present: normal bowel sounds, soft, no peritoneal signs. Absent: distended, tenderness - Extremities Exam Extremities exam: Present: warm, radial pulses palpable and symmetrical. Absent : calf tenderness, cyanotic, pedal edema - Neurological Exam Neurological exam: Present: alert, CN II-XII intact, oriented X3, no focal deficits. Absent: pronater drift, facial droop, speech deficit - Skin Skin exam: Present: dry, intact, normal color, warm Additional comments: [facility]: Result - Labs CBC & Chem 7: 06/07/17 06:29 06/07/17 06:29 Labs: Short CBC 06/07/17 Range/Units 06:29 WBC 7.7 (4.3-11.1) K/mcL Hgb 9.6 L (11.5-15.4) g/dL Hct 30.0 L (35.3-44.9) % Plt Count 245 (140-400) K/mcL BMP 06/07/17 06:29 Sodium 139 Potassium 2.9 L Chloride 101 Carbon Dioxide 34 H BUN 8 Creatinine 0.28 L Glucose 103 Calcium 8.5 L - ABG Interpretation ABG results: PT/INR, D-dimer PT 10.0 Seconds (9.4-12.1) 05/25/17 19:06 - VTE Documentation of Mechanical Device: Intermittent pneumatic compression device Consult Discharge Plan - Plan Additional Instructions: Follow up with PCP as scheduled. Follow up with oncology as scheduled. Return to the ER as needed for any other problems or concerns. Take your medications as directed. Your new prescriptions are at [facility]. Return to your normal diet and activities as tolerated. Referrals: Ron Ward MD [Primary Care Provider] - 06/20/17 2:00 pm Prescriptions: Promethazine [Phenergan] 12.5 mg PO Q6HR PRN #30 tablet PRN Reason: Nausea And Vomiting Ciprofloxacin [Cipro] 500 mg PO BID #20 tablet Lidocaine Patch [Lidoderm 5% patch] 1 each TP DAILY #30 adh..patch Lisinopril [Zestril] 2.5 mg PO DAILY #30 tablet Omeprazole [PriLOSEC] 20 mg PO DAILY@0630 #30 capsule. predniSONE [PredniSONE] See Taper PO DAILY #126 tablet predniSONE [PredniSONE] 10 mg PO DAILY #80 tablet Sucralfate [Carafate] 1 gm PO QIDAC #40 udc
[2017-06-07] MEDS: Melatonin 3 MG TABLET PO SCH (20:51)
[2017-06-07] MEDS: *HR* LORazepam 0.5 MG TABLET PO PRN (20:52)
[2017-06-07] MEDS: traZODone 50 MG TABLET PO SCH (20:52)
[2017-06-08] MEDS: Ipratropium/Albuterol Neb 3 ML IH SCH ×3 (04:19→11:46)
[2017-06-08] MEDS: hydrALAZINE 25 MG TABLET PO SCH ×2 (06:00→08:03)
[2017-06-08] MEDS: Amoxicillin/Clavulanate 400 MG/5 ML UDC PO SCH (06:02)
[2017-06-08 07:33] VITALS: BP 137/83
[2017-06-08] MEDS: Budesonide/Formoterol 160/4.5 MDI IH SCH (08:04)
[2017-06-08] MEDS: clonazePAM 0.5 MG TABLET PO SCH (09:21)
[2017-06-08] MEDS: Lidocaine Viscous Oral Soln 15 ML SOLUTION MM SCH ×2 (09:22→09:33)
[2017-06-08] MEDS: Nystatin SUSP 5 ML UD.LIQ PO SCH (09:22)
[2017-06-08] MEDS: predniSONE 20 MG TABLET PO SCH (09:22)
[2017-06-08] MEDS: Cholecalciferol (D-3) 1,000 UNIT TABLET PO SCH (09:23)
[2017-06-08] MEDS: Sennosides/Docusate Sodium TABLET PO SCH (09:23)
[2017-06-08] MEDS: Ascorbic Acid 500 MG TABLET PO SCH (09:24)
[2017-06-08] MEDS: Potassium Chloride Elixir 20 MEQ/15 ML UDC PO SCH ×2 (09:28→10:34)
--- NOTE | 2017-06-08 10:03 | Discharge Summary ---
- NOTES TO OUTPATIENT PROVIDER Notes to Outpatient Provider: Follow-up with primary care physician as directed. Will be discharged with [facility] Date of Encounter: 06/08/17 Time of Encounter: 10:01 - Discharge Diagnosis (1) HCAP (healthcare-associated pneumonia) Priority: Primary Status: Acute (2) HTN (hypertension) Priority: Primary Status: Chronic Qualifiers: Hypertension type: essential hypertension Qualified Code(s): I10 - Essential (primary) hypertension (3) Chronic respiratory failure with hypoxia Priority: Primary Status: Chronic (4) Small cell lung cancer, right lower lobe Priority: Primary Status: Chronic (5) COPD exacerbation Priority: Primary Status: Acute (6) Dysphagia Priority: Primary Status: Acute Qualifiers: Dysphagia type: unspecified Qualified Code(s): R13.10 - Dysphagia, unspecified (7) Esophagitis, acute Priority: Primary Status: Acute (8) Nausea & vomiting Priority: Primary Status: Acute Qualifiers: Vomiting type: unspecified Vomiting Intractability: non-intractable Qualified Code(s): R11.2 - Nausea with vomiting, unspecified (9) Tobacco abuse Priority: Primary Status: Chronic Hospital course: Ms. Keenan is a 61 year old female with frequent admissions to this facility. 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 This is complicated by severe underlying COPD and tobacco abuse. She has been in the hospital on a nearly weekly basis over the past month and a monthly basis prior to that. Despite the use of chemotherapy and radiation along with bronchoscopy and belligerent dilatation and debulking of an obstructing right hilar mass she continues to distract the right lower lobe with evidence of chronic postobstructive pneumonitis. She also has diffuse lower lobe bronchiolitis. She had a course of radiation therapy during this hospitalization and developed aspiration problems as well as severe esophagitis. She is now chronically nauseated with periods of vomiting. She is having difficulty with oral medications. Hospice care was mentioned by radiology oncology, pulmonology, and hospitalist service. Palliative team was involved. The patient declines hospice care at this time. They are considering a second opinion at [facility]. She remains a full code at this time. She is being discharged home today with home health, home oxygen and nebulizer after many conversations with the patient regarding the terminal nature of her illness and her rapidly declining course. She is being sent home on anti-anxiety regime which pulmonary feels may help her not to return as quickly. With the poor understanding of this terminal course or poor acceptance by her and her family I expect that she will return to the hospital in a relatively short time. I personally do not believe that she feels she can survive outside of the hospital. I have explained that she wants quality of life with her grandson who is at home so she needs to maximize her time left and spent that with her grandson which could be facilitated by the hospice team which could also help her family members deal with this but they do not desire that path at this time. She will be discharged on 4 L nasal cannula. She is afebrile, respiratory rate is 18-20 at rest that she becomes dyspneic on minimal exertion and becomes tachycardic on exertion. Discharge discussed with: patient, family, nurse Time spent discussing smoking cessation with patient: 3 to 10 minutes - Time Spent with Patient Total time spent providing and/or coordinating discharge services: Less than 30 minutes - Discharge Medications Prescriptions: Ipratropium/Albuterol Neb [Duoneb] 3 ml IH [id number] #160 inhsol Promethazine [Phenergan] 12.5 mg PO Q6HR PRN #30 tablet PRN Reason: Nausea And Vomiting Amoxicillin/Clavulanate [AUGMENTIN Susp] 875 mg PO Q12HR #20 udc Albuterol Neb [Proventil Neb] 2.5 mg IH Q2H PRN #120 inhsol PRN Reason: Shortness Of Breath/Wheezing Buspirone HCl [Buspar] 15 mg PO BID #60 tablet clonazePAM [Klonopin] 0.5 mg PO BID 30 Days #60 tablet DULoxetine [Cymbalta] 30 mg PO HS #30 capsule. Lidocaine Patch [Lidoderm 5% patch] 1 each TP DAILY #30 adh..patch Lidocaine Viscous Oral Soln 15 ml MM BID 10 Days #240 solution Lisinopril [Zestril] 2.5 mg PO DAILY #30 tablet Nystatin [Nystatin Suspension] 100,000 units PO QID #120 ml Omeprazole [PriLOSEC] 20 mg PO DAILY@0630 #30 capsule. Polyethylene Glycol 3350 [MiraLAX] 17 gm PO DAILY PRN #30 powd.pack PRN Reason: Constipation Potassium Chloride Elixir [Potassium Chloride] 40 meq PO DAILY 10 Days #150 udc predniSONE [PredniSONE] 10 mg PO DAILY #120 tablet Promethazine [Phenergan] 12.5 mg PO ACHS 20 Days #40 tablet Sucralfate [Carafate] 1 gm PO QIDAC #40 udc Sucralfate [Carafate] 1 gm PO ACHS #240 oral.susp Home Medications: Trazodone HCl 200 mg PO HS 02/15/16 [History] Albuterol Sulfate [Albuterol Inhaler] 2 puff IH Q6H PRN 10/14/16 [History] Budesonide/Formoterol 160/4.5 [Symbicort 160/4.5] 2 puff IH BIDR 10/14/16 [ History] Oxygen 2 l NS AD 10/14/16 [History] Tiotropium [Spiriva] 18 mcg IH DAILY 10/14/16 [History] Ascorbate Calcium [Vitamin C] 500 mg PO DAILY 12/14/16 [History] Sennosides/Docusate Sodium [Senna-Docusate Sodium Tablet] 2 each PO BID PRN #60 tablet 12/22/16 [Rx] Calcium Carbonate/Vitamin D3 [Calcium 500 + Vit D Caplet] 2 each PO DAILY #60 tablet 12/26/16 [Rx] Cholecalciferol (D-3) [Vitamin D] 5,000 unit PO DAILY 02/02/17 [History] Melatonin [Melatin] 3 mg PO HS 02/02/17 [History] Carvedilol 12.5 mg PO BID #60 tab 05/23/17 [Rx] GuaiFENesin ER [Mucinex] 600 mg PO BID #60 tbbp.12hr 05/23/17 [Rx] LORazepam [Ativan] 0.5 mg PO BID PRN 7 Days #14 tablet 05/23/17 [Rx] OxyCODONE Immed Rel [Roxicodone 10 MG] 10 mg PO TID PRN 7 Days #21 tablet [Rx] hydrALAZINE [HydrALAZINE] 25 mg PO Q8HR #90 tablet 05/23/17 [Rx] Lidocaine Patch [Lidoderm 5% patch] 1 each TP DAILY #30 adh..patch 06/03/17 [Rx] Lisinopril [Zestril] 2.5 mg PO DAILY #30 tablet 06/03/17 [Rx] Omeprazole [PriLOSEC] 20 mg PO DAILY@0630 #30 capsule. 06/03/17 [Rx] Promethazine [Phenergan] 12.5 mg PO Q6HR PRN #30 tablet 06/03/17 [Rx] Sucralfate [Carafate] 1 gm PO QIDAC #40 udc 06/03/17 [Rx] Albuterol Neb [Proventil Neb] 2.5 mg IH Q2H PRN #120 inhsol 06/08/17 [Rx] Amoxicillin/Clavulanate [AUGMENTIN Susp] 875 mg PO Q12HR #20 udc 06/08/17 [Rx] Buspirone HCl [Buspar] 15 mg PO BID #60 tablet 06/08/17 [Rx] DULoxetine [Cymbalta] 30 mg PO HS #30 capsule. 06/08/17 [Rx] Ipratropium/Albuterol Neb [Duoneb] 3 ml IH [id number] #160 inhsol 06/08/17 [Rx] Lidocaine Viscous Oral Soln 15 ml MM BID 10 Days #240 solution 06/08/17 [Rx] Nystatin [Nystatin Suspension] 100,000 units PO QID #120 ml 06/08/17 [Rx] Polyethylene Glycol 3350 [MiraLAX] 17 gm PO DAILY PRN #30 powd.pack 06/08/17 [Rx ] Potassium Chloride Elixir [Potassium Chloride] 40 meq PO DAILY 10 Days #150 udc 06/08/17 [Rx] Promethazine [Phenergan] 12.5 mg PO ACHS 20 Days #40 tablet 06/08/17 [Rx] Sucralfate [Carafate] 1 gm PO ACHS #240 oral.susp 06/08/17 [Rx] clonazePAM [Klonopin] 0.5 mg PO BID 30 Days #60 tablet 06/08/17 [Rx] predniSONE [PredniSONE] 10 mg PO DAILY #120 tablet 06/08/17 [Rx] Allergies/Adverse Reactions: 3 Allergy/AdvReac Type Severity Reaction Status Date / Time No Known Allergies Allergy Verified 05/27/17 08:12 Date of admission: 05/25/17 20:58 Primary care physician: Ron Ward MD Consults: 05/25/17 23:07 Consult to [facility] [CONS] Routine Reason for SW Consult: In [place] 05/29/17 11:29 Consult to Palliative Care [CONS] Routine Comment: Consulting Provider: Palliative Care [facility] Reason for Consult: recommendations for home care, please. Time Notified: 11:30 Call Completed: Yes 05/30/17 18:38 Consult to Pulmonology [CONS] Routine Consulting Provider: [facility] Reason for Consult: Continued worsening respiratory status. Lung cancer, pt undergoing radiation. Pt not improving, does not want Hospice yet. Looking for recommendations to improve pt for discharge and avoid readmits. Call Completed: No 06/04/17 15:52 Consult to Pulmonology [CONS] Routine Consulting Provider: [facility] Reason for Consult: aspiration Call Completed: Yes Consult to Speech Therapy [CONS] Routine Comment: Evaluate, develop and implement POC Reason for Consult: aspiration Call Completed: Yes 06/05/17 08:54 Consult to Gastroenterology [CONS] Routine Consulting Provider: Gastroenterology [facility] Reason for Consult: EGD to r/o stricture vs mass Time Notified: 08:54 Call Completed: Yes 06/06/17 14:09 Consult to Oncology [CONS] Routine Consulting Provider: [facility]cology [facility] Reason for Consult: patient known to you Time Notified: 14:09 Call Completed: Yes Discharging clinician: Kelly Gonzalez Anticipated date of discharge: 06/08/17 - Constitutional Vitals: Temp Pulse Resp BP Pulse Ox 98.3 F 113 16 137/83 92 06/08/17 07:32 06/08/17 07:32 06/08/17 08:08 06/08/17 07:32 06/08/17 08:08 General appearance: Present: cachectic, cooperative, disheveled, mild distress, A&O X 3, pleasant, underweight, answers questions appropriately - Head Head exam: Present: atraumatic, normocephalic - Eye Eye exam: Present: PERRL, conjuntiva pink, sclera anicteric Pupils: Present: PERRL - Neck Neck exam general surgery: Present: supple, trachea midline. Absent: lymphadenopathy - Respiratory Respiratory exam: Present: decreased breath sounds, prolonged expiratory phase, rhonchi. Absent: accessory muscle use, rales, wheezes - Cardiovascular Cardiovascular exam: Present: RRR, +S1, +S2. Absent: diastolic murmur, gallop, rubs, systolic murmur - GI/Abdominal GI/Abdominal exam: Present: normal bowel sounds, soft, no peritoneal signs. Absent: distended, tenderness - Extremities Exam Extremities exam: Present: warm, radial pulses palpable and symmetrical. Absent : calf tenderness, cyanotic, pedal edema - Neurological Exam Neurological exam: Present: alert, CN II-XII intact, oriented X3, no focal deficits. Absent: pronater drift, facial droop, speech deficit - Skin Skin exam: Present: dry, intact, normal color, warm - Patient Status Disposition: Home Health Service Condition: Good Functional capacity at discharge: independent ambulation Overall status at discharge: patient is not back to baseline - Discharge Instructions Follow Up With: Ron Ward MD [Primary Care Provider] - 06/20/17 2:00 pm Additional Instructions: Follow up with PCP next week. Follow up with oncology as scheduled. Return to the ER as needed for any other problems or concerns. Take your medications as directed. Contact information given for [facility] oncology services as patient requesting second opinion - Diet and Activity Activity: increase activity as tolerated Diet: other (low fat, low acid diet) - VTE Documentation of Mechanical Device: Intermittent pneumatic compression device
[2017-06-08] MEDS: Ondansetron 4 MG/2 ML VIAL IVP PRN (10:13)
[2017-06-08] MEDS: Albuterol 2.5 MG/3 ML NEBULIZER IH PRN (10:46)
[2017-06-08] MEDS: Tiotropium 18 MCG inhalation IH SCH (10:47)
--- NOTE | 2017-06-08 10:54 | Physician Discharge Referral ---
Home Health/Hosp Referral Info Transfer to: Home Health Attending Provider: martinez diallo Diagnosis (1) HCAP (healthcare-associated pneumonia) Priority: Primary Status: Acute (2) HTN (hypertension) Priority: Primary Status: Chronic (3) Chronic respiratory failure with hypoxia Priority: Primary Status: Chronic (4) Small cell lung cancer, right lower lobe Priority: Primary Status: Chronic (5) COPD exacerbation Priority: Primary Status: Acute (6) Dysphagia Priority: Primary Status: Acute (7) Esophagitis, acute Priority: Primary Status: Acute (8) Nausea & vomiting Priority: Primary Status: Acute (9) Tobacco abuse Priority: Primary Status: Chronic (10) Anxiety Priority: Primary Status: Acute - Respiratory Orders Oxygen / L per min (to 4 liters continuously) Smoking Cessation: Smoking cessation has been advised. For more information, call the [place] Tobacco Quit Line at 6-408-TYDH-NOW. - Diet/Nutrition Diet/Nutrition Orders: Mechanical Soft - Activity Activity Orders: Up ad em - Services Needed Following services are medically necessary services: Nursing, Home Health Aide - Transfer Medications Prescriptions: Ipratropium/Albuterol Neb [Duoneb] 3 ml IH [id number] #160 inhsol Promethazine [Phenergan] 12.5 mg PO Q6HR PRN #30 tablet PRN Reason: Nausea And Vomiting Amoxicillin/Clavulanate [AUGMENTIN Susp] 875 mg PO Q12HR #20 udc Albuterol Neb [Proventil Neb] 2.5 mg IH Q2H PRN #120 inhsol PRN Reason: Shortness Of Breath/Wheezing Buspirone HCl [Buspar] 15 mg PO BID #60 tablet clonazePAM [Klonopin] 0.5 mg PO BID 30 Days #60 tablet DULoxetine [Cymbalta] 30 mg PO HS #30 capsule. Lidocaine Patch [Lidoderm 5% patch] 1 each TP DAILY #30 adh..patch Lidocaine Viscous Oral Soln 15 ml MM BID 10 Days #240 solution Lisinopril [Zestril] 2.5 mg PO DAILY #30 tablet Nystatin [Nystatin Suspension] 100,000 units PO QID #120 ml Omeprazole [PriLOSEC] 20 mg PO DAILY@0630 #30 capsule. Polyethylene Glycol 3350 [MiraLAX] 17 gm PO DAILY PRN #30 powd.pack PRN Reason: Constipation Potassium Chloride Elixir [Potassium Chloride] 40 meq PO DAILY 10 Days #150 udc predniSONE [PredniSONE] 10 mg PO DAILY #120 tablet Promethazine [Phenergan] 12.5 mg PO ACHS 20 Days #40 tablet Sucralfate [Carafate] 1 gm PO QIDAC #40 udc Sucralfate [Carafate] 1 gm PO ACHS #240 oral.susp Home Medications: Trazodone HCl 200 mg PO HS 02/15/16 [History] Albuterol Sulfate [Albuterol Inhaler] 2 puff IH Q6H PRN 10/14/16 [History] Budesonide/Formoterol 160/4.5 [Symbicort 160/4.5] 2 puff IH BIDR 10/14/16 [ History] Oxygen 2 l NS AD 10/14/16 [History] Tiotropium [Spiriva] 18 mcg IH DAILY 10/14/16 [History] Ascorbate Calcium [Vitamin C] 500 mg PO DAILY 12/14/16 [History] Sennosides/Docusate Sodium [Senna-Docusate Sodium Tablet] 2 each PO BID PRN #60 tablet 12/22/16 [Rx] Calcium Carbonate/Vitamin D3 [Calcium 500 + Vit D Caplet] 2 each PO DAILY #60 tablet 12/26/16 [Rx] Cholecalciferol (D-3) [Vitamin D] 5,000 unit PO DAILY 02/02/17 [History] Melatonin [Melatin] 3 mg PO HS 02/02/17 [History] Carvedilol 12.5 mg PO BID #60 tab 05/23/17 [Rx] GuaiFENesin ER [Mucinex] 600 mg PO BID #60 tbbp.12hr 05/23/17 [Rx] LORazepam [Ativan] 0.5 mg PO BID PRN 7 Days #14 tablet 05/23/17 [Rx] OxyCODONE Immed Rel [Roxicodone 10 MG] 10 mg PO TID PRN 7 Days #21 tablet [Rx] hydrALAZINE [HydrALAZINE] 25 mg PO Q8HR #90 tablet 05/23/17 [Rx] Lidocaine Patch [Lidoderm 5% patch] 1 each TP DAILY #30 adh..patch 06/03/17 [Rx] Lisinopril [Zestril] 2.5 mg PO DAILY #30 tablet 06/03/17 [Rx] Omeprazole [PriLOSEC] 20 mg PO DAILY@0630 #30 capsule. 06/03/17 [Rx] Promethazine [Phenergan] 12.5 mg PO Q6HR PRN #30 tablet 06/03/17 [Rx] Sucralfate [Carafate] 1 gm PO QIDAC #40 udc 06/03/17 [Rx] Albuterol Neb [Proventil Neb] 2.5 mg IH Q2H PRN #120 inhsol 06/08/17 [Rx] Amoxicillin/Clavulanate [AUGMENTIN Susp] 875 mg PO Q12HR #20 udc 06/08/17 [Rx] Buspirone HCl [Buspar] 15 mg PO BID #60 tablet 06/08/17 [Rx] DULoxetine [Cymbalta] 30 mg PO HS #30 capsule. 06/08/17 [Rx] Ipratropium/Albuterol Neb [Duoneb] 3 ml IH [id number] #160 inhsol 06/08/17 [Rx] Lidocaine Viscous Oral Soln 15 ml MM BID 10 Days #240 solution 06/08/17 [Rx] Nystatin [Nystatin Suspension] 100,000 units PO QID #120 ml 06/08/17 [Rx] Polyethylene Glycol 3350 [MiraLAX] 17 gm PO DAILY PRN #30 powd.pack 06/08/17 [Rx ] Potassium Chloride Elixir [Potassium Chloride] 40 meq PO DAILY 10 Days #150 udc 06/08/17 [Rx] Promethazine [Phenergan] 12.5 mg PO ACHS 20 Days #40 tablet 06/08/17 [Rx] Sucralfate [Carafate] 1 gm PO ACHS #240 oral.susp 06/08/17 [Rx] clonazePAM [Klonopin] 0.5 mg PO BID 30 Days #60 tablet 06/08/17 [Rx] predniSONE [PredniSONE] 10 mg PO DAILY #120 tablet 06/08/17 [Rx] Allergies/Adverse Reactions: 3 Allergy/AdvReac Type Severity Reaction Status Date / Time No Known Allergies Allergy Verified 05/27/17 08:12 Certification: Further, I certify that my clinical findings support that this patient is homebound (i.e. absences from home require considerable and taxing effort and are for medical reasons or congregational services or infrequently or short duration when for other reasons) because: Homebound Reason: Patient requires assistance of a person or device to safely leave home, Absences from home are contraindicated except to recieve medical care, Severity of cardiac or pulmonary status limits activity tolerance Attestation: My signature below is to certify that this patient is under my care and that I, or nurse practitioner, or a physician's health information assistant working with me, has a face-to -face encounter with this patient.
== END 2017-06-08 12:58 | disposition home health service (06) | DRG 193 ==
LOC: 3BNU 18:23 → EMEROO 18:23 → 3BNU 21:07
PROVIDERS: ADMIT Family Medicine; ATTEND Registered Nurse

== ENCOUNTER 2017-06-13 14:07 | Inpatient (IN) ==
[2017-06-13] MEDS ORDERED: methylPREDNISolone 125 MG/2 ML VIAL IVP ONE (14:59)
[2017-06-13] MEDS ORDERED: Ipratropium/Albuterol Neb 3 ML IH ONE (14:59)
--- NOTE | 2017-06-13 15:02 | Emergency Department Note ---
Disposition Clinical Impression: HCAP (healthcare-associated pneumonia) Dyspnea Qualifiers: Dyspnea type: unspecified Qualified Code(s): R06.00 - Dyspnea, unspecified Disposition: Admitted As Inpatient Condition: Fair Referrals: Ron Ward MD [Primary Care Provider] - Forms: ED Satisfaction Letter Time of Disposition: 16:42 SOB HPI - General Chief Complaint: ED Shortness of Breath/Dyspnea Stated Complaint: NOHELIA,weak Time Seen by Provider: 06/13/17 14:20 Source: patient, family Limitations: physical limitation Nursing Notes Reviewed: Yes Vital Signs Reviewed: Yes - History of Present Illness Mrs. Keenan, a 61-year-old female, presents from home for violation of dyspnea. Onset 3 hours prior to arrival. Patient has known history of COPD with baseline 2 L oxygen as well as home DuoNeb's and inhalers. This is not helping her symptoms. She has associated change in her cough that is productive. Patient notes this feels similar to her as her prior pneumonia. Patient was recently discharged from this facility less than 1 week ago. ROS: Positive: As above Negative: Fever, chills, nausea, vomiting, chest pains, palpitations, diaphoresis, unusual back pain, abdominal pain, change of bowel or bladder - Related Data Home Medications Medication Instructions Recorded Confirmed Trazodone HCl 200 mg PO HS 02/15/16 05/27/17 Albuterol Sulfate [Albuterol 2 puff IH Q6H PRN 10/14/16 05/27/17 Inhaler] Budesonide/Formoterol 160/4.5 2 puff IH BIDR 10/14/16 05/27/17 [Symbicort 160/4.5] Oxygen 2 l NS AD 10/14/16 05/27/17 Tiotropium [Spiriva] 18 mcg IH DAILY 10/14/16 05/27/17 Ascorbate Calcium [Vitamin C] 500 mg PO DAILY 12/14/16 05/27/17 Cholecalciferol (D-3) [Vitamin D] 5,000 unit PO DAILY 02/02/17 05/27/17 Melatonin [Melatin] 3 mg PO HS 02/02/17 05/27/17 Previous Rx's Medication Instructions Recorded Sennosides/Docusate Sodium 2 each PO BID PRN #60 tablet 12/22/16 [Senna-Docusate Sodium Tablet] Calcium Carbonate/Vitamin D3 2 each PO DAILY #60 tablet 12/26/16 [Calcium 500 + Vit D Caplet] Carvedilol 12.5 mg PO BID #60 tab 05/23/17 GuaiFENesin ER [Mucinex] 600 mg PO BID #60 tbbp.12hr 05/23/17 LORazepam [Ativan] 0.5 mg PO BID PRN 7 Days #14 tablet 05/23/17 OxyCODONE Immed Rel [Roxicodone 10 10 mg PO TID PRN 7 Days #21 tablet 05/23/17 MG] hydrALAZINE [HydrALAZINE] 25 mg PO Q8HR #90 tablet 05/23/17 Lidocaine Patch [Lidoderm 5% patch] 1 each TP DAILY #30 adh..patch 06/03/17 Lisinopril [Zestril] 2.5 mg PO DAILY #30 tablet 06/03/17 Omeprazole [PriLOSEC] 20 mg PO DAILY@0630 #30 capsule. 06/03/17 Promethazine [Phenergan] 12.5 mg PO Q6HR PRN #30 tablet 06/03/17 Sucralfate [Carafate] 1 gm PO QIDAC #40 udc 06/03/17 Albuterol Neb [Proventil Neb] 2.5 mg IH Q2H PRN #120 inhsol 06/08/17 Amoxicillin/Clavulanate [AUGMENTIN 875 mg PO Q12HR #20 udc 06/08/17 Susp] Buspirone HCl [Buspar] 15 mg PO BID #60 tablet 06/08/17 DULoxetine [Cymbalta] 30 mg PO HS #30 capsule. 06/08/17 Ipratropium/Albuterol Neb [Duoneb] 3 ml IH [id number] #160 inhsol 06/08/17 Lidocaine Viscous Oral Soln 15 ml MM BID 10 Days #240 solution 06/08/17 Nystatin [Nystatin Suspension] 100,000 units PO QID #120 ml 06/08/17 Polyethylene Glycol 3350 [MiraLAX] 17 gm PO DAILY PRN #30 powd.pack 06/08/17 Potassium Chloride Elixir 40 meq PO DAILY 10 Days #150 udc 06/08/17 [Potassium Chloride] Promethazine [Phenergan] 12.5 mg PO ACHS 20 Days #40 tablet 06/08/17 Sucralfate [Carafate] 1 gm PO ACHS #240 oral.susp 06/08/17 clonazePAM [Klonopin] 0.5 mg PO BID 30 Days #60 tablet 06/08/17 predniSONE [PredniSONE] 10 mg PO DAILY #120 tablet 06/08/17 Allergies Allergy/AdvReac Type Severity Reaction Status Date / Time No Known Allergies Allergy Verified 06/13/17 14:17 All systems ED: reviewed and negative except as stated. Review of Systems: As Per HPI Past Medical History - Past Medical History Medical history: Reports: cancer, COPD, hypertension Surgical history: Reports: hysterectomy Psychiatric history: Reports: anxiety, depression SALES AGENT history: Reports: no SALES AGENT history - Social History Smoking Status: Current every day smoker Smokeless Tobacco Status: No Alcohol use: Reports: none Drug use: Reports: none Physical Exam Vital Signs Reviewed General: Patient is alert, oriented, and in no acute distress. She appears frail and older than stated age. Head: atraumatic, normocephalic Eye: normal appearance, PERRL, EOMI, no scleral icterus, no conjunctival injection ENT: mucous membranes moist, normal external ear exam Neck: normal inspection, trachea midline, full ROM Chest: normal inspection, symmetric chest rise Respiratory: Kyphotic thoracic spine. Poor respiratory effort. Prolonged expiratory phase. Bilateral breath sounds are diminished with scattered wheeze and mild bibasilar crackles. Cardiovascular: Regular rate and rhythm. No clicks, rubs, gallops, or murmors. Normal heart sounds. Abdomen: Bowel sounds present normoactive x-4 quadrants. Abdomen is soft, nondistended, and nontender. No guarding or rebound. No organomegaly noted. Musculoskeletal: Spontaneously moving all extremities. Skin: warm, dry, intact. Neuro: Alert and oriented x4. Sensation light touch intact. Psych: Patient's affect is appropriate for situation. - General Limitations: physical limitation General appearance: alert, in no apparent distress Course Course Narrative: EKG dated 06/13/17 and 14:29 interpreted as sinus tachycardia with a rate of 128. Rare PAC. Peak P waves consistent with pulmonary disease. Normal axis. Nonspecific ST-T changes. Compared to previous dated 05/25/2017 showing no acute ischemic changes or comparison. Patient has improved a remains dyspneic after 9 mg DuoNeb's. Chest x-ray concerning for worsening left lower lobe pneumonia. This is H Given her recent discharge from this facility. She is agreeable to admission for continued IV antibiotics - date and cefepime. She has received Solu-Medrol. Troponin is less than 0.03. EKG shows no acute ischemic changes. I discussed the patient with the admitting hospitalist, Dr. Pal, who agrees to accept the patient for continued evaluation and management. Chest X-Ray 06/13/17 14:59 IMPRESSION: 1. Worsening consolidation in the left lung base, concerning for pneumonia. 2. The right hilar mass noted on the previous CT of the chest is not well seen on the current exam. 3. Stable scarring/atelectasis in the right lung base. 4. Increased pulmonary vascular congestion. D/ / 06/13/2017 15:49:06 [facility] Interpreting Provider: Blu Avendano MD Vital Signs Temperature 98.8 F 06/13/17 14:17 Pulse Rate 106 06/13/17 14:17 Respiratory Rate 24 06/13/17 14:17 Blood Pressure 94/61 06/13/17 14:17 O2 Sat by Pulse Oximetry 95 06/13/17 14:17 Temperature 98.8 F 06/13/17 14:17 Pulse Rate 121 06/13/17 15:24 Respiratory Rate 18 06/13/17 15:24 Blood Pressure 101/58 06/13/17 15:24 O2 Sat by Pulse Oximetry 98 06/13/17 15:24 Oxygen Delivery Oxygen Delivery Room Air Shortness of Breath/Dyspnea - Lab Data Result diagrams: 06/13/17 15:07 06/13/17 15:07 Lab Results 06/13/17 06/13/17 06/13/17 Range/Units 15:07 15:07 15:07 WBC 7.2 (4.3-11.1) K/mcL RBC 3.84 (3.82-4.97) M/mcL Hgb 11.6 D (11.5-15.4) g/dL Hct 35.6 (35.3-44.9) % MCV 92.7 (83.0-100.0) fL MCH 30.2 (28.0-33.3) pg MCHC 32.6 (31.6-35.5) g/dL RDW 14.0 (11.5-14.5) % Plt Count 343 (140-400) K/mcL MPV 9.0 L (9.4-12.4) fL Immature Gran % 1.3 (0-4) % Seg Neutrophils % 80.9 % Lymphocytes % 13.1 % Monocytes % 4.3 % Eosinophils % 0.1 % Basophils % 0.3 % Neutrophils # 5.8 (1.6-8.9) K/mcL Lymphocytes # 0.9 (0.6-4.6) K/mcL Monocytes # 0.3 (0.0-1.3) K/mcL Eosinophils # 0.0 (0.0-0.6) K/mcL Basophils # 0.0 (0.0-0.2) K/mcL Nucleated RBCs/100 WBC 0.6 H (0) /100 WBC Sodium 135 L (136-145) mEq/L Potassium 4.2 (3.5-5.1) mEq/L Chloride 95 L (98-107) mEq/L Carbon Dioxide 34 H (23-29) mEq/L BUN 8 (8-23) mg/dL Creatinine 0.40 L (0.60-1.20) mg/dL Est GFR ( Amer) > 60 (> 60) Est GFR (Non-Af Amer) > 60 (> 60) BUN/Creatinine Ratio 20 (6-26) Glucose 111 H (70-105) mg/dL POC Glucose (70-99) mg/dL Calculated Osmolality 279 L (280-300) Lactic Acid 1.6 (0.5-2.2) mmol/L Calcium 9.1 (8.6-10.3) mg/dL Troponin I < 0.03 (< 0.04) ng/mL B-Natriuretic Peptide (Less than 100) pg/mL 06/13/17 06/13/17 Range/Units 15:07 15:17 WBC (4.3-11.1) K/mcL RBC (3.82-4.97) M/mcL Hgb (11.5-15.4) g/dL Hct (35.3-44.9) % MCV (83.0-100.0) fL MCH (28.0-33.3) pg MCHC (31.6-35.5) g/dL RDW (11.5-14.5) % Plt Count (140-400) K/mcL MPV (9.4-12.4) fL Immature Gran % (0-4) % Seg Neutrophils % % Lymphocytes % % Monocytes % % Eosinophils % % Basophils % % Neutrophils # (1.6-8.9) K/mcL Lymphocytes # (0.6-4.6) K/mcL Monocytes # (0.0-1.3) K/mcL Eosinophils # (0.0-0.6) K/mcL Basophils # (0.0-0.2) K/mcL Nucleated RBCs/100 WBC (0) /100 WBC Sodium (136-145) mEq/L Potassium (3.5-5.1) mEq/L Chloride (98-107) mEq/L Carbon Dioxide (23-29) mEq/L BUN (8-23) mg/dL Creatinine (0.60-1.20) mg/dL Est GFR ( Amer) (> 60) Est GFR (Non-Af Amer) (> 60) BUN/Creatinine Ratio (6-26) Glucose (70-105) mg/dL POC Glucose 117 H (70-99) mg/dL Calculated Osmolality (280-300) Lactic Acid (0.5-2.2) mmol/L Calcium (8.6-10.3) mg/dL Troponin I (< 0.04) ng/mL B-Natriuretic Peptide 35 (Less than 100) pg/mL Attestation Statement - Attestation Attestation: I, Jerod Barfield DO, examined this patient [id number] and my medical decision-making was reviewed with Dr. Aristides Barragan, Resident Physician. I agree with the documented findings, disposition and treatment plan as described except to the extent set forth below. Please see my progress notes for details.
[2017-06-13 15:32] LABS: Basophils % 0.3 %; Eosinophils % 0.1 %; Hematocrit 35.6 % (35.3-44.9); Immature Granulocytes % 1.3 % (0-4); Lymphocytes # 0.9 K/mcL (0.6-4.6); Lymphocytes % 13.1 %; Mean Corpuscular HGB Conc 32.6 g/dL (31.6-35.5); Mean Corpuscular Hemoglobin 30.2 pg (28.0-33.3); Mean Corpuscular Volume 92.7 fL (83.0-100.0); Monocytes # 0.3 K/mcL (0.0-1.3); Monocytes % 4.3 %; Neutrophils # 5.8 K/mcL (1.6-8.9); Nucleated Red Blood Cells 0.6 /100 WBC (0); Platelet Count 343 K/mcL (140-400); Red Blood Count 3.84 M/mcL (3.82-4.97); Segmented Neutrophils % 80.9 %
[2017-06-13 15:34] LABS: Hemoglobin 11.6 g/dL (11.5-15.4)
[2017-06-13] MEDS ORDERED: Acetaminophen 325 MG TABLET PO ONE (15:41)
[2017-06-13 15:46] LABS: BUN/Creatinine Ratio 20 (6-26); Blood Urea Nitrogen 8 mg/dL (8-23); Calcium 9.1 mg/dL (8.6-10.3); Carbon Dioxide 34 mEq/L (23-29); Chloride 95 mEq/L (98-107); Glucose 111 mg/dL (70-105); Osmolality,Calculated 279 (280-300); Potassium 4.2 mEq/L (3.5-5.1); Sodium 135 mEq/L (136-145); Troponin I < 0.03 ng/mL (< 0.04); eGFR For African Americans > 60 (> 60); eGFR For Non-African Americans > 60 (> 60)
--- NOTE | 2017-06-13 16:12 | Emergency Department Note ---
Disposition Clinical Impression: Dyspnea, HCAP (healthcare-associated pneumonia), Acute exacerbation of chronic obstructive airways disease Disposition: Admitted As Inpatient Condition: Fair Referrals: Ron Ward MD [Primary Care Provider] - Forms: ED Satisfaction Letter Time of Disposition: 17:09 General Adult HPI - General Chief complaint: ED Shortness of Breath/Dyspnea Stated complaint: NOHELIA,weak Time Seen by Provider: 06/13/17 14:20 Source: patient, family Limitations: physical limitation - History of Present Illness Pain Scale: 5 - Related Data Home Medications Medication Instructions Recorded Confirmed Trazodone HCl 200 mg PO HS 02/15/16 05/27/17 Albuterol Sulfate [Albuterol 2 puff IH Q6H PRN 10/14/16 05/27/17 Inhaler] Budesonide/Formoterol 160/4.5 2 puff IH BIDR 10/14/16 05/27/17 [Symbicort 160/4.5] Oxygen 2 l NS AD 10/14/16 05/27/17 Tiotropium [Spiriva] 18 mcg IH DAILY 10/14/16 05/27/17 Ascorbate Calcium [Vitamin C] 500 mg PO DAILY 12/14/16 05/27/17 Cholecalciferol (D-3) [Vitamin D] 5,000 unit PO DAILY 02/02/17 05/27/17 Melatonin [Melatin] 3 mg PO HS 02/02/17 05/27/17 Previous Rx's Medication Instructions Recorded Sennosides/Docusate Sodium 2 each PO BID PRN #60 tablet 12/22/16 [Senna-Docusate Sodium Tablet] Calcium Carbonate/Vitamin D3 2 each PO DAILY #60 tablet 12/26/16 [Calcium 500 + Vit D Caplet] Carvedilol 12.5 mg PO BID #60 tab 05/23/17 GuaiFENesin ER [Mucinex] 600 mg PO BID #60 tbbp.12hr 05/23/17 LORazepam [Ativan] 0.5 mg PO BID PRN 7 Days #14 tablet 05/23/17 OxyCODONE Immed Rel [Roxicodone 10 10 mg PO TID PRN 7 Days #21 tablet 05/23/17 MG] hydrALAZINE [HydrALAZINE] 25 mg PO Q8HR #90 tablet 05/23/17 Lidocaine Patch [Lidoderm 5% patch] 1 each TP DAILY #30 adh..patch 06/03/17 Lisinopril [Zestril] 2.5 mg PO DAILY #30 tablet 06/03/17 Omeprazole [PriLOSEC] 20 mg PO DAILY@0630 #30 capsule. 06/03/17 Promethazine [Phenergan] 12.5 mg PO Q6HR PRN #30 tablet 06/03/17 Sucralfate [Carafate] 1 gm PO QIDAC #40 udc 06/03/17 Albuterol Neb [Proventil Neb] 2.5 mg IH Q2H PRN #120 inhsol 06/08/17 Amoxicillin/Clavulanate [AUGMENTIN 875 mg PO Q12HR #20 udc 06/08/17 Susp] Buspirone HCl [Buspar] 15 mg PO BID #60 tablet 06/08/17 DULoxetine [Cymbalta] 30 mg PO HS #30 capsule. 06/08/17 Ipratropium/Albuterol Neb [Duoneb] 3 ml IH [id number] #160 inhsol 06/08/17 Lidocaine Viscous Oral Soln 15 ml MM BID 10 Days #240 solution 06/08/17 Nystatin [Nystatin Suspension] 100,000 units PO QID #120 ml 06/08/17 Polyethylene Glycol 3350 [MiraLAX] 17 gm PO DAILY PRN #30 powd.pack 06/08/17 Potassium Chloride Elixir 40 meq PO DAILY 10 Days #150 udc 06/08/17 [Potassium Chloride] Promethazine [Phenergan] 12.5 mg PO ACHS 20 Days #40 tablet 06/08/17 Sucralfate [Carafate] 1 gm PO ACHS #240 oral.susp 06/08/17 clonazePAM [Klonopin] 0.5 mg PO BID 30 Days #60 tablet 06/08/17 predniSONE [PredniSONE] 10 mg PO DAILY #120 tablet 06/08/17 Allergies Allergy/AdvReac Type Severity Reaction Status Date / Time No Known Allergies Allergy Verified 06/13/17 17:07 Past Medical History - Past Medical History Medical history: Reports: cancer, COPD, hypertension Surgical history: Reports: hysterectomy Psychiatric history: Reports: anxiety, depression TRANSFER STATION OPERATOR history: Reports: no TRANSFER STATION OPERATOR history - Social History Smoking Status: Current every day smoker Smokeless Tobacco Status: No Alcohol use: Reports: none Drug use: Reports: none Physical Exam - General Limitations: physical limitation General appearance: alert, in no apparent distress Course Vital Signs Temperature 98.8 F 06/13/17 14:17 Pulse Rate 106 06/13/17 14:17 Respiratory Rate 24 06/13/17 14:17 Blood Pressure 94/61 06/13/17 14:17 O2 Sat by Pulse Oximetry 95 06/13/17 14:17 Temperature 98.8 F 06/13/17 14:17 Pulse Rate 126 06/13/17 17:08 Respiratory Rate 16 06/13/17 17:08 Blood Pressure 107/66 06/13/17 17:08 O2 Sat by Pulse Oximetry 93 06/13/17 17:08 Oxygen Delivery Oxygen Delivery Nasal Cannula Medical Decision Making - Lab Data Result diagrams: 06/13/17 15:07 06/13/17 15:07 Lab Results 06/13/17 06/13/17 06/13/17 Range/Units 15:07 15:07 15:07 WBC 7.2 (4.3-11.1) K/mcL RBC 3.84 (3.82-4.97) M/mcL Hgb 11.6 D (11.5-15.4) g/dL Hct 35.6 (35.3-44.9) % MCV 92.7 (83.0-100.0) fL MCH 30.2 (28.0-33.3) pg MCHC 32.6 (31.6-35.5) g/dL RDW 14.0 (11.5-14.5) % Plt Count 343 (140-400) K/mcL MPV 9.0 L (9.4-12.4) fL Immature Gran % 1.3 (0-4) % Seg Neutrophils % 80.9 % Lymphocytes % 13.1 % Monocytes % 4.3 % Eosinophils % 0.1 % Basophils % 0.3 % Neutrophils # 5.8 (1.6-8.9) K/mcL Lymphocytes # 0.9 (0.6-4.6) K/mcL Monocytes # 0.3 (0.0-1.3) K/mcL Eosinophils # 0.0 (0.0-0.6) K/mcL Basophils # 0.0 (0.0-0.2) K/mcL Nucleated RBCs/100 WBC 0.6 H (0) /100 WBC Sodium 135 L (136-145) mEq/L Potassium 4.2 (3.5-5.1) mEq/L Chloride 95 L (98-107) mEq/L Carbon Dioxide 34 H (23-29) mEq/L BUN 8 (8-23) mg/dL Creatinine 0.40 L (0.60-1.20) mg/dL Est GFR ( Amer) > 60 (> 60) Est GFR (Non-Af Amer) > 60 (> 60) BUN/Creatinine Ratio 20 (6-26) Glucose 111 H (70-105) mg/dL POC Glucose (70-99) mg/dL Calculated Osmolality 279 L (280-300) Lactic Acid 1.6 (0.5-2.2) mmol/L Calcium 9.1 (8.6-10.3) mg/dL Troponin I < 0.03 (< 0.04) ng/mL B-Natriuretic Peptide (Less than 100) pg/mL 06/13/17 06/13/17 Range/Units 15:07 15:17 WBC (4.3-11.1) K/mcL RBC (3.82-4.97) M/mcL Hgb (11.5-15.4) g/dL Hct (35.3-44.9) % MCV (83.0-100.0) fL MCH (28.0-33.3) pg MCHC (31.6-35.5) g/dL RDW (11.5-14.5) % Plt Count (140-400) K/mcL MPV (9.4-12.4) fL Immature Gran % (0-4) % Seg Neutrophils % % Lymphocytes % % Monocytes % % Eosinophils % % Basophils % % Neutrophils # (1.6-8.9) K/mcL Lymphocytes # (0.6-4.6) K/mcL Monocytes # (0.0-1.3) K/mcL Eosinophils # (0.0-0.6) K/mcL Basophils # (0.0-0.2) K/mcL Nucleated RBCs/100 WBC (0) /100 WBC Sodium (136-145) mEq/L Potassium (3.5-5.1) mEq/L Chloride (98-107) mEq/L Carbon Dioxide (23-29) mEq/L BUN (8-23) mg/dL Creatinine (0.60-1.20) mg/dL Est GFR ( Amer) (> 60) Est GFR (Non-Af Amer) (> 60) BUN/Creatinine Ratio (6-26) Glucose (70-105) mg/dL POC Glucose 117 H (70-99) mg/dL Calculated Osmolality (280-300) Lactic Acid (0.5-2.2) mmol/L Calcium (8.6-10.3) mg/dL Troponin I (< 0.04) ng/mL B-Natriuretic Peptide 35 (Less than 100) pg/mL Attestation Statement - Attestation Attestation: I, Jerod Barfield DO, examined this patient [id number] and my medical decision-making was reviewed with Dr. Aristides Barragan, Resident Physician. I agree with the documented findings, disposition and treatment plan as described except to the extent set forth below. Please see my progress notes for details. 60-year-old female that is well known to this facility presents today for what appears to be an acute exacerbation of her chronic COPD. She has also had a productive cough for the last several days. She was just discharged from the hospital approximately 2-1/2 weeks ago with medication including antibiotics steroids and inhalers. Patient typically uses 2 L of oxygen at home 24 hours a day but has required 4 L of oxygen 24 hours a day at this time. Patient denies any trauma or injury. Denies any fevers or chills chest pain shortness breath headache vision changes, cold or congestion outside of the intermittently productive sputum that she has had over the last several days. Patient denies any travel or recent injuries. Physical exam shows a well-appearing female in some respiratory distress patient has coarse crackles intermittent wheezing in all lung putnam auscultated during my evaluation. Her heart is regular. Abdomen is soft nontender nondistended with no guarding no rigidity and no peritoneal symptoms at this time. She has no swelling or edema in the bilateral lower extremities with good pulses. Patient will be provided breathing treatments steroids and potential antibiotic regimen for healthcare acquired pneumonia. Patient will need further workup including chest x-ray EKG labs the CBC chemistry troponin at this point. Disposition will be determined once full workup and treatment course is completed. Concern is noted that the patient has failed outpatient management with her oxygen and inhalers at home. Patient is otherwise clinically stable but does have conversational and exertional dyspnea. See detailed documentation of the physical exam, medical intervention, medical decision-making and disposition in the resident physician' s note. No critical care provider this patient's treatment course at this time. 1635 Patient is found to have persistent/worsening left lower lobe pneumonia. Patient be started on antibiotics covering for healthcare acquired pneumonia at this time. Labs otherwise unremarkable this point. Patient was provided with another breathing treatment as well as pain medication by mouth this time. Patient will be admitted for further management. Hospitalist was contacted and no other concerns questions or issues at this point. Patient is otherwise clinically stable at the time of admission the hospital for what appears to be persistent pneumonia and failed outpatient management of COPD.
[2017-06-13] MEDS ORDERED: Cefepime HCl 2,000 MG in Water for inj. (sterile) 20 ML 20 ML IVP STA (16:22)
[2017-06-13] MEDS ORDERED: Sucralfate 1 GM TABLET PO STA (16:43)
[2017-06-13] MEDS ORDERED: Albuterol 2.5 MG/3 ML NEBULIZER IH ONE (17:03)
[2017-06-13] MEDS ORDERED: *HR* HYDROcodone/Acet 5/325 mg TABLET PO ONE (17:03)
[2017-06-13] MEDS ORDERED: Naloxone 0.4 MG/ML INJ IVP PRN (21:45)
[2017-06-13] MEDS ORDERED: Ipratropium/Albuterol Neb 3 ML IH PRN (21:50)
[2017-06-13] MEDS ORDERED: Albuterol 2.5 MG/3 ML NEBULIZER ONE (23:27)
[2017-06-13] MEDS ORDERED: Ipratropium/Albuterol Neb 3 ML ONE (23:27)
--- NOTE | 2017-06-13 23:50 | Internal Med History&Physical ---
Date of Encounter: 06/13/17 Time of Encounter: 20:00 Internal Medicine - H&P: HPI Chief complaint: Shortness of breath Admitted From: Home Plans for Post Hospital Care: Home History of present illness: Ms. Keenan is a 61 year old female present to ER for shortness of breath. Past medical history is significant for small cell lung cancer with liver, bone , and brain metastasis, COPD. Patient was recently admitted several times for pneumonia/respiratory symptoms. Patient did develop shortness of breath today, with productive cough. Patient has yellowish sputum. Patient denies fever, chest pain, nausea, or vomiting. Patient need higher level oxygen to maintain saturation, she use 2 liter nasal cannula oxygen at home but need 4 liter at this point. In the emergency room, chest x-ray shows infiltrate on left lower lobe. Patient was admitted for HCAP and COPD exacerbation. Past Med Surg Social Fam HX - Past Medical History Medical history: cancer, COPD, hypertension Psychiatric history: anxiety, depression - Past Surgical History Surgical History: hysterectomy - Social History Smoking Status: Current every day smoker Smokeless Tobacco Status: No Alcohol use: none Drug use: none - Family History Sister Adopted: No Family Member Ethnicity: Non- Living Status: Still Living Hx Family Cardiac Disorders: Yes (HTN) Hx Family Respiratory Disorders: No Hx Family Cancer: Yes (Lymphoma) Hx Family GI Disorders: No Hx Family Endocrine Disorder: No Hx Family Neuromuscular Disorders: No Hx Family Neurologic Disorders: No Hx Family HEENT Disorders: No Hx Family Autoimmune Disorders: No Mother Family Member Ethnicity: Non- Living Status: Cause of : anerysm Hx Family Cardiac Disorders: Yes (hypertension,) Hx Family Respiratory Disorders: Yes (COPD) Hx Family Cancer: No Hx Family GI Disorders: No Hx Family Endocrine Disorder: No Hx Family Neuromuscular Disorders: No Hx Family Neurologic Disorders: No Hx Family HEENT Disorders: No Father Adopted: No Family Member Ethnicity: Non- Living Status: Hx Family Cardiac Disorders: Yes Hx Family Respiratory Disorders: Yes (mother copd) Hx Family Cancer: No Hx Family GI Disorders: No Hx Family Endocrine Disorder: No Hx Family Neuromuscular Disorders: No Hx Family Neurologic Disorders: No Hx Family HEENT Disorders: No Hx Family Autoimmune Disorders: No Internal Medicine - H&P: Meds Trazodone HCl 200 mg PO HS 02/15/16 [History] Albuterol Sulfate [Albuterol Inhaler] 2 puff IH Q6H PRN 10/14/16 [History] Budesonide/Formoterol 160/4.5 [Symbicort 160/4.5] 2 puff IH BIDR 10/14/16 [ History] Oxygen 2 l NS AD 10/14/16 [History] Ascorbate Calcium [Vitamin C] 500 mg PO DAILY 12/14/16 [History] Calcium Carbonate/Vitamin D3 [Calcium 500 + Vit D Caplet] 2 each PO DAILY #60 tablet 12/26/16 [Rx] Cholecalciferol (D-3) [Vitamin D] 5,000 unit PO DAILY 02/02/17 [History] LORazepam [Ativan] 0.5 mg PO BID PRN 7 Days #14 tablet 05/23/17 [Rx] Omeprazole [PriLOSEC] 20 mg PO DAILY@0630 #30 capsule. 06/03/17 [Rx] Albuterol Neb [Proventil Neb] 2.5 mg IH Q2H PRN #120 inhsol 06/08/17 [Rx] Amoxicillin/Clavulanate [AUGMENTIN Susp] 875 mg PO Q12HR #20 udc 06/08/17 [Rx] Buspirone HCl [Buspar] 15 mg PO BID #60 tablet 06/08/17 [Rx] DULoxetine [Cymbalta] 30 mg PO HS #30 capsule. 06/08/17 [Rx] Ipratropium/Albuterol Neb [Duoneb] 3 ml IH [id number] #160 inhsol 06/08/17 [Rx] Promethazine [Phenergan] 12.5 mg PO ACHS 20 Days #40 tablet 06/08/17 [Rx] Metoprolol [Lopressor] 12.5 mg PO BID MDD SEE NOTE 06/13/17 [History] Nystatin [Nystatin Suspension] 1 ml PO QID 06/13/17 [History] Potassium Chloride [K-Tab ER] 20 meq PO DAILY 06/13/17 [History] Sucralfate [Carafate] 10 ml PO BID 06/13/17 [History] clonazePAM [Klonopin] 0.5 mg PO BID 06/13/17 [History] predniSONE [PredniSONE] See Taper PO TAPER 06/13/17 [History] 3 Allergy/AdvReac Type Severity Reaction Status Date / Time No Known Allergies Allergy Verified 06/13/17 17:07 All Systems PM: A 10-system review of systems was performed and is negative for pertinent findings except as documented above in the HPI. - Constitutional Vitals: Temp Pulse Resp BP Pulse Ox 97.6 F 107 22 108/73 98 06/13/17 22:05 06/13/17 22:05 06/13/17 23:30 06/13/17 22:05 06/13/17 23:30 General appearance: Present: A&O X 3, no acute distress, answers questions appropriately - Head Head exam: Present: atraumatic, normocephalic - Eye Eye exam: Present: PERRL, conjuntiva pink, sclera anicteric Pupils: Present: PERRL - Neck Neck exam general surgery: Present: supple, trachea midline. Absent: lymphadenopathy - Respiratory Respiratory exam: Present: CTAB, wheezes (Fine wheezes bilaterally). Absent: accessory muscle use, rales, rhonchi - Cardiovascular Cardiovascular exam: Present: RRR, +S1, +S2. Absent: diastolic murmur, gallop, rubs, systolic murmur - GI/Abdominal GI/Abdominal exam: Present: normal bowel sounds, soft, no peritoneal signs. Absent: distended, tenderness - Extremities Exam Extremities exam: Present: warm, radial pulses palpable and symmetrical. Absent : calf tenderness, cyanotic, pedal edema - Neurological Exam Neurological exam: Present: CN II-XII intact, oriented X3, no focal deficits. Absent: pronater drift, facial droop, speech deficit - Skin Skin exam: Present: dry, intact Internal Med - H&P Results - Labs CBC & Chem 7: 06/13/17 15:07 06/13/17 15:07 - EKG Data -: EKG Interpreted by Myself EKG shows normal: sinus rhythm Rate: tachycardia - Assessment and plan (1) Acute exacerbation of chronic obstructive airways disease Current Visit: Yes Status: Acute Assessment and plan: Patient has history of COPD. Increased shortness of breath with bilateral wheezing. Consider COPD exacerbation. - Continue antibiotic, steroid, and bronchodilator - Continue oxygen supportive treatment (2) HCAP (healthcare-associated pneumonia) Current Visit: Yes Status: Acute Assessment and plan: Chest x-ray shows pneumonia. We will treat patient as HCAP with Vanco and cefepime. (3) DVT prophylaxis Current Visit: No Status: Acute Assessment and plan: Heparin subcutaneously (4) Metastatic lung cancer (metastasis from lung to other site) Current Visit: No Status: Acute Assessment and plan: Small cell lung cancer. Continue follow-up as outpatient. Patient said she has appointment with [facility] oncology on Saturday Qualifiers: Laterality: unspecified laterality Qualified Code(s): C34.90 - Malignant neoplasm of unspecified part of unspecified bronchus or lung - Time Spent With Patient Total time spent is greater than 50% in coordination of care (as documented) at patient's floor/unit and/or counseling patient: 40 minutes Greater than 35 minutes
[2017-06-13] MEDS: Budesonide/Formoterol 160/4.5 MDI IH SCH (23:55)
[2017-06-13] MEDS: Ipratropium/Albuterol Neb 3 ML IH SCH (23:55)
[2017-06-14] MEDS: Cefepime HCl 2,000 MG in Water for inj. (sterile) 20 ML 20 ML IVP SCH ×3 (00:06→16:41)
[2017-06-14] MEDS: traZODone 50 MG TABLET PO SCH ×2 (00:16→20:30)
[2017-06-14] MEDS: Ipratropium/Albuterol Neb 3 ML IH SCH ×6 (03:22→23:20)
[2017-06-14] MEDS: *HR* Heparin 5,000 UNIT/ML VIAL SQ SCH ×2 (05:47→16:43)
[2017-06-14 06:04] LABS: Hematocrit 29.3 % (35.3-44.9); Immature Granulocytes % 1.2 % (0-4); Lymphocytes # 0.5 K/mcL (0.6-4.6); Lymphocytes % 15.7 %; Mean Corpuscular HGB Conc 32.1 g/dL (31.6-35.5); Mean Corpuscular Hemoglobin 29.5 pg (28.0-33.3); Mean Corpuscular Volume 91.8 fL (83.0-100.0); Mean Platelet Volume 8.9 fL (9.4-12.4); Monocytes # 0.2 K/mcL (0.0-1.3); Monocytes % 4.7 %; Neutrophils # 2.7 K/mcL (1.6-8.9); Platelet Count 299 K/mcL (140-400); Red Blood Count 3.19 M/mcL (3.82-4.97); Segmented Neutrophils % 78.4 %
[2017-06-14 06:09] LABS: Hemoglobin 9.4 g/dL (11.5-15.4)
[2017-06-14 06:19] LABS: BUN/Creatinine Ratio 23 (6-26); Blood Urea Nitrogen 11 mg/dL (8-23); Calcium 8.7 mg/dL (8.6-10.3); Carbon Dioxide 31 mEq/L (23-29); Chloride 101 mEq/L (98-107); Glucose 219 mg/dL (70-105); Magnesium 1.8 mg/dL (1.6-2.6); Osmolality,Calculated 290 (280-300); Potassium 4.3 mEq/L (3.5-5.1); Sodium 137 mEq/L (136-145); eGFR For African Americans > 60 (> 60); eGFR For Non-African Americans > 60 (> 60)
[2017-06-14 06:29] LABS: Platelet Estimate Normal (Normal); Reactive Lymphocytes Present (Not Present); Toxic Granulation Present (Not Present)
[2017-06-14] MEDS: Nystatin SUSP 5 ML UD.LIQ PO SCH ×4 (07:45→20:30)
[2017-06-14] MEDS: predniSONE 20 MG TABLET PO SCH (07:45)
[2017-06-14] MEDS: clonazePAM 0.5 MG TABLET PO SCH ×2 (07:46→20:30)
[2017-06-14] MEDS: Cholecalciferol (D-3) 1,000 UNIT TABLET PO SCH (07:46)
[2017-06-14] MEDS: Ascorbic Acid 500 MG TABLET PO SCH (07:46)
[2017-06-14] MEDS: Budesonide/Formoterol 160/4.5 MDI IH SCH ×2 (07:54→19:49)
[2017-06-14] MEDS: *HR* OxyCODONE/APAP 7.5/325 TABLET PO PRN (14:54)
[2017-06-14] MEDS: *HR* Promethazine 25 MG/ML VIAL IVP PRN ×2 (14:54→18:59)
[2017-06-14] MEDS: Sucralfate 1 GM TABLET PO SCH ×2 (16:43→21:27)
--- NOTE | 2017-06-14 18:00 | Internal Med Progress Note ---
Date of Encounter: 06/14/17 Time of Encounter: 09:55 - Assessment and plan (1) HCAP (healthcare-associated pneumonia) Current Visit: Yes Status: Acute Assessment and plan: Chest x-ray does not show pneumonia. Pt with mild leukocytosis, improving. We will treat patient as HCAP with Vanco and cefepime. Continue 02 at pt's baseline 2L, titrate as needed to maintain sats > 92% Continue Duonebs, Symbicort. (2) Acute exacerbation of chronic obstructive airways disease Current Visit: Yes Status: Acute Assessment and plan: Mild exacerbation. Pt is the best that I have seen her in a few months. - Continue antibiotic, steroid, and bronchodilator - Continue oxygen at her baseline of 2L , titrate as needed. (3) Metastatic lung cancer (metastasis from lung to other site) Current Visit: No Status: Acute Assessment and plan: Small cell lung cancer. Chronic. Pt has appointment at [facility] on Saturday for second opinion. Qualifiers: Laterality: unspecified laterality Qualified Code(s): C34.90 - Malignant neoplasm of unspecified part of unspecified bronchus or lung (4) DVT prophylaxis Current Visit: Yes Status: Acute Assessment and plan: Heparin subcutaneously BiD, encourage pt up to chair - Time Spent With Patient Total time spent is greater than 50% in coordination of care (as documented) at patient's floor/unit and/or counseling patient: less than 15 minutes - Subjective Interval history: Pt was seen and assessed at 0955 this a.m. Pt looks the best that I have seen her recently. She states that she is feeling better. WE discussed her staying here until Saturday and leaving on Saturday so that she can make [facility] a[facility] She is adamant that she is going to make this appointment. She denies chest pain, n/v, abdominal pain, headache, blurred vision, dizziness. - Constitutional Vitals: Temp Pulse Resp BP Pulse Ox 97.9 F 106 16 132/80 99 06/14/17 15:13 06/14/17 15:13 06/14/17 15:29 06/14/17 15:13 06/14/17 15:29 General appearance: Present: cooperative, A&O X 3, no acute distress, answers questions appropriately - Head Head exam: Present: atraumatic, normal inspection, normocephalic - Eye Eye exam: Present: normal appearance, conjuntiva pink, sclera anicteric - Neck Neck exam general surgery: Present: normal inspection, supple, trachea midline. Absent: lymphadenopathy, tenderness - Respiratory Respiratory exam: Present: decreased breath sounds, CTAB. Absent: accessory muscle use, rales, respiratory distress, rhonchi, wheezes Additional comments: no wheezing - Cardiovascular Cardiovascular exam: Present: RRR, +S1, +S2. Absent: diastolic murmur, gallop, rubs, systolic murmur - GI/Abdominal GI/Abdominal exam: Present: normal bowel sounds, soft. Absent: distended, hepatomegaly, tenderness - Extremities Exam Extremities exam: Present: normal capillary refill, normal inspection, warm, radial pulses palpable and symmetrical. Absent: calf tenderness, cyanotic, pedal edema, tenderness - Neurological Exam Neurological exam: Present: alert, oriented X3, no focal deficits. Absent: facial droop, speech deficit - Skin Skin exam: Present: dry, intact, normal color, warm. Absent: rash Internal Medicine: Result - Labs CBC & Chem 7: 06/14/17 05:35 06/14/17 05:35 Labs: Short CBC 06/14/17 Range/Units 05:35 WBC 3.4 L D (4.3-11.1) K/mcL Hgb 9.4 L D (11.5-15.4) g/dL Hct 29.3 L (35.3-44.9) % Plt Count 299 (140-400) K/mcL Neutrophils # 2.7 (1.6-8.9) K/mcL BMP 06/14/17 05:35 Sodium 137 Potassium 4.3 Chloride 101 Carbon Dioxide 31 H BUN 11 Creatinine 0.47 L Glucose 219 H Calcium 8.7 Consult Discharge Plan - Plan Referrals: Ron Ward MD [Primary Care Provider] -
--- NOTE | 2017-06-14 19:29 | Electrocardiograph Report ---
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
[2017-06-14] MEDS: *HR* LORazepam 0.5 MG TABLET PO PRN (20:39)
[2017-06-15] MEDS: Cefepime HCl 2,000 MG in Water for inj. (sterile) 20 ML 20 ML IVP SCH ×3 (00:20→15:51)
[2017-06-15] MEDS: *HR* Promethazine 25 MG/ML VIAL IVP PRN ×4 (01:19→15:51)
[2017-06-15] MEDS: Ipratropium/Albuterol Neb 3 ML IH SCH ×6 (03:56→23:45)
[2017-06-15] MEDS: *HR* Heparin 5,000 UNIT/ML VIAL SQ SCH ×2 (05:35→17:55)
[2017-06-15 06:01] LABS: BUN/Creatinine Ratio 25 (6-26); Blood Urea Nitrogen 15 mg/dL (8-23); Calcium 8.5 mg/dL (8.6-10.3); Carbon Dioxide 26 mEq/L (23-29); Chloride 106 mEq/L (98-107); Glucose 98 mg/dL (70-105); Osmolality,Calculated 289 (280-300); Potassium 4.1 mEq/L (3.5-5.1); Sodium 139 mEq/L (136-145); eGFR For African Americans > 60 (> 60); eGFR For Non-African Americans > 60 (> 60)
[2017-06-15 06:23] LABS: Basophils % 0.2 %; Eosinophils % 0.1 %; Hematocrit 26.8 % (35.3-44.9); Hemoglobin 8.4 g/dL (11.5-15.4); Immature Granulocytes % 1.6 % (0-4); Lymphocytes # 1.2 K/mcL (0.6-4.6); Lymphocytes % 14.2 %; Mean Corpuscular HGB Conc 31.3 g/dL (31.6-35.5); Mean Corpuscular Hemoglobin 29.5 pg (28.0-33.3); Mean Platelet Volume 9.1 fL (9.4-12.4); Monocytes # 0.5 K/mcL (0.0-1.3); Monocytes % 6.1 %; Platelet Count 246 K/mcL (140-400); Red Blood Count 2.85 M/mcL (3.82-4.97); Red Cell Distribution Width 14.2 % (11.5-14.5); Segmented Neutrophils % 77.8 %
[2017-06-15 06:24] LABS: Neutrophils # 6.4 K/mcL (1.6-8.9)
[2017-06-15 06:54] LABS: Platelet Estimate Normal (Normal); Reactive Lymphocytes Present (Not Present)
[2017-06-15] MEDS: Nystatin SUSP 5 ML UD.LIQ PO SCH ×4 (07:29→20:52)
[2017-06-15] MEDS: clonazePAM 0.5 MG TABLET PO SCH ×2 (07:31→20:51)
[2017-06-15] MEDS: predniSONE 20 MG TABLET PO SCH (07:31)
[2017-06-15] MEDS: Ascorbic Acid 500 MG TABLET PO SCH (07:31)
[2017-06-15] MEDS: Sucralfate 1 GM TABLET PO SCH ×4 (07:31→20:51)
[2017-06-15] MEDS: Cholecalciferol (D-3) 1,000 UNIT TABLET PO SCH (07:31)
[2017-06-15] MEDS: Budesonide/Formoterol 160/4.5 MDI IH SCH ×2 (08:28→20:09)
[2017-06-15] MEDS ORDERED: Aminoglycoside Consult 1 EACH MC ONE (10:50)
--- NOTE | 2017-06-15 16:07 | Internal Med Progress Note ---
Date of Encounter: 06/15/17 Time of Encounter: 09:45 - Assessment and plan (1) HCAP (healthcare-associated pneumonia) Current Visit: Yes Status: Acute Assessment and plan: Chest x-ray shows pneumonia. Worsening consolidation in left lung base. Pt with mild leukocytosis, improving. We will treat patient as HCAP with Vanco and cefepime. Continue 02 at pt's baseline 2L, titrate as needed to maintain sats > 92% Continue Duonebs, Symbicort. Chest X-Ray 06/13/17 14:59 IMPRESSION: 1. Worsening consolidation in the left lung base, concerning for pneumonia. 2. The right hilar mass noted on the previous CT of the chest is not well seen on the current exam. 3. Stable scarring/atelectasis in the right lung base. 4. Increased pulmonary vascular congestion. D/ / 06/13/2017 15:49:06 Blu [facility] Interpreting Provider: Blu Avendano MD (2) Acute exacerbation of chronic obstructive airways disease Current Visit: Yes Status: Acute Assessment and plan: Mild exacerbation complicated by HCAP. Continue antibiotic, steroid, and bronchodilator Continue oxygen at her baseline of 2L , titrate as needed. Pt is requiring 4 liters today, titrate as needed. (3) Metastatic lung cancer (metastasis from lung to other site) Current Visit: Yes Status: Chronic Assessment and plan: Small cell lung cancer. Chronic. Pt has appointment at [facility] on Saturday for second opinion. [facility] made the referral for a second opinion. Qualifiers: Laterality: unspecified laterality Qualified Code(s): C34.90 - Malignant neoplasm of unspecified part of unspecified bronchus or lung (4) DVT prophylaxis Current Visit: Yes Status: Acute Assessment and plan: Heparin SQ twice daily, encourage pt up to chair - Time Spent With Patient Total time spent is greater than 50% in coordination of care (as documented) at patient's floor/unit and/or counseling patient: less than 15 minutes - Subjective Interval history: Pt was seen and assessed at 0945 this a.m. Pt continues to state that she is feeling better. She remains adamant that she is going to make her appointment at [facility] on Saturday a.m. She denies chest pain, n/v, abdominal pain, headache , blurred vision, dizziness. - Constitutional Vitals: Temp Pulse Resp BP Pulse Ox 98.2 F 114 16 148/90 95 06/15/17 15:44 06/15/17 15:44 06/15/17 15:44 06/15/17 15:44 06/15/17 15:44 General appearance: Present: cooperative, A&O X 3, pleasant, no acute distress, answers questions appropriately - Head Head exam: Present: atraumatic, normal inspection, normocephalic - Eye Eye exam: Present: normal appearance, conjuntiva pink, sclera anicteric - Neck Neck exam general surgery: Present: supple, trachea midline. Absent: lymphadenopathy - Respiratory Respiratory exam: Present: CTAB, respiratory distress, rhonchi, wheezes. Absent : accessory muscle use, rales Additional comments: mild respiratory distress, normal for pt. Faint wheezing and ronchi heard in anterior upper lung putnam. - Cardiovascular Cardiovascular exam: Present: RRR, +S1, +S2. Absent: diastolic murmur, gallop, rubs, systolic murmur - GI/Abdominal GI/Abdominal exam: Present: normal bowel sounds, soft. Absent: distended, tenderness - Extremities Exam Extremities exam: Present: normal capillary refill, normal inspection, warm, radial pulses palpable and symmetrical. Absent: calf tenderness, cyanotic, mottling, pedal edema - Neurological Exam Neurological exam: Present: alert, oriented X3, no focal deficits. Absent: facial droop, speech deficit - Skin Skin exam: Present: dry, intact, normal color, warm. Absent: rash Internal Medicine: Result - Labs CBC & Chem 7: 06/15/17 06:13 06/15/17 04:43 Labs: Short CBC 06/15/17 Range/Units 06:13 WBC 8.2 D (4.3-11.1) K/mcL Hgb 8.4 L (11.5-15.4) g/dL Hct 26.8 L (35.3-44.9) % Plt Count 246 (140-400) K/mcL Neutrophils # 6.4 (1.6-8.9) K/mcL BMP 06/15/17 04:43 Sodium 139 Potassium 4.1 Chloride 106 Carbon Dioxide 26 BUN 15 Creatinine 0.60 Glucose 98 Calcium 8.5 L Consult Discharge Plan - Plan Referrals: Ron Ward MD [Primary Care Provider] -
[2017-06-15] MEDS: *HR* OxyCODONE/APAP 7.5/325 TABLET PO PRN (18:16)
[2017-06-15] MEDS ORDERED: *HR* Promethazine 25 MG/ML VIAL IM PRN (18:17)
[2017-06-15] MEDS: traZODone 50 MG TABLET PO SCH (20:50)
[2017-06-15] MEDS: *HR* LORazepam 0.5 MG TABLET PO PRN (20:51)
[2017-06-15] MEDS ORDERED: Vancomycin Oral Soln 250 MG/5 ML UDC PO SCH (23:45)
[2017-06-16] MEDS: Cefdinir 300 MG CAPSULE PO SCH ×2 (00:16→08:09)
[2017-06-16] MEDS: Ipratropium/Albuterol Neb 3 ML IH SCH ×2 (04:01→08:28)
[2017-06-16] MEDS: *HR* Heparin 5,000 UNIT/ML VIAL SQ SCH (05:37)
[2017-06-16] MEDS: Sucralfate 1 GM TABLET PO SCH (06:27)
[2017-06-16 06:37] LABS: Hematocrit 27.1 % (35.3-44.9); Hemoglobin 8.6 g/dL (11.5-15.4); Lymphocytes # 1.3 K/mcL (0.6-4.6); Mean Corpuscular HGB Conc 31.7 g/dL (31.6-35.5); Mean Corpuscular Hemoglobin 29.5 pg (28.0-33.3); Mean Corpuscular Volume 92.8 fL (83.0-100.0); Mean Platelet Volume 9.2 fL (9.4-12.4); Nucleated Red Blood Cells 0.2 /100 WBC (0); Platelet Count 288 K/mcL (140-400); Red Blood Count 2.92 M/mcL (3.82-4.97); Red Cell Distribution Width 14.1 % (11.5-14.5)
[2017-06-16 06:43] LABS: BUN/Creatinine Ratio 28 (6-26); Blood Urea Nitrogen 11 mg/dL (8-23); Calcium 8.5 mg/dL (8.6-10.3); Carbon Dioxide 34 mEq/L (23-29); Chloride 99 mEq/L (98-107); Glucose 106 mg/dL (70-105); Osmolality,Calculated 284 (280-300); Potassium 3.8 mEq/L (3.5-5.1); Sodium 137 mEq/L (136-145); eGFR For African Americans > 60 (> 60); eGFR For Non-African Americans > 60 (> 60)
[2017-06-16 07:11] LABS: Monocytes # 0.3 K/mcL (0.0-1.3); Neutrophils # 6.9 K/mcL (1.6-8.9); Platelet Estimate Normal (Normal)
[2017-06-16 07:19] VITALS: BP 141/83
[2017-06-16] MEDS: Ascorbic Acid 500 MG TABLET PO SCH (08:07)
[2017-06-16] MEDS: clonazePAM 0.5 MG TABLET PO SCH (08:07)
[2017-06-16] MEDS: predniSONE 20 MG TABLET PO SCH (08:09)
[2017-06-16] MEDS: Cholecalciferol (D-3) 1,000 UNIT TABLET PO SCH (08:10)
--- NOTE | 2017-06-16 08:12 | Discharge Summary ---
- NOTES TO OUTPATIENT PROVIDER Notes to Outpatient Provider: Pt has been admitted for HCAP/COPD exacerbation. She actually was better than I have seen her in a long time. She was treated with IV Vanco and Cefepime x 2 days, she lost IV access several times and was given po Omnicef and Levaquin with rx for discharge. Domi was insistent that she was leaving today so that she could make it to her appointment at [facility] tomorrow morning. Date of Encounter: 06/16/17 Time of Encounter: 09:45 - Discharge Diagnosis (1) HCAP (healthcare-associated pneumonia) Priority: Primary Status: Acute Assessment and Plan: Chest x-ray shows pneumonia. Pt with no leukocytosis, fever. Pt has tachycardia, which is normal for her. No signs of SIRS or sepsis. Pt will be sent home with rx for Levaquin 750mg po x 10 days and Omnicef 300mg po BID x 10 days. Continue 02 at pt's baseline 2L, titrate as needed to maintain sats > 92% Continue Duonebs, Symbicort and other home medications. Pt is insistent that she go home today, she has a follow up appointment with [facility] tomorrow for a second opinion about her treatment options for lung cancer with metastases. Chest X-Ray 06/13/17 14:59 IMPRESSION: 1. Worsening consolidation in the left lung base, concerning for pneumonia. 2. The right hilar mass noted on the previous CT of the chest is not well seen on the current exam. 3. Stable scarring/atelectasis in the right lung base. 4. Increased pulmonary vascular congestion. D/ / 06/13/2017 15:49:06 Blu Avendano MD / [facility] Interpreting Provider: Blu Avendano MD (2) Acute exacerbation of chronic obstructive airways disease Priority: Secondary Status: Acute Assessment and Plan: Mild exacerbation complicated by HCAP. Continue po antibiotic, po steroid, and bronchodilator Continue oxygen at her baseline of 2L , titrate as needed. Pt is requiring 2 liters today, at her baseline demand, titrate as needed. (3) Metastatic lung cancer (metastasis from lung to other site) Priority: Secondary Status: Chronic Assessment and Plan: Small cell lung cancer. Chronic. Pt has appointment at [facility] on Saturday for second opinion. [facility] made the referral for a second opinion. Qualifiers: Laterality: unspecified laterality Qualified Code(s): C34.90 - Malignant neoplasm of unspecified part of unspecified bronchus or lung (4) DVT prophylaxis Priority: Secondary Status: Acute Assessment and Plan: Heparin SQ twice daily Hospital course: Ms. Keenan is a 61 year old female with PMH of current small cell lung ca with metastases to liver, bone, and brain, COPD, HTN, pathologic Tspine compression fractures, chronic anemia, recurrent pneumonia, and chronic pain. She presented to the ED with SOB and was admitted for HCAP. Pt was treated with IV Vancomycin and Cefepime. Pt has limited IV access and nursing from several units were unable to obtain IV access, pt was switched to Omnicef, and this morning po Levaquin 750mg. Pt is actually the best that I have seen her in several months. She is at her normal baseline 02 demand, is at her normal respiratory exertion level without distress, her lungs are clear and diminished. She is still using Duonebs every 2 hours. Pt has been told by [facility] that there are no more treatment options for her at this time and have recommended Hospice. Pt is not ready for that yet and would like to spend as much time as she can with her grandson and . She has an appointment at 0800 in the morning at [facility] for a second opinion and she is adamant that she is discharged today so that she makes it to that appointment. She will be discharged with long steroid taper, Guaifenesin 1200mg po BID, Levaquin 750mg po x 10 days, and Omnicef 300mg po BID x 7 days. Her labs and vitals are stable. Pt is ready for discharge. Discharge discussed with: patient, family Time spent discussing smoking cessation with patient: 3 to 10 minutes - Time Spent with Patient Total time spent providing and/or coordinating discharge services: Less than 30 minutes - Discharge Medications Prescriptions: Cefdinir [Omnicef] 300 mg PO BID #14 capsule GuaiFENesin ER [Mucinex] 1,200 mg PO BID PRN #60 tbbp.12hr PRN Reason: Cough levoFLOXacin [Levaquin] 750 mg PO DAILY #10 tablet predniSONE [PredniSONE] 10 mg PO DAILY #50 tablet Home Medications: Trazodone HCl 200 mg PO HS 02/15/16 [History] Albuterol Sulfate [Albuterol Inhaler] 2 puff IH Q6H PRN 10/14/16 [History] Budesonide/Formoterol 160/4.5 [Symbicort 160/4.5] 2 puff IH BIDR 10/14/16 [ History] Oxygen 2 l NS AD 10/14/16 [History] Ascorbate Calcium [Vitamin C] 500 mg PO DAILY 12/14/16 [History] Calcium Carbonate/Vitamin D3 [Calcium 500 + Vit D Caplet] 2 each PO DAILY #60 tablet 12/26/16 [Rx] Cholecalciferol (D-3) [Vitamin D] 5,000 unit PO DAILY 02/02/17 [History] LORazepam [Ativan] 0.5 mg PO BID PRN 7 Days #14 tablet 05/23/17 [Rx] Omeprazole [PriLOSEC] 20 mg PO DAILY@0630 #30 capsule. 06/03/17 [Rx] Albuterol Neb [Proventil Neb] 2.5 mg IH Q2H PRN #120 inhsol 06/08/17 [Rx] Buspirone HCl [Buspar] 15 mg PO BID #60 tablet 06/08/17 [Rx] DULoxetine [Cymbalta] 30 mg PO HS #30 capsule. 06/08/17 [Rx] Ipratropium/Albuterol Neb [Duoneb] 3 ml IH [id number] #160 inhsol 06/08/17 [Rx] Promethazine [Phenergan] 12.5 mg PO ACHS 20 Days #40 tablet 06/08/17 [Rx] Metoprolol [Lopressor] 12.5 mg PO BID MDD SEE NOTE 06/13/17 [History] Nystatin [Nystatin Suspension] 1 ml PO QID 06/13/17 [History] Potassium Chloride [K-Tab ER] 20 meq PO DAILY 06/13/17 [History] Sucralfate [Carafate] 10 ml PO BID 06/13/17 [History] clonazePAM [Klonopin] 0.5 mg PO BID 06/13/17 [History] Calcium Carbonate [Tums] 1,000 mg PO TID tab.chew 06/16/17 [Rx] Cefdinir [Omnicef] 300 mg PO BID #14 capsule 06/16/17 [Rx] GuaiFENesin ER [Mucinex] 1,200 mg PO BID PRN #60 tbbp.12hr 06/16/17 [Rx] levoFLOXacin [Levaquin] 750 mg PO DAILY #10 tablet 06/16/17 [Rx] predniSONE [PredniSONE] 10 mg PO DAILY #50 tablet 06/16/17 [Rx] Allergies/Adverse Reactions: 3 Allergy/AdvReac Type Severity Reaction Status Date / Time No Known Allergies Allergy Verified 06/13/17 17:07 Date of admission: 06/13/17 21:45 Primary care physician: Ron Ward MD Discharging clinician: Jacki Schwab Anticipated date of discharge: 06/16/17 - Constitutional Vitals: Temp Pulse Resp BP Pulse Ox 98.1 F 114 17 141/83 94 06/16/17 07:18 06/16/17 07:18 06/16/17 07:18 06/16/17 07:18 06/16/17 07:18 General appearance: Present: cooperative, A&O X 3, pleasant, no acute distress, answers questions appropriately - Head Head exam: Present: atraumatic, normal inspection, normocephalic - Eye Eye exam: Present: normal appearance, conjuntiva pink, sclera anicteric - Neck Neck exam general surgery: Present: supple, trachea midline. Absent: lymphadenopathy, tenderness - Respiratory Respiratory exam: Present: decreased breath sounds, CTAB. Absent: accessory muscle use, chest wall tenderness, rales, respiratory distress, rhonchi, wheezes - Cardiovascular Cardiovascular exam: Present: RRR, +S1, +S2. Absent: diastolic murmur, gallop, rubs, systolic murmur - GI/Abdominal GI/Abdominal exam: Present: normal bowel sounds, soft. Absent: distended, hepatomegaly, tenderness - Extremities Exam Extremities exam: Present: warm, radial pulses palpable and symmetrical. Absent : calf tenderness, cyanotic, pedal edema, tenderness - Neurological Exam Neurological exam: Present: alert, oriented X3, no focal deficits. Absent: facial droop, speech deficit - Skin Skin exam: Present: dry, intact, normal color, warm. Absent: rash - Patient Status Disposition: Home, Self-Care Condition: Fair Functional capacity at discharge: uses cane/walker Overall status at discharge: patient is progressing back to baseline - Discharge Instructions Follow Up With: Ron Ward MD [Primary Care Provider] - Additional Instructions: Please follow up with your PCP in the next 3-5 days. Return to the ER immediately if you have a fever, chills, are coughing up blood , if you are more short of breath than normal, or for any other problems or concern, or if your condition worsens. Take your medications as directed and return to your normal diet and activities as tolerated. - Diet and Activity Activity: increase activity as tolerated Diet: advance to your usual diet
[2017-06-16] MEDS: Budesonide/Formoterol 160/4.5 MDI IH SCH (08:27)
[2017-06-16] MEDS ORDERED: levoFLOXacin 750 MG TABLET PO SCH (09:00)
[2017-06-16] MEDS: Nystatin SUSP 5 ML UD.LIQ PO SCH (10:19)
== END 2017-06-16 10:51 | disposition home or self-care (01) | DRG 190 ==
LOC: EMEROO 14:07 → 3BNU 14:07
PROVIDERS: ADMIT Internal Medicine; ATTEND Student in an Organized Health Care Education/Training Program

== ENCOUNTER 2017-06-21 15:23 | Inpatient (IN) ==
[2017-06-21] MEDS ORDERED: Ipratropium/Albuterol Neb 3 ML ONE (15:33)
[2017-06-21] MEDS ORDERED: Ipratropium/Albuterol Neb 3 ML IH ONE (15:36)
[2017-06-21] MEDS ORDERED: Piperacillin/Tazobactam 3.375 GM in 0.9 % Sodium Chloride Mini Bag 100 ML IVPB ONE (15:42)
[2017-06-21] MEDS ORDERED: Levofloxacin 750 MG/150 ML 750 MG/150 ML BAG IVPB ONE (15:43)
[2017-06-21] MEDS ORDERED: methylPREDNISolone 125 MG/2 ML VIAL IVP ONE (15:46)
[2017-06-21] MEDS ORDERED: 0.9 % Sodium Chloride 1,000 ML IVC ONE (15:51)
[2017-06-21] MEDS ORDERED: Aspirin 81 MG TAB.CHEW PO STA (15:52)
--- NOTE | 2017-06-21 15:54 | Emergency Department Note ---
Disposition Clinical Impression: COPD exacerbation Disposition: Admitted As Inpatient Condition: Fair Forms: ED Satisfaction Letter Time of Disposition: 17:58 SOB HPI - General Chief Complaint: ED Shortness of Breath/Dyspnea Stated Complaint: SOB Time Seen by Provider: 06/21/17 15:25 Source: patient Limitations: no limitations Nursing Notes Reviewed: Yes Vital Signs Reviewed: Yes - History of Present Illness Ms. 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 Patient has last hopsitalized for HCAP and COPD exacerbation on 06/13/17 and was discharged on 06/16/17 with PO Omnicef and Levaquin and an extended steroid tapering schedule. She admits to SOB today. O2 sat was 92% on 3 L of O2 at home. She admits to a worsening productive cough with green sputum. She admits to nausea and vomiting but denies any hematemesis. She admits to a subjective fever and chills. She denies any chest pain. She denies any abdominal pain. Denies any constipation , diarrhea, hematochezia, or melena. Admits to ongoing dysuria. Denies any hematuria. - Related Data Home Medications Medication Instructions Recorded Confirmed Trazodone HCl 200 mg PO HS 02/15/16 06/18/17 Albuterol Sulfate [Albuterol 2 puff IH Q6H PRN 10/14/16 06/18/17 Inhaler] Budesonide/Formoterol 160/4.5 2 puff IH BIDR 10/14/16 06/18/17 [Symbicort 160/4.5] Oxygen 2 l NS AD 10/14/16 06/18/17 Metoprolol [Lopressor] 12.5 mg PO BID PRN MDD SEE NOTE 06/13/17 06/18/17 Potassium Chloride [K-Tab ER] 20 meq PO DAILY 06/13/17 06/18/17 Sucralfate [Carafate] 10 ml PO BID 06/13/17 06/18/17 clonazePAM [Klonopin] 0.5 mg PO BID 06/13/17 06/18/17 Previous Rx's Medication Instructions Recorded Calcium Carbonate/Vitamin D3 2 each PO DAILY #60 tablet 11/08/17 [Calcium 500 + Vit D Caplet] LORazepam [Ativan] 0.5 mg PO BID PRN 7 Days #14 tablet 05/23/17 Omeprazole [PriLOSEC] 20 mg PO DAILY@0630 #30 capsule. 06/03/17 Albuterol Neb [Proventil Neb] 2.5 mg IH Q2H PRN #120 inhsol 06/08/17 Buspirone HCl [Buspar] 15 mg PO BID #60 tablet 06/08/17 DULoxetine [Cymbalta] 30 mg PO HS #30 capsule. 06/08/17 Ipratropium/Albuterol Neb [Duoneb] 3 ml IH [id number] #160 inhsol 06/08/17 Promethazine [Phenergan] 12.5 mg PO ACHS 20 Days #40 tablet 06/08/17 Calcium Carbonate [Tums] 1,000 mg PO TID tab.chew 06/16/17 Cefdinir [Omnicef] 300 mg PO BID #14 capsule 06/16/17 GuaiFENesin ER [Mucinex] 1,200 mg PO BID PRN #60 tbbp.12hr 06/16/17 levoFLOXacin [Levaquin] 750 mg PO DAILY #10 tablet 06/16/17 predniSONE [PredniSONE] 10 mg PO DAILY #50 tablet 06/16/17 LORazepam [Ativan] 0.5 mg PO TID 30 Days #90 tablet 06/18/17 OxyCODONE Immed Rel [Roxicodone 10 10 mg PO TID PRN 30 Days #90 tab 06/18/17 MG] Prochlorperazine Maleate 10 mg PO Q8HR #90 tablet 06/18/17 [Compazine] Walker [Ultra-Light Rollator] 1 each AD #1 each 06/18/17 predniSONE [Prednisone] 10 mg PO DAILY #30 tablet 06/18/17 Allergies Allergy/AdvReac Type Severity Reaction Status Date / Time No Known Allergies Allergy Verified 06/13/17 17:07 Constitutional: Reports: fever, chills Cardiovascular: Denies: chest pain, palpitations, edema Respiratory: Reports: cough, dyspnea, wheezes, sputum production. Denies: hemoptysis, stridor Gastrointestinal: Reports: nausea, vomiting. Denies: abdominal pain, diarrhea, constipation, hematemesis, melena, hematochezia Genitourinary: Reports: dysuria. Denies: hematuria, discharge Musculoskeletal: Reports: myalgia Past Medical History - Past Medical History Medical history: Reports: cancer, COPD, hypertension Surgical history: Reports: hysterectomy Psychiatric history: Reports: anxiety, depression MEDICAL CHEMIST history: Reports: no MEDICAL CHEMIST history - Social History Smoking Status: Former smoker Smokeless Tobacco Status: No Alcohol use: Reports: none Drug use: Reports: none Physical Exam - General Limitations: no limitations General appearance: alert - Chest Chest inspection: Present: symmetric chest wall rise. Absent: tenderness - Respiratory Respiratory exam: Present: respiratory distress, wheezes (B/L in anterior and posterior ), accessory muscle use. Absent: stridor - Cardiovascular Cardiovascular exam: Present: irregular rhythm - Abdominal Exam Abdominal exam: Present: soft, Non-Tender, normal bowel sounds. Absent: tenderness, distention, guarding, rebound, rigidity - Extremities Exam Extremities exam: Present: normal inspection, full ROM. Absent: tenderness, pedal edema, joint swelling, calf tenderness - Skin Skin exam: Present: warm, dry, intact, normal color. Absent: cyanosis Course Course Narrative: Patient has extensive history of recurrent pneumonia and COPD exacerbation. She presents today with wheezing bilaterally, respiratory distress, and low O2 saturation. I will go ahead and start patient on breathing treatments and put her on oxygen 3 L. We will also give dose of Solu-Medrol. We will order chest x-ray to evaluate progress of PNA from last week's discharge. We will order blood cultures. ECG shows sinus tachycardia with no acute ischemic changes when compared to previous EKG. Troponin pending. We will order UA to evaluate for UTI due to history of recurrent UTIs and patient complaining of dysuria. Update 1751: EKG shows sinus tachycardia with no acute extremity make changes when compared to prior EKG. troponin levels were negative. CXR shows minimal acute left basilar pleural and parenchymal disease. Patient has extensive wheezing on exam and O2 of 93. Spoke to hopsitalist Dr. Sanchez who agreed to admit patient for COPD exacerbation with possible superimposed PNA. Chest X-Ray 06/21/17 15:45 IMPRESSION: Apical predominant emphysema with chronically increased lung markings. Minimal acute left basilar pleural and parenchymal disease. D/ / Carlos Patel MD / Carlos Patel MD Interpreting Provider: Carlos Patel MD Vital Signs Temperature 99.0 F 06/21/17 15:26 Pulse Rate 134 06/21/17 15:26 Respiratory Rate 22 06/21/17 15:26 Blood Pressure 132/81 06/21/17 15:26 O2 Sat by Pulse Oximetry 99 06/21/17 15:26 Temperature 99.0 F 06/21/17 15:26 Pulse Rate 134 06/21/17 15:26 Respiratory Rate 24 06/21/17 15:40 Blood Pressure 132/81 06/21/17 15:26 O2 Sat by Pulse Oximetry 93 06/21/17 15:40 Oxygen Delivery Oxygen Delivery Aerosol Mask Shortness of Breath/Dyspnea - Lab Data Result diagrams: 06/21/17 15:55 06/21/17 15:55 Lab Results 06/21/17 06/21/17 Range/Units 15:55 15:55 WBC 8.1 (4.3-11.1) K/mcL RBC 3.42 L (3.82-4.97) M/mcL Hgb 10.1 L D (11.5-15.4) g/dL Hct 31.3 L (35.3-44.9) % MCV 91.5 (83.0-100.0) fL MCH 29.5 (28.0-33.3) pg MCHC 32.3 (31.6-35.5) g/dL RDW 14.5 (11.5-14.5) % Plt Count 337 (140-400) K/mcL MPV 8.8 L (9.4-12.4) fL Immature Gran % 2.7 (0-4) % Seg Neutrophils % 72.8 % Lymphocytes % 16.7 % Monocytes % 7.1 % Eosinophils % 0.1 % Basophils % 0.6 % Neutrophils # 5.9 (1.6-8.9) K/mcL Lymphocytes # 1.4 (0.6-4.6) K/mcL Monocytes # 0.6 (0.0-1.3) K/mcL Eosinophils # 0.0 (0.0-0.6) K/mcL Basophils # 0.1 (0.0-0.2) K/mcL Sodium 134 L (136-145) mEq/L Potassium 3.7 (3.5-5.1) mEq/L Chloride 96 L (98-107) mEq/L Carbon Dioxide 32 H (23-29) mEq/L BUN 9 (8-23) mg/dL Creatinine 0.45 L (0.60-1.20) mg/dL Est GFR ( Amer) > 60 (> 60) Est GFR (Non-Af Amer) > 60 (> 60) BUN/Creatinine Ratio 20 (6-26) Glucose 92 (70-105) mg/dL Calculated Osmolality 276 L (280-300) Calcium 9.1 (8.6-10.3) mg/dL Troponin I < 0.03 (< 0.04) ng/mL - EKG Data EKG shows normal: Reports: sinus rhythm, intervals, QRS complexes, ST-T waves. Denies: axis Rate: Reports: tachycardia [place]/QRS: Reports: left axis deviation Attestation Statement - Attestation Attestation: I, Jerod Barfield DO, examined this patient [id number] and my medical decision-making was reviewed with Gab Foreman PGY-1, Resident Physician. I agree with the documented findings, disposition and treatment plan as described except to the extent set forth below. Please see my progress notes for details.
[2017-06-21 16:19] LABS: Basophils # 0.1 K/mcL (0.0-0.2); Basophils % 0.6 %; Eosinophils % 0.1 %; Hematocrit 31.3 % (35.3-44.9); Hemoglobin 10.1 g/dL (11.5-15.4); Immature Granulocytes % 2.7 % (0-4); Lymphocytes # 1.4 K/mcL (0.6-4.6); Lymphocytes % 16.7 %; Mean Corpuscular HGB Conc 32.3 g/dL (31.6-35.5); Mean Corpuscular Hemoglobin 29.5 pg (28.0-33.3); Mean Corpuscular Volume 91.5 fL (83.0-100.0); Mean Platelet Volume 8.8 fL (9.4-12.4); Monocytes # 0.6 K/mcL (0.0-1.3); Monocytes % 7.1 %; Neutrophils # 5.9 K/mcL (1.6-8.9); Platelet Count 337 K/mcL (140-400); Red Blood Count 3.42 M/mcL (3.82-4.97); Red Cell Distribution Width 14.5 % (11.5-14.5); Segmented Neutrophils % 72.8 %
[2017-06-21 16:28] LABS: BUN/Creatinine Ratio 20 (6-26); Blood Urea Nitrogen 9 mg/dL (8-23); Calcium 9.1 mg/dL (8.6-10.3); Carbon Dioxide 32 mEq/L (23-29); Chloride 96 mEq/L (98-107); Glucose 92 mg/dL (70-105); Osmolality,Calculated 276 (280-300); Potassium 3.7 mEq/L (3.5-5.1); Sodium 134 mEq/L (136-145); eGFR For African Americans > 60 (> 60); eGFR For Non-African Americans > 60 (> 60)
[2017-06-21 16:36] LABS: Troponin I < 0.03 ng/mL (< 0.04)
--- NOTE | 2017-06-21 17:47 | Emergency Department Note ---
Disposition Clinical Impression: COPD exacerbation, Pneumonia Disposition: Admitted As Inpatient Condition: Fair Time of Disposition: 20:18 General Adult HPI - General Chief complaint: ED Shortness of Breath/Dyspnea Stated complaint: SOB Time Seen by Provider: 06/21/17 15:25 Source: patient Limitations: no limitations - History of Present Illness Pain Scale: 0 - Related Data Home Medications Medication Instructions Recorded Confirmed Trazodone HCl 200 mg PO HS 02/15/16 06/18/17 Albuterol Sulfate [Albuterol 2 puff IH Q6H PRN 10/14/16 06/18/17 Inhaler] Budesonide/Formoterol 160/4.5 2 puff IH BIDR 10/14/16 06/18/17 [Symbicort 160/4.5] Oxygen 2 l NS AD 10/14/16 06/18/17 Metoprolol [Lopressor] 12.5 mg PO BID PRN MDD SEE NOTE 06/13/17 06/18/17 Potassium Chloride [K-Tab ER] 20 meq PO DAILY 06/13/17 06/18/17 Sucralfate [Carafate] 10 ml PO BID 06/13/17 06/18/17 clonazePAM [Klonopin] 0.5 mg PO BID 06/13/17 06/18/17 Melatonin [Melatin] 3 mg PO HS 06/21/17 06/21/17 Previous Rx's Medication Instructions Recorded Calcium Carbonate/Vitamin D3 2 each PO DAILY #60 tablet 12/26/16 [Calcium 500 + Vit D Caplet] LORazepam [Ativan] 0.5 mg PO BID PRN 7 Days #14 tablet 05/23/17 Omeprazole [PriLOSEC] 20 mg PO DAILY@0630 #30 capsule. 06/03/17 Albuterol Neb [Proventil Neb] 2.5 mg IH Q2H PRN #120 inhsol 06/08/17 Buspirone HCl [Buspar] 15 mg PO BID #60 tablet 06/08/17 DULoxetine [Cymbalta] 30 mg PO HS #30 capsule. 06/08/17 Ipratropium/Albuterol Neb [Duoneb] 3 ml IH [id number] #160 inhsol 06/08/17 Promethazine [Phenergan] 12.5 mg PO ACHS 20 Days #40 tablet 06/08/17 Calcium Carbonate [Tums] 1,000 mg PO TID tab.chew 06/16/17 Cefdinir [Omnicef] 300 mg PO BID #14 capsule 06/16/17 GuaiFENesin ER [Mucinex] 1,200 mg PO BID PRN #60 tbbp.12hr 06/16/17 levoFLOXacin [Levaquin] 750 mg PO DAILY #10 tablet 06/16/17 OxyCODONE Immed Rel [Roxicodone 10 10 mg PO TID PRN 30 Days #90 tab 06/18/17 MG] Prochlorperazine Maleate 10 mg PO Q8HR #90 tablet 06/18/17 [Compazine] Allergies Allergy/AdvReac Type Severity Reaction Status Date / Time No Known Allergies Allergy Verified 06/13/17 17:07 Constitutional: Reports: fever, chills Cardiovascular: Denies: chest pain, palpitations, edema Respiratory: Reports: cough, dyspnea, wheezes, sputum production. Denies: hemoptysis, stridor Gastrointestinal: Reports: nausea, vomiting. Denies: abdominal pain, diarrhea, constipation, hematemesis, melena, hematochezia Genitourinary: Reports: dysuria. Denies: hematuria, discharge Musculoskeletal: Reports: myalgia Past Medical History - Past Medical History Medical history: Reports: cancer, COPD, hypertension Surgical history: Reports: hysterectomy Psychiatric history: Reports: anxiety, depression BLUE LINE OPERATOR history: Reports: no BLUE LINE OPERATOR history - Social History Smoking Status: Former smoker Smokeless Tobacco Status: No Alcohol use: Reports: none Drug use: Reports: none Physical Exam - General Limitations: no limitations General appearance: alert Course Vital Signs Temperature 99.0 F 06/21/17 15:26 Pulse Rate 134 06/21/17 15:26 Respiratory Rate 22 06/21/17 15:26 Blood Pressure 132/81 06/21/17 15:26 O2 Sat by Pulse Oximetry 99 06/21/17 15:26 Temperature 98.8 F 06/21/17 19:12 Pulse Rate 11 06/21/17 19:12 Respiratory Rate 20 06/21/17 19:12 Blood Pressure 102/65 06/21/17 19:12 O2 Sat by Pulse Oximetry 90 06/21/17 19:12 Oxygen Delivery Oxygen Delivery Room Air Medical Decision Making - Lab Data Result diagrams: 06/21/17 15:55 06/21/17 15:55 Lab Results 06/21/17 06/21/17 06/21/17 Range/Units 15:55 15:55 18:50 WBC 8.1 (4.3-11.1) K/mcL RBC 3.42 L (3.82-4.97) M/mcL Hgb 10.1 L D (11.5-15.4) g/dL Hct 31.3 L (35.3-44.9) % MCV 91.5 (83.0-100.0) fL MCH 29.5 (28.0-33.3) pg MCHC 32.3 (31.6-35.5) g/dL RDW 14.5 (11.5-14.5) % Plt Count 337 (140-400) K/mcL MPV 8.8 L (9.4-12.4) fL Immature Gran % 2.7 (0-4) % Seg Neutrophils % 72.8 % Lymphocytes % 16.7 % Monocytes % 7.1 % Eosinophils % 0.1 % Basophils % 0.6 % Neutrophils # 5.9 (1.6-8.9) K/mcL Lymphocytes # 1.4 (0.6-4.6) K/mcL Monocytes # 0.6 (0.0-1.3) K/mcL Eosinophils # 0.0 (0.0-0.6) K/mcL Basophils # 0.1 (0.0-0.2) K/mcL Sodium 134 L (136-145) mEq/L Potassium 3.7 (3.5-5.1) mEq/L Chloride 96 L (98-107) mEq/L Carbon Dioxide 32 H (23-29) mEq/L BUN 9 (8-23) mg/dL Creatinine 0.45 L (0.60-1.20) mg/dL Est GFR ( Amer) > 60 (> 60) Est GFR (Non-Af Amer) > 60 (> 60) BUN/Creatinine Ratio 20 (6-26) Glucose 92 (70-105) mg/dL Calculated Osmolality 276 L (280-300) Calcium 9.1 (8.6-10.3) mg/dL Troponin I < 0.03 (< 0.04) ng/mL Urine Color Yellow (Yellow) Urine Clarity Clear (Clear) Urine pH 6.5 (5.0-8.0) pH Units Ur Specific [place] 1.021 (1.010-1.025) Urine Protein Negative (Neg-Trace) mg/dL Urine Glucose (UA) Normal (Normal) mg/dL Urine Ketones Negative (Negative) mg/dL Urine Blood Negative (Negative) Urine Nitrite Negative (Negative) Urine Bilirubin Negative (Negative) Urine Urobilinogen Normal (Normal) mg/dL Ur Leukocyte Esterase Small H (Negative) Urine Microscopic RBC 0-3 (0-3) per hpf Urine Microscopic WBC 5-15 H (0-3) per hpf Ur Squamous Epith Cells Many H (None-Few) per lpf Urine Bacteria None Seen (None-Few) per hpf Hyaline Casts None Seen (None-Few) per lpf Ur Culture Indicated? NO. A (NO) Attestation Statement - Attestation Attestation: I, Jerod Barfield DO, examined this patient [id number] and my medical decision-making was reviewed with Gab Foreman PGY-1, Resident Physician. I agree with the documented findings, disposition and treatment plan as described except to the extent set forth below. Please see my progress notes for details. 61-year-old female presents emergency room for evaluation of shortness of breath productive sputum and cough. Patient was just discharged from the hospital within the last week for similar issues. She does use oxygen at home she has failed outpatient management. She denies any chest pain fevers chills nausea vomiting or diarrhea. Denies any headache or vision change. She does have congestion and shortness of breath. Patient will have screening evaluation completed chest x-ray EKG labs including CBC chemistry troponin and BNP. Patient will have lactic acid as well as blood cultures collected along with IV antibiotic started this point secondary to the pulmonary presentation issue. Patient also have steroids and breathing treatments provided at this point. Disposition will most likely be admission to hospital for definitive management. Physical exam does have coarse wheezing noted bilaterally. Patient does have intermittent productive sputum. Her heart is regular abdomen is soft. Patient has been seen by myself as well as many other physicians at this facility over the last year and this seems to be atypical presentation this time. Tachycardia was noted on presentation consistent with her increased work of breathing. Disposition pending treatment course. See detailed documentation of the physical exam, medical intervention, medical decision- making and disposition in the resident physician's note. Patient will most likely need admission 1845 Patient is otherwise stable at this point. Anabiotic started for what appears to be pneumonia based on chest x-ray. Patient is otherwise clinically stable. Admission process is completed. Hospitals contacted and no other recommendations at this time. Definitive management will be completed in the hospital setting at this point.
[2017-06-21 19:04] LABS: Bilirubin,Urine Negative (Negative); Blood,Urine Negative (Negative); Clarity,Urine Clear (Clear); Color,Urine Yellow (Yellow); Glucose,Urine (UA) Normal (Normal); Ketones,Urine Negative (Negative); Leukocyte Esterase,Urine Small (Negative); Nitrite,Urine Negative (Negative); PH,Urine 6.5 pH Units (5.0-8.0); Protein,Urine Negative (Neg-Trace); Specific Gravity,Urine 1.021 (1.010-1.025); Urobilinogen,Urine Normal (Normal)
[2017-06-21 19:05] LABS: Bacteria,Urine None Seen per hpf (None-Few); Hyaline Casts,Urine None Seen per lpf (None-Few); RBC,Urine 0-3 per hpf (0-3); Squamous Epithelial Cell,Urine Many per lpf (None-Few)
--- NOTE | 2017-06-21 19:39 | Internal Med History&Physical ---
Date of Encounter: 06/21/17 Time of Encounter: 19:36 Internal Medicine - H&P: HPI Chief complaint: sob and productive cough Admitted From: Emergency Dept Plans for Post Hospital Care: Home History of present illness: Ms. Keenan is a 61 year old female Patient with history of metastatic lung cancer to liver, bone and brain, COPD, hypertension, smoking history, compression fraction, anemia and recurrent pneumonia. Patient recently admitted for pneumonia and then discharged on tapering of steroid and po antibiotic patient present with worsening productive cough of thick greenish sputum , wheezing , increased shortness of breath and fever and chills chest x-ray consistent with the pneumonia patient wheezing both inspiration and expiration patient been admitted for COPD exacerbation and pneumonia. Given recent admission was started on vancomycin and cefepime and consult pulmonology for further follow-up evaluation and treatment. Past Med Surg Social Fam HX - Past Medical History Medical history: cancer, COPD, hypertension Psychiatric history: anxiety, depression - Past Surgical History Surgical History: hysterectomy - Social History Smoking Status: Former smoker Smokeless Tobacco Status: No Alcohol use: none Drug use: none - Family History Sister Adopted: No Family Member Ethnicity: Non- Living Status: Still Living Hx Family Cardiac Disorders: Yes (HTN) Hx Family Respiratory Disorders: No Hx Family Cancer: Yes (Lymphoma) Hx Family GI Disorders: No Hx Family Endocrine Disorder: No Hx Family Neuromuscular Disorders: No Hx Family Neurologic Disorders: No Hx Family HEENT Disorders: No Hx Family Autoimmune Disorders: No Mother Family Member Ethnicity: Non- Living Status: Hx Family Cardiac Disorders: Yes (hypertension,) Hx Family Respiratory Disorders: Yes (COPD) Hx Family Cancer: No Hx Family GI Disorders: No Hx Family Endocrine Disorder: No Hx Family Neuromuscular Disorders: No Hx Family Neurologic Disorders: No Hx Family HEENT Disorders: No Father Adopted: No Family Member Ethnicity: Non- Living Status: Hx Family Cardiac Disorders: Yes Hx Family Respiratory Disorders: Yes (mother copd) Hx Family Cancer: No Hx Family GI Disorders: No Hx Family Endocrine Disorder: No Hx Family Neuromuscular Disorders: No Hx Family Neurologic Disorders: No Hx Family HEENT Disorders: No Hx Family Autoimmune Disorders: No Internal Medicine - H&P: Meds Trazodone HCl 200 mg PO HS 02/15/16 [History] Albuterol Sulfate [Albuterol Inhaler] 2 puff IH Q6H PRN 10/14/16 [History] Budesonide/Formoterol 160/4.5 [Symbicort 160/4.5] 2 puff IH BIDR 10/14/16 [ History] Oxygen 2 l NS AD 10/14/16 [History] Calcium Carbonate/Vitamin D3 [Calcium 500 + Vit D Caplet] 2 each PO DAILY #60 tablet 12/26/16 [Rx] LORazepam [Ativan] 0.5 mg PO BID PRN 7 Days #14 tablet 05/23/17 [Rx] Omeprazole [PriLOSEC] 20 mg PO DAILY@0630 #30 capsule. 06/03/17 [Rx] Albuterol Neb [Proventil Neb] 2.5 mg IH Q2H PRN #120 inhsol 06/08/17 [Rx] Buspirone HCl [Buspar] 15 mg PO BID #60 tablet 06/08/17 [Rx] DULoxetine [Cymbalta] 30 mg PO HS #30 capsule. 06/08/17 [Rx] Ipratropium/Albuterol Neb [Duoneb] 3 ml IH [id number] #160 inhsol 06/08/17 [Rx] Promethazine [Phenergan] 12.5 mg PO ACHS 20 Days #40 tablet 06/08/17 [Rx] Metoprolol [Lopressor] 12.5 mg PO BID PRN MDD SEE NOTE 06/13/17 [History] Potassium Chloride [K-Tab ER] 20 meq PO DAILY 06/13/17 [History] Sucralfate [Carafate] 10 ml PO BID 06/13/17 [History] clonazePAM [Klonopin] 0.5 mg PO BID 06/13/17 [History] Calcium Carbonate [Tums] 1,000 mg PO TID tab.chew 06/16/17 [Rx] Cefdinir [Omnicef] 300 mg PO BID #14 capsule 06/16/17 [Rx] GuaiFENesin ER [Mucinex] 1,200 mg PO BID PRN #60 tbbp.12hr 06/16/17 [Rx] levoFLOXacin [Levaquin] 750 mg PO DAILY #10 tablet 06/16/17 [Rx] OxyCODONE Immed Rel [Roxicodone 10 MG] 10 mg PO TID PRN 30 Days #90 tab [Rx] Prochlorperazine Maleate [Compazine] 10 mg PO Q8HR #90 tablet 06/18/17 [Rx] Melatonin [Melatin] 3 mg PO HS 06/21/17 [History] 3 Allergy/AdvReac Type Severity Reaction Status Date / Time No Known Allergies Allergy Verified 06/13/17 17:07 All Systems PM: A 10-system review of systems was performed and is negative for pertinent findings except as documented above in the HPI. - Constitutional Vitals: Temp Pulse Resp BP Pulse Ox 98.8 F 11 20 102/65 90 06/21/17 19:12 06/21/17 19:12 06/21/17 19:12 06/21/17 19:12 06/21/17 19:12 General appearance: Present: cachectic, underweight - Head Head exam: Present: atraumatic, normocephalic - Eye Eye exam: Present: PERRL, conjuntiva pink, sclera anicteric Pupils: Present: PERRL - Respiratory Respiratory exam: Present: prolonged expiratory phase, rhonchi, wheezes - Cardiovascular Cardiovascular exam: Present: RRR, +S1, +S2. Absent: diastolic murmur, gallop, rubs, systolic murmur - GI/Abdominal GI/Abdominal exam: Present: normal bowel sounds, soft, no peritoneal signs. Absent: distended, tenderness - Extremities Exam Extremities exam: Present: warm, radial pulses palpable and symmetrical. Absent : calf tenderness, cyanotic, pedal edema Internal Med - H&P Results - Labs CBC & Chem 7: 06/21/17 15:55 06/21/17 15:55 Labs: Urine 06/21/17 Range/Units 18:50 Urine Color Yellow (Yellow) Urine Clarity Clear (Clear) Urine pH 6.5 (5.0-8.0) pH Units Ur Specific [place] 1.021 (1.010-1.025) Urine Protein Negative (Neg-Trace) mg/dL Urine Glucose (UA) Normal (Normal) mg/dL - Assessment and plan (1) COPD exacerbation Current Visit: Yes Status: Acute Assessment and plan: patient with acute on chronic respiratory failure (2) Cancer associated pain Current Visit: No Status: Chronic Assessment and plan: We will consult palliative care for management (3) HCAP (healthcare-associated pneumonia) Current Visit: No Status: Acute Assessment and plan: Patient will recent treatment for pneumonia not getting better with by mouth antibiotic we will restart on vancomycin and cefepime (4) Anemia Current Visit: No Status: Chronic Qualifiers: Anemia type: other cause Other causes of anemia: antineoplastic chemotherapy Qualified Code(s): D64.81 - Anemia due to antineoplastic chemotherapy; T45.1X5A - Adverse effect of antineoplastic and immunosuppressive drugs, initial encounter; T45.1X5A - Adverse effect of antineoplastic and immunosuppressive drugs, initial encounter (5) HTN (hypertension) Current Visit: No Status: Chronic Assessment and plan: Chronic and well controlled Qualifiers: Hypertension type: essential hypertension Qualified Code(s): I10 - Essential (primary) hypertension (6) Metastatic lung cancer (metastasis from lung to other site) Current Visit: No Status: Chronic Qualifiers: Laterality: unspecified laterality Qualified Code(s): C34.90 - Malignant neoplasm of unspecified part of unspecified bronchus or lung (7) Smoking Current Visit: No Status: Resolved - Time Spent With Patient Total time spent is greater than 50% in coordination of care (as documented) at patient's floor/unit and/or counseling patient:
[2017-06-21] MEDS ORDERED: Naloxone 0.4 MG/ML INJ IVP PRN (19:44)
[2017-06-21] MEDS ORDERED: Acetaminophen 325 MG TABLET PO PRN (19:44)
[2017-06-21] MEDS ORDERED: Ipratropium/Albuterol Neb 3 ML IH PRN (19:46)
[2017-06-21] MEDS ORDERED: NON-FORMULARY MEDICATION 1 EACH EACH (Oxygen [Oxygen] 2 L) NS SCH (20:00)
[2017-06-21] MEDS: Budesonide/Formoterol 160/4.5 MDI IH SCH (20:28)
[2017-06-21] MEDS: Ipratropium/Albuterol Neb 3 ML IH SCH ×2 (20:28→23:57)
[2017-06-21] MEDS: clonazePAM 0.5 MG TABLET PO SCH (21:11)
[2017-06-21] MEDS: traZODone 50 MG TABLET PO SCH (21:11)
[2017-06-21] MEDS: Melatonin 3 MG TABLET PO SCH (21:11)
[2017-06-21] MEDS: 0.9 % Sodium Chloride 1,000 ML IVC SCH (21:15)
[2017-06-22] MEDS: Cefepime HCl 1,000 MG in Water for inj. (sterile) 20 ML 10 ML IVP SCH ×3 (00:14→16:13)
[2017-06-22] MEDS: methylPREDNISolone 125 MG/2 ML VIAL IVP SCH ×3 (00:15→16:14)
[2017-06-22] MEDS: Ipratropium/Albuterol Neb 3 ML IH SCH ×5 (04:03→20:21)
[2017-06-22] MEDS: *HR* Enoxaparin 40 MG/0.4 ML SYRINGE SQ SCH (06:02)
[2017-06-22 06:09] LABS: Alanine Aminotransferase 11 Units/L (7-52); Albumin 2.7 g/dL (3.5-5.7); Albumin/Globulin Ratio 1.1 (1.1-2.2); Alkaline Phosphatase 62 Units/L (34-104); Aspartate Amino Transferase 12 Units/L (13-39); BUN/Creatinine Ratio 31 (6-26); Bilirubin,Total 0.2 mg/dL (0.3-1.0); Blood Urea Nitrogen 10 mg/dL (8-23); Calcium 8.3 mg/dL (8.6-10.3); Carbon Dioxide 27 mEq/L (23-29); Chloride 103 mEq/L (98-107); Globulin 2.5 g/dL (2.4-3.5); Glucose 149 mg/dL (70-105); Magnesium 1.7 mg/dL (1.6-2.6); Osmolality,Calculated 280 (280-300); Potassium 4.1 mEq/L (3.5-5.1); Sodium 134 mEq/L (136-145); Total Protein 5.2 g/dL (6.4-8.9); eGFR For African Americans > 60 (> 60); eGFR For Non-African Americans > 60 (> 60)
[2017-06-22] MEDS: Budesonide/Formoterol 160/4.5 MDI IH SCH ×2 (07:25→20:21)
[2017-06-22] MEDS: clonazePAM 0.5 MG TABLET PO SCH ×2 (07:50→21:24)
[2017-06-22] MEDS: Cholecalciferol (D-3) 1,000 UNIT TABLET PO SCH (07:50)
--- NOTE | 2017-06-22 08:40 | Palliative - Consult Note ---
Date of Encounter: 06/22/17 Time of Encounter: 07:40 - Assessment and Plan (1) Acute and chronic respiratory failure Current Visit: No Status: Chronic Assessment and plan: treatment with bronchodilators and oxygen plan per hospitalist team Qualifiers: Respiratory failure complication: hypoxia Qualified Code(s): J96.21 - Acute and chronic respiratory failure with hypoxia (2) Pneumonia Current Visit: No Status: Suspected Assessment and plan: Treatment is ongoing for hospital acquired pneumonia, and per hospitalist team continue current antibiotics Qualifiers: Pneumonia type: due to unspecified organism Laterality: right Lung location: unspecified part of lung Qualified Code(s): J18.9 - Pneumonia, unspecified organism (3) Small cell 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 Current Visit: No Status: Chronic Assessment and plan: The patient still wishes to avail herself of any and all therapies of available to her for as long as she can. (4) Compression fracture of body of thoracic vertebra Current Visit: No Status: Chronic (5) Pain Current Visit: No Status: Acute Assessment and plan: pain is well controlled on current regimen no changes anticipated. (6) Goals of care, counseling/discussion Current Visit: No Status: Acute Assessment and plan: CODE STATUS is currently full. Patient is actively reconsidering this in view of her goals of care. As of care, since goals of care are quite simple she cares for a 12-year-old grandson is for every minute she can have with him. In this Particular case quantity trumps quality. I did however have a very extensive conversation with her about CODE STATUS and the extreme probability that given her overall health condition and did resuscitation my only bring her back in a condition she may not want her grandson to see her in. He told her that I felt there was a less than 5% chance of bringing her back to any way that she could communicate with her grandson and in all likelihood leave her [employer]. She states that she does not think she wants that she is going to discuss this further with her . We will follow up on this tomorrow. As a major step forward for this patient. Overall goal of care however has not changed at all she wishes to continue to get any and all aggressive care with the objective of spending every minute possible with her grandson. Of note, it has been pointed out to her that with hospice she could be spending more time at home and with him, and less in the hospital however not hospice ready at this time in her mind even though she is hospice to bowl and appropriate. (7) Nausea & vomiting Current Visit: No Status: Acute Assessment and plan: The patient continues to have some trouble with nausea, however vacations seem to be working. Patient is the Phenergan works well for her in general and she is on it scheduled here. if This does not work I would recommend trying some [place] pain. Other possibilities are a combination of Reglan and dexamethasone with Benadryl. Will continue to watch and see if his are necessary. Qualifiers: Vomiting type: unspecified Vomiting Intractability: non-intractable Qualified Code(s): R11.2 - Nausea with vomiting, unspecified Palliative-CN HPI - Data of Consult Patient: known to practice within the last 3 years Requesting Physician: Tod Sanchez MD Primary Care Provider: Ron Ward MD - Consult Narrative Palliative Care/Comfort Measures: Palliative care Reason for consult: Pain management History of present illness: Ms. eKenan is a 61 year old female With extensive history of metastatic lung cancer. An severe COPD. She has been hospitalized multiple times are not pneumonia. 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 Also now also in the liver. He has continued to get chemotherapy. And also radiation therapy. She has had MRI of the brain which showed small new any intercranial lesions which are felt possibly metastatic. Patient is going to pursue immunotherapy if this is available to her after she finishes this hospitalization. Her of note the patient has had recurrent pneumonias. And may not be able to avail herself of the in therapy. Patient states that she is still having what nausea, occasions do seem to be somewhat effective for this. Her pain is primarily from lesions in her back and compression fractures which is well-controlled on her current medications. CC: Tod Sanchez MD sob Past Med Surg Social Fam HX - Past Medical History Medical history: cancer, COPD, hypertension Psychiatric history: anxiety, depression - Past Surgical History Surgical History: hysterectomy - Social History Smoking Status: Former smoker Smokeless Tobacco Status: No Alcohol use: none Drug use: none - Family History Sister Adopted: No Family Member Ethnicity: Non- Living Status: Still Living Hx Family Cardiac Disorders: Yes (HTN) Hx Family Respiratory Disorders: No Hx Family Cancer: Yes (Lymphoma) Hx Family GI Disorders: No Hx Family Endocrine Disorder: No Hx Family Neuromuscular Disorders: No Hx Family Neurologic Disorders: No Hx Family HEENT Disorders: No Hx Family Autoimmune Disorders: No Hx Family Medical Disorders: Yes (Blood disorder) Mother Family Member Ethnicity: Non- Living Status: Age at : 70 Cause of : abdomina aneurysm Hx Family Cardiac Disorders: Yes (hypertension,) Hx Family Respiratory Disorders: Yes (COPD) Hx Family Cancer: No Hx Family GI Disorders: No Hx Family Endocrine Disorder: No Hx Family Neuromuscular Disorders: No Hx Family Neurologic Disorders: Yes (Alzheimers) Hx Family HEENT Disorders: No Father Adopted: No Family Member Ethnicity: Non- Living Status: Age at : 78 Cause of : PR Hx Family Cardiac Disorders: Yes Hx Family Respiratory Disorders: Yes (mother copd) Hx Family Cancer: No Hx Family GI Disorders: No Hx Family Endocrine Disorder: No Hx Family Neuromuscular Disorders: No Hx Family Neurologic Disorders: No Hx Family HEENT Disorders: No Hx Family Autoimmune Disorders: No Medications and Allergies Trazodone HCl 200 mg PO HS 02/15/16 [History] Albuterol Sulfate [Albuterol Inhaler] 2 puff IH Q6H PRN 10/14/16 [History] Budesonide/Formoterol 160/4.5 [Symbicort 160/4.5] 2 puff IH BIDR 10/14/16 [ History] Oxygen 2 l NS AD 10/14/16 [History] Calcium Carbonate/Vitamin D3 [Calcium 500 + Vit D Caplet] 2 each PO DAILY #60 tablet 12/26/16 [Rx] LORazepam [Ativan] 0.5 mg PO BID PRN 7 Days #14 tablet 05/23/17 [Rx] Omeprazole [PriLOSEC] 20 mg PO DAILY@0630 #30 capsule. 06/03/17 [Rx] Albuterol Neb [Proventil Neb] 2.5 mg IH Q2H PRN #120 inhsol 06/08/17 [Rx] Buspirone HCl [Buspar] 15 mg PO BID #60 tablet 06/08/17 [Rx] DULoxetine [Cymbalta] 30 mg PO HS #30 capsule. 06/08/17 [Rx] Ipratropium/Albuterol Neb [Duoneb] 3 ml IH [id number] #160 inhsol 06/08/17 [Rx] Promethazine [Phenergan] 12.5 mg PO ACHS 20 Days #40 tablet 06/08/17 [Rx] Metoprolol [Lopressor] 12.5 mg PO BID PRN MDD SEE NOTE 06/13/17 [History] Potassium Chloride [K-Tab ER] 20 meq PO DAILY 06/13/17 [History] Sucralfate [Carafate] 10 ml PO BID 06/13/17 [History] clonazePAM [Klonopin] 0.5 mg PO BID 06/13/17 [History] Calcium Carbonate [Tums] 1,000 mg PO TID tab.chew 06/16/17 [Rx] Cefdinir [Omnicef] 300 mg PO BID #14 capsule 06/16/17 [Rx] GuaiFENesin ER [Mucinex] 1,200 mg PO BID PRN #60 tbbp.12hr 06/16/17 [Rx] levoFLOXacin [Levaquin] 750 mg PO DAILY #10 tablet 06/16/17 [Rx] OxyCODONE Immed Rel [Roxicodone 10 MG] 10 mg PO TID PRN 30 Days #90 tab [Rx] Prochlorperazine Maleate [Compazine] 10 mg PO Q8HR #90 tablet 06/18/17 [Rx] Melatonin [Melatin] 3 mg PO HS 06/21/17 [History] 3 Allergy/AdvReac Type Severity Reaction Status Date / Time No Known Allergies Allergy Verified 06/13/17 17:07 - Constitutional Constitutional ROS PAL: anorexia, weight loss - Cardiovascular Cardiovascular ROS: no chest pain, no chest pain at rest, no chest pain with activity - Respiratory Respiratory: cough, dyspnea on exertion, wheezing, chest congestion - Gastrointestinal Gastrointestinal: nausea, vomiting, no constipation, no diarrhea - Genitourinary Palliative ROS female: no urinary frequency, no urinary hesitancy, no urinary incontinence - Musculoskeletal Musculoskeletal ROS IM: arthralgias, back pain - Integumentary ROS Integumentary: no rash, no skin ulcer - Neurological Neurological ROS: no headache(s), no lack of coordination, no memory loss - Psychiatric Psychiatric general PM: no depression, no difficulty concentrating, no homicidal ideation - Endocrine Endocrine IM: other (No diabetes no thyroid problems.) Palliative Care-Exam - Constitutional Vitals: Temp Pulse Resp BP Pulse Ox 97.6 F 92 18 103/72 93 06/22/17 06:38 06/22/17 06:38 06/22/17 07:25 06/22/17 06:38 06/22/17 07:25 General appearance: Present: no acute distress - Head Head Exam: Present: atraumatic, normal inspection - Eye Eye exam: Present: normal appearance - ENT ENT exam: Present: normal exam - Respiratory Respiratory exam: Present: decreased breath sounds - Cardiovascular Cardiovascular exam: Present: RRR - GI/Abdominal Exam GI/Abdominal exam: Present: normal bowel sounds. Absent: soft, tenderness - Neurological Exam Neurological exam: Present: alert, oriented X3 - Psychiatric Psychiatric exam: Absent: agitated, anxious - Skin Skin exam: Present: dry, warm Internal Medicine - CN: Reslt - Labs CBC & Chem 7: 06/21/17 15:55 06/22/17 05:23 Labs: BMP 06/22/17 05:23 Sodium 134 L Potassium 4.1 Chloride 103 Carbon Dioxide 27 BUN 10 Creatinine 0.32 L Glucose 149 H Calcium 8.3 L Liver Function 06/22/17 Range/Units 05:23 Total Bilirubin 0.2 L (0.3-1.0) mg/dL AST 12 L (13-39) Units/L ALT 11 (7-52) Units/L Alkaline Phosphatase 62 (34-104) Units/L Albumin 2.7 L (3.5-5.7) g/dL Consult Discharge Plan - Plan Referrals: Ron Ward MD [Primary Care Provider] - Palliative Quality Palliative Quality: Screen for Code Status: Yes, Screen for Goals of Care: Yes, Screen for Pain: Yes, If Pain Regimen Started, Initiate Bowel Regimen: Yes, Screen for Nausea/Vomitting: Yes
[2017-06-22] MEDS ORDERED: NON-FORMULARY MEDICATION 1 EACH EACH (Calcium Carbonate/Vitamin D3 [Calcium 500 + Vit D Ca PO SCH (09:00)
[2017-06-22] MEDS: 0.9 % Sodium Chloride 1,000 ML IVC SCH (10:52)
--- NOTE | 2017-06-22 12:09 | Internal Med Progress Note ---
Date of Encounter: 06/22/17 Time of Encounter: 12:07 - Assessment and plan (1) COPD exacerbation Current Visit: Yes Status: Acute Assessment and plan: clinically much better awaits pum consult evaluation (2) Cancer associated pain Current Visit: No Status: Chronic Assessment and plan: seen by palliative care and goal discussed (3) HCAP (healthcare-associated pneumonia) Current Visit: No Status: Acute Assessment and plan: on van co and cefepime (4) Anemia Current Visit: No Status: Chronic Qualifiers: Anemia type: other cause Other causes of anemia: antineoplastic chemotherapy Qualified Code(s): D64.81 - Anemia due to antineoplastic chemotherapy; T45.1X5A - Adverse effect of antineoplastic and immunosuppressive drugs, initial encounter; T45.1X5A - Adverse effect of antineoplastic and immunosuppressive drugs, initial encounter (5) HTN (hypertension) Current Visit: No Status: Chronic Assessment and plan: chronic and well controlled Qualifiers: Hypertension type: essential hypertension Qualified Code(s): I10 - Essential (primary) hypertension (6) Metastatic lung cancer (metastasis from lung to other site) Current Visit: No Status: Chronic Assessment and plan: stage 4 stable course Qualifiers: Laterality: unspecified laterality Qualified Code(s): C34.90 - Malignant neoplasm of unspecified part of unspecified bronchus or lung (7) Smoking Current Visit: No Status: Resolved - Time Spent With Patient Total time spent is greater than 50% in coordination of care (as documented) at patient's floor/unit and/or counseling patient: - Subjective Interval history: patient seen and examined seen by palliat asking when she can go homeive care appreciate imput - Constitutional Vitals: Temp Pulse Resp BP Pulse Ox 97.6 F 114 18 128/80 98 06/22/17 06:38 06/22/17 11:00 06/22/17 11:32 06/22/17 11:00 06/22/17 11:32 General appearance: Present: cachectic, underweight - Head Head exam: Present: atraumatic, normocephalic - Eye Eye exam: Present: PERRL, conjuntiva pink, sclera anicteric Pupils: Present: PERRL - Respiratory Respiratory exam: Present: rhonchi, wheezes - Cardiovascular Cardiovascular exam: Present: RRR, +S1, +S2. Absent: diastolic murmur, gallop, rubs, systolic murmur - GI/Abdominal GI/Abdominal exam: Present: normal bowel sounds, soft, no peritoneal signs. Absent: distended, tenderness Internal Medicine: Result - Labs CBC & Chem 7: 06/21/17 15:55 06/22/17 05:23 Labs: BMP 06/22/17 05:23 Sodium 134 L Potassium 4.1 Chloride 103 Carbon Dioxide 27 BUN 10 Creatinine 0.32 L Glucose 149 H Calcium 8.3 L Liver Function 06/22/17 Range/Units 05:23 Total Bilirubin 0.2 L (0.3-1.0) mg/dL AST 12 L (13-39) Units/L ALT 11 (7-52) Units/L Alkaline Phosphatase 62 (34-104) Units/L Albumin 2.7 L (3.5-5.7) g/dL Consult Discharge Plan - Plan Referrals: Ron Ward MD [Primary Care Provider] -
[2017-06-22] MEDS: traMADol 50 MG TABLET PO PRN ×2 (14:27→22:30)
[2017-06-22] MEDS: traZODone 50 MG TABLET PO SCH (21:25)
[2017-06-22] MEDS: Melatonin 3 MG TABLET PO SCH (21:25)
[2017-06-23] MEDS: methylPREDNISolone 125 MG/2 ML VIAL IVP SCH ×4 (00:37→23:51)
[2017-06-23] MEDS: *HR* LORazepam 0.5 MG TABLET PO PRN ×2 (00:37→15:14)
[2017-06-23] MEDS: Cefepime HCl 1,000 MG in Water for inj. (sterile) 20 ML 10 ML IVP SCH ×4 (00:38→23:52)
[2017-06-23] MEDS: Ipratropium/Albuterol Neb 3 ML IH SCH ×7 (00:41→23:18)
[2017-06-23] MEDS: *HR* Enoxaparin 40 MG/0.4 ML SYRINGE SQ SCH (06:05)
[2017-06-23 07:17] LABS: Hematocrit 25.7 % (35.3-44.9); Mean Corpuscular HGB Conc 32.3 g/dL (31.6-35.5); Mean Corpuscular Volume 89.9 fL (83.0-100.0); Platelet Count 305 K/mcL (140-400); Red Blood Count 2.86 M/mcL (3.82-4.97); Red Cell Distribution Width 14.1 % (11.5-14.5)
[2017-06-23 07:18] LABS: Hemoglobin 8.3 g/dL (11.5-15.4)
[2017-06-23] MEDS: Budesonide/Formoterol 160/4.5 MDI IH SCH ×2 (07:23→19:41)
[2017-06-23] MEDS: Cholecalciferol (D-3) 1,000 UNIT TABLET PO SCH (07:51)
[2017-06-23] MEDS: clonazePAM 0.5 MG TABLET PO SCH ×2 (07:52→20:26)
--- NOTE | 2017-06-23 07:55 | Palliative Progress Note ---
Date of Encounter: 06/23/17 Time of Encounter: 07:00 - Assessment and plan (1) Acute and chronic respiratory failure Current Visit: No Status: Chronic Assessment and plan: Getting better slowly, patient certainly continues to be a major risk for re- hospice pulsation for the same. Plan per the hospitalist team Qualifiers: Respiratory failure complication: hypoxia Qualified Code(s): J96.21 - Acute and chronic respiratory failure with hypoxia (2) Pneumonia Current Visit: No Status: Suspected Qualifiers: Pneumonia type: due to unspecified organism Laterality: right Lung location: unspecified part of lung Qualified Code(s): J18.9 - Pneumonia, unspecified organism (3) Small cell 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 Current Visit: No Status: Chronic Assessment and plan: The patient continues to be trusted in aggressive care, she will continue to avail herself of what ever is available at the cancer center. (4) Compression fracture of body of thoracic vertebra Current Visit: No Status: Chronic Assessment and plan: Per the patient her pain is under good control. No changes today. (5) Pain Current Visit: No Status: Acute Assessment and plan: As above (6) Goals of care, counseling/discussion Current Visit: No Status: Acute Assessment and plan: Patient did discuss CODE STATUS after our discussion yesterday with her family. Her status has been changed this morning to DO NOT RESUSCITATE comfort care arrest short-term intubation is okay. He said she does not wish to be on a machine long-term and she will discuss this with her she definitely does not want trach or pain. Goal is still to get home. Her primary goal of care continues to be her grandson. She will essentially do whatever it takes to spend more time with him. Have brought up to her that if she goes with hospice Maisha kingows been more time at home with her grandson, however at this point in time she is not ready for hospice in her own mind. She is certainly hospice eligible. The that she fully understands when she will need hospice and will then avail herself of it. She understands all she has to do is ask for it, I recommend no further hospice discussions with her the palliative care team unless she asks. (7) Nausea & vomiting Current Visit: No Status: Acute Assessment and plan: Under good control at this time no changes Qualifiers: Vomiting type: unspecified Vomiting Intractability: non-intractable Qualified Code(s): R11.2 - Nausea with vomiting, unspecified - Time Spent With Patient Total time spent is greater than 50% in coordination of care (as documented) at patient's floor/unit and/or counseling patient: - Subjective Interval history: The patient reports her nausea is much better, her pain is under good control did discuss CODE STATUS with her and changes were made. The assessment and plan. She is breathing is getting better as well. - Constitutional Vitals: Abnormal lab results RBC 2.86 M/mcL (3.82-4.97) L 06/23/17 06:58 Hgb 8.3 g/dL (11.5-15.4) L D 06/23/17 06:58 Hct 25.7 % (35.3-44.9) L 06/23/17 06:58 MPV 9.0 fL (9.4-12.4) L 06/23/17 06:58 Sodium 134 mEq/L (136-145) L 06/22/17 05:23 Creatinine 0.32 mg/dL (0.60-1.20) L 06/22/17 05:23 BUN/Creatinine Ratio 31 (6-26) H 06/22/17 05:23 Glucose 149 mg/dL (70-105) H 06/22/17 05:23 Calcium 8.3 mg/dL (8.6-10.3) L 06/22/17 05:23 Total Bilirubin 0.2 mg/dL (0.3-1.0) L 06/22/17 05:23 AST 12 Units/L (13-39) L 06/22/17 05:23 Serum Total Protein 5.2 g/dL (6.4-8.9) L 06/22/17 05:23 Albumin 2.7 g/dL (3.5-5.7) L 06/22/17 05:23 Ur Leukocyte Esterase Small (Negative) H 06/21/17 18:50 Urine Microscopic WBC 5-15 per hpf (0-3) H 06/21/17 18:50 Ur Squamous Epith Cells Many per lpf (None-Few) H 06/21/17 18:50 Ur Culture Indicated? NO. (NO) A 06/21/17 18:50 General appearance: Present: no acute distress - Respiratory Respiratory exam: Present: decreased breath sounds, rhonchi, wheezes - Cardiovascular Cardiovascular exam: Present: RRR - Extremities Exam Extremities exam: Absent: tenderness - Neurological Exam Neurological exam: Present: alert, oriented X3 - Psychiatric Psychiatric exam: Absent: agitated, anxious - Skin Skin exam: Present: dry, warm Palliative Quality Palliative Quality: Screen for Code Status: Yes, Screen for Goals of Care: Yes, Screen for Pain: Yes, If Pain Regimen Started, Initiate Bowel Regimen: Yes, Screen for Nausea/Vomitting: Yes Code Status: 06/21/17 19:44 Resuscitation Status: Active [RES] Routine Comment: shrot term intubation is ok. no trach,no peg Resuscitation Status: DNR-Comfort Care-Arrest - Labs CBC & Chem 7: 06/23/17 06:58 06/22/17 05:23 Labs: Laboratory Results - last 24 hr 06/23/17 06:58 WBC 7.6 RBC 2.86 L Hgb 8.3 L D Hct 25.7 L MCV 89.9 MCH 29.0 MCHC 32.3 RDW 14.1 Plt Count 305 MPV 9.0 L Consult Discharge Plan - Plan Referrals: Ron Ward MD [Primary Care Provider] -
[2017-06-23] MEDS: traMADol 50 MG TABLET PO PRN (14:43)
--- NOTE | 2017-06-23 17:02 | Internal Med Progress Note ---
Date of Encounter: 06/23/17 Time of Encounter: 16:59 - Assessment and plan (1) Acute and chronic respiratory failure ([id number]) Current Visit: Yes Status: Acute Assessment and plan: - History of COPD and a small cell lung cancer, recently was admitted for healthcare associated pneumonia and was treated and released. Readmitted because of increased sputum production, cough, and shortness of breath. - Symptoms consistent with pneumonia, IV antibiotics cefepime and vancomycin started. - Escalated treatment for COPD including IV steroid, scheduled and as needed DuoNeb, her home medication symbicort. - Overall symptoms have improved. Qualifiers: Respiratory failure complication: hypoxia Qualified Code(s): J96.21 - Acute and chronic respiratory failure with hypoxia (2) Acute exacerbation of COPD with asthma Current Visit: Yes Status: Acute Assessment and plan: - As above. add Singulair. (3) Healthcare-associated pneumonia Current Visit: Yes Status: Acute Assessment and plan: - As above. (4) Small cell 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 Current Visit: No Status: Chronic Assessment and plan: - H for lung cancer, bone and the brain metastasis. Palliative care consulted. Patient rejected hospice care at this time. - DNR [facility] (5) Compression fracture of body of thoracic vertebra Current Visit: No Status: Chronic Assessment and plan: - Stable, pain control. (6) Anxiety Current Visit: No Status: Acute Assessment and plan: - Continue home medication. (7) HTN (hypertension) Current Visit: No Status: Chronic Assessment and plan: - continue home medication. Qualifiers: Hypertension type: essential hypertension Qualified Code(s): I10 - Essential (primary) hypertension - Time Spent With Patient Total time spent is greater than 50% in coordination of care (as documented) at patient's floor/unit and/or counseling patient: Greater than 35 minutes - Subjective Interval history: Patient is seen in the room with family member. She reported improved respiratory status. She denies fever, chest pain, hemoptysis. - Constitutional Vitals: Temp Pulse Resp BP Pulse Ox 97.7 F 96 18 147/96 93 06/23/17 16:00 06/23/17 16:00 06/23/17 16:08 06/23/17 16:00 06/23/17 16:08 General appearance: Present: cachectic, underweight Exam: PHYSICAL EXAMINATION: GENERAL APPEARANCE: The patient is alert, oriented and in no acute distress. HEENT: Head is normocephalic. The sinuses are nontender. Pupils are equal and reactive. The nares are patent. Oropharynx clear without lesions. NECK: Supple without lymphadenopathy. HEART: Regular rate and rhythm. LUNGS: No crackles or wheezes are heard. ABDOMEN: Soft, nontender, nondistended with good bowel sounds heard. Inguinal area is normal. EXTREMITIES: Without cyanosis, clubbing or edema. NEUROLOGICAL: Gross nonfocal. SKIN: Warm and dry without any rash. Internal Medicine: Result - Labs CBC & Chem 7: 06/23/17 06:58 06/22/17 05:23 Labs: Short CBC 06/23/17 Range/Units 06:58 WBC 7.6 (4.3-11.1) K/mcL Hgb 8.3 L D (11.5-15.4) g/dL Hct 25.7 L (35.3-44.9) % Plt Count 305 (140-400) K/mcL Consult Discharge Plan - Plan Referrals: Ron Ward MD [Primary Care Provider] -
[2017-06-23] MEDS: Melatonin 3 MG TABLET PO SCH (20:26)
[2017-06-23] MEDS: traZODone 50 MG TABLET PO SCH (20:26)
[2017-06-24] MEDS: Ipratropium/Albuterol Neb 3 ML IH SCH ×5 (04:26→20:24)
[2017-06-24] MEDS: *HR* Enoxaparin 40 MG/0.4 ML SYRINGE SQ SCH (06:31)
[2017-06-24 07:14] LABS: BUN/Creatinine Ratio 26 (6-26); Blood Urea Nitrogen 8 mg/dL (8-23); Calcium 8.8 mg/dL (8.6-10.3); Carbon Dioxide 27 mEq/L (23-29); Chloride 94 mEq/L (98-107); Glucose 153 mg/dL (70-105); Osmolality,Calculated 265 (280-300); Sodium 127 mEq/L (136-145); eGFR For African Americans > 60 (> 60); eGFR For Non-African Americans > 60 (> 60)
[2017-06-24] MEDS: Budesonide/Formoterol 160/4.5 MDI IH SCH ×2 (07:50→20:24)
[2017-06-24 08:37] LABS: Basophils % 0.4 %; Hematocrit 28.3 % (35.3-44.9); Hemoglobin 9.1 g/dL (11.5-15.4); Immature Granulocytes % 3.9 % (0-4); Lymphocytes # 0.7 K/mcL (0.6-4.6); Lymphocytes % 7.8 %; Mean Corpuscular HGB Conc 32.2 g/dL (31.6-35.5); Mean Corpuscular Hemoglobin 28.8 pg (28.0-33.3); Mean Corpuscular Volume 89.6 fL (83.0-100.0); Mean Platelet Volume 9.2 fL (9.4-12.4); Monocytes # 0.4 K/mcL (0.0-1.3); Monocytes % 4.4 %; Neutrophils # 7.7 K/mcL (1.6-8.9); Platelet Count 345 K/mcL (140-400); Red Blood Count 3.16 M/mcL (3.82-4.97); Red Cell Distribution Width 13.8 % (11.5-14.5); Segmented Neutrophils % 83.5 %
[2017-06-24] MEDS: *HR* OxyCODONE Immed Rel 5 MG TABLET PO PRN ×2 (09:54→15:28)
[2017-06-24] MEDS: Cholecalciferol (D-3) 1,000 UNIT TABLET PO SCH (09:55)
[2017-06-24] MEDS: methylPREDNISolone 125 MG/2 ML VIAL IVP SCH ×2 (09:55→17:35)
[2017-06-24] MEDS: clonazePAM 0.5 MG TABLET PO SCH ×2 (09:55→20:30)
[2017-06-24] MEDS: Cefepime HCl 1,000 MG in Water for inj. (sterile) 20 ML 10 ML IVP SCH ×2 (09:56→17:34)
--- NOTE | 2017-06-24 12:42 | Palliative Progress Note ---
Date of Encounter: 06/24/17 Time of Encounter: 12:30 - Assessment and plan (1) Shortness of breath Current Visit: No Status: Acute Assessment and plan: Was still on antibiotics prior to coming in the hospital. Remains on oxygen. Pulmonology consult pending - bronch/stent discussed last visit - Patient states they did not think this would have much benefit. Anxiety well controlled. Probably not much left to offer. She would benefit from hospice care and they could manage SL opioids for dyspnea, however, she continues to decline. (2) Pain Current Visit: No Status: Acute Assessment and plan: Well controlled with Tramadol and Oxycodone. She has utilized Tramadol x3 last 24 hours, Oxycodone x1. MOnitor (3) Goals of care, counseling/discussion Current Visit: No Status: Acute Assessment and plan: D/W Dr. Cardoso - pulmonology consult ordered, but does not appear she has been seen, unless there was a conversation with them that was not documented. Patient states that [facility] had nothing to offer, but states she saw Oncology here the next day,, and that they could not give further chemo unless she was stronger. She again presents with same symptoms. Still declining hospice care. States she does feel much better than on admission. Spoke with [facility] who declined her admission. Will continue to follow closely. (4) Anxiety Current Visit: No Status: Acute Assessment and plan: She is tolerating the Clonazepam/Buspar well. Utilizing Low dose Lorazepam PRN. Monitor (5) Acute and chronic respiratory failure Current Visit: No Status: Chronic Qualifiers: Respiratory failure complication: hypoxia Qualified Code(s): J96.21 - Acute and chronic respiratory failure with hypoxia (6) Pneumonia Current Visit: No Status: Suspected Qualifiers: Pneumonia type: due to unspecified organism Laterality: right Lung location: unspecified part of lung Qualified Code(s): J18.9 - Pneumonia, unspecified organism - Time Spent With Patient Total time spent is greater than 50% in coordination of care (as documented) at patient's floor/unit and/or counseling patient: 25 - 35 minutes - Subjective Interval history: Patient sitting up in bed eating lunch. Denies complaints and states she is breathing better. Pain well controlled. Nausea is well controlled as long as she has Phenergan prior to meals. No family present. - Constitutional Vitals: Abnormal lab results RBC 3.16 M/mcL (3.82-4.97) L 06/24/17 06:31 Hgb 9.1 g/dL (11.5-15.4) L 06/24/17 06:31 Hct 28.3 % (35.3-44.9) L 06/24/17 06:31 MPV 9.2 fL (9.4-12.4) L 06/24/17 06:31 Sodium 127 mEq/L (136-145) L 06/24/17 06:31 Chloride 94 mEq/L (98-107) L 06/24/17 06:31 Creatinine 0.31 mg/dL (0.60-1.20) L 06/24/17 06:31 Glucose 153 mg/dL (70-105) H 06/24/17 06:31 Calculated Osmolality 265 (280-300) L 06/24/17 06:31 Total Bilirubin 0.2 mg/dL (0.3-1.0) L 06/22/17 05:23 AST 12 Units/L (13-39) L 06/22/17 05:23 Serum Total Protein 5.2 g/dL (6.4-8.9) L 06/22/17 05:23 Albumin 2.7 g/dL (3.5-5.7) L 06/22/17 05:23 Ur Leukocyte Esterase Small (Negative) H 06/21/17 18:50 Urine Microscopic WBC 5-15 per hpf (0-3) H 06/21/17 18:50 Ur Squamous Epith Cells Many per lpf (None-Few) H 06/21/17 18:50 Ur Culture Indicated? NO. (NO) A 06/21/17 18:50 General appearance: Present: no acute distress - Respiratory Respiratory exam: Present: decreased breath sounds Additional comments: Course rales bilateral lower lobes - Cardiovascular Cardiovascular exam: Present: +S1, +S2 - GI/Abdominal GI/Abdominal exam: Present: normal bowel sounds, soft - Extremities Exam Extremities exam: Present: normal capillary refill, normal inspection - Neurological Exam Neurological exam: Present: alert, oriented X3, strengths equal and symetr throughout - Skin Skin exam: Present: dry, warm Palliative Quality Palliative Quality: Screen for Code Status: Yes, Screen for Goals of Care: Yes, Screen for Pain: Yes, If Pain Regimen Started, Initiate Bowel Regimen: Yes, Screen for Nausea/Vomitting: Yes Code Status: 06/21/17 19:44 Resuscitation Status: Active [RES] Routine Comment: shrot term intubation is ok. no trach,no peg Resuscitation Status: DNR-Comfort Care-Arrest - Labs CBC & Chem 7: 06/24/17 06:31 06/24/17 06:31 Labs: Laboratory Results - last 24 hr 06/24/17 06/24/17 06:31 06:31 WBC 9.2 RBC 3.16 L Hgb 9.1 L Hct 28.3 L MCV 89.6 MCH 28.8 MCHC 32.2 RDW 13.8 Plt Count 345 MPV 9.2 L Immature Gran % 3.9 Seg Neutrophils % 83.5 Lymphocytes % 7.8 Monocytes % 4.4 Eosinophils % 0.0 Basophils % 0.4 Neutrophils # 7.7 Lymphocytes # 0.7 Monocytes # 0.4 Eosinophils # 0.0 Basophils # 0.0 Sodium 127 L Potassium 4.0 Chloride 94 L Carbon Dioxide 27 BUN 8 Creatinine 0.31 L Est GFR ( Amer) > 60 Est GFR (Non-Af Amer) > 60 BUN/Creatinine Ratio 26 Glucose 153 H Calculated Osmolality 265 L Calcium 8.8 Consult Discharge Plan - Plan Referrals: Ron Ward MD [Primary Care Provider] -
--- NOTE | 2017-06-24 14:31 | Internal Med Progress Note ---
<Roberto Cardoso - Last Filed: 06/24/17 16:06> Date of Encounter: 06/24/17 Time of Encounter: 16:06 - Assessment and plan (1) Acute and chronic respiratory failure ([id number]) Current Visit: Yes Status: Acute Assessment and plan: Secondary to COPD exacerbation and pneumonia in setting of small cell lung cancer Due to her recurrent admissions for pneumonia and poor prognosis hospice was discussed with patient However patient refused hospice. Pulmonology was consulted and stated to obtain ct of chest to evaluate any benefit a bronchoscopy would have in treating her postobstructive pna. ct chest ordered. Qualifiers: Respiratory failure complication: hypoxia Qualified Code(s): J96.21 - Acute and chronic respiratory failure with hypoxia (2) Acute exacerbation of COPD with asthma Current Visit: Yes Status: Acute Assessment and plan: Secondary to pneumonia in setting of small cell lung cancer Patient's breathing is improved she is not on 2 L oxygen therapy. Plan to continue antibiotics, DuoNeb's, steroids. (3) Healthcare-associated pneumonia Current Visit: Yes Assessment and plan: Continue IV vancomycin and cefepime. Failed outpatient therapy. Initial peripheral blood cultures negative. (4) Small cell 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 Current Visit: Yes Status: Chronic (5) Compression fracture of body of thoracic vertebra Current Visit: Yes Status: Chronic Assessment and plan: Stable. Continue pain control. (6) Anxiety Current Visit: Yes Status: Acute Assessment and plan: Stable. Continue Klonopin and Cymbalta. (7) HTN (hypertension) Current Visit: Yes Status: Chronic Assessment and plan: Stable. Continue home medication. Qualifiers: Hypertension type: essential hypertension Qualified Code(s): I10 - Essential (primary) hypertension - Time Spent With Patient Total time spent is greater than 50% in coordination of care (as documented) at patient's floor/unit and/or counseling patient: - Subjective Interval history: Patient reports her shortness of breath is better. She reports being congested however unable to produce sputum. Currently she is on 2 L oxygen which is her home dose. Patient has had multiple admissions in the past year for pneumonia. This is related to her history of stage IV small cell lung cancer. She has been told by oncology that nothing else can be done. Patient also is being followed by palliative care with spoke to the patient hospice care but patient has refused this as well. Her goal is to get her breathing better and to return home. - Constitutional Vitals: Temp Pulse Resp BP Pulse Ox 97.7 F 100 16 150/98 95 06/24/17 06:47 06/24/17 06:47 06/24/17 11:08 06/24/17 06:47 06/24/17 11:08 General appearance: Present: cachectic, underweight - Other Additional findings: General: Pleasant without distress Heart: Sinus tachycardia Lungs: Diffuse rhonchi bilaterally Abdomen: Soft nontender, nondistended positive bowel sounds Skin: warm and dry, absent rash Extremities: Absent pedal edema, Neuro: Alert oriented 3 Vascular: Pedal and radial pulses 2 out of 4 Internal Medicine: Result - Labs CBC & Chem 7: 06/24/17 06:31 06/24/17 06:31 Labs: Short CBC 06/24/17 Range/Units 06:31 WBC 9.2 (4.3-11.1) K/mcL Hgb 9.1 L (11.5-15.4) g/dL Hct 28.3 L (35.3-44.9) % Plt Count 345 (140-400) K/mcL Neutrophils # 7.7 (1.6-8.9) K/mcL BMP 06/24/17 06:31 Sodium 127 L Potassium 4.0 Chloride 94 L Carbon Dioxide 27 BUN 8 Creatinine 0.31 L Glucose 153 H Calcium 8.8 Consult Discharge Plan - Plan Referrals: Ron Ward MD [Primary Care Provider] - <Everette Dick - Last Filed: 06/24/17 16:38> Date of Encounter: 06/24/17 - Assessment and plan (1) Acute exacerbation of COPD with asthma Current Visit: Yes Status: Acute (2) Acute and chronic respiratory failure ([id number]) Current Visit: Yes Status: Acute Qualifiers: Respiratory failure complication: hypoxia Qualified Code(s): J96.21 - Acute and chronic respiratory failure with hypoxia (3) Healthcare-associated pneumonia Current Visit: Yes (4) Small cell 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 Current Visit: Yes Status: Chronic (5) Compression fracture of body of thoracic vertebra Current Visit: Yes Status: Chronic (6) Anxiety Current Visit: Yes Status: Acute (7) HTN (hypertension) Current Visit: Yes Status: Chronic Qualifiers: Hypertension type: essential hypertension Qualified Code(s): I10 - Essential (primary) hypertension - Time Spent With Patient Total time spent is greater than 50% in coordination of care (as documented) at patient's floor/unit and/or counseling patient: - Constitutional Vitals: Temp Pulse Resp BP Pulse Ox 97.9 F 109 16 169/95 94 06/24/17 14:52 06/24/17 14:52 06/24/17 15:58 06/24/17 14:52 06/24/17 15:58 Internal Medicine: Result - Labs CBC & Chem 7: 06/24/17 06:31 06/24/17 06:31 Labs: Short CBC 06/24/17 Range/Units 06:31 WBC 9.2 (4.3-11.1) K/mcL Hgb 9.1 L (11.5-15.4) g/dL Hct 28.3 L (35.3-44.9) % Plt Count 345 (140-400) K/mcL Neutrophils # 7.7 (1.6-8.9) K/mcL BMP 06/24/17 06:31 Sodium 127 L Potassium 4.0 Chloride 94 L Carbon Dioxide 27 BUN 8 Creatinine 0.31 L Glucose 153 H Calcium 8.8 - Attending Attestation I examined this patient 06/24, and my medical decision-making was reviewed with the Resident Physician. I agree with the documented findings, disposition and treatment plan as described except to the extent set forth below. 61-year-old female with metastatic lung cancer, and recurrent postobstructive pneumonia. Admitted and managed for acute on chronic respiratory failure, and pneumonia. No new complaints. Still has rhonchi no crackles no wheezing. Pulmonary evaluation for possible bronchoscopy, continue current antibiotics, continue other management. Rest of details as in the resident physicians documentation.
[2017-06-24] MEDS ORDERED: Isovue-370 500 ML INFUS..BTL IV ONE (15:57)
[2017-06-24] MEDS: traZODone 50 MG TABLET PO SCH (20:30)
[2017-06-24] MEDS: Melatonin 3 MG TABLET PO SCH (20:30)
[2017-06-24] MEDS ORDERED: Vancomycin 1,000 MG VIAL ONE (22:02)
[2017-06-24] MEDS: *HR* LORazepam 0.5 MG TABLET PO PRN (22:12)
[2017-06-25] MEDS: Cefepime HCl 1,000 MG in Water for inj. (sterile) 20 ML 10 ML IVP SCH ×3 (00:04→16:52)
[2017-06-25] MEDS: methylPREDNISolone 125 MG/2 ML VIAL IVP SCH ×2 (00:04→08:11)
[2017-06-25] MEDS: Ipratropium/Albuterol Neb 3 ML IH SCH ×7 (00:14→23:15)
[2017-06-25] MEDS: *HR* Enoxaparin 40 MG/0.4 ML SYRINGE SQ SCH (05:48)
[2017-06-25 07:45] LABS: BUN/Creatinine Ratio 29 (6-26); Blood Urea Nitrogen 11 mg/dL (8-23); Calcium 8.7 mg/dL (8.6-10.3); Carbon Dioxide 28 mEq/L (23-29); Chloride 93 mEq/L (98-107); Glucose 151 mg/dL (70-105); Osmolality,Calculated 272 (280-300); Potassium 4.1 mEq/L (3.5-5.1); Sodium 130 mEq/L (136-145); eGFR For African Americans > 60 (> 60); eGFR For Non-African Americans > 60 (> 60)
[2017-06-25] MEDS: Budesonide/Formoterol 160/4.5 MDI IH SCH ×2 (07:56→20:14)
[2017-06-25 08:09] LABS: Hemoglobin 8.9 g/dL (11.5-15.4); Mean Corpuscular Hemoglobin 29.1 pg (28.0-33.3); Mean Corpuscular Volume 88.2 fL (83.0-100.0); Mean Platelet Volume 9.1 fL (9.4-12.4); Nucleated Red Blood Cells 0.7 /100 WBC (0); Platelet Count 367 K/mcL (140-400); Red Blood Count 3.06 M/mcL (3.82-4.97)
[2017-06-25] MEDS: clonazePAM 0.5 MG TABLET PO SCH ×2 (08:09→20:27)
[2017-06-25] MEDS: Cholecalciferol (D-3) 1,000 UNIT TABLET PO SCH (08:10)
[2017-06-25 08:31] LABS: Lymphocytes # 0.8 K/mcL (0.6-4.6); Monocytes # 0.6 K/mcL (0.0-1.3); Neutrophils # 8.8 K/mcL (1.6-8.9); Platelet Estimate Normal (Normal)
--- NOTE | 2017-06-25 08:35 | Pulmonology Consult Note ---
Date of Encounter: 06/25/17 Time of Encounter: 08:35 Assessment and Plan (1) Pneumonia Current Visit: No Status: Resolved I have reviewed CT chest results with the patient and there is evidence of improvement and patient clinically also feeling somewhat better and to continue empiric antibiotic and to de-escalate based on the cultures there is no indication for bronchoscopy at this time since patient had a CAT scan shows some improvement. Qualifiers: Pneumonia type: due to unspecified organism Laterality: right Lung location: unspecified part of lung Qualified Code(s): J18.9 - Pneumonia, unspecified organism (2) COPD (chronic obstructive pulmonary disease) Current Visit: No Status: Chronic I doubt this is COPD exacerbation, but rather dyspnea from multiple reasons and patient is having generalized weakness and if possible rehabilitation will be important. Qualifiers: COPD type: unspecified COPD Qualified Code(s): J44.9 - Chronic obstructive pulmonary disease, unspecified (3) Small cell 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 Current Visit: Yes Status: Chronic (4) Mucus plugging of bronchi Current Visit: Yes Status: Chronic Advised nurse taking care of patient to get her Acapella and continue bornchodilaors. Please call for any questions. History of Present Illness Consult date: 06/25/17 Requesting physician: Everette Dick Reason for consult: dyspnea Chief complaint: Shortness of breath History of present illness: This is pleasant 61-year-old female who is known to me and she has history of metastatic lung cancer and also underlying COPD with history of smoking who presented to the hospital with shortness of breath. Patient is being treated for pneumonia and she has had bronchoscopy in the past. Patient is feeling somewhat better today but she still having difficulty with her thick greenish sputum and also she has wheezing and report fever and chills. She is being treated with antibiotics multiple times. Patient has generalized weakness and body aches. Past Med Surg Social Fam HX - Past Medical History Medical history: cancer, COPD, hypertension Psychiatric history: anxiety, depression - Past Surgical History Surgical History: hysterectomy - Social History Smoking Status: Former smoker Smokeless Tobacco Status: No Alcohol use: none Drug use: none - Family History Sister Adopted: No Family Member Ethnicity: Non- Living Status: Still Living Hx Family Cardiac Disorders: Yes (HTN) Hx Family Respiratory Disorders: No Hx Family Cancer: Yes (Lymphoma) Hx Family GI Disorders: No Hx Family Endocrine Disorder: No Hx Family Neuromuscular Disorders: No Hx Family Neurologic Disorders: No Hx Family HEENT Disorders: No Hx Family Autoimmune Disorders: No Hx Family Medical Disorders: Yes (Blood disorder) Mother Family Member Ethnicity: Non- Living Status: Age at : 70 Cause of : abdomina aneurysm Hx Family Cardiac Disorders: Yes (hypertension,) Hx Family Respiratory Disorders: Yes (COPD) Hx Family Cancer: No Hx Family GI Disorders: No Hx Family Endocrine Disorder: No Hx Family Neuromuscular Disorders: No Hx Family Neurologic Disorders: Yes (Alzheimers) Hx Family HEENT Disorders: No Father Adopted: No Family Member Ethnicity: Non- Living Status: Age at : 78 Cause of : NV Hx Family Cardiac Disorders: Yes Hx Family Respiratory Disorders: Yes (mother copd) Hx Family Cancer: No Hx Family GI Disorders: No Hx Family Endocrine Disorder: No Hx Family Neuromuscular Disorders: No Hx Family Neurologic Disorders: No Hx Family HEENT Disorders: No Hx Family Autoimmune Disorders: No Medications and Allergies Trazodone HCl 200 mg PO HS 02/15/16 [History] Albuterol Sulfate [Albuterol Inhaler] 2 puff IH Q6H PRN 10/14/16 [History] Budesonide/Formoterol 160/4.5 [Symbicort 160/4.5] 2 puff IH BIDR 10/14/16 [ History] Oxygen 2 l NS AD 10/14/16 [History] Calcium Carbonate/Vitamin D3 [Calcium 500 + Vit D Caplet] 2 each PO DAILY #60 tablet 12/26/16 [Rx] LORazepam [Ativan] 0.5 mg PO BID PRN 7 Days #14 tablet 05/23/17 [Rx] Omeprazole [PriLOSEC] 20 mg PO DAILY@0630 #30 capsule. 06/03/17 [Rx] Albuterol Neb [Proventil Neb] 2.5 mg IH Q2H PRN #120 inhsol 06/08/17 [Rx] Buspirone HCl [Buspar] 15 mg PO BID #60 tablet 06/08/17 [Rx] DULoxetine [Cymbalta] 30 mg PO HS #30 capsule. 06/08/17 [Rx] Ipratropium/Albuterol Neb [Duoneb] 3 ml IH L3MENCB #160 inhsol 06/08/17 [Rx] Promethazine [Phenergan] 12.5 mg PO ACHS 20 Days #40 tablet 06/08/17 [Rx] Metoprolol [Lopressor] 12.5 mg PO BID PRN MDD SEE NOTE 06/13/17 [History] Potassium Chloride [K-Tab ER] 20 meq PO DAILY 06/13/17 [History] Sucralfate [Carafate] 10 ml PO BID 06/13/17 [History] clonazePAM [Klonopin] 0.5 mg PO BID 06/13/17 [History] Calcium Carbonate [Tums] 1,000 mg PO TID tab.chew 06/16/17 [Rx] Cefdinir [Omnicef] 300 mg PO BID #14 capsule 06/16/17 [Rx] GuaiFENesin ER [Mucinex] 1,200 mg PO BID PRN #60 tbbp.12hr 06/16/17 [Rx] levoFLOXacin [Levaquin] 750 mg PO DAILY #10 tablet 06/16/17 [Rx] OxyCODONE Immed Rel [Roxicodone 10 MG] 10 mg PO TID PRN 30 Days #90 tab [Rx] Prochlorperazine Maleate [Compazine] 10 mg PO Q8HR #90 tablet 06/18/17 [Rx] Melatonin [Melatin] 3 mg PO HS 06/21/17 [History] 3 Allergy/AdvReac Type Severity Reaction Status Date / Time No Known Allergies Allergy Verified 06/13/17 17:07 All Systems: The remainder of the systems were reviewed and are negative Physical Examination Vital Signs: Vital Signs, Last 4 Hours Temp Pulse Resp BP Pulse Ox 06/25/17 07:57 16 98 06/25/17 07:14 97.9 F 110 16 140/85 93 General appearance: appears uncomfortable Eyes: nonicteric ENT: oropharynx moist Neck: supple Effort: mildly labored Inspection: hyperextended Auscultation: bilateral: diminished breath sounds Percussion: bilateral: not dull Cardiovascular: regular rate and rhythm Gastrointestinal: normoactive bowel sounds, non-distended Extremities: no cyanosis normal mental status, non-focal exam depressed Results - Laboratory Findings CBC and BMP: 06/25/17 07:04 06/25/17 07:04 Abnormal lab findings: Abnormal lab results RBC 3.06 M/mcL (3.82-4.97) L 06/25/17 07:04 Hgb 8.9 g/dL (11.5-15.4) L 06/25/17 07:04 Hct 27.0 % (35.3-44.9) L 06/25/17 07:04 MPV 9.1 fL (9.4-12.4) L 06/25/17 07:04 Nucleated RBCs/100 WBC 0.7 /100 WBC (0) H 06/25/17 07:04 Sodium 130 mEq/L (136-145) L 06/25/17 07:04 Chloride 93 mEq/L (98-107) L 06/25/17 07:04 Creatinine 0.38 mg/dL (0.60-1.20) L 06/25/17 07:04 BUN/Creatinine Ratio 29 (6-26) H 06/25/17 07:04 Glucose 151 mg/dL (70-105) H 06/25/17 07:04 Calculated Osmolality 272 (280-300) L 06/25/17 07:04 Total Bilirubin 0.2 mg/dL (0.3-1.0) L 06/22/17 05:23 AST 12 Units/L (13-39) L 06/22/17 05:23 Serum Total Protein 5.2 g/dL (6.4-8.9) L 06/22/17 05:23 Albumin 2.7 g/dL (3.5-5.7) L 06/22/17 05:23 Ur Leukocyte Esterase Small (Negative) H 06/21/17 18:50 Urine Microscopic WBC 5-15 per hpf (0-3) H 06/21/17 18:50 Ur Squamous Epith Cells Many per lpf (None-Few) H 06/21/17 18:50 Ur Culture Indicated? NO. (NO) A 06/21/17 18:50 - Diagnostic Findings CT scan - chest: report reviewed, image reviewed - Clinical Findings Intake & Output: Intake & Output 06/24/17 06/25/17 06/25/17 23:59 07:59 15:59 Intake Total 360 / 360 185 / 185 0 / 0 Output Total 300 / 300 800 / 800 Balance 60 / 60 -615 / -615 0 / 0 Weight 44.4 kg Consult Discharge Plan - Plan Referrals: Ron Ward MD [Primary Care Provider] -
[2017-06-25] MEDS: *HR* OxyCODONE Immed Rel 5 MG TABLET PO PRN ×2 (09:21→16:52)
--- NOTE | 2017-06-25 09:56 | Internal Med Progress Note ---
<Roberto Cardoso - Last Filed: 06/25/17 09:51> Date of Encounter: 06/25/17 Time of Encounter: 09:52 - Assessment and plan (1) Acute and chronic respiratory failure ([id number]) Current Visit: Yes Status: Acute Assessment and plan: Secondary to COPD exacerbation and pneumonia in setting of small cell lung cancer Due to her recurrent admissions for pneumonia and poor prognosis 2nd to lung cancer hospice was discussed with patient However patient refused hospice. CT chest shows improved multifocal tree-in-bud abnormality and resolving infection. There is no new consolidated pneumonia. At this point we will continue IV antibiotics, steroids. Qualifiers: Respiratory failure complication: hypoxia Qualified Code(s): J96.21 - Acute and chronic respiratory failure with hypoxia (2) Acute exacerbation of COPD with asthma Current Visit: Yes Status: Acute Assessment and plan: Secondary to pneumonia in setting of small cell lung cancer Patient's breathing is improved she is not on 2 L oxygen therapy. Plan to continue antibiotics, DuoNeb's, steroids. (3) Healthcare-associated pneumonia Current Visit: Yes Assessment and plan: Continue IV vancomycin and cefepime day 4 (total 7 day treatment) Failed outpatient therapy. Initial peripheral blood cultures negative. (4) Small cell 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 Current Visit: Yes Status: Chronic Assessment and plan: history of lung cancer, bone and the brain metastasis. Palliative care consulted. Patient rejected hospice care at this time. - DNR CCA (5) Compression fracture of body of thoracic vertebra Current Visit: Yes Status: Chronic Assessment and plan: Stable. Continue pain control. (6) Anxiety Current Visit: Yes Status: Acute Assessment and plan: Stable. Continue Klonopin and Cymbalta. (7) HTN (hypertension) Current Visit: Yes Status: Chronic Assessment and plan: Stable. Continue home medication. Qualifiers: Hypertension type: essential hypertension Qualified Code(s): I10 - Essential (primary) hypertension - Time Spent With Patient Total time spent is greater than 50% in coordination of care (as documented) at patient's floor/unit and/or counseling patient: - Subjective Interval history: Patient states today her breathing is much better. She denies headache, chest pain, abdominal pain. She is tolerating her diet. She only requires 2 L oxygen. - Constitutional Vitals: Temp Pulse Resp BP Pulse Ox 97.9 F 110 16 140/85 98 06/25/17 07:14 06/25/17 07:14 06/25/17 07:57 06/25/17 07:14 06/25/17 07:57 General appearance: Present: cachectic, underweight - Other Additional findings: General: Pleasant without distress Heart: sinus tachycardia Lungs: Diffuse rhonchi bilaterally but improved from yesterday Abdomen: Soft nontender, nondistended positive bowel sounds Skin: warm and dry, absent rash Extremities: Absent pedal edema, Neuro: Alert oriented 3 Vascular: Pedal and radial pulses 2 out of 4 Internal Medicine: Result - Labs CBC & Chem 7: 06/25/17 07:04 06/25/17 07:04 Labs: Short CBC 06/25/17 Range/Units 07:04 WBC 10.2 (4.3-11.1) K/mcL Hgb 8.9 L (11.5-15.4) g/dL Hct 27.0 L (35.3-44.9) % Plt Count 367 (140-400) K/mcL Neutrophils # 8.8 (1.6-8.9) K/mcL BMP 06/25/17 07:04 Sodium 130 L Potassium 4.1 Chloride 93 L Carbon Dioxide 28 BUN 11 Creatinine 0.38 L Glucose 151 H Calcium 8.7 - Impressions Impressions Chest CT 06/24/17 15:57 IMPRESSION: Improving multifocal tree-in-bud abnormality throughout both lungs, likely resolving infectious or inflammatory bronchiolitis. No new consolidative pneumonia. No evidence of an acute pulmonary embolism within the central pulmonary arterial tree on this limited exam. Mixed treatment response compared with prior exam, including decreased mediastinal/hilar lymphadenopathy and soft tissue thickening but increased upper abdominal lymphadenopathy and hepatic metastases. Advanced emphysema with diffuse airway inflammation. Scattered areas of small airway mucoid impaction persist, including occlusion of the middle lobe bronchus. D/ / 06/25/2017 07:39:04 Migel Stringer / arnulfo Interpreting Provider: Migel Stringer Consult Discharge Plan - Plan Referrals: Ron Ward MD [Primary Care Provider] - <Everette Dick T - Last Filed: 06/25/17 12:42> Date of Encounter: 06/25/17 - Assessment and plan (1) Acute exacerbation of COPD with asthma Current Visit: Yes Status: Acute (2) Acute and chronic respiratory failure ([id number]) Current Visit: Yes Status: Acute Qualifiers: Respiratory failure complication: hypoxia Qualified Code(s): J96.21 - Acute and chronic respiratory failure with hypoxia (3) Healthcare-associated pneumonia Current Visit: Yes (4) Small cell 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 Current Visit: Yes Status: Chronic (5) Compression fracture of body of thoracic vertebra Current Visit: Yes Status: Chronic (6) Anxiety Current Visit: Yes Status: Acute (7) HTN (hypertension) Current Visit: Yes Status: Chronic Qualifiers: Hypertension type: essential hypertension Qualified Code(s): I10 - Essential (primary) hypertension - Time Spent With Patient Total time spent is greater than 50% in coordination of care (as documented) at patient's floor/unit and/or counseling patient: - Constitutional Vitals: Temp Pulse Resp BP Pulse Ox 98.2 F 95 16 152/98 93 06/25/17 11:14 06/25/17 11:14 06/25/17 11:14 06/25/17 11:14 06/25/17 11:14 Internal Medicine: Result - Labs CBC & Chem 7: 06/25/17 07:04 06/25/17 07:04 Labs: Short CBC 06/25/17 Range/Units 07:04 WBC 10.2 (4.3-11.1) K/mcL Hgb 8.9 L (11.5-15.4) g/dL Hct 27.0 L (35.3-44.9) % Plt Count 367 (140-400) K/mcL Neutrophils # 8.8 (1.6-8.9) K/mcL BMP 06/25/17 07:04 Sodium 130 L Potassium 4.1 Chloride 93 L Carbon Dioxide 28 BUN 11 Creatinine 0.38 L Glucose 151 H Calcium 8.7 - Impressions Impressions Chest CT 06/24/17 15:57 IMPRESSION: Improving multifocal tree-in-bud abnormality throughout both lungs, likely resolving infectious or inflammatory bronchiolitis. No new consolidative pneumonia. No evidence of an acute pulmonary embolism within the central pulmonary arterial tree on this limited exam. Mixed treatment response compared with prior exam, including decreased mediastinal/hilar lymphadenopathy and soft tissue thickening but increased upper abdominal lymphadenopathy and hepatic metastases. Advanced emphysema with diffuse airway inflammation. Scattered areas of small airway mucoid impaction persist, including occlusion of the middle lobe bronchus. D/ / 06/25/2017 07:39:04 Migel Stringer / arnulfo Interpreting Provider: Migel Stringer - Attending Attestation I examined this patient 06/25, and my medical decision-making was reviewed with the Resident Physician. I agree with the documented findings, disposition and treatment plan as described except to the extent set forth below. 61-year-old female with metastatic lung cancer, and recurrent postobstructive pneumonia. Admitted and managed for acute on chronic respiratory failure, and pneumonia. No new complaints. She looks clinicaly improved, chest exam with minial improevd air entry, however , patient is not in respiratory distress. Repeat chest CAT scan shows improvement in pneumonia. Pulmonary evaluation notedno intervention. Plan is to continue current antibiotics, continue other management. Rest of details as in the resident physicians documentation.
[2017-06-25] MEDS: *HR* LORazepam 0.5 MG TABLET PO PRN ×2 (12:34→20:30)
--- NOTE | 2017-06-25 13:52 | Event Note ---
Date of Encounter: 06/25/17 Time of Encounter: 13:40 Patient up on side of bed. States feels drowsy today. Denies any complaints. Pain and nausea under good control. CT chest noted. She continues with IV antibiotic therapy. Patient still declines hospice and desires home health upon discharge. Palliative will follow at a distance.
--- NOTE | 2017-06-25 15:24 | Electrocardiograph Report ---
[place] [id number] Test Date: 2017-06-21 Pat Name: Domi Keenan Department: 104 Room: 2NE27 Gender: F Records Management Specialist: GAUDENCIO : [id number] Requested By: Gab Mackey Order Number: [id number] Reading MD: Damian Shane Measurements Intervals [place] Rate: 132 P: 61 WY: 138 QRS: -24 QRSD: 76 T: 68 QT: 284 QTc: 362 Interpretive Statements SINUS TACHYCARDIA BORDERLINE LEFT AXIS DEVIATION Electronically Signed On 06-25-2017 15:22:47 EDT by Damian Shane
[2017-06-25] MEDS: MethylPREDNISolone 40 MG/ML VIAL IVP SCH (16:52)
[2017-06-25] MEDS: traZODone 50 MG TABLET PO SCH (20:27)
[2017-06-25] MEDS: Melatonin 3 MG TABLET PO SCH (20:28)
[2017-06-26] MEDS: MethylPREDNISolone 40 MG/ML VIAL IVP SCH ×3 (00:21→14:54)
[2017-06-26] MEDS: Cefepime HCl 1,000 MG in Water for inj. (sterile) 20 ML 10 ML IVP SCH ×4 (00:21→23:58)
[2017-06-26] MEDS: Ipratropium/Albuterol Neb 3 ML IH SCH ×5 (03:34→20:10)
[2017-06-26] MEDS: *HR* Enoxaparin 40 MG/0.4 ML SYRINGE SQ SCH (05:58)
[2017-06-26] MEDS: Budesonide/Formoterol 160/4.5 MDI IH SCH ×2 (07:38→20:10)
[2017-06-26] MEDS: Cholecalciferol (D-3) 1,000 UNIT TABLET PO SCH (08:02)
[2017-06-26] MEDS: clonazePAM 0.5 MG TABLET PO SCH ×2 (08:03→19:47)
--- NOTE | 2017-06-26 09:20 | Internal Med Progress Note ---
<Roberto Cardoso - Last Filed: 06/26/17 09:18> Date of Encounter: 06/26/17 Time of Encounter: 09:18 - Assessment and plan (1) Acute and chronic respiratory failure ([id number]) Current Visit: Yes Status: Acute Assessment and plan: Secondary to COPD exacerbation and pneumonia in setting of small cell lung cancer her respiratory status continues to improve. We will continue IV antibiotics as she failed outpatient therapy. high risk of readmission. At this point we will continue IV antibiotics, steroids. Qualifiers: Respiratory failure complication: hypoxia Qualified Code(s): J96.21 - Acute and chronic respiratory failure with hypoxia (2) Acute exacerbation of COPD with asthma Current Visit: Yes Status: Acute Assessment and plan: Secondary to pneumonia in setting of small cell lung cancer Patient's breathing is improved she is on 2 L oxygen therapy. Plan to continue antibiotics, DuoNeb's, steroids. (3) Healthcare-associated pneumonia Current Visit: Yes Assessment and plan: Continue IV vancomycin and cefepime day 5 (total 7 day treatment) Failed outpatient therapy. Initial peripheral blood cultures negative. (4) Small cell 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 Current Visit: Yes Status: Chronic Assessment and plan: history of lung cancer, bone and the brain metastasis. Palliative care consulted. Patient rejected hospice care at this time. - DNR CCA (5) Compression fracture of body of thoracic vertebra Current Visit: Yes Status: Chronic Assessment and plan: Stable. pain controlled. Continue pain control. (6) Anxiety Current Visit: Yes Status: Acute Assessment and plan: Stable. denies anxiety Continue Klonopin and Cymbalta. (7) HTN (hypertension) Current Visit: Yes Status: Chronic Assessment and plan: Stable. Continue home medication. Qualifiers: Hypertension type: essential hypertension Qualified Code(s): I10 - Essential (primary) hypertension - Time Spent With Patient Total time spent is greater than 50% in coordination of care (as documented) at patient's floor/unit and/or counseling patient: - Subjective Interval history: Patient reports coughing and shortness breath improved. She denies any overnight complaints. She does not have headache, chest pain, abdominal pain. She is tolerating her diet. - Constitutional Vitals: Temp Pulse Resp BP Pulse Ox 97.7 F 86 18 145/94 94 06/26/17 06:50 06/26/17 06:50 06/26/17 07:38 06/26/17 06:50 06/26/17 07:38 General appearance: Present: cachectic, underweight - Other Additional findings: General: Pleasant without distress Heart: rrr no murmur Lungs: mild ronchi diminished breath sounds Abdomen: Soft nontender, nondistended positive bowel sounds Skin: warm and dry, absent rash Extremities: Absent pedal edema, Neuro: Alert oriented 3 Vascular: Pedal and radial pulses 2 out of 4 Internal Medicine: Result - Labs CBC & Chem 7: 06/25/17 07:04 06/25/17 07:04 - Impressions Impressions Chest CT 06/24/17 15:57 IMPRESSION: Improving multifocal tree-in-bud abnormality throughout both lungs, likely resolving infectious or inflammatory bronchiolitis. No new consolidative pneumonia. No evidence of an acute pulmonary embolism within the central pulmonary arterial tree on this limited exam. Mixed treatment response compared with prior exam, including decreased mediastinal/hilar lymphadenopathy and soft tissue thickening but increased upper abdominal lymphadenopathy and hepatic metastases. Advanced emphysema with diffuse airway inflammation. Scattered areas of small airway mucoid impaction persist, including occlusion of the middle lobe bronchus. D/ / 06/25/2017 07:39:04 Migel Stringer / arnulfo Interpreting Provider: Migel Stringer Consult Discharge Plan - Plan Referrals: Ron Ward MD [Primary Care Provider] - <Everette Dick - Last Filed: 06/26/17 13:18> Date of Encounter: 06/26/17 - Assessment and plan (1) Acute exacerbation of COPD with asthma Current Visit: Yes Status: Acute (2) Acute and chronic respiratory failure ([id number]) Current Visit: Yes Status: Acute Qualifiers: Respiratory failure complication: hypoxia Qualified Code(s): J96.21 - Acute and chronic respiratory failure with hypoxia (3) Healthcare-associated pneumonia Current Visit: Yes (4) Small cell 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 Current Visit: Yes Status: Chronic (5) Compression fracture of body of thoracic vertebra Current Visit: Yes Status: Chronic (6) Anxiety Current Visit: Yes Status: Acute (7) HTN (hypertension) Current Visit: Yes Status: Chronic Qualifiers: Hypertension type: essential hypertension Qualified Code(s): I10 - Essential (primary) hypertension - Time Spent With Patient Total time spent is greater than 50% in coordination of care (as documented) at patient's floor/unit and/or counseling patient: - Constitutional Vitals: Temp Pulse Resp BP Pulse Ox 98.3 F 93 18 139/76 95 06/26/17 11:10 06/26/17 11:10 06/26/17 11:46 06/26/17 11:10 06/26/17 11:46 Internal Medicine: Result - Labs CBC & Chem 7: 06/25/17 07:04 06/25/17 07:04 - Impressions Impressions Chest CT 06/24/17 15:57 IMPRESSION: Improving multifocal tree-in-bud abnormality throughout both lungs, likely resolving infectious or inflammatory bronchiolitis. No new consolidative pneumonia. No evidence of an acute pulmonary embolism within the central pulmonary arterial tree on this limited exam. Mixed treatment response compared with prior exam, including decreased mediastinal/hilar lymphadenopathy and soft tissue thickening but increased upper abdominal lymphadenopathy and hepatic metastases. Advanced emphysema with diffuse airway inflammation. Scattered areas of small airway mucoid impaction persist, including occlusion of the middle lobe bronchus. D/ / 06/25/2017 07:39:04 Migel Stringer / arnulfo Interpreting Provider: Migel Stringer - Attending Attestation I examined this patient 06/26, and my medical decision-making was reviewed with the Resident Physician. I agree with the documented findings, disposition and treatment plan as described except to the extent set forth below. 61-year-old female with metastatic lung cancer, and recurrent postobstructive pneumonia. Admitted and managed for acute on chronic respiratory failure, and pneumonia. No new complaints. She looks clinically improved, chest exam with improved air entry, however, patient is not in respiratory distress. Repeat chest CAT scan shows improvement in pneumonia. Pulmonary evaluation noted, no intervention. Plan is to continue current antibiotics, continue other management. We will discharge on prolonged steroid taper after completion of antibiotics Rest of details as in the resident physicians documentation.
[2017-06-26] MEDS: *HR* LORazepam 0.5 MG TABLET PO PRN ×2 (10:54→19:50)
[2017-06-26] MEDS: *HR* OxyCODONE Immed Rel 5 MG TABLET PO PRN ×2 (10:54→14:53)
[2017-06-26] MEDS: traZODone 50 MG TABLET PO SCH (19:46)
[2017-06-26] MEDS: Melatonin 3 MG TABLET PO SCH (19:47)
[2017-06-27] MEDS: Ipratropium/Albuterol Neb 3 ML IH SCH ×7 (00:41→23:13)
[2017-06-27] MEDS: *HR* Enoxaparin 40 MG/0.4 ML SYRINGE SQ SCH (06:06)
[2017-06-27] MEDS: Budesonide/Formoterol 160/4.5 MDI IH SCH ×2 (07:48→19:43)
[2017-06-27] MEDS: Cholecalciferol (D-3) 1,000 UNIT TABLET PO SCH (07:58)
[2017-06-27] MEDS: Cefepime HCl 1,000 MG in Water for inj. (sterile) 20 ML 10 ML IVP SCH ×2 (07:59→14:43)
[2017-06-27] MEDS: clonazePAM 0.5 MG TABLET PO SCH ×2 (07:59→20:38)
--- NOTE | 2017-06-27 08:05 | Event Note ---
Date of Encounter: 06/27/17 Time of Encounter: 06:45 Patient is doing quite well this morning she informs me that she may very well build get out of here tomorrow. As has already been noted in my notes, the patient is well aware that she is hospice eligible and she will avail herself of that when she feels that this is appropriate. Status is DNR CCA short-term intubation is okay, and she informs me that she has formed her of this. Stands with her, and understands not to do trach or pain. States DNR forms are on the chart as well as orders put in the computer, appendectomy of [facility] was also provided to the patient. Palliative care continues to follow at a distance.
[2017-06-27] MEDS ORDERED: predniSONE 20 MG TABLET PO SCH (09:30)
--- NOTE | 2017-06-27 09:58 | Internal Med Progress Note ---
<Roberto Cardoso - Last Filed: 06/27/17 10:34> Date of Encounter: 06/27/17 Time of Encounter: 09:55 - Assessment and plan (1) Acute exacerbation of COPD with asthma Current Visit: Yes Status: Acute Assessment and plan: Secondary to pneumonia in setting of small cell lung cancer her respiratory status continues to improve. we will continue to treat with steroids, nebulizer and antibiotics. (2) Acute and chronic respiratory failure ([id number]) Current Visit: Yes Status: Acute Assessment and plan: Secondary to COPD exacerbation and pneumonia in setting of small cell lung cancer plan as above Qualifiers: Respiratory failure complication: hypoxia Qualified Code(s): J96.21 - Acute and chronic respiratory failure with hypoxia (3) Healthcare-associated pneumonia Current Visit: Yes Assessment and plan: Continue IV vancomycin and cefepime day 6 (total 7 day treatment) Failed outpatient therapy. Initial peripheral blood cultures negative. (4) Small cell 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 Current Visit: Yes Status: Chronic Assessment and plan: history of lung cancer, bone and the brain metastasis. Palliative care consulted. Patient rejected hospice care at this time. - DNR CCA (5) Compression fracture of body of thoracic vertebra Current Visit: Yes Status: Chronic Assessment and plan: Stable. pain controlled. Continue pain control. Code(s): M48.54XA - Collapsed vertebra, not elsewhere classified, thoracic region, initial encounter for fracture (6) Anxiety Current Visit: Yes Status: Acute Assessment and plan: Stable. denies anxiety Continue Klonopin and Cymbalta. (7) HTN (hypertension) Current Visit: Yes Status: Chronic Assessment and plan: Stable. Continue home medication. Qualifiers: Hypertension type: essential hypertension Qualified Code(s): I10 - Essential (primary) hypertension - Time Spent With Patient Total time spent is greater than 50% in coordination of care (as documented) at patient's floor/unit and/or counseling patient: - Subjective Interval history: She denies any overnight complaints. She does not have headache, chest pain, abdominal pain. She is tolerating her diet. - Constitutional Vitals: Temp Pulse Resp BP Pulse Ox 97.8 F 88 16 131/82 97 06/27/17 06:48 06/27/17 06:48 06/27/17 07:48 06/27/17 06:48 06/27/17 09:34 General appearance: Present: cachectic, underweight - Other Additional findings: General: Pleasant without distress Heart: rrr no murmur Lungs: diminished breath sounds Abdomen: Soft nontender, nondistended positive bowel sounds Skin: warm and dry, absent rash Extremities: Absent pedal edema, Neuro: Alert oriented 3 Vascular: Pedal and radial pulses 2 out of 4 Internal Medicine: Result - Labs CBC & Chem 7: 06/25/17 07:04 06/25/17 07:04 Consult Discharge Plan - Plan Referrals: Ron Ward MD [Primary Care Provider] - <Mart Dickaju Peggy - Last Filed: 06/27/17 16:44> Date of Encounter: 06/27/17 - Assessment and plan (1) Acute exacerbation of COPD with asthma Current Visit: Yes Status: Acute (2) Acute and chronic respiratory failure ([id number]) Current Visit: Yes Status: Acute Qualifiers: Respiratory failure complication: hypoxia Qualified Code(s): J96.21 - Acute and chronic respiratory failure with hypoxia (3) Healthcare-associated pneumonia Current Visit: Yes (4) Small cell 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 Current Visit: Yes Status: Chronic (5) Compression fracture of body of thoracic vertebra Current Visit: Yes Status: Chronic Code(s): M48.54XA - Collapsed vertebra, not elsewhere classified, thoracic region, initial encounter for fracture (6) Anxiety Current Visit: Yes Status: Acute (7) HTN (hypertension) Current Visit: Yes Status: Chronic Qualifiers: Hypertension type: essential hypertension Qualified Code(s): I10 - Essential (primary) hypertension - Time Spent With Patient Total time spent is greater than 50% in coordination of care (as documented) at patient's floor/unit and/or counseling patient: - Constitutional Vitals: Temp Pulse Resp BP Pulse Ox 97.7 F 87 16 132/85 92 06/27/17 10:55 06/27/17 10:55 06/27/17 15:19 06/27/17 10:55 06/27/17 15:19 Internal Medicine: Result - Labs CBC & Chem 7: 06/25/17 07:04 06/25/17 07:04 - Attending Attestation I examined this patient and my medical decision-making was reviewed with the Resident Physician on 06/27/17. I agree with the documented findings, disposition and treatment plan as described except to the extent set forth below.
[2017-06-27] MEDS: *HR* LORazepam 0.5 MG TABLET PO PRN ×2 (10:56→14:43)
[2017-06-27] MEDS: *HR* OxyCODONE Immed Rel 5 MG TABLET PO PRN ×2 (10:57→14:43)
[2017-06-27] MEDS ORDERED: Aminoglycoside Consult 1 EACH MC ONE (12:17)
[2017-06-27] MEDS: Melatonin 3 MG TABLET PO SCH (20:38)
[2017-06-27] MEDS: traZODone 50 MG TABLET PO SCH (20:38)
[2017-06-28] MEDS: Cefepime HCl 1,000 MG in Water for inj. (sterile) 20 ML 10 ML IVP SCH ×2 (00:19→11:39)
[2017-06-28] MEDS: Ipratropium/Albuterol Neb 3 ML IH SCH ×3 (03:52→11:04)
[2017-06-28] MEDS: *HR* Enoxaparin 40 MG/0.4 ML SYRINGE SQ SCH (06:00)
[2017-06-28 07:16] VITALS: BP 143/89
[2017-06-28] MEDS: Budesonide/Formoterol 160/4.5 MDI IH SCH (07:39)
[2017-06-28] MEDS ORDERED: predniSONE 20 MG TABLET PO SCH (09:00)
[2017-06-28] MEDS: *HR* OxyCODONE Immed Rel 5 MG TABLET PO PRN (09:01)
[2017-06-28] MEDS: Cholecalciferol (D-3) 1,000 UNIT TABLET PO SCH (09:03)
[2017-06-28] MEDS: clonazePAM 0.5 MG TABLET PO SCH (09:03)
--- NOTE | 2017-06-28 10:07 | Discharge Summary ---
<Roberto Cardoso - Last Filed: 06/28/17 09:57> Date of Encounter: 06/28/17 Time of Encounter: 09:57 - Discharge Diagnosis (1) Acute and chronic respiratory failure ([id number]) Priority: Primary Status: Resolved Qualifiers: Respiratory failure complication: hypoxia Qualified Code(s): J96.21 - Acute and chronic respiratory failure with hypoxia (2) Acute exacerbation of COPD with asthma Priority: Secondary Status: Resolved Assessment and Plan: Secondary to pneumonia in setting of small cell lung cancer patient treated with 7 days of IV antibioitcs and steroids. being discharged on long steroid taper. (3) Healthcare-associated pneumonia Priority: Secondary (4) Small cell 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 Priority: Secondary Status: Chronic Assessment and Plan: history of lung cancer, bone and the brain metastasis. Oncology has told patient no more treatment is available at this point. Palliative care consulted. Patient rejected hospice care at this time. - DNR CCA (5) Compression fracture of body of thoracic vertebra Priority: Secondary Status: Chronic Code(s): M48.54XA - Collapsed vertebra, not elsewhere classified, thoracic region, initial encounter for fracture (6) Anxiety Priority: Secondary Status: Acute (7) HTN (hypertension) Priority: Secondary Status: Chronic Qualifiers: Hypertension type: essential hypertension Qualified Code(s): I10 - Essential (primary) hypertension Hospital course: Ms. Keenan is a 61 year old female presented with chief complaint shortness of breath. Patient has a history of stage IV small cell lung cancer and has been admitted to the hospital multiple times for pneumonia and COPD exacerbation. During this visit patient was diagnosed with pneumonia and treated with 7 days of IV antibiotics. Blood cultures are negative. Patient underwent CT scan which showed improvement in her infiltrates. Pulmonology was consulted for possible bronchoscopy however this is deferred as CT of the chest did not show any obstruction, mucous plugging. Patient was also started on IV steroids and DuoNebs. Her respirations status improved and she is back on her 2 L home oxygen. Patient is tolerating her diet and is ambulating independently. She will be discharged with a long steroid taper. She will follow up with her PCP. Discharge discussed with: patient - Time Spent with Patient Total time spent providing and/or coordinating discharge services: - Discharge Medications Prescriptions: Cholecalciferol (D-3) [Vitamin D] 1,000 unit PO DAILY #30 tablet predniSONE [PredniSONE] 10 mg PO TAPER #70 tablet Home Medications: Trazodone HCl 200 mg PO HS 02/15/16 [History] Albuterol Sulfate [Albuterol Inhaler] 2 puff IH Q6H PRN 10/14/16 [History] Budesonide/Formoterol 160/4.5 [Symbicort 160/4.5] 2 puff IH BIDR 10/14/16 [ History] Oxygen 2 l NS AD 10/14/16 [History] Calcium Carbonate/Vitamin D3 [Calcium 500 + Vit D Caplet] 2 each PO DAILY #60 tablet 12/26/16 [Rx] LORazepam [Ativan] 0.5 mg PO BID PRN 7 Days #14 tablet 05/23/17 [Rx] Omeprazole [PriLOSEC] 20 mg PO DAILY@0630 #30 capsule. 06/03/17 [Rx] Albuterol Neb [Proventil Neb] 2.5 mg IH Q2H PRN #120 inhsol 06/08/17 [Rx] Buspirone HCl [Buspar] 15 mg PO BID #60 tablet 06/08/17 [Rx] DULoxetine [Cymbalta] 30 mg PO HS #30 capsule. 06/08/17 [Rx] Ipratropium/Albuterol Neb [Duoneb] 3 ml IH [id number] #160 inhsol 06/08/17 [Rx] Promethazine [Phenergan] 12.5 mg PO ACHS 20 Days #40 tablet 06/08/17 [Rx] Metoprolol [Lopressor] 12.5 mg PO BID PRN MDD SEE NOTE 06/13/17 [History] Potassium Chloride [K-Tab ER] 20 meq PO DAILY 06/13/17 [History] Sucralfate [Carafate] 10 ml PO BID 06/13/17 [History] clonazePAM [Klonopin] 0.5 mg PO BID 06/13/17 [History] Calcium Carbonate [Tums] 1,000 mg PO TID tab.chew 06/16/17 [Rx] GuaiFENesin ER [Mucinex] 1,200 mg PO BID PRN #60 tbbp.12hr 06/16/17 [Rx] OxyCODONE Immed Rel [Roxicodone 10 MG] 10 mg PO TID PRN 30 Days #90 tab [Rx] Prochlorperazine Maleate [Compazine] 10 mg PO Q8HR #90 tablet 06/18/17 [Rx] Melatonin [Melatin] 3 mg PO HS 06/21/17 [History] Cholecalciferol (D-3) [Vitamin D] 1,000 unit PO DAILY #30 tablet 06/28/17 [Rx] predniSONE [PredniSONE] 10 mg PO TAPER #70 tablet 06/28/17 [Rx] Allergies/Adverse Reactions: 3 Allergy/AdvReac Type Severity Reaction Status Date / Time No Known Allergies Allergy Verified 06/13/17 17:07 Date of admission: 06/21/17 19:44 Primary care physician: Ron Ward MD Consults: 06/21/17 19:47 Consult to Pulmonology [CONS] Routine Consulting Provider: Pulm Crit [facility] Reason for Consult: acute on chronic respiratory failure lung cancer Call Completed: No 06/21/17 19:48 Consult to Palliative Care [CONS] Routine Comment: Consulting Provider: Palliative Care Reading Reason for Consult: stage v lung cancer with pneumonia and copd exercebation Call Completed: No 06/23/17 12:03 PT [Consult to Physical Therapy] [CONS] Routine Comment: Evaluate, develop and implement POC Reason for Consult: weakness Does patient have active BEDREST order?: No Is patient medically & hemodynamically stable?: Yes Patient assessed for mobility or mobilized this visit?: No 06/25/17 11:56 Consult to Invasive Line Access Team [CONS] Routine Reason for Consult: Poor vascular access Line Type: EPIV Discharging clinician: Roberto Cardoso - Constitutional Vitals: Temp Pulse Resp BP Pulse Ox 98 F 97 20 143/89 95 06/28/17 07:15 06/28/17 07:15 06/28/17 07:39 06/28/17 07:15 06/28/17 07:39 General appearance: Present: cachectic, underweight - Other Additional findings: General: without distress HEENT: Head atraumatic, normocephalic, EOMI, PERRL, neck nontender to palpation , absent lymphadenopathy, Moist Mucous Membranes, Heart: Regular rate and rhythm with no murmur Lungs: b/l ronchi diminished abent wheezing Abdomen: Soft nontender, nondistended positive bowel sounds Skin: warm and dry, absent rash Extremities: Absent pedal edema, Neuro: alert oriented x 3 Vascular: Pedal and radial pulses 2 out of 4 - Patient Status Disposition: Home Health Service Condition: Fair Functional capacity at discharge: independent ambulation Overall status at discharge: patient is progressing back to baseline - Discharge Instructions Instructions: Prednisone (By mouth), Vitamin D (By mouth), Acute Respiratory Distress Syndrome (DC), Chronic Obstructive Pulmonary Disease (DC) Follow Up With: Ron Ward MD [Primary Care Provider] - 07/02/17 3:00 pm Additional Instructions: Continue Reading Home Health, and [facility] Home oxygen as you were before. - Diet and Activity Activity: increase activity as tolerated, wear oxygen at all times (2L) Diet: advance to your usual diet <Everette Dick - Last Filed: 06/28/17 12:10> Date of Encounter: 06/28/17 - Discharge Diagnosis (1) Acute exacerbation of COPD with asthma Status: Resolved (2) Acute and chronic respiratory failure ([id number]) Status: Resolved Qualifiers: Respiratory failure complication: hypoxia Qualified Code(s): J96.21 - Acute and chronic respiratory failure with hypoxia (3) Healthcare-associated pneumonia (4) 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 (5) Compression fracture of body of thoracic vertebra Status: Chronic Code(s): M48.54XA - Collapsed vertebra, not elsewhere classified, thoracic region, initial encounter for fracture (6) Anxiety Status: Chronic (7) HTN (hypertension) Status: Chronic Qualifiers: Hypertension type: essential hypertension Qualified Code(s): I10 - Essential (primary) hypertension Hospital course: Ms. Keenan is a 61 year old female Discharge discussed with: nurse, case management - Time Spent with Patient Total time spent providing and/or coordinating discharge services: Greater than 30 minutes Date of admission: 06/21/17 19:44 Primary care physician: Ron Ward MD Consults: 06/21/17 19:47 Consult to Pulmonology [CONS] Routine Consulting Provider: Pulm Crit [facility] Reason for Consult: acute on chronic respiratory failure lung cancer Call Completed: No 06/21/17 19:48 Consult to Palliative Care [CONS] Routine Comment: Consulting Provider: Palliative Care Reading Reason for Consult: stage v lung cancer with pneumonia and copd exercebation Call Completed: No 06/23/17 12:03 PT [Consult to Physical Therapy] [CONS] Routine Comment: Evaluate, develop and implement POC Reason for Consult: weakness Does patient have active BEDREST order?: No Is patient medically & hemodynamically stable?: Yes Patient assessed for mobility or mobilized this visit?: No 06/25/17 11:56 Consult to Invasive Line Access Team [CONS] Routine Reason for Consult: Poor vascular access Line Type: EPIV - Constitutional Vitals: Temp Pulse Resp BP Pulse Ox 98 F 97 18 143/89 95 06/28/17 07:15 06/28/17 07:15 06/28/17 11:04 06/28/17 07:15 06/28/17 11:04 - Attending Attestation I examined this patient and my medical decision-making was reviewed with the Resident Physician on 06/28/17. I agree with the documented findings, disposition and treatment plan as described except to the extent set forth below. Completed treatment for HCAP, COPDE, with underlying metastatic Lung CA. Safe to be discharged home with prolonged steroid taper
--- NOTE | 2017-06-28 10:10 | Event Note ---
Date of Encounter: 06/28/17 Time of Encounter: 10:00 The patient's CODE STATUS is well established at DNR comfort care arrest, short- term intubation is okay but no tracheal pain. The patient understands that her cancer is extremely serious and that the repeat infections are just showing that her body is wearing out. However she has put it numerous times in the past to me her goal of care is her grandson. I have pointed out to her that hospice would actually allow her to spend more time at home with her grandson points out that when she comes in the hospital she actually goes home and does feel better for a while before she ends up having to come back. For these reasons at this time she is not interested in hospice. She does understand that hospice is, and will avail herself of that when she feels it is appropriate. Of care has discussed this repeatedly with this particular patient she is consistent in her desires, we will therefore sign off available to answer her questions whenever she wishes, we will be available for reconsultation if needed.
--- NOTE | 2017-06-28 10:42 | Physician Discharge Referral ---
Home Health/Hosp Referral Info Transfer to: Home Health Attending Provider: Dr. roldan Provider in Charge Post Discharge: PCP - Diagnosis (1) Acute and chronic respiratory failure ([id number]) Priority: Primary Status: Resolved (2) Acute exacerbation of COPD with asthma Priority: Secondary Status: Resolved (3) Healthcare-associated pneumonia Priority: Secondary (4) Small cell 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 Priority: Secondary Status: Chronic (5) Compression fracture of body of thoracic vertebra Priority: Secondary Status: Chronic (6) Anxiety Priority: Secondary Status: Chronic (7) HTN (hypertension) Priority: Secondary Status: Chronic - Respiratory Orders Oxygen / L per min (2L) Smoking Cessation: Smoking cessation has been advised. For more information, call the [employer] website Tobacco Quit Line at 3-641-XRRD-NOW. - Diet/Nutrition Diet/Nutrition Orders: Regular - Activity Activity Orders: Up ad em, Ambulate - Services Needed Following services are medically necessary services: Nursing, Home Health Aide, Physical Therapy, Occupational Therapy, Med Social Work - Transfer Medications Prescriptions: Cholecalciferol (D-3) [Vitamin D] 1,000 unit PO DAILY #30 tablet predniSONE [PredniSONE] 10 mg PO TAPER #70 tablet Home Medications: Trazodone HCl 200 mg PO HS 02/15/16 [History] Albuterol Sulfate [Albuterol Inhaler] 2 puff IH Q6H PRN 10/14/16 [History] Budesonide/Formoterol 160/4.5 [Symbicort 160/4.5] 2 puff IH BIDR 10/14/16 [ History] Oxygen 2 l NS AD 10/14/16 [History] Calcium Carbonate/Vitamin D3 [Calcium 500 + Vit D Caplet] 2 each PO DAILY #60 tablet 12/26/16 [Rx] LORazepam [Ativan] 0.5 mg PO BID PRN 7 Days #14 tablet 05/23/17 [Rx] Omeprazole [PriLOSEC] 20 mg PO DAILY@0630 #30 capsule. 06/03/17 [Rx] Albuterol Neb [Proventil Neb] 2.5 mg IH Q2H PRN #120 inhsol 06/08/17 [Rx] Buspirone HCl [Buspar] 15 mg PO BID #60 tablet 06/08/17 [Rx] DULoxetine [Cymbalta] 30 mg PO HS #30 capsule. 06/08/17 [Rx] Ipratropium/Albuterol Neb [Duoneb] 3 ml IH [id number] #160 inhsol 06/08/17 [Rx] Promethazine [Phenergan] 12.5 mg PO ACHS 20 Days #40 tablet 06/08/17 [Rx] Metoprolol [Lopressor] 12.5 mg PO BID PRN MDD SEE NOTE 06/13/17 [History] Potassium Chloride [K-Tab ER] 20 meq PO DAILY 06/13/17 [History] Sucralfate [Carafate] 10 ml PO BID 06/13/17 [History] clonazePAM [Klonopin] 0.5 mg PO BID 06/13/17 [History] Calcium Carbonate [Tums] 1,000 mg PO TID tab.chew 06/16/17 [Rx] GuaiFENesin ER [Mucinex] 1,200 mg PO BID PRN #60 tbbp.12hr 06/16/17 [Rx] OxyCODONE Immed Rel [Roxicodone 10 MG] 10 mg PO TID PRN 30 Days #90 tab [Rx] Prochlorperazine Maleate [Compazine] 10 mg PO Q8HR #90 tablet 06/18/17 [Rx] Melatonin [Melatin] 3 mg PO HS 06/21/17 [History] Cholecalciferol (D-3) [Vitamin D] 1,000 unit PO DAILY #30 tablet 06/28/17 [Rx] predniSONE [PredniSONE] 10 mg PO TAPER #70 tablet 06/28/17 [Rx] Allergies/Adverse Reactions: 3 Allergy/AdvReac Type Severity Reaction Status Date / Time No Known Allergies Allergy Verified 06/13/17 17:07 Certification: Further, I certify that my clinical findings support that this patient is homebound (i.e. absences from home require considerable and taxing effort and are for medical reasons or jain services or infrequently or short duration when for other reasons) because: Homebound Reason: Patient requires assistance of a person or device to safely leave home, Absences from home are contraindicated except to recieve medical care Attestation: My signature below is to certify that this patient is under my care and that I, or nurse practitioner, or a physician's cleaner assistant working with me, has a face-to -face encounter with this patient.
[2017-06-28] MEDS: *HR* LORazepam 0.5 MG TABLET PO PRN (11:41)
== END 2017-06-28 12:18 | disposition home health service (06) | DRG 190 ==
LOC: 2NENU 15:23 → EMEROO 15:23 → 2NENU 19:09 → SUATTDRO 19:44
PROVIDERS: ADMIT Internal Medicine Cardiovascular Disease; ATTEND Internal Medicine

== ENCOUNTER 2017-06-29 16:36 | Observation (INO) ==
[2017-06-29] MEDS ORDERED: Ipratropium/Albuterol Neb 3 ML IH ONE ×2 (17:23→19:15)
--- NOTE | 2017-06-29 17:23 | Emergency Department Note ---
Disposition Clinical Impression: COPD exacerbation, Hyponatremia Disposition: Admitted As Inpatient Condition: Fair Referrals: Ron Ward MD [Primary Care Provider] - Forms: ED Satisfaction Letter Time of Disposition: 19:40 General Adult HPI - General Chief complaint: ED Shortness of Breath/Dyspnea Stated complaint: NOHELIA Time Seen by Provider: 06/29/17 16:52 Source: patient Mode of arrival: ambulatory Limitations: no limitations Nursing Notes Reviewed: Yes Vital Signs Reviewed: Yes - History of Present Illness HPI Narrative: Patient is a 61-year-old female who presented to [facility] on 06/29/17 with a chief complaint of shortness of breath. Patient reports that earlier in the day, she began feeling short of breath at rest. She was recently discharged from the hospital for pneumonia. Patient had a 7 day course in the hospital. Patient has had multiple admissions over the past several months with similar complaints. The typical course of her hospitalization involves her being treated with steroids and antibiotics. She is then discharged, and then returns to the hospital with shortness of breath. Patient has a diagnosis of small cell lung carcinoma from October last year. Patient is not currently receiving any chemotherapy or radiation. Was following with oncology at one point. Patient admits to having shortness of breath, wheezes, and nonproductive cough. She denies having any chest pain, palpitations, fever, chills, nausea, or vomiting. Pt Subjective Complaint: Shortness of breath Onset (ago): hour(s) Pain Scale: 5 - Related Data Home Medications Medication Instructions Recorded Confirmed Trazodone HCl 200 mg PO HS 02/15/16 06/21/17 Albuterol Sulfate [Albuterol 2 puff IH Q6H PRN 10/14/16 06/21/17 Inhaler] Budesonide/Formoterol 160/4.5 2 puff IH BIDR 10/14/16 06/21/17 [Symbicort 160/4.5] Oxygen 2 l NS AD 10/14/16 06/21/17 Metoprolol [Lopressor] 12.5 mg PO BID PRN MDD SEE NOTE 06/13/17 06/21/17 Potassium Chloride [K-Tab ER] 20 meq PO DAILY 06/13/17 06/21/17 Sucralfate [Carafate] 10 ml PO BID 06/13/17 06/21/17 clonazePAM [Klonopin] 0.5 mg PO BID 06/13/17 06/21/17 Melatonin [Melatin] 3 mg PO HS 06/21/17 06/21/17 Previous Rx's Medication Instructions Recorded Calcium Carbonate/Vitamin D3 2 each PO DAILY #60 tablet 12/26/16 [Calcium 500 + Vit D Caplet] LORazepam [Ativan] 0.5 mg PO BID PRN 7 Days #14 tablet 05/23/17 Omeprazole [PriLOSEC] 20 mg PO DAILY@0630 #30 capsule. 06/03/17 Albuterol Neb [Proventil Neb] 2.5 mg IH Q2H PRN #120 inhsol 06/08/17 Buspirone HCl [Buspar] 15 mg PO BID #60 tablet 06/08/17 DULoxetine [Cymbalta] 30 mg PO HS #30 capsule. 06/08/17 Ipratropium/Albuterol Neb [Duoneb] 3 ml IH [id number] #160 inhsol 06/08/17 Promethazine [Phenergan] 12.5 mg PO ACHS 20 Days #40 tablet 06/08/17 Calcium Carbonate [Tums] 1,000 mg PO TID tab.chew 06/16/17 GuaiFENesin ER [Mucinex] 1,200 mg PO BID PRN #60 tbbp.12hr 06/16/17 OxyCODONE Immed Rel [Roxicodone 10 10 mg PO TID PRN 30 Days #90 tab 06/18/17 MG] Prochlorperazine Maleate 10 mg PO Q8HR #90 tablet 06/18/17 [Compazine] Cholecalciferol (D-3) [Vitamin D] 1,000 unit PO DAILY #30 tablet 06/28/17 predniSONE [PredniSONE] 10 mg PO TAPER #70 tablet 06/28/17 Allergies Allergy/AdvReac Type Severity Reaction Status Date / Time No Known Allergies Allergy Verified 06/13/17 17:07 Review of Systems: As Per HPI Constitutional: Reports: as per HPI. Denies: fever, chills, weakness Eyes: Reports: as per HPI. Denies: eye pain, eye discharge ENT ED: Reports: as per HPI. Denies: ear pain, throat pain Cardiovascular: Reports: as per HPI, dyspnea on exertion. Denies: chest pain, palpitations, edema, syncope, paroxysmal nocturnal dyspnea Respiratory: Reports: as per HPI, cough, dyspnea, wheezes. Denies: hemoptysis, stridor, sputum production Gastrointestinal: Reports: as per HPI. Denies: abdominal pain, nausea, vomiting Genitourinary: Reports: as per HPI Musculoskeletal: Reports: as per HPI. Denies: back pain, neck pain Neurological: Reports: as per HPI. Denies: headache, weakness Psychiatric: Reports: as per HPI. Denies: anxiety, depression Endocrine: Reports: as per HPI. Denies: fatigue Past Medical History - Past Medical History Medical history: Reports: cancer, COPD, hypertension Surgical history: Reports: hysterectomy Psychiatric history: Reports: anxiety, depression DRYWALL CARRIER history: Reports: no DRYWALL CARRIER history - Social History Smoking Status: Former smoker Smokeless Tobacco Status: No Alcohol use: Reports: none Drug use: Reports: none Physical Exam - General General appearance: alert, in no apparent distress - Head Head exam: atraumatic, normocephalic, normal inspection - Eye Eye exam: Present: normal appearance, PERRL, EOMI - ENT ENT exam: normal exam, normal oropharynx, mucous membranes moist - Neck Neck exam: Present: normal inspection - Chest Chest inspection: Present: normal inspection, symmetric chest wall rise. Absent : tenderness, abscess - Respiratory Respiratory exam: Present: wheezes, prolonged expiratory phase. Absent: normal lung sounds bilaterally, respiratory distress, accessory muscle use - Cardiovascular Cardiovascular exam: Present: regular rate, normal rhythm, +S1, +S2 - Abdominal Exam Abdominal exam: Present: soft, Non-Tender - Neurological Exam Neurological exam: Present: alert, oriented X3 - Psychiatric Psychiatric exam: Present: normal affect, normal mood - Skin Skin exam: Present: warm, dry, intact Course Course Narrative: Patient is a 61-year-old female. Recently discharged from pneumonia. Chest x- ray shows no focal consolidation. White count was elevated at 13.8, sodium level is 125, lactic acid is elevated at 2.7, glucose is elevated to 80. Patient will likely need admission as an inpatient. We will contact the hospitalist. - Reevaluation(s) Reevaluation #1: Spoke with the hospitalist Dr. Sweeney. Will accept patient for admission as an inpatient. Likely COPD exacerbation. Chest x-ray does not demonstrate any new evidence of pneumonia. White count is mildly elevated at 13.8. Vital Signs Temperature 98.1 F 06/29/17 16:39 Pulse Rate 122 06/29/17 16:39 Respiratory Rate 20 06/29/17 16:39 Blood Pressure 104/64 06/29/17 16:39 O2 Sat by Pulse Oximetry 93 06/29/17 16:39 Temperature 98.1 F 06/29/17 17:11 Pulse Rate 110 06/29/17 18:41 Respiratory Rate 16 06/29/17 19:33 Blood Pressure 123/78 06/29/17 18:41 O2 Sat by Pulse Oximetry 97 06/29/17 19:33 Oxygen Delivery Oxygen Delivery Room Air Medical Decision Making - Lab Data Result diagrams: 06/29/17 17:45 06/29/17 17:45 Lab Results 06/29/17 06/29/17 06/29/17 Range/Units 17:45 17:45 17:45 WBC 13.8 H (4.3-11.1) K/mcL RBC 3.47 L (3.82-4.97) M/mcL Hgb 10.3 L (11.5-15.4) g/dL Hct 31.4 L (35.3-44.9) % MCV 90.5 (83.0-100.0) fL MCH 29.7 (28.0-33.3) pg MCHC 32.8 (31.6-35.5) g/dL RDW 15.5 H (11.5-14.5) % Plt Count 321 (140-400) K/mcL MPV 8.8 L (9.4-12.4) fL Immature Gran % 2.3 (0-4) % Seg Neutrophils % 94.2 % Lymphocytes % 2.0 % Monocytes % 1.4 % Eosinophils % 0.0 % Basophils % 0.1 % Neutrophils # 13.0 H (1.6-8.9) K/mcL Lymphocytes # 0.3 L (0.6-4.6) K/mcL Monocytes # 0.2 (0.0-1.3) K/mcL Eosinophils # 0.0 (0.0-0.6) K/mcL Basophils # 0.0 (0.0-0.2) K/mcL Sodium 125 L (136-145) mEq/L Potassium 4.4 (3.5-5.1) mEq/L Chloride 88 L (98-107) mEq/L Carbon Dioxide 28 (23-29) mEq/L BUN 15 (8-23) mg/dL Creatinine 0.53 L (0.60-1.20) mg/dL Est GFR ( Amer) > 60 (> 60) Est GFR (Non-Af Amer) > 60 (> 60) BUN/Creatinine Ratio 28 H (6-26) Glucose 280 H (70-105) mg/dL Calculated Osmolality 271 L (280-300) Lactic Acid 2.7 H (0.5-2.2) mmol/L Calcium 8.6 (8.6-10.3) mg/dL Attestation Statement - Attestation Attestation: Patient was seen with resident physician. I reviewed the history, physical, assessment and plan, and agree with the findings. I also personally evaluated this patient and had [id number] time with this patient. 58 through old female presents to the emergency department with chief complaint of shortness of breath. Patient was just discharged from the hospital treated for pneumonia. Apparently she has a small cell carcinoma which makes treating the pneumonia difficult. She has been in and out of the hospital for several months now. She says her shortness breath is gotten worse. She is requesting a breathing treatment. Not sure about fevers. Review systems as above remained reviewed negative. Vital signs show mild tachycardia. ENT is unremarkable. Heart mild tachycardia regular rhythm. Lungs diffuse wheezing and crackles throughout both lung putnam. Abdomen is soft nontender. Extremities unremarkable. Neurologically intact. Skin no rashes. ED course we will check an x-ray give the patient breathing treatments and check lab tests. Chest x-ray did not reveal Acute findings. Labs revealed significant hyponatremia. Patient's breathing improved but not well enough to go home. We discussed the case with the hospitalist service who agreed to accept the patient for readmission for COPD exacerbation and hyponatremia. Hemodynamically she remained stable. Agree with the resident physician assessment and plan.
[2017-06-29 17:56] LABS: Basophils % 0.1 %; Hematocrit 31.4 % (35.3-44.9); Hemoglobin 10.3 g/dL (11.5-15.4); Immature Granulocytes % 2.3 % (0-4); Lymphocytes # 0.3 K/mcL (0.6-4.6); Mean Corpuscular HGB Conc 32.8 g/dL (31.6-35.5); Mean Corpuscular Hemoglobin 29.7 pg (28.0-33.3); Mean Corpuscular Volume 90.5 fL (83.0-100.0); Mean Platelet Volume 8.8 fL (9.4-12.4); Monocytes # 0.2 K/mcL (0.0-1.3); Monocytes % 1.4 %; Platelet Count 321 K/mcL (140-400); Red Blood Count 3.47 M/mcL (3.82-4.97); Red Cell Distribution Width 15.5 % (11.5-14.5); Segmented Neutrophils % 94.2 %
[2017-06-29] MEDS ORDERED: Levofloxacin 750 MG/150 ML 750 MG/150 ML BAG IVPB SCH (18:00)
[2017-06-29] MEDS: Levofloxacin 750 MG/150 ML 750 MG/150 ML BAG IVPB SCH (18:16)
[2017-06-29 18:20] LABS: BUN/Creatinine Ratio 28 (6-26); Blood Urea Nitrogen 15 mg/dL (8-23); Calcium 8.6 mg/dL (8.6-10.3); Carbon Dioxide 28 mEq/L (23-29); Chloride 88 mEq/L (98-107); Glucose 280 mg/dL (70-105); Osmolality,Calculated 271 (280-300); Potassium 4.4 mEq/L (3.5-5.1); Sodium 125 mEq/L (136-145); eGFR For African Americans > 60 (> 60); eGFR For Non-African Americans > 60 (> 60)
[2017-06-29] MEDS ORDERED: *HR* OxyCODONE/APAP 10/325 TABLET PO ONE (19:20)
[2017-06-29] MEDS ORDERED: Naloxone 0.4 MG/ML INJ IVP PRN (21:03)
[2017-06-29] MEDS ORDERED: Acetaminophen 325 MG TABLET PO PRN (21:03)
[2017-06-29] MEDS ORDERED: Ipratropium/Albuterol Neb 3 ML IH PRN (21:07)
--- NOTE | 2017-06-29 21:16 | Internal Med History&Physical ---
Date of Encounter: 06/29/17 Time of Encounter: 19:40 Internal Medicine - H&P: HPI Chief complaint: Shortness of breath Admitted From: Home Plans for Post Hospital Care: Home History of present illness: Ms. Keenan is a 61 year old female present to ER for shortness of breath. Past medical history is significant for small cell lung cancer with liver, bone , and brain metastasis, COPD. Patient was just discharged from hospital yesterday for pneumonia. Today since this morning she started to have shortness of breath, with dry cough. Denies chest pain or fever. Mild nausea no vomiting. In the emergency room, chest x- ray shows no new infiltrate. Patient was admitted as COPD exacerbation. I have discussed CODE STATUS with this patient. Patient clearly told me she accepted short term intubation but not resuscitation, DNR CCA placed. Past Med Surg Social Fam HX - Past Medical History Medical history: cancer, COPD, hypertension Psychiatric history: anxiety, depression - Past Surgical History Surgical History: hysterectomy - Social History Smoking Status: Former smoker Smokeless Tobacco Status: No Alcohol use: none Drug use: none - Family History Sister Adopted: No Family Member Ethnicity: Non- Living Status: Still Living Hx Family Cardiac Disorders: Yes (HTN) Hx Family Respiratory Disorders: No Hx Family Cancer: Yes (Lymphoma) Hx Family GI Disorders: No Hx Family Endocrine Disorder: No Hx Family Neuromuscular Disorders: No Hx Family Neurologic Disorders: No Hx Family HEENT Disorders: No Hx Family Autoimmune Disorders: No Mother Family Member Ethnicity: Non- Living Status: Hx Family Cardiac Disorders: Yes (hypertension,) Hx Family Respiratory Disorders: Yes (COPD) Hx Family Cancer: No Hx Family GI Disorders: No Hx Family Endocrine Disorder: No Hx Family Neuromuscular Disorders: No Hx Family Neurologic Disorders: Yes (Alzheimers) Hx Family HEENT Disorders: No Father Adopted: No Family Member Ethnicity: Non- Living Status: Hx Family Cardiac Disorders: Yes Hx Family Respiratory Disorders: Yes (mother copd) Hx Family Cancer: No Hx Family GI Disorders: No Hx Family Endocrine Disorder: No Hx Family Neuromuscular Disorders: No Hx Family Neurologic Disorders: No Hx Family HEENT Disorders: No Hx Family Autoimmune Disorders: No Internal Medicine - H&P: Meds Trazodone HCl 200 mg PO HS 02/15/16 [History] Albuterol Sulfate [Albuterol Inhaler] 2 puff IH Q6H PRN 10/14/16 [History] Budesonide/Formoterol 160/4.5 [Symbicort 160/4.5] 2 puff IH BIDR 10/14/16 [ History] Oxygen 2 l NS AD 10/14/16 [History] Calcium Carbonate/Vitamin D3 [Calcium 500 + Vit D Caplet] 2 each PO DAILY #60 tablet 12/26/16 [Rx] LORazepam [Ativan] 0.5 mg PO BID PRN 7 Days #14 tablet 05/23/17 [Rx] Omeprazole [PriLOSEC] 20 mg PO DAILY@0630 #30 capsule. 06/03/17 [Rx] Albuterol Neb [Proventil Neb] 2.5 mg IH Q2H PRN #120 inhsol 06/08/17 [Rx] Buspirone HCl [Buspar] 15 mg PO BID #60 tablet 06/08/17 [Rx] DULoxetine [Cymbalta] 30 mg PO HS #30 capsule. 06/08/17 [Rx] Ipratropium/Albuterol Neb [Duoneb] 3 ml IH [id number] #160 inhsol 06/08/17 [Rx] Promethazine [Phenergan] 12.5 mg PO ACHS 20 Days #40 tablet 06/08/17 [Rx] Metoprolol [Lopressor] 12.5 mg PO BID PRN MDD SEE NOTE 06/13/17 [History] Potassium Chloride [K-Tab ER] 20 meq PO DAILY 06/13/17 [History] Sucralfate [Carafate] 10 ml PO BID 06/13/17 [History] clonazePAM [Klonopin] 0.5 mg PO BID 06/13/17 [History] Calcium Carbonate [Tums] 1,000 mg PO TID tab.chew 06/16/17 [Rx] GuaiFENesin ER [Mucinex] 1,200 mg PO BID PRN #60 tbbp.12hr 06/16/17 [Rx] OxyCODONE Immed Rel [Roxicodone 10 MG] 10 mg PO TID PRN 30 Days #90 tab [Rx] Prochlorperazine Maleate [Compazine] 10 mg PO Q8HR #90 tablet 06/18/17 [Rx] Melatonin [Melatin] 3 mg PO HS 06/21/17 [History] Cholecalciferol (D-3) [Vitamin D] 1,000 unit PO DAILY #30 tablet 06/28/17 [Rx] predniSONE [PredniSONE] 10 mg PO TAPER #70 tablet 06/28/17 [Rx] 3 Allergy/AdvReac Type Severity Reaction Status Date / Time No Known Allergies Allergy Verified 06/13/17 17:07 All Systems PM: A 10-system review of systems was performed and is negative for pertinent findings except as documented above in the HPI. - Constitutional Vitals: Temp Pulse Resp BP Pulse Ox 98.2 F 110 20 118/74 96 06/29/17 20:42 06/29/17 20:42 06/29/17 20:42 06/29/17 20:42 06/29/17 20:42 General appearance: Present: cachectic, mild distress, A&O X 3, answers questions appropriately - Head Head exam: Present: atraumatic, normocephalic - Eye Eye exam: Present: PERRL, conjuntiva pink, sclera anicteric Pupils: Present: PERRL - Neck Neck exam general surgery: Present: supple, trachea midline. Absent: lymphadenopathy - Respiratory Respiratory exam: Present: CTAB, wheezes (Scattered wheezes bilaterally on the lung base). Absent: accessory muscle use, rales, rhonchi - Cardiovascular Cardiovascular exam: Present: RRR, +S1, +S2, tachycardia (Heart rate 105). Absent: diastolic murmur, gallop, rubs, systolic murmur - GI/Abdominal GI/Abdominal exam: Present: normal bowel sounds, soft, no peritoneal signs. Absent: distended, tenderness - Extremities Exam Extremities exam: Present: warm, radial pulses palpable and symmetrical. Absent : calf tenderness, cyanotic, pedal edema - Neurological Exam Neurological exam: Present: CN II-XII intact, oriented X3, no focal deficits. Absent: pronater drift, facial droop, speech deficit - Skin Skin exam: Present: dry, intact Internal Med - H&P Results - Labs CBC & Chem 7: 06/29/17 17:45 06/29/17 17:45 - Assessment and plan (1) COPD exacerbation Current Visit: Yes Status: Acute Assessment and plan: Patient has history of COPD. Increased shortness of breath with wheezing. Consider COPD exacerbation. 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 - Place patient on regular diet, closely monitor sodium level. (3) DVT prophylaxis Current Visit: No Status: Acute Assessment and plan: Lovenox subcutaneously (4) Small cell lung cancer Current Visit: No Status: Chronic Assessment and plan: Has remote metastasis already. Patient has counseled [facility] oncologist. Now she is off chemotherapy or radiation therapy. Patient will consider palliative care. - Time Spent With Patient Total time spent is greater than 50% in coordination of care (as documented) at patient's floor/unit and/or counseling patient: 40 minutes Greater than 35 minutes
[2017-06-29] MEDS: Melatonin 3 MG TABLET PO SCH (21:45)
[2017-06-29] MEDS: predniSONE 20 MG TABLET PO SCH (21:45)
[2017-06-29] MEDS: Ipratropium/Albuterol Neb 3 ML IH SCH (23:16)
[2017-06-29] MEDS: Budesonide/Formoterol 160/4.5 MDI IH SCH (23:16)
[2017-06-29] MEDS ORDERED: *HR* HYDROcodone/Acet 5/325 mg TABLET PO PRN (23:28)
[2017-06-29] MEDS: *HR* OxyCODONE/APAP 5/325 TABLET PO PRN (23:47)
[2017-06-30] MEDS: Ipratropium/Albuterol Neb 3 ML IH SCH ×7 (03:11→23:30)
[2017-06-30 04:08] LABS: Basophils % 0.3 %; Hematocrit 30.2 % (35.3-44.9); Hemoglobin 9.8 g/dL (11.5-15.4); Immature Granulocytes % 1.9 % (0-4); Lymphocytes # 0.4 K/mcL (0.6-4.6); Lymphocytes % 3.2 %; Mean Corpuscular HGB Conc 32.5 g/dL (31.6-35.5); Mean Corpuscular Hemoglobin 29.3 pg (28.0-33.3); Mean Corpuscular Volume 90.4 fL (83.0-100.0); Mean Platelet Volume 8.9 fL (9.4-12.4); Monocytes # 0.2 K/mcL (0.0-1.3); Monocytes % 1.9 %; Neutrophils # 10.4 K/mcL (1.6-8.9); Platelet Count 299 K/mcL (140-400); Red Blood Count 3.34 M/mcL (3.82-4.97); Red Cell Distribution Width 15.2 % (11.5-14.5); Segmented Neutrophils % 92.7 %
[2017-06-30 05:07] LABS: BUN/Creatinine Ratio 31 (6-26); Blood Urea Nitrogen 12 mg/dL (8-23); Calcium 8.7 mg/dL (8.6-10.3); Carbon Dioxide 27 mEq/L (23-29); Chloride 90 mEq/L (98-107); Glucose 207 mg/dL (70-105); Magnesium 1.7 mg/dL (1.6-2.6); Osmolality,Calculated 262 (280-300); Potassium 4.6 mEq/L (3.5-5.1); Sodium 123 mEq/L (136-145); eGFR For African Americans > 60 (> 60); eGFR For Non-African Americans > 60 (> 60)
[2017-06-30] MEDS: *HR* Enoxaparin 30 MG/0.3 ML SYRINGE SQ SCH (06:12)
[2017-06-30] MEDS: Budesonide/Formoterol 160/4.5 MDI IH SCH ×2 (07:26→20:09)
[2017-06-30] MEDS: clonazePAM 0.5 MG TABLET PO SCH ×2 (09:00→21:06)
[2017-06-30] MEDS: predniSONE 20 MG TABLET PO SCH (09:00)
[2017-06-30] MEDS: *HR* OxyCODONE/APAP 5/325 TABLET PO PRN ×2 (09:01→18:18)
[2017-06-30] MEDS: Levofloxacin 750 MG/150 ML 750 MG/150 ML BAG IVPB SCH (09:16)
[2017-06-30] MEDS ORDERED: 0.9 % Sodium Chloride 1,000 ML IVC SCH (11:00)
[2017-06-30] MEDS ORDERED: Albuterol 2.5 MG/3 ML NEBULIZER IH PRN (11:35)
[2017-06-30] MEDS ORDERED: *HR* LORazepam 0.5 MG TABLET PO PRN (11:35)
[2017-06-30] MEDS ORDERED: *HR* OxyCODONE Immed Rel 5 MG TABLET PO PRN (11:35)
[2017-06-30] MEDS: Acetylcysteine 10% 2 ML INHSOL IH SCH ×4 (11:43→23:30)
--- NOTE | 2017-06-30 11:44 | Palliative - Consult Note ---
Date of Encounter: 06/30/17 Time of Encounter: 11:00 - Assessment and Plan (1) Small cell 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 Current Visit: No Status: Chronic Assessment and plan: Patient is a current Oncology patient of Dr. Beltrán at [facility]. Continue treatment plan as advised by outpatient oncology. (2) COPD exacerbation Current Visit: No Status: Acute Assessment and plan: Patient admitted to COPD Exacerbation. Continue duonebs, oxygen therapy, and mucinex. (3) Goals of care, counseling/discussion Current Visit: No Status: Acute Assessment and plan: Spoke with patient regarding goals of care. Patient wishes to continue current treatment plan for COPD and Lung cancer, but she wishes to continue to discuss the possibility of returning home with [facility] at discharge. Patient was concerned about episode of SOB and recurrent need for rehospitalization. Explained GIP process and medication management of symptoms. Patient and her Ki ([phone]) wish to ponder the idea of hospice and will report to palliative care team decision tomorrow or saturday. Patient wants to be able to tell family, specifically grandchildren, how sick she is, but desires not to complete this task on mother's day. Palliative care will continue to follow. (4) Back pain Current Visit: No Status: Acute Assessment and plan: Patient currently rates pain 4/10; chronic and dull ache. Patient reports that her current pain regiment of [place] and Percocet are providing her adequate comfort from pain. Will continue to monitor. Qualifiers: Back pain location: back pain in unspecified location Chronicity: chronic Back pain laterality: unspecified Qualified Code(s): M54.9 - Dorsalgia, unspecified; G89.29 - Other chronic pain Palliative-CN HPI - Data of Consult Patient: known to practice within the last 3 years Consult date: 06/30/17 Requesting Physician: Sukhdev Sweeney MD Primary Care Provider: Ron Ward MD - Consult Narrative Palliative Care/Comfort Measures: Palliative care Reason for consult: End stage lung CA; repeat readmissions History of present illness: Ms. Keenan is a 61 year old female arrived to [facility] 06/29/17 for repeat COPD exacerbation. Patient has PMH of Lung CA, COPD, HTN, anxiety, and depression. Patient was discharged yesterday with continued treatment for pneumonia. Admitted 06/29/17. Patient denies nausea, vomiting, and anxiety at present time. Pain in back is described as a 4/10, a dull chronic pain. Patient 's is at bedside. Patient resting quietly in bed with eyes open reading a book upon arrival. Patient remained calm and welcoming upon entry. Introduced self. Patient is alert and oriented times 3. Spoke of her 3 grandchildren, 12 y/o boy Michael, 11 y /o girl, and 7 yo boy. Informed real estate underwriter that patient and her have decided it is time to sit down and tell grandchildren how sick patient really is. CC: Sukhdev Sweeney MD Past Med Surg Social Fam HX - Past Medical History Medical history: cancer, COPD, hypertension Psychiatric history: anxiety, depression - Past Surgical History Surgical History: hysterectomy - Social History Smoking Status: Former smoker Smokeless Tobacco Status: No Alcohol use: none Drug use: none - Family History Sister Adopted: No Family Member Ethnicity: Non- Living Status: Still Living Hx Family Cardiac Disorders: Yes (HTN) Hx Family Respiratory Disorders: No Hx Family Cancer: Yes (Lymphoma) Hx Family GI Disorders: No Hx Family Endocrine Disorder: No Hx Family Neuromuscular Disorders: No Hx Family Neurologic Disorders: No Hx Family HEENT Disorders: No Hx Family Autoimmune Disorders: No Mother Family Member Ethnicity: Non- Living Status: Hx Family Cardiac Disorders: Yes (hypertension,) Hx Family Respiratory Disorders: Yes (COPD) Hx Family Cancer: No Hx Family GI Disorders: No Hx Family Endocrine Disorder: No Hx Family Neuromuscular Disorders: No Hx Family Neurologic Disorders: Yes (Alzheimers) Hx Family HEENT Disorders: No Father Adopted: No Family Member Ethnicity: Non- Living Status: Hx Family Cardiac Disorders: Yes Hx Family Respiratory Disorders: Yes (mother copd) Hx Family Cancer: No Hx Family GI Disorders: No Hx Family Endocrine Disorder: No Hx Family Neuromuscular Disorders: No Hx Family Neurologic Disorders: No Hx Family HEENT Disorders: No Hx Family Autoimmune Disorders: No Medications and Allergies Trazodone HCl 200 mg PO HS 02/15/16 [History] Albuterol Sulfate [Albuterol Inhaler] 2 puff IH Q6H PRN 10/14/16 [History] Budesonide/Formoterol 160/4.5 [Symbicort 160/4.5] 2 puff IH BIDR 10/14/16 [ History] Oxygen 2 l NS AD 10/14/16 [History] Calcium Carbonate/Vitamin D3 [Calcium 500 + Vit D Caplet] 2 each PO DAILY #60 tablet 12/26/16 [Rx] LORazepam [Ativan] 0.5 mg PO BID PRN 7 Days #14 tablet 05/23/17 [Rx] Omeprazole [PriLOSEC] 20 mg PO DAILY@0630 #30 capsule. 06/03/17 [Rx] Albuterol Neb [Proventil Neb] 2.5 mg IH Q2H PRN #120 inhsol 06/08/17 [Rx] Buspirone HCl [Buspar] 15 mg PO BID #60 tablet 06/08/17 [Rx] DULoxetine [Cymbalta] 30 mg PO HS #30 capsule. 06/08/17 [Rx] Ipratropium/Albuterol Neb [Duoneb] 3 ml IH [id number] #160 inhsol 06/08/17 [Rx] Promethazine [Phenergan] 12.5 mg PO ACHS 20 Days #40 tablet 06/08/17 [Rx] Metoprolol [Lopressor] 12.5 mg PO BID PRN MDD SEE NOTE 06/13/17 [History] Potassium Chloride [K-Tab ER] 20 meq PO DAILY 06/13/17 [History] Sucralfate [Carafate] 10 ml PO BID 06/13/17 [History] clonazePAM [Klonopin] 0.5 mg PO BID 06/13/17 [History] Calcium Carbonate [Tums] 1,000 mg PO TID tab.chew 06/16/17 [Rx] GuaiFENesin ER [Mucinex] 1,200 mg PO BID PRN #60 tbbp.12hr 06/16/17 [Rx] OxyCODONE Immed Rel [Roxicodone 10 MG] 10 mg PO TID PRN 30 Days #90 tab [Rx] Prochlorperazine Maleate [Compazine] 10 mg PO Q8HR #90 tablet 06/18/17 [Rx] Melatonin [Melatin] 3 mg PO HS 06/21/17 [History] Cholecalciferol (D-3) [Vitamin D] 1,000 unit PO DAILY #30 tablet 06/28/17 [Rx] predniSONE [PredniSONE] 10 mg PO TAPER #70 tablet 06/28/17 [Rx] 3 Allergy/AdvReac Type Severity Reaction Status Date / Time No Known Allergies Allergy Verified 06/13/17 17:07 - Constitutional Constitutional ROS PAL: no decreased appetite, no fatigue - EENT Eyes: no change in vision - Cardiovascular Cardiovascular ROS: no chest pain - Respiratory Respiratory: cough, dyspnea, dyspnea on exertion - Gastrointestinal Gastrointestinal: no abdominal pain, no change in bowel habits, no change in stool character - Genitourinary Palliative ROS female: no difficulty voiding - Musculoskeletal Musculoskeletal ROS IM: back pain (chronic) - Neurological Neurological ROS: no confusion - Psychiatric Psychiatric general PM: anxiety Palliative Care-Exam - Constitutional Vitals: Temp Pulse Resp BP Pulse Ox 98.2 F 103 18 164/90 97 06/30/17 11:06 06/30/17 11:06 06/30/17 11:06 06/30/17 11:06 06/30/17 11:06 General appearance: Present: cooperative, no acute distress - Head Head Exam: Present: atraumatic, normal inspection - Expanded Head Exam Head exam expanded IM: Absent: general tenderness - Eye Eye exam: Present: EOMI, normal appearance, PERRL, conjuntiva pink. Absent: nystagmus, periorbital swelling, periorbital tenderness Pupils: Present: normal accommodation, PERRL - ENT ENT exam: Present: mucous membranes moist, normal external ear exam - Expanded ENT Exam Mouth Exam: Absent: drooling, dry mucosa - Neck Neck exam: Present: full ROM, normal inspection. Absent: meningismus, tenderness - Respiratory Respiratory exam: Present: rhonchi. Absent: accessory muscle use, respiratory distress - Cardiovascular Cardiovascular exam: Present: RRR, +S1, +S2 - Expanded Cardiovascular Exam Peripheral pulses: 2+: Radial (L), Radial (R), Posterior Tibialis (L), Posterior Tibialis (R), Dorsalis Pedis (L) PM, Dorsalis Pedis (R) PM - GI/Abdominal Exam GI/Abdominal exam: Present: normal bowel sounds - Rectal Rectal exam: Present: deferred - Expanded Neurological Exam Patient oriented to: Present: person, place, time Coma Scale Eye Opening: Spontaneous Coma Scale Motor Response: Obeys Commands Coma Scale Verbal Response: Oriented Coma Scale Total: 15 - Psychiatric Psychiatric exam: Present: normal affect, normal mood Internal Medicine - CN: Reslt - Labs CBC & Chem 7: 06/30/17 03:47 06/30/17 03:47 Labs: Short CBC 06/30/17 Range/Units 03:47 WBC 11.2 H (4.3-11.1) K/mcL Hgb 9.8 L (11.5-15.4) g/dL Hct 30.2 L (35.3-44.9) % Plt Count 299 (140-400) K/mcL Neutrophils # 10.4 H (1.6-8.9) K/mcL BMP 06/30/17 03:47 Sodium 123 L Potassium 4.6 Chloride 90 L Carbon Dioxide 27 BUN 12 Creatinine 0.39 L Glucose 207 H Calcium 8.7 Consult Discharge Plan - Plan Referrals: Ron Ward MD [Primary Care Provider] - Palliative Quality Palliative Quality: Screen for Code Status: Yes, Screen for Goals of Care: Yes, Screen for Pain: Yes, If Pain Regimen Started, Initiate Bowel Regimen: NA, Screen for Nausea/Vomitting: Yes Code Status: 06/29/17 21:03 Resuscitation Status: Active [RES] Routine Comment: Resuscitation Status: DNR-Comfort Care-Arrest
[2017-06-30] MEDS ORDERED: NON-FORMULARY MEDICATION 1 EACH EACH (Oxygen [Oxygen] 2 L) NS SCH (11:45)
[2017-06-30] MEDS: Loratadine 10 MG TABLET PO SCH (12:03)
[2017-06-30] MEDS: Cholecalciferol (D-3) 1,000 UNIT TABLET PO SCH (12:04)
--- NOTE | 2017-06-30 20:56 | Internal Med Progress Note ---
Date of Encounter: 06/30/17 Time of Encounter: 15:17 - Assessment and plan (1) COPD exacerbation Current Visit: Yes Status: Acute Assessment and plan: Patient has history of COPD. Increased shortness of breath with wheezing. Consider COPD exacerbation. Continue antibiotic, steroid, and bronchodilator. Will add mucomyst inhaled, guaifenesin, claritin, incentive spirometer, turn cough deep breathe, up to chair TID, and chest PT with neb treatments. Counselled on disease process. Appreciate help from palliative care; will try to get her set up with hospice if she wants, as this will reduce the amount of unnecessary hospitalizations. (2) Small cell lung cancer Current Visit: Yes Status: Chronic Assessment and plan: Has remote metastasis already. Patient has counseled [facility] oncologist. Now she is off chemotherapy or radiation therapy. Patient will consider palliative care. Palliative care and SW consulted; appreciate input. 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 She is slightly below baseline, so will hydrate gently and briefly. Continue regular diet. Recheck Na this evening and BMP in AM. (4) DVT prophylaxis Current Visit: No Status: Acute Assessment and plan: Continue SQ lovenox. - Time Spent With Patient Total time spent is greater than 50% in coordination of care (as documented) at patient's floor/unit and/or counseling patient: less than 15 minutes - Subjective Interval history: Patient had no acute events overnight. She states that she is almost back to her baseline. She denies any SOB while sitting in bed. She denies chest pain, palpitations, fever, chills, nausea, and vomiting. She has no complaints at this time. She is agreeable to trying inhaled mucomyst and chest PT. She needs better management of her chronic respiratory failure, or at least, better education on the disease process so she does not end up running to the ED every few weeks for a "tune-up." I think palliative care consult is appropriate and maybe we can get hospice set up, as they would be good at managing this and preventing unnecessary hospitalizations. Patient states that she get's "scared " when she gets short of breath. I have tried to educate her a little bit today , and we are going to add a few different medicines to see if it helps her not feel SOB at home. I answered all of patient's and family's questions. We all agree on plan of care. - Constitutional Vitals: Temp Pulse Resp BP Pulse Ox 97.8 F 92 22 152/92 98 06/30/17 19:43 06/30/17 19:43 06/30/17 20:10 06/30/17 19:43 06/30/17 20:10 General appearance: Present: cachectic, cooperative, A&O X 3, pleasant, no acute distress, answers questions appropriately - Respiratory Respiratory exam: Absent: accessory muscle use, rales, rhonchi, wheezes Additional comments: Mildly labored WOB, coarse breath sounds bilaterally, some diminished breath sounds in lower lobes bilaterally - Cardiovascular Cardiovascular exam: Present: RRR, +S1, +S2. Absent: diastolic murmur, gallop, rubs, systolic murmur - GI/Abdominal GI/Abdominal exam: Present: normal bowel sounds, soft. Absent: distended, hepatomegaly, mass, splenomegaly, tenderness - Psychiatric Psychiatric exam: Present: normal affect, normal mood. Absent: agitated, anxious, depressed - Skin Skin exam: Present: dry, intact, warm. Absent: cyanosis, rash Internal Medicine: Result - Labs CBC & Chem 7: 06/30/17 03:47 06/30/17 03:47 Labs: Short CBC 06/30/17 Range/Units 03:47 WBC 11.2 H (4.3-11.1) K/mcL Hgb 9.8 L (11.5-15.4) g/dL Hct 30.2 L (35.3-44.9) % Plt Count 299 (140-400) K/mcL Neutrophils # 10.4 H (1.6-8.9) K/mcL BMP 06/30/17 03:47 Sodium 123 L Potassium 4.6 Chloride 90 L Carbon Dioxide 27 BUN 12 Creatinine 0.39 L Glucose 207 H Calcium 8.7 Consult Discharge Plan - Plan Referrals: Ron Ward MD [Primary Care Provider] - Belle Farrell MD [Partnered Physician] -
[2017-06-30] MEDS ORDERED: traZODone 50 MG TABLET PO SCH (21:00)
[2017-06-30] MEDS: Melatonin 3 MG TABLET PO SCH (21:07)
[2017-07-01 03:22] LABS: Basophils % 0.2 %; Eosinophils % 0.3 %; Hematocrit 26.5 % (35.3-44.9); Hemoglobin 8.9 g/dL (11.5-15.4); Immature Granulocytes % 1.6 % (0-4); Lymphocytes % 9.1 %; Mean Corpuscular HGB Conc 33.6 g/dL (31.6-35.5); Mean Corpuscular Hemoglobin 29.6 pg (28.0-33.3); Monocytes # 0.6 K/mcL (0.0-1.3); Monocytes % 5.6 %; Neutrophils # 9.1 K/mcL (1.6-8.9); Platelet Count 282 K/mcL (140-400); Red Blood Count 3.01 M/mcL (3.82-4.97); Red Cell Distribution Width 14.6 % (11.5-14.5); Segmented Neutrophils % 83.2 %
[2017-07-01 03:42] LABS: BUN/Creatinine Ratio 32 (6-26); Blood Urea Nitrogen 11 mg/dL (8-23); Calcium 8.5 mg/dL (8.6-10.3); Carbon Dioxide 27 mEq/L (23-29); Chloride 90 mEq/L (98-107); Glucose 177 mg/dL (70-105); Osmolality,Calculated 256 (280-300); Potassium 4.2 mEq/L (3.5-5.1); Sodium 121 mEq/L (136-145); eGFR For African Americans > 60 (> 60); eGFR For Non-African Americans > 60 (> 60)
[2017-07-01] MEDS: Ipratropium/Albuterol Neb 3 ML IH SCH ×4 (03:54→15:30)
[2017-07-01] MEDS: Acetylcysteine 10% 2 ML INHSOL IH SCH ×3 (03:54→11:03)
[2017-07-01] MEDS: *HR* Enoxaparin 30 MG/0.3 ML SYRINGE SQ SCH (05:54)
[2017-07-01] MEDS: Budesonide/Formoterol 160/4.5 MDI IH SCH (07:38)
[2017-07-01] MEDS: clonazePAM 0.5 MG TABLET PO SCH (07:54)
[2017-07-01] MEDS: Cholecalciferol (D-3) 1,000 UNIT TABLET PO SCH (07:54)
[2017-07-01] MEDS: Loratadine 10 MG TABLET PO SCH (07:54)
[2017-07-01] MEDS: Levofloxacin 750 MG/150 ML 750 MG/150 ML BAG IVPB SCH (07:54)
[2017-07-01] MEDS ORDERED: *HR* OxyCODONE Immed Rel 5 MG TABLET PO PRN (07:55)
--- NOTE | 2017-07-01 07:55 | Palliative Progress Note ---
Date of Encounter: 07/01/17 Time of Encounter: 07:30 - Assessment and plan (1) Acute and chronic respiratory failure Current Visit: No Status: Chronic Assessment and plan: pt reporst being much better hoping to go home today cont present meds per hospiatalist Qualifiers: Respiratory failure complication: hypoxia Qualified Code(s): J96.21 - Acute and chronic respiratory failure with hypoxia (2) Goals of care, counseling/discussion Current Visit: No Status: Acute Assessment and plan: dnr cca short term intubation is ok goals to return home. Pt has been in numerous times recently. I have had numerous conversations with her re hospice. She is ow starting to hae questions, we went over going home with hospice and feeling the need to come back. At this time I feel she still is seeking some agressive therapy and wants to continue her cancer therapy. I feel her copd and her lung cancer are too related to be sperate for hospice purposes. I have told her when [facility] hospital brought to her sounds better than coming in then she is ready for hospice. she understands and is discussing with and grandson (3) Healthcare-associated pneumonia Current Visit: No Status: Resolved Assessment and plan: cont antibiotics per hospitalist team (4) Small cell 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 Current Visit: No Status: Chronic Assessment and plan: still getting therapy from cancer center no changes at this time - Time Spent With Patient Total time spent is greater than 50% in coordination of care (as documented) at patient's floor/unit and/or counseling patient: - Subjective Interval history: breathing much better this am. she is hoping to go home today no c/o nausea pain is well controlled - Constitutional Vitals: Abnormal lab results RBC 3.01 M/mcL (3.82-4.97) L 07/01/17 02:53 Hgb 8.9 g/dL (11.5-15.4) L 07/01/17 02:53 Hct 26.5 % (35.3-44.9) L 07/01/17 02:53 RDW 14.6 % (11.5-14.5) H 07/01/17 02:53 MPV 9.0 fL (9.4-12.4) L 07/01/17 02:53 Neutrophils # 9.1 K/mcL (1.6-8.9) H 07/01/17 02:53 Sodium 121 mEq/L (136-145) L 07/01/17 02:53 Chloride 90 mEq/L (98-107) L 07/01/17 02:53 Creatinine 0.34 mg/dL (0.60-1.20) L 07/01/17 02:53 BUN/Creatinine Ratio 32 (6-26) H 07/01/17 02:53 Glucose 177 mg/dL (70-105) H 07/01/17 02:53 Calculated Osmolality 256 (280-300) L 07/01/17 02:53 Lactic Acid 2.6 mmol/L (0.5-2.2) H 06/30/17 03:47 Calcium 8.5 mg/dL (8.6-10.3) L 07/01/17 02:53 General appearance: Present: no acute distress - Respiratory Respiratory exam: Present: decreased breath sounds, rhonchi (occ) - Cardiovascular Cardiovascular exam: Present: RRR - GI/Abdominal GI/Abdominal exam: Present: soft. Absent: tenderness - Extremities Exam Extremities exam: Absent: tenderness - Neurological Exam Neurological exam: Present: alert, oriented X3 - Psychiatric Psychiatric exam: Absent: agitated, anxious - Skin Skin exam: Present: dry, warm Palliative Quality Palliative Quality: Screen for Code Status: Yes, Screen for Goals of Care: Yes, Screen for Pain: Yes, If Pain Regimen Started, Initiate Bowel Regimen: NA, Screen for Nausea/Vomitting: Yes Code Status: 06/29/17 21:03 Resuscitation Status: Active [RES] Routine Comment: Resuscitation Status: DNR-Comfort Care-Arrest - Labs CBC & Chem 7: 07/01/17 02:53 07/01/17 02:53 Labs: Laboratory Results - last 24 hr 06/30/17 07/01/17 07/01/17 21:18 02:53 02:53 WBC 10.9 RBC 3.01 L Hgb 8.9 L Hct 26.5 L MCV 88.0 MCH 29.6 MCHC 33.6 RDW 14.6 H Plt Count 282 MPV 9.0 L Immature Gran % 1.6 Seg Neutrophils % 83.2 Lymphocytes % 9.1 Monocytes % 5.6 Eosinophils % 0.3 Basophils % 0.2 Neutrophils # 9.1 H Lymphocytes # 1.0 Monocytes # 0.6 Eosinophils # 0.0 Basophils # 0.0 Sodium 121 L 121 L Potassium 4.2 Chloride 90 L Carbon Dioxide 27 BUN 11 Creatinine 0.34 L Est GFR ( Amer) > 60 Est GFR (Non-Af Amer) > 60 BUN/Creatinine Ratio 32 H Glucose 177 H Calculated Osmolality 256 L Calcium 8.5 L Consult Discharge Plan - Plan Referrals: Ron Ward MD [Primary Care Provider] - Belle Farrell MD [Partnered Physician] -
[2017-07-01] MEDS ORDERED: predniSONE 10 MG TABLET PO SCH (09:00)
[2017-07-01] MEDS ORDERED: clonazePAM 0.5 MG TABLET PO PRN (13:01)
--- NOTE | 2017-07-01 14:27 | Discharge Summary ---
- NOTES TO OUTPATIENT PROVIDER Notes to Outpatient Provider: Follow up with PCP in 2-3 days after discharge. Recheck BMP (hyponatremia) at that time. May need hospice referral if patient makes a decision after discussion with family. Follow up with pre k special education teacher and oncologist as directed. Orders not resulted at time of discharge: Pending orders 07/02/17 04:00 Basic Metabolic Panel AM 0400 CBC [Complete Blood Count] [HEME] AM 0400 Date of Encounter: 07/01/17 Time of Encounter: 12:07 - Discharge Diagnosis (1) COPD exacerbation Priority: Primary Status: Acute (2) Small cell lung cancer Priority: Secondary Status: Chronic (3) Hyponatremia Priority: Secondary Status: Chronic (4) DVT prophylaxis Priority: Secondary Status: Acute Hospital course: Ms. Keenan is a 61 year old female admitted for acute on chronic respiratory failure likely secondary to a combination of small cell lung cancer and acute exacerbation of COPD. Patient was admitted for observation to general medical floor with telemetry. She was started on prednisone 40 mg PO QD , scheduled duonebs, and IV levaquin 750 mg QD. Breathing status improved somewhat overnight. The next day, mucomyst inhaled, guaifenesin, claritin, incentive spirometer, turn cough deep breathe, up to chair TID, and chest PT with neb treatments were added to help better manage her chronic respiratory failure. Palliative care was consulted, and they met with patient. She is still not ready for hospice; she would like some more time to consider with family. She states that mucomyst helped, and she will try to use it as outpatient. Clinical pharmacist noticed that she was on both klonopin and ativan for anxiety and respiratory distress. We discussed with patient and she is agreeable to discontinuing ativan and using klonopin more often as need at 0.5 mg Q4H PRN anxiety/respiratory distress. I believe this will help better manage her anxiety about her breathing. She has had several unnecessary hospitalizations in the recent past. I also think the mucomyst will help better manage her respiratory condition. I will give her prescriptions for both of these. Her respiratory status today is back to baseline, and patient is eager to go home. She will complete a long prednisone taper and 5 more days of levaquin at home. She will follow up with PCP in 2-3 days after discharge. Repeat BMP (hyponatremia) can be checked at that time. She may need hospice referral by PCP if patient makes a decision after discussion with family. Follow up with pre k special education teacher and oncologist as directed. Patient has met maximum benefit of this hospitalization and will be discharged home in stable condition. Discharge discussed with: patient, nurse, social work, other (Pharmacist) - Time Spent with Patient Total time spent providing and/or coordinating discharge services: Greater than 30 minutes - Discharge Medications Prescriptions: clonazePAM [Klonopin] 0.5 mg PO Q4H PRN 7 Days #28 tablet MDD 6 PRN Reason: Anxiety Levofloxacin [Levaquin] 750 mg PO DAILY 5 Days #5 tablet Loratadine [Claritin] 10 mg PO DAILY 7 Days #7 tablet predniSONE [PredniSONE] See Taper PO DAILY 26 Days #62 tablet Home Medications: Trazodone HCl 200 mg PO HS 02/15/16 [History] Albuterol Sulfate [Albuterol Inhaler] 2 puff IH Q6H PRN 10/14/16 [History] Budesonide/Formoterol 160/4.5 [Symbicort 160/4.5] 2 puff IH BIDR 10/14/16 [ History] Oxygen 2 l NS AD 10/14/16 [History] Calcium Carbonate/Vitamin D3 [Calcium 500 + Vit D Caplet] 2 each PO DAILY #60 tablet 12/26/16 [Rx] Omeprazole [PriLOSEC] 20 mg PO DAILY@0630 #30 capsule. 06/03/17 [Rx] Albuterol Neb [Proventil Neb] 2.5 mg IH Q2H PRN #120 inhsol 06/08/17 [Rx] Buspirone HCl [Buspar] 15 mg PO BID #60 tablet 06/08/17 [Rx] DULoxetine [Cymbalta] 30 mg PO HS #30 capsule. 06/08/17 [Rx] Ipratropium/Albuterol Neb [Duoneb] 3 ml IH [id number] #160 inhsol 06/08/17 [Rx] Promethazine [Phenergan] 12.5 mg PO ACHS 20 Days #40 tablet 06/08/17 [Rx] Metoprolol [Lopressor] 12.5 mg PO BID PRN MDD SEE NOTE 06/13/17 [History] Potassium Chloride [K-Tab ER] 20 meq PO DAILY 06/13/17 [History] Sucralfate [Carafate] 10 ml PO BID 06/13/17 [History] Calcium Carbonate [Tums] 1,000 mg PO TID tab.chew 06/16/17 [Rx] GuaiFENesin ER [Mucinex] 1,200 mg PO BID PRN #60 tbbp.12hr 06/16/17 [Rx] OxyCODONE Immed Rel [Roxicodone 10 MG] 10 mg PO TID PRN 30 Days #90 tab [Rx] Prochlorperazine Maleate [Compazine] 10 mg PO Q8HR #90 tablet 06/18/17 [Rx] Melatonin [Melatin] 3 mg PO HS 06/21/17 [History] Cholecalciferol (D-3) [Vitamin D] 1,000 unit PO DAILY #30 tablet 06/28/17 [Rx] Acetylcysteine 10% 2 ml IH [id number] PRN inhsol 07/01/17 [Rx] Levofloxacin [Levaquin] 750 mg PO DAILY 5 Days #5 tablet 07/01/17 [Rx] Loratadine [Claritin] 10 mg PO DAILY 7 Days #7 tablet 07/01/17 [Rx] clonazePAM [Klonopin] 0.5 mg PO Q4H PRN 7 Days #28 tablet MDD 6 07/01/17 [Rx] predniSONE [PredniSONE] See Taper PO DAILY 26 Days #62 tablet 07/01/17 [Rx] Allergies/Adverse Reactions: 3 Allergy/AdvReac Type Severity Reaction Status Date / Time No Known Allergies Allergy Verified 07/01/17 09:38 Date of admission: 06/29/17 19:48 Primary care physician: Ron Ward MD Consults: 06/30/17 10:45 Consult to Palliative Care [CONS] Stat Comment: Consulting Provider: [facility] [place] Reason for Consult: End Stage Lung Cancer. Repeat hospital admissions for ? COPD exacerbation. Please help with recommendations. Call Completed: No 06/30/17 21:03 Consult to Stave Bolt Equalizer [CONS] Routine Reason for SW Consult: Set up home hospice after patient/family confirm with palliative care. Discharging clinician: Antoine Zheng Anticipated date of discharge: 07/01/17 - Constitutional Vitals: Temp Pulse Resp BP Pulse Ox 97.7 F 99 16 119/72 96 07/01/17 10:54 07/01/17 10:54 07/01/17 11:03 07/01/17 10:54 07/01/17 11:03 General appearance: Present: cachectic, cooperative, A&O X 3, pleasant, no acute distress, answers questions appropriately - Respiratory Respiratory exam: Absent: accessory muscle use, rales, rhonchi Additional comments: Normal WOB, coarse breath sounds bilaterally with rare intermittent bilateral wheeze - Cardiovascular Cardiovascular exam: Present: RRR, +S1, +S2. Absent: diastolic murmur, gallop, rubs, systolic murmur Additional comments: No BLE edema - GI/Abdominal GI/Abdominal exam: Present: normal bowel sounds, soft. Absent: distended, hepatomegaly, mass, splenomegaly, tenderness - Psychiatric Psychiatric exam: Present: normal affect, normal mood. Absent: agitated, anxious, depressed - Skin Skin exam: Present: dry, intact, warm. Absent: cyanosis, rash - Patient Status Disposition: Home Health Service Condition: Fair Overall status at discharge: patient is progressing back to baseline - Discharge Instructions Instructions: Acute Respiratory Distress Syndrome (DC), Chronic Obstructive Pulmonary Disease (DC) Follow Up With: Ron Ward MD [Primary Care Provider] - 07/05/17 10:45 am (web request sent on 07/01/17 ) Additional Instructions: Follow up with PCP in 2-3 days after discharge. Recheck BMP (hyponatremia) at that time. May need hospice referral if patient makes a decision after discussion with family. Follow up with pre k special education teacher and oncologist as directed. - Diet and Activity Activity: as per physical therapy, wear oxygen at all times Diet: regular diet
--- NOTE | 2017-07-01 15:34 | Electrocardiograph Report ---
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
[2017-07-01 15:52] VITALS: BP 127/80
--- NOTE | 2017-07-01 15:54 | Physician Discharge Referral ---
Home Health/Hosp Referral Info Transfer to: Home Health Provider in Charge Post Discharge: PCP - Diagnosis (1) COPD exacerbation Priority: Primary Status: Acute (2) Small cell lung cancer Priority: Secondary Status: Chronic (3) Hyponatremia Priority: Secondary Status: Chronic (4) DVT prophylaxis Priority: Secondary Status: Acute - Respiratory Orders Oxygen / L per min (2L NC) Smoking Cessation: Smoking cessation has been advised. For more information, call the [place] Tobacco Quit Line at 1-383-VKWZ-NOW. - Diet/Nutrition Diet/Nutrition Orders: Regular - Activity Activity: List: Per physical therapy - Services Needed Following services are medically necessary services: Nursing, Home Health Aide, Physical Therapy, Occupational Therapy, Med Social Work - Transfer Medications Prescriptions: clonazePAM [Klonopin] 0.5 mg PO Q4H PRN 7 Days #28 tablet MDD 6 PRN Reason: Anxiety Levofloxacin [Levaquin] 750 mg PO DAILY 5 Days #5 tablet Loratadine [Claritin] 10 mg PO DAILY 7 Days #7 tablet predniSONE [PredniSONE] See Taper PO DAILY 26 Days #62 tablet Home Medications: Trazodone HCl 200 mg PO HS 02/15/16 [History] Albuterol Sulfate [Albuterol Inhaler] 2 puff IH Q6H PRN 10/14/16 [History] Budesonide/Formoterol 160/4.5 [Symbicort 160/4.5] 2 puff IH BIDR 10/14/16 [ History] Oxygen 2 l NS AD 10/14/16 [History] Calcium Carbonate/Vitamin D3 [Calcium 500 + Vit D Caplet] 2 each PO DAILY #60 tablet 12/26/16 [Rx] Omeprazole [PriLOSEC] 20 mg PO DAILY@0630 #30 capsule. 06/03/17 [Rx] Albuterol Neb [Proventil Neb] 2.5 mg IH Q2H PRN #120 inhsol 06/08/17 [Rx] Buspirone HCl [Buspar] 15 mg PO BID #60 tablet 06/08/17 [Rx] DULoxetine [Cymbalta] 30 mg PO HS #30 capsule. 06/08/17 [Rx] Ipratropium/Albuterol Neb [Duoneb] 3 ml IH [id number] #160 inhsol 06/08/17 [Rx] Promethazine [Phenergan] 12.5 mg PO ACHS 20 Days #40 tablet 06/08/17 [Rx] Metoprolol [Lopressor] 12.5 mg PO BID PRN MDD SEE NOTE 06/13/17 [History] Potassium Chloride [K-Tab ER] 20 meq PO DAILY 06/13/17 [History] Sucralfate [Carafate] 10 ml PO BID 06/13/17 [History] Calcium Carbonate [Tums] 1,000 mg PO TID tab.chew 06/16/17 [Rx] GuaiFENesin ER [Mucinex] 1,200 mg PO BID PRN #60 tbbp.12hr 06/16/17 [Rx] OxyCODONE Immed Rel [Roxicodone 10 MG] 10 mg PO TID PRN 30 Days #90 tab [Rx] Prochlorperazine Maleate [Compazine] 10 mg PO Q8HR #90 tablet 06/18/17 [Rx] Melatonin [Melatin] 3 mg PO HS 06/21/17 [History] Cholecalciferol (D-3) [Vitamin D] 1,000 unit PO DAILY #30 tablet 06/28/17 [Rx] Acetylcysteine 10% 2 ml IH [id number] PRN inhsol 07/01/17 [Rx] Levofloxacin [Levaquin] 750 mg PO DAILY 5 Days #5 tablet 07/01/17 [Rx] Loratadine [Claritin] 10 mg PO DAILY 7 Days #7 tablet 07/01/17 [Rx] clonazePAM [Klonopin] 0.5 mg PO Q4H PRN 7 Days #28 tablet MDD 6 07/01/17 [Rx] predniSONE [PredniSONE] See Taper PO DAILY 26 Days #62 tablet 07/01/17 [Rx] Allergies/Adverse Reactions: 3 Allergy/AdvReac Type Severity Reaction Status Date / Time No Known Allergies Allergy Verified 07/01/17 09:38 Certification: Further, I certify that my clinical findings support that this patient is homebound (i.e. absences from home require considerable and taxing effort and are for medical reasons or taoist services or infrequently or short duration when for other reasons) because: small cell lung cancer with metastases, COPD, and chronic respiratory failure. Homebound Reason: Patient requires assistance of a person or device to safely leave home, Leaving home requires considerable and taxing effort due to condition, Severity of cardiac or pulmonary status limits activity tolerance Attestation: My signature below is to certify that this patient is under my care and that I, or nurse practitioner, or a physician's engineer first assistant working with me, has a face-to -face encounter with this patient.
[2017-07-01] MEDS ORDERED: Acetylcysteine 10% 2 ML INHSOL IH SCH (16:00)
[2017-07-02] MEDS ORDERED: *HR* Enoxaparin 40 MG/0.4 ML SYRINGE SQ SCH (06:00)
== END 2017-07-01 16:17 | disposition home health service (06) ==
LOC: EMEROO 16:36 → 2ANU 16:36
PROVIDERS: ADMIT Internal Medicine; ATTEND Internal Medicine

== ENCOUNTER 2017-07-17 14:09 | Inpatient (IN) ==
[2017-07-17] MEDS ORDERED: Ipratropium/Albuterol Neb 3 ML IH ONE ×4 (14:32→16:16)
[2017-07-17] MEDS ORDERED: methylPREDNISolone 125 MG/2 ML VIAL IVP ONE (14:39)
[2017-07-17] MEDS ORDERED: *HR* OxyCODONE/APAP 5/325 TABLET PO ONE ×2 (14:39→18:39)
[2017-07-17] MEDS ORDERED: Levofloxacin 750 MG/150 ML 750 MG/150 ML BAG IVPB ONE (14:40)
[2017-07-17 15:18] LABS: Basophils % 0.2 %; Eosinophils % 0.5 %; Hemoglobin 10.8 g/dL (11.5-15.4); Immature Granulocytes % 0.8 % (0-4); Lymphocytes # 1.4 K/mcL (0.6-4.6); Lymphocytes % 16.9 %; Mean Corpuscular HGB Conc 32.7 g/dL (31.6-35.5); Mean Corpuscular Hemoglobin 28.9 pg (28.0-33.3); Mean Corpuscular Volume 88.2 fL (83.0-100.0); Mean Platelet Volume 8.9 fL (9.4-12.4); Monocytes # 0.5 K/mcL (0.0-1.3); Neutrophils # 6.4 K/mcL (1.6-8.9); Platelet Count 472 K/mcL (140-400); Red Blood Count 3.74 M/mcL (3.82-4.97); Red Cell Distribution Width 14.1 % (11.5-14.5); Segmented Neutrophils % 75.6 %
[2017-07-17 15:22] LABS: INR 1.1; Prothrombin Time 11.6 Seconds (9.4-12.1)
[2017-07-17 15:25] LABS: Activated Partial Thrombo Time 24.1 Seconds (26.0-36.0)
[2017-07-17 15:35] LABS: Troponin I < 0.03 ng/mL (< 0.04)
[2017-07-17 15:42] LABS: BUN/Creatinine Ratio 15 (6-26); Blood Urea Nitrogen 7 mg/dL (8-23); Calcium 9.1 mg/dL (8.6-10.3); Carbon Dioxide 26 mEq/L (23-29); Chloride 91 mEq/L (98-107); Glucose 78 mg/dL (70-105); Osmolality,Calculated 263 (280-300); Sodium 128 mEq/L (136-145); eGFR For African Americans > 60 (> 60); eGFR For Non-African Americans > 60 (> 60)
--- NOTE | 2017-07-17 16:04 | Emergency Department Note ---
Disposition Clinical Impression: COPD exacerbation, History of lung cancer Disposition: Admitted As Inpatient Condition: Good Referrals: Ron Ward MD [Primary Care Provider] - Forms: ED Satisfaction Letter Time of Disposition: 18:10 SOB HPI - General Chief Complaint: ED Shortness of Breath/Dyspnea Stated Complaint: NOHELIA, low oxygen Source: patient Limitations: no limitations Nursing Notes Reviewed: Yes Vital Signs Reviewed: Yes - History of Present Illness This is a 61 year-old female with history of HTN, COPD on 2-3 L home O2, and small cell lung cancer (Dx 11/04, s/p chemo & radiation, currently on immunotherapy). She was sent over from the cancer center, where she received chemo, for acute on chronic dyspnea and decreased SpO2. Patient reports wheezing and severe dyspnea with exertion. She denies any fever, chest or other acute pain, edema, or leg pain. She was seen here 2 days ago with similar symptoms and discharged. Pt Subjective Complaint: shortness of breath Onset (ago): day(s) (2) Context: recent illness Severity: severe Consistency/Duration: gradually worsening Improves with: oxygen, bronchodilators Worsens with: nothing Known history of: COPD, other (lung cancer) Associated symptoms: Reports: cough (chronic, nonproductive), wheezing. Denies : chest pain, fever, sputum production, lower extremity pain Cough present: Yes Sputum production: No Sputum Amount: None - Related Data Home Medications Medication Instructions Recorded Confirmed Trazodone HCl 200 mg PO HS 02/15/16 07/05/17 Albuterol Sulfate [Albuterol 2 puff IH Q6H PRN 10/14/16 07/05/17 Inhaler] Budesonide/Formoterol 160/4.5 2 puff IH BIDR 10/14/16 07/05/17 [Symbicort 160/4.5] Oxygen 2 l NS AD 10/14/16 07/05/17 Metoprolol [Lopressor] 12.5 mg PO BID PRN MDD SEE NOTE 06/13/17 07/05/17 Potassium Chloride [K-Tab ER] 20 meq PO DAILY 06/13/17 07/05/17 Melatonin [Melatin] 3 mg PO HS 06/21/17 07/05/17 Previous Rx's Medication Instructions Recorded Calcium Carbonate/Vitamin D3 2 each PO DAILY #60 tablet 12/26/16 [Calcium 500 + Vit D Caplet] Omeprazole [PriLOSEC] 20 mg PO DAILY@0630 #30 capsule. 06/03/17 Albuterol Neb [Proventil Neb] 2.5 mg IH Q2H PRN #120 inhsol 06/08/17 Buspirone HCl [Buspar] 15 mg PO BID #60 tablet 06/08/17 DULoxetine [Cymbalta] 30 mg PO HS #30 capsule. 06/08/17 Ipratropium/Albuterol Neb [Duoneb] 3 ml IH [id number] #160 inhsol 06/08/17 Promethazine [Phenergan] 12.5 mg PO ACHS 20 Days #40 tablet 06/08/17 Calcium Carbonate [Tums] 1,000 mg PO TID tab.chew 06/16/17 GuaiFENesin ER [Mucinex] 1,200 mg PO BID PRN #60 tbbp.12hr 06/16/17 Prochlorperazine Maleate 10 mg PO Q8HR #90 tablet 06/18/17 [Compazine] Cholecalciferol (D-3) [Vitamin D] 1,000 unit PO DAILY #30 tablet 06/28/17 Acetylcysteine 10% 2 ml IH [id number] PRN inhsol 07/01/17 Levofloxacin [Levaquin] 750 mg PO DAILY 5 Days #5 tablet 07/01/17 Loratadine [Claritin] 10 mg PO DAILY 7 Days #7 tablet 07/01/17 clonazePAM [Klonopin] 0.5 mg PO Q4H PRN 7 Days #28 07/01/17 tablet MDD 6 predniSONE [PredniSONE] See Taper PO DAILY 26 Days #62 07/01/17 tablet OxyCODONE Immed Rel [Roxicodone 10 10 mg PO TID PRN 30 Days #90 tab 07/12/17 MG] Ipratropium/Albuterol Neb [Duoneb] 3 ml IH Q4HR #1 vial.neb 07/15/17 Promethazine [Phenergan] 12.5 mg PO Q8HR #24 tablet 07/15/17 Allergies Allergy/AdvReac Type Severity Reaction Status Date / Time No Known Allergies Allergy Verified 07/05/17 14:30 All systems ED: reviewed and negative except as stated. Constitutional: Reports: weakness (generalized). Denies: fever Cardiovascular: Reports: dyspnea on exertion. Denies: chest pain, edema Respiratory: Reports: cough (chronic, unchanged), dyspnea, wheezes. Denies: hemoptysis Gastrointestinal: Denies: abdominal pain, vomiting Musculoskeletal: Reports: back pain (chronic, attributed to compression fractures) Neurological: Denies: headache, weakness, numbness, paresthesias Past Medical History - Past Medical History Medical history: Reports: cancer, COPD, hypertension Surgical history: Reports: hysterectomy Psychiatric history: Reports: anxiety, depression PROGRAM OFFICER history: Reports: no PROGRAM OFFICER history - Social History Smoking Status: Former smoker Smokeless Tobacco Status: No Alcohol use: Reports: none Drug use: Reports: none Physical Exam - General Limitations: no limitations General appearance: alert, in no apparent distress - Head Head exam: atraumatic, normocephalic - Eye Eye exam: Present: normal appearance - ENT ENT exam: normal exam - Neck Neck exam: Present: normal inspection - Respiratory Respiratory exam: Present: respiratory distress (moderate to severe), wheezes, prolonged expiratory phase - Cardiovascular Cardiovascular exam: Present: regular rate, normal rhythm, normal heart sounds - Abdominal Exam Abdominal exam: Present: soft, Non-Tender. Absent: distention - Extremities Exam Extremities exam: Present: normal inspection. Absent: pedal edema, calf tenderness - Neurological Exam Neurological exam: Present: alert, oriented X3. Absent: motor sensory deficit - Psychiatric Psychiatric exam: Present: normal affect, normal mood - Skin Skin exam: Present: warm, dry, intact Course - Reevaluation(s) Reevaluation #1: Patient sitting up in bed, eating dinner. Clinically improved since arrival. Discussed test results and plans with patient. She is in agreement with admission. Time: 18:40 - Consultations Consultation #1: Paged hospitalist. Time: 18:41 Consultation #2: Reviewed case with Dr. Fry, and patient accepted for admission. Time: 18:57 Vital Signs Temperature 98.0 F 07/17/17 14:11 Pulse Rate 136 07/17/17 14:11 Respiratory Rate 36 07/17/17 14:11 Blood Pressure 154/84 07/17/17 14:11 O2 Sat by Pulse Oximetry 80 07/17/17 14:11 Temperature 98.0 F 07/17/17 14:24 Pulse Rate 136 07/17/17 14:24 Respiratory Rate 28 07/17/17 16:18 Blood Pressure 154/84 07/17/17 14:24 O2 Sat by Pulse Oximetry 95 07/17/17 16:18 Oxygen Delivery Oxygen Delivery Room Air Shortness of Breath/Dyspnea - Lab Data Lab results reviewed: Yes I reviewed the patient's lab results. Result diagrams: 07/17/17 15:03 07/17/17 15:03 Lab Results 07/17/17 07/17/17 07/17/17 Range/Units 15:03 15:03 15:03 WBC 8.5 (4.3-11.1) K/mcL RBC 3.74 L (3.82-4.97) M/mcL Hgb 10.8 L (11.5-15.4) g/dL Hct 33.0 L (35.3-44.9) % MCV 88.2 (83.0-100.0) fL MCH 28.9 (28.0-33.3) pg MCHC 32.7 (31.6-35.5) g/dL RDW 14.1 (11.5-14.5) % Plt Count 472 H (140-400) K/mcL MPV 8.9 L (9.4-12.4) fL Immature Gran % 0.8 (0-4) % Seg Neutrophils % 75.6 % Lymphocytes % 16.9 % Monocytes % 6.0 % Eosinophils % 0.5 % Basophils % 0.2 % Neutrophils # 6.4 (1.6-8.9) K/mcL Lymphocytes # 1.4 (0.6-4.6) K/mcL Monocytes # 0.5 (0.0-1.3) K/mcL Eosinophils # 0.0 (0.0-0.6) K/mcL Basophils # 0.0 (0.0-0.2) K/mcL PT 11.6 (9.4-12.1) Seconds INR 1.1 APTT 24.1 L (26.0-36.0) Seconds Sodium 128 L (136-145) mEq/L Potassium 4.0 (3.5-5.1) mEq/L Chloride 91 L (98-107) mEq/L Carbon Dioxide 26 (23-29) mEq/L BUN 7 L (8-23) mg/dL Creatinine 0.46 L (0.60-1.20) mg/dL Est GFR ( Amer) > 60 (> 60) Est GFR (Non-Af Amer) > 60 (> 60) BUN/Creatinine Ratio 15 (6-26) Glucose 78 (70-105) mg/dL Calculated Osmolality 263 L (280-300) Lactic Acid (0.5-2.2) mmol/L Calcium 9.1 (8.6-10.3) mg/dL Troponin I < 0.03 (< 0.04) ng/mL B-Natriuretic Peptide (Less than 100) pg/mL 07/17/17 07/17/17 07/17/17 Range/Units 15:03 15:03 17:07 WBC (4.3-11.1) K/mcL RBC (3.82-4.97) M/mcL Hgb (11.5-15.4) g/dL Hct (35.3-44.9) % MCV (83.0-100.0) fL MCH (28.0-33.3) pg MCHC (31.6-35.5) g/dL RDW (11.5-14.5) % Plt Count (140-400) K/mcL MPV (9.4-12.4) fL Immature Gran % (0-4) % Seg Neutrophils % % Lymphocytes % % Monocytes % % Eosinophils % % Basophils % % Neutrophils # (1.6-8.9) K/mcL Lymphocytes # (0.6-4.6) K/mcL Monocytes # (0.0-1.3) K/mcL Eosinophils # (0.0-0.6) K/mcL Basophils # (0.0-0.2) K/mcL PT (9.4-12.1) Seconds INR APTT (26.0-36.0) Seconds Sodium (136-145) mEq/L Potassium (3.5-5.1) mEq/L Chloride (98-107) mEq/L Carbon Dioxide (23-29) mEq/L BUN (8-23) mg/dL Creatinine (0.60-1.20) mg/dL Est GFR ( Amer) (> 60) Est GFR (Non-Af Amer) (> 60) BUN/Creatinine Ratio (6-26) Glucose (70-105) mg/dL Calculated Osmolality (280-300) Lactic Acid 2.0 1.1 (0.5-2.2) mmol/L Calcium (8.6-10.3) mg/dL Troponin I (< 0.04) ng/mL B-Natriuretic Peptide 38 (Less than 100) pg/mL - Radiology Data Radiology results reviewed: Yes I reviewed the patient's radiology results. XR/XR chest 1V portable IMPRESSION: COPD with new left basilar airspace disease concerning for superimposed pneumonia. Follow-up to resolution recommended. Questionable mild right basilar airspace disease. This can be re-evaluated at time of follow-up.
[2017-07-17] MEDS ORDERED: 0.9 % Sodium Chloride 500 ML IVC ONE (16:05)
[2017-07-17] MEDS ORDERED: Isovue-370 500 ML INFUS..BTL IV ONE (16:09)
[2017-07-17] MEDS ORDERED: Acetaminophen 325 MG TABLET PO PRN (20:27)
[2017-07-17] MEDS ORDERED: Naloxone 0.4 MG/ML INJ IVP PRN (20:29)
--- NOTE | 2017-07-17 20:34 | Internal Med History&Physical ---
Date of Encounter: 07/17/17 Time of Encounter: 20:32 Internal Medicine - H&P: HPI Chief complaint: Shortness of breath Admitted From: Emergency Dept History of present illness: Ms. Keenan is a 61 year old female with a past medical history of COPD oxygen dependent using 2-3 L, small cell carcinoma of the lung status post radiation chemotherapy, currently on immunotherapy with metastasis to the liver and also lymphangitic carcinomatosis, recently discharged from this hospital on 07/01/2017 which she was treated for a similar presentation. For the past few days the patient has been getting worse complaining of a dry cough and more short of breath. Chest x-ray showed a possible left lower lobe pneumonia the CT angios the chest was performed showing no pulmonary emboli, again showing possibly metastatic disease with bilateral bronchiolitis and peribronchial infiltrates also hepatic metastasis. The patient was started on Solu-Medrol and Levaquin at the emergency room, sodium is 128 platelets 472. Appears to be in respiratory distress. 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 status post chemotherapy and radiation and immunotherapy with Ipilimumab and Nivolumab, hypertension, chronic respiratory failure COPD oxygen dependent 2-3 L, hyponatremia, remote history of tobacco abuse, osteoporosis), COPD, hypertension Additional medical history: lung cancer Psychiatric history: anxiety, depression - Past Surgical History Surgical History: hysterectomy - Social History Smoking Status: Former smoker Smokeless Tobacco Status: No Alcohol use: none Drug use: none - Family History Sister Adopted: No Family Member Ethnicity: Non- Living Status: Still Living Hx Family Cardiac Disorders: Yes (HTN) Hx Family Respiratory Disorders: No Hx Family Cancer: Yes (Lymphoma) Hx Family GI Disorders: No Hx Family Endocrine Disorder: No Hx Family Neuromuscular Disorders: No Hx Family Neurologic Disorders: No Hx Family HEENT Disorders: No Hx Family Autoimmune Disorders: No Mother Family Member Ethnicity: Non- Living Status: Hx Family Cardiac Disorders: Yes (hypertension,) Hx Family Respiratory Disorders: Yes (COPD) Hx Family Cancer: No Hx Family GI Disorders: No Hx Family Endocrine Disorder: No Hx Family Neuromuscular Disorders: No Hx Family Neurologic Disorders: Yes (Alzheimers) Hx Family HEENT Disorders: No Father Adopted: No Family Member Ethnicity: Non- Living Status: Hx Family Cardiac Disorders: Yes Hx Family Respiratory Disorders: Yes (mother copd) Hx Family Cancer: No Hx Family GI Disorders: No Hx Family Endocrine Disorder: No Hx Family Neuromuscular Disorders: No Hx Family Neurologic Disorders: No Hx Family HEENT Disorders: No Hx Family Autoimmune Disorders: No - Additional Family History Additional family history: Denies any history Internal Medicine - H&P: Meds Trazodone HCl 200 mg PO HS 02/15/16 [History] Albuterol Sulfate [Albuterol Inhaler] 2 puff IH Q6H PRN 10/14/16 [History] Budesonide/Formoterol 160/4.5 [Symbicort 160/4.5] 2 puff IH BIDR 10/14/16 [ History] Oxygen 2 l NS AD 10/14/16 [History] Omeprazole [PriLOSEC] 20 mg PO DAILY@0630 #30 capsule. 06/03/17 [Rx] Albuterol Neb [Proventil Neb] 2.5 mg IH Q2H PRN #120 inhsol 06/08/17 [Rx] Buspirone HCl [Buspar] 15 mg PO BID #60 tablet 06/08/17 [Rx] DULoxetine [Cymbalta] 30 mg PO HS #30 capsule. 06/08/17 [Rx] Metoprolol [Lopressor] 12.5 mg PO BID PRN MDD SEE NOTE 06/13/17 [History] Potassium Chloride [K-Tab ER] 20 meq PO DAILY 06/13/17 [History] Calcium Carbonate [Tums] 1,000 mg PO TID tab.chew 06/16/17 [Rx] Melatonin [Melatin] 3 mg PO HS 06/21/17 [History] Cholecalciferol (D-3) [Vitamin D] 1,000 unit PO DAILY #30 tablet 06/28/17 [Rx] Loratadine [Claritin] 10 mg PO DAILY 7 Days #7 tablet 07/01/17 [Rx] clonazePAM [Klonopin] 0.5 mg PO Q4H PRN 7 Days #28 tablet MDD 6 07/01/17 [Rx] OxyCODONE Immed Rel [Roxicodone 10 MG] 10 mg PO TID PRN 30 Days #90 tab [Rx] Ipratropium/Albuterol Neb [Duoneb] 3 ml IH Q4HR #1 vial.neb 07/15/17 [Rx] Promethazine [Phenergan] 12.5 mg PO Q8HR #24 tablet 07/15/17 [Rx] 3 Allergy/AdvReac Type Severity Reaction Status Date / Time No Known Allergies Allergy Verified 07/05/17 14:30 All Systems PM: A 10-system review of systems was performed and is negative for pertinent findings except as documented above in the HPI. Review of systems: Denies any chest pain, no fevers, other systems out of the 10 reviewed were negative - Constitutional Vitals: Temp Pulse Resp BP Pulse Ox 98.0 F 136 28 154/84 95 07/17/17 14:24 07/17/17 14:24 07/17/17 16:18 07/17/17 14:24 07/17/17 16:18 General appearance: Present: A&O X 3, underweight (Cachectic) - Head Head exam: Present: atraumatic, normocephalic - Eye Eye exam: Present: PERRL, conjuntiva pink, sclera anicteric Pupils: Present: PERRL - Neck Neck exam general surgery: Present: supple, trachea midline. Absent: lymphadenopathy - Respiratory Respiratory exam: Present: CTAB, rales, wheezes (Diffuse wheezing and crackles) . Absent: accessory muscle use, rhonchi - Cardiovascular Cardiovascular exam: Present: RRR, +S1, +S2. Absent: diastolic murmur, gallop, rubs, systolic murmur - GI/Abdominal GI/Abdominal exam: Present: normal bowel sounds, soft, no peritoneal signs. Absent: distended, tenderness - Extremities Exam Extremities exam: Present: warm, radial pulses palpable and symmetrical. Absent : calf tenderness, cyanotic, pedal edema - Neurological Exam Neurological exam: Present: CN II-XII intact, oriented X3, no focal deficits. Absent: pronater drift, facial droop, speech deficit - Skin Skin exam: Present: dry, intact Internal Med - H&P Results - Labs CBC & Chem 7: 07/17/17 15:03 07/17/17 15:03 - Assessment and plan (1) Acute exacerbation of chronic obstructive airways disease Current Visit: No Status: Acute Assessment and plan: Acute on chronic hypoxic respiratory failure secondary to acute COPD exacerbation due to healthcare associated pneumonia present upon admissions in the setting of metastatic lung cancer with lymphangitic carcinomatosis Continue oxygen therapy Levaquin, cefepime, Solu-Medrol and DuoNeb's IV fluids, blood cultures and sputum cultures Omeprazole for GI prophylaxis and Lovenox for DVT prophylaxis, the patient will be admitted for observation, DNR CCA DNI, time spent on this admission 40 minutes (2) HCAP (healthcare-associated pneumonia) Current Visit: No Status: Acute (3) Compression fracture of body of thoracic vertebra Current Visit: No Status: Chronic (4) HTN (hypertension) Current Visit: No Status: Chronic Assessment and plan: Stable Qualifiers: Hypertension type: essential hypertension Qualified Code(s): I10 - Essential (primary) hypertension (5) Metastatic lung cancer (metastasis from lung to other site) Current Visit: No Status: Chronic Qualifiers: Laterality: unspecified laterality Qualified Code(s): C34.90 - Malignant neoplasm of unspecified part of unspecified bronchus or lung (6) Protein-calorie malnutrition, severe Current Visit: No Status: Chronic (7) Small cell 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 Current Visit: No Status: Chronic (8) Hyponatremia Current Visit: No Status: Chronic Assessment and plan: Possibly related to small cell carcinoma of the lung - Time Spent With Patient Total time spent is greater than 50% in coordination of care (as documented) at patient's floor/unit and/or counseling patient:
[2017-07-17] MEDS ORDERED: traMADol 50 MG TABLET PO SCH (21:00)
[2017-07-17] MEDS: 0.9 % Sodium Chloride 1,000 ML IVC SCH (22:02)
[2017-07-17] MEDS: Melatonin 3 MG TABLET PO SCH (22:06)
[2017-07-17] MEDS: clonazePAM 0.5 MG TABLET PO PRN (22:06)
[2017-07-17] MEDS: Cefepime HCl 1,000 MG in Water for inj. (sterile) 20 ML 10 ML IVPB SCH (22:06)
[2017-07-17] MEDS: Ipratropium/Albuterol Neb 3 ML IH SCH (23:15)
[2017-07-18] MEDS: MethylPREDNISolone 40 MG/ML VIAL IVP SCH ×3 (00:35→17:16)
[2017-07-18] MEDS: Ipratropium/Albuterol Neb 3 ML IH SCH ×5 (03:40→20:29)
[2017-07-18 05:26] LABS: BUN/Creatinine Ratio 18 (6-26); Blood Urea Nitrogen 7 mg/dL (8-23); Calcium 8.8 mg/dL (8.6-10.3); Carbon Dioxide 27 mEq/L (23-29); Chloride 92 mEq/L (98-107); Glucose 162 mg/dL (70-105); Osmolality,Calculated 264 (280-300); Potassium 4.3 mEq/L (3.5-5.1); Sodium 126 mEq/L (136-145); eGFR For African Americans > 60 (> 60); eGFR For Non-African Americans > 60 (> 60)
[2017-07-18] MEDS: *HR* Enoxaparin 40 MG/0.4 ML SYRINGE SQ SCH (06:21)
[2017-07-18] MEDS: *HR* OxyCODONE Immed Rel 5 MG TABLET PO PRN ×3 (06:21→23:09)
--- NOTE | 2017-07-18 07:16 | Electrocardiograph Report ---
[address] [address] Test Date: 2017-07-17 Pat Name: Domi Keenan Department: 102 Room: 2N1 Gender: F [employer]: Isidro : 1955 Requested By: Eduard Kraus Order Number: [id number] Reading MD: Tj Singh Measurements Intervals [place] Rate: 132 P: 76 [place]: 145 QRS: 8 QRSD: 81 T: 73 QT: 276 QTc: 354 Interpretive Statements SINUS TACHYCARDIA Electronically Signed On 07-18-2017 7:14:47 EDT by Tj Singh
[2017-07-18] MEDS ORDERED: Ondansetron 4 MG/2 ML VIAL IVP PRN (07:31)
[2017-07-18] MEDS: clonazePAM 0.5 MG TABLET PO PRN ×4 (07:39→23:09)
[2017-07-18] MEDS: Cholecalciferol (D-3) 1,000 UNIT TABLET PO SCH (08:28)
[2017-07-18] MEDS: Cefepime HCl 1,000 MG in Water for inj. (sterile) 20 ML 10 ML IVPB SCH ×2 (08:29→23:14)
[2017-07-18] MEDS: Levofloxacin 750 MG/150 ML 750 MG/150 ML BAG IVPB SCH (08:29)
--- NOTE | 2017-07-18 09:07 | Internal Med Progress Note ---
<Scott Alonzo - Last Filed: 07/18/17 14:47> Date of Encounter: 07/18/17 Time of Encounter: 09:03 - Assessment and plan (1) Acute exacerbation of chronic obstructive airways disease Current Visit: Yes Status: Acute Assessment and plan: Acute on chronic hypoxic respiratory failure secondary to acute COPD exacerbation likely due to pneumonia present upon admissions in the setting of metastatic lung cancer with lymphangitic carcinomatosis Continue oxygen therapy, satting well on 3L nasal cannula. -continue Levaquin and Cefepime d2, start Vancomycin based on prior Sputum cultures sensitivities. -Continue with solumedrol and duonebs -blood cultures and sputum cultures (2) Small cell 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 Current Visit: No Status: Chronic Assessment and plan: History of small cell lung cancer completed chemoradiation and currently on immunotherapy. (3) Metastatic lung cancer (metastasis from lung to other site) Current Visit: No Status: Chronic Qualifiers: Laterality: unspecified laterality Qualified Code(s): C34.90 - Malignant neoplasm of unspecified part of unspecified bronchus or lung (4) Hyponatremia Current Visit: No Status: Chronic Assessment and plan: Chronic hyponatremia, Na 126 this morning. -Continue with IV fluids. Possibly related to small cell carcinoma of the lung (5) Protein-calorie malnutrition, severe Current Visit: Yes Status: Chronic Assessment and plan: Nutrition consult placed. (6) HTN (hypertension) Current Visit: No Status: Chronic Assessment and plan: Bp controlled. Continue home med for chronic disease management. Qualifiers: Hypertension type: essential hypertension Qualified Code(s): I10 - Essential (primary) hypertension (7) Compression fracture of body of thoracic vertebra Current Visit: No Status: Chronic (8) Pneumonia Current Visit: Yes Status: Acute Assessment and plan: per plan in assessment above. CXR with COPD findings and new lef basilar airspace disease concerning for pnuemonia. CTA revealed COPD with pleural-based lesion in upper left lobe adjacent to rib sclerosis which is worrisome for mets. Also bilateral bronchiolitis with bibasilar peribronchial infiltrates. -Continue d2 Levaquin and Cefepime,start Vancomycin. Qualifiers: Pneumonia type: due to unspecified organism Laterality: left Lung location: upper lobe of lung Qualified Code(s): J18.1 - Lobar pneumonia, unspecified organism - Time Spent With Patient Total time spent is greater than 50% in coordination of care (as documented) at patient's floor/unit and/or counseling patient: - Subjective Interval history: Ms. Keenan is doing better this morning. Reports still some shortness of breath and cough, but nonproductive and no hemoptysis. Denies fevers, chills, nausea, vomiting, abdominal pain, changes in bowels or bladder, weakness, or loss of sensation. - Constitutional Vitals: Temp Pulse Resp BP Pulse Ox 97.7 F 98 16 149/87 98 07/18/17 07:02 07/18/17 07:02 07/18/17 07:49 07/18/17 07:02 07/18/17 07:49 General appearance: Present: A&O X 3, no acute distress, underweight (Cachectic) , answers questions appropriately - Head Head exam: Present: atraumatic, normal inspection, normocephalic - Eye Eye exam: Present: EOMI, normal appearance - ENT ENT exam: Present: mucous membranes moist, normal exam - Neck Neck exam general surgery: Present: full ROM, normal inspection, supple - Respiratory Respiratory exam: Present: rhonchi. Absent: rales, respiratory distress, wheezes - Cardiovascular Cardiovascular exam: Present: RRR, +S1, +S2 - GI/Abdominal GI/Abdominal exam: Present: normal bowel sounds, soft. Absent: distended, tenderness - Extremities Exam Extremities exam: Present: normal inspection, warm, radial pulses palpable and symmetrical. Absent: pedal edema - Skin Skin exam: Present: dry, intact, normal color, warm Internal Medicine: Result - Labs CBC & Chem 7: 07/17/17 15:03 07/18/17 04:37 Labs: BMP 07/18/17 04:37 Sodium 126 L Potassium 4.3 Chloride 92 L Carbon Dioxide 27 BUN 7 L Creatinine 0.38 L Glucose 162 H Calcium 8.8 - ABG Interpretation ABG results: PT/INR, D-dimer PT 11.6 Seconds (9.4-12.1) 07/17/17 15:03 Consult Discharge Plan - Plan Referrals: Ron Ward MD [Primary Care Provider] - <Juliano Pepe - Last Filed: 07/18/17 16:11> Date of Encounter: 07/18/17 - Assessment and plan (1) Hyponatremia Current Visit: No Status: Chronic (2) Small cell 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 Current Visit: No Status: Chronic (3) Compression fracture of body of thoracic vertebra Current Visit: No Status: Chronic (4) Acute exacerbation of chronic obstructive airways disease Current Visit: Yes Status: Acute (5) Protein-calorie malnutrition, severe Current Visit: Yes Status: Chronic (6) HTN (hypertension) Current Visit: No Status: Chronic Qualifiers: Hypertension type: essential hypertension Qualified Code(s): I10 - Essential (primary) hypertension (7) Metastatic lung cancer (metastasis from lung to other site) Current Visit: No Status: Chronic Qualifiers: Laterality: unspecified laterality Qualified Code(s): C34.90 - Malignant neoplasm of unspecified part of unspecified bronchus or lung (8) Pneumonia Current Visit: Yes Status: Acute Qualifiers: Pneumonia type: due to other aerobic Gram-negative bacteria Laterality: left Lung location: upper lobe of lung Qualified Code(s): J15.6 - Pneumonia due to other Gram-negative bacteria - Time Spent With Patient Total time spent is greater than 50% in coordination of care (as documented) at patient's floor/unit and/or counseling patient: - Constitutional Vitals: Temp Pulse Resp BP Pulse Ox 97.3 F L 108 16 158/96 98 07/18/17 15:25 07/18/17 15:25 07/18/17 15:25 07/18/17 15:25 07/18/17 15:25 Internal Medicine: Result - Labs CBC & Chem 7: 07/17/17 15:03 07/18/17 04:37 Labs: BMP 07/18/17 04:37 Sodium 126 L Potassium 4.3 Chloride 92 L Carbon Dioxide 27 BUN 7 L Creatinine 0.38 L Glucose 162 H Calcium 8.8 - ABG Interpretation ABG results: PT/INR, D-dimer PT 11.6 Seconds (9.4-12.1) 07/17/17 15:03 - Attending Attestation I examined this patient and my medical decision-making was reviewed with the Resident Physician on 07/18/17. I agree with the documented findings, disposition and treatment plan as described except to the extent set forth below. Ms Keenan is currently admitted for acute respiratory failure following treatment for lung cancer. She remains moderate to high risk due to potential for worsening clinical and respiratory status. Ms Keenan is having back pain. No fever or chills. SOB persists. No GI issues. Exam alert Comfortable Mucus membranes dry Heart distant Wheeze noted Abd soft I/P 1. COPD 2. Lung cancer Further diagnoses and plan as above.
[2017-07-18] MEDS: Promethazine 12.5 MG in 0.9 % Sodium Chloride 50 ML IVPB PRN ×2 (10:40→17:24)
[2017-07-18] MEDS: 0.9 % Sodium Chloride 1,000 ML IVC SCH (13:25)
[2017-07-18] MEDS: traMADol 50 MG TABLET PO PRN (18:28)
[2017-07-18] MEDS: Melatonin 3 MG TABLET PO SCH (23:06)
[2017-07-18] MEDS: traZODone 50 MG TABLET PO SCH (23:06)
[2017-07-19] MEDS: MethylPREDNISolone 40 MG/ML VIAL IVP SCH ×2 (00:15→07:48)
[2017-07-19] MEDS: Ipratropium/Albuterol Neb 3 ML IH SCH ×6 (00:43→23:36)
[2017-07-19] MEDS: Promethazine 12.5 MG in 0.9 % Sodium Chloride 50 ML IVPB PRN ×2 (01:10→12:59)
[2017-07-19 05:05] LABS: BUN/Creatinine Ratio 21 (6-26); Blood Urea Nitrogen 8 mg/dL (8-23); Calcium 8.6 mg/dL (8.6-10.3); Carbon Dioxide 28 mEq/L (23-29); Chloride 97 mEq/L (98-107); Glucose 181 mg/dL (70-105); Osmolality,Calculated 271 (280-300); Potassium 4.2 mEq/L (3.5-5.1); Sodium 129 mEq/L (136-145); eGFR For African Americans > 60 (> 60); eGFR For Non-African Americans > 60 (> 60)
[2017-07-19] MEDS: *HR* Enoxaparin 40 MG/0.4 ML SYRINGE SQ SCH (05:57)
[2017-07-19] MEDS: Cefepime HCl 1,000 MG in Water for inj. (sterile) 20 ML 10 ML IVPB SCH ×2 (05:58→20:45)
[2017-07-19] MEDS: 0.9 % Sodium Chloride 1,000 ML IVC SCH (05:59)
[2017-07-19] MEDS: Cholecalciferol (D-3) 1,000 UNIT TABLET PO SCH (07:48)
[2017-07-19] MEDS: Levofloxacin 750 MG/150 ML 750 MG/150 ML BAG IVPB SCH (07:49)
[2017-07-19] MEDS: *HR* OxyCODONE Immed Rel 5 MG TABLET PO PRN ×3 (09:32→20:49)
--- NOTE | 2017-07-19 09:47 | Internal Med Progress Note ---
<Scott Alonzo - Last Filed: 07/19/17 13:18> Date of Encounter: 07/19/17 Time of Encounter: 09:47 - Assessment and plan (1) Acute exacerbation of chronic obstructive airways disease Current Visit: Yes Status: Acute Assessment and plan: Acute on chronic hypoxic respiratory failure secondary to acute COPD exacerbation likely due to pneumonia present upon admissions in the setting of metastatic lung cancer with lymphangitic carcinomatosis Continue oxygen therapy, satting well on 3L nasal cannula. Blood culture prelim no growth -continue Levaquin and Cefepime d3, start Vancomycin d2 based on prior Sputum cultures sensitivities. -Continue with solumedrol (q12h) and duonebs -blood cultures and sputum cultures (2) Small cell 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 Current Visit: No Status: Chronic Assessment and plan: History of small cell lung cancer completed chemoradiation and currently on immunotherapy. (3) Metastatic lung cancer (metastasis from lung to other site) Current Visit: No Status: Chronic Qualifiers: Laterality: unspecified laterality Qualified Code(s): C34.90 - Malignant neoplasm of unspecified part of unspecified bronchus or lung (4) Hyponatremia Current Visit: No Status: Chronic Assessment and plan: Chronic hyponatremia, Na 129 this morning, from 126. -Continue with IV fluids. Possibly related to small cell carcinoma of the lung (5) Protein-calorie malnutrition, severe Current Visit: Yes Status: Chronic Assessment and plan: Nutrition consult placed. (6) HTN (hypertension) Current Visit: No Status: Chronic Assessment and plan: Bp controlled. Continue home med for chronic disease management. Qualifiers: Hypertension type: essential hypertension Qualified Code(s): I10 - Essential (primary) hypertension (7) Compression fracture of body of thoracic vertebra Current Visit: No Status: Chronic (8) Pneumonia Current Visit: Yes Status: Acute Assessment and plan: per plan in assessment above. CXR with COPD findings and new lef basilar airspace disease concerning for pnuemonia. CTA revealed COPD with pleural-based lesion in upper left lobe adjacent to rib sclerosis which is worrisome for mets. Also bilateral bronchiolitis with bibasilar peribronchial infiltrates. -Continue d2 Levaquin and Cefepime,start Vancomycin. Qualifiers: Pneumonia type: due to other aerobic Gram-negative bacteria Laterality: left Lung location: upper lobe of lung Qualified Code(s): J15.6 - Pneumonia due to other Gram-negative bacteria - Time Spent With Patient Total time spent is greater than 50% in coordination of care (as documented) at patient's floor/unit and/or counseling patient: - Subjective Interval history: Ms. Keenan is doing better this morning. Pain is much better controlled. Reports still some shortness of breath and cough, but nonproductive and no hemoptysis. Denies fevers, chills, nausea, vomiting, abdominal pain, changes in bowels or bladder, weakness, or loss of sensation. - Constitutional Vitals: Temp Pulse Resp BP Pulse Ox 97.8 F 86 18 145/87 96 07/19/17 07:15 07/19/17 07:15 07/19/17 07:27 07/19/17 07:15 07/19/17 07:27 General appearance: Present: A&O X 3, no acute distress, underweight (Cachectic) , answers questions appropriately - Head Head exam: Present: atraumatic, normal inspection, normocephalic - Eye Eye exam: Present: EOMI, normal appearance - ENT ENT exam: Present: mucous membranes moist - Neck Neck exam general surgery: Present: full ROM - Respiratory Respiratory exam: Present: rhonchi. Absent: rales, respiratory distress, wheezes - Cardiovascular Cardiovascular exam: Present: RRR, +S1, +S2 - GI/Abdominal GI/Abdominal exam: Present: normal bowel sounds, soft. Absent: distended, tenderness - Extremities Exam Extremities exam: Present: full ROM, normal inspection, warm, radial pulses palpable and symmetrical. Absent: pedal edema - Skin Skin exam: Present: dry, intact, normal color, warm. Absent: rash Internal Medicine: Result - Labs CBC & Chem 7: 07/17/17 15:03 07/19/17 04:04 Labs: BMP 07/19/17 04:04 Sodium 129 L Potassium 4.2 Chloride 97 L Carbon Dioxide 28 BUN 8 Creatinine 0.38 L Glucose 181 H Calcium 8.6 - ABG Interpretation ABG results: PT/INR, D-dimer PT 11.6 Seconds (9.4-12.1) 07/17/17 15:03 Consult Discharge Plan - Plan Referrals: Ron Ward MD [Primary Care Provider] - <Juliano Pepe - Last Filed: 06/01/18 17:44> Date of Encounter: 07/19/17 - Assessment and plan (1) Hyponatremia Current Visit: No Status: Chronic (2) Small cell 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 Current Visit: No Status: Chronic (3) Compression fracture of body of thoracic vertebra Current Visit: No Status: Chronic (4) Acute exacerbation of chronic obstructive airways disease Current Visit: Yes Status: Acute (5) Protein-calorie malnutrition, severe Current Visit: Yes Status: Chronic (6) HTN (hypertension) Current Visit: No Status: Chronic Qualifiers: Hypertension type: essential hypertension Qualified Code(s): I10 - Essential (primary) hypertension (7) Metastatic lung cancer (metastasis from lung to other site) Current Visit: No Status: Chronic Qualifiers: Laterality: unspecified laterality Qualified Code(s): C34.90 - Malignant neoplasm of unspecified part of unspecified bronchus or lung (8) Pneumonia Current Visit: Yes Status: Acute Qualifiers: Pneumonia type: due to other aerobic Gram-negative bacteria Laterality: left Lung location: upper lobe of lung Qualified Code(s): J15.6 - Pneumonia due to other Gram-negative bacteria - Time Spent With Patient Total time spent is greater than 50% in coordination of care (as documented) at patient's floor/unit and/or counseling patient: - Constitutional Vitals: Temp Pulse Resp BP Pulse Ox 97.8 F 90 18 141/85 97 07/19/17 14:47 07/19/17 14:47 07/19/17 15:22 07/19/17 14:47 07/19/17 15:22 Internal Medicine: Result - Labs CBC & Chem 7: 07/17/17 15:03 07/19/17 04:04 Labs: BMP 07/19/17 04:04 Sodium 129 L Potassium 4.2 Chloride 97 L Carbon Dioxide 28 BUN 8 Creatinine 0.38 L Glucose 181 H Calcium 8.6 - ABG Interpretation ABG results: PT/INR, D-dimer PT 11.6 Seconds (9.4-12.1) 07/17/17 15:03 - Attending Attestation I examined this patient and my medical decision-making was reviewed with the Resident Physician on 07/19/17. I agree with the documented findings, disposition and treatment plan as described except to the extent set forth below. Ms Keenan is currently admitted for COPD exacerbation. She remains moderate to high risk due to potential for worsening clinical status. Ms Keenan continues to have nausea. Breathing slowly improving. No fever or chills. Less cough. Exam alert Comfortable Mucus membranes dry Heart distant Diffuse rhonchi heard Abd soft I/P 1. PNA 2. COPD Further diagnoses and plan as above
[2017-07-19] MEDS: clonazePAM 0.5 MG TABLET PO PRN ×2 (11:37→16:18)
[2017-07-19] MEDS ORDERED: Promethazine 12.5 MG in 0.9 % Sodium Chloride 50 ML IVPB PRN (17:00)
[2017-07-19] MEDS ORDERED: MethylPREDNISolone 40 MG/ML VIAL IVP SCH (18:00)
[2017-07-19] MEDS ORDERED: Furosemide 20 MG/2 ML VIAL IVP ONE (18:35)
[2017-07-19] MEDS ORDERED: *HR* LORazepam 2 MG/ML VIAL IVP ONE (19:35)
[2017-07-19] MEDS ORDERED: *HR* LORazepam 2 MG/ML VIAL ONE (19:36)
[2017-07-19 19:44] LABS: ABG Base Excess 5 mEq/L (-2 to 3); ABG HCO3 30 mEq/L (21-27); ABG Oxygen Saturation 94 % (95-98); ABG PCO2 44 mmHg (35-45); ABG PH 7.44 pH Units (7.32-7.45); ABG PO2 68 mmHg (85-104); ABG TCO2 31 mEq/L (20-26)
[2017-07-19] MEDS ORDERED: Ipratropium/Albuterol Neb 3 ML IH PRN (19:46)
[2017-07-19] MEDS: traZODone 50 MG TABLET PO SCH (20:44)
[2017-07-19] MEDS: Melatonin 3 MG TABLET PO SCH (20:44)
--- NOTE | 2017-07-19 23:09 | Event Note ---
Date of Encounter: 07/19/17 Time of Encounter: 19:30 Rapid response called around 7:20. Patient with respiratory distress. Vitals are stable but is on supplemental O2. She is having abdominal breathing and conversational dyspnea. Respiratory sounds are diminshed. Earlier in the day she was on IV fluids and those were stopped and lasix was ordered which was not given as of the time of the rapid response She is here with COPD exacerbation/hyponatremia. Has history of metastatic lung cancer. The patient is DNR/DNI CCA. Will get a CXR, ABG, give lasix that was ordered earlier, EKG Will place the patient on Bipap and give .5 mg IV ativan. Will follow up on the patient later into my shift.
[2017-07-20] MEDS: Ipratropium/Albuterol Neb 3 ML IH SCH ×5 (03:56→19:55)
[2017-07-20 04:37] LABS: BUN/Creatinine Ratio 22 (6-26); Blood Urea Nitrogen 8 mg/dL (8-23); Carbon Dioxide 32 mEq/L (23-29); Chloride 88 mEq/L (98-107); Glucose 122 mg/dL (70-105); Osmolality,Calculated 262 (280-300); Potassium 3.9 mEq/L (3.5-5.1); Sodium 126 mEq/L (136-145); eGFR For African Americans > 60 (> 60); eGFR For Non-African Americans > 60 (> 60)
[2017-07-20] MEDS: *HR* OxyCODONE Immed Rel 5 MG TABLET PO PRN ×2 (06:16→18:43)
[2017-07-20] MEDS: *HR* Enoxaparin 40 MG/0.4 ML SYRINGE SQ SCH (06:16)
[2017-07-20] MEDS: Ipratropium/Albuterol Neb 3 ML IH PRN ×2 (07:01→09:05)
[2017-07-20] MEDS: Levofloxacin 750 MG/150 ML 750 MG/150 ML BAG IVPB SCH (08:26)
[2017-07-20] MEDS: clonazePAM 0.5 MG TABLET PO PRN ×2 (08:27→21:00)
[2017-07-20] MEDS: Cefepime HCl 1,000 MG in Water for inj. (sterile) 20 ML 10 ML IVPB SCH (08:27)
[2017-07-20] MEDS: Cholecalciferol (D-3) 1,000 UNIT TABLET PO SCH (08:29)
[2017-07-20] MEDS ORDERED: Aminoglycoside Consult 1 EACH MC ONE (08:33)
[2017-07-20] MEDS ORDERED: predniSONE 20 MG TABLET PO SCH (09:00)
--- NOTE | 2017-07-20 09:01 | Internal Med Progress Note ---
<Scott Alonzo - Last Filed: 07/20/17 13:51> Date of Encounter: 07/20/17 Time of Encounter: 08:59 - Assessment and plan (1) Acute exacerbation of chronic obstructive airways disease Current Visit: Yes Status: Acute Assessment and plan: Acute on chronic hypoxic respiratory failure secondary to acute COPD exacerbation likely due to pneumonia present upon admission in the setting of metastatic lung cancer with lymphangitic carcinomatosis Continue with Bipap as needed for respiratory distress Continue oxygen supplementation. Blood culture prelim no growth -continue Levaquin and Cefepime d4, Vancomycin d3 based on prior Sputum cultures sensitivities. -discontinued order for oral prednisone as she has had worsening status overnight and this morning. -Continue with solumedrol (q12h) and duonebs q4h scheduled and q2h prn. -blood cultures and sputum cultures -Pulmonology consulted. (On disharge send with spiriva and daliresp, continue symbicort) -Continue with Bipap and NPO, if able to tolerate Bipap break for 1 hour, may start clear liquid diet. (2) Small cell 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 Current Visit: No Status: Chronic Assessment and plan: History of small cell lung cancer completed chemoradiation and currently on immunotherapy. (3) Metastatic lung cancer (metastasis from lung to other site) Current Visit: No Status: Chronic Qualifiers: Laterality: unspecified laterality Qualified Code(s): C34.90 - Malignant neoplasm of unspecified part of unspecified bronchus or lung (4) Hyponatremia Current Visit: No Status: Chronic Assessment and plan: Chronic hyponatremia, Na back down to 126 this morning from 129 yesterday. Possibly related to small cell carcinoma of the lung -IV fluids discontinued. -Conitnue monitoring labs. (5) Protein-calorie malnutrition, severe Current Visit: Yes Status: Chronic Assessment and plan: Nutrition consult placed. (6) HTN (hypertension) Current Visit: No Status: Chronic Assessment and plan: Bp controlled. Continue home med for chronic disease management. Qualifiers: Hypertension type: essential hypertension Qualified Code(s): I10 - Essential (primary) hypertension (7) Compression fracture of body of thoracic vertebra Current Visit: No Status: Chronic (8) Pneumonia Current Visit: Yes Status: Acute Assessment and plan: per plan in assessment above. CXR with COPD findings and new lef basilar airspace disease concerning for pnuemonia. CTA revealed COPD with pleural-based lesion in upper left lobe adjacent to rib sclerosis which is worrisome for mets. Also bilateral bronchiolitis with bibasilar peribronchial infiltrates. -Continue d4 Levaquin and Cefepime, ad d2 Vancomycin. -Pulmonology consulted. Qualifiers: Pneumonia type: due to other aerobic Gram-negative bacteria Laterality: left Lung location: upper lobe of lung Qualified Code(s): J15.6 - Pneumonia due to other Gram-negative bacteria - Time Spent With Patient Total time spent is greater than 50% in coordination of care (as documented) at patient's floor/unit and/or counseling patient: - Subjective Interval history: Ms. Keenan is feeling slightly worse than yesterday regarding her breathing. Her pain is controlled. Has shortness of breath and cough and visibly appears to be in mild respiratory distress on 3L nasal cannula satting well. Denies fevers, chills, nausea, vomiting, abdominal pain, changes in bowels or bladder, weakness, or loss of sensation. - Constitutional Vitals: Temp Pulse Resp BP Pulse Ox 97.8 F 95 18 134/92 100 07/20/17 06:53 07/20/17 06:53 07/20/17 06:53 07/20/17 06:53 07/20/17 06:53 General appearance: Present: A&O X 3, underweight (Cachectic), answers questions appropriately Exam: mild distress, uncomfortable appearing - Head Head exam: Present: atraumatic, normal inspection, normocephalic - Eye Eye exam: Present: EOMI, normal appearance - ENT ENT exam: Present: mucous membranes moist, normal exam - Neck Neck exam general surgery: Present: full ROM, normal inspection, supple, trachea midline. Absent: lymphadenopathy - Respiratory Respiratory exam: Present: rhonchi, wheezes (significant expiratory wheezing and rhonchi, no rales.), tachypnea. Absent: rales - Cardiovascular Cardiovascular exam: Present: +S1, +S2, tachycardia - GI/Abdominal GI/Abdominal exam: Present: normal bowel sounds, soft. Absent: distended, tenderness - Extremities Exam Extremities exam: Present: warm, radial pulses palpable and symmetrical. Absent : pedal edema - Skin Skin exam: Present: dry, intact, normal color, warm Internal Medicine: Result - Labs CBC & Chem 7: 07/17/17 15:03 07/20/17 03:40 Labs: BMP 07/20/17 03:40 Sodium 126 L Potassium 3.9 Chloride 88 L Carbon Dioxide 32 H BUN 8 Creatinine 0.36 L Glucose 122 H Calcium 9.0 - ABG Interpretation ABG results: ABG ABG pH 7.44 pH Units (7.32-7.45) 07/19/17 19:37 ABG pCO2 44 mmHg (35-45) 07/19/17 19:37 ABG pO2 68 mmHg (85-104) L 07/19/17 19:37 ABG O2 Saturation 94 % (95-98) L 07/19/17 19:37 PT/INR, D-dimer PT 11.6 Seconds (9.4-12.1) 07/17/17 15:03 - Impressions Impressions Chest X-Ray 07/19/17 19:34 IMPRESSION: COPD with mild multifocal segmental atelectasis versus pneumonia. D/ / Prabhjot Abel MD / Prabhjot Abel MD Interpreting Provider: Prabhjot Abel MD Consult Discharge Plan - Plan Referrals: Ron Ward MD [Primary Care Provider] - <Juliano Pepe A - Last Filed: 07/20/17 18:47> Date of Encounter: 07/20/17 - Assessment and plan (1) Acute and chronic respiratory failure ([id number]) Current Visit: No Status: Acute Qualifiers: Respiratory failure complication: hypoxia Qualified Code(s): J96.21 - Acute and chronic respiratory failure with hypoxia (2) Hyponatremia Current Visit: No Status: Chronic (3) Small cell 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 Current Visit: No Status: Chronic (4) Compression fracture of body of thoracic vertebra Current Visit: No Status: Chronic (5) Acute exacerbation of chronic obstructive airways disease Current Visit: Yes Status: Acute (6) Protein-calorie malnutrition, severe Current Visit: Yes Status: Chronic (7) HTN (hypertension) Current Visit: No Status: Chronic Qualifiers: Hypertension type: essential hypertension Qualified Code(s): I10 - Essential (primary) hypertension (8) Metastatic lung cancer (metastasis from lung to other site) Current Visit: No Status: Chronic Qualifiers: Laterality: unspecified laterality Qualified Code(s): C34.90 - Malignant neoplasm of unspecified part of unspecified bronchus or lung (9) Pneumonia Current Visit: Yes Status: Acute Qualifiers: Pneumonia type: due to other aerobic Gram-negative bacteria Laterality: left Lung location: upper lobe of lung Qualified Code(s): J15.6 - Pneumonia due to other Gram-negative bacteria - Time Spent With Patient Total time spent is greater than 50% in coordination of care (as documented) at patient's floor/unit and/or counseling patient: - Constitutional Vitals: Temp Pulse Resp BP Pulse Ox 98.0 F 96 16 169/95 96 07/20/17 15:00 07/20/17 15:00 07/20/17 15:20 07/20/17 15:00 07/20/17 15:20 Internal Medicine: Result - Labs CBC & Chem 7: 07/17/17 15:03 07/20/17 03:40 Labs: BMP 07/20/17 03:40 Sodium 126 L Potassium 3.9 Chloride 88 L Carbon Dioxide 32 H BUN 8 Creatinine 0.36 L Glucose 122 H Calcium 9.0 - ABG Interpretation ABG results: ABG ABG pH 7.44 pH Units (7.32-7.45) 07/19/17 19:37 ABG pCO2 44 mmHg (35-45) 07/19/17 19:37 ABG pO2 68 mmHg (85-104) L 07/19/17 19:37 ABG O2 Saturation 94 % (95-98) L 07/19/17 19:37 PT/INR, D-dimer PT 11.6 Seconds (9.4-12.1) 07/17/17 15:03 - Impressions Impressions Chest X-Ray 07/19/17 19:34 IMPRESSION: COPD with mild multifocal segmental atelectasis versus pneumonia. D/ / Prabhjot Abel MD / Prabhjot Abel MD Interpreting Provider: Prabhjot Abel MD - Attending Attestation I examined this patient and my medical decision-making was reviewed with the Resident Physician on 07/20/17. I agree with the documented findings, disposition and treatment plan as described except to the extent set forth below. Ms Keenan is currently admitted for acute respiratory failure and COPD. She remains moderate to high risk due to potential for worsening clinical status. Ms Keenan has been having increased dyspnea. No fever or chills. She has been using bipap some with improvement. Exam alert Comfortable at this time Mucus membranes dry Heart distant Rhochi throughout I/P 1. Resp failure 2. COPD Further diagnoses and plan as above.
--- NOTE | 2017-07-20 09:24 | Pulmonology Consult Note ---
Date of Encounter: 07/20/17 Time of Encounter: 09:20 Assessment and Plan (1) COPD with exacerbation Current Visit: Yes Status: Acute To continue Bronchodilators and steroids . On discharge Spiriva and Daliresp should be added to the home regimen of symbicort . Patient has very poor prognosis . If she gets better patient might benefit from outpatient pulm rehab if she can do it. Patient imaging showed her malignancy looks stable there is no evidence of new consolidation will descalate the antibiotics soon with the clinical response . bronchiolar infltrates doesnt looks new . (2) Acute and chronic respiratory failure Current Visit: No Status: Chronic Secondary to COPD exacerbation to continue BIPAP 01/23 agree with diuresis . To keep her NPO for now if she is doing better give a BIPAP break if she tolerates with out for an hour we can start with clear liquid diet . Patient is tolerating the BIPAP better . Qualifiers: Respiratory failure complication: hypoxia Qualified Code(s): J96.21 - Acute and chronic respiratory failure with hypoxia History of Present Illness Consult date: 07/20/17 Requesting physician: Juliano Pepe Reason for consult: dyspnea, COPD Chief complaint: Shortness of Breadth History of present illness: 61 year old female with past medical history significant for Severe O2 dependent COPD with emphysema , Small cell lung ca metastatic on immunotherapy had a round of immunotherapy patient had recurrent admissions from past october now coming with increased shortness of breadth , say her cough and sputum production is at baseline , denies any chest pain or tightness , denies any palpitations or pedal edema . Denies any headache , has the back pain which is chronic no other neurological symptoms . Pulmonary was consulted acute worsening of chronic respiratory failure. Past Med Surg Social Fam HX - Past Medical History Medical history: cancer, COPD, hypertension Additional medical history: lung cancer Psychiatric history: anxiety, depression - Past Surgical History Surgical History: hysterectomy - Social History Smoking Status: Former smoker Smokeless Tobacco Status: No Alcohol use: none Drug use: none - Family History Sister Adopted: No Family Member Ethnicity: Non- Living Status: Still Living Hx Family Cardiac Disorders: Yes (HTN) Hx Family Respiratory Disorders: No Hx Family Cancer: Yes (Lymphoma) Hx Family GI Disorders: No Hx Family Endocrine Disorder: No Hx Family Neuromuscular Disorders: No Hx Family Neurologic Disorders: No Hx Family HEENT Disorders: No Hx Family Autoimmune Disorders: No Mother Family Member Ethnicity: Non- Living Status: Hx Family Cardiac Disorders: Yes (hypertension,) Hx Family Respiratory Disorders: Yes (COPD) Hx Family Cancer: No Hx Family GI Disorders: No Hx Family Endocrine Disorder: No Hx Family Neuromuscular Disorders: No Hx Family Neurologic Disorders: Yes (Alzheimers) Hx Family HEENT Disorders: No Father Adopted: No Family Member Ethnicity: Non- Living Status: Hx Family Cardiac Disorders: Yes Hx Family Respiratory Disorders: Yes (mother copd) Hx Family Cancer: No Hx Family GI Disorders: No Hx Family Endocrine Disorder: No Hx Family Neuromuscular Disorders: No Hx Family Neurologic Disorders: No Hx Family HEENT Disorders: No Hx Family Autoimmune Disorders: No Medications and Allergies Trazodone HCl 200 mg PO HS 02/15/16 [History] Albuterol Sulfate [Albuterol Inhaler] 2 puff IH Q6H PRN 10/14/16 [History] Budesonide/Formoterol 160/4.5 [Symbicort 160/4.5] 2 puff IH BIDR 10/14/16 [ History] Oxygen 2 l NS AD 10/14/16 [History] Omeprazole [PriLOSEC] 20 mg PO DAILY@0630 #30 capsule. 06/03/17 [Rx] Albuterol Neb [Proventil Neb] 2.5 mg IH Q2H PRN #120 inhsol 06/08/17 [Rx] Buspirone HCl [Buspar] 15 mg PO BID #60 tablet 06/08/17 [Rx] DULoxetine [Cymbalta] 30 mg PO HS #30 capsule. 06/08/17 [Rx] Metoprolol [Lopressor] 12.5 mg PO BID PRN MDD SEE NOTE 06/13/17 [History] Potassium Chloride [K-Tab ER] 20 meq PO DAILY 06/13/17 [History] Calcium Carbonate [Tums] 1,000 mg PO TID tab.chew 06/16/17 [Rx] Melatonin [Melatin] 3 mg PO HS 06/21/17 [History] Cholecalciferol (D-3) [Vitamin D] 1,000 unit PO DAILY #30 tablet 06/28/17 [Rx] Loratadine [Claritin] 10 mg PO DAILY 7 Days #7 tablet 07/01/17 [Rx] clonazePAM [Klonopin] 0.5 mg PO Q4H PRN 7 Days #28 tablet MDD 6 07/01/17 [Rx] OxyCODONE Immed Rel [Roxicodone 10 MG] 10 mg PO TID PRN 30 Days #90 tab [Rx] Ipratropium/Albuterol Neb [Duoneb] 3 ml IH Q4HR #1 vial.neb 07/15/17 [Rx] Promethazine [Phenergan] 12.5 mg PO Q8HR #24 tablet 07/15/17 [Rx] 3 Allergy/AdvReac Type Severity Reaction Status Date / Time No Known Allergies Allergy Verified 07/05/17 14:30 All Systems: The remainder of the systems were reviewed and are negative Physical Examination Vital Signs: Vital Signs, Last 4 Hours Temp Pulse Resp BP Pulse Ox 07/20/17 09:07 18 100 07/20/17 06:53 97.8 F 95 18 134/92 100 07/20/17 06:45 22 100 Auscultation: bilateral: wheezes (mild scattered wheezes ), other (good air entry) Results - Laboratory Findings CBC and BMP: 07/17/17 15:03 07/20/17 03:40 ABG ABG pH 7.44 pH Units (7.32-7.45) 07/19/17 19:37 ABG pCO2 44 mmHg (35-45) 07/19/17 19:37 ABG pO2 68 mmHg (85-104) L 07/19/17 19:37 ABG O2 Saturation 94 % (95-98) L 07/19/17 19:37 PT/INR, D-dimer PT 11.6 Seconds (9.4-12.1) 07/17/17 15:03 Abnormal lab findings: Abnormal lab results RBC 3.74 M/mcL (3.82-4.97) L 07/17/17 15:03 Hgb 10.8 g/dL (11.5-15.4) L 07/17/17 15:03 Hct 33.0 % (35.3-44.9) L 07/17/17 15:03 Plt Count 472 K/mcL (140-400) H 07/17/17 15:03 MPV 8.9 fL (9.4-12.4) L 07/17/17 15:03 APTT 24.1 Seconds (26.0-36.0) L 07/17/17 15:03 ABG pO2 68 mmHg (85-104) L 07/19/17 19:37 ABG HCO3 30 mEq/L (21-27) H 07/19/17 19:37 ABG Total CO2 31 mEq/L (20-26) H 07/19/17 19:37 ABG O2 Saturation 94 % (95-98) L 07/19/17 19:37 ABG Base Excess 5 mEq/L (-2 to 3) H 07/19/17 19:37 Sodium 126 mEq/L (136-145) L 07/20/17 03:40 Chloride 88 mEq/L (98-107) L 07/20/17 03:40 Carbon Dioxide 32 mEq/L (23-29) H 07/20/17 03:40 Creatinine 0.36 mg/dL (0.60-1.20) L 07/20/17 03:40 Glucose 122 mg/dL (70-105) H 07/20/17 03:40 POC Glucose 206 mg/dL (70-99) H 07/19/17 20:20 Calculated Osmolality 262 (280-300) L 07/20/17 03:40 - Clinical Findings Intake & Output: Intake & Output 07/19/17 07/20/17 07/20/17 23:59 07:59 15:59 Intake Total 250 / 250 0 / 0 50.5 / 50.5 Output Total 1000 / 1000 800 / 800 Balance -750 / -750 -800 / -800 50.5 / 50.5 Weight 49 kg Consult Discharge Plan - Plan Referrals: Ron Ward MD [Primary Care Provider] -
[2017-07-20] MEDS: MetroNIDAZOLE 500 MG/100 ML 500 MG/100 ML BAG IVPB SCH ×2 (13:24→18:00)
[2017-07-20] MEDS: Ondansetron 4 MG/2 ML VIAL IVP PRN (16:17)
[2017-07-20] MEDS: MethylPREDNISolone 40 MG/ML VIAL IVP SCH (18:01)
[2017-07-20] MEDS: Cefepime HCl 2,000 MG in Water for inj. (sterile) 20 ML 20 ML IVP SCH (18:01)
[2017-07-20] MEDS: Melatonin 3 MG TABLET PO SCH (21:00)
[2017-07-20] MEDS: traZODone 50 MG TABLET PO SCH (21:00)
[2017-07-21] MEDS: Ipratropium/Albuterol Neb 3 ML IH SCH ×7 (00:22→23:19)
[2017-07-21] MEDS: Cefepime HCl 2,000 MG in Water for inj. (sterile) 20 ML 20 ML IVP SCH ×2 (06:01→18:24)
[2017-07-21] MEDS: MethylPREDNISolone 40 MG/ML VIAL IVP SCH ×2 (06:01→18:25)
[2017-07-21] MEDS: *HR* Enoxaparin 40 MG/0.4 ML SYRINGE SQ SCH (06:02)
[2017-07-21] MEDS: MetroNIDAZOLE 500 MG/100 ML 500 MG/100 ML BAG IVPB SCH ×3 (07:58→16:29)
[2017-07-21] MEDS: Cholecalciferol (D-3) 1,000 UNIT TABLET PO SCH (07:58)
--- NOTE | 2017-07-21 09:37 | Pulmonology Progress Note ---
Date of Encounter: 07/21/17 Time of Encounter: 09:00 Assessment and Plan (1) COPD with exacerbation Current Visit: Yes Status: Acute To continue bronchodilators and steroids . On discharge she will need exercise oximetry. she will need Daliresp and Spiriva respimat on top of her home bronchodilator regimen. Will sign off call with questions. (2) Acute and chronic respiratory failure Current Visit: No Status: Chronic To continue O2 supplementation to Keep SPO2 around 88%. If respiratory distress comes back put her back on BIPAP 01/23 Qualifiers: Respiratory failure complication: hypoxia Qualified Code(s): J96.21 - Acute and chronic respiratory failure with hypoxia Subjective Principal diagnosis: COPD exacerbation Interval history: Patient is resting comfortably didnt need BIPAP that much , patient says her shortness of breadth is lot better , denies any chest pain or tightness Objective PUL Vital signs: Last Vital Signs Temp 98.3 F 07/21/17 06:55 Pulse 85 07/21/17 06:55 Resp 20 07/21/17 07:36 BP 148/90 07/21/17 06:55 Pulse Ox 96 07/21/17 07:36 Auscultation: bilateral: wheezes Results - Laboratory Findings CBC and BMP: 07/21/17 09:29 07/20/17 03:40 ABG ABG pH 7.44 pH Units (7.32-7.45) 07/19/17 19:37 ABG pCO2 44 mmHg (35-45) 07/19/17 19:37 ABG pO2 68 mmHg (85-104) L 07/19/17 19:37 ABG O2 Saturation 94 % (95-98) L 07/19/17 19:37 PT/INR, D-dimer PT 11.6 Seconds (9.4-12.1) 07/17/17 15:03 Abnormal lab findings: Abnormal lab results RBC 3.74 M/mcL (3.82-4.97) L 07/17/17 15:03 Hgb 10.8 g/dL (11.5-15.4) L 07/17/17 15:03 Hct 33.0 % (35.3-44.9) L 07/17/17 15:03 Plt Count 472 K/mcL (140-400) H 07/17/17 15:03 MPV 8.9 fL (9.4-12.4) L 07/17/17 15:03 APTT 24.1 Seconds (26.0-36.0) L 07/17/17 15:03 ABG pO2 68 mmHg (85-104) L 07/19/17 19:37 ABG HCO3 30 mEq/L (21-27) H 07/19/17 19:37 ABG Total CO2 31 mEq/L (20-26) H 07/19/17 19:37 ABG O2 Saturation 94 % (95-98) L 07/19/17 19:37 ABG Base Excess 5 mEq/L (-2 to 3) H 07/19/17 19:37 Sodium 126 mEq/L (136-145) L 07/20/17 03:40 Chloride 88 mEq/L (98-107) L 07/20/17 03:40 Carbon Dioxide 32 mEq/L (23-29) H 07/20/17 03:40 Creatinine 0.36 mg/dL (0.60-1.20) L 07/20/17 03:40 Glucose 122 mg/dL (70-105) H 07/20/17 03:40 POC Glucose 206 mg/dL (70-99) H 07/19/17 20:20 Calculated Osmolality 262 (280-300) L 07/20/17 03:40 - Clinical Findings Intake & Output: Intake & Output 07/20/17 07/21/17 07/21/17 23:59 07:59 15:59 Intake Total 340 / 340 100 / 100 Output Total 950 / 950 550 / 550 Balance -610 / -610 -450 / -450 Weight 49 kg Consult Discharge Plan - Plan Referrals: Ron Ward MD [Primary Care Provider] -
[2017-07-21 09:59] LABS: Basophils % 0.2 %; Hematocrit 33.1 % (35.3-44.9); Immature Granulocytes % 0.9 % (0-4); Lymphocytes # 0.7 K/mcL (0.6-4.6); Lymphocytes % 4.4 %; Mean Corpuscular HGB Conc 33.2 g/dL (31.6-35.5); Mean Corpuscular Hemoglobin 28.6 pg (28.0-33.3); Mean Platelet Volume 9.5 fL (9.4-12.4); Monocytes # 0.6 K/mcL (0.0-1.3); Monocytes % 3.8 %; Neutrophils # 13.6 K/mcL (1.6-8.9); Platelet Count 487 K/mcL (140-400); Red Blood Count 3.85 M/mcL (3.82-4.97); Red Cell Distribution Width 14.2 % (11.5-14.5); Segmented Neutrophils % 90.7 %
[2017-07-21 10:39] LABS: BUN/Creatinine Ratio 22 (6-26); Blood Urea Nitrogen 11 mg/dL (8-23); Calcium 9.5 mg/dL (8.6-10.3); Carbon Dioxide 27 mEq/L (23-29); Chloride 87 mEq/L (98-107); Glucose 100 mg/dL (70-105); Osmolality,Calculated 253 (280-300); Potassium 4.9 mEq/L (3.5-5.1); Sodium 122 mEq/L (136-145); eGFR For African Americans > 60 (> 60); eGFR For Non-African Americans > 60 (> 60)
--- NOTE | 2017-07-21 10:42 | Internal Med Progress Note ---
<Scott Alonzo - Last Filed: 07/21/17 15:02> Date of Encounter: 07/21/17 Time of Encounter: 10:40 - Assessment and plan (1) Acute exacerbation of chronic obstructive airways disease Current Visit: Yes Status: Acute Assessment and plan: Acute on chronic hypoxic respiratory failure secondary to acute COPD exacerbation likely due to pneumonia present upon admission in the setting of metastatic lung cancer with lymphangitic carcinomatosis Blood culture prelim no growth -Continue with Cefepime d5 and Flagyl d2. Discontinued Levaquin d4 and Vancomycin d1. -transition to oral steroids tomorrow -duonebs q4h scheduled and q2h prn. -Bipap as needed, supplemental oxygen as needed -blood cultures and sputum cultures pending -Pulmonology on board (On disharge send with spiriva respimat and daliresp, continue symbicort, albuterol nebulizer treatments, and oral steroids x 12 days.)-scripts printed. (2) Acute and chronic respiratory failure ([id number]) Current Visit: Yes Status: Acute Assessment and plan: Resolved Qualifiers: Respiratory failure complication: hypoxia Qualified Code(s): J96.21 - Acute and chronic respiratory failure with hypoxia (3) Small cell 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 Current Visit: No Status: Chronic Assessment and plan: History of small cell lung cancer completed chemoradiation and currently on immunotherapy. (4) Metastatic lung cancer (metastasis from lung to other site) Current Visit: No Status: Chronic Assessment and plan: per plan in assessment above. Qualifiers: Laterality: unspecified laterality Qualified Code(s): C34.90 - Malignant neoplasm of unspecified part of unspecified bronchus or lung (5) Hyponatremia Current Visit: Yes Status: Chronic Assessment and plan: Chronic hyponatremia, Na back down to 122 from 126 yesterday. Possibly related to small cell carcinoma of the lung, SIADH Consider salt tablets if continues despite fluid restrict and IV fluid. May consider consulting Nephro if no improvement. Fluid restriction 1.5L -IV fluids normal saline 500mL. -Continue monitoring labs. (6) Protein-calorie malnutrition, severe Current Visit: Yes Status: Chronic Assessment and plan: Nutrition following. (7) HTN (hypertension) Current Visit: No Status: Chronic Assessment and plan: Bp controlled. Continue home med for chronic disease management. Qualifiers: Hypertension type: essential hypertension Qualified Code(s): I10 - Essential (primary) hypertension (8) Compression fracture of body of thoracic vertebra Current Visit: No Status: Chronic (9) Pneumonia Current Visit: Yes Status: Acute Assessment and plan: per plan in assessment above. CXR with COPD findings and new lef basilar airspace disease concerning for pnuemonia. CTA revealed COPD with pleural-based lesion in upper left lobe adjacent to rib sclerosis which is worrisome for mets. Also bilateral bronchiolitis with bibasilar peribronchial infiltrates. -Continue with Cefepime d5 and Flagyl d2. Discontinued Levaquin d4 and Vancomycin d1. -Pulmonology on board. Qualifiers: Pneumonia type: due to other aerobic Gram-negative bacteria Laterality: left Lung location: upper lobe of lung Qualified Code(s): J15.6 - Pneumonia due to other Gram-negative bacteria - Time Spent With Patient Total time spent is greater than 50% in coordination of care (as documented) at patient's floor/unit and/or counseling patient: - Subjective Interval history: Ms. Keenan is feeling much better today, she also appears to have more energy and life in her eyes. Pain is also controlled. Patient and family member report she was only on Bipap for about 1-2 hours yesterday. Still has some mild shortness of breath. Denies fevers, chills, nausea, vomiting, abdominal pain, changes in bowels or bladder, weakness, or loss of sensation. - Constitutional Vitals: Temp Pulse Resp BP Pulse Ox 98.3 F 85 20 148/90 96 07/21/17 06:55 07/21/17 06:55 07/21/17 07:36 07/21/17 06:55 07/21/17 07:36 General appearance: Present: A&O X 3, pleasant, no acute distress, underweight ( Cachectic), answers questions appropriately - Head Head exam: Present: atraumatic, normal inspection, normocephalic - Eye Eye exam: Present: EOMI, normal appearance - ENT ENT exam: Present: mucous membranes moist, normal exam - Neck Neck exam general surgery: Present: full ROM - Respiratory Respiratory exam: Present: prolonged expiratory phase, wheezes (expiratory throughout). Absent: rales, respiratory distress, rhonchi, tachypnea - Cardiovascular Cardiovascular exam: Present: RRR, +S1, +S2 - GI/Abdominal GI/Abdominal exam: Present: normal bowel sounds, soft. Absent: diminished bowel sounds, tenderness - Extremities Exam Extremities exam: Present: full ROM, normal inspection, warm, radial pulses palpable and symmetrical. Absent: pedal edema - Neurological Exam Neurological exam: Present: no focal deficits, strengths equal and symetr throughout - Skin Skin exam: Present: dry, intact, normal color, warm. Absent: rash Internal Medicine: Result - Labs CBC & Chem 7: 07/21/17 09:29 07/21/17 09:29 Labs: Short CBC 07/21/17 Range/Units 09:29 WBC 15.0 H D (4.3-11.1) K/mcL Hgb 11.0 L (11.5-15.4) g/dL Hct 33.1 L (35.3-44.9) % Plt Count 487 H (140-400) K/mcL Neutrophils # 13.6 H (1.6-8.9) K/mcL BMP 07/21/17 09:29 Sodium 122 L Potassium 4.9 Chloride 87 L Carbon Dioxide 27 BUN 11 Creatinine 0.50 L Glucose 100 Calcium 9.5 - ABG Interpretation ABG results: ABG ABG pH 7.44 pH Units (7.32-7.45) 07/19/17 19:37 ABG pCO2 44 mmHg (35-45) 07/19/17 19:37 ABG pO2 68 mmHg (85-104) L 07/19/17 19:37 ABG O2 Saturation 94 % (95-98) L 07/19/17 19:37 PT/INR, D-dimer PT 11.6 Seconds (9.4-12.1) 07/17/17 15:03 Consult Discharge Plan - Plan Referrals: Ron Ward MD [Primary Care Provider] - Prescriptions: Albuterol Neb [AccuNeb] 1.25 mg IH Q6H #120 inhsol PredniSONE [Deltasone] 40 mg PO DAILY 12 Days #12 tablet Roflumilast [Daliresp] 250 mcg PO DAILY #30 tablet Tiotropium [place] [Spiriva Respimat] 4 gm IH DAILY 30 Days #120 mist.inhal <Juliano Pepe - Last Filed: 07/21/17 17:51> Date of Encounter: 07/21/17 - Assessment and plan (1) Hyponatremia Current Visit: Yes Status: Chronic (2) Acute and chronic respiratory failure ([id number]) Current Visit: Yes Status: Acute Qualifiers: Respiratory failure complication: hypoxia Qualified Code(s): J96.21 - Acute and chronic respiratory failure with hypoxia (3) Small cell 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 Current Visit: No Status: Chronic (4) Compression fracture of body of thoracic vertebra Current Visit: No Status: Chronic (5) Acute exacerbation of chronic obstructive airways disease Current Visit: Yes Status: Acute (6) Protein-calorie malnutrition, severe Current Visit: Yes Status: Chronic (7) HTN (hypertension) Current Visit: No Status: Chronic Qualifiers: Hypertension type: essential hypertension Qualified Code(s): I10 - Essential (primary) hypertension (8) Metastatic lung cancer (metastasis from lung to other site) Current Visit: No Status: Chronic Qualifiers: Laterality: unspecified laterality Qualified Code(s): C34.90 - Malignant neoplasm of unspecified part of unspecified bronchus or lung (9) Pneumonia Current Visit: Yes Status: Acute Qualifiers: Pneumonia type: due to other aerobic Gram-negative bacteria Laterality: left Lung location: upper lobe of lung Qualified Code(s): J15.6 - Pneumonia due to other Gram-negative bacteria - Time Spent With Patient Total time spent is greater than 50% in coordination of care (as documented) at patient's floor/unit and/or counseling patient: - Constitutional Vitals: Temp Pulse Resp BP Pulse Ox 97.7 F 92 24 149/94 96 07/21/17 15:25 07/21/17 15:25 07/21/17 15:34 07/21/17 15:25 07/21/17 15:34 Internal Medicine: Result - Labs CBC & Chem 7: 07/21/17 09:29 07/21/17 09:29 Labs: Short CBC 07/21/17 Range/Units 09:29 WBC 15.0 H D (4.3-11.1) K/mcL Hgb 11.0 L (11.5-15.4) g/dL Hct 33.1 L (35.3-44.9) % Plt Count 487 H (140-400) K/mcL Neutrophils # 13.6 H (1.6-8.9) K/mcL BMP 07/21/17 09:29 Sodium 122 L Potassium 4.9 Chloride 87 L Carbon Dioxide 27 BUN 11 Creatinine 0.50 L Glucose 100 Calcium 9.5 - ABG Interpretation ABG results: ABG ABG pH 7.44 pH Units (7.32-7.45) 07/19/17 19:37 ABG pCO2 44 mmHg (35-45) 07/19/17 19:37 ABG pO2 68 mmHg (85-104) L 07/19/17 19:37 ABG O2 Saturation 94 % (95-98) L 07/19/17 19:37 PT/INR, D-dimer PT 11.6 Seconds (9.4-12.1) 07/17/17 15:03 - Attending Attestation I examined this patient and my medical decision-making was reviewed with the Resident Physician on 07/21/17. I agree with the documented findings, disposition and treatment plan as described except to the extent set forth below. Ms Keenan is currently hospitalized for acute exac COPD. She remains moderate to high risk at this time. Ms Keenan is breathing better today but seems a little more confused. No fever or chills. Some cough. No GI issues. Exam Alert Comfortable now Mucus membranes dry Heart distant Wheeze and rhonchi heard Abd soft I/P 1. Resp failure 2. COPD 3. Hyponatremia Further diagnoses and plan as above.
[2017-07-21] MEDS ORDERED: 0.9 % Sodium Chloride 1,000 ML IVC SCH (11:00)
[2017-07-21] MEDS ORDERED: 0.9 % Sodium Chloride 500 ML IVC SCH (15:45)
[2017-07-21] MEDS: Ondansetron 4 MG/2 ML VIAL IVP PRN (16:29)
[2017-07-21] MEDS: Ipratropium/Albuterol Neb 3 ML IH PRN (21:37)
[2017-07-21] MEDS: traZODone 50 MG TABLET PO SCH (21:47)
[2017-07-21] MEDS: *HR* OxyCODONE Immed Rel 5 MG TABLET PO PRN (21:47)
[2017-07-21] MEDS: clonazePAM 0.5 MG TABLET PO PRN (21:48)
[2017-07-21] MEDS: Melatonin 3 MG TABLET PO SCH (21:48)
[2017-07-22] MEDS: MetroNIDAZOLE 500 MG/100 ML 500 MG/100 ML BAG IVPB SCH ×2 (00:25→08:11)
[2017-07-22] MEDS: Ipratropium/Albuterol Neb 3 ML IH SCH ×6 (03:37→23:25)
[2017-07-22 05:11] LABS: Basophils % 0.1 %; Hematocrit 28.4 % (35.3-44.9); Hemoglobin 9.7 g/dL (11.5-15.4); Immature Granulocytes % 0.9 % (0-4); Lymphocytes # 1.1 K/mcL (0.6-4.6); Lymphocytes % 11.4 %; Mean Corpuscular HGB Conc 34.2 g/dL (31.6-35.5); Mean Corpuscular Hemoglobin 28.4 pg (28.0-33.3); Mean Corpuscular Volume 83.3 fL (83.0-100.0); Mean Platelet Volume 9.4 fL (9.4-12.4); Monocytes # 0.9 K/mcL (0.0-1.3); Monocytes % 9.4 %; Neutrophils # 7.8 K/mcL (1.6-8.9); Platelet Count 427 K/mcL (140-400); Red Blood Count 3.41 M/mcL (3.82-4.97); Red Cell Distribution Width 14.1 % (11.5-14.5); Segmented Neutrophils % 78.2 %
[2017-07-22] MEDS: *HR* Enoxaparin 40 MG/0.4 ML SYRINGE SQ SCH (05:39)
[2017-07-22] MEDS: Cefepime HCl 2,000 MG in Water for inj. (sterile) 20 ML 20 ML IVP SCH ×2 (05:39→17:02)
[2017-07-22] MEDS: MethylPREDNISolone 40 MG/ML VIAL IVP SCH ×2 (05:39→17:03)
[2017-07-22 05:47] LABS: BUN/Creatinine Ratio 32 (6-26); Blood Urea Nitrogen 10 mg/dL (8-23); Calcium 8.5 mg/dL (8.6-10.3); Carbon Dioxide 28 mEq/L (23-29); Chloride 84 mEq/L (98-107); Glucose 93 mg/dL (70-105); Osmolality,Calculated 247 (280-300); Potassium 4.3 mEq/L (3.5-5.1); Sodium 119 mEq/L (136-145); eGFR For African Americans > 60 (> 60); eGFR For Non-African Americans > 60 (> 60)
[2017-07-22] MEDS: *HR* OxyCODONE Immed Rel 5 MG TABLET PO PRN ×2 (08:13→17:02)
[2017-07-22] MEDS: Cholecalciferol (D-3) 1,000 UNIT TABLET PO SCH (08:14)
--- NOTE | 2017-07-22 09:46 | Internal Med Progress Note ---
Addendum entered and electronically signed by Sergey Zhou DO 14:12: Discussed with nephrology. Additional labs ordered for workup of hyponatremia. Starting 1gm salt tablets BID and one time dose of tolvaptan (15mg) per nephrology's recommendation. Original Note: <Sergey Zhou - Last Filed: 07/22/17 14:10> Date of Encounter: 07/22/17 Time of Encounter: 08:40 - Assessment and plan (1) Hyponatremia Current Visit: Yes Status: Chronic Assessment and plan: Worsening hyponatremia, newly altered today----Nephrology consulted today. Na 131 on 07/15/17 > 129 on 07/19/17>122 on 07/21/17, and 119 today (07/22/17) Possibly related to small cell carcinoma of the lung, SIADH. Fluid restriction of 1.5L daily. Nephrology consulted, spoke to Dr. Boothe. Consider salt tablets. Consider Sodium checks Q4. Pending stat serum sodium, urine sodium and urine Cr. (2) Acute exacerbation of chronic obstructive airways disease Current Visit: Yes Status: Acute Assessment and plan: Acute on chronic hypoxic respiratory failure secondary to acute COPD exacerbation likely due to pneumonia present upon admission in the setting of metastatic lung cancer with lymphangitic carcinomatosis Blood culture prelim- no growth -Continue with Cefepime d6 and Flagyl d3. Discontinued Levaquin d4 and Vancomycin d1. -consider transition to oral steroids -duonebs q4h scheduled and q2h prn. -Bipap as needed, supplemental oxygen as needed -blood cultures and sputum cultures pending -Pulmonology on board (On discharge send with spiriva respimat and daliresp, continue symbicort, albuterol nebulizer treatments, and oral steroids x 12 days.)-scripts printed. (3) Acute and chronic respiratory failure ([id number]) Current Visit: Yes Status: Acute Assessment and plan: Resolved Qualifiers: Respiratory failure complication: hypoxia Qualified Code(s): J96.21 - Acute and chronic respiratory failure with hypoxia (4) Small cell 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 Current Visit: No Status: Chronic Assessment and plan: History of small cell lung cancer completed chemoradiation and currently on immunotherapy. (5) Compression fracture of body of thoracic vertebra Current Visit: No Status: Chronic (6) Protein-calorie malnutrition, severe Current Visit: Yes Status: Chronic Assessment and plan: Nutrition following. (7) HTN (hypertension) Current Visit: No Status: Chronic Assessment and plan: Bp controlled. Continue home med for chronic disease management. Qualifiers: Hypertension type: essential hypertension Qualified Code(s): I10 - Essential (primary) hypertension (8) Metastatic lung cancer (metastasis from lung to other site) Current Visit: No Status: Chronic Assessment and plan: per plan in assessment above. Qualifiers: Laterality: unspecified laterality Qualified Code(s): C34.90 - Malignant neoplasm of unspecified part of unspecified bronchus or lung (9) Pneumonia Current Visit: Yes Status: Acute Assessment and plan: per plan in assessment above. CXR with COPD findings and new left basilar airspace disease concerning for pneumonia. CTA revealed COPD with pleural-based lesion in upper left lobe adjacent to rib sclerosis which is worrisome for mets. Also bilateral bronchiolitis with bibasilar peribronchial infiltrates. -Continue with Cefepime d6 and Flagyl d3. Discontinued Levaquin d4 and Vancomycin d1. -Pulmonology on board. Qualifiers: Pneumonia type: due to other aerobic Gram-negative bacteria Laterality: left Lung location: upper lobe of lung Qualified Code(s): J15.6 - Pneumonia due to other Gram-negative bacteria (10) Confusion Current Visit: Yes Status: Acute Assessment and plan: Possibly secondary to hyponatremia- see assessment and plan above. Ddx includes CVA/TIA- denies history of CVA/TIA, no facial asymmetry, speech deficiency, pronator drift. Strength symmetric and normal ROM of extremities. - Time Spent With Patient Total time spent is greater than 50% in coordination of care (as documented) at patient's floor/unit and/or counseling patient: - Subjective Interval history: Patient awake, alert, and interactive; sitting in bed during examination. Oriented to person(name) and place([facility]), but not to , year, month. Patient states she feels confused this morning, noting that the confusion started yesterday. Denies history of CVA/TIA. She states she has had problems with word searching in the past. Overall she denies any other acute complaints, notes breathing at baseline, no chest pain, dizziness, nausea, vomiting, abdominal pain, changes in bowels or bladder, weakness. - Constitutional Vitals: Temp Pulse Resp BP Pulse Ox 97.4 F L 89 18 140/76 95 07/22/17 07:40 07/22/17 07:40 07/22/17 07:42 07/22/17 07:40 07/22/17 08:22 General appearance: Present: A&O X 2, pleasant, no acute distress, underweight ( Cachectic), answers questions appropriately Exam: name and place - Head Head exam: Present: atraumatic, normocephalic - Eye Eye exam: Present: normal appearance, conjuntiva pink, sclera anicteric - ENT ENT exam: Present: mucous membranes moist - Neck Neck exam general surgery: Present: full ROM, supple - Respiratory Respiratory exam: Present: prolonged expiratory phase. Absent: accessory muscle use, rhonchi, stridor - Cardiovascular Cardiovascular exam: Present: RRR, +S1, +S2 - GI/Abdominal GI/Abdominal exam: Present: normal bowel sounds. Absent: firm, guarding, tenderness - Extremities Exam Extremities exam: Present: full ROM, normal inspection. Absent: pedal edema - Neurological Exam Neurological exam: Present: alert, altered (word searching (socks), not oriented to , date (month or year).), no focal deficits, strengths equal and symetr throughout. Absent: pronater drift, facial droop, speech deficit - Psychiatric Psychiatric exam: Present: normal affect, normal mood - Skin Skin exam: Present: dry, normal color, warm. Absent: rash Internal Medicine: Result - Labs CBC & Chem 7: 07/22/17 04:17 07/22/17 09:44 Labs: Short CBC 07/21/17 07/22/17 Range/Units 09:29 04:17 WBC 15.0 H D 9.9 (4.3-11.1) K/mcL Hgb 11.0 L 9.7 L (11.5-15.4) g/dL Hct 33.1 L 28.4 L (35.3-44.9) % Plt Count 487 H 427 H (140-400) K/mcL Neutrophils # 13.6 H 7.8 (1.6-8.9) K/mcL BMP 07/21/17 07/22/17 09:29 04:17 Sodium 122 L 119 L* Potassium 4.9 4.3 Chloride 87 L 84 L Carbon Dioxide 27 28 BUN 11 10 Creatinine 0.50 L 0.31 L Glucose 100 93 Calcium 9.5 8.5 L - ABG Interpretation ABG results: ABG ABG pH 7.44 pH Units (7.32-7.45) 07/19/17 19:37 ABG pCO2 44 mmHg (35-45) 07/19/17 19:37 ABG pO2 68 mmHg (85-104) L 07/19/17 19:37 ABG O2 Saturation 94 % (95-98) L 07/19/17 19:37 PT/INR, D-dimer PT 11.6 Seconds (9.4-12.1) 07/17/17 15:03 Consult Discharge Plan - Plan Referrals: Ron Ward MD [Primary Care Provider] - Prescriptions: Albuterol Neb [AccuNeb] 1.25 mg IH Q6H #120 inhsol PredniSONE [Deltasone] 40 mg PO DAILY 12 Days #12 tablet Roflumilast [Daliresp] 250 mcg PO DAILY #30 tablet Tiotropium [place] [Spiriva Respimat] 4 gm IH DAILY 30 Days #120 mist.inhal <Juliano Pepe - Last Filed: 07/22/17 18:45> Date of Encounter: 07/22/17 - Assessment and plan (1) Acute metabolic encephalopathy Current Visit: Yes Status: Acute (2) SIADH (syndrome of inappropriate ADH production) Current Visit: Yes Status: Chronic (3) Hyponatremia Current Visit: Yes Status: Chronic (4) Acute and chronic respiratory failure ([id number]) Current Visit: Yes Status: Acute Qualifiers: Respiratory failure complication: hypoxia Qualified Code(s): J96.21 - Acute and chronic respiratory failure with hypoxia (5) Small cell 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 Current Visit: No Status: Chronic (6) Compression fracture of body of thoracic vertebra Current Visit: No Status: Chronic (7) Acute exacerbation of chronic obstructive airways disease Current Visit: Yes Status: Acute (8) Protein-calorie malnutrition, severe Current Visit: Yes Status: Chronic (9) HTN (hypertension) Current Visit: No Status: Chronic Qualifiers: Hypertension type: essential hypertension Qualified Code(s): I10 - Essential (primary) hypertension (10) Metastatic lung cancer (metastasis from lung to other site) Current Visit: No Status: Chronic Qualifiers: Laterality: unspecified laterality Qualified Code(s): C34.90 - Malignant neoplasm of unspecified part of unspecified bronchus or lung (11) Pneumonia Current Visit: Yes Status: Acute Qualifiers: Pneumonia type: due to other aerobic Gram-negative bacteria Laterality: left Lung location: upper lobe of lung Qualified Code(s): J15.6 - Pneumonia due to other Gram-negative bacteria (12) Confusion Current Visit: Yes Status: Acute - Time Spent With Patient Total time spent is greater than 50% in coordination of care (as documented) at patient's floor/unit and/or counseling patient: - Constitutional Vitals: Temp Pulse Resp BP Pulse Ox 98.2 F 93 16 150/94 97 07/22/17 15:58 07/22/17 15:58 07/22/17 15:58 07/22/17 15:58 07/22/17 15:58 Internal Medicine: Result - Labs CBC & Chem 7: 07/22/17 04:17 07/22/17 15:01 Labs: Short CBC 07/22/17 Range/Units 04:17 WBC 9.9 (4.3-11.1) K/mcL Hgb 9.7 L (11.5-15.4) g/dL Hct 28.4 L (35.3-44.9) % Plt Count 427 H (140-400) K/mcL Neutrophils # 7.8 (1.6-8.9) K/mcL BMP 07/22/17 07/22/17 07/22/17 04:17 09:44 15:01 Sodium 119 L* 118 L* 118 L* Potassium 4.3 5.0 Chloride 84 L 84 L Carbon Dioxide 28 27 BUN 10 11 Creatinine 0.31 L 0.41 L Glucose 93 116 H Calcium 8.5 L 9.0 - ABG Interpretation ABG results: ABG ABG pH 7.44 pH Units (7.32-7.45) 07/19/17 19:37 ABG pCO2 44 mmHg (35-45) 07/19/17 19:37 ABG pO2 68 mmHg (85-104) L 07/19/17 19:37 ABG O2 Saturation 94 % (95-98) L 07/19/17 19:37 PT/INR, D-dimer PT 11.6 Seconds (9.4-12.1) 07/17/17 15:03 - Attending Attestation I examined this patient and my medical decision-making was reviewed with the Resident Physician on 07/22/17. I agree with the documented findings, disposition and treatment plan as described except to the extent set forth below. Ms Keenan is currently hospitalized for acute exac COPD and pna. She has become more confused. She remains moderate to high risk. Ms Keenan is resting comfortably. She is more confused today. Her sodium is lower. No fever or chills. Breathing overall better. Exam alert Comfortable Mucus membranes dry Heart distant Some rhonchi noted I/P 1. Encephalopathy 2. Hyponatremia Further diagnoses and plan as above.
[2017-07-22 11:29] LABS: Sodium, Urine 126.3 mEq/L
[2017-07-22] MEDS ORDERED: Tolvaptan 15 MG TABLET PO ONE (12:26)
[2017-07-22] MEDS: traMADol 50 MG TABLET PO PRN (13:29)
--- NOTE | 2017-07-22 14:47 | Nephrology Consult Note ---
<Niru Lock - Last Filed: 07/22/17 14:56> Date of Encounter: 07/22/17 Time of Encounter: 14:45 Assessment and Plan (1) Hyponatremia Status: Chronic Sodium Chloride tabs and Tolvaptan ordered. Recheck BMP now. 1.5 Liter restriction. Uric acid ordered. (2) History of lung cancer Status: Acute Per primary team. (3) Acute exacerbation of chronic obstructive airways disease Status: Acute Per primary team. History of Present Illness - Reason for Consult Consult date: 07/22/17 hyponatremia - Chief Complaint dyspnea - History of Present Illness Ms. Keenan is a 61 year old female that was sent over from [facility] for dyspena and shortness of breath. 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 Did have a recent admission in June of this year for the same symptoms. To her knowledge she has never seen a sex worker or escort. Not sure of family history of kidney problems. Denies fever, chills, nausea, vomiting or diarrhea. Is very fatigued and short of breath. Initial Sodium this stay was 128 is now 118. Given the PMH of lung cancer with current chemo and radiation, this is likely SIADH. Sodium Chloride tablets and Tolvaptan have already be given. BMP ordered for 1500 today. Will be careful not to replace more than 6-8 Meq's in the first 24 hours. The goal will be a NA of 125 tomorrow. Will montior for signs and symptoms of hyponatremia, at this time she denies any. Past Med Surg Social Fam HX - Past Medical History Medical history: cancer, COPD, hypertension Additional medical history: lung cancer Psychiatric history: anxiety, depression - Past Surgical History Surgical History: hysterectomy - Social History Smoking Status: Former smoker Smokeless Tobacco Status: No Alcohol use: none Drug use: none - Family History Sister Adopted: No Family Member Ethnicity: Non- Living Status: Still Living Hx Family Cardiac Disorders: Yes (HTN) Hx Family Respiratory Disorders: No Hx Family Cancer: Yes (Lymphoma) Hx Family GI Disorders: No Hx Family Endocrine Disorder: No Hx Family Neuromuscular Disorders: No Hx Family Neurologic Disorders: No Hx Family HEENT Disorders: No Hx Family Autoimmune Disorders: No Mother Family Member Ethnicity: Non- Living Status: Hx Family Cardiac Disorders: Yes (hypertension,) Hx Family Respiratory Disorders: Yes (COPD) Hx Family Cancer: No Hx Family GI Disorders: No Hx Family Endocrine Disorder: No Hx Family Neuromuscular Disorders: No Hx Family Neurologic Disorders: Yes (Alzheimers) Hx Family HEENT Disorders: No Father Adopted: No Family Member Ethnicity: Non- Living Status: Hx Family Cardiac Disorders: Yes Hx Family Respiratory Disorders: Yes (mother copd) Hx Family Cancer: No Hx Family GI Disorders: No Hx Family Endocrine Disorder: No Hx Family Neuromuscular Disorders: No Hx Family Neurologic Disorders: No Hx Family HEENT Disorders: No Hx Family Autoimmune Disorders: No Medications and Allergies Trazodone HCl 200 mg PO HS 02/15/16 [History] Albuterol Sulfate [Albuterol Inhaler] 2 puff IH Q6H PRN 10/14/16 [History] Budesonide/Formoterol 160/4.5 [Symbicort 160/4.5] 2 puff IH BIDR 10/14/16 [ History] Oxygen 2 l NS AD 10/14/16 [History] Omeprazole [PriLOSEC] 20 mg PO DAILY@0630 #30 capsule. 06/03/17 [Rx] Albuterol Neb [Proventil Neb] 2.5 mg IH Q2H PRN #120 inhsol 06/08/17 [Rx] Buspirone HCl [Buspar] 15 mg PO BID #60 tablet 06/08/17 [Rx] DULoxetine [Cymbalta] 30 mg PO HS #30 capsule. 06/08/17 [Rx] Metoprolol [Lopressor] 12.5 mg PO BID PRN MDD SEE NOTE 06/13/17 [History] Potassium Chloride [K-Tab ER] 20 meq PO DAILY 06/13/17 [History] Calcium Carbonate [Tums] 1,000 mg PO TID tab.chew 06/16/17 [Rx] Melatonin [Melatin] 3 mg PO HS 06/21/17 [History] Cholecalciferol (D-3) [Vitamin D] 1,000 unit PO DAILY #30 tablet 06/28/17 [Rx] Loratadine [Claritin] 10 mg PO DAILY 7 Days #7 tablet 07/01/17 [Rx] clonazePAM [Klonopin] 0.5 mg PO Q4H PRN 7 Days #28 tablet MDD 6 07/01/17 [Rx] OxyCODONE Immed Rel [Roxicodone 10 MG] 10 mg PO TID PRN 30 Days #90 tab [Rx] Ipratropium/Albuterol Neb [Duoneb] 3 ml IH Q4HR #1 vial.neb 07/15/17 [Rx] Promethazine [Phenergan] 12.5 mg PO Q8HR #24 tablet 07/15/17 [Rx] Albuterol Neb [AccuNeb] 1.25 mg IH Q6H #120 inhsol 07/21/17 [Rx] PredniSONE [Deltasone] 40 mg PO DAILY 12 Days #12 tablet 07/21/17 [Rx] Roflumilast [Daliresp] 250 mcg PO DAILY #30 tablet 07/21/17 [Rx] Tiotropium Umpire [Spiriva Respimat] 4 gm IH DAILY 30 Days #120 mist.inhal 05/05 [Rx] GuaiFENesin ER [Mucinex] 600 mg PO BID tbbp.12hr 07/24/17 [Rx] Levofloxacin [Levaquin] 750 mg PO DAILY #3 tablet 07/24/17 [Rx] Polyethylene Glycol 3350 [MiraLAX] 17 gm PO DAILY powd.pack 07/24/17 [Rx] 3 Allergy/AdvReac Type Severity Reaction Status Date / Time No Known Allergies Allergy Verified 07/05/17 14:30 Exam - Vital Signs Vital signs: Initial Vital Signs Temp Pulse Resp BP Pulse Ox 98.0 F 136 36 154/84 80 07/17/17 14:11 07/17/17 14:11 07/17/17 14:11 07/17/17 14:11 07/17/17 14:11 Vital Signs - Last 8 Hours Temp Pulse Resp BP Pulse Ox 07/22/17 11:32 18 97 07/22/17 11:02 98 F 83 16 146/89 97 07/22/17 08:22 95 07/22/17 07:42 18 95 07/22/17 07:40 97.4 F L 89 16 140/76 95 Intake and Output 07/21/17 07/22/17 07/22/17 23:59 07:59 15:59 Intake Total 180 / 180 220 / 220 220 / 220 Output Total 1500 / 1500 800 / 800 1100 / 1100 Balance -1320 / -1320 -580 / -580 -880 / -880 Intake: IV Fluids 120 / 120 100 / 100 100 / 100 Maxipime 2,000 MG In Water for 20 / 20 inj. (sterile) 20 ML @ 300 mls/ hr IVP Q12HR BHUPENDRA Rx#:[id number] Flagyl Premix 500 MG/100 ML 500 100 / 100 100 / 100 100 / 100 mg In 100 ml @ 100 mls/hr IVPB Q8HR BHUPENDRA Rx#:[id number] Oral 60 / 60 120 / 120 120 / 120 Output: Urine 1500 / 1500 800 / 800 1100 / 1100 Other: Meal Breakfast Percent of Meal Consumed 15% # Voids 3 Weight 49 kg Patient Weight 07/22/17 23:59 Weight 49 kg - General Appearance General appearance: chronically ill, fatigue, frail EENT: ATNC, hearing intact, vision intact Respiratory: clear Cardiology: no edema Gastrointestinal: normoactive bowel sounds, no tenderness, no guarding Integumentary: no rash, warm and dry Neurologic: alert and oriented x3 (Alert/oriented to place and location, not date.) Psychiatric: mood/affect appropriate, cooperative Results - Lab Results 07/22/17 04:17 07/22/17 09:44 Most recent lab results ABG pH 7.44 pH Units (7.32-7.45) 07/19/17 19:37 ABG pCO2 44 mmHg (35-45) 07/19/17 19:37 ABG pO2 68 mmHg (85-104) L 07/19/17 19:37 ABG HCO3 30 mEq/L (21-27) H 07/19/17 19:37 ABG O2 Saturation 94 % (95-98) L 07/19/17 19:37 Calcium 8.5 mg/dL (8.6-10.3) L 07/22/17 04:17 Urine Creatinine 34 mg/dL 07/22/17 09:45 Urine Sodium 126.3 mEq/L 07/22/17 09:45 Consult Discharge Plan - Plan Instructions: Acute Respiratory Distress Syndrome (DC), Chronic Obstructive Pulmonary Disease (DC), Pneumonia (DC) Referrals: Ron Ward MD [Primary Care Provider] - 07/29/17 2:00 pm Lindsay Graham MD [Partnered Physician] - (Folow up in 4 weeks) Prescriptions: Albuterol Neb [AccuNeb] 1.25 mg IH Q6H #120 inhsol Levofloxacin [Levaquin] 750 mg PO DAILY #3 tablet PredniSONE [Deltasone] 40 mg PO DAILY 12 Days #12 tablet Roflumilast [Daliresp] 250 mcg PO DAILY #30 tablet Tiotropium Umpire [Spiriva Respimat] 4 gm IH DAILY 30 Days #120 mist.inhal <Lindsay Graham - Last Filed: 07/29/17 06:59> Date of Encounter: 07/22/17 Exam - Vital Signs Vital signs: Initial Vital Signs Temp Pulse Resp BP Pulse Ox 98.0 F 136 36 154/84 80 07/17/17 14:11 07/17/17 14:11 07/17/17 14:11 07/17/17 14:11 07/17/17 14:11 Results - Lab Results 07/23/17 04:31 07/24/17 04:19 Most recent lab results ABG pH 7.44 pH Units (7.32-7.45) 07/19/17 19:37 ABG pCO2 44 mmHg (35-45) 07/19/17 19:37 ABG pO2 68 mmHg (85-104) L 07/19/17 19:37 ABG HCO3 30 mEq/L (21-27) H 07/19/17 19:37 ABG O2 Saturation 94 % (95-98) L 07/19/17 19:37 Calcium 9.0 mg/dL (8.6-10.3) 07/24/17 04:19 Urine Creatinine 34 mg/dL 07/22/17 09:45 Urine Sodium 126.3 mEq/L 07/22/17 09:45 - Attending Attestation I examined this patient and my medical decision-making was reviewed with the Resident Physician. I agree with the documented findings, disposition and treatment plan as described except to the extent set forth below. Pt seen and examined and in summary; 61 y o female with metastatic small cell lung cancer and COPD admitted from the cancer center with abnormal labs with sodium dropping from 128 to 118 over days with some confusion. On exam, pleasant and frail lady with no LE edema noted. SIADH highly suspected due to high urine osmolality and lung cancer. Low dose tolvaptan advised immediately with fluid restriction and increased sodium in diet. Will complete workup.
[2017-07-22] MEDS: metroNIDAZOLE 500 MG TABLET PO SCH ×2 (15:52→20:07)
[2017-07-22 16:00] LABS: BUN/Creatinine Ratio 27 (6-26); Blood Urea Nitrogen 11 mg/dL (8-23); Carbon Dioxide 27 mEq/L (23-29); Chloride 84 mEq/L (98-107); Glucose 116 mg/dL (70-105); Osmolality,Calculated 246 (280-300); Sodium 118 mEq/L (136-145); Uric Acid 1.8 mg/dL (2.3-7.6); eGFR For African Americans > 60 (> 60); eGFR For Non-African Americans > 60 (> 60)
--- NOTE | 2017-07-22 16:41 | Electrocardiograph Report ---
[place] [id number] Test Date: 2017-07-19 Pat Name: Domi Keenan Department: 111 Room: 2N1 Gender: F [employer] Operator: RAW : 1955 Requested By: Wilber Pierce Order Number: [id number] Reading MD: Damian Shane Measurements Intervals [place] Rate: 104 P: 65 IA: 157 QRS: -30 QRSD: 70 T: 25 QT: 305 QTc: 365 Interpretive Statements SINUS TACHYCARDIA Electronically Signed On 07-22-2017 16:40:13 EDT by Damian Shane
[2017-07-22] MEDS: traZODone 50 MG TABLET PO SCH (20:07)
[2017-07-22] MEDS: Melatonin 3 MG TABLET PO SCH (20:07)
[2017-07-23] MEDS: Ipratropium/Albuterol Neb 3 ML IH SCH ×6 (03:42→23:12)
[2017-07-23 05:24] LABS: Basophils % 0.5 %; Hematocrit 33.5 % (35.3-44.9); Immature Granulocytes % 1.6 % (0-4); Lymphocytes # 1.1 K/mcL (0.6-4.6); Lymphocytes % 12.7 %; Mean Corpuscular HGB Conc 33.7 g/dL (31.6-35.5); Mean Corpuscular Hemoglobin 28.8 pg (28.0-33.3); Mean Corpuscular Volume 85.5 fL (83.0-100.0); Mean Platelet Volume 9.2 fL (9.4-12.4); Monocytes # 1.1 K/mcL (0.0-1.3); Monocytes % 12.4 %; Neutrophils # 6.3 K/mcL (1.6-8.9); Platelet Count 526 K/mcL (140-400); Red Blood Count 3.92 M/mcL (3.82-4.97); Red Cell Distribution Width 14.3 % (11.5-14.5); Segmented Neutrophils % 72.8 %
[2017-07-23 05:25] LABS: Hemoglobin 11.3 g/dL (11.5-15.4)
[2017-07-23 05:42] LABS: BUN/Creatinine Ratio 32 (6-26); Blood Urea Nitrogen 13 mg/dL (8-23); Calcium 9.7 mg/dL (8.6-10.3); Carbon Dioxide 31 mEq/L (23-29); Chloride 96 mEq/L (98-107); Glucose 111 mg/dL (70-105); Osmolality,Calculated 281 (280-300); Potassium 4.3 mEq/L (3.5-5.1); Sodium 135 mEq/L (136-145); eGFR For African Americans > 60 (> 60); eGFR For Non-African Americans > 60 (> 60)
[2017-07-23] MEDS: *HR* Enoxaparin 40 MG/0.4 ML SYRINGE SQ SCH (06:40)
[2017-07-23] MEDS ORDERED: 0.9 % Sodium Chloride 500 ML IVC ONE (10:02)
[2017-07-23] MEDS: Cefepime HCl 2,000 MG in Water for inj. (sterile) 20 ML 20 ML IVP SCH ×2 (10:08→17:34)
[2017-07-23] MEDS: MethylPREDNISolone 40 MG/ML VIAL IVP SCH ×2 (10:09→17:34)
[2017-07-23] MEDS: Ondansetron 4 MG/2 ML VIAL IVP PRN ×2 (10:09→17:34)
[2017-07-23] MEDS: metroNIDAZOLE 500 MG TABLET PO SCH ×3 (10:09→19:58)
[2017-07-23] MEDS: Cholecalciferol (D-3) 1,000 UNIT TABLET PO SCH (10:10)
--- NOTE | 2017-07-23 11:23 | Internal Med Progress Note ---
<Sergey Zhou - Last Filed: 07/23/17 13:37> Date of Encounter: 07/23/17 Time of Encounter: 08:15 - Assessment and plan (1) Hyponatremia Current Visit: Yes Status: Chronic Assessment and plan: Likely 2/2 SIADH in the setting of lung cancer. Sodium was 131 on 07/15/17 to 118 on 07/22/17 (dropped by 13 meq in the past week) . Nephrology consulted. Plan was for fluid restriction of 1.5L daily; salt tablets started; and one dose of tolvaptan given. Repeat Sodium level this AM increased to 134 (increased by 16 meq; goal was 6- 8meq in first 24 hours.) --500cc fluid bolus given. Patient's mentation improved today from yesterday. Seen by nephrology today. Plan for repeat sodium level this afternoon. Plan for Outpt f/u with nephrology in 2-4 weeks with BMP. Continue 1.5L fluid restriction at discharge. (2) Acute and chronic respiratory failure ([id number]) Current Visit: Yes Status: Acute Assessment and plan: Resolved Qualifiers: Respiratory failure complication: hypoxia Qualified Code(s): J96.21 - Acute and chronic respiratory failure with hypoxia (3) Small cell 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 Current Visit: No Status: Chronic Assessment and plan: History of small cell lung cancer completed chemoradiation and currently on immunotherapy. (4) Compression fracture of body of thoracic vertebra Current Visit: No Status: Chronic (5) Acute exacerbation of chronic obstructive airways disease Current Visit: Yes Status: Acute Assessment and plan: Acute on chronic hypoxic respiratory failure secondary to acute COPD exacerbation likely due to pneumonia present upon admission in the setting of metastatic lung cancer with lymphangitic carcinomatosis -Continue with Cefepime and Flagyl today, plan to transition to Levaquin for 5 days. -Plan to transition to oral steroids at discharge -duonebs q4h scheduled and q2h prn. -Supplemental oxygen as needed-currently 2.5L -blood cultures- no growth on final report -Seen by Pulmonology (On discharge send with spiriva respimat and daliresp, continue symbicort, albuterol nebulizer treatments, and oral steroids x 12 days.)-scripts printed. (6) Protein-calorie malnutrition, severe Current Visit: Yes Status: Chronic Assessment and plan: Nutrition following. (7) HTN (hypertension) Current Visit: No Status: Chronic Assessment and plan: Bp controlled. Continue home med for chronic disease management. Qualifiers: Hypertension type: essential hypertension Qualified Code(s): I10 - Essential (primary) hypertension (8) Metastatic lung cancer (metastasis from lung to other site) Current Visit: No Status: Chronic Assessment and plan: per plan in assessment above. Qualifiers: Laterality: unspecified laterality Qualified Code(s): C34.90 - Malignant neoplasm of unspecified part of unspecified bronchus or lung (9) Pneumonia Current Visit: Yes Status: Acute Assessment and plan: per plan in assessment above. CXR with COPD findings and new left basilar airspace disease concerning for pneumonia. CTA revealed COPD with pleural-based lesion in upper left lobe adjacent to rib sclerosis which is worrisome for mets. Also bilateral bronchiolitis with bibasilar peribronchial infiltrates. Qualifiers: Pneumonia type: due to other aerobic Gram-negative bacteria Laterality: left Lung location: upper lobe of lung Qualified Code(s): J15.6 - Pneumonia due to other Gram-negative bacteria (10) Acute metabolic encephalopathy Current Visit: Yes Status: Resolved Assessment and plan: likely 2/2 to hyponatremia- resolved. (11) SIADH (syndrome of inappropriate ADH production) Current Visit: Yes Status: Chronic Assessment and plan: See plan above. - Time Spent With Patient Total time spent is greater than 50% in coordination of care (as documented) at patient's floor/unit and/or counseling patient: - Subjective Interval history: Patient awake, alert, and interactive; sitting in bed during examination. States she feels like she is back to her old self today. Oriented to person( name and ) and place([facility]), and year. She has no acute complaints today, looking forward to returning home soon. - Constitutional Vitals: Temp Pulse Resp BP Pulse Ox 97.7 F 93 16 118/74 93 07/23/17 07:14 07/23/17 07:14 07/23/17 07:40 07/23/17 07:14 07/23/17 07:40 General appearance: Present: cooperative, A&O X 2, pleasant, no acute distress, underweight (Cachectic), answers questions appropriately - Head Head exam: Present: atraumatic, normal inspection, normocephalic - Eye Eye exam: Present: conjuntiva pink, sclera anicteric - ENT ENT exam: Present: mucous membranes moist - Neck Neck exam general surgery: Present: full ROM, supple - Respiratory Respiratory exam: Present: accessory muscle use, rhonchi - Cardiovascular Cardiovascular exam: Present: +S1, +S2, tachycardia - GI/Abdominal GI/Abdominal exam: Present: normal bowel sounds, soft. Absent: distended, guarding, tenderness - Extremities Exam Extremities exam: Present: warm. Absent: pedal edema, tenderness - Neurological Exam Neurological exam: Present: alert, oriented X3, no focal deficits. Absent: facial droop, speech deficit - Psychiatric Psychiatric exam: Present: normal affect, normal mood - Skin Skin exam: Present: dry, intact, warm Additional comments: post radiation changes to skin on back with dry, flaking skin and darker in appearance. Nontender to touch. Internal Medicine: Result - Labs CBC & Chem 7: 07/23/17 04:31 07/23/17 07:21 Labs: Short CBC 07/23/17 Range/Units 04:31 WBC 8.7 (4.3-11.1) K/mcL Hgb 11.3 L D (11.5-15.4) g/dL Hct 33.5 L (35.3-44.9) % Plt Count 526 H (140-400) K/mcL Neutrophils # 6.3 (1.6-8.9) K/mcL BMP 07/22/17 07/22/17 07/23/17 09:44 15:01 04:31 Sodium 118 L* 118 L* 135 L D Potassium 5.0 4.3 Chloride 84 L 96 L Carbon Dioxide 27 31 H BUN 11 13 Creatinine 0.41 L 0.41 L Glucose 116 H 111 H Calcium 9.0 9.7 07/23/17 07:21 Sodium 134 L Potassium Chloride Carbon Dioxide BUN Creatinine Glucose Calcium - ABG Interpretation ABG results: ABG ABG pH 7.44 pH Units (7.32-7.45) 07/19/17 19:37 ABG pCO2 44 mmHg (35-45) 07/19/17 19:37 ABG pO2 68 mmHg (85-104) L 07/19/17 19:37 ABG O2 Saturation 94 % (95-98) L 07/19/17 19:37 PT/INR, D-dimer PT 11.6 Seconds (9.4-12.1) 07/17/17 15:03 Consult Discharge Plan - Plan Referrals: Ron Ward MD [Primary Care Provider] - 07/29/17 2:00 pm Prescriptions: Albuterol Neb [AccuNeb] 1.25 mg IH Q6H #120 inhsol PredniSONE [Deltasone] 40 mg PO DAILY 12 Days #12 tablet Roflumilast [Daliresp] 250 mcg PO DAILY #30 tablet Tiotropium [place] [Spiriva Respimat] 4 gm IH DAILY 30 Days #120 mist.inhal <Juliano Pepe - Last Filed: 07/23/17 17:54> Date of Encounter: 07/23/17 - Assessment and plan (1) Hyponatremia Current Visit: Yes Status: Chronic (2) Acute and chronic respiratory failure ([id number]) Current Visit: Yes Status: Acute Qualifiers: Respiratory failure complication: hypoxia Qualified Code(s): J96.21 - Acute and chronic respiratory failure with hypoxia (3) Small cell 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 Current Visit: No Status: Chronic (4) Compression fracture of body of thoracic vertebra Current Visit: No Status: Chronic (5) Acute exacerbation of chronic obstructive airways disease Current Visit: Yes Status: Acute (6) Protein-calorie malnutrition, severe Current Visit: Yes Status: Chronic (7) HTN (hypertension) Current Visit: No Status: Chronic Qualifiers: Hypertension type: essential hypertension Qualified Code(s): I10 - Essential (primary) hypertension (8) Metastatic lung cancer (metastasis from lung to other site) Current Visit: No Status: Chronic Qualifiers: Laterality: unspecified laterality Qualified Code(s): C34.90 - Malignant neoplasm of unspecified part of unspecified bronchus or lung (9) Pneumonia Current Visit: Yes Status: Acute Qualifiers: Pneumonia type: due to other aerobic Gram-negative bacteria Laterality: left Lung location: upper lobe of lung Qualified Code(s): J15.6 - Pneumonia due to other Gram-negative bacteria (10) Acute metabolic encephalopathy Current Visit: Yes Status: Resolved (11) SIADH (syndrome of inappropriate ADH production) Current Visit: Yes Status: Chronic - Time Spent With Patient Total time spent is greater than 50% in coordination of care (as documented) at patient's floor/unit and/or counseling patient: - Constitutional Vitals: Temp Pulse Resp BP Pulse Ox 97.6 F 102 14 131/82 95 07/23/17 16:54 07/23/17 16:54 07/23/17 16:54 07/23/17 16:54 07/23/17 16:54 Internal Medicine: Result - Labs CBC & Chem 7: 07/23/17 04:31 07/23/17 16:08 Labs: Short CBC 07/23/17 Range/Units 04:31 WBC 8.7 (4.3-11.1) K/mcL Hgb 11.3 L D (11.5-15.4) g/dL Hct 33.5 L (35.3-44.9) % Plt Count 526 H (140-400) K/mcL Neutrophils # 6.3 (1.6-8.9) K/mcL BMP 07/23/17 07/23/17 07/23/17 04:31 07:21 16:08 Sodium 135 L D 134 L 134 L Potassium 4.3 4.4 Chloride 96 L 98 Carbon Dioxide 31 H 28 BUN 13 16 Creatinine 0.41 L 0.61 Glucose 111 H 107 H Calcium 9.7 9.3 - ABG Interpretation ABG results: ABG ABG pH 7.44 pH Units (7.32-7.45) 07/19/17 19:37 ABG pCO2 44 mmHg (35-45) 07/19/17 19:37 ABG pO2 68 mmHg (85-104) L 07/19/17 19:37 ABG O2 Saturation 94 % (95-98) L 07/19/17 19:37 PT/INR, D-dimer PT 11.6 Seconds (9.4-12.1) 07/17/17 15:03 - Attending Attestation I examined this patient and my medical decision-making was reviewed with the Resident Physician on 07/23/17. I agree with the documented findings, disposition and treatment plan as described except to the extent set forth below. Ms Keenan is currently admitted for sepsis due to pneumonia. She remains moderate to high risk due to potential for worsening clinical status. Ms Keenan is feeling much better today. She is not confused. Her sodium increased quite a bit so she is getting some fluid. No fever or chills. No GI issue. Exam alert Comfortable Mucus membranes dry Heart reg Rhonchi heard I/P 1. Hyponatremia 2. PNA Further diagnoses and plan as above.
--- NOTE | 2017-07-23 11:33 | Nephrology Progress Note ---
Date of Encounter: 07/23/17 Time of Encounter: 11:29 - Assessment and Plan (1) Hyponatremia Current Visit: Yes Status: Chronic Increased to 134, 500 cc Bolus of D5W already given. Will repeat NA level this afternoon. Encouraged and educated about 1.5 Liter fluid restriction when she goes home. Will need to F/U with Dr. Shoemaker in 2-4 weeks with BMP. (2) Acute exacerbation of chronic obstructive airways disease Current Visit: Yes Status: Acute Per primary. (3) History of lung cancer Current Visit: Yes Status: Acute Per primary. Subjective Principal diagnosis: COPD exacerbation Interval history: Pt seen/examined. No signs of distress. Objective - Vital Signs Vital signs: Vital Signs Temp Pulse Resp BP Pulse Ox 07/23/17 07:40 16 93 07/23/17 07:14 97.7 F 93 16 118/74 95 07/23/17 05:00 98 F 106 18 106/69 93 07/23/17 03:42 19 97 07/22/17 23:25 17 92 07/22/17 20:00 97 07/22/17 19:49 18 94 07/22/17 19:00 98 F 116 18 124/101 95 07/22/17 15:58 98.2 F 93 16 150/94 97 07/22/17 15:18 18 97 07/22/17 11:32 18 97 Intake and Output 07/22/17 07/23/17 07/23/17 23:59 07:59 15:59 Intake Total 70 / 70 340 / 340 300 / 300 Output Total 1400 / 1400 2250 / 2250 200 / 200 Balance -1330 / -1330 -1910 / -1910 100 / 100 Intake: IV Fluids 20 / 20 Maxipime 2,000 MG In Water for 20 / 20 inj. (sterile) 20 ML @ 300 mls/ hr IVP Q12HR BHUPENDRA Rx#:[id number] Oral 50 / 50 340 / 340 300 / 300 Output: Urine 1400 / 1400 2250 / 2250 200 / 200 Other: Meal Breakfast Percent of Meal Consumed 75% Weight 48.6 kg Patient Weight 07/23/17 23:59 Weight 48.6 kg - General Appearance General appearance: Present: chronically ill, fatigue, frail EENT: Present: ATNC, hearing intact, vision intact Neck: Present: supple Respiratory: Present: clear Cardiology: Present: no edema, regular rate, regular rhythm, normal S1, normal S2 Gastrointestinal: Present: normoactive bowel sounds, no tenderness, no guarding Integumentary: Present: no rash, warm and dry Neurologic: Present: alert and oriented x3 Psychiatric: Present: mood/affect appropriate, cooperative - Lab 07/23/17 04:31 07/23/17 07:21 Most recent lab results ABG pH 7.44 pH Units (7.32-7.45) 07/19/17 19:37 ABG pCO2 44 mmHg (35-45) 07/19/17 19:37 ABG pO2 68 mmHg (85-104) L 07/19/17 19:37 ABG HCO3 30 mEq/L (21-27) H 07/19/17 19:37 ABG O2 Saturation 94 % (95-98) L 07/19/17 19:37 Calcium 9.7 mg/dL (8.6-10.3) 07/23/17 04:31 Urine Creatinine 34 mg/dL 07/22/17 09:45 Urine Sodium 126.3 mEq/L 07/22/17 09:45 Consult Discharge Plan - Plan Referrals: Ron Ward MD [Primary Care Provider] - 07/29/17 2:00 pm Prescriptions: Albuterol Neb [AccuNeb] 1.25 mg IH Q6H #120 inhsol PredniSONE [Deltasone] 40 mg PO DAILY 12 Days #12 tablet Roflumilast [Daliresp] 250 mcg PO DAILY #30 tablet Tiotropium [place] [Spiriva Respimat] 4 gm IH DAILY 30 Days #120 mist.inhal
[2017-07-23 17:01] LABS: BUN/Creatinine Ratio 26 (6-26); Blood Urea Nitrogen 16 mg/dL (8-23); Calcium 9.3 mg/dL (8.6-10.3); Carbon Dioxide 28 mEq/L (23-29); Chloride 98 mEq/L (98-107); Glucose 107 mg/dL (70-105); Osmolality,Calculated 280 (280-300); Potassium 4.4 mEq/L (3.5-5.1); Sodium 134 mEq/L (136-145); eGFR For African Americans > 60 (> 60); eGFR For Non-African Americans > 60 (> 60)
[2017-07-23] MEDS ORDERED: 0.9 % Sodium Chloride 500 ML ONE (17:13)
[2017-07-23] MEDS: traZODone 50 MG TABLET PO SCH (19:58)
[2017-07-23] MEDS: Melatonin 3 MG TABLET PO SCH (19:58)
[2017-07-24] MEDS: Ipratropium/Albuterol Neb 3 ML IH SCH ×3 (03:27→11:08)
[2017-07-24] MEDS: MethylPREDNISolone 40 MG/ML VIAL IVP SCH (04:56)
[2017-07-24] MEDS: Cefepime HCl 2,000 MG in Water for inj. (sterile) 20 ML 20 ML IVP SCH (04:56)
[2017-07-24 05:04] LABS: BUN/Creatinine Ratio 33 (6-26); Blood Urea Nitrogen 14 mg/dL (8-23); Carbon Dioxide 28 mEq/L (23-29); Chloride 98 mEq/L (98-107); Glucose 107 mg/dL (70-105); Osmolality,Calculated 279 (280-300); Potassium 4.3 mEq/L (3.5-5.1); Sodium 134 mEq/L (136-145); eGFR For African Americans > 60 (> 60); eGFR For Non-African Americans > 60 (> 60)
[2017-07-24] MEDS ORDERED: *HR* Enoxaparin 40 MG/0.4 ML SYRINGE SQ SCH (06:00)
[2017-07-24] MEDS: Cholecalciferol (D-3) 1,000 UNIT TABLET PO SCH (09:08)
[2017-07-24] MEDS: metroNIDAZOLE 500 MG TABLET PO SCH (09:08)
--- NOTE | 2017-07-24 09:19 | Discharge Summary ---
- NOTES TO OUTPATIENT PROVIDER Notes to Outpatient Provider: Pt admitted with dyspnea following cancer treatment. Found to have pneumonia and treated. She had issues with fluid overload and hyponatremia from SIADH. Tolvaptan given with improvement. To follow with renal and oncology. Date of Encounter: 07/24/17 Time of Encounter: 09:14 - Discharge Diagnosis (1) Acute and chronic respiratory failure ([id number]) Priority: Primary Status: Resolved Qualifiers: Respiratory failure complication: hypoxia Qualified Code(s): J96.21 - Acute and chronic respiratory failure with hypoxia (2) Hyponatremia Priority: Secondary Status: Chronic (3) Small cell 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 Priority: Secondary Status: Chronic (4) Compression fracture of body of thoracic vertebra Priority: Secondary Status: Chronic (5) Acute exacerbation of chronic obstructive airways disease Priority: Primary Status: Resolved (6) Protein-calorie malnutrition, severe Priority: Secondary Status: Chronic (7) HTN (hypertension) Priority: Secondary Status: Chronic Qualifiers: Hypertension type: essential hypertension Qualified Code(s): I10 - Essential (primary) hypertension (8) Metastatic lung cancer (metastasis from lung to other site) Priority: Secondary Status: Chronic Qualifiers: Laterality: unspecified laterality Qualified Code(s): C34.90 - Malignant neoplasm of unspecified part of unspecified bronchus or lung (9) Pneumonia Priority: Secondary Status: Resolved Qualifiers: Pneumonia type: due to other aerobic Gram-negative bacteria Laterality: left Lung location: upper lobe of lung Qualified Code(s): J15.6 - Pneumonia due to other Gram-negative bacteria (10) Acute metabolic encephalopathy Priority: Secondary Status: Resolved (11) SIADH (syndrome of inappropriate ADH production) Priority: Secondary Status: Chronic Hospital course: Ms. Keenan is a 61 year old female with hx of lung cancer presented to ED with dyspnea follow treatment at cancer center. She was evaluated and felt to have pneumonia and subsequently admitted. Ms Keenan was admitted to [facility]. She was started on IV abx, aerosols and steroids. She had hyponatremia as well. She was seen by pulmonary service and started on additional meds with plans for other meds added at discharge. She had significant dyspnea that has now improved. She became confused and was found to have profound hyponatremia. She was given a dose of Tolvaptan and had aquaresis with improvement in sodium. She was given a small amount of fluid on 07/23 and today she remains oriented and feels well. At this time she is at baseline. She is currently afebrile and ready for discharge home. She is to follow up with renal in 4 weeks with a BMP in 1 week. Discharge discussed with: patient, nurse - Time Spent with Patient Total time spent providing and/or coordinating discharge services: 41min - Discharge Medications Prescriptions: Albuterol Neb [AccuNeb] 1.25 mg IH Q6H #120 inhsol Levofloxacin [Levaquin] 750 mg PO DAILY #3 tablet PredniSONE [Deltasone] 40 mg PO DAILY 12 Days #12 tablet Roflumilast [Daliresp] 250 mcg PO DAILY #30 tablet Tiotropium [place] [Spiriva Respimat] 4 gm IH DAILY 30 Days #120 mist.inhal Home Medications: Trazodone HCl 200 mg PO HS 02/15/16 [History] Albuterol Sulfate [Albuterol Inhaler] 2 puff IH Q6H PRN 10/14/16 [History] Budesonide/Formoterol 160/4.5 [Symbicort 160/4.5] 2 puff IH BIDR 10/14/16 [ History] Oxygen 2 l NS AD 10/14/16 [History] Omeprazole [PriLOSEC] 20 mg PO DAILY@0630 #30 capsule. 06/03/17 [Rx] Albuterol Neb [Proventil Neb] 2.5 mg IH Q2H PRN #120 inhsol 06/08/17 [Rx] Buspirone HCl [Buspar] 15 mg PO BID #60 tablet 06/08/17 [Rx] DULoxetine [Cymbalta] 30 mg PO HS #30 capsule. 06/08/17 [Rx] Metoprolol [Lopressor] 12.5 mg PO BID PRN MDD SEE NOTE 06/13/17 [History] Potassium Chloride [K-Tab ER] 20 meq PO DAILY 06/13/17 [History] Calcium Carbonate [Tums] 1,000 mg PO TID tab.chew 06/16/17 [Rx] Melatonin [Melatin] 3 mg PO HS 06/21/17 [History] Cholecalciferol (D-3) [Vitamin D] 1,000 unit PO DAILY #30 tablet 06/28/17 [Rx] Loratadine [Claritin] 10 mg PO DAILY 7 Days #7 tablet 07/01/17 [Rx] clonazePAM [Klonopin] 0.5 mg PO Q4H PRN 7 Days #28 tablet MDD 6 07/01/17 [Rx] OxyCODONE Immed Rel [Roxicodone 10 MG] 10 mg PO TID PRN 30 Days #90 tab [Rx] Ipratropium/Albuterol Neb [Duoneb] 3 ml IH Q4HR #1 vial.neb 07/15/17 [Rx] Promethazine [Phenergan] 12.5 mg PO Q8HR #24 tablet 07/15/17 [Rx] Albuterol Neb [AccuNeb] 1.25 mg IH Q6H #120 inhsol 07/21/17 [Rx] PredniSONE [Deltasone] 40 mg PO DAILY 12 Days #12 tablet 07/21/17 [Rx] Roflumilast [Daliresp] 250 mcg PO DAILY #30 tablet 07/21/17 [Rx] Tiotropium [place] [Spiriva Respimat] 4 gm IH DAILY 30 Days #120 mist.inhal 05/05 [Rx] GuaiFENesin ER [Mucinex] 600 mg PO BID tbbp.12hr 07/24/17 [Rx] Levofloxacin [Levaquin] 750 mg PO DAILY #3 tablet 07/24/17 [Rx] Polyethylene Glycol 3350 [MiraLAX] 17 gm PO DAILY powd.pack 07/24/17 [Rx] Allergies/Adverse Reactions: 3 Allergy/AdvReac Type Severity Reaction Status Date / Time No Known Allergies Allergy Verified 07/05/17 14:30 Date of admission: 07/17/17 20:29 Primary care physician: Ron Ward MD Consults: 07/18/17 00:34 Consult to Nutrition [CONS] Routine Comment: Consulting Provider: NUTRITION Reason for Dietary Consult: MST Score 07/20/17 08:58 Consult to Pulmonology [CONS] Routine Consulting Provider: [facility] Reason for Consult: Worsening respiratory status, hx of stage IV lung cancer with mets Time Notified: 08:58 Call Completed: Yes 07/22/17 09:34 Consult to Nephrology [CONS] Stat Consulting Provider: [facility] [place]/ORIMI/MALGORZATA/CHERELLE Reason for Consult: hyponatremia and new AMS, SIADH?, lung cancer. Time Notified: 09:35 Call Completed: Yes Discharging clinician: Juliano Pepe Anticipated date of discharge: 07/24/17 - Constitutional Vitals: Temp Pulse Resp BP Pulse Ox 97.8 F 94 16 153/93 93 07/24/17 06:35 07/24/17 06:35 07/24/17 07:31 07/24/17 06:35 07/24/17 07:31 General appearance: Present: cooperative, A&O X 2, pleasant, underweight ( Cachectic), answers questions appropriately - Head Head exam: Present: normocephalic - Eye Eye exam: Present: EOMI, conjuntiva pink - ENT ENT exam: Present: mucous membranes dry - Respiratory Respiratory exam: Present: rhonchi, wheezes - Cardiovascular Cardiovascular exam: Present: distant heart sounds, RRR. Absent: tachycardia - GI/Abdominal GI/Abdominal exam: Present: soft. Absent: tenderness - Extremities Exam Extremities exam: Present: warm. Absent: tenderness - Neurological Exam Neurological exam: Present: alert, oriented X3 - Skin Skin exam: Present: dry, warm - Patient Status Disposition: Home Health Service Condition: Fair Functional capacity at discharge: independent ambulation Overall status at discharge: patient is progressing back to baseline - Discharge Instructions Follow Up With: Ron Ward MD [Primary Care Provider] - 07/29/17 2:00 pm Lindsay Graham MD [Partnered Physician] - (Folow up in 4 weeks) - Diet and Activity Activity: increase activity as tolerated Diet: advance to your usual diet (1500 ml fluid restriction)
--- NOTE | 2017-07-24 09:49 | Physician Discharge Referral ---
Home Health/Hosp Referral Info Transfer to: Home Health Provider in Charge Post Discharge: PCP - Diagnosis (1) Acute and chronic respiratory failure (swevd-ju-sjifovr) Priority: Primary Status: Resolved (2) Hyponatremia Priority: Secondary Status: Chronic (3) Small cell 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 Priority: Secondary Status: Chronic (4) Compression fracture of body of thoracic vertebra Priority: Secondary Status: Chronic (5) Acute exacerbation of chronic obstructive airways disease Priority: Primary Status: Resolved (6) Protein-calorie malnutrition, severe Priority: Secondary Status: Chronic (7) HTN (hypertension) Priority: Secondary Status: Chronic (8) Metastatic lung cancer (metastasis from lung to other site) Priority: Secondary Status: Chronic (9) Pneumonia Priority: Primary Status: Resolved (10) Acute metabolic encephalopathy Priority: Secondary Status: Resolved (11) SIADH (syndrome of inappropriate ADH production) Priority: Secondary Status: Chronic - Respiratory Orders Oxygen / L per min (Maintain saturation greater than 88%) Smoking Cessation: Smoking cessation has been advised. For more information, call the [place] Tobacco Quit Line at 5-512-BJGT-NOW. - Diet/Nutrition Diet/Nutrition Orders: Regular (1500 ML fluid restriction) - Activity Activity Orders: Up ad em - Services Needed Following services are medically necessary services: Nursing - Transfer Medications Prescriptions: Albuterol Neb [AccuNeb] 1.25 mg IH Q6H #120 inhsol Levofloxacin [Levaquin] 750 mg PO DAILY #3 tablet PredniSONE [Deltasone] 40 mg PO DAILY 12 Days #12 tablet Roflumilast [Daliresp] 250 mcg PO DAILY #30 tablet Tiotropium [place] [Spiriva Respimat] 4 gm IH DAILY 30 Days #120 mist.inhal Home Medications: Trazodone HCl 200 mg PO HS 02/15/16 [History] Albuterol Sulfate [Albuterol Inhaler] 2 puff IH Q6H PRN 10/14/16 [History] Budesonide/Formoterol 160/4.5 [Symbicort 160/4.5] 2 puff IH BIDR 10/14/16 [ History] Oxygen 2 l NS AD 10/14/16 [History] Omeprazole [PriLOSEC] 20 mg PO DAILY@0630 #30 capsule. 06/03/17 [Rx] Albuterol Neb [Proventil Neb] 2.5 mg IH Q2H PRN #120 inhsol 04/21/18 [Rx] Buspirone HCl [Buspar] 15 mg PO BID #60 tablet 06/08/17 [Rx] DULoxetine [Cymbalta] 30 mg PO HS #30 capsule. 06/08/17 [Rx] Metoprolol [Lopressor] 12.5 mg PO BID PRN MDD SEE NOTE 06/13/17 [History] Potassium Chloride [K-Tab ER] 20 meq PO DAILY 06/13/17 [History] Calcium Carbonate [Tums] 1,000 mg PO TID tab.chew 06/16/17 [Rx] Melatonin [Melatin] 3 mg PO HS 06/21/17 [History] Cholecalciferol (D-3) [Vitamin D] 1,000 unit PO DAILY #30 tablet 06/28/17 [Rx] Loratadine [Claritin] 10 mg PO DAILY 7 Days #7 tablet 07/01/17 [Rx] clonazePAM [Klonopin] 0.5 mg PO Q4H PRN 7 Days #28 tablet MDD 6 07/01/17 [Rx] OxyCODONE Immed Rel [Roxicodone 10 MG] 10 mg PO TID PRN 30 Days #90 tab [Rx] Ipratropium/Albuterol Neb [Duoneb] 3 ml IH Q4HR #1 vial.neb 07/15/17 [Rx] Promethazine [Phenergan] 12.5 mg PO Q8HR #24 tablet 07/15/17 [Rx] Albuterol Neb [AccuNeb] 1.25 mg IH Q6H #120 inhsol 07/21/17 [Rx] PredniSONE [Deltasone] 40 mg PO DAILY 12 Days #12 tablet 07/21/17 [Rx] Roflumilast [Daliresp] 250 mcg PO DAILY #30 tablet 07/21/17 [Rx] Tiotropium [place] [Spiriva Respimat] 4 gm IH DAILY 30 Days #120 mist.inhal 05/05 [Rx] GuaiFENesin ER [Mucinex] 600 mg PO BID tbbp.12hr 07/24/17 [Rx] Levofloxacin [Levaquin] 750 mg PO DAILY #3 tablet 07/24/17 [Rx] Polyethylene Glycol 3350 [MiraLAX] 17 gm PO DAILY powd.pack 07/24/17 [Rx] Allergies/Adverse Reactions: 3 Allergy/AdvReac Type Severity Reaction Status Date / Time No Known Allergies Allergy Verified 07/05/17 14:30 Certification: Further, I certify that my clinical findings support that this patient is homebound (i.e. absences from home require considerable and taxing effort and are for medical reasons or yazidism services or infrequently or short duration when for other reasons) because: Homebound Reason: Patient requires assistance of a person or device to safely leave home, Leaving home requires considerable and taxing effort due to condition, Severity of cardiac or pulmonary status limits activity tolerance Attestation: My signature below is to certify that this patient is under my care and that I, or nurse practitioner, or a physician's sales office assistant working with me, has a face-to -face encounter with this patient.
[2017-07-24 11:08] VITALS: BP 149/84
--- NOTE | 2017-07-24 13:38 | Nephrology Progress Note ---
Date of Encounter: 07/24/17 Time of Encounter: 10:00 - Assessment and Plan (1) Hyponatremia Status: Chronic Will need to F/U with Dr. Shoemaker in 2-4 weeks with BMP in one week. Educated about 1.5 Liter fluid restriction. (2) History of lung cancer Status: Acute Per primary/oncology. Subjective Principal diagnosis: COPD exacerbation Interval history: Pt seen/examined. No signs of distress. Objective - Vital Signs Vital signs: Vital Signs Temp Pulse Resp BP Pulse Ox 07/24/17 11:09 16 94 07/24/17 11:05 98 F 87 16 149/84 98 07/24/17 07:31 16 93 07/24/17 06:35 97.8 F 94 16 153/93 93 07/24/17 04:00 98 F 88 16 147/85 96 07/24/17 03:27 16 96 07/23/17 23:13 18 94 07/23/17 20:00 97.9 F 106 16 146/83 92 07/23/17 19:46 16 94 07/23/17 16:54 97.6 F 102 14 131/82 95 07/23/17 15:27 16 96 Intake and Output 07/23/17 07/24/17 07/24/17 23:59 07:59 15:59 Intake Total 240 / 240 120 / 120 Output Total 400 / 400 500 / 500 200 / 200 Balance -160 / -160 -380 / -380 -200 / -200 Intake: IV Fluids 20 / 20 Maxipime 2,000 MG In Water for 20 / 20 inj. (sterile) 20 ML @ 300 mls/ hr IVP Q12HR [facility] Rx#:[id number] Oral 220 / 220 120 / 120 Output: Urine 400 / 400 500 / 500 200 / 200 Other: Meal Dinner Percent of Meal Consumed 25% Weight 48.6 kg Patient Weight 07/24/17 23:59 Weight 48.6 kg - General Appearance General appearance: Present: chronically ill, fatigue, frail EENT: Present: ATNC, hearing intact, vision intact Respiratory: Present: clear Cardiology: Present: no edema, regular rate, regular rhythm, normal S1, normal S2 Gastrointestinal: Present: normoactive bowel sounds, no tenderness, no guarding Integumentary: Present: no rash, warm and dry Neurologic: Present: alert and oriented x3 Psychiatric: Present: mood/affect appropriate, cooperative - Lab 07/23/17 04:31 07/24/17 04:19 Most recent lab results ABG pH 7.44 pH Units (7.32-7.45) 07/19/17 19:37 ABG pCO2 44 mmHg (35-45) 07/19/17 19:37 ABG pO2 68 mmHg (85-104) L 07/19/17 19:37 ABG HCO3 30 mEq/L (21-27) H 07/19/17 19:37 ABG O2 Saturation 94 % (95-98) L 07/19/17 19:37 Calcium 9.0 mg/dL (8.6-10.3) 07/24/17 04:19 Urine Creatinine 34 mg/dL 07/22/17 09:45 Urine Sodium 126.3 mEq/L 07/22/17 09:45 Consult Discharge Plan - Plan Instructions: Acute Respiratory Distress Syndrome (DC), Chronic Obstructive Pulmonary Disease (DC), Pneumonia (DC) Referrals: Ron Ward MD [Primary Care Provider] - 07/29/17 2:00 pm Lindsay Graham MD [Partnered Physician] - (Folow up in 4 weeks) Prescriptions: Albuterol Neb [AccuNeb] 1.25 mg IH Q6H #120 inhsol Levofloxacin [Levaquin] 750 mg PO DAILY #3 tablet PredniSONE [Deltasone] 40 mg PO DAILY 12 Days #12 tablet Roflumilast [Daliresp] 250 mcg PO DAILY #30 tablet Tiotropium [place] [Spiriva Respimat] 4 gm IH DAILY 30 Days #120 mist.inhal
== END 2017-07-24 12:45 | disposition home health service (06) | DRG 177 ==
LOC: 2NENU 14:09 → EMEROO 14:09 → SUATTDRO 20:29 → 2NENU 20:53
PROVIDERS: ADMIT Internal Medicine; ATTEND Internal Medicine

== ENCOUNTER 2017-07-30 12:23 | Observation (INO) ==
[2017-07-30] MEDS ORDERED: Ipratropium/Albuterol Neb 3 ML IH ONE (13:39)
--- NOTE | 2017-07-30 13:43 | Emergency Department Note ---
Disposition Clinical Impression: Weakness Disposition: Admitted As Inpatient Condition: Fair Referrals: Ron Ward MD [Primary Care Provider] - Forms: ED Satisfaction Letter Time of Disposition: 16:12 Weakness HPI - General Chief complaint: ED Weakness Stated complaint: "real weak", "low bp" Time Seen by Provider: 07/30/17 12:51 Source: patient Limitations: no limitations Nursing Notes Reviewed: Yes Vital Signs Reviewed: Yes - History of Present Illness HPI Narrative: Mrs. Starkey, a 61 yo female, presents from home with son bedside for evaluation of being tired and weak. Symptoms began yesterday describes being tired. Home health nurse measured her systolic blood pressure as 102 yesterday. On awakening this morning, she felt profoundly weak and sleepy. She is able to walk under her own power however feels lightheaded after a number of steps. She has not fallen and has had no syncope. She has a scheduled appointment today with her PCP, Dr. Fischer, at 16:30 however, she feels she is too weak and will not be able to wait that long. ROS: Positive: As above Negative: Fever, chills, nausea, vomiting, chest pain, palpitations, dyspnea, diaphoresis, unusual cough, melena, hematochezia, headache, changes in vision, numbness or tingling Patient has a history of lung cancer with metastasis. Oncologist is Dr. Beltrán. Patient has a history of COPD on 2 L home oxygen continuous as well as home breathing treatments. Pain Scale: 3 - Related Data Home Medications Medication Instructions Recorded Confirmed Trazodone HCl 200 mg PO HS 02/15/16 07/30/17 Albuterol Sulfate [Albuterol 2 puff IH Q6H PRN 10/14/16 07/30/17 Inhaler] Budesonide/Formoterol 160/4.5 2 puff IH BIDR 10/14/16 07/30/17 [Symbicort 160/4.5] Oxygen 2 l NS AD 10/14/16 07/30/17 Metoprolol [Lopressor] 12.5 mg PO BID PRN MDD SEE NOTE 06/13/17 07/30/17 Potassium Chloride [K-Tab ER] 20 meq PO DAILY 06/13/17 07/30/17 Melatonin [Melatin] 3 mg PO HS 06/21/17 07/30/17 Previous Rx's Medication Instructions Recorded Omeprazole [PriLOSEC] 20 mg PO DAILY@0630 #30 capsule. 06/03/17 Albuterol Neb [Proventil Neb] 2.5 mg IH Q2H PRN #120 inhsol 06/08/17 Buspirone HCl [Buspar] 15 mg PO BID #60 tablet 06/08/17 DULoxetine [Cymbalta] 30 mg PO HS #30 capsule. 06/08/17 Calcium Carbonate [Tums] 1,000 mg PO TID tab.chew 06/16/17 Cholecalciferol (D-3) [Vitamin D] 1,000 unit PO DAILY #30 tablet 06/28/17 Loratadine [Claritin] 10 mg PO DAILY 7 Days #7 tablet 07/01/17 clonazePAM [Klonopin] 0.5 mg PO Q4H PRN 7 Days #28 07/01/17 tablet MDD 6 OxyCODONE Immed Rel [Roxicodone 10 10 mg PO TID PRN 30 Days #90 tab 07/12/17 MG] Ipratropium/Albuterol Neb [Duoneb] 3 ml IH Q4HR #1 vial.neb 07/15/17 Promethazine [Phenergan] 12.5 mg PO Q8HR #24 tablet 07/15/17 PredniSONE [Deltasone] 40 mg PO DAILY 12 Days #12 tablet 07/21/17 Roflumilast [Daliresp] 250 mcg PO DAILY #30 tablet 07/21/17 Tiotropium [place] [Spiriva 4 gm IH DAILY 30 Days #120 07/21/17 Respimat] mist.inhal GuaiFENesin ER [Mucinex] 600 mg PO BID tbbp.12hr 07/24/17 Polyethylene Glycol 3350 [MiraLAX] 17 gm PO DAILY powd.pack 07/24/17 Allergies Allergy/AdvReac Type Severity Reaction Status Date / Time No Known Allergies Allergy Verified 07/30/17 15:31 All systems ED: reviewed and negative except as stated. 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 She appears frail. Head: atraumatic, normocephalic Eye: normal appearance, EOMI, no scleral icterus, no conjunctival injection ENT: mucous membranes moist, normal external ear exam Neck: normal inspection, trachea midline, full ROM Chest: normal inspection, symmetric chest rise Respiratory: Poor respiratory effort. Prolonged expiratory phase. Bilateral breath sounds have coarse scattered wheezes with no crackles or rhonchi. Cardiovascular: Regular rate and rhythm. No clicks, rubs, gallops, or murmors. Normal heart sounds. Abdomen: Demonstrates scaphoid. Bowel sounds present normoactive x-4 quadrants. Abdomen is soft, nondistended, and nontender. No guarding or rebound. No organomegaly noted. Musculoskeletal: Spontaneously moving all extremities. Strength 4/5 and equal in upper and lower extremities bilaterally. Skin: warm, dry, intact. Neuro: Alert and oriented x4. Sensation light touch intact. Psych: Patient's affect is appropriate for situation. - General Limitations: no limitations General appearance: alert Course Course Narrative: Nursing notes chief complaint of hypotension. This was the patient's word believing that her systolic blood pressure 102 yesterday is contributing to her symptoms. She is not hypotensive on intake vitals nor on bedside monitor. Though weak, she has no focal deficits and is neuromuscular intact with appropriate mentation. We will search for alternate causes. We will provide DuoNeb breathing treatments because of her coarse lung sounds; she is not hypoxic on her baseline 2 L oxygen nasal cannula. Urinalysis is not concerning for UTI. Serum hematology shows no anemia. Serum chemistry shows normal electrolytes. Slight concentration and urine consistent with dehydration. Patient's urine did appear dark and she is slightly tachycardic. Will provide 500 mL IV fluid and reassess. On reassessment, patient's heart rate did improve and she is not tachycardic. Liver enzymes unremarkable; patient's son suspected she may have metastasis to her liver. I yet uncover a cause for her weakness. Patient already notes that she has nearly fallen on several occasions. She does live at home with her who is present in the evenings. She is agreeable to admission for continued evaluation and management of her unexplained weakness. I discussed the patient with the admitting hospitalist who agrees to accept the patient for continued evaluation and management. Vital Signs Temperature 97.8 F 07/30/17 12:42 Pulse Rate 125 07/30/17 12:42 Respiratory Rate 24 07/30/17 12:42 Blood Pressure 117/68 07/30/17 12:42 O2 Sat by Pulse Oximetry 93 07/30/17 12:42 Temperature 97.8 F 07/30/17 12:42 Pulse Rate 115 07/30/17 14:09 Respiratory Rate 33 07/30/17 14:09 Blood Pressure 124/84 07/30/17 14:09 O2 Sat by Pulse Oximetry 98 07/30/17 14:09 Oxygen Delivery Oxygen Delivery Nasal Cannula Weakness - Medical Records Medical records reviewed: Yes I reviewed the patient's medical records. - Lab Data Result diagrams: 07/30/17 13:44 07/30/17 13:20 Lab Results 07/30/17 07/30/17 07/30/17 Range/Units 13:20 13:20 13:20 WBC (4.3-11.1) K/mcL RBC (3.82-4.97) M/mcL Hgb (11.5-15.4) g/dL Hct (35.3-44.9) % MCV (83.0-100.0) fL MCH (28.0-33.3) pg MCHC (31.6-35.5) g/dL RDW (11.5-14.5) % Plt Count (140-400) K/mcL MPV (9.4-12.4) fL Immature Gran % (0-4) % Seg Neutrophils % % Lymphocytes % % Monocytes % % Eosinophils % % Basophils % % Neutrophils # (1.6-8.9) K/mcL Lymphocytes # (0.6-4.6) K/mcL Monocytes # (0.0-1.3) K/mcL Eosinophils # (0.0-0.6) K/mcL Basophils # (0.0-0.2) K/mcL PT (9.4-12.1) Seconds INR APTT (26.0-36.0) Seconds Sodium 137 (136-145) mEq/L Potassium 3.7 (3.5-5.1) mEq/L Chloride 101 (98-107) mEq/L Carbon Dioxide 23 (23-29) mEq/L BUN 10 (8-23) mg/dL Creatinine 0.42 L (0.60-1.20) mg/dL Est GFR ( Amer) > 60 (> 60) Est GFR (Non-Af Amer) > 60 (> 60) BUN/Creatinine Ratio 24 (6-26) Glucose 118 H (70-105) mg/dL Calculated Osmolality 284 (280-300) Lactic Acid 1.6 (0.5-2.2) mmol/L Calcium 9.5 (8.6-10.3) mg/dL Total Bilirubin 0.5 (0.3-1.0) mg/dL Direct Bilirubin 0.1 (0.0-0.2) mg/dL Indirect Bilirubin 0.4 (0.0-1.2) mg/dL AST 28 (13-39) Units/L ALT 12 (7-52) Units/L Alkaline Phosphatase 108 H (34-104) Units/L Creatine Kinase 161 (30-223) Units/L Troponin I < 0.03 (< 0.04) ng/mL Serum Total Protein 6.8 (6.4-8.9) g/dL Albumin 3.7 (3.5-5.7) g/dL Globulin 3.1 (2.4-3.5) g/dL Albumin/Globulin Ratio 1.2 (1.1-2.2) Urine Color (Yellow) Urine Clarity (Clear) Urine pH (5.0-8.0) pH Units Ur Specific [place] (1.010-1.025) Urine Protein (Neg-Trace) mg/dL Urine Glucose (UA) (Normal) mg/dL Urine Ketones (Negative) mg/dL Urine Blood (Negative) Urine Nitrite (Negative) Urine Bilirubin (Negative) Urine Urobilinogen (Normal) mg/dL Ur Leukocyte Esterase (Negative) Urine Microscopic RBC (0-3) per hpf Urine Microscopic WBC (0-3) per hpf Ur Squamous Epith Cells (None-Few) per lpf Urine Bacteria (None-Few) per hpf Hyaline Casts (None-Few) per lpf Ur Culture Indicated? (NO) 07/30/17 07/30/17 07/30/17 Range/Units 13:20 13:44 14:45 WBC 14.4 H (4.3-11.1) K/mcL RBC 4.22 (3.82-4.97) M/mcL Hgb 11.8 (11.5-15.4) g/dL Hct 36.8 (35.3-44.9) % MCV 87.2 (83.0-100.0) fL MCH 28.0 (28.0-33.3) pg MCHC 32.1 (31.6-35.5) g/dL RDW 14.6 H (11.5-14.5) % Plt Count 371 (140-400) K/mcL MPV 9.5 (9.4-12.4) fL Immature Gran % 0.7 (0-4) % Seg Neutrophils % 81.5 % Lymphocytes % 10.7 % Monocytes % 6.6 % Eosinophils % 0.3 % Basophils % 0.2 % Neutrophils # 11.7 H (1.6-8.9) K/mcL Lymphocytes # 1.5 (0.6-4.6) K/mcL Monocytes # 1.0 (0.0-1.3) K/mcL Eosinophils # 0.0 (0.0-0.6) K/mcL Basophils # 0.0 (0.0-0.2) K/mcL PT 12.7 H (9.4-12.1) Seconds INR 1.2 APTT 21.4 L (26.0-36.0) Seconds Sodium (136-145) mEq/L Potassium (3.5-5.1) mEq/L Chloride (98-107) mEq/L Carbon Dioxide (23-29) mEq/L BUN (8-23) mg/dL Creatinine (0.60-1.20) mg/dL Est GFR ( Amer) (> 60) Est GFR (Non-Af Amer) (> 60) BUN/Creatinine Ratio (6-26) Glucose (70-105) mg/dL Calculated Osmolality (280-300) Lactic Acid (0.5-2.2) mmol/L Calcium (8.6-10.3) mg/dL Total Bilirubin (0.3-1.0) mg/dL Direct Bilirubin (0.0-0.2) mg/dL Indirect Bilirubin (0.0-1.2) mg/dL AST (13-39) Units/L ALT (7-52) Units/L Alkaline Phosphatase (34-104) Units/L Creatine Kinase (30-223) Units/L Troponin I (< 0.04) ng/mL Serum Total Protein (6.4-8.9) g/dL Albumin (3.5-5.7) g/dL Globulin (2.4-3.5) g/dL Albumin/Globulin Ratio (1.1-2.2) Urine Color Dark Yellow (Yellow) Urine Clarity Clear (Clear) Urine pH 6.0 (5.0-8.0) pH Units Ur Specific [place] 1.028 H (1.010-1.025) Urine Protein 100 H (Neg-Trace) mg/dL Urine Glucose (UA) Normal (Normal) mg/dL Urine Ketones 15 H (Negative) mg/dL Urine Blood Negative (Negative) Urine Nitrite Negative (Negative) Urine Bilirubin Moderate H (Negative) Urine Urobilinogen Normal (Normal) mg/dL Ur Leukocyte Esterase Negative (Negative) Urine Microscopic RBC 0-3 (0-3) per hpf Urine Microscopic WBC 0-3 (0-3) per hpf Ur Squamous Epith Cells Moderate H (None-Few) per lpf Urine Bacteria None Seen (None-Few) per hpf Hyaline Casts None Seen (None-Few) per lpf Ur Culture Indicated? NO (NO) - EKG Data EKG attestation: Yes I reviewed and interpreted this EKG. EKG results narrative: EKG dated 07/30/17 at 13:26 interpreted as sinus tachycardia with a rate of 121. Short GA of 109 ms. QRS 81, QTC 410. Left axis. Nonspecific ST-T changes. Compared to previous dated 07/19/2017 showing no acute ischemic changes comparison.
[2017-07-30 13:54] LABS: INR 1.2; Prothrombin Time 12.7 Seconds (9.4-12.1)
[2017-07-30 13:55] LABS: Troponin I < 0.03 ng/mL (< 0.04)
[2017-07-30 13:56] LABS: Activated Partial Thrombo Time 21.4 Seconds (26.0-36.0)
[2017-07-30 14:03] LABS: BUN/Creatinine Ratio 24 (6-26); Blood Urea Nitrogen 10 mg/dL (8-23); Calcium 9.5 mg/dL (8.6-10.3); Carbon Dioxide 23 mEq/L (23-29); Chloride 101 mEq/L (98-107); Glucose 118 mg/dL (70-105); Osmolality,Calculated 284 (280-300); Potassium 3.7 mEq/L (3.5-5.1); Sodium 137 mEq/L (136-145); eGFR For African Americans > 60 (> 60); eGFR For Non-African Americans > 60 (> 60)
[2017-07-30 14:04] LABS: Basophils % 0.2 %; Eosinophils % 0.3 %; Hematocrit 36.8 % (35.3-44.9); Hemoglobin 11.8 g/dL (11.5-15.4); Immature Granulocytes % 0.7 % (0-4); Lymphocytes # 1.5 K/mcL (0.6-4.6); Lymphocytes % 10.7 %; Mean Corpuscular HGB Conc 32.1 g/dL (31.6-35.5); Mean Corpuscular Volume 87.2 fL (83.0-100.0); Mean Platelet Volume 9.5 fL (9.4-12.4); Monocytes % 6.6 %; Neutrophils # 11.7 K/mcL (1.6-8.9); Platelet Count 371 K/mcL (140-400); Red Blood Count 4.22 M/mcL (3.82-4.97); Red Cell Distribution Width 14.6 % (11.5-14.5); Segmented Neutrophils % 81.5 %
[2017-07-30 14:15] LABS: Albumin 3.7 g/dL (3.5-5.7); Albumin/Globulin Ratio 1.2 (1.1-2.2); Bilirubin,Direct 0.1 mg/dL (0.0-0.2); Bilirubin,Indirect 0.4 mg/dL (0.0-1.2); Bilirubin,Total 0.5 mg/dL (0.3-1.0); Globulin 3.1 g/dL (2.4-3.5); Total Protein 6.8 g/dL (6.4-8.9)
[2017-07-30] MEDS ORDERED: 0.9 % Sodium Chloride 500 ML IVC ONE (14:32)
--- NOTE | 2017-07-30 14:37 | Emergency Department Note ---
Disposition Clinical Impression: Weakness Disposition: Admitted As Inpatient Condition: Fair Referrals: Ron Ward MD [Primary Care Provider] - Forms: ED Satisfaction Letter Weakness HPI - General Chief complaint: ED Weakness Stated complaint: "real weak", "low bp" Time Seen by Provider: 07/30/17 12:51 Source: patient Mode of arrival: ambulatory Limitations: no limitations Nursing Notes Reviewed: Yes Vital Signs Reviewed: Yes - History of Present Illness Pain Scale: 3 - Related Data Home Medications Medication Instructions Recorded Confirmed Trazodone HCl 200 mg PO HS 02/15/16 07/17/17 Albuterol Sulfate [Albuterol 2 puff IH Q6H PRN 10/14/16 07/17/17 Inhaler] Budesonide/Formoterol 160/4.5 2 puff IH BIDR 10/14/16 07/17/17 [Symbicort 160/4.5] Oxygen 2 l NS AD 10/14/16 07/17/17 Metoprolol [Lopressor] 12.5 mg PO BID PRN MDD SEE NOTE 06/13/17 07/17/17 Potassium Chloride [K-Tab ER] 20 meq PO DAILY 06/13/17 07/17/17 Melatonin [Melatin] 3 mg PO HS 06/21/17 07/17/17 Previous Rx's Medication Instructions Recorded Omeprazole [PriLOSEC] 20 mg PO DAILY@0630 #30 capsule. 06/03/17 Albuterol Neb [Proventil Neb] 2.5 mg IH Q2H PRN #120 inhsol 06/08/17 Buspirone HCl [Buspar] 15 mg PO BID #60 tablet 06/08/17 DULoxetine [Cymbalta] 30 mg PO HS #30 capsule. 06/08/17 Calcium Carbonate [Tums] 1,000 mg PO TID tab.chew 06/16/17 Cholecalciferol (D-3) [Vitamin D] 1,000 unit PO DAILY #30 tablet 06/28/17 Loratadine [Claritin] 10 mg PO DAILY 7 Days #7 tablet 07/01/17 clonazePAM [Klonopin] 0.5 mg PO Q4H PRN 7 Days #28 07/01/17 tablet MDD 6 OxyCODONE Immed Rel [Roxicodone 10 10 mg PO TID PRN 30 Days #90 tab 07/12/17 MG] Ipratropium/Albuterol Neb [Duoneb] 3 ml IH Q4HR #1 vial.neb 07/15/17 Promethazine [Phenergan] 12.5 mg PO Q8HR #24 tablet 07/15/17 Albuterol Neb [AccuNeb] 1.25 mg IH Q6H #120 inhsol 07/21/17 PredniSONE [Deltasone] 40 mg PO DAILY 12 Days #12 tablet 07/21/17 Roflumilast [Daliresp] 250 mcg PO DAILY #30 tablet 07/21/17 Tiotropium [place] [Spiriva 4 gm IH DAILY 30 Days #120 07/21/17 Respimat] mist.inhal GuaiFENesin ER [Mucinex] 600 mg PO BID tbbp.12hr 07/24/17 Levofloxacin [Levaquin] 750 mg PO DAILY #3 tablet 07/24/17 Polyethylene Glycol 3350 [MiraLAX] 17 gm PO DAILY powd.pack 07/24/17 Allergies Allergy/AdvReac Type Severity Reaction Status Date / Time No Known Allergies Allergy Verified 07/30/17 12:41 Past Medical History - Past Medical History Medical history: Reports: cancer, COPD, hypertension Surgical history: Reports: hysterectomy Psychiatric history: Reports: anxiety, depression HORSE BREAKER history: Reports: no HORSE BREAKER history - Social History Smoking Status: Former smoker Smokeless Tobacco Status: No Alcohol use: Reports: none Drug use: Reports: none Physical Exam - General Limitations: no limitations General appearance: alert Course Vital Signs Temperature 97.8 F 07/30/17 12:42 Pulse Rate 125 07/30/17 12:42 Respiratory Rate 24 07/30/17 12:42 Blood Pressure 117/68 07/30/17 12:42 O2 Sat by Pulse Oximetry 93 07/30/17 12:42 Temperature 97.8 F 07/30/17 12:42 Pulse Rate 115 07/30/17 14:09 Respiratory Rate 33 07/30/17 14:09 Blood Pressure 124/84 07/30/17 14:09 O2 Sat by Pulse Oximetry 98 07/30/17 14:09 Oxygen Delivery Oxygen Delivery Nasal Cannula Weakness - Lab Data Result diagrams: 07/30/17 13:44 07/30/17 13:20 Lab Results 07/30/17 07/30/17 07/30/17 Range/Units 13:20 13:20 13:20 WBC (4.3-11.1) K/mcL RBC (3.82-4.97) M/mcL Hgb (11.5-15.4) g/dL Hct (35.3-44.9) % MCV (83.0-100.0) fL MCH (28.0-33.3) pg MCHC (31.6-35.5) g/dL RDW (11.5-14.5) % Plt Count (140-400) K/mcL MPV (9.4-12.4) fL Immature Gran % (0-4) % Seg Neutrophils % % Lymphocytes % % Monocytes % % Eosinophils % % Basophils % % Neutrophils # (1.6-8.9) K/mcL Lymphocytes # (0.6-4.6) K/mcL Monocytes # (0.0-1.3) K/mcL Eosinophils # (0.0-0.6) K/mcL Basophils # (0.0-0.2) K/mcL PT (9.4-12.1) Seconds INR APTT (26.0-36.0) Seconds Sodium 137 (136-145) mEq/L Potassium 3.7 (3.5-5.1) mEq/L Chloride 101 (98-107) mEq/L Carbon Dioxide 23 (23-29) mEq/L BUN 10 (8-23) mg/dL Creatinine 0.42 L (0.60-1.20) mg/dL Est GFR ( Amer) > 60 (> 60) Est GFR (Non-Af Amer) > 60 (> 60) BUN/Creatinine Ratio 24 (6-26) Glucose 118 H (70-105) mg/dL Calculated Osmolality 284 (280-300) Lactic Acid 1.6 (0.5-2.2) mmol/L Calcium 9.5 (8.6-10.3) mg/dL Total Bilirubin 0.5 (0.3-1.0) mg/dL Direct Bilirubin 0.1 (0.0-0.2) mg/dL Indirect Bilirubin 0.4 (0.0-1.2) mg/dL AST 28 (13-39) Units/L ALT 12 (7-52) Units/L Alkaline Phosphatase 108 H (34-104) Units/L Creatine Kinase 161 (30-223) Units/L Troponin I < 0.03 (< 0.04) ng/mL Serum Total Protein 6.8 (6.4-8.9) g/dL Albumin 3.7 (3.5-5.7) g/dL Globulin 3.1 (2.4-3.5) g/dL Albumin/Globulin Ratio 1.2 (1.1-2.2) 07/30/17 07/30/17 Range/Units 13:20 13:44 WBC 14.4 H (4.3-11.1) K/mcL RBC 4.22 (3.82-4.97) M/mcL Hgb 11.8 (11.5-15.4) g/dL Hct 36.8 (35.3-44.9) % MCV 87.2 (83.0-100.0) fL MCH 28.0 (28.0-33.3) pg MCHC 32.1 (31.6-35.5) g/dL RDW 14.6 H (11.5-14.5) % Plt Count 371 (140-400) K/mcL MPV 9.5 (9.4-12.4) fL Immature Gran % 0.7 (0-4) % Seg Neutrophils % 81.5 % Lymphocytes % 10.7 % Monocytes % 6.6 % Eosinophils % 0.3 % Basophils % 0.2 % Neutrophils # 11.7 H (1.6-8.9) K/mcL Lymphocytes # 1.5 (0.6-4.6) K/mcL Monocytes # 1.0 (0.0-1.3) K/mcL Eosinophils # 0.0 (0.0-0.6) K/mcL Basophils # 0.0 (0.0-0.2) K/mcL PT 12.7 H (9.4-12.1) Seconds INR 1.2 APTT 21.4 L (26.0-36.0) Seconds Sodium (136-145) mEq/L Potassium (3.5-5.1) mEq/L Chloride (98-107) mEq/L Carbon Dioxide (23-29) mEq/L BUN (8-23) mg/dL Creatinine (0.60-1.20) mg/dL Est GFR ( Amer) (> 60) Est GFR (Non-Af Amer) (> 60) BUN/Creatinine Ratio (6-26) Glucose (70-105) mg/dL Calculated Osmolality (280-300) Lactic Acid (0.5-2.2) mmol/L Calcium (8.6-10.3) mg/dL Total Bilirubin (0.3-1.0) mg/dL Direct Bilirubin (0.0-0.2) mg/dL Indirect Bilirubin (0.0-1.2) mg/dL AST (13-39) Units/L ALT (7-52) Units/L Alkaline Phosphatase (34-104) Units/L Creatine Kinase (30-223) Units/L Troponin I (< 0.04) ng/mL Serum Total Protein (6.4-8.9) g/dL Albumin (3.5-5.7) g/dL Globulin (2.4-3.5) g/dL Albumin/Globulin Ratio (1.1-2.2) Attestation Statement - Attestation Attestation: I, Ayan Linares, examined this patient and my medical decision-making was reviewed with the CASH MANAGER/PA/Advanced Practice Nurse/Resident Physician. I agree with the documented findings, disposition and treatment plan as described except to the extent set forth below. 61-year-old female presents emergency Department with concerns of progressive weakness over the past 2-3 days. Patient states she was recently admitted to the hospital for treatment of COPD and pneumonia. Patient denies recent fever, vomiting, diarrhea, changes in her medications. She does state that she was fluid restricted after recent admission to hospital secondary to hyponatremia. Laboratory evaluation is largely within normal limits in the emergency department. Chest x-ray that showed acute infiltrate. Patient has difficulty with shortness of breath with exertion. She states that this feels different than her previous COPD exacerbations. Denies chest pain or diaphoresis. Patient will likely be admitted to the hospital for further care and evaluation of her difficulty breathing, weakness and fatigue.
[2017-07-30 15:01] LABS: Bilirubin,Urine Moderate (Negative); Blood,Urine Negative (Negative); Clarity,Urine Clear (Clear); Color,Urine Dark Yellow (Yellow); Glucose,Urine (UA) Normal (Normal); Ketones,Urine 15 mg/dL (Negative); Leukocyte Esterase,Urine Negative (Negative); Nitrite,Urine Negative (Negative); Protein,Urine 100 mg/dL (Neg-Trace); Specific Gravity,Urine 1.028 (1.010-1.025); Urobilinogen,Urine Normal (Normal)
[2017-07-30 15:02] LABS: Bacteria,Urine None Seen per hpf (None-Few); Hyaline Casts,Urine None Seen per lpf (None-Few); RBC,Urine 0-3 per hpf (0-3); Squamous Epithelial Cell,Urine Moderate per lpf (None-Few); WBC,Urine 0-3 per hpf (0-3)
[2017-07-30] MEDS ORDERED: clonazePAM 0.5 MG TABLET PO PRN (17:06)
[2017-07-30] MEDS ORDERED: *HR* OxyCODONE Immed Rel 5 MG TABLET PO PRN (17:06)
[2017-07-30] MEDS ORDERED: Naloxone 0.4 MG/ML INJ IVP PRN (17:08)
--- NOTE | 2017-07-30 17:17 | Internal Med History&Physical ---
Date of Encounter: 07/30/17 Time of Encounter: 17:13 Internal Medicine - H&P: HPI Chief complaint: weakness History of present illness: Ms. Keenan is a 61 year old female with a history of COPD on 2 L nasal cannula at home, metastatic small cell lung cancer on immunotherapy who presents with acute onset of generalized weakness at 11 AM today. Admitted for observation. Of note she was recently discharged on July approximately a week ago for pneumonia and hyponatremia. She was sent home on steroid taper at home and receive antibiotics with improvement of symptoms since discharge per patient and . She has been fine until this morning at 11 AM when she developed generalized weakness all over upper extremity and lower extremity. She had to be assisted when ambulating and was unable to hold her head up. She had to be helped to the car. On review patient admits to poor appetite with decreased by mouth intake. She is on immunotherapy at current and last received treatment approximately a week ago. On interview, her weakness has improved with IV fluids. She wishes to go home soon On infection screen, she denies any fever or chills or cough or sputum production. XR/XR chest 1V portable IMPRESSION: 1. Mild perihilar vascular congestion without overt failure. 2. Stable pleural-based nodular opacity in the periphery of the left mid lung zone measuring 23 x 11 mm. Past Med Surg Social Fam HX - Past Medical History Medical history: cancer, COPD, hypertension Additional medical history: lung cancer Psychiatric history: anxiety, depression - Past Surgical History Surgical History: hysterectomy - Social History Smoking Status: Former smoker Smokeless Tobacco Status: No Alcohol use: none Drug use: none - Family History Sister Adopted: No Family Member Ethnicity: Non- Living Status: Still Living Hx Family Cardiac Disorders: Yes (HTN) Hx Family Respiratory Disorders: No Hx Family Cancer: Yes (Lymphoma) Hx Family GI Disorders: No Hx Family Endocrine Disorder: No Hx Family Neuromuscular Disorders: No Hx Family Neurologic Disorders: No Hx Family HEENT Disorders: No Hx Family Autoimmune Disorders: No Mother Family Member Ethnicity: Non- Living Status: Hx Family Cardiac Disorders: Yes (hypertension,) Hx Family Respiratory Disorders: Yes (COPD) Hx Family Cancer: No Hx Family GI Disorders: No Hx Family Endocrine Disorder: No Hx Family Neuromuscular Disorders: No Hx Family Neurologic Disorders: Yes (Alzheimers) Hx Family HEENT Disorders: No Father Adopted: No Family Member Ethnicity: Non- Living Status: Hx Family Cardiac Disorders: Yes Hx Family Respiratory Disorders: Yes (mother copd) Hx Family Cancer: No Hx Family GI Disorders: No Hx Family Endocrine Disorder: No Hx Family Neuromuscular Disorders: No Hx Family Neurologic Disorders: No Hx Family HEENT Disorders: No Hx Family Autoimmune Disorders: No Internal Medicine - H&P: Meds Trazodone HCl 200 mg PO HS 02/15/16 [History] Albuterol Sulfate [Albuterol Inhaler] 2 puff IH Q6H PRN 10/14/16 [History] Budesonide/Formoterol 160/4.5 [Symbicort 160/4.5] 2 puff IH BIDR 10/14/16 [ History] Oxygen 2 l NS AD 10/14/16 [History] Omeprazole [PriLOSEC] 20 mg PO DAILY@0630 #30 capsule. 06/03/17 [Rx] Albuterol Neb [Proventil Neb] 2.5 mg IH Q2H PRN #120 inhsol 06/08/17 [Rx] Buspirone HCl [Buspar] 15 mg PO BID #60 tablet 06/08/17 [Rx] DULoxetine [Cymbalta] 30 mg PO HS #30 capsule. 06/08/17 [Rx] Metoprolol [Lopressor] 12.5 mg PO BID PRN MDD SEE NOTE 06/13/17 [History] Potassium Chloride [K-Tab ER] 20 meq PO DAILY 06/13/17 [History] Calcium Carbonate [Tums] 1,000 mg PO TID tab.chew 06/16/17 [Rx] Melatonin [Melatin] 3 mg PO HS 06/21/17 [History] Cholecalciferol (D-3) [Vitamin D] 1,000 unit PO DAILY #30 tablet 06/28/17 [Rx] Loratadine [Claritin] 10 mg PO DAILY 7 Days #7 tablet 07/01/17 [Rx] clonazePAM [Klonopin] 0.5 mg PO Q4H PRN 7 Days #28 tablet MDD 6 07/01/17 [Rx] OxyCODONE Immed Rel [Roxicodone 10 MG] 10 mg PO TID PRN 30 Days #90 tab [Rx] Ipratropium/Albuterol Neb [Duoneb] 3 ml IH Q4HR #1 vial.neb 07/15/17 [Rx] Promethazine [Phenergan] 12.5 mg PO Q8HR #24 tablet 07/15/17 [Rx] PredniSONE [Deltasone] 40 mg PO DAILY 12 Days #12 tablet 07/21/17 [Rx] Roflumilast [Daliresp] 250 mcg PO DAILY #30 tablet 07/21/17 [Rx] Tiotropium [place] [Spiriva Respimat] 4 gm IH DAILY 30 Days #120 mist.inhal 05/05 [Rx] GuaiFENesin ER [Mucinex] 600 mg PO BID tbbp.12hr 07/24/17 [Rx] Polyethylene Glycol 3350 [MiraLAX] 17 gm PO DAILY powd.pack 07/24/17 [Rx] 3 Allergy/AdvReac Type Severity Reaction Status Date / Time No Known Allergies Allergy Verified 07/30/17 15:31 All Systems PM: A 10-system review of systems was performed and is negative for pertinent findings except as documented above in the HPI. Review of systems: ROS 14 point review of systems reviewed as best as possible given presentation. Pertinent positive or negative as per HPI or otherwise reviewed as negative - Constitutional Vitals: Temp Pulse Resp BP Pulse Ox 97.8 F 113 24 143/86 96 07/30/17 12:42 07/30/17 16:12 07/30/17 16:12 07/30/17 16:12 07/30/17 16:12 Exam: General - AAO x 3 Psych - Appropriate affect/speech. No agitation Eyes - CAIT. Eye lids intact. No scleral icterus Neuro - No gross peripheral or central neuro deficits on inspection Heart - Sinus. RRR. S1 and S2 present. No added HS/murmurs appreciated. No elevated JVD appreciated. Lung - Adequate air entry b/l, No crackles/wheezes appreciated GI - Soft, non-tender. No hepatosplenomegaly/ascites. BS+ - No CVA/suprapubic tenderness or palpable bladder distension Skin - Intact. No rash/petechiae/ecchymosis. Warm extremities MSK - Joints with normal ROM. No joint swellings Internal Med - H&P Results - Labs CBC & Chem 7: 07/30/17 13:44 07/30/17 13:20 - Assessment and plan (1) Weakness Current Visit: Yes Status: Acute Assessment and plan: Transient weakness but had improved on interview Discussed observation in Hospital Blood cultures surveillance Send TSH screen IV fluids Ambulate in the morning (2) Sinus tachycardia Current Visit: No Status: Acute Assessment and plan: Uncertain etiology appears to have history of sinus tachycardia from prior Workup above (3) COPD (chronic obstructive pulmonary disease) Current Visit: No Status: Chronic Assessment and plan: Chronic 2 L nasal cannula Qualifiers: COPD type: unspecified COPD Qualified Code(s): J44.9 - Chronic obstructive pulmonary disease, unspecified (4) Cancer associated pain Current Visit: No Status: Chronic Assessment and plan: Continue pain medicines as needed (5) Metastatic lung cancer (metastasis from lung to other site) Current Visit: No Status: Chronic Assessment and plan: Undergoing therapy with oncologist Qualifiers: Laterality: unspecified laterality Qualified Code(s): C34.90 - Malignant neoplasm of unspecified part of unspecified bronchus or lung (6) SIADH (syndrome of inappropriate ADH production) Current Visit: No Status: Chronic Assessment and plan: Was recently admitted with hyponatremia a week ago. Sodium appears improved with vaptan therapy - Time Spent With Patient Total time spent is greater than 50% in coordination of care (as documented) at patient's floor/unit and/or counseling patient:
[2017-07-30] MEDS ORDERED: Ringers Solution, Lactated 1,000 ML IVC SCH (17:30)
[2017-07-30] MEDS: Ipratropium/Albuterol Neb 3 ML IH ONE ×2 (18:00→19:32)
[2017-07-30] MEDS: Budesonide/Formoterol 160/4.5 MDI IH SCH (19:46)
[2017-07-30] MEDS: Ipratropium/Albuterol Neb 3 ML IH PRN ×2 (19:46→23:21)
[2017-07-30] MEDS ORDERED: Melatonin 3 MG TABLET PO SCH (21:00)
[2017-07-30] MEDS ORDERED: traZODone 50 MG TABLET PO SCH (21:00)
[2017-07-31] MEDS: Ipratropium/Albuterol Neb 3 ML IH PRN ×4 (03:41→15:02)
[2017-07-31 04:51] LABS: Basophils % 0.2 %; Eosinophils % 0.3 %; Hematocrit 30.8 % (35.3-44.9); Immature Granulocytes % 0.7 % (0-4); Lymphocytes # 1.2 K/mcL (0.6-4.6); Lymphocytes % 13.4 %; Mean Corpuscular HGB Conc 32.1 g/dL (31.6-35.5); Mean Corpuscular Volume 87.3 fL (83.0-100.0); Mean Platelet Volume 9.7 fL (9.4-12.4); Monocytes # 0.7 K/mcL (0.0-1.3); Monocytes % 7.4 %; Neutrophils # 7.2 K/mcL (1.6-8.9); Platelet Count 300 K/mcL (140-400); Red Blood Count 3.53 M/mcL (3.82-4.97); Red Cell Distribution Width 14.7 % (11.5-14.5)
[2017-07-31 04:52] LABS: Hemoglobin 9.9 g/dL (11.5-15.4)
[2017-07-31 04:58] LABS: Alanine Aminotransferase 9 Units/L (7-52); Albumin 2.9 g/dL (3.5-5.7); Albumin/Globulin Ratio 1.2 (1.1-2.2); Alkaline Phosphatase 88 Units/L (34-104); Aspartate Amino Transferase 24 Units/L (13-39); BUN/Creatinine Ratio 18 (6-26); Bilirubin,Total 0.5 mg/dL (0.3-1.0); Blood Urea Nitrogen 6 mg/dL (8-23); Calcium 8.9 mg/dL (8.6-10.3); Carbon Dioxide 23 mEq/L (23-29); Chloride 104 mEq/L (98-107); Globulin 2.4 g/dL (2.4-3.5); Glucose 100 mg/dL (70-105); Magnesium 1.5 mg/dL (1.6-2.6); Osmolality,Calculated 280 (280-300); Potassium 2.9 mEq/L (3.5-5.1); Sodium 136 mEq/L (136-145); Total Protein 5.3 g/dL (6.4-8.9); eGFR For African Americans > 60 (> 60); eGFR For Non-African Americans > 60 (> 60)
[2017-07-31] MEDS ORDERED: *HR* Enoxaparin 40 MG/0.4 ML SYRINGE SQ SCH (06:00)
[2017-07-31] MEDS: Budesonide/Formoterol 160/4.5 MDI IH SCH (07:30)
[2017-07-31] MEDS ORDERED: Loratadine 10 MG TABLET PO SCH (09:00)
[2017-07-31] MEDS ORDERED: (Tiotropium Bromide [Spiriva Respimat] 4 GM) IH SCH (09:00)
[2017-07-31] MEDS ORDERED: Cholecalciferol (D-3) 1,000 UNIT TABLET PO SCH (09:00)
[2017-07-31] MEDS ORDERED: (Roflumilast [Daliresp] 250 MCG) PO SCH (09:00)
[2017-07-31 15:00] VITALS: BP 146/87
--- NOTE | 2017-07-31 15:36 | Internal Med Progress Note ---
Date of Encounter: 07/31/17 - Assessment and plan (1) COPD (chronic obstructive pulmonary disease) Current Visit: No Status: Chronic Assessment and plan: Chronic 2 L nasal cannula Qualifiers: COPD type: unspecified COPD Qualified Code(s): J44.9 - Chronic obstructive pulmonary disease, unspecified (2) Sinus tachycardia Current Visit: No Status: Acute Assessment and plan: Uncertain etiology appears to have history of sinus tachycardia from prior Workup above (3) Weakness Current Visit: Yes Status: Acute Assessment and plan: Transient weakness but had improved on interview Discussed observation in Hospital Blood cultures surveillance Send TSH screen IV fluids Ambulate in the morning (4) Cancer associated pain Current Visit: No Status: Chronic Assessment and plan: Continue pain medicines as needed (5) Metastatic lung cancer (metastasis from lung to other site) Current Visit: No Status: Chronic Assessment and plan: Undergoing therapy with oncologist Qualifiers: Laterality: unspecified laterality Qualified Code(s): C34.90 - Malignant neoplasm of unspecified part of unspecified bronchus or lung (6) SIADH (syndrome of inappropriate ADH production) Current Visit: No Status: Chronic Assessment and plan: Was recently admitted with hyponatremia a week ago. Sodium appears improved with vaptan therapy - Time Spent With Patient Total time spent is greater than 50% in coordination of care (as documented) at patient's floor/unit and/or counseling patient: - Constitutional Vitals: Temp Pulse Resp BP Pulse Ox 98.2 F 114 18 146/87 98 07/31/17 14:58 07/31/17 14:58 07/31/17 14:58 07/31/17 14:58 07/31/17 14:58 Internal Medicine: Result - Labs CBC & Chem 7: 07/31/17 04:28 07/31/17 04:28 Labs: Short CBC 07/31/17 Range/Units 04:28 WBC 9.2 (4.3-11.1) K/mcL Hgb 9.9 L D (11.5-15.4) g/dL Hct 30.8 L (35.3-44.9) % Plt Count 300 (140-400) K/mcL Neutrophils # 7.2 (1.6-8.9) K/mcL BMP 07/31/17 04:28 Sodium 136 Potassium 2.9 L Chloride 104 Carbon Dioxide 23 BUN 6 L Creatinine 0.34 L Glucose 100 Calcium 8.9 Liver Function 07/31/17 Range/Units 04:28 Total Bilirubin 0.5 (0.3-1.0) mg/dL AST 24 (13-39) Units/L ALT 9 (7-52) Units/L Alkaline Phosphatase 88 (34-104) Units/L Albumin 2.9 L (3.5-5.7) g/dL - ABG Interpretation ABG results: PT/INR, D-dimer PT 12.7 Seconds (9.4-12.1) H 07/30/17 13:20 Consult Discharge Plan - Plan Referrals: Ron Ward MD [Primary Care Provider] -
--- NOTE | 2017-07-31 15:41 | Discharge Summary ---
- NOTES TO OUTPATIENT PROVIDER Notes to Outpatient Provider: Recommend routine hospital follow-up appointment Orders not resulted at time of discharge: Pending orders 07/30/17 13:20 Culture,Blood [BC] Routine 07/30/17 17:44 Culture,Blood,Additional [BC] Routine 07/31/17 18:00 Potassium Timed Date of Encounter: 07/31/17 Time of Encounter: 15:37 - Discharge Diagnosis (1) Weakness Priority: Primary Status: Acute Assessment and Plan: presented with overt weakness. Likely secondary to dehydration. Now resolved. Declined PT/OT consult. Return to baseline at time of discharge. (2) Hypokalemia Priority: Primary Status: Acute Assessment and Plan: K 2.9. Replaced and improved to 4. Recommend repeat CMP with PCP within one week (3) COPD (chronic obstructive pulmonary disease) Priority: Primary Status: Chronic Assessment and Plan: Chronic 2 L nasal cannula Qualifiers: COPD type: unspecified COPD Qualified Code(s): J44.9 - Chronic obstructive pulmonary disease, unspecified (4) Sinus tachycardia Priority: Primary Status: Acute Assessment and Plan: per [facility] review chronic tachycardia. 07/17/2017 chest CTA negative for pulmonary embolism. Suspect secondary to steroid and bronchodilator use. Stable, no hypotension. (5) Cancer associated pain Priority: Secondary Status: Chronic Assessment and Plan: cont home medication regimen. (6) Metastatic lung cancer (metastasis from lung to other site) Priority: Secondary Status: Chronic Assessment and Plan: per hx. Follow-up with oncology as previously planned. Qualifiers: Laterality: unspecified laterality Qualified Code(s): C34.90 - Malignant neoplasm of unspecified part of unspecified bronchus or lung (7) SIADH (syndrome of inappropriate ADH production) Priority: Secondary Status: Chronic Assessment and Plan: Was recently admitted with hyponatremia a week ago. Na 136 Hospital course: See assessment and plan for Hospital course Discharge discussed with: patient (Seen and examoned at bedside. Says known to me from previous admission. Says she feels well, back to baseline. Requesting to discharge home. She was agreeable to stay for potassium replacement and monitoring. Has a cough and is short of breath but says she is at baseline. No chest pain.) - Time Spent with Patient Total time spent providing and/or coordinating discharge services: - Discharge Medications Home Medications: Trazodone HCl 200 mg PO HS 02/15/16 [History] Albuterol Sulfate [Albuterol Inhaler] 2 puff IH Q6H PRN 10/14/16 [History] Budesonide/Formoterol 160/4.5 [Symbicort 160/4.5] 2 puff IH BIDR 10/14/16 [ History] Oxygen 2 l NS AD 10/14/16 [History] Omeprazole [PriLOSEC] 20 mg PO DAILY@0630 #30 capsule. 06/03/17 [Rx] Albuterol Neb [Proventil Neb] 2.5 mg IH Q2H PRN #120 inhsol 06/08/17 [Rx] Buspirone HCl [Buspar] 15 mg PO BID #60 tablet 06/08/17 [Rx] DULoxetine [Cymbalta] 30 mg PO HS #30 capsule. 06/08/17 [Rx] Metoprolol [Lopressor] 12.5 mg PO BID PRN MDD SEE NOTE 06/13/17 [History] Potassium Chloride [K-Tab ER] 20 meq PO DAILY 06/13/17 [History] Calcium Carbonate [Tums] 1,000 mg PO TID tab.chew 06/16/17 [Rx] Melatonin [Melatin] 3 mg PO HS 06/21/17 [History] Cholecalciferol (D-3) [Vitamin D] 1,000 unit PO DAILY #30 tablet 06/28/17 [Rx] Loratadine [Claritin] 10 mg PO DAILY 7 Days #7 tablet 07/01/17 [Rx] clonazePAM [Klonopin] 0.5 mg PO Q4H PRN 7 Days #28 tablet MDD 6 07/01/17 [Rx] OxyCODONE Immed Rel [Roxicodone 10 MG] 10 mg PO TID PRN 30 Days #90 tab [Rx] Ipratropium/Albuterol Neb [Duoneb] 3 ml IH Q4HR #1 vial.neb 07/15/17 [Rx] Promethazine [Phenergan] 12.5 mg PO Q8HR #24 tablet 07/15/17 [Rx] PredniSONE [Deltasone] 40 mg PO DAILY 12 Days #12 tablet 07/21/17 [Rx] Roflumilast [Daliresp] 250 mcg PO DAILY #30 tablet 07/21/17 [Rx] Tiotropium [place] [Spiriva Respimat] 4 gm IH DAILY 30 Days #120 mist.inhal 05/05 [Rx] GuaiFENesin ER [Mucinex] 600 mg PO BID tbbp.12hr 07/24/17 [Rx] Polyethylene Glycol 3350 [MiraLAX] 17 gm PO DAILY powd.pack 07/24/17 [Rx] Allergies/Adverse Reactions: 3 Allergy/AdvReac Type Severity Reaction Status Date / Time No Known Allergies Allergy Verified 07/30/17 15:31 Date of admission: 07/30/17 17:02 Primary care physician: Ron Ward MD Discharging clinician: Heaven Perkins Anticipated date of discharge: 07/31/17 - Constitutional Vitals: Temp Pulse Resp BP Pulse Ox 98.2 F 114 18 146/87 98 07/31/17 14:58 07/31/17 14:58 07/31/17 14:58 07/31/17 14:58 07/31/17 14:58 General appearance: Present: cachectic, A&O X 3, pleasant, no acute distress - Head Head exam: Present: atraumatic, normocephalic - Eye Eye exam: Present: PERRL, conjuntiva pink, sclera anicteric Pupils: Present: PERRL - Neck Neck exam general surgery: Present: supple, trachea midline. Absent: lymphadenopathy - Respiratory Respiratory exam: Present: CTAB, rhonchi. Absent: accessory muscle use, rales, wheezes - Cardiovascular Cardiovascular exam: Present: RRR, +S1, +S2. Absent: diastolic murmur, gallop, rubs, systolic murmur - GI/Abdominal GI/Abdominal exam: Present: normal bowel sounds, soft, no peritoneal signs. Absent: distended, tenderness - Extremities Exam Extremities exam: Present: warm, radial pulses palpable and symmetrical. Absent : calf tenderness, cyanotic, pedal edema - Neurological Exam Neurological exam: Present: CN II-XII intact, oriented X3, no focal deficits. Absent: pronater drift, facial droop, speech deficit - Skin Skin exam: Present: dry, intact - Patient Status Disposition: Home, Self-Care Condition: Fair Functional capacity at discharge: uses cane/walker Overall status at discharge: patient is back to baseline - Discharge Instructions Instructions: Dehydration (DC), Hypokalemia (DC), Weakness (GEN) Follow Up With: Ron Ward MD [Primary Care Provider] - - Diet and Activity Activity: increase activity as tolerated Diet: advance to your usual diet
--- NOTE | 2017-07-31 19:21 | Electrocardiograph Report ---
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
== END 2017-07-31 19:04 | disposition home or self-care (01) ==
LOC: 3BNU 12:23 → EMEROO 12:23 → 3BNU 17:55
PROVIDERS: ADMIT Family Medicine; ATTEND Family Medicine

== ENCOUNTER 2017-08-14 16:01 | Observation (INO) ==
[2017-08-14] MEDS ORDERED: Isovue-370 500 ML INFUS..BTL IV ONE (16:18)
[2017-08-14] MEDS ORDERED: 0.9 % Sodium Chloride 1,000 ML IVC ONE (16:19)
--- NOTE | 2017-08-14 16:32 | Emergency Department Note ---
Disposition Clinical Impression: Weakness, Hypokalemia, Dehydration, Bronchitis Lung cancer Qualifiers: Laterality: unspecified laterality Lung location: unspecified part of lung Qualified Code(s): C34.90 - Malignant neoplasm of unspecified part of unspecified bronchus or lung Disposition: Admitted As Inpatient Condition: Fair Referrals: Ron Ward MD [Primary Care Provider] - Time of Disposition: 18:42 General Adult HPI - General Stated complaint: NOHELIA, "confused" Time Seen by Provider: 08/14/17 16:05 Source: patient, family Mode of arrival: wheelchair Limitations: altered mental status, age Nursing Notes Reviewed: Yes Vital Signs Reviewed: Yes - History of Present Illness HPI Narrative: 61-year-old female with history of tobacco use, lung cancer oxygen dependent at present for evaluation of first of breath as well as confusion. Patient family also states she has been increasingly weak. Family at bedside states the patient has become intermittently confused since this morning. No focal neurologic deficits. Patient also has had a nonproductive cough. Patient denies any specific dyspnea or chest pain. Patient states that she "wants water ". Patient family states she does have a history of low sodium in the past and was told to not drink an excessive amount of water. Patient has home health assistance. Patient denies any abdominal pain, nausea or vomiting. Patient's family states that she is typically on 2 L nasal cannula. Patient also has not had any therapies related to her lung cancer given her weakness per family. Patient would not want any chest compressions or intubation. Family is in the process of talking with hospice however the patient is currently not on hospice. Pain Scale: 0 - Related Data Home Medications Medication Instructions Recorded Confirmed Trazodone HCl 200 mg PO HS 02/15/16 08/14/17 Albuterol Sulfate [Albuterol 2 puff IH Q6H PRN 10/14/16 08/14/17 Inhaler] Budesonide/Formoterol 160/4.5 2 puff IH BIDR 10/14/16 08/14/17 [Symbicort 160/4.5] Oxygen 2 l NS AD 10/14/16 08/14/17 Metoprolol [Lopressor] 12.5 mg PO BID PRN MDD SEE NOTE 06/13/17 08/14/17 Potassium Chloride [K-Tab ER] 20 meq PO DAILY 06/13/17 08/14/17 Melatonin [Melatin] 3 mg PO HS 06/21/17 08/14/17 Sucralfate [Carafate] 1 gm PO HS 08/14/17 08/14/17 Previous Rx's Medication Instructions Recorded Omeprazole [PriLOSEC] 20 mg PO DAILY@0630 #30 capsule. 06/03/17 Albuterol Neb [Proventil Neb] 2.5 mg IH Q2H PRN #120 inhsol 06/08/17 Buspirone HCl [Buspar] 15 mg PO BID #60 tablet 06/08/17 DULoxetine [Cymbalta] 30 mg PO HS #30 capsule. 06/08/17 Calcium Carbonate [Tums] 1,000 mg PO TID tab.chew 06/16/17 Cholecalciferol (D-3) [Vitamin D] 1,000 unit PO DAILY #30 tablet 06/28/17 Loratadine [Claritin] 10 mg PO DAILY 7 Days #7 tablet 07/01/17 clonazePAM [Klonopin] 0.5 mg PO Q4H PRN 7 Days #28 07/01/17 tablet MDD 6 OxyCODONE Immed Rel [Roxicodone 10 10 mg PO TID PRN 30 Days #90 tab 07/12/17 MG] Ipratropium/Albuterol Neb [Duoneb] 3 ml IH Q4HR #1 vial.neb 07/15/17 Promethazine [Phenergan] 12.5 mg PO Q8HR #24 tablet 07/15/17 PredniSONE [Deltasone] 40 mg PO DAILY 12 Days #12 tablet 07/21/17 Roflumilast [Daliresp] 250 mcg PO DAILY #30 tablet 07/21/17 Tiotropium [place] [Spiriva 4 gm IH DAILY 30 Days #120 07/21/17 Respimat] mist.inhal GuaiFENesin ER [Mucinex] 600 mg PO BID tbbp.12hr 07/24/17 Polyethylene Glycol 3350 [MiraLAX] 17 gm PO DAILY powd.pack 07/24/17 Megestrol Acetate [Megace] 800 mg PO DAILY #300 mls 08/07/17 Morphine Sulfate [Morphine Oral 2.5 ml PO Q8H PRN 30 Days #225 ml 08/07/17 Solution] Allergies Allergy/AdvReac Type Severity Reaction Status Date / Time No Known Allergies Allergy Verified 08/14/17 16:34 All systems ED: reviewed and negative except as stated. Constitutional: Denies: fever Cardiovascular: Denies: chest pain Respiratory: Reports: cough. Denies: dyspnea Gastrointestinal: Denies: abdominal pain, nausea, vomiting Past Medical History - Past Medical History Source: patient Medical history: Reports: cancer, COPD, hypertension Surgical history: Reports: hysterectomy Psychiatric history: Reports: anxiety, depression SKATESMAN history: Reports: no SKATESMAN history - Social History Smoking Status: Former smoker Smokeless Tobacco Status: No Alcohol use: Reports: none Drug use: Reports: none Physical Exam - General Limitations: no limitations General appearance: alert, in no apparent distress, cachectic (Chronically ill) - Head Head exam: atraumatic, normocephalic, normal inspection - Eye Eye exam: Present: normal appearance, PERRL, EOMI - ENT ENT exam: normal oropharynx, mucous membranes dry - Neck Neck exam: Present: normal inspection - Chest Chest inspection: Present: normal inspection, symmetric chest wall rise - Respiratory Respiratory exam: Present: prolonged expiratory phase, other (Scattered rhonchi with wheezes in the right upper lung) - Cardiovascular Cardiovascular exam: Present: normal rhythm, tachycardia - Abdominal Exam Abdominal exam: Present: soft, Non-Tender - Extremities Exam Extremities exam: Present: normal inspection - Expanded Lower Extremity Exam Neurovascular/Tendon exam: Present: normal capillary refill. Absent: pulse deficit - Neurological Exam Neurological exam: Present: alert, oriented X3, CN II-XII intact - Skin Skin exam: Present: warm, dry, intact, normal color Course Course Narrative: Patient does not have any focal neurologic deficits. Patient appears dehydrated. Concerns of hypo-or hypernatremia given the patient's history of lung cancer and hydration status. Patient will get basic electrolytes, lactate , CT of the chest given the patient's tachycardia AND lung cancer. Patient will also get IV fluids, urinalysis. Disposition will likely be admission as the patient is weak chronically ill. - Reevaluation(s) Reevaluation #1: Patient's resting comfortably. No acute distress. Awaiting CT imaging. Time: 17:45 Reevaluation #2: Awaiting CT results. Patient refuses to be straighted cathed for a UA. Time: 18:28 Reevaluation #3: Patient did provide a urine sample appears to be concentrated. Awaiting urinalysis results. Family at bedside states that the patient has decompensated. Patient appears to be alert and was only confused. There is no focal neurologic deficits. Awaiting CT results. Time: 18:38 Additional Reevaluation(s): Discussed the CT findings with the patient and family. Concerns of worsening Metastatic disease. Also noted to have bronchitis. Will treat with levaquin. Vital Signs Temperature 98.0 F 08/14/17 16:07 Pulse Rate 100 08/14/17 16:07 Respiratory Rate 22 08/14/17 16:07 Blood Pressure 124/73 08/14/17 16:07 O2 Sat by Pulse Oximetry 95 08/14/17 16:07 Temperature 98.0 F 08/14/17 16:07 Pulse Rate 122 08/14/17 18:45 Respiratory Rate 23 08/14/17 18:45 Blood Pressure 104/91 08/14/17 18:45 O2 Sat by Pulse Oximetry 95 08/14/17 18:45 Oxygen Delivery Oxygen Delivery Nasal Cannula Medical Decision Making - [facility] Narrative Medical decision making narrative: Patient presented for concerns of generalized weakness as well as confusion. Patient does have a history of lung cancer is not currently receiving any therapies related to lung cancer. Patient denied any dyspnea however that was initially on her chief complaint. Patient appears alert and intermittent pleasantly confused. Patient does not present with strokelike symptoms. Patient did not receive a head CT. Patient was tachycardic and appeared be hypovolemic. Patient was treated with IV fluids. Patient also had a CT scan of her chest given her history of lung cancer. Patient's family is concerned about that her decline. Patient's been generally weak at home. No notable falls. Given the patient's generalized weakness as well as history of lung cancer with poor support at home and abnormal vitals the patient will be admitted to the hospital service. Patient was noted have low potassium as well as low magnesium. Patient's potassium and magnesium were repleted. Patient was also noted have concentrated urine and concerns for UTI. At the time of this dictation UA results are not resulted. Patient CT scan results are not resulted as well. Patient will likely be signed out to the night provider. Patient CT scan results reviewed. Patient has worsening of metastatic disease. Patient also has persistent bronchitis. Patient will be treated with antibiotics given the severity of the patient's bronchitis. Family is considering hospice. - Lab Data Lab results reviewed: Yes I reviewed the patient's lab results. Result diagrams: 08/14/17 16:27 08/14/17 16:27 Lab Results 08/14/17 08/14/17 08/14/17 Range/Units 16:20 16:27 16:27 WBC 7.7 (4.3-11.1) K/mcL RBC 3.85 (3.82-4.97) M/mcL Hgb 10.7 L (11.5-15.4) g/dL Hct 33.8 L (35.3-44.9) % MCV 87.8 (83.0-100.0) fL MCH 27.8 L (28.0-33.3) pg MCHC 31.7 (31.6-35.5) g/dL RDW 15.5 H (11.5-14.5) % Plt Count 290 (140-400) K/mcL MPV 9.8 (9.4-12.4) fL Immature Gran % 0.8 (0-4) % Seg Neutrophils % 79.6 % Lymphocytes % 12.3 % Monocytes % 5.2 % Eosinophils % 2.0 % Basophils % 0.1 % Neutrophils # 6.1 (1.6-8.9) K/mcL Lymphocytes # 0.9 (0.6-4.6) K/mcL Monocytes # 0.4 (0.0-1.3) K/mcL Eosinophils # 0.2 (0.0-0.6) K/mcL Basophils # 0.0 (0.0-0.2) K/mcL VBG pH (7.32-7.42) pH Units VBG pCO2 (41-51) mmHg VBG pO2 (25-50) mmHg VBG HCO3 (21-27) mEq/L Sodium 140 (136-145) mEq/L Potassium 3.1 L (3.5-5.1) mEq/L Chloride 105 (98-107) mEq/L Carbon Dioxide 24 (23-29) mEq/L BUN 11 (8-23) mg/dL Creatinine 0.44 L (0.60-1.20) mg/dL Est GFR ( Amer) > 60 (> 60) Est GFR (Non-Af Amer) > 60 (> 60) BUN/Creatinine Ratio 25 (6-26) Glucose 157 H (70-105) mg/dL Calculated Osmolality 293 (280-300) Lactic Acid (0.5-2.2) mmol/L Calcium 9.3 (8.6-10.3) mg/dL Magnesium 1.2 L (1.6-2.6) mg/dL Troponin I < 0.03 (< 0.04) ng/mL B-Natriuretic Peptide 37 (Less than 100) pg/mL 08/14/17 08/14/17 Range/Units 16:47 16:57 WBC (4.3-11.1) K/mcL RBC (3.82-4.97) M/mcL Hgb (11.5-15.4) g/dL Hct (35.3-44.9) % MCV (83.0-100.0) fL MCH (28.0-33.3) pg MCHC (31.6-35.5) g/dL RDW (11.5-14.5) % Plt Count (140-400) K/mcL MPV (9.4-12.4) fL Immature Gran % (0-4) % Seg Neutrophils % % Lymphocytes % % Monocytes % % Eosinophils % % Basophils % % Neutrophils # (1.6-8.9) K/mcL Lymphocytes # (0.6-4.6) K/mcL Monocytes # (0.0-1.3) K/mcL Eosinophils # (0.0-0.6) K/mcL Basophils # (0.0-0.2) K/mcL VBG pH 7.51 H (7.32-7.42) pH Units VBG pCO2 30 L (41-51) mmHg VBG pO2 190 H (25-50) mmHg VBG HCO3 24 (21-27) mEq/L Sodium (136-145) mEq/L Potassium (3.5-5.1) mEq/L Chloride (98-107) mEq/L Carbon Dioxide (23-29) mEq/L BUN (8-23) mg/dL Creatinine (0.60-1.20) mg/dL Est GFR ( Amer) (> 60) Est GFR (Non-Af Amer) (> 60) BUN/Creatinine Ratio (6-26) Glucose (70-105) mg/dL Calculated Osmolality (280-300) Lactic Acid 2.0 (0.5-2.2) mmol/L Calcium (8.6-10.3) mg/dL Magnesium (1.6-2.6) mg/dL Troponin I (< 0.04) ng/mL B-Natriuretic Peptide (Less than 100) pg/mL - EKG Data EKG #1 EKG attestation: Yes I reviewed and interpreted this EKG. EKG shows normal: sinus rhythm Rate: tachycardia Rhythm: NSR Viola/QRS: left axis deviation P waves: [place] When compared to previous EKG there are: changes noted Interpretation: nonspecific ST-T wave changes S.B.AJason - S.B.AJason Situation: Demographics Background: Presenting Complaint Assessment: Vital Signs, Patient/Family Expectation Recommendation: Barrier(s) to disposition, Recommendation based on pending studies, treatments, or consults S.B.AJason Report Given to: Dr. Stan Issa Repor Time: 19:10
[2017-08-14 17:01] LABS: VBG HCO3 24 mEq/L (21-27); VBG PCO2 30 mmHg (41-51); VBG PH 7.51 pH Units (7.32-7.42); VBG PO2 190 mmHg (25-50)
[2017-08-14 17:05] LABS: Basophils % 0.1 %; Eosinophils # 0.2 K/mcL (0.0-0.6); Hematocrit 33.8 % (35.3-44.9); Hemoglobin 10.7 g/dL (11.5-15.4); Immature Granulocytes % 0.8 % (0-4); Lymphocytes # 0.9 K/mcL (0.6-4.6); Lymphocytes % 12.3 %; Mean Corpuscular HGB Conc 31.7 g/dL (31.6-35.5); Mean Corpuscular Hemoglobin 27.8 pg (28.0-33.3); Mean Corpuscular Volume 87.8 fL (83.0-100.0); Mean Platelet Volume 9.8 fL (9.4-12.4); Monocytes # 0.4 K/mcL (0.0-1.3); Monocytes % 5.2 %; Neutrophils # 6.1 K/mcL (1.6-8.9); Platelet Count 290 K/mcL (140-400); Red Blood Count 3.85 M/mcL (3.82-4.97); Red Cell Distribution Width 15.5 % (11.5-14.5); Segmented Neutrophils % 79.6 %
[2017-08-14] MEDS ORDERED: *HR* OxyCODONE/APAP 5/325 TABLET PO ONE (17:05)
[2017-08-14 17:19] LABS: Troponin I < 0.03 ng/mL (< 0.04)
[2017-08-14 17:30] LABS: BUN/Creatinine Ratio 25 (6-26); Blood Urea Nitrogen 11 mg/dL (8-23); Calcium 9.3 mg/dL (8.6-10.3); Carbon Dioxide 24 mEq/L (23-29); Chloride 105 mEq/L (98-107); Glucose 157 mg/dL (70-105); Osmolality,Calculated 293 (280-300); Potassium 3.1 mEq/L (3.5-5.1); Sodium 140 mEq/L (136-145); eGFR For African Americans > 60 (> 60); eGFR For Non-African Americans > 60 (> 60)
[2017-08-14] MEDS ORDERED: Potassium Chloride Elixir 20 MEQ/15 ML UDC PO ONE (17:33)
[2017-08-14 17:49] LABS: Magnesium 1.2 mg/dL (1.6-2.6)
[2017-08-14] MEDS ORDERED: Magnesium Sulfate 2 GM in D5% in Water 100 ML IVPB ONE (18:39)
[2017-08-14] MEDS ORDERED: Levofloxacin 750 MG/150 ML 750 MG/150 ML BAG IVPB ONE (18:56)
[2017-08-14 19:01] LABS: Bilirubin,Urine Moderate (Negative); Blood,Urine Negative (Negative); Clarity,Urine Clear (Clear); Color,Urine Orange (Yellow); Glucose,Urine (UA) Normal (Normal); Ketones,Urine Trace mg/dL (Negative); Leukocyte Esterase,Urine Small (Negative); Nitrite,Urine Positive (Negative); Protein,Urine 100 mg/dL (Neg-Trace); Specific Gravity,Urine > 1.030 (1.010-1.025); Urobilinogen,Urine Normal (Normal)
[2017-08-14 19:07] LABS: RBC,Urine 15-30 per hpf (0-3); Squamous Epithelial Cell,Urine Many per lpf (None-Few); WBC,Urine 15-30 per hpf (0-3)
[2017-08-14] MEDS ORDERED: Ipratropium/Albuterol Neb 3 ML IH ONE (19:13)
[2017-08-14 19:23] LABS: Bacteria,Urine Many per hpf (None-Few); Granular Casts,Urine Few per lpf (None Seen); Hyaline Casts,Urine Moderate per lpf (None-Few); Mucus,Urine Many (Few)
--- NOTE | 2017-08-14 19:23 | Internal Med History&Physical ---
Date of Encounter: 08/14/17 Time of Encounter: 19:16 Internal Medicine - H&P: HPI Chief complaint: Weakness Admitted From: Emergency Dept Plans for Post Hospital Care: Home History of present illness: Ms. Keenan is a 61 year old female with history of COPD on chronic O2, metastatic small cell lung cancer currently not on treatment, hypertension who presents with complaints of shortness of breath and confusion. The family states that she has been increasingly weak. He has been intermittently confused since the morning. There is no focal deficits. She has had a nonproductive cough. She has no chest pain. The patient feels dehydrated and wants water. The patient was discharged from here on 07/31 after hospitalization for weakness and dehydration. She has a history of metastatic small cell lung cancer and has received chemotherapy was recommended hospice. According to the oncology notes from Dr. Beltrán, the patient has requested a second opinion at the [facility] and they also recommended hospice. She received 1 dose of immunotherapy. While on chemo/immunotherapy, the patient has had multiple admissions for COPD exacerbation/pneumonia/dehydration/ weakness. Patient underwent a workup in the ED that showed a potassium of 3.1 and magnesium of 1.2. No Leukocytosis. Urinalysis was indicative of a UTI. The patient received oral potassium, IV fluids bolus, IV Levaquin in the ED. A CT of chest was done which showed disease progression with increased size of metastatic bilateral supraclavicular, mediastinal, right hilar, and bilateral retrocrural lymphadenopathy, hepatic metastasis, and a metastasis of the lateral left sixth rib. There was also diffuse solid nodule in the lungs which appeared to increase in size. There was patchy bronchial secretions bilaterally worse on the right middle and right lower lobes with associated bronchial wall thickening suggestive of bronchitis. The family was made aware of those findings and now want to be enrolled in hospice after d/c. Past Med Surg Social Fam HX - Past Medical History Medical history: cancer, COPD, hypertension Additional medical history: lung cancer Psychiatric history: anxiety, depression - Past Surgical History Surgical History: hysterectomy - Social History Smoking Status: Former smoker Smokeless Tobacco Status: No Alcohol use: none Drug use: none - Family History Sister Adopted: No Family Member Ethnicity: Non- Living Status: Still Living Hx Family Cardiac Disorders: Yes (HTN) Hx Family Respiratory Disorders: No Hx Family Cancer: Yes (Lymphoma) Hx Family GI Disorders: No Hx Family Endocrine Disorder: No Hx Family Neuromuscular Disorders: No Hx Family Neurologic Disorders: No Hx Family HEENT Disorders: No Hx Family Autoimmune Disorders: No Mother Family Member Ethnicity: Non- Living Status: Hx Family Cardiac Disorders: Yes (hypertension,) Hx Family Respiratory Disorders: Yes (COPD) Hx Family Cancer: No Hx Family GI Disorders: No Hx Family Endocrine Disorder: No Hx Family Neuromuscular Disorders: No Hx Family Neurologic Disorders: Yes (Alzheimers) Hx Family HEENT Disorders: No Father Adopted: No Family Member Ethnicity: Non- Living Status: Hx Family Cardiac Disorders: Yes Hx Family Respiratory Disorders: Yes (mother copd) Hx Family Cancer: No Hx Family GI Disorders: No Hx Family Endocrine Disorder: No Hx Family Neuromuscular Disorders: No Hx Family Neurologic Disorders: No Hx Family HEENT Disorders: No Hx Family Autoimmune Disorders: No Internal Medicine - H&P: Meds Trazodone HCl 200 mg PO HS 02/15/16 [History] Albuterol Sulfate [Albuterol Inhaler] 2 puff IH Q6H PRN 10/14/16 [History] Budesonide/Formoterol 160/4.5 [Symbicort 160/4.5] 2 puff IH BIDR 10/14/16 [ History] Oxygen 2 l NS AD 10/14/16 [History] Omeprazole [PriLOSEC] 20 mg PO DAILY@0630 #30 capsule. 06/03/17 [Rx] Albuterol Neb [Proventil Neb] 2.5 mg IH Q2H PRN #120 inhsol 06/08/17 [Rx] Buspirone HCl [Buspar] 15 mg PO BID #60 tablet 06/08/17 [Rx] DULoxetine [Cymbalta] 30 mg PO HS #30 capsule. 06/08/17 [Rx] Metoprolol [Lopressor] 12.5 mg PO BID PRN MDD SEE NOTE 06/13/17 [History] Potassium Chloride [K-Tab ER] 20 meq PO DAILY 06/13/17 [History] Calcium Carbonate [Tums] 1,000 mg PO TID tab.chew 06/16/17 [Rx] Melatonin [Melatin] 3 mg PO HS 06/21/17 [History] Cholecalciferol (D-3) [Vitamin D] 1,000 unit PO DAILY #30 tablet 06/28/17 [Rx] Loratadine [Claritin] 10 mg PO DAILY 7 Days #7 tablet 07/01/17 [Rx] clonazePAM [Klonopin] 0.5 mg PO Q4H PRN 7 Days #28 tablet MDD 6 07/01/17 [Rx] OxyCODONE Immed Rel [Roxicodone 10 MG] 10 mg PO TID PRN 30 Days #90 tab [Rx] Ipratropium/Albuterol Neb [Duoneb] 3 ml IH Q4HR #1 vial.neb 07/15/17 [Rx] Promethazine [Phenergan] 12.5 mg PO Q8HR #24 tablet 07/15/17 [Rx] PredniSONE [Deltasone] 40 mg PO DAILY 12 Days #12 tablet 07/21/17 [Rx] Roflumilast [Daliresp] 250 mcg PO DAILY #30 tablet 07/21/17 [Rx] Tiotropium [place] [Spiriva Respimat] 4 gm IH DAILY 30 Days #120 mist.inhal 05/05 [Rx] GuaiFENesin ER [Mucinex] 600 mg PO BID tbbp.12hr 07/24/17 [Rx] Polyethylene Glycol 3350 [MiraLAX] 17 gm PO DAILY powd.pack 07/24/17 [Rx] Megestrol Acetate [Megace] 800 mg PO DAILY #300 mls 08/07/17 [Rx] Morphine Sulfate [Morphine Oral Solution] 2.5 ml PO Q8H PRN 30 Days #225 ml [Rx] Sucralfate [Carafate] 1 gm PO HS 08/14/17 [History] 3 Allergy/AdvReac Type Severity Reaction Status Date / Time No Known Allergies Allergy Verified 08/14/17 16:34 All Systems PM: A 10-system review of systems was performed and is negative for pertinent findings except as documented above in the HPI. Review of systems: All systems reviewed are negative except for as mentioned above - Constitutional Vitals: Temp Pulse Resp BP Pulse Ox 98.0 F 122 23 104/91 95 08/14/17 16:07 08/14/17 18:45 08/14/17 18:45 08/14/17 18:45 08/14/17 18:45 Exam: GEN: NAD, A/O x2. HEENT: AT, NC, No cyanosis, oral mucosa is moist, No JVD Lymphatics: No lymphadenoapthy Eyes: Extrocular muscles intact, anicteric CVS:RRR. S1, S2, No m/r/g RESP: diminished breath sounds with coarse breath sounds throughout. ABD: Soft, NT, ND, +BS EXT: No edema, No rashes, 2+ DP NEURO: Nonfocal, CN II-XII intact, No focal motor or sensory deficits Psych: Cooperative, Not anxious or depressed Internal Med - H&P Results - Labs CBC & Chem 7: 08/14/17 16:27 08/14/17 16:27 Labs: Short CBC 08/14/17 Range/Units 16:27 WBC 7.7 (4.3-11.1) K/mcL Hgb 10.7 L (11.5-15.4) g/dL Hct 33.8 L (35.3-44.9) % Plt Count 290 (140-400) K/mcL Neutrophils # 6.1 (1.6-8.9) K/mcL BMP 08/14/17 16:27 Sodium 140 Potassium 3.1 L Chloride 105 Carbon Dioxide 24 BUN 11 Creatinine 0.44 L Glucose 157 H Calcium 9.3 Cardiac Enzymes 08/14/17 Range/Units 16:27 Troponin I < 0.03 (< 0.04) ng/mL Urine 08/14/17 Range/Units 18:43 Urine Color Shelly A (Yellow) Urine Clarity Clear (Clear) Urine pH 6.0 (5.0-8.0) pH Units Ur Specific [place] > 1.030 H (1.010-1.025) Urine Protein 100 H (Neg-Trace) mg/dL Urine Glucose (UA) Normal (Normal) mg/dL - ABG Interpretation ABG results: 08/14/17 16:57 VBG pH 7.51 H VBG pCO2 30 L VBG pO2 190 H VBG HCO3 24 - Impressions ITS Impressions Chest CTA 08/14/17 16:18 IMPRESSION: 1. No findings of pulmonary embolism. 2. Disease progression with increased size of metastatic bilateral supraclavicular, mediastinal, right hilar, and bilateral retrocrural lymphadenopathy; hepatic metastases; and a metastasis of the lateral left 6th rib. A few solid nodules in the lungs appear increased in size, suggesting pulmonary metastases. Additionally, incompletely included soft tissue density along the course the pancreas and splenic vessels is also consistent with metastatic disease, potentially lymphadenopathy. 3. Similar appearance of the infiltrative primary malignancy in the right hilum, resulting and partial occlusion of the right middle and right lower lobe bronchi. 4. Patchy bronchial secretions bilaterally but worst in the right middle and right lower lobes with associated bronchial wall thickening, suggesting bronchitis. 5. Persistent infectious bronchiolitis most prominent near the bases. 6. Additional incidental findings as above for which no follow-up is recommended. RECOMMENDATIONS: Managing Incidental Thyroid Nodule Detected at CT or MRI or US 1. Further evaluation by thyroid Ultrasound recommended for these incidental nodules: Patient Age 35 years or more - Nodule 1.5 cm in size or greater 3. NO further imaging is recommended in the following scenarios - Any nodule not meeting above criteria. - Those patients with limited life expectancy or significant comorbidities. Note: These recommendations do not apply to pts. w/ increased risk for thyroid cancer or pts. with symptomatic thyroid disease. Recommendations for f/u of Incidental Thyroid Nodules (ITN) found on CT, MR, NM and Extrathyroidal US are based upon the ACR white paper and [place] 3-tiered system for managing ITNs: J Am Leatha Radiol. 2015 Mar;12(2): 143-50 D/ / Srinivas Vergara MD / Srinivas Vergara MD Interpreting Provider: Srinivas Vergara MD - Assessment and plan (1) Confusion Current Visit: No Status: Resolved Assessment and plan: Likely multifactorial with worsening metastatic disease and infectious. Underlying infectious causes as below. Patient plans on enrolling hospice tomorrow (2) UTI (urinary tract infection) Current Visit: Yes Status: Acute Assessment and plan: Continue IV Levaquin. Qualifiers: Urinary tract infection type: site unspecified Hematuria presence: without hematuria Qualified Code(s): N39.0 - Urinary tract infection, site not specified (3) Bronchitis Current Visit: Yes Status: Acute Assessment and plan: Continue Levaquin. We will check sputum cultures. (4) Hypokalemia Current Visit: Yes Status: Acute Assessment and plan: Given oral potassium. We will check labs in the morning. (5) HTN (hypertension) Current Visit: No Status: Chronic Assessment and plan: Resume oral meds hypertensive Qualifiers: Hypertension type: essential hypertension Qualified Code(s): I10 - Essential (primary) hypertension (6) Metastatic lung cancer (metastasis from lung to other site) Current Visit: No Status: Chronic Assessment and plan: Seems to have worsened disease. They are aware of CT findings. They will be enrolling in hospice once discharged. Qualifiers: Laterality: unspecified laterality Qualified Code(s): C34.90 - Malignant neoplasm of unspecified part of unspecified bronchus or lung (7) DVT prophylaxis Current Visit: No Status: Acute Assessment and plan: Heparin subcutaneous - Time Spent With Patient Total time spent is greater than 50% in coordination of care (as documented) at patient's floor/unit and/or counseling patient:
[2017-08-14] MEDS ORDERED: *HR* Morphine Soln 10 MG/5 ML UDC PO PRN ×3 (20:05→20:45)
[2017-08-14] MEDS ORDERED: Ondansetron 4 MG/2 ML VIAL IVP PRN (20:05)
[2017-08-14] MEDS ORDERED: clonazePAM 0.5 MG TABLET PO PRN (20:05)
[2017-08-14] MEDS ORDERED: Sucralfate 1 GM TABLET PO SCH (21:00)
[2017-08-14] MEDS ORDERED: Melatonin 3 MG TABLET PO SCH (21:00)
[2017-08-14] MEDS ORDERED: traZODone 50 MG TABLET PO SCH (21:00)
[2017-08-14] MEDS: *HR* Heparin 5,000 UNIT/ML VIAL SQ SCH (22:05)
[2017-08-14] MEDS: 0.9 % Sodium Chloride 1,000 ML IVC SCH (22:05)
[2017-08-14] MEDS: Budesonide/Formoterol 160/4.5 MDI IH SCH (23:19)
[2017-08-14] MEDS: Ipratropium/Albuterol Neb 3 ML IH SCH (23:19)
[2017-08-15] MEDS: Ipratropium/Albuterol Neb 3 ML IH SCH ×3 (03:53→11:30)
[2017-08-15 05:52] LABS: Basophils % 0.2 %; Eosinophils # 0.1 K/mcL (0.0-0.6); Eosinophils % 1.9 %; Hematocrit 29.1 % (35.3-44.9); Hemoglobin 9.2 g/dL (11.5-15.4); Immature Granulocytes % 0.9 % (0-4); Lymphocytes # 0.8 K/mcL (0.6-4.6); Lymphocytes % 14.1 %; Mean Corpuscular HGB Conc 31.6 g/dL (31.6-35.5); Mean Corpuscular Volume 88.4 fL (83.0-100.0); Mean Platelet Volume 9.5 fL (9.4-12.4); Monocytes # 0.4 K/mcL (0.0-1.3); Monocytes % 7.1 %; Neutrophils # 4.5 K/mcL (1.6-8.9); Platelet Count 257 K/mcL (140-400); Red Blood Count 3.29 M/mcL (3.82-4.97); Red Cell Distribution Width 15.5 % (11.5-14.5); Segmented Neutrophils % 75.8 %
[2017-08-15] MEDS: *HR* Heparin 5,000 UNIT/ML VIAL SQ SCH ×2 (06:06→14:16)
[2017-08-15 06:18] LABS: BUN/Creatinine Ratio 19 (6-26); Blood Urea Nitrogen 6 mg/dL (8-23); Calcium 8.1 mg/dL (8.6-10.3); Carbon Dioxide 22 mEq/L (23-29); Chloride 109 mEq/L (98-107); Glucose 95 mg/dL (70-105); Magnesium 1.6 mg/dL (1.6-2.6); Osmolality,Calculated 285 (280-300); Potassium 3.1 mEq/L (3.5-5.1); Sodium 139 mEq/L (136-145); eGFR For African Americans > 60 (> 60); eGFR For Non-African Americans > 60 (> 60)
[2017-08-15] MEDS: Budesonide/Formoterol 160/4.5 MDI IH SCH (07:19)
[2017-08-15] MEDS: 0.9 % Sodium Chloride 1,000 ML IVC SCH (08:28)
[2017-08-15] MEDS ORDERED: Megestrol Acetate 400 MG/10 ML UDC PO SCH (09:00)
[2017-08-15] MEDS ORDERED: Loratadine 10 MG TABLET PO SCH (09:00)
[2017-08-15] MEDS ORDERED: Cholecalciferol (D-3) 1,000 UNIT TABLET PO SCH (09:00)
[2017-08-15] MEDS ORDERED: (Roflumilast [Daliresp] 250 MCG) PO SCH (09:00)
[2017-08-15] MEDS ORDERED: Albuterol 2.5 MG/3 ML NEBULIZER IH PRN (09:57)
--- NOTE | 2017-08-15 10:56 | Palliative - Consult Note ---
Date of Encounter: 08/15/17 Time of Encounter: 10:20 - Assessment and Plan (1) Shortness of breath Current Visit: No Status: Acute Assessment and plan: Patient will be going home. Home Oxygen already in place. reports they have a full bottle of Roxanol there [facility] by [facility]. (2) COPD (chronic obstructive pulmonary disease) Current Visit: No Status: Chronic Qualifiers: COPD type: unspecified COPD Qualified Code(s): J44.9 - Chronic obstructive pulmonary disease, unspecified (3) Anxiety Current Visit: No Status: Chronic Assessment and plan: Continue Clonazepam as previously ordered. 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 reports having a good bit of this left - will let hospice evaluate her usage and remainder of drug left at home. I will not be writing any prescriptions here prior to discharge. (6) Advance care planning Current Visit: Yes Status: Acute Assessment and plan: Met with pt and Carlos. Discussed clinical status and goals of care. Patient understands that prognosis is poor, and little else can be done other than focusing on comfort care and emotional/psychosocial support. Discussed how hospice can assist in these areas. She is agreeable to hospice referral and desires to go home today. Re-discussed code status, and she transitioned to DNRCC - state form complete and copies provided to family. Referral called to Amparo at [facility] - hospice did actually visit pt at home last week and gave them information. D/W Dr. Juliano Pepe - pt may be discharged and [facility] will enroll pt this afternoon. Palliative-CN HPI - Data of Consult Requesting Physician: Juliano Pepe DO Primary Care Provider: Ron Ward MD - Consult Narrative History of present illness: Ms. Keenan is a 61 year old female well known to the palliative care team from previous visits who was admitted with increasing weakness and intermittent confusion. PMH includes : COPD and HTN. She has long history of metastatic lung cancer with mets. She is patient of [facility], and has exhausted treatments for her cancer. She also had consultation with the [facility] within the last couple of months, who also did not have further treatment left to offer here. She has been very reluctant to enroll into hospice, even with multiple discussions. They have been raising a 12 yr old grandson, and this has been the focus of most of her decisions. She was + for urinary infection and continues with antibiotics to treat. Her CT chest performed upon admission with extensive progression of disease, and after this information provided to them, she is now desiring enrollment into hospice care. Upon my visit, she is resting quietly in bed, Carlos at bedside. She denies any pain/discomfort,, however, does have dyspnea at rest now. Appetite has been poor, and she has been getting IV fluids at home with [facility] for dehydration. Weakness is increasing. Occasional nausea and vomiting. Denies constipation. CC: Juliano Pepe, DO Past Med Surg Social Fam HX - Past Medical History Medical history: cancer, COPD, hypertension Additional medical history: lung cancer Psychiatric history: anxiety, depression - Past Surgical History Surgical History: hysterectomy - Social History Smoking Status: Former smoker Smokeless Tobacco Status: No Alcohol use: none Drug use: none - Family History Sister Adopted: No Family Member Ethnicity: Non- Living Status: Still Living Hx Family Cardiac Disorders: Yes (HTN) Hx Family Respiratory Disorders: No Hx Family Cancer: Yes (Lymphoma) Hx Family GI Disorders: No Hx Family Endocrine Disorder: No Hx Family Neuromuscular Disorders: No Hx Family Neurologic Disorders: No Hx Family HEENT Disorders: No Hx Family Autoimmune Disorders: No Mother Family Member Ethnicity: Non- Living Status: Hx Family Cardiac Disorders: Yes (hypertension,) Hx Family Respiratory Disorders: Yes (COPD) Hx Family Cancer: No Hx Family GI Disorders: No Hx Family Endocrine Disorder: No Hx Family Neuromuscular Disorders: No Hx Family Neurologic Disorders: Yes Hx Family HEENT Disorders: No Father Adopted: No Family Member Ethnicity: Non- Living Status: Hx Family Cardiac Disorders: Yes Hx Family Respiratory Disorders: Yes (mother copd) Hx Family Cancer: No Hx Family GI Disorders: No Hx Family Endocrine Disorder: No Hx Family Neuromuscular Disorders: No Hx Family Neurologic Disorders: No Hx Family HEENT Disorders: No Hx Family Autoimmune Disorders: No Medications and Allergies Trazodone HCl 200 mg PO HS 02/15/16 [History] Albuterol Sulfate [Albuterol Inhaler] 2 puff IH Q6H PRN 10/14/16 [History] Budesonide/Formoterol 160/4.5 [Symbicort 160/4.5] 2 puff IH BIDR 10/14/16 [ History] Oxygen 2 l NS AD 10/14/16 [History] Omeprazole [PriLOSEC] 20 mg PO DAILY@0630 #30 capsule. 06/03/17 [Rx] Albuterol Neb [Proventil Neb] 2.5 mg IH Q2H PRN #120 inhsol 06/08/17 [Rx] Buspirone HCl [Buspar] 15 mg PO BID #60 tablet 06/08/17 [Rx] DULoxetine [Cymbalta] 30 mg PO HS #30 capsule. 06/08/17 [Rx] Metoprolol [Lopressor] 12.5 mg PO BID PRN MDD SEE NOTE 06/13/17 [History] Potassium Chloride [K-Tab ER] 20 meq PO DAILY 06/13/17 [History] Calcium Carbonate [Tums] 1,000 mg PO TID tab.chew 06/16/17 [Rx] Melatonin [Melatin] 3 mg PO HS 06/21/17 [History] Cholecalciferol (D-3) [Vitamin D] 1,000 unit PO DAILY #30 tablet 06/28/17 [Rx] Loratadine [Claritin] 10 mg PO DAILY 7 Days #7 tablet 07/01/17 [Rx] clonazePAM [Klonopin] 0.5 mg PO Q4H PRN 7 Days #28 tablet MDD 6 07/01/17 [Rx] OxyCODONE Immed Rel [Roxicodone 10 MG] 10 mg PO TID PRN 30 Days #90 tab [Rx] Ipratropium/Albuterol Neb [Duoneb] 3 ml IH Q4HR #1 vial.neb 07/15/17 [Rx] Promethazine [Phenergan] 12.5 mg PO Q8HR #24 tablet 07/15/17 [Rx] PredniSONE [Deltasone] 40 mg PO DAILY 12 Days #12 tablet 07/21/17 [Rx] Roflumilast [Daliresp] 250 mcg PO DAILY #30 tablet 07/21/17 [Rx] Tiotropium [place] [Spiriva Respimat] 4 gm IH DAILY 30 Days #120 mist.inhal 05/05 [Rx] GuaiFENesin ER [Mucinex] 600 mg PO BID tbbp.12hr 07/24/17 [Rx] Polyethylene Glycol 3350 [MiraLAX] 17 gm PO DAILY powd.pack 07/24/17 [Rx] Megestrol Acetate [Megace] 800 mg PO DAILY #300 mls 08/07/17 [Rx] Morphine Sulfate [Morphine Oral Solution] 2.5 ml PO Q8H PRN 30 Days #225 ml [Rx] Sucralfate [Carafate] 1 gm PO HS 08/14/17 [History] levoFLOXacin [Levaquin] 500 mg PO DAILY #4 tablet 08/15/17 [Rx] 3 Allergy/AdvReac Type Severity Reaction Status Date / Time No Known Allergies Allergy Verified 08/14/17 16:34 ROS unobtainable: due to endotracheal tube (poor appetite, nausea, dyspnea with any exertion, increasing weakness) Palliative Care-Exam - Constitutional Vitals: Temp Pulse Resp BP Pulse Ox 98.1 F 113 18 129/78 97 08/15/17 09:52 08/15/17 09:52 08/15/17 10:18 08/15/17 09:52 08/15/17 10:18 General appearance: Present: no acute distress - Head Head Exam: Present: normal inspection, normocephalic - Eye Eye exam: Present: normal appearance, PERRL - Respiratory Additional comments: Decreased breath sounds throughout, course with occasional rhonchi noted - Cardiovascular Cardiovascular exam: Present: +S1, +S2 - GI/Abdominal Exam GI/Abdominal exam: Present: normal bowel sounds, soft - Extremities Exam Extremities exam: Present: normal capillary refill, normal inspection - Neurological Exam Neurological exam: Present: alert, oriented X3, strengths equal and symetr throughout - Psychiatric Psychiatric exam: Present: normal mood - Skin Skin exam: Present: dry, pallor, warm Internal Medicine - CN: Reslt - Labs CBC & Chem 7: 08/15/17 05:39 08/15/17 05:39 Labs: Short CBC 08/15/17 Range/Units 05:39 WBC 5.9 (4.3-11.1) K/mcL Hgb 9.2 L D (11.5-15.4) g/dL Hct 29.1 L (35.3-44.9) % Plt Count 257 (140-400) K/mcL Neutrophils # 4.5 (1.6-8.9) K/mcL BMP 08/15/17 05:39 Sodium 139 Potassium 3.1 L Chloride 109 H Carbon Dioxide 22 L BUN 6 L Creatinine 0.32 L Glucose 95 Calcium 8.1 L Consult Discharge Plan - Plan Referrals: Ron Ward MD [Primary Care Provider] - Prescriptions: levoFLOXacin [Levaquin] 500 mg PO DAILY #4 tablet Palliative Quality Palliative Quality: Screen for Code Status: Yes, Screen for Goals of Care: Yes, Screen for Pain: Yes, If Pain Regimen Started, Initiate Bowel Regimen: Yes, Screen for Nausea/Vomitting: Yes
--- NOTE | 2017-08-15 10:58 | Discharge Summary ---
- NOTES TO OUTPATIENT PROVIDER Notes to Outpatient Provider: Pt admitted with increasing dyspnea and confusion. She was found to have UTI. She has elected to enroll in hospice at discharge. Date of Encounter: 08/15/17 Time of Encounter: 10:30 - Discharge Diagnosis (1) UTI (urinary tract infection) Priority: Primary Status: Acute Qualifiers: Urinary tract infection type: acute cystitis Hematuria presence: without hematuria Qualified Code(s): N30.00 - Acute cystitis without hematuria (2) HTN (hypertension) Priority: Secondary Status: Chronic Qualifiers: Hypertension type: essential hypertension Qualified Code(s): I10 - Essential (primary) hypertension (3) Hypokalemia Priority: Secondary Status: Resolved (4) Metastatic lung cancer (metastasis from lung to other site) Priority: Secondary Status: Chronic Qualifiers: Laterality: unspecified laterality Qualified Code(s): C34.90 - Malignant neoplasm of unspecified part of unspecified bronchus or lung (5) Confusion Priority: Secondary Status: Resolved (6) Bronchitis Priority: Secondary Status: Acute Hospital course: Ms. Keenan is a 61 year old female with hx of metastatic lung cancer presented to ED with confusion and dyspnea. Was found to have bronchitis and UTI. She was subsequently placed in hospital. Ms Keenan was admitted to med surg. She was started on IV abx and aerosols. She had improvement in her mentation. At this time she has elected to enroll in hospice at discharge. Palliative care consulted to make arrangements. At this time she is comfortable and ready for d/c home. Will complete abx for UTI. Discharge discussed with: patient, family - Time Spent with Patient Total time spent providing and/or coordinating discharge services: - Discharge Medications Prescriptions: levoFLOXacin [Levaquin] 500 mg PO DAILY #4 tablet Home Medications: Trazodone HCl 200 mg PO HS 02/15/16 [History] Albuterol Sulfate [Albuterol Inhaler] 2 puff IH Q6H PRN 10/14/16 [History] Budesonide/Formoterol 160/4.5 [Symbicort 160/4.5] 2 puff IH BIDR 10/14/16 [ History] Oxygen 2 l NS AD 10/14/16 [History] Omeprazole [PriLOSEC] 20 mg PO DAILY@0630 #30 capsule.dr 06/03/17 [Rx] Albuterol Neb [Proventil Neb] 2.5 mg IH Q2H PRN #120 inhsol 06/08/17 [Rx] Buspirone HCl [Buspar] 15 mg PO BID #60 tablet 06/08/17 [Rx] DULoxetine [Cymbalta] 30 mg PO HS #30 capsule. 06/08/17 [Rx] Metoprolol [Lopressor] 12.5 mg PO BID PRN MDD SEE NOTE 06/13/17 [History] Potassium Chloride [K-Tab ER] 20 meq PO DAILY 06/13/17 [History] Calcium Carbonate [Tums] 1,000 mg PO TID tab.chew 06/16/17 [Rx] Melatonin [Melatin] 3 mg PO HS 06/21/17 [History] Cholecalciferol (D-3) [Vitamin D] 1,000 unit PO DAILY #30 tablet 06/28/17 [Rx] Loratadine [Claritin] 10 mg PO DAILY 7 Days #7 tablet 07/01/17 [Rx] clonazePAM [Klonopin] 0.5 mg PO Q4H PRN 7 Days #28 tablet MDD 6 07/01/17 [Rx] OxyCODONE Immed Rel [Roxicodone 10 MG] 10 mg PO TID PRN 30 Days #90 tab [Rx] Ipratropium/Albuterol Neb [Duoneb] 3 ml IH Q4HR #1 vial.neb 07/15/17 [Rx] Promethazine [Phenergan] 12.5 mg PO Q8HR #24 tablet 07/15/17 [Rx] PredniSONE [Deltasone] 40 mg PO DAILY 12 Days #12 tablet 07/21/17 [Rx] Roflumilast [Daliresp] 250 mcg PO DAILY #30 tablet 07/21/17 [Rx] Tiotropium [place] [Spiriva Respimat] 4 gm IH DAILY 30 Days #120 mist.inhal 05/05 [Rx] GuaiFENesin ER [Mucinex] 600 mg PO BID tbbp.12hr 07/24/17 [Rx] Polyethylene Glycol 3350 [MiraLAX] 17 gm PO DAILY powd.pack 07/24/17 [Rx] Megestrol Acetate [Megace] 800 mg PO DAILY #300 mls 08/07/17 [Rx] Morphine Sulfate [Morphine Oral Solution] 2.5 ml PO Q8H PRN 30 Days #225 ml [Rx] Sucralfate [Carafate] 1 gm PO HS 08/14/17 [History] levoFLOXacin [Levaquin] 500 mg PO DAILY #4 tablet 08/15/17 [Rx] Allergies/Adverse Reactions: 3 Allergy/AdvReac Type Severity Reaction Status Date / Time No Known Allergies Allergy Verified 08/14/17 16:34 Date of admission: 08/14/17 21:58 Primary care physician: Ron Ward MD Consults: 08/15/17 07:02 Consult to [place] Equipment Repairer [CONS] Routine Reason for SW Consult: Hospice consult 08/15/17 08:00 Consult to Palliative Care [CONS] Routine Comment: Consulting Provider: Palliative Care Ness Reason for Consult: Metastatic lung cancer. Hospice ready now. Time Notified: 08:00 Call Completed: Yes Discharging clinician: Juliano Pepe Anticipated date of discharge: 08/15/17 - Constitutional Vitals: Temp Pulse Resp BP Pulse Ox 98.1 F 113 18 129/78 97 08/15/17 09:52 08/15/17 09:52 08/15/17 10:18 08/15/17 09:52 08/15/17 10:18 General appearance: Present: A&O X 3, pleasant, answers questions appropriately - Head Head exam: Present: normocephalic - Eye Eye exam: Present: conjuntiva pink - ENT ENT exam: Present: mucous membranes dry - Respiratory Respiratory exam: Present: rhonchi, wheezes - Cardiovascular Cardiovascular exam: Present: RRR, tachycardia - GI/Abdominal GI/Abdominal exam: Present: soft. Absent: tenderness - Extremities Exam Extremities exam: Present: warm. Absent: pedal edema, tenderness - Neurological Exam Neurological exam: Present: alert, oriented X3 - Skin Skin exam: Present: dry, warm - Patient Status Disposition: Hospice - Home Condition: Fair Functional capacity at discharge: uses cane/walker Overall status at discharge: other (Poor status and condition) - Discharge Instructions Instructions: Hospice Care (GEN) Follow Up With: Ron Ward MD [Primary Care Provider] - Forms: ED Satisfaction Letter - Diet and Activity Activity: increase activity as tolerated, wear oxygen at all times Diet: advance to your usual diet
--- NOTE | 2017-08-15 11:13 | Physician Discharge Referral ---
Home Health/Hosp Referral Info Transfer to: Hospice Provider in Charge Post Discharge: Card Hand - Diagnosis (1) UTI (urinary tract infection) Priority: Primary Status: Acute (2) HTN (hypertension) Priority: Secondary Status: Chronic (3) Hypokalemia Priority: Secondary Status: Resolved (4) Metastatic lung cancer (metastasis from lung to other site) Priority: Secondary Status: Chronic (5) Confusion Priority: Secondary Status: Resolved (6) Bronchitis Priority: Secondary Status: Acute - Respiratory Orders Oxygen / L per min (As before admit) Smoking Cessation: Smoking cessation has been advised. For more information, call the [place] Tobacco Quit Line at 2-216-TNJT-NOW. - Diet/Nutrition Diet/Nutrition Orders: Regular - Activity Activity Orders: Up ad em - Services Needed Following services are medically necessary services: Nursing, Home Health Aide - Transfer Medications Prescriptions: levoFLOXacin [Levaquin] 500 mg PO DAILY #4 tablet Home Medications: Trazodone HCl 200 mg PO HS 02/15/16 [History] Albuterol Sulfate [Albuterol Inhaler] 2 puff IH Q6H PRN 10/14/16 [History] Budesonide/Formoterol 160/4.5 [Symbicort 160/4.5] 2 puff IH BIDR 10/14/16 [ History] Oxygen 2 l NS AD 10/14/16 [History] Omeprazole [PriLOSEC] 20 mg PO DAILY@0630 #30 capsule. 06/03/17 [Rx] Albuterol Neb [Proventil Neb] 2.5 mg IH Q2H PRN #120 inhsol 06/08/17 [Rx] Buspirone HCl [Buspar] 15 mg PO BID #60 tablet 06/08/17 [Rx] DULoxetine [Cymbalta] 30 mg PO HS #30 capsule. 06/08/17 [Rx] Metoprolol [Lopressor] 12.5 mg PO BID PRN MDD SEE NOTE 06/13/17 [History] Potassium Chloride [K-Tab ER] 20 meq PO DAILY 06/13/17 [History] Calcium Carbonate [Tums] 1,000 mg PO TID tab.chew 06/16/17 [Rx] Melatonin [Melatin] 3 mg PO HS 06/21/17 [History] Cholecalciferol (D-3) [Vitamin D] 1,000 unit PO DAILY #30 tablet 06/28/17 [Rx] Loratadine [Claritin] 10 mg PO DAILY 7 Days #7 tablet 07/01/17 [Rx] clonazePAM [Klonopin] 0.5 mg PO Q4H PRN 7 Days #28 tablet MDD 6 07/01/17 [Rx] OxyCODONE Immed Rel [Roxicodone 10 MG] 10 mg PO TID PRN 30 Days #90 tab [Rx] Ipratropium/Albuterol Neb [Duoneb] 3 ml IH Q4HR #1 vial.neb 07/15/17 [Rx] Promethazine [Phenergan] 12.5 mg PO Q8HR #24 tablet 07/15/17 [Rx] PredniSONE [Deltasone] 40 mg PO DAILY 12 Days #12 tablet 07/21/17 [Rx] Roflumilast [Daliresp] 250 mcg PO DAILY #30 tablet 07/21/17 [Rx] Tiotropium [place] [Spiriva Respimat] 4 gm IH DAILY 30 Days #120 mist.inhal 05/05 [Rx] GuaiFENesin ER [Mucinex] 600 mg PO BID tbbp.12hr 07/24/17 [Rx] Polyethylene Glycol 3350 [MiraLAX] 17 gm PO DAILY powd.pack 07/24/17 [Rx] Megestrol Acetate [Megace] 800 mg PO DAILY #300 mls 08/07/17 [Rx] Morphine Sulfate [Morphine Oral Solution] 2.5 ml PO Q8H PRN 30 Days #225 ml [Rx] Sucralfate [Carafate] 1 gm PO HS 08/14/17 [History] levoFLOXacin [Levaquin] 500 mg PO DAILY #4 tablet 08/15/17 [Rx] Allergies/Adverse Reactions: 3 Allergy/AdvReac Type Severity Reaction Status Date / Time No Known Allergies Allergy Verified 08/14/17 16:34 Certification: Further, I certify that my clinical findings support that this patient is homebound (i.e. absences from home require considerable and taxing effort and are for medical reasons or scientologist services or infrequently or short duration when for other reasons) because: Homebound Reason: Patient requires assistance of a person or device to safely leave home, Leaving home requires considerable and taxing effort due to condition, Severity of cardiac or pulmonary status limits activity tolerance Attestation: My signature below is to certify that this patient is under my care and that I, or nurse practitioner, or a physician's corporate law assistant working with me, has a face-to -face encounter with this patient.
--- NOTE | 2017-08-15 13:19 | Event Note ---
Date of Encounter: 08/15/17 Time of Encounter: 13:17 Hospice medical education manager certification of terminal illness: Hospice benefit. Start: 08/15/2017 Hospice benefit. In: +90 days Palliative performance scale: 30% History: Patient well known to the palliative care service, the static small cell lung cancer who has zoster all treatments including chemoradiation and immune therapy. He should have has now arrived at the conclusion that hospice is her best treatment option as there are no further aggressive treatments available for her at all. She does have metastases to the liver bone and widely throughout the lungs. As there is no further aggressive care and this cancer has spread despite the aggressive care, that was tried I believe that These findings support a life expectancy of 6 months or less. I attest that I have compose the above narrative based on my review of the patient's medical records, and or on my examination of the patient. Zander Blanchard M.D. Associate nuclear medical tech. [facility]
[2017-08-15 14:14] VITALS: BP 121/76
--- NOTE | 2017-08-15 16:45 | Electrocardiograph Report ---
[place] [id number] Test Date: 2017-08-14 Pat Name: Domi Keenan Department: 103 Room: 3A42 Gender: F Intranet Support: RANDA : 1955 Requested By: Bola Vivas Order Number: [id number] Reading MD: Alexa Gama Measurements Intervals [place] Rate: 131 P: 65 MS: 140 QRS: -41 QRSD: 70 T: 70 QT: 279 QTc: 356 Interpretive Statements SINUS TACHYCARDIA LEFT AXIS DEVIATION [QRS AXIS < -30] Electronically Signed On 08-15-2017 16:44:20 EDT by Alexa Gama
[2017-08-15] MEDS ORDERED: Levofloxacin 750 MG/150 ML 750 MG/150 ML BAG IVPB SCH (18:00)
== END 2017-08-15 14:55 | disposition hospice, home (50) ==
LOC: 3ANU 16:01 → EMEROO 16:01 → 3ANU 20:35 → SUATTDRO 21:58 → 3ANU 08-15 09:16
PROVIDERS: ADMIT Internal Medicine Nephrology; ATTEND Internal Medicine